=== PATIENT | male | born 1970 | race Caucasian/White ===

== ENCOUNTER 2025-02-08 22:55 | Emergency (ER) | payer OTHER, MEDICARE, SELFPAY ==
[2025-02-08] VITALS (7 sets, daily range): BP systolic 153; BP diastolic 82; PULSE 93–103; TEMP 36.3; O2SAT 96–100; BMI 44.3
--- NOTE | 2025-02-08 23:11 | ECG_ITS ---
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 Measurements Intervals [place] Rate: 100 P: 50 AK: 188 QRS: 84 QRSD: 104 T: -80 QT: 362 QTc: 419 Interpretive Statements 1120 Sinus tachycardia [address] depression 4664 Twave abnormality, possible inferolateral ischemia 9150 abnormal ECG No previous ECG available for comparison Electronically Signed On 02-09-2025 19:23:23 EDT by SHANNAN HORTON M.D.
--- NOTE | 2025-02-08 23:28 | ED_ITS ---
HPI - Chest Pain General Chief Complaint: Chest Pain Stated Complaint: CHEST PAIN Time Seen by Provider: 02/08/25 23:24 Source: patient Mode of arrival: Wheelchair Limitations: no limitations History of Present Illness HPI narrative: past history of IDDM CAD s/p stent placement and peritoneal dialysis. Developed chest pain around 7pm. Pain associated with nausea and dyspnea. Took NTG SL and chest pain improved. Still feels little short of breath. No weakness or abdominal pain Related Data Home Medications ?Medication ?Instructions ?Recorded ?Confirmed apixaban 5 mg tablet (Eliquis) mg 02/09/25 atorvastatin 80 mg tablet mg 02/09/25 buspirone 15 mg tablet mg 02/09/25 ferric citrate 210 mg iron tablet 02/09/25 (Auryxia) furosemide 80 mg tablet mg 02/09/25 hydralazine 50 mg tablet mg 02/09/25 meclizine 25 mg tablet mg 02/09/25 metoprolol succinate 100 mg mg PO 02/09/25 tablet,extended release 24 hr nitroglycerin 0.4 mg sublingual mg 02/09/25 tablet octreotide,microspheres 30 mg mg IM 02/09/25 intramuscular susp, extended release (Sandostatin [place]) Allergies Allergy/AdvReac Type Severity Reaction Status Date / Time ketorolac (From Toradol) Allergy Severe Unknown Verified 02/08/25 23:17 lisinopril AdvReac Mild Cough Verified 02/08/25 23:17 Review of Systems ROS Status of ROS 10 or more systems reviewed and unremark able except as noted in history and below [facility] Medical History (Updated 02/09/25 @ 10:19 by Jennyfer Gabriel RN) Coronary artery disease ?I25.10 - Atherosclerotic heart disease of [place] coronary artery without angina pectoris (ICD-10) Diabetes ?E11.9 - Type 2 diabetes mellitus without complications (ICD-10) Chronic kidney disease ?N18.9 - Chronic kidney disease, unspecified (ICD-10) Social History Little interest or pleasure in doing things: not at all Feeling down, depressed, or hopeless: not at all Exam Constitutional Vital Signs, click to edit/add: Last Vital Signs Temp 97.4 F L 02/08/25 23:05 Pulse 85 02/09/25 16:00 Resp 20 02/09/25 16:00 BP 123/75 02/09/25 11:12 Pulse Ox 98 02/09/25 11:12 O2 Del Method Room Air 02/09/25 11:12 O2 Flow Rate 2 02/09/25 00:53 Common normals: no apparent distress, average body habitus, oriented x3, no limitations, healthy appearing, alert and well nourished [facility] Common normals: normocephalic and head/scalp atraumatic Eye Common normals: PERRL, EOMs intact bilaterally and conjunctivae normal Respiratory Common normals: normal respiratory effort, no retractions, no use of accessory muscles and clear to auscultation bilaterally Cardio Common normals: regular rate, regular rhythm, S1 normal heart sound and S2 normal heart sound GI Common normals: Normal to inspection, nondistended, normoactive bowel sounds present and soft to palpation Extremity Common normals: normal to inspection and full ROM Neuro Common normals: oriented x3, CN's II-XII intact bilaterally and moves all extremities Psych Appearance: grossly normal Course Vital Signs Vital signs: Vital Signs Pulse Oximetry 96 02/08/25 23:03 Temperature 97.4 F L 02/08/25 23:05 Pulse Rate 85 02/09/25 16:00 Respiratory Rate 20 02/09/25 16:00 Blood Pressure 123/75 02/09/25 11:12 Pulse Oximetry 98 02/09/25 11:12 Oxygen Delivery Method Room Air 02/09/25 11:12 Oxygen Delivery Flow Rate 2 02/09/25 00:53 MDM - Chest Pain MDM Narrative Medical decision making narrative: patient with past history of CAD and risk factors to include diabetes and renal failure. Currently home peritoneal dialysis. Tonight developed chest pain associated with dyspnea and nausea. Took nitro SL and arrived with resolution of chest pain and nausea. Was still little short of breath. Admits he only perform his peritoneal dialysis 3 times yesterday instead of the usual 4 times because he did not feel well. cxray with mild-mod. vascular congestion. EKG NSR with 1mm ST depression inferior leads. creat 7.2 and first troponin 160. patient's BS 549. treated with 12U Novolog SQ. repeat troponin at 3 hr over 5000. Patient remains asymptomatic and is no longer feeling short of breath. Cardiology paged to arrange transfer for NSTEMI Lab Data Labs: Lab Results 02/08/25 02/09/2502/09/25 Range/Units 23:15 01:34 02:11 WBC 10.7 (4.0-11.0) 10^3/uL RBC 3.89 L (4.70-6.10) 10^6/uL Hgb 11.3 L (14.0-18.0) g/dL Hct 36.6 L (42.0-54.0) % MCV 94.1 H (80.0-94.0) fL MCH 29.0 (25.9-34.0) pg MCHC 30.9 (29.9-35.2) g/dL RDW 20.3 H (11.0-15.0) % Plt Count 239 (150-450) 10^3/uL MPV 10.0 (9.5-13.5) fL Seg Neuts % (Manual) 97.0 H (43.0-75.0) Lymphocytes % (Manual) 1.0 L (20.5-60.0) % Monocytes % (Manual) 1.0 L (1.7-12.0) % Eosinophils % (Manual) 1.0 (0.9-7.0) % Basophils % (Manual) 0.0 L (0.2-2.0) % Neutrophils # (Manual) 10.37 H (1.4-6.5) 10^3/uL Lymphocytes # (Manual) 0.10 L (1.20-3.80) 10^3/uL Monocytes # (Manual) 0.10 L (0.30-0.80) 10^3/uL Eosinophils # (Manual) 0.10 (0.00-0.70) 10^3/uL Basophils # (Manual) 0.00 (0.00-0.10) 10^3/uL PT 10.9 (9.0-11.6) sec INR 1.03 APTT 33.8 (22.3-36.2) sec PTT (Heparin Absorb) (43.5-61.5) sec Sodium 132 L (136-145) mmol/L Potassium 4.3 (3.5-5.1) mmol/L Chloride 95 L (98-107) mmol/L Carbon Dioxide 23.1 (21.0-32.0) mmol/L Anion Gap 18.2 BUN 57.0 H (7.0-18.0) mg/dL Creatinine 7.02 H* (0.70-1.30) mg/dL Est GFR ( Amer) 10 L (>=60 mL/min/1.73m^2) Est GFR (Non-Af Amer) 8 L (>=60 mL/min/1.73m^2) BUN/Creatinine Ratio 8.1 Glucose 549 H* (74-106) mg/dL Calcium 8.9 (8.5-10.1) mg/dL Troponin I High Sens 160.1 H* 5583.4 H* (4.0-76.1) pg/mL POC Glucose 418 H (74-106) mg/dL 02/09/25 02/09/25 02/09/25 Range/Units 04:27 08:14 10:14 WBC (4.0-11.0) 10^3/uL RBC (4.70-6.10) 10^6/uL Hgb (14.0-18.0) g/dL Hct (42.0-54.0) % MCV (80.0-94.0) fL MCH (25.9-34.0) pg MCHC (29.9-35.2) g/dL RDW (11.0-15.0) % Plt Count (150-450) 10^3/uL MPV (9.5-13.5) fL Seg Neuts % (Manual) (43.0-75.0) Lymphocytes % (Manual) (20.5-60.0) % Monocytes % (Manual) (1.7-12.0) % Eosinophils % (Manual) (0.9-7.0) % Basophils % (Manual) (0.2-2.0) % Neutrophils # (Manual) (1.4-6.5) 10^3/uL Lymphocytes # (Manual) (1.20-3.80) 10^3/uL Monocytes # (Manual) (0.30-0.80) 10^3/uL Eosinophils # (Manual) (0.00-0.70) 10^3/uL Basophils # (Manual) (0.00-0.10) 10^3/uL PT (9.0-11.6) sec INR APTT (22.3-36.2) sec PTT (Heparin Absorb) 38.0 L* (43.5-61.5) sec Sodium (136-145) mmol/L Potassium (3.5-5.1) mmol/L Chloride (98-107) mmol/L Carbon Dioxide (21.0-32.0) mmol/L Anion Gap BUN (7.0-18.0) mg/dL Creatinine (0.70-1.30) mg/dL Est GFR ( Amer) (>=60 mL/min/1.73m^2) Est GFR (Non-Af Amer) (>=60 mL/min/1.73m^2) BUN/Creatinine Ratio Glucose (74-106) mg/dL Calcium (8.5-10.1) mg/dL Troponin I High Sens (4.0-76.1) pg/mL POC Glucose 239 H 65 L (74-106) mg/dL 02/09/25 Range/Units 15:45 WBC (4.0-11.0) 10^3/uL RBC (4.70-6.10) 10^6/uL Hgb (14.0-18.0) g/dL Hct (42.0-54.0) % MCV (80.0-94.0) fL MCH (25.9-34.0) pg MCHC (29.9-35.2) g/dL RDW (11.0-15.0) % Plt Count (150-450) 10^3/uL MPV (9.5-13.5) fL Seg Neuts % (Manual) (43.0-75.0) Lymphocytes % (Manual) (20.5-60.0) % Monocytes % (Manual) (1.7-12.0) % Eosinophils % (Manual) (0.9-7.0) % Basophils % (Manual) (0.2-2.0) % Neutrophils # (Manual) (1.4-6.5) 10^3/uL Lymphocytes # (Manual) (1.20-3.80) 10^3/uL Monocytes # (Manual) (0.30-0.80) 10^3/uL Eosinophils # (Manual) (0.00-0.70) 10^3/uL Basophils # (Manual) (0.00-0.10) 10^3/uL PT (9.0-11.6) sec INR APTT (22.3-36.2) sec PTT (Heparin Absorb) 36.7 L* (43.5-61.5) sec Sodium (136-145) mmol/L Potassium (3.5-5.1) mmol/L Chloride (98-107) mmol/L Carbon Dioxide (21.0-32.0) mmol/L Anion Gap BUN (7.0-18.0) mg/dL Creatinine (0.70-1.30) mg/dL Est GFR ( Amer) (>=60 mL/min/1.73m^2) Est GFR (Non-Af Amer) (>=60 mL/min/1.73m^2) BUN/Creatinine Ratio Glucose (74-106) mg/dL Calcium (8.5-10.1) mg/dL Troponin I High Sens (4.0-76.1) pg/mL POC Glucose (74-106) mg/dL Critical Care Time Critical Care Time Total Critical Care Time: 45 Discharge Plan Discharge Chief Complaint: Chest Pain Clinical Impression: Non-ST elevation [place] (NSTEMI), CHF (congestive heart failure), Acute hyperglycemia Patient Disposition: [facility] Discharge Date/Time: 02/09/25 16:31
[2025-02-08 23:45] LABS: Hematocrit 36.6 % (42.0-54.0); Hemoglobin 11.3 g/dL (14.0-18.0); Mean Corpuscular HGB Conc 30.9 g/dL (29.9-35.2); Mean Corpuscular Volume 94.1 fL (80.0-94.0); Platelet Count 239 10^3/uL (150-450); Red Blood Count 3.89 10^6/uL (4.70-6.10); Red Cell Distribution Width 20.3 % (11.0-15.0); White Blood Count 10.7 10^3/uL (4.0-11.0)
[2025-02-09] VITALS (43 sets, daily range): BP systolic 119–162; BP diastolic 65–90; PULSE 70–98; O2SAT 95–100
[2025-02-09 00:12] LABS: Segmented Neut Absolute Manual 10.37 10^3/uL (1.4-6.5)
[2025-02-09 00:14] LABS: Anion Gap 18.2; BUN Creatinine Ratio 8.1; Calcium 8.9 mg/dL (8.5-10.1); Carbon Dioxide 23.1 mmol/L (21.0-32.0); Chloride 95 mmol/L (98-107); Estimated GFR (African America 10 (>=60 mL/min/1.73m^2); Estimated GFR (Non-African Ame 8 (>=60 mL/min/1.73m^2); Potassium 4.3 mmol/L (3.5-5.1); Sodium 132 mmol/L (136-145)
[2025-02-09 00:17] LABS: Glucose 549 mg/dL (74-106); Troponin I High Sensitivity 160.1 pg/mL (4.0-76.1)
[2025-02-09] MEDS: lidocaine HCL 15 ML, MAG HYDROX/ALUMINUM HYD/SIMETH 30 ML, HYOSCYAMINE SULFATE 0.25 MG PO (00:35)
[2025-02-09] MEDS: INSULIN REGULAR, HUMAN (100 UNIT/ML) 10 ML MDV 12 UNIT SUBQ (00:35)
--- NOTE | 2025-02-09 00:54 | PC.NURSE ---
Patient is put on 2L oxygen per his request. His spo2 was normal at 96% on room air, however he was feeling short of breath. He states that he wears a CPAP at night and he thinks that is why he is feeling SOB now, because he would normally be on his CPAP at home. He requested to be put on a CPAP here so he could lay down, I tell him that we do not have them available. He then requested to be put on Bipap, I told him that we used Bipap only when it is warranted.
[2025-02-09 01:36] LABS: Glucometer 418 mg/dL (74-106)
[2025-02-09 02:45] LABS: Troponin I High Sensitivity 5583.4 pg/mL (4.0-76.1)
--- NOTE | 2025-02-09 02:48 | PC.NURSE ---
Lv from lab dept called with a 2 trop result of 5,583.4, Dr Park and this patient's nurse informed of this result
[2025-02-09] MEDS: HEPARIN SODIUM,PORCINE/D5W 25,000 UNIT/500 ML IV.SOLN 20 UNIT IV (04:02)
[2025-02-09 04:05] LABS: INR 1.03; Partial Thromboplastin Time 33.8 sec (22.3-36.2); Prothrombin Time 10.9 sec (9.0-11.6)
[2025-02-09] MEDS: HEPARIN SODIUM (PORCINE) 5,000 UNIT/ML VIAL 4000 UNIT IV (04:06)
[2025-02-09 04:29] LABS: Glucometer 239 mg/dL (74-106)
[2025-02-09 08:15] LABS: Glucometer 65 mg/dL (74-106)
--- NOTE | 2025-02-09 08:21 | PC.NURSE ---
Patient feels blood sugar is low, FSBS is 65. Dr. Schwab notified. Diet order obtained. Patient drinking OJ and eating PB crackers.
[2025-02-09 16:08] LABS: PTT Heparin Monitor 36.7 sec (43.5-61.5)
--- NOTE | 2025-02-09 16:14 | PC.NURSE ---
[facility] arrives for transport.
== END 2025-02-09 16:31 | disposition short-term general hospital (02) ==
PROVIDERS: Emergency Medicine; Emergency Provider Internal Medicine; PCP Internal Medicine
DX: I21.4 Non-ST elevation (NSTEMI) myocardial infarction (principal); E11.65 Type 2 diabetes mellitus with hyperglycemia; Z99.2 Dependence on renal dialysis; I25.10 Atherosclerotic heart disease of native coronary artery without angina pectoris; Z95.5 Presence of coronary angioplasty implant and graft; R06.00 Dyspnea, unspecified; R06.02 Shortness of breath; E11.22 Type 2 diabetes mellitus with diabetic chronic kidney disease; N18.6 End stage renal disease; I50.9 Heart failure, unspecified
CPT/HCPCS: 36415; 71045; 80048; 84484; 85007; 85027; 85610; 85730; 93005; 96365; 96366; 96376; 99285; J1644; J1817

== ENCOUNTER 2025-03-15 13:47 | Outpatient (RCR) | payer OTHER, MEDICARE, SELFPAY | END 2025-03-16 10:21 | disposition home or self-care (01) | LOC: CR 13:47 | PROVIDERS: PCP Internal Medicine | DX: I25.10 Atherosclerotic heart disease of native coronary artery without angina pectoris (principal) ==

== ENCOUNTER 2025-10-01 16:35 | Outpatient (OUT) | payer OTHER, MEDICARE, SELFPAY ==
--- OUTSIDE RECORDS SUMMARY | 2025-10-01 16:49 | XMS_ITS | CCD ---
Author Organization [facility] Care Team Providers Care Infectious Waste Technician Name Role Phone Back, Lion Primary Care Provider [phone] RADHA BURTON Attending Unavailable BACK, LION Primary Care Unavailable RADHA BURTON Attending Unavailable BACK, LION Primary Care Unavailable Back , Lion Primary Care Provider [phone] Lion Carlson MD Primary Care Provider [phone] Marcial Miller MDapna Unavailable [phone] BACK, LION Primary Care Unavailable BRIAN AREVALO NDavid Attending Unavailable BACK, LION Primary Care Unavailable BRIAN AREVALO Attending Unavailable KAMADANA, GRACIE Referring Unavailable GABEADANA, GRACIE Admitting Unavailable BACK, LION Primary Care Unavailable BRIAN AREVALO Attending Unavailable ALI, MAK BRINDA Referring Unavailable BACK, LION Primary Care Unavailable ALI, MAK BRINDA Referring Unavailable BACK, LION Primary Care Unavailable ALI, MAK BRINDA Referring Unavailable BACK, LION Primary Care Unavailable AL-HO, ADNAN R Referring Unavailable BACK, LION Primary Care Unavailable ALI, MAK BRINDA Referring Unavailable BACK, LION Primary Care Unavailable ALI, MAK BRINDA Referring Unavailable BACK, LION Primary Care Unavailable AL-HO, ADNAN R Referring Unavailable BACK, LION Primary Care Unavailable AL-HO, ADNAN R Referring Unavailable BACK, LION Primary Care Unavailable AL-HO, ADNAN R Referring Unavailable BACK, LION Primary Care Unavailable AL-HO, ADNAN R Referring Unavailable BACK, LION Primary Care Unavailable ABDIRIZAK ORO Attending Unavailable ABDIRIZAK ORO Referring Unavailable BACK, LION Primary Care Unavailable AL-HO, ADNAN R Referring Unavailable BACK, LION Primary Care Unavailable BACK, LION Primary Care Unavailable AL-HO, ADNAN R Referring Unavailable BACK, LION Referring Unavailable BACK, LION Primary Care Unavailable BACK, LION Primary Care Unavailable AL-HO, ADNAN R Referring Unavailable ABDIRIZAK ORO Attending Unavailable GABRIELLA, CHARLES Referring Unavailable BACK, LION Primary Care Unavailable BACK, LION Primary Care Unavailable AL-HO, ADNAN R Referring Unavailable BACK, LION Primary Care Unavailable AL-HO, ADNAN R Referring Unavailable BACK, LION Primary Care Unavailable GABRIELLA, CHARLES Referring Unavailable AL-HO, ADNAN R Referring Unavailable BACK, LION Primary Care Unavailable BACK, LION Primary Care Unavailable AL-HO, ADNAN R Referring Unavailable MAK BEY Attending Unavailable ALI, MAK BRINDA Admitting Unavailable BACK, LION Primary Care Unavailable PEARL THEODORE Referring Unavailable ROHININALINI Oliva Consulting Unavailable CATARINA XENIA Consulting Unavailable SANYA STARKS Consulting Unavailable AL-HO, ADNAN R Consulting Unavailable Back Lion RICHARDSON Primary Care Provider Angela RICHARDSON, Gracie Unavailable MELBA SINGH Attending Unavailable MELBA SINGH Admitting Unavailable KAMADANA, GRACIE Referring Unavailable [facility] Consulting Unavai lable BACK, LION Primary Care Unavailable AKKINA, DELROY SOMESWARA Consulting Unavaila ble DOMENICO SMITHSEIN SARAH SOMERS Consulting Unava ilable BLAKE RÍOS ABERRA Consulting Unavail able JOSE DUBON Consulting Unavailab le Allergies Allergy ClassificationReported Allergen(s)Allergy TypeDate of OnsetReaction(s) FacilityAngiotensin Converting Enzyme (KWAKU) Inhibitors (5 sources)LisinoprilDrug Igxqzpn78-67-5871Vckyn (See Comments), [facility] HealthNSAIDs (5 sources)KetorolacDrug Qukjuhv67-77-1596Tifxc (See Comments)[facility] [place] (20 sources)KetorolacDrug Ejjnmjq77-43-0404Ibmkj (See Comments)[facility] [place]- [place], [place] (20 sources)Lisinopril; Translations: [LISINOPRIL]Drug Kijwayp19-89-5023Rgkzq (See Comments), [place], [place] (11 sources)Ketorolac; Translations: [KETOROLAC]Drug Ebwptmb27-27-4105Bhsfg (See Comments), Unknown[facility] Medications Current Medications MedicationDrug Class(es)DatesSig (Normalized)Sig (Original)Acetaminophen (11 sources)Start: 16-26-2333llpszeiecaxmx (TYLENOL) tablet 650 mgStart: 06-15-2024 End: 42-03-4362sjfw 1 tablet by mouth every four hours as needed for pain and gjkbefqt415 mg, Oral, Every 4 hours PRN, mild pain, fever 100.4 F or greater, headaches, Starting on Ladonna 06/15/24 at 1715Start: 70-65-6116keuy 650 mg by mouth every four hours as needed for pain, then take 4000 mg by mouth every twenty-fo ur hours as needed for ylej554 mg, Oral, EVERY 4 HOURS PRN, Pain Mild (1-3), Fever, Fever >100.5 F (38 C), Starting 10/02/19 at 1347 Maximum dose of acetaminophen is 4000 mg from all sources in 24 hours.Start: 65-91-5276098 mg, Oral, EVERY 4 HOURS PRN, Pain Mild (1-3), Pain Moderate (4-6), Fever, For temp greater hzsa948.5 F (38 C), Starting Ladonna 09/28/19 at 1245 Maximum dose of acetaminophen is 4000 mg from all sources in 24 hours.Start: 09-04-2019 acetaminophen (TYLENOL) tablet 650 mgtake 2 tablets by mouth every six hours as needed for painacetaminophen (TYLENOL) 500 MG tablet Take 2 (two) tablets (1,000 mg total) by mouth every 6 (six) hours as needed for pain . Suspended acetaminophen 325 mg / HYDROcodone bitartrate 5 mg oral tablet (3 sources)Opioid AgonistStart: 09-09-2019 End: 63-35-3014pmtl 1 tablet by mouth every six hours as needed for pain HYDROcodone-acetaminophen (NORCO) 5-325 MG per tablet Indications: Hematoma Take 1 tablet by mouth every 6 hours as needed (sever pain) for up to 3 days. 12 tablet 0 09/09/2019 09/12/2019 ActiveStart: 36-65-5807HJEPDrpacep-acetaminophen (NORCO) 5-325 MG per tablet 1 tabletamoxicillin 500 mg oral tablet (20 sources)Penicillin-class AntibacterialStart: 36-91-3961pioa 1 tablet by mouth twice dailyamoxicillin (AMOXIL) 500 MG tablet Indications: Acute bacterial sinusitis Take 1 tablet by mouth 2 times daily 20 tablet 0 09/02/2023 Active Start: 65-17-8409xfni 1 tablet by mouth at bedtimeAmoxicillin 500 MG TABS Indications: Benign essential HTN Take 1 tablet by mouth in the morning, atnoon, and at bedtime 30 tablet 0 02/17/2022 ActiveStart: 10-20-2019 End: 14-54-8190vduu 1 tablet by mouth twice dailyAmoxicillin 500 MG TABS Indications: Acute bacterial sinusitis Take 1 tablet by mouth 2 times daily20 tablet 0 10/20/2019 01/12/2020 Discontinued (Therapy completed)apixaban 5 mg oral tablet (20 sources)Factor Xa InhibitorStart: 05-11-2024 End: 74-12-0947carp 1 tablet by mouth twice dailyELIQUIS 5 MG TABS tablet Indications: Coronary artery disease involving [place] coronary artery of [place] heart without angina pectoris , Other pulmonary embolism without acute cor pulmonale, unspecified chronicity (HCC) TAKE ONE TABLET BY MOUTH TWICE A DAY 180 tablet 1 07/09/2025 ActiveStart: 57-33-5386Eabqnzt 5 mg Tab 1 (one) tablet (5 mg total) daily . 02/14/2024 ActiveStart: 40-50-1793lqmt 1 tablet by mouth twice dailyapixaban (ELIQUIS) 5 MG TABS tablet Indications: Coronary artery disease involving [place] coronary artery of [place] heart without angina pectoris , Other pulmonary embolism without acute cor pulmonale, unspecified chronicity (HCC) Take 1 tablet by mouth 2 times daily 180 tablet 1 11/16/2023 ActiveStart: 45-38-8406shpa 1 tablet by mouth twice dailyapixaban (ELIQUIS) 5 MG TABS tablet Indications: Coronary artery disease involving [place] coronary artery of [place] heart without angina pectoris , Other pulmonary embolism without acute cor pulmonale, unspecified chronicity (HCC) Take 1 tablet by mouth 2 times daily 180 tablet 1 05/11/2023 ActiveStart: 34-93-0676rcdt 1 tablet by mouth twice daily apixaban (ELIQUIS) 5 MG TABS tablet Indications: Coronary artery disease involving [place] coronary artery of [place] heart without angina pectoris , Other pulmonary embolism without acute cor pulmonale, unspecified chronicity (HCC) Take 1 tablet by mouth 2 times daily 180 tablet 1 11/19/2022 ActiveStart: 57-42-2101wsaj 1 tablet by mouth twice dailyapixaban (ELIQUIS) 5 MG TABS tablet Indications: Coronary artery disease involving [place] coronary artery of [place] heart without angina pectoris , Other pulmonary embolism without acute cor pulmonale, unspecified chronicity (HCC) Take 1 tablet by mouth 2 times daily 180 tablet 1 05/21/2022 ActiveStart: 10-94-2279fedi 1 tablet by mouth twice daily apixaban (ELIQUIS) 5 MG TABS tablet Indications: Coronary artery disease involving [place] coronary artery of [place] heart without angina pectoris , Other pulmonary embolism without acute cor pulmonale, unspecified chronicity (HCC) Take 1 tablet by mouth 2 times daily 180 tablet 1 11/24/2021 ActiveStart: 20-24-9915frzg 1 tablet by mouth twice dailyapixaban (ELIQUIS) 5 MG TABS tablet Indications: Coronary artery disease involving [place] coronary artery of [place] heart without angina pectoris , Other pulmonary embolism without acute cor pulmonale, unspecified chronicity (HCC) Take 1 tablet by mouth 2 times daily 180 tablet 1 08/25/2021 ActiveStart: 22-62-9052gkwc 1 tablet by mouth twice daily apixaban (ELIQUIS) 5 MG TABS tablet Indications: Coronary artery disease involving [place] coronary artery of [place] heart without angina pectoris , Other pulmonary embolism without acute cor pulmonale, unspecified chronicity (HCC) Take 1 tablet by mouth 2 times daily 180 tablet 1 02/24/2021 ActiveStart: 79-85-1221uupd 1 tablet by mouth twice dailyELIQUIS 5 MG TABS tablet TAKE 1 TABLET BY MOUTH 2 TIMES A DAY 180 tablet 1 01/10/2021 ActiveStart: 10-08-2020 take 1 tablet by mouth twice dailyapixaban (ELIQUIS) 5 MG TABS tablet Take 1 tablet by mouth 2 times daily 180 tablet 1 10/08/2020 ActiveStart: 04-11-2020 take 1 tablet by mouth twice dailyapixaban (ELIQUIS) 5 MG TABS tablet Take 1 tablet by mouth 2 times daily 180 tablet 1 04/11/2020 ActiveStart: 09-08-2019 End: 89-75-2924uflc 2 tablets by mouth twice daily, then take 1 tablet by mouth twice dailyapixaban (ELIQUIS STARTER PACK) 5 MG TABS tablet Take 10 mg (2 tablets) orally twice daily for 7 days, then take 5 mg (1 tablet) orally twice daily thereafter. 74 tablet 0 09/08/2019 09/08/2019 Discontinued (Stop Taking at Discharge)Start: 09-08-2019 End: 74-47-6541eajx 1 tablet by mouth twice dailyapixaban (ELIQUIS) 5 MG TABS tablet Take 1 tablet by mouth 2 times daily 180 tablet 1 09/08/2019 Active aspirin 81 mg delayed release oral tablet (20 sources)Platelet Aggregation Inhibitor, Nonsteroidal Anti-inflammatory Drug Start: 02-14-2025 End: 65-03-1730ifow 1 tablet by mouth once dailyaspirin 81 MG EC tablet Take 1 tablet by mouth daily for 6 doses 30 tablet 3 02/15/2025 ActiveStart: 09-30-2019 End: 53-28-9203qihy 1 tablet by mouth once dailyaspirin 81 MG chewable tablet Take 1 tablet by mouth daily 30 tablet 3 10/08/2019 ActiveStart: 09-29-2019 End: 40-06-8256773 mg, Oral, DAILY, First dose on Wed09/29/19 at 1900 Please give ASA dose upon admission if not done in ER then DAILYStart: 09-28-2019 End: 33-76-7767badjwto chewable tablet 324 mgatorvastatin 80 mg oral tablet (20 sources)HMG-CoA Reductase InhibitorStart: 06-15-2024 End: 46-20-6966ythj 80 mg by mouth once daily80 mg, Oral, Nightly, First dose on Ladonna 06/15/24 at 2200Start: 33-75-4396ryze 1 tablet by mouth once daily atorvastatin (LIPITOR) 80 MG tablet Indications: Mixed hyperlipidemia TAKE ONE TABLET BY MOUTH ONCEA DAY 90 tablet 1 05/10/2025 ActiveStart: 47-69-2200jtnk 1 tablet by mouth once dailyatorvastatin (LIPITOR) 80 MG tablet Indications: Mixed hyperlipidemia TAKE 1 TABLET BY MOUTH ONE TIME DAILY 90 tablet 1 04/19/2023 ActiveStart: 45-79-0799xhsf 1 tablet by mouth once dailyatorvastatin (LIPITOR) 80 MG tablet Indications: Mixed hyperlipidemia TAKE 1 TABLET BY MOUTH ONE TIME DAILY 90 tablet 1 10/23/2022 ActiveStart: 73-57-2541qwlq 1 tablet by mouth once dailyatorvastatin (LIPITOR) 80 MG tablet Indications: Mixed hyperlipidemia TAKE 1 TABLET BY MOUTH ONE TIME DAILY 90 tablet 1 04/23/2022 ActiveStart: 10-28-2021 take 1 tablet by mouth once dailyatorvastatin (LIPITOR) 80 MG tablet Indications: Mixed hyperlipidemia TAKE 1 TABLET BY MOUTH ONE TIME DAILY 90 tablet 1 10/28/2021 ActiveStart: 89-43-2052hewj 1 tablet by mouth once daily atorvastatin (LIPITOR) 80 MG tablet Indications: Mixed hyperlipidemia TAKE 1 TABLET BY MOUTH ONE TIME DAILY 90 tablet 1 04/24/2021 ActiveStart: 10-31-2020 take 1 tablet by mouth once dailyatorvastatin (LIPITOR) 80 MG tablet Indications: Mixed hyperlipidemia TAKE 1 TABLET BY MOUTH ONE TIME DAILY 90 tablet 1 10/31/2020 ActiveStart: 44-05-1369ujhi 1 tablet by mouth once daily atorvastatin (LIPITOR) 80 MG tablet Indications: Mixed hyperlipidemia TAKE 1 TABLET BY MOUTH ONE TIME DAILY 90 tablet 1 05/13/2020 ActiveStart: 09-29-2019 take 80 mg by mouth once daily80 mg, Oral, NIGHTLY, First dose on Wed09/29/19 at 2100Start: 05-11-2019 End: 85-44-8159iamj 1 tablet by mouth once dailyatorvastatin (LIPITOR) 80 MG tablet Indications: Mixed hyperlipidemia TAKE 1 TABLET BY MOUTH ONE TIME DAILY 90 tablet 1 11/20/2019 Activeazithromycin 250 mg oral tablet (1 source)Macrolide AntimicrobialStart: 10-31-2020 End: 27-60-5529hqmw 1 tablet by mouth once daily, then take 2-5 tablets by mouth azithromycin (ZITHROMAX) 250 MG tablet Indications: Acute bacterial sinusitis Take 1 tablet by mouth See Admin Instructions for 5 days 500mg on day 1 followed by 250mg on days 2 - 5 6 tablet 0 10/31/2020 11/05/2020 Activebetamethasone 0.5 mg/ml / clotrimazole 10 mg/ml topical cream (20 sources)Azole Antifungal, CorticosteroidStart: 18-24-8456dchtbxaxnzbj- betamethasone (LOTRISONE) 1-0.05 % cream Apply topically 2 times daily. 45 g 09/22/2023 ActivebusPIRone hydrochloride 15 mg oral tablet (20 sources)Start: 98-06-0906xujt 1 tablet by mouth three times daily15 mg, Oral, 3 TIMES DAILY, First dose on Wed02/09/25 at 2100, Until Discontinued, This 15 mg tablet can be split into thirds (5 mg) or halves (7.5 mg) based on the ordered dose.Start: 06-15-2024 End: 21-45-9595jofb 15 mg by mouth every eight hours15 mg, Oral, Every 8 hours scheduled, First dose on Wed06/15/24 at 2200Start: 79-12-9569nmjk 1 tablet by mouth three times dailybusPIRone (BUSPAR) 15 MG tablet Indications: Generalized anxiety disorder TAKE ONE TABLET BY MOUTH THREE TIMES A DAY 270 tablet 1 04/10/2025 ActiveStart: 02-32-2050bhgj 1 tablet by mouth three times daily busPIRone (BUSPAR) 15 MG tablet Indications: Generalized anxiety disorder TAKE ONE TABLET BY MOUTH THREE TIMES A DAY 270 tablet 1 04/19/2023 ActiveStart: 52-90-4120pfve 1 tablet by mouth three times dailybusPIRone (BUSPAR) 15 MG tablet Indications: Generalized anxiety disorder TAKE ONE TABLET BY MOUTH THREE TIMES A DAY 270 tablet 1 10/23/2022 ActiveStart: 01-20-9079gcax 1 tablet by mouth three times dailybusPIRone (BUSPAR) 15 MG tablet Indications: Generalized anxiety disorder TAKE ONE TABLET BY MOUTH THREE TIMES A DAY 270 tablet 1 04/23/2022 ActiveStart: 06-04-9029jyhp 1 tablet by mouth three times daily busPIRone (BUSPAR) 15 MG tablet Indications: Generalized anxiety disorder TAKE ONE TABLET BY MOUTH THREE TIMES A DAY 270 tablet 1 10/28/2021 ActiveStart: 19-41-2100ehgt 1 tablet by mouth three times dailybusPIRone (BUSPAR) 15 MG tablet Indications: Generalized anxiety disorder TAKE ONE TABLET BY MOUTH THREE TIMES A DAY 270 tablet 1 04/24/2021 ActiveStart: 65-01-1981tqah 1 tablet by mouth three times dailybusPIRone (BUSPAR) 15 MG tablet Indications: Generalized anxiety disorder TAKE ONE TABLET BY MOUTH THREE TIMES A DAY 270 tablet 1 10/31/2020 ActiveStart: 74-18-6591buzo 1 tablet by mouth three times daily busPIRone (BUSPAR) 15 MG tablet Indications: Generalized anxiety disorder TAKE ONE TABLET BY MOUTH THREE TIMES A DAY 270 tablet 1 05/23/2020 ActiveStart: 99-85-5022ghwm 1 tablet by mouth three times daily15 mg, Oral, 3 TIMES DAILY, First dose on Ladonna 09/28/19 at 1400 This 15 mg tablet can be split into thirds (5 mg) or halves (7.5 mg) based on the ordered dose.Start: 08-17-2019 End: 40-00-8651obhu 1 tablet by mouth three times dailybusPIRone (BUSPAR) 15 MG tablet Indications: Generalized anxiety disorder TAKE ONE TABLET BY MOUTH THREE TIMES A DAY 270 tablet 1 11/20/2019 ActiveStart: 35-00-3693tset 1 tablet by mouth three times dailybusPIRone (BUSPAR) 15 MG tablet Indications: Generalized anxiety disorder TAKE ONE TABLET BY MOUTH THREE TIMES A DAY 270 tablet 0 06/26/2019 Activecalcitriol 0.0005 mg oral capsule (17 sources)Vitamin D3 AnalogStart: 63-26-5897kofadlSHNA (ROCALTROL) 0.5 MCG capsule 10/02/2024 ActiveceFAZolin (ANCEF) 1,000 mg in sterile water 10 mL IV syringe (1 source)Start: 02-12-2025 End: 51,000 mg, IntraVENous, EVERY 24 HOURS, First dose on Wed02/12/25 at 1900, For 3 days, Administer over 5 mins. Reconstitute 1 g vial with 10 mL Sterile Water. Withdraw entire contents.cholecalciferol 0.05 mg oral tablet (20 sources)Vitamin DStart: 90-71-0573Mftjsjpvanmzwdm 50 MCG (2000 UT) TABS Take 1 tablet by mouth 07/14/2024 ActiveStart: 41-73-3649Uxthcze D (CHOLECALCIFEROL) tablet 10,000 Unitstake 5000 [IU] by mouth once dailyCholecalciferol (VITAMIN D3 PO) Take 5,000 Units by mouth daily 0 Activetake 08935 [IU] by mouth once dailyCholecalciferol (VITAMIN D3 PO) Take 10,000 Units by mouth daily 0 Active take 76784 [IU] by mouth once dailyCholecalciferol (VITAMIN D3 PO) Take 10,000 Units by mouth daily 0 Activeclopidogrel 75 mg oral tablet (20 sources)P2Y12 Platelet InhibitorStart: 36-02-8568agfw 75 mg by mouth once daily75 mg, Oral, DAILY, First dose on Wed02/15/25 at 0900, Until Discontinued Start: 01-12-7920afen 1 dose by mouth xbnr042 mg, Oral, ONCE, 1 dose, On Wed02/14/25 at 1315Start: 03-25-2023 End: 66-00-3614kcey 1 tablet by mouth once daily in the morningclopidogreL (PLAVIX) 75 mg tablet Take 1 (one) tablet (75 mg total) by mouth every morning . 30 tablet 11 06/22/2024 10:15 AM EDT 06/21/2024 Suspendeddocusate sodium 50 mg / sennosides, custodial 8.6 mg oral tablet (20 sources)Start: 48-29-0488mrwb 2 tablets by mouth twice daily as needed for constipationsennosides-docusate sodium (SENOKOT-S) 8.6-50 MG tablet Take 2 tablets by mouth 2 times daily as needed for Constipation 60 tablet 10/07/2019 ActiveStart: 45-28-2169qiwmuhmkgm-docusate sodium (SENOKOT-S) 8.6-50 MG tablet 2 tabletDULoxetine 60 mg delayed release oral capsule (20 sources)Serotonin and Norepinephrine Reuptake InhibitorStart: 25-28-2567kwio 1 capsule by mouth once daily60 mg, Oral, DAILY, First dose on Wed02/13/25 at 1915, Until Discontinued, Do not crush or break. May add contents of capsule to apple juice or apple sauce, but not chocolate.Start: 10-22-2023 End: 01-92-8681mtye 1 capsule by mouth once dailyDULoxetine (CYMBALTA) 60 MG extended release capsule Indications: Depression with anxiety TAKE ONE CAPSULE BY MOUTH ONCE A DAY 90 capsule 1 05/10/2025 ActiveStart: 85-93-2826gdml 1 capsule by mouth once dailyDULoxetine (CYMBALTA) 60 MG extended release capsule Indications: Depression with anxiety TAKE ONE CAPSULE BY MOUTH ONE TIME DAILY 90 capsule 1 04/19/2023 ActiveStart: 26-55-5432zvbb 1 capsule by mouth once daily DULoxetine (CYMBALTA) 60 MG extended release capsule Indications: Depression with anxiety TAKE ONE CAPSULE BY MOUTH ONE TIME DAILY 90 capsule 1 10/23/2022 ActiveStart: 03-48-0492qota 1 capsule by mouth once dailyDULoxetine (CYMBALTA) 60 MG extended release capsule Indications: Depression with anxiety TAKE ONE C APSULE BY MOUTH ONE TIME DAILY 90 capsule 1 04/23/2022 ActiveStart: 10-28-2021 take 1 capsule by mouth once dailyDULoxetine (CYMBALTA) 60 MG extended release capsule Indications: Depression with anxiety TAKE ONE CAPSULE BY MOUTH ONE TIME DAILY 90 capsule 1 10/28/2021 ActiveStart: 44-63-3704lziq 1 capsule by mouth once dailyDULoxetine (CYMBALTA) 60 MG extended release capsule Indications: Depression with anxiety TAKE ONE CAPSULE BY MOUTH ONE TIME DAILY 90 capsule 1 04/24/2021 ActiveStart: 35-69-4911ftxc 1 capsule by mouth once dailyDULoxetine (CYMBALTA) 60 MG extended release capsule Indications: Depression with anxiety TAKE ONE CAPSULE BY MOUTH ONE TIME DAILY 30 capsule 0 01/16/2021 ActiveStart: 32-49-3538ales 1 capsule by mouth once dailyDULoxetine (CYMBALTA) 60 MG extended release capsule Indications: Depression with anxiety TAKE ONE CAPSULE BY MOUTH ONE TIME DAILY 90 capsule 1 10/08/2020 ActiveStart: 29-97-6025obcf 1 capsule by mouth once dailyDULoxetine (CYMBALTA) 60 MG extended release capsule Indications: Depression with anxiety TAKE ONE CAPSULE BY MOUTH ONE TIME DAILY 90 capsule 1 04/11/2020 ActiveStart: 11-07-8477byel 1 capsule by mouth once daily DULoxetine (CYMBALTA) 60 MG extended release capsule Indications: Depression with anxiety TAKE ONE CAPSULE BY MOUTH ONE TIME DAILY 90 capsule 1 10/16/2019 ActiveStart: 50-18-9867iikg 1 capsule by mouth once daily60 mg, Oral, DAILY, First dose on Wed09/29/19 at 1900 Do not crush or break. May add contents of ca psule to apple juice or apple sauce, but not chocolate.Start: 00-64-3604jdem 1 capsule by mouth once daily60 mg, Oral, DAILY, First dose on 09/04/19 at 1145 Do not crush or break. May add contents of capsule to apple juice or apple sauce, but not chocolate.Start: 50-41-9786bcds 1 capsule by mouth once daily DULoxetine (CYMBALTA) 60 MG extended release capsule Indications: Depression with anxiety TAKE 1 CAPSULE BY MOUTH ONE TIME A DAY 90 capsule 1 04/11/2019 Activeepoetin santino 86074 unt/ml injectable solution (16 sources)Erythropoiesis-stimulating Agentepoetin santino (EPOGEN;PROCRIT) 69255 UNIT/ML injection Inject 1 mL into the skin Every Wednesday, Wednesday, and Wednesday Activeergocalciferol 1.25 mg oral capsule (20 sources)Provitamin D2 CompoundStart: 01-30-2021 End: 83-11-6157blie 1 capsule by mouth every weekvitamin D (ERGOCALCIFEROL) 1.25 MG (07278 UT) CAPS capsule Indications: Vitamin D deficiency Take 1capsule by mouth once a week 12 capsule 1 01/30/2021 ActiveStart: 76-94-5816jgbc 37387 [IU] by mouth every week50,000 Units, Oral, WEEKLY, First dose on Ladonna 10/05/19 at 0900Start: 03-06-2019 End: 79-20-8347nmoy 1 capsule by mouth every weekvitamin D (ERGOCALCIFEROL) 90555 units CAPS capsule Indications: Vitamin D deficiency Take 1 capsule by mouth once a week 12 capsule 1 03/06/2019 09/29/2019 Discontinued (DISCONTINUED BY ANOTHER CLINICIAN)take 1 capsule by mouth once dailyergocalciferol, vitamin D2, 50 mcg (2,000 unit) cap Take 1 capsule by mouth daily . Suspendedferric citrate 1000 mg oral tablet (16 sources)Start: 00-88-0108gxiu 1 tablet by mouth twice daily at mealtime AURYXIA 1 GM 210 MG(Fe) TABS tablet Take 1 tablet by mouth 2 times daily (with meals) 10/25/2024 Activeferrous sulfate 325 mg delayed release oral tablet (20 sources)Start: 31-67-8623bzfm 325 mg by mouth once daily at cejpuvkbn351 mg, Oral, DAILY WITH BREAKFAST, First dose on 09/29/19 at 0800Start: 09-09-2019 End: 52-71-0447xeey 1 tablet by mouth once daily at breakfastferrous sulfate 325 (65 Fe) MG EC tablet Take 1 tablet by mouth daily (with breakfast) 90 tablet 3 09/09/2019 Activegentamicin 1 mg/ml topical cream (7 sources)Start: 24-25-8658Vawtlwd, DAILY PRN, For daily use during PD dressing change, Starting on 02/09/25 at 1951, For use by nurse performing peritoneal dialysis. Must be applied daily to Exit Site.Start: 07-04-7789jhegunvcyk (GARAMYCIN) 0.3 % ophthalmic solution by Other route See Admin Instructions 1 TO 2 dropstopically to PERITONEAL DIALYSIS EXIT SITE once daily if needed . 06/08/2024 Suspendedglucagon (rdna) 1 mg injection (20 sources)Antihypoglycemic AgentStart: mg, SubCUTAneous, PRN, Starting on 02/10/25 at 1000, Until Discontinued, Low blood sugar, Blood glucose LESS THAN 70 mg/dL and patient NOT ALERT or NPO and does not have IV access., After administration, attempt intravenous access and start dextrose 10% at 100 mL/hr. Repeat blood glucose in 15minutes x 2 and notify provider. Reconstitute powder for injection by adding 1 mL of contracting executive-supplied sterile diluent or sterile water for injection to a vial containing 1 mg of the drug, to provide solutions containing 1 mg/mL. Shake vial gently to dissolve. Start: 27-51-0226iayrfzsj 1 MG injection Mix and inject entire contents of vial into muscle for severe low blood sugar 1 kit 2 04/04/2020 ActiveStart: 73-49-1410ywozbtqv (rDNA) injection 1 mgStart: 12-78-0164bxvt 1 mL intravenous route every hour1 mg, Intramuscular, PRN, Low blood sugar, Blood glucose less than 70 mg/dL and patient NOT ALERT or NPO and does not have IV access., Starting Ladonna 09/28/19 at 1245 After administration, attempt intravenous access and start D5W at 100 mL/hr. Repeat blood glucose in 15 minutes x2 and notify provider.Start: 49-86-2764qdjsqwdo (rDNA) injection 1 mgglucagon 1 mg/mL SolR Inject 1 mL (1 mg total) into the shoulder, thigh, or buttocks as needed . Radha pendedglucagon 1 mg/mL SolR Inject 1 mL (1 mg total) into the shoulder, thigh, or buttocks once . ActiveGlucose (12 sources)Start: 85-18-8580GavyjCWKcgz, at 100 mL/hr, CONTINUOUS PRN, if blood glucose remains LESS THAN 70 mg/dL after 2 dextrose 10% intravenous boluses or administration of glucagon, Starting on 02/10/25 at 1000, If blood glucose fails to stabilize after 2 dextrose 10% intravenous boluses or glucagon administration, start dextrose 10% infusion at 100 mL/hour and repeat blood glucose at 30 and 60 minutes. If blood glucose is GREATER THAN 70 mg/dL after 60 minutes, discontinue dextrose 10% infusion.Start: 10-67-0051jqgsivyg bolus 10% 125 mLStart: 26-17-136015 g (4 tablet), Oral, PRN, Starting on 02/10/25 at 1000, Until Discontinued, Low blood sugar, If blood glucose is LESS THAN 70 mg/dL and patient is alert and tolerating oral. Give 4 tablets (16g)Repeat blood glucose in 15 minutes. If blood glucose is LESS THAN 70 mg/dL, repeat treatment and recheck blood glucose in 15 minutes x 2. If blood glucose remains LESS THAN 70 mg/dL, notify provider.Start: 38-51-6452epugrthb 50 % IV solutionStart: 98-36-9350bqchluwh 5 % solutionStart: 06-37-7134wlgzkdk (GLUTOSE) 40 % oral gel 15 gStart: 69-79-316772 g, Oral, PRN, Low blood sugar, Starting Ladonna 09/28/19 at 1245 If blood glucose less than 50 mg/dLand patient ALERT and TOLERATING PO, give 2 tubes glucose gel. If blood glucose less than 70 mg/dL and patient ALERT and TOLERATING PO, give 1 tube glucose gel. Repeat blood glucosein 15 minutes. If blood glucose is less than 70 mg/dL, repeat treatment and recheck blood glucose in 15 minutes x2 and notify provider.Start: 08-05-767306.5 g, Intravenous, PRN, Low blood sugar, Blood glucose less than 70 mg/dL and patient NOT ALERT or NPO., Starting Ladonna 09/28/19 at 1245 If patient does not respond within 5 minutes, repeat dose x1. Start D5W at 100 mL/hour until ordering provider can be reached. Repeat blood glucose in 15 minutes.If blood glucose is less than 70 mg/dL, repeat treatment and recheck blood glucose in 15 minutes x2. If using Glucostabilizer, dose as instructed per system.Start: 25-13-1792894 mL/hr, Intravenous, at 100 mL/hr, PRN, Low blood sugar, Starting Ladonna 09/28/19 at 1245 Start infusion following administration of dextrose 50% or glucagon.Start: 30-86-2270xlmxbvu (GLUTOSE) 40 % oral gel 15 gStart: 88-46-8389lzvyjvyl 50 % IV solutionStart: 63-69-3182hryqibgt 5 % solutionhydrALAZINE hydrochloride 25 mg oral tablet (20 sources)Arteriolar VasodilatorStart: 21-74-9318yxby 1 tablet by mouth twice dailyhydrALAZINE (APRESOLINE) 25 MG tablet Take 1 tablet by mouth 2 times daily 90 tablet 3 02/14/2025 ActiveStart: 43-57-3856jmbk 25 mg by mouth twice daily25 mg, Oral, 2 TIMES DAILY, First dose (after last modification) on Wed02/11/25 at 2100, Until Discontinued, Hold for sbpStart: 02-09-2025 End: 93-85-9401vgnb 50 mg by mouth twice daily50 mg, Oral, 2 TIMES DAILY, First dose (after last modification) on Wed02/09/25 at 2100, Until DiscontinuedStart: 07-19-2024 End: 26-85-6189nhqt 2 tablets by mouth twice dailyhydrALAZINE (APRESOLINE) 50 MG tablet Take 2 tablets by mouth 2 times daily 07/19/2024 02/14/2025 Discontinued (Stop Taking at Discharge)Start: 01-14-9368mdmw 0.5 tablet by mouth twice daily hydrALAZINE (APRESOLINE) 50 MG tablet Take 0.5 tablets by mouth 2 times daily 07/19/2024 ActiveStart: 06-15-2024 End: 59-66-3770frey 100 mg by mouth twice mg, Oral, 2 times daily, First dose on Ladonna 06/15/24 at 2200Start: 96-00-8923xzys 1 tablet by mouth twice dailyhydrALAZINE (APRESOLINE) 100 MG tablet Indications: Benign essential HTN Take 1 tablet by mouth 2 times daily 180 tablet 1 03/03/2024 ActiveStart: 49-63-8066vpwvNINDAPC (APRESOLINE) 50 MG tablet Indications: Benign essential HTN TAKE 1 AND 1/2 TABLET BY MOUTH TWO TIMES A DAY 270 tablet 1 12/11/2021 ActiveStart: 20-45-3448eepmIESHAGV (APRESOLINE) 50 MG tablet Indications: Benign essential HTN TAKE 1 AND 1/2 TABLET BY MOUTH TWO TIMES A DAY 270 tablet 1 06/03/2021 ActiveStart: 21-54-9110wnwgGGGODKE (APRESOLINE) 50 MG tablet Indications: Benign essential HTN TAKE 1 AND 1/2 TABLET BY MOUTH TWO TIMES A DAY 270 tablet 1 12/12/2020 ActiveStart: 39-09-4537dqrlRNUQBLJ (APRESOLINE) 50 MG tablet Indications: Benign essential HTN TAKE 1 AND 1/2 TABLET BY MOUTH TWO TIMES A DAY 270 tablet 1 06/17/2020 ActiveStart: 08-45-1938haryVDNFRAE (APRESOLINE) 50 MG tablet Indications: Benign essential HTN TAKE 1 AND 1/2 TABLET BY MOUTH TWO TIMES A DAY 270 tablet 1 03/28/2020 ActiveStart: 12-22-2019 hydrALAZINE (APRESOLINE) 50 MG tablet Indications: Benign essential HTN TAKE 1 AND 1/2 TABLET BY MOUTH TWO TIMES A DAY 270 tablet 0 12/22/2019 ActiveStart: 48-55-7468kptp 75 mg by mouth twice daily75 mg, Oral, 2 TIMES DAILY, First dose on Wed09/29/19 at 2100Start: 30-02-4292kumj 75 mg by mouth twice daily75 mg, Oral, 2 TIMES DAILY, First dose on Ladonna 09/28/19 at 2100Start: 09-28-2019 hydrALAZINE (APRESOLINE) injection 10 mgStart: 42-50-2619toxg 75 mg by mouth twice daily75 mg, Oral, 2 TIMES DAILY, First dose on 09/04/19 at 1145 Hold for SBP <110Start: 16-04-2350nhfj 1 tablet by mouth twice dailyhydrALAZINE (APRESOLINE) 50 MG tablet Indications: Benign essential HTN TAKE 1 1/2 TABLETS BY MOUTHTWICE DAILY 270 tablet 1 06/16/2019 Activeinsulin lispro 100 unt/ml injectable solution (20 sources)Insulin AnalogStart: 22-19-0116ZJCRRFC 100 UNIT/ML SOLN injection vial Indications: Poorly controlled type 2 diabetes mellitus with complication (HCC) Use via pump max dose 450 units/day 200 mL 3 03/08/2025 ActiveStart: 53-43-3088vhovrx 1 dose by subcutaneous injection once15 Units, SubCUTAneous, ONCE, 1 dose, On Tu02/13/25 at 2315Start: -16 Units, SubCUTAneous, 4 TIMES DAILY BEFORE MEALS & NIGHTLY, First dose on Wed02/11/25 at 1100, Until Discontinued, High Dose Corrective Algorithm Glucose: Dose: 70-179 No Insulin 180-249 4 Units 250-299 8 Units 300-349 12 Units Over 349 16 Units and notify physician Administer as soon as possible within 60 minutes of last blood glucose checkStart: 02-09-2025 End: -4 Units, SubCUTAneous, EVERY 4 HOURS, First dose on Wed02/09/25 at 1800, Until Discontinued, Corrective Low Dose Algorithm Glucose: Dose: 70-179 No Insulin 180-249 1 Unit 250-299 2 Units 300-349 3 Units Over 349 4 Units and notify physician Administer as soon as possible within 60 minutes of l ast blood glucose checkStart: 16-92-9396DJPYHGS 100 UNIT/ML SOLN injection vial Indications: Poorly controlled type 2 diabetes mellitus with complication (HCC) Use via pump max dose 350 units/day 150 mL 3 12/01/2024 ActiveStart: 12-15-2022 HUMALOG 100 UNIT/ML SOLN injection vial Use via pump max dose 250 units/day 120 mL 3 07/27/2024 ActiveStart: 98-22-5385ushxdkh lispro (HUMALOG) 100 UNIT/ML injection vial Use via insulin pump max daily dose 150 units 140 mL 3 11/28/2021 ActiveStart: 17-80-5182jrdpqcc lispro (HUMALOG) 100 UNIT/ML injection vial Use via insulin pump max daily dose 150 units 14 vial 1 06/27/2021 ActiveStart: 40-89-7209irgsljc lispro (HUMALOG) 100 UNIT/ML injection vial Use via insulin pump max daily dose 150 units 14 vial 1 01/22/2021 ActiveStart: 01-06-2021 insulin lispro (HUMALOG) 100 UNIT/ML injection vial Inject 20 Units into the skin 3 times daily (before meals) 1 vial 0 01/06/2021 ActiveStart: 12-05-2020 insulin lispro, 1 Unit Dial, (HUMALOG KWIKPEN) 100 UNIT/ML SOPN 20 units at each meals 90 pen 3 12/05/2020 ActiveStart: 31-99-3148vcwgesk lispro (HUMALOG) injection vial 6 UnitsStart: 09-28-2019 End: 61-92-8863mqlhhw 5 [IU] by subcutaneous injection three times daily before mealtime5 Units, Subcutaneous, 3 TIMES DAILY BEFORE MEALS, First dose on Wed09/29/19 at 1900Start: 66-53-46762-9 Units, Subcutaneous, NIGHTLY, First dose on Wed09/29/19 at 2100 If continuous tube feedings/TPN/NPO, give correction dose based on result, no reduction in dose. If eating or bolus tube feeding: High Dose Corrective Algorithm Glucose: Dose: 70-139 No Insulin 140-199 & amp;nbsp; 2 Units 200-249 3 Units 250-2995 Units 300-349 6 Units 350-400 7 Units Over 400 9 UnitsStart: 97-71-0685ygaeedf lispro (HUMALOG KWIKPEN) 100 UNIT/ML pen Indications: Uncontrolled type 2 diabetes mellituswith hyperosmolarity without coma, with long-term current use of insulin (HCC) Inject 5 Units into the skin 3 times daily (before meals) 15 mL 3 03/06/2019 ActiveStart: 96-01-7412ebxjhsl lispro (HUMALOG KWIKPEN) 100 UNIT/ML pen Indications: Uncontrolled type 2 diabetes mellituswith hyperosmolarity without coma, with long-term current use of insulin (HCC) Inject 5 Units into the skin 3 times daily (before meals) 15 mL 3 03/06/2019 Activeinsulin lispro (HUMALOG) 100 UNIT/ML injection vial (14 sources)Start: 77-26-4967pxgjgbd lispro (HUMALOG) 100 UNIT/ML injection vial Indications: Uncontrolled type 2 diabetes mellitus with chronic kidney disease Use via insulin pump max daily dose 150 units 140 mL 3 03/31/2022 ActiveStart: 16-93-1180pcpbhaw lispro (HUMALOG) 100 UNIT/ML injection vial Indications: 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) Use via insulin pump max daily dose 150 units 140 mL 3 03/31/2022 Activelosartan potassium 25 mg oral tablet (20 sources)Angiotensin 2 Receptor BlockerStart: 08-23-1156ryqo 1 tablet by mouth every other daylosartan (COZAAR) 25 MG tablet Take 1 tablet by mouth every other day 90 tablet 1 04/04/2020 ActiveStart: 69-26-7351wlhr 25 mg by mouth once daily25 mg, Oral, DAILY, First dose on Wed09/29/19 at 1900Start: 82-89-2591hbzh 25 mg by mouth once daily25 mg, Oral, DAILY, First dose on Wed09/28/19 at 1315Start: 09-04-2019 End: 09-52-0341glrb 25 mg by mouth twice daily25 mg, Oral, 2 TIMES DAILY, First dose on 09/04/19 at 5518186 ml magnesium sulfate 10 mg/ml injection (1 source)Start: 06-58-4668xqum 1 mg intravenous route every hour as needed1 g, Intravenous, at 100 mL/hr, Administer over 1 Hours, PRN, Other, Per IV Magnesium Replacement Protocol, Starting Wed09/29/19 at 1838 Mg Lab Replacement Action 1.4- 1.6 1 gram IVPB x 2 doses (2 gram Total) 1.0- 1.3 1 gram IVPB x 4 doses &nbs p; &nbs p; (4 gram Total) <1.0&nb sp; CALL PHYSICIAN and &nb sp; &nb sp; 1 gram IVPB x 4 doses &amp ;nbsp; (4 gram Total) Infuse at1 gram/hr Repeat Mag level next AM Protocol not for use in Patients with CrCl<30ml/min meclizine hydrochloride 12.5 mg oral tablet (20 sources)AntiemeticStart: 95-03-3602Zheow: 49-97-8887dlii 25 mg by mouth three times daily as needed for qquikgpsc99 mg, Oral, 3 TIMES DAILY PRN, Dizziness, Starting 09/29/19 at 1838Start: 01-86-0097jbmy 25 mg by mouth three times daily as needed for ljebkalpy12 mg, Oral, 3 TIMES DAILY PRN, Dizziness, Starting 09/04/19 at 1122Start: 11-50-7178mtly 1 tablet by mouth three times daily as needed for dizzinessmeclizine (ANTIVERT) 25 MG tablet Indications: Vertigo Take 1 tablet by mouth 3 times daily as needed for Dizziness 90 tablet 2 10/30/2024 Activenaloxone 0.4 mg in 10 mL sodium chloride syringe (1 source)Start: 22-98-7269TxiraVQSdbt, PRN, Opioid Reversal, Starting on Wed08/29/24 at 1009, PRN if respiratory rate is less than 6/min and patient is difficult to arouse then notify physician STAT. Mix 9 mL of sodium chloride 0.9% with 0.4 mg (1 mL) of naloxone (NARCAN) in 10 mL syringe. (Note: dilution is 0.04 mg/mL) Give 0.08 mg (2 mL of special dilution), slow IV push, repeat up to 0.4 mg (10 mL) or until patient isresponsive to physical stimulation and respiratory rate is equal to or greater than 6 breaths/min. Continue to observe, if no response within 3 minutes of administration of 0.4 mg (10 mL) total, repeat dose (0.4 mg as administered previously). Concentration 0.04 mg/mL, PACU only24 hr nicotine 0.875 mg/hr transdermal system (1 source)Cholinergic Nicotinic AgonistStart: 85-84-8219nxwypibo (NICODERM CQ) 21 MG/24HR 1 patchoctreotide 30 mg injection (20 sources)Somatostatin AnalogStart: 31-40-3145xrgflh 1 dose by intramuscular injection once20 mg, IntraMUSCular, ONCE, 1 dose, On Wed01/10/25 at 1300Start: 71-29-3414juyycbcaqp ACETATE (SANDOSTATIN LAR) injection 30 mg (Patient Supplied)Start: 04-21-2024 End: 65-50-3258pqvzdsfdqr ER (SandoSTATIN LAR [place]) 30 mg injection Inject 30 (thirty) mg into the shoulder, thigh, or buttocks every 28 days . 1 each 05/19/2024 SuspendedStart: 94-53-4361yyaajcpzuw ACETATE (SANDOSTATIN LAR) injection 30 mg (Patient Supplied)Start: 64-40-0302bvjevadsuj ACETATE (SANDOSTATIN LAR) injection 30 mg (Patient Supplied)Start: 52-60-7994szwlclgqei ACETATE (SANDOSTATIN LAR) injection 30 mg (Patient Supplied)Start: 09-22-2021 octreotide ACETATE (SANDOSTATIN LAR [place]) 30 MG injection Indications: Carcinoid tumor of stomach INJECT 30MG INTRAMUSCULARLY EVERY 28 DAYS 1 kit 5 09/22/2021 ActiveStart: 12-85-7149ujfyisragu ACETATE (SANDOSTATIN LAR) injection 30 mgStart: 55-44-7054ktxwufvuxi ACETATE (SANDOSTATIN LAR) injection 30 mg Start: 95-35-9511dhnhsizxbl ACETATE (SANDOSTATIN LAR) injection 30 mgStart: 60-15-9468seonsqevys ACETATE (SANDOSTATIN LAR [place]) 30 MG injection Indications: Carcinoid tumor of stomach Inject 30 mg into the muscle every 28 days 1 kit 11 12/20/2019 ActiveStart: 13-57-3447wctacqhilz ACETATE (SANDOSTATIN LAR) injection 30 mg End: 49-05-2447GMFSLNIILH ACETATE SUBQ Inject 30 mg under the skin every 28 days . 06/22/2024 Discontinued (Stop Taking at Discharge)OCTREOTIDE ACETATE SUBQ Inject 30 mg under the skin every 28 days . SuspendedOCTREOTIDE ACETATE SUBQ Inject 30 mg under the skin every 28 days . ActiveOCTREOTIDE ACETATE SUBQ Inject 30 mg under the skin every 28 days . 0 Active2 ml ondansetron 2 mg/ml injection (5 sources)Serotonin-3 Receptor AntagonistStart: 08-29-2024 End: mg, IntraVENous, ONCE PRN, 1 dose, Starting on Wed08/29/24 at 1009, Until Wed08/30/24 at 1009, Nausea, PACU onlyStart: mg, Intravenous, EVERY 6 HOURS PRN, Nausea, Starting 09/29/19 at 1838Start: 09-28-2019 End: mg, Intravenous, EVERY 6 HOURS PRN, Nausea, Starting Ladonna 09/28/19 at 1245Start: 06-17-4446iexxoxjkedp (ZOFRAN) injection 4 mgondansetron (ZOFRAN-ODT) disintegrating tablet 4 mg (2 sources)Start: 20-56-0128jzuwhdeuknp (ZOFRAN-ODT) disintegrating tablet 4 mg Start: 06-15-2024 End: 98-34-8319gemo 1 tablet by mouth every six hours as needed for nausea and vomitingondansetron (ZOFRAN-ODT) disintegrating tablet 4 mgpolyethylene glycol 3350 20739 mg powder for oral solution (10 sources)Osmotic LaxativeStart: 09-04-2019 End: 03-21-660690 g, Oral, DAILY PRN, Constipation, Starting Wed09/29/19 at 1838Potassium Chloride (2 sources)Start: 17-00-6806pjqziujab chloride (KLOR-CON M) extended release tablet 40 mEqStart: 27-18-839346 mEq, Intravenous, at 100 mL/hr, PRN, Per Potassium IV Replacement Protocol, Starting Wed09/29/19 at 1838 K Lab Replacement Action 3.1-3.5 10 Meq IVPB x 4 doses &nb sp; &nb sp; (40 Meq Total) 2.7-3.0 & nbsp; 10 Meq IVPB x 6 doses &a mp;nbsp; &a mp;nbsp; (60 Meq Total) <2.7 CALL PHYSICIAN and 10 Meq IVPB x 6 doses &nbs p; (60 Meq Total) Infuse at 10meq/hr Repeat Potassium lab 1 hour after final administration. Protocol not for use in Patients with Cr Cl<30ml/min sacubitril 24 mg / valsartan 26 mg oral tablet (20 sources)Angiotensin 2 Receptor BlockerStart: 34-85-4774atjj 24-26 mg by mouth oncesacubitril-valsartan (ENTRESTO) 24-26 MG per tablet Take 1 tablet by mouth 2 times daily 180 tablet1 10/30/2024 ActiveStart: 06-19-2024 End: 91-14-6110txcm 1 tablet by mouth twice dailysacubitriL-valsartan (ENTRESTO) 24-26 mg per tablet Take 1 (one) tablet by mouth 2 (two) times a day Hold for systolic 60 tablet 11 06/22/2024 10:15 AM EDT 06/22/2024 Suspendedtake 24-26 mg by mouth oncesacubitril-valsartan (ENTRESTO) 24-26 MG per tablet Take 1 tablet by mouth 2 times daily Activespironolactone 25 mg oral tablet (8 sources)Aldosterone AntagonistStart: 79-36-9158vkopkjmjqvlakm (ALDACTONE) 25 MG tablettamsulosin hydrochloride 0.4 mg oral capsule (20 sources)alpha-Adrenergic BlockerStart: 10-23-2019 End: 77-94-3840cefe 1 capsule by mouth once dailytamsulosin (FLOMAX) 0.4 MG capsule Take 1 capsule by mouth daily 90 capsule 1 11/20/2019 ActiveStart: 05-27-2018 End: 12-79-5055saic 1 capsule by mouth once daily in the eveningtamsulosin (FLOMAX) 0.4 MG capsule Indications: Benign prostatic hyperplasia without lower urinary tract symptoms Take 1 capsule by mouth every evening 30 capsule 5 05/27/2018 09/03/2019 Discontinued(LIST CLEANUP) Completed/Discontinued Medications MedicationDrug Class(es)DatesSig (Normalized)Sig (Original)acetylcysteine 200 mg/ml inhalant solution (2 sources)Antidote, Mucolytic, Antidote for Acetaminophen OverdoseStart: 10-05-2019 End: 70-23-8209jtodwnlsifgfkz (MUCOMYST) 20 % solution 600 mgStart: 10-01-2019 End: 78-59-6097bqtuxzvzghoeew (MUCOMYST) 20 % solution 600 mgALPRAZolam 0.25 mg oral tablet (1 source)BenzodiazepineStart: 10-02-2019 End: 61-95-9163SEYXNWdejr (XANAX) tablet 0.25 mgaluminum hydroxide 40 mg/ml / magnesium hydroxide 40 mg/ml / simethicone 4 mg/ml oral suspension (1 source)Start: 06-15-2024 End: 77-81-9631mgkd 30 mL by mouth every four hours as neededBlood Glucose Monitoring Suppl (PRODIGY AUTOCODE BLOOD GLUCOSE) w/Device KIT (11 sources)Start: 03-06-2019 End: 77-55-9311Cqyrr Glucose Monitoring Suppl (PRODIGY AUTOCODE BLOOD GLUCOSE) w/Device KIT Use as directed to test up to 4 times daily 1 kit 0 03/06/2019 10/07/2019 Discontinued (Stop Taking at Discharge)Start: 30-24-0647Chdif Glucose Monitoring Suppl (PRODIGY AUTOCODE BLOOD GLUCOSE) w/Device KIT Use as directed to test up to 4 times daily 1 kit 0 03/06/2019 SuspendedStart: 01-46-7697Mqfaz Glucose Monitoring Suppl (PRODIGY AUTOCODE BLOOD GLUCOSE) w/Device KIT Use as directed to test up to 4 times daily 1 kit 0 03/06/2019 ActivebuPROPion hydrochloride 75 mg oral tablet (2 sources)AminoketoneStart: 13-85-3009afjc 1 tablet by mouth twice daily buPROPion (WELLBUTRIN) 75 MG tablet Take 1 (one) tablet (75 mg total) by mouth 2 (two) times a day . 07/30/2025 Suspendedcalcium chloride 0.709496 meq/ml / glucose 1 mg/ml / magnesium chloride 0.7299334 meq/ml / sodium chloride 0.05572 meq/ml / sodium lactate 0.0016 meq/ml intraperitoneal solution (4 sources)Start: 02-10-2025 End: ,500 mL, IntraPERitoneal, Once, On Wed02/13/25 at 2000, For 1 dose, (One-time order for nurse to give, pt missed 1700 dose, was off the floor) 30 minutes inflow Dwell 3 hours Out flow 30 minutes 4 exchanges during daytime hours, leave dry overnight.Start: 02-10-2025 End: ,500 mL, IntraPERitoneal, EVERY 4 HOURS, First dose (after last modification) on Wed02/10/25 at 1215, 30 minutes inflow Dwell 3 hours Out flow 30 minutesStart: 02-09-2025 End: ,500 mL, IntraPERitoneal, EVERY 6 HOURS, First dose [place] Wed02/09/25 [place] 84361 ml enoxaparin sodium 150 mg/ml prefilled syringe (5 sources)Low Molecular Weight HeparinStart: 06-12-2019 End: 83-86-8065falubr 150 mg by subcutaneous injection twice dailyenoxaparin (LOVENOX) 150 MG/ML injection Indications: Other pulmonary embolism without acute cor pulmonale, unspecified chronicity (HCC) INJECT 150 MG SUBCUTANEOUSLY TWO TIMES A DAY 60 mL 3 06/12/2019 09/08/2019 Discontinued (Stop Taking at Discharge)2 ml fentaNYL 0.05 mg/ml injection (4 sources)Opioid AgonistStart: 14-82-972789 mcg, IntraVENous, EVERY 5 MIN PRN, 2 doses, Starting on Wed08/29/24 at 1009, Until Discontinued, Pain Severe (7- 10), For Phase I. If Phase II oral narcotics have been administered in the last 60 minutes, do not administer IV narcotics unless specifically approved by provider., PACU onlyStart: mcg, IntraVENous, EVERY 5 MIN PRN, 2 doses, Starting on Wed08/29/24 at 1009, Until Discontinued, Pain Moderate (4- 6), For Phase I. If Phase II oral narcotics have been administered in the last 60minutes, do not administer IV narcotics unless specifically approved by provider., PACU onlyStart: 09-04-2019 End: 37-30-1704nvkwrJBG (SUBLIMAZE) injection 50 mcgStart: 09-04-2019 End: 95-04-4821kadegQZF (SUBLIMAZE) injection 50 mcgfluticasone propionate 0.05 mg/actuat metered dose nasal spray (20 sources)CorticosteroidStart: 15-36-5587ajls 2 spray(s) nasal route once daily as neededfluticasone propionate (FLONASE) 50 mcg/actuation nasal spray Instill 2 (two) sprays into each nostril daily as needed for allergies . 09/02/2023 SuspendedStart: 78-70-5324veaarfiznwg (FLONASE) 50 MCG/ACT nasal spray Indications: Acute bacterial sinusitis 2 sprays by Nasal route daily 16 g 3 09/02/2023 Activefurosemide 40 mg oral tablet (20 sources)Loop DiureticStart: 55-06-6383xoil 80 mg by mouth twice daily80 mg, Oral, 2 TIMES DAILY, First dose on Wed02/09/25 at 2100, Until DiscontinuedStart: 78-41-0528bbgl 1 tablet by mouth twice dailyfurosemide (LASIX) 80 MG tablet Take 1 tablet by mouth 2 times daily 10/26/2024 ActiveStart: 37-86-6489dzdq 1 tablet by mouth in the morningfurosemide (LASIX) 40 MG tablet Take 1 tablet by mouth in the morning and 1 tablet in the evening. 60 tablet 2 10/05/2024 Active Start: 06-16-2024 End: 49-19-994874 mg, Intravenous, Every 12 hours scheduled, First dose on Wed06/16/24 at 1800, Administer IV push at 20 mg per minute (doses higher than 100 mg require IVPB)Start: 06-15-2024 End: 66-75-2010dnoo 40 mg by mouth twice daily40 mg, Oral, 2 times daily, First dose on Ladonna 06/15/24 at 2200Start: 07-95-6580ytrv 1 tablet by mouth once daily as neededfurosemide (LASIX) 20 MG tablet Take 1 tablet by mouth daily Prn 0 03/06/2019 ActiveStart: 27-16-2588xalxxuxlks (LASIX) 20 MG tablet Furosemide 20 mg, Oral, EVERY 48 HOURS, First dose on 09/04/19 at 1145 09-04-2019 [place], [place] ([id number]) 0 03/06/2019 ActiveStart: 03-06-2019 End: 72-45-4339zrnu 1 tablet by mouth every other dayfurosemide (LASIX) 20 MG tablet Take 1 tablet by mouth (20 mg) every other day 45 tablet 0 03/06/2019 10/07/2019 Discontinued (Stop Taking at Discharge)250 ml heparin sodium, porcine 100 unt/ml injection (13 sources)Unfractionated Heparin, Anti-coagulantStart: 02-13-2025 End: Units/kg/hr 140 kg (23.8 mL/hr), IntraVENous, CONTINUOUS, Starting on Wed02/13/25 at 0100, Until Wed02/14/25 at 0704, Heparin Weight-Based Infusion (CAD/STEMI/NSTEMI/UA/AFIB) Patient weight: 140 kg Initial Infusion rate: 7 Units/kg/hr [Dose adjusted to reflect maximum initial infusion rate of 1000Units/hr] (If an initial bolus is ordered, give the bolus prior to the initiation of the infusion) Hang infusion immediately after drawing initial labs. Do NOT use ANY aPTT drawn prior to initiation of infusion for titration. Check aPTT 6 hours after initiation and 6 hours after every dose change for any titrations. Adjust infusion rate based on aPTT results as listed below. Rate adjustments are to be based on initial weight of 140 kg. aPTT = 106 secs Hold heparin for 60 minutes then decrease infusion by 3 units/kg/hr. When aPTT is within target range for two consecutive times, check aPTT once daily with morning labs. If the rate titration adjustment indicated by the nomogram causes a dose that is above the ordered range contact provider. If heparin drip is held or stopped for a procedure, call provider to obtain resume rate. , Patient came back from laboratory engineer with heparin gtt stopped, physician(cardiology)re-ordered heparin gtt to be re-started at 2000, previous rate., Post-opStart: 02-09-2025 End: -30 Units/kg/hr 140 kg (7-42 mL/hr), IntraVENous, CONTINUOUS, Starting on Wed02/09/25 at 2330, Until Wed02/13/25 at 0033, Heparin Weight-Based Infusion (CAD/STEMI/NSTEMI/UA/AFIB) Patient weight: 140 kg Initial Infusion rate: 7 Units/kg/hr [Dose adjusted to reflect maximum initial infusion rate of 1000 Units/hr] (If an initial bolus is ordered, give the bolus prior to the initiation of the infusion) Hang infusion immediately after drawing initial labs. Do NOT use ANY aPTT drawn prior to initiation of infusion for titration. Check aPTT 6 hours after initiation and 6 hours after every dose change for any titrations. Adjust infusion rate based on aPTT results as listed below. Rate adjustments are to be based on initial weight of 140 kg. aPTT = 106 secs Hold heparin for 60 minutes then decrease infusion by 3 units/kg/hr. When aPTT is within target range for two consecutive times, check aPTT once daily with morning labs. If the rate titration adjustment indicated by the nomogram causes a dose that is above the ordered range contact provider. If heparin drip is held or stopped for a procedure, call provider to obtain resume rate.Start: 02-09-2025 End: ,000 Units, IntraVENous, ONCE, 1 dose, On Wed02/09/25 at 1930, Initial one time bolusStart: 02-09-2025 End: ,000 Units, IntraVENous, PRN, Starting on Wed02/09/25 at 1905, Until Wed02/14/25 at 1105, Other, heparin dosing algorithm, Full dose re-bolus based on pharmacy algorithmStart: 02-09-2025 End: ,000 Units, IntraVENous, PRN, Starting on Wed02/09/25 at 1905, Until Wed02/14/25 at 1105, Other, heparin dosing algorithm, Half dose re-bolus based on pharmacy algorithmStart: 08-29-2024 End: ,800 Units, IntraCATHeter, ONCE, 1 dose, On Wed08/29/24 at 1045 Start: 06-20-2024 End: -70 Units/kg/hr 139.7 kg (0-97.79 mL/hr, rounded to 0-97.8 mL/hr), Intravenous, Continuous, Starting on Wed06/20/24 at 1015, Choose one of the following protocols: Cardiac / Arterial, Bolus options: Protocol WITHOUT initial bolus only, For Downtime Calculator, use: Heparin Infusion Standard Start: 06-15-2024 End: -70 Units/kg/hr 138.3 kg (0-96.81 mL/hr, rounded to 0-96.8 mL/hr), Intravenous, Continuous, Starting on Wed06/15/24 at 1810, For 3 days 1 hour, Choose one of the following protocols: PE / DVT, Bolus options: Protocol WITHOUT initial bolus only, For Downtime Calculator, use: Heparin Infusion Standard Start: 09-30-2019 End: Units/kg/hr 130.8 kg (15.696 mL/hr, rounded to 15.7 mL/hr), Intravenous, at 15.7 mL/hr, CONTINUOUS, Starting Wed10/06/19 at 1700 LOW DOSE HEPARIN PROTOCOL 60 units/kg IV x 1 (max 4000 units), then 12 units/kg/hr (max initial rate 1000 units/hr) Adjust infusion rate based on aPTT results (aPTT target range 1.5-2) aPTT < 30 Heparin Full re-bolus Increase infusionby 4 units/kg/hr aPTT 30-49 Heparin Half re-bolus Increase infusion by 2 units/kg/hr aPTT 50-70 No bolus No change aPTT 71-85 No bolus Decrease infusion by 2 units/kg/hr aPTT > 85 Hold heparin for 60 min Decrease infusion by 3 units/kg/hr aPTT > 100 Hold heparin for 60 min Decrease infusion by 4 units/kg/hr Check aPTT 6 hours after initiation and 6 hours after every dose change. When aPTT is within target range for two consecutive times, check aPTT once daily.Start: 09-30-2019 heparin (porcine) injection 4,000 UnitsStart: 09-71-9256thferlg (porcine) injection 2,000 Unitsheparin bolus from bag 0-5,000 Units (1 source)Start: 06-20-2024 End: -5,000 Units, Intravenous, Continuous PRN, IF the MAR calculator for heparin infusion specifies a bolus from bag is to be administered, Starting on Wed06/20/24 at 0926, Choose one of the following protocols: Cardiac / Arterial, Bolus options: Protocol WITHOUT initial bolus only, For Downtime Calculator, use: Heparin Infusion Standard hydrOXYzine hydrochloride 10 mg oral tablet (5 sources)AntihistamineStart: 39-28-0700qetu 10 mg by mouth three times daily as mg, Oral, 3 TIMES DAILY PRN, Starting on Wed02/13/25 at 1850, Until Discontinued, AnxietyStart: 09-29-2019 End: 29-91-9124oevp 25 mg by mouth three times daily as needed for mg, Oral, 3 TIMES DAILY PRN, Anxiety, Starting Wed09/29/19 at 1838Start: 09-29-2019 hydrOXYzine (ATARAX) tablet 25 mginsulin glargine 100 unt/ml injectable solution (20 sources)Insulin AnalogStart: 63-18-7818espcnv 45 [IU] by subcutaneous injection once daily45 Units, SubCUTAneous, DAILY, First dose (after last modification) on Wed02/13/25 at 2315, Until DiscontinuedStart: 02-11-2025 End: 65-25-1372sxujga 30 [IU] by subcutaneous injection once daily30 Units, SubCUTAneous, DAILY, First dose (after last modification) on Wed02/11/25 at 1045, Until DiscontinuedStart: 02-39-9152Lmdnnjh Glargine, 2 Unit Dial, (TOUJEO MAX SOLOSTAR) 300 UNIT/ML SOPN 130 units am and 50 units pm 90 pen 5 12/05/2020 ActiveStart: 65-05-8879Agdlhnt Glargine, 2 Unit Dial, (TOUJEO MAX SOLOSTAR) 300 UNIT/ML SOPN Inject 130 Units into the skin daily 14 pen 3 04/04/2020 Active Start: 67-31-7846ngsxcs 100 [IU] by subcutaneous injection twice Units, Subcutaneous, 2 TIMES DAILY, First dose on Wed09/29/19 at 2100 Substituted for Insulin glargine U-300 (TOUJEO SOLOSTAR).Start: 41-19-5142ucogfrb glargine (LANTUS) injection vial 130 UnitsStart: 09-04-2019 End: 00-01-5581zpjwiez glargine (LANTUS) injection vial 100 UnitsStart: 08-02-2018 End: 29-51-4849ltcvafs glargine (TOUJEO MAX SOLOSTAR) 300 UNIT/ML injection pen Indications: Uncontrolled type 2 diabetes mellitus with hyperosmolarity without coma, with long-term current use of insulin (HCC) Inject 130 Units into the skin 2 times daily 10 pen 3 08/02/2018 10/07/2019 Discontinued (REORDER)iron sucrose (VENOFER) 300 mg in sodium chloride 0.9 % 250 mL IVPB (1 source)Start: 09-06-2019 End: 37-16-2013twbs sucrose (VENOFER) 300 mg in sodium chloride 0.9 % 250 mL IVPBiron sucrose (VENOFER) 300 mg in sodium chloride 0.9% (NS) 250 mL IVPB (1 source)Start: 06-16-2024 End: 55-69-4703075 mg, Intravenous, Administer over 1.5 Hours, Daily, First dose on Wed06/16/24 at 1500, For 3 doses1 ml LORazepam 2 mg/ml injection (5 sources)BenzodiazepineStart: 10-02-2019 End: 56-16-4941ZEDaxnevr (ATIVAN) injection 1 mgStart: 09-28-2019 End: 03-90-0878HVOiabsqu (ATIVAN) tablet 0.5 mgStart: 65-07-4509BOJsfzjnb (ATIVAN) tablet 0.5 mgStart: 09-04-2019 End: 70-36-7791MTUctvwxp (ATIVAN) injection 1 mgStart: 09-03-2019 End: 35-99-3299BOUjkomnw (ATIVAN) injection 1 mgmagnesium hydroxide 80 mg/ml oral suspension (4 sources)Start: 53-56-7195qnuz 30 mL by mouth once daily as needed for mL, Oral, DAILY PRN, Starting on Wed02/09/25 at 1745, Until Discontinued, Constipation, First line therapy for constipation.Start: 96-77-7607eelw 30 mL by mouth once daily as needed for byoyfrrdrjja41 mL, Oral, DAILY PRN, Constipation, Starting Wed09/29/19 at 1838 First line therapy for constipation.Start: 56-14-5401xtmfwvskt hydroxide (MILK OF MAGNESIA) 400 MG/5ML suspension 30 mL24 hr metoprolol succinate 25 mg extended release oral tablet (20 sources)beta-Adrenergic BlockerStart: 48-52-9055vcks 100 mg by mouth twice mg, Oral, 2 times daily, First dose on Wed02/09/25 at 2100, Until Discontinued, Do not crush orchew.Start: 06-19-2024 End: 04-82-2309kuwi 1 tablet by mouth twice dailymetoprolol succinate (TOPROL- XL) 100 MG 24 hr tablet Take 1 (one) tablet (100 mg total) by mouth 2 (two) times a day . 60 tablet 11 06/22/2024 10:15 AM EDT 06/22/2024 SuspendedStart: 06-15-2024 End: 83-41-3118mkev 100 mg by mouth twice hwvif421 mg, Oral, 2 times daily, First dose on Wed06/15/24 at 2200Start: 81-87-7154fwyc 100 mg by mouth twice mg, Oral, 2 TIMES DAILY, First dose on Wed09/29/19 at 2100Start: 16-59-7291iwhj 100 mg by mouth twice mg, Oral, 2 TIMES DAILY, First dose on Wed09/04/19 at 1145 Hold for SBP <110 or HR<60Start: 06-09-2019 End: 40-39-1549eslt 1 tablet by mouth twice dailymetoprolol (LOPRESSOR) 100 MG tablet Indications: Benign essential HTN Take 1 tablet by mouth 2 times daily 180 tablet 1 05/11/2024 Active2 ml midazolam 1 mg/ml injection (1 source)BenzodiazepineStart: mg, IntraVENous, EVERY 10 MIN PRN, 2 doses, Starting on Wed08/29/24 at 1009, Until Discontinued,Anxiety, Anxiety pre-op, Repeat once after 10 minutes for stated anxiety, Pre-op (day of surgery) 1 ml morphine sulfate 4 mg/ml cartridge (2 sources)Opioid AgonistStart: mg, IntraVENous, ONCE PRN, 1 dose, Starting on Wed02/09/25 at 1745, Until Discontinued, Pain Severe (7-10), Pain Moderate (4-6), allowed for higher pain score per patient request, Give for chest pain if all doses of nitroglycerin have been administered and patient has continued chest pain., Notify provider if nitroglycerin is not effective and morphine administered. Hold for Systolic blood pressure less than 90mmHg or a MAP of less than 65mmHgStart: 72-33-2729okbnlhfl (PF) injection 2 mg nitroglycerin 0.4 mg sublingual tablet (20 sources)Nitrate VasodilatorStart: 06-22-2024 End: 79-51-7642xhtueRMYLFSRT (NITROSTAT) 0.[address] 1 (one) tablet (0.4 mg total) under the tongue every 5 (five) minutes as needed for chest pain , if no relief after 3 doses call 911 . 25 tablet 2 06/22/2024 10:15 AM EDT 06/22/2024 SuspendedStart: 09-28-20190.4 mg, Sublingual, EVERY 5 MIN PRN, Chest pain, Starting Wed09/29/19 at 1838, For [address] 1tablet under tongue upon chest pain, wait 5 minutes and may repeat up to 3 doses in 15 minutes. Do not crush or break.omeprazole 40 mg delayed release oral capsule (20 sources)Proton Pump InhibitorStart: 04-14-2019 End: 90-39-7265eoti 1 capsule by mouth twice dailyomeprazole (PRILOSEC) 40 MG delayed release capsule TAKE 1 CAPSULE BY MOUTH 2 TIMES A DAY 180 capsule 1 04/11/2020 11/13/2024 Discontinued (REORDER)pantoprazole 40 mg delayed release oral tablet (20 sources)Proton Pump InhibitorStart: 58-13-8819dtuf 1 tablet by mouth twice dailypantoprazole (PROTONIX) 40 MG tablet Take 1 (one) tablet (40 mg total) by mouth 2 (two) times a day. 11/16/2024 SuspendedStart: 06-16-2024 End: 96-16-2047goex 40 mg by mouth once daily40 mg, Oral, Daily, First dose on Wed06/16/24 at 0900, DO NOT CRUSH OR CHEW.Start: 78-26-5196pqvn 40 mg by mouth twice daily before mg, Oral, 2 TIMES DAILY BEFORE MEALS, First dose on Wed09/30/19 at 0700 Do not crush or break. Substituted for Omeprazole (PRILOSEC).Start: 38-08-8112nmpx 40 mg by mouth once daily before jygttucbt86 mg, Oral, DAILY BEFORE BREAKFAST, First dose on Wed09/05/19 at 0700 Do not crush or break. Substituted for Omeprazole (PRILOSEC).perflutren lipid microspheres ([employer]) 0.143 mg/mL solution 0-10 mL of mixture (1 source)Start: 06-15-2024 End: -10 mL of mixture, Intravenous, Once in imaging, contrast, IF suboptimal echo, Starting on Wed06/15/24 at 1721, For 48 hours, Prepare syringe by withdrawing 1.3 mL of perflutren (DEFINITY) from the 2ml vial. Further dilute the 1.3 mL of perflutren with Sodium Chloride (NS) 0.9% to total volume of 10 ml. Chart total ML OF MIXTURE given to patient.regadenoson (LEXISCAN) injection 0.4 mg (1 source)Start: 09-28-2019 End: 82-69-5119xivxbqjgovw (LEXISCAN) injection 0.4 mginsulin, regular, human 100 unt/ml injectable solution (3 sources)InsulinStart: 02-10-2025 End: 58-10-1753ZutHJEMufcdm, 4 TIMES DAILY BEFORE MEALS & NIGHTLY, First dose on 02/10/25 at 1100, Patient to bolus using insulin pump based on current home settings for carbohydrates coverage and blood glucose correction.Start: 02-10-2025 End: 91-09-6793UnfTOSIppgxi, DAILY, First dose on 02/10/25 at 1030, Total daily basal dose (total number of units/24 hours) provided by patient and/or query of insulin pump.Start: 09-28-2019 End: 74-00-4363mjltehv regular (HUMULIN R;NOVOLIN R) injection 10 Units sennosides, custodial 8.6 mg oral tablet (10 sources)Start: 06-15-2024 End: 08-95-1837Axgpi: 09-06-2019 End: 95-78-4887brpz 1 tablet by mouth once daily as needed for constipationsenna (SENOKOT) 8.6 MG tablet Take 1 tablet by mouth nightly as needed (constipation) 30 tablet 0 09/08/2019 10/07/2019 Discontinued (Stop Taking at Discharge)sodium bicarbonate 650 mg oral tablet (10 sources)Start: 08-33-7139fzpm 650 mg by mouth twice taevr717 mg, Oral, 2 TIMES DAILY, First dose on Wed02/11/25 at 2100, Until DiscontinuedStart: 74-42-2994nuov 1 tablet by mouth three times dailysodium bicarbonate 650 MG tablet Take 1 tablet by mouth 3 times daily 12/07/2023 Active5 ml sodium chloride 9 mg/ml injection (20 sources)Start: 55-32-2059EtcleUPOtzw, at 240 mL/hr, Administer over 10 Minutes, PRN, blood administration, Starting on Wed02/13/25 at 1457, For 1 dose, For use in priming line prior to transfusion (prime via gravity) and flush line post transfusion ONLY. Discontinue once line has been cleared of remaining blood product.Start: -40 mL, IntraVENous, EVERY 12 HOURS SCHEDULED (2 times per day), First dose on Wed02/13/25 at 2100,Until Discontinued, For Line Patency: Peripheral IV = 5 mL; Midline or Central Line = 10 mL/lumen. If following IV push medication, administer flush at same rate as the IV push. Flush volume is determined by type of infusion therapy being given. For non- viscous solutions use: Peripheral IV = 5 mL Midline or Central Line = 10 mL/lumen For viscous solutions (i.e. blood components, parenteral nutrition, contrast media, or after obtaining blood sample) use: Peripheral IV = 10 mL Midline or Central Line = 20 mL/lumen, Recovery(Cath)Start: 02-09-2025 IntraVENous, at 5-250 mL/hr, PRN, if patient receiving piggyback infusions and maintenance fluids are not ordered, Starting on Wed02/13/25 at 1655, For piggyback infusion, administer at same rate as piggyback for a total of 25 mL. Enter 25 mL into dose field and piggyback rate into rate field of order. If piggyback is infusing at a rate less than 100 mL/hr, enter 25 mL into dose field and 100 mL/hr into rate field of order., Recovery(Cath)Start: -40 mL, IntraVENous, PRN, Starting on Wed02/13/25 at 1655, Until Discontinued, Line Care, After every IV line use, For Line Patency: Peripheral IV = 5 mL; Midline or Central Line = 10 mL/lumen. If following IV push medication, administer flush at same rate as the IV push. Flush volume is determinedby type of infusion therapy being given. For non-viscous solutions use: Peripheral IV = 5 mL Midline or Central Line = 10 mL/lumen For viscous solutions (i.e. blood components, parenteral nutrition, contrast media, or after obtaining blood sample) use: Peripheral IV = 10 mL Midline or Central Line = 20 mL/lumen, Recovery(Cath) Start: 32-04-9618AlqhvXCPiju, at 5-250 mL/hr, PRN, if patient receiving piggyback infusions and maintenance fluids are not ordered, Starting on Wed08/29/24 at 1009, For piggyback infusion, administer at same rate aspiggyback for a total of 25 mL. Enter 25 mL into dose field and piggyback rate into rate field of order. If piggyback is infusing at a rate less than 100 mL/hr, enter 25 mL into dose field and 100 mL/hr into rate field of order., Pre-op (day of surgery)Start: -40 mL, IntraVENous, EVERY 12 HOURS SCHEDULED (2 times per day), First dose on Wed08/29/24 at 1030, Until Discontinued, For Line Patency: Peripheral IV = 5 mL; Midline or Central Line = 10 mL/lumen. If following IV push medication, administer flush at same rate as the IV push. Flush volume is determined by type of infusion therapy being given. For non- viscous solutions use: Peripheral IV = 5 mLMidline or Central Line = 10 mL/lumen For viscous solutions (i.e. blood components, parenteral nutrition, contrast media, or after obtaining blood sample) use: Peripheral IV = 10 mL Midline or Central Line = 20 mL/lumen, PACU onlyStart: -40 mL, IntraVENous, PRN, Starting on Wed08/29/24 at 1009, Until Discontinued, Line Care, After every IV line use, For Line Patency: Peripheral IV = 5 mL; Midline or Central Line = 10 mL/lumen. If following IV push medication, administer flush at same rate as the IV push. Flush volume is determined by type of infusion therapy being given. For non-viscous solutions use: Peripheral IV = 5 mL Midline or Central Line = 10 mL/lumen For viscous solutions (i.e. blood components, parenteral nutrition, contrast media, or after obtaining blood sample) use: Peripheral IV = 10 mL Midline or Central Line = 20 mL/lumen, Pre-op (day of surgery)Start: 08-29-2024 IntraVENous, at 75 mL/hr, CONTINUOUS, Starting on Wed08/29/24 at 0745, Pre-Procedure(Cath)Start: 06-21-2024 End: mL, Intravenous, As needed, hypotension management during hemodialysis, Starting on Wed06/21/24 at 0702, For 1 doseStart: 06-21-2024 End: ,000-3,000 mL, Hemodialysis, As needed, other, Priming solution for HD system, Starting on Wed06/21/24 at 0702, For 12 hours, Dialysis HoldStart: 06-19-2024 End: ,000-3,000 mL, Hemodialysis, As needed, other, Priming solution for HD system, Starting on Wed06/19/24 at 0717, For 12 hours, Dialysis HoldStart: 06-17-2024 End: ,000-3,000 mL, Hemodialysis, As needed, other, Priming solution for HD system, Starting on Wed06/17/24 at 0737, For 12 hours, Dialysis HoldStart: 06-16-2024 End: 72-53-0521056 mL, Intravenous, As needed, hypotension management during hemodialysis, Starting on Wed06/19/24 at 0717, For 1 dose, Dialysis HoldStart: 10-05-2019 End: .9 % sodium chloride infusionStart: 10-02-2019 End: 10-03-20190.9 % sodium chloride infusionStart: 09-29-2019 End: 99-32-3318zlgrgw chloride flush 0.9 % injection 10 mLStart: 46-83-686798 mL, Intravenous, EVERY 12 HOURS SCHEDULED (2 times per day), First dose on Wed10/06/19 at 1045,Recovery(Cath)Start: 41-84-5663Wdmvxxqsghq, at 75 mL/hr, CONTINUOUS, Starting [place] 09/28/19 at 1315Start: 44-61-5593cxjw 10 mL intravenous route once10 mL, Intravenous, PRN, Line Care, Starting Wed10/06/19 at 1028 After every IV line use Recovery(Cath)Start: 09-28-2019 End: 09-28-20190.9 % sodium chloride bolusStart: 09-07-2019 End: 09-08-20190.9 % sodium chloride bolusStart: 09-05-2019 End: 09-07-20190.9 % sodium chloride infusionStart: 09-04-2019 End: 09-04-20190.9 % sodium chloride bolusStart: 32-71-5893vahgqs chloride flush 0.9 % injection 10 mLSUBCUTANEOUS INSULIN PUMP MISC (6 sources)SUBCUTANEOUS INSULIN PUMP MISC by Miscellaneous route . Active SUBCUTANEOUS INSULIN PUMP MISC by Miscellaneous route .SUBCUTANEOUS INSULIN PUMP MISC by Miscellaneous route . Suspendedsubcutaneous insulin pump Misc (1 source)Start: 06-21-2024 End: 67-80-7452Yslmnwlvouzue, Continuous, Starting on Wed06/21/24 at 1045, Select Insulin Product in Pump: lispro (HUMALOG), Specify Number of Different Basal Rates per 24hr: 1, Starting Time: 6:01 PM, Basal Rate (units / hr): 6.5, Prandial Bolus Method: Specific Doses (X units of insulin), Breakfast (units): 15, Lunch (units): 20, Dinner (units): 20sulfur hexafluoride microspheres (LUMASON) 60.7-25 MG injection 2 mL (1 source)Start: 02-09-2025 End: mL, IntraVENous, IMG ONCE PRN, 1 dose, Starting on Wed02/09/25 at 1745, Until 02/12/25 at 1729, Other, Inability to adequately visualize heart without contrast, Only to be given during ECHOCARDIOGRAM. Echocardiogram should first be performed without contrast and if exam is adequate then DO NOT administer the contrast. If unable to adequately visualize heart without contrast and the patient has no contraindications to echo contrast then administer the echo contrast., Pre-procedure(Stress)technetium sestamibi (CARDIOLITE) injection 10 millicurie (1 source)Start: 09-29-2019 End: 81-61-2288bxfcdqtsgn sestamibi (CARDIOLITE) injection 10 millicurie technetium sestamibi (CARDIOLITE) injection 30 millicurie (1 source)Start: 09-29-2019 End: 29-43-1568tjpcoikllz sestamibi (CARDIOLITE) injection 30 millicurie ticagrelor 90 mg oral tablet (20 sources)Start: 02-13-2025 End: 22-99-0921jmpx 90 mg by mouth twice daily90 mg, Oral, 2 TIMES DAILY, First dose on Wed02/13/25 at 2100, Until Discontinued, ANTIPLATELET!Start: 03-01-2023 take 1 tablet by mouth twice dailyticagrelor (BRILINTA) 90 MG TABS tablet Indications: Coronary artery disease involving [place] coronary artery of [place] heart without angina pectoris , Other pulmonary embolism without acute cor pulmo nale, unspecified chronicity (HCC) Take 1 tablet by mouth 2 times daily 180 tablet 1 03/01/2023 ActiveStart: 76-36-8743zuvk 1 tablet by mouth twice daily BRILINTA 90 MG TABS tablet Indications: Coronary artery disease involving [place] coronary artery of[place] heart without angina pectoris , Other pulmonary embolism without acute cor pulmonale, unspecified chronicity (HCC) TAKE 1 TABLET BY MOUTH 2 TIMES A DAY 180 tablet 1 09/24/2022 ActiveStart: 42-19-7247ohir 1 tablet by mouth twice dailyticagrelor (BRILINTA) 90 MG TABS tablet Indications: Coronary artery disease involving [place] coronary artery of [place] heart without angina pectoris , Other pulmonary embolism without acute cor pulmonale, unspecified chronicity (HCC) Take 1 tablet by mouth 2 times daily 180 tablet 1 03/05/2022 ActiveStart: 15-20-8709vkse 1 tablet by mouth twice dailyticagrelor (BRILINTA) 90 MG TABS tablet Indications: Coronary artery disease involving [place] coronary artery of [place] heart without angina pectoris , Other pulmonary embolism without acute cor pulmonale, unspecified chronicity (HCC) Take 1 tablet by mouth 2 times daily 180 tablet 1 05/30/2021 ActiveStart: 02-24-2021 take 1 tablet by mouth twice dailyticagrelor (BRILINTA) 90 MG TABS tablet Indications: Coronary artery disease involving [place] coronary artery of [place] heart without angina pectoris , Other pulmonary embolism without acute cor pulmo nale, unspecified chronicity (HCC) Take 1 tablet by mouth 2 times daily 180 tablet 1 02/24/2021 ActiveStart: 79-89-2618sdra 1 tablet by mouth twice daily ticagrelor (BRILINTA) 90 MG TABS tablet Indications: Coronary artery disease involving [place] coronary artery of [place] heart without angina pectoris , Other pulmonary embolism without acute cor pulmonale, unspecified chronicity (HCC) Take 1 tablet by mouth 2 times daily 180 tablet 1 10/29/2020 ActiveStart: 12-16-1904rylj 1 tablet by mouth twice dailyticagrelor (BRILINTA) 90 MG TABS tablet Take 1 tablet by mouth 2 times daily 60 tablet 3 01/25/2020ActiveStart: 49-11-2509gtnm 1 tablet by mouth twice dailyticagrelor (BRILINTA) 90 MG TABS tablet Take 1 tablet by mouth 2 times daily 60 tablet 3 10/07/2019Active triamcinolone acetonide 1 mg/ml topical cream (20 sources)CorticosteroidStart: 76-06-4551vxgerkeyafmhs (KENALOG) 0.1 % cream Apply topically 2 (two) times a day as needed . 03/17/2024 SuspendedStart: 18-13-8798cydyyknvwlkdf (KENALOG) 0.1 % cream Indications: Eczema, unspecified type Apply to the affected area 2 times a day. 80 g 1 03/17/2024 Active Problems Active Problems Problem ClassificationProblemDateDocumented DateEpisodic/ChronicAbdominal pain (2 sources)Unspecified abdominal pain; Translations: [Unspecified abdominal pain]Onset: 46-96-9553PbkoudqcBluef and unspecified renal failure (1 source)Chronic renal failure; Translations: [Chronic renal failure, stage 3 (moderate) ([facility])]ChronicAcute myocardial infarction (17 sources)Myocardial infarction; Translations: [Non-ST elevation (NSTEMI) myocardial infarction]Onset: [id number] disorders (20 sources)Generalized anxiety disorder; Translations: [Generalized anxiety disorder]Onset: [id number] kidney disease (20 sources)Chronic kidney disease stage 3; Translations: [CKD (chronic kidney disease) stage 3, GFR 30-59 ml/min]Onset: [id number] and hemorrhagic disorders (20 sources)Thrombocytopenic disorder; Translations: [Thrombocytopenia, unspecified]Onset: [id number] atherosclerosis and other heart disease (20 sources)Coronary arteriosclerosis; Translations: [Coronary arteriosclerosis in [place] artery]Onset: 10-01-2011 Resolved: [id number] atherosclerosis and other heart disease (3 sources)Patient post percutaneous transluminal coronary angioplasty; Translations: [Coronary angioplasty status]Onset: [id number] Deficiency and other anemia (2 sources)Anemia in other chronic diseases classified elsewhere; Translations: [Anemia in other chronic diseases classified elsewhere]Onset: 29-01-2127Imfgcrt Deficiency and other anemia (1 source)Anemia; Translations: [Anemia due to other cause, not classified] EpisodicDiabetes mellitus with complications (20 sources)Type II diabetes mellitus uncontrolled; Translations: [Type 2 diabetes mellitus with diabetic chronic kidney disease]Onset: 10-11-2016 Resolved: 932966-76-5224LgalvnnTtjexllo mellitus without complication (20 sources)Type 2 diabetes mellitus; Translations: [Type 2 diabetes mellitus without complication]Onset: 300049-09-4026UibbybeNcemwougj of lipid metabolism (20 sources)Mixed hyperlipidemia; Translations: [Mixed hyperlipidemia]Onset: 008311-88-0376PgfdtasBwmbywiygv disorders (20 sources)Gastroesophageal reflux disease; Translations: [Gastro-esophageal reflux disease without esophagitis]Onset: 025969-88-6023PpmsmeqNuffhkgdc hypertension (20 sources)Benign essential hypertension; Translations: [Essential (primary) hypertension]Onset: 341236-93-4283ZuynhpfSmpiy and electrolyte disorders (2 sources)Hypo-osmolality and hyponatremia; Translations: [Hypo-osmolality and hyponatremia]Onset: 05-65-1586CgyipyjxLhqos valve disorders (5 sources)Presence of prosthetic heart valve; Translations: [History of aortic valve replacement]Onset: 49-30-5503VhgyxkiTnmrxbh and fatigue (3 sources)Fatigue; Translations: [Other fatigue]EpisodicMultiple sclerosis (20 sources)Multiple sclerosis; Translations: [Multiple sclerosis]Onset: 483871-22-0395CxxpyvqJwpfvorbn of unspecified nature or uncertain behavior (20 sources)Carcinoid tumor of stomach; 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]Onset: 276097-57-3312ZymgdpuvNyelyiwlvmt deficiencies (20 sources)Vitamin D deficiency; Translations: [Vitamin D deficiency, unspecified]Onset: 26-53-1834MmfdvspByisoaplsrvytm (2 sources)Primary gonarthrosis, bilateral; Translations: [Bilateral primary osteoarthritis of knee]Onset: 498883-45-3148SfjmjwhTzkfa aftercare (20 sources)Long-term current use of anticoagulant; 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]Onset: 698795-37-0121QkerzlaqAiogv and unspecified benign neoplasm (1 source)Benign stromal neoplasm of gastrointestinal tract; Translations: [Benign neoplasm of connective andother soft tissue of abdomen]03-27-2024 EpisodicOther and unspecified benign neoplasm (4 sources)Neuroendocrine tumor; Translations: [Other benign neuroendocrine tumors]Onset: 184860-93-2897UpdivxuqMziud and unspecified benign neoplasm (20 sources)Neoplasm of stomach ; 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]Onset: 489421-71-7597SghtzpsyLuobo circulatory disease (6 sources)Inferior vena cava filter in situ; Translations: [Presence of other vascular implants and grafts]Onset: 606766-43-5620SmdybayJxgne lower respiratory disease (4 sources)Dyspnea; Translations: [Shortness of breath]EpisodicOther male genital disorders (20 sources)Acquired buried penis; 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]Onset: 926927-91-7201EdnirbkRrrjq nutritional; endocrine; and metabolic disorders (20 sources)Morbid obesity; Translations: [Morbid (severe) obesity due to excess calories]Onset: 690936-90-8547EbrygxrRzlvuvnyy heart disease (20 sources)H/O: pulmonary embolus; Translations: [Pulmonary embolism]Onset: 09-07-2012 Resolved: 982148-25-6027FojbwwzcPztlphyi codes; unclassified (20 sources)Obstructive sleep apnea syndrome; Translations: [Obstructive sleep apnea (adult) (pediatric)]Onset: 764636-24-8655VekkuyvDkktzzrm codes; unclassified (1 source)Body fluid retention; Translations: [Edema, unspecified]06-15-2024 EpisodicSecondary malignancies (20 sources)Secondary malignant neoplasm of liver; Translations: [Secondary malignant neoplasm of liver and intrahepatic bile duct]Onset: 05-25-2013 58-04-0980HgzznjpZgoaxoilw malignancies (2 sources)Secondary malignant neoplasm of liver and intrahepatic bile duct; Translations: [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)]Onset: 07-30-9638YrgtcovNysn and subcutaneous tissue infections (2 sources)Cellulitis of abdominal wall ; Translations: [Cellulitis of abdominal wall]Onset: 376056-99-6089Krvvgivx Past or Other Problems Problem ClassificationProblemDateDocumented DateEpisodic/ChronicAcute and unspecified renal failure (20 sources)Acute injury of kidney; Translations: [Acute kidney failure, unspecified]Onset: 09-05-2019 Resolved: 219618-43-1333HygmzdtiZkjai and unspecified renal failure (20 sources)Acute injury of kidney; Translations: [REJI (acute kidney injury) (HCC)]Onset: 09-05-2019 Resolved: Acute posthemorrhagic anemia (20 sources)Acute posthemorrhagic anemia; Translations: [Acute posthemorrhagic anemia]Onset: 09-05-2019 Resolved: 756025-41-0130RfqzskqsJmnwez of stomach (20 sources)Carcinoma of stomach; Translations: [Malignant neoplasm of stomach, unspecified]Onset: 10-11-2016 Resolved: 713598-55-5878ZbueajgOsqsleprwl and other anemia (20 sources)Iron deficiency anemia; Translations: [Iron deficiency anemia, unspecified]Onset: 504498-55-2039XrclurdlQmgvsflibk and other anemia (1 source)Other iron deficiency anemias; Translations: [Other iron deficiency anemias]Onset: 25-74-8988RnvinnhxUvsemldp mellitus without complication (1 source)Hyperglycemia; Translations: [Hyperglycemia]EpisodicGenitourinary symptoms and ill-defined conditions (20 sources)Poor stream of urine; Translations: [Acute retention of urine ] Onset: 04-08-2017 Resolved: 796375-53-8362EmyubfpiHphe disorders (2 sources)Mood disordersOnset: 535303-12-6799Nmvgaykxruu chest pain (20 sources)Chest pain; Translations: [Chest pain, unspecified]Onset: 09-28-2019 Resolved: 897946-69-2568LqdlpiymKjheg and unspecified benign neoplasm (5 sources)Benign carcinoid tumor of the stomach; 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)]Onset: 73-49-7347QrliwhkoExcyt and unspecified benign neoplasm (2 sources)Other benign neuroendocrine tumors; Translations: [Benign carcinoid tumor of unknown primary site]Onset: 731689-71-3436YunezwxrIxmba connective tissue disease (20 sources)Hematoma; Translations: [Other injury of unspecified body region, initial encounter]Onset: 09-04-2019 Resolved: 940246-06-2482CtasiaczTsurm connective tissue disease (20 sources)Subcutaneous hematoma; Translations: [Other injury of unspecified body region, initial encounter]Onset: 09-04-2019 Resolved: 264992-26-2236JysgznwbJmuiq fractures (1 source)Closed fracture of fourth thoracic vertebra; Translations: [Closed fracture of fourth thoracic vertebra, unspecified fracture morphology, initial encounter ([facility])]EpisodicOther gastrointestinal disorders (6 sources)Swelling of inguinal region; Translations: [Other intra-abdominal and pelvic swelling, mass and lump]Onset: 182561-49-9159ZqsqlcvfTazaa lower respiratory disease (1 source)Shortness of breath; Translations: [Shortness of breath]Onset: 86-67-5196GawfwgnoUidxc nervous system disorders (20 sources)Numbness; Translations: [Anesthesia of skin]Onset: 10-27-2018 47-59-7036UruzlzxzMafnw upper respiratory infections (20 sources)Acute maxillary sinusitis; Translations: [Acute maxillary sinusitis, unspecified]Onset: 10-28-2018 Resolved: 513362-13-8423SqpztnobZfdvbrwdy; thrombophlebitis and thromboembolism (20 sources)Bilateral deep vein thrombosis of lower extremities; Translations: [Acute embolism and thrombosis of unspecified deep veins of lower extremity, bilateral]Onset: 06-14-2013 Resolved: 835371-67-8027ZufwronlHogxpccmu malignancies (20 sources)Secondary malignant neoplasm of retroperitoneal lymph nodes; Translations: [Secondary and unspecified malignant neoplasm of intra-abdominal lymph nodes]Onset: 05-25-2013 Resolved: 913718-26-9375HfwiqkxVqqxdgowngrq (20 sources)Onset: 05-26-2018 Resolved: Results Test NameValueInterpretationReference RangeFacilityCBC WITH AUTO DIFFERENTIALon 28-45-9505JFXL NRBC0.0 %NormalCleveland Clinic Mercy HospitalComment on above:Performed By: #### [id number] #### LAB [address] [address] Oskar Ballard M.D. [id number] NRBC ABS COUNT0.00 K/mcLNormal0.00-0.00[facility] HospitalComment on above:Performed By: #### [id number] ####[facility] LAB [address] [address] Oskar Ballard M.D. [id number] ABSOLUTE COUNT0.03 K/mcLNormal0.00-0.30[facility] HospitalComment on above:Performed By: #### [id number] #### LAB [address] [address] Oskar Ballard M.D. [id number]/100 WBC (Bld)0.2 %[facility] HospitalComment on above:Performed By: #### [id number] #### LAB [address] [address] Oskar Ballard M.D. [id number] (Bld) [#/Vol]0.20 10*3/uL Normal0.00-0.50[facility] HospitalComment on above:Performed By: #### [id number] #### LAB [address] [address] Oskar Ballard M.D. [id number]/100 WBC (Bld)1.6 %[facility] HospitalComment on above:Performed By: #### [id number] #### LAB [address] [address] Oskar Ballard M.D. [id number] distribution width (RBC) [Ratio]18.6 %High11.6-14.8[facility] HospitalComment on above:Performed By: #### [id number] #### LAB [address] [address] Oskar Ballard M.D. [id number] (Bld) [Volume fraction]27.0 %Low41.0-53.0[facility] HospitalComment on above:Performed By: #### [id number] #### LAB [address] [address] Oskar Ballard M.D. [id number] (Bld) [Mass/Vol]8.1 g/dLLow13.5-17.5[facility] HospitalComment on above:Performed By: #### [id number] #### LAB [address] [address] Oskar Ballard M.D. [id number] ABSOLUTE0.07 K/mcLNormal0.00-0.30[facility] Comment on above:Performed By: #### [id number] #### LAB [address] [address] Oskar Ballard M.D. [id number] PERCENT0.60 %[facility] HospitalComment on above:Result Comment: The IG parameter is the percentage of metamyelocytes, myelocytes and promyelocytes.An immature granulocyte count (IG) of 1% or more suggests the possibility of infection, an IG countof 3% is very likely related to an infection.Performed By: #### [id number] #### LAB [address] [address] Oskar Ballard M.D. [id number] (Bld) [#/Vol]0.38 10*3/uLLow0.90-4.00[facility] Comment on above:Performed By: #### [id number] #### LAB [address] [address] Oskar Ballard M.D. [id number]/100 WBC (Bld)3.0 %[facility] HospitalComment on above:Performed By: #### [id number] #### LAB [address] [address] Oskar Ballard M.D. [id number] (RBC) [Entitic mass]28.2 riAinqrt81.0-34.0[facility] Comment on above:Performed By: #### [id number] #### LAB [address] [address] Oskar Ballard M.D. [id number] (RBC) [Entitic vol]94.1 kTWriuyc73.0-100.0[facility] HospitalComment on above:Performed By: #### [id number] #### LAB [address] [address] Oskar Ballard M.D. [id number] CORPUSCULAR HEMOGLOBIN CONC30.0 g/dLLow31.0-37.0[facility] HospitalComment on above:Performed By: #### [id number] #### LAB [address] [address] Oskar Ballard M.D. [id number] (Bld) [#/Vol]0.93 10*3/uLHigh0.30-0.90[facility] HospitalComment on above:Performed By: #### [id number] #### LAB [address] [address] Oskar Ballard M.D. [id number]/100 WBC (Bld)7.4 %[facility] HospitalComment on above:Performed By: #### [id number] #### LAB [address] [address] Oskar Ballard M.D. [id number] ABSOLUTE COUNT11.03 K/mcL High1.70-7.00[facility] HospitalComment on above:Performed By: #### [id number] #### LAB [address] [address] Oskar Ballard M.D. [id number]/100 WBC (Bld)87.2 %[facility] HospitalComment on above:Performed By: #### [id number] #### LAB [address] [address] Oskar Ballard M.D. [id number] mean volume (Bld) [Entitic vol]9.3 fLLow9.4-12.4[facility] HospitalComment on above:Performed By: #### [id number] #### LAB [address] [address] Oskra Ballard M.D. [id number] (Bld) [#/Vol]312 10*3/cHNrwnbb112-809[facility] Comment on above:Performed By: #### [id number] #### LAB [address] [address] Oskar Ballard M.D. [id number] (Bld) [#/Vol]2.87 10*6/uLLow4.50-5.90[facility] HospitalComment on above:Performed By: #### [id number] #### LAB [address] [place], [place] [address] Oskar Ballard M.D. [id number] (Bld) [#/Vol]12.64 10*3/uLHigh4.50-11.00[facility] HospitalComment on above:Performed By: #### [id number] #### LAB [address] [place], [place] [address] Oskar Ballard M.D. [id number] COMPLETE W CONTRASTon 11-50-8808EWKQNZGUDNDHKH COMPLETE W CONTRASTSummary 1. This study was technically limited, Definity IV contrast was used to enhance endocardial definition. 2. LV is enlarged, LVH is present with global dysfunction with segmental dysfunction. LVEF 31%. 3. Right ventricular size and systolic function are normal. 4. There is grade 2 diastolic dysfunction, consistent with impaired relaxation and elevated left atrial pressure. 5. s/p TAVR with a 29 mm Evolut FX+. Vmax of 1.6 m/s with mean gradient of 5mmHg, trivial paravalvular insufficiency. 6. There is mild tricuspid valve regurgitation. 7. There is mild mitral valve regurgitation. 8. There is pulmonary hypertension, estimated right ventricle systolic pressure is 49 mmHg. Ordering Provider: Zee Miranda Referring Physician: Gracie Miller Inspector Precision: Nyasia Hinkle RD, RVS Attending Physician: Melba Singh Patient Info Site Location: Exam Location: [facility] Name: Lorenzo Amato Age: 55 years : 1970 Gender: Male Ht: 175 cm Wt: 127 kg BSA: 2.54 m2 HR: 97 bpm BP: 92 / 56 mmHg Heart Rhythm: Sinus Rhythm Technical Quality: Technically difficult due to body habitus Exam Date: 09/27/2025 6:44 AM Patient Status: INPATIENT Exam Type: ECHOCARDIOGRAM COMPLETE W CONTRAST Study Info Indications Z95.2 - Presence of prosthetic heart valve I35.0 - Nonrheumatic aortic (valve) stenosis [id number] BMI: 41.20 kg/m2 History/Risk Factors Hypertension: Yes Dyslipidemia: Yes Myocardial Infarction (CO): Yes Renal Disease: Yes Coronary Artery Disease (CAD) Yes Diabetes Mellitus: Type II Tobacco Use: Never Family History: Coronary Artery Disease Dialysis: Current History/Risk Factors Obstructive sleep apnea. Prior Interventions PCI: Yes Transcatheter Intervention: TAVR Replacement Valve Size: 29mm Evolut FX Plus (09/26/25) Procedure(s): Complete two-dimensional, color flow and Doppler transthoracic echocardiogram is performed with contrast. Definity explained to patient. Patient verbalizes understanding and agrees to proceed. Definity 1.3ml/8.7ml normal sterile saline 1.0 ml total given IV over 30-60 seconds. Left Ventricle LV is enlarged, LVH is present with global dysfunction with segmental dysfunction. LVEF 31%. The apical septum, apical lateral wall, and apical cap are akinetic. The inferior wall, anterior wall, anteroseptal wall, basal inferoseptal, mid inferoseptal, basal anterolateral wall, mid anterolateral wall, basal inferolateral wall, and mid inferolateral wall are hypokinetic. There is grade 2 diastolic dysfunction, consistent with impaired relaxation and elevated left atrial pressure. Left ventricular segmental wall motion is abnormal. Right Ventricle Right ventricular size and systolic function are normal. Left Atria Left atrial chamber is normal with a left atrial volume index of 24 ml/m2 by BP MOD. Right Atria Right atrial chamber dimension is normal. Aortic Valve s/p TAVR with a 29 mm Evolut FX+. Vmax of 1.6 m/s with mean gradient of 5mmHg, trivial paravalvular insufficiency. Pulmonic Valve The pulmonic valve is normal. There is no pulmonic valve stenosis. There is no pulmonic regurgitation. Mitral Valve The mitral valve has normal leaflets. There is no mitral valve stenosis. There is mild mitral valve regurgitation. Tricuspid Valve The tricuspid valve leaflets are normal. There is no significant tricuspid valve stenosis. There is mild tricuspid valve regurgitation. There is pulmonary hypertension, estimated right ventricle systolic pressure is 49 mmHg. Pericardium/Pleural There is no pericardial effusion. Inferior Vena Cava Dilated inferior vena cava with <50% collapse upon inspiration consistent with elevated right atrial pressure. Aorta The aortic measurements are indexed to age and body surface area. The proximal ascending aorta is normal measuring 3.1 cm with an index of 1.2 cm/m2. Left Ventricular Outflow Tract Name Value Normal LVOT 2D LVOT Diameter 2.1 cm LVOT Doppler LVOT Peak Velocity 1.1 m/s LVOT Peak Gradient 5 mmHg LVOT Mean Gradient 3 mmHg LVOT VTI 18 cm LVOT VTI/AV VTI Ratio 0.7 LVOT Stroke Volume 60 ml LVOT Stroke Index 23.64 ml/m2 Pulmonic Valve Name Value Normal RVOT Doppler RVOT Peak Velocity 74 cm/s RVOT Peak Gradient 2 mmHg RVOT Mean Gradient 1 mmHg RVOT VTI 12 cm PV (more content not included)...NormalCleveland Clinic Mercy HospitalMAGNESIUM LEVELon 79-09-3390Zghrtannk [Mass/Vol]1.9 mg/dLNormal1.6-2.4[facility] HospitalComment on above:Performed By: #### [id number] #### LAB [address] [address] Oskar Ballard M.D. [id number] GLUCOSE - [facility] CLINICSon 66-86-0373Pahuouv [Mass/Vol]79 mg/hIKhxmix70-72Kpvojdtez HospitalGlucose [Mass/Vol]171 mg/dLHigh 65-99MMartin Memorial HospitalRENAL FUNCTION PANELon 28-61-7669Ldwxejd [Mass/Vol]2.8 g/dLLow3.2-5.2MMartin Memorial HospitalComformerly [facility] on above:Order Comment: [facility] has implemented the eGFR calculation approach that does not have a coefficient for race that conforms to the NKF-ASN Task Force Recommendations.Performed By: #### [id number] ####[facility] LAB [address] [address] Oskar Ballard M.D. [id number] gap [Moles/Vol]22 mmol/L Chsn44-91Zavvcqfzf HospitalComformerly [facility] on above:Order Comment: [facility] has implemented the eGFR calculation approach that does not have a coefficient for race that conforms to the NKF-ASN Task Force Recommendations. Performed By: #### [id number] #### LAB [address] [address] Oskar Ballard M.D. [id number] [Mass/Vol]8.5 mg/dLNormal8.4-10.2 [facility] on above:Order Comment: [facility] has implemented the eGFR calculation approach that does not have a coefficient for race that conforms to the NKF-ASN Task Force Recommendations.Performed By: #### [id number] #### LAB [address] [address] Oskar Ballard M.D. [id number] [Moles/Vol]89 mmol/ULyo46-539Khtdepqax[address] [place] [address] Comment on above:Order Comment: [facility] has implemented the eGFR calculation approach that does not have a coefficient for race that conforms to the NKF-ASN Task Force Recommendations.Performed By: #### [id number] #### LAB [address] [address] Oskar Ballard M.D. [id number] [Mass/Vol]7.29 mg/dLMan [facility]0.50-1.30[facility] on above:Order Comment: [facility] has implemented the eGFR calculation approach that does not have a coefficient for race that conforms to the NKF-ASN Task Force Recommendations.Performed By: #### [id number] #### LAB [address] [address] Oskar Ballard M.D. [id number] mL/min/1.73 m2Low>=60[facility] on above:Order Comment: [facility] has implemented the eGFR calculation approach that does not have a coefficient for race that conforms to the NKF-ASN Task Force Recommendations.Result Comment: Estimated GFR was calculated using the 2020 CKD-EPI creatinine equation.Performed By: #### [id number] ####[facility] LAB [address] [address] Oskar Ballard M.D. [id number] [Mass/Vol]110 mg/ePEwaf20-82Qljkvpsbf[address] on above:Order Comment: [facility] has implemented the eGFR calculation approach that does not have a coefficient for race that conforms to the NKF-ASN Task Force Recommendations.Performed By: #### [id number] #### LAB [address] [address] Oskar Ballard M.D. [id number] (Bld) [Moles/Vol] 23 mmol/HCxaltx20-65Fwnrzieun HospitalComment on above:Order Comment: [facility] has implemented the eGFR calculation approach that does not have a coefficient for race that conforms to the NKF-ASN Task Force Recommendations.Performed By: #### [id number] #### LAB [address] [address] Oskar Ballard M.D. [id number] [Mass/Vol]8.3 mg/dLHigh 2.7-4.5[facility] HospitalComment on above:Order Comment: [facility] has implemented the eGFR calculation approach that does not have a coefficient for race that conforms to the NKF-ASN Task Force Recommendations. Performed By: #### [id number] #### LAB [address] [address] Oskar Ballard M.D. [id number] [Moles/Vol]3.4 mmol/LLow3.5-5.1 [facility] on above:Order Comment: [facility] has implemented the eGFR calculation approach that does not have a coefficient for race that conforms to the NKF-ASN Task Force Recommendations.Performed By: #### [id number] #### LAB [address] [address] Oskar Ballard M.D. [id number] [Moles/Vol]131 mmol/JBuo526-830Nxppidksu Hospital Comment on above:Order Comment: [facility] has implemented the eGFR calculation approach that does not have a coefficient for race that conforms to the NKF-ASN Task Force Recommendations.Performed By: #### [id number] #### LAB [address] [address] Oskar Ballard M.D. [id number] nitrogen [Mass/Vol]45 mg/dLHigh8-25[facility] HospitalComment on above:Order Comment: [facility] has implemented the eGFR calculation approach that does not have a coefficient for race that conforms to the NKF-ASN Task Force Recommendations.Performed By: #### [id number] #### LAB [address] [place], [place] [address] Oskar Ballard M.D. [id number] nitrogen/Creatinine [Mass ratio]6.2 mg/mgLow10.0-20.0[facility] HospitalComment on above:Order Comment: [facility] has implemented the eGFR calculation approach that does not have a coefficient for race that conforms to the NKF-ASN Task Force Recommendations.Performed By: #### [id number] #### LAB [address] [place], [place] [address] Oskar Ballard M.D. [id number] 11-10-3343wXSH Coag (Bld) [Time]71 vSigq48-45Tpeqrzsvt HospitalComment on above: Order Comment: Therapeutic range for APTT's is 68 - 104 secondsPerformed By: #### [id number] #### [facility] [address] [place], [place] [address] Lobo Albrecht M.D. [id number] 31-97-6794CBRG NRBC0.0 %NormalCleveland Clinic Mercy HospitalComment on above:Order Comment: While on heparinPerformed By: #### [id number] #### [facility] [address] [place], [place] [address] Lobo Albrecht M.D. [id number] NRBC ABS COUNT0.00 K/mcLNormal0.00-0.00[facility] HospitalComment on above:Order Comment: While on heparinPerformed By: #### [id number] #### [facility] [address] [place] [address] Lobo Albrecht M.D. [id number] distribution width (RBC) [Ratio]18.6 %High11.6-14.8 [facility] HospitalComment on above:Order Comment: While on heparinPerformed By: #### [id number] #### [facility] [address] [place], [place] [address] Lobo Albrecht M.D. [id number] (Bld) [Volume fraction]29.0 %Low41.0-53.0[facility] Comment on above:Order Comment: While on heparinPerformed By: #### [id number] #### [facility] [address] [place] [address] Lobo Albrecht M.D. [id number] (Bld) [Mass/Vol]8.3 g/dLLow13.5-17.5[facility] Comment on above:Order Comment: While on heparinPerformed By: #### [id number] #### [facility] [address] [place] [address] Lobo Albrecht M.D. [id number] (RBC) [Entitic mass]27.9 zkUzvynb49.0-34.0[facility] Comment on above:Order Comment: While on heparinPerformed By: #### [id number] #### [facility] [address] [place], [place] [address] Lobo Albrecht M.D. [id number] (RBC) [Entitic vol]97.3 iVNalunb20.0-100.0[facility] Comment on above:Order Comment: While on heparinPerformed By: #### [id number] #### [facility] [address] [place], [place] [address] Lobo Albrecht M.D. [id number] CORPUSCULAR HEMOGLOBIN CONC28.6 g/dLLow31.0-37.0[facility]cy HospitalComment on above:Order Comment: While on heparinPerformed By: #### [id number] #### [facility] [address] [place], [place] [id number] Lobo Albrecht M.D. [id number] mean volume (Bld) [Entitic vol]9.6 fLNormal9.4-12.4[facility] HospitalComment on above:Order Comment: While on heparinPerformed By: #### [id number] #### [facility] [address] [place] [address] Lobo Albrecht M.D. [id number] (Bld) [#/Vol]331 10*3/bACqqjvz337-139[facility] Comment on above:Order Comment: While on heparinPerformed By: #### [id number] #### [facility] [address] [place], [place] [address] Lobo Albrecht M.D. [id number] (Bld) [#/Vol]2.98 10*6/uLLow4.50-5.90[facility] HospitalComment on above:Order Comment: While on heparinPerformed By: #### [id number] #### [facility] [address] [place], [place] [address] Lobo Albrecht M.D. [id number] (Bld) [#/Vol]13.90 10*3/uLHigh4.50-11.00[facility] HospitalComment on above:Order Comment: While on heparinPerformed By: #### [id number] #### [facility] [address] [place], [place] [address] Lobo Albrecht M.D. [id number] WITH AUTO DIFFERENTIALon [id number] NRBC0.0 %[facility] HospitalComment on above:Performed By: #### [id number] ####[facility] [address] [address] Oskar Ballard M.D. [id number] NRBC ABS COUNT 0.00 K/mcLNormal0.00-0.00[facility] HospitalComment on above:Performed By: #### [id number] #### LAB [address] [address] Oskar Ballard M.D. [id number] ABSOLUTE COUNT0.05 K/mcLNormal0.00-0.30[facility] HospitalComment on above:Performed By: #### [id number] #### LAB [address] [address] Oskar Ballard M.D. [id number]/100 WBC (Bld)0.4 %[facility] HospitalComment on above:Performed By: #### [id number] #### LAB [address] [address] Oskar Ballard M.D. [id number] (Bld) [#/Vol]0.36 10*3/uLNormal0.00-0.50[facility] Comment on above:Performed By: #### [id number] #### LAB [address] [address] Oskar Ballard M.D. [id number]/100 WBC (Bld)3.1 %[facility] HospitalComment on above:Performed By: #### [id number] #### LAB [address] [address] Oskar Ballard M.D. [id number] distribution width (RBC) [Ratio]18.6 %High11.6-14.8 [facility] HospitalComment on above:Performed By: #### [id number] #### LAB [address] [address] Oskar Ballard M.D. [id number] Hematocrit (Bld) [Volume fraction]29.2 %Low41.0-53.0[facility] HospitalComment on above:Performed By: #### [id number] #### LAB [address] [address] Oskar Ballard M.D. [id number] (Bld) [Mass/Vol]8.6 g/dLLow 13.5-17.5[facility] HospitalComment on above:Performed By: #### [id number] #### LAB [address] [address] Oskar Ballard M.D. [id number] IG ABSOLUTE0.08 K/mcLNormal0.00-0.30[facility] HospitalComment on above:Performed By: #### [id number] #### LAB [address] [address] Oskar Ballard M.D. [id number] PERCENT0.70 %[facility] HospitalComment on above:Result Comment: The IG parameter is the percentage of metamyelocytes, myelocytes and promyelocytes.An immature granulocyte count (IG) of 1% or more suggests the possibility of infection, an IG countof 3% is very likely related to an infection.Performed By: #### [id number] #### LAB [address] [place] [address] Oskar Ballard M.D. [id number] (Bld) [#/Vol]0.48 10*3/uLLow0.90-4.00[facility] HospitalComment on above:Performed By: #### [id number] #### LAB [address] [address] Oskar Ballard M.D. [id number]/100 WBC (Bld)4.1 %[facility] Comment on above:Performed By: #### [id number] #### LAB [address] [address] Oskar Ballard M.D. [id number] (RBC) [Entitic mass]28.3 zsEgokpv13.0-34.0[facility] HospitalComment on above:Performed By: #### [id number] #### LAB [address] [address] Oskar Ballard M.D. [id number] (RBC) [Entitic vol]96.1 bJLkzbmo72.0-100.0[facility] Comment on above:Performed By: #### [id number] #### LAB [address] [address] Oskar Ballard M.D. [id number] CORPUSCULAR HEMOGLOBIN CONC29.5 g/dLLow31.0-37.0[facility] HospitalComment on above:Performed By: #### [id number] #### LAB [address] [address] Oskar Ballard M.D. [id number] (Bld) [#/Vol]0.65 10*3/uLNormal0.30-0.90 [facility] on above:Performed By: #### [id number] #### LAB [address] [address] Oskar Ballard M.D. [id number] Monocytes/100 WBC (Bld)5.6 %[facility] HospitalComformerly [facility] on above:Performed By: #### [id number] #### LAB [address] [address] Oskar Ballard M.D. [id number] ABSOLUTE COUNT10.05 K/mcLHigh1.70-7.00 [facility] on above:Performed By: #### [id number] #### LAB [address] [address] Oskar Ballard M.D. [id number] Neutrophils/100 WBC (Bld)86.1 %[facility] HospitalComformerly [facility] on above: Performed By: #### [id number] #### LAB [address] [address] Oskar Ballard M.D. [id number] mean volume (Bld) [Entitic vol]9.7 fLNormal9.4-12.4[facility] HospitalComformerly [facility] on above:Performed By: #### [id number] #### LAB [address] [address] Oskar Ballard M.D. [id number] (Bld) [#/Vol]377 10*3/cOWolgqd013-543[facility] Comment on above:Performed By: #### [id number] #### LAB [address] [place], [place] [address] Oskar Ballard M.D. [id number] ([facility]) [#/Vol]3.04 10*6/uLLow4.50-5.90[facility] HospitalComment on above:Performed By: #### [id number] #### LAB [address] [place], [place] [address] Oskar Ballard M.D. [id number] (d) [#/Vol]11.67 10*3/uLHigh4.50-11.00[facility] HospitalComment on above:Performed By: #### [id number] #### LAB [address] [place], [place] [address] Oskar Ballard M.D. [id number] LIMITEDon 09-26-2025 ECHOCARDIOGRAM LIMITEDSummary 1. Limited Doppler interrogation transthoracic echocardiogram is performed. 2. Focused views were performed in the invasive procedure laboratory to guide placement of transcatheter aortic valve (TAVR). Images were reviewed directly by the performing physicians. A complete post TAVR study including full Doppler will be performed subsequently. 3. Left ventricular systolic function is reduced on available views with apparent anterolateral wall motion abnormality. 4. A 29 mm Evolut transcatheter aortic valve replacement (TAVR) is visualized and well seated in the aortic position. 5. There is no regurgitation of the TAVR aortic valve, as assessed on limited Doppler views either paravalvular or valvular. Vmax 1.2 m/sec, mean gradient 3mmHg. 6. There is no pericardial effusion. Ordering Provider: Hali Harley Referring Physician: Gracie Miller Reading Physician: Anita Barahona MD Inspector Precision: Radha Boss RDCS Attending Physician: Marry [facility] Hospitalists Patient Info Site Location: Exam Location: [facility] Name: Lorenzo Amato Age: 55 years : 1970 Gender: Male Ht: 175 cm Wt: 129 kg BSA: 2.57 m2 HR: 101 bpm BP: 92 / 59 mmHg Technical Quality: Good Exam Date: 09/26/2025 6:59 AM Patient Status: INPATIENT Exam Type: ECHOCARDIOGRAM LIMITED Study Info Indications Z95.2 - Presence of prosthetic heart valve [id number] BMI: 42.09 kg/m2 History/Risk Factors Hypertension: Yes Dyslipidemia: Yes Coronary Artery Disease (CAD) Yes Diabetes Mellitus: Type II Tobacco Use: Never History/Risk Factors . Prior Interventions Transcatheter Intervention: TAVR Replacement Valve Size: 29MM EVOLUT Procedure(s): Limited Doppler interrogation transthoracic echocardiogram is performed. Left Ventricle Left ventricular systolic function is reduced on available views with apparent anterolateral wall motion abnormality. Aortic Valve A 29 mm Evolut transcatheter aortic valve replacement (TAVR) is visualized and well seated in the aortic position. There is no regurgitation of the TAVR aortic valve, as assessed on limited Doppler views either paravalvular or valvular. Vmax 1.2 m/sec, mean gradient 3mmHg. Pericardium/Pleural There is no pericardial effusion. Aortic Valve Name Value Normal AV Doppler AV Peak Velocity 1.2 m/s AV Peak Gradient 6 mmHg AV Mean Gradient 3 mmHg AV VTI 20 cm AV Accel Time 103 ms Report Signatures Finalized by Anita Barahona MD on 09/26/2025 02:20 [facility] MAGNESIUM LEVELon [id number] [Mass/Vol]1.9 mg/dLNormal1.6-2.4[facility] HospitalComment on above:Performed By: #### [id number] #### [facility] [address] [facility] [place] [place] [address] Oskar Ballard M.D. [id number] NOTEon [id number] NOTEDate of service 09/26/2025 SURGEON Kike Kim MD Co-surgeon Melba Singh MD FOOD COOKING MACHINE OPERATOR Blake Ríos MD PREOPERATIVE DIAGNOSIS Severe symptomatic aortic stenosis. POSTOPERATIVE DIAGNOSIS Same PROCEDURE PERFORMED Percutaneous right transfemoral transcatheter aortic valve replacement with 29 Medtronic device ANESTHESIA Local with sedation. No qualified surgical supplies sterilizer available to assist. Due to the complexity of the case, all assistants were required. FINDINGS Successful implantation. No significant or AI. No pericardial effusion. No aortic complication. Patent coronary arteries. HISTORY OF PRESENT ILLNESS Patient with severe symptomatic aortic stenosis. She was felt to be high risk for surgical aortic valve replacement. She was discussed in a multidisciplinary heart team fashion, found to be a reasonable candidate for transfemoral transcatheter aortic valve replacement. Risks and benefits were discussed and she agreed to proceed. PROCEDURE IN DETAIL After informed consent was obtained, patient was taken to the operating theater, placed supine on the laboratory engineer table, induced under state of conscious sedation. Patient was positioned, padded, prepped and draped in a standard fashion for transcatheter aortic valve replacement . Time-out was called, identifying the patient we were performing said procedure, all were in agreement and antibiotics had been given prior to skin incision. Percutaneous , right basilic vein could not be accessed right and left femoral vein could not be accessed, rigt and leftfemoral artery access were obtained with 4-Djiboutian micropuncture sets under ultrasound guidance and 6-Djiboutian sheaths were placed. Perclose was placed x1 in a pre-close fashion in the right femoral artery and the Ivan eSheath was placed over a stiff wire. Transvenous pacer could not be floated into the right ventricle therefore pacing was accomplished with the pigtail wire into the left ventricular cavity A 5-Djiboutian pigtail catheter was placed from the left femoral access into the noncoronary sinus . We then crossed the aortic valve from an AL1 catheter after the heparin had been administered and circulated and exchanged for a pigtail catheter and simultaneous pressure measurements were performed. After the pressure measure was performed, the Confida wire was placed into the LV and over the Confida wire the transcatheter heart valve was loaded, mated to the balloon and positioned across the anulus and deployed under rapid ventricular pacing at 160 beats per minute and the delivery system was removed Transthoracic echo showed no significant or AI. Contrast aortography showed patent coronary arteries. No significant AI. No aortic dissection. The pigtail catheters were brought back into the descending aorta and then out of the left femoral artery access protamine was administered and hemostasis was obtained after the eSheath was removed and the Perclose was cinched with adequate hemostasis. On the right side . I was scrubbed and present for the entire case. Patient was taken to the recovery unit in a stable condition. AUTHENTICATED BY KIKE KIM ON 09/26/2025 14:04:18[facility] POC GLUCOSE - [facility] [id number] [Mass/Vol]325 mg/iMSmik64-14Nekrmzzqv[address] [place], [place] [address]Glucose [Mass/Vol]297 mg/tKUkud21-67Srqjvcidf47 [address] StreetGlucose [Mass/Vol] 211 mg/lKFhrv53-96Gonfomdbi47 [address] StreetGlucose [Mass/Vol]133 mg/tXLzll36-6501 [address] StreetGlucose [Mass/Vol]96 mg/iPRswuwi84-21Hhzmtiwei42 [address] StreetGlucose [Mass/Vol]65 mg/kVKtljky16-71Bnedbbdmf01 [address] StreetGlucose [Mass/Vol]62 mg/dLLow [address] [place], [place] [address]Glucose [Mass/Vol]109 mg/dKCcqp47-27Viiiagyft[address] Glucose [Mass/Vol]71 mg/cMTzzpwb96-59Fjhyxkken31 [address] StreetGlucose [Mass/Vol]86 mg/mWJhlxsi57-68Hptkxvekx31 [address] StreetGlucose [Mass/Vol]63 mg/jJVnb69-80Gklsxrxtm48 [address] StreetGlucose [Mass/Vol]100 mg/tVXrfd21-64Emyskjhrb47 [address] StreetGlucose [Mass/Vol] 178 mg/wAOkid77-67Cpkidfcip47 [address] StreetRENAL FUNCTION PANELon 99-71-0351Jrrvmee [Mass/Vol]3.0 g/dLLow3.2-5.2MMartin Memorial HospitalComment on above:Order Comment: [facility] has implemented the eGFR calculation approach that does not have a coefficient for race that conforms to the NKF-ASN Task Force Recommendations.Performed By: #### [id number] #### LAB [address] [address] Oskar Ballard M.D. [id number] gap [Moles/Vol] 27 mmol/WYicc19-72ZuavuuvidLima Memorial Hospital on above:Order Comment: [facility] has implemented the eGFR calculation approach that does not have a coefficient for race that conforms to the NKF-ASN Task Force Recommendations.Performed By: #### [id number] #### LAB [address] [address] Oskar Ballard M.D. [id number] [Mass/Vol]8.8 mg/dLNormal 8.4-10.2MUniversity [facility]als [facility] on above:Order Comment: [facility] has implemented the eGFR calculation approach that does not have a coefficient for race that conforms to the NKF-ASN Task Force Recommendations. Performed By: #### [id number] #### LAB [address] [address] Oskar Ballard M.D. [id number] [Moles/Vol]89 mmol/KMfn49-894 [facility] on above:Order Comment: [facility] has implemented the eGFR calculation approach that does not have a coefficient for race that conforms to the NKF-ASN Task Force Recommendations.Performed By: #### [id number] #### LAB [address] [address] Oskar Ballard M.D. [id number] [Mass/Vol]7.38 mg/dLHigh0.50-1.30[facility] on above:Order Comment: [facility] has implemented the eGFR calculation approach that does not have a coefficient for race that conforms to the NKF-ASN Task Force Recommendations.Performed By: #### [id number] #### LAB [address] [address] Oskar Ballard M.D. [id number] mL/min/1.73 m2Low>=60[facility] HospitalComment on above: Order Comment: [facility] has implemented the eGFR calculation approach that does not have a coefficient for race that conforms to the NKF-ASN Task Force Recommendations.Result Comment: Estimated GFR was calculated using the 2020 CKD-EPI creatinine equation.Performed By: #### [id number] ####[facility] LAB [address] [address] Oskar Ballard M.D. [id number] [Mass/Vol]134 mg/mRRkdt53-63Mdneccloo[address] [place] [address] on above:Order Comment: [facility] has implemented the eGFR calculation approach that does not have a coefficient for race that conforms to the NKF-ASN Task Force Recommendations.Performed By: #### [id number] #### LAB [address] [address] Oskar Ballard M.D. [id number] (Bld) [Moles/Vol]22 mmol/VPtmdki05-61UmwwdwrdcLima Memorial Hospital on above:Order Comment: [facility] has implemented the eGFR calculation approach that does not have a coefficient for race that conforms to the NKF-ASN Task Force Recommendations.Performed By: #### [id number] #### LAB [address] [address] Oskar Ballard M.D. [id number] [Mass/Vol] 8.3 mg/dLMan Appalachian [facility] Hospital2.7-4.5[facility] on above:Order Comment: [facility] has implemented the eGFR calculation approach that does not have a coefficient for race that conforms to the NKF-ASN Task Force Recommendations.Performed By: #### [id number] ####[facility] LAB [address] [address] Oskar Ballard M.D. [id number] [Moles/Vol]3.5 mmol/L Normal3.5-5.1MUniversity Hospitals [facility]ar[facility] on above:Order Comment: [facility] has implemented the eGFR calculation approach that does not have a coefficient for race that conforms to the NKF-ASN Task Force Recommendations.Performed By: #### [id number] #### LAB [address] [address] Oskar Ballard M.D. [id number] [Moles/Vol]134 mmol/LLow 135-145[facility] on above:Order Comment: [facility] has implemented the eGFR calculation approach that does not have a coefficient for race that conforms to the NKF-ASN Task Force Recommendations. Performed By: #### [id number] #### LAB [address] [address] Oskar Ballard M.D. [id number] nitrogen [Mass/Vol]46 mg/dLHigh8-25 [facility] on above:Order Comment: [facility] has implemented the eGFR calculation approach that does not have a coefficient for race that conforms to the NKF-ASN Task Force Recommendations.Performed By: #### [id number] #### LAB [address] [address] Oskar Ballard M.D. [id number] nitrogen/Creatinine [Mass ratio]6.2 mg/mgLow10.0-20.0 [facility] on above:Order Comment: [facility] has implemented the eGFR calculation approach that does not have a coefficient for race that conforms to the NKF-ASN Task Force Recommendations.Performed By: #### [id number] #### LAB [address] [address] Oskar Ballard M.D. [id number] AORTIC VALVE REPLACEMENTon 09-26-2025 TRANSCATHETER AORTIC VALVE REPLACEMENTThis is a summary report. The complete report is available in the patient's medical record. If you cannot access the medical record, please contact the sending organization for a detailed fax or copy. Impression: Successful transfemoral transcatheter aortic valve replacement with a 29 mm Evolut FX+ valve No qualified Resident was available to assist in the case therefore due to the complexity,Blake Ríos MD was utilized as my assistant spa director Recommendations: Continue medical therapy Aggressive HD for significant volume overload Transcatheter Procedure A transcatheter valve replacement was performed on the aortic valve. The procedure was performed as an elective procedure. Access site: femoral. Transcatheter valve replacement: VALVE 29MM EVOLUT FX PLUS AORTIC. Rapid ventricular pacing was used. Transvenous pacing site : Pace on wire. . Post-delivery valvuloplasty not performed. . Post dilation regurgitation: none. . A second valve was not required.[facility] HospitalAPTT HEPARIN COVERAGEon [id number] Coag (Bld) [Time]72 [address] StreetComment on above: Order Comment: Therapeutic range for APTT's is 68 - 104 secondsPerformed By: #### [id number] #### LAB [address] [address] Oskar Ballard M.D. [id number] Coag (Bld) [Time][address] Comment on above:Order Comment: Therapeutic range for APTT's is 68 - 104 seconds Performed By: #### [id number] #### [facility] [address] [place] [address] Lobo Albrecht M.D. [id number] WITH AUTO DIFFERENTIALon [id number] NRBC0.2 %[facility] HospitalComment on above:Performed By: #### [id number] #### LAB [address] [place] [address] Oskar Ballard M.D. [id number] NRBC ABS COUNT0.02 K/mcLHigh0.00-0.00[facility] HospitalComment on above:Performed By: #### [id number] #### LAB [address] [address] Oskar Ballard M.D. [id number] ABSOLUTE COUNT0.04 K/mcLNormal0.00-0.30[facility] Comment on above:Performed By: #### [id number] #### LAB [address] [address] Oskar Ballard M.D. [id number]/100 WBC (Bld)0.4 %[facility] HospitalComment on above: Performed By: #### [id number] #### [facility] LAB [address] [address] Oskar Ballard M.D. [id number] (Bld) [#/Vol]0.28 10*3/uLNormal0.00-0.50[facility] Comment on above:Performed By: #### [id number] #### LAB [address] [address] Oskar Ballard M.D. [id number]/100 WBC (Bld)2.8 %[facility] HospitalComment on above:Performed By: #### [id number] #### LAB [address] [address] Oskar Ballard M.D. [id number] distribution width (RBC) [Ratio]18.4 %High11.6-14.8 [facility] HospitalComment on above:Performed By: #### [id number] #### LAB [address] [address] Oskar Ballard M.D. [id number] (Bld) [Volume fraction]27.8 %Low41.0-53.0[facility] Comment on above:Performed By: #### [id number] #### LAB [address] [address] Oskar Ballard M.D. [id number] (Bld) [Mass/Vol]8.0 g/dLLow13.5-17.5[facility] Comment on above:Performed By: #### [id number] #### LAB [address] [address] Oskar Ballard M.D. [id number] ABSOLUTE0.05 K/mcLNormal0.00-0.30[facility] HospitalComment on above:Performed By: #### [id number] #### LAB [address] [address] Oskar Ballard M.D. [id number] PERCENT0.50 %[facility] HospitalComment on above:Result Comment: The IG parameter is the percentage of metamyelocytes, myelocytes and promyelocytes.An immature granulocyte count (IG) of 1% or more suggests the possibility of infection, an IG countof 3% is very likely related to an infection.Performed By: #### [id number] #### LAB [address] [address] Oskar Ballard M.D. [id number] (Bld) [#/Vol]0.39 10*3/uLLow0.90-4.00[facility] Comment on above:Performed By: #### [id number] #### LAB [address] [address] Oskar Ballard M.D. [id number]/100 WBC (Bld)3.9 %[facility] HospitalComment on above:Performed By: #### [id number] #### LAB [address] [address] Oskar Ballard M.D. [id number] (RBC) [Entitic mass]27.7 flNiqvwq49.0-34.0[facility] Comment on above:Performed By: #### [id number] #### LAB [address] [address] Oskar Ballard M.D. [id number] (RBC) [Entitic vol]96.2 qQRbtgjz91.0-100.0[facility] Comment on above:Performed By: #### [id number] #### LAB [address] [address] Oskar Ballard M.D. [id number] CORPUSCULAR HEMOGLOBIN CONC28.8 g/dLLow31.0-37.0[facility] HospitalComment on above:Performed By: #### [id number] #### LAB [address] [address] Oskar Ballard M.D. [id number] (Bld) [#/Vol]0.66 10*3/uLNormal0.30-0.90[facility] Comment on above:Performed By: #### [id number] #### LAB [address] [place] [address] Oskar Ballard M.D. [id number]/100 WBC (Bld)6.6 %[facility] HospitalComment on above: Performed By: #### [id number] #### LAB [address] [address] Oskar Ballard M.D. [id number] ABSOLUTE COUNT8.54 K/mcLHigh1.70-7.00[facility] Comment on above:Performed By: #### [id number] #### LAB [address] [address] Oskar Ballard M.D. [id number]/100 WBC (Bld)85.8 %[facility] HospitalComment on above:Performed By: #### [id number] #### LAB [address] [address] Oskar Ballard M.D. [id number] mean volume (Bld) [Entitic vol]9.5 fLNormal9.4-12.4[facility] HospitalComment on above:Performed By: #### [id number] #### LAB [address] [place] [address] Oskar Ballard M.D. [id number] (Bld) [#/Vol]326 10*3/iUYrkvdt260-648Gxfosdigv Hospital Comment on above:Performed By: #### [id number] #### LAB [address] [place] [address] Oskar Ballard M.D. [id number] (Bld) [#/Vol]2.89 10*6/uLLow4.50-5.90[facility] HospitalComment on above:Performed By: #### [id number] #### LAB [address] [address] Oskar Ballard M.D. [id number] (Bld) [#/Vol]9.96 10*3/uLNormal4.50-11.00[facility] HospitalComment on above:Performed By: #### [id number] #### LAB [address] [address] Oskar Ballard M.D. [id number] LEVELon 06-86-6992Hssfxjsls [Mass/Vol]1.8 mg/dLNormal1.6-2.4 [facility] HospitalComment on above:Performed By: #### [id number] #### LAB [address] [address] Oskar Ballard M.D. [id number] GLUCOSE - [facility] CL[facility]ICSon 79-08-4508Zufbtgd [Mass/Vol]163 mg/cNMvwg05-19Qkelucgyf HospitalGlucose [Mass/Vol]144 mg/wGQten09-98Abyxlzmiy HospitalGlucose [Mass/Vol] 99 mg/wTLgxhis88-03Wnlnrwqgv HospitalGlucose [Mass/Vol]238 mg/bJQqmg55-60 [facility] HospitalGlucose [Mass/Vol]230 mg/mPWvja35-81Phvusjpxe47 Johnson StreetRENAL FUNCTION PANELon 24-18-4317Gejwamr [Mass/Vol]3.0 g/dLLow3.2-5.2MMartin Memorial HospitalComment on above:Order Comment: Injury/Trauma or Illness?:Illness/Other How long have you had these symptoms (acute/chronic)?:Acute Reason for exam?:Abdominal pain, acute, nonlocalized, Peritonitis or perforation suspected, Sepsis,Per nephrology concerning for EPS Type of Exam?:Initial Additional signs and symptoms?:SOBPerformed By: #### [id number] #### LAB [address] [address] Oskar Ballard M.D. [id number] gap [Moles/Vol]23 mmol/CHgym74-24Kbttnlnph HospitalComment on above:Order Comment: Injury/Trauma or Illness?:Illness/Other How long have you had these symptoms (acute/chronic)?:Acute Reason for exam?:Abdominal pain, acute, nonlocalized, Peritonitis or perforation suspected, Sepsis,Per nephrology concerning for EPS Type of Exam?:Initial Additional signs and symptoms?:SOBPerformed By: #### [id number] #### LAB [address] [address] Oskar Ballard M.D. [id number] [Mass/Vol]8.4 mg/dLNormal8.4-10.2MMartin Memorial HospitalComformerly [facility] on above:Order Comment: Injury/Trauma or Illness?:Illness/Other How long have you had these symptoms (acute/chronic)?:Acute Reason for exam?:Abdominal pain, acute, nonlocalized, Peritonitis or perforation suspected, Sepsis,Per nephrology concerning for EPS Type of Exam?:Initial Additional signs and symptoms?:SOBPerformed By: #### [id number] #### LAB [address] [address] Oskar Ballard M.D. [id number] [Moles/Vol]88 mmol/YXxg70-999Wwqhyawpk HospitalComment on above:Order Comment: Injury/Trauma or Illness?:Illness/Other How long have you had these symptoms (acute/chronic)?:Acute Reason for exam?:Abdominal pain, acute, nonlocalized, Peritonitis or perforation suspected, Sepsis,Per nephrology concerning for EPS Type of Exam?:Initial Additional signs and symptoms?:SOBPerformed By: #### [id number] #### LAB [address] [address] Oskar Ballard M.D. [id number] Creatinine [Mass/Vol]7.39 mg/dLHigh0.50-1.30[facility] HospitalComformerly [facility] on above: Order Comment: Injury/Trauma or Illness?:Illness/Other How long have you had these symptoms (acute/chronic)?:Acute Reason for exam?:Abdominal pain, acute, nonlocalized, Peritonitis or perforation suspected, Sepsis,Per nephrology concerning for EPS Type of Exam?:Initial Additional signs and symptoms?:SOBPerformed By: #### [id number] #### LAB [address] [address] Oskar Ballard M.D. [id number] mL/min/1.73 m2Low>=60[facility] HospitalComformerly [facility] on above:Order Comment: Injury/Trauma or Illness?:Illness/Other How long have you had these symptoms (acute/chronic)?:Acute Reason for exam?:Abdominal pain, acute, nonlocalized, Peritonitis or perforation suspected, Sepsis,Per nephrology concerning for EPS Type of Exam?:Initial Additional signs and symptoms?:SOBResult Comment: Estimated GFR was calculated using the 2020 CKD-EPI creatinine equation.Performed By: #### [id number] #### LAB [address] [address] Oskar Ballard M.D. [id number] Glucose [Mass/Vol]246 mg/lWIklr56-60Lmsazfrse[address] on above:Order Comment: Injury/Trauma or Illness?:Illness/Other How long have you had these symptoms (acute/chronic)?:Acute Reason for exam?:Abdominal pain, acute, nonlocalized, Peritonitis or perforation suspected, Sepsis,Per nephrology concerning for EPS Type of Exam?:Initial Additional signs and symptoms?:SOBPerformed By: #### [id number] ####[facility] LAB [address] [address] Oskar Ballard M.D. [id number] (Bld) [Moles/Vol]24 mmol/WWrxdtq30-64LrwfzyoenLima Memorial Hospital on above:Order Comment: Injury/Trauma or Illness?:Illness/Other How long have you had these symptoms (acute/chronic)?:Acute Reason for exam?:Abdominal pain, acute, nonlocalized, Peritonitis or perforation suspected, Sepsis,Per nephrology concerning for EPS Type of Exam?:Initial Additional signs and symptoms?:SOBPerformed By: #### [id number] #### LAB [address] [address] Oskar Ballard M.D. [id number] [Mass/Vol]8.8 mg/dLMan [facility]2.7-4.5[facility] HospitalComformerly [facility] on above:Order Comment: Injury/Trauma or Illness?:Illness/Other How long have you had these symptoms (acute/chronic)?:Acute Reason for exam?:Abdominal pain, acute, nonlocalized, Peritonitis or perforation suspected, Sepsis,Per nephrology concerning for EPS Type of Exam?:Initial Additional signs and symptoms?:SOBPerformed By: #### [id number] #### LAB [address] [address] Oskar Ballard M.D. [id number] [Moles/Vol]3.6 mmol/LNormal3.5-5.[address] [place] [address] on above:Order Comment: Injury/Trauma or Illness?:Illness/Other How long have you had these symptoms (acute/chronic)?:Acute Reason for exam?:Abdominal pain, acute, nonlocalized, Peritonitis or perforation suspected, Sepsis,Per nephrology concerning for EPS Type of Exam?:Initial Additional signs and symptoms?:SOBPerformed By: #### [id number] #### LAB [address] [address] Oskar Ballard M.D. [id number] [Moles/Vol]131 mmol/NVov319-732DbfuugjyeLima Memorial Hospital on above:Order Comment: Injury/Trauma or Illness?:Illness/Other How long have you had these symptoms (acute/chronic)?:Acute Reason for exam?:Abdominal pain, acute, nonlocalized, Peritonitis or perforation suspected, Sepsis,Per nephrology concerning for EPS Type of Exam?:Initial Additional signs and symptoms?:SOBPerformed By: #### [id number] #### LAB [address] [address] Oskar Ballard M.D. [id number] nitrogen [Mass/Vol]51 mg/dL70 [address] StreetComformerly [facility] on above:Order Comment: Injury/Trauma or Illness?:Illness/Other How long have you had these symptoms (acute/chronic)?:Acute Reason for exam?:Abdominal pain, acute, nonlocalized, Peritonitis or perforation suspected, Sepsis,Per nephrology concerning for EPS Type of Exam?:Initial Additional signs and symptoms?:SOBPerformed By: #### [id number] #### LAB [address], [place] [address] Oskar Ballard M.D. [id number] nitrogen/Creatinine [Mass ratio]6.9 mg/mgLow10.0-20.0[facility] HospitalComment on above:Order Comment: Injury/Trauma or Illness?:Illness/Other How long have you had these symptoms (acute/chronic)?:Acute Reason for exam?:Abdominal pain, acute, nonlocalized, Peritonitis or perforation suspected, Sepsis,Per nephrology concerning for EPS Type of Exam?:Initial Additional signs and symptoms?:SOBPerformed By: #### [id number] #### LAB [address], [place] [address] Oskar Ballard M.D. [id number] VERIFICATIONon 25-81-8842LZC and Rh group Nom (Bld)Blood group AB Rh(D) negative [facility] HospitalABO and Rh group Nom (d)ABO/Rh VerificationNoOhioHealth Dublin Methodist HospitalComment on above:Result Comment: Patient's ABO/Rh is verified. ANTIBODY IDENTIFICATION-Jb 94-63-7320XSBNZYYQ IDENTIFICATION-KANTIBODY IDENTIFICATION: Anti-K Anti-K is a clinically significant antibody belonging to the [place] system. It can cause hemolytic transfusion reactions and hemolytic disease of the . The K antigen is present in 9% of the population. In the event that blood is required, additional time will be necessary to obtain compatible units.[facility] HospitalANTIBODY IDENTIFICATION-RLXon 28-04-6498SLVWDOZE IDENTIFICATION-RLX ANTIBODY IDENTIFICATION: RLX Possible presence of interfering rouleaux. Additional time may be required for compatibility testing if red cell transfusion is necessary.[facility] WITH AUTO DIFFERENTIALon 87-67-4624MIZU NRBC0.0 %[facility] HospitalComment on above:Performed By: #### [id number] #### LAB [address], [place] [address] Oskar Ballard M.D. [id number] NRBC ABS COUNT 0.00 K/mcLNormal0.00-0.00[facility] HospitalComment on above:Performed By: #### [id number] #### LAB [address] [address] Oskar Ballard M.D. [id number] ABSOLUTE COUNT0.03 K/mcLNormal0.00-0.30[facility] HospitalComment on above:Performed By: #### [id number] #### LAB [address] [address] Oskar Ballard M.D. [id number]/100 WBC (Bld)0.3 %[facility] HospitalComment on above:Performed By: #### [id number] #### LAB [address] [address] Oskar Ballard M.D. [id number] (Bld) [#/Vol]0.25 10*3/uLNormal0.00-0.50[facility] Comment on above:Performed By: #### [id number] #### LAB [address] [address] Oskar Ballard M.D. [id number]/100 WBC (Bld)2.4 %[facility] HospitalComment on above:Performed By: #### [id number] #### LAB [address] [address] Oskar Ballard M.D. [id number] distribution width (RBC) [Ratio]18.2 %High11.6-14.8 [facility] HospitalComment on above:Performed By: #### [id number] #### LAB [address] [address] Oskar Ballard M.D. [id number] Hematocrit (Bld) [Volume fraction]25.8 %Low41.0-53.0[facility] HospitalComment on above:Performed By: #### [id number] #### LAB [address] [address] Oskar Ballard M.D. [id number] (Bld) [Mass/Vol]7.8 g/dLLow 13.5-17.5[facility] HospitalComment on above:Performed By: #### [id number] #### LAB [address] [address] Oskar Ballard M.D. [id number] IG ABSOLUTE0.06 K/mcLNormal0.00-0.30[facility] HospitalComment on above:Performed By: #### [id number] #### LAB [address] [address] Oskar Ballard M.D. [id number] PERCENT0.60 %[facility] HospitalComment on above:Result Comment: The IG parameter is the percentage of metamyelocytes, myelocytes and promyelocytes.An immature granulocyte count (IG) of 1% or more suggests the possibility of infection, an IG countof 3% is very likely related to an infection.Performed By: #### [id number] #### LAB [address] [address] Oskar Ballard M.D. [id number] (Bld) [#/Vol]0.38 10*3/uLLow0.90-4.00[facility] HospitalComment on above:Performed By: #### [id number] #### LAB [address] [address] Oskar Ballard M.D. [id number]/100 WBC (Bld)3.6 %[facility] Comment on above:Performed By: #### [id number] #### LAB [address] [address] Oskar Ballard M.D. [id number] (RBC) [Entitic mass]28.5 elTmrnjl94.0-34.0[facility] HospitalComment on above:Performed By: #### [id number] #### LAB [address] [address] Oskar Ballard M.D. [id number] (RBC) [Entitic vol]94.2 iOTqysfn78.0-100.0[facility] Comment on above:Performed By: #### [id number] #### LAB [address] [address] Oskar Ballard M.D. [id number] CORPUSCULAR HEMOGLOBIN CONC30.2 g/dLLow31.0-37.0[facility] HospitalComment on above:Performed By: #### [id number] #### LAB [address] [address] Oskar Ballard M.D. [id number] (Bld) [#/Vol]0.72 10*3/uLNormal0.30-0.90 [facility] HospitalComment on above:Performed By: #### [id number] #### LAB [address] [address] Oskar Ballard M.D. [id number] Monocytes/100 WBC (Bld)6.8 %[facility] HospitalComment on above:Performed By: #### [id number] #### LAB [address] [address] Oskar Ballard M.D. [id number] ABSOLUTE COUNT9.11 K/mcLHigh1.70-7.00 [facility] HospitalComment on above:Performed By: #### [id number] #### LAB [address] [place] [address] Oskar Ballard M.D. [id number] Neutrophils/100 WBC (Bld)86.3 %[facility] HospitalComment on above: Performed By: #### [id number] #### LAB [address] [address] Oskar Ballard M.D. [id number] mean volume (Bld) [Entitic vol]9.8 fLNormal9.4-12.4[facility] HospitalComment on above:Performed By: #### [id number] #### LAB [address] [place] [address] Oskar Ballard M.D. [id number] (d) [#/Vol]320 10*3/nRPqcasu091-957Xijxyocqx Hospital Comment on above:Performed By: #### [id number] #### LAB [address], [place] [address] Oskar Ballard M.D. [id number] (d) [#/Vol]2.74 10*6/uLLow4.50-5.90[facility] HospitalComment on above:Performed By: #### [id number] #### LAB [address], [place] [address] Oskar Ballard M.D. [id number] (d) [#/Vol]10.55 10*3/uLNormal4.50-11.00[facility] Comment on above:Performed By: #### [id number] #### LAB [address] [address] Oskar Ballard M.D. [id number] DIRECT ANTIGLOBULIN TESTon 63-07-0623PZUUZAJJAC DIRECT ANTIGLOBULIN TESTNegativeLutheran HospitalCT TAVR CHEST ABDOMEN PELVIS WITHOUT HYDRATIONon 66-53-3185ES TAVR CHEST ABDOMEN PELVIS WITHOUT HYDRATIONEXAMINATION: CT TAVR CHEST ABDOMEN PELVIS WITHOUT HYDRATION HISTORY: ORDERING SYSTEM PROVIDED HISTORY: severe aortic stenosis, TAVR work up, TECHNOLOGIST PROVIDED HISTORY: Illness/Other Reason for exam: Severe , pre TAVR planning, supplemental read Encounter Type: Subsequent/Follow-up Additional signs and symptoms: . ORDERING SYSTEM PROVIDED DIAGNOSIS CODES: R10.9 Abdominal pain, unspecified abdominal location N18.6 ESRD (end stage renal disease) (HCC) D63.8 Anemia of chronic disease E87.1 Hyponatremia COMPARISON: None TECHNIQUE: Dose reduction techniques were achieved by using automated exposure control and/or adjustment of mA and/or kV according to patient size and/or use of iterative reconstruction technique. Spiral CT images of the chest, abdomen and pelvis with and without contrast CONTRAST: IOPAMIDOL 370 MG IODINE/ML (76 %) INTRAVENOUS SOLUTION - 100 mL, FINDINGS: There is a 9 mm pulmonary nodule at the right base which should be noted for follow-up with repeat CT chest in 3 months. No well-defined pneumonia or pneumothorax. No significant pericardial effusion. The thoracic and abdominal aorta is of normal caliber without evidence of dissection. Multiple varicose veins are present. 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 Spleen, pancreas and adrenal glands are satisfactory. There are likely calcified gallstones within the gallbladder lumen. No significant liver lesions. Mild liver cirrhosis and jtdch-pa-kunksklo ascites. The unopacified loops of small bowel and colon appear satisfactory. There is no evidence of obstruction. There is free intraperitoneal air. IMPRESSION: Interval development of free intraperitoneal air. Close clinical correlation to the significance of this finding is recommended. There is also rbtoy-fc-dlfnsdxd amount of ascites. [place] [employer] Workstation ID: [id number] Dictated by: KYLER JOHNSTON on WedSep 24, 2025 10:38:02 AM EST Transcribed by: GERARDO MAK on WedSep 24, 2025 11:24:34 AM EST Finalized by: KYLER JOHNSTON on WedSep 24, 2025 11:39:56 AM [facility] HospitalComment on above:Order Comment: Injury/Trauma or Illness?:Illness/OtherHow long have you had these symptoms (acute/ch ronic)?:ChronicReason for exam?:Severe , pre TAVR planning, supplemental readType of Exam?:Subsequent/Follow-upAdditional signs and symptoms?:.GIGGon 86-51-5993WTTSGtmjkavfDnaqdcDvepuarez HospitalHEPATIC FUNCTION PANELon 52-08-1203Rjwbvyo [Mass/Vol]3.1 g/dLLow3.2-5.2MMartin Memorial HospitalComment on above:Performed By: #### [id number] #### LAB [address], [place] [address] Oskar Ballard M.D. [id number] [Catalytic activity/Vol]297 U/LHigh 40-150[facility] HospitalComment on above:Performed By: #### [id number] #### LAB [address], [place] [address] Oskar Ballard M.D. [id number] [Catalytic activity/Vol]25 U/LNormal0-50 U/[facility] HospitalComment on above: Performed By: #### [id number] #### LAB [address] [address] Oskar Ballard M.D. [id number] [Catalytic activity/Vol]50 U/LNormal0-50 U/[facility] HospitalComment on above:Performed By: #### [id number] #### LAB [address] [address] Oskar Ballard M.D. [id number] [Mass/Vol]0.8 mg/dLNormal0.0-1.3MMartin Memorial HospitalComment on above:Performed By: #### [id number] #### LAB [address] [address] Oskar Ballard M.D. [id number].indirect [Mass/Vol]0.6 mg/dLHigh0.0-0.4[facility] HospitalComment on above:Performed By: #### [id number] #### LAB [address] [address] Oskar Ballard M.D. [id number] [Mass/Vol]7.6 g/dLNormal6.0-8.0[facility] HospitalComment on above:Performed By: #### 73736 #### LAB [address] [address] Oskar Ballard M.D. [id number] PATIENT ANTIGEN TYPEon 09-24-2025K PATIENT ANTIGEN TYPENegative NormalCleveland Clinic Mercy HospitalMAGNESIUM LEVELon 88-45-7350Btoctvgyq [Mass/Vol]1.8 mg/dLNormal1.6-2.4[facility] HospitalComment on above:Performed By: #### [id number] #### [facility] [address], [place] [address] Lobo Albrecht M.D. [id number] PRO BNPon 16-01-4114CX-PRO BNP>High0-300[facility] HospitalComment on above:Order Comment: Pride Study Cut-offsRule In:< /= 50 Years >450 pg/mL51 Years - 75 Years >900 pg/mL76 Years - 99 Years >1800 pg/mLRule Out:All patients <300 pg/mLPerformed By: #### [id number] #### LAB [address], [place] [address] Oskar Ballard M.D. [id number] GLUCOSE - RALSon 58-13-6754Akrlyne [Mass/Vol]126 mg/mXVbfe48-00Otycxtzfw47 [address] StreetGlucose [Mass/Vol]114 mg/dL46 [address] StreetGlucose [Mass/Vol]254 mg/fLMzaq78-59Dwkkdspog[address] Glucose [Mass/Vol]301 mg/bUSiei50-78Uyqupwyki47 [address] StreetPT/INRon 74-94-1944UNM Coag (PPP) [Relative time]2.3 {INR}High0.8-1.1MMartin Memorial HospitalComment on above:Order Comment: During the induction phase of oral anticoagulation, the INR may not reflect the anticoagulation status of the patient. Therapeutic ranges for INR's are:Most clinical situations: INR 2.0-3.0Mechanical Prosthetic Valve: INR 2.5-3.5Critical: INR >5.0Performed By: #### [id number] #### LAB [address], [place] [address] Oskar Ballard M.D. [id number] Coag (PPP) [Time]25.9 sHigh11.8-14.3MMartin Memorial HospitalComment on above:Order Comment: During the induction phase of oral anticoagulation, the INR may not reflect the anticoagulation status of the patient. Therapeutic ranges for INR's are:Most clinical situations: INR 2.0-3.0Mechanical Prosthetic Valve: INR 2.5- 3.5Critical: INR >5.0Performed By: #### [id number] #### LAB [address] [address] Oskar Ballard M.D. [id number] FUNCTION PANELon 14-73-0836Vcsqtht [Mass/Vol]2.9 g/dLLow3.2-5.2[facility] HospitalComment on above:Order Comment: [facility] has implemented the eGFR calculation approach that does not have a coefficient for race that conforms to the NKF-ASN Task Force Recommendations.Performed By: #### [id number] #### LAB [address] [address] Oskar Ballard M.D. [id number] gap [Moles/Vol]24 mmol/UQfjv34-41TbodpnjaaLima Memorial Hospital on above:Order Comment: [facility] has implemented the eGFR calculation approach that does not have a coefficient for race that conforms to the NKF-ASN Task Force Recommendations.Performed By: #### [id number] #### LAB [address] [address] Oskar Ballard M.D. [id number] [Mass/Vol]8.3 mg/dLLow8.4-10.2MUniversity Hospitals Samaritan [facility] on above:Order Comment: [facility] has implemented the eGFR calculation approach that does not have a coefficient for race that conforms to the NKF-ASN Task Force Recommendations.Performed By: #### [id number] #### LAB [address] [address] Oskar Ballard M.D. [id number] [Moles/Vol]91 mmol/LLow 98-108[facility] on above:Order Comment: [facility] has implemented the eGFR calculation approach that does not have a coefficient for race that conforms to the NKF-ASN Task Force Recommendations. Performed By: #### [id number] #### LAB [address] [address] Oskar Ballard M.D. [id number] [Mass/Vol]7.33 mg/dLHigh0.50-1.30 [facility] on above:Order Comment: [facility] has implemented the eGFR calculation approach that does not have a coefficient for race that conforms to the NKF-ASN Task Force Recommendations.Performed By: #### [id number] #### LAB [address] [address] Oskar Ballard M.D. [id number] mL/min/1.73 m2Low>=60[facility] on above:Order Comment: [facility] has implemented the eGFR calculation approach that does not have a coefficient for race that conforms to the NKF-ASN Task Force Recommendations.Result Comment: Estimated GFR was calculated using the 2020 CKD-EPI creatinine equation.Performed By: #### [id number] ####[facility] LAB [address] [address] Oskar Ballard M.D. [id number] [Mass/Vol]160 mg/iKRxvk96-32Jfpzszpjk[address] [place] [address] on above:Order Comment: [facility] has implemented the eGFR calculation approach that does not have a coefficient for race that conforms to the NKF-ASN Task Force Recommendations.Performed By: #### [id number] ####[facility] LAB [address] [address] Oskar Ballard M.D. [id number] (Bld) [Moles/Vol]22 mmol/LIbxpbu19-47ZdjojeijuLima Memorial Hospital on above:Order Comment: [facility] has implemented the eGFR calculation approach that does not have a coefficient for race that conforms to the NKF-ASN Task Force Recommendations.Performed By: #### [id number] #### LAB [address] [address] Oskar Ballard M.D. [id number] [Mass/Vol] 8.4 mg/dLHigh2.7-4.5[facility] on above:Order Comment: [facility] has implemented the eGFR calculation approach that does not have a coefficient for race that conforms to the NKF-ASN Task Force Recommendations.Performed By: #### [id number] ####[facility] LAB [address] [address] Oskar Ballard M.D. [id number] [Moles/Vol]3.5 mmol/L Normal3.5-5.1MUniversity Hospitals [facility]ar[facility] on above:Order Comment: [facility] has implemented the eGFR calculation approach that does not have a coefficient for race that conforms to the NKF-ASN Task Force Recommendations.Performed By: #### [id number] #### LAB [address] [place], [place] [address] Oskar Ballard M.D. [id number] [Moles/Vol]133 mmol/LLow 135-145[facility] on above:Order Comment: [facility] has implemented the eGFR calculation approach that does not have a coefficient for race that conforms to the NKF-ASN Task Force Recommendations. Performed By: #### [id number] #### LAB [address] [address] Oskar Ballard M.D. [id number] nitrogen [Mass/Vol]53 mg/dLHigh8-25 [facility] on above:Order Comment: [facility] has implemented the eGFR calculation approach that does not have a coefficient for race that conforms to the NKF-ASN Task Force Recommendations.Performed By: #### [id number] #### LAB [address] [address] Oskar Ballard M.D. [id number] nitrogen/Creatinine [Mass ratio]7.2 mg/mgLow10.0-20.0 [facility] on above:Order Comment: [facility] has implemented the eGFR calculation approach that does not have a coefficient for race that conforms to the NKF-ASN Task Force Recommendations.Performed By: #### [id number] #### LAB [address] [address] Oskar Ballard M.D. [id number] AND SCREENon 76-66-3262ZHPO AND SCREENABORH: AB Negative AB SCREEN: Positive EXPIRATION DATE: 09/27/2025 23:59 [facility] HospitalXR MANDIBLE LESS THAN 4 VIEWS (PANOREX)on 36-52-4764LE MANDIBLE LESS THAN 4 VIEWS (PANOREX) EXAMINATION: XR MANDIBLE LESS THAN 4 VIEWS (PANOREX) HISTORY: ORDERING SYSTEM PROVIDED HISTORY: severe aortic stenosis, TECHNOLOGIST PROVIDED HISTORY: Illness/Other Reason for exam: severe aortic stenosis, checking for abscess for pre-valve replacement Cancer History: . Surgery, RadiationHistory: . Encounter Type: Initial Additional signs and symptoms: . ORDERING SYSTEM PROVIDED DIAGNOSIS CODES: R10.9 Abdominal pain, unspecified abdominal location N18.6 ESRD (end stage renal disease) ([facility]) D63.8 Anemia of chronic disease E87.1 Hyponatremia severe aortic stenosis. COMPARISON: None. TECHNIQUE: Four views of the mandible. FINDINGS: There is scattered dental amalgam noted. There is appearance of dental caries involving the right central and lateral maxillary incisors. No appreciable apical lucency/abscess is identified. Mandibles intact. Mild bilateral temporomandibular joint osteoarthritis. IMPRESSION: 1. Dental caries involving the right central and lateral maxillary incisor. 2. No apical lucency/abscess identified. [facility] Workstation ID: [id number] Dictated by: ELROY ROPER on WedSep 25, 2025 6:21:31 AM EST Transcribed by: ROBEL GURROLA on WedSep 25, 2025 6:24:59 AM EST Finalized by: ELROY ROPER on WedSep 25, 2025 6:29:22 AM ESTMemorial Health System Selby General HospitalComment on above:Order Comment: Injury/Trauma or Illness?:Illness/Other How long have you had these symptoms (acute/chronic)?:Acute Reason for exam?:severe aortic stenosis, checking for abcess for pre-valve replacement History of cancer?:. Surgeries, chemotherapy, or radiation?:. Type of Exam?:Initial Additional signs and symptoms?:.CBC WITH AUTO DIFFERENTIALon 14-22-0079KUPW NRBC 0.0 %[facility] HospitalComformerly [facility] on above:Performed By: #### [id number] #### LAB [address] [address] Oskar Ballard M.D. [id number] AUTO NRBC ABS COUNT0.00 K/mcLNormal0.00-0.00[facility] HospitalComment on above: Performed By: #### [id number] ####[facility] LAB [address] [address] Oskar Ballrad M.D. [id number] ABSOLUTE COUNT0.02 K/mcLNormal 0.00-0.30[facility] HospitalComment on above:Performed By: #### [id number] #### LAB [address] [address] Oskar Ballard M.D. [id number] Basophils/100 WBC (Bld)0.2 %[facility] HospitalComment on above:Performed By: #### [id number] #### LAB [address] [address] Oskar Ballard M.D. [id number] (Bld) [#/Vol]0.18 10*3/uLNormal0.00-0.50 [facility] HospitalComment on above:Performed By: #### [id number] #### LAB [address] [address] Oskar Ballard M.D. [id number] Eosinophils/100 WBC (Bld)1.5 %[facility] HospitalComment on above:Performed By: #### [id number] #### LAB [address] [address] Oskar Ballard M.D. [id number] distribution width (RBC) [Ratio]17.9 % High11.6-14.8[facility] HospitalComment on above:Performed By: #### [id number] #### LAB [address] [address] Oskar Ballard M.D. [id number] (Bld) [Volume fraction]25.1 %Low41.0-53.0[facility] Comment on above:Performed By: #### [id number] #### LAB [address] [address] Oskar Ballard M.D. [id number] (Bld) [Mass/Vol]7.3 g/dLLow13.5-17.5[facility] HospitalComment on above:Performed By: #### [id number] #### LAB [address] [address] Oskar Ballard M.D. [id number] ABSOLUTE0.05 K/mcLNormal0.00-0.30[facility] Comment on above:Performed By: #### [id number] #### LAB [address] [address] Oskar Ballard M.D. [id number] PERCENT0.40 %[facility] HospitalComment on above:Result Comment: The IG parameter is the percentage of metamyelocytes, myelocytes and promyelocytes.An immature granulocyte count (IG) of 1% or more suggests the possibility of infection, an IG countof 3% is very likely related to an infection.Performed By: #### [id number] #### LAB [address] [address] Oskar Ballard M.D. [id number] (Bld) [#/Vol]0.29 10*3/uLLow0.90-4.00[facility] Comment on above:Performed By: #### [id number] #### LAB [address] [address] Oskar Ballard M.D. [id number]/100 WBC (Bld)2.5 %[facility] HospitalComment on above:Performed By: #### [id number] #### LAB [address] [address] Oskar Ballard M.D. [id number] (RBC) [Entitic mass]27.9 ohSnjvke86.0-34.0[facility] Comment on above:Performed By: #### [id number] #### LAB [address] [address] Oskar Ballard M.D. [id number] (RBC) [Entitic vol]95.8 tECxpznt10.0-100.0[facility] HospitalComment on above:Performed By: #### [id number] #### LAB [address] [address] Oskar Ballard M.D. [id number] CORPUSCULAR HEMOGLOBIN CONC29.1 g/dLLow31.0-37.0[facility] HospitalComment on above:Performed By: #### [id number] ####[facility] LAB [address] [address] Oskar Ballard M.D. [id number] (Bld) [#/Vol]0.75 10*3/uLNormal0.30-0.90[facility] HospitalComment on above:Performed By: #### [id number] ####[facility] LAB [address] [address] Oskar Ballard M.D. [id number]/100 WBC (Bld)6.4 %[facility] Comment on above:Performed By: #### [id number] #### LAB [address] [address] Oskar Ballard M.D. [id number] ABSOLUTE COUNT10.36 K/mcLHigh1.70-7.00[facility] HospitalComment on above:Performed By: #### [id number] ####[facility] LAB [address] [address] Oskar Ballard M.D. [id number]/100 WBC (Bld)89.0 %[facility] Comment on above:Performed By: #### [id number] ####[facility] LAB [address] [address] Oskar Ballard M.D. [id number] mean volume (Bld) [Entitic vol]9.3 fLLow9.4-12.4[facility] HospitalComment on above:Performed By: #### [id number] ####[facility] LAB [address] [address] Oskar Ballard M.D. [id number] (Bld) [#/Vol]294 10*3/mOJrwghg553-280 [facility] HospitalComment on above:Performed By: #### [id number] #### LAB [address] [address] Oskar Ballard M.D. [id number] (Bld) [#/Vol]2.62 10*6/uLLow4.50-5.90[facility] HospitalComment on above:Performed By: #### [id number] #### LAB [address] [place], [place] [address] Oskar Ballard M.D. [id number] (Bld) [#/Vol]11.65 10*3/uLHigh4.50-11.00[facility] HospitalComment on above:Performed By: #### [id number] ####[facility] LAB [address] [place], [place] [address] Oskar Ballard M.D. [id number] LEVELon 25-65-1286Thjoklcrs [Mass/Vol]1.8 mg/dLNormal1.6-2.4[facility] HospitalComment on above:Performed By: #### [id number] #### LAB [address] [place], [place] [address] Oskar Ballard M.D. [id number] GLUCOSE - [facility] CLINICSon 62-36-5697Drfslnu [Mass/Vol]214 mg/pTZtat16-64Bzjwquowf47 [address] StreetGlucose [Mass/Vol]285 mg/dL46 [address] StreetGlucose [Mass/Vol]243 mg/xBUfju81-48Pnsysdjzh[address] Glucose [Mass/Vol]228 mg/qQKfea78-53Kvjkrapsy47 [address] StreetGlucose [Mass/Vol]153 mg/bFCeub57-29Vwqfupgwq47 [address] StreetGlucose [Mass/Vol]337 mg/cTWsqa76-21Mujowkift47 [address] StreetGlucose [Mass/Vol]305 mg/wJZjee84-99Girmpnqhf47 [address] StreetRENAL FUNCTION PANELon 96-21-2124Oygwwof [Mass/Vol]3.1 g/dLLow3.2-5.2MMartin Memorial HospitalComment on above:Order Comment: [facility] has implemented the eGFR calculation approach that does not have a coefficient for race that conforms to the NKF-ASN Task Force Recommendations.Performed By: #### [id number] #### [facility] [address] [place] [address] Lobo Albrecht M.D. [id number] gap [Moles/Vol]23 mmol/GRqto01-58XhykwtikwLima Memorial Hospital on above:Order Comment: [facility] has implemented the eGFR calculation approach that does not have a coefficient for race that conforms to the NKF-ASN Task Force Recommendations.Performed By: #### [id number] #### [facility] LAB [address] [place], [place] [address] Lobo Albrecht M.D. [id number] [Mass/Vol]8.3 mg/dLLow8.4-10.2MUniversity Hospitals Samaritan Medical Center on above:Order Comment: [facility] has implemented the eGFR calculation approach that does not have a coefficient for race that conforms to the NKF-ASN Task Force Recommendations.Performed By: #### [id number] #### [place] [address] Lobo Albrecht M.D. [id number] [Moles/Vol]89 mmol/FHtg08-670SbvqoteqcLima Memorial Hospital on above:Order Comment: [facility] has implemented the eGFR calculation approach that does not have a coefficient for race that conforms to the NKF-ASN Task Force Recommendations.Performed By: #### [id number] #### [place] [address] Lobo Albrecht M.D. [id number] [Mass/Vol]7.70 mg/dLHigh0.50-1.30[facility] on above:Order Comment: [facility] has implemented the eGFR calculation approach that does not have a coefficient for race that conforms to the NKF-ASN Task Force Recommendations.Performed By: #### [id number] #### [facility] LAB [address] [place], [place] [address] Lobo Albrecht M.D. [id number] mL/min/1.73 m2Low>=60[facility] on above:Order Comment: [facility] has implemented the eGFR calculation approach that does not have a coefficient for race that conforms to the NKF-ASN Task Force Recommendations.Result Comment: Estimated GFR was calculated using the 2020 CKD-EPI creatinine equation.Performed By: #### [id number] #### [facility] LAB [address] [place] [address] Lobo Albrecht M.D. [id number] [Mass/Vol]288 mg/zEIxib70-57Kzykqtury[address] on above:Order Comment: [facility] has implemented the eGFR calculation approach that does not have a coefficient for race that conforms to the NKF-ASN Task Force Recommendations.Performed By: #### [id number] #### [place] [address] Lobo Albrecht M.D. [id number] (Bld) [Moles/Vol]22 mmol/OYfcoeh72-05TclgblstyLima Memorial Hospital on above:Order Comment: [facility] has implemented the eGFR calculation approach that does not have a coefficient for race that conforms to the NKF-ASN Task Force Recommendations.Performed By: #### [id number] #### [facility] [address] [place] [address] Lobo Albrecht M.D. [id number] [Mass/Vol]8.8 mg/dLHigh2.7-4.5[facility] on above:Order Comment: [facility] has implemented the eGFR calculation approach that does not have a coefficient for race that conforms to the NKF-ASN Task Force Recommendations.Performed By: #### [id number] #### [facility] [address] [place] [address] Lobo Albrecht M.D. [id number] [Moles/Vol]3.7 mmol/LNormal3.5-5.1MUniversity Hospitals Samaritan Medical Center on above:Order Comment: [facility] has implemented the eGFR calculation approach that does not have a coefficient for race that conforms to the NKF-ASN Task Force Recommendations.Performed By: #### [id number] #### [facility] [address] [place] [address] Lobo Albrecht M.D. [id number] [Moles/Vol]130 mmol/SQud667-290RtciaxbsqLima Memorial Hospital on above:Order Comment: [facility] has implemented the eGFR calculation approach that does not have a coefficient for race that conforms to the NKF-ASN Task Force Recommendations.Performed By: #### [id number] #### [facility] [address] [place] [address] Lboo Albrecht M.D. [id number] nitrogen [Mass/Vol]55 mg/dLHigh8-25[facility] on above:Order Comment: [facility] has implemented the eGFR calculation approach that does not have a coefficient for race that conforms to the NKF-ASN Task Force Recommendations.Performed By: #### [id number] #### [facility] [address] [place], [place] [address] Lobo Albrecht M.D. [id number] nitrogen/Creatinine [Mass ratio]7.1 mg/mgLow10.0-20.0[facility] on above:Order Comment: [facility] has implemented the eGFR calculation approach that does not have a coefficient for race that conforms to the NKF-ASN Task Force Recommendations.Performed By: #### [id number] #### [facility] [address] [place] [address] Lobo Albrecht M.D. [id number] WITH AUTO DIFFERENTIALon 30-33-3397TGAW NRBC0.0 %NormalCleveland Clinic Mercy HospitalComformerly [facility] on above:Performed By: #### [id number] ####[address] [address] Oskar Ballard M.D. [id number] NRBC ABS COUNT 0.00 K/mcLNormal0.00-0.00[facility] HospitalComment on above:Performed By: #### [id number] #### LAB [address] [address] Oskar Ballard M.D. [id number] ABSOLUTE COUNT0.02 K/mcLNormal0.00-0.30[facility] HospitalComment on above:Performed By: #### [id number] #### LAB [address] [address] Oskar Ballard M.D. [id number]/100 WBC (Bld)0.2 %[facility] HospitalComment on above:Performed By: #### [id number] #### LAB [address] [address] Oskar Ballard M.D. [id number] (Bld) [#/Vol]0.21 10*3/uLNormal0.00-0.50[facility] Comment on above:Performed By: #### [id number] #### LAB [address] [address] Oskar Ballard M.D. [id number]/100 WBC (Bld)2.1 %[facility] HospitalComment on above:Performed By: #### [id number] #### LAB [address] [address] Oskar Ballard M.D. [id number] distribution width (RBC) [Ratio]17.9 %High11.6-14.8 [facility] HospitalComment on above:Performed By: #### [id number] #### LAB [address] [address] Oskar Ballard M.D. [id number] Hematocrit (Bld) [Volume fraction]24.0 %Low41.0-53.0[facility] HospitalComment on above:Performed By: #### [id number] #### LAB [address] [address] Oskar Ballard M.D. [id number] (Bld) [Mass/Vol]7.0 g/dLLow 13.5-17.5[facility] HospitalComment on above:Performed By: #### [id number] #### LAB [address] [address] Oskar Ballard M.D. [id number] IG ABSOLUTE0.06 K/mcLNormal0.00-0.30[facility] HospitalComment on above:Performed By: #### [id number] #### LAB [address] [address] Oskar Ballard M.D. [id number] PERCENT0.60 %[facility] HospitalComment on above:Result Comment: The IG parameter is the percentage of metamyelocytes, myelocytes and promyelocytes.An immature granulocyte count (IG) of 1% or more suggests the possibility of infection, an IG countof 3% is very likely related to an infection.Performed By: #### [id number] #### LAB [address] [address] Oskar Ballard M.D. [id number] (Bld) [#/Vol]0.38 10*3/uLLow0.90-4.00[facility] HospitalComment on above:Performed By: #### [id number] #### LAB [address] [address] Oskar Ballard M.D. [id number]/100 WBC (Bld)3.9 %[facility] Comment on above:Performed By: #### [id number] #### LAB [address] [address] Oskar Ballard M.D. [id number] (RBC) [Entitic mass]28.3 yiWuvzkm85.0-34.0[facility] HospitalComment on above:Performed By: #### [id number] #### LAB [address] [address] Oskar Ballard M.D. [id number] (RBC) [Entitic vol]97.2 pZXbwbwk27.0-100.0[facility] Comment on above:Performed By: #### [id number] #### LAB [address] [address] Oskar Ballard M.D. [id number] CORPUSCULAR HEMOGLOBIN CONC29.2 g/dLLow31.0-37.0[facility] HospitalComment on above:Performed By: #### [id number] #### LAB [address] [address] Oskar Ballard M.D. [id number] (Bld) [#/Vol]0.65 10*3/uLNormal0.30-0.90 [facility] HospitalComment on above:Performed By: #### [id number] #### LAB [address] [address] Oskar Ballard M.D. [id number] Monocytes/100 WBC (Bld)6.7 %[facility] HospitalComment on above:Performed By: #### [id number] #### LAB [address] [address] Oskar Ballard M.D. [id number] ABSOLUTE COUNT8.45 K/mcLHigh1.70-7.00 [facility] HospitalComment on above:Performed By: #### [id number] #### LAB [address] [address] Oskar Ballard M.D. [id number] Neutrophils/100 WBC (Bld)86.5 %[facility] HospitalComment on above:Result Comment: Peripheral smear reviewed manuallyPerformed By: #### [id number] #### LAB [address] [address] Oskar Ballard M.D. [id number] Platelet mean volume (Bld) [Entitic vol]9.8 fLNormal9.4-12.4[facility] Comment on above:Performed By: #### [id number] #### LAB [address] [address] Oskar Ballard M.D. [id number] ([facility]) [#/Vol]303 10*3/oIFnhowz120-759Ynvyhnhvs HospitalComment on above:Performed By: #### [id number] ####[facility] LAB [address] [place], [place] [address] Oskar Ballard M.D. [id number] ([facility]) [#/Vol]2.47 10*6/uLLow4.50-5.90[facility] Comment on above:Performed By: #### [id number] ####[facility] LAB [address] [place], [place] [address] Oskar Ballard M.D. [id number] ([facility]) [#/Vol]9.77 10*3/uLNormal4.50-11.00[facility] HospitalComment on above:Performed By: #### [id number] #### LAB [address] [place], [place] [address] Oskar Ballard M.D. [id number] 91-65-4027QCPADKG Attestation signed by Jose Dubon MD at 09/22/2025 9:[address] surgery consult as dictated by Tim Soto PA-C Case discussed yesterday with Dr. Singh This 55-year-old male has very severe comorbidities despite being so young. He is end-stage renal disease on peritoneal dialysis, anemia, morbid obesity. He has so many stents in the coronaries especially in the LAD which is completely stented. He was not a surgical candidate back on 2019 in [place]. Now the patient has severe aortic valve stenosis in top of his coronary artery disease. His STS score is 17.6 percent for mortality and 51% for morbidity mortality. It is obvious that he is not a surgical candidate for open heart surgery. He is not a candidate for surgical bailout in case of catastrophic complications during any catheter-based intervention. Cardiothoracic Surgery Inpatient Consult [facility] 09/22/2025 Tim Soto PA-C [address] [facility] [id number] Date of Service: 09/22/2025 Patient: Lorenzo Amato Date of : 1970 Referring Provider: Gracie Miller MD PCP: Lion Carlson MD Assessment/Plan: Lorenzo Amato is a 55 y.o. male with a significant history of ESRD on PD, anemia, CAD, depression, diabetes mellitus, GERD, dyslipidemia, hypertension, MS, morbid obesity, NABOR presenting to [facility] on 09/19/2025 with abdominal pain and concern for cellulitis Decompensated acute on chronic HFrEF with LVEF 36% - ACC C, NYHA III LFLG calcified aortic stenosis - M mmHg, V-max: 2.9 m/s, and СЕРГЕЙ: 0.9 cm . SVI: 20 mL/m Severe pulmonary hypertension Coronary artery disease --- PCI of LM into LAD [02/2025], proximal LAD/diagonal [06/2024], mid LAD [2018], LCx/OM [2005] Status post cardiac catheterization on 09/21/2025 with severe ISR of ostial left circumflex and distal LAD Hypertension Hyperlipidemia Patient currently being evaluated for SAVR/CABG versus PCI/TAVR STS risk assessment score is 17.6% for mortality 51% for morbidity and mortality Patient will be seen and evaluated by Dr. 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 Please see assessment and plan for further details. Admitted with these risk variables Dependence on Renal Dialysis yes PD Nephrology following CHF/Heart Failure reduced LVEF 36%, acute, and chronic medical therapy including Consult Cardiology Subjective Reason for Consultation: Evaluation for surgical aortic valve replacement and surgical revascularization of the heart History of Present Illness: Lorenzo Amato is a 55 y.o. male with a significant history of ESRD on PD, anemia, CAD, depression, diabetes mellitus, GERD, dyslipidemia, hypertension, MS, morbid obesity, NABOR presenting to [facility] on 09/19/2025 with abdominal pain and concern for cellulitis Patient has been not feeling well for the past 2 weeks with complaints of shortness of breath with mild exertion. Patient's brought him to the hospital after he had significant abdominal swelling and abdominal pain and bilateral lower extremity swelling. He was evaluated by cardiothoracic surgery in 2019 for bypass surgery but since he was having GI bleeds at the time he was turned down. He has history of multiple DVTs and PEs in the past and is on Eliquis. He has a [place] filter that no longer operates correctly. He is on peritoneal dialysis during the daytime and has been sedentary since last spring following complex PCI of left main into LAD with Imp[place] CP support. He did not complete cardiac rehab and actually had 2 falls secondary to severe bilateral osteoarthritis. He was evaluated for possible steroid injection but deferred due to his diabetes. He has been admitted to the hospital on underwent echocardiogram that showed LVEF 36% with low-flow low gradient severe aortic stenosis. He underwent cardiac catheterizat (more content not included)...NormalCleveland Clinic Mercy HospitalIRO STUDY WITH FERRITINon 38-41-3180Vtoerqne [Mass/Vol]377 ng/mLNormal 30-400[facility] HospitalComment on above:Performed By: #### [id number] #### LAB [address] [address] Oskar Ballard M.D. [id number] [Mass/Vol]25 ug/qHXhg88-012Anxxrgrwr HospitalComment on above:Performed By: #### [id number] #### LAB [address] [place] [address] Oskar Ballard M.D. [id number] VWLZXKHCIO28 %Cfw60-77PklndrqsrCleveland Clinic Mercy HospitalComment on above: Performed By: #### [id number] #### LAB [address] [place] [address] Oskar Ballard M.D. [id number] (CALCULATED)156 mcg/cNTdm617-383 [facility] HospitalComment on above:Performed By: #### [id number] #### LAB [address] [place] [address] Oskar Ballard M.D. [id number] LEVELon 65-94-5271Xhqpuutgy [Mass/Vol]1.9 mg/dLNormal1.6-2.4[facility] Comment on above:Performed By: #### [id number] #### LAB [address] [place] [address] Oskar Ballard M.D. [id number] GLUCOSE - RALSon 09-22-2025 Glucose [Mass/Vol]222 mg/dCYjan75-22Evwptxgzh47 [address] StreetGlucose [Mass/Vol]224 mg/qMKdtw66-45Ewyprbeng47 [address] StreetGlucose [Mass/Vol]146 mg/oLLiex50-19Kvqpgvdct47 [address] StreetGlucose [Mass/Vol]172 mg/wHPibk60-68Khegykovp47 [address] StreetGlucose [Mass/Vol] 159 mg/zHQlvp35-69Bnogrkdtd[address] [place], [place] [address]Glucose [Mass/Vol]298 mg/dCWdvq23-44 [facility] HospitalGlucose [Mass/Vol]317 mg/aHPday79-98Srdeubght47 [address] StreetRENAL FUNCTION PANELon 97-29-7662Wyxbvdy [Mass/Vol]3.0 g/dLLow3.2-5.2MUniversity Hospitals Samaritan Medical Center on above:Order Comment: [facility] has implemented the eGFR calculation approach that does not have a coefficient for race that conforms to the NKF-ASN Task Force Recommendations.Performed By: #### [id number] #### [facility] [address] [place] [address] Lobo Albrecht M.D. [id number] gap [Moles/Vol]23 mmol/OBmoe81-51ZfonzkoqjLima Memorial Hospital on above:Order Comment: [facility] has implemented the eGFR calculation approach that does not have a coefficient for race that conforms to the NKF-ASN Task Force Recommendations.Performed By: #### [id number] #### [facility] [address] [place], [place] [address] Lobo Albrecht M.D. [id number] [Mass/Vol]8.2 mg/dLLow8.4-10.2MUniversity Hospitals Samaritan Medical Center on above:Order Comment: [facility] has implemented the eGFR calculation approach that does not have a coefficient for race that conforms to the NKF-ASN Task Force Recommendations.Performed By: #### [id number] #### [facility] [address] [place], [place] [address] Lobo Albrecht M.D. [id number] [Moles/Vol]91 mmol/EVfp67-637BstotoqskLima Memorial Hospital on above:Order Comment: [facility] has implemented the eGFR calculation approach that does not have a coefficient for race that conforms to the NKF-ASN Task Force Recommendations.Performed By: #### [id number] #### [facility] [address] [place] [address] 12076 Lobo Albrecht M.D. [id number] [Mass/Vol]7.18 mg/dLHigh0.50-1.30[facility] on above:Order Comment: [facility] has implemented the eGFR calculation approach that does not have a coefficient for race that conforms to the NKF-ASN Task Force Recommendations.Performed By: #### [id number] #### [facility] [address] [place] [address] 11102 Lobo Albrecht M.D. [id number] mL/min/1.73 m2Low>=60[facility] on above:Order Comment: [facility] has implemented the eGFR calculation approach that does not have a coefficient for race that conforms to the NKF-ASN Task Force Recommendations.Result Comment: Estimated GFR was calculated using the 2020 CKD-EPI creatinine equation.Performed By: #### [id number] #### [place] [id number] Lobo Albrecht M.D. [id number] [Mass/Vol]266 mg/gFAwva37-75Zyryhztzj[address] on above:Order Comment: [facility] has implemented the eGFR calculation approach that does not have a coefficient for race that conforms to the NKF-ASN Task Force Recommendations.Performed By: #### [id number] #### [facility] [address] [place] [address] 82974 Lobo Albrecht M.D. [id number] (Bld) [Moles/Vol]19 mmol/SKav18-07QawmbcshfLima Memorial Hospital on above:Order Comment: [facility] has implemented the eGFR calculation approach that does not have a coefficient for race that conforms to the NKF-ASN Task Force Recommendations.Performed By: #### [id number] #### [facility] [address] [place], [place] [address] Lobo Albrecht M.D. [id number] [Mass/Vol]9.3 mg/dLMan [facility]alachian [facility]2.7-4.5[facility] on above:Order Comment: [facility] has implemented the eGFR calculation approach that does not have a coefficient for race that conforms to the NKF-ASN Task Force Recommendations.Performed By: #### [id number] #### [facility] [address] [place], [place] [address] Lobo Albrecht M.D. [id number] [Moles/Vol]3.9 mmol/LNormal3.5-5.1MUniversity [facility]als [facility] on above:Order Comment: [facility] has implemented the eGFR calculation approach that does not have a coefficient for race that conforms to the NKF-ASN Task Force Recommendations.Performed By: #### [id number] #### [facility] [address] [place], [place] [address] Lobo Albrecht M.D. [id number] [Moles/Vol]129 mmol/KIqf867-964EdhvoxiarLima Memorial Hospital on above:Order Comment: [facility] has implemented the eGFR calculation approach that does not have a coefficient for race that conforms to the NKF-ASN Task Force Recommendations.Performed By: #### [id number] #### [place] [address] Lobo Albrecht M.D. [id number] nitrogen [Mass/Vol]58 mg/dLHigh8-25[facility] on above:Order Comment: [facility] has implemented the eGFR calculation approach that does not have a coefficient for race that conforms to the NKF-ASN Task Force Recommendations.Performed By: #### [id number] #### [place] [address] Lobo Albrecht M.D. [id number] nitrogen/Creatinine [Mass ratio]8.1 mg/mgLow10.0-20.0[facility] on above:Order Comment: [facility] has implemented the eGFR calculation approach that does not have a coefficient for race that conforms to the NKF-ASN Task Force Recommendations.Performed By: #### [id number] #### [facility] [address] [place], [place] [address] Lobo Albrecht M.D. [id number]-PHJWKDWBNEILUXJal 00-61-1751PXMX-HYDROXYBUTYRATE<Normal0.0-0.3 [facility] on above:Performed By: #### [id number] #### LAB [address] [place] [address] Oksar Ballard M.D. [id number] WITH AUTO DIFFERENTIALon 94-96-3084JGCV NRBC0.0 %[facility] on above:Performed By: #### [id number] #### LAB [address] [place] [address] Oskar Ballard M.D. [id number] NRBC ABS COUNT0.00 K/mcLNormal 0.00-0.00[facility] on above:Performed By: #### [id number] #### LAB [address] [place] [address] Oskar Ballard M.D. [id number] BASOPHILS ABSOLUTE COUNT0.03 K/mcLNormal0.00-0.30[facility] HospitalComformerly [facility] on above:Performed By: #### [id number] #### LAB [address] [place] [address] Oskar Ballard M.D. [id number]/100 WBC (Bld)0.3 %[facility] HospitalComformerly [facility] on above:Performed By: #### [id number] #### LAB [address] [place] [address] Oskar Ballard M.D. [id number] Eosinophils (Bld) [#/Vol]0.19 10*3/uLNormal0.00-0.50[facility] on above:Performed By: #### [id number] #### LAB [address] [place] [address] Oskar Ballard M.D. [id number]/100 WBC (Bld)1.7 %[facility] on above:Performed By: #### [id number] #### LAB [address] [place] [address] Oskar Balladr M.D. [id number] Erythrocyte distribution width (RBC) [Ratio]17.8 %High11.6-14.8[facility] HospitalComment on above:Performed By: #### [id number] #### LAB [address] [place] [address] Oskar Ballard M.D. [id number] (Bld) [Volume fraction]27.2 %Low41.0-53.0[facility] HospitalComment on above:Performed By: #### [id number] #### LAB [address] [place] [address] Oskar Ballard M.D. [id number] (Bld) [Mass/Vol]8.2 g/dLLow13.5-17.5 [facility] on above:Performed By: #### [id number] #### LAB [address] [place] [address] Oskar Ballard M.D. [id number] ABSOLUTE0.07 K/mcLNormal0.00-0.30[facility] on above:Performed By: #### [id number] #### LAB [address] [place] [address] Oskar Ballard M.D. [id number] PERCENT0.60 %[facility] on above:Result Comment: The IG parameter is the percentage of metamyelocytes, myelocytes and promyelocytes.An immature granulocyte count (IG) of 1% or more suggests the possibility of infection, an IG countof 3% is very likely related to an infection.Performed By: #### [id number] #### LAB [address] [place] [address] Oskar Ballard M.D. [id number] (Bld) [#/Vol]0.30 10*3/uLLow0.90-4.00[facility] on above:Performed By: #### [id number] #### LAB [address] [place] [address] Oskar Ballard M.D. [id number]/100 WBC (Bld)2.6 %[facility] Comment on above:Performed By: #### [id number] #### LAB [address] [place] [address] Oskar Ballard M.D. [id number] (RBC) [Entitic mass]28.5 nhQcxnmm12.0-34.0[facility] HospitalComment on above:Performed By: #### [id number] #### LAB [address] [place] [address] Oskar Ballard M.D. [id number] (RBC) [Entitic vol]94.4 rCEsolde10.0-100.0[facility] Comment on above:Performed By: #### [id number] #### LAB [address] [place] [address] Oskar Ballard M.D. [id number] CORPUSCULAR HEMOGLOBIN CONC30.1 g/dLLow31.0-37.0[facility] HospitalComment on above:Performed By: #### [id number] ####[facility] [address] [place] [address] Oskar Ballard M.D. [id number] (Bld) [#/Vol]0.81 10*3/uLNormal0.30-0.90 [facility] HospitalComment on above:Performed By: #### [id number] ####[facility] [address] [place] [address] Oskar Ballard M.D. [id number] Monocytes/100 WBC (Bld)7.0 %[facility] HospitalComment on above:Performed By: #### [id number] ####[facility] [address] [place] [address] Oskar Ballard M.D. [id number] ABSOLUTE COUNT10.10 K/mcLHigh1.70-7.00 [facility] HospitalComment on above:Performed By: #### [id number] #### LAB [address] [place] [address] Oskar Ballard M.D. [id number] Neutrophils/100 WBC (Bld)87.8 %NormalCleveland Clinic Mercy HospitalComment on above: Performed By: #### [id number] #### LAB [address] [place], [place] [address] Oskar Ballard M.D. [id number] mean volume (Bld) [Entitic vol]9.7 fLNormal9.4-12.4[facility] HospitalComment on above:Performed By: #### [id number] ####[facility] [address] [place], [place] [address] Oskar Ballard M.D. [id number] (Bld) [#/Vol]343 10*3/wHFworxb211-730Gsgmidrtl Hospital Comment on above:Performed By: #### [id number] ####[facility] [address] [place] [address] Oskar Ballard M.D. [id number] (Bld) [#/Vol]2.88 10*6/uLLow4.50-5.90[facility] HospitalComment on above:Performed By: #### [id number] ####[facility] [address] [place] [address] Oskar Ballard M.D. [id number] (Bld) [#/Vol]11.50 10*3/uLHigh4.50-11.00[facility] HospitalComment on above:Performed By: #### [id number] #### LAB [address] [place] [id number] Oskar Ballard M.D. [id number] AND RIGHT HEART CATHon 09-21-2025 LEFT AND RIGHT HEART CATHThis is a summary report. The complete report is available in the patient's medical record. If you cannot access the medical record, please contact the sending organization for a detailed fax or copy. Impression: Severe aortic stenosis Severe pulmonary hypertension Markedly elevated right and left ventricular filling pressures Coronary artery disease with severe ISR of ostial left circumflex and distal LAD Recommendations: Continue medical therapy Optimization of volume status Case will be reviewed with CT surgery and structural heart team regarding further management of aortic stenosis and concomitant CAD Patient, family and primary cardiology service attending were updated regarding the procedural findings and tentative plan of care Coronary Findings Diagnostic Dominance: Right Left Main: The vessel is moderate in size and is angiographically normal. Left Anterior Descending: Previously placed Prox LAD to Mid LAD stent of unknown type is widely patent. Culprit lesion. The lesion is type C and located at the bifurcation. The Bell classification is 1,1,1 - main branch proximal and distal with side branch. The lesion was previously treated using angioplasty. Stent delivery was done by way of balloon expansion. Previously placed Mid LAD stent of unknown type is widely patent. Dist LAD lesion is 80% stenosed. The lesion was previously treated using a stent of unknown type. First Diagonal Branch: 1st Diag lesion is 80% stenosed. The lesion is type C and located at the bifurcation. The Bell classification is 1,1,1 - main branch proximal and distal with side branch. The lesion was previously treated using a stent of unknown type and angioplasty. Stent delivery was done by way of balloon expansion. Left Circumflex: Ost Cx lesion is 90% stenosed. Previously placed Ost Cx to Prox Cx stent of unknown type is widely patent. Prox Cx to Dist Cx lesion is 30% stenosed. The lesion was previously treated using a stent of unknown type. First Obtuse Marginal Branch: Previously placed 1st Mrg stent of unknown type is widely patent. Right Coronary Artery: Prox RCA lesion is 100% stenosed. Right Posterior Descending Artery: RPDA filled by collaterals from Dist LAD. Intervention No interventions have been documented. Left Ventricle Ejection Fraction: Opening aortic pressure 76 x 52 x 62 mmHg Mean gradient across aortic valve 21 mmHg Peak to peak gradient 27 mmHg Aortic valve area of 1.24 cm? with an index of 0.51 cm2/m2%. Right Heart Catheterization The right heart filling pressure was elevated. The pulmonary capillary wedge pressure was elevated. The mean pulmonary arterial pressure was elevated. Normal cardiac output/index by Zia. The pulmonary artery pressure index was normal. RA mean: 23 mmHg with V wave: 26 mmHg RV: 63/16/26 mmHg PA: 69/39/50 mmHg PCWP mean: 39 mmHg with V wave: 50 mmHg CO: 5.46 L/min CI: 2.24 L/min/m? PVR: 161 Dynes*sec/cm5 SVR: 615 Dynes*sec/cm5 RA sat: 50% RV sat: 49% PA sat: 47% AO sat: 95% Hb: 8.20 g/dL .[facility] HospitalMAGNESIUM LEVELon 12-42-1280Sazuyfafh [Mass/Vol]1.8 mg/dLNormal1.6-2.4[facility] HospitalComment on above:Performed By: #### [id number] #### LAB [address] [place] [address] Oskar Ballard M.D. [id number] GLUCOSE - [facility] 32-33-5047Tfvwzhc [Mass/Vol]305 mg/dL [address]Glucose [Mass/Vol]257 mg/cTOdgu64-78Jzxqygfjp47 [address] StreetGlucose [Mass/Vol]160 mg/dBVkno13-60Kgrisatqd47 [address] StreetGlucose [Mass/Vol] 197 mg/yGVfkg26-76Snbsokitb47 [address] StreetGlucose [Mass/Vol]243 mg/jCEgzb70-55[address] StreetGlucose [Mass/Vol]275 mg/dJFozi88-70Hynwdlxeb47 [address] StreetGlucose [Mass/Vol]328 mg/pFZdxt13-72Kjsvwufnp47 [address] StreetGlucose [Mass/Vol]407 mg/dLOff scale [address] StreetComment on above:Order Comment: Critical result acted upon time of test. Test performed at bedside.Glucose [Mass/Vol]359 mg/dL [address] OXYHEMOGLOBIN AVOXon 08-34-0950XLRUEHEHRN SITE - AVOXBluffton Hospital AtriumMemorial Health System Selby General HospitalO2HB AVOX50.1 %[facility] Comment on above:Result Comment: EXPECTED VALUES %HBO2 Right atrium RA 70 - 75% Aorta AO 95 - 97% Left atrium LA 95 - 98% Pulmonary artery PA 70 - 75% Right ventricle RV 70 - 75% Left ventricle LV 95 - 98%SUBSITE - AVOXBarney Children's Medical CenterCOLLECTION SITE - AVOXBluffton Hospital ventricleMemorial Health System Selby General HospitalO2HB AVOX49.0 %[facility] HospitalComment on above:Result Comment: EXPECTED VALUES %HBO2 Right atrium RA 70 - 75% Aorta AO 95 - 97% Left atrium LA 95 - 98% Pulmonary artery PA 70 - 75% Right ventricle RV 70 - 75% Left ventricle LV 95 - 98%SUBSITE - [facility]ITALOut[facility] COLLECTION SITE - AVOXAortaNoProvidence HospitalO2HB AVOX95.4 %[facility] HospitalComment on above:Result Comment: EXPECTED VALUES %HBO2 Right atrium RA 70 - 75% Aorta AO 95 - 97% Left atrium LA 95 - 98% Pulmonary artery PA 70 - 75% Right ventricle RV 70 - 75% Left ventricle LV 95 - 98%SUBSITE - OXAscendingMemorial Health System [facility] Hospital COLLECTION SITE - AVOXPulmonary arteryNoProvidence HospitalO2HB AVOX47.6 % [facility] HospitalComment on above:Result Comment: EXPECTED VALUES %HBO2 Right atrium RA 70 - 75% Aorta AO 95 - 97% Left atrium LA 95 - 98% Pulmonary artery PA 70 - 75% Right ventricle RV 70 - 75% Left ventricle LV 95 - 98%SUBSITE - Providence HospitalRENAL FUNCTION PANELon 33-06-1821Dxmtcuc [Mass/Vol]2.8 g/dLLow3.2-5.2MMartin Memorial HospitalComment on above:Order Comment: [facility] has implemented the eGFR calculation approach that does not have a coefficient for race that conforms to the NKF-ASN Task Force Recommendations.Performed By: #### [id number] #### [facility] [address] [place], [place] [address] Lobo Albrecht M.D. [id number] gap [Moles/Vol]24 mmol/EZaza69-18Atsqkdlfc HospitalComment on above:Order Comment: [facility] has implemented the eGFR calculation approach that does not have a coefficient for race that conforms to the NKF-ASN Task Force Recommendations.Performed By: #### [id number] #### [facility] [address] [place] [address] Lobo Albrecht M.D. [id number] [Mass/Vol]8.1 mg/dLLow8.4-10.2MMartin Memorial HospitalComment on above:Order Comment: [facility] the [facility] calculation approach that does not have a coefficient for race that conforms to the NKF-ASN Task Force Recommendations.Performed By: #### [id number] #### [facility] [address] [place] [address] Lobo Albrecht M.D. [id number] [Moles/Vol]89 mmol/NSyd84-353BgppbcyunLima Memorial Hospital on above:Order Comment: [facility] has implemented the eGFR calculation approach that does not have a coefficient for race that conforms to the NKF-ASN Task Force Recommendations.Performed By: #### [id number] #### [address] [address] Lobo Albrecht M.D. [id number] [Mass/Vol]7.15 mg/dLHigh0.50-1.30[facility] on above:Order Comment: [facility] has implemented the eGFR calculation approach that does not have a coefficient for race that conforms to the NKF-ASN Task Force Recommendations.Performed By: #### [id number] #### [address] [address] Lobo Albrecht M.D. [id number] mL/min/1.73 m2Low>=60[facility] on above:Order Comment: [facility] has implemented the eGFR calculation approach that does not have a coefficient for race that conforms to the NKF-ASN Task Force Recommendations.Result Comment: Estimated GFR was calculated using the 2020 CKD-EPI creatinine equation.Performed By: #### [id number] #### [address] [address] Lobo Albrecht M.D. [id number] [Mass/Vol]371 mg/oFZfgb65-16Leirnfthu[address] on above:Order Comment: [facility] has implemented the eGFR calculation approach that does not have a coefficient for race that conforms to the NKF-ASN Task Force Recommendations.Performed By: #### [id number] #### [facility] [address] [place] [address] Lobo Albrecht M.D. [id number] (Bld) [Moles/Vol]20 mmol/ERgq03-26JaeubldpwLima Memorial Hospital on above:Order Comment: [facility] has implemented the eGFR calculation approach that does not have a coefficient for race that conforms to the NKF-ASN Task Force Recommendations.Performed By: #### [id number] #### [facility] [address] [place], [place] [address] Lobo Albrecht M.D. [id number] [Mass/Vol]9.2 mg/dLHigh2.7-4.5[facility] on above:Order Comment: [facility] has implemented the eGFR calculation approach that does not have a coefficient for race that conforms to the NKF-ASN Task Force Recommendations.Performed By: #### [id number] #### [facility] [address] [place], [place] [address] Lobo Albrecht M.D. [id number] [Moles/Vol]4.2 mmol/LNormal3.5-5.1MUniversity [facility]als [facility] on above:Order Comment: [facility] has implemented the eGFR calculation approach that does not have a coefficient for race that conforms to the NKF-ASN Task Force Recommendations.Performed By: #### [id number] #### [facility] [address] [place] [address] Lobo Albrecht M.D. [id number] [Moles/Vol]129 mmol/ALow378-578VqikzsfphLima Memorial Hospital on above:Order Comment: [facility] has implemented the eGFR calculation approach that does not have a coefficient for race that conforms to the NKF-ASN Task Force Recommendations.Performed By: #### [id number] #### [facility] [address] [place] [address] Lobo Albrecht M.D. [id number] nitrogen [Mass/Vol]61 mg/dLHigh8-25[facility] HospitalComment on above:Order Comment: [facility] has implemented the eGFR calculation approach that does not have a coefficient for race that conforms to the NKF-ASN Task Force Recommendations.Performed By: #### [id number] #### [facility] [address] [place] [address] Lobo Albrecht M.D. [id number] nitrogen/Creatinine [Mass ratio]8.5 mg/mgLow10.0-20.0[facility] HospitalComment on above:Order Comment: [facility] has implemented the eGFR calculation approach that does not have a coefficient for race that conforms to the NKF-ASN Task Force Recommendations.Performed By: #### [id number] #### [facility] [address] [place], [place] [address] Lobo Albrecht M.D. [id number] WITH AUTO DIFFERENTIALon 20-25-1864KKTV NRBC0.0 %[facility] HospitalComment on above:Performed By: #### [id number] ####[facility] [address] [place] [address] Oskar Ballard M.D. [id number] NRBC ABS COUNT 0.00 K/mcLNormal0.00-0.00[facility] HospitalComformerly [facility] on above:Performed By: #### [id number] ####[facility] [address] [place] [address] Oskar Ballard M.D. [id number] ABSOLUTE COUNT0.03 K/mcLNormal0.00-0.30[facility] HospitalComformerly [facility] on above:Performed By: #### [id number] ####[facility] [address] [place] [address] Oskar Ballard M.D. [id number]/100 WBC (Bld)0.2 %[facility] HospitalComment on above:Performed By: #### [id number] #### LAB [address] [place] [address] Oskar Ballard M.D. [id number] (Bld) [#/Vol]0.31 10*3/uLNormal0.00-0.50[facility] Comment on above:Performed By: #### [id number] #### LAB [address] [place] [address] Oskar Ballard M.D. [id number]/100 WBC (Bld)2.5 %[facility] HospitalComment on above:Performed By: #### [id number] #### LAB [address] [place] [address] Oskar Ballard M.D. [id number] distribution width (RBC) [Ratio]17.5 %High11.6-14.8 [facility] HospitalComment on above:Performed By: #### [id number] #### LAB [address] [place] [address] Oskar Ballard M.D. [id number] Hematocrit (Bld) [Volume fraction]30.0 %Low41.0-53.0[facility] HospitalComment on above:Performed By: #### [id number] #### LAB [address] [place] [address] Oskar Ballard M.D. [id number] (Bld) [Mass/Vol]8.7 g/dLLow 13.5-17.5[facility] HospitalComment on above:Performed By: #### [id number] #### LAB [address] [place] [address] Oskar Ballard M.D. [id number] IG ABSOLUTE0.04 K/mcLNormal0.00-0.30[facility] HospitalComment on above:Performed By: #### [id number] #### LAB [address] [place] [address] Oskar Ballard M.D. [id number] PERCENT0.30 %[facility] HospitalComment on above:Result Comment: The IG parameter is the percentage of metamyelocytes, myelocytes and promyelocytes.An immature granulocyte count (IG) of 1% or more suggests the possibility of infection, an IG countof 3% is very likely related to an infection.Performed By: #### [id number] #### LAB [address] [place] [address] Oskar Ballard M.D. [id number] (Bld) [#/Vol]0.65 10*3/uLLow0.90-4.00[facility] HospitalComment on above:Performed By: #### [id number] #### LAB [address] [place] [address] Oskar Ballard M.D. [id number]/100 WBC (Bld)5.3 %[facility] Comment on above:Performed By: #### [id number] #### LAB [address] [place] [address] Oskar Ballard M.D. [id number] (RBC) [Entitic mass]28.2 haUtpitz45.0-34.0[facility] HospitalComment on above:Performed By: #### [id number] #### LAB [address] [place] [address] Oskar Ballard M.D. [id number] (RBC) [Entitic vol]97.1 sTFymqrh45.0-100.0[facility] Comment on above:Performed By: #### [id number] #### LAB [address] [place] [address] Oskar Ballard M.D. [id number] CORPUSCULAR HEMOGLOBIN CONC29.0 g/dLLow31.0-37.0[facility] HospitalComment on above:Performed By: #### [id number] #### LAB [address] [place] [address] Oskar Ballard M.D. [id number] (Bld) [#/Vol]0.96 10*3/uLHigh0.30-0.90 [facility] HospitalComment on above:Performed By: #### [id number] #### LAB [address] [place] [address] Oskar Ballard M.D. [id number] Monocytes/100 WBC (Bld)7.9 %[facility] HospitalComment on above:Performed By: #### [id number] #### LAB [address] [place] [address] Oskar Ballard M.D. [id number] ABSOLUTE COUNT10.23 K/mcLHigh1.70-7.00 [facility] HospitalComment on above:Performed By: #### [id number] #### LAB [address] [place] [address] Oskar Ballard M.D. [id number] Neutrophils/100 WBC (Bld)83.8 %[facility] [facility] HospitalComment on above: Performed By: #### [id number] #### LAB [address] [address] Oskar Ballard M.D. [id number] mean volume (Bld) [Entitic vol]9.7 fLNormal9.4-12.4[facility] HospitalComment on above:Performed By: #### [id number] #### LAB [address] [address] Oskar Ballard M.D. [id number] (Bld) [#/Vol]396 10*3/cTOwjgib393-689Dwlziuhfn Hospital Comment on above:Performed By: #### [id number] ####MH LAB [address] [address] Oskar Ballard M.D. [id number] (Bld) [#/Vol]3.09 10*6/uLLow4.50-5.90[facility] HospitalComment on above:Performed By: #### [id number] #### LAB [address] [address] Oskar Ballard M.D. [id number] (Bld) [#/Vol]11.05 10*3/uLHigh4.50-11.00[facility] HospitalComment on above:Performed By: #### [id number] #### LAB [address] [place], [place] [address] Oskar Ballard M.D. [id number] 78-03-1824SUIXXQUUQXPBPFJFRBUCYR[facility] NOTE Name: Lorenzo Amato Age: 55 y.o. Gender: male PCP: Lion Carlson MD Primary assembly adjuster: Reno Oro MD Reason for consult: CHF and Chief Compliant: abdominal pain and SOB CARDIOVASCULAR & METABOLIC PROBLEMS LFLG Calcific aortic stenosis --- M mmHg, V-max: 2.9 m/s, and СЕРГЕЙ: 0.9 cm . 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 His aortic stenosis deemed to be borderline moderate to severe, and visually look severely restricted. He has a very loud precordial murmur with absent S2. He presented with anasarca and also less abdominal pain. Received 1 dose of IV antibiotics but abdominal pain deemed not due to peritonitis but due to peritoneal dialysis. His volume status is managed by industrial hygienist. He is currently hypervolemic. Resting rate is at goal blood pressures low. He is afterload therapy has been on hold. He was on ANRi and BB at home. He will need further workup of aortic stenosis with invasive hemodynamic study and left heart catheterization. This also will help to understand his volume status. This has been discussed with patient extensively. Ultimately, if he has severe aortic stenosis, he would need AVR likely with TAVR as he will be high surgical risk. Patient is sleepy from all the main medication he had today for abdominal pain and his would like to have discussion once he is fully awake tomorrow before proceeding with invasive study. Volume management per nephrology [peritoneal dialysis] I agree with holding afterload therapy Will reevaluate tomorrow and assess if his agreeable to proceed with C/RHC HISTORY OF PRESENT ILLNESS . Lorenzo Amato has chronic cardiovascular illness as listed above and is admitted with acute decompensated heart failure and aortic stenosis and cardiology is consulted for further evaluation and treatment. Lorenzo was in the company of his Augusto. He has not been feeling well for the last 2 weeks, reportedly shortness of breath with mild exertion. She brought him to the hospital after he had significant abdominal swelling, abdominal pain, and bilateral lower extremity swelling. He is on peritoneal dialysis during the daytime and has been sedentary since last spring following complex PCI of LM into LAD with Impella CP MC support. He did not complete his cardiac rehab, in fact had 2 falls secondary to severe bilateral osteoarthritis. He was evaluated for possible steroid injection but deferred due to his diabetes mellitus. He does not report chest pain, palpitation, presyncope, or syncope. I have personally reviewed all available cardiovascular studies and images. Echo completed in today revealed LVEF: 36% akinesis of inferior wall, apex, and apical lateral wall with grade 2 DD. RV has normal size and function. Moderate to severe aortic stenosis with M mmHg, V-max: 2.9 m/s, and СЕРГЕЙ: 0.9 cm . SVI: 20 mL/m . Mild MR and TR was noted. RVSP estimated to be 50 m mercury. Coronary angiogram performed in June 2024 revealed double vessel obstructive CAD involving severe bifurcation LAD into diagonal disease and chronic total occlusion of RCA with L-R collateral. LCx and OM stent and mid LAD stent were noted to be patent. Successful PCI of proximal LAD and diagonal was completed. OBJECTIVES BP 96/62 Pulse 95 Temp 97.4 degrees F (36.3 degrees C) (Oral) Resp 18 Ht 5' 9 Wt 133.8 kg (295 lb) SpO2 98% BMI 43.56 kg/m General Appearance: Pleasant gentleman. On BiPAP. Respiratory: Bibasilar crackles. No wheeze. Cardiovascular: good peripheral pulses. JVP is flat. Regular rate and rhythm. Normal S1-S2. Right base systolic murmur. No gallop/rub. Abdomen: Distended abdomen with anasarca and tenderness. He had bruises on his right lower quadrant abdomen. PD catheter is on the left lower quadrant. JUDY: +2 bilateral pitting lower extremity edema. Skin: no rash. No cyanosis. No clubbing of fingers. Current Outpatient Medications Medication Instructions acetaminophen (TYLENOL) 1,000 mg, Oral, Every 6 hours PRN atorvastatin (LIPITOR) 80 mg, Oral, Nightly buPROPion (WELLBUTRIN) 75 mg, Oral, 2 times daily busPIRone (BUSPAR) 15 mg, 3 times daily clopidogreL (PLAVIX) 75 mg, Oral, Every morning DULoxetine (CYMBALTA) 60 mg, Oral, Every morning Eliquis 5 mg, Oral, 2 times daily ergocalciferol, vitamin D2, 50 mcg (2,000 (more content not included)...Normal [facility] HospitalCONSULTSee consult note from 09/19 AUTHENTICATED BY DELROY FLETCHER, ON 09/20/2025 11:41:10NoProvidence HospitalCONSULTDate of admission: 09/19/2025 Admission diagnosis: Hyponatremia [E87.1] Anemia of chronic disease [D63.8] ESRD (end stage renal disease) (HCC) [N18.6] Abdominal wall cellulitis [L03.311] Abdominal pain, unspecified abdominal location [R10.9] No admission procedures for hospital encounter. Referring Provider: Gracie Miller MD Attending provider: [facility] Hospitalists, Generic Primary Care Provider: Lion Carlson MD Chief Complaint/Reason for Consult: Hyperglycemia/DM management on insulin pump. History of Present Illness: Lorenzo Amato is a 55 y.o. year old male with hx of anemia, CAD, depression, diabetes mellitus, GERD, dyslipidemia, hypertension, MS, morbid obesity, NABOR, [facility] with abdominal pain and concern for cellulitis by nephrology. Patient reports bilateral flank/low abdomen pain. Denies CP, SOB, Nausea or vomiting. Reports fatigue. Patient had hypoglycemic event this AM with BG of 36. His insulin pump was held at that time. DM type: 2, diagnosed in approx 2003. Home regimen: (managed by Dr. Nowak, Student Services Advisor Stephanie KAMINSKI) Medtronic insulin pump with smartguard Settings: Basal rates: 0000: 14 u/hr. Sensitivity: 0000: 1:5 Carb ratio 0000: 1:2 Reports instructed to take 15 units with each meals, however not doing frequently. Home sugars: He is checking his blood sugars via CGM Pump reviewed over last 14 and 30 days. Average BG between 285-320 TDI in last 14 days averaging 34.1 units per day Basal: 31.95; Bolus: 2.15. Last A1c was 11.2 on 09/19. Current GFR is 9. Diabetes Complications: Eyes: Pos, last fundus exam was in last 12 months Renal: Pos, on PD, follows with nephrology for ESRD Neuropathy: Pos, numbness in feet Current inpatient regimen: Insulin pump on hold. 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 Gracie Miller Venous embolism lungs and legs Vitamin D deficiency Past Surgical History: Procedure Laterality Date APPENDECTOMY CARDIAC CATHETERIZATION N/A 06/21/2024 Procedure: Coronary Angiogram; Surgeon: Melba Singh MD; Location: 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; Service: Cardiovascular CARDIAC CATHETERIZATION N/A 06/21/2024 Procedure: Angioplasy w/Stent- Coronary; Surgeon: Melba Singh MD; Location: 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; Service: Cardiovascular CARDIAC CATHETERIZATION N/A 06/21/2024 Procedure: Angioplasty - Intravascular Lithotripsy - Coronary; Surgeon: Melba Singh MD; Location: 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; Service: Cardiovascular COLONOSCOPY last was 2014, polyps, done in [place], 2 procdures CORONARY ANGIOPLASTY WITH STENT PLACEMENT has had 2 surgeries, 2019 most recent CV IR INTERVENTIONAL RADIOLOGY N/A 06/16/2024 Procedure: VR Dialysis Cath Insert Tunnel; Surgeon: Dariusz Modi MD; Location: IR LAB; Service: Interventional Radiology; Laterality: N/A; ESOPHAGOGASTRODUODENOSCOPY last was done in [place], gastic tumor, INSULIN PUMP AND GLUCOSE SENSOR IR IVC FILTER PLACEMENT 2012 for Blood clots MT L HRT CATH W/NJX L VENTRICULOGRAPHY IMG S&I N/A 06/21/2024 Procedure: Left Heart Cath; Surgeon: Melba Singh MD; Location: 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; Service: Cardiovascular MT LAPS INSERTION TUNNELED INTRAPERITONEAL CATHETER N/A 05/19/2024 PD cath, ESRF.....Dr. Brian Arevalo TATTOO TEETH EXTRACTION TRANSFUSION BLOOD PRODUCT VASECTOMY Social History[1] Family History Problem Relation Age of Onset Uterine cancer Mother Heart disease Father Rheum arthritis Brother Coronary artery disease Brother [facility] MEDS: Current Medications[2] ALLERGIES: Allergies[3] Review of Systems: As per subjective. Positives are in bold, otherwise negative Constitutional: fatigue Skin: lesions, rash HENT: rhinorrhea, sore throat Eyes: blurring of vision Cardiovascular: chest pain, palpitations Respiratory: cough, SOB Gastrointestinal: loss of appetite, nausea, vomiting, abdominal pain, diarrhea/hyperdefecation, constipation Genitourinary: dysuria and hematuria Musculoskeletal: myalgias, joint pain Neurological: headache, numbness/tingling, dizziness Endocrine: heat intolerance, cold intolerance, excessive sweating Psychiatric: anxiety, depression Physical Exam: Vitals: BP (!) 92/54 Pulse 76 Temp 97.6 degrees F (36.4 degrees C) (Oral) Resp (!) 20 Ht 5' 9 Wt 133.8 kg (295 lb) SpO2 98% BMI 43.56 kg/m , Body mass index is 43.56 kg/m ., Wt Readings from Last 3 Encou (more content not included)...[facility] HospitalECHOCARDIOGRAM COMPLETEon [id number] COMPLETESummary 1. This study was technically limited, Definity IV contrast was used to enhance endocardial definition. 2. Normal LV size. Left ventricular systolic function is moderately reduced with an ejection fraction by Biplane Method of Discs of 36 %. Abnormal segmental wall motion with akinesis of the inferior wall, apex and apical lateral wall. 3. The left ventricular diastolic function is grade II diastolic dysfunction, consistent with elevated left atrial pressure. 4. Right ventricular size and systolic function are normal. 5. Aortic valve is trileaflet with moderately reduced in systolic excursion. There is moderate to severe aortic valve stenosis (low flow, low Gradient). Mean G 21 mmHg. Peak V 2.9 m/s, СЕРГЕЙ VTI 0.9 cm2. SVI is reduced 20ml/m2. 6. There is mild mitral valve regurgitation. 7. There is mild tricuspid valve regurgitation. 8. RV systolic pressure could not be accurately estimated. 9. Estimated right atrial pressure is 15 mmHg. Ordering Provider: Delroy Fletcher Referring Physician: Gracie Miller Inspector Precision: Adwoa Davis [facility] Attending Physician: Marry [facility] Hospitalists Patient Info Site Location: Exam Location: [facility] Name: Lorenzo Amato Age: 55 years : 1970 Gender: Male Ht: 175 cm Wt: 134 kg BSA: 2.62 m2 HR: 52 bpm BP: 92 / 54 mmHg Heart Rhythm: Sinus Rhythm Technical Quality: Fair Exam Date: 09/20/2025 9:35 AM Patient Status: INPATIENT Exam Type: ECHOCARDIOGRAM COMPLETE Study Info Indications I50.9 - Heart failure, unspecified [id number] BMI: 43.56 kg/m2 History/Risk Factors Hypertension: Yes Dyslipidemia: Yes Coronary Artery Disease (CAD) Yes Diabetes Mellitus: Type II Tobacco Use: Never History/Risk Factors GERD. Procedure(s): Complete two-dimensional, color flow and Doppler transthoracic echocardiogram is performed with contrast. Definity explained to patient. Patient verbalizes understanding and agrees to proceed. Definity 1.3ml/8.7ml normal sterile saline 1.0 ml total given IV over 30-60 seconds. Left Ventricle Left ventricular chamber dimension is normal. Normal LV size. Left ventricular systolic function is moderately reduced with an ejection fraction by Biplane Method of Discs of 36 %. Abnormal segmental wall motion with akinesis of the inferior wall, apex and apical lateral wall. There is no significant left ventricular wall thickness. Left ventricular segmental wall motion is abnormal. The left ventricular diastolic function is grade II diastolic dysfunction, consistent with elevated left atrial pressure. Right Ventricle Right ventricular size and systolic function are normal. Right ventricle is not well visualized. Left Atria Left atrial chamber is normal with a left atrial volume index of 27 ml/m2 by BP MOD. Right Atria Right atrial chamber dimension is normal. Aortic Valve The aortic valve is trileaflet. There is moderate aortic valve sclerosis. Aortic valve is trileaflet with moderately reduced in systolic excursion. There is moderate to severe aortic valve stenosis (low flow, low Gradient). Mean G 21 mmHg. Peak V 2.9 m/s, СЕРГЕЙ VTI 0.9 cm2. SVI is reduced 20ml/m2. There is no aortic valve regurgitation. Pulmonic Valve The pulmonic valve is normal. There is no pulmonic valve stenosis. There is trace pulmonic regurgitation. Mitral Valve The mitral valve has normal leaflets and thickened leaflets. There is no mitral valve stenosis. There is mild mitral valve regurgitation. Tricuspid Valve The tricuspid valve leaflets are not well visualized. There is no significant tricuspid valve stenosis. There is mild tricuspid valve regurgitation. RV systolic pressure could not be accurately estimated. Pericardium/Pleural There is a trivial pericardial effusion. The pericardium appears normal. Inferior Vena Cava Dilated inferior vena cava with <50% collapse upon inspiration consistent with elevated right atrial pressure. Estimated right atrial pressure is 15 mmHg. Aorta The aortic measurements are indexed to age and body surface area. The aortic root is normal measuring 3.0 cm with an index of 1.1 cm/m2. Left Ventricular Outflow Tract Name Value Normal LVOT 2D LVOT Diameter 2.1 cm LVOT Doppler LVOT Peak Velocity 0.8 m/s LVOT Peak Gradient 3 mmHg LVOT Mean Gradient 2 mmHg LVOT VTI 16 cm LVOT VTI/AV VTI Ratio 0.3 LVOT Stroke Volume 54 ml LVOT Stroke Index 20.53 ml/m2 Pulmonic Valve Name Value Normal (more content not included)...[facility] MAGNESIUM LEVELon 66-89-8738Nhtplwtyk [Mass/Vol]1.8 mg/dLNoal1.6-2.4[facility] HospitalComment on above:Performed By: #### [id number] ####MH [address] [address] Oskar Ballard M.D. [id number] GLUCOSE [facility] [id number] [Mass/Vol]224 mg/dNAevs03-54Pdgcdrwea47 [address] StreetGlucose [Mass/Vol]178 mg/dOZahg61-44Dcpwzjszi[address] [place], [place] [address]Glucose [Mass/Vol]76 mg/dLNormal [address] [place], [place] [address]Glucose [Mass/Vol]76 mg/jTNylzly25-97Uredrqibc[address] Glucose [Mass/Vol]53 mg/dLOff scale [address]Comment on above: Order Comment: Critical result acted upon time of test. Test performed at bedside.Glucose [Mass/Vol]60 mg/mZUls27-22Xdcucabrg[address] [place], [place] [address]Glucose [Mass/Vol]93 mg/aYLkribk15-19Zhphfmytg[address] [place], [place] [address]Glucose [Mass/Vol]63 mg/aJDqe05-25Eblguigdp[address] [place], [place] [address]Glucose [Mass/Vol]36 mg/dLOff scale mfg65-88Pbmdmsiok HospitalComformerly [facility] on above:Order Comment: Critical result acted upon time of test. Test performed at bedside.RENAL FUNCTION PANELon 82-30-3984Uthaigl [Mass/Vol]3.0 g/dLLow3.2-5.2 [facility] on above:Order Comment: [facility] has implemented the eGFR calculation approach that does not have a coefficient for race that conforms to the NKF-ASN Task Force Recommendations.Performed By: #### [id number] #### [facility] [address] [place], [place] [address] Lobo Albrecht M.D. [id number] gap [Moles/Vol]21 mmol/HQtgy11-37HtpmmkpsvLima Memorial Hospital on above:Order Comment: [facility] has implemented the eGFR calculation approach that does not have a coefficient for race that conforms to the NKF-ASN Task Force Recommendations.Performed By: #### [id number] #### [facility] [address] [place], [place] [address] Lobo Albrecht M.D. [id number] [Mass/Vol]8.8 mg/dLNormal8.4-10.2MUniversity Hospitals Samaritan [facility] on above:Order Comment: [facility] has implemented the eGFR calculation approach that does not have a coefficient for race that conforms to the NKF-ASN Task Force Recommendations.Performed By: #### [id number] #### [facility] [address] [place], [place] [address] Lobo Albrecht M.D. [id number] [Moles/Vol]94 mmol/NVyf97-723Fmhvvrgrz HospitalComformerly [facility] on above:Order Comment: [facility] has implemented the eGFR calculation approach that does not have a coefficient for race that conforms to the NKF-ASN Task Force Recommendations.Performed By: #### [id number] #### [facility] [address] [place], [place] [address] Lobo Albrecht M.D. [id number] [Mass/Vol]6.73 mg/dLHigh0.50-1.30[facility] on above:Order Comment: [facility] has implemented the eGFR calculation approach that does not have a coefficient for race that conforms to the NKF-ASN Task Force Recommendations.Performed By: #### [id number] #### [facility] [address] [place], [place] [address] Lobo Albrecht M.D. [id number] mL/min/1.73 m2Low>=60[facility] on above:Order Comment: [facility] has implemented the eGFR calculation approach that does not have a coefficient for race that conforms to the NKF-ASN Task Force Recommendations.Result Comment: Estimated GFR was calculated using the 2020 CKD-EPI creatinine equation.Performed By: #### [id number] #### [address] [id number] Lobo Albrecht M.D. [id number] [Mass/Vol]45 mg/dLOff scale pbd47-04Tnyoilsbf[address] [place] [address] on above:Order Comment: [facility] has implemented the eGFR calculation approach that does not have a coefficient for race that conforms to the NKF-ASN Task Force Recommendations.Performed By: #### [id number] #### [facility] [address] [place], [place] [address] Lobo Albrecht M.D. [id number] (Bld) [Moles/Vol]21 mmol/HQgprnf59-10CkjubnnsyLima Memorial Hospital on above:Order Comment: [facility] has implemented the eGFR calculation approach that does not have a coefficient for race that conforms to the NKF-ASN Task Force Recommendations.Performed By: #### [id number] #### [facility] [address] [place], [place] [address] Lobo Albrecht M.D. [id number] [Mass/Vol]7.7 mg/dLHigh2.7-4.5[facility] on above:Order Comment: [facility] has implemented the eGFR calculation approach that does not have a coefficient for race that conforms to the NKF-ASN Task Force Recommendations.Performed By: #### [id number] #### [facility] [address] [place] [address] Lobo Albrecht M.D. [id number] [Moles/Vol]3.2 mmol/LLow3.5-5.1MUniversity Hospitals Samaritan Medical Center on above:Order Comment: [facility] has implemented the eGFR calculation approach that does not have a coefficient for race that conforms to the NKF-ASN Task Force Recommendations.Performed By: #### [id number] #### [address] [id number] Lobo Albrecht M.D. [id number] [Moles/Vol]133 mmol/ZQup641-618HtzmxxqsmLima Memorial Hospital on above:Order Comment: [facility] has implemented the eGFR calculation approach that does not have a coefficient for race that conforms to the NKF-ASN Task Force Recommendations.Performed By: #### [id number] #### [address] [address] Lobo Albrecht M.D. [id number] nitrogen [Mass/Vol]60 mg/dLHigh8-25[facility] on above:Order Comment: [facility] has implemented the eGFR calculation approach that does not have a coefficient for race that conforms to the NKF-ASN Task Force Recommendations.Performed By: #### [id number] #### [facility] [address] [place] [address] Lobo Albrecht M.D. [id number] nitrogen/Creatinine [Mass ratio]8.9 mg/mgLow10.0-20.0[facility] on above:Order Comment: [facility] has implemented the eGFR calculation approach that does not have a coefficient for race that conforms to the NKF-ASN Task Force Recommendations.Performed By: #### [id number] #### [facility] [address] [place] [address] Lobo Albrecht M.D. [id number] CULTURE AEROBIC/ANAEROBICon [id number] CULTURE AEROBIC/ANAEROBICBLOOD CULTURE No Growth after 5 daysMemorial Health System [facility] HospitalComment on above:Performed By: #### [id number] #### [facility] [address] [place] [address] Lobo Albrecht M.D. [id number] CULTURE AEROBIC/ANAEROBICBLOOD CULTURE No Growth after 5 daysOhio State [facility]ing Hospital HospitalComment on above:Performed By: #### [id number] ####[facility] [address] [place] [address] Lobo Albrecht M.D. [id number] FLUID AEROBIC AND ANAEROBIC CULTUREon 10-79-0217YMCI FLUID AEROBIC AND ANAEROBIC CULTURE CULTURE No Growth after 5 days GRAM STAIN RESULT No WBC Seen No Organisms SeenMemorial Health System Selby General HospitalComment on above:Performed By: #### [id number] ####[facility] [address] [place] [address] Lobo Albrecht M.D. [id number] FLUID CELL COUNT WITH DIFFERENTIALon 36-77-4904AMKEEPZUOC, FLUIDClearMemorial Health System Selby General HospitalComment on above:Performed By: #### [id number] #### LAB [address] [address] Oskar Ballard M.D. [id number], FLUIDColorlessMemorial Health System Selby General HospitalComment on above:Performed By: #### [id number] ####[facility] LAB [address] [address] Oskar Ballard M.D. [id number], FLUID10 % High064 [address] StreetComment on above:Performed By: #### [id number] #### LAB [address] [address] Oskar Ballard M.D. [id number] MESO/MACRO, FLUID5 %High0-0[facility] HospitalComment on above:Result Comment: Mesothelial cells and/or macrophages.Performed By: #### [id number] #### LAB [address] [address] Oskar Ballard M.D. [id number] MONOCYTES, FLUID53 %High0-0[facility] HospitalComment on above:Performed By: #### [id number] #### LAB [address] [address] Oskar Ballard M.D. [id number], FLUID32 %High0-25[facility]ier HospitalComment on above: Performed By: #### [id number] #### LAB [address] [address] Oskar Ballard M.D. [id number], FLUID1 /mcLHigh0-0[facility] Comment on above:Performed By: #### [id number] #### LAB [address] [address] Oskar Ballard M.D. [id number]/NUC CELLS, FLUID3 /mcLNormal 0-500[facility] HospitalComment on above:Result Comment: WBC/Nuc cell count includes mesothelial and other non-WBC nucleated cells as reflected in the differential.Performed By: #### [id number] #### LAB [address] [address] Oskar Ballard M.D. [id number] WITH AUTO DIFFERENTIALon [id number] NRBC0.0 %NormalCleveland Clinic Mercy HospitalComment on above:Performed By: #### [id number] #### LAB [address] [address] Oskar Ballard M.D. [id number] NRBC ABS COUNT0.00 K/mcLNormal0.00-0.00[facility] HospitalComment on above:Performed By: #### [id number] #### LAB [address] [address] Oskar Ballard M.D. [id number] ABSOLUTE COUNT0.04 K/mcLNormal0.00-0.30[facility] HospitalComment on above:Performed By: #### [id number] #### LAB [address] [address] Oskar Ballard M.D. [id number]/100 WBC (Bld)0.4 %[facility] HospitalComment on above:Performed By: #### [id number] #### LAB [address] [address] Oskar Ballard M.D. [id number] (Bld) [#/Vol]0.13 10*3/uL Normal0.00-0.50[facility] HospitalComment on above:Performed By: #### [id number] #### LAB [address] [address] Oskar Ballard M.D. [id number]/100 WBC (Bld)1.2 %[facility] HospitalComment on above:Performed By: #### [id number] #### LAB [address] [address] Oskar Ballard M.D. [id number] distribution width (RBC) [Ratio]17.7 %High11.6-14.8[facility] Mer[facility] HospitalComment on above:Performed By: #### [id number] #### LAB [address] [address] Oskar Ballard M.D. [id number] (Bld) [Volume fraction]29.5 %Low41.0-53.0[facility] HospitalComment on above:Performed By: #### [id number] #### LAB [address] [address] Oskar Ballard M.D. [id number] (Bld) [Mass/Vol]8.9 g/dLLow13.5-17.5[facility] HospitalComment on above:Performed By: #### [id number] #### LAB [address] [address] sOkar Ballard M.D. [id number] ABSOLUTE0.05 K/mcLNormal0.00-0.30[facility] Comment on above:Performed By: #### [id number] #### LAB [address] [address] Oskar Ballard M.D. [id number] PERCENT0.50 %[facility] HospitalComment on above:Result Comment: The IG parameter is the percentage of metamyelocytes, myelocytes and promyelocytes.An immature granulocyte count (IG) of 1% or more suggests the possibility of infection, an IG countof 3% is very likely related to an infection.Performed By: #### [id number] #### LAB [address] [address] Oskar Ballard M.D. [id number] (Bld) [#/Vol]0.46 10*3/uLLow0.90-4.00[facility] Comment on above:Performed By: #### [id number] #### LAB [address] [address] Oskar Ballard M.D. [id number]/100 WBC (Bld)4.4 %[facility] HospitalComment on above:Performed By: #### [id number] #### LAB [address] [address] Oskar Ballard M.D. [id number] (RBC) [Entitic mass]28.5 cwCuhaot39.0-34.0[facility] Comment on above:Performed By: #### [id number] #### LAB [address] [address] Oskar Ballard M.D. [id number] (RBC) [Entitic vol]94.6 lLRymzit55.0-100.0[facility] HospitalComment on above:Performed By: #### [id number] #### LAB [address] [address] Oskar Ballard M.D. [id number] CORPUSCULAR HEMOGLOBIN CONC30.2 g/dLLow31.0-37.0[facility] HospitalComment on above:Performed By: #### [id number] #### LAB [address] [address] Oskar Ballard M.D. [id number] (Bld) [#/Vol]0.60 10*3/uLNormal0.30-0.90[facility] HospitalComment on above:Performed By: #### [id number] #### LAB [address] [address] Oskar Ballard M.D. [id number]/100 WBC (Bld)5.8 %[facility] Comment on above:Performed By: #### [id number] #### LAB [address] [address] Oskar Ballard M.D. [id number] ABSOLUTE COUNT9.15 K/mcLHigh1.70-7.00[facility] HospitalComment on above:Performed By: #### [id number] #### LAB [address] [address] Oskar Ballard M.D. [id number]/100 WBC (Bld)87.7 %[facility] Comment on above:Performed By: #### [id number] #### LAB [address] [address] Oskar Ballard M.D. [id number] mean volume (Bld) [Entitic vol]10.0 fLNormal9.4-12.4[facility] HospitalComment on above: Performed By: #### [id number] #### LAB [address] [address] Oskar Ballard M.D. [id number] (Bld) [#/Vol]349 10*3/uLNormal 150-400[facility] HospitalComment on above:Performed By: #### [id number] #### LAB [address] [address] Oskar Ballard M.D. [id number] (Bld) [#/Vol]3.12 10*6/uLLow4.50-5.90[facility] HospitalComment on above: Performed By: #### [id number] #### LAB [address] [address] Oskar Ballard M.D. [id number] (Bld) [#/Vol]10.43 10*3/uLNormal 4.50-11.00[facility] HospitalComment on above:Performed By: #### [id number] #### LAB [address] [address] Oskar Ballard M.D. [id number] COMPREHENSIVE METABOLIC PANELon 45-30-0768Sibhrlh [Mass/Vol]2.9 g/dLLow3.2-5.2 [facility] HospitalComment on above:Order Comment: Injury/Trauma or Illness?:Illness/Other How long have you had these symptoms (acute/chronic)?:Acute Reason for exam?:Abdominal pain, acute, nonlocalized, Peritonitis or perforation suspected, Sepsis,Per nephrology concerning for EPS Type of Exam?:Initial Additional signs and symptoms?:SOBPerformed By: #### [id number] #### LAB [address] [address] Oskar Ballard M.D. [id number] [Catalytic activity/Vol]207 U/SKids87-734Xeyzqxkgq Hospital[facility]formerly [facility] on above: Order Comment: Injury/Trauma or Illness?:Illness/Other How long have you had these symptoms (acute/chronic)?:Acute Reason for exam?:Abdominal pain, acute, nonlocalized, Peritonitis or perforation suspected, Sepsis,Per nephrology concerning for EPS Type of Exam?:Initial Additional signs and symptoms?:SOBPerformed By: #### [id number] #### LAB [address] [address] Oskar Ballard M.D. [id number] [Catalytic activity/Vol]30 U/LNormal0-50 U/[facility] HospitalComment on above: Order Comment: Injury/Trauma or Illness?:Illness/Other How long have you had these symptoms (acute/chronic)?:Acute Reason for exam?:Abdominal pain, acute, nonlocalized, Peritonitis or perforation suspected, Sepsis,Per nephrology concerning for EPS Type of Exam?:Initial Additional signs and symptoms?:SOBPerformed By: #### [id number] #### LAB [address] [address] Oskar Ballard M.D. [id number] gap [Moles/Vol]23 mmol/SYrdp09-70Mnaxrfxjq [facility] on above:Order Comment: Injury/Trauma or Illness?:Illness/Other How long have you had these symptoms (acute/chronic)?:Acute Reason for exam?:Abdominal pain, acute, nonlocalized, Peritonitis or perforation suspected, Sepsis,Per nephrology concerning for EPS Type of Exam?:Initial Additional signs and symptoms?:SOBPerformed By: #### [id number] ####[facility] LAB [address] [place] [address] Oskar Ballard M.D. [id number] [Catalytic activity/Vol]35 U/LNormal0-50 U/[facility]Comformerly [facility] on above: Order Comment: Injury/Trauma or Illness?:Illness/Other How long have you had these symptoms (acute/chronic)?:Acute Reason for exam?:Abdominal pain, acute, nonlocalized, Peritonitis or perforation suspected, Sepsis,Per nephrology concerning for EPS Type of Exam?:Initial Additional signs and symptoms?:SOBResult Comment: Slightly HemolyzedPerformed By: #### [id number] ####[facility] LAB [address] [address] Oskar Ballard M.D. [id number] [Mass/Vol]0.8 mg/dLNormal0.0-1.3MMartin Memorial HospitalComformerly [facility] on above:Order Comment: Injury/Trauma or Illness?:Illness/Other How long have you had these symptoms (acute/chronic)?:Acute Reason for exam?:Abdominal pain, acute, nonlocalized, Peritonitis or perforation suspected, Sepsis,Per nephrology concerning for EPS Type of Exam?:Initial Additional signs and symptoms?:SOBPerformed By: #### [id number] #### LAB [address] [address] Oskar Ballard M.D. [id number] [Mass/Vol]8.6 mg/dLNormal8.4-10.2MMartin Memorial HospitalComment on above:Order Comment: Injury/Trauma or Illness?:Illness/Other How long have you had these symptoms (acute/chronic)?:Acute Reason for exam?:Abdominal pain, acute, nonlocalized, Peritonitis or perforation suspected, Sepsis,Per nephrology concerning for EPS Type of Exam?:Initial Additional signs and symptoms?:SOBPerformed By: #### [id number] #### LAB [address] [place] [address] Oskar Ballard M.D. [id number] [Moles/Vol]92 mmol/OFla35-026Efylxfkaw HospitalComformerly [facility] on above:Order Comment: Injury/Trauma or Illness?:Illness/Other How long have you had these symptoms (acute/chronic)?:Acute Reason for exam?:Abdominal pain, acute, nonlocalized, Peritonitis or perforation suspected, Sepsis,Per nephrology concerning for EPS Type of Exam?:Initial Additional signs and symptoms?:SOBPerformed By: #### [id number] #### LAB [address] [place] [address] Oskar Ballard M.D. [id number] Creatinine [Mass/Vol]6.68 mg/dLHigh0.50-1.30[facility] on above: Order Comment: Injury/Trauma or Illness?:Illness/Other How long have you had these symptoms (acute/chronic)?:Acute Reason for exam?:Abdominal pain, acute, nonlocalized, Peritonitis or perforation suspected, Sepsis,Per nephrology concerning for EPS Type of Exam?:Initial Additional signs and symptoms?:SOBPerformed By: #### [id number] #### LAB [address] [address] Oskar Ballard M.D. [id number] mL/min/1.73 m2Low>=60[facility] HospitalComment on above:Order Comment: Injury/Trauma or Illness?:Illness/Other How long have you had these symptoms (acute/chronic)?:Acute Reason for exam?:Abdominal pain, acute, nonlocalized, Peritonitis or perforation suspected, Sepsis,Per nephrology concerning for EPS Type of Exam?:Initial Additional signs and symptoms?:SOBResult Comment: Estimated GFR was calculated using the 2020 CKD-EPI creatinine equation.Performed By: #### [id number] #### LAB [address] [address] Oskar Ballard M.D. [id number] Glucose [Mass/Vol]309 mg/pRQiss63-32Cvdsmzmll47 Johnson StreetComment on above:Order Comment: Injury/Trauma or Illness?:Illness/Other How long have you had these symptoms (acute/chronic)?:Acute Reason for exam?:Abdominal pain, acute, nonlocalized, Peritonitis or perforation suspected, Sepsis,Per nephrology concerning for EPS Type of Exam?:Initial Additional signs and symptoms?:SOBPerformed By: #### [id number] #### LAB [address] [address] Oskar Ballard M.D. [id number] (Bld) [Moles/Vol]18 mmol/EPrr58-28Ddkvsog[address] [place], [place] [address]Comment on above:Order Comment: Injury/Trauma or Illness?:Illness/Other How long have you had these symptoms (acute/chronic)?:Acute Reason for exam?:Abdominal pain, acute, nonlocalized, Peritonitis or perforation suspected, Sepsis,Per nephrology concerning for EPS Type of Exam?:Initial Additional signs and symptoms?:SOBPerformed By: #### [id number] #### LAB [address] [address] Oskar Ballard M.D. [id number] [Moles/Vol]4.3 mmol/LNormal3.5-5.1MMartin Memorial HospitalComment on above:Order Comment: Injury/Trauma or Illness?:Illness/Other How long have you had these symptoms (acute/chronic)?:Acute Reason for exam?:Abdominal pain, acute, nonlocalized, Peritonitis or perforation suspected, Sepsis,Per nephrology concerning for EPS Type of Exam?:Initial Additional signs and symptoms?:SOBResult Comment: Slightly HemolyzedPerformed By: #### [id number] #### LAB [address] [address] Oskar Ballard M.D. [id number] [Mass/Vol]7.1 g/dLNormal6.0-8.0[facility] Comment on above:Order Comment: Injury/Trauma or Illness?:Illness/Other How long have you had these symptoms (acute/chronic)?:Acute Reason for exam?:Abdominal pain, acute, nonlocalized, Peritonitis or perforation suspected, Sepsis,Per nephrology concerning for EPS Type of Exam?:Initial Additional signs and symptoms?:SOBPerformed By: #### 47079 #### LAB [address] [address] Oskar Ballard M.D. [id number] [Moles/Vol]129 mmol/ZKkq065-725Mazknlmli HospitalComment on above:Order Comment: Injury/Trauma or Illness?:Illness/Other How long have you had these symptoms (acute/chronic)?:Acute Reason for exam?:Abdominal pain, acute, nonlocalized, Peritonitis or perforation suspected, Sepsis,Per nephrology concerning for EPS Type of Exam?:Initial Additional signs and symptoms?:SOBPerformed By: #### [id number] #### LAB [address] [address] Oskar Ballard M.D. [id number] nitrogen [Mass/Vol]63 mg/dLMan Appalachian Regional Hospital8-25[facility] HospitalComment on above:Order Comment: Injury/Trauma or Illness?:Illness/Other How long have you had these symptoms (acute/chronic)?:Acute Reason for exam?:Abdominal pain, acute, nonlocalized, Peritonitis or perforation suspected, Sepsis,Per nephrology concerning for EPS Type of Exam?:Initial Additional signs and symptoms?:SOBPerformed By: #### [id number] #### LAB [address] [place], [place] [address] Oskar Ballard M.D. [id number] nitrogen/Creatinine [Mass ratio]9.4 mg/mgLow10.0-20.0[facility] HospitalComment on above:Order Comment: Injury/Trauma or Illness?:Illness/Other How long have you had these symptoms (acute/chronic)?:Acute Reason for exam?:Abdominal pain, acute, nonlocalized, Peritonitis or perforation suspected, Sepsis,Per nephrology concerning for EPS Type of Exam?:Initial Additional signs and symptoms?:SOBPerformed By: #### [id number] #### LAB [address] [place], [place] [address] Oskar Ballard M.D. [id number] ABDOMEN PELVIS WITH CONTRASTon 78-28-0891ZN ABDOMEN PELVIS WITH CONTRAST EXAMINATION: CT ABDOMEN AND PELVIS WITH CONTRAST HISTORY: Abdominal pain, acute, nonlocalized Injury/Trauma or Illness?:Illness/Other How long have you had these symptoms (acute/chronic)?:Acute Reason for exam?:Abdominal pain, acute, nonlocalized, Peritonitis or perforation suspected, Sepsis, Per nephrology concerning for EPS Type of Exam?:Initial Additional signs and symptoms?:SOB R10.9 Abdominal pain, unspecified abdominal location COMPARISON: CT from 06/15/2024. TECHNIQUE: CT examination of the abdomen and pelvis following the administration of intravenous contrast. Coronal and sagittal reformations were performed. Dose reduction techniques were achieved by using automated exposure control and/or adjustment of mA and/or kV according to patient size and/or use of iterative reconstruction technique. CONTRAST: IOPAMIDOL 370 MG IODINE/ML (76%) INTRAVENOUS SOLUTION - 75 mL, IOPAMIDOL 76% ORAL - 18 mL, FINDINGS: LOWER CHEST: No acute abnormalities in the mid or lower lungs. ABDOMEN: Liver: Hepatic steatosis. Liver is incompletely evaluated on a single phase of contrast study. As imaged, there is no concerning hepatic mass identified. There is trace perihepatic ascites. Bile ducts: Normal caliber. Gallbladder: No calcified gallstones. Normal caliber wall. Pancreas: Normal. Spleen: Normal. Adrenals: Normal. Kidneys: Left renal cyst. Chronic kidney disease. No nephrolithiasis. There is no ureterolithiasis or obstructive uropathy present. PELVIS: Reproductive organs: No pelvic masses. Ureters: Normal. Bladder: Normal. OTHER ABDOMEN AND PELVIS: Bowel: Incomplete distention of the stomach limits evaluation. No bowel obstruction present at this time. No infectious or inflammatory bowel disease identified. Appendectomy. No enteritis. Peritoneum: Peritoneal dialysis catheter in the right lower quadrant anteriorly with a small amount of free fluid seen in this location, expected. No drainable fluid collection. No free air. Vessels: Heart size measures at the upper limits of normal. No pericardial effusion. Atherosclerotic vessel disease. IVC filter present. No portal vein thrombus. IVC collapses distal to the filter and there are very tiny, almost indiscernible common iliac veins. Lymph nodes: Soft tissue, partially calcified lesions again seen on both sides of the stomach, along the greater curvature and lesser curvature in the upper abdomen. The largest lesion is seen to the left of midline, along the proximal greater curvature of the stomach, measuring 3.6 x 3.0 cm today. The lesions are grossly stable. Exact etiology is uncertain. Further workup recommended if this is an unknown entity. No aortocaval or retroperitoneal adenopathy. Bulky, mostly fatty lymph nodes in the pelvis on either side of the bladder, both of which can be seen on axial image 96, perhaps mildly increased since the prior exam of 07/05/2024. Additional nodes present along the right external iliac chain and left external iliac chain, also seen on the prior exam. Abdominal wall: Increased attenuation throughout the soft tissues of the abdomen and pelvis subcutaneously, worsened in the interval. Innumerable varicosities are seen throughout the soft tissues subcutaneously as well. Osseous structures: Old healed rib fracture deformity on the left. Mild increased density of the osseous structures likely on the basis of chronic renal disease. No acute fracture. IMPRESSION: 1. Minimal fluid in the abdomen and pelvis seen near the dialysis catheter tip, expected. No evidence for peritonitis. 2. Increased attenuation throughout the soft tissues of the abdomen and pelvis subcutaneously with innumerable varicosities present. Findings have worsened since the prior study. Anasarca could have this appearance but other etiologies are not excluded. 3. Grossly stable soft tissue partially calcified nodules along either side of the stomach. Findings are concerning for neoplastic disease. Additional workup recommended if this does not represent a known entity. 4. Persisted adenopathy in the pelvis as discussed above, perhaps mildly worsened. 5. Hepatic steatosis. 6. Sequelae of chronic kidney disease. 7. Additional incidental findings as above. [facility] Workstation ID: [id number] Dictated by: NACHO BENNETT on WedSep 19, 2025 4:18:15 PM EST Transcribed by: MANDI MOON on WedSep 19, 2025 5:03:02 PM EST Finalized by: NACHO BENNETT on WedSep 20, 2025 7:20:55 AM [facility] HospitalComment on above:Order Comment: Injury/Trauma or Illness?:Illness/Other How long have you had these symptoms (acute/chronic)?:Acute Reason for exam?:Abdominal pain, acute, nonlocalized, Peritonitis or perforation suspected, Sepsis,Per nephrology concerning for EPS Type of Exam?:Initial Additional signs and symptoms?:SOBED Prov Noteon [id number] Prov Note [facility] ED note NAME: Lorenzo Amato 55 y.o. CSN: [id number] PCP: Lion Carlson MD History: Chief Complaint: Wound Check HPI: Patient is a 55-year-old male history of CAD diabetes mellitus hypertension end-stage renal disease on peritoneal dialysis sent to the ED by nephrology Dr. Miller for abdominal pain abdominal distention concerning for workup and admission. In the ED Dr. Meza stop by and stated that he wanted the patient to have a CT abdomen and pelvis IV and oral contrast that he is concern for EPS wanted patient to be admitted. Patient states for few weeks he has had diffuse abdominal distention severe tenderness in the right lower Abdominal region some nausea and vomiting. No fevers reported no hemoptysis no hematemesis reported. 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 Gracie Miller Venous embolism lungs and legs Vitamin D deficiency PMSx: Past Surgical History: Procedure Laterality Date APPENDECTOMY CARDIAC CATHETERIZATION N/A 06/21/2024 Procedure: Coronary Angiogram; Surgeon: Melba Singh MD; Location: 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; Service: Cardiovascular CARDIAC CATHETERIZATION N/A 06/21/2024 Procedure: Angioplasy w/Stent- Coronary; Surgeon: Melba Singh MD; Location: 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; Service: Cardiovascular CARDIAC CATHETERIZATION N/A 06/21/2024 Procedure: Angioplasty - Intravascular Lithotripsy - Coronary; Surgeon: Melba Singh MD; Location: 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; Service: Cardiovascular COLONOSCOPY last was 2014, polyps, done in [place], 2 procdures CORONARY ANGIOPLASTY WITH STENT PLACEMENT has had 2 surgeries, 2019 most recent CV IR INTERVENTIONAL RADIOLOGY N/A 06/16/2024 Procedure: VR Dialysis Cath Insert Tunnel; Surgeon: Dariusz Modi MD; Location: IR LAB; Service: Interventional Radiology; Laterality: N/A; ESOPHAGOGASTRODUODENOSCOPY last was done in [place], gastic tumor, INSULIN PUMP AND GLUCOSE SENSOR IR IVC FILTER PLACEMENT 2012 for Blood clots MT L HRT CATH W/NJX L VENTRICULOGRAPHY IMG S&I N/A 06/21/2024 Procedure: Left Heart Cath; Surgeon: Melba Singh MD; Location: 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; Service: Cardiovascular MT LAPS INSERTION TUNNELED INTRAPERITONEAL CATHETER N/A 05/19/2024 PD cath, [facility].....Dr. Brian Arevalo TATTOO TEETH EXTRACTION TRANSFUSION BLOOD PRODUCT VASECTOMY FAM. Hx: Family History Problem Relation Age of Onset Uterine cancer Mother Heart disease Father Rheum arthritis Brother Coronary artery disease Brother SOC. Hx: Social History [1] MEDs: Previous Medications Medication Sig acetaminophen (TYLENOL) 500 MG tablet Take 2 (two) tablets (1,000 mg total) by mouth every 6 (six) hours as needed for pain . atorvastatin (LIPITOR) 80 MG tablet Take 1 (one) tablet (80 mg total) by mouth nightly . buPROPion (WELLBUTRIN) 75 MG tablet Take 1 (one) tablet (75 mg total) by mouth 2 (two) times a day . busPIRone (BUSPAR) 15 MG tablet 1 (one) tablet (15 mg total) 3 (three) times a day . clopidogreL (PLAVIX) 75 mg tablet Take 1 (one) tablet (75 mg total) by mouth every morning . DULoxetine (CYMBALTA) 60 MG capsule Take 1 (one) capsule (60 mg total) by mouth every morning . Eliquis 5 mg Tab Take 1 (one) tablet (5 mg total) by mouth 2 (two) times a day Start: 05/22/24. ergocalciferol, vitamin D2, 50 mcg (2,000 unit) cap Take 1 capsule by mouth daily . fluticasone propionate (FLONASE) 50 mcg/actuation nasal spray Instill 2 (two) sprays into each nostril daily as needed for allergies . furosemide (LASIX) 80 MG tablet Take 1 (one) tablet (80 mg total) by mouth 2 (two) times a day . gentamicin (GARAMYCIN) 0.3 % ophthalmic solution by Other route See Admin Instructions 1 TO 2 drops topically to PERITONEAL DIALYSIS EXIT SITE once daily if needed . glucagon 1 mg/mL SolR Inject 1 mL (1 mg total) into the shoulder, thigh, or buttocks as needed . insulin lispro (AdmeLOG,HumaLOG) 100 unit/mL injection Via insulin pump Reasons: max dose 250units daily. meclizine (ANTIVERT) 25 mg tablet Take 1 (one) tablet (25 mg total) by mouth 3 (three) times a day as needed for nausea . metoprolol succinate (TOPROL-XL) 100 MG 24 hr tablet Take 1 (one) tablet (100 mg total) by mouth 2 (two) times a day . octreotide ER (SandoSTATIN [place]) 30 mg injection Inject 30 (thirty) mg into the shoulder, thigh, or buttocks every 28 days . pantoprazole (PROTONIX) 40 MG tablet Take 1 (one) t (more content not included)...[facility] HospitalHEMOGLOBIN A1Con 78-33-5633Cvtacqt [Mass/Vol]275 mg/kQXugo54-898Miwufpbxc HospitalComment on above:Performed By: #### [id number] #### [facility] [address] [place] [address] Lobo Albrecht M.D. [id number] (Bld) [Mass fraction]11.2 %High4.2-5.6MMartin Memorial HospitalComment on above:Performed By: #### [id number] #### [facility] [address] [place], [place] [id number] Lobo Albrecht M.D. [id number] B SURFACE ANTIGENon 65-26-1577MCZHNZEDL B SURFACE ANTIGEN NegativeNormalNegativeCleveland Clinic Mercy HospitalComment on above:Order Comment: Injury/Trauma or Illness?:Illness/Other How long have you had these symptoms (acute/chronic)?:Acute Reason for exam?:Abdominal pain, acute, nonlocalized, Peritonitis or perforation suspected, Sepsis,Per nephrology concerning for EPS Type of Exam?:Initial Additional signs and symptoms?:SOBPerformed By: #### [id number] ####[facility] [address] [place] [address] Lobo Albrecht M.D. [id number] ACID, PLASMAon [id number] ACID, PLASMA 2.6 mmol/LHigh0.6-2.0[facility] Mercy HospitalComment on above:Performed By: #### [id number] #### [facility] [address] [place], [place] [id number] Lobo Albrecht M.D. [id number] GLUCOSE - [facility] CLINICSon [id number] [Mass/Vol]114 mg/vZAkho36-67 [facility] HospitalGlucose [Mass/Vol]128 mg/vMHeey66-08Tlgoudmzc47 Johnson StreetREFLEX LACTIC ACID, PLASMAon [id number] ACID, PLASMA2.0 mmol/LNormal0.6-2.0 [facility] HospitalComment on above:Performed By: #### [id number] ####[facility] [address] [address] Oskar Ballard M.D. [id number] Panel Informationon [id number]/IMPRESSION: Grade 3 Kellgren-Enrrique osteoarthritic changes bilaterally without acute change. Chondrocalcinosis. No joint effusion. MHPN RIS CONSOLIDATEDEXAM: XR KNEE RIGHT (MIN 4 VIEWS), XR KNEE LEFT (MIN 4 VIEWS) HISTORY: Primary osteoarthritis of both knees. COMPARISON: None. [facility] Cornelius Myers Jr., MD - 06/15/2025 EXAM: XR KNEE RIGHT (MIN 4 VIEWS), XR KNEE LEFT (MIN 4 VIEWS) HISTORY: Primary osteoarthritis of both knees. COMPARISON: None. IMPRESSION: FINDINGS/IMPRESSION: Grade 3 Kellgren-Enrrique osteoarthritic changes bilaterally without acute change. Chondrocalcinosis. No joint effusion. [facility] Panel InformationOrdered By: Cornelius Mcmullen on [id number]'s Hospital of The King's DaughtersKiddie Kist Work Phone: XR KNEE LEFT (MIN 4 VIEWS)on [id number] KNEE LEFT (MIN 4 VIEWS)EXAM: XR KNEE RIGHT (MIN 4 VIEWS), XR KNEE LEFT (MIN 4 VIEWS) HISTORY: Primary osteoarthritis of both knees. COMPARISON: None. IMPRESSION: FINDINGS/IMPRESSION: Grade 3 Kellgren-Enrrique osteoarthritic changes bilaterally without acute change. Chondrocalcinosis. No joint effusion. Interpreted by: Cornelius Mcmullen Jr., MD Signed by: Cornelius Mcmullen Jr., MD 06/15/25 Final resultNormMercer County Community HospitalXR KNEE RIGHT (MIN 4 VIEWS)on 06-15-2025 XR KNEE RIGHT (MIN 4 VIEWS)EXAM: XR KNEE RIGHT (MIN 4 VIEWS), XR KNEE LEFT (MIN 4 VIEWS) HISTORY: Primary osteoarthritis of both knees. COMPARISON: None. IMPRESSION: FINDINGS/IMPRESSION: Grade 3 Kellgren-Enrrique osteoarthritic changes bilaterally without acute change. Chondrocalcinosis. No joint effusion. Interpreted by: Cornelius Mcmullen Jr., MD Signed by: Cornelius Mcmullen Jr., MD 06/15/25 Final resultNormMercy Health Kings Mills Hospital Panel Informationon 06-14-2025 Radiology Study observation (narrative)Banner ShoutitoutChromogranin Aon [id number] A671 ng/mL31 Odom StreetComment on above: Result Comment: (NOTE) INTERPRETIVE INFORMATION: Chromogranin A, Serum This test is performed using the ThinkVidya CGA II Kryptor kit. Results obtained with different methods or kits cannot be used interchangeably. Results cannot be interpreted as absolute evidence of the presence or absence of malignant disease and should be evaluated in combination with clinical symptoms, diagnostic evidence, and/or other laboratory parameters. The change of CgA concentration over time provides diagnostic information whether a tumor progression has occurred. An increase of CgA serum concentrations of more than 50% to a value of greater than 100 ng/ml between consecutive monitoring visits defines a positive test result, representing a higher probability that a tumor progression has occurred. A change of CgA serum concentrations of equal or less than 50% increase between monitoring visits or to a value of 100 ng/ml or less defines a negative test result, representing a lower probability that a tumor progression has occurred. Nontumor related elevations of Chromogranin A can be observed in gastrointestinal, cardiovascular, and renal disorders, cancers other than neuroendocrine tumors, as well as with proton pump inhibitor (PPI) therapy. It is recommended to stop PPI treatment for at least 14 days prior to testing. Performed by [facility], [address] [place] [address] [id number] [email or web address], Han Carr MD, Lab. Director [facility] Number: [id number] By: #### ACHRGA #### [facility] [address] [place] [address] Towel Weaver: Han Carr MD #### CDP, CP #### Lab [address] [place] [address] [place] [address] Towel Weaver: Nacho Reaves [facility] with Auto Differentialon [id number] (P) [Moles/Vol]0.4 umol/LBon Secours Mercy HealthBasophils (Bld) [#/Vol]0 10*3/uL [facility] HealthBasophils/100 WBC (Bld)0 %0 - 2 %[facility] HealthEosinophils (Bld) [#/Vol]0.2 10*3/uLBon Secours Mercy Health Eosinophils/100 WBC (Bld)3 %1 - 4 %[facility] HealthErythrocyte distribution width (RBC) [Ratio]16.5 %High11.8 - 14.4 %[facility] Hematocrit (Bld) [Volume fraction]34.5 %Low40.7 - 50.3 %[facility] Hemoglobin (Bld) [Mass/Vol]10.2 g/dLLow13.0 - 17.0 g/dLBon [facility] Immature granulocytes (Bld) [#/Vol]0 10*3/uLBon [facility] HospitalImmature granulocytes/100 WBC (Bld)0 %0Bon [facility] HospitalInterpretation and review of laboratory resultsAbnormalBon Mer[facility] Health [facility]ana HospitalLymphocytes/100 WBC (Bld)7 %Low24 - 43 %Bon [facility] HospitalLymphocytes/100 WBC (Bld)0.48 %LowBon [facility]ronH (RBC) [Entitic mass]28.4 pg25.2 - 33.5 pgSentara Obici HospitalHC (RBC) [Mass/Vol]29.6 g/dL28.4 - 34.8 g/dLBon [facility] - AkronV (RBC) [Entitic vol]96.1 fL82.6 - 102.9 fLNorton Community Hospital Monocytes/100 WBC (Bld)6 %3 - 12 %[facility] HospitalMonocytes/100 WBC (Bld)0.41 %[facility] HospitalMorphology Willi (Bld) [Interp]Platelet scan shows Normal PlateletsNorton Community HospitalNeutrophils/100 WBC (Bld)84 %High 36 - 65 %[facility] HospitalNucleated RBC/100 WBC (Bld) [Ratio]0 %0.0 per 100 WBCNorton Community HospitalPlatelet mean volume (Bld) [Entitic vol]9.5 fL8.1 - 13.5 fLBon [facility] HealthPlatelets (Bld) [#/Vol]281 10*3/uLBon SecCleveland Clinic Euclid HospitalRBC (Bld) [#/Vol]3.59 10*6/uLLow4.21 - 5.77 m/uLBon [facility] HospitalSegmented neutrophils/100 WBC (Bld)5.71 %[facility] HospitalComment on above:CORRECTED ON 04/23 AT 1907: PREVIOUSLY REPORTED 5.72WBC other (Bld) [#/Vol]6.8Bon [facility]rbana HospitalBon SecWVUMedicine Barnes[facility] Hospital with Diffon 80-54-2325Jlt.Neutrophil (Seg)5.71 k/uLNormal1.50-8.10[facility] Comment on above:Result Comment: CORRECTED ON 04/23 AT 1907: PREVIOUSLY REPORTED 5.72Performed By: #### ACHRGA #### [facility] [address] [place] [address] Towel Weaver: Han Carr MD #### TIFFANY, CP #### Lab [address] [place] [address] Towel Weaver: ALIYAH Mckeononocytes (Bld) [#/Vol]0.41 10*3/uLNormal0.10-1.20 [facility] HospitalComment on above:Performed By: #### ACHRGA #### [facility] [address] [place] [address] Towel Weaver: Han Carr MD #### TIFFANY, CP #### Lab [address] [place], [facility]83 Towel Weaver: Fifi Mckeon. Basophil0.00 k/uLNormal0.0-0.2MRiverside Methodist HospitalComment on above:Performed By: #### ACHRGA #### [facility] [address] [place] [address] Towel Weaver: Han Carr MD #### TIFFANY, CP #### Lab [address] [place] [address] Towel Weaver: MDAbs. MikeImm.Granulocyte0.00 k/uLNormal0.00-0.30[facility] HospitalComment on above:Performed By: #### ACHRGA #### [facility] [address] [place] [address] Towel Weaver: Han Carr MD #### CDP, CP #### Lab [address] [place] [address] Towel Weaver: Ludmila Mckeononia (P) [Moles/Vol]0.4 umol/LNormalWright-Patterson Medical Center HospitalComment on above:Performed By: #### ACHRGA #### [facility] [address], [place] [id number] Towel Weaver: Han Carr MD #### CDP, CP #### Lab [address] [place] [address] Towel Weaver: Nacho Reaves MDBasophils/100 WBC (Bld)0 %Normal0-2Mer[facility] [place] HospitalComment on above:Performed By: #### ACHRGA #### [facility] [address] [place] [address] Towel Weaver: Han Carr MD #### CDP, CP #### Lab [address] [place] [address] Towel Weaver: Nacho Reaves MDEosinophils (Bld) [#/Vol]0.20 10*3/uLNormal 0.00-0.44Mercy [place] HospitalComment on above:Performed By: #### ACHRGA #### [facility] [address], [place] [id number] Towel Weaver: Han Carr MD #### CDP, CP #### Lab [address] [place] [address] Towel Weaver: Nacoh Reaves MDEosinophils/100 WBC (Bld)3 %Normal1-4Mer[facility] HospitalComment on above:Performed By: #### ACHRGA #### [facility] [address] [place] [address] Towel Weaver: Han Carr MD #### CDP, CP #### Lab [address] [place], [place] [address] Towel Weaver: Nacho Reaves MDImmature granulocytes/100 WBC (Bld)0 %Qcsxcv0EjbzgGood Samaritan HospitalComment on above:Performed By: #### ACHRGA #### [facility] [address] [place] [address] Towel Weaver: Han Carr MD #### CDP, CP #### Lab [address] [place] [address] [place] [place], [place] [id number] Towel Weaver: Nacho Reaves MDLymphocytes (Bld) [#/Vol]0.48 10*3/uLLow1.10-3.70 [facility] HospitalComment on above:Performed By: #### ACHRGA #### [facility] [address] [place] [address] Towel Weaver: Han Carr MD #### CDP, CP #### Lab [address] [place] [address] Dr. [place], [place] 8942383 Towel Weaver: Nacho Reaves MDLymphocytes/100 WBC (Bld)7 %Lex77-57Cvlpp Baltimore HospitalComment on above:Performed By: #### ACHRGA #### [facility] [address] [place] [address] Towel Weaver: Han Carr MD #### CDP, CP #### Lab [address] [place] [address] [place] [place], [place] 3015283 Towel Weaver: ALIYAH Mckeononocytes/100 WBC (Bld)6 %Normal3-12[facility] HospitalComment on above:Performed By: #### ACHRGA #### [facility] [address] [place] [address] Towel Weaver: Han Carr MD #### CDP, CP #### Lab [address] [place] [address] [place] [address] Towel Weaver: ALIYAH Mckeonorphology Willi (Bld) [Interp]Platelet scan shows Normal PlateletsNormalGood Samaritan HospitalComment on above:Performed By: #### ACHRGA #### [facility] [address] [place] [address] Towel Weaver: Han Carr MD #### CDP, CP #### Lab [address] [place] [address] [place] [place], [place] [id number] Towel Weaver: Nacho Reaves MDNeutrophil (Seg)84 %Exwl96-85NdkekGood Samaritan Hospital Comment on above:Performed By: #### ACHRGA #### [facility] [address] [place] [address] Towel Weaver: Han Carr MD #### CDP, CP #### [address] [place], [place] 66[address] Towel Weaver: Nacho Reaves MDErythrocyte distribution width (RBC) [Ratio]16.5 % High11.8-14.4[facility] HospitalComment on above:Performed By: #### ACHRGA #### [facility] [address] [place] [address] Towel Weaver: Han Carr MD #### CDP, CP #### Lab [address] [place] [address] [place] [place], [place] 5167383 Towel Weaver: Nacho Reaves MDHematocrit (Bld) [Volume fraction]34.5 %Low 40.7-50.3Mercy Danbury HospitalComment on above:Performed By: #### ACHRGA #### [facility] [address] [place] [address] Towel Weaver: Han Carr MD #### CDP, CP #### [address] [place] [address] Towel Weaver: Nacho Reaves MDHemoglobin (Bld) [Mass/Vol]10.2 g/dLLow13.0-17.0 [facility] HospitalComment on above:Performed By: #### ACHRGA #### [facility] [address] [place] [address] Towel Weaver: Han Carr MD #### CDP, CP #### [address] [place] [address] Towel Weaver: ALIYAH MckeonCH (RBC) [Entitic mass]28.4 hjDxdmaz50.2-33.5 [facility] HospitalComment on above:Performed By: #### ACHRGA #### [facility] [address], [place] [id number] Towel Weaver: Han Carr MD #### TIFFANY, CP #### [address] [place] [address] Towel Weaver: CLEMENTE MckeonC (RBC) [Mass/Vol]29.6 g/gMZnyook31.4-34.8[facility] HospitalComment on above:Performed By: #### ACHRGA #### [facility] [address], [place] [address] Towel Weaver: Han Carr MD #### CDP, CP #### [address] [place] [address] Towel Weaver: ALIYAH MckeonCV (RBC) [Entitic vol]96.1 kJUbkplj42.6-102.9 [facility] HospitalComment on above:Performed By: #### ACHRGA #### [facility] [address], [place] [id number] Towel Weaver: Han Carr MD #### CDP, CP #### [address] [place] [address] Towel Weaver: KIMBERLY MckeonBC Automated0.0 per 100 WBCNormal0.0[facility] HospitalComment on above:Performed By: #### ACHRGA #### [facility] [address] [place] [address] Towel Weaver: Han Carr MD #### CDP, CP #### Lab [address] [place] [address] [address] [id number] Towel Weaver: Baldev Mckeon mean volume (Bld) [Entitic vol]9.5 fL Normal8.1-13.5[facility] HospitalComment on above:Performed By: #### ACHRGA #### [facility] [address] [place] [address] Towel Weaver: Han Carr MD #### CDP, CP #### Lab [address] [place] [address] [address] [address] Towel Weaver: Seble Mckeon (Bld) [#/Vol]281 10*3/cQAqbnif489-780 [facility] HospitalComment on above:Performed By: #### ACHRGA #### [facility] [address] [place] [address] Towel Weaver: Han Carr MD #### CDP, CP #### Lab [address] [place] [address] [address] [address] Towel Weaver: RUTH Mckeon (Bld) [#/Vol]3.59 10*6/uLLow4.21-5.77[facility] HospitalComment on above:Performed By: #### ACHRGA #### [facility] [address] [place] [address] Towel Weaver: Han Carr MD #### CDP, CP #### Lab [address] [place] [address] [place] [address] Towel Weaver: Nacho Sturtz, MDWBC (Bld) [#/Vol]6.8 10*3/uLNormal3.5-11.3[facility] surgical hospitaly Danbury HospitalComment on above:Performed By: #### ACHRGA #### [facility] [address] [place] [address] Towel Weaver: Han Carr MD #### CDP, CP #### [address] [place], [place] 06789[address] Towel Weaver: SHAMAR Mckeonriverton hospital Metabolic Profon 54-26-9416Pirblie [Mass/Vol] 3.7 g/dLNormal3.5-5.2[facility] hospitaly [facility] HospitalComment on above:Performed By: #### ACHRGA #### [facility] [address] [place] [address] Towel Weaver: Han Carr MD #### CDP, CP #### [address] [place], [place] 2824583 Towel Weaver: Nacho Reaves MDAlbumin/Glob Ratio1.6Uiagga0.0-2.5[facility] HospitalComment on above:Performed By: #### ACHRGA #### [facility] [address] [place] [address] Towel Weaver: Han Carr MD #### TIFFANY, CP #### [address] [place], [place] 2492083 Towel Weaver: Fidencio Mckeonline Gsyi976 U/SHsmv28-916PmchbGood Samaritan HospitalComment on above:Performed By: #### ACHRGA #### [facility] [address] [place] [address] Towel Weaver: Han Carr MD #### CDP, CP #### [address] [place] [address] Towel Weaver: Nacho Sturtz, MDALT [Catalytic activity/Vol]9 U/HCbp65-69Pytlv [facility]in HospitalComment on above:Performed By: #### ACHRGA #### [facility] [address] [place] [address] Towel Weaver: Han Carr MD #### CDP, CP #### Lab [address] [place] [address] [place] [place], [place] 4015783 Towel Weaver: Estela Mckeon gap [Moles/Vol]17 mmol/LHigh9-16[facility] HospitalComment on above:Performed By: #### ACHRGA #### [facility] [address] [place] [address] Towel Weaver: Han Carr MD #### CDP, CP #### Lab [address] [place] [address] [place] [place], [place] [phone] Towel Weaver: Nacho Reaves MDAST [Catalytic activity/Vol]15 U/KCbhiho17-08Kfoox [facility] HospitalComment on above:Performed By: #### ACHRGA #### [facility] [address] [place] [address] Towel Weaver: Han Carr MD #### CDP, CP #### Lab [address] [place] [address] [place], [place] 8425283 Towel Weaver: Nacho Reaves MDBilirubin [Mass/Vol]0.3 mg/dLNormal0.00-1.20[facility] HospitalComment on above:Performed By: #### ACHRGA #### [facility] [address] [place] [address] Towel Weaver: Han Carr MD #### CDP, CP #### Lab [address] [place] [address] Dr[address] [place], [place] 8336083 Towel Weaver: Nacho Reaves MDBUN/CRE Nqfoh7Muh2-98Clhgi [facility]in HospitalComment on above:Performed By: #### ACHRGA #### [facility] [address] [place] [address] Towel Weaver: Han Carr MD #### CDP, CP #### [address] [place] [address] Towel Weaver: Nacho Reaves MDCalcium [Mass/Vol]9.3 mg/dLNormal8.6-10.4[facility] HospitalComment on above:Performed By: #### ACHRGA #### [facility] [address] [place] [address] Towel Weaver: Han Carr MD #### CDP, CP #### [address] [place] [address] Towel Weaver: Nacho Reaves MDChloride [Moles/Vol]98 mmol/BDfiupy53-761Whgdb [facility] HospitalComment on above:Performed By: #### ACHRGA #### [facility] [address] [place] [address] Towel Weaver: Han Carr MD #### CDP, CP #### [address] [place] [address] Towel Weaver: Nacho Reaves MDCO2 [Moles/Vol]21 mmol/QJxpkeu66-31Jpanf [facility] HospitalComment on above:Performed By: #### ACHRGA #### [facility] [address] [place] [address] Towel Weaver: Han Carr MD #### CDP, CP #### [address] [place] [address] Towel Weaver: Nacho Reaves MDCreatinine [Mass/Vol]6.9 mg/dLCritically high 0.70-1.20[facility] HospitalComment on above:Performed By: #### ACHRGA #### [facility] [address] [place] [address] Towel Weaver: Han Carr MD #### CDP, CP #### [address] [place] [address] Towel Weaver: Nacho Reaves MDGFR/1.73 sq M.predicted among non-blacks MDRD (S/P/Bld) [Vol rate/Area]9 mL/min/{1.73_m2}Low>60MerVeterans Administration Medical CenterComment on above:Result Comment: These results are not intended for use in patients <18 years of age. eGFR results are calculated without a race factor using the 2020 CKD-EPI equation. Careful clinical correlation is recommended, particularly when comparing to results calculated using previous equations. The CKD-EPI equation is less accurate in patients with extremes of muscle mass, extra-renal metabolism of creatine, excessive creatine ingestion, or following therapy that affects renal tubular secretion.Performed By: #### ACHRGA #### [facility] [address] [place] [address] Towel Weaver: Han Carr MD #### CDP, CP #### [address] [place] [address] Towel Weaver: Nacho Reaves MDGlucose [Mass/Vol]292 mg/hRKasw33-12HdjysRiverside Methodist HospitalComment on above:Performed By: #### ACHRGA #### [facility] [address] [place] [address] Towel Weaver: Han Carr MD #### CDP, CP #### [address] [place] [address] Towel Weaver: LEYDA Mckeonotassium [Moles/Vol]4.0 mmol/LNormal3.7-5.3MRiverside Methodist HospitalComment on above:Performed By: #### ACHRGA #### [facility] [address] [place] [address] Towel Weaver: Han Carr MD #### CDP, CP #### [address] [place] [address] Towel Weaver: LEYDA Mckeonrotein [Mass/Vol]7.5 g/dLNormal6.6-8.7[facility] HospitalComment on above:Performed By: #### ACHRGA #### [facility] [address] [place] [address] Towel Weaver: Han Carr MD #### CDP, CP #### [address] [place] [address] Towel Weaver: SUNG Mckeonodium [Moles/Vol]136 mmol/OKpysuw777-033ZvvjdGood Samaritan HospitalComment on above:Performed By: #### ACHRGA #### [facility] [address] [place] [address] Towel Weaver: Han Carr MD #### CDP, CP #### [address] [place] [address] Towel Weaver: Nacho Reaves MDUrea nitrogen [Mass/Vol]49 mg/dLHigh6-20[facility] HospitalComment on above:Performed By: #### ACHRGA #### [facility] [address] [place] [address] Towel Weaver: Han Carr MD #### CDP, CP #### [address] [place] [address] Towel Weaver: SHAMAR Mckeonomprehensive Metabolic Panelon 90-65-1036Itcepbu [Mass/Vol]3.7 g/dL3.5 - 5.2 g/dLBon [facility] HospitalAlbumin/Globulin [Mass ratio]1 {ratio}1.0 - 2.5Bon [facility] HospitalALP [Catalytic activity/Vol]141 U/LHigh40 - 129 U/LBon [facility] HospitalALT [Catalytic activity/Vol]9 U/LLow 10 - 50 U/LBon [facility] HospitalAnion gap [Moles/Vol]17 mmol/LHigh9 - 16 mmol/LBon [facility] HospitalAST [Catalytic activity/Vol]15 U/L10 - 50 U/LBon [facility] HospitalBilirubin [Mass/Vol]0.3 mg/dL0.00 - 1.20 mg/dLBon [facility] HospitalCalcium [Mass/Vol]9.3 mg/dL8.6 - 10.4 mg/dLBon [facility] Chloride [Moles/Vol]98 mmol/L98 - 107 mmol/LBon [facility] HospitalCO2 [Moles/Vol]21 mmol/L20 - 31 mmol/LBon [facility] HospitalCreatinine [Mass/Vol] 6.9 mg/dLCritically high0.70 - 1.20 mg/dLBon [facility] HospitalEst, Glom Filt Nzio6Jeh- PINFBon [facility] HospitalComment on above: These results are not intended for use in patients <18 years of age. eGFR results are calculated without a race factor using the 2020 CKD-EPI equation. Careful clinical correlation is recommended, particularly when comparing to results calculated using previous equations. The CKD-EPI equation is less accurate in patients with extremes of muscle mass, extra-renal metabolism of creatine, excessive creatine ingestion, or following therapy that affects renal tubular secretion. Glucose [Mass/Vol]292 mg/pNCimw88 - 99 mg/dLBon [facility] Interpretation and review of laboratory resultsAbnormalNorton Community Hospital Potassium [Moles/Vol]4 mmol/L3.7 - 5.3 mmol/LBon [facility] HospitalProtein [Mass/Vol]7.5 g/dL6.6 - 8.7 g/dLBon [facility] HospitalSodium [Moles/Vol]136 mmol/L136 - 145 mmol/LBon [facility] HospitalUrea nitrogen [Mass/Vol]49 mg/dL High6 - 20 mg/dLBon [facility] HospitalUrea nitrogen/Creatinine [Mass ratio]7 mg/mgLow9 - 20Bon [facility] HospitalBon [facility] HospitalHemoglobin A1Con 87-88-3691Qpsqvzq [Mass/Vol]203 mg/dLNoProMedica Defiance Regional HospitalComment on above:Result Comment: The ADA and AACC recommend providing the estimated average glucose result to permit better patient understanding of their HBA1c result.Performed By: #### GLYHGB #### [facility] [employer] [address], [place] [id number] Towel Weaver: Joey Tuttle MD #### BMP #### [facility] [address] [place], [place] 1256090 Towel Weaver: Nacho Reaves MDHbA1c (Bld) [Mass fraction]8.7 %High4.0-6.0Fostoria City HospitalComment on above:Performed By: #### GLYHGB #### [facility] [employer] [address], [place] 9158008 Towel Weaver: Joey Tuttle MD #### BMP #### [facility] [address] [place] [address] Towel Weaver: Nacho Reaves MDBasic Metabolic Panelon 84-87-3670Ppluy gap [Moles/Vol]16 mmol/L9 - 17 mmol/LBon [facility] HealthCalcium [Mass/Vol]9.6 mg/dL8.6 - 10.4 mg/dLBon [facility] HospitalChloride [Moles/Vol]94 mmol/LLow98 - 107 mmol/LBon [facility] HospitalCO2 [Moles/Vol]23 mmol/L20 - 31 mmol/LBon [facility] HospitalCreatinine [Mass/Vol]6.7 mg/dLCritically high0.7 - 1.2 mg/dL Bon [facility] HospitalEst, Glom Filt Kmck7Ecb- PINFBon [facility] Comment on above: These results are not intended for use in patients <18 years of age. eGFR results are calculated without a race factor using the 2020 CKD-EPI equation. Careful clinical correlation is recommended, particularly when comparing to results calculated using previous equations. The CKD-EPI equation is less accurate in patients with extremes of muscle mass, extra-renal metabolism of creatine, excessive creatine ingestion, or following therapy that affects renal tubular secretion. Glucose [Mass/Vol]311 mg/dWJcpx34 - 99 mg/dLBon [facility] Interpretation and review of laboratory resultsAbnormalBon [facility] Potassium [Moles/Vol]5 mmol/L3.7 - 5.3 mmol/LBon [facility] HospitalSodium [Moles/Vol]133 mmol/IOgn421 - 144 mmol/LBon [facility] HospitalUrea nitrogen [Mass/Vol]48 mg/dLHigh6 - 20 mg/dLBon [facility] CenterBasic Metabolic Profon 81-39-7386Jyuyl gap [Moles/Vol]16 mmol/LNormal9-17 [facility] City HospitalComment on above:Performed By: #### GLYHGB #### [facility] [address] [place] [address] Towel Weaver: Joey Tuttle MD #### BMP #### [facility] [address] [place] [address]45[address] Towel Weaver: SHAMAR Mckeonalcium [Mass/Vol]9.6 mg/dLNormal8.6-10.4Fostoria City HospitalComment on above:Performed By: #### GLYHGB #### [facility] [address] [place] [address] Towel Weaver: Joey Tuttle MD #### BMP #### [facility] [address] [place] [id number] Towel Weaver: SHAMAR Mckeonhloride [Moles/Vol]94 mmol/YWfc71-069ZtzjuMercy Health Willard Hospital on above:Performed By: #### GLYHGB #### [facility] [address] [place] [address] Towel Weaver: Joey Tuttle MD #### BMP #### [facility] [address] [place], [place] [phone] Towel Weaver: SHAMAR MckeonO2 [Moles/Vol]23 mmol/YFtxgpm63-67PqkawMercy Health Willard Hospital on above:Performed By: #### GLYHGB #### [facility] [address] [place] [address] Towel Weaver: Joey Tuttle MD #### BMP #### [facility] [address] [place], [place] [phone] Towel Weaver: SHAMAR Mckeonreatinine [Mass/Vol]6.7 mg/dLCritically high 0.7-1.2MMercy Health St. Charles HospitalComformerly [facility] on above:Performed By: #### GLYHGB #### [facility] [address], [place] [phone] Towel Weaver: Joey Tuttle MD #### BMP #### [facility] [address] [place] [address] Towel Weaver: Nacho Reaves MDGFR/1.73 sq M.predicted among non-blacks MDRD (S/P/Bld) [Vol rate/Area]9 mL/min/{1.73_m2}Low>60[facility] on above:Result Comment: These results are not intended for use in patients <18 years of age. eGFR results are calculated without a race factor using the 2020 CKD-EPI equation. Careful clinical correlation is recommended, particularly when comparing to results calculated using previous equations. The CKD-EPI equation is less accurate in patients with extremes of muscle mass, extra-renal metabolism of creatine, excessive creatine ingestion, or following therapy that affects renal tubular secretion.Performed By: #### GLYHGB #### [facility] [address] [place] [address] Towel Weaver: Joey Tuttle MD #### BMP #### [facility] [address] [place], [place] [phone] Towel Weaver: Nacho Reaves MDGlucose [Mass/Vol]311 mg/yBCdyu37-41VzzecKettering Health Springfield on above:Performed By: #### GLYHGB #### [facility] [address] [place] [phone] Towel Weaver: Joey Tuttle MD #### BMP #### [facility] [address] [place], [place] [phone] Towel Weaver: LEYDA Mckeonotassium [Moles/Vol]5.0 mmol/LNormal3.7-5.3[facility] hospitaly [facility] County HospitalComment on above:Performed By: #### GLYHGB #### [place] [address] [place], [place] [phone] Towel Weaver: Joey Tuttle MD #### BMP #### [facility] [address] [place] [phone] Towel Weaver: SUNG Mckeonodium [Moles/Vol]133 mmol/IKzi737-767IozqiFostoria City HospitalComment on above:Performed By: #### GLYHGB #### [address] [address] Towel Weaver: Joey Tuttle MD #### BMP #### [facility] [address] [place] [phone] Towel Weaver: Nacho Reaves MDUrea nitrogen [Mass/Vol]48 mg/dLHigh6-20Fostoria City HospitalComment on above:Performed By: #### GLYHGB #### [address] [address] Towel Weaver: Joey Tuttle MD #### BMP #### [facility] [address] [place], [place] [phone] Towel Weaver: Nacho Reaves MDBamiddlesboro arh hospital Metabolic Panelon 80-78-5721Pzsqm gap [Moles/Vol]19 mmol/LHigh9 - 16 mmol/LBon Secours Mercy HealthCalcium [Mass/Vol] 8.9 mg/dL8.6 - 10.4 mg/dLBon Secours Mercy HealthChloride [Moles/Vol]94 mmol/L Low98 - 107 mmol/LBon [facility] HospitalCO2 [Moles/Vol]19 mmol/LLow20 - 31 mmol/LBon [facility] HospitalCreatinine [Mass/Vol]7.0 mg/dLCritically high0.7 - 1.2 mg/dLBon [facility] HospitalEst, Glom Filt Aova7Qug- PINFBon [facility] HospitalComment on above: These results are not intended for use in patients <18 years of age. eGFR results are calculated without a race factor using the 2020 CKD-EPI equation. Careful clinical correlation is recommended, particularly when comparing to results calculated using previous equations. The CKD-EPI equation is less accurate in patients with extremes of muscle mass, extra-renal metabolism of creatine, excessive creatine ingestion, or following therapy that affects renal tubular secretion. Glucose [Mass/Vol]286 mg/vSHyrl02 - 99 mg/dLBon [facility] Interpretation and review of laboratory resultsAbnormalNorton Community Hospital Potassium [Moles/Vol]4.5 mmol/L3.7 - 5.3 mmol/LBon [facility] HospitalSodium [Moles/Vol]132 mmol/NHcs332 - 145 mmol/LBon [facility] HospitalUrea nitrogen [Mass/Vol]52 mg/dLHigh6 - 20 mg/dLBon [facility] CenterBasic Metabolic Profon 87-09-2401Psjro gap [Moles/Vol]19 mmol/LHigh9-16 [facility]de Memorial HospitalComment on above:Performed By: #### BMP #### [facility] [address] [place], [place] [phone] Towel Weaver: SHAMAR Cunninghamalcium [Mass/Vol]8.9 mg/dLNormal8.6-10.4Tri[facility] Mccullough-Hyde Memorial HospitalComment on above:Performed By: #### BMP #### [facility] [address] [place] [phone] Towel Weaver: SHAMAR Cunninghamhloride [Moles/Vol]94 mmol/DOex19-449LyhfwTrihealth Mccullough-Hyde Memorial HospitalComment on above:Performed By: #### BMP #### [facility] HospitalFujian [employer] [employer] [address] [place] [address] Towel Weaver: Joey Tuttle MDCO2 [Moles/Vol]19 mmol/VWvg72-79OiljlTrihealth Mccullough-Hyde Memorial HospitalComment on above:Performed By: #### BMP #### [facility] [employer] [address] [place] [address] Towel Weaver: SHAMAR Cunninghamreatinine [Mass/Vol]7.0 mg/dLCritically high 0.7-1.2MSan Luis Obispo General HospitalComment on above:Performed By: #### BMP #### [facility] [employer] [address] [place] [address] Towel Weaver: Joey Tuttle MDGFR/1.73 sq M.predicted among non-blacks MDRD (S/P/Bld) [Vol rate/Area]9 mL/min/{1.73_m2}Low>60Tri[facility]-Hyde Memorial HospitalComment on above:Result Comment: These results are not intended for use in patients <18 years of age. eGFR results are calculated without a race factor using the 2020 CKD-EPI equation. Careful clinical correlation is recommended, particularly when comparing to results calculated using previous equations. The CKD-EPI equation is less accurate in patients with extremes of muscle mass, extra-renal metabolism of creatine, excessive creatine ingestion, or following therapy that affects renal tubular secretion.Performed By: #### BMP #### [facility] HospitalFuj[facility] [address] [place] [address] Towel Weaver: Joey Tuttle MDGlucose [Mass/Vol]286 mg/iDOpld65-62StjxfSan Luis Obispo General HospitalComment on above:Performed By: #### BMP #### [facility] [employer] [address] [place] [address] Towel Weaver: Joey Tuttle MDPotassium [Moles/Vol]4.5 mmol/LNormal3.7-5.3 [facility]Hyde Memorial HospitalComment on above:Performed By: #### BMP #### [facility] HospitalF[facility] [address] [place] [address] Towel Weaver: SUNG Cunninghamodium [Moles/Vol]132 mmol/NCqx060-053YhyvhTrihealth Mccullough-Hyde Memorial HospitalComment on above:Performed By: #### BMP #### [facility] [address] [place] [address] Towel Weaver: Joey Tuttle MDUrea nitrogen [Mass/Vol]52 mg/dLHigh6-20[facility]-Hyde Memorial HospitalComment on above:Performed By: #### BMP #### [facility] [address] [place] [address] Towel Weaver: Joey Tuttle MDEKSmiley 12 LeadOrdered By: Nalini Morris on 81-49-4476Vphkad Pxgc24ZMICdj [employer] Work Phone: P [id number] Your Campaign Work Phone: P-R [id number] msBoost Your Campaign Work Phone: Q-T Wrhjcyuj587 msBo[employer] Work Phone: QRS Bfgqdoss34 msBon SecTravelCLICK Work Phone: QTc Calculation (Bazett)479 msBon [employer] Work Phone: R [id number] Your Campaign Work Phone: T Mccook-84degreesAppetas SecTravelCLICK Work Phone: Ventricular [id number] SecTravelCLICK Work Phone: Bon [employer] Work Phone: EKG 12 Leadon 65-61-4020Pyzryq sinus rhythm T wave abnormality, consider inferior ischemia Prolonged QT Abnormal ECG When compared with ECG of 10-FEB-2025 10:27, Minimal criteria for Anterior infarct are no longer PresentUNIVERSITY OF [facility] STV Nalini Smith MD - 02/14/2025 Normal sinus rhythm T wave abnormality, consider inferior ischemia Prolonged QT Abnormal ECG When compared with ECG of 10-FEB-2025 10:27, Minimal criteria for Anterior infarct are no longer Present Bon [facility] HospitalGlucose,Whole Bloodon 82-38-5450Paxzvkp [Mass/Vol]322 mg/zBJeum36-944MllsrTrihealth Mccullough-Hyde Memorial HospitalGlucose [Mass/Vol]272 mg/dLHigh 75-110Tri[facility]ull[facility]-Hy[facility] Memorial HospitalGlucose [Mass/Vol]366 mg/yRWhlp07-492XhkzlTrihealth Mccullough-Hyde Memorial HospitalGlucose [Mass/Vol]258 mg/xDXqtu75-461HqlfeTrihealth Mccullough-Hyde Memorial HospitalGlucose [Mass/Vol]241 mg/qDFqkn70-901QlxoaTrihealth Mccullough-Hyde Memorial HospitalHemoglobin and Hematocriton 42-58-4887Tumfknqljw (Bld) [Volume fraction]33.5 %Low40.7 - 50.3 %Norton Community HospitalHemoglobin (Bld) [Mass/Vol]9.9 g/dLLow13.0 - 17.0 g/dLBon [facility] HospitalInterpretation and review of laboratory resultsAbnormalCarilion Stonewall Jackson HospitalHgb/Hcton 44-65-8574Yiwaxxxmnx (Bld) [Volume fraction]33.5 %Low40.7-50.3 [facility]-Hyde Memorial HospitalComment on above:Performed By: #### HH ####[facility] Cx[address]ov[address]drohb[address] [place] [id number] Lab Director: Joey Tuttle MDHemoglobin (Bld) [Mass/Vol]9.9 g/dLLow13.0-17.0Tri[facility] Mccullough-Hyde Memorial HospitalComment on above:Performed By: #### HH ####[facility] D[address]illml[address] [place] [address]124[address] Lab Director: KENTON Cunningham Glucose Fingerstickon 54-26-5346Tfnsqsy [Mass/Vol]272 mg/mRFgoj54 - 110 mg/dLBon [facility] HospitalInterpretation and review of laboratory resultsAbnormBuchanan General Hospitalgayathri HealthGlucose [Mass/Vol]366 mg/oOTvfg82 - 110 mg/dLBon SecLallie Kemp [facility] HealthInterpretation and review of laboratory results AbnormalBon Secfidel Mcginnis [facility] CenterAlexus Garcia [facility] Hospitalgayathri HealthGlucose [Mass/Vol]258 mg/bFGmon38 - 110 mg/dLBon SecGarfield County Public Hospitalgayathri HealthInterpretation and review of laboratory resultsAbnormalBon Jose Mcginnis [facility] CenterAlexus Garcia [facility] Hospitalgayathri Health Glucose [Mass/Vol]241 mg/iGPywf02 - 110 mg/dLBon [facility] Health Interpretation and review of laboratory resultsAbnormalBon Jose St. Charles Hospitalgayathri [facility] Alexus Garcia [facility] Hospitalgayathri HealthTYPE AND SCREENon 00-82-3531VVY/RhNegativeBon Jose St[facility] Hospitalgayathri HealthArm Band NumberBE [id number] Jose [facility] Hospitalgayathri HealthBlood Bank Blood Product Expiration [id number] Secours Mercy HealthBlood Bank ISBT Product Blood [id number] Jose [facility] Hospitalgayathri HealthBlood Bank Sample Expiration 02/16/2025,2359Bon Jose [facility] Hospitalgayathri HealthBlood Bank Unit Type and RhNegativeBon Jose Mcginnis HealthBlood product unit ID (Dose) [#][id number] Jose [facility] Hospitalgayathri HealthComponentLeukocyte Reduced Red CellBon [facility] Centerfidel [facility] Crossmatch ResultCOMPATIBLEBanner Jose St. [facility] Hospitalgayathri [facility] Medical CenterDispense Status Blood Bank TRANSFUSEDBon Jose St[facility] Hospitalgayathri [facility] Medical CenterProduct Code Blood [id number] Secours [facility] Hospitalgayathri HealthTransfusion StatusOK TO TRANSFUSEBanner Jose St. [facility] Hospitalgayathri [facility] Medical CenterUnit [id number] Jose [facility] Hospitalgayathri HealthUnit Issue Date/[id number] Jose [facility] Hospitalgayathri [facility] CenterAlexus Garcia [facility] Hospitalgayathri HealthAPTTon 46-68-6524iJBU Coag (Bld) [Time]60.9 sHighBon [facility] HospitalComment on above: IV Heparin Therapy Range: 66.0-92.0 sec Interpretation and review of laboratory resultsAbnormalAlexus Garcia St. [facility] Hospitalgayathri [facility] Alexus Garcia [facility] Hospitalgayathri HealthaPTT Coag (Bld) [Time]60.9 sHigh23.0-36.5Tri[facility] Mccullough-Hyde Memorial HospitalComment on above:Result Comment: IV Heparin Therapy Range: 66.0-92.0 secPerformed By: #### PTT ####[facility] [address] [place], [place] [address]201[address] Lab Director: Wilfredo CunninghamT Coag (Bld) [Time] 114.6 sCritically highBon [facility] HospitalComformerly [facility] on above: IV Heparin Therapy Range: 66.0-92.0 sec RESULT ACCEPTED PER ALEJANDRO Patel Interpretation and review of laboratory resultsAbnormalBon [facility] Bon Secours [facility] HealthaPTT Coag (Bld) [Time]114.6 sCritically high23.0-36.5 [facility] Memorial HospitalComment on above:Result Comment: IV Heparin Therapy Range: 66.0-92.0 sec RESULT ACCEPTED PER ALEJANDRO PatelPerformed By: #### BMP #### [employer] [facility] [place] [phone] Towel Weaver: Pamela Cunningham Coag (Bld) [Time]29.3 sBon [facility] HospitalComformerly [facility] on above: IV Heparin Therapy Range: 66.0-92.0 sec Bon SecGarfield County Public Hospitaly HealthaPTT Coag (Bld) [Time]29.3 xSyscxd03.0-36.5Tri[facility] Mccullough-Hyde Memorial HospitalComment on above:Result Comment: IV Heparin Therapy Range: 66.0-92.0 secPerformed By: #### PTT ####[employer] [address] [place] [id number] Lab Director: Joey Tuttle MDBLOOD BANK SPECIMENon 76-72-0930Hyd [facility] HospitalBasic Metabolic Panelon 39-04-5011Xrvuk gap [Moles/Vol]16 mmol/L9 - 16 mmol/LBon SecGarfield County Public Hospitaly HealthCalcium [Mass/Vol]8.8 mg/dL8.6 - 10.4 mg/dLBon Secours Mercy HealthChloride [Moles/Vol]94 mmol/LLow98 - 107 mmol/LBon SecLallie Kemp Regional Medical Center HealthCO2 [Moles/Vol]20 mmol/L20 - 31 mmol/LBon [facility]ours Mercy HealthCreatinine [Mass/Vol]7.1 mg/dLCritically high0.7 - 1.2 mg/dL [facility] Access HospitalNexaweb TechnologiesUNM Cancer Center on above:Previous Alert Value ReportedMalka Rojas Lfdl8Cga- PINFBon [facility] on above: These results are not intended for use in patients <18 years of age. eGFR results are calculated without a race factor using the 2020 CKD-EPI equation. Careful clinical correlation is recommended, particularly when comparing to results calculated using previous equations. The CKD-EPI equation is less accurate in patients with extremes of muscle mass, extra-renal metabolism of creatine, excessive creatine ingestion, or following therapy that affects renal tubular secretion. Glucose [Mass/Vol]272 mg/hFZsda17 - 99 mg/dLBon [facility] Interpretation and review of laboratory resultsAbnormalBon [facility] Potassium [Moles/Vol]4.8 mmol/L3.7 - 5.3 mmol/LBon [facility] Tumotorizado.comInova Health SystemSodium [Moles/Vol]130 mmol/AMbk645 - 145 mmol/LBon [facility] HospitalUrea nitrogen [Mass/Vol]54 mg/dLHigh6 - 20 mg/dLBon [facility] HospitalAnion gap [Moles/Vol] 18 mmol/LHigh9 - 16 mmol/LBon [facility] HealthCalcium [Mass/Vol]8.9 mg/dL8.6 - 10.4 mg/dLBon [facility] HealthChloride [Moles/Vol]96 mmol/LLow98 - 107 mmol/LBon [facility] HospitalCO2 [Moles/Vol]18 mmol/LLow20 - 31 mmol/LBon [facility] HospitalCreatinine [Mass/Vol]7.0 mg/dLCritically high0.7 - 1.2 mg/dL Critical Access HospitalNexaweb TechnologiesUNM Cancer Center on above:Previous Alert Value ReportedMalka Rojas Wqub0Lad- PINFBon [facility] on above: These results are not intended for use in patients <18 years of age. eGFR results are calculated without a race factor using the 2020 CKD-EPI equation. Careful clinical correlation is recommended, particularly when comparing to results calculated using previous equations. The CKD-EPI equation is less accurate in patients with extremes of muscle mass, extra-renal metabolism of creatine, excessive creatine ingestion, or following therapy that affects renal tubular secretion. Glucose [Mass/Vol]319 mg/jAVnrm87 - 99 mg/dLBon [facility] Interpretation and review of laboratory resultsAbnormCentra Virginia Baptist Hospital Potassium [Moles/Vol]4.8 mmol/L3.7 - 5.3 mmol/LBon [facility] HospitalSodium [Moles/Vol]132 mmol/YIxt898 - 145 mmol/LBon [facility] HospitalUrea nitrogen [Mass/Vol]52 mg/dLHigh6 - 20 mg/dLBon [facility] CenterBasic Metabolic Profon 97-33-0552Cvfnw gap [Moles/Vol]16 mmol/LNormal9-16 [facility] Memorial HospitalComment on above:Performed By: #### PTT #### [facility] [address] [place] [address] Towel Weaver: SHAMAR Cunninghamalcium [Mass/Vol]8.8 mg/dLNormal8.6-10.4[facility]-Hyde Memorial HospitalComment on above:Performed By: #### PTT #### [facility] [address] [place] [address] Towel Weaver: SHAMAR Cunninghamhloride [Moles/Vol]94 mmol/PHej09-352UtfkmTrihealth Mccullough-Hyde Memorial HospitalComment on above:Performed By: #### PTT #### [facility] [address] [place] [address] Towel Weaver: SHAMAR CunninghamO2 [Moles/Vol]20 mmol/WPngbbj21-94DmcuyTrihealth Mccullough-Hyde Memorial HospitalComment on above:Performed By: #### PTT #### [facility] [address] [place] [address] Towel Weaver: SHAMAR Cunninghamreatinine [Mass/Vol]7.1 mg/dLCritically high 0.7-1.2MSan Luis Obispo General HospitalComment on above:Result Comment: Previous Alert Value ReportedPerformed By: #### PTT #### [facility] [address] [place] [address] Towel Weaver: Joey Tuttle MDGFR/1.73 sq M.predicted among non-blacks MDRD (S/P/Bld) [Vol rate/Area]8 mL/min/{1.73_m2}Low>60[facility]Hyde Memorial HospitalComment on above:Result Comment: These results are not intended for use in patients <18 years of age. eGFR results are calculated without a race factor using the 2020 CKD-EPI equation. Careful clinical correlation is recommended, particularly when comparing to results calculated using previous equations. The CKD-EPI equation is less accurate in patients with extremes of muscle mass, extra-renal metabolism of creatine, excessive creatine ingestion, or following therapy that affects renal tubular secretion.Performed By: #### PTT #### [facility] HospitalF[facility] [employer] [address] [place] [address] Towel Weaver: Joey Tuttle MDGlucose [Mass/Vol]272 mg/qUWqgj92-19VwaazSan Luis Obispo General HospitalComment on above:Performed By: #### PTT #### [facility] HospitalF[facility] [employer] [address] [place] [address] Towel Weaver: LEYDA Cunninghamotassium [Moles/Vol]4.8 mmol/LNormal3.7-5.3 [facility] Memorial HospitalComment on above:Performed By: #### PTT #### [facility] [employer] [employer] [address] [place] [address] Towel Weaver: Joey Tuttle MDSodium [Moles/Vol]130 mmol/PXlr366-452FibaoTrihealth Mccullough-Hyde Memorial HospitalComment on above:Performed By: #### PTT #### [facility] [employer] [address] [place] [address] Towel Weaver: Joey Tuttle MDUrea nitrogen [Mass/Vol]54 mg/dLMan Appalachian Regional Hospital6-20[facility]-Hyde Memorial HospitalComment on above:Performed By: #### PTT #### [facility] [employer] [employer] [address] [place] [address] Towel Weaver: Joey Tuttle MDAnion gap [Moles/Vol]18 mmol/LHigh9-16[facility]-Hyde Memorial HospitalComment on above:Performed By: #### BMP #### [facility] [address] [place] [address] Towel Weaver: SHAMAR Cunninghamalcium [Mass/Vol]8.9 mg/dLNormal8.6-10.4[facility]-Hyde Memorial HospitalComment on above:Performed By: #### BMP #### [facility] [address] [place] [address] Towel Weaver: SHAMAR Cunninghamhloride [Moles/Vol]96 mmol/FPeu86-144LlscaTrihealth Mccullough-Hyde Memorial HospitalComment on above:Performed By: #### BMP #### [employer] [address] [place] [address] Towel Weaver: Joey Tuttle MDCO2 [Moles/Vol]18 mmol/JXuz08-08OwpaeTrihealth Mccullough-Hyde Memorial HospitalComment on above:Performed By: #### BMP #### [facility] Hospitaly [employer] [address] [place] [address] Towel Weaver: SHAMAR Cunninghamreatinine [Mass/Vol]7.0 mg/dLCritically high 0.7-1.2MSan Luis Obispo General HospitalComment on above:Result Comment: Previous Alert Value ReportedPerformed By: #### BMP #### [address] [address] Towel Weaver: Joey Tuttle MDGFR/1.73 sq M.predicted among non-blacks MDRD (S/P/Bld) [Vol rate/Area]9 mL/min/{1.73_m2}Low>60MerEden Medical CenterComment on above:Result Comment: These results are not intended for use in patients <18 years of age. eGFR results are calculated without a race factor using the 2020 CKD-EPI equation. Careful clinical correlation is recommended, particularly when comparing to results calculated using previous equations. The CKD-EPI equation is less accurate in patients with extremes of muscle mass, extra-renal metabolism of creatine, excessive creatine ingestion, or following therapy that affects renal tubular secretion.Performed By: #### BMP #### [address] [address] Towel Weaver: Joey Tuttle MDGlucose [Mass/Vol]319 mg/lHOkjr12-29VofxmSan Luis Obispo General HospitalComment on above:Performed By: #### BMP #### [address] [address] Towel Weaver: LEYDA Cunninghamotassium [Moles/Vol]4.8 mmol/LNormal3.7-5.3 [facility]-Hyde Memorial HospitalComment on above:Performed By: #### BMP #### [address] [address] Towel Weaver: SUNG Cunninghamodium [Moles/Vol]132 mmol/BIco046-622OvxyeTrihealth Mccullough-Hyde Memorial HospitalComment on above:Performed By: #### BMP #### [address] [address] Towel Weaver: Joey Tuttle MDUrea nitrogen [Mass/Vol]52 mg/dLHigh6-20[facility]-Hyde Memorial HospitalComment on above:Performed By: #### BMP #### [address] [address] Towel Weaver: SHAMAR Cunninghamdouglas 26-94-4438Iqnjgslysfv distribution width (RBC) [Ratio]19.9 %High11.8 - 14.4 %Bon [facility] HealthHematocrit (Bld) [Volume fraction]29.6 %Low40.7 - 50.3 %Bon [facility] HealthHemoglobin (Bld) [Mass/Vol]8.7 g/dLLow13.0 - 17.0 g/dLBon [facility] HealthInterpretation and review of laboratory resultsAbnormalBon Secours Mercy HealthMCH (RBC) [Entitic mass]28.2 pg25.2 - 33.5 pgSentara Obici HospitalHC (RBC) [Mass/Vol]29.4 g/dL 28.4 - 34.8 g/dLBon [facility] Hospital - AkronV (RBC) [Entitic vol]96.1 fL82.6 - 102.9 fLNorton Community HospitalNucleated RBC/100 WBC (Bld) [Ratio]0 %0.0 per 100 WBCBon [facility]ana HospitalPlatelet mean volume (Bld) [Entitic vol]10 fL8.1 - 13.5 fLNorton Community HospitalPlatelets (Bld) [#/Vol]222 10*3/uLBon [facility] HospitalRBC (Bld) [#/Vol]3.08 10*6/uLLow4.21 - 5.77 m/uLNorton Community HospitalWBC other (Bld) [#/Vol]9Bon [facility] Erythrocyte distribution width (RBC) [Ratio]19.9 %High11.8-14.4[facility] Hospitalcy [facility]ist Medical CenterComment on above:Performed By: #### PTT #### [facility] [employer] [address] [place] [address] Towel Weaver: Joey Tuttle MDHematocrit (Bld) [Volume fraction]29.6 %Low 40.7-50.3[facility]ist Medical CenterComment on above:Performed By: #### PTT #### [facility] [employer] [address] [place] [address] Towel Weaver: Joey Tuttle MDHemoglobin (Bld) [Mass/Vol]8.7 g/dLLow13.0-17.0 [facility] HospitalComment on above:Performed By: #### PTT #### [address] [id number] Towel Weaver: ALIYAH CunninghamCH (RBC) [Entitic mass]28.2 tvYzlbjt34.2-33.5 [facility] HospitalComment on above:Performed By: #### PTT #### [address] [address] Towel Weaver: ALIYAH CunninghamCHC (RBC) [Mass/Vol]29.4 g/pEXitlop37.4-34.8 [facility] HospitalComment on above:Performed By: #### PTT #### [address] [address] Towel Weaver: ALIYAH CunninghamCV (RBC) [Entitic vol]96.1 fGDuoxhf65.6-102.9 [facility] HospitalComment on above:Performed By: #### PTT #### [address] [address] Towel Weaver: LINO Cunningham Automated0.0 per 100 WBCNormal0.0[facility] HospitalComment on above:Performed By: #### PTT #### [address] [address] Towel Weaver: Baldev Cunningham mean volume (Bld) [Entitic vol]10.0 fL Normal8.1-13.5[facility] HospitalComment on above:Performed By: #### PTT #### [place] [address] Towel Weaver: Austen Cunninghamteboaz (Bld) [#/Vol]222 10*3/xQLfqfuo407-450 [facility] HospitalComment on above:Performed By: #### PTT #### [address] [address] Towel Weaver: JACKIE CunninghamBC (Bld) [#/Vol]3.08 10*6/uLLow4.21-5.77[facility] HospitalComment on above:Performed By: #### PTT #### [facility] [address] [place], [place] [phone] Towel Weaver: Joey Tuttle MDWBC (Bld) [#/Vol]9.0 10*3/uLNormal3.5-11.3[facility] Medical CenterComment on above:Performed By: #### PTT #### [facility] [address] [place], [place] [id number] Towel Weaver: Joey Tuttle MDErythrocyte distribution width (RBC) [Ratio]20.1 %High11.8 - 14.4 %Bon [facility] HospitalHematocrit (Bld) [Volume fraction]32 %Low40.7 - 50.3 %[facility] HospitalHemoglobin (Bld) [Mass/Vol]9.6 g/dLLow 13.0 - 17.0 g/dLBon [facility] HospitalInterpretation and review of laboratory resultsAbnormalSentara Obici HospitalH (RBC) [Entitic mass]28.7 pg25.2 - 33.5 pgBon [facility] AkronHC (RBC) [Mass/Vol]30 g/dL28.4 - 34.8 g/dLBon [facility] - AkronV (RBC) [Entitic vol]95.5 fL82.6 - 102.9 fLNorton Community HospitalNucleated RBC/100 WBC (Bld) [Ratio]0 %0.0 per 100 WBCBon [facility] HospitalPlatelet mean volume (Bld) [Entitic vol]9.8 fL8.1 - 13.5 fLBon [facility] HospitalPlatelets (Bld) [#/Vol]214 10*3/uLBon [facility] RBC (Bld) [#/Vol]3.35 10*6/uLLow4.21 - 5.77 m/uLNorton Community HospitalWBC other (Bld) [#/Vol]7.5Bon [facility] Erythrocyte distribution width (RBC) [Ratio]20.1 %High11.8-14.4[facility] HospitalComment on above:Performed By: #### BMP #### [address] [address] Towel Weaver: Joey Tuttle MDHematocrit (Bld) [Volume fraction]32.0 %Low 40.7-50.3[facility]y [facility] Medical CenterComment on above:Performed By: #### BMP #### [address] [address] Towel Weaver: Joey Tuttle MDHemoglobin (Bld) [Mass/Vol]9.6 g/dLLow13.0-17.0 [facility] HospitalComment on above:Performed By: #### BMP #### [address] [address] Towel Weaver: ALIYAH CunninghamCH (RBC) [Entitic mass]28.7 pxErhwjq70.2-33.5 [facility] HospitalComment on above:Performed By: #### BMP #### [address] [address] Towel Weaver: ALIYAH CunninghamCHC (RBC) [Mass/Vol]30.0 g/fZLnxzab00.4-34.8 [facility] HospitalComment on above:Performed By: #### BMP #### [address] [address] Towel Weaver: ALIYAH CunninghamCV (RBC) [Entitic vol]95.5 hMZfhfob19.6-102.9 [facility] HospitalComment on above:Performed By: #### BMP #### [address] [address] Towel Weaver: Joey Tuttle MDNRBC Automated0.0 per 100 WBCNormal0.0[facility] HospitalComment on above:Performed By: #### BMP #### [address] [address] Towel Weaver: Austen Cunninghamtepayton mean volume (Bld) [Entitic vol]9.8 fL Normal8.1-13.5[facility] HospitalComment on above:Performed By: #### BMP #### [facility] [employer] [address] [place] [address] Towel Weaver: Austen Cunninghamtelets (Bld) [#/Vol]214 10*3/aQMfyunn115-775 [facility] HospitalComment on above:Performed By: #### BMP #### [address] [address] Towel Weaver: Joey Tuttle MDRBC (Bld) [#/Vol]3.35 10*6/uLLow4.21-5.77[facility] HospitalComment on above:Performed By: #### BMP #### [facility] [employer] [address] [place] [address] Towel Weaver: SILVINO CunninghamBC (Bld) [#/Vol]7.5 10*3/uLNormal3.5-11.3MSan Luis Obispo General HospitalComment on above:Performed By: #### BMP #### [address] [address] Towel Weaver: Ivone Cunningham, [employer] 04-34-6823Zylnvdl [Moles/Vol] 1.08 mmol/LLow1.13-1.33[facility] HospitalComment on above: Performed By: #### PTT #### [facility] [employer] [address] [place] [address] Towel Weaver: Ivone Cunningham, Ionizedon 78-75-0095Fnwjsya.ionized (Bld) [Moles/Vol]1.08 mmol/LLow1.13 - 1.33 mmol/LBon [facility] Interpretation and review of laboratory resultsAbnormalBon Secours Health SystemCardiac procedureon 13-92-7767Jrzl surface area Derived from formula2.58 m2Bon [facility]ana HospitalUltrasound-guided right common femoral arterial 6 Djiboutian access. Two perclose sutures deployed in preclose fashion. Left heart cath-LV pressures -elevated 36mmHg. Pigtail catheter removed and Impella CP catheter placed successfully and LV for hemodynamic support which is indicated due to severe ischemic cardiomyopathy with distal left main ostial LAD circumflex distal LAD disease. Unable to pass shockwave balloon to mid left circumflex. Angioplasty performed followed by GuideLiner assisted delivery of shockwave balloon to mid left circumflex. Successful shockwave lithotripsy of mid left circumflex as well as proximal left circumflex. Successful PTCA/TIFFANIE of distal LAD. Successful shockwave lithotripsy of ostial/proximal LAD. Successful shockwave lithotripsy of distal left main. Successful PTCA/TIFFANIE of left main with a stent extending into proximal LAD. DK crush technique for bifurcation of distal left main/ostial LAD/ostial left circumflex. Impella catheter was successfully removed Hemostasis achieved with preclosed sutures. There was a ooze around the sheath during the case with estimated blood loss of 200 cc approximately. Type and crossmatch ordered Coronary Findings Diagnostic Dominance: Right Left Main: Mid LM to Dist LM lesion, 75% stenosed. To LAD Dist LM to Ost LAD lesion, 75% stenosed. The lesion is type B2, irregular and hazy. The lesion is severely calcified. The lesion was not previously treated. The stenosis was measured by a visual reading. The pre-interventional distal flow isnormal (DAVID 3).. Left Anterior Descending: Dist LAD lesion, 95% stenosed. The lesion is type C, hazy, tubular and ulcerative. The lesion was not previously treated. The pre- interventional distal flow is decreased (DAVID 2). Left Circumflex: Prox Cx lesion, 80% stenosed. The lesion is type C, irregular and hazy. The lesionis severely calcified. The stenosis was measured by a visual reading. The pre-interventional distalflow is normal (DAVID 3).. Mid Cx lesion, 85% stenosed. The lesion is type C, irregular and hazy. The lesion is severely calcified. The stenosis was measured by a visual reading. The pre-interventional distal flow is normal (DAVID 3).. Intervention Mid LM to Dist LM lesion: Angioplasty: Angioplasty using a standard balloon was performed prior to stent deployment. Supplies Used: CATH BLLN ANGIO 3X12MM SC EUPHORA RX Angioplasty: Supplies Used: CATH BLLN ANGIO 3X12MM SC EUPHORA RX Angioplasty: Angioplasty using a standard balloon was performed prior to stent deployment. Supplies Used: CATH BLLN ANGIO 3X12MM SC EUPHORA RX Angioplasty: Supplies Used: CATH BLLN ANGIO 3X12MM SC EUPHORA RX Intravascular Lithotripsy (Also treats lesions: Dist LM to Ost LAD): IVL total # inflations: 7. 1. 6atm for 15secs 2.6atm for 15secs 3. 6atm for 15secs 4.6atm for 15secs 5. 6atm for 15secs 6.6atm for 15secs 7. 6atm for 15secs No 6 and 7 inflation for left main Supplies Used: CATHETER IVL C2PLUS SHOCKWAVE 3.5MM X 12MM Stent: A single stent was placed. Drug-eluting stent was successfully placed. Supplies Used: STENT CORONARY RL FRONTIER RX 4X18 MM ZOTAROLIMUS ELUTE Stent: Stent was successfully placed. Supplies Used: STENT CORONARY RL FRONTIER RX 4X18 MM ZOTAROLIMUS ELUTE Angioplasty (Also treats lesions: Dist LM to Ost LAD): Angioplasty using a standard balloon was performed following stent deployment. Lesion complication(s): no complications. Supplies Used: CATH BLLN ANGIO 4X15MM SC EUPHORA RX Angioplasty (Also treats lesions: Dist LM to OstLAD): Angioplasty using a standard balloon was performed prior to stent deployment. Lesion complication(s): no complications. Kissing with the 4mm x 15 Supplies Used: CATH BLLN ANGIO 3X12MM SC EUPHORA RX Angioplasty: Supplies Used: CATH BLLN ANGIO 3X12MM SC EUPHORA RX Angioplasty: Angioplasty usinga standard balloon was performed prior to stent deployment. Supplies Used: CATH BLLN ANGIO 4.76Z1RTRY EUPHORIA RX Angioplasty: Supplies Used: CATH BLLN ANGIO 4.50X8MM NC EUPHORIA RX Post-Intervention Lesion Assessment: The intervention was successful. The guidewire crossed the lesion. Device was not deployed. The pre-interventional distal flow is normal (DAVID 3). Post-intervention DAVID flow is 3. Lesion had 18 mm of its length treated. There were no complications. There is a 0% residual stenosis post intervention. Dist LM to Ost LAD lesion: Intravascular Lithotripsy (Also treats lesions: Mid LM to Dist LM): IVL total # inflations: 7. 1. 6atm for 15secs 2.6atm for 15secs 3. 6atm for 15secs 4.6atm for 15secs 5. 6atm for 15secs 6.6atm for 15secs 7. 6atm for 15secs No 6 and 7 inflation for left main Supplies Used: CATHETER IVL C2PLUS SHOCKWAVE 3.5MM X 12MM Angioplasty (Also treats lesions: Mid LM to Dist LM): Angioplasty using a standard balloon was performed following stent deployment. Lesion complication(s): no complications. Supplies Used: CATH BLLN ANGIO 4X15MM SC EUPHORA RX Angioplasty (Als (more content not included)...[facility] CV CPACS HEMOBCentra Virginia Baptist HospitalTravelCLICKRadiology Study observation (narrative)Critical Access HospitalTravelCLICKCell Count with Differential, Body Fluidon 02-13-2025 Appearance (Body fld)ClearBon SecTivix HealthClot CheckNone SeenBon [facility] CenterTivix HealthColor (Body fld)ColorlessBon [facility] Health CenterTivix [facility] Medical CenterEosinophils/100 WBC (Body fld)4 %Mati7Slc ShoutitoutComment on above:No normal range established for fluids.Fluid Nom (Body fld).PERITONEAL DIALYSIS FLUIDCritical Access HospitalTivix HealthInterpretation and review of laboratory resultsAbnormalBon [facility] Health CenterTivix [facility] Medical CenterLymphocytes/100 WBC (Body fld)21 %Banner Simplificare [facility] So[facility] Medical CenterComment on above:No normal range established for fluids.Mesothelial Cells Body Fluid0 %Datamolino HealthComment on above:No normal range established for fluids. Monocytes/100 WBC (Body fld)66 %Datamolino HealthComment on above:No normal range established for fluids.Neutrophils/100 WBC (Body fld)9 %Datamolino HealthComment on above:No normal range established for fluids.Nucleated cells (Body fld) [#/Vol]61cells/uLBon ShoutitoutComment on above:No normal range established for fluids.RBC (Body fld) [#/Vol]cells/uLBon Secours St. Charles Hospitaly HealthComment on above:No normal range established for fluids.Alexus Mcginnis HealthEKG 12 Leadon 81-58-8719Qyxhxs Iisw82RYVYuf Secours Mercy HealthP Rrvp91bdbgcxnMbw Sec[facility] HealthP-R Vtmovnxx287 msBon [facility] Health Q-T Sgbreazd785 msBon Secours Mercy HealthQRS Pfgcnspj04 msBon [facility] HealthQTc Calculation (Bazett)458 msBon [facility]ours Mercy HealthR Xeel06uaikqdcXlo [facility]ours [facility] HealthT Wqmm994roycnbnQhm [facility] HealthVentricular Rate79 BPMBon [facility]ours [facility] HealthNormal sinus rhythm Nonspecific T wave abnormality Abnormal ECG When compared with ECG of 10-FEB-2025 06:36, No significant change was foundMHCristel Wick MD - 02/13/2025 Normal sinus rhythm Nonspecific T wave abnormality Abnormal ECG When compared with ECG of 10-FEB-2025 06:36, No significant change was found Bon Jose Mcginnis HealthBanner SecGarfield County Public Hospitalgayathri HealthFluid Cell Count and Diffon 96-58-8483Oamq Fluid Mesothelials0 %NormalTrihealth Mccullough-Hyde Memorial Hospital Comment on above:Result Comment: No normal range established for fluids. Performed By: #### FLDCT ####[facility] [address] [place] [address] Lab Director: Kassy Cunningham (U)[facility] Medical CenterComment on above:Performed By: #### FLDCT ####[facility] [address] [place] [address] Lab Director: Joey Tuttle MDBody Fluid Ttl Fupgdetrp11 cells/[facility] Ahuja Medical CenterComment on above:Result Comment: No normal range established for fluids. Performed By: #### FLDCT ####[facility] [address] [place] [address] Lab Director: SHAMAR Cunninghamlot CheckNone SeenAkron Children's HospitalComment on above:Performed By: #### FLDCT ####[facility] [address] [place] [address] Lab Director: SHAMAR Cunninghamolor (U)ColorlessAkron Children's HospitalComment on above:Performed By: #### FLDCT ####[facility] [address] [place] [address] Lab Director: Joey Tuttle MDEosinophils/100 WBC (Bld)4 % Ohep9DssevTrihealth Mccullough-Hyde Memorial HospitalComment on above:Result Comment: No normal range established for fluids.Performed By: #### FLDCT ####[facility] [address] [address] Lab Director: Joey Tuttle MD Lymphocytes/100 WBC (Bld)21 %[facility] Children's HospitalComment on above:Result Comment: No normal range established for fluids.Performed By: #### FLDCT ####[facility] [address] [place] [address] Lab Director: ALIYAH Cunninghamono/Chxgomnwju66 %[facility] Children's HospitalComment on above:Result Comment: No normal range established for fluids. Performed By: #### FLDCT ####[facility] [address] [place] [address] Lab Director: Joey Tuttle MDNeutrophils/100 WBC (Bld)9 % [facility] Children's HospitalComment on above:Result Comment: No normal range established for fluids.Performed By: #### FLDCT ####[facility] [address] [place] [address] Lab Director: Joey Tuttle MDRBC (Bld) [#/Vol]10*6/uLNormalTrihealth Mccullough-Hyde Memorial HospitalComment on above:Result Comment: No normal range established for fluids.Performed By: #### FLDCT ####[facility] [address] [place], [place] [address] Lab Director: Joey Tuttle MDGlucose,Whole Bloodon 40-83-8654Hdmyega [Mass/Vol] 382 mg/wOWaiw87-507Zncga [facility] Medical CenterGlucose [Mass/Vol]344 mg/dL Rzee97-420CffecTrihealth Mccullough-Hyde Memorial HospitalGlucose [Mass/Vol]211 mg/qWEdpk17-935 [facility] Memorial HospitalGlucose [Mass/Vol]259 mg/jTYupq67-674EizoeEden Medical CenterGlucose [Mass/Vol]286 mg/pNBrht86-080GzgacEden Medical CenterGlucose [Mass/Vol]296 mg/tYCgyh77-839JhelfTrihealth Mccullough-Hyde Memorial HospitalMagnesiumon 06-85-9411Feamnmbxk [Mass/Vol]2.1 mg/dL1.6 - 2.6 mg/dLBon [facility] HospitalMagnesium [Mass/Vol]2.1 mg/dLNormal1.6-2.6Mer[facility] Medical CenterComment on above:Performed By: #### PTT #### [facility] [address] [place] [phone] Towel Weaver: Joey Tuttle MDNo Panel Informationon 38-81-4[address]K[facility] Glucose Fingerstickon 80-46-9377Oohdvrm [Mass/Vol]382 mg/dLHigh 75 - 110 mg/dLBon [facility] HospitalInterpretation and review of laboratory resultsAbnormalCarilion Stonewall Jackson HospitalGlucose [Mass/Vol]344 mg/vPWpzd06 - 110 mg/dLBon [facility] HospitalInterpretation and review of laboratory resultsAbnormalCarilion Stonewall Jackson HospitalGlucose [Mass/Vol]211 mg/tOYptz35 - 110 mg/dLBon [facility] Interpretation and review of laboratory resultsAbnormalBon Secours Health SystemGlucose [Mass/Vol]259 mg/aAEqvb84 - 110 mg/dLBon [facility] HospitalInterpretation and review of laboratory resultsAbnormalCarilion Stonewall Jackson HospitalGlucose [Mass/Vol]286 mg/jGVtvs05 - 110 mg/dLBon [facility] HospitalInterpretation and review of laboratory results AbnormalBon [facility] CenterGlucose [Mass/Vol]296 mg/iTQcns10 - 110 mg/dLBon [facility] HospitalInterpretation and review of laboratory resultsAbnormalCarilion Stonewall Jackson HospitalType + Screenon 93-00-6488Qszp + ScreenSample Expiration 02/16/2025,2359 Arm Band Number [id number] ABO/Rh(D) AB NEGATIVE Antibody Screen NEGATIVE Unit Number [id number] Blood Component Type Leukocyte Reduced Red Cell Unit Division 00 Status of Unit TRANSFUSED Transfusion Status OK TO TRANSFUSE Crossmatch Result COMPATIBLEAkron Children's HospitalComment on above:Performed By: #### TYS ####[address]Around[address] [place] [id number] Lab Director: Justin Cunningham 50-15-7685hUZW Coag (Bld) [Time]88.6 sHighBon [facility]rb[facility] HospitalComment on above: IV Heparin Therapy Range: 66.0-92.0 sec Interpretation and review of laboratory resultsAbnoCoteau des Prairies HospitalaPTT Coag (Bld) [Time]88.6 sHigh23.0-36.5[facility] HospitalComment on above:Result Comment: IV Heparin Therapy Range: 66.0-92.0 secPerformed By: #### GLYHGB, FEBC, JUDD, BMP, CBC #### [facility] [address] [place] [address] Towel Weaver: Berenice Cunningham Metabolic Panelon 46-56-1604Zrhmf gap [Moles/Vol]18 mmol/LHigh9 - 16 mmol/LBon [facility] HospitalCalcium [Mass/Vol] 9.1 mg/dL8.6 - 10.4 mg/dLBon [facility] HospitalChloride [Moles/Vol]98 mmol/L98 - 107 mmol/LBon [facility] HospitalCO2 [Moles/Vol]19 mmol/LLow20 - 31 mmol/L [facility] HospitalCreatinine [Mass/Vol]7.0 mg/dLCritically high0.7 - 1.2 mg/dLBon [facility] HospitalComformerly [facility] on above:Previous Alert Value ReportedMalka Rojas Tmqp7Pbu- PINFBon [facility] HospitalComment on above: These results are not intended for use in patients <18 years of age. eGFR results are calculated without a race factor using the 2020 CKD-EPI equation. Careful clinical correlation is recommended, particularly when comparing to results calculated using previous equations. The CKD-EPI equation is less accurate in patients with extremes of muscle mass, extra-renal metabolism of creatine, excessive creatine ingestion, or following therapy that affects renal tubular secretion. Glucose [Mass/Vol]268 mg/oORkfc86 - 99 mg/dLBon [facility] Interpretation and review of laboratory resultsAbnormalBon [facility] Potassium [Moles/Vol]4.5 mmol/L3.7 - 5.3 mmol/LBon [facility] HospitalSodium [Moles/Vol]135 mmol/DPwu208 - 145 mmol/LBon [facility] HospitalUrea nitrogen [Mass/Vol]53 mg/dLHigh6 - 20 mg/dLBon [facility] CenterBasic Metabolic Profon 93-02-5080Enyjw gap [Moles/Vol]18 mmol/LHigh9-16 [facility] HospitalComment on above:Performed By: #### GLYHGB, FEBC, JUDD, BMP, CBC #### [facility] [address] [place], [place] 17[address] Towel Weaver: SHAMAR Cunninghamalcium [Mass/Vol]9.1 mg/dLNormal8.6-10.4[facility] HospitalComment on above:Performed By: #### GLYHGB, FEBC, JUDD, BMP, CBC #### [facility] [address] [place] [address] Towel Weaver: SHAMAR Cunninghamhloride [Moles/Vol]98 mmol/ERspxru25-908PkjedTrihealth Mccullough-Hyde Memorial HospitalComment on above:Performed By: #### GLYHGB, FEBC, JUDD, BMP, CBC #### [facility] [address] [place] [address] Towel Weaver: Joey Tuttle MDCO2 [Moles/Vol]19 mmol/MQyx69-77BossgTrihealth Mccullough-Hyde Memorial HospitalComment on above:Performed By: #### GLYHGB, FEBC, JUDD, BMP, CBC #### [facility] [address] [place] [address] Towel Weaver: SHAMAR Cunninghamreatinine [Mass/Vol]7.0 mg/dLCritically high 0.7-1.2MSan Luis Obispo General HospitalComment on above:Result Comment: Previous Alert Value ReportedPerformed By: #### GLYHGB, FEBC, JUDD, BMP, CBC #### [facility] [address] [place] [address] Towel Weaver: Joey Tuttle MDGFR/1.73 sq M.predicted among non-blacks MDRD (S/P/Bld) [Vol rate/Area]9 mL/min/{1.73_m2}Low>60[facility] HospitalComment on above:Result Comment: These results are not intended for use in patients <18 years of age. eGFR results are calculated without a race factor using the 2020 CKD-EPI equation. Careful clinical correlation is recommended, particularly when comparing to results calculated using previous equations. The CKD-EPI equation is less accurate in patients with extremes of muscle mass, extra-renal metabolism of creatine, excessive creatine ingestion, or following therapy that affects renal tubular secretion.Performed By: #### GLYHGB, FEBC, JUDD, BMP, CBC #### [facility] [address] [place] [address] Towel Weaver: Joey Tuttle MDGlucose [Mass/Vol]268 mg/oNDtgk65-38ZblawSan Luis Obispo General HospitalComment on above:Performed By: #### GLYHGB, FEBC, JUDD, BMP, CBC #### [facility] [address] [place] [address] Towel Weaver: LEYDA Cunninghamotassium [Moles/Vol]4.5 mmol/LNormal3.7-5.3 [facility] HospitalComment on above:Performed By: #### GLYHGB, FEBC, JUDD, BMP, CBC #### [facility] [address] [place] [address] Towel Weaver: Joey Tuttle MDSodium [Moles/Vol]135 mmol/EYzx925-428XtdwyTrihealth Mccullough-Hyde Memorial HospitalComment on above:Performed By: #### GLYHGB, FEBC, JUDD, BMP, CBC #### [facility] [employer] [address] [place] [address] Towel Weaver: Joey Tuttle MDUrea nitrogen [Mass/Vol]53 mg/dLHigh6-20[facility] HospitalComment on above:Performed By: #### GLYHGB, FEBC, JUDD, BMP, CBC #### [facility] [employer] [address] [place] [address] Towel Weaver: SHAMAR Cunninghamardiac echo study Procedureon 61-54-9785Ty Root Index1.02 cm/m2[facility] HealthAortic Root2.5 cmBon Secours Mercy HealthAV Area by Peak Velocity1.7 cm2Bon [facility] HealthAV Area by VTI1.7 cm2Bon [facility] HealthAV Mean Xgjnxwtm67qlDcZjp Secours Mercy HealthAV Mean Velocity1.5 m/sBon Secours Mercy HealthAV Peak Qqdgrqhl40cpXuKkm Secours Mercy HealthAV Peak Velocity2.2 m/sBon Secours Mercy HealthAV Velocity Ratio0.55[facility] HealthAV VTI39.2 cmBon [facility]ours [facility]cy HealthAVA/BSA Peak Velocity 0.7 cm2/m2[facility] HealthAVA/BSA VTI0.7 cm2/m2[facility] Body surface area Derived from formula2.58 m2Bon [facility] HealthE/E' Vpkqgai65.53[facility] HealthE/E' Ratio (Averaged)19.83[facility] HealthE/E' Mesrmh84.14[facility] HealthEF BP36 %Irwjsaav61 - 100 %[facility] HealthEF Zpdxziosg47 %[facility] HealthFractional Shortening 2D11 %28 - 44 %[facility] HealthInterpretation and review of laboratory resultsAbnormalBon [facility]ours Mer[facility] HealthIVC Expiration1.8 cmBon Secours Mercy HealthIVC Inspiration1.7 cmBon Secours Mer[facility] HealthIVSd1.3 cm Abnormal0.6 - 1.0 cmBon Secours Mercy HealthLA Area 2C25.8 cm2Bon [facility] Mer[facility] HealthLA Area 4C28.6 cm2Bon [facility] Mercy HealthLA Diameter4.4 cmBon Secours Mercy HealthLA Major Axis7.9 cmBon Secours Mercy HealthLA Minor Axis6.7 cmBon Secours Mercy HealthLA Size Index1.79 cm/m2Bon [facility] Mercy HealthLA Volume BP 88 zCWktnoutm49 - 58 mLBon Secours Mercy HealthLA Volume Index BP36 ml/m2 Ufpbxfgp68 - 34 ml/m2Bon Secours Mercy HealthLA Volume Index MOD A2C33 ml/m216 - 34 ml/m2[facility] Volume Index MOD A4C33 ml/m216 - 34 ml/m2[facility]LA Volume MOD A2C81 lOXrahygpf74 - 58 mLBon [facility] HealthLA Volume MOD A4C81 iHMovspfvb00 - 58 mLBon [facility]ours Mercy HealthLA/AO Root Ratio1.76[facility]LV E' Lateral Velocity6.09 cm/sBon [facility]ours [facility] HealthLV E' Septal Velocity6.53 cm/sBon Secours Mercy HealthLV EDV G6K725 mLBon [facility] HealthLV EDV E7H072 mLBon [facility] EDV Index A2C67 mL/m2[facility] EDV Index A4C63 mL/m2[facility] Ejection Fraction A2C38 %[facility] Ejection Fraction A4C36 %[facility] ESV P8L396 mL[facility] ESV L1S309 mLBon [facility]LV ESV Index A2C42 mL/m2[facility] ESV Index A4C41 mL/m2[facility] Mass 2D210.2 g88 - 224 gBon Secours Mercy HealthLV Mass 2D Index85.4 g/m249 - 115 g/m2[facility]LV RWT Ratio0.53[facility] HealthLVIDd4.5 cm4.2 - 5.9 cmBon Secours Mercy HealthLVIDd Index1.83 cm/m2[facility] HealthLVIDs4 cmBon Secours Mercy HealthLVIDs Index1.63 cm/m2[facility] HealthLVOT Area3.1 cm2[facility] HealthLVOT Diameter2 cmBon Secours Mercy HealthLVOT Mean Oyzywesk0kkWaQjt Secours Mercy HealthLVOT Peak Iwxpgrgu7erHcHmq [facility] HealthLVOT Peak Velocity1.2 m/sBon [facility]ours Mercy HealthLVOT Stroke Volume Index 27.4 mL/m2[facility] HealthLVOT SV67.5 mlBon Secours Mercy HealthLVOT VTI 21.5 cmBon Secours Mercy HealthLVOT:AV VTI Index0.55[facility] LVPWd1.2 cmAbnormal0.6 - 1.0 cmBon Secours Mercy HealthMV A Velocity1.12 m/sBon Secours Mercy HealthMV Area by VTI2.3 cm2[facility] HealthMV E Velocity 1.25 m/sBon Secours Mercy HealthMV E Wave Deceleration Time92 msBon Secours Mercy HealthMV E/A1.12[facility] HealthMV Max Velocity1.5 m/sBon Secours Mercy HealthMV Mean Shyiginy4hqZyGep Secours Mercy HealthMV Mean Velocity1 m/s [facility]MV Peak Skghestg7ghTxMhf [facility] HealthMV VTI29.7 cmBon Secours Mercy HealthMV:LVOT VTI Index1.38[facility] HealthPV Max Velocity0.9 m/sBon [facility]ours [facility] HealthPV Peak Ixhmpake7nrGsLaj [facility] HealthRV Basal Dimension4.5 cmBon [facility] HealthRV Free Wall Peak S'13.4 cm/sBon [facility]en[facility] HealthTAPSE2.6 cm1.7 cmBon [facility] Centerzeenworld HealthLeft Ventricle: Moderately reduced left ventricular systolic function with a visually estimated EF of 35 - 40%. EF by 2D Simpsons Biplane is 36%. Left ventricle size is normal. Increased wall thickness. Findings consistent with mild concentric hypertrophy. Global hypokinesis present. Grade II diastolic dysfunction with increased LAP. Right Ventricle: Right ventricle is mildly dilated. Mitral Valve: Mild annular calcification. Mild stenosis noted. MV mean gradient is 4 mmHg. Left Atrium: Left atrium is mildly dilated. Image quality is adequate. Contrast used: Lumason. Left Ventricle Moderately reduced left ventricular systolic function with a visually estimated EF of 35 - 40%. EF by 2D Simpsons Biplane is 36%. Left ventricle size is normal. Increased wall thickness. Findings consistent with mild concentric hypertrophy. Global hypokinesis present. Grade II diastolic dysfunctionwith increased LAP. Right Ventricle Right ventricle is mildly dilated. Normal systolic function. Left Atrium Left atrium is mildly dilated. Right Atrium Right atrium size is normal. IVC/SVC IVC diameter is less than or equal to 21 mm and decreases less than 50% during inspiration; therefore the estimated right atrial pressure is 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 (~8 mmHg). IVC size is normal. Mitral Valve Mild annular calcification. No regurgitation. Mild stenosis noted. MV mean gradient is 4 mmHg. Tricuspid Valve Valve structure is normal. No regurgitation. No stenosis noted. Unable to assess RVSP due to inadequate or insignificant tricuspid regurgitation. Aortic Valve Not well visualized. No regurgitation. No stenosis. Pulmonic Valve The pulmonic valve was not well visualized. No regurgitation. No stenosis noted. Ascending Aorta Normal sized aortic root and ascending aorta. Pericardium No pericardial effusion. Septum No interatrial shunt visualized with color Doppler. Study Details Image quality: adequate. Color flow Doppler was performed and pulse wave and/or continuous wave Doppler was performed. Lumason contrast was given to enhance imaging. Wall Scoring Baseline Score Index: 2.00 The left ventricular wall motion is globally hypokinetic.[facility] CV CPACSBon [facility]rbana HospitalRadiology Study observation (narrative)[facility] Community HospitalCardiac procedureon 58-02-0819Xurs surface area Derived from formula2.61 m2Banner ShoutitoutUltrasound-guided right common femoral arterial 6 [place]ib[place]ian access. Severe multivessel coronary artery disease. Severe LV systolic dysfunction, LVEF 15%. Elevated LVEDP of 33 mmHg Coronary Findings Diagnostic Dominance: Right Left Main: Has distal 60% stenosis Left Anterior Descending: Has ostial 95% stenosis followed by previously placed stent in the proximal to mid segment with 30% in-stent restenosis. Distal LAD has 80% stenosis. D1 has proximal stent placement with 90% in-stent restenosis Left Circumflex: Has heavy calcification with mid 85% stenosis. OM1 has ostial 50% stenosis. LPL is30% stenosis Right Coronary Artery: Has proximal 100% occlusion with robust xxud-ne-hmlon collaterals Intervention No interventions have been documented. Left Ventricle The left ventricle is dilated. There is severe left ventricular systolic dysfunction. LV EDP is: 33. The ejection fraction is 15%. Bleeding Risk Calculator Bleeding Risk points = 0. Cath Recommendations Post cardiac cath protocol is recommended. Patient management should include: Aggressive risk factor modification and aggressive medical management. Patient has severe disease of ostial LAD as well as left main. RCA is occluded. In addition severe cardiomyopathy on LV gram. Obtain a stat echocardiogram with Definity to reevaluate LV function and exclude apical thrombus. Apparently patient does not want to have surgery. I will consult CT surgeryconsult for heart team approach. If LV apical thrombus is excluded, can proceed with high risk PCI of left main LAD and left circumflex bifurcation.[facility] CV CPACS HEMOB ShoutitoutRadiology Study observation (narrative)Banner ShoutitoutEK 12 LeadOrdered By: Cristel Ibarra on 30-56-3897Qowwgk Onik59GJURni [employer] Phone: P Rxet05xqrmulqEor [employer] Phone: P-R Hbegbizc514 [employer] Phone: Q-T Eunoxuix512 [employer] Phone: QRS Qcfdgzzz53 [employer] Phone: QTc Calculation (Elizabeth)473 [employer] Phone: R Tvex54myfxwiaQpz SecN[facility]y [facility] Work Phone: T Mccook-112degreesBon SecNexaweb Technologiesy Health Work Phone: Ventricular Pjpn70UIXEqc Secours Tumotorizado.comy Health Work Phone: Bon SecNexaweb Technologiesy Health Work Phone: EKG 12 Leadon 91-01-0577Nlqxlg sinus rhythm Cannot rule out Inferior infarct (cited on or before 11-OCT-2016) Abnormal ECG When compared with ECG of 12-OCT-2016 10:08, ST no longer depressed in Anterior leads T wave inversion no longer evident in Anterior leadsCristel Wick MD - 02/12/2025 Normal sinus rhythm Cannot rule out Inferior infarct (cited on or before 11-OCT-2016) Abnormal ECG When compared with ECG of 12-OCT-2016 10:08, ST no longer depressed in Anterior leads T wave inversion no longer evident in Anterior leads [facility] HealthAtrial Ruad02DZCFjd Secours Mercy HealthP Jkkd33ajfcvwp [facility] HealthP-R Ybopjncp093 msBon Secours Mercy HealthQ-T Interval 392 msBon Secours Mercy HealthQRS Wcjbzpxc12 msBon Secours Mercy HealthQTc Calculation (Bazett)452 msBon Secours Mercy HealthR Mhew61zgmudlgUii Secours Mercy HealthT Mccook-114degreesBon Secours Mercy HealthVentricular Mhac98LBEAxe [facility]ours Mercy HealthNormal sinus rhythm Low voltage QRS Cannot rule out Anterior infarct (cited on or before 10-FEB-2025) T wave abnormality, consider inferior ischemia Abnormal ECG When compared with ECG of 10-FEB-2025 10:26, No significant change was foundMHPN Cristel Sheldon MD - 02/12/2025 Normal sinus rhythm Low voltage QRS Cannot rule out Anterior infarct (cited on or before 10-FEB-2025) T wave abnormality, consider inferior ischemia Abnormal ECG When compared with ECG of 10-FEB-2025 10:26, No significant change was found [facility] HospitalFluid Cell Count and Diffon [id number] of Specimen.PERITONEAL DIALYSIS FLUIDNoFlower HospitalComment on above:Performed By: #### FLDCT ####[employer] [address] [place] [address] Lab Director: Joey Tuttle MDGlucose,Whole Bloodon 75-68-2839Dtyhobv [Mass/Vol]403 mg/dLCritically yrhr26-383OqqjuTrihealth Mccullough-Hyde Memorial HospitalComment on above:Result Comment: Critical NotedGlucose [Mass/Vol]216 mg/kFSkqn72-236QkzsmTrihealth Mccullough-Hyde Memorial HospitalGlucose [Mass/Vol]216 mg/tDTpyy21-575Jyand[address] Glucose [Mass/Vol]269 mg/lABbez26-361Vneca67 [address]quez StreetGram Stain on 15-94-1323Zpxtbframejfs or agent identified Nom (Unsp spec)FEW NEUTROPHILSBon [facility]rbana HospitalMicroorganism or agent identified Nom (Unsp spec)NO BACTERIA SEENNorton Community HospitalMicroorganism or agent identified Nom (Unsp spec)Gram stain made from cytocentrifuged specimen. Organisms and cells will be concentrated.[facility] HealthSpecimen Description.PERITONEAL DIALYSIS FLUIDBon [facility] Medical CenterMicroscopic observation Gram stain Nom (Unsp spec)Specimen Description .PERITONEAL DIALYSIS FLUID Direct Exam FEW NEUTROPHILS NO BACTERIA SEEN Gram stain made from cytocentrifuged specimen. Organisms and cells will be concentrated. Report Status FINAL 02/12/2025[facility] HospitalComment on above:Performed By: #### GS #### [employer] [facility] [address] [place] [address] Towel Weaver: LEYDA CunninghamHYMIN ID DOCUMENTon [id number] TestGS AND FLUID CELL COUNTNorton Community HospitalPHYSICIANKHALED ABUHANTTASHNorton Community HospitalPhysician ID CommentSpecimen received in laboratory failed to meet specimen identification criteria. The laboratory is authorized to use this specimen for testing and reporting of results by [facility] HospitalSpecimen source Nom ([facility] Hospitalp spec).PERITONEAL DIALYSIS FLUIDBon [facility] CenterPHYSICIAN ID Wan [id number] NAME TANIA AGUILARAkron Children's HospitalComment on above: Performed By: #### GLYHGB, FEBC, JUDD, BMP, CBC #### [employer] [address] [place] [address] Towel Weaver: Romina Cunningham of sample.PERITONEAL DIALYSIS FLUIDPromedica Flower HospitalComment on above:Performed By: #### GLYHGB, FEBC, JUDD, BMP, CBC #### [facility] [employer] [address] [place] [address] Towel Weaver: Joey Tuttle MDTest orderedGS AND FLUID CELL COUNTAkron Children's HospitalComment on above:Performed By: #### GLYHGB, FEBC, JUDD, BMP, CBC #### [facility] [address] [place] [address] Towel Weaver: SHAMAR Cunninghamomment:Specimen received in laboratory failed to meet specimen identification criteria.[facility] Comment on above:Result Comment: The laboratory is authorized to use this specimen for testing and reporting of results by Performed By: #### GLYHGB, FEBC, JUDD, BMP, CBC #### [facility] [address] [place] [address] Towel Weaver: KENTON Cunningham Glucose Fingerstickon 77-56-2056Ywvlvfj [Mass/Vol]403 mg/dLCritically high75 - 110 mg/dLBon [facility] HospitalComment on above:Critical NotedInterpretation and review of laboratory resultsAbnormal [facility] HospitalGlucose [Mass/Vol]216 mg/dLHigh 75 - 110 mg/dLBon [facility] HospitalInterpretation and review of laboratory resultsAbnoThe Rehabilitation [facility] of [facility] CenterGlucose [Mass/Vol]216 mg/aVQdmu07 - 110 mg/dLBon [facility] HospitalInterpretation and review of laboratory resultsAbnormalBon [facility] CenterGlucose [Mass/Vol]269 mg/cKHnxp07 - 110 mg/dLBon [facility] Interpretation and review of laboratory resultsAbnormSovah Health - DanvilleAPTDignity Health [facility] 98-76-5066tJXG Coag (Bld) [Time]78.6 [facility] HospitalComment on above: IV Heparin Therapy Range: 66.0-92.0 sec Interpretation and review of laboratory resultsAbnormSovah Health - DanvilleaPTT Coag (Bld) [Time]78.6 sHigh23.0-36.5Trihealth Mccullough-Hyde Memorial HospitalComment on above:Result Comment: IV Heparin Therapy Range: 66.0-92.0 secPerformed By: #### BMP #### [employer] [address] [place], [place] [phone] Towel Weaver: Joey Tuttle MDaPTDeniz Coag (Bld) [Time]87.4 [facility] HospitalComformerly [facility] on above: IV Heparin Therapy Range: 66.0-92.0 sec Interpretation and review of laboratory resultsAbnoCoteau des Prairies HospitalaPTT Coag (Bld) [Time]87.4 sHigh23.0-36.5Trihealth Mccullough-Hyde Memorial HospitalComment on above:Result Comment: IV Heparin Therapy Range: 66.0-92.0 secPerformed By: #### PTT #### [employer] [address] [place] [address] Towel Weaver: Berenice Cunningham Metabolic Panelon 92-83-4688Uimip gap [Moles/Vol]20 mmol/LHigh9 - 16 mmol/LBon [facility] HospitalCalcium [Mass/Vol] 8.9 mg/dL8.6 - 10.4 mg/dLBon Secours Mercy HealthChloride [Moles/Vol]96 mmol/L Low98 - 107 mmol/LBon SecGarfield County Public Hospitaly HealthCO2 [Moles/Vol]15 mmol/LLow20 - 31 mmol/LBon SecLallie Kemp [facility] Center HealthCreatinine [Mass/Vol]6.8 mg/dLCritically high0.7 - 1.2 mg/dLBon [facility] HealthComment on above:Previous Alert Value Reported EstMalka Dygu1Phm- PINFBon [facility]rbana HospitalComment on above: These results are not intended for use in patients <18 years of age. eGFR results are calculated without a race factor using the 2020 CKD-EPI equation. Careful clinical correlation is recommended, particularly when comparing to results calculated using previous equations. The CKD-EPI equation is less accurate in patients with extremes of muscle mass, extra-renal metabolism of creatine, excessive creatine ingestion, or following therapy that affects renal tubular secretion. Glucose [Mass/Vol]326 mg/jTZjpc18 - 99 mg/dLBon [facility] Centerours [facility] HealthPotassium [Moles/Vol]4.5 mmol/L3.7 - 5.3 mmol/LBon [facility] HospitalComment on above: Specimen hemolysis has exceeded the interference as defined by Tristan. Value may be falsely increased. Suggest recollection if clinically indicated. Sodium [Moles/Vol]131 mmol/WOgi319 - 145 mmol/LBon [facility] HealthUrea nitrogen [Mass/Vol]53 mg/dLHigh6 - 20 mg/dLBon [facility] HospitalBasic Metabolic Profon 93-23-8326Lbxfguo [Mass/Vol]8.9 mg/dLNormal8.6-10.4Trihealth Mccullough-Hyde Memorial HospitalComment on above:Performed By: #### PTT #### [facility] [place] [address] Towel Weaver: Joey Tuttle MDGFR/1.73 sq M.predicted among non-blacks MDRD (S/P/Bld) [Vol rate/Area]9 mL/min/{1.73_m2}Low>60Tri[facility] Mccullough-Hyde Memorial HospitalComment on above:Result Comment: These results are not intended for use in patients <18 years of age. eGFR results are calculated without a race factor using the 2020 CKD-EPI equation. Careful clinical correlation is recommended, particularly when comparing to results calculated using previous equations. The CKD-EPI equation is less accurate in patients with extremes of muscle mass, extra-renal metabolism of creatine, excessive creatine ingestion, or following therapy that affects renal tubular secretion.Performed By: #### PTT #### [employer] [address] [place] [address] Towel Weaver: Joey Tuttle MDAnion gap [Moles/Vol]20 mmol/LHigh9-16Tri[facility]ull[facility]-Hyde Memorial HospitalComment on above:Performed By: #### PTT #### [employer] [address] [place] [address] Towel Weaver: SHAMAR Cunninghamhloride [Moles/Vol]96 mmol/GDck34-621TdxtiTrihealth Mccullough-Hyde Memorial HospitalComment on above:Performed By: #### PTT #### [facility] [address] [place] [address] Towel Weaver: Joey Tuttle MDCO2 [Moles/Vol]15 mmol/FJjp01-99PggvmTrihealth Mccullough-Hyde Memorial HospitalComment on above:Performed By: #### PTT #### [facility] [address] [place] [address] Towel Weaver: SHAMAR Cunninghamreatinine [Mass/Vol]6.8 mg/dLCritically high 0.7-1.2MSan Luis Obispo General HospitalComment on above:Result Comment: Previous Alert Value ReportedPerformed By: #### PTT #### [employer] [address] [place] [address] Towel Weaver: Joey Tuttle MDGlucose [Mass/Vol]326 mg/yEDkmi37-54MwhhnRiverside Community HospitalComment on above:Performed By: #### PTT #### [facility] [address] [place] [address] Towel Weaver: Joey Tuttle MDPotassium [Moles/Vol]4.5 mmol/LNormal3.7-5.3 [facility]-Hy[facility] Memorial HospitalComment on above:Result Comment: Specimen hemolysis has exceeded the interference as defined by Tristan. Value may be falsely increased. Suggest recollection if clinically indicated.Performed By: #### PTT #### [employer] [address] [place], [place] [phone] Towel Weaver: SUNG Cunninghamodium [Moles/Vol]131 mmol/BZal470-888XznzlTrihealth Mccullough-Hyde Memorial HospitalComment on above:Performed By: #### PTT #### [employer] [address] [place] [address] Towel Weaver: Joey Tuttle MDUrea nitrogen [Mass/Vol]53 mg/dLHigh6-20Tri[facility]-Hyde Memorial HospitalComment on above:Performed By: #### PTT #### [employer] [address] [place], [place] [phone] Towel Weaver: SHAMAR Cunninghamdouglas 10-18-5342Stdpnhpjvjg distribution width (RBC) [Ratio]19.9 %High11.8 - 14.4 %[facility] Community HospitalHematocrit (Bld) [Volume fraction]31 %Low40.7 - 50.3 %[facility] HospitalHemoglobin (Bld) [Mass/Vol]9.5 g/dLLow13.0 - 17.0 g/dLBon [facility] HospitalInterpretation and review of laboratory resultsAbnormalBon [facility] AkronH (RBC) [Entitic mass]28.3 pg25.2 - 33.5 pgBon [facility] AkronHC (RBC) [Mass/Vol]30.6 g/dL 28.4 - 34.8 g/dLBon [facility] - AkronV (RBC) [Entitic vol]92.3 fL82.6 - 102.9 fLNorton Community HospitalNucleated RBC/100 WBC (Bld) [Ratio]0 %0.0 per 100 WBCNorton Community HospitalPlatelet mean volume (Bld) [Entitic vol]9.9 fL8.1 - 13.5 fLBon Secours Mercy HealthPlatelets (Bld) [#/Vol]213 10*3/uLBon [facility]rbana HospitalRBC (Bld) [#/Vol]3.36 10*6/uLLow4.21 - 5.77 m/uLNorton Community HospitalWBC other (Bld) [#/Vol]8Bon [facility] Erythrocyte distribution width (RBC) [Ratio]19.9 %High11.8-14.4[facility] Hospitalcy [facility] Medical CenterComment on above:Performed By: #### GLYHGB, FEBC, JUDD, BMP, CBC #### [employer] [address] [place] [phone] Towel Weaver: Joey Tuttle MDHematocrit (Bld) [Volume fraction]31.0 %Low 40.7-50.3[facility] Medical CenterComment on above:Performed By: #### GLYHGB, FEBC, JUDD, BMP, CBC #### [employer] [address] [place] [address] Towel Weaver: Joey Tuttle MDHemoglobin (Bld) [Mass/Vol]9.5 g/dLLow13.0-17.0 [facility] Memorial HospitalComment on above:Performed By: #### GLYHGB, FEBC, JUDD, BMP, CBC #### [employer] [address] [place] [address] [phone] Towel Weaver: CLEMENTE Cunningham (RBC) [Entitic mass]28.3 woEymarp05.2-33.5 [facility] HospitalComment on above:Performed By: #### GLYHGB, FEBC, JUDD, BMP, CBC #### [employer] [address] [place] [address] [phone] Towel Weaver: CLEMENTE CunninghamC (RBC) [Mass/Vol]30.6 g/eCTsuvzc70.4-34.8 [facility] HospitalComment on above:Performed By: #### GLYHGB, FEBC, JUDD, BMP, CBC #### [facility] [address] [place] [address] Towel Weaver: JAMEY Cunningham (RBC) [Entitic vol]92.3 rWSwnulx20.6-102.9 [facility] HospitalComment on above:Performed By: #### GLYHGB, FEBC, JUDD, BMP, CBC #### [facility] [address] [place] [address] Towel Weaver: LINO Cunningham Automated0.0 per 100 WBCNormal0.0[facility]-Hy[facility] Memorial HospitalComment on above:Performed By: #### GLYHGB, FEBC, JUDD, BMP, CBC #### [facility] [address] [place] [address] Towel Weaver: Baldev Cunningham mean volume (Bld) [Entitic vol]9.9 fL Normal8.1-13.5[facility]-Hy[facility] Memorial HospitalComment on above:Performed By: #### GLYHGB, FEBC, JUDD, BMP, CBC #### [facility] [address] [place] [address] Towel Weaver: Seble Cunningham (Bld) [#/Vol]213 10*3/vSXprkli255-855 [facility] HospitalComment on above:Performed By: #### GLYHGB, FEBC, JUDD, BMP, CBC #### [facility] [employer] [address] [place] [address] Towel Weaver: JACKIE CunninghamBC (Bld) [#/Vol]3.36 10*6/uLLow4.21-5.77[facility] HospitalComment on above:Performed By: #### GLYHGB, FEBC, JUDD, BMP, CBC #### [facility] [employer] [address] [place] [address] Towel Weaver: Joey Madoff, MDWBC (Bld) [#/Vol]8.0 10*3/uLNormal3.5-11.3[facility] Medical CenterComment on above:Performed By: #### BELKIS FEBC, JUDD, BMP, CBC #### [employer] [address] [place] [address] [phone] Towel Weaver: Joey Tuttle MDGlucose,Whole Bloodon 49-84-2334Vlsulas [Mass/Vol]303 mg/uTQoox39-297SzixxTrihealth Mccullough-Hyde Memorial HospitalGlucose [Mass/Vol] 310 mg/jITydr44-801NeiyoTrihealth Mccullough-Hyde Memorial HospitalGlucose [Mass/Vol]318 mg/dL Nkhf52-841KqeuaTrihealth Mccullough-Hyde Memorial HospitalGlucose [Mass/Vol]305 mg/kKOvzg88-542 [facility] Memorial HospitalGlucose [Mass/Vol]267 mg/rGIltq09-055QuadzTrihealth Mccullough-Hyde Memorial HospitalHemoglobin A1Con 78-54-3296Ufgaknn [Mass/Vol]214 mg/dL [facility] HospitalComment on above:Result Comment: The ADA and AACC recommend providing the estimated average glucose result to permit better patient understanding of their HBA1c result.Performed By: #### STEPHANIE TAMAYO, JUDD, BMP, CBC #### [employer] [address] [place] [address] [phone] Towel Weaver: Joey Tuttle MDHbA1c (Bld) [Mass fraction]9.1 %High4.0-6.0[facility] Memorial HospitalComment on above:Performed By: #### BELKIS FEBC, JUDD, BMP, CBC #### [employer] [address] [place] [address] [phone] Towel Weaver: Joey Tuttle MDHemoglobin A1con 67-98-0636Keudzbi glucose Estimated from glycated hemoglobin (Bld) [Mass/Vol]214 mg/dLBon [facility] HospitalComment on above:The ADA and AACC recommend providing the estimated average glucose result to permit better patient understanding of their HBA1c result. HbA1c (Bld) [Mass fraction]9.1 %High4.0 - 6.0 %Bon [facility] Interpretation and review of laboratory resultsAbnormalBon [facility] OhioIron Binding Cap.on 02-11-2025% Fe Rswsmvqhqt78 %Normal 20-55[facility] Memorial HospitalComment on above:Performed By: #### GLYHGB, FEBC, JUDD, BMP, CBC #### [employer] [address] [place] [address] Towel Weaver: Richard Cunninghamtal Fe Binding Ikf956 ug/qJCcd735-902NaoxoTrihealth Mccullough-Hyde Memorial HospitalComment on above:Performed By: #### GLYHGB, FEBC, JUDD, BMP, CBC #### [facility] [address] [place] [address] Towel Weaver: Sruthi Cunningham [Mass/Vol]47 ug/qAYqz29-265ZttmkTrihealth Mccullough-Hyde Memorial HospitalComment on above:Performed By: #### GLYHGB, FEBC, JUDD, BMP, CBC #### [facility] [address] [place] [address] [phone] Towel Weaver: Joey Tuttle MDUnbound Fe Bind Jzi842 ug/iFLpnlst264-104VairoTrihealth Mccullough-Hyde Memorial HospitalComment on above:Performed By: #### GLYHGB, FEBC, JUDD, BMP, CBC #### [facility] [address] [place] [address] Towel Weaver: Sruthi Cunningham and TIBCon 39-42-4913Tpgxwtfrhnzqtb and review of laboratory resultsAbnormalBon Secours [facility] Center OhioIron [Mass/Vol]47 ug/dLLow61 - 157 ug/dLBon SecCleveland Clinic Euclid HospitalIron binding capacity [Mass/Vol] 210 ug/mPVot238 - 450 ug/dLBon SecCleveland Clinic Euclid HospitalIron saturation [Mass fraction]22 %20 - 55 %Bon [facility] HospitalUIBC163 ug/dL112 - 347 ug/dLBon SecRogers Memorial Hospital - MilwaukeeNo Panel Informationon 02-11-2025 Interpretation and review of laboratory resultsAbnormSovah Health - DanvillePO Glucose Fingerstickon 96-89-2511Kkhmwph [Mass/Vol] 303 mg/qWSnuz03 - 110 mg/dLBon [facility] HospitalInterpretation and review of laboratory resultsAbnormSentara Norfolk General Hospital Glucose [Mass/Vol]310 mg/nOTlqw61 - 110 mg/dLBon [facility] Interpretation and review of laboratory resultsAbnormSovah Health - DanvilleGlucose [Mass/Vol]318 mg/dQDihe95 - 110 mg/dLBon [facility] HospitalInterpretation and review of laboratory resultsAbnormSentara Norfolk General HospitalGlucose [Mass/Vol]305 mg/vARhgl48 - 110 mg/dLBon [facility] HospitalInterpretation and review of laboratory results AbnormalBon [facility] CenterGlucose [Mass/Vol]267 mg/dLUuoc39 - 110 mg/dLBon [facility] HospitalInterpretation and review of laboratory resultsAbnormSentara Norfolk General Hospital Phosphoruson 80-15-2110Cvyhvhtyk [Mass/Vol]5.8 mg/dLHigh2.5 - 4.5 mg/dLBon [facility] HospitalPhosphorus, Inorg.on 06-45-2306Pfdwhjzebz, Inorg.5.8 mg/dL High2.5-4.5[facility] Hospitalcy [facility] Adventist Medical CenterComment on above:Performed By: #### GLYHGB, FEBC, JUDD, BMP, CBC #### [facility] [address] [place] [address] Towel Weaver: Justin Cunningham 08-47-2227eLQD Coag (Bld) [Time]62.3 s [facility] County Community HospitalComment on above: IV Heparin Therapy Range: 66.0-92.0 sec Interpretation and review of laboratory resultsAbnoCoteau des Prairies HospitalaPTT Coag (Bld) [Time]62.3 sHigh23.0-36.5Trihealth Mccullough-Hyde Memorial HospitalComment on above:Result Comment: IV Heparin Therapy Range: 66.0-92.0 secPerformed By: #### PTT ####[facility] [place] [address] Lab Director: Joey Tuttle MDaPTT Coag (Bld) [Time]40.2 sHighBon [facility] HospitalComformerly [facility] on above: IV Heparin Therapy Range: 66.0-92.0 sec Interpretation and review of laboratory resultsAbnormalBon [facility] Bon [facility] HospitalaPTT Coag (Bld) [Time]40.2 sHigh23.0-36.5Tri[facility] Mccullough-Hyde Memorial HospitalComment on above:Result Comment: IV Heparin Therapy Range: 66.0-92.0 secPerformed By: #### GLYHGB, FEBC, JUDD, BMP, CBC #### [facility] [address] [place] [address] Towel Weaver: Joey Tuttle MDaPTT Coag (Bld) [Time]35.6 sBon [facility] HospitalComformerly [facility] on above: IV Heparin Therapy Range: 66.0-92.0 sec Bon [facility] HospitalaPTT Coag (Bld) [Time]35.6 xIkutgs32.0-36.5Tri[facility] Mccullough-Hyde Memorial HospitalComment on above:Result Comment: IV Heparin Therapy Range: 66.0-92.0 secPerformed By: #### GS #### [facility] [address] [place] [address] Towel Weaver: Joey Tuttle MDBasic Metab w/rfx MGon 68-92-3503Zfjps gap [Moles/Vol]17 mmol/LHigh9-16Tri[facility] Mccullough-Hyde Memorial HospitalComment on above: Performed By: #### GS #### [employer] [address] [place] [address] Towel Weaver: SHAMAR Cunninghamalcium [Mass/Vol]9.0 mg/dLNormal8.6-10.4Tri[facility] Mccullough-Hyde Memorial HospitalComment on above:Performed By: #### GS #### [facility] [address] [place] [address] Towel Weaver: SHAMAR Cunninghamhloride [Moles/Vol]98 mmol/WEscnkm70-286QmdbaTrihealth Mccullough-Hyde Memorial HospitalComment on above:Performed By: #### GS #### [facility] [employer] [address] [place] [address] Towel Weaver: Joey Tuttle MDCO2 [Moles/Vol]19 mmol/XNdu43-14UffhqTrihealth Mccullough-Hyde Memorial HospitalComment on above:Performed By: #### GS #### [facility] [employer] [address] [place] [address] Towel Weaver: SHAMAR Cunninghamreatinine [Mass/Vol]6.3 mg/dLCritically high 0.7-1.2MSan Luis Obispo General HospitalComment on above:Result Comment: Previous Alert Value ReportedPerformed By: #### GS #### [place] [address] Towel Weaver: Joey Tuttle MDGFR/1.73 sq M.predicted among non-blacks MDRD (S/P/Bld) [Vol rate/Area]10 mL/min/{1.73_m2}Low>60Tri[facility] Mccullough-Hyde Memorial HospitalComment on above:Result Comment: These results are not intended for use in patients <18 years of age. eGFR results are calculated without a race factor using the 2020 CKD-EPI equation. Careful clinical correlation is recommended, particularly when comparing to results calculated using previous equations. The CKD-EPI equation is less accurate in patients with extremes of muscle mass, extra-renal metabolism of creatine, excessive creatine ingestion, or following therapy that affects renal tubular secretion.Performed By: #### GS #### [facility] [address] [address] Towel Weaver: Joey Tuttle MDGlucose [Mass/Vol]258 mg/nNXiit11-87Cyefq [facility]ist Medical CenterComment on above:Performed By: #### GS #### [facility] [address] [place] [address] Towel Weaver: LEYDA Cunninghamotassium [Moles/Vol]4.3 mmol/LNormal3.7-5.3 [facility] M[facility]ull[facility]-Hyde Memorial HospitalComment on above:Performed By: #### GS #### [facility] [address] [place] [address] Towel Weaver: Joey Tuttle MDSodium [Moles/Vol]134 mmol/UExo834-197MgjykTrihealth Mccullough-Hyde Memorial HospitalComment on above:Performed By: #### GS #### [facility] [place] [address] Towel Weaver: Joey Tuttle MDUrea nitrogen [Mass/Vol]56 mg/dLHigh6-20Tri[facility] Mccull[facility]-Hyde Memorial HospitalComment on above:Performed By: #### GS #### [facility] [address] [place] [address] Towel Weaver: Joey Tuttle MDBamiddlesboro arh hospital Metabolic Panel w/ Reflex to MGon 36-26-0436Aqjru gap [Moles/Vol]17 mmol/LHigh9 - 16 mmol/LBon Secbayhealth hospital, [facility] [email or web address] HealthCalcium [Mass/Vol]9 mg/dL8.6 - 10.4 mg/dLBon Secours [employer] HealthChloride [Moles/Vol]98 mmol/L98 - 107 mmol/LBon Secours [email or web address].com HealthCO2 [Moles/Vol]19 mmol/LLow20 - 31 mmol/LBon Secours [email or web address] HealthCreatinine [Mass/Vol]6.3 mg/dL Critically high0.7 - 1.2 mg/dLBon Secours Tumotorizado.comy HealthComment on above:Previous Alert Value ReportedMalka Rojas Filt Tptc29Ivf- PINFBon [facility] Comment on above: These results are not intended for use in patients <18 years of age. eGFR results are calculated without a race factor using the 2020 CKD-EPI equation. Careful clinical correlation is recommended, particularly when comparing to results calculated using previous equations. The CKD-EPI equation is less accurate in patients with extremes of muscle mass, extra-renal metabolism of creatine, excessive creatine ingestion, or following therapy that affects renal tubular secretion. Glucose [Mass/Vol]258 mg/cBKtsj76 - 99 mg/dLBon [facility] HospitalPotassium [Moles/Vol]4.3 mmol/L3.7 - 5.3 mmol/LBon [facility] HospitalSodium [Moles/Vol] 134 mmol/IBss614 - 145 mmol/LBon [facility] HospitalUrea nitrogen [Mass/Vol]56 mg/dLHigh6 - 20 mg/dLBon [facility] HospitalCBCon 37-60-6817Vwdpytizaje distribution width (RBC) [Ratio]20 %High11.8 - 14.4 %[facility] Hematocrit (Bld) [Volume fraction]31.9 %Low40.7 - 50.3 %[facility] Hemoglobin (Bld) [Mass/Vol]9.8 g/dLLow13.0 - 17.0 g/dLBon [facility] Interpretation and review of laboratory resultsAbnormalN[facility] Community Hospital MCH (RBC) [Entitic mass]28.3 pg25.2 - 33.5 pgNorton Community HospitalMCHC (RBC) [Mass/Vol]30.7 g/dL28.4 - 34.8 g/dLBon [facility] HospitalMCV (RBC) [Entitic vol]92.2 fL82.6 - 102.9 fLNorton Community HospitalNucleated RBC/100 WBC (Bld) [Ratio]0 %0.0 per 100 WBCNorton Community HospitalPlatelet mean volume (Bld) [Entitic vol]9.6 fL8.1 - 13.5 fLNorton Community HospitalPlatelets (Bld) [#/Vol] 212 10*3/uLBon [facility] HospitalRBC (Bld) [#/Vol]3.46 10*6/uLLow4.21 - 5.77 m/uLNorton Community HospitalWBC other (Bld) [#/Vol]8.3Bon [facility]'S HospitalErythrocyte distribution width (RBC) [Ratio]20.0 %High 11.8-14.4Tri[facility] Mccullough-Hyde Memorial HospitalComment on above:Performed By: #### GS #### [address] [address] Towel Weaver: Joey Tuttle MDHematocrit (Bld) [Volume fraction]31.9 %Low 40.7-50.3MSan Luis Obispo General HospitalComment on above:Performed By: #### GS #### [address] [address] Towel Weaver: Joey Tuttle MDHemoglobin (Bld) [Mass/Vol]9.8 g/dLLow13.0-17.0 [facility] HospitalComment on above:Performed By: #### GS #### [address] [address] Towel Weaver: ALIYAH CunninghamCH (RBC) [Entitic mass]28.3 kxPzfypg70.2-33.5 [facility] HospitalComment on above:Performed By: #### GS #### [address] [address] Towel Weaver: ALIYAH CunninghamCHC (RBC) [Mass/Vol]30.7 g/dSIqispw99.4-34.8 [facility] HospitalComment on above:Performed By: #### GS #### [address] [address] Towel Weaver: ALIYAH CunninghamCV (RBC) [Entitic vol]92.2 uAPwskwt63.6-102.9 [facility] Memorial HospitalComment on above:Performed By: #### GS #### [address] [address] Towel Weaver: Joey Tuttle MDNRBC Automated0.0 per 100 WBCNormal0.0Tri[facility] M[facility]-Hyde Memorial HospitalComment on above:Performed By: #### GS #### [facility] [address] [place] [address] Towel Weaver: Austen Cunninghamtepayton mean volume (Bld) [Entitic vol]9.6 fL Normal8.1-13.5Tri[facility] M[facility]-Hy[facility] Memorial HospitalComment on above:Performed By: #### GS #### [facility] [address] [place] [address] Towel Weaver: Austen Cunninghamteboaz (Bld) [#/Vol]212 10*3/xTEgownz314-100 [facility] HospitalComment on above:Performed By: #### GS #### [facility] [employer] [address] [place] [address] Towel Weaver: JACKIE CunninghamBC (Bld) [#/Vol]3.46 10*6/uLLow4.21-5.77Tri[facility] Memorial HospitalComment on above:Performed By: #### GS #### [address] [address] Towel Weaver: Joey Tuttle MDWBC (Bld) [#/Vol]8.3 10*3/uLNormal3.5-11.3MSan Luis Obispo General HospitalComment on above:Performed By: #### GS #### [facility] [employer] [address] [place] [address] Towel Weaver: Joey Tuttle MDGlucose,Whole Bloodon 19-35-0248Hefxcxv [Mass/Vol]231 mg/fYVvkd89-473YqeyoTrihealth Mccullough-Hyde Memorial HospitalGlucose [Mass/Vol] 193 mg/mKSwuj49-580AgtwdTrihealth Mccullough-Hyde Memorial HospitalGlucose [Mass/Vol]189 mg/dL Bzeq80-189UmzroTrihealth Mccullough-Hyde Memorial HospitalGlucose [Mass/Vol]308 mg/vFBbsl25-176 [facility] Memorial HospitalGlucose [Mass/Vol]232 mg/sTUcnj09-626EvhnxEden Medical CenterLipid Panelon 69-41-3110Yqechenwqyf [Mass/Vol]96 mg/dL0 - 199 mg/dLBon [facility] HospitalComment on above: Cholesterol Guidelines: <200 Desirable 200-240 Borderline >240 Undesirable Cholesterol in HDL [Mass/Vol]35 mg/dLLow40 - PINF mg/dLBon [facility] [employer] Comment on above: HDL Guidelines: <40 Undesirable 40-59 Borderline >59 Desirable Cholesterol in LDL [Mass/Vol]45 mg/dL0 - 100 mg/dLBon [facility] [email or web address] Comment on above: LDL Guidelines: <100 Desirable 100-129 Near to/above Desirable 130-159 Borderline >159 Undesirable Direct (measured) LDL and calculated LDL are not interchangeable tests. Cholesterol in VLDL [Mass/Vol]16 mg/dL1 - 30 mg/dLBon [facility] [employer] Cholesterol.total/Cholesterol in HDL [Mass ratio]2.7 {ratio}Bon [facility] HospitalTriglyceride [Mass/Vol]80 mg/dLNINF - 150 mg/dLBon [facility] [employer] Comment on above: Triglyceride Guidelines: <150 Desirable 150-199 Borderline 200-499 High >499 Very high Based on AHA Guidelines for fasting triglyceride, August 2012. Lipid Profileon 54-60-3339Clwqxiidovj [Mass/Vol]96 mg/dLNormal0-199Tri[facility] M[facility]-Hyde Memorial HospitalComment on above:Result Comment: Cholesterol Guidelines: <200 Desirable 200-240 Borderline >240 UndesirablePerformed By: #### GLYHGB, FEBC, JUDD, BMP, CBC #### [employer] [address] [place] [address] [phone] Towel Weaver: SHAMAR Cunninghamholesterol in HDL [Mass/Vol]35 mg/dLLow>40Tri[facility] M[facility]-Hy[facility] Memorial HospitalComment on above:Result Comment: HDL Guidelines: <40 Undesirable 40-59 Borderline >59 DesirablePerformed By: #### GLYHGB, FEBC, JUDD, BMP, CBC #### [employer] [address] [place] [address] [phone] Towel Weaver: SHAMAR Cunninghamholesterol in LDL [Mass/Vol]45 mg/dLNormal0-100 [facility] Memorial HospitalComment on above:Result Comment: LDL Guidelines: <100 Desirable 100-129 Near to/above Desirable 130-159 Borderline >159 Undesirable Direct (measured) LDL and calculated LDL are not interchangeable tests.Performed By: #### GLYHGB, FEBC, JUDD, BMP, CBC #### [employer] [address] [place] [address] [phone] Towel Weaver: SHAMAR Cunninghamholesterol in VLDL [Mass/Vol]16 mg/dLNormal1-30 [facility] Memorial HospitalComment on above:Performed By: #### GLYHGB, FEBC, JUDD, BMP, CBC #### [employer] [address] [place] [address] Towel Weaver: SHAMAR Cunninghamholesteromargaret.total/Cholesterol in HDL [Mass ratio]2.7 {ratio}NormalTrihealth Mccullough-Hyde Memorial HospitalComment on above: Performed By: #### GLYHGB, FEBC, JUDD, BMP, CBC #### [employer] [address] [place] [address] Towel Weaver: Joey Tuttle MDTriglyceride [Mass/Vol]80 mg/dLNormal<150Tri[facility] M[facility]-Hyde Memorial HospitalComment on above:Result Comment: Triglyceride Guidelines: <150 Desirable 150-199 Borderline 200-499 High >499 Very high Based on AHA Guidelines for fasting triglyceride, August 2012.Performed By: #### GLYHGB, FEBC, JUDD, BMP, CBC #### [employer] [address] [place] [address] Towel Weaver: Martin Cunninghamgnesiumon 36-45-2834Zvylxhyfq [Mass/Vol]2.5 mg/dL1.6 - 2.6 mg/dLBon [facility] HospitalMagnesium [Mass/Vol]2.5 mg/dLNormal 1.6-2.6[facility] Medical CenterComment on above:Performed By: #### GLYHGB, FEBC, JUDD, BMP, CBC #### [facility] [address] [place] [address] Towel Weaver: Joey Tuttle MDNo Panel Informationon 19-35-4945Yhheczyxhcjvxo and review of laboratory resultsAbnoCuster Regional Hospital Glucose Fingerstickon 37-01-5634Edyorut [Mass/Vol]231 mg/dLHigh 75 - 110 mg/dLBon [facility] HospitalInterpretation and review of laboratory resultsAbnormalCarilion Stonewall Jackson HospitalGlucose [Mass/Vol]193 mg/jPEjdl79 - 110 mg/dLBon [facility] HospitalInterpretation and review of laboratory resultsAbnormalCarilion Stonewall Jackson HospitalGlucose [Mass/Vol]189 mg/bBRirn68 - 110 mg/dLBon [facility] Interpretation and review of laboratory resultsAbnormalBon Secours Health SystemGlucose [Mass/Vol]308 mg/aNXzks36 - 110 mg/dLBon [facility] HospitalInterpretation and review of laboratory resultsAbnormalCarilion Stonewall Jackson HospitalGlucose [Mass/Vol]232 mg/zTBwgc10 - 110 mg/dLBon [facility] HospitalInterpretation and review of laboratory results AbnormalBon [facility] CenterXR CHEST (SINGLE VIEW FRONTAL)on 67-85-7867AB CHEST (SINGLE VIEW FRONTAL)EXAMINATION: ONE XRAY VIEW OF THE CHEST 02/10/2025 7:11 am COMPARISON: 29 July 2024 HISTORY: ORDERING SYSTEM PROVIDED HISTORY: PVC TECHNOLOGIST PROVIDED HISTORY: PVC FINDINGS: AP portable view of the chest time stamped at 719 hours demonstrates overlying monitoring electrodes, mild cardiomegaly and mild vascular congestion. Prior right-sided double lumen catheter is not demonstrated. No extrapleural air or effusions. No localized consolidation. IMPRESSION: Mild cardiomegaly and mild vascular congestion. Interpreted by: Karin Coronado MD Signed by: Karin Coronado MD 02/10/25 Final resultNormalMerEden Medical CenterMild cardiomegaly and mild vascular congestion. PN RIS CONSOLIDATEDEXAMINATION: ONE XRAY VIEW OF THE CHEST 02/10/2025 7:11 am COMPARISON: 29 July 2024 HISTORY: ORDERING SYSTEM PROVIDED HISTORY: PVC TECHNOLOGIST PROVIDED HISTORY: PVC FINDINGS: AP portable view of the chest time stamped at 719 hours demonstrates overlying monitoring electrodes, mild cardiomegaly and mild vascular congestion. Prior right-sided double lumen catheter is not demonstrated. No extrapleural air or effusions. No localized consolidation. MHPN Karin Haley MD - 02/10/2025 EXAMINATION: ONE XRAY VIEW OF THE CHEST 02/10/2025 7:11 am COMPARISON: 29 July 2024 HISTORY: ORDERING SYSTEM PROVIDED HISTORY: PVC TECHNOLOGIST PROVIDED HISTORY: PVC FINDINGS: AP portable view of the chest time stamped at 719 hours demonstrates overlying monitoring electrodes, mild cardiomegaly and mild vascular congestion. Prior right-sided double lumen catheter is not demonstrated. No extrapleural air or effusions. No localized consolidation. IMPRESSION: Mild cardiomegaly and mild vascular congestion. Critical Access HospitalNexaweb TechnologiesInova Health SystemRadiology Study observation (narrative)B[employer] ShoutitoutXR CHEST (SINGLE VIEW FRONTAL)Ordered By: Karin Coronado on 79-78-8924Sld [facility] [employer] Work Phone: APTTon 42-14-9366cQOU Coag (Bld) [Time]50 sHighBon [facility] HospitalComment on above: IV Heparin Therapy Range: 66.0-92.0 sec aPTT Coag (Bld) [Time]50.0 sHigh23.0-36.5Tri[facility] M[facility]-Hyde Memorial HospitalComment on above:Result Comment: IV Heparin Therapy Range: 66.0-92.0 secPerformed By: #### GS #### [employer] [address] [place], [place] [phone] Towel Weaver: Seth Cunninghami-Xa, Unfractionated Heparinon 02-09-2025 Anti-XA Unfrac Heparin>2.00IU/LBon [facility] CenterNetmagic Solutions [facility] Center OhioComment on above: This test has not been validated or calibrated for therapies other than unfractionated heparin. Interpretation of the result in relation to other therapies must be done with caution and within clinical context. CBCon 81-66-2863Oujybrvcrfn distribution width (RBC) [Ratio]20.2 %High11.8 - 14.4 %[facility] HospitalHematocrit (Bld) [Volume fraction]33 %Low40.7 - 50.3 %[facility] HospitalHemoglobin (Bld) [Mass/Vol]10.2 g/dLLow13.0 - 17.0 g/dLBon [facility] HospitalInterpretation and review of laboratory results AbnormalBon [facility] AkronH (RBC) [Entitic mass]28.4 pg25.2 - 33.5 pgSentara Obici HospitalHC (RBC) [Mass/Vol]30.9 g/dL28.4 - 34.8 g/dLBon [facility] Hospital - AkronV (RBC) [Entitic vol]91.9 fL82.6 - 102.9 fLNorton Community HospitalNucleated RBC/100 WBC (Bld) [Ratio]0 %0.0 per 100 WBCBon [facility] HospitalPlatelet mean volume (Bld) [Entitic vol]9.7 fL8.1 - 13.5 fLChesapeake Regional Medical Center HealthPlatelets (Bld) [#/Vol]236 10*3/uLBon [facility] HospitalRBC (Bld) [#/Vol]3.59 10*6/uLLow4.21 - 5.77 m/uLNorton Community HospitalWBC other (Bld) [#/Vol]9Bon [facility] Medical CenterErythrocyte distribution width (RBC) [Ratio]20.2 %High11.8-14.4[facility] Medical CenterComment on above:Performed By: #### GS #### [employer] [address] [place] [address] Towel Weaver: Joey Tuttle MDHematocrit (Bld) [Volume fraction]33.0 %Low 40.7-50.3[facility] Medical CenterComment on above:Performed By: #### GS #### [facility] [address] [place] [address] Towel Weaver: Joey Tuttle MDHemoglobin (Bld) [Mass/Vol]10.2 g/dLLow13.0-17.0 [facility] HospitalComment on above:Performed By: #### GS #### [address] [address] Towel Weaver: ALIYAH CunninghamCH (RBC) [Entitic mass]28.4 xrQclveg46.2-33.5 [facility] HospitalComment on above:Performed By: #### GS #### [address] [address] Towel Weaver: ALIYAH CunninghamCHC (RBC) [Mass/Vol]30.9 g/tFZbauyb58.4-34.8 [facility] HospitalComment on above:Performed By: #### GS #### [place] [address] Towel Weaver: ALIYAH CunninghamCV (RBC) [Entitic vol]91.9 yQOoapxk96.6-102.9 [facility] HospitalComment on above:Performed By: #### GS #### [address] [address] Towel Weaver: Joey Tuttle MDNRBC Automated0.0 per 100 WBCNormal0.0Tri[facility]-Hy[facility] Memorial HospitalComment on above:Performed By: #### GS #### [address] [address] Towel Weaver: Austen Cunninghamtelet mean volume (Bld) [Entitic vol]9.7 fL Normal8.1-13.5[facility]-Hy[facility] Memorial HospitalComment on above:Performed By: #### GS #### [address] [address] Towel Weaver: LEYDA Cunninghamlatelets (Bld) [#/Vol]236 10*3/uFEoivys690-048 [facility] HospitalComment on above:Performed By: #### GS #### [facility] [place] [address] Towel Weaver: Joey Tuttle MDRBC (Bld) [#/Vol]3.59 10*6/uLLow4.21-5.77[facility] Medical CenterComment on above:Performed By: #### GS #### [facility] [address] [place] [address] Towel Weaver: Joey Tuttle MDWBC (Bld) [#/Vol]9.0 10*3/uLNormal3.5-11.3[facility] Medical CenterComment on above:Performed By: #### GS #### [address] [address] Towel Weaver: SHAMAR Cunninghamreatinineon 88-43-9526Bjtalsuyvs [Mass/Vol]6.3 mg/dLCritically high0.7 - 1.2 mg/dLBon [facility] HospitalEst, Glom Filt Rate10 Low- PINFBon [facility] HospitalComment on above: These results are not intended for use in patients <18 years of age. eGFR results are calculated without a race factor using the 2020 CKD-EPI equation. Careful clinical correlation is recommended, particularly when comparing to results calculated using previous equations. The CKD-EPI equation is less accurate in patients with extremes of muscle mass, extra-renal metabolism of creatine, excessive creatine ingestion, or following therapy that affects renal tubular secretion. Creatinine w/GFRon 92-53-2983Ruugdtxbfi [Mass/Vol]6.3 mg/dLCritically high 0.7-1.2[facility] Medical CenterComment on above:Performed By: #### ALMA ROSENG ####[address] [address] Lab Director: Joey Tuttle MDGFR/1.73 sq M.predicted among non-blacks MDRD (S/P/Bld) [Vol rate/Area]10 mL/min/{1.73_m2}Low>60[facility] HospitalComment on above:Result Comment: These results are not intended for use in patients <18 years of age. eGFR results are calculated without a race factor using the 2020 CKD-EPI equation. Careful clinical correlation is recommended, particularly when comparing to results calculated using previous equations. The CKD-EPI equation is less accurate in patients with extremes of muscle mass, extra-renal metabolism of creatine, excessive creatine ingestion, or following therapy that affects renal tubular secretion.Performed By: #### TROPI, CREG ####[facility] [place], [place] [id number] Lab Director: Joey Tuttle MDGlucose,Whole Bloodon 74-46-2158Ajkhdvs [Mass/Vol]285 mg/dL Mzkr66-041TilrzTrihealth Mccullough-Hyde Memorial HospitalGlucose [Mass/Vol]222 mg/lSRkqu43-262 [facility] HospitalHeparin Anti-Xaon 23-97-2119Rezvpir Anti-Xa>2.00 NormalTrihealth Mccullough-Hyde Memorial HospitalComment on above:Result Comment: This test has not been validated or calibrated for therapies other than unfractionated heparin. Interpretation of the result in relation to other therapies must be done with caution and within clinical context.Performed By: #### GS #### [facility] [address] [place], [place] [id number] Towel Weaver: Joey Tuttle MDNo Panel Informationon 38-89-2716Sbaxbyufbwarbd and review of laboratory resultsAbnormalSentara Princess Anne HospitalKiddie KistInterpretation and review of laboratory resultsAbnormalCarilion Stonewall Jackson HospitalPOC Glucose Fingerstickon 59-38-2279Aztiqjw [Mass/Vol]285 mg/vZDhje09 - 110 mg/dLBon [facility] MedNewsInterpretation and review of laboratory resultsAbnormalCarilion Stonewall Jackson HospitalGlucose [Mass/Vol]222 mg/iABlvj77 - 110 mg/dLBon [facility] MedNews Interpretation and review of laboratory resultsAbnoCoteau des Prairies HospitalPTon [id number] Coag (PPP) [Relative time]1.3 {INR} NormalTrihealth Mccullough-Hyde Memorial HospitalComformerly [facility] on above:Result Comment: Therapeutic Range: Moderate Anticoagulant Intensity: INR = 2.0-3.0 High Anticoagulant Intensity: INR = 2.5-3.5Performed By: #### GS #### [facility] [address] [place], [place] [id number] Towel Weaver: LEYDA CunninghamT Coag (PPP) [Time]16.1 sHigh11.7-14.9Tri[facility] Mccullough-Hyde Memorial HospitalComment on above:Performed By: #### GS #### [facility], [place] 89[address] Towel Weaver: Casey Cunninghamime-INRon 39-92-2008SXZ Coag (PPP) [Relative time]1.3 {INR}[facility] HospitalComment on above: Therapeutic Range: Moderate Anticoagulant Intensity: INR = 2.0-3.0 High Anticoagulant Intensity: INR = 2.5-3.5 PT Coag (PPP) [Time]16.1 sHighBon Cleveland Clinicoponinon 02-09-2025 Interpretation and review of laboratory resultsAbClinch Valley Medical Center Troponin I.cardiac High sensitivity method [Mass/Vol]2122 ng/LCritically high0 - 22 ng/LBon [facility] HospitalComformerly [facility] on above:High Sensitivity Troponin values cannot be compared with other Troponin methodologies. Previous Alert Value Reported [facility] HospitalTroponin, High Lcqo2510 ng/LCritically high0-22[facility] HospitalComformerly [facility] on above:Result Comment: High Sensitivity Troponin values cannot be compared with other Troponin methodologies. Previous Alert Value ReportedPerformed By: #### TROPI ####[facility] HospitalFuj[facility] Sunner DevelopmentYluwukudqdmv[address] [place], [place] [address] Lab Director: Francesco Cunningham I.cardiac High sensitivity method [Mass/Vol]1968 ng/LCritically high0 - 22 ng/L [facility] HospitalComformerly [facility] on above:High Sensitivity Troponin values cannot be compared with other Troponin methodologies.Troponin, High Ejcu0506 ng/L Critically high0-22[facility] M[facility] Memorial HospitalComformerly [facility] on above:Result Comment: High Sensitivity Troponin values cannot be compared with other Troponin methodologies.Performed By: #### TROPI, CREG ####[facility] [place], [place] 3[address] Lab Director: Zeus Cunningham 10-36-7328Eyrfzfexbrdu A527 ng/mLMan [facility]0-187[facility] on above:Result Comment: (NOTE) INTERPRETIVE INFORMATION: Chromogranin A, Serum This test is performed using the VaporeS CGA II Kryptor kit. Results obtained with different methods or kits cannot be used interchangeably. Results cannot be interpreted as absolute evidence of the presence or absence of malignant disease and should be evaluated in combination with clinical symptoms, diagnostic evidence, and/or other laboratory parameters. The change of CgA concentration over time provides diagnostic information whether a tumor progression has occurred. An increase of CgA serum concentrations of more than 50% to a value of greater than 100 ng/ml between consecutive monitoring visits defines a positive test result, representing a higher probability that a tumor progression has occurred. A change of CgA serum concentrations of equal or less than 50% increase between monitoring visits or to a value of 100 ng/ml or less defines a negative test result, representing a lower probability that a tumor progression has occurred. Nontumor related elevations of Chromogranin A can be observed in gastrointestinal, cardiovascular, and renal disorders, cancers other than neuroendocrine tumors, as well as with proton pump inhibitor (PPI) therapy. It is recommended to stop PPI treatment for at least 14 days prior to testing. Performed by [facility], [address] [place] [address] www.[email or web address], Han Carr MD, Lab. Director TYLER Number: [id number] By: #### GLYHGB #### [facility] [address] [place], [place] 28[address] Towel Weaver: Joey Tuttle MD #### TANKGA #### [facility] [address] [place] [address] Towel Weaver: Han Carr MD #### CP, CDP #### [facility] [address] [place], [place] [address] Towel Weaver: Nacho Reaves MDHemoglobin A1Con 94-88-6116Jgylqiy [Mass/Vol]237 mg/dLNormMercer County Community HospitalComformerly [facility] on above:Result Comment: The ADA and AACC recommend providing the estimated average glucose result to permit better patient understanding of their HBA1c result.Performed By: #### GLYHGB #### [facility] [address] [place] [address] Towel Weaver: Joey Tuttle MD #### ACHRGA #### [facility] [address] [place] [address] Towel Weaver: Han Carr MD #### CP, CDP #### [facility] [address] [place], [place] [id number] Towel Weaver: Nacho Reaves MDHbA1c (Bld) [Mass fraction]9.9 %High4.0-6.0Fost[facility] City HospitalComformerly [facility] on above:Performed By: #### GLYHGB #### [facility] [address] [place] [address] Towel Weaver: Joey Tuttle MD #### ACHRGA #### [facility] [address] [place] [address] Towel Weaver: Han Carr MD #### CP, CDP #### [facility] [address] [place], [place] 8[address]35[address] Towel Weaver: SHAMAR MckeonBC with Auto Differentialon 13-35-1629Utvnwjcyn (Bld) [#/Vol]0.02 10*3/uLBon Secours King'[facility]aughters Medical Center OhioBasophils/100 WBC (Bld)0 %0 - 2 %[facility] OhioEosinophils (Bld) [#/Vol]0.36 10*3/uLBon [facility] OhioEosinophils/100 WBC (Bld)5 %0 - 5 %[facility] HospitalErythrocyte distribution width (RBC) [Ratio]17.0 %High12.1 - 15.2 %[facility] Hematocrit (Bld) [Volume fraction]29.6 %Low41.0 - 53.0 %[facility] Hemoglobin (Bld) [Mass/Vol]9.2 g/dLLow13.5 - 17.5 g/dLBon [facility] Immature granulocytes (Bld) [#/Vol]0.02 10*3/uLBon [facility] HospitalImmature granulocytes/100 WBC (Bld)0 %0 - 5 %[facility] HospitalInterpretation and review of laboratory resultsAbnormalNorton Community HospitalLymphocytes/100 WBC (Bld)8 %Low13 - 44 %[facility] HospitalLymphocytes/100 WBC (Bld)0.66 %Low [facility] Obici HospitalH (RBC) [Entitic mass]25.8 pgLow26.0 - 34.0 pgBon [facility] AkronHC (RBC) [Mass/Vol]31.1 g/dL31.0 - 37.0 g/dLBon [facility] - AkronV (RBC) [Entitic vol]82.9 fL80.0 - 100.0 fLNorton Community HospitalMonocytes/100 WBC (Bld)7 %5 - 9 %[facility] HospitalMonocytes/100 WBC (Bld)0.53 %[facility] HospitalNeutrophils/100 WBC (Bld)80 %High39 - 75 %[facility] HospitalPlatelet mean volume (Bld) [Entitic vol]9.0 fL6.0 - 12.0 fL [facility] HospitalPlatelets (Bld) [#/Vol]282 10*3/uLBon [facility] HospitalRBC (Bld) [#/Vol]3.57 10*6/uLLow4.50 - 5.90 m/uLNorton Community Hospital Segmented neutrophils/100 WBC (Bld)6.41 %Bon [facility] other (Bld) [#/Vol]8.0Bon [facility] with Diffon [id number]. Basophil0.02 k/uLNormal0.00-0.20F[facility] City HospitalComment on above:Performed By: #### GLYHGB #### [facility] [address] [place] [address] Towel Weaver: Joey Tuttle MD #### ACHRGA #### [facility] [address] [place] [address] Towel Weaver: Han Carr MD #### CP, CDP #### [facility] [address] [place] [address] Towel Weaver: Fifi Mckeon.Imm.Granulocyte0.02 k/uLNormal0.00-0.30[facility] City HospitalComment on above:Performed By: #### GLYHGB #### [facility] [address] [place] [address] Towel Weaver: Joey Tuttle MD #### ACHRGA #### [facility] [address] [place], [place] [id number] Towel Weaver: Han Carr MD #### CP, CDP #### [facility] [address] [place] [address] Towel Weaver: Fifi Mckeon.Neutrophil (Seg)6.41 k/uLNormal2.1-6.5F[facility] City HospitalComment on above:Performed By: #### GLYHGB #### [address] [address] Towel Weaver: Joey Tuttle MD #### ACHRGA #### [facility] [address] [place] [address] Towel Weaver: Han Carr MD #### CP, CDP #### [facility] [address] [place] [address] Towel Weaver: Nacho Reaves MDBasophils/100 WBC (Bld)0 %Normal0-2Mer[facility]uderdale HospitalComment on above:Performed By: #### GLYHGB #### [facility] [address] [place] [address] Towel Weaver: Joey Tuttle MD #### ACHRGA #### [facility] [address] [place] [address] Towel Weaver: Han Carr MD #### CP, CDP #### [facility] [address] [place] [address] Towel Weaver: Nacho Reaves MDEosinophils (Bld) [#/Vol]0.36 10*3/uLNormal 0.00-0.40MerWestern Reserve Hospital HospitalComment on above:Performed By: #### GLYHGB #### [facility] [address] [place] [address] Towel Weaver: Joey Tuttle MD #### ACHRGA #### [facility] [address] [place], [place] [id number] Towel Weaver: Han Carr MD #### CP, CDP #### [facility] [address] [place] [address] Towel Weaver: Nacho Reaves MDEosinophils/100 WBC (Bld)5 %Normal0-5[facility] City HospitalComment on above:Performed By: #### GLYHGB #### [facility] [address] [place] [address] Towel Weaver: Joey Tuttle MD #### ACHRGA #### [facility] [address] [place], [place] [id number] Towel Weaver: Han Carr MD #### CP, CDP #### [facility] [address] [place], [place] [address] Towel Weaver: Nacho Reaves MDErythrocyte distribution width (RBC) [Ratio]17.0 % High12.1-15.2[facility] County HospitalComment on above:Performed By: #### GLYHGB #### [facility] [address] [place], [place] [id number] Towel Weaver: Joey Tuttle MD #### ACHRGA #### [facility] [address] [place], [place] [id number] Towel Weaver: Han Carr MD #### CP, CDP #### [facility] [address] [place] [address] Towel Weaver: Nacho Reaves MDHematocrit (Bld) [Volume fraction]29.6 %Low 41.0-53.0F[facility] City HospitalComment on above:Performed By: #### GLYHGB #### [facility] [address] [place] [address] Towel Weaver: Joey Tuttle MD #### ACHRGA #### [facility] [address] [place], [place] [id number] Towel Weaver: Han Carr MD #### CP, CDP #### [facility] [address] [place], [place] [address] Towel Weaver: Nacho Reaves MDHemoglobin (Bld) [Mass/Vol]9.2 g/dLLow13.5-17.5 [facility] HospitalComment on above:Performed By: #### GLYHGB #### [address] [address] Towel Weaver: Joey Tuttle MD #### ACHRGA #### [facility] [address] [place], [place] [id number] Towel Weaver: Han Carr MD #### CP, CDP #### [facility] [address] [place] [address] Towel Weaver: Nacho Reaves MDImmature granulocytes/100 WBC (Bld)0 %Normal0-5 [facility] City HospitalComment on above:Performed By: #### GLYHGB #### [facility] [address] [place] [address] Towel Weaver: Joey Tuttle MD #### ACHRGA #### [facility] [address] [place] [address] Towel Weaver: Han Carr MD #### CP, CDP #### [facility] [address] [place] [address] Towel Weaver: Nacho Reaves MDLymphocytes (Bld) [#/Vol]0.66 10*3/uLLow1.00-4.80 [facility] on above:Performed By: #### GLYHGB #### [facility] [address] [place] [address] Towel Weaver: Joey Tuttle MD #### ACHRGA #### [facility] [address] [place], [place] [address] Towel Weaver: Han Carr MD #### CP, CDP #### [facility] [address] [place] [address] Towel Weaver: Nacho Reaves MDLymphocytes/100 WBC (Bld)8 %Gnn23-66XfhdjFostoria City HospitalComformerly [facility] on above:Performed By: #### GLYHGB #### [facility] [address] [place] [address] Towel Weaver: Joey Tuttle MD #### ACHRGA #### [facility] [address] [place] [address] Towel Weaver: Han Carr MD #### CP, CDP #### [facility] [address] [place], [place] [address] Towel Weaver: ALIYAH MckeonCH (RBC) [Entitic mass]25.8 pgLow26.0-34.0[facility] City HospitalComment on above:Performed By: #### GLYHGB #### [facility] [address] [place], [place] 237[address] Towel Weaver: Joey Tuttle MD #### ACHRGA #### [facility] [address] [place], [place] [address] Towel Weaver: Han Carr MD #### CP, CDP #### [facility] [address] [place], [place] [address] Towel Weaver: CLEMENTE MckeonC (RBC) [Mass/Vol]31.1 g/tMFidahx84.0-37.0[facility] City HospitalComment on above:Performed By: #### GLYHGB #### [facility] [address] [place] [address] Towel Weaver: Joey Tuttle MD #### ACHRGA #### [facility] [address] [place], [place] [id number] Towel Weaver: Han Carr MD #### CP, CDP #### [facility] [address] [place], [place] [address] Towel Weaver: JAMEY Mckeon (RBC) [Entitic vol]82.9 rGTdthoc06.0-100.0 [facility] HospitalComment on above:Performed By: #### GLYHGB #### [facility] [address] [place] [address] Towel Weaver: Joey Tuttle MD #### ACHRGA #### [facility] [address] [place], [place] [address] Towel Weaver: Han Carr MD #### CP, CDP #### [facility] [address] [place] [address] Towel Weaver: Nacho Reaves MDMonocytes (Bld) [#/Vol]0.53 10*3/uLNormal0.00-1.00 [facility] HospitalComment on above:Performed By: #### GLYHGB #### [facility] [address] [place] [address] Towel Weaver: Joey Tuttle MD #### ACHRGA #### [facility] [address] [place] [address] Towel Weaver: Han Carr MD #### CP, CDP #### [facility] [address] [place] [address] Towel Weaver: Nacho Reaves MDMonocytes/100 WBC (Bld)7 %Normal5-9[facility] HospitalComment on above:Performed By: #### GLYHGB #### [facility] [address] [place] [address] Towel Weaver: Joey Tuttle MD #### ACHRGA #### [facility] [address] [place] [address] Towel Weaver: Han Carr MD #### CP, CDP #### [facility] [address] [place] [address] Towel Weaver: Nacho Reaves MDNeutrophil (Seg)80 %Vmji25-46OtuffFostoria City HospitalComment on above:Performed By: #### GLYHGB #### [facility] [address] [place] [address] Towel Weaver: Joye Tuttle MD #### ACHRGA #### [facility] [address] [place] [address] Towel Weaver: Han Carr MD #### CP, CDP #### [facility] [address] [place], [place] [address] Towel Weaver: Baldev Mckeon mean volume (Bld) [Entitic vol]9.0 fL Normal6.0-12.0[facility] City HospitalComment on above:Performed By: #### GLYHGB #### [facility] [address] [place] [address] Towel Weaver: Joey Tuttle MD #### ACHRGA #### [facility] [address] [place] [address] Towel Weaver: Han Carr MD #### CP, CDP #### [facility] [address] [place] [address] Towel Weaver: Seble Mckeon (Bld) [#/Vol]282 10*3/mAPovflt418-689 [facility] HospitalComment on above:Performed By: #### GLYHGB #### [facility] [address] [place] [address] Towel Weaver: Joey Tuttle MD #### ACHRGA #### [facility] [address] [place] [address] Towel Weaver: Han Carr MD #### CP, CDP #### [facility] [address] [place] [address] Towel Weaver: RUTH Mckeon (Bld) [#/Vol]3.57 10*6/uLLow4.50-5.90[facility] on above:Performed By: #### GLYHGB #### [facility] [address] [place] [address] Towel Weaver: Joey Tuttle MD #### ACHRGA #### [facility] [address] [place] [address] Towel Weaver: Han Carr MD #### CP, CDP #### [facility] [address] [place], [place] 53624[address] Towel Weaver: Nacho Reaves [facility]DSYDENH[facility] (Bld) [#/Vol]8.0 10*3/uLNormal3.5-11.0[facility] HospitalComment on above:Performed By: #### GLYHGB #### [facility] [address] [place] [address] Towel Weaver: Joey Tuttle MD #### ACHRGA #### [facility] [address] [place], [place] [id number] Towel Weaver: Han Carr MD #### CP, CDP #### [facility] [address] [place], [place] [address]690 Towel Weaver: SHAMAR Mckeonriverton hospital Metabolic Profon 35-51-4894Nipoktu [Mass/Vol] 3.6 g/dLNormal3.5-5.2MMercy Health St. Charles HospitalComment on above:Performed By: #### GLYHGB #### [facility] [address] [place] [address] Towel Weaver: Joey Tuttle MD #### ACHRGA #### [facility] [address] [place], [place] [address] Towel Weaver: Han Carr MD #### CP, CDP #### [facility] [address] [place] [address] Towel Weaver: Willis Mckeon Qhla418 U/CTrsv62-311RtiqcFostoria City HospitalComment on above:Performed By: #### GLYHGB #### [facility] [address] [place] [address] Towel Weaver: Joey Tuttle MD #### ACHRGA #### [facility] [address] [place], [place] [address] Towel Weaver: Han Carr MD #### CP, CDP #### [facility] [address] [place] [address] Towel Weaver: Nacho Reaves MDALT [Catalytic activity/Vol]9 U/LNormal5-41[facility] City HospitalComment on above:Performed By: #### GLYHGB #### [facility] [address] [place] [address] Towel Weaver: Joey Tuttle MD #### ACHRGA #### [facility] [address] [place], [place] [address] Towel Weaver: Han Carr MD #### CP, CDP #### [facility] [address] [place] [address] Towel Weaver: Nacho Reaves MDAnion gap [Moles/Vol]19 mmol/LHigh9-17[facility] HospitalComment on above:Performed By: #### GLYHGB #### [facility] [address] [place] [address] Towel Weaver: Joey Tuttle MD #### ACHRGA #### [facility] [address] [place], [place] [address] Towel Weaver: Han Carr MD #### CP, CDP #### [facility] [address] [place], [place] 36845[address] Towel Weaver: Nacho Reaves MDAST [Catalytic activity/Vol]10 U/LNormal<40F[facility] City HospitalComment on above:Performed By: #### GLYHGB #### [facility] [address] [place] [address] Towel Weaver: Joey Tuttle MD #### ACHRGA #### [facility] [address] [place], [place] [address] Towel Weaver: Han Carr MD #### CP, CDP #### [facility] [address] [place] [address] Towel Weaver: Nacho Reaves MDBilirubin [Mass/Vol]0.3 mg/dLNormal0.3-1.2MMercy Health St. Charles HospitalComment on above:Performed By: #### GLYHGB #### [facility] [address] [place] [address] Towel Weaver: Joey Tuttle MD #### ACHRGA #### [facility] [address] [place], [place] [address] Towel Weaver: Han Carr MD #### CP, CDP #### [facility] [address] [place] [address] Towel Weaver: Nacho Reaves MDBUN/CRE Blggz8Pgx4-14QtyqdFostoria City HospitalComment on above:Performed By: #### GLYHGB #### [facility] [address] [place] [address] Towel Weaver: Joey Tuttle MD #### ACHRGA #### [facility] [address] [place], [place] [address] Towel Weaver: Han Carr MD #### CP, CDP #### [facility] [address] [place] [address] Towel Weaver: SHAMAR Mckeonalcium [Mass/Vol]9.1 mg/dLNormal8.6-10.4[facility] HospitalComment on above:Performed By: #### GLYHGB #### [facility] [address] [place] [address] Towel Weaver: Joey Tuttle MD #### ACHRGA #### [facility] [address] [place], [place] [address] Towel Weaver: Han Carr MD #### CP, CDP #### [facility] [address] [place] [address] Towel Weaver: SHAMAR Mckeonhloride [Moles/Vol]93 mmol/UTwc81-400DgemeFostoria City HospitalComment on above:Performed By: #### GLYHGB #### [facility] [address] [place] [address] Towel Weaver: Joey Tuttle MD #### ACHRGA #### [facility] [address] [place], [place] [address] Towel Weaver: Han Carr MD #### CP, CDP #### [facility] [address] [place], [place] 779[address] Towel Weaver: Nacho Reaves MDCO2 [Moles/Vol]21 mmol/ABccekr47-37NvtvgFostoria City HospitalComment on above:Performed By: #### GLYHGB #### [facility] [address] [place] [address] Towel Weaver: Joey Tuttle MD #### ACHRGA #### [facility] [address] [place], [place] [address] Towel Weaver: Han Carr MD #### CP, CDP #### [facility] [address] [place] [address] Towel Weaver: SHAMAR Mckeonreatinine [Mass/Vol]6.6 mg/dLCritically high 0.7-1.2MMercy Health St. Charles HospitalComment on above:Performed By: #### GLYHGB #### [facility] [address] [place] [address] Towel Weaver: Joey Tuttle MD #### ACHRGA #### [facility] [address] [place], [place] [address] Towel Weaver: Han Carr MD #### CP, CDP #### [facility] [address] [place], [place] 8675190 Towel Weaver: Nacho Reaves MDGFR/1.73 sq M.predicted among non-blacks MDRD (S/P/Bld) [Vol rate/Area]9 mL/min/{1.73_m2}Low>60F[facility] City HospitalComment on above:Result Comment: These results are not intended for use in patients <18 years of age. eGFR results are calculated without a race factor using the 2020 CKD-EPI equation. Careful clinical correlation is recommended, particularly when comparing to results calculated using previous equations. The CKD-EPI equation is less accurate in patients with extremes of muscle mass, extra-renal metabolism of creatine, excessive creatine ingestion, or following therapy that affects renal tubular secretion.Performed By: #### GLYHGB #### [address] [address] Towel Weaver: Joey Tuttle MD #### ACHRGA #### [facility] [address] [place], [place] [address] Towel Weaver: Han Carr MD #### CP, CDP #### [facility] [address] [place], [place] 32287[address] Towel Weaver: Nacho Reaves MDGlucose [Mass/Vol]268 mg/kXQskm84-07GxklnMercy Health St. Charles HospitalComment on above:Performed By: #### GLYHGB #### [address] [address] Towel Weaver: Joey Tuttle MD #### ACHRGA #### [facility] [address] [place], [place] [address] Towel Weaver: Han Carr MD #### CP, CDP #### [facility] [address] [place], [place] 8064990 Towel Weaver: LEYDA Mckeonotassium [Moles/Vol]4.6 mmol/LNormal3.7-5.3[facility] County HospitalComment on above:Performed By: #### GLYHGB #### [address] [address] Towel Weaver: Joey Tuttle MD #### ACHRGA #### [facility] [address] [place], [place] [address] Towel Weaver: Han Carr MD #### CP, CDP #### [facility] [address] [place] [address] Towel Weaver: LEYDA Mckeonrotein [Mass/Vol]7.3 g/dLNormal6.4-8.3[facility]y [facility] County HospitalComment on above:Performed By: #### GLYHGB #### [facility] [address] [place] [address] Towel Weaver: Joey Tuttle MD #### ACHRGA #### [facility] [address] [place], [place] [address] Towel Weaver: Han Carr MD #### CP, CDP #### [facility] [address] [place] [address] Towel Weaver: SUNG Mckeonodium [Moles/Vol]133 mmol/VQxa338-917FvoqlFostoria City HospitalComment on above:Performed By: #### GLYHGB #### [facility] [address] [place] [address] Towel Weaver: Joey Tuttle MD #### ACHRGA #### [facility] [address] [place], [place] [address] Towel Weaver: Han Carr MD #### CP, CDP #### [facility] [address] [place], [place] 94[address] Towel Weaver: Nacho Reaves MDUrea nitrogen [Mass/Vol]49 mg/dLHigh6-20F[facility] City HospitalComment on above:Performed By: #### GLYHGB #### [facility] [address] [place] [id number] Towel Weaver: Joey Tuttle MD #### ACHRGA #### [facility] [address] [place] [address] Towel Weaver: Han Carr MD #### CP, TIFFANY #### [facility] [address] [place] [address] Towel Weaver: Nacho Reaves [facility]SAomprehensive Metabolic Panelon 33-79-2742Dlmeoam [Mass/Vol]3.6 g/dL3.5 - 5.2 g/dLBon [facility] HospitalALP [Catalytic activity/Vol]171 U/LHigh40 - 129 U/LBon [facility] HospitalALT [Catalytic activity/Vol]9 U/L5 - 41 U/LBon [facility] HospitalAnion gap [Moles/Vol]19 mmol/LHigh9 - 17 mmol/LBon [facility] HospitalAST [Catalytic activity/Vol]10 U/LNINF - 40 U/LBon [facility] HospitalBilirubin [Mass/Vol]0.3 mg/dL0.3 - 1.2 mg/dLBon [facility] HospitalCalcium [Mass/Vol]9.1 mg/dL8.6 - 10.4 mg/dLBon [facility] HospitalChloride [Moles/Vol]93 mmol/LLow98 - 107 mmol/LBon [facility] HospitalCO2 [Moles/Vol]21 mmol/L20 - 31 mmol/LBon [facility] Creatinine [Mass/Vol]6.6 mg/dLCritically high0.7 - 1.2 mg/dLBon [facility] HospitalEst, Glom Filt Ziin2Ydn- PINFBon [facility] HospitalComment on above: These results are not intended for use in patients <18 years of age. eGFR results are calculated without a race factor using the 2020 CKD-EPI equation. Careful clinical correlation is recommended, particularly when comparing to results calculated using previous equations. The CKD-EPI equation is less accurate in patients with extremes of muscle mass, extra-renal metabolism of creatine, excessive creatine ingestion, or following therapy that affects renal tubular secretion. Glucose [Mass/Vol]268 mg/hHZqod70 - 99 mg/dLBon [facility] Interpretation and review of laboratory resultsAbnormalCarilion Clinicy Health Potassium [Moles/Vol]4.6 mmol/L3.7 - 5.3 mmol/LBon [facility] HospitalProtein [Mass/Vol]7.3 g/dL6.4 - 8.3 g/dLBon [facility] HospitalSodium [Moles/Vol]133 mmol/UXjf149 - 144 mmol/LBon [facility] HospitalUrea nitrogen [Mass/Vol]49 mg/dLHigh6 - 20 mg/dLBon [facility] HospitalUrea nitrogen/Creatinine [Mass ratio]7 mg/mgLow9 - 20Bon [facility] HealthCHLORIDE (POC)on 88-68-2657Khfidkis [Moles/Vol]100 mmol/L98 - 107 mmol/LBon [facility] HospitalCreatinine W/GFR Point of Careon 31-92-1162Aeppnchptx [Mass/Vol]5.1 mg/dL Critically high0.51 - 1.19 mg/dLBon [facility] HospitaleGFR, ERK38Zon- PINFBon [facility] HospitalComment on above: These results are not intended for use in patients <18 years of age. eGFR results are calculated without a race factor using the 2020 CKD-EPI equation. Careful clinical correlation is recommended, particularly when comparing to results calculated using previous equations. The CKD-EPI equation is less accurate in patients with extremes of muscle mass, extra-renal metabolism of creatine, excessive creatine ingestion, or following therapy that affects renal tubular secretion. Hemoglobin and hematocrit, bloodon 27-37-2949Btdtmqosdw (Bld) [Volume fraction] 27 %Low41 - 53 %[facility] HospitalHemoglobin (Bld) [Mass/Vol]9.2 g/dLLow 13.5 - 17.5 g/dLBon [facility] HospitalNo Panel Informationon 08-29-2024 Interpretation and review of laboratory resultsAbnormSovah Health - DanvillePOC Glucose Fingerstickon 02-65-0465Aizsnjo [Mass/Vol] 275 mg/aJXmfk07 - 110 mg/dLBon [facility] HospitalInterpretation and review of laboratory resultsAbnormSentara Norfolk General Hospital Glucose [Mass/Vol]262 mg/oSSvev79 - 110 mg/dLBon [facility] Interpretation and review of laboratory resultsAbnormalBon [facility] Bon [facility] HospitalPOCT Glucoseon 48-36-9063Agrpalq [Mass/Vol]343 mg/dLHigh 74 - 100 mg/dLBon Premier HealthCT urea (BUN)on 96-25-0515Hzjs nitrogen [Mass/Vol]39 mg/dLHigh8 - 26 mg/dLBon [facility] HospitalPOTASSIUM (POC)on 65-08-9376Ijtosuriz [Moles/Vol]4.0 mmol/L3.5 - 4.5 mmol/LBon [facility] HospitalSODIUM (POC)on 20-36-8537Opyffi [Moles/Vol]135 mmol/MPsb157 - 146 mmol/L [facility] HospitalCBC Auto Differentialon 59-72-5394Fuvanixyw (Bld) [#/Vol]0.01 10*3/uLOhioHealthBasophils/100 WBC (Bld)0.1 %OhioHealthEosinophils (Bld) [#/Vol]0.18 10*3/uLOhioHealthEosinophils/100 WBC (Bld)2.5 %[facility] Erythrocyte distribution width (RBC) [Entitic vol]18.3 %High11.6 - 14.8 % [facility] HospitalHematocrit (Bld) [Volume fraction]26.4 %Low41.0 - 53.0 %[facility] Hemoglobin (Bld) [Mass/Vol]8.0 g/dLLow13.5 - 17.5 g/dLOhioHealthImmature granulocytes (Bld) [#/Vol]0.03 10*3/uLOhioHealthImmature granulocytes/100 WBC (Bld)0.40 %[facility] HospitalComment on above:The IG parameter is the percentage of metamyelocytes, myelocytes and promyelocytes. An immature granulocyte count (IG) of 1% or more suggests the possibility of infection, an IG count of 3% is very likely related to an infection.Interpretation and review of laboratory results AbnormalOhioHealthLymphocytes (Bld) [#/Vol]0.62 10*3/uLLowOhioHealth Lymphocytes/100 WBC (Bld)8.8 %OhioHealthMCH (RBC) [Entitic mass]26.4 pg26.0 - 34.0 pgOhioHealthMCHC (RBC) [Mass/Vol]30.3 g/dLLow31.0 - 37.0 g/dLOhioHealthMCV (RBC) [Entitic vol]87.1 fL80.0 - 100.0 fLOhioHealthMonocytes (Bld) [#/Vol]1.07 10*3/uLHighOhioHealthMonocytes/100 WBC (Bld)15.1 %OhioHealthNeutrophils (Bld) [#/Vol]5.16 10*3/uLOhioHealthNeutrophils/100 WBC (Bld)73.1 %OhioHealthNucleated RBC (Bld) [#/Vol]0.00 10*3/uLOhioHealthNucleated RBC/100 WBC (Bld) [Ratio]0.0 % OhioHealthPlatelet mean volume (Bld) [Entitic vol]10.0 fL9.4 - 12.4 fLOhioHealth Platelets (Bld) [#/Vol]113 10*3/uLLowOhioHealthRBC (Bld) [#/Vol]3.03 10*6/uLLow OhioHealthWBC (Bld) [#/Vol]7.07 10*3/uLOhioHealthOhioHealthComprehensive metabolic 2000 panelon 46-81-9948Wpojmlz [Mass/Vol]2.9 g/dLLow3.2 - 5.2 g/dL [facility]HealthALP [Catalytic activity/Vol]155 U/LHigh40 - 150 U/LOhioHealthALT [Catalytic activity/Vol]23 U/L0-50 U/LOhioHealthAnion gap [Moles/Vol]16 mmol/L10 - 20 mmol/LOhioHealthAST [Catalytic activity/Vol]35 U/L0-50 U/LOhioHealth Bilirubin [Mass/Vol]0.3 mg/dL0.0 - 1.3 mg/dLOhioHealthCalcium [Mass/Vol]8.1 mg/dLLow8.4 - 10.2 mg/dLOhioHealthChloride [Moles/Vol]92 mmol/LLow98 - 108 mmol/LOhioHealthCreatinine [Mass/Vol]3.36 mg/dLHigh0.50 - 1.30 mg/dLOhioHealth GFR/1.73 sq M.predicted CKD-EPI (S/P/Bld) [Vol rate/Area]21Low- PINFOhioHealth Comment on above:Estimated GFR was calculated using the 2020 CKD-EPI creatinine equation.Glucose [Mass/Vol]344 mg/rYVihe46 - 99 mg/dLOhioHealthHCO3 [Moles/Vol] 24 mmol/L21 - 32 mmol/LOhioHealthInterpretation and review of laboratory results AbnormalOhioHealthPotassium [Moles/Vol]4.0 mmol/L3.5 - 5.1 mmol/LOhioHealth Protein [Mass/Vol]5.5 g/dLLow6.0 - 8.0 g/dLOhioHealthSodium [Moles/Vol]128 mmol/CQfh076 - 145 mmol/LOhioHealthUrea nitrogen [Mass/Vol]23 mg/dL8 - 25 mg/dL OhioHealthUrea nitrogen/Creatinine [Mass ratio]6.8 mg/mgLow10.0 - 20.0[facility] has implemented the eGFR calculation approach that does not have a coefficient for race that conforms to the NKF-ASN Task Force Recommendations.[facility] Berger HospitalOhioHealthGlucose (Bld) [Mass/Vol]on 06-22-2024 Glucose [Mass/Vol]454 mg/dLCritically high65 - 99 mg/dLOhioHealthInterpretation and review of laboratory resultsAbnormalOhioHealthCritical result acted upon time of test. Test performed at bedside.OhioHealthOhioHealthGlucose [Mass/Vol] 456 mg/dLCritically high65 - 99 mg/dLOhioHealthGlucose [Mass/Vol]342 mg/hFWeli50 - 99 mg/dLOhioHealthInterpretation and review of laboratory resultsAbnormal OhioKettering [facility] Soin Medical CenterOhioHealthACT Coag (Bld)on 40-48-3258Jnsoce activated time Qn (Bld)275 secondsOhioHealthOhioHealthAPTT Heparin Coverageon 36-89-8026nGLE Coag (Bld) [Time]Critically highOhioHealthInterpretation and review of laboratory results AbnormalOhioHealthTherapeutic range for APTT's is 68 - 104 secondsCleveland Clinic Akron General Lodi HospitalaPTT Coag (Bld) [Time]83 sHighOhioHealthInterpretation and review of laboratory resultsAbnormalOhioHealthTherapeutic range for APTT's is 68 - 104 secondsOhMercer County Community HospitalCBC Auto Differentialon 18-05-5034Gjvsgisdw (Bld) [#/Vol]0.02 10*3/uLOhioHealthBasophils/100 WBC (Bld)0.2 %OhioHealthEosinophils (Bld) [#/Vol]0.26 10*3/uLOhioHealthEosinophils/100 WBC (Bld)3.1 %[facility] Erythrocyte distribution width (RBC) [Entitic vol]18.4 %High11.6 - 14.8 % [facility] HospitalHematocrit (Bld) [Volume fraction]28.6 %Low41.0 - 53.0 %[facility] Hemoglobin (Bld) [Mass/Vol]8.7 g/dLLow13.5 - 17.5 g/dLOhioHealthImmature granulocytes (Bld) [#/Vol]0.05 10*3/uLOhioHealthImmature granulocytes/100 WBC (Bld)0.60 %[facility] HospitalComment on above:The IG parameter is the percentage of metamyelocytes, myelocytes and promyelocytes. An immature granulocyte count (IG) of 1% or more suggests the possibility of infection, an IG count of 3% is very likely related to an infection.Interpretation and review of laboratory results AbnormalOhioHealthLymphocytes (Bld) [#/Vol]0.79 10*3/uLLowOhioHealth Lymphocytes/100 WBC (Bld)9.5 %[facility] Berger HospitalMCH (RBC) [Entitic mass]25.9 pgLow26.0 - 34.0 pgOhioHealthMCHC (RBC) [Mass/Vol]30.4 g/dLLow31.0 - 37.0 g/dLOhioHealthMCV (RBC) [Entitic vol]85.1 fL80.0 - 100.0 fLOhioHealthMonocytes (Bld) [#/Vol]0.85 10*3/uLOhioHealthMonocytes/100 WBC (Bld)10.2 %OhioHealthNeutrophils (Bld) [#/Vol]6.33 10*3/uLOhioHealthNeutrophils/100 WBC (Bld)76.4 %OhioHealthNucleated RBC (Bld) [#/Vol]0.00 10*3/uLOhioHealthNucleated RBC/100 WBC (Bld) [Ratio]0.0 % OhioHealthPlatelet mean volume (Bld) [Entitic vol]9.7 fL9.4 - 12.4 fLOhioHealth Platelets (Bld) [#/Vol]148 10*3/uLLowOhioHealthRBC (Bld) [#/Vol]3.36 10*6/uLLow OhioHealthWBC (Bld) [#/Vol]8.30 10*3/uLOhioHealthOhioHealthCardiac Catheterizationon 57-01-4841Dgydtoxuao: Severe 3 vessel coronary artery disease Patent stent in LCX-OM1 with no significant ISR 100% occluded ostial RCA with left to right collaterals High grade stenosis of prox-mid LAD High grade stenosis of D1 Successful percutaneous coronary intervention of LAD with cutting balloon, shockwave lithotripsy and TIFFANIE x 1 Successful percutaneous coronary intervention of D1 with TIFFANIE x 2 IVUS imaging of LAD Unable to rescue jailed D1 behind LAD stent despite multiple attempts with residual ostial 80% stenosis Normal left heart filling pressures Recommendations: Continue clopidogrel indefinitely Target LDL<70 mg/dL with a high-intensity statin Optimal lifestyle habits including smoking cessation, adopting a Mediterranean diet, and regular moderate-intensity exercise (>3 hours weekly) Participation in cardiac rehabilitation Optimal BP <120/80 mm Hg Continue P2Y12 and systemic anti-coagulation, but hold aspirin to minimize bleeding risk Coronary Findings Diagnostic Dominance: Right Left Main: The vessel was visualized by angiography, is moderate in size and is angiographically normal. Left Anterior Descending: Prox LAD to Mid LAD lesion is 80% stenosed. Culprit lesion. DAVID flow is 3. The lesion is type C and located at the bifurcation. The Bell classification is 1,1,1 - main branch proximal and distal with side branch. Previously placed Mid LAD stent of unknown type is widelypatent. First Diagonal Branch: 1st Diag lesion is 90% stenosed. DAVID flow is 3. The lesion is type C and located at the bifurcation. The Bell classification is 1,1,1 - main branch proximal and distal with side branch. Left Circumflex: Previously placed Ost Cx to Prox Cx stent of unknown type is widely patent. First Obtuse Marginal Branch: Previously placed 1st Mrg stent of unknown type is widely patent. Right Coronary Artery: Prox RCA lesion is 100% stenosed. Right Posterior Descending Artery: RPDA filled by collaterals from Dist LAD. Intervention Prox LAD to Mid LAD lesion: Angioplasty: Angioplasty was performed prior to stent deployment. Maximum pressure: 12 maite. Supplies Used: BALLOON 3.50 X 30 NC EMERGE RX Angioplasty: Angioplasty was performed prior to stent deployment. Maximum pressure: 12 maite. Supplies Used: BALLOON 3.50 X 15 WOLVERINE MR Angioplasty: Angioplasty was performed prior to stent deployment. Maximum pressure: 12 maite. Supplies Used: BALLOON 4.00 X 20 NC EMERGE RX Angioplasty: Angioplasty using intravascular lithotripsy was performed. Supplies Used: BALLOON 4.00 X 12MM SHOCKWAVE C2 INTRA LITHO CATH Stent: Stent was successfully placed. Stent was deployed by way of balloon expansion. Supplies Used: STENT 4.00 X 28 SYNERGY MEGATRON MR Angioplasty: Supplies Used: BALLOON 4.00 X 20 NC EMERGE RX Angioplasty: Angioplastywas performed independent of stent deployment. Maximum pressure: 12 maite. Inflation time: 180 sec. Supplies Used: BALLOON 2.00 X 12 NC EMERGE RX Post-Intervention Lesion Assessment: The intervention was successful. The guidewire crossed the lesion. Device was deployed. Post- intervention DAVID flow is3. There were no complications. Ultrasound (IVUS) was performed. Minimum stent area: 10.4 mm . Ultrasound supply: CATH 5FR OPTICROSS 5 HD ULTRASOUND BAGLESS. The stent appears adequately expanded by IVUS. The stent demonstrates adequate apposition by IVUS. Minimal plaque burden was detected. There is a 0% residual stenosis post intervention. 1st Diag lesion: Angioplasty: Angioplasty was performed prior to stent deployment. Maximum pressure: 12 maite. Supplies Used: BALLOON 2.50 X 20 NC EMERGE RX Stent: Stent was successfully placed. Stent was deployed by way of balloon expansion. Supplies Used: STENT 2.50 X 28 SYNERGY XD MR Angioplasty: Maximum pressure: 12 maite. Supplies Used: BALLOON 2.75 X 20 NC EMERGE RX Stent: Stent was successfully placed. Stent was deployed by way of balloon expansion. Maximum pressure: 18 maite. Supplies Used: STENT 2.75 X 08 SYNERGY XD MR Angioplasty: Maximum pressure: 18 maite. Supplies Used: BALLOON 1.5 X 12MM EMERGE PUSH RX Angioplasty: Supplies Used: BALLOON 1.00 X 10 SAPPHIRE II PRO PTCA Angioplasty: Maximum pressure: 6 maite. Supplies Used: BALLOON 1.20 X 08 EMERGE PUSH RX Angioplasty: Supplies Used: BALLOON 1.00 X 08 SAPPHIRE II PRO OTW Angioplasty: Supplies Used: BALLOON 1.00 X 08 SAPPHIRE II PRO OTW Post-Intervention Lesion Assessment: The intervention was successful. The guidewire crossed the lesion. Device was not deployed. Post-intervention DAVID flow is 3. There were no complications. There is a 80% residual stenosis post intervention. Left Ventricle LV systolic pressure is normal. LV end diastolic pressure is normal. Appropriate use criteria Indication for PCI: NSTEMI/UA.[employer] CVOhioHealthRadiology Study observation (narrative)TexasHealthComprehensive metabolic 1999 panelOrdered By: Lv Christianson on 72-91-7879Zpjdxlx [Mass/Vol]3.1 g/dLLow3.2 - 5.2 g/dLOhioHealthALP [Catalytic activity/Vol]173 U/LHigh40 - 150 U/LOhioHealthALT [Catalytic activity/Vol]23 U/L0-50 U/LOhioHealthAnion gap [Moles/Vol]17 mmol/L10 - 20 mmol/LOhioHealthAST [Catalytic activity/Vol]36 U/L0-50 U/LOhioHealthBilirubin [Mass/Vol]0.4 mg/dL0.0 - 1.3 mg/dLOhioHealthCalcium [Mass/Vol]8.9 mg/dL8.4 - 10.2 mg/dLOhioHealthChloride [Moles/Vol]92 mmol/LLow98 - 108 mmol/LOhioHealth Creatinine [Mass/Vol]5.18 mg/dLHigh0.50 - 1.30 mg/dLOhioHealthGFR/1.73 sq M.predicted CKD-EPI (S/P/Bld) [Vol rate/Area]12Low- PINFOhioHealthComment on above:Estimated GFR was calculated using the 2020 CKD-EPI creatinine equation. Glucose [Mass/Vol]301 mg/wBXgfq57 - 99 mg/dLOhioHealthHCO3 [Moles/Vol]22 mmol/L 21 - 32 mmol/LOhioHealthInterpretation and review of laboratory resultsAbnormal OhioHealthPotassium [Moles/Vol]4.5 mmol/L3.5 - 5.1 mmol/LOhioHealthProtein [Mass/Vol]6.0 g/dL6.0 - 8.0 g/dLOhioHealthSodium [Moles/Vol]126 mmol/PUvt625 - 145 mmol/LOhioHealthUrea nitrogen [Mass/Vol]40 mg/dLHigh8 - 25 mg/dLOhioHealth Urea nitrogen/Creatinine [Mass ratio]7.7 mg/mgLow10.0 - 20.0OhioHealthOhioHealth Laboratory Services has implemented the eGFR calculation approach that does not have a coefficient for race that conforms to the NKF-ASN Task Force Recommendations.[facility] 33-47-6212Nwgkgtk Info Name: LORENZO AMATO Age: 54 years : 1970 Gender: Male Ht: 175 cm Wt: 139 kg BSA: 2.67 m2 HR: 85 bpm BP: 141 / 74 mmHg Heart Rhythm: Sinus Rhythm Technical Quality: Fair Exam Date: 06/21/2024 1:43 PM Patient Status: Inpatient Inspector Precision: Sherice Owens RDCS Exam Type: ECHOCARDIOGRAM LIMITED Study Info Indications I31.3 - Pericardial effusion (noninflammatory) Referring Physician: GRACIE MILLER ; [id number] BMI: 45.34 kg/m2 Summary 1. A Limited transthoracic echocardiographic study was performed to reassess pericardial effusion. Complete Doppler exam was not performed. 2. There is no pericardial effusion. Pericaridal fat pad was also noted on echocardiogram 06/16/24 - no significant change. History/Risk Factors Hypertension: Yes Renal Disease: Yes Diabetes Mellitus: Type II Tobacco Use: Never Family History: Coronary Artery Disease Deep Vein Thrombosis (DVT): Acute Prior Interventions PCI: Yes Date of PCI: 11/15/2018 Procedure(s): A Limited transthoracic echocardiographic study was performed to reassess pericardial effusion. Complete Doppler exam was not performed. Report Signatures Finalized by Luca Vasquez MD on 06/21/2024 02:23 PMFUJI Rui Reynoso MD - 06/21/2024 Patient Info Name: LORENZO AMATO Age: 54 years : 1970 Gender: Male Ht: 175 cm Wt: 139 kg BSA: 2.67 m2 HR: 85 bpm BP: 141 / 74 mmHg Heart Rhythm: Sinus Rhythm Technical Quality: Fair Exam Date: 06/21/2024 1:43 PM Patient Status: Inpatient Inspector Precision: Sherice Owens KARAN Exam Type: ECHOCARDIOGRAM LIMITED Study Info Indications I31.3 - Pericardial effusion (noninflammatory) Referring Physician: GRACIE MILLER ; [id number] BMI: 45.34 kg/m2 Summary 1. A Limited transthoracic echocardiographic study was performed to reassess pericardial effusion. Complete Doppler exam was not performed. 2. There is no pericardial effusion. Pericaridal fat pad was also noted on echocardiogram 06/16/24 - no significant change. History/Risk Factors Hypertension: Yes Renal Disease: Yes Diabetes Mellitus: Type II Tobacco Use: Never Family History: Coronary Artery Disease Deep Vein Thrombosis (DVT): Acute Prior Interventions PCI: Yes Date of PCI: 11/15/2018 Procedure(s): A Limited transthoracic echocardiographic study was performed to reassess pericardial effusion. Complete Doppler exam was not performed. Report Signatures Finalized by Luca Vasquez MD on 06/21/2024 02:23 PM OhioHealthOhioHealthGlucose (Bld) [Mass/Vol]on 84-39-4636Drlmqgb [Mass/Vol]204 mg/eWUmav30 - 99 mg/dLOhioHealthInterpretation and review of laboratory results AbnormalOhioHealthOhioHealthGlucose [Mass/Vol]334 mg/mYKcbq10 - 99 mg/dL OhioHealthInterpretation and review of laboratory resultsAbnormalOhioHealth TexasHealthHemodialysis inpatienton 00-13-9210KpqhhHeather Granger RN 06/21/2024 8:10 PM Hemodialysis tx complete. Patient hypotensive with fluid removal goals. Dr. Miller updated and orded 1000ml's ns to be given during the remainder of tx. Patient tolerated tx well. +1000 UF Pre weight 132.3kg Post weight 133kg Tx start 1543 Tx complete-194 Post tx vitals-130/66 t-98.6 p-83 rr-18OhioHealthOhioHealthAPTT Heparin Coverage Ordered By: Mer Faith on 92-08-5209iGFX Coag (Bld) [Time]53 sHighOhioHealth Interpretation and review of laboratory resultsAbnormalOhioHealthTherapeutic range for APTT's is 68 - 104 secondsOhioHealthOhioHealthAPTT Heparin Coverage Ordered By: Marylou Mak on 65-56-8989kBTA Coag (Bld) [Time]41 sHighOhioHealth Interpretation and review of laboratory resultsAbnormalOhioHealthTherapeutic range for APTT's is 68 - 104 secondsOhioHealthOhioHealthCBC Auto Differentialon 47-74-9224Qprpibtni (Bld) [#/Vol]0.02 10*3/uLOhioHealthBasophils/100 WBC (Bld) 0.3 %OhioHealthEosinophils (Bld) [#/Vol]0.26 10*3/uLOhioHealthEosinophils/100 WBC (Bld)3.4 %OhioHealthErythrocyte distribution width (RBC) [Entitic vol]18.0 % High11.6 - 14.8 %OhioHealthHematocrit (Bld) [Volume fraction]27.0 %Low41.0 - 53.0 %OhioHealthHemoglobin (Bld) [Mass/Vol]8.2 g/dLLow13.5 - 17.5 g/dLOhioHealth Immature granulocytes (Bld) [#/Vol]0.05 10*3/uLOhioHealthImmature granulocytes/100 WBC (Bld)0.60 %OhioHealthComment on above:The IG parameter is the percentage of metamyelocytes, myelocytes and promyelocytes. An immature gran ulocyte count (IG) of 1% or more suggests the possibility of infection, an IG count of 3% is very likely related to an infection.Interpretation and review of laboratory resultsAbnormalOhioHealthLymphocytes (Bld) [#/Vol]0.83 10*3/uLLow OhioHealthLymphocytes/100 WBC (Bld)10.8 %OhioHealthMCH (RBC) [Entitic mass]26.0 pg26.0 - 34.0 pgOhioHealthMCHC (RBC) [Mass/Vol]30.4 g/dLLow31.0 - 37.0 g/dL [facility] HospitalMCV (RBC) [Entitic vol]85.7 fL80.0 - 100.0 fLOhioHealthMonocytes (Bld) [#/Vol]1.19 10*3/uLHighOhioHealthMonocytes/100 WBC (Bld)15.4 %[facility] Neutrophils (Bld) [#/Vol]5.36 10*3/uLOhioHealthNeutrophils/100 WBC (Bld)69.5 % OhioHealthNucleated RBC (Bld) [#/Vol]0.00 10*3/uLOhioHealthNucleated RBC/100 WBC (Bld) [Ratio]0.0 %[facility] Berger HospitalPlatelet mean volume (Bld) [Entitic vol]10.1 fL9.4 - 12.4 fLOhioHealthPlatelets (Bld) [#/Vol]148 10*3/uLLowOhioHealthRBC (Bld) [#/Vol]3.15 10*6/uLLowOhioHealthWBC (Bld) [#/Vol]7.71 10*3/uLOhioHealth OhioHealthCBC panel Auto (Bld)on 64-60-5538Fsfmfwwkouo distribution width (RBC) [Entitic vol]18.4 %High11.6 - 14.8 %OhioHealthHematocrit (Bld) [Volume fraction] 30.6 %Low41.0 - 53.0 %OhioHealthHemoglobin (Bld) [Mass/Vol]9.1 g/dLLow13.5 - 17.5 g/dLOhioHealthInterpretation and review of laboratory resultsAbnormal [facility] HospitalMCH (RBC) [Entitic mass]25.9 pgLow26.0 - 34.0 pgOhioHealthMCHC (RBC) [Mass/Vol]29.7 g/dLLow31.0 - 37.0 g/dLOhioHealthMCV (RBC) [Entitic vol]86.9 fL 80.0 - 100.0 fLOhioHealthNucleated RBC (Bld) [#/Vol]0.00 10*3/uLOhioHealth Nucleated RBC/100 WBC (Bld) [Ratio]0.0 %OhioHealthPlatelet mean volume (Bld) [Entitic vol]9.7 fL9.4 - 12.4 fLOhioHealthPlatelets (Bld) [#/Vol]152 10*3/uL OhioHealthRBC (Bld) [#/Vol]3.52 10*6/uLLowOhioHealthWBC (Bld) [#/Vol]7.51 10*3/uLOhioHealthOhioHealthComprehensive metabolic 2000 panelon 06-20-2024 Albumin [Mass/Vol]3.2 g/dL3.2 - 5.2 g/dLOhioHealthALP [Catalytic activity/Vol] 172 U/LHigh40 - 150 U/LOhioHealthALT [Catalytic activity/Vol]10 U/L0-50 U/L OhioHealthAnion gap [Moles/Vol]16 mmol/L10 - 20 mmol/LOhioHealthAST [Catalytic activity/Vol]25 U/L0-50 U/LOhioHealthBilirubin [Mass/Vol]0.4 mg/dL0.0 - 1.3 mg/dLOhioHealthCalcium [Mass/Vol]8.7 mg/dL8.4 - 10.2 mg/dLOhioHealthChloride [Moles/Vol]95 mmol/LLow98 - 108 mmol/LOhioHealthCreatinine [Mass/Vol]4.58 mg/dL High0.50 - 1.30 mg/dLOhioHealthGFR/1.73 sq M.predicted CKD-EPI (S/P/Bld) [Vol rate/Area]14Low- PINFOhioHealthComment on above:Estimated GFR was calculated using the 2020 CKD-EPI creatinine equation.Glucose [Mass/Vol]311 mg/jUVnhm51 - 99 mg/dLOhioHealthHCO3 [Moles/Vol]25 mmol/L21 - 32 mmol/LOhioHealth Interpretation and review of laboratory resultsAbnormalOhioHealthPotassium [Moles/Vol]4.0 mmol/L3.5 - 5.1 mmol/LOhioHealthProtein [Mass/Vol]6.1 g/dL6.0 - 8.0 g/dLOhioHealthSodium [Moles/Vol]132 mmol/KAim868 - 145 mmol/LOhioHealthUrea nitrogen [Mass/Vol]29 mg/dLHigh8 - 25 mg/dLOhioHealthUrea nitrogen/Creatinine [Mass ratio]6.3 mg/mgLow10.0 - 20.0[facility] has implemented the eGFR calculation approach that does not have a coefficient for race that conforms to the NKF-ASN Task Force Recommendations.[facility] OhioHealthGlucose (Bld) [Mass/Vol]on 26-62-0192Iwkecjf [Mass/Vol]325 mg/jCXevf45 - 99 mg/dLOhioHealthInterpretation and review of laboratory resultsAbnormal OhioK[facility] Medical CenterOhioHealthGlucose [Mass/Vol]320 mg/sLLpym86 - 99 mg/dLOhioHealth Interpretation and review of laboratory resultsAbLakeWood Health Center Glucose [Mass/Vol]288 mg/jSJmch22 - 99 mg/dLOhioHealthInterpretation and review of laboratory resultsAbLakeWood Health CenterCBC Auto Differentialon [id number] (Bld) [#/Vol]0.02 10*3/uLOhioHealthBasophils/100 WBC (Bld) 0.3 %OhioHealthEosinophils (Bld) [#/Vol]0.28 10*3/uLOhioHealthEosinophils/100 WBC (Bld)3.6 %[facility] CenterErythrocyte distribution width (RBC) [Entitic vol]17.5 % High11.6 - 14.8 %OhioHealthHematocrit (Bld) [Volume fraction]27.7 %Low41.0 - 53.0 %OhioHealthHemoglobin (Bld) [Mass/Vol]8.3 g/dLLow13.5 - 17.5 g/dLOhioHealth Immature granulocytes (Bld) [#/Vol]0.04 10*3/uLOhioHealthImmature granulocytes/100 WBC (Bld)0.50 %OhioHealthComment on above:The IG parameter is the percentage of metamyelocytes, myelocytes and promyelocytes. An immature gran ulocyte count (IG) of 1% or more suggests the possibility of infection, an IG count of 3% is very likely related to an infection.Interpretation and review of laboratory resultsAbnormalOhioHealthLymphocytes (Bld) [#/Vol]0.76 10*3/uLLow OhioHealthLymphocytes/100 WBC (Bld)9.7 %[facility] HospitalMCH (RBC) [Entitic mass]26.0 pg26.0 - 34.0 pgOhHealthMCHC (RBC) [Mass/Vol]30.0 g/dLLow31.0 - 37.0 g/dL [facility] HospitalMCV (RBC) [Entitic vol]86.8 fL80.0 - 100.0 fLOhioHealthMonocytes (Bld) [#/Vol]0.90 10*3/uLOhioHealthMonocytes/100 WBC (Bld)11.5 %TexasHealthNeutrophils (Bld) [#/Vol]5.84 10*3/uLOhioHealthNeutrophils/100 WBC (Bld)74.4 %[facility] Nucleated RBC (Bld) [#/Vol]0.00 10*3/uLOhioHealthNucleated RBC/100 WBC (Bld) [Ratio]0.0 %[facility] Berger HospitalPlatelet mean volume (Bld) [Entitic vol]9.6 fL9.4 - 12.4 fLOhioHealthPlatelets (Bld) [#/Vol]171 10*3/uLOhioHealthRBC (Bld) [#/Vol]3.19 10*6/uLLowOhioHealthWBC (Bld) [#/Vol]7.84 10*3/uLOhioHealthOhioHealth Comprehensive metabolic 2000 panelon [id number] [Mass/Vol]3.1 g/dLLow3.2 - 5.2 g/dLOhioHealthALP [Catalytic activity/Vol]162 U/LHigh40 - 150 U/L [facility]HealthALT [Catalytic activity/Vol]11 U/L0-50 U/LOhioHealthAnion gap [Moles/Vol]16 mmol/L10 - 20 mmol/LOhioHealthAST [Catalytic activity/Vol]16 U/L0- 50 U/LOhioHealthBilirubin [Mass/Vol]0.3 mg/dL0.0 - 1.3 mg/dLOhioHealthCalcium [Mass/Vol]8.5 mg/dL8.4 - 10.2 mg/dLOhioHealthChloride [Moles/Vol]97 mmol/LLow98 - 108 mmol/LOhioHealthCreatinine [Mass/Vol]5.14 mg/dLHigh0.50 - 1.30 mg/dL OhioHealthGFR/1.73 sq M.predicted CKD-EPI (S/P/Bld) [Vol rate/Area]12Low- PINF TexasHealthComment on above:Estimated GFR was calculated using the 2020 CKD-EPI creatinine equation.Glucose [Mass/Vol]225 mg/mDMufm30 - 99 mg/dLOhioHealthHCO3 [Moles/Vol]25 mmol/L21 - 32 mmol/LOhioHealthInterpretation and review of laboratory resultsAbnormalOhioHealthPotassium [Moles/Vol]4.5 mmol/L3.5 - 5.1 mmol/LOhioHealthProtein [Mass/Vol]6.2 g/dL6.0 - 8.0 g/dLOhioHealthSodium [Moles/Vol]133 mmol/JZce117 - 145 mmol/LOhioHealthUrea nitrogen [Mass/Vol]35 mg/dLHigh8 - 25 mg/dLOhioHealthUrea nitrogen/Creatinine [Mass ratio]6.8 mg/mgLow 10.0 - 20.0Ohio[facility] has implemented the eGFR calculation approach that does not have a coefficient for race that conforms to the NKF-ASN Task Force Recommendations.[facility] CenterioHealthHemodialysis inpatienton [id number], Dana M, RN 06/19/2024 1:43 PM Hemodialysis tx complete Hypotensive at times corrected with goal adjustments and NS bolus UF 2100 Pre tx wt-132.4kg Post tx wt-129.4kg Post tx vitals-136/69 t-98.6 p-78 rr-18OhioHealthOhioHealthCBC Auto Differential on [id number] (Bld) [#/Vol]0.03 10*3/uLOhioHealthBasophils/100 WBC (Bld)0.4 %OhioHealthEosinophils (Bld) [#/Vol]0.38 10*3/uLOhioHealth Eosinophils/100 WBC (Bld)5.0 %OhioHealthErythrocyte distribution width (RBC) [Entitic vol]17.5 %High11.6 - 14.8 %OhioHealthHematocrit (Bld) [Volume fraction] 28.3 %Low41.0 - 53.0 %OhioHealthHemoglobin (Bld) [Mass/Vol]8.3 g/dLLow13.5 - 17.5 g/dLOhioHealthImmature granulocytes (Bld) [#/Vol]0.03 10*3/uLOhioHealth Immature granulocytes/100 WBC (Bld)0.40 %OhioHealthComment on above:The IG parameter is the percentage of metamyelocytes, myelocytes and promyelocytes. An immature granulocyte count (IG) of 1% or more suggests the possibility of infection, an IG count of 3% is very likely related to an infection. Interpretation and review of laboratory resultsAbnormalOhioHealthLymphocytes (Bld) [#/Vol]0.88 10*3/uLLowOhioHealthLymphocytes/100 WBC (Bld)11.5 %[facility] MCH (RBC) [Entitic mass]25.7 pgLow26.0 - 34.0 pgOhioHealthMCHC (RBC) [Mass/Vol] 29.3 g/dLLow31.0 - 37.0 g/dLOhioHealthMCV (RBC) [Entitic vol]87.6 fL80.0 - 100.0 fLOhioHealthMonocytes (Bld) [#/Vol]0.78 10*3/uLOhioHealthMonocytes/100 WBC (Bld) 10.2 %OhioHealthNeutrophils (Bld) [#/Vol]5.57 10*3/uLOhioHealthNeutrophils/100 WBC (Bld)72.5 %OhioHealthNucleated RBC (Bld) [#/Vol]0.00 10*3/uLOhioHealth Nucleated RBC/100 WBC (Bld) [Ratio]0.0 %OhioHealthPlatelet mean volume (Bld) [Entitic vol]9.8 fL9.4 - 12.4 fLOhioHealthPlatelets (Bld) [#/Vol]168 10*3/uL OhioHealthRBC (Bld) [#/Vol]3.23 10*6/uLLowOhioHealthWBC (Bld) [#/Vol]7.67 10*3/uLOhioHealthOhioHealthComprehensive metabolic 2000 panelon 06-18-2024 Albumin [Mass/Vol]3.1 g/dLLow3.2 - 5.2 g/dLOhioHealthALP [Catalytic activity/Vol]164 U/LHigh40 - 150 U/LOhioHealthALT [Catalytic activity/Vol]8 U/L 0-50 U/LOhioHealthAnion gap [Moles/Vol]17 mmol/L10 - 20 mmol/LOhioHealthAST [Catalytic activity/Vol]18 U/L0-50 U/LOhioHealthBilirubin [Mass/Vol]0.3 mg/dL0.0 - 1.3 mg/dLOhioHealthCalcium [Mass/Vol]8.6 mg/dL8.4 - 10.2 mg/dLOhioHealth Chloride [Moles/Vol]97 mmol/LLow98 - 108 mmol/LOhioHealthCreatinine [Mass/Vol] 4.19 mg/dLHigh0.50 - 1.30 mg/dLOhioHealthGFR/1.73 sq M.predicted CKD-EPI (S/P/Bld) [Vol rate/Area]16Low- PINFOhioHealthComment on above:Estimated GFR was calculated using the 2020 CKD-EPI creatinine equation.Glucose [Mass/Vol]240 mg/xCRqqp23 - 99 mg/dLOhioHealthHCO3 [Moles/Vol]23 mmol/L21 - 32 mmol/L [facility] HospitalInterpretation and review of laboratory resultsAbnormalOhioHealth Potassium [Moles/Vol]4.1 mmol/L3.5 - 5.1 mmol/LOhioHealthProtein [Mass/Vol]6.2 g/dL6.0 - 8.0 g/dLOhioHealthSodium [Moles/Vol]133 mmol/LDkv039 - 145 mmol/L OhioHealthUrea nitrogen [Mass/Vol]29 mg/dLHigh8 - 25 mg/dLOhioHealthUrea nitrogen/Creatinine [Mass ratio]6.9 mg/mgLow10.0 - 20.0OhioHealthOhioHealth Laboratory Services has implemented the eGFR calculation approach that does not have a coefficient for race that conforms to the NKF-ASN Task Force Recommendations.[facility] Auto Differentialon [id number] (Bld) [#/Vol]0.03 10*3/uLOhioHealthBasophils/100 WBC (Bld)0.4 %[facility] Eosinophils (Bld) [#/Vol]0.33 10*3/uLOhioHealthEosinophils/100 WBC (Bld)4.0 % [facility] HospitalErythrocyte distribution width (RBC) [Entitic vol]17.7 %High11.6 - 14.8 %[facility] HospitalHematocrit (Bld) [Volume fraction]24.5 %Low41.0 - 53.0 % [facility] HospitalHemoglobin (Bld) [Mass/Vol]7.3 g/dLLow13.5 - 17.5 g/dLTexasHealth Immature granulocytes (Bld) [#/Vol]0.03 10*3/uLOhioHealthImmature granulocytes/100 WBC (Bld)0.40 %[facility] HospitalComment on above:The IG parameter is the percentage of metamyelocytes, myelocytes and promyelocytes. An immature gran ulocyte count (IG) of 1% or more suggests the possibility of infection, an IG count of 3% is very likely related to an infection.Interpretation and review of laboratory resultsAbnormalOhioHealthLymphocytes (Bld) [#/Vol]0.90 10*3/uL OhioHealthLymphocytes/100 WBC (Bld)11.0 %[facility] HospitalMCH (RBC) [Entitic mass]26.1 pg26.0 - 34.0 pgOhioHealthMCHC (RBC) [Mass/Vol]29.8 g/dLLow31.0 - 37.0 g/dL [facility] HospitalMCV (RBC) [Entitic vol]87.5 fL80.0 - 100.0 fLOhioHealthMonocytes (Bld) [#/Vol]0.96 10*3/uLHighOhioHealthMonocytes/100 WBC (Bld)11.8 %[facility] Neutrophils (Bld) [#/Vol]5.91 10*3/uLOhioHealthNeutrophils/100 WBC (Bld)72.4 % OhioHealthComment on above:Peripheral smear reviewed manuallyNucleated RBC (Bld) [#/Vol]0.00 10*3/uLOhioHealthNucleated RBC/100 WBC (Bld) [Ratio]0.0 %[facility] Platelet mean volume (Bld) [Entitic vol]9.3 fLLow9.4 - 12.4 fLOhioHealth Platelets (Bld) [#/Vol]196 10*3/uLOhioHealthRBC (Bld) [#/Vol]2.80 10*6/uLLow OhioHealthWBC (Bld) [#/Vol]8.16 10*3/uLOhioHealthCBC and Diff Morphologyon [id number] LM Ql (Bld)NormalNormalOhioHealthPolychromasia LM Ql (Bld) ModerateOhioHealthRBC morphology finding Nom (Bld)See CommentOhioHealthComment on above:RBC Indices confirmed with manual peripheral smear review.CT Abdomen and Pelvis WO contraston 06-17-2024 1. Peritoneal dialysis catheter is in place. No appreciable ascites is noted. 2. Mild pulmonary edema with trace bilateral pleural effusions, left greater than right appears newin the interval. 3. Stable partially calcified perigastric masses. Attention to these at follow-up. 4. Stable prominent mildly enlarged lymph nodes along the external iliac chains, nonspecific. 5. Attenuated and calcified lower IVC could be related to chronic occlusion. Multiple body wall varicosities are noted. MPH/mjr Workstation ID: [id number] RISEXAMINATION: CT ABDOMEN PELVIS WITHOUT CONTRAST HISTORY: Abdominal tension after PD. ORDERING SYSTEM PROVIDED HISTORY: Abdominal tension after PD, TECHNOLOGIST PROVIDED HISTORY: Illness/Other Reason for exam: RIGHT SIDED GROIN SWELLING after peritoneal dialysis this week Encounter Type: Initial Additional signs and symptoms: . ORDERING SYSTEM PROVIDED DIAGNOSIS CODES: R60.9 Fluid retention COMPARISON: CT 04/21/2024. CT abdomen/pelvis 12/01/2017. TECHNIQUE: Multiple axial unenhanced CT images of the abdomen and pelvis were obtained without IV contrast. 2Dcoronal and sagittal MIP reformations were submitted for review. Dose reduction techniques were achieved by using automated exposure control and/or adjustment of mAand/or kV according to patient size and/or use of iterative reconstruction technique. FINDINGS: LUNG BASES: Minor interlobular septal thickening is seen with trace bilateral pleural effusions, left greater than right. Decreased density of blood pool relative to the myocardium suggesting anemia. LYMPH NODES: There are multiple partially calcified soft tissue nodules along the lesser curvature of the stomach measuring up to 2.6 cm in greater curvature of the stomach measuring up to 3.7 cm, unchanged. Stable lymph nodes along the external iliac chain on the right measuring up to 3.6 x 1.9 cmand on the left measuring 2.4 x 1.4 cm. ABDOMINAL AORTA: No aortic aneurysm is seen. Moderate calcific plaque. IVC filter is noted in the IVC below the renal veins. The IVC below the filter is small in caliber and heavily calcified. Numerous collateral veins are seen along the body wall. LIVER: Liver contour appears smooth. No focal liver parenchymal mass identified. BILIARY TREE AND GALLBLADDER: No intrahepatic or extrahepatic bile duct dilatation. Gallbladder is fluid distended without calcified gallstones. PANCREAS: Normal in size without masses or ductal dilatation. No peripancreatic inflammatory changes. SPLEEN: Normal in size without focal lesions. ADRENAL GLANDS: Normal bilaterally, without nodules. KIDNEYS/URINARY BLADDER: The kidneys appear symmetric in size. No parenchymal lesions identified. No KUB stones or hydronephrosis identified. Urinary bladder appears unremarkable. GASTROINTESTINAL TRACT: No bowel obstruction is identified. The stomach and duodenum appear unremarkable. Prior appendectomy. PERITONEAL CAVITY AND SURFACES: No free fluid. No free intraperitoneal air. Peroneal dialysis catheter is noted terminating in the right mid abdomen. REPRODUCTIVE ORGANS: Prostate gland measures 3.5 cm. ABDOMINAL WALL: No abdominal hernias are seen. Mild body wall edema is noted. OSSEOUS STRUCTURES: No aggressive appearing osseous lesions. No compression fracture is identified.Convex left curvature of the lumbar spine with cbxa-mf-mdqsydui degenerative disc disease. Osteitispubis is noted. Elroy Romero, DO - 06/17/2024 EXAMINATION: CT ABDOMEN PELVIS WITHOUT CONTRAST HISTORY: Abdominal tension after PD. ORDERING SYSTEM PROVIDED HISTORY: Abdominal tension after PD, TECHNOLOGIST PROVIDED HISTORY: Illness/Other Reason for exam: RIGHT SIDED GROIN SWELLING after peritoneal dialysis this week Encounter Type: Initial Additional signs and symptoms: . ORDERING SYSTEM PROVIDED DIAGNOSIS CODES: R60.9 Fluid retention COMPARISON: CT 04/21/2024. CT abdomen/pelvis 12/01/2017. TECHNIQUE: Multiple axial unenhanced CT images of the abdomen and pelvis were obtained without IV contrast. 2Dcoronal and sagittal MIP reformations were submitted for review. Dose reduction techniques were achieved by using automated exposure control and/or adjustment of mAand/or kV according to patient size and/or use of iterative reconstruction technique. FINDINGS: LUNG BASES: Minor interlobular septal thickening is seen with trace bilateral pleural effusions, left greater than right. Decreased density of blood pool relative to the myocardium suggesting anemia. LYMPH NODES: There are multiple partially calcified soft tissue nodules along the lesser curvature of the stomach measuring up to 2.6 cm in greater curvature of the stomach measuring up to 3.7 cm, unchanged. Stable lymph nodes along the external iliac chain on the right measuring up to 3.6 x 1.9 cmand on the left measuring 2.4 x 1.4 cm. ABDOMINAL AORTA: No aortic aneurysm is seen. Moderate calcific plaque. IVC filter is noted in the IVC below the renal veins. The IVC below the filter is small in caliber and heavily calcified. Numerous collateral veins are seen along the body wall. LIVER: Liver contour appears smooth. No focal liver parenchymal mass identified. BILIARY TREE AND GALLBLADDER: No intrahepatic or extrahepatic bile duct dilatation. Gallbladder is fluid distended without calcified gallstones. PANCREAS: Normal in size without masses or ductal dilatation. No peripancreatic inflammatory changes. SPLEEN: Normal in size without focal lesions. ADRENAL GLANDS: Normal bilaterally, without nodules. KIDNEYS/URINARY BLADDER: The kidneys appear symmetric in size. No parenchymal lesions identified. No KUB stones or hydronephrosis identified. Urinary bladder appears unremarkable. GASTROINTESTINAL TRACT: No bowel obstruction is identified. The stomach and duodenum appear unremarkable. Prior appendectomy. PERITONEAL CAVITY AND SURFACES: No free fluid. No free intraperitoneal air. Peroneal dialysis catheter is noted terminating in the right mid abdomen. REPRODUCTIVE ORGANS: Prostate gland measures 3.5 cm. ABDOMINAL WALL: No abdominal hernias are seen. Mild body wall edema is noted. OSSEOUS STRUCTURES: No aggressive appearing osseous lesions. No compression fracture is identified.Convex left curvature of the lumbar spine with qyxv-qj-yghheadw degenerative disc disease. Osteitispubis is noted. IMPRESSION: 1. Peritoneal dialysis catheter is in place. No appreciable ascites is noted. 2. Mild pulmonary edema with trace bilateral pleural effusions, left greater than right appears newin the interval. 3. Stable partially calcified perigastric masses. Attention to these at follow-up. 4. Stable prominent mildly enlarged lymph nodes along the external iliac chains, nonspecific. 5. Attenuated and calcified lower IVC could be related to chronic occlusion. Multiple body wall varicosities are noted. MPH/mjr Workstation ID: [id number] TexasHealthCT Abdomen and Pelvis WO contrastOrdered By: Elroy Roper on [id number] Work Phone: Comprehensive metabolic 2000 panelon 25-40-9388Vdvqujo [Mass/Vol]3.0 g/dLLow3.2 - 5.2 g/dLOhioHealthALP [Catalytic activity/Vol]155 U/LHigh40 - 150 U/LOhioHealthALT [Catalytic activity/Vol]8 U/L0-50 U/LOhioHealth Anion gap [Moles/Vol]15 mmol/L10 - 20 mmol/LOhioHealthAST [Catalytic activity/Vol]20 U/L0-50 U/LOhioHealthBilirubin [Mass/Vol]0.3 mg/dL0.0 - 1.3 mg/dLOhioHealthCalcium [Mass/Vol]8.2 mg/dLLow8.4 - 10.2 mg/dLOhioHealthChloride [Moles/Vol]98 mmol/L98 - 108 mmol/LOhioHealthCreatinine [Mass/Vol]4.83 mg/dLHigh 0.50 - 1.30 mg/dLOhioHealthGFR/1.73 sq M.predicted CKD-EPI (S/P/Bld) [Vol rate/Area]13Low- PINFOhioHealthComment on above:Estimated GFR was calculated using the 2020 CKD-EPI creatinine equation.Glucose [Mass/Vol]276 mg/hNTfrl97 - 99 mg/dLOhioHealthHCO3 [Moles/Vol]22 mmol/L21 - 32 mmol/LOhioHealth Interpretation and review of laboratory resultsAbnormalOhioHealthPotassium [Moles/Vol]4.2 mmol/L3.5 - 5.1 mmol/LOhioHealthProtein [Mass/Vol]5.7 g/dLLow6.0 - 8.0 g/dLOhioHealthSodium [Moles/Vol]131 mmol/FOwh650 - 145 mmol/LOhioHealth Urea nitrogen [Mass/Vol]36 mg/dLHigh8 - 25 mg/dLOhioHealthUrea nitrogen/Creatinine [Mass ratio]7.5 mg/mgLow10.0 - 20.0[facility] has implemented the eGFR calculation approach that does not have a coefficient for race that conforms to the NKF-ASN Task Force Recommendations.[facility] CenterioHealthHemodialysis inpatienton [id number] Granger RN 06/17/2024 2:50 PM Hemodialysis tx complete without complications over 3hrs using a 3k bath Tx start-08:23 Tx complete-11:24 Pre tx wt-135.1kg Post tx wt-132.6kg UF 2.5kg Post tx vitals-131/74 t-98.2 p-70 r-18 [facility] CenterOhioHealthNo Panel Informationon [id number] Heparin CoverageOrdered By: Giles Dooley on 83-86-1304tWST Coag (Bld) [Time]70 sHigh [facility] HospitalInterpretation and review of laboratory resultsAbnormalOhioHeal Therapeutic range for APTT's is 68 - 104 secondsLicking Memorial HospitalCBC Auto Differentialon [id number] (Bld) [#/Vol]0.02 10*3/uLInioHealth Basophils/100 WBC (Bld)0.3 %OhioHealthEosinophils (Bld) [#/Vol]0.37 10*3/uL OhioHealthEosinophils/100 WBC (Bld)4.7 %[facility] Berger HospitalErythrocyte distribution width (RBC) [Entitic vol]18.2 %High11.6 - 14.8 %OhioHealthHematocrit (Bld) [Volume fraction]27.3 %Low41.0 - 53.0 %OhioHealthHemoglobin (Bld) [Mass/Vol]8.1 g/dLLow 13.5 - 17.5 g/dLOhioHealthImmature granulocytes (Bld) [#/Vol]0.03 10*3/uL OhioHealthImmature granulocytes/100 WBC (Bld)0.40 %OhioHealthComment on above: The IG parameter is the percentage of metamyelocytes, myelocytes and promyelocytes. An immature granulocyte count (IG) of 1% or more suggests the possibility of infection, an IG count of 3% is very likely related to an infection.Interpretation and review of laboratory resultsAbnormalOhioHealth Lymphocytes (Bld) [#/Vol]0.86 10*3/uLLowOhioHealthLymphocytes/100 WBC (Bld)11.0 %OhioHealthMCH (RBC) [Entitic mass]25.8 pgLow26.0 - 34.0 pgOhioHealthMCHC (RBC) [Mass/Vol]29.7 g/dLLow31.0 - 37.0 g/dLOhioHealthMCV (RBC) [Entitic vol]86.9 fL 80.0 - 100.0 fLOhioHealthMonocytes (Bld) [#/Vol]0.65 10*3/uLOhioHealth Monocytes/100 WBC (Bld)8.3 %OhioHealthNeutrophils (Bld) [#/Vol]5.89 10*3/uL OhioHealthNeutrophils/100 WBC (Bld)75.3 %OhioHealthNucleated RBC (Bld) [#/Vol] 0.00 10*3/uLOhioHealthNucleated RBC/100 WBC (Bld) [Ratio]0.0 %OhioHealthPlatelet mean volume (Bld) [Entitic vol]9.3 fLLow9.4 - 12.4 fLOhioHealthPlatelets (Bld) [#/Vol]262 10*3/uLOhioHealthRBC (Bld) [#/Vol]3.14 10*6/uLLowOhioHealthWBC (Bld) [#/Vol]7.82 10*3/uLOhioHealthOhioHealthComprehensive metabolic 2000 panelon 21-75-9969Urgneou [Mass/Vol]3.1 g/dLLow3.2 - 5.2 g/dLOhioHealthALP [Catalytic activity/Vol]158 U/LHigh40 - 150 U/LOhioHealthALT [Catalytic activity/Vol]11 U/L 0-50 U/LOhioHealthAnion gap [Moles/Vol]15 mmol/L10 - 20 mmol/LOhioHealthAST [Catalytic activity/Vol]16 U/L0-50 U/LOhioHealthBilirubin [Mass/Vol]0.3 mg/dL0.0 - 1.3 mg/dLOhioHealthCalcium [Mass/Vol]8.6 mg/dL8.4 - 10.2 mg/dLOhioHealth Chloride [Moles/Vol]104 mmol/L98 - 108 mmol/LOhioHealthCreatinine [Mass/Vol]5.33 mg/dLHigh0.50 - 1.30 mg/dLOhioHealthGFR/1.73 sq M.predicted CKD-EPI (S/P/Bld) [Vol rate/Area]12Low- PINFOhioHealthComment on above:Estimated GFR was calculated using the 2020 CKD-EPI creatinine equation.Glucose [Mass/Vol]173 mg/lIHqqr60 - 99 mg/dLOhioHealthHCO3 [Moles/Vol]21 mmol/L21 - 32 mmol/L OhioHealthPotassium [Moles/Vol]4.2 mmol/L3.5 - 5.1 mmol/LOhioHealthProtein [Mass/Vol]5.9 g/dLLow6.0 - 8.0 g/dLOhioHealthSodium [Moles/Vol]136 mmol/L135 - 145 mmol/LOhioHealthUrea nitrogen [Mass/Vol]45 mg/dLHigh8 - 25 mg/dLOhioHealth Urea nitrogen/Creatinine [Mass ratio]8.4 mg/mgLow10.0 - 20.0OhioHealthOhioHealth Laboratory Services has implemented the eGFR calculation approach that does not have a coefficient for race that conforms to the NKF-ASN Task Force Recommendations.[facility] Berger HospitalEchocardiogram complete w contrastOrdered By: Rui Vasquez on 98-52-0196Hpwlgw valve area2.03578whZeztNuhfqm Work Phone: AV mean [phone] Work Phone: AV peak gradient9.1636mmHgOhioHealth Work Phone: [phone] %[facility] Work Phone: [facility] Work Phone: Echocardiogram complete w contraston [id number] Info Name: LORENZO AMATO Age: 54 years : 1970 Gender: Male Ht: 175 cm Wt: 139 kg BSA: 2.67 m2 HR: 74 bpm BP: 163 / 83 mmHg Heart Rhythm: Sinus Rhythm Technical Quality: Technically difficult Exam Date: 06/16/2024 10:12 AM Patient Status: Inpatient Inspector Precision: Sherice Owens [facility] Exam Type: ECHOCARDIOGRAM COMPLETE W CONTRAST Study Info Indications I50.20 - Unspecified systolic (congestive) heart failure Referring Physician: GRACIE MILLER ; [id number] BMI: 45.34 kg/m2 Summary 1. Mildly enlarged LV chamber size. Systolic function is moderately reduced. There is global hypokinesis. Ejection fraction by Biplane Method of Discs of 32%. 2. The left ventricular diastolic function is grade I diastolic dysfunction, consistent with low or normal atrial pressures. 3. Right ventricular size and systolic function are normal. 4. There is no hemodynamically significant valve disease. 5. There is no pulmonary hypertension, estimated right ventricle systolic pressure is 13 mmHg. History/Risk Factors Hypertension: Yes Renal Disease: Yes Diabetes Mellitus: Type II Tobacco Use: Never Family History: Coronary Artery Disease Deep Vein Thrombosis (DVT): Acute History/Risk Factors History of pulmonary embolism, GERD, Obstructive sleep apena, Anemia. Prior Interventions PCI: Yes Date of PCI: 11/15/2018 Procedure(s): Complete two-dimensional, color flow and Doppler transthoracic echocardiogram is performed with contrast. Definity explained to patient. Patient verbalizes understanding and agrees to proceed. Definity 1.3ml/8.7ml normal sterile saline 2 ml total given IV over 30-60 seconds. Left Ventricle Mildly enlarged LV chamber size. Systolic function is moderately reduced. There is global hypokinesis. Ejection fraction by Biplane Method of Discs of 32%. The left ventricular diastolic function is grade I diastolic dysfunction, consistent with low or normal atrial pressures. Normal left ventricular mass. Right Ventricle Right ventricular size and systolic function are normal. Left Atria Left atrial chamber is normal with a left atrial volume index of 17 ml/m2 by BP MOD. Right Atria Right atrial chamber dimension is normal. Aortic Valve The aortic valve is trileaflet. There is no aortic valve sclerosis. There is no aortic valve stenosis. There is no aortic valve regurgitation. Pulmonic Valve The pulmonic valve is not well visualized. There is no pulmonic valve stenosis. There is no pulmonic regurgitation. Mitral Valve The mitral valve has normal leaflets. There is no mitral valve stenosis. There is trace mitral valve regurgitation. Tricuspid Valve The tricuspid valve leaflets are normal. There is no significant tricuspid valve stenosis. There is trace tricuspid valve regurgitation. There is no pulmonary hypertension, estimated right ventricle systolic pressure is 13 mmHg. Pericardium/Pleural There is no pericardial effusion. Inferior Vena Cava Normal inferior vena cava with <50% collapse upon inspiration consistent with elevated right atrial pressure. Aorta The aortic measurements are indexed to age and body surface area. The aortic root is normal measuring 2.6 cm with an index of 1.0 cm/m2. Wall Motion Scoring Wall Motion Scoring Index: 2.00 Left Ventricular Outflow Tract Name Value Normal LVOT 2D LVOT Diameter 2.0 cm LVOT Doppler LVOT Peak Velocity 1.0 m/s LVOT Peak Gradient 4 mmHg LVOT Mean Gradient 2 mmHg LVOT VTI 22 cm LVOT VTI/AV VTI Ratio 0.7 LVOT Stroke Volume 69 ml LVOT Stroke Index 25.85 ml/m2 Pulmonic Valve Name Value Normal RVOT Doppler RVOT Peak Velocity 61 cm/s RVOT Peak Gradient 2 mmHg RVOT Mean Gradient 1 mmHg RVOT VTI (more content not included)...XAVIER Salomon, Rui Limon MD - 06/16/2024 Patient Info Name: LORENZO AMATO Age: 54 years : 1970 Gender: Male Ht: 175 cm Wt: 139 kg BSA: 2.67 m2 HR: 74 bpm BP: 163 / 83 mmHg Heart Rhythm: Sinus Rhythm Technical Quality: Technically difficult Exam Date: 06/16/2024 10:12 AM Patient Status: Inpatient Inspector Precision: Sherice Owens [facility] Exam Type: ECHOCARDIOGRAM COMPLETE W CONTRAST Study Info Indications I50.20 - Unspecified systolic (congestive) heart failure Referring Physician: GRACIE MILLER ; [id number] BMI: 45.34 kg/m2 Summary 1. Mildly enlarged LV chamber size. Systolic function is moderately reduced. There is global hypokinesis. Ejection fraction by Biplane Method of Discs of 32%. 2. The left ventricular diastolic function is grade I diastolic dysfunction, consistent with low or normal atrial pressures. 3. Right ventricular size and systolic function are normal. 4. There is no hemodynamically significant valve disease. 5. There is no pulmonary hypertension, estimated right ventricle systolic pressure is 13 mmHg. History/Risk Factors Hypertension: Yes Renal Disease: Yes Diabetes Mellitus: Type II Tobacco Use: Never Family History: Coronary Artery Disease Deep Vein Thrombosis (DVT): Acute History/Risk Factors History of pulmonary embolism, GERD, Obstructive sleep apena, Anemia. Prior Interventions PCI: Yes Date of PCI: 11/15/2018 Procedure(s): Complete two-dimensional, color flow and Doppler transthoracic echocardiogram is performed with contrast. Definity explained to patient. Patient verbalizes understanding and agrees to proceed. Definity 1.3ml/8.7ml normal sterile saline 2 ml total given IV over 30-60 seconds. Left Ventricle Mildly enlarged LV chamber size. Systolic function is moderately reduced. There is global hypokinesis. Ejection fraction by Biplane Method of Discs of 32%. The left ventricular diastolic function is grade I diastolic dysfunction, consistent with low or normal atrial pressures. Normal left ventricular mass. Right Ventricle Right ventricular size and systolic function are normal. Left Atria Left atrial chamber is normal with a left atrial volume index of 17 ml/m2 by BP MOD. Right Atria Right atrial chamber dimension is normal. Aortic Valve The aortic valve is trileaflet. There is no aortic valve sclerosis. There is no aortic valve stenosis. There is no aortic valve regurgitation. Pulmonic Valve The pulmonic valve is not well visualized. There is no pulmonic valve stenosis. There is no pulmonic regurgitation. Mitral Valve The mitral valve has normal leaflets. There is no mitral valve stenosis. There is trace mitral valve regurgitation. Tricuspid Valve The tricuspid valve leaflets are normal. There is no significant tricuspid valve stenosis. There is trace tricuspid valve regurgitation. There is no pulmonary hypertension, estimated right ventricle systolic pressure is 13 mmHg. Pericardium/Pleural There is no pericardial effusion. Inferior Vena Cava Normal inferior vena cava with <50% collapse upon inspiration consistent with elevated right atrial pressure. Aorta The aortic measurements are indexed to age and body surface area. The aortic root is normal measuring 2.6 cm with an index of 1.0 cm/m2. Wall Motion Scoring Wall Motion Scoring Index: 2.00 Left Ventricular Outflow Tract Name Value Normal LVOT 2D LVOT Diameter 2.0 cm LVOT Doppler LVOT Peak Velocity 1.0 m/s LVOT Peak Gradient 4 mmHg LVOT Mean Gradient 2 mmHg LVOT VTI 22 cm LVOT VTI/AV VTI Ratio 0.7 LVOT Stroke Volume 69 ml LVOT Stroke Index 25.85 ml/m2 Pulmonic Valve Name Value Normal RVOT Doppler RVOT Peak Velocity 61 cm/s RVOT Peak Gradient 2 mmHg RVOT Mean Gradient 1 mmHg RVOT VTI 14 cm PV Doppler PV Peak Velocity 0.84 m/s PV Peak Gradient 3 mmHg PV Mean Gradient 2 mmHg PV VTI 18 cm Mitral Valve Name Value Normal MV Doppler MV Peak Velocity 1.39 m/s MV Peak Gradient 8 m (more content not included)...[facility] Hospitalgnesiumon [id number] [Mass/Vol]1.9 mg/dL1.6 - 2.4 mg/dLOhioHealthMagnesium [Mass/Vol]on [id number] and review of laboratory resultsNormal OhioHealthNo Panel Informationon [id number] and review of laboratory resultsAbnormalOhioHealthOhioHealthPhosphoruson [id number] [Mass/Vol]6.0 mg/dLHigh2.7 - 4.5 mg/dLOhioHealthVR Dialysis Cath Insert Tunnelon 06-16-2024 Tunneled dialysis catheter placement under fluoroscopic guidance. The catheter is available for immediate use. Moderate conscious sedation,20 minutes CONTACT INFORMATION: Dariusz Mdoi MD, PhD [facility], [place] [address] (O) [phone] (F) [phone] Workstation ID: [id number] Dariusz Tinsley MD - 06/16/2024 PROCEDURES: ULTRASOUND-GUIDED ACCESS OF RIGHT INTERNAL JUGULAR VEIN. TUNNELED DIALYSIS CATHETER PLACEMENT UNDER FLUOROSCOPIC GUIDANCE MODERATE CONSCIOUS SEDATION, 20 MINUTES HISTORY/CLINICAL DATA: End stage renal disease. The patient needs dialysis access. COMPARISON: None. CABIN SERVICE AGENT(S): Dariusz Modi MD, PhD ESTIMATED BLOOD LOSS: Scant COMPLICATIONS: No immediate MEDICATIONS: Versed 2.0 mg IV, Fentanyl 100 mcg IV, Lidocaine-1%, local. FLUOROSCOPY DOSE/TIME: Fluoroscopy time: 0.2 minutes Fluoroscopy dose: 6 mGy PROCEDURE: The risks, benefits and alternatives were explained to the patient. All of the patient's questions were answered. Both written and informed consent were obtained. Dose reduction techniques were achieved by using automated exposure control and/or adjustment of mAand/or kV according to patient size and/or use of iterative reconstruction technique. INTRAVENOUS MODERATE SEDATION AND MONITORING: With the patient in supine position on the interventional table, the right neck and chest were prepped and draped in the usual sterile fashion, a pause and confirm (time-out) was performed with all staff in the room before proceeding. Intravenous moderate sedation and monitoring was initiated and continued with divided doses of Versed and fentanyl with an independent observer. Continuous noninvasive cardiopulmonary and oxygen saturation monitoring demonstrated stable vital signs throughout the procedure with no evidence of complication. 20 minutes of conscious sedation was provided for the procedure. TUNNELED DIALYSIS CATHETER PLACEMENT: Ultrasound of the neck demonstrates a widely patent internal jugular vein. Under ultrasound guidance, a micropuncture needle was introduced into the right internal jugular vein. An ultrasound image was archived and stored in the patient's permanent electronic medical record. Over guidewire, the needle was exchanged for a peel-away sheath. A subcutaneous tunnel was created in the anterior chest wall. The tunneled catheter was then advanced through the subcutaneous tunnel and peel-away sheath. Under fluoroscopic guidance, the catheter tip was positioned in the proximal right atrium. The catheter was then sutured into place and flushed. The venotomy site was closed with Dermabond. A sterile dressing was applied. The patient toleratedthis procedure well without immediate complication. Catheter: 23 cm [facility] tunneled dialysis catheter IMPRESSION: Tunneled dialysis catheter placement under fluoroscopic guidance. The catheter is available for immediate use. Moderate conscious sedation,20 minutes CONTACT INFORMATION: Dariusz Modi MD, PhD [facility], [place] [address] (O) [phone] (F) [phone] Workstation ID: [id number] [facility] Berger HospitalOhioHealthRadiology Study observation (narrative)[facility] Auto Differentialon [id number] (Bld) [#/Vol]0.03 10*3/uLOhioHealth Basophils/100 WBC (Bld)0.3 %OhioHealthEosinophils (Bld) [#/Vol]0.36 10*3/uL OhioHealthEosinophils/100 WBC (Bld)3.8 %OhioKettering [facility] Soin Medical CenterErythrocyte distribution width (RBC) [Entitic vol]18.1 %High11.6 - 14.8 %OhioHealthHematocrit (Bld) [Volume fraction]29.2 %Low41.0 - 53.0 %OhioHealthHemoglobin (Bld) [Mass/Vol]8.6 g/dLLow 13.5 - 17.5 g/dLOhioHealthImmature granulocytes (Bld) [#/Vol]0.02 10*3/uL OhioHealthImmature granulocytes/100 WBC (Bld)0.20 %OhioHealthComment on above: The IG parameter is the percentage of metamyelocytes, myelocytes and promyelocytes. An immature granulocyte count (IG) of 1% or more suggests the possibility of infection, an IG count of 3% is very likely related to an infection.Interpretation and review of laboratory resultsAbnormalOhioHealth Lymphocytes (Bld) [#/Vol]0.72 10*3/uLLowOhioHealthLymphocytes/100 WBC (Bld)7.6 % OhioHealthMCH (RBC) [Entitic mass]26.1 pg26.0 - 34.0 pgOhioHealthMCHC (RBC) [Mass/Vol]29.5 g/dLLow31.0 - 37.0 g/dLOhioHealthMCV (RBC) [Entitic vol]88.5 fL 80.0 - 100.0 fLOhioHealthMonocytes (Bld) [#/Vol]0.94 10*3/uLHighOhioHealth Monocytes/100 WBC (Bld)9.9 %OhioHealthNeutrophils (Bld) [#/Vol]7.41 10*3/uLHigh OhioHealthNeutrophils/100 WBC (Bld)78.2 %OhioHealthNucleated RBC (Bld) [#/Vol] 0.00 10*3/uLOhioHealthNucleated RBC/100 WBC (Bld) [Ratio]0.0 %OhioHealthPlatelet mean volume (Bld) [Entitic vol]9.5 fL9.4 - 12.4 fLOhioHealthPlatelets (Bld) [#/Vol]294 10*3/uLOhioHealthRBC (Bld) [#/Vol]3.30 10*6/uLLowOhioHealthWBC (Bld) [#/Vol]9.48 10*3/uLOhioHealthOhioHealthCT Abdomen and Pelvis WO contraston [id number] Study observation (narrative)OhioHealthComprehensive metabolic 2000 panelon [id number] [Mass/Vol]3.6 g/dL3.2 - 5.2 g/dL OhioHealthALP [Catalytic activity/Vol]190 U/LHigh40 - 150 U/LOhioHealthALT [Catalytic activity/Vol]17 U/L0-50 U/LOhioHealthAnion gap [Moles/Vol]18 mmol/L10 - 20 mmol/LOhioHealthAST [Catalytic activity/Vol]21 U/L0-50 U/LOhioHealth Bilirubin [Mass/Vol]0.3 mg/dL0.0 - 1.3 mg/dLOhioHealthCalcium [Mass/Vol]8.9 mg/dL8.4 - 10.2 mg/dLOhioHealthChloride [Moles/Vol]103 mmol/L98 - 108 mmol/L OhioHealthCreatinine [Mass/Vol]5.10 mg/dLHigh0.50 - 1.30 mg/dLOhioHealthGFR/1.73 sq M.predicted CKD-EPI (S/P/Bld) [Vol rate/Area]13Low- PINFOhioHealthComment on above:Estimated GFR was calculated using the 2020 CKD-EPI creatinine equation. Glucose [Mass/Vol]193 mg/aPRzfi82 - 99 mg/dLOhioHealthHCO3 [Moles/Vol]22 mmol/L 21 - 32 mmol/LOhioHealthPotassium [Moles/Vol]5.0 mmol/L3.5 - 5.1 mmol/L OhioHealthProtein [Mass/Vol]7.2 g/dL6.0 - 8.0 g/dLOhioHealthSodium [Moles/Vol] 138 mmol/L135 - 145 mmol/LOhioHealthUrea nitrogen [Mass/Vol]44 mg/dLHigh8 - 25 mg/dLOhioHealthUrea nitrogen/Creatinine [Mass ratio]8.6 mg/mgLow10.0 - 20.0 [facility] has implemented the eGFR calculation approach that does not have a coefficient for race that conforms to the NKF-ASN Task Force Recommendations.OhioKettering Health [facility] Soin Medical CenterINR Coag (PPP) [Relative time]on 06-15-2024 Interpretation and review of laboratory resultsAbnormalOSalem Regional Medical CenterthPT Coag (PPP) [Time]15.6 sHighOhioHealthDuring the induction phase of oral anticoagulation, the INR may not reflect the anticoagulation status of the patient. Therapeutic ranges for INR's are: Most clinical situations: INR 2.0-3.0 Mechanical Prosthetic Valve: INR 2.5-3.5 Critical: INR >5.0OhioHealthOhioHealthMagnesiumon [id number] [Mass/Vol] 2.0 mg/dL1.6 - 2.4 mg/dLOhioHealthMagnesium [Mass/Vol]on 06-15-2024 Interpretation and review of laboratory resultsNormalOhioHealthNo Panel Informationon [id number] and review of laboratory resultsAbnormal OhioHealthOhioHealthPT/INRon [id number] Coag (PPP) [Relative time]1.2 {INR} High0.8 - 1.1OhioHealthPhosphoruson 97-48-9474Pfefknozp [Mass/Vol]5.9 mg/dLHigh 2.7 - 4.5 mg/dLOhioHealthCBCon 18-49-5732Lpzaiqjvlcp distribution width (RBC) [Ratio]17.3 %High12.1 - 15.2 %[facility] GALION HOSPITALHematocrit (Bld) [Volume fraction]35.4 %Low41.0 - 53.0 %[facility]AL[facility] HOSPITALHemoglobin (Bld) [Mass/Vol]11.2 g/dLLow13.5 - 17.5 g/dLBON [facility] HEALTHInterpretation and review of laboratory resultsAbnormalBON WADSWORTH-RITTMAN HOSPITALH (RBC) [Entitic mass]25.6 pgLow26.0 - 34.0 pgBON WADSWORTH-RITTMAN HOSPITALHC (RBC) [Mass/Vol]31.6 g/dL31.0 - 37.0 g/dLBON SECTRIHEALTH MCCULLOUGH-HYDE MEMORIAL HOSPITALV (RBC) [Entitic vol]80.8 fL80.0 - 100.0 fLBON SECJ.W. RUBY MEMORIAL HOSPITALPlatelet mean volume (Bld) [Entitic vol]9.0 fL 6.0 - 12.0 fLBON SECLOUISIA[facility]ITAL HEALTHPlatelets (Bld) [#/Vol]300 10*3/uLBON SECJ.W. RUBY MEMORIAL HOSPITALRBC (Bld) [#/Vol]4.38 10*6/uLLow4.50 - 5.90 m/uLBON GALION HOSPITALWBC other (Bld) [#/Vol]9.4BON SECJ.W. RUBY MEMORIAL HOSPITALBON SECJ.W. RUBY MEMORIAL HOSPITALRenal Function Panelon [id number] [Mass/Vol]3.5 g/dL3.5 - 5.2 g/dL B[facility]AL[facility] HOSPITALAnion gap [Moles/Vol]16 mmol/L9 - 17 mmol/LBON SECJ.W. RUBY MEMORIAL HOSPITALCalcium [Mass/Vol]9.6 mg/dL8.6 - 10.4 mg/dLB[facility] Chloride [Moles/Vol]102 mmol/L98 - 107 mmol/LBON GALION HOSPITALCO2 [Moles/Vol]17 mmol/LLow20 - 31 mmol/LBON [facility]AL[facility] HOSPITALCreatinine [Mass/Vol]4.8 mg/dLHigh0.7 - 1.2 mg/dLBON [facility] FSI InternationalGFR/1.73 sq M.predicted MDRD (S/P/Bld) [Vol rate/Area]14 mL/min/{1.73_m2}Low- PINFBON GALION HOSPITALComment on above: These results are not intended for use in patients <18 years of age. eGFR results are calculated without a race factor using the 2020 CKD-EPI equation. Careful clinical correlation is recommended, particularly when comparing to results calculated using previous equations. The CKD-EPI equation is less accurate in patients with extremes of muscle mass, extra-renal metabolism of creatine, excessive creatine ingestion, or following therapy that affects renal tubular secretion. Glucose [Mass/Vol]101 mg/eYKwwz70 - 99 mg/dLBON [facility] [employer] International Interpretation and review of laboratory resultsAbnormalBON [facility] [employer] International Phosphate [Mass/Vol]6.4 mg/dLHigh2.5 - 4.5 mg/dLBON [facility] [employer] Potassium [Moles/Vol]5.0 mmol/L3.7 - 5.3 mmol/LBON GALION HOSPITALSodium [Moles/Vol]135 mmol/L135 - 144 mmol/LBON [facility] FSI InternationalUrea nitrogen [Mass/Vol]5 mg/dLLow6 - 20 mg/dLBON [facility] FSI InternationalUrea nitrogen/Creatinine [Mass ratio]1 mg/mgLow9 - 20BON GALION HOSPITALBON GALION HOSPITALCBC with Auto Differentialon [id number] Eos #0.20BON [facility] HAR[facility]OR HOSPITALSynchro Absolute Lymph #1.30B[facility] HEALTHAbsolute [place] #0.70BON [facility]CL[facility] HEALTHBasophils (Bld) [#/Vol]0.00 10*3/uLBON [facility] HEALTHBasophils/100 WBC (Bld)0 %0 - 2 %[facility] HEALTHDifferential TypeYESBON SECOURS [facility]IST HOSPITALEosinophils/100 WBC (Bld)2 %0 - 5 %[facility] HOSPITALHematocrit (Bld) [Volume fraction]35.0 %Low41 - 53 %[facility]AL[facility] HOSPITALHemoglobin (Bld) [Mass/Vol]11.6 g/dLLow13.5 - 17.5 g/dLB[facility] Interpretation and review of laboratory resultsAbnormalB[facility] Lymphocytes/100 WBC (Bld)17 %13 - 44 %BON [facility]-RITTMAN HOSPITALH (RBC) [Entitic mass]28.0 pg26 - 34 pgBON SECTRIHEALTH MCCULLOUGH-HYDE MEMORIAL HOSPITALHC (RBC) [Mass/Vol]33.2 g/dL31 - 37 g/dLBON SECTRIHEALTH MCCULLOUGH-HYDE MEMORIAL HOSPITALV (RBC) [Entitic vol]84.6 fL80 - 100 fLBON GALION HOSPITALMonocytes/100 WBC (Bld)9 %5 - 9 %[facility] Platelet distribution width (Bld) [Ratio]15.6 %High12.1 - 15.2 %[facility] HOSPITALPlatelets (Bld) [#/Vol]230 10*3/uLBON [facility] HEALTHRBC (Bld) [#/Vol]4.13 10*6/uLLow4.5 - 5.9 m/uLBON GALION HOSPITALSegmented neutrophils/100 WBC (Bld)72 %39 - 75 %BON GALION HOSPITALSegs Absolute5.50 BON SECJ.W. RUBY MEMORIAL HOSPITALWBC (Bld) [#/Vol]7.6 10*3/uLBON SECOURS [facility] HOSPITALComprehensive Metabolic Panelon [id number] [Mass/Vol] 3.5 g/dL3.5 - 5.2 g/dLBON GALION HOSPITALALP [Catalytic activity/Vol]118 U/L40 - 129 U/LBON SECOURS [employer] HEALTHALT [Catalytic activity/Vol]18 U/L5 - 41 U/LBON SECOURS MERCSynchroAnion gap [Moles/Vol]11 mmol/L9 - 17 mmol/LBON SECOURS MERCY HEALTHAST [Catalytic activity/Vol]18 U/LNINF - 40 U/LBON SECOURS viavooBilirubin [Mass/Vol]0.3 mg/dL0.3 - 1.2 mg/dLBON SECOURS viavoo Calcium [Mass/Vol]9.6 mg/dL8.6 - 10.4 mg/dLBON [facility]RS MERCY HEALTHChloride [Moles/Vol]102 mmol/L98 - 107 mmol/LBON SECOURS [employer] HEALTHCO2 [Moles/Vol]21 mmol/L20 - 31 mmol/LBON SECOURS viavooCreatinine [Mass/Vol]3.55 mg/dLHigh 0.70 - 1.20 mg/dLBON SECOURS viavooGFR/1.73 sq M.predicted MDRD (S/P/Bld) [Vol rate/Area]20 mL/min/{1.73_m2}Low- PINFBON [facility] MEDICAL CENTERYozioComment on above: These results are not intended for use in patients <18 years of age. eGFR results are calculated without a race factor using the 2020 CKD-EPI equation. Careful clinical correlation is recommended, particularly when comparing to results calculated using previous equations. The CKD-EPI equation is less accurate in patients with extremes of muscle mass, extra-renal metabolism of creatine, excessive creatine ingestion, or following therapy that affects renal tubular secretion. Glucose [Mass/Vol]211 mg/mSPgtz17 - 99 mg/dLBON D[facility] WESTG[facility] MEDICAL CENTERYozio Interpretation and review of laboratory resultsAbnormalBON SECOURS viavoo Potassium [Moles/Vol]4.7 mmol/L3.7 - 5.3 mmol/LBON SECOURS [employer] HEALTHProtein [Mass/Vol]6.9 g/dL6.4 - 8.3 g/dLBON SECYozioSodium [Moles/Vol]134 mmol/QXgi063 - 144 mmol/LBON SECOURS viavooUrea nitrogen [Mass/Vol]46 mg/dLHigh6 - 20 mg/dLBON SECYozioUrea nitrogen/Creatinine (Bld) [Mass ratio]139 - 20BON [facility] MEDICAL CENTERLuzern Solutions [facility] CENTERMagnesiumon [id number] [Mass/Vol]1.9 mg/dL1.6 - 2.6 mg/dLBON D[facility]ST[facility] MEDICAL CENTERLuzern Solutions [facility]ENTERNo Panel Informationon [id number] [facility] MED[facility] CENTERCentrePath [facility]ULTMAN HOSPITALTales2Go [facility] CENTERPatient Fasting?on [id number] Fasting? yesBON BAY HARBOR HOSPITALTales2Go [facility] CENTERBON BAY HARBOR HOSPITALTales2Go [facility] CENTERTSH with Reflexon 03-22-2023 TSH Qn3.43 m[IU]/LBON [facility] WEST[facility] MEDICAL CENTERLuzern Solutions [facility] CENTERXR CHEST (2 VW)on 03-22-2023 No acute cardiopulmonary abnormality. Dorsal degenerative changes are present. [facility] CONSOLIDATEDEXAM: XR CHEST (2 VW) HISTORY: Hypertension I 10. Coronary artery disease I 25.10 COMPARISON: Chest 03/17/2022 TECHNIQUE: PA and lateral views with 3 images FINDINGS: Heart size satisfactory. No mediastinal widening seen. Central vasculature symmetrical and satisfactory. Lung paula are expanded without infiltration, consolidation, edema, or effusion. Dorsal arthrosis and anterior longitudinal ligament calcification is present. [facility] Dunia Kulkarni, DO - 03/22/2023 EXAM: XR CHEST (2 VW) HISTORY: Hypertension I 10. Coronary artery disease I 25.10 COMPARISON: Chest 03/17/2022 TECHNIQUE: PA and lateral views with 3 images FINDINGS: Heart size satisfactory. No mediastinal widening seen. Central vasculature symmetrical and satisfactory. Lung paula are expanded without infiltration, consolidation, edema, or effusion. Dorsal arthrosis and anterior longitudinal ligament calcification is present. IMPRESSION: No acute cardiopulmonary abnormality. Dorsal degenerative changes are present. [employer] Work Phone: radiology Study observation (narrative)[employer] Work Phone: XR CHEST (2 VW)Ordered By: Dunia Carreon on 03-22-2023 [employer] Work Phone: cbc with Auto Differentialon [id number] Eos # 0.20BON ProvenAbsolute Lymph #1.30BON ProvenAbsolute [place] #0.50B[facility] HEALTHBasophils (Bld) [#/Vol]0.00 10*3/uLBON [facility] HEALTHBasophils/100 WBC (Bld)0 %0 - 2 %[facility] HEALTH Differential TypeYESBON SECOURS [facility]IST HOSPITALEosinophils/100 WBC (Bld)2 %0 - 5 % B[facility]IST HOSPITALHematocrit (Bld) [Volume fraction]37.2 %Low41 - 53 %BON SECJ.W. RUBY MEMORIAL HOSPITALHemoglobin (Bld) [Mass/Vol]12.4 g/dLLow13.5 - 17.5 g/dLBON [facility] HEALTHInterpretation and review of laboratory resultsAbnormalBON SECOURS [facility] HOSPITALLymphocytes/100 WBC (Bld)12 %Low13 - 44 %BON SECTRIHEALTH MCCULLOUGH-HYDE MEMORIAL HOSPITALH (RBC) [Entitic mass]28.2 pg26 - 34 pgBON SECOURS [facility] HOSPITALHC (RBC) [Mass/Vol]33.3 g/dL31 - 37 g/dLBON SECTRIHEALTH MCCULLOUGH-HYDE MEMORIAL HOSPITALV (RBC) [Entitic vol]84.6 fL80 - 100 fLBON SECOURS [facility] HOSPITALMonocytes/100 WBC (Bld)5 %5 - 9 % B[facility]CL[facility]IA[facility] HEALTHPlatelet distribution width (Bld) [Ratio]15.3 %High12.1 - 15.2 %[facility] HEALTHPlatelets (Bld) [#/Vol]286 10*3/uLBON [facility] HEALTHRBC (Bld) [#/Vol]4.40 10*6/uLLow4.5 - 5.9 m/uLBON SECJ.W. RUBY MEMORIAL HOSPITALSegmented neutrophils/100 WBC (Bld)81 %High39 - 75 %[facility] HEALTHSegs Absolute8.70HighBON [facility] HEALTHWBC (Bld) [#/Vol]10.7 10*3/uL [facility] HEALTHComprehensive Metabolic Panelon [id number] [Mass/Vol]3.7 g/dL3.5 - 5.2 g/dLBON [facility] HEALTHALP [Catalytic activity/Vol]125 U/L40 - 129 U/LBON SECOURS Cord[employer]Y HEALTHALT [Catalytic activity/Vol]17 U/L5 - 41 U/LBON [facility] CordiumY HEALTHAnion gap [Moles/Vol]13 mmol/L9 - 17 mmol/LBON SEC[facility] CordiumY HEALTHAST [Catalytic activity/Vol]19 U/LNINF - 40 U/LBON SEC[facility] [employer] HEALTHBilirubin [Mass/Vol]0.5 mg/dL0.3 - 1.2 mg/dLBON SECOURS CordiumY HEALTHCalcium [Mass/Vol]9.3 mg/dL8.6 - 10.4 mg/dLBON [facility]RS [facility]CY HEALTHChloride [Moles/Vol]97 mmol/LLow98 - 107 mmol/LBON SEC[facility] [employer] HEALTHCO2 [Moles/Vol]22 mmol/L20 - 31 mmol/LBON [facility] [employer] HEALTHCreatinine [Mass/Vol]3.26 mg/dLHigh0.70 - 1.20 mg/dLBON SECOURS viavooGFR/1.73 sq M.predicted MDRD (S/P/Bld) [Vol rate/Area]22 mL/min/{1.73_m2}Low- PINFBON [facility] CENTERYozioComment on above: These results are not intended for use in patients <18 years of age. eGFR results are calculated without a race factor using the 2020 CKD-EPI equation. Careful clinical correlation is recommended, particularly when comparing to results calculated using previous equations. The CKD-EPI equation is less accurate in patients with extremes of muscle mass, extra-renal metabolism of creatine, excessive creatine ingestion, or following therapy that affects renal tubular secretion. Glucose [Mass/Vol]231 mg/gMDgep75 - 99 mg/dLBON [facility]ST[facility] CENTERYozio Interpretation and review of laboratory resultsAbnormalBON SECOURS viavoo Potassium [Moles/Vol]5.0 mmol/L3.7 - 5.3 mmol/LBON SECOU[facility] [employer] HEALTHProtein [Mass/Vol]6.9 g/dL6.4 - 8.3 g/dLBON SECYozioSodium [Moles/Vol]132 mmol/TOfn864 - 144 mmol/LBON [facility] viavooUrea nitrogen [Mass/Vol]35 mg/dLHigh6 - 20 mg/dLBON SECOURS viavooUrea nitrogen/Creatinine (Bld) [Mass ratio]119 - 20BON [facility] CENTERPTH, Intact on [id number] and review of laboratory resultsAbnormCarilion [facility] Jicpeu054.1 pg/mALftt65.0 - 72.0 pg/mLBON [facility] Comment on above:SAMPLES FROM PATIENTS ROUTINELY RECEIVING HIGH DOSE BIOTIN THERAPY MAY SHOW FALSELY DEPRESSED RESULTS. ADDITIONAL INFORMATION MAY BE REQUIRED FOR DIAGNOSIS. [facility]ITALCreatinine, Random Urineon [id number], Ur55.2 mg/dL39.0 - 259.0 mg/dLBON [facility] Hemoglobin and Hematocriton 25-12-9494Mtzpkysklw (Bld) [Volume fraction]38.0 % Low41 - 53 %[facility]OS[facility]ITALHemoglobin (Bld) [Mass/Vol]12.5 g/dLLow13.5 - 17.5 g/dLBON GALION HOSPITALInterpretation and review of laboratory resultsAbnormalCENTRA HEALTHMagnesiumon [id number] [Mass/Vol]2.0 mg/dL1.6 - 2.6 mg/dLBON GALION HOSPITALNo Panel Informationon [id number] GALION HOSPITALProtein, urine, randomon [id number] (U) [Mass/Vol]517 mg/dLBON GALION HOSPITALComment on above:No normal range established.[facility]ITALRenal Function Panelon [id number] [Mass/Vol]3.5 g/dL3.5 - 5.2 g/dLBON GALION HOSPITALAnion gap [Moles/Vol]10 mmol/L9 - 17 mmol/LBON GALION HOSPITALCalcium [Mass/Vol] 9.0 mg/dL8.6 - 10.4 mg/dLBON GALION HOSPITALChloride [Moles/Vol]98 mmol/L98 - 107 mmol/LBON GALION HOSPITALCO2 [Moles/Vol]25 mmol/L20 - 31 mmol/LBON [facility] HEALTHCreatinine [Mass/Vol]3.11 mg/dLHigh0.70 - 1.20 mg/dLBON [facility] MapMyFitness HEALTHGFR/1.73 sq M.predicted MDRD (S/P/Bld) [Vol rate/Area]23 mL/min/{1.73_m2}Low- PINFBON [facility] viavooComment on above: Effective Aug 17, 2022 These results are not intended for use in patients <18 years of age. eGFR results are calculated without a race factor using the 2020 CKD-EPI equation. Careful clinical correlation is recommended, particularly when comparing to results calculated using previous equations. The CKD-EPI equation is less accurate in patients with extremes of muscle mass, extra-renal metabolism of creatine, excessive creatine ingestion, or following therapy that affects renal tubular secretion. Glucose [Mass/Vol]234 mg/uXAydg23 - 99 mg/dLBON BAY HARBOR HOSPITALSynchro Interpretation and review of laboratory resultsAbnormalBON BAY HARBOR HOSPITALSynchro Phosphate [Mass/Vol]3.9 mg/dL2.5 - 4.5 mg/dLBON SEC[facility] MapMyFitness HEALTHPotassium [Moles/Vol]4.9 mmol/L3.7 - 5.3 mmol/LBON SEC[facility] MapMyFitness HEALTHSodium [Moles/Vol] 133 mmol/WUyb726 - 144 mmol/LBON SECOURS AULTMAN HOSPITALTales2Go HEALTHUrea nitrogen (BldV) [Mass/Vol]27 mg/dLHigh6 - 20 mg/dLBON SECYozioUrea nitrogen/Creatinine (Bld) [Mass ratio]99 - 20BON ProvenBasic Metabolic Panelon [id number] gap [Moles/Vol]12 mmol/L9 - 17 mmol/LBON SECLuzern Solutions HEALTHCalcium [Mass/Vol]8.8 mg/dL8.6 - 10.4 mg/dLBON [facility] MapMyFitness HEALTHChloride [Moles/Vol]100 mmol/L98 - 107 mmol/LBON [facility] MapMyFitness HEALTHCO2 [Moles/Vol]20 mmol/L20 - 31 mmol/LB[facility] MapMyFitness HEALTHCreatinine [Mass/Vol] 3.02 mg/dLHigh0.70 - 1.20 mg/dLBON SECLuzern Solutions HEALTHGFR/1.73 sq M.predicted MDRD (S/P/Bld) [Vol rate/Area]24 mL/min/{1.73_m2}Low- PINFBON SECYozioComment on above: Effective Aug 17, 2022 These results are not intended for use in patients <18 years of age. eGFR results are calculated without a race factor using the 2020 CKD-EPI equation. Careful clinical correlation is recommended, particularly when comparing to results calculated using previous equations. The CKD-EPI equation is less accurate in patients with extremes of muscle mass, extra-renal metabolism of creatine, excessive creatine ingestion, or following therapy that affects renal tubular secretion. Glucose [Mass/Vol]260 mg/hTSjhb29 - 99 mg/dLBON Proven Interpretation and review of laboratory resultsAbnormalBON [facility] MED[facility] CENTERYozio Potassium [Moles/Vol]4.7 mmol/L3.7 - 5.3 mmol/LBON SECYozioSodium [Moles/Vol]132 mmol/KZmy442 - 144 mmol/LBON SECYozioUrea nitrogen (BldV) [Mass/Vol]32 mg/dLHigh6 - 20 mg/dLBON SECYozioUrea nitrogen/Creatinine (Bld) [Mass ratio]119 - 20BON [facility] viavooBON [facility]ST[facility] MEDICAL CENTERLuzern Solutions [facility] CENTERCBC with Auto Differentialon [id number] Eos #0.20[facility] FSI InternationalAbsolute Lymph #1.40B[facility] HEALTHAbsolute [place] # 0.60B[facility] viavooBasophils (Bld) [#/Vol]0.00 10*3/uLBON SECOURS MERCTales2Go HEALTHBasophils/100 WBC (Bld)0 %0 - 2 %[facility] CordiumY HEALTHDifferential TypeYESBON SECOU[facility] MapMyFitness HEALTHEosinophils/100 WBC (Bld)2 %0 - 5 %[facility] viavooHematocrit (Bld) [Volume fraction]40.5 %Low41 - 53 %[facility] CordiumY HEALTHHemoglobin (Bld) [Mass/Vol]13.6 g/dL13.5 - 17.5 g/dLBON SECLuzern Solutions HEALTHInterpretation and review of laboratory resultsAbnormalBON SECYozioLymphocytes/100 WBC (Bld)16 %13 - 44 %[facility]ULT[facility] HOSPITALY HEALTHMCH (RBC) [Entitic mass]29.0 pg26 - 34 pgBON SECOURS AULTMAN HOSPITALY HEALTHMCHC (RBC) [Mass/Vol]33.7 g/dL31 - 37 g/dLBON SECOURS AULTMAN HOSPITALY HEALTHMCV (RBC) [Entitic vol] 86.2 fL80 - 100 fLBON [facility]OU[facility] HEALTHMonocytes/100 WBC (Bld)7 %5 - 9 %B[facility]ULT[facility] HOSPITALY HEALTHPlatelet distribution width (Bld) [Ratio]14.3 %12.1 - 15.2 % [facility]OSPITALY HEALTHPlatelets (Bld) [#/Vol]273 10*3/uLBON [facility] HEALTHRBC (Bld) [#/Vol]4.71 10*6/uL4.5 - 5.9 m/uLBON [facility]CL[facility] HEALTH Segmented neutrophils/100 WBC (Bld)75 %39 - 75 %[facility]ITALY HEALTHSegs Absolute6.70HighBON [facility] HEALTHWBC (Bld) [#/Vol]9.0 10*3/uLBON [facility] HEALTHB[facility] HEALTHComprehensive Metabolic Panelon 08-11-2022 Albumin [Mass/Vol]3.3 g/dLLow3.5 - 5.2 g/dLBON SECOURS AULTMAN HOSPITALY HEALTHALP (Bld) [Catalytic activity/Vol]121 U/L40 - 129 U/LBON SEC[facility]OSPITALY HEALTHALT [Catalytic activity/Vol]19 U/L5 - 41 U/LBON [facility]ITALY HEALTHAnion gap [Moles/Vol]13 mmol/L9 - 17 mmol/LBON [facility]ITALY HEALTHAST [Catalytic activity/Vol]18 U/LNINF - 40 U/LBON [facility]ITALY HEALTHBilirubin [Mass/Vol]0.3 mg/dL0.3 - 1.2 mg/dLBON [facility] HEALTHCalcium [Mass/Vol]9.1 mg/dL8.6 - 10.4 mg/dLBON [facility] HEALTHChloride [Moles/Vol]100 mmol/L98 - 107 mmol/L B[facility]ITALY HEALTHCO2 [Moles/Vol]21 mmol/L20 - 31 mmol/LBON [facility] HEALTHCreatinine [Mass/Vol]2.85 mg/dLHigh0.7 - 1.2 mg/dLBON [facility] Free PSA/Total PSA [Mass fraction]6.8 g/dL6.4 - 8.3 g/dLBON [facility] GFR Krfsndgg35 mL/ahaQcz13 - PINF mL/minCARILION STONEWALL JACKSON HOSPITALGFR Non- Etofubih61 mL/vesTgu90 - PINF mL/minCARILION STONEWALL JACKSON HOSPITALGFR/1.73 sq M.predicted MDRD (S/P/Bld) [Vol rate/Area][facility]OSPITALComment on above:Average GFR for 50-59 years old: 93 mL/min/1.73sq m Chronic Kidney Disease: <60 mL/min/1.73sq m Kidney failure: <15 mL/min/1.73sq m eGFR calculated using average adult body mass. Additional eGFR calculator available at: http://www.Last Guide/multiple_crcl_2011.htm Glucose [Mass/Vol]165 mg/pTAuvn52 - 99 mg/dLBON [facility] Interpretation and review of laboratory resultsAbnormalCARILION [facility] Potassium [Moles/Vol]4.5 mmol/L3.7 - 5.3 mmol/LBON GALION HOSPITALSodium [Moles/Vol]134 mmol/SLzc208 - 144 mmol/LBON GALION HOSPITALUrea nitrogen (BldV) [Mass/Vol]29 mg/dLHigh6 - 20 mg/dLBON GALION HOSPITALUrea nitrogen/Creatinine (Bld) [Mass ratio]109 - 20BON [facility]ARE CENTERLipid Panelon [id number] [Mass/Vol]142 mg/dLNINF - 200 mg/dLBON GALION HOSPITALComment on above: Cholesterol Guidelines: <200 Desirable 200-240 Borderline >240 Undesirable Cholesterol in HDL [Mass/Vol]34 mg/dLLow40 - PINF mg/dLBON [facility] Comment on above: HDL Guidelines: <40 Undesirable 40-59 Borderline >59 Desirable Cholesterol in LDL [Mass/Vol]65 mg/dL0 - 130 mg/dLBON Proven Comment on above: LDL Guidelines: <100 Desirable 100-129 Near to/above Desirable 130-159 Borderline >159 Undesirable Direct (measured) LDL and calculated LDL are not interchangeable tests. Cholesterol.total/Cholesterol in HDL [Mass ratio]4.2 {ratio}NINF - 5BON [facility] CENTERYozioInterpretation and review of laboratory resultsAbnormMiddletown HospitalYozioTriglyceride [Mass/Vol]216 mg/dLHighNINF - 150 mg/dLBON [facility]ENTERYozioComment on above: Triglyceride Guidelines: <150 Desirable 150-199 Borderline 200-499 High >499 Very high Based on AHA Guidelines for fasting triglyceride, August 2012. [facility] ProvenBasic Metabolic Panel, Fastingon [id number] gap [Moles/Vol]10 mmol/L9 - 17 mmol/LBON [facility] CENTERYozioCalcium [Mass/Vol]9.1 mg/dL8.6 - 10.4 mg/dLBON [facility] CENTERYozioChloride [Moles/Vol]103 mmol/L98 - 107 mmol/LBON [facility] CENTERYozioCO2 [Moles/Vol]23 mmol/L20 - 31 mmol/LBON [facility] CENTERYozioCreatinine [Mass/Vol]2.65 mg/dLHigh0.7 - 1.2 mg/dLBON [facility] CENTERYozioGFR Boljuzhl45 mL/kimXec50 - PINF mL/minHONORHE[facility] ProvenGFR Non- Xggpiafe01 mL/zwrZdn81 - PINF mL/minBON ProvenGFR/1.73 sq M.predicted MDRD (S/P/Bld) [Vol rate/Area][facility] ProvenComment on above:Average GFR for 50-59 years old: 93 mL/min/1.73sq m Chronic Kidney Disease: <60 mL/min/1.73sq m Kidney failure: <15 mL/min/1.73sq m eGFR calculated using average adult body mass. Additional eGFR calculator available at: http://www.Last Guide/multiple_crcl_2012.htm Glucose [Mass/Vol]220 mg/oDWwmr34 - 99 mg/dLBON Proven Interpretation and review of laboratory resultsAbnormalCARILION [facility] Potassium [Moles/Vol]4.5 mmol/L3.7 - 5.3 mmol/LBON GALION HOSPITALSodium [Moles/Vol]136 mmol/L135 - 144 mmol/LBON GALION HOSPITALUrea nitrogen (BldV) [Mass/Vol]31 mg/dLHigh6 - 20 mg/dLBON GALION HOSPITALUrea nitrogen/Creatinine (Bld) [Mass ratio]129 - 20CENTRA HEALTHVitamin D 25 Hydroxyon 48-40-6383Gtugeskkqmgsuo and review of laboratory resultsAbnormChildren's Hospital of Richmond at VCUVit D, 25-Nknutxl67.4 ng/mL Low>29.9BInova Fair Oaks Hospitalment on above: Reference Range: Vitamin D status Range Deficiency <20 ng/mL Mild Deficiency 20-30 ng/mL Sufficiency 30-100 ng/mL Toxicity >100 ng/mL [facility]OSPITALHemoglobin and Hematocriton 71-52-7202Tyydrkhlka (Bld) [Volume fraction]40.0 %Low41 - 53 %[facility]OSPITALHemoglobin (Bld) [Mass/Vol]13.3 g/dLLow13.5 - 17.5 g/dLBON GALION HOSPITALInterpretation and review of laboratory resultsAbnormalCENTRA HEALTHMagnesiumon [id number] [Mass/Vol]1.8 mg/dL1.6 - 2.6 mg/dLBON GALION HOSPITALNo Panel Informationon [id number] [facility] PTH, [place] 58-61-0443Sec Rtdbvh84.29 pg/mL15.0 - 65.0 pg/mLCARILION STONEWALL JACKSON HOSPITALComment on above:SAMPLES FROM PATIENTS ROUTINELY RECEIVING HIGH DOSE BIOTIN THERAPY MAY SHOW FALSELY DEPRESSED RESULTS. ADDITIONAL INFORMATION MAY BE REQUIRED FOR DIAGNOSIS. [facility]OSPITALRenal Function Panelon [id number] [Mass/Vol]3.6 g/dL3.5 - 5.2 g/dLBON GALION HOSPITALAnion gap [Moles/Vol]12 mmol/L9 - 17 mmol/LBON GALION HOSPITALCalcium [Mass/Vol]9.5 mg/dL8.6 - 10.4 mg/dLBON [facility] HEALTHChloride [Moles/Vol]99 mmol/L98 - 107 mmol/LBON GALION HOSPITALCO2 [Moles/Vol]21 mmol/L20 - 31 mmol/LB[facility] Creatinine [Mass/Vol]2.59 mg/dLHigh0.70 - 1.20 mg/dLBON GALION HOSPITALGFR Hyvyiyxi07 mL/minLow>60BON SECLOUISIANA [facility]ART [facility] HEALTHGFR Non- 26 mL/minLow>60BON GALION HOSPITALGFR/1.73 sq M.predicted MDRD (S/P/Bld) [Vol rate/Area][facility]OSPITALComment on above:Average GFR for 50-59 years old: 93 mL/min/1.73sq m Chronic Kidney Disease: <60 mL/min/1.73sq m Kidney failure: <15 mL/min/1.73sq m eGFR calculated using average adult body mass. Additional eGFR calculator available at: http://www.Last Guide/multiple_crcl_2012.htm Glucose [Mass/Vol]299 mg/iUAcyl03 - 99 mg/dLBON [facility] Interpretation and review of laboratory resultsAbnormalBON [facility] Phosphate [Mass/Vol]4.2 mg/dL2.5 - 4.5 mg/dLBON GALION HOSPITALPotassium [Moles/Vol]4.8 mmol/L3.7 - 5.3 mmol/LBON GALION HOSPITALSodium [Moles/Vol] 132 mmol/DJot595 - 144 mmol/LBON GALION HOSPITALUrea nitrogen (BldV) [Mass/Vol]32 mg/dLHigh6 - 20 mg/dLBON GALION HOSPITALUrea nitrogen/Creatinine (Bld) [Mass ratio]12CAR[facility] HOSPITALLipid Panelon 24-20-7910Lnflkadtugt [Mass/Vol]168 mg/dL<200Mercy HealthComment on above: Cholesterol Guidelines: <200 Desirable 200-240 Borderline >240 Undesirable Cholesterol in HDL [Mass/Vol]34 mg/dLLow>40Mercy HealthComment on above: HDL Guidelines: <40 Undesirable 40-59 Borderline >59 Desirable Cholesterol in LDL [Mass/Vol]93 mg/dL0 - 130 mg/dLKing'S Daughters Medical Center OhioComment on above: LDL Guidelines: <100 Desirable 100-129 Near to/above Desirable 130-159 Borderline >159 Undesirable Direct (measured) LDL and calculated LDL are not interchangeable tests. Cholesterol.total/Cholesterol in HDL [Mass ratio]4.9 {ratio}<5[facility] [place] Interpretation and review of laboratory resultsAbnormalKing'S Daughters Medical Center OhioTriglyceride [Mass/Vol]205 mg/dLHigh<150Mercy HealthComment on above: Triglyceride Guidelines: <150 Desirable 150-199 Borderline 200-499 High >499 Very high Based on AHA Guidelines for fasting triglyceride, August 2012. [facility] OhioBUN & Creatinineon 59-82-2561Ugnexbhwcz [Mass/Vol]2.51 mg/dLHigh0.70 - 1.20 mg/dLHolzer Medical Center – Jackson HealthGFR Cmaewyrz44 mL/minLow>60Mercy HealthGFR Non- Qxkbjiph62 mL/minLow>60Mercy HealthGFR/1.73 sq M.predicted MDRD (S/P/Bld) [Vol rate/Area][facility] OhioComment on above:Average GFR for 50-59 years old: 93 mL/min/1.73sq m Chronic Kidney Disease: <60 mL/min/1.73sq m Kidney failure: <15 mL/min/1.73sq m eGFR calculated using average adult body mass. Additional eGFR calculator available at: http://www.Last Guide/multiple_crcl_2011.htm Interpretation and review of laboratory resultsAbnormAdventHealth Hendersonville HealthUrea nitrogen (BldV) [Mass/Vol]33 mg/dLHigh6 - 20 mg/dLKing'S Daughters Medical Center OhioBasic Metabolic Panel, Fastingon 13-63-3700Fwbpd gap [Moles/Vol]13 mmol/L9 - 17 mmol/LMercy Health Calcium [Mass/Vol]9.4 mg/dL8.6 - 10.4 mg/dLHolzer Medical Center – Jackson HealthChloride [Moles/Vol]100 mmol/L98 - 107 mmol/LMercy HealthCO2 [Moles/Vol]23 mmol/L20 - 31 mmol/LMercy HealthCreatinine [Mass/Vol]2.51 mg/dLHigh0.70 - 1.20 mg/dLMercy HealthGFR Nnwofqvp12 mL/minLow>60Mercy HealthGFR Non- Qqsrgvtt22 mL/minLow >60Mercy HealthGFR/1.73 sq M.predicted MDRD (S/P/Bld) [Vol rate/Area][facility] OhioComment on above:Average GFR for 50-59 years old: 93 mL/min/1.73sq m Chronic Kidney Disease: <60 mL/min/1.73sq m Kidney failure: <15 mL/min/1.73sq m eGFR calculated using average adult body mass. Additional eGFR calculator available at: http://www.Last Guide/multiple_crcl_2011.htm Glucose [Mass/Vol]204 mg/dGZpjf48 - 99 mg/dLHolzer Medical Center – Jackson HealthInterpretation and review of laboratory resultsAbnormalHolzer Medical Center – Jackson HealthPotassium [Moles/Vol]5.3 mmol/L 3.7 - 5.3 mmol/LMercy HealthSodium [Moles/Vol]136 mmol/L135 - 144 mmol/LMercy HealthUrea nitrogen (BldV) [Mass/Vol]33 mg/dLHigh6 - 20 mg/dLMer HealthUrea nitrogen/Creatinine (Bld) [Mass ratio]13[facility] Auto Differentialon [id number] Eos #0.20Mer HealthAbsolute Lymph #1.00Mer HealthAbsolute [place] #0.60Mercy HealthBasophils (Bld) [#/Vol]0.00 10*3/uLMer HealthBasophils/100 WBC (Bld)0 %0 - 2 %[facility] HealthDifferential TypeYESMercy HealthEosinophils/100 WBC (Bld)2 %0 - 5 %[facility] HealthHematocrit (Bld) [Volume fraction]42.8 %41 - 53 %[facility] OhioHemoglobin.gastrointestinal spec 1 Ql (Stl) 14.1 g/dL13.5 - 17.5 g/dLKing'S Daughters Medical Center OhioInterpretation and review of laboratory resultsAbnormKettering Health Behavioral Medical CenterLymphocytes/100 WBC (Bld)13 %13 - 44 %[facility] OhioMCH (RBC) [Entitic mass]28.5 pg26 - 34 pgSouthwest General Health CenterHC (RBC) [Mass/Vol]33.0 g/dL 31 - 37 g/dLSouthwest General Health CenterV (RBC) [Entitic vol]86.3 fL80 - 100 fLKing'S Daughters Medical Center [place] Monocytes/100 WBC (Bld)7 %5 - 9 %[facility] OhioPlatelet distribution width (Bld) [Ratio]15.5 %High12.1 - 15.2 %[facility] HealthPlatelets (Bld) [#/Vol]240 10*3/uL [facility] HealthRBC (Bld) [#/Vol]4.95 10*6/uL4.5 - 5.9 m/uLKing'S Daughters Medical Center OhioSegmented neutrophils/100 WBC (Bld)78 %High39 - 75 %[facility] OhioSegs Absolute6.30[facility] OhioWBC (Bld) [#/Vol]8.1 10*3/uLAurora Sheboygan Memorial Medical CenterCBC with Auto Differentialon [id number] Eos #0.20[facility] OhioAbsolute Lymph #1.00[facility] OhioAbsolute [place] #0.60[facility] OhioBasophils (Bld) [#/Vol]0.00 10*3/uLKing'S Daughters Medical Center OhioBasophils/100 WBC (Bld)0 %0 - 2 %[facility] OhioDifferential TypeYESMerc HealthEosinophils/100 WBC (Bld)2 %0 - 5 %[facility] OhioHematocrit (Bld) [Volume fraction]42.8 %41 - 53 %[facility] OhioHemoglobin.gastrointestinal spec 1 Ql (Stl) 14.1 g/dL13.5 - 17.5 g/dLKing'S Daughters Medical Center OhioInterpretation and review of laboratory resultsAbnormalKing'S Daughters Medical Center OhioLymphocytes/100 WBC (Bld)13 %13 - 44 %[facility] CenterH (RBC) [Entitic mass]28.5 pg26 - 34 pgSouthwest General Health CenterHC (RBC) [Mass/Vol]33.0 g/dL 31 - 37 g/dLSouthwest General Health CenterV (RBC) [Entitic vol]86.3 fL80 - 100 fLKing'S Daughters Medical Center [place] Monocytes/100 WBC (Bld)7 %5 - 9 %Mercy HealthPlatelet distribution width (Bld) [Ratio]15.5 %High12.1 - 15.2 %[facility] HealthPlatelets (Bld) [#/Vol]240 10*3/uL [facility] HealthRBC (Bld) [#/Vol]4.95 10*6/uL4.5 - 5.9 m/uLMercy HealthSegmented neutrophils/100 WBC (Bld)78 %High39 - 75 %[facility] HealthSegs Absolute6.30Mercy HealthWBC (Bld) [#/Vol]8.1 10*3/uLMercy HealthMercy HealthCalciumon 03-17-2022 Calcium [Mass/Vol]9.4 mg/dL8.6 - 10.4 mg/dLHolzer Medical Center – Jackson HealthComprehensive Metabolic Panelon 34-46-4346Pfbqhup [Mass/Vol]3.8 g/dL3.5 - 5.2 g/dLSuburban Community Hospital & Brentwood Hospitalcy HealthALP (Bld) [Catalytic activity/Vol]110 U/L40 - 129 U/LMercy HealthALT [Catalytic activity/Vol]29 U/L5 - 41 U/LMercy HealthAnion gap [Moles/Vol]13 mmol/L9 - 17 mmol/LMercy HealthAST [Catalytic activity/Vol]25 U/L<40Mercy HealthBilirubin [Mass/Vol]0.37 mg/dL0.30 - 1.20 mg/dLMercy HealthCalcium [Mass/Vol]9.4 mg/dL8.6 - 10.4 mg/dLMercy HealthChloride [Moles/Vol]100 mmol/L98 - 107 mmol/LMercy HealthCO2 [Moles/Vol]23 mmol/L20 - 31 mmol/LMercy HealthCreatinine [Mass/Vol] 2.51 mg/dLHigh0.70 - 1.20 mg/dLMercy HealthFree PSA/Total PSA [Mass fraction]7.0 g/dL6.4 - 8.3 g/dLMercy HealthGFR Clmlunnh72 mL/minLow>60Mercy HealthGFR Non- Qkbtjtij69 mL/minLow>60Mercy HealthGFR/1.73 sq M.predicted MDRD (S/P/Bld) [Vol rate/Area][facility] OhioComment on above:Average GFR for 50-59 years old: 93 mL/min/1.73sq m Chronic Kidney Disease: <60 mL/min/1.73sq m Kidney failure: <15 mL/min/1.73sq m eGFR calculated using average adult body mass. Additional eGFR calculator available at: http://www.Last Guide/multiple_crcl_2012.htm Glucose [Mass/Vol]204 mg/gLKffp96 - 99 mg/dLMercy HealthInterpretation and review of laboratory resultsAbnormalMercy HealthPotassium [Moles/Vol]5.3 mmol/L 3.7 - 5.3 mmol/LMercy HealthSodium [Moles/Vol]136 mmol/L135 - 144 mmol/LMercy HealthUrea nitrogen (BldV) [Mass/Vol]33 mg/dLHigh6 - 20 mg/dLMercy HealthUrea nitrogen/Creatinine (Bld) [Mass ratio]13Mercy HealthMercy HealthAlbumin [Mass/Vol]3.8 g/dL3.5 - 5.2 g/dLMercy HealthALP (Bld) [Catalytic activity/Vol] 110 U/L40 - 129 U/LMercy HealthALT [Catalytic activity/Vol]29 U/L5 - 41 U/LMercy HealthAnion gap [Moles/Vol]13 mmol/L9 - 17 mmol/LMercy HealthAST [Catalytic activity/Vol]25 U/L<40Mercy HealthBilirubin [Mass/Vol]0.37 mg/dL0.30 - 1.20 mg/dLMercy HealthCalcium [Mass/Vol]9.4 mg/dL8.6 - 10.4 mg/dLMercy HealthChloride [Moles/Vol]100 mmol/L98 - 107 mmol/LMercy HealthCO2 [Moles/Vol]23 mmol/L20 - 31 mmol/LMercy HealthCreatinine [Mass/Vol]2.51 mg/dLHigh0.70 - 1.20 mg/dLMercy HealthFree PSA/Total PSA [Mass fraction]7.0 g/dL6.4 - 8.3 g/dLMercy HealthGFR Rxzlilio82 mL/minLow>60Mercy HealthGFR Non- Zspgxelz38 mL/minLow >60Mercy HealthGFR/1.73 sq M.predicted MDRD (S/P/Bld) [Vol rate/Area][facility] OhioComment on above:Average GFR for 50-59 years old: 93 mL/min/1.73sq m Chronic Kidney Disease: <60 mL/min/1.73sq m Kidney failure: <15 mL/min/1.73sq m eGFR calculated using average adult body mass. Additional eGFR calculator available at: http://www.Last Guide/multiple_crcl_2012.htm Glucose [Mass/Vol]204 mg/jSXigw41 - 99 mg/dLHolzer Medical Center – Jackson HealthInterpretation and review of laboratory resultsAbnormalHolzer Medical Center – Jackson HealthPotassium [Moles/Vol]5.3 mmol/L 3.7 - 5.3 mmol/LMercy HealthSodium [Moles/Vol]136 mmol/L135 - 144 mmol/LMercy HealthUrea nitrogen (BldV) [Mass/Vol]33 mg/dLHigh6 - 20 mg/dLHolzer Medical Center – Jackson HealthUrea nitrogen/Creatinine (Bld) [Mass ratio]13[facility] OhioElectrolyte Panelon 71-28-5482Buvmg gap [Moles/Vol]13 mmol/L9 - 17 mmol/LMercy HealthChloride [Moles/Vol]100 mmol/L98 - 107 mmol/LMercy HealthCO2 [Moles/Vol]23 mmol/L20 - 31 mmol/LMercy HealthPotassium [Moles/Vol]5.3 mmol/L3.7 - 5.3 mmol/LMercy Health Sodium [Moles/Vol]136 mmol/L135 - 144 mmol/LMercy HealthMagnesiumon 03-17-2022 Magnesium [Mass/Vol]1.9 mg/dL1.6 - 2.6 mg/dLKing'S Daughters Medical Center OhioNo Panel Informationon [id number] HealthMerTeensSuccess HealthPatient Fasting?on [id number] Fasting? yesPark[facility] HealthPatient Fasting?yesPark[facility] HealthTSHon 61-60-0073HCC Qn4.78 m[IU]/LMercy HealthXR CHEST (2 VW)on 03-17-2022 No acute change. MHPN RIS CONSOLIDATEDEXAM: XR CHEST (2 VW) HISTORY: Reason for exam:->shortness of breath. COMPARISON: 09/28/2019. TECHNIQUE: Two views chest, three images. FINDINGS: Heart size upper normal, stable. The lungs are clear. No evidence of metastatic disease. [facility] Cornelius Amos Jr., MD - 03/17/2022 EXAM: XR CHEST (2 VW) HISTORY: Reason for exam:->shortness of breath. COMPARISON: 09/28/2019. TECHNIQUE: Two views chest, three images. FINDINGS: Heart size upper normal, stable. The lungs are clear. No evidence of metastatic disease. IMPRESSION: No acute change. [employer] Phone: radiology Study observation (narrative)[employer] Phone: XR CHEST (2 VW)Ordered By: Cornelius Mcmullen on 03-17-2022 [employer] Phone: Hemoglobin and Hematocriton [phone] (Bld) [Volume fraction]42.8 %41 - 53 %MedNewsHemoglobin.gastrointestinal spec 1 Ql (Stl)14.3 g/dL13.5 - 17.5 g/dLMercy HealthMercy HealthMagnesiumon 01-16-2022 Magnesium [Mass/Vol]1.9 mg/dL1.6 - 2.6 mg/dLMercy HealthNo Panel Informationon [phone] HealthProtein / creatinine ratio, urineon [id number], Ur58.8 mg/dL39.0 - 259.0 mg/dLMerTeensSuccess HealthInterpretation and review of laboratory resultsAbnormalMercy HealthProtein (U) [Mass/Vol]780 mg/dLMercy HealthComment on above:No normal range established.Urine Total Protein Creatinine Ratio13.27HighMercy HealthMercy HealthRenal Function Panelon [id number] [Mass/Vol]4 g/dL3.5 - 5.2 g/dLMercy HealthAnion gap [Moles/Vol]12 mmol/L9 - 17 mmol/LMercy HealthCalcium [Mass/Vol]9.5 mg/dL8.6 - 10.4 mg/dLMercy HealthChloride [Moles/Vol]100 mmol/L98 - 107 mmol/LMercy Health CO2 [Moles/Vol]25 mmol/L20 - 31 mmol/LMercy HealthCreatinine [Mass/Vol]2.61 mg/dLHigh0.70 - 1.20 mg/dLMercy HealthGFR Wzhqlmhq13 mL/minLow>60Mercy HealthGFR Non- Jiljrbbl86 mL/minLow>60Mercy HealthGFR/1.73 sq M.predicted MDRD (S/P/Bld) [Vol rate/Area][facility] OhioComment on above:Average GFR for 50- 59 years old: 93 mL/min/1.73sq m Chronic Kidney Disease: <60 mL/min/1.73sq m Kidney failure: <15 mL/min/1.73sq m eGFR calculated using average adult body mass. Additional eGFR calculator available at: http://www.Last Guide/multiple_crcl_2011.htm Glucose [Mass/Vol]163 mg/sLCsnw84 - 99 mg/dLHolzer Medical Center – Jackson HealthInterpretation and review of laboratory resultsAbnormalMer HealthPhosphate [Mass/Vol]4.4 mg/dL2.5 - 4.5 mg/dLMercy HealthPotassium [Moles/Vol]4.5 mmol/L3.7 - 5.3 mmol/LMercy HealthSodium [Moles/Vol]137 mmol/L135 - 144 mmol/LMercy HealthUrea nitrogen (BldV) [Mass/Vol]33 mg/dLHigh6 - 20 mg/dLMercy HealthUrea nitrogen/Creatinine (Bld) [Mass ratio]13[facility] OhioBasic Metabolic Panelon [id number] gap [Moles/Vol]13 mmol/L9 - 17 mmol/LMercy HealthCalcium [Mass/Vol]9.3 mg/dL8.6 - 10.4 mg/dLMercy HealthChloride [Moles/Vol]97 mmol/LLow98 - 107 mmol/LMercy HealthCO2 [Moles/Vol]23 mmol/L20 - 31 mmol/LMercy HealthCreatinine [Mass/Vol] 2.39 mg/dLHigh0.70 - 1.20 mg/dLMercy HealthGFR Gnajuxky90 mL/minLow>60 [facility] HealthGFR Non- Wbhagswd24 mL/minLow>60Mer HealthGFR/1.73 sq M.predicted MDRD (S/P/Bld) [Vol rate/Area][facility] OhioComment on above:Average GFR for 50-59 years old: 93 mL/min/1.73sq m Chronic Kidney Disease: <60 mL/min/1.73sq m Kidney failure: <15 mL/min/1.73sq m eGFR calculated using average adult body mass. Additional eGFR calculator available at: http://www.Last Guide/multiple_crcl_2012.htm GFR/1.73 sq M.predicted MDRD (S/P/Bld) [Vol rate/Area]NOT REPORTEDKing[facility] [place] Glucose [Mass/Vol]199 mg/pEUdnv43 - 99 mg/dLKing'S Daughters Medical Center OhioInterpretation and review of laboratory resultsAbnormalKing'S Daughters [facility] OhioPotassium [Moles/Vol]4.7 mmol/L 3.7 - 5.3 mmol/LMerc HealthSodium [Moles/Vol]133 mmol/MVfh541 - 144 mmol/LMercy HealthUrea nitrogen (BldV) [Mass/Vol]23 mg/dLHigh6 - 20 mg/dLKing'S Daughters Medical Center OhioUrea nitrogen/Creatinine (Bld) [Mass ratio]10[facility] Medical CenterCreatinine, Random UrineOrdered By: Gracie Miller on [id number], Ur166.4 mg/dL 39.0 - 259.0 mg/dLSuburban Community Hospital & Brentwood HospitalSequoia Media Group Work Phone: [facility] HospitalSequoia Media Group Work Phone: Hemoglobin and Hematocrit, BloodOrdered By: Gracie Miller on 40-53-6335Eucvctdzeg (Bld) [Volume fraction]43.1 %41 - 53 %[facility] [employer] Work Phone: Hemoglobin.gastrointestinal spec 1 Ql (Stl)14.6 g/dL 13.5 - 17.5 g/dLSuburban Community Hospital & Brentwood HospitalSequoia Media Group Work Phone: [facility] HospitalSequoia Media Group Work Phone: MagnesiumOrdered By: Gracie Miller on 07-25-2021 Magnesium [Mass/Vol]2.0 mg/dL1.6 - 2.6 mg/dLTuscany Design Automation Phone: No Panel InformationOrdered By: Gracie Miller on [id number] Health Work Phone: pTH, IntactOrdered By: Gracie Miller on 07-25-2021 Pth Enhjut22.41 pg/mL15.0 - 65.0 pg/mLSuburban Community Hospital & Brentwood HospitalIDEA SPHERE Phone: comment on above:SAMPLES FROM PATIENTS ROUTINELY RECEIVING HIGH DOSE BIOTIN THERAPY MAY SHOW FALSELY DEPRESSED RESULTS. ADDITIONAL INFORMATION MAY BE REQUIRED FOR DIAGNOSIS. [employer] Phone: renal Function PanelOrdered By: Gracie Miller on [id number] [Mass/Vol]3.4 g/dLLow3.5 - 5.2 g/dLSuburban Community Hospital & Brent[facility] HospitalIDEA SPHERE Phone: anion gap [Moles/Vol]10 mmol/L9 - 17 mmol/LMProPerforma Phone: calcium [Mass/Vol]9.3 mg/dL8.6 - 10.4 mg/dLTuscany Design Automation Phone: chloride [Moles/Vol]101 mmol/L98 - 107 mmol/LMercy [employer] Phone: cO2 [Moles/Vol]25 mmol/L20 - 31 mmol/LMOrchestratey [employer] Phone: creatinine [Mass/Vol]2.35 mg/dLHigh0.70 - 1.20 mg/dL [employer] Phone: GFR Oqwahegt46 mL/minLow>60MerIDEA SPHERE Phone: GFR Non- Joepoaeo77 mL/minLow>60MerIDEA SPHERE Phone: GFR/1.73 sq M.predicted MDRD (S/P/Bld) [Vol rate/Area] [facility] HospitalNobles Medical Technologies Phone: comment on above:Average GFR for 50-59 years old: 93 mL/min/1.73sq m Chronic Kidney Disease: <60 mL/min/1.73sq m Kidney failure: <15 mL/min/1.73sq m eGFR calculated using average adult body mass. Additional eGFR calculator available at: http://www.Last Guide/multiple_crcl_2012.htm GFR/1.73 sq M.predicted MDRD (S/P/Bld) [Vol rate/Area]NOT REPORTEDSuburban Community Hospital & Brentwood HospitalIDEA SPHERE Phone: Glucose [Mass/Vol]152 mg/vFTlqr68 - 99 mg/dLSuburban Community Hospital & Brent[facility] HospitalIDEA SPHERE Phone: Interpretation and review of laboratory results AbnormalSuburban Community Hospital & Brentwood HospitalIDEA SPHERE Phone: phosphate [Mass/Vol]4.2 mg/dL2.5 - 4.5 mg/dLSuburban Community Hospital & Brent[facility] HospitalIDEA SPHERE Phone: potassium [Moles/Vol]4.7 mmol/L3.7 - 5.3 mmol/LMcleveland clinic foundation [employer] Phone: sodium [Moles/Vol]136 mmol/L135 - 144 mmol/LMohio valley surgical hospitalNobles Medical Technologies Phone: Urea nitrogen (BldV) [Mass/Vol]27 mg/dLHigh6 - 20 mg/dLSuburban Community Hospital & Brent[facility] HospitalIDEA SPHERE Phone: Urea nitrogen/Creatinine (Bld) [Mass ratio]11[facility] HospitalIDE[facility] SPHERE Phone: cBC Auto DifferentialOrdered By: Trevor Serna on [id number] Eos #0.20[facility] HospitalIDEA SPHERE Phone: absolute Immature GranulocyteNOT REPORTEDSuburban Community Hospital & Brent[facility] HospitalIDEA SPHERE Phone: absolute Lymph #1.30[facility] HospitalIDE[facility] SPHERE Phone: absolute [place] #0.60[facility] HospitalIDE[facility] SPHERE Phone: basophils (Bld) [#/Vol]0.00 10*3/uLSuburban Community Hospital & Brentwood HospitalIDEA SPHERE Phone: basophils/100 WBC (Bld)0 %0 - 2 %[employer] Phone: differential TypeYESMercNobles Medical Technologies Phone: eosinophils/100 WBC (Bld)2 %0 - 5 %[employer] Phone: Hematocrit (Bld) [Volume fraction]43.0 %41 - 53 %[employer] Phone: Hemoglobin.gastrointestinal spec 1 Ql (Stl)14.4 g/dL 13.5 - 17.5 g/dLSuburban Community Hospital & Brent[facility] HospitalIDEA SPHERE Phone: Immature GranulocytesNOT REPORTED0 %[employer] Phone: Interpretation and review of laboratory results AbnormalSuburban Community Hospital & Brentwood HospitalIDEA SPHERE Phone: lymphocytes/100 WBC (Bld)15 %13 - 44 %[employer] Phone: MCH (RBC) [Entitic mass]28.9 pg26 - 34 pgSuburban Community Hospital & Brentwood HospitalIDEA SPHERE Phone: MCHC (RBC) [Mass/Vol]33.4 g/dL31 - 37 g/dLSuburban Community Hospital & Brent[facility] HospitalIDEA SPHERE Phone: MCV (RBC) [Entitic vol]86.5 fL80 - 100 fLSuburban Community Hospital & Brentwood HospitalIDEA SPHERE Phone: Monocytes/100 WBC (Bld)6 %5 - 9 %[employer] Phone: NRBC AutomatedNOT REPORTEDper 100 WBCTuscany Design Automation Phone: platelet distribution width (Bld) [Ratio]14.4 %12.1 - 15.2 %[employer] Phone: platelet EstimateNOT REPORTEDMerSequoia Media Group Work Phone: platelet mean volume (Bld) [Entitic vol]NOT REPORTED 6.0 - 12.0 fLMedNews Work Phone: Platelets (Bld) [#/Vol]257 10*3/uLMedNews Work Phone: [phone] (Bld) [#/Vol]4.98 10*6/uL4.5 - 5.9 m/uLSuburban Community Hospital & Brentwood HospitalSequoia Media Group Work Phone: RBC (Bld) [#/Vol]NOT REPORTEDSuburban Community Hospital & Brent[facility] HospitalSequoia Media Group Work Phone: Negmented neutrophils/100 WBC (Bld)77 %High39 - 75 % [employer] Phone: Negs Absolute6.70HighSuburban Community Hospital & Brentwood HospitalIDEA SPHERE Phone: WBC (Bld) [#/Vol]8.8 10*3/[employer] Work Phone: WBC (Bld) [#/Vol]NOT REPORTEDSub[facility] Community Hospital & [facility] HospitalIDEA SPHERE Phone: [facility] HospitalIDE[facility]PHERE Phone: comprehensive Metabolic PanelOrdered By: Trevor Kumari on 31-55-3451Monlzrx [Mass/Vol]3.7 g/dL3.5 - 5.2 g/dLSuburban Community Hospital & Brent[facility] HospitalIDEA SPHERE Phone: albumin/Globulin RatioNOT REPORTEDSuburban Community Hospital & Brent[facility] HospitalIDEA SPHERE Phone: aLP (Bld) [Catalytic activity/Vol]100 U/L40 - 129 U/L [facility] HospitalKiddie Kist Work Phone: aLT [Catalytic activity/Vol]15 U/L5 - 41 U/LMProPerforma Phone: anion gap [Moles/Vol]9 mmol/L9 - 17 mmol/LMVeebow Work Phone: aST [Catalytic activity/Vol]17 U/L<40MerIDEA SPHERE Phone: bilirubin [Mass/Vol]0.47 mg/dL0.30 - 1.20 mg/dLSuburban Community Hospital & Brent[facility] HospitalIDEA SPHERE Phone: calcium [Mass/Vol]9.2 mg/dL8.6 - 10.4 mg/dLSuburban Community Hospital & Brent[facility] HospitalIDEA SPHERE Phone: chloride [Moles/Vol]100 mmol/L98 - 107 mmol/LMohio valley surgical hospitalKiddie Kist Work Phone: FO2 [Moles/Vol]25 mmol/L20 - 31 mmol/LMohio valley surgical hospitaly [employer] Phone: Vreatinine [Mass/Vol]2.04 mg/dLHigh0.70 - 1.20 mg/dL [facility] HospitalNobles Medical Technologies Phone: Free PSA/Total PSA [Mass fraction]7.2 g/dL6.4 - 8.3 g/dLSuburban Community Hospital & Brent[facility] HospitalIDEA SPHERE Phone: GFR Hzvuykvc00 mL/minLow>60[facility] HospitalIDE[facility]PHERE Phone: GFR Non- Ftaektov59 mL/minLow>60[facility] HospitalIDE[facility]PH[facility] Phone: GFR/1.73 sq M.predicted MDRD (S/P/Bld) [Vol rate/Area] [facility] HospitalNob[facility] Phone: comment on above:Average GFR for 50-59 years old: 93 mL/min/1.73sq m Chronic Kidney Disease: <60 mL/min/1.73sq m Kidney failure: <15 mL/min/1.73sq m eGFR calculated using average adult body mass. Additional eGFR calculator available at: http://www.[facility].Social Reality/multiple_crcl_2012.htm GFR/1.73 sq M.predicted MDRD (S/P/Bld) [Vol rate/Area]NOT REPORTEDSuburban Community Hospital & [facility] HospitalIDEA SPHERE Phone: Glucose [Mass/Vol]137 mg/hXNpbg25 - 99 mg/dLSuburban Community Hospital & Brent[facility] HospitalIDEA SPHERE Phone: Interpretation and review of laboratory results AbnormalSuburban Community Hospital & Brent[facility] HospitalIDEA SPHERE Phone: potassium [Moles/Vol]4.7 mmol/L3.7 - 5.3 mmol/LMohio valley surgical hospitaly [employer] Phone: sodium [Moles/Vol]134 mmol/MTgt639 - 144 mmol/LMohio valley surgical hospitaly [employer] Phone: Urea nitrogen (BldV) [Mass/Vol]27 mg/dLHigh6 - 20 mg/dLSuburban Community Hospital & [facility] HospitalIDEA SPHERE Phone: Urea nitrogen/Creatinine (Bld) [Mass ratio]13[facility] HospitalIDE[facility]PHERE Phone: [facility] HospitalIDE[facility] Phone: albuminon [phone] [Mass/Vol]3.8 g/dL3.5 - 5.2 g/dLSuburban Community Hospital & [facility] HospitalIDEA SPHERE Phone: bUN & Creatinineon 53-90-4560Hsdhzbcciw [Mass/Vol]1.99 mg/dLHigh0.70 - 1.20 mg/dLHolzer Medical Center – [facility] [employer] Phone: GFR Oytwleqp30 mL/minLow>60[facility] HospitalIDE[facility] Phone: GFR Non- Xpybkbci57 mL/minLow>60[facility] HospitalIDE[facility]PH[facility] Phone: GFR/1.73 sq M predicted among non-blacks MDRD (S/P/Bld) [Vol rate/Area][facility] HospitalNob[facility] Phone: comment on above:Average GFR for 50-59 years old: 93 mL/min/1.73sq m Chronic Kidney Disease: <60 mL/min/1.73sq m Kidney failure: <15 mL/min/1.73sq m eGFR calculated using average adult body mass. Additional eGFR calculator available at: http://www.[facility].Social Reality/multiple_crcl_2012.htm GFR/1.73 sq M predicted among non-blacks MDRD (S/P/Bld) [Vol rate/Area]NOT REPORTEDSuburban Community Hospital & [facility] HospitalIDEA SPHERE Phone: Interpretation and review of laboratory results AbnormalSuburban Community Hospital & Brent[facility] HospitalIDEA SPHERE Phone: Urea nitrogen [Mass/Vol]26 mg/dLHigh6 - 20 mg/dLSuburban Community Hospital & [facility] HospitalIDEA SPHERE Phone: basic Metabolic Panelon 19-06-9177Zhxyu gap [Moles/Vol]9 mmol/L9 - 17 mmol/LMohio valley surgical hospitalNobles Medical Technologies Phone: bun/Cre Akkxg22RwetwIDEA SPHERE Phone: calcium [Mass/Vol]8.7 mg/dL8.6 - 10.4 mg/dLSuburban Community Hospital & [facility] HospitalIDEA SPHERE Phone: chloride [Moles/Vol]101 mmol/L98 - 107 mmol/LMohio valley surgical hospitaly [employer] Phone: cO2 [Moles/Vol]25 mmol/L20 - 31 mmol/LMProPerforma Phone: creatinine [Mass/Vol]1.99 mg/dLHigh0.70 - 1.20 mg/dL [facility] HospitalNob[facility] Phone: GFR Oiyiqbaq90 mL/minLow>60[facility] HospitalIDE[facility] Phone: GFR Non- Vfeudulz12 mL/minLow>60[facility] HospitalIDE[facility] Phone: GFR/1.73 sq M predicted among non-blacks MDRD (S/P/Bld) [Vol rate/Area]NOT REPORTEDSuburban Community Hospital & Brent[facility] HospitalIDEA SPHERE Phone: GFR/1.73 sq M predicted among non-blacks MDRD (S/P/Bld) [Vol rate/Area][employer] Phone: comment on above:Average GFR for 50-59 years old: 93 mL/min/1.73sq m Chronic Kidney Disease: <60 mL/min/1.73sq m Kidney failure: <15 mL/min/1.73sq m eGFR calculated using average adult body mass. Additional eGFR calculator available at: http://www.Last Guide/multiple_crcl_2012.htm Glucose [Mass/Vol]200 mg/eEZmhq38 - 99 mg/dLHolzer Medical Center – [facility] [employer] Phone: Interpretation and review of laboratory results AbnormalHolzer Medical Center – Jackson [employer] Phone: Votassium [Moles/Vol]4.5 mmol/L3.7 - 5.3 mmol/LMercy [employer] Work Phone: Eodium [Moles/Vol]135 mmol/L135 - 144 mmol/LMercy [employer] Work Phone: Urea nitrogen [Mass/Vol]25 mg/dLHigh6 - 20 mg/dLHolzer Medical Center – [facility] [employer] Phone: Ralciumon 23-82-2617Csgyvra [Mass/Vol]8.7 mg/dL8.6 - 10.4 mg/dLHolzer Medical Center – [facility] [employer] Phone: cortisol Totalon 49-96-7489Ndvekajz99.6 ug/dL2.7 - 18.4 ug/dLHolzer Medical Center – [facility] [employer] Phone: comment on above: Cortisol Reference Range: AM 6.0-18.4 PM 2.7-10.5 Cortisol Collection Kxyb9Swvic [employer] Phone: Jreatinine, Random Urineon 02-35-3946Qduvchopme, Ur 76.6 mg/dL39.0 - 259.0 mg/dLHolzer Medical Center – [facility] [employer] Phone: Olectrolyte Panelon 23-34-1151Wzvqq gap [Moles/Vol]10 mmol/L9 - 17 mmol/LMercy [employer] Work Phone: Yhloride [Moles/Vol]101 mmol/L98 - 107 mmol/LMercy [employer] Phone: GO2 [Moles/Vol]24 mmol/L20 - 31 mmol/LMercy [employer] Work Phone: Potassium [Moles/Vol]4.5 mmol/L3.7 - 5.3 mmol/LMohio valley surgical hospitaly [employer] Phone: sodium [Moles/Vol]135 mmol/L135 - 144 mmol/LMohio valley surgical hospitaly [employer] Phone: Hemoglobin A1Con 17-81-4561Workmhc [Mass/Vol]278 mg/dL [facility] HospitalNob[facility] Technologies Phone: comment on above:The ADA and AACC recommend providing the estimated average glucose result to permit better patient understanding of their HBA1c result. HbA1c (Bld) [Mass fraction]11.3 %High4.0 - 6.0 %[employer] Phone: Interpretation and review of laboratory results AbnormalSuburban Community Hospital & Brentwood HospitalIDEA SPHERE Phone: Hemoglobin and Hematocrit, Bloodon 01-28-2021 Hematocrit (Bld) [Volume fraction]44.8 %41 - 53 %[facility]Nob[facility] Phone: Hemoglobin (Bld) [Mass/Vol]15.1 g/dL13.5 - 17.5 g/dL [facility] HospitalNob[facility] Phone: Magnesiumon 48-38-6731Rfsaaytvf [Mass/Vol]1.7 mg/dL1.6 - 2.6 mg/dLSuburban Community Hospital & Brent[facility] HospitalIDEA SPHERE Phone: pTH, Intacton 98-99-0623Exggtnxlwawggy and review of laboratory resultsAbnormalSuburban Community Hospital & Brent[facility] HospitalIDEA SPHERE Phone: pth Vzpoyn53.47 pg/bZNaas81.0 - 65.0 pg/mLSuburban Community Hospital & Brentwood HospitalIDEA SPHERE Phone: comment on above:SAMPLES FROM PATIENTS ROUTINELY RECEIVING HIGH DOSE BIOTIN THERAPY MAY SHOW FALSELY DEPRESSED RESULTS. ADDITIONAL INFORMATION MAY BE REQUIRED FOR DIAGNOSIS. Phosphoruson 89-00-3391Neioblyde [Mass/Vol]3.9 mg/dL2.5 - 4.5 mg/dLSuburban Community Hospital & Brent[facility] HospitalIDEA SPHERE Phone: protein, urine, randomon 75-50-9303Xrvdhuh (U) [Mass/Vol]847 mg/dLSuburban Community Hospital & Brentwood HospitalIDEA SPHERE Phone: comment on above:No normal range established.Vitamin D 25 Hydroxyon 68-36-1641Zlobexzoqzprqe and review of laboratory resultsAbnormal [facility] HospitalNobles Medical Technologies Phone: Vit D, 25-Hydroxy<5.0Low30.0 - 100.0 ng/mLSuburban Community Hospital & Brent[facility] HospitalIDEA SPHERE Phone: comment on above: Reference Range: Vitamin D status Range Deficiency <20 ng/mL Mild Deficiency 20-30 ng/mL Sufficiency 30-100 ng/mL Toxicity >100 ng/mL Comprehensive Metabolic Panelon 80-88-1994Bruupic [Mass/Vol]3.9 g/dL3.5 - 5.2 g/dLMercy Health- [place], KYAlbumin/Globulin [Mass ratio]NOT REPORTEDMercy Health- [place], KYALP [Catalytic activity/Vol]120 U/L40 - 129 U/LMercy Health- [place], KYALT [Catalytic activity/Vol]16 U/L5 - 41 U/LMercy Health- [place], KYAnion gap [Moles/Vol]11 mmol/L9 - 17 mmol/LMercy Health- [place], KYAST [Catalytic activity/Vol]14 U/L<40[facility]- [place], KYBilirubin Ql (U)0.42 mg/dL0.3 - 1.2 mg/dLMercy Health- [place], KYBun/Cre Dijxs32Fbqab Health- [place], KYCalcium [Mass/Vol] 9.2 mg/dL8.6 - 10.4 mg/dLMercy Health- [place], KYChloride [Moles/Vol]96 mmol/LLow98 - 107 mmol/LMercy Health- [place], KYCO2 [Moles/Vol]26 mmol/L20 - 31 mmol/LMercy Health- [place], KYCreatinine [Mass/Vol]1.99 mg/dLHigh0.7 - 1.2 mg/dLMercy Health- [place], KYGFR Ljytrinr30 mL/minLow>60[facility]- [place], KYGFR Non- Styondpk47 mL/minLow>60[facility]- [place], KYGFR/1.73 sq M predicted among non- blacks MDRD (S/P/Bld) [Vol rate/Area][facility], MTComment on above: Average GFR for 50-59 years old: 93 mL/min/1.73sq m Chronic Kidney Disease: <60 mL/min/1.73sq m Kidney failure: <15 mL/min/1.73sq m eGFR calculated using average adult body mass. Additional eGFR calculator available at: http://www.Last Guide/multiple_crcl_2012.htm GFR/1.73 sq M predicted among non-blacks MDRD (S/P/Bld) [Vol rate/Area]NOT REPORTEDAC[facility], MTGlucose [Mass/Vol]338 mg/oSTwsq33 - 99 mg/dLACMC [facility], MTInterpretation and review of laboratory resultsAbnoParkview Health, KYPotassium [Moles/Vol]5.1 mmol/L3.7 - 5.3 mmol/LMMarietta Osteopathic Clinic, KYProtein [Mass/Vol]6.7 g/dL6.4 - 8.3 g/dLAC[facility], KYSodium [Moles/Vol] 133 mmol/SJvr181 - 144 mmol/LMMarietta Osteopathic Clinic, KYUrea nitrogen [Mass/Vol]23 mg/dLHigh6 - 20 mg/dLACMC [facility], MTHemoglobin A1Con 18-03-4775Hxenhix [Mass/Vol]306 mg/dLACMC Healthcare System [facility], MALINIComment on above:The ADA and AACC recommend providing the estimated average glucose result to permit better patient understanding of their HBA1c result. HbA1c (Bld) [Mass fraction]12.3 %High4 - 6 %[facility], KYInterpretation and review of laboratory resultsAbnoParkview Health, MTLipid Panelon 29-44-0660Nrbrjwffseh [Mass/Vol]162 mg/dL<200AC[facility] MTComment on above: Cholesterol Guidelines: <200 Desirable 200-240 Borderline >240 Undesirable Cholesterol in HDL [Mass/Vol]32 mg/dLLow>40AC[facility], MTComment on above: HDL Guidelines: <40 Undesirable 40-59 Borderline >59 Desirable Cholesterol in LDL [Mass/Vol]73 mg/dL0 - 130 mg/dLACMC Healthcare System [facility], MTComment on above: LDL Guidelines: <100 Desirable 100-129 Near to/above Desirable 130-159 Borderline >159 Undesirable Direct (measured) LDL and calculated LDL are not interchangeable tests. Cholesterol in VLDL [Mass/Vol]NOT REPORTEDHigh1 - 30 mg/dLACMC [facility], [place] Cholesterol.total/Cholesterol in HDL [Mass ratio]5.1 {ratio}High<5AC[facility], MTInterpretation and review of laboratory resultsAbnoParkview Health, MTTriglyceride [Mass/Vol]283 mg/dLHigh<150AC[facility], MTComment on above: Triglyceride Guidelines: <150 Desirable 150-199 Borderline 200-499 High >499 Very high Based on AHA Guidelines for fasting triglyceride, August 2012. Patient Fasting?on 16-11-5213Murvrds Fasting?yesAC[facility], MTCB Auto Differentialon 42-75-6157Vbfwwxgrw (Bld) [#/Vol]0.00 10*3/[facility], [place] Basophils/100 WBC (Bld)0 %0 - 2 %[facility], MTDifferential TypeYESMMarietta Osteopathic Clinic, MALINIEosinophils (Bld) [#/Vol]0.20 10*3/[facility], [place] Eosinophils/100 WBC (Bld)2 %0 - 5 %[facility], MTErythrocyte distribution width (RBC) [Ratio]13.9 %12.1 - 15.2 %[facility], MTHematocrit (Bld) [Volume fraction]46.8 %41 - 53 %[facility], MTHemoglobin (Bld) [Mass/Vol] 15.8 g/dL13.5 - 17.5 g/dLACMC [facility], MTInterpretation and review of laboratory resultsAbnoParkview Health, MTLymphocytes (Bld) [#/Vol]1.30 10*3/[facility], KYLymphocytes/100 WBC (Bld)15 %13 - 44 %[facility], MTMCH (RBC) [Entitic mass]29.2 pg26 - 34 pgHolzer Medical Center – [facility] Health- [place], KYMCHC (RBC) [Mass/Vol]33.7 g/dL31 - 37 g/dLHolzer Medical Center – [facility] Health- [place], KYMCV (RBC) [Entitic vol]86.7 fL80 - 100 fLHolzer Medical Center – [facility] Health- [place], KYMonocytes (Bld) [#/Vol]0.50 10*3/uLHolzer Medical Center – [facility]- [place], KYMonocytes/100 WBC (Bld)6 %5 - 9 %[facility]- [place], KYPlatelet mean volume (Bld) [Entitic vol]NOT REPORTED6 - 12 fLHolzer Medical Center – [facility] Health- [place], KYPlatelets (Bld) [#/Vol]252 10*3/uLHolzer Medical Center – [facility]- [place], KYPlatelets (Bld) [#/Vol]NOT REPORTED [facility]- [place], KYRBC (Bld) [#/Vol]5.41 10*6/uL4.5 - 5.9 m/uLHolzer Medical Center – [facility]- [place], KYRBC morphology finding Nom (Bld)NOT REPORTEDHolzer Medical Center – [facility]- [place], KYSegmented neutrophils/100 WBC (Bld)77 %High39 - 75 %[facility]- [place], KYSegs Absolute6.30 [facility]- [place], KYWBC (Bld) [#/Vol]NOT REPORTEDper 100 WBCHolzer Medical Center – [facility] Health- [place], [place] WBC (Bld) [#/Vol]8.3 10*3/uLHolzer Medical Center – [facility]- [place], KYWBC MorphologyNOT REPORTEDHolzer Medical Center – [facility]- [place], KYComprehensive Metabolic Panelon 24-55-4509Tgmczgz [Mass/Vol]3.7 g/dL3.5 - 5.2 g/dLHolzer Medical Center – [facility]- [place], KYAlbumin/Globulin [Mass ratio]NOT REPORTED [facility]- [place], KYALP [Catalytic activity/Vol]117 U/L40 - 129 U/LMercy Health- [place], KYALT [Catalytic activity/Vol]18 U/L5 - 41 U/LMercy Health- [place], KYAnion gap [Moles/Vol]9 mmol/L9 - 17 mmol/LMercy Health- [place], KYAST [Catalytic activity/Vol] 15 U/L<40[facility]- [place], KYBilirubin Ql (U)0.37 mg/dL0.3 - 1.2 mg/dLAC[facility], KYBun/Cre Hgteg90KvvmmAC[facility], KYCalcium [Mass/Vol]9.7 mg/dL8.6 - 10.4 mg/dLAC[facility], KYChloride [Moles/Vol]98 mmol/L98 - 107 mmol/L [facility], KYCO2 [Moles/Vol]26 mmol/L20 - 31 mmol/LMMarietta Osteopathic Clinic, [place] Creatinine [Mass/Vol]1.99 mg/dLHigh0.7 - 1.2 mg/dLAC[facility], KYGFR Vidaakgc02 mL/minLow>60[facility], KYGFR Non- Fuszuzyn25 mL/minLow>60[facility], KYGFR/1.73 sq M predicted among non-blacks MDRD (S/P/Bld) [Vol rate/Area][facility], KYComment on above:Average GFR for 50-59 years old: 93 mL/min/1.73sq m Chronic Kidney Disease: <60 mL/min/1.73sq m Kidney failure: <15 mL/min/1.73sq m eGFR calculated using average adult body mass. Additional eGFR calculator available at: http://www.Last Guide/multiple_crcl_2012.htm GFR/1.73 sq M predicted among non-blacks MDRD (S/P/Bld) [Vol rate/Area]NOT REPORTEDAC[facility], KYGlucose [Mass/Vol]300 mg/gMEloc56 - 99 mg/dLACMC Healthcare [facility], KYInterpretation and review of laboratory resultsAbnormalACMC Healthcare System [facility], KYPotassium [Moles/Vol]4.5 mmol/L3.7 - 5.3 mmol/LMMarietta Osteopathic Clinic, KYProtein [Mass/Vol]6.9 g/dL6.4 - 8.3 g/dLACMC [facility], KYSodium [Moles/Vol] 133 mmol/JQwc276 - 144 mmol/LMMarietta Osteopathic Clinic, KYUrea nitrogen [Mass/Vol]26 mg/dLHigh6 - 20 mg/dLACMC Healthcare System Glen[facility], KYOtheron 54-74-3623Rljxfhpm granulocytes (Bld) [#/Vol]NOT REPORTEDACMC [facility], KYCBC Auto Differentialon 07-10-2020 Basophils (Bld) [#/Vol]0.00 10*3/[facility] [place], KYBasophils/100 WBC (Bld)0 %0 - 2 %[facility], KYDifferential TypeYESMMarietta Osteopathic Clinic, KYEosinophils (Bld) [#/Vol]0.20 10*3/[facility] [place], KYEosinophils/100 WBC (Bld)2 %0 - 5 % [facility], KYErythrocyte distribution width (RBC) [Ratio]14.5 %12.1 - 15.2 %[facility], KYHematocrit (Bld) [Volume fraction]46.9 %41 - 53 %[facility], KYHemoglobin (Bld) [Mass/Vol]15.8 g/dL13.5 - 17.5 g/dLACMC Healthcare System [facility], KYInterpretation and review of laboratory resultsAbnormalACMC [facility], KYLymphocytes (Bld) [#/Vol]1.20 10*3/[facility] [place], KYLymphocytes/100 WBC (Bld)14 %13 - 44 %[facility], KYMCH (RBC) [Entitic mass]29.3 pg26 - 34 pg [facility], KYMCHC (RBC) [Mass/Vol]33.7 g/dL31 - 37 g/dLACMC Healthcare System Glen[facility], KYMCV (RBC) [Entitic vol]86.9 fL80 - 100 [facility], KYMonocytes (Bld) [#/Vol]0.50 10*3/[facility], KYMonocytes/100 WBC (Bld)6 %5 - 9 %[facility], KYPlatelet mean volume (Bld) [Entitic vol]NOT REPORTED6 - 12 fLACMC Healthcare System Glen[facility]igh, KYPlatelets (Bld) [#/Vol]NOT REPORTEDAC[facility], KYPlatelets (Bld) [#/Vol]242 10*3/uLMercy [facility]- [place], KYRBC (Bld) [#/Vol]5.40 10*6/uL4.5 - 5.9 m/uLMercy Health- [place], KYRBC morphology finding Nom (Bld)NOT REPORTEDMercy Health- [place], KYSegmented neutrophils/100 WBC (Bld)78 %High39 - 75 %[facility] [place], KYSegs Absolute6.50[facility] [place], KYWBC (Bld) [#/Vol]NOT REPORTEDper 100 WBCMercy Health- [place], KYWBC (Bld) [#/Vol]8.4 10*3/uLMercy Health- [place], KYWBC MorphologyNOT REPORTEDMercy Health- [place], KYComprehensive Metabolic Panelon [id number] [Mass/Vol]3.9 g/dL3.5 - 5.2 g/dLMercy Health- [place], [place] Albumin/Globulin [Mass ratio]NOT REPORTEDMercy Health- [place], KYALP [Catalytic activity/Vol]91 U/L40 - 129 U/LMercy Health- [place], KYALT [Catalytic activity/Vol] 18 U/L5 - 41 U/LMercy Health- [place], KYAnion gap [Moles/Vol]11 mmol/L9 - 17 mmol/L [facility] [place], KYAST [Catalytic activity/Vol]18 U/L<40[facility] [place], [place] Bilirubin Ql (U)0.60 mg/dL0.3 - 1.2 mg/dLMercy Health- [place], KYBun/Cre Ratio12 [facility] [place], KYCalcium [Mass/Vol]10.1 mg/dL8.6 - 10.4 mg/dLMercy Health- [place], KYChloride [Moles/Vol]99 mmol/L98 - 107 mmol/LMercy Health- [place], KYCO2 [Moles/Vol]25 mmol/L20 - 31 mmol/LMercy Health- [place], KYCreatinine [Mass/Vol]1.91 mg/dLHigh0.7 - 1.2 mg/dLMercy Health- [place], KYGFR Nrmvnksp08 mL/minLow>60 [facility] [place], KYGFR Non- Wgsonmle41 mL/minLow>60[facility] [place], [place] GFR/1.73 sq M predicted among non-blacks MDRD (S/P/Bld) [Vol rate/Area]NOT REPORTEDAC[facility], KYGFR/1.73 sq M predicted among non-blacks MDRD (S/P/Bld) [Vol rate/Area][facility], MTComment on above:Average GFR for 50-59 years old: 93 mL/min/1.73sq m Chronic Kidney Disease: <60 mL/min/1.73sq m Kidney failure: <15 mL/min/1.73sq m eGFR calculated using average adult body mass. Additional eGFR calculator available at: http://www.Last Guide/multiple_crcl_2012.htm Glucose [Mass/Vol]267 mg/nVPson81 - 99 mg/dLACMC Healthcare System [facility], MTInterpretation and review of laboratory resultsAbnormalACMC [facility], KYPotassium [Moles/Vol]4.8 mmol/L3.7 - 5.3 mmol/LMMarietta Osteopathic Clinic, KYProtein [Mass/Vol]7.1 g/dL6.4 - 8.3 g/dLAC[facility], KYSodium [Moles/Vol]135 mmol/L135 - 144 mmol/LMMarietta Osteopathic Clinic, KYUrea nitrogen [Mass/Vol]22 mg/dLHigh6 - 20 mg/dLACMC [facility] System [facility], MTOtheron 15-30-1799Vbcspskt granulocytes (Bld) [#/Vol]NOT REPORTED0 %[facility], MTAlbuminon 18-51-1986Thrwomh [Mass/Vol]3.9 g/dL3.5 - 5.2 g/dLACMC [facility] System [facility], MTBUN & Creatinineon 51-27-6364Ijutnariia [Mass/Vol]1.74 mg/dLHigh0.7 - 1.2 mg/dLACMC [facility], KYGFR Ujyqpqrf53 mL/minLow>60 [facility], KYGFR Non- Huslxljo02 mL/minLow>60[facility], [place] GFR/1.73 sq M predicted among non-blacks MDRD (S/P/Bld) [Vol rate/Area]NOT REPORTEDAC[facility], MTGFR/1.73 sq M predicted among non-blacks MDRD (S/P/Bld) [Vol rate/Area][place], KYComment on above:Average GFR for 50-59 years old: 93 mL/min/1.73sq m Chronic Kidney Disease: <60 mL/min/1.73sq m Kidney failure: <15 mL/min/1.73sq m eGFR calculated using average adult body mass. Additional eGFR calculator available at: http://www.Last Guide/multiple_crcl_2011.htm Interpretation and review of laboratory resultsAbnoParkview Health, MTUrea nitrogen [Mass/Vol]26 mg/dLHigh6 - 20 mg/dLACMC [facility], MTCBC Auto Differentialon 90-14-9366Cusurlzea (Bld) [#/Vol]0.00 10*3/uLACMC Healthcare System Glen[facility]igh, [place] Basophils/100 WBC (Bld)0 %0 - 2 %[place], KYDifferential TypeYESMMarietta Osteopathic Clinic, MTEosinophils (Bld) [#/Vol]0.10 10*3/uLACMC Healthcare System Glen[facility]igh, [place] Eosinophils/100 WBC (Bld)2 %0 - 5 %[place], KYErythrocyte distribution width (RBC) [Ratio]14.6 %12.1 - 15.2 %[place], KYHematocrit (Bld) [Volume fraction]47.8 %41 - 53 %[place], KYHemoglobin (Bld) [Mass/Vol] 15.5 g/dL13.5 - 17.5 g/dLK[place], KYInterpretation and review of laboratory resultsAbnoParkview Health, MTLymphocytes (Bld) [#/Vol]0.90 10*3/uLLowACMC Healthcare System Glenbeigh, MTLymphocytes/100 WBC (Bld)13 %13 - 44 %[facility], MTMCH (RBC) [Entitic mass]28.6 pg26 - 34 pgACMC Healthcare System Glenbeigh, MTMCHC (RBC) [Mass/Vol]32.5 g/dL31 - 37 g/dLMercy Health- [place], KYMCV (RBC) [Entitic vol] 88.0 fL80 - 100 fLHolzer [facility]- [place], KYMonocytes (Bld) [#/Vol]0.40 10*3/uLHolzer Medical Center – [facility]- [place], KYMonocytes/100 WBC (Bld)6 %5 - 9 %[facility] [place], KYPlatelet mean volume (Bld) [Entitic vol]NOT REPORTED6 - 12 fLKing'S [facility]aughters [facility] [place]- [place], KYPlatelets (Bld) [#/Vol]240 10*3/[facility] [place], KYPlatelets (Bld) [#/Vol]NOT REPORTED [facility] [place] [place], KYRBC (Bld) [#/Vol]5.43 10*6/uL4.5 - 5.9 m/[facility]- [place], KYRBC morphology finding Nom (Bld)NOT REPORTEDKing'S D[facility] [place]- [place], KYSegmented neutrophils/100 WBC (Bld)79 %High39 - 75 %[facility] [place], KYSegs Absolute5.40 [facility] [place] [place], KYWBC (Bld) [#/Vol]NOT REPORTEDper 100 WBCKing'S Daughters Medical [facility] [place]- [place], [place] WBC (Bld) [#/Vol]6.9 10*3/[facility]- [place], KYWBC MorphologyNOT REPORTEDKing'S [facility] [place] [place], KYCalciumon 30-07-5067Dlumukv [Mass/Vol]9.9 mg/dL8.6 - 10.4 mg/dL [facility] [place] [place], KYComprehensive Metabolic Panelon 97-87-5118Moexxir [Mass/Vol] 3.9 g/dL3.5 - 5.2 g/dLKing'S Daughters [facility] [place] [place], KYAlbumin/Globulin [Mass ratio]NOT REPORTEDKing'S Daughters [facility] [place] [place], KYALP [Catalytic activity/Vol]95 U/L40 - 129 U/LMCleveland Clinic [facility]- [place], KYALT [Catalytic activity/Vol]15 U/L5 - 41 U/LMCleveland Clinic [facility]- [place], [place] Anion gap [Moles/Vol]11 mmol/L9 - 17 mmol/LMcleveland clinic foundation [facility]- [place], KYAST [Catalytic activity/Vol]13 U/L<40[facility] [place] [place], KYBilirubin Ql (U)0.36 mg/dL0.3 - 1.2 mg/dLMercy Health- [place], KYBun/Cre Kldif32LzaoyACMC Healthcare System [facility], KYCalcium [Mass/Vol] 9.9 mg/dL8.6 - 10.4 mg/dLACMC Healthcare System [facility], KYChloride [Moles/Vol]99 mmol/L98 - 107 mmol/LMMetroHealth [facility] [place], KYCO2 [Moles/Vol]26 mmol/L20 - 31 mmol/LMCleveland Clinic [facility]- [place], KYCreatinine [Mass/Vol]1.74 mg/dLHigh0.7 - 1.2 mg/dLACMC [facility], KYGFR Tssmafct39 mL/minLow>60[facility], KYGFR Non- Jynwaxft35 mL/minLow>60[facility], KYGFR/1.73 sq M predicted among non- blacks MDRD (S/P/Bld) [Vol rate/Area][facility], KYComment on above: Average GFR for 50-59 years old: 93 mL/min/1.73sq m Chronic Kidney Disease: <60 mL/min/1.73sq m Kidney failure: <15 mL/min/1.73sq m eGFR calculated using average adult body mass. Additional eGFR calculator available at: http://www.Last Guide/multiple_crcl_2012.htm GFR/1.73 sq M predicted among non-blacks MDRD (S/P/Bld) [Vol rate/Area]NOT REPORTEDAC[facility], KYGlucose [Mass/Vol]297 mg/jLHvaj14 - 99 mg/dLACMC [facility] System [facility], KYInterpretation and review of laboratory resultsAbnormalACMC [facility], KYPotassium [Moles/Vol]4.5 mmol/L3.7 - 5.3 mmol/LMCleveland Clinic [facility]- [place], KYProtein [Mass/Vol]7.4 g/dL6.4 - 8.3 g/dLAC[facility], KYSodium [Moles/Vol] 136 mmol/L135 - 144 mmol/LMMarietta Osteopathic Clinic, KYUrea nitrogen [Mass/Vol]26 mg/dL High6 - 20 mg/dLACMC [facility] System [facility], KYCreatinine, Random Urineon 04-03-2020 Creatinine, Ur138.8 mg/dL39 - 259 mg/dLHolzer Medical Center [facility]- [place], KYElectrolyte Panelon 72-40-5010Jotnz gap [Moles/Vol]11 mmol/L9 - 17 mmol/LMercy Health- [place], [place] Chloride [Moles/Vol]99 mmol/L98 - 107 mmol/LMercy Health- [place], KYCO2 [Moles/Vol] 26 mmol/L20 - 31 mmol/LMercy Health- [place], KYPotassium [Moles/Vol]4.5 mmol/L3.7 - 5.3 mmol/LMercy [facility]- [place], KYSodium [Moles/Vol]136 mmol/L135 - 144 mmol/LMercy Health- [place], KYHemoglobin and Hematocrit, Bloodon 51-89-7581Ougonbxqhx (Bld) [Volume fraction]47.8 %41 - 53 %[facility] [place] [place], KYHemoglobin (Bld) [Mass/Vol] 15.5 g/dL13.5 - 17.5 g/dLHolzer Medical Center [facility]- [place], KYMagnesiumon 91-49-6091Elcwyxemq [Mass/Vol]2.0 mg/dL1.6 - 2.6 mg/dLKing'S Daughters [facility] [place] [place], KYOtheron 11-12-4132Udfijiwg granulocytes (Bld) [#/Vol]NOT REPORTEDKing'S D[facility] [place]- [place], MTPTH, Intacton 34-46-5492Ngp Seswvh60.56 pg/mL15 - 65 pg/mLKing'S Daughters [facility] [place]- [place], KYComment on above:SAMPLES FROM PATIENTS ROUTINELY RECEIVING HIGH DOSE BIOTIN THERAPY MAY SHOW FALSELY DEPRESSED RESULTS. ADDITIONAL INFORMATION MAY BE REQUIRED FOR DIAGNOSIS. Phosphoruson 34-01-8017Kjeyiztba [Mass/Vol]3.9 mg/dL2.5 - 4.5 mg/dLKing'S D[facility] [place] [place], KYProtein, urine, randomon 36-94-3199Yblqyuj (U) [Mass/Vol]1450 mg/dLKing'S [facility]aughters [facility] [place] [place], MTComment on above:No normal range established.Vitamin D 25 Hydroxy on 38-09-8798Cnagsffuftntjp and review of laboratory resultsAbnormalKing'S [facility] [place]- [place], MTVit D, 25-Szsdxhg72.4 ng/mLLow30 - 100 ng/mLKing'S Daughters [facility] [place] [place], [place] Comment on above: Reference Range: Vitamin D status Range Deficiency <20 ng/mL Mild Deficiency 20-30 ng/mL Sufficiency 30-100 ng/mL Toxicity >100 ng/mL BUN & Creatinineon 12-03-7438Cbjjlcdcre [Mass/Vol]1.91 mg/dLHigh0.7 - 1.2 mg/dL [facility] [place], KYGFR Vunznqtk97 mL/minLow>60[facility] [place], KYGFR Non- Wgcqqgrv27 mL/minLow>60[facility] [place], KYGFR/1.73 sq M predicted among non-blacks MDRD (S/P/Bld) [Vol rate/Area]NOT REPORTEDHol[facility] Medical [facility]- [place], [place] GFR/1.73 sq M predicted among non-blacks MDRD (S/P/Bld) [Vol rate/Area][facility] [place] [place], KYComment on above:Average GFR for 50-59 years old: 93 mL/min/1.73sq m Chronic Kidney Disease: <60 mL/min/1.73sq m Kidney failure: <15 mL/min/1.73sq m eGFR calculated using average adult body mass. Additional eGFR calculator available at: http://www.Last Guide/multiple_crcl_2012.htm Urea nitrogen [Mass/Vol]23 mg/dLHigh6 - 20 mg/dLHolzer Medical Center [facility]- [place], KYCalciumon 90-04-4466Zdplzgt [Mass/Vol]10.0 mg/dL8.6 - 10.4 mg/dLHolzer Medical Center [facility] [place], [place] Electrolyte Panelon 37-20-2592Mgmzu gap [Moles/Vol]11 mmol/L9 - 17 mmol/LMercy Health- [place], KYChloride [Moles/Vol]99 mmol/L98 - 107 mmol/LMercy Health- [place], [place] CO2 [Moles/Vol]24 mmol/L20 - 31 mmol/LMer[facility]- [place], KYPotassium [Moles/Vol] 4.9 mmol/L3.7 - 5.3 mmol/LMercy [facility]- [place], KYSodium [Moles/Vol]134 mmol/JVuw045 - 144 mmol/LMer[facility]- [place], KYOtheron 47-04-4857Dfohyqudathmea and review of laboratory resultsAbnormalMercy Health- [place], KYAPTTon 31-96-9196dCPC Coag (Bld) [Time]58.6 [facility], KYInterpretation and review of laboratory resultsAbnoParkview Health, MTaPTT Coag (Bld) [Time]40.4 [facility], KYInterpretation and review of laboratory resultsAbnoParkview Health, MTBasic Metabolic Panelon 58-36-3181Udanc gap [Moles/Vol]14 mmol/L9 - 17 mmol/L [facility], KYBun/Cre RatioNOT REPORTEDAC[facility], KYCalcium [Mass/Vol]8.5 mg/dLLow8.6 - 10.4 mg/dLACMC [facility], KYChloride [Moles/Vol]99 mmol/L98 - 107 mmol/LMMarietta Osteopathic Clinic, KYCO2 [Moles/Vol]23 mmol/L20 - 31 mmol/L [facility], KYCreatinine [Mass/Vol]1.61 mg/dLHigh0.7 - 1.2 mg/dLAC[facility], KYGFR Tmqgdtob47 mL/minLow>60[facility], KYGFR Non- Bkqhvmtp53 mL/minLow>60[facility], KYGFR/1.73 sq M predicted among non-blacks MDRD (S/P/Bld) [Vol rate/Area]NOT REPORTEDAC[facility], [place] GFR/1.73 sq M predicted among non-blacks MDRD (S/P/Bld) [Vol rate/Area][facility], KYComment on above:Average GFR for 50-59 years old: 93 mL/min/1.73sq m Chronic Kidney Disease: <60 mL/min/1.73sq m Kidney failure: <15 mL/min/1.73sq m eGFR calculated using average adult body mass. Additional eGFR calculator available at: http://www.Last Guide/multiple_crcl_2012.htm Glucose [Mass/Vol]177 mg/nTElbz32 - 99 mg/dLACMC [facility] System [facility], KYInterpretation and review of laboratory resultsAbnoParkview Health, KYPotassium [Moles/Vol]4.3 mmol/L3.7 - 5.3 mmol/[facility], KYSodium [Moles/Vol]136 mmol/L135 - 144 mmol/[facility], KYUrea nitrogen [Mass/Vol]21 mg/dLHigh6 - 20 mg/dLACMC [facility], KYPOC Glucose Fingerstickon 71-81-3005Iljwqzs [Mass/Vol]231 mg/yKIaoi87 - 110 mg/dLACMC [facility] System [facility], KYInterpretation and review of laboratory resultsAbPaulding County Hospital, KYGlucose [Mass/Vol]220 mg/mDVtkp51 - 110 mg/dLACMC [facility], KYInterpretation and review of laboratory resultsAbPaulding County Hospital, MTAPTTon 87-40-9831lUFP Coag (Bld) [Time]40.4 [facility], KYInterpretation and review of laboratory resultsAbPaulding County Hospital, MTaPTT Coag (Bld) [Time]71.5 [facility], KYInterpretation and review of laboratory resultsAbPaulding County Hospital, KYBasic Metabolic Panelon 91-80-2932Mcygp gap [Moles/Vol]14 mmol/L9 - 17 mmol/L [facility], KYBun/Cre RatioNOT REPORTEDAC[facility], KYCalcium [Mass/Vol]8.7 mg/dL8.6 - 10.4 mg/dLACMC [facility], KYChloride [Moles/Vol]100 mmol/L98 - 107 mmol/[facility], KYCO2 [Moles/Vol]22 mmol/L20 - 31 mmol/L [facility], KYCreatinine [Mass/Vol]1.79 mg/dLHigh0.7 - 1.2 mg/dLAC[facility], KYGFR Hkejbwul14 mL/minLow>60[facility], KYGFR Non- Qhclhzun10 mL/minLow>60[facility], KYGFR/1.73 sq M predicted among non-blacks MDRD (S/P/Bld) [Vol rate/Area][facility], KYComment on above: Average GFR for 50-59 years old: 93 mL/min/1.73sq m Chronic Kidney Disease: <60 mL/min/1.73sq m Kidney failure: <15 mL/min/1.73sq m eGFR calculated using average adult body mass. Additional eGFR calculator available at: http://www.Last Guide/multiple_crcl_2012.htm GFR/1.73 sq M predicted among non-blacks MDRD (S/P/Bld) [Vol rate/Area]NOT REPORTEDAC[facility], KYGlucose [Mass/Vol]208 mg/wVMtgb73 - 99 mg/dLACMC [facility], KYInterpretation and review of laboratory resultsAbnormalACMC [facility], KYPotassium [Moles/Vol]4.2 mmol/L3.7 - 5.3 mmol/LMMarietta Osteopathic Clinic, KYSodium [Moles/Vol]136 mmol/L135 - 144 mmol/LMoh[facility]y [facility], KYUrea nitrogen [Mass/Vol]24 mg/dLHigh6 - 20 mg/dLACMC Healthcare System [facility], KYCardiac Catheterizationon 65-82-2433Vpegusm Interventional Report Demographics Patient LM Nash Date of Study 10/06/2019 Name Date of 1970 Gender Male Age 49 year(s) Race Room [id number]^[facility]^[place] Height: 69 inch, 175.26 cm Number Corporate [id number] Weight: 275 pounds, 124.7 ID # kg Patient [id number] BSA: 2.37 m^2 BMI: 40.61 Acct # kg/m^2 MR # [id number] Performing Joslyn Tucker Physician Referring # Physician Assisting Physician Additional Comments H&P reviewed and patient examined by performing physician prior to the procedure on 10/06/2019 at 0900 No changes noted. If changes, see note below. Mallampati Classification 2 / ASA Classification II : per Physician . Patient medications reviewed by Physician prior to procedure. Procedure Procedure Type: PCI procedure: PTCA / Drug Eluting Stent:, LAD and / or branches, CX and / or branches Complications:- No complication Indications: - Angina - Unstable - Coronary lesion - more than 50% Conclusions Procedure Summary Successful PCI / Drug Eluting Stent of the mid LAD. Successful PCI / Drug Eluting Stent of the distal LCX. Recommendations Routine Post Stent Orders. Medical therapy as needed. Risk factor modification. Signature Angiographic Findings Cardiac Arteries and Lesion Findings LAD: Single stenosis. Lesion on Mid LAD: 99% stenosis 32 mm length reduced to 0%. Pre procedure DAVID III flow was noted. Post Procedure DAVID III flow was present. Good runoff was present. The lesion wasdiagnosed as Moderate Risk (B). Devices used - Luge Wire 182 cm. Number of passes: 1. - Trek Balloon 2.5mm x 20mm. 2 inflation(s) to a max pressure of: 12 maite. - Xience Bailey 3.0 x 38 TIFFANIE. 1 inflation(s) to a max pressure of: 16 maite. LCx: Multiple stenosis. Lesion on Dist CX: 80% stenosis 24 mm length reduced to 0%. Pre procedure DAVID III flow was noted. Post Procedure DAVID III flow was present.Good runoff was present. The lesion was diagnosed as Moderate Risk (B). Devices used - Luge Wire 182 cm. Number of passes: 1. - Trek Balloon 2.5mm x 20mm. 1 inflation(s) to a max pressure of: 12 maite. - Xience Bailey 3.0 x 28 TIFFANIE. 1 inflation(s) to a max pressure of: 12 maite. Lesion on 1st Ob Stephanie: Ostial.70% stenosis reduced to 20%. Pre procedure DAVID III flow was noted. Post Procedure DAVID III flow was present. Good runoff was present. The lesion was diagnosed as Moderate Risk (B). Devices used - ASAuserADgents Prowater 190 cm. Number of passes: 1. - Trek Balloon 2.5mm x 20mm. 1 inflation(s) to a max pressure of: 8 maite. Coronary Tree Dominance: Right Procedure Data Procedure Start Time: 10/06/2019 09:14. Procedure End Time: 10/06/2019 09:50. The procedure was explained in detail to the patient. Risks, complications and alternative treatments were reviewed. Written consent was obtained. Intervent ional Cath Status: Urgent Entry Locations - Retrograde Percutaneous access was performed through the Right Femoral artery. A 6 Fr sheath was inserted. Hemostasis was successfully obtained using 6 Fr.Angioseal. Diagnostic catheters: - 6F Guide Catheter XB 3.5was used for Left coronary angiography. Procedure Medications: - Heparin I.V. drip . - Versed I.V. 2 mg. - Fentanyl I.V. 50 mcg. - LidocaineHCl 1% 10mg/ml S.Q. 20 ml. - Angiomax I.V. bolus 19 ml. - Angiomax I.V. drip 43.4 ml/hr. - Oxygen NC 2 l/min. - Nitroglycerin I.C. 200 mcg. - Nitroglycerin I.C. 200 mcg. - Brilinta P.O. 180 mg. Contrast Material: - Optiray [id number] ml Fluoroscopy Time: Diagnostic: 6:36 minutes. Total: 6:36 minutes. Es timated Blood Loss: 5 ml. Medical History History of Disease + + + + !Diagnosis !Date !Comments ! + ------+ + + !Previous Scan !12/08/2010!wnl ! + + + + !DVT ! !Bilateral legs ! + + + + !Pulmonary Embolism ! ! ! + + + + !Green Field Filter ! ! ! + + + + Allergies - *No Known Allergies allergy. Risk Factors The patient risk factors include:obesity, treated hypercholesterolemia, uncontrolled hypertension, insulin-treated diabetes mellitus, last creatinine: 1.8 mg/dl and creatinine clearance: 86.62 ml/min. 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 Hemodynamics Condition: Baseline Room Air Estimated: 317.58 Shunts Oxygen Values O2 Bpkbbnit856.76O2 Lgmhubbdzjk157.58[facility] [place]- NJJeff Mhpn Incoming Cardio [facility] From [facility]/ - 10/06/2019 10:00 AM EST Cardiac Interventional Report Demographics Patient LM Nash Date of Study 10/06/2019 Name Date of 1970 Gender Male Age 49 year(s) Race Room [id number]^[facility]^[place] Height: 69 inch, 175.26 cm Number Corporate [id number] Weight: 275 pounds, 124.7 ID # kg Patient [id number] BSA: 2.37 m^2 BMI: 40.61 Acct # kg/m^2 MR # [id number] Performing Joslyn Tucker Physician Referring # Physician Assisting Physician Additional Comments H&P reviewed and patient examined by performing physician prior to the procedure on 10/06/2019 at 0900 No changes noted. If changes, see note below. Mallampati Classification 2 / ASA Classification II : per Physician . Patient medications reviewed by Physician prior to procedure. Procedure Procedure Type: PCI procedure: PTCA / Drug Eluting Stent:, LAD and / or branches, CX and / or branches Complications: - No complication Indications: - Angina - Unstable - Coronary lesion - more than 50% Conclusions Procedure Summary Successful PCI / Drug Eluting Stent of the mid LAD. Successful PCI / Drug Eluting Stent of the distal LCX. Recommendations Routine Post Stent Orders. Medical therapy as needed. Risk factor modification. Signature Angiographic Findings Cardiac Arteries and Lesion Findings LAD: Single stenosis. Lesion on Mid LAD: 99% stenosis 32 mm length reduced to 0%. Pre procedure DAVID III flow was noted. Post Procedure DAVID III flow was present. Good runoff was present. The lesion was diagnosed as Moderate Risk (B). Devices used - Luge Wire 182 cm. Number of passes: 1. - Trek Balloon 2.5mm x 20mm. 2 inflation(s) to a max pressure of: 12 maite. - Xience Bailey 3.0 x 38 TIFFANIE. 1 inflation(s) to a max pressure of: 16 maite. LCx: Multiple stenosis. Lesion on Dist CX: 80% stenosis 24 mm length reduced to 0%. Pre procedure DAVID III flow was noted. Post Procedure DAVID III flow was present. Good runoff was present. The lesion was diagnosed as Moderate Risk (B). Devices used - Luge Wire 182 cm. Number of passes: 1. - Trek Balloon 2.5mm x 20mm. 1 inflation(s) to a max pressure of: 12 maite. - Xience Bailey 3.0 x 28 TIFFANIE. 1 inflation(s) to a max pressure of: 12 maite. Lesion on 1st Ob Stephanie: Ostial.70% stenosis reduced to 20%. Pre procedure DAVID III flow was noted. Post Procedure DAVID III flow was present. Good runoff was present. The lesion was diagnosed as Moderate Risk (B). Devices used - ASAHI Prowater 190 cm. Number of passes: 1. - Trek Balloon 2.5mm x 20mm. 1 inflation(s) to a max pressure of: 8 maite. Coronary Tree Dominance: Right Procedure Data Procedure Start Time: 10/06/2019 09:14. Procedure End Time: 10/06/2019 09:50. The procedure was explained in detail to the patient. Risks, complications and alternative treatments were reviewed. Written consent was obtained. Interventional Cath Status: Urgent Entry Locations - Retrograde Percutaneous access was performed through the Right Femoral artery. A 6 Fr sheath was inserted. Hemostasis was successfully obtained using 6 Fr. Angioseal. Diagnostic catheters: - 6F Guide Catheter XB 3.5was used for Left coronary angiography. Procedure Medications: - Heparin I.V. drip . - Versed I.V. 2 mg. - Fentanyl I.V. 50 mcg. - Lidocaine HCl 1% 10mg/ml S.Q. 20 ml. - Angiomax I.V. bolus 19 ml. - Angiomax I.V. drip 43.4 ml/hr. - Oxygen NC 2 l/min. - Nitroglycerin I.C. 200 mcg. - Nitroglycerin I.C. 200 mcg. - Brilinta P.O. 180 mg. Contrast Material: - Optiray [id number] ml Fluoroscopy Time: Diagnostic: 6:36 minutes. Total: 6:36 minutes. Estimated Blood Loss: 5 ml. Medical History History of Disease + + + + !Diagnosis !Date !Comments ! + + + + !Previous Scan !12/08/2010!wnl ! + + + + !DVT ! !Bilateral legs ! + + + + !Pulmonary Embolism ! ! ! + + + + !Green Field Filter ! ! ! + + + + Allergies - *No Known Allergies allergy. Risk Factors The patient risk factors include:obesity, treated hypercholesterolemia, uncontrolled hypertension, insulin-treated diabetes mellitus, last creatinine: 1.8 mg/dl and creatinine clearance: 86.62 ml/min. Admission Data Admission Date: 09/29/2019 Admission Status: Inpatient -The patient's anginal syndrome was assessed as CCS III according to the Mauritian clinical classification. Hemodynamics Condition: Baseline Room Air Estimated: 317.58 Shunts Oxygen Values O2 Laeshoni442.76O2 Ngtsdqoxtjp038.58 [facility], MTPOC Glucose Fingerstickon 15-60-4567Gtjkrce [Mass/Vol]221 mg/kERppw60 - 110 mg/dLACMC [facility], KYInterpretation and review of laboratory resultsAbnormWadsworth-Rittman Hospital, KYGlucose [Mass/Vol]189 mg/sBAutd38 - 110 mg/dLACMC [facility], KYInterpretation and review of laboratory results AbnormalAC[facility], KYGlucose [Mass/Vol]131 mg/sTLsff01 - 110 mg/dLACMC [facility], KYInterpretation and review of laboratory resultsAbnoParkview Health, KYPlatelet counton 05-33-8134Vgttioxgk (Bld) [#/Vol]213 10*3/uLACMC Healthcare [facility], KYAPTTon 66-23-1841sILN Coag (Bld) [Time]67.9 [facility], KYInterpretation and review of laboratory resultsAbPaulding County Hospital, KYBasic Metabolic Panelon 42-77-4993Hktue gap [Moles/Vol]10 mmol/L9 - 17 mmol/L [facility], KYBun/Cre RatioNOT REPORTEDACMC [facility], KYCalcium [Mass/Vol]8.6 mg/dL8.6 - 10.4 mg/dLACMC [facility], KYChloride [Moles/Vol]102 mmol/L98 - 107 mmol/LMMarietta Osteopathic Clinic, KYCO2 [Moles/Vol]25 mmol/L20 - 31 mmol/L [facility], KYCreatinine [Mass/Vol]1.78 mg/dLHigh0.7 - 1.2 mg/dLACMC [facility], KYGFR Dzuksymv98 mL/minLow>60[facility], KYGFR Non- Utmppydu68 mL/minLow>60[facility], MTGFR/1.73 sq M predicted among non-blacks MDRD (S/P/Bld) [Vol rate/Area][facility], MTComment on above: Average GFR for 50-59 years old: 93 mL/min/1.73sq m Chronic Kidney Disease: <60 mL/min/1.73sq m Kidney failure: <15 mL/min/1.73sq m eGFR calculated using average adult body mass. Additional eGFR calculator available at: http://www.Last Guide/multiple_crcl_2012.htm GFR/1.73 sq M predicted among non-blacks MDRD (S/P/Bld) [Vol rate/Area]NOT REPORTEDAC[facility], MTGlucose [Mass/Vol]188 mg/tQGiad03 - 99 mg/dLACMC [facility], MTInterpretation and review of laboratory resultsAbnoParkview Health, KYPotassium [Moles/Vol]4.2 mmol/L3.7 - 5.3 mmol/LMMarietta Osteopathic Clinic, KYSodium [Moles/Vol]137 mmol/L135 - 144 mmol/LMMarietta Osteopathic Clinic, KYUrea nitrogen [Mass/Vol]23 mg/dLHigh6 - 20 mg/dLAC[facility], MTPOC Glucose Fingerstickon 89-11-2846Znauuqe [Mass/Vol]228 mg/kCVnoj19 - 110 mg/dLACMC [facility], [place] Interpretation and review of laboratory resultsAbnoParkview Health, [place] Glucose [Mass/Vol]148 mg/bOXxbr42 - 110 mg/dLACMC [facility], MTInterpretation and review of laboratory resultsAbnoParkview Health, MTGlucose [Mass/Vol] 188 mg/dWIlvs93 - 110 mg/dLACMC [facility], MTInterpretation and review of laboratory resultsAbPaulding County Hospital, MTGlucose [Mass/Vol]132 mg/eTRmwx22 - 110 mg/dLACMC [facility], MTInterpretation and review of laboratory results AbnormalAC[facility], MTAPTDignity Health [facility] 19-60-5807gQGS Coag (Bld) [Time]63.9 [facility], KYInterpretation and review of laboratory resultsAbnoParkview Health, KYaPTT Coag (Bld) [Time]66.0 [facility], [place] Interpretation and review of laboratory resultsAbnoParkview Health, MTaPTT Coag (Bld) [Time]73.3 [facility], KYInterpretation and review of laboratory resultsAbnoParkview Health, MTBasic Metabolic Panelon 10-04-2019 Anion gap [Moles/Vol]11 mmol/L9 - 17 mmol/LMMarietta Osteopathic Clinic, KYBun/Cre RatioNOT REPORTEDAC[facility], KYCalcium [Mass/Vol]8.7 mg/dL8.6 - 10.4 mg/dLAC[facility], KYChloride [Moles/Vol]103 mmol/L98 - 107 mmol/[facility], [place] CO2 [Moles/Vol]24 mmol/L20 - 31 mmol/[facility], KYCreatinine [Mass/Vol] 1.54 mg/dLHigh0.7 - 1.2 mg/dLAC[facility], KYGFR Zurijujw66 mL/min Low>60[facility], KYGFR Non- Klsgifnr39 mL/minLow>60[facility], KYGFR/1.73 sq M predicted among non-blacks MDRD (S/P/Bld) [Vol rate/Area]NOT REPORTEDAC[facility], KYGFR/1.73 sq M predicted among non-blacks MDRD (S/P/Bld) [Vol rate/Area][facility], KYComment on above:Average GFR for 50-59 years old: 93 mL/min/1.73sq m Chronic Kidney Disease: <60 mL/min/1.73sq m Kidney failure: <15 mL/min/1.73sq m eGFR calculated using average adult body mass. Additional eGFR calculator available at: http://www.[facility].Social Reality/multiple_crcl_2012.htm Glucose [Mass/Vol]143 mg/kKBfan55 - 99 mg/dLACMC [facility], KYInterpretation and review of laboratory resultsAbnoParkview Health, KYPotassium [Moles/Vol]4.0 mmol/L3.7 - 5.3 mmol/[facility], KYSodium [Moles/Vol]138 mmol/L135 - 144 mmol/[facility], KYUrea nitrogen [Mass/Vol]20 mg/dL6 - 20 mg/dLACMC [facility], KYPOC Glucose Fingerstickon 25-04-6049Vvdbwpl [Mass/Vol] 223 mg/aMQrrg83 - 110 mg/dLACMC [facility], KYInterpretation and review of laboratory resultsAbnoParkview Health, KYGlucose [Mass/Vol]183 mg/lLMmau72 - 110 mg/dLACMC [facility], KYInterpretation and review of laboratory results AbnormalACMC [facility], KYGlucose [Mass/Vol]85 mg/dL75 - 110 mg/dLAC[facility], KYGlucose [Mass/Vol]95 mg/dL75 - 110 mg/dLAC[facility], [place] Glucose [Mass/Vol]64 mg/dLLow75 - 110 mg/dLACMC [facility], KYInterpretation and review of laboratory resultsAbnoParkview Health, MTPlatelet counton 99-87-1221Nhxahmtpk (Bld) [#/Vol]234 10*3/[facility], MTAPTTon 88-74-0821fZIK Coag (Bld) [Time]55.5 [facility], KYInterpretation and review of laboratory resultsAbnoParkview Health, MTaPTT Coag (Bld) [Time] 40.1 [facility], KYInterpretation and review of laboratory results AbnormalAC[facility], MTaPTT Coag (Bld) [Time]48.9 [facility], [place] Interpretation and review of laboratory resultsAbnoParkview Health, MTaPTT Coag (Bld) [Time]27.3 [facility], KYBasic Metabolic Panelon 10-03-2019 Anion gap [Moles/Vol]11 mmol/L9 - 17 mmol/LMMarietta Osteopathic Clinic, KYBun/Cre RatioNOT REPORTEDAC[facility], KYCalcium [Mass/Vol]8.6 mg/dL8.6 - 10.4 mg/dLAC[facility], KYChloride [Moles/Vol]103 mmol/L98 - 107 mmol/LMMarietta Osteopathic Clinic, [place] CO2 [Moles/Vol]25 mmol/L20 - 31 mmol/LMMarietta Osteopathic Clinic, KYCreatinine [Mass/Vol] 1.5 mg/dLHigh0.7 - 1.2 mg/dLAC[facility], KYGFR >60>60 mL/minACMC Healthcare System [facility], KYGFR Non- Grfhzjol60 mL/minLow>60[facility], KYGFR/1.73 sq M predicted among non-blacks MDRD (S/P/Bld) [Vol rate/Area]NOT REPORTEDAC[facility], KYGFR/1.73 sq M predicted among non-blacks MDRD (S/P/Bld) [Vol rate/Area][facility], KYComment on above:Average GFR for 50-59 years old: 93 mL/min/1.73sq m Chronic Kidney Disease: <60 mL/min/1.73sq m Kidney failure: <15 mL/min/1.73sq m eGFR calculated using average adult body mass. Additional eGFR calculator available at: http://www.Last Guide/multiple_crcl_2011.htm Glucose [Mass/Vol]109 mg/xPRoql76 - 99 mg/dLACMC [facility], KYInterpretation and review of laboratory resultsAbnormalAC[facility], KYPotassium [Moles/Vol]4.3 mmol/L3.7 - 5.3 mmol/LMMarietta Osteopathic Clinic, KYSodium [Moles/Vol]139 mmol/L135 - 144 mmol/LMMarietta Osteopathic Clinic, KYUrea nitrogen [Mass/Vol]18 mg/dL6 - 20 mg/dLACMC [facility], KYHemoglobin A1Con 61-48-9359Yloxlsx [Mass/Vol]171 mg/dL [facility], KYComment on above:The ADA and AACC recommend providing the estimated average glucose result to permit better patient understanding of their HBA1c result. HbA1c (Bld) [Mass fraction]7.6 %High4 - 6 %[facility], KYInterpretation and review of laboratory resultsAbnoParkview Health, KYPOC Glucose Fingerstickon 74-92-8895Iumjgbe [Mass/Vol]215 mg/vJHchs93 - 110 mg/dLACMC [facility], KYInterpretation and review of laboratory resultsAbnoParkview Health, KYGlucose [Mass/Vol]194 mg/fBDjma78 - 110 mg/dLACMC [facility], [place] Interpretation and review of laboratory resultsAbnoParkview Health, [place] Glucose [Mass/Vol]95 mg/dL75 - 110 mg/dLAC[facility], KYGlucose [Mass/Vol] 101 mg/dL75 - 110 mg/dLACMC [facility], KYVL DUP CAROTID BILATERALon 10-03-2019 Elvis, Mhpn Incoming Cardio Results From [facility]/Ge - 10/03/2019 10:00 PM EST [facility] Vascular Carotid Procedure Patient Name LM Date of Study 10/03/2019 LORENZO Nash Date of 1970 Gender Male Age 49 year(s) Race Room Number 2007 Height: 69 inch, 175.26 cm Corporate ID [id number] Weight: 288 pounds, 130.6 kg # Patient Acct [id number] BSA: 2.41 m^2 BMI: 42.53 kg/m^2 # MR # [id number] [employer] Tamra Mcbride T Interpreting Physician Nalini Stone Referring Referring Physician VINNIE Eason Nurse Practitioner Procedure Type of Study: Cerebral: Carotid, Carotid Scan Bilateral. Indications for Study:Pre-op OHS. Patient Status:In Patient. Comments:Basic Classification of ICA Stenosis: PSV - Peak Systolic Velocity Normal: No plaque or calcification identified, no elevation of PSV Mild: <50% spectral broadening without increased PSV Moderate: 50 - 69% PSV >125 - <230 cm/sec Severe: 70 - 99% PSV >230 cm/sec Critical: 80 - 99% PSV >230cm/sec and/or End Diastolic Velocities >120cm/sec. Conclusions Summary Simultaneous real time imaging utilizing B-Mode, color flow doppler and spectral waveform analysis was performed on the bilateral extracerebral vascular system. The study demonstrates: Right: Internal carotid artery has a moderate, 50-69% stenosis based on velocities. The vertebral artery is patent with antegrade flow. Left: The internal carotid artery is normal. The vertebral artery is patent with antegrade flow. Signature Findings: Right Impression: Left Impression: The common carotid artery is normal. The common carotid artery is normal. The carotid bulb has a smooth calcific plaque causing a <50% stenosis. The carotid bulb has a smooth fibrocalcific plaque causing a The internal carotid artery has smooth <50% stenosis. calcific plaque causing a 50-69% stenosis based on velocities. The internal carotid artery is normal. The external carotid artery has a smooth calcific plaque causing a <50% stenosis. The external carotid artery is normal. The vertebral artery is patent with antegrade flow. The vertebral artery is patent with antegrade flow. Risk Factors History + + + + !Diagnosis !Date !Comments ! + + + + !Previous Scan !12/08/2010!wnl ! + + + + !DVT ! !Bilateral legs ! + + + + !Pulmonary Embolism ! ! ! + + + + !Green Field Filter ! ! ! + + + + - The patient's risk factor(s) include: insulin-treated diabetes mellitus, obesity and arterial hypertension. - The patient has liver cancer. - The patient's last creatinine was 1.7 mg/dl. Allergies - Allergy:*No Known Allergies(Miscellaneous). Velocities are measured in cm/s ; Diameters are measured in cm Carotid Right Measurements + +-------+-------+--------+-------+ + + !Location !PSV !EDV !Angle !RI !%Stenosis !Tortuosity ! + +-------+-------+--------+-------+ + + !Prox CCA !87.8 !12.5 !60 !0.86 ! ! ! + +-------+-------+--------+-------+ + + !Mid CCA !71.3 !15.7 !60 !0.78 ! ! ! + +-------+-------+--------+-------+ + + !Dist CCA !66.6 !15.7 !60 !0.76 ! ! ! + +-------+-------+--------+-------+ + + !Bulb !84.7 !18.8 !60 !0.78 ! ! ! + +-------+-------+--------+-------+ + + !Prox ICA !154 !43.9 !60 !0.71 ! ! ! + +-------+-------+--------+-------+ + + !Mid ICA !121 !29.6 !60 !0.76 ! ! ! + +-------+-------+--------+-------+ + + !Dist ICA !90 !26.3 !60 !0.71 ! ! ! + +-------+-------+--------+-------+ + + !Prox ECA !110 !20.9 !60 !0.81 ! ! ! + +-------+-------+--------+-------+ + + !Vertebral !47.2 !23 !60 !0.51 ! ! ! + +-------+-------+--------+-------+ + + - There is antegrade vertebral flow noted on the right side. - Additional Measurements:ICAPSV/CCAPSV 1.75.ICAEDV/CCAEDV 3.51. Carotid Left Measurements + +-------+-------+--------+-------+ + + !Location !PSV !EDV !Angle !RI !%Stenosis !Tortuosity ! + +-------+-------+--------+-------+ + + !Prox CCA !119 !14.3 !60 !0.88 ! ! ! + +-------+-------+--------+-------+ + + !Mid CCA !73.5 !15.4 !60 !0.79 ! ! ! + +-------+-------+--------+-------+ + + !Dist CCA !74.6 !24.1 !60 !0.68 ! ! ! + +-------+-------+--------+-------+ + + !Bulb !69.6 !16.8 !60 !0.76 ! ! ! + +-------+-------+--------+-------+ + + !Prox ICA !61.5 !16.8 !60 !0.73 ! ! ! + +-------+-------+--------+-------+ + + !Mid ICA !82.6 !24.2 !60 !0.71 ! ! ! + +-------+-------+--------+-------+ + + !Dist ICA !107 !32.1 !60 !0.7 ! ! ! + +-------+-------+--------+-------+ + + !Prox ECA !101 !15.6 !60 !0.85 ! ! ! + +-------+-------+--------+-------+ + + !Vertebral !49.4 !18.2 !60 !0.63 ! ! ! + +-------+-------+--------+-------+ + + - There is antegrade vertebral flow noted on the left side. - Additional Measurements:ICAPSV/CCAPSV 0.9.ICAEDV/CCAEDV 2.24.[facility] Vascular Carotid Procedure Patient Name LM Date of Study 10/03/2019 LORENZO Nash Date of 1970 Gender Male Age 49 year(s) Race Room Number 2006 Height:69 inch, 175.26 cm Corporate ID [id number] Weight: 288 pounds, 130.6 kg # Patient Acct [id number] BSA:2.41 m^2 BMI: 42.53 kg/m^2 # MR # [id number] [employer] Tamra Mcbride Deniz Interpreting Physician Nalini Stone Referring Referring Physician VINNIE Eason Nurse Practitioner Procedure Type of Study: Cerebral: Carotid, Carotid Scan Bilateral. Indications for Study:Pre-op OHS. Patient Status:In Patient. Comments:Basic Classification of ICA Stenosis: PSV - Peak Systolic Ve locity Normal: No plaque or calcification identified, no elevation of PSV Mild: <50% spectral broadening without increased PSV Moderate: 50 - 69% PSV >125 - <230 cm/sec Severe: 70 - 99% PSV >230 cm/sec Critical: 80 - 99% PSV >230cm/sec and/or End Diastolic Velocities >120cm/sec. Conclusions Summary Simultaneous real time imaging utilizing B-Mode, color flow doppler and spectral waveform analysis was performed on the bilateral extracerebral vascular system. The study demonstrates: Right: Internal carotid artery has a moderate, 50-69% stenosis based on velocities. The vertebral artery is patent with antegrade flow. Left: The internal carotid artery is normal. The vertebral artery is patent with antegrade flow. Signature Findings: Right Impression: Left Impression: The common carotid artery is normal. The common carotid artery is normal. The carotid bulb has a smooth calcific plaque causing a <50% stenosis. The carotid bulb has a smooth fibrocalcific plaque causing a The internal carotid artery has smooth <50% stenosis. calcific plaquecausing a 50-69% stenosis based on velocities. The internal carotid artery is normal. The external carotid artery has a smooth calcific plaque causing a <50% stenosis. The external carotid artery is normal. The vertebral artery is patent with antegrade flow. The vertebral artery is patent with antegrade flow. Risk Factors History + + + + !Diagnosis !Date !Comments ! + + + + !Previous Scan !12/08/2010!wnl ! + + + + !DVT ! !Bilateral legs ! + +------ ----+ + !Pulmonary Embolism ! ! ! + + + + !Green Field Filter ! ! ! + + + + - The patient's risk factor(s) include: insulin-treated diabetes mellitus, obesity and arterial hypertension. - The patient has liver cancer. - The patient's last creatinine was 1.7 mg/dl. Allergies - Allergy:*No Known Allergies(Miscellaneous). Velocities are measured in cm/s ; Diameters are measured in cm Carotid Right Measurements + +-------+-------+--------+-------+ + + !Location !PSV !EDV !Angle !RI !%Stenosis !Tortuosity ! + +-------+-------+--------+-------+ + + !Prox CCA !87.8 !12.5 !60 !0.86 ! ! ! + +-------+-------+--------+-------+ + + ! Mid CCA !71.3 !15.7 !60 !0.78 ! ! ! + +-------+-------+--------+-------+ + + !Dist CCA !66.6 !15.7 !60 !0.76 ! ! ! + +-------+-------+--------+-------+ + + !Bulb !84.7 !18.8 !60 !0.78 ! ! ! + +-------+-------+-------- +-------+ + + !Prox ICA !154 !43.9 !60 !0.71 ! ! ! + +-------+-------+--------+-------+ + + !Mid ICA !121 !29.6 !60 !0.76 ! ! ! + --+-------+-------+--------+-------+ + + !Dist ICA !90 !26.3 !60 !0.71 ! !! + +-------+-------+--------+-------+ + + !Prox ECA !110 !20.9!60 !0.81 ! ! ! + +-------+-------+--------+-------+ + + !Vertebral !47.2 !23 !60 !0.51 ! ! ! + +-------+-------+--------+-------+ + + - There is antegrade vertebral flow noted on the right side. - Additional Measurements:ICAPSV/CCAPSV 1.75.ICAEDV/CCAEDV 3.51. Carotid Left Measurements + +-------+-------+--------+-------+ + + !Location !PSV !EDV !Angle !RI !%Stenosis !Tortuosity ! +------ ------+-------+-------+--------+-------+ + + !Prox CCA !119 !14.3 !60 !0.88 ! ! ! + +-------+-------+--------+-------+ + + !Mid CCA !73.5 !15.4 !60 !0.79 ! ! ! + +-------+-------+--------+-------+ + + !D ist CCA !74.6 !24.1 !60 !0.68 ! ! ! + +-------+-------+--------+-------+ + + !Bulb !69.6 !16.8 !60 !0.76 ! ! ! + +-------+-------+--------+-------+ + + !Prox ICA !61.5 !16.8 !60 !0.73 ! ! ! + +-------+-------+------- -+-------+ + + !Mid ICA !82.6 !24.2 !60 !0.71 ! ! ! + +-------+-------+--------+-------+ + + !Dist ICA !107 !32.1 !60 !0.7 ! ! ! +--------- ---+-------+-------+--------+-------+ + + !Prox ECA !101 !15.6 !60 !0.85 !! ! + +-------+-------+--------+-------+ + + !Vertebral !49.4 !18.2 !60 !0.63 ! ! ! + +-------+-------+--------+-------+ + + - There is antegrade vertebral flow noted on the left side. - Additional Measurements:ICAPSV/CCAPSV 0.9.ICAEDV/CCAEDV 2.24.[facility] LOWER EXTREMITY VEN[facility]ALon [facility] D[facility] Study Procedure Patient Name LM Date ofStudy 10/03/2019 LORENZO Nash Date of 1970 Gender Male Age 49 year(s) Race Room Number 2006 Height: 69 inch, 175.26 cm Corporate ID [id number] Weight: 288 pounds, 130.6 kg # Patient Acct [id number] BSA: 2.41 m^2 BMI: 42.53 kg/m^2 # MR # [id number] [employer] Tamra Mcbride RVT Interpreting Physician Nalini Stone Referring Referring Physician Nurse Practitioner Procedure Type of Study: Veins: Lower Extremities DVT Study, Venous Scan Lower Bilateral. Indications for Study:Hx of DVT. Patient Status:In Patient. - Critical Result:VINNIE Palafox 9:30 am. Conclusions Summary Simultaneous real time imaging utilizing B-Mode, color doppler and spectral waveform analysis was performed on the bilateral lower extremities for venous examination of the deep andsuperficial systems. Findings are: Right: Acute deep venous thrombosis extending from the femoral vein into the external iliac vein. Left: Acute deep venous thrombosis extending from the femoral veininto the external iliac vein. Signature Findings: Right Impression: LeftImpression: The external iliac and common The external iliac and common femoral femoral veins are non compressible. veins are non compressible. The proximal femoral and The proximal femoral and saphenofemoral junction are saphenofemoral junction are partially partially compressible. compressible. The mid to distal femoral, popliteal The mid to distal femoral, popliteal and tibial veins demonstrate normal and tibial veins demonstrate normal compressibility and augmentation. compressibility and augmentation. Normal compressibility of the great Normal compressibility of the great saphenous vein.saphenous vein. Normal compressibility of the small Normal compressibility of the small saphenous vein. saphenous vein. Risk Factors History + + +--------- + !Diagnosis !Date !Comments ! + + + + !Previous Scan !12/08/2010!wnl ! + +--- -------+ + !DVT ! !Bilateral legs ! + + + + !Pulmonary Embolism ! ! ! + -+ + + !Green Field Filter ! ! ! + + + + - The patient's risk factor(s) include: insulin-treateddiabetes mellitus, obesity and arterial hypertension. - The patient has liver cancer. - The patient's last creatinine was 1.7 mg/dl. Allergies - Allergy:*No Known Allergies(Miscellaneous). Velocitiesare measured in cm/s ; Diameters are measured in cm Right Lower Extremities DVT Study Measurements Right 2D Measurements + + + + + !L ocation !Visualized!Compressibility!Thrombosis! + + + + + !Common Femoral !Yes !No !AI ! + +------ ----+ + + !Prox Femoral !Yes !Partial !AI ! + + + + + !Mid Femoral !Yes !Yes !None ! + + + + + !Dist Femoral !Yes !Yes !None ! + + + + + !Deep Femoral !No ! ! ! + + + + + !Popliteal !Yes !Yes !None ! +------ + + + + !Sapheno Femoral Junction !Yes !Partial !AI ! + + + + + !PTV !Yes !Yes !None ! + + + + + !Peroneal !Yes !Yes !None ! + + + + + ! Gastroc !Yes !Yes !None ! + + + + + !GSV Thigh !Yes !Yes !None ! + + + + + !GSV Knee !Yes !Yes !None ! + + + + + !GSV Ankle !Yes !Yes !None ! + + + + + !SSV !Yes !Yes !None ! + + +------- --------+ + Right Doppler Measurements + + +------+ + !Location !Signal !Reflux!Reflux (msec) ! + +------ ----+------+ + !Common Femoral !Absent ! ! ! + + +------+ + !Prox Femoral !Diminished! ! ! + ---------+ +------+ + !Popliteal !Phasic ! ! ! + + +------+ + Left Lower Extremities DVT Study Measurements Left 2D Measurements + + + + + !Location !Visualized!Compressibility!Thrombosis! + + + + + !Common Femoral !Yes !No !AI ! + --+ + + + !Prox Femoral !Yes !Partial !AI ! + + + + + !Mid Femoral !Yes !Yes !None ! + + + + + !Dist Femoral !Yes !Yes !None ! +----- + + + + !Deep Femoral !No ! ! ! +---- + + + + !Popliteal !Yes !Yes !None ! + + + + + !Sapheno Femoral Junction !Yes !Partial !AI ! + + + + + !PTV !Yes !Yes !None ! + + + + + !Peroneal !Partial !Yes !None ! + + + + + !Gastroc !Yes !Yes !None ! + + + + + !GSV Thigh !Yes !Yes !None ! + + + + + !GSV Knee !Yes !Yes !None ! + + +- + + !GSV Ankle !Yes !Yes !None ! + + + + + !SSV !Yes !Yes !None ! + +----- -----+ + + Left Doppler Measurements + + +------+ + !Location !Signal !Reflux!Reflux (msec) ! + -----+ +------+ + !Common Femoral !Absent ! ! ! + + +------+ + !Prox Femoral !Diminished! ! ! +----- + +------+ + !Popliteal !Phasic ! ! ! +--- + +------+ +[facility] KAMINSKI Mhpn Incoming Cardio Results From [facility]/[employer] - 10/03/2019 10:06 PM [facility] Vascular Lower Extremities DVT Study Procedure Patient Name LM Date of Study 10/03/2019 LORENZO Nash Date of 1970 Gender Male Age 49 year(s) Race Room Number 2007 Height: 69 inch, 175.26 cm Corporate ID [id number] Weight: 288 pounds, 130.6 kg # Patient Acct [id number] BSA: 2.41 m^2 BMI: 42.53 kg/m^2 # MR # [id number] Inspector Precision Tamra Mcbride RVT Interpreting Physician Nalini Stone Referring Referring Physician Nurse Practitioner Procedure Type of Study: Veins: Lower Extremities DVT Study, Venous Scan Lower Bilateral. Indications for Study:Hx of DVT. Patient Status:In Patient. - Critical Result:VINNIE Palafox 9:30 am. Conclusions Summary Simultaneous real time imaging utilizing B-Mode, color doppler and spectral waveform analysis was performed on the bilateral lower extremities for venous examination of the deep and superficial systems. Findings are: Right: Acute deep venous thrombosis extending from the femoral vein into the external iliac vein. Left: Acute deep venous thrombosis extending from the femoral vein into the external iliac vein. Signature Findings: Right Impression: Left Impression: The external iliac and common The external iliac and common femoral femoral veins are non compressible. veins are non compressible. The proximal femoral and The proximal femoral and saphenofemoral junction are saphenofemoral junction are partially partially compressible. compressible. The mid to distal femoral, popliteal The mid to distal femoral, popliteal and tibial veins demonstrate normal and tibial veins demonstrate normal compressibility and augmentation. compressibility and augmentation. Normal compressibility of the great Normal compressibility of the great saphenous vein. saphenous vein. Normal compressibility of the small Normal compressibility of the small saphenous vein. saphenous vein. Risk Factors History + + + + !Diagnosis !Date !Comments ! + + + + !Previous Scan !12/08/2010!wnl ! + + + + !DVT ! !Bilateral legs ! + + + + !Pulmonary Embolism ! ! ! + + + + !Green Field Filter ! ! ! + + + + - The patient's risk factor(s) include: insulin-treated diabetes mellitus, obesity and arterial hypertension. - The patient has liver cancer. - The patient's last creatinine was 1.7 mg/dl. Allergies - Allergy:*No Known Allergies(Miscellaneous). Velocities are measured in cm/s ; Diameters are measured in cm Right Lower Extremities DVT Study Measurements Right 2D Measurements + + + + + !Location !Visualized!Compressibility!Thrombosis! + + + + + !Common Femoral !Yes !No !AI ! + + + + + !Prox Femoral !Yes !Partial !AI ! + + + + + !Mid Femoral !Yes !Yes !None ! + + + + + !Dist Femoral !Yes !Yes !None ! + + + + + !Deep Femoral !No ! ! ! + + + + + !Popliteal !Yes !Yes !None ! + + + + + !Sapheno Femoral Junction !Yes !Partial !AI ! + + + + + !PTV !Yes !Yes !None ! + + + + + !Peroneal !Yes !Yes !None ! + + + + + !Gastroc !Yes !Yes !None ! + + + + + !GSV Thigh !Yes !Yes !None ! + + + + + !GSV Knee !Yes !Yes !None ! + + + + + !GSV Ankle !Yes !Yes !None ! + + + + + !SSV !Yes !Yes !None ! + + + + + Right Doppler Measurements + + +------+ + !Location !Signal !Reflux!Reflux (msec) ! + + +------+ + !Common Femoral !Absent ! ! ! + + +------+ + !Prox Femoral !Diminished! ! ! + + +------+ + !Popliteal !Phasic ! ! ! + + +------+ + Left Lower Extremities DVT Study Measurements Left 2D Measurements + + + + + !Location !Visualized!Compressibility!Thrombosis! + + + + + !Common Femoral !Yes !No !AI ! + + + + + !Prox Femoral !Yes !Partial !AI ! + + + + + !Mid Femoral !Yes !Yes !None ! + + + + + !Dist Femoral !Yes !Yes !None ! + + + + + !Deep Femoral !No ! ! ! + + + + + !Popliteal !Yes !Yes !None ! + + + + + !Sapheno Femoral Junction !Yes !Partial !AI ! + + + + + !PTV !Yes !Yes !None ! + + + + + !Peroneal !Partial !Yes !None ! + + + + + !Gastroc !Yes !Yes !None ! + + + + + !GSV Thigh !Yes !Yes !None ! + + + + + !GSV Knee !Yes !Yes !None ! + + + + + !GSV Ankle !Yes !Yes !None ! + + + + + !SSV !Yes !Yes !None ! + + + + + Left Doppler Measurements + + +------+ + !Location !Signal !Reflux!Reflux (msec) ! + + +------+ + !Common Femoral !Absent ! ! ! + + +------+ + !Prox Femoral !Diminished! ! ! + + +------+ + !Popliteal !Phasic ! ! ! + + +------+ + [employer]- [place], GlassesGroupGlobalVL VEIN MAPPING LOWER BILATERALon 01-06-0478GbrltNorthwest Medical Center [facility] Lower Extremity Vein Mapping Procedure Patient Name LM Date of Study 10/03/2019 LORENZO Nash Date of 1970 Gender Male Age 49 year(s) Race Room Number 2007 Height: 69 inch, 175.26 cm Corporate ID [id number] Weight: 288 pounds, 130.6 kg # Patient Acct [id number] BSA: 2.41 m^2 BMI: 42.53 kg/m^2 # MR # [id number] Inspector [employer]ision Tamra Mcbride RVT Interpreting Physician Nalini Stone Referring Referring Physician VINNIE Eason Nurse Practitioner Procedure Type of Study: Veins: Lower Extremity Vein Mapping. Indications forStudy:Pre-op [facility]. Patient Status:In Patient. Conclusions Summary Simultaneous real time imaging utilizing B-Mode, color doppler and spectral waveform analysis was performed on the bilateral lower extremities for venous examination of the deep and superficial systems. Findings are: Right: Acute deepvenous thrombosis extending from the femoral vein into the external iliac vein. Vein sizes are listed in the table below. Left: Acute deep venous thrombosis extending from the femoral vein into the external iliac vein. Vein sizes are listed in the table below. Signature Findings: Right Impression: Left Impression: The femoral vein to the external The femoral vein to the external iliac veins are non-compressible. iliac veins are non- compressible. Thrombus appears acute based on Thrombus appears acute based on B- Mode image evaluation. B-Mode image evaluation. The saphenofemoral junction is The saphenofemoral junction is partially compressible. partially compressible. Normal compressibility of the great Normal compressibility of the great saphenous vein. saphenousvein. Risk Factors History + + + + !Diagnosis !Date !Comments ! + + + + !Previous Scan !12/08/2010!wnl ! + + + + !DVT ! !Bilateral legs ! + + +---- + !Pulmonary Embolism ! ! ! + + + + !Green Field Filter ! ! ! + +--------- -+ + - The patient's risk factor(s) include: insulin- treated diabetes mellitus, obesity and arterial hypertension. - The patient has liver cancer. - The patient's last creatinine was 1.7 mg/dl. Allergies - Allergy:*No Known Allergies(Miscellaneous). Velocities are measured in cm/s ; Diameters are measured in cm + ++--------+-----+----+--------+-----+ !Superficial - Great Saphenous Vein !!Right ! !Left! ! ! + ++--------+-----+----+--------+-----+ !Location !!Diameter!Depth! !Diameter!Depth! +------ ++--------+-----+----+--------+-----+ !Sapheno Femoral Junction !!0! ! !0 ! ! + ++--------+-----+----+--------+-----+ !GSV Mid Thigh !!0.43 ! ! !0.47 ! ! + ++--------+-----+----+--------+-----+ !GSV Knee !!0.53 ! ! !0.49 ! ! + ++--------+-----+----+--------+-----+ !GSV High Calf !!0.34 ! ! !0.36 ! ! + ++--------+-----+----+--------+-----+ !GSV Low Calf !!0.26 ! ! !0.27 ! ! + ++- -------+-----+----+--------+-----+ !GSV Ankle !!0.3 ! ! !0.26 ! ! + ++--------+-----+----+--------+-----+ [facility] [place]- Jeff KAMINSKI Mhpn Incoming Cardio Results From Cpa/Ge - 10/03/2019 10:09 PM [facility] Vascular Lower Extremity Vein Mapping Procedure Patient Name LM Date of Study 10/03/2019 LORENZO Nash Date of 1970 Gender Male Age 49 year(s) Race Room Number 2006 Height: 69 inch, 175.26 cm Corporate ID [id number] Weight: 288 pounds, 130.6 kg # Patient Acct [id number] BSA: 2.41 m^2 BMI: 42.53 kg/m^2 # MR # [id number] Inspector [employer] Tamra Mcbride RVT Interpreting Physician Nalini Stone Referring Referring Physician VINNIE Eason Nurse Practitioner Procedure Type of Study: Veins: Lower Extremity Vein Mapping. Indications for Study:Pre-op [facility]. Patient Status:In Patient. Conclusions Summary Simultaneous real time imaging utilizing B-Mode, color doppler and spectral waveform analysis was performed on the bilateral lower extremities for venous examination of the deep and superficial systems. Findings are: Right: Acute deep venous thrombosis extending from the femoral vein into the external iliac vein. Vein sizes are listed in the table below. Left: Acute deep venous thrombosis extending from the femoral vein into the external iliac vein. Vein sizes are listed in the table below. Signature Findings: Right Impression: Left Impression: The femoral vein to the external The femoral vein to the external iliac veins are non-compressible. iliac veins are non-compressible. Thrombus appears acute based on Thrombus appears acute based on B-Mode image evaluation. B-Mode image evaluation. The saphenofemoral junction is The saphenofemoral junction is partially compressible. partially compressible. Normal compressibility of the great Normal compressibility of the great saphenous vein. saphenous vein. Risk Factors History + + + + !Diagnosis !Date !Comments ! + + + + !Previous Scan !12/08/2010!wnl ! + + + + !DVT ! !Bilateral legs ! + + + + !Pulmonary Embolism ! ! ! + + + + !Green Field Filter ! ! ! + + + + - The patient's risk factor(s) include: insulin-treated diabetes mellitus, obesity and arterial hypertension. - The patient has liver cancer. - The patient's last creatinine was 1.7 mg/dl. Allergies - Allergy:*No Known Allergies(Miscellaneous). Velocities are measured in cm/s ; Diameters are measured in cm + ++--------+-----+----+--------+----- + !Superficial - Great Saphenous Vein !!Right ! !Left! ! ! + ++--------+-----+----+--------+----- + !Location !!Diameter!Depth! !Diameter!Depth! + ++--------+-----+----+--------+----- + !Sapheno Femoral Junction !!0 ! ! !0 ! ! + ++--------+-----+----+--------+----- + !GSV Mid Thigh !!0.43 ! ! !0.47 ! ! + ++--------+-----+----+--------+----- + !GSV Knee !!0.53 ! ! !0.49 ! ! + ++--------+-----+----+--------+----- + !GSV High Calf !!0.34 ! ! !0.36 ! ! + ++--------+-----+----+--------+----- + !GSV Low Calf !!0.26 ! ! !0.27 ! ! + ++--------+-----+----+--------+----- + !GSV Ankle !!0.3 ! ! !0.26 ! ! + ++--------+-----+----+--------+----- + [facility] TripleLiftUNIVERSITY OF [facility], [facility] [id number] Coag (Bld) [Time]29.2 [facility] HospitalAurora Brands [place], MTaPTT Coag (Bld) [Time]72.3 [facility], MTInterpretation and review of laboratory resultsAbnormalAC[facility], MTBasic Metabolic Panelon [id number] gap [Moles/Vol]11 mmol/L9 - 17 mmol/LMohio valley surgical hospitaly Health- [place], KYBun/Cre RatioNOT REPORTEDMerPeaceHealth Southwest Medical Center- [place], KYCalcium [Mass/Vol]8.9 mg/dL8.6 - 10.4 mg/dLKing'S Daughters [facility] [place]- [place], KYChloride [Moles/Vol]103 mmol/L98 - 107 mmol/LMohio valley surgical hospitaly Health- [place], KYCO2 [Moles/Vol]26 mmol/L20 - 31 mmol/LMercy Health- [place], [place] Creatinine [Mass/Vol]1.71 mg/dLHigh0.7 - 1.2 mg/dLHolzer Medical Center [facility]- [place], KYGFR Mhlfyzze63 mL/minLow>60[facility]- [place], KYGFR Non- Uzeughmy92 mL/minLow>60[facility]- [place], KYGFR/1.73 sq M predicted among non-blacks MDRD (S/P/Bld) [Vol rate/Area][facility] [employer] [place], MTComment on above:Average GFR for 50-59 years old: 93 mL/min/1.73sq m Chronic Kidney Disease: <60 mL/min/1.73sq m Kidney failure: <15 mL/min/1.73sq m eGFR calculated using average adult body mass. Additional eGFR calculator available at: http://www.Last Guide/multiple_crcl_2012.htm GFR/1.73 sq M predicted among non-blacks MDRD (S/P/Bld) [Vol rate/Area]NOT REPORTEDACMC Healthcare System [facility], KYGlucose [Mass/Vol]71 mg/dL70 - 99 mg/dLACMC [facility], KYInterpretation and review of laboratory resultsAbnormalAC[facility], KYPotassium [Moles/Vol]4.5 mmol/L3.7 - 5.3 mmol/LMCleveland Clinic [facility]- [place], KYSodium [Moles/Vol]140 mmol/L135 - 144 mmol/LMMetroHealth Parma Medical [facility] [place], KYUrea nitrogen [Mass/Vol]21 mg/dLHigh6 - 20 mg/dLACMC [facility], KYCBC Auto Differentialon 14-28-1329Ialaajunc (Bld) [#/Vol]0.03 10*3/uLKettering Health Preble [place], KYBasophils/100 WBC (Bld)0 %0 - 2 %[facility], KYDifferential TypeNOT REPORTEDACMC [facility], KYEosinophils (Bld) [#/Vol]0.17 10*3/uLKing'S Daughters Medical [facility] [place]- [place], [place] Eosinophils/100 WBC (Bld)2 %1 - 4 %[facility], KYErythrocyte distribution width (RBC) [Ratio]16.5 %High11.8 - 14.4 %[facility], KYHematocrit (Bld) [Volume fraction]38.5 %Low40.7 - 50.3 %[facility], KYHemoglobin (Bld) [Mass/Vol]11.6 g/dLLow13 - 17 g/dLACMC Healthcare System [facility], KYImmature granulocytes (Bld) [#/Vol]10*3/uLKing'S Daughters [facility] [place]- [place], KYImmature granulocytes (Bld) [#/Vol]0 %0 [facility], KYInterpretation and review of laboratory resultsAbnormWadsworth-Rittman Hospital, KYLymphocytes (Bld) [#/Vol]1.78 10*3/[facility], [place] Lymphocytes/100 WBC (Bld)22 %Low24 - 43 %[facility], MTMCH (RBC) [Entitic mass]28.0 pg25.2 - 33.5 pgACMC Healthcare System Glen[facility]igh, MTMCHC (RBC) [Mass/Vol]30.1 g/dL28.4 - 34.8 g/dLACMC Healthcare System [facility], MTMCV (RBC) [Entitic vol]93.0 fL82.6 - 102.9 fL [facility], KYMonocytes (Bld) [#/Vol]0.55 10*3/[facility], [place] Monocytes/100 WBC (Bld)7 %3 - 12 %[facility], MTPlatelet mean volume (Bld) [Entitic vol]9.7 fL8.1 - 13.5 fLACMC Healthcare System Glen[facility], KYPlatelets (Bld) [#/Vol]246 10*3/[facility], KYPlatelets (Bld) [#/Vol]NOT REPORTEDK[place], KYRBC (Bld) [#/Vol]4.14 10*6/uLLow4.21 - 5.77 m/[facility], MTRBC morphology finding Nom (Bld)ANISOCYTOSIS PRESENTACMC Healthcare System [facility], MTSegmented neutrophils/100 WBC (Bld)69 %High36 - 65 %[facility], MTSegs Absolute5.67 [facility], KYWBC (Bld) [#/Vol]8.2 10*3/[facility], KYWBC (Bld) [#/Vol]0.0 10*3/uL0.0 per 100 WBCACMC Healthcare System Glen[facility]igh, MTWBC MorphologyNOT REPORTED [facility], MTCardiac Catheterizationon [id number], Mhpn Incoming Cardio Results From Cpacs/Ge - 10/02/2019 1:17 PM EST Cardiac Diagnostic Report Demographics Patient LM Nash Date of Study 10/02/2019 Name Date of 1970 Gender Male Age 49 year(s) Race Room [id number]^CHINEDU^JESSIE Height: 69 inch, 175.26 cm Number Corporate [id number] Weight: 288 pounds, 130.6 kg ID # Patient [id number] BSA: 2.41 m^2 BMI: 42.53 kg/m^2 Acct # MR # [id number] Performing Jessie Che Physician Referring # Physician Assisting Physician Additional Comments H&P reviewed and patient examined by performing physician prior to the procedure on 10/02/2019 at 1240 No changes noted. If changes, see note below. Mallampati Classification 2 / ASA Classification II : per Physician . Patient medications reviewed by Physician prior to procedure. Procedure Procedure Type: Diagnostic procedure: Lt Heart, Coronary Angio, LV pressure Complications: - No complication Conclusions Procedure Summary Multi vessel significant CAD Recommendations Urgent CABG Signature Angiographic Findings Cardiac Arteries and Lesion Findings LMCA: No significant disease and mild irregularities. LAD: Mid 90% stenosis LCx: Patent proximal stent Distal 80% stenosis RCA: 100% proximal stenosis with collateral from the left system Coronary Tree Dominance: Right Procedure Data Procedure Start Time: 10/02/2019 12:54. Procedure End Time: 10/02/2019 13:01. The procedure was explained in detail to the patient. Risks, complications and alternative treatments were reviewed. Written consent was obtained. Entry Locations - Retrograde Percutaneous access was performed through the Right Radial artery. A 6 Fr sheath was inserted. Hemostasis was successfully obtained using TR Band. Procedure Medications: - Oxygen NC 2 l/min. - Versed I.V. 2 mg. - Fentanyl I.V. 50 mcg. - Heparin I.A. 2000 units. - Verapamil I.A. 2.5 mg. - Nitroglycerin I.A. 400 mcg. Catheters and Wires: - 6 Fr. Radial TIG 4.0 was used for Right coronary angiography. - 6 Fr. Radial TIG 4.0 was used for Left coronary angiography. Contrast Material: - Optiray 00661 ml Fluoroscopy Time: Diagnostic: 2:15 minutes. Total: 2:15 minutes. Estimated Blood Loss: 5 ml. Medical History History of Disease + + +-------- + !Diagnosis !Date !Comments! + + +-------- + !Previous Scan !12/08/2010!wnl ! + + +-------- + Allergies - *No Known Allergies. Risk Factors The patient risk factors include:insulin-treated diabetes mellitus, last creatinine: 1.7 mg/dl and creatinine clearance: 96.05 ml/min. Admission Data Admission Date: 09/29/2019 Admission Status: Inpatient. -The patient's anginal syndrome was assessed as CCS III according to the Mauritian clinical classification. Hemodynamics Condition: Baseline Room Air Estimated: 317.39Heart Rate: 102 bpm Pressure +-----+ + !Site !Pressure ! +-----+ + !AO !116/59 (87) ! +-----+ + !LV !122/1 ,8 ! +-----+ + Shunts Oxygen Values O2 Fldrkbqfugb430.39 [employer], H?REL Diagnostic Report Demographics Patient LM Nash Date of Study 10/02/2019 Name Date of1970 Gender Male Age 49 year(s) Race Room [id number]^ZURDO Height: 69 inch, 175.26 cm Number Corporate [id number] Weight: 288 pounds, 130.6 kg ID # Patient [id number] BSA: 2.41m^2 BMI: 42.53 kg/m^2 Acct # MR # [id number] Performing Jessie Che Physician Referring # Physician Assisting Physician Additional Comments H&P reviewed and patient examined by performing physician prior to the procedure on 10/02/2019 at 1240 No changes noted.If changes, see note below. Mallampati Classification 2 / ASA Classification II : per Physician . Patient medications reviewed by Physician prior to procedure. Procedure Procedure Type: Diagnostic procedure: Lt Heart, Coronary Angio, LV pressure Complications: - No complication Conclusions Procedure Summary Multi vessel significant CAD Recommendations Urgent CABG Signature Angiographic F indings Cardiac Arteries and Lesion Findings LMCA: No significant disease and mild irregularities. LAD: Mid 90% stenosis LCx: Patent proximal stent Distal 80% stenosis RCA: 100% proximal stenosis with collateral from the left system Coronary Tree Dominance: Right Procedure Data Procedure Start Time: 10/02/2019 12:54. Procedure End Time: 10/02/2019 13:01. The procedure was explained in detail to the patient. Risks, complications and alternative treatments were reviewed. Written consent was obtained. Entry Locations - Retrograde Percutaneous access was performed through the Right Radial artery.A 6 Fr sheath was inserted. Hemostasis was successfully obtained using TR Band. Procedure Medications: - Oxygen NC 2 l/min. - Versed I.V. 2 mg. - Fentanyl I.V. 50 mcg. - Heparin I.A. 2000 units. - Verapamil I.A. 2.5 mg. - Nitroglycerin I.A. 400 mcg. Catheters and Wires: - 6 Fr. Radial TIG 4.0 was used for Right coronary angiography. - 6 Fr. Radial TIG 4.0 was used for Left coronary angiography. Co ntrast Material: - Optiray 24039 ml Fluoroscopy Time: Diagnostic: 2:15 minutes. Total: 2:15 minutes. Estimated Blood Loss: 5 ml. Medical History History of Disease + + +--------+ !Diagnosis !Date !Comments! + + +--------+ !Previous Scan !12/08/2010!wnl ! + + +--------+ Allergies - *No Known Allergies. Risk Factors The patient risk factors include:insulin-treated diabetes mellitus, last creatinine: 1.7 mg/dl and creatinine clearance: 96.05 ml/min. Admission Data Admission Date: 09/29/2019 Admission Status: Inpatient. - The patient's anginal syndrome was assessed as CCS III according to the Mauritian clinical classification. Hemodynamics Condition: Baseline Room Air Estimated: 317.39Heart Rate: 102 bpm Pressure +-----+ + !Site !Pressure ! + -----+ + !AO !116/59 (87) ! +---- -+ + !LV !122/1 ,8 ! +-----+----- + Shunts Oxygen Values O2 Okxcgtcidbk613.39[facility], MTPO Glucose Fingerstickon 61-62-0805Mrauagg [Mass/Vol]142 mg/gYQrvx40 - 110 mg/dLACMC Healthcare [facility], [place] Interpretation and review of laboratory resultsAbnoParkview Health, [place] Glucose [Mass/Vol]60 mg/dLLow75 - 110 mg/dLACMC [facility], KYInterpretation and review of laboratory resultsAbPaulding County Hospital, KYGlucose [Mass/Vol]91 mg/dL75 - 110 mg/dLACMC [facility], KYAPTTon 16-10-1674gDJK Coag (Bld) [Time] 51.9 [facility], KYInterpretation and review of laboratory results AbnormalACMC Healthcare System [facility], KYaPTT Coag (Bld) [Time]54.0 [facility], [place] Interpretation and review of laboratory resultsAbnoParkview Health, KYaPTT Coag (Bld) [Time]38.7 [facility], KYInterpretation and review of laboratory resultsAbPaulding County Hospital, MTBasic Metabolic Panelon 10-01-2019 Anion gap [Moles/Vol]9 mmol/L9 - 17 mmol/LMCleveland Clinic [facility]- [place], KYBun/Cre RatioNOT REPORTEDKing'S D[facility] [place]- [place], KYCalcium [Mass/Vol]8.8 mg/dL8.6 - 10.4 mg/dLAC[facility], KYChloride [Moles/Vol]100 mmol/L98 - 107 mmol/LMCleveland Clinic [facility]- [place], [place] CO2 [Moles/Vol]26 mmol/L20 - 31 mmol/LMCleveland Clinic [facility]- [place], KYCreatinine [Mass/Vol] 1.77 mg/dLHigh0.7 - 1.2 mg/dLACMC [facility], KYGFR Ykfmmwbe02 mL/min Low>60[facility], KYGFR Non- Vqlcoxrs83 mL/minLow>60[facility], KYGFR/1.73 sq M predicted among non-blacks MDRD (S/P/Bld) [Vol rate/Area]NOT REPORTEDACMC Healthcare [facility], KYGFR/1.73 sq M predicted among non-blacks MDRD (S/P/Bld) [Vol rate/Area][facility], KYComment on above:Average GFR for 50-59 years old: 93 mL/min/1.73sq m Chronic Kidney Disease: <60 mL/min/1.73sq m Kidney failure: <15 mL/min/1.73sq m eGFR calculated using average adult body mass. Additional eGFR calculator available at: http://www.Last Guide/multiple_crcl_2011.htm Glucose [Mass/Vol]167 mg/uQOnur59 - 99 mg/dLACMC Healthcare [facility], KYInterpretation and review of laboratory resultsAbnormWadsworth-Rittman Hospital, KYPotassium [Moles/Vol]5.0 mmol/L3.7 - 5.3 mmol/[facility], KYSodium [Moles/Vol]135 mmol/L135 - 144 mmol/[facility], KYUrea nitrogen [Mass/Vol]20 mg/dL6 - 20 mg/dLACMC Healthcare [facility], KYPOC Glucose Fingerstickon 89-92-6357Qlyegrr [Mass/Vol] 146 mg/sGUkbs65 - 110 mg/dLACMC [facility], KYInterpretation and review of laboratory resultsAbnormWadsworth-Rittman Hospital, KYGlucose [Mass/Vol]151 mg/zCNbzg49 - 110 mg/dLACMC [facility], KYInterpretation and review of laboratory results AbnormalACMC [facility], KYGlucose [Mass/Vol]83 mg/dL75 - 110 mg/dLACMC Healthcare System [facility], KYAPTTon 17-69-7428sOLW Coag (Bld) [Time]27.2 [place], [place] aPTT Coag (Bld) [Time]24.4 [place], KYCBCon 10-79-4000Aqlhfzuldjb distribution width (RBC) [Ratio]16.9 %High11.8 - 14.4 %[place], [place] Hematocrit (Bld) [Volume fraction]38.2 %Low40.7 - 50.3 %[place], [place] Hemoglobin (Bld) [Mass/Vol]11.6 g/dLLow13 - 17 g/dLKinsley, [place] Interpretation and review of laboratory resultsAbnoHot Springs, KYMCH (RBC) [Entitic mass]28.3 pg25.2 - 33.5 pgKinsley, KYMCHC (RBC) [Mass/Vol]30.4 g/dL28.4 - 34.8 g/dLKinsley, KYMCV (RBC) [Entitic vol] 93.2 fL82.6 - 102.9 fLK[place], KYPlatelet mean volume (Bld) [Entitic vol]9.4 fL8.1 - 13.5 fLK[place], KYPlatelets (Bld) [#/Vol]259 10*3/uL [place], KYRBC (Bld) [#/Vol]4.10 10*6/uLLow4.21 - 5.77 m/[facility], MTWBC (Bld) [#/Vol]6.2 10*3/uLACMC Healthcare System [facility], MTWBC (Bld) [#/Vol] 0.0 10*3/uL0.0 per 100 WBCKinsley, KYErythrocyte distribution width (RBC) [Ratio]17.0 %High11.8 - 14.4 %[place], KYHematocrit (Bld) [Volume fraction]35.0 %Low40.7 - 50.3 %[place], KYHemoglobin (Bld) [Mass/Vol] 10.5 g/dLLow13 - 17 g/dLKinsley, KYInterpretation and review of laboratory resultsAbnoHot Springs, KYMCH (RBC) [Entitic mass]28.1 pg 25.2 - 33.5 pgHol[facility]- [place], KYMCHC (RBC) [Mass/Vol]30.0 g/dL28.4 - 34.8 g/dL [facility]- [place], KYMCV (RBC) [Entitic vol]93.6 fL82.6 - 102.9 fLHolzer Medical Center – [facility]- [place], KYPlatelet mean volume (Bld) [Entitic vol]9.8 fL8.1 - 13.5 fLHolzer [facility]- [place], KYPlatelets (Bld) [#/Vol]259 10*3/uLHolzer [facility] Center [facility]- [place], KYRBC (Bld) [#/Vol] 3.74 10*6/uLLow4.21 - 5.77 m/uLHolzer Medical Center [facility]- [place], KYWBC (Bld) [#/Vol]0.0 10*3/uL 0.0 per 100 WBCHolzer [facility]- [place], KYWBC (Bld) [#/Vol]6.6 10*3/uLHolzer Medical Center [facility]- [place], KYComprehensive Metabolic Panel w/ Reflex to MGon [id number] [Mass/Vol] 3.1 g/dLLow3.5 - 5.2 g/dLHolzer Medical Center [facility]- [place], KYAlbumin/Globulin [Mass ratio]1.3 {ratio}[facility] [place], KYALP [Catalytic activity/Vol]70 U/L40 - 129 U/LMcle[facility]and [facility]- [place], KYALT [Catalytic activity/Vol]8 U/L5 - 41 U/LMcleveland clinic [facility]- [place], [place] Anion gap [Moles/Vol]10 mmol/L9 - 17 mmol/LMoh[facility] hospitaly [facility]- [place], KYAST [Catalytic activity/Vol]9 U/L<40[facility] [place], KYBilirubin Ql (U)0.31 mg/dL0.3 - 1.2 mg/dLHolzer Medical Center [facility]- [place], KYBun/Cre RatioNOT REPORTEDMer Health- [place], KYCalcium [Mass/Vol]8.5 mg/dLLow8.6 - 10.4 mg/dLHolzer Medical Center [facility]- [place], KYChloride [Moles/Vol] 102 mmol/L98 - 107 mmol/LMcleveland clinic foundation [facility]- [place], KYCO2 [Moles/Vol]25 mmol/L20 - 31 mmol/[facility], KYCreatinine [Mass/Vol]1.71 mg/dLHigh0.7 - 1.2 mg/dL [facility], KYGFR Eflidbxr49 mL/minLow>60[facility], KYGFR Non- Zfzghnwn87 mL/minLow>60[facility], KYGFR/1.73 sq M predicted among non-blacks MDRD (S/P/Bld) [Vol rate/Area][facility], KYComment on above:Average GFR for 50-59 years old: 93 mL/min/1.73sq m Chronic Kidney Disease: <60 mL/min/1.73sq m Kidney failure: <15 mL/min/1.73sq m eGFR calculated using average adult body mass. Additional eGFR calculator available at: http://www.Last Guide/N[employer]_crcl_2012.htm GFR/1.73 sq M predicted among non-blacks MDRD (S/P/Bld) [Vol rate/Area]NOT REPORTEDAC[facility], KYGlucose [Mass/Vol]158 mg/bKMpdg08 - 99 mg/dLACMC Healthcare System [facility], KYPotassium [Moles/Vol]4.3 mmol/L3.7 - 5.3 mmol/[facility], KYProtein [Mass/Vol]5.4 g/dLLow6.4 - 8.3 g/dLACMC [facility], KYSodium [Moles/Vol]137 mmol/L135 - 144 mmol/[facility], KYUrea nitrogen [Mass/Vol]20 mg/dL6 - 20 mg/dLACMC Healthcare System [facility], KYLipid panel - fastingon [id number] [Mass/Vol]113 mg/dL<200[facility], MTComment on above: Cholesterol Guidelines: <200 Desirable 200-240 Borderline >240 Undesirable Cholesterol in HDL [Mass/Vol]27 mg/dLLow>40[facility], MTComment on above: HDL Guidelines: <40 Undesirable 40-59 Borderline >59 Desirable Cholesterol in LDL [Mass/Vol]55 mg/dL0 - 130 mg/dLACMC Healthcare System [facility], KYComment on above: LDL Guidelines: <100 Desirable 100-129 Near to/above Desirable 130-159 Borderline >159 Undesirable Direct (measured) LDL and calculated LDL are not interchangeable tests. Cholesterol in VLDL [Mass/Vol]NOT REPORTEDHigh1 - 30 mg/dLACMC Healthcare System [facility], [place] Cholesterol.total/Cholesterol in HDL [Mass ratio]4.2 {ratio}<5[facility], MTTriglyceride [Mass/Vol]153 mg/dLHigh<150[facility], MTComment on above: Triglyceride Guidelines: <150 Desirable 150-199 Borderline 200-499 High >499 Very high Based on AHA Guidelines for fasting triglyceride, August 2012. Magnesiumon [id number] [Mass/Vol]1.9 mg/dL1.6 - 2.6 mg/dLACMC Healthcare System [facility], KYOtheron 33-80-2440Wcezvrmpyqeiax and review of laboratory resultsAbFulton County Health Center, MTPOC Glucose Fingerstickon 19-33-5186Qleural [Mass/Vol]250 mg/uRKapv95 - 110 mg/dLACMC [facility], KYInterpretation and review of laboratory resultsAbPaulding County Hospital, KYGlucose [Mass/Vol]162 mg/xFDnif68 - 110 mg/dLACMC Healthcare System [facility], KYInterpretation and review of laboratory results AbnormalAC[facility], KYGlucose [Mass/Vol]126 mg/rKGrgg88 - 110 mg/dLACMC [facility], KYInterpretation and review of laboratory resultsAbnoParkview Health, MTBasic Metabolic Panel w/ Reflex to MGon [id number] gap [Moles/Vol]11 mmol/L9 - 17 mmol/LMMarietta Osteopathic Clinic, KYBun/Cre Dlrdu79VvvdxACMC [facility], KYCalcium [Mass/Vol]9.3 mg/dL8.6 - 10.4 mg/dLACMC [facility], [place] Chloride [Moles/Vol]103 mmol/L98 - 107 mmol/LMMarietta Osteopathic Clinic, KYCO2 [Moles/Vol] 24 mmol/L20 - 31 mmol/LMMarietta Osteopathic Clinic, KYCreatinine [Mass/Vol]1.88 mg/dLHigh 0.7 - 1.2 mg/dLKing[facility] [place]- [place], KYGFR Jtxpeblp27 mL/minLow>60[facility] [place], KYGFR Non- Ourkthns90 mL/minLow>60[facility] [place], [place] GFR/1.73 sq M predicted among non-blacks MDRD (S/P/Bld) [Vol rate/Area]NOT REPORTEDAC[facility], KYGFR/1.73 sq M predicted among non-blacks MDRD (S/P/Bld) [Vol rate/Area][facility], KYComment on above:Average GFR for 50-59 years old: 93 mL/min/1.73sq m Chronic Kidney Disease: <60 mL/min/1.73sq m Kidney failure: <15 mL/min/1.73sq m eGFR calculated using average adult body mass. Additional eGFR calculator available at: http://www.Last Guide/multiple_crcl_2012.htm Glucose [Mass/Vol]151 mg/iOKekc03 - 99 mg/dLACMC Healthcare System [facility], KYInterpretation and review of laboratory resultsAbnormalKing'S [facility] [place]- [place], KYPotassium [Moles/Vol]4.3 mmol/L3.7 - 5.3 mmol/LMCleveland Clinic [facility]- [place], KYSodium [Moles/Vol]138 mmol/L135 - 144 mmol/LMCleveland Clinic [facility]- [place], KYUrea nitrogen [Mass/Vol]23 mg/dLHigh6 - 20 mg/dLACMC [facility], KYEKG 12 Leadon 24-66-5828Dsdnev Jcfc24ERQTdizn Health- [place], KYP Jqme23kxhavdvNnerm Health- [place], KYP-R Ijeamwfn151 [facility]- [place], KYQ-T Mzcmhats375 [facility]- [place], KYQRS Djttqfez102 [facility]- [place], KYQTc Calculation (Elizabeth)457 [facility]- [place], KYR Nxub96oruyukyAwozq Health- [place], KYT Bhkv23nmovcliKlhts Health- [place], KYVentricular Sqsd52PDJHhjpi Health- [place], KYEdi, Mhpn Incoming Ekg Results From [facility] - 09/29/2019 6:57 AM EST Normal sinus rhythm Possible Inferior infarct , age undetermined Abnormal ECG When compared with ECG of 27-OCT-2018 12:03, No significant change was foundACMC Healthcare System [facility], KYNormal sinus rhythm Possible Inferior infarct , age undetermined Abnormal ECG When compared with ECG of 27-OCT-2018 12:03, No significant change was foundACMC Healthcare System [facility], KYGlucose, Whole Bloodon [id number] [Mass/Vol]185 mg/bIArld00 - 99 mg/dLACMC Healthcare System [facility], KYInterpretation and review of laboratory resultsAbnoHot Springs, KYGlucose [Mass/Vol]124 mg/jNSwnl13 - 99 mg/dLACMC Healthcare System [facility], [place] Interpretation and review of laboratory resultsAbnoParkview Health, KYNM Cardiac Stress Test Nuclear Imagingon 73-28-2756Sccpdwzkp exam is complete. No Radiologist dictation. Please follow up with ordering provider.[facility], MALINIPOC Glucose Fingerstickon 94-13-9840Sylhhwk [Mass/Vol]290 mg/oJWndq57 - 110 mg/dLACMC Healthcare [facility], MALINIInterpretation and review of laboratory resultsAbnoal [facility], KYTroponinon [id number] I.cardiac [Mass/Vol]NOT REPORTEDAC[facility], MALINICatenin T.cardiac [Mass/Vol]NOT REPORTED<0.03 ng/mL [facility], MALINICatenin, High Maryaeamthj31 ng/L0 - 22 ng/LMMarietta Osteopathic Clinic, KYComment on above: High Sensitivity Troponin values cannot be compared with other Troponin methodologies. Patients with high levels of Biotin oral intake (i.e >5mg/day) may have falsely decreased Troponin levels. Samples collected within 8 hours of biotin intake may require additional information for diagnosis. Troponin I.cardiac [Mass/Vol]NOT REPORTEDAC[facility], MTCatenin T.cardiac [Mass/Vol]NOT REPORTED<0.03 ng/mLACMC [facility], MTTroponin, High Sensitivity 21 ng/L0 - 22 ng/LMMarietta Osteopathic Clinic, KYComment on above: High Sensitivity Troponin values cannot be compared with other Troponin methodologies. Patients with high levels of Biotin oral intake (i.e >5mg/day) may have falsely decreased Troponin levels. Samples collected within 8 hours of biotin intake may require additional information for diagnosis. Troponin I.cardiac [Mass/Vol][facility] Hospitalment on above:Reference Range: <0.03 Within reference range. 0.03-0.09 Possible myocardial damage. Repeat at appropriate intervals to rule out chronic elevation. >= 0.10 Indicative of myocardial damage. Patients with high levels of Biotin oral intake (i.e >5mg/day) may have falsely decreased Troponin T levels. Samples collected within 8 hours of biotin intake may require additional information for diagnosis. Troponin T.cardiac [Mass/Vol]ug/L<0.03 ng/mLKins[place], KYComment on above:Troponin T results cannot be compared to Troponin-I results.Troponin, High SensitivityNOT REPORTED0 - 22 ng/LMMillen, KYAPTDignity Health [facility] General Hospital [id number] Coag (Bld) [Time]25.3 sMMillen, KYComment on above: PTT Therapeutic Range: 61.7-88.4 Therapeutic range corresponds to plasma heparin levels of 0.3-0.7 U/mL. Brain Natriuretic Peptideon [id number] peptide B (Bld) [Mass/Vol]Pro- BNP Reference Range:[facility] on above: Rule Out: <300 Fuller Zone: Age <50 300-450 Age 50-75 300-900 Age >75 300-1800 Usually represents mild to moderate HF but other cardiopulmonary causes cannot be ruled out. Rule In: Age <50 >450 Age 50-75 >900 Age >75 >1800 Natriuretic peptide B (Bld) [Mass/Vol]1160 pg/mLHigh<300[place], [place] Comment on above:Pro-BNP results cannot be compared to BNP results.CBCon 40-03-3801Artnccmuufj distribution width (RBC) [Ratio]18.6 %High12.1 - 15.2 % [place], KYHematocrit (Bld) [Volume fraction]38.9 %Low41 - 53 %[place], KYHemoglobin (Bld) [Mass/Vol]12.7 g/dLLow13.5 - 17.5 g/dLKinsley, KYInterpretation and review of laboratory resultsAbnormKettering Health [facility]- [place], KYMCH (RBC) [Entitic mass]28.4 pg26 - 34 pgACMC Healthcare System Glen[facility]igh, KYMCHC (RBC) [Mass/Vol]32.6 g/dL31 - 37 g/dLACMC Healthcare System [facility], KYMCV (RBC) [Entitic vol] 87.2 fL80 - 100 [facility], KYPlatelet mean volume (Bld) [Entitic vol] NOT REPORTED6 - 12 fLACMC Healthcare System [facility], KYPlatelets (Bld) [#/Vol]326 10*3/[facility], KYRBC (Bld) [#/Vol]4.46 10*6/uLLow4.5 - 5.9 m/[facility], KYWBC (Bld) [#/Vol]6.4 10*3/[facility], KYWBC (Bld) [#/Vol]NOT REPORTED per 100 WBCACMC Healthcare System Glen[facility], MTCBC Auto Differentialon [id number] (Bld) [#/Vol]0.00 10*3/[facility], KYBasophils/100 WBC (Bld)0 %0 - 2 %[facility], KYDifferential TypeYESMMarietta Osteopathic Clinic, KYEosinophils (Bld) [#/Vol] 0.10 10*3/[facility], KYEosinophils/100 WBC (Bld)1 %0 - 5 %[facility], KYErythrocyte distribution width (RBC) [Ratio]18.2 %High12.1 - 15.2 %[facility], KYHematocrit (Bld) [Volume fraction]38.6 %Low41 - 53 %[facility], KYHemoglobin (Bld) [Mass/Vol]12.7 g/dLLow13.5 - 17.5 g/dLACMC [facility] System [facility], MTInterpretation and review of laboratory resultsAbnoParkview Health, [place] Lymphocytes (Bld) [#/Vol]0.80 10*3/[facility], KYLymphocytes/100 WBC (Bld)11 %Low13 - 44 %[facility] [place]- [place], MALINIMCH (RBC) [Entitic mass]28.7 pg26 - 34 pgKing'S Daughters [facility] [place]- [place], MALINIMCHC (RBC) [Mass/Vol]32.8 g/dL31 - 37 g/dLKing'S Daughters [facility] [place]- [place], MALINIMCV (RBC) [Entitic vol]87.5 fL80 - 100 fLKing'S Daughters Medical [facility] [place]- [place], MALINIMonocytes (Bld) [#/Vol]0.40 10*3/uLKing'S Daughters [facility] [place]- [place], KYMonocytes/100 WBC (Bld)5 %5 - 9 % [facility] [place]- [place], MALINIPlatelet mean volume (Bld) [Entitic vol]NOT REPORTED6 - 12 fLKing'S Daughters [facility] [place]- [place], MALINIPlatelets (Bld) [#/Vol]NOT REPORTEDKing'S [facility] [place]- [place], MALINI Platelets (Bld) [#/Vol]318 10*3/uLKing'S Daughters [facility] [place]- [place], KYRBC (Bld) [#/Vol]4.41 10*6/uLLow4.5 - 5.9 m/uLKing'S Daughters [facility] [place]- [place], MALINIRBC morphology finding Nom (Bld)NOT REPORTEDKing'S Daughters [facility] [place]- [place], MALINISegmented neutrophils/100 WBC (Bld)83 %High39 - 75 % [facility] [place]- [place], MALINISegs Absolute5.80[facility] [place]- [place], MALINIWBC (Bld) [#/Vol]7.0 10*3/uLKing'S Daughters [facility] [place]- [place], KYWBC (Bld) [#/Vol]NOT REPORTEDper 100 WBCKing'S Daughters [facility] [place]- [place], MALINIWBC MorphologyNOT REPORTEDKing'S [facility]aughters [facility] [place]- [place], MALINIComprehensive Metabolic Panelon [id number] [Mass/Vol]4.1 g/dL3.5 - 5.2 g/dLKing'S Daughters [facility] [place]- [place], [place] Albumin/Globulin [Mass ratio]NOT REPORTEDKing'S Daughters [facility] [place]- [place], KYALP [Catalytic activity/Vol]99 U/L40 - 129 U/LMCleveland Clinic [facility]- [place], KYALT [Catalytic activity/Vol] 12 U/L5 - 41 U/LMCleveland Clinic [facility]- [place], MALINIAnion gap [Moles/Vol]12 mmol/L9 - 17 mmol/L [facility] [place]- [place], KYAST [Catalytic activity/Vol]12 U/L<40[facility] [place], [place] Bilirubin Ql (U)0.60 mg/dL0.3 - 1.2 mg/dLKing'S Daughters [facility] [place]- [place], KYBun/Cre Ratio14 [facility] [place]- [place], KYCalcium [Mass/Vol]10.3 mg/dL8.6 - 10.4 mg/dLKettering Health [facility] [place], KYChloride [Moles/Vol]97 mmol/LLow98 - 107 mmol/LMCleveland Clinic [facility]- [place], KYCO2 [Moles/Vol]27 mmol/L20 - 31 mmol/LMCleveland Clinic [facility]- [place], KYCreatinine [Mass/Vol]1.74 mg/dLHigh0.7 - 1.2 mg/dLAC[facility], KYGFR Azevdoax21 mL/minLow>60 [facility] [place], KYGFR Non- Vqbksvzv65 mL/minLow>60[facility], [place] GFR/1.73 sq M predicted among non-blacks MDRD (S/P/Bld) [Vol rate/Area]NOT REPORTEDAC[facility], KYGFR/1.73 sq M predicted among non-blacks MDRD (S/P/Bld) [Vol rate/Area][facility], KYComment on above:Average GFR for 50-59 years old: 93 mL/min/1.73sq m Chronic Kidney Disease: <60 mL/min/1.73sq m Kidney failure: <15 mL/min/1.73sq m eGFR calculated using average adult body mass. Additional eGFR calculator available at: http://www.[facility].[employer] Reality/multiple_crcl_2011.htm Glucose [Mass/Vol]210 mg/gJQmpe00 - 99 mg/dLACMC Healthcare System [facility], KYPotassium [Moles/Vol]4.9 mmol/L3.7 - 5.3 mmol/LMCleveland Clinic [facility]- [place], KYProtein [Mass/Vol]7.6 g/dL6.4 - 8.3 g/dLAC[facility], KYSodium [Moles/Vol]136 mmol/L135 - 144 mmol/LMCleveland Clinic [facility]- [place], KYUrea nitrogen [Mass/Vol]25 mg/dLHigh6 - 20 mg/dLACMC [facility] System [facility], KYComprehensive Metabolic Panel w/ Reflex to MGon [id number] [Mass/Vol]4 g/dL3.5 - 5.2 g/dLACMC [facility], KYAlbumin/Globulin [Mass ratio] NOT REPORTEDAC[facility], KYALP [Catalytic activity/Vol]106 U/L40 - 129 U/L [facility], KYALT [Catalytic activity/Vol]12 U/L5 - 41 U/LMMarietta Osteopathic Clinic, KYAnion gap [Moles/Vol]14 mmol/L9 - 17 mmol/LMMarietta Osteopathic Clinic, KYAST [Catalytic activity/Vol]13 U/L<40[facility], KYBilirubin Ql (U)0.65 mg/dL 0.3 - 1.2 mg/dLACMC [facility] System [facility], KYBun/Cre Nhlsd40IbnrwACMC Healthcare System [facility], KYCalcium [Mass/Vol]9.9 mg/dL8.6 - 10.4 mg/dLACMC [facility], KYChloride [Moles/Vol]96 mmol/LLow98 - 107 mmol/LMMarietta Osteopathic Clinic, KYCO2 [Moles/Vol]23 mmol/L20 - 31 mmol/LMMarietta Osteopathic Clinic, KYCreatinine [Mass/Vol]1.75 mg/dLHigh0.7 - 1.2 mg/dL [facility], KYGFR Umtotgqm85 mL/minLow>60[facility], KYGFR Non- Iekhiozh20 mL/minLow>60[facility], KYGFR/1.73 sq M predicted among non-blacks MDRD (S/P/Bld) [Vol rate/Area]NOT REPORTEDACMC Healthcare System [facility], [place] GFR/1.73 sq M predicted among non-blacks MDRD (S/P/Bld) [Vol rate/Area][facility], KYComment on above:Average GFR for 50-59 years old: 93 mL/min/1.73sq m Chronic Kidney Disease: <60 mL/min/1.73sq m Kidney failure: <15 mL/min/1.73sq m eGFR calculated using average adult body mass. Additional eGFR calculator available at: http://www.Last Guide/multiple_crcl_2012.htm Glucose [Mass/Vol]367 mg/dLCritically high70 - 99 mg/dLACMC Healthcare System [facility], [place] Potassium [Moles/Vol]4.4 mmol/L3.7 - 5.3 mmol/LMcleveland clinic [facility]- [place], KYProtein [Mass/Vol]7.5 g/dL6.4 - 8.3 g/dLKettering Health [facility] [place], KYSodium [Moles/Vol]133 mmol/L Rki204 - 144 mmol/LMMetroHealth Parma Medical [facility] [place], KYUrea nitrogen [Mass/Vol]25 mg/dLHigh6 - 20 mg/dLACMC Healthcare System [facility], KYD-Dimer, Quantitativeon [id number]-Dimer, Quant4.73 HighACMC Healthcare System [facility], KYComment on above: Elevated levels of D dimer can be seen in any state of coagulation activation including DVT, PE, arterial thrombosis, DIC, inflamatory disease, trauma, malignancy, sepsis, infection, hematoma, liver disease, post surgical state, , atherosclerosis, old age. When combined with a low clinical probability, a D dimer value of <0.50 mg/L is considered negative for DVT and PE (negative predictive value of 98%). Interpretation and review of laboratory resultsAbnormalACMC Healthcare System [facility], KYECHO Complete 2D W Doppler W Coloron [id number], Mhpn Incoming Cardio Results From [facility]/ - 09/28/2019 4:58 PM EST [facility] Transthoracic Echocardiography Report (TTE) Patient Name LM Date of Study 09/28/2019 LORENZO Nash Date of 1970 Gender Male Age 49 year(s) Race Room Number 0259 Height: 65 inch, 165.1 cm Corporate ID [id number] Weight: 285 pounds, 129.3 kg # Patient Acct [id number] BSA: 2.3 m^2 BMI: 47.42 # kg/m^2 MR # [id number] Inspector Precision Agnes Champion RT Interpreting Physician Clark Bojorquez Fellow Referring Nurse Practitioner Interpreting Referring Physician Lion Carlson Type of Study TTE procedure:2D Echocardiogram, Color Doppler, Doppler, M-Mode. Procedure Date Date: 09/28/2019 Start: 01:09 PM Study Location: [facility] Indications:Chest pain. Patient Status: Inpatient Height: 65 inches Weight: 284.99 pounds BSA: 2.3 m^2 BMI: 47.42 kg/m^2 Allergies - *No Known Allergies. CONCLUSIONS Summary Left ventricle is normal in size. Severe concentric left ventricular hypertrophy. Global left ventricular systolic function is normal with an estimated ejection fraction of 60 % . Evidence of diastolic dysfunction. Left atrium is at upper limits of normal. Right atrium is mildly dilated . Normal right ventricular size and function. Aortic valve leaflets are mildly thickened. No aortic stenosis. Thickened mitral valve leaflets. Mild mitral regurgitation. In summary, he has normal LV function with EF 60% Severe LVH with diastolic dysfunction Mild MR and TR Right sided chambers unremarkable No pericardial effusion Signature - - - - FINDINGS Left Atrium Left atrium is at upper limits of normal. Left Ventricle Left ventricle is normal in size. Severe concentric left ventricular hypertrophy. Global left ventricular systolic function is normal with an estimated ejection fraction of 60 % . Evidence of diastolic dysfunction. Right Atrium Right atrium is mildly dilated . Right Ventricle Normal right ventricular size and function. Mitral Valve Thickened mitral valve leaflets. Mild mitral regurgitation. Aortic Valve Aortic valve leaflets are mildly thickened. No aortic stenosis. Tricuspid Valve Normal tricuspid valve leaflets. Mild tricuspid regurgitation. Pulmonic Valve Technically difficult visualization of the pulmonic valve, no abnormality seen. Pericardial Effusion No significant pericardial effusion is seen. Pleural Effusion No pleural effusion seen. Miscellaneous Normal aortic root dimension. M-mode / 2D Measurements & Calculations: LVIDd:4.92 cm(3.7 - 5.6 cm) Diastolic Volume:138.99 ml LVIDs:3.98 cm(2.2 - 4.0 cm) Systolic Volume:53.62 ml IVSd:1.22 cm(0.6 - 1.1 cm) Aortic Root:2.9 cm(2.0 - 3.7 cm) LVPWd:1.52 cm(0.6 - 1.1 cm) LA Dimension: 4.18 cm(1.9 - 4.0 cm) Fractional Shortenin.11 % LA volume/Index: 84.47 ml /37m^2 Calculated LVEF (%): 61.42 % AV Cusp Separation: 1.99 cm LVOT:2.39 cm RVDd:3.25 cm Mitral: Aortic Valve Area (P1/2-Time): 3.15 cm^2 Peak Velocity: 1.39 m/s Peak E-Wave: 0.86 m/s Peak Gradient: 7.68 mmHg Peak A-Wave: 1.10 m/s E/A Ratio: 0.78 Peak Gradient: 2.96 mmHg Deceleration Time: 240.49 msec P1/2t: 69.74 msec Tricuspid: Pulmonic: Estimated RVSP: 10.57 mmHg Peak Velocity: 0.98 m/s Peak TR Velocity: 1.18 m/s Peak Gradient: 3.86 mmHg Peak TR Gradient: 5.174809 mmHg Estimated RA Pressure: 5 mmHg Estimated PASP: 10.57 mmHg [facility] Transthoracic Echocardiography Report (TTE) Patient Name LM Date of Study09/28/2019 LORENZO Nash Date of 1970 Gender Male Age 49 year(s) Race Room Number 0259 Height: 65 inch, 165.1 cm Corporate ID [id number] Weight: 285 pounds, 129.3 kg # Patient Acct [id number] BSA: 2.3 m^2 BMI: 47.42 # kg/m^2 MR # [id number] Inspector [employer] RT Andrea Interpreting Physician Clark Bojorquez Fellow Referring Nurse Practitioner Interpreting Referring Physician Lion Carlson Type of Study TTE procedure:2D Echocardiogram, Color Doppler, Doppler, M-Mode. Procedure Date Date: 09/28/2019 Start: 01:09 PM Study Location: [facility] Indications:Chest pain. Patient Status: Inpatient Height: 65 inches Weight: 284.99 pounds BSA: 2.3 m^2 BMI: 47.42 kg/m^2 Allergies - *No Known Allergies. CONCLUSIONS Summary Left ventricle is normal in size. Severe concentric left ventricular hypertrophy. Global left ventricular systolic function is normal with an estimated ejection fraction of 60 % . Evidence of diastolic dysfunction. Left atrium isat upper limits of normal. Right atrium is mildly dilated . Normal right ventricular size and function. Aortic valve leaflets are mildly thickened. No aortic stenosis. Thickened mitral valve leaflets. Mild mitral regurgitation. In summary, he has normal LV function with EF 60% Severe LVH with diastolic dysfunction Mild MR and TR Right sided chambers unremarkable No pericardial effusion Signature - Electronically signed by RT Andrea(Saad)(M)(CT)([facility])(Inspector [employer]ision) on 09/28/2019 02:41 PM FINDINGS Left Atrium Left atrium is at upper limits of normal. Left Ventricle Left ventricle is normal in size. Severe concentric left ventricular hypertrophy. Global left ventricular systolic function is normal with an estimated ejection fraction of 60 % . Evidence of diastolic dysfunction. Right Atrium Right atrium is mildly dilated . Right Ventricle Normal right ventricular size and function. Mitral Valve Thickened mitral valve leaflets. Mild mitral regurgitation. Aortic Valve Aortic valve leaflets aremildly thickened. No aortic stenosis. Tricuspid Valve Normal tricuspid valve leaflets. Mild tricuspid regurgitation. Pulmonic Valve Technically difficult visualization of the pulmonic valve, no abnormality seen. Pericardial Effusion No significant pericardial effusion is seen. Pleural Effusion No pleural effusion seen. Miscellaneous Normal aortic root dimension. M-mode / 2D Measurements & Calc ulations: LVIDd:4.92 cm(3.7 - 5.6 cm) Diastolic Volume:138.99 ml LVIDs:3.98 cm(2.2 - 4.0 cm) Systolic Volume:53.62 ml IVSd:1.22 cm(0.6 - 1.1 cm) Aortic Root:2.9 cm(2.0 - 3.7 cm) LVPWd:1.52 cm(0.6 - 1.1 cm) LA Dimension: 4.18 cm(1.9 - 4.0 cm) Fractional Shortenin.11 % LA volume/Index: 84.47 ml /37m^2 Calculated LVEF (%): 61.42 % AV Cusp Separation: 1.99 cm LVOT:2.39 cm RVDd:3.25 cm Mitral: Aortic Valve Area (P1/2-Time): 3.15 cm^2 Peak Velocity: 1.39 m/s Peak E-Wave: 0.86 m/s Peak Gradient: 7.68 mmHg Peak A-Wave: 1.10 m/s E/A Ratio: 0.78 Peak Gradient: 2.96 mmHg Deceleration Time: 240.49 msec P1/2t: 69.74 msec Tricuspid: Pulmonic: Estimated RVSP: 10.57 mmHg Peak Velocity: 0.98 m/s Peak TR Velocity: 1.18 m/s Peak Gradient: 3.86 mmHg Peak TR Gradient: 5.194607 mmHg Estimated RA Pressure: 5 mmHg Estimated PASP: 10.57 mmHgK[place], [place] Glucose, Whole Bloodon 03-44-2225Pyzmuqp [Mass/Vol]230 mg/kFHrnm14 - 99 mg/dL [place], KYInterpretation and review of laboratory resultsAbnoHot Springs, KYGlucose [Mass/Vol]119 mg/cIRcxb87 - 99 mg/dLK[place], [place] Interpretation and review of laboratory resultsAbLos [place], [place] Glucose [Mass/Vol]214 mg/lJZhnf70 - 99 mg/dLACMC [facility], MTInterpretation and review of laboratory resultsAbLos Angeles, KYGlucose [Mass/Vol] 272 mg/nHIeuj14 - 99 mg/dLACMC Healthcare System [facility], MTInterpretation and review of laboratory resultsAbLos Angeles, KYHemoglobin A1Con 80-85-8479Xbnxmaq [Mass/Vol]186 mg/dLK[place]ley, KYComment on above:The ADA and AACC recommend providing the estimated average glucose result to permit better patient understanding of their HBA1c result. HbA1c (Bld) [Mass fraction]8.1 %High4.8 - 5.9 %[place] Interpretation and review of laboratory resultsAbLos Angeles, KYLipid Panelon [id number] [Mass/Vol]139 mg/dL<200[place], KYComment on above: Cholesterol Guidelines: <200 Desirable 200-240 Borderline >240 Undesirable Cholesterol in HDL [Mass/Vol]36 mg/dLLow>40[facility], MTComment on above: HDL Guidelines: <40 Undesirable 40-59 Borderline >59 Desirable Cholesterol in LDL [Mass/Vol]54 mg/dL0 - 130 mg/dLACMC Healthcare System [facility], MTComment on above: LDL Guidelines: <100 Desirable 100-129 Near to/above Desirable 130-159 Borderline >159 Undesirable Direct (measured) LDL and calculated LDL are not interchangeable tests. Cholesterol in VLDL [Mass/Vol]NOT REPORTEDHigh1 - 30 mg/dLACMC Healthcare System [facility], [place] Cholesterol.total/Cholesterol in HDL [Mass ratio]3.9 {ratio}<5[facility], MTTriglyceride [Mass/Vol]245 mg/dLHigh<150[facility], MTComment on above: Triglyceride Guidelines: <150 Desirable 150-199 Borderline 200-499 High >499 Very high Based on AHA Guidelines for fasting triglyceride, August 2012. Microscopic Urinalysison 06-94-4530Kapbriuzv, UANOT REPORTEDNoneMey Health- [place], KYBacteria, UANOT REPORTEDNoneMey Health- [place], KYCasts UANOT REPORTED/LPF [facility]- [place], KYCrystals UANOT REPORTEDNone /HPFMercy Health- [place], [place] Epithelial Cells UANOT REPORTED/HPFMercy Health- [place], KYMucus, UANOT REPORTEDNone [facility]- [place], KYOther Observations UANOT REPORTEDNOT REQ.[facility]- [place], KYRBC (U) [#/Vol]0 TO 2[facility]- [place], KYRenal Epithelial, UrineNOT REPORTED0 /HPFMercy Health- [place], KYTrichomonas, UANOT REPORTEDNoneMercy Health- [place], KYWBC, UANOT REPORTED0 /HPFMercy Health- [place], KYYeast, UANOT REPORTEDNoneMercy Health- [place], [place]-[facility]- [place], KYOtheron 30-20-4040Uoyianpjbzvtvw and review of laboratory resultsAbnoYadkin Valley Community [facility] Health- [place], MTImmature granulocytes (Bld) [#/Vol]NOT REPORTEDHolzer Medical Center [facility]- [place], MTInterpretation and review of laboratory resultsAbnormalAC[facility], MALINIPatient Fasting?on 04-76-7998Nawrobv Fasting? yesACMC Healthcare System GlenbeighMALINIProtime-INRon 01-47-5215LBK Coag (PPP) [Relative time]1.0 {INR}[facility] GlenbeighMALINIUniversity Of Missouri Children'S Hospitalbryan on above: * THERAPY INDICATIONS * REFERENCE RANGES Pts not on anti-coagulants 1.0 - 1.5 INR Low risk pts on anti-coagulants 2.0 - 3.0 INR High risk pts on anti-coagulants 2.5 - 3.5 INR Prevention of atrial thrombo-embolism 3.0 - 4.5 INR PT Coag (PPP) [Time]9.7 [facility] Medical CenterDinoraninon [id number] I.cardiac [Mass/Vol][facility] on above:Reference Range: <0.03 Within reference range. 0.03-0.09 Possible myocardial damage. Repeat at appropriate intervals to rule out chronic elevation. >= 0.10 Indicative of myocardial damage. Patients with high levels of Biotin oral intake (i.e >5mg/day) may have falsely decreased Troponin T levels. Samples collected within 8 hours of biotin intake may require additional information for diagnosis. Troponin T.cardiac [Mass/Vol]ug/L<0.03 ng/mLGrover Memorial Hospital on above:Troponin T results cannot be compared to Troponin-I results.Troponin, High SensitivityNOT REPORTED0 - 22 ng/[place], KYCatenin I.cardiac [Mass/Vol][facility] on above:Reference Range: <0.03 Within reference range. 0.03-0.09 Possible myocardial damage. Repeat at appropriate intervals to rule out chronic elevation. >= 0.10 Indicative of myocardial damage. Patients with high levels of Biotin oral intake (i.e >5mg/day) may have falsely decreased Troponin T levels. Samples collected within 8 hours of biotin intake may require additional information for diagnosis. Troponin T.cardiac [Mass/Vol]ug/L<0.03 ng/mLGrover Memorial Hospital on above:Troponin T results cannot be compared to Troponin-I results.Troponin, High SensitivityNOT REPORTED0 - 22 ng/LMercy Health- [place], KYTroponin I.cardiac [Mass/Vol][facility], KYComment on above:Reference Range: <0.03 Within reference range. 0.03-0.09 Possible myocardial damage. Repeat at appropriate intervals to rule out chronic elevation. >= 0.10 Indicative of myocardial damage. Patients with high levels of Biotin oral intake (i.e >5mg/day) may have falsely decreased Troponin T levels. Samples collected within 8 hours of biotin intake may require additional information for diagnosis. Troponin T.cardiac [Mass/Vol]ug/L<0.03 ng/mLACMC Healthcare System [facility], KYComment on above:Troponin T results cannot be compared to Troponin-I results.Troponin, High SensitivityNOT REPORTED0 - 22 ng/LMMarietta Osteopathic Clinic, KYUrinalysis, reflex to microscopicon [id number] UrineNegativeNEGATIVEKing'[facility] [place]- [place], [place] Color, UAYELLOWYELLOWKing'S Daughters [facility] [place]- [place], KYGlucose, Zw6562 mg/dLAbnormalNEGATIVE [facility], KYInterpretation and review of laboratory resultsAbnormalHolzer Medical Center [facility]- [place], KYKetones Ql (U)NegativeNEGATIVEHolzer Medical Center [facility]- [place], KYLeukocyte esterase Test strip Ql (U)NegativeNEGATIVEKing'S [facility] [place]- [place], KYNitrite, Urine NegativeNEGATIVEHolzer Medical Center [facility]- [place], KYpH, UA6.0MerPeaceHealth Southwest [facility]- [place], KYProtein (U) [Mass/Vol]3+AbnormalNEGATIVEHolzer Medical Center [facility]- [place], KYSpecific [place], UA1.020MerPeaceHealth Southwest Medical Center- [place], KYTurbidity UACLEARCLEARMerPeaceHealth Southwest Medical Center- [place], KYUrinalysis CommentsMerPeaceHealth Southwest Medical Center- [place], KYUrine HgbTRACEAbnormalNEGATIVEKing'[facility] [place]- [place], KYUrobilinogen, UrineNormalNormalKing'S [facility] [place]- [place], KYXR CHEST PORTABLEon [id number]: XR CHEST PORTABLE HISTORY: Reason for exam:->cp Chest pain. COMPARISON: CT chest 09/03/2019 showed a T4 fracture and a large lateral left chest wall hematoma. Chest x-ray 10/10/2016. TECHNIQUE: AP portable chest 1038 hours. FINDINGS: Heart size upper normal unchanged. Lungs clear. Bony thorax normal.[facility], KYNegative portable chest.[facility], KYEdi, Mhpn Incoming Radiant Results From [employer]/Pacs - 09/28/2019 11:11 AM EST EXAM: XR CHEST PORTABLE HISTORY: Reason for exam:->cp Chest pain. COMPARISON: CT chest 09/03/2019 showed a T4 fracture and a large lateral left chest wall hematoma. Chest x-ray 10/10/2016. TECHNIQUE: AP portable chest 1038 hours. FINDINGS: Heart size upper normal unchanged. Lungs clear. Bony thorax normal. IMPRESSION: Negative portable chest. [facility], MTCBC Auto Differentialon [id number] (Bld) [#/Vol] 0.00 10*3/[facility], KYBasophils/100 WBC (Bld)0 %0 - 2 %[facility], MTDifferential TypeYESMMarietta Osteopathic Clinic, KYEosinophils (Bld) [#/Vol]0.20 10*3/[facility], KYEosinophils/100 WBC (Bld)3 %0 - 5 %[facility], MTErythrocyte distribution width (RBC) [Ratio]17.7 %High12.1 - 15.2 %[facility], MTHematocrit (Bld) [Volume fraction]26.7 %Low41 - 53 %[facility], MTHemoglobin (Bld) [Mass/Vol]8.8 g/dLLow13.5 - 17.5 g/dLACMC Healthcare System [facility], [place] Interpretation and review of laboratory resultsAbnormalACMC Healthcare System [facility], [place] Lymphocytes (Bld) [#/Vol]1.10 10*3/[facility], KYLymphocytes/100 WBC (Bld)13 %13 - 44 %[facility], KYMCH (RBC) [Entitic mass]28.3 pg26 - 34 pg [facility], KYMCHC (RBC) [Mass/Vol]32.8 g/dL31 - 37 g/dLACMC Healthcare System Glen[facility], KYMCV (RBC) [Entitic vol]86.2 fL80 - 100 fLACMC Healthcare System Glenbeigh, KYMonocytes (Bld) [#/Vol]0.60 10*3/uLMercy Health- [place], KYMonocytes/100 WBC (Bld)6 %5 - 9 %[facility] [place], KYPlatelet mean volume (Bld) [Entitic vol]NOT REPORTED6 - 12 fLMercy Health- [place], KYPlatelets (Bld) [#/Vol]NOT REPORTEDMercy Health- [place], KYPlatelets (Bld) [#/Vol]466 10*3/uLHighMercy Health- [place], KYRBC (Bld) [#/Vol]3.10 10*6/uLLow 4.5 - 5.9 m/uLSuburban Community Hospital & [facility]cy [facility]- [place], KYRBC morphology finding Nom (Bld)NOT REPORTED [facility]- [place], KYSegmented neutrophils/100 WBC (Bld)78 %High39 - 75 %[facility]- [place], KYSegs Absolute6.90HighSuburban Community Hospital & [facility]cy [facility]- [place], KYWBC (Bld) [#/Vol]8.9 10*3/uLSuburban Community Hospital & [facility] Hospitalcy [facility]- [place], KYWBC (Bld) [#/Vol]NOT REPORTEDper 100 WBCSuburban Community Hospital & [facility] Hospitalcy [facility]- [place], KYWBC MorphologyNOT REPORTEDSuburban Community Hospital & [facility]cy [facility]- [place], KYComprehensive Metabolic Panelon [id number] [Mass/Vol]3.2 g/dLLow3.5 - 5.2 g/dLSuburban Community Hospital & [facility]cy [facility]- [place], KYAlbumin/Globulin [Mass ratio]NOT REPORTEDHol[facility]- [place], KYALP [Catalytic activity/Vol]90 U/L40 - 129 U/LMercy Health- [place], KYALT [Catalytic activity/Vol] 21 U/L5 - 41 U/LMercy Health- [place], KYAnion gap [Moles/Vol]14 mmol/L9 - 17 mmol/L [facility]- [place], KYAST [Catalytic activity/Vol]14 U/L<40[facility]- [place], [place] Bilirubin Ql (U)0.68 mg/dL0.3 - 1.2 mg/dLMercy Health- [place], KYBun/Cre Ratio15 [facility]- [place], KYCalcium [Mass/Vol]9.6 mg/dL8.6 - 10.4 mg/dLSuburban Community Hospital & [facility]cy [facility]- [place], KYChloride [Moles/Vol]98 mmol/L98 - 107 mmol/LMercy Health- [place], MTCO2 [Moles/Vol]22 mmol/L20 - 31 mmol/[facility], MTCreatinine [Mass/Vol]1.85 mg/dLHigh0.7 - 1.2 mg/dLACMC Healthcare System [facility], KYGFR Wzjkhxbx05 mL/minLow>60 [facility], KYGFR Non- Ewrlrytt93 mL/minLow>60[facility], [place] GFR/1.73 sq M predicted among non-blacks MDRD (S/P/Bld) [Vol rate/Area]NOT REPORTEDAC[facility], MTGFR/1.73 sq M predicted among non-blacks MDRD (S/P/Bld) [Vol rate/Area][facility], MTComment on above:Average GFR for 50-59 years old: 93 mL/min/1.73sq m Chronic Kidney Disease: <60 mL/min/1.73sq m Kidney failure: <15 mL/min/1.73sq m eGFR calculated using average adult body mass. Additional eGFR calculator available at: http://www.Last Guide/multiple_crcl_2012.htm Glucose [Mass/Vol]392 mg/dLCritically high70 - 99 mg/dLK[place], [place] Interpretation and review of laboratory resultsAbnormWadsworth-Rittman Hospital, [place] Potassium [Moles/Vol]4.2 mmol/L3.7 - 5.3 mmol/[facility], MTProtein [Mass/Vol]7.1 g/dL6.4 - 8.3 g/dLACMC [facility], MTSodium [Moles/Vol]134 mmol/L Jrt387 - 144 mmol/[facility], MTUrea nitrogen [Mass/Vol]27 mg/dLHigh6 - 20 mg/dLK[place], KYHemoglobin and Hematocrit, Bloodon 09-12-2019 Hematocrit (Bld) [Volume fraction]26.7 %Low41 - 53 %[place], [place] Hemoglobin (Bld) [Mass/Vol]8.8 g/dLLow13.5 - 17.5 g/dLK[place], [place] Interpretation and review of laboratory resultsAbnoCleveland Clinic Hillcrest Hospital KYOther on 81-67-6241Jmbdcbsf granulocytes (Bld) [#/Vol]NOT REPORTED0 %[facility], MTBASI METABOLIC PANELon 24-81-4802Lntos gap [Moles/Vol]10 mmol/L9 - 17 mmol/L [facility] [place]- [place], KYBun/Cre RatioNOT REPORTEDKing'S Daughters [facility] [place]- [place], KYCalcium [Mass/Vol]8.9 mg/dL8.6 - 10.4 mg/dLACMC [facility], KYChloride [Moles/Vol]100 mmol/L98 - 107 mmol/LMCleveland Clinic [facility]- [place], KYCO2 [Moles/Vol]25 mmol/L20 - 31 mmol/L [facility], KYCreatinine [Mass/Vol]1.61 mg/dLHigh0.7 - 1.2 mg/dLACMC [facility] System [facility], KYGFR Gwtrnciy01 mL/minLow>60[facility] [place], KYGFR Non- Uwhkzmjf31 mL/minLow>60[facility], KYGFR/1.73 sq M predicted among non-blacks MDRD (S/P/Bld) [Vol rate/Area][facility], KYComment on above: Average GFR for 50-59 years old: 93 mL/min/1.73sq m Chronic Kidney Disease: <60 mL/min/1.73sq m Kidney failure: <15 mL/min/1.73sq m eGFR calculated using average adult body mass. Additional eGFR calculator available at: http://www.[facility].Social Reality/multiple_crcl_2011.htm GFR/1.73 sq M predicted among non-blacks MDRD (S/P/Bld) [Vol rate/Area]NOT REPORTEDAC[facility], KYGlucose [Mass/Vol]102 mg/mMXyvu66 - 99 mg/dLACMC Healthcare System [facility], KYInterpretation and review of laboratory resultsAbnormKettering Health [facility]- [place], KYPotassium [Moles/Vol]4.0 mmol/L3.7 - 5.3 mmol/LMCleveland Clinic [facility]- [place], KYSodium [Moles/Vol]135 mmol/L135 - 144 mmol/LMCleveland Clinic [facility]- [place], KYUrea nitrogen [Mass/Vol]22 mg/dLHigh6 - 20 mg/dLACMC Healthcare System [facility], KYCBC Auto Differentialon [id number] (Bld) [#/Vol]0.03 10*3/[facility]- [place], KYBasophils/100 WBC (Bld)0 %0 - 2 %[facility], KYDifferential TypeNOT REPORTEDKing'S D[facility] [place]- [place], KYEosinophils (Bld) [#/Vol]0.17 10*3/[facility] [place], [place] Eosinophils/100 WBC (Bld)2 %1 - 4 %[facility] [place], KYErythrocyte distribution width (RBC) [Ratio]17.1 %High11.8 - 14.4 %[facility], KYHematocrit (Bld) [Volume fraction]29.4 %Low40.7 - 50.3 %[facility], KYHemoglobin (Bld) [Mass/Vol]8.7 g/dLLow13 - 17 g/dLACMC Healthcare System [facility], KYImmature granulocytes (Bld) [#/Vol]1 %Uiwk2YfwwsKettering Health [facility]ble [place], KYImmature granulocytes (Bld) [#/Vol]0.12 10*3/[facility]- [place], KYInterpretation and review of laboratory results AbnormalACMC Healthcare System [facility], KYLymphocytes (Bld) [#/Vol]1.32 10*3/[facility]- [place], KYLymphocytes/100 WBC (Bld)13 %Low24 - 43 %[facility], KYMCH (RBC) [Entitic mass]27.9 pg25.2 - 33.5 pgACMC Healthcare System Glenbeigh, KYMCHC (RBC) [Mass/Vol]29.6 g/dL28.4 - 34.8 g/dLKettering Health Preble [place], KYMCV (RBC) [Entitic vol]94.2 fL82.6 - 102.9 fLACMC Healthcare System Glenbeigh, KYMonocytes (Bld) [#/Vol]0.69 10*3/uLKing'S Daughters Medical [facility] [place]- [place], KYMonocytes/100 WBC (Bld)7 %3 - 12 %[facility], KYPlatelet mean volume (Bld) [Entitic vol]10.0 fL8.1 - 13.5 fLACMC Healthcare System Glen[facility]igh, MTPlatelets (Bld) [#/Vol]NOT REPORTEDAC[facility], MTPlatelets (Bld) [#/Vol]397 10*3/uLACMC Healthcare System Glen[facility], MTRBC (Bld) [#/Vol]3.12 10*6/uLLow4.21 - 5.77 m/uLACMC Healthcare System [facility], MTRB morphology finding Nom (Bld)ANISOCYTOSIS PRESENTKinsley, [place] Segmented neutrophils/100 WBC (Bld)77 %High36 - 65 %[facility], MTSegs Absolute7.67[facility], MTWBC (Bld) [#/Vol]0.0 10*3/uL0.0 per 100 WBCACMC Healthcare System Glenbeigh, MTWBC (Bld) [#/Vol]10.0 10*3/uLACMC Healthcare System [facility], MTWBC Morphology NOT REPORTEDAC[facility], MTHemoglobin and Hematocrit, Bloodon 09-09-2019 Hematocrit (Bld) [Volume fraction]24.6 %Low40.7 - 50.3 %[place], [place] Hemoglobin (Bld) [Mass/Vol]7.5 g/dLLow13 - 17 g/dLK[place], [place] Interpretation and review of laboratory resultsAbnormalK[place], KYPO Glucose Fingerstickon [id number] [Mass/Vol]105 mg/dL75 - 110 mg/dLK[place], KYBasic Metabolic Panelon [id number] gap [Moles/Vol]16 mmol/L9 - 17 mmol/LMMarietta Osteopathic Clinic, MTBun/Cre RatioNOT REPORTEDAC[facility], [place] Calcium [Mass/Vol]8.7 mg/dL8.6 - 10.4 mg/dLACMC [facility], MTChloride [Moles/Vol]103 mmol/L98 - 107 mmol/LMMarietta Osteopathic Clinic, MTCO2 [Moles/Vol]20 mmol/L 20 - 31 mmol/LMMarietta Osteopathic Clinic, MTCreatinine [Mass/Vol]1.86 mg/dLHigh0.7 - 1.2 mg/dLK[place], KYGFR Evkazdfc30 mL/minLow>60[place], [place] GFR Non- Spwwtdel42 mL/minLow>60[facility], MTGFR/1.73 sq M predicted among non-blacks MDRD (S/P/Bld) [Vol rate/Area]NOT REPORTEDAC[facility], MTGFR/1.73 sq M predicted among non-blacks MDRD (S/P/Bld) [Vol rate/Area][place], KYComment on above:Average GFR for 50-59 years old: 93 mL/min/1.73sq m Chronic Kidney Disease: <60 mL/min/1.73sq m Kidney failure: <15 mL/min/1.73sq m eGFR calculated using average adult body mass. Additional eGFR calculator available at: http://www.Last Guide/multiple_crcl_2012.htm Glucose [Mass/Vol]186 mg/wSBgfy26 - 99 mg/dLK[place], KYInterpretation and review of laboratory resultsAbnoHot Springs, KYPotassium [Moles/Vol]4.8 mmol/L3.7 - 5.3 mmol/LMMillen, KYSodium [Moles/Vol]139 mmol/L135 - 144 mmol/LMMillen, KYUrea nitrogen [Mass/Vol]22 mg/dLHigh6 - 20 mg/dLK[place], KYHemoglobin and Hematocrit, Bloodon 09-08-2019 Hematocrit (Bld) [Volume fraction]24.2 %Low40.7 - 50.3 %[place], [place] Hemoglobin (Bld) [Mass/Vol]7.4 g/dLLow13 - 17 g/dLK[place], [place] Interpretation and review of laboratory resultsAbnoHot [place], [place] Hematocrit (Bld) [Volume fraction]25.4 %Low40.7 - 50.3 %[place], [place] Hemoglobin (Bld) [Mass/Vol]7.6 g/dLLow13 - 17 g/dLK[place], [place] Interpretation and review of laboratory resultsAbPaulding County Hospital, [place] Hematocrit (Bld) [Volume fraction]25.1 %Low40.7 - 50.3 %[facility], [place] Hemoglobin (Bld) [Mass/Vol]7.7 g/dLLow13 - 17 g/dLACMC Healthcare System [facility], [place] Interpretation and review of laboratory resultsAbnoParkview Health, MTPO Glucose Fingerstickon [id number] [Mass/Vol]189 mg/gSUira49 - 110 mg/dL [facility], MTInterpretation and review of laboratory resultsAbnoParkview Health, MTGlucose [Mass/Vol]228 mg/aQWenf11 - 110 mg/dLACMC [facility], [place] Interpretation and review of laboratory resultsAbnoParkview Health, [place] Glucose [Mass/Vol]184 mg/eKSmel40 - 110 mg/dLACMC [facility], MTInterpretation and review of laboratory resultsAbPaulding County Hospital, MTGlucose [Mass/Vol] 158 mg/cJRyxf17 - 110 mg/dLACMC [facility] System [facility], MTInterpretation and review of laboratory resultsAbPaulding County Hospital, MTTYPE AND SCREENon [id number]/Rh NegativeACMC Healthcare System [facility], MTArm Band NumberBE [id number], MTBlood product type Nom (BPU)Leukocyte Reduced Red CellACMC [facility], MTCrossmatch ResultCOMPATIBLEACMC [facility], MTDispense StatusTRANSFUSEDMMarietta Osteopathic Clinic, MTExpiration Date09/07/2019AC[facility], MTTransfusion StatusOK TO TRANSFUSE [facility], KYUnit Gctlwal6JvuomACMC Healthcare System [facility], MTUnit [id number] [facility], MTBasi Metabolic Panel w/ Reflex to MGon [id number] gap [Moles/Vol]11 mmol/L9 - 17 mmol/LMMarietta Osteopathic Clinic, KYBun/Cre RatioNOT REPORTED [facility], MTCalcium [Mass/Vol]8.8 mg/dL8.6 - 10.4 mg/dLACMC [facility], MTChloride [Moles/Vol]103 mmol/L98 - 107 mmol/[facility]- [place], KYCO2 [Moles/Vol]23 mmol/L20 - 31 mmol/LMcleveland clinic foundation Health- [place], KYCreatinine [Mass/Vol]1.82 mg/dLHigh0.7 - 1.2 mg/dLACMC Healthcare System [facility], KYGFR Hzqfvnqg05 mL/minLow>60 [facility] [place], KYGFR Non- Yumpijed50 mL/minLow>60[facility] [place], [place] GFR/1.73 sq M predicted among non-blacks MDRD (S/P/Bld) [Vol rate/Area]NOT REPORTEDACMC [facility] System [facility], KYGFR/1.73 sq M predicted among non-blacks MDRD (S/P/Bld) [Vol rate/Area][facility], KYComment on above:Average GFR for 50-59 years old: 93 mL/min/1.73sq m Chronic Kidney Disease: <60 mL/min/1.73sq m Kidney failure: <15 mL/min/1.73sq m eGFR calculated using average adult body mass. Additional eGFR calculator available at: http://www.Last Guide/multiple_crcl_2012.htm Glucose [Mass/Vol]163 mg/eFOtei43 - 99 mg/dLACMC Healthcare System [facility], KYInterpretation and review of laboratory resultsAbnormalAC[facility], KYPotassium [Moles/Vol]4.8 mmol/L3.7 - 5.3 mmol/[facility]- [place], KYSodium [Moles/Vol]137 mmol/L135 - 144 mmol/[facility]- [place], KYUrea nitrogen [Mass/Vol]24 mg/dLHigh6 - 20 mg/dLACMC Healthcare System [facility], KYCBC Auto Differentialon [id number] (Bld) [#/Vol]0.03 10*3/[facility] [place], KYBasophils/100 WBC (Bld)0 %0 - 2 %[facility], KYDifferential TypeNOT REPORTEDAC[facility], KYEosinophils (Bld) [#/Vol]0.16 10*3/uLKettering Health Preble [place], KYEosinophils/100 WBC (Bld)2 %1 - 4 %[facility], MTErythrocyte distribution width (RBC) [Ratio]16.4 %High11.8 - 14.4 %[facility], MALINIHematocrit (Bld) [Volume fraction]23.2 %Low40.7 - 50.3 % [facility], MTHemoglobin (Bld) [Mass/Vol]6.9 g/dLCritically low13 - 17 g/dLACMC Healthcare System [facility], MTImmature granulocytes (Bld) [#/Vol]1 %Diid5HkrifACMC Healthcare System [facility], MTImmature granulocytes (Bld) [#/Vol]0.07 10*3/[facility], [place] Interpretation and review of laboratory resultsAbnormalACMC [facility], [place] Lymphocytes (Bld) [#/Vol]1.37 10*3/[facility], MTLymphocytes/100 WBC (Bld)14 %Low24 - 43 %[facility], MTMCH (RBC) [Entitic mass]27.0 pg25.2 - 33.5 pgACMC Healthcare System Glenbeigh, MTMCHC (RBC) [Mass/Vol]29.7 g/dL28.4 - 34.8 g/dLKinsley, KYMCV (RBC) [Entitic vol]90.6 fL82.6 - 102.9 fLK[place], [place] Monocytes (Bld) [#/Vol]0.84 10*3/[facility], MALINIMonocytes/100 WBC (Bld)8 %3 - 12 %[facility], MALINIPlatelet mean volume (Bld) [Entitic vol]10.3 fL8.1 - 13.5 fLACMC Healthcare System Glen[facility]igh, KYPlatelets (Bld) [#/Vol]291 10*3/[facility], KYPlatelets (Bld) [#/Vol]NOT REPORTEDAC[facility], MTRBC (Bld) [#/Vol]2.56 10*6/uLLow4.21 - 5.77 m/[facility], MTRBC morphology finding Nom (Bld) ANISOCYTOSIS PRESENTACMC Healthcare System [facility], KYSegmented neutrophils/100 WBC (Bld)75 % High36 - 65 %[facility], KYSegs Absolute7.54[facility], KYWBC (Bld) [#/Vol]10.0 10*3/uLACMC Healthcare System [facility], KYWBC (Bld) [#/Vol]0.2 10*3/uLHigh0.0 per 100 WBCACMC Healthcare System Glenbeigh, KYWBC MorphologyNOT REPORTEDACMC Healthcare System [facility], [place] Hemoglobin and Hematocrit, Bloodon [id number] (Bld) [Volume fraction] 25.8 %Low40.7 - 50.3 %[facility], KYHemoglobin (Bld) [Mass/Vol]7.6 g/dLLow 13 - 17 g/dLACMC Healthcare System [facility], KYInterpretation and review of laboratory results AbnormalAC[facility], MTHematocrit (Bld) [Volume fraction]23.5 %Low40.7 - 50.3 %[facility], KYHemoglobin (Bld) [Mass/Vol]7.1 g/dLLow13 - 17 g/dL [facility], KYInterpretation and review of laboratory resultsAbPaulding County Hospital, MTPO Glucose Fingerstickon [id number] [Mass/Vol]248 mg/dL High75 - 110 mg/dLACMC Healthcare System [facility], KYInterpretation and review of laboratory resultsAbLos [place], KYGlucose [Mass/Vol]197 mg/tRWpjk43 - 110 mg/dL [facility], KYInterpretation and review of laboratory resultsAbPaulding County Hospital, MTGlucose [Mass/Vol]253 mg/dFTovr88 - 110 mg/dLACMC [facility], [place] Interpretation and review of laboratory resultsAbPaulding County Hospital, [place] Glucose [Mass/Vol]269 mg/gTNhtm79 - 110 mg/dLACMC [facility], MTInterpretation and review of laboratory resultsAbPaulding County Hospital, MTGlucose [Mass/Vol] 155 mg/aPQxhd08 - 110 mg/dLACMC [facility] System [facility], KYInterpretation and review of laboratory resultsAbnormalACMC [facility], KYBasi Metabolic Panel w/ Reflex to MGon [id number] gap [Moles/Vol]12 mmol/L9 - 17 mmol/LMCleveland Clinic [facility]- [place], [place] Bun/Cre RatioNOT REPORTEDACMC [facility], KYCalcium [Mass/Vol]8.8 mg/dL8.6 - 10.4 mg/dLACMC [facility], KYChloride [Moles/Vol]101 mmol/L98 - 107 mmol/LMMarietta Osteopathic Clinic, KYCO2 [Moles/Vol]22 mmol/L20 - 31 mmol/LMMarietta Osteopathic Clinic, [place] Creatinine [Mass/Vol]1.87 mg/dLHigh0.7 - 1.2 mg/dLACMC [facility], KYGFR Wwticcua23 mL/minLow>60[facility], KYGFR Non- Cdxxegle44 mL/minLow>60[facility], KYGFR/1.73 sq M predicted among non-blacks MDRD (S/P/Bld) [Vol rate/Area]NOT REPORTEDACMC [facility], KYGFR/1.73 sq M predicted among non-blacks MDRD (S/P/Bld) [Vol rate/Area][facility], KYComment on above:Average GFR for 50-59 years old: 93 mL/min/1.73sq m Chronic Kidney Disease: <60 mL/min/1.73sq m Kidney failure: <15 mL/min/1.73sq m eGFR calculated using average adult body mass. Additional eGFR calculator available at: http://www.[facility].Social Reality/multiple_crcl_2011.htm Glucose [Mass/Vol]173 mg/wQQubh99 - 99 mg/dLACMC Healthcare System [facility], KYInterpretation and review of laboratory resultsAbnormWadsworth-Rittman Hospital, KYPotassium [Moles/Vol]4.4 mmol/L3.7 - 5.3 mmol/LMMarietta Osteopathic Clinic, KYSodium [Moles/Vol]135 mmol/L135 - 144 mmol/LMMarietta Osteopathic Clinic, KYUrea nitrogen [Mass/Vol]28 mg/dLHigh6 - 20 mg/dLACMC Healthcare System [facility], KYCBC Auto Differentialon [id number] (Bld) [#/Vol]10*3/[facility]- [place], KYBasophils/100 WBC (Bld)0 %0 - 2 %[facility], KYDifferential TypeNOT REPORTEDKettering Health Preble [place], KYEosinophils (Bld) [#/Vol]0.10 10*3/[facility]- [place], KYEosinophils/100 WBC (Bld)1 %1 - 4 %[facility], KYErythrocyte distribution width (RBC) [Ratio]16.3 %High11.8 - 14.4 %[facility], KYHematocrit (Bld) [Volume fraction]24.2 %Low40.7 - 50.3 % [facility] [place], MTHemoglobin (Bld) [Mass/Vol]7.3 g/dLLow13 - 17 g/dLACMC Healthcare System [facility], MTImmature granulocytes (Bld) [#/Vol]1 %Klwv[address] [place] [address], [place] Immature granulocytes (Bld) [#/Vol]0.07 10*3/[facility]- [place], MALINI Interpretation and review of laboratory resultsAbnormWadsworth-Rittman Hospital, [place] Lymphocytes (Bld) [#/Vol]1.37 10*3/[facility]- [place], KYLymphocytes/100 WBC (Bld)11 %Low24 - 43 %[facility], MTMCH (RBC) [Entitic mass]27.2 pg25.2 - 33.5 pgACMC Healthcare System [facility], MTMCHC (RBC) [Mass/Vol]30.2 g/dL28.4 - 34.8 g/dLACMC Healthcare System [facility], KYMCV (RBC) [Entitic vol]90.3 fL82.6 - 102.9 fLACMC Healthcare System [facility], [place] Monocytes (Bld) [#/Vol]1.00 10*3/[facility]- [place], KYMonocytes/100 WBC (Bld)8 %3 - 12 %[facility], KYPlatelet mean volume (Bld) [Entitic vol]10.3 fL8.1 - 13.5 fLACMC Healthcare System [facility], KYPlatelets (Bld) [#/Vol]287 10*3/uLACMC [facility], MALINIPlatelets (Bld) [#/Vol]NOT REPORTEDAC[facility], MTRBC (Bld) [#/Vol]2.68 10*6/uLLow4.21 - 5.77 m/uLACMC [facility], MTRBC morphology finding Nom (Bld) ANISOCYTOSIS PRESENTACMC Healthcare System [facility], MTSegmented neutrophils/100 WBC (Bld)79 % High36 - 65 %[facility], MTSegs Absolute9.47HighACMC Healthcare System [facility], MTWBC (Bld) [#/Vol]0.0 10*3/uL0.0 per 100 WBCACMC Healthcare System Glen[facility], MTWBC (Bld) [#/Vol]12.0 10*3/uLHighACMC Healthcare System [facility], MTWBC MorphologyNOT REPORTEDACMC [facility], [place] Hemoglobin and Hematocrit, Bloodon [id number] (Bld) [Volume fraction] 24.5 %Low40.7 - 50.3 %[place], KYHemoglobin (Bld) [Mass/Vol]7.2 g/dLLow 13 - 17 g/dLACMC Healthcare System [facility], MTInterpretation and review of laboratory results AbnormalK[place]ley, KYPO Glucose Fingerstickon 75-81-2398Zvrpflb [Mass/Vol]222 mg/uWSkjj28 - 110 mg/dLACMC Healthcare System [facility], MTInterpretation and review of laboratory resultsAbnormSan Antonio, KYGlucose [Mass/Vol]239 mg/kYPtib50 - 110 mg/dLACMC Healthcare System [facility], MTInterpretation and review of laboratory resultsAbnormSan Antonio, KYGlucose [Mass/Vol]171 mg/eZHhbn82 - 110 mg/dLACMC Healthcare System [facility], MTInterpretation and review of laboratory results AbnormalK[place], KYBasic Metabolic Panel w/ Reflex to MGon 09-05-2019 Anion gap [Moles/Vol]11 mmol/L9 - 17 mmol/LMMarietta Osteopathic Clinic, MTBun/Cre RatioNOT REPORTEDACMC [facility], MTCalcium [Mass/Vol]8.7 mg/dL8.6 - 10.4 mg/dLMercy Health- [place], KYChloride [Moles/Vol]98 mmol/L98 - 107 mmol/LMercy Health- [place], [place] CO2 [Moles/Vol]24 mmol/L20 - 31 mmol/LMercy Health- [place], KYCreatinine [Mass/Vol] 2.29 mg/dLHigh0.7 - 1.2 mg/dLSuburban Community Hospital [facility]- [place], KYGFR Mrcnhzdx95 mL/min Low>60[facility]- [place], KYGFR Non- Bynsosrg95 mL/minLow>60[facility]- [place], KYGFR/1.73 sq M predicted among non-blacks MDRD (S/P/Bld) [Vol rate/Area] [facility] [place]- [place], KYComment on above:Average GFR for 50-59 years old: 93 mL/min/1.73sq m Chronic Kidney Disease: <60 mL/min/1.73sq m Kidney failure: <15 mL/min/1.73sq m eGFR calculated using average adult body mass. Additional eGFR calculator available at: http://www.Last Guide/multiple_crcl_2012.htm GFR/1.73 sq M predicted among non-blacks MDRD (S/P/Bld) [Vol rate/Area]NOT REPORTEDKing[facility] [place], KYGlucose [Mass/Vol]254 mg/lUBtgz97 - 99 mg/dLKing'S Daughters Medical [facility] [place]- [place], KYInterpretation and review of laboratory resultsAbnormalMerPeaceHealth [facility]- [place], KYPotassium [Moles/Vol]4.8 mmol/L3.7 - 5.3 mmol/LMohio valley surgical hospitaly Health- [place], KYSodium [Moles/Vol]133 mmol/OCsw880 - 144 mmol/LMercy Health- [place], KYUrea nitrogen [Mass/Vol]30 mg/dLHigh6 - 20 mg/dLHolzer Medical [facility]- [place], KYAnion gap [Moles/Vol]13 mmol/L9 - 17 mmol/LMercy Health- [place], KYBun/Cre RatioNOT REPORTED [facility] [place], KYCalcium [Mass/Vol]8.6 mg/dL8.6 - 10.4 mg/dLHolzer Medical Center [facility]- [place], KYChloride [Moles/Vol]98 mmol/L98 - 107 mmol/LMMarietta Osteopathic Clinic, KYCO2 [Moles/Vol]22 mmol/L20 - 31 mmol/[facility] [place], KYCreatinine [Mass/Vol]2.42 mg/dLHigh0.7 - 1.2 mg/dLACMC [facility], KYGFR Sotcnzdo03 mL/minLow>60 [facility], KYGFR Non- Mkjuizfp89 mL/minLow>60[facility], [place] GFR/1.73 sq M predicted among non-blacks MDRD (S/P/Bld) [Vol rate/Area]NOT REPORTEDAC[facility], KYGFR/1.73 sq M predicted among non-blacks MDRD (S/P/Bld) [Vol rate/Area][facility], KYComment on above:Average GFR for 50-59 years old: 93 mL/min/1.73sq m Chronic Kidney Disease: <60 mL/min/1.73sq m Kidney failure: <15 mL/min/1.73sq m eGFR calculated using average adult body mass. Additional eGFR calculator available at: http://www.Last Guide/multiple_crcl_2012.htm Glucose [Mass/Vol]242 mg/uKSwcx44 - 99 mg/dLACMC [facility], KYInterpretation and review of laboratory resultsAbnormalACMC [facility], KYPotassium [Moles/Vol]4.3 mmol/L3.7 - 5.3 mmol/[facility], KYSodium [Moles/Vol]133 mmol/VVxl680 - 144 mmol/[facility], KYUrea nitrogen [Mass/Vol]29 mg/dL High6 - 20 mg/dLACMC [facility], KYCBCon 91-98-1966Krukefsklck distribution width (RBC) [Ratio]16.1 %High11.8 - 14.4 %[facility], KYHematocrit (Bld) [Volume fraction]26.4 %Low40.7 - 50.3 %[facility], KYHemoglobin (Bld) [Mass/Vol]8.2 g/dLLow13 - 17 g/dLACMC Healthcare System [facility], KYInterpretation and review of laboratory resultsAbnormWadsworth-Rittman Hospital, MTMCH (RBC) [Entitic mass]27.1 pg 25.2 - 33.5 pgACMC [facility], MTMCHC (RBC) [Mass/Vol]31.1 g/dL28.4 - 34.8 g/dL [facility], MTMCV (RBC) [Entitic vol]87.1 fL82.6 - 102.9 fLACMC Healthcare System [facility], MTPlatelet mean volume (Bld) [Entitic vol]10.2 fL8.1 - 13.5 fLACMC Healthcare System [facility], MTPlatelets (Bld) [#/Vol]308 10*3/uLACMC [facility], MTRBC (Bld) [#/Vol] 3.03 10*6/uLLow4.21 - 5.77 m/[facility], MTWBC (Bld) [#/Vol]11.4 10*3/uL HighACMC Healthcare System [facility], MTWBC (Bld) [#/Vol]0.0 10*3/uL0.0 per 100 WBCACMC Healthcare System Glen[facility]igh, MTFerritinon 75-95-7102Fogznzxu [Mass/Vol]62 ug/L30 - 400 ug/LMMarietta Osteopathic Clinic, MTHemoglobin and Hematocrit, Bloodon 95-08-8387Zuafoqvisc (Bld) [Volume fraction]25.3 %Low40.7 - 50.3 %[place], KYHemoglobin (Bld) [Mass/Vol] 7.7 g/dLLow13 - 17 g/dLACMC Healthcare System [facility], KYInterpretation and review of laboratory resultsAbnormWadsworth-Rittman Hospital, KYHematocrit (Bld) [Volume fraction] 24.6 %Low40.7 - 50.3 %[facility], MTHemoglobin (Bld) [Mass/Vol]7.6 g/dLLow 13 - 17 g/dLACMC [facility] System [facility], KYInterpretation and review of laboratory results AbnormalACMC [facility], MALINIHematocrit (Bld) [Volume fraction]28.6 %Low40.7 - 50.3 %[facility], KYHemoglobin (Bld) [Mass/Vol]8.8 g/dLLow13 - 17 g/dL [facility], KYInterpretation and review of laboratory resultsAbnoParkview Health, KYIron and TIBCon 46-38-2739Uvisbbtrlfxcwp and review of laboratory resultsAbnoParkview Health, KYIron [Mass/Vol]36 ug/dLLow59 - 158 ug/dL [facility], KYIron Bvwnscxcoo83 %Low20 - 55 %[facility], LSPCAD475 ug/wMYyq852 - 450 ug/dLACMC [facility], PRWIUQ909 ug/dL112 - 347 ug/dLACMC [facility], KYPOC Glucose Fingerstickon 46-59-6318Hrgmasa [Mass/Vol]205 mg/dL High75 - 110 mg/dLACMC [facility], KYInterpretation and review of laboratory resultsAbPaulding County Hospital, KYGlucose [Mass/Vol]254 mg/sGChwz84 - 110 mg/dL [facility], KYInterpretation and review of laboratory resultsAbnoParkview Health, KYGlucose [Mass/Vol]242 mg/lJJhsc50 - 110 mg/dLACMC [facility], [place] Interpretation and review of laboratory resultsAbnoParkview Health, [place] Glucose [Mass/Vol]227 mg/aMCink35 - 110 mg/dLACMC [facility], KYInterpretation and review of laboratory resultsAbPaulding County Hospital, KYGlucose [Mass/Vol] 198 mg/pKXxyx10 - 110 mg/dLACMC [facility], KYInterpretation and review of laboratory resultsAbPaulding County Hospital, KYProtime-INRon 20-62-4404KKO Coag (PPP) [Relative time]0.9 {INR}[facility], KYComment on above: Therapeutic Range: Moderate Anticoagulant Intensity: INR = 2.0-3.0 High Anticoagulant Intensity: INR = 2.5-3.5 PT Coag (PPP) [Time]10.1 sMMarietta Osteopathic Clinic, KYCBCon 56-65-0666Fadqlndnaza distribution width (RBC) [Ratio]16.1 %High12.1 - 15.2 %[facility], [place] Hematocrit (Bld) [Volume fraction]35.8 %Low41 - 53 %[facility], [place] Hemoglobin (Bld) [Mass/Vol]11.7 g/dLLow13.5 - 17.5 g/dLACMC [facility], [place] Interpretation and review of laboratory resultsAbnoParkview Health, MTMCH (RBC) [Entitic mass]27.3 pg26 - 34 pgACMC [facility] System [facility], MTMCHC (RBC) [Mass/Vol] 32.7 g/dL31 - 37 g/dLACMC Healthcare System [facility], MTMCV (RBC) [Entitic vol]83.3 fL80 - 100 [facility], MTPlatelet mean volume (Bld) [Entitic vol]NOT REPORTED6 - 12 [facility], MTPlatelets (Bld) [#/Vol]326 10*3/[facility], MTRBC (Bld) [#/Vol]4.29 10*6/uLLow4.5 - 5.9 m/[facility], KYWBC (Bld) [#/Vol] 13.7 10*3/uLPremier Health [facility], KYWBC (Bld) [#/Vol]NOT REPORTEDper 100 WBC [facility], MTHemoglobin and Hematocrit, Bloodon [id number] (Bld) [Volume fraction]31.8 %Low40.7 - 50.3 %[facility], MALINIHemoglobin (Bld) [Mass/Vol]10.1 g/dLLow13 - 17 g/dLACMC [facility] System [facility], MTInterpretation and review of laboratory resultsAbnoParkview Health, KYHematocrit (Bld) [Volume fraction]30.0 %Low40.7 - 50.3 %[facility], MTHemoglobin (Bld) [Mass/Vol] 9.5 g/dLLow13 - 17 g/dLACMC [facility] System [facility], MTInterpretation and review of laboratory resultsAbPaulding County Hospital, MTMicroscopic Urinalysison 83-59-6905Aqlcwkhio, UANOT REPORTEDNoneMercy Health- [place], KYBacteria, UAFEW AbnormalNoneMey Health- [place], KYCasts UAHYALINEMer Health- [place], KYCasts UA10 TO 20[facility]- [place], KYCrystals UANOT REPORTEDNone /HPFMer Health- [place], [place] Epithelial Cells UA2 TO 5[facility]- [place], KYInterpretation and review of laboratory resultsAbnormalHolzer Medical Center [facility]- [place], KYMucus, UA2+AbnormalNoneMey Health- [place], KYOther Observations UANOT REPORTEDNOT REQ.[facility] [place], KYRBC (U) [#/Vol]2 TO 5[facility]- [place], KYRenal Epithelial, UrineNOT REPORTED0 /HPF [facility] [place], KYTrichomonas, UANOT REPORTEDNoneMefort ham[facility] Health- [place], KYWBC, UA2 TO 5[facility]- [place], KYYeast, UANOT REPORTEDNoneMey Health- [place], [place]-[facility] [place]- [place], KYOtheron . Nondisplaced fracture of the right T4 anterior inferior endplate with associated osteophyte. No further fractures of the spine. 2. Large 19+ centimeter hematoma of the posterior lateral left chest wall, deep to the musculature as above. Correlate with hemoglobin and hematocrit levels. IV contrast not utilized to assess for any active extravasation. 3. Moderate calcific coronary arterial disease.[facility], KYEdi, Mhpn Incoming Radiant Results From flikdate/Neuronex - 09/04/2019 12:05 AM EDT EXAMINATION: CT THORACIC SPINE WO CONTRAST, CT CHEST WO CONTRAST HISTORY: Pain the left side with possible hematoma. History of cancer. COMPARISON: None. TECHNIQUE: CT examination of the chest obtained without IV contrast. Coronal and sagittal reformations were performed. Additional reconstructed images of the entire spine performed. Dose reduction techniques were achieved by using automated exposure control and/or adjustment of mA and/or kV according to patient size and/or use of iterative reconstruction technique. FINDINGS: CT CHEST: Mild dependent atelectatic changes noted. Lungs are otherwise well inflated and clear. There is no pleural effusion, consolidation or acute infiltrate. There is no evidence an interstitial lung disease. The major airway is patent. No rib fractures or pneumothorax. Note is made of a large multiloculated hematoma in the left posterior lateral chest wall deep to the latissimus dorsi and oblique muscles. It measures approximately 19.5 x 6.4 x 11.5 cm. There is no axillary, hilar or mediastinal adenopathy. No visible mediastinal masses. Normal appearance of the heart without pericardial effusion. There is moderate coronary arterial calcification. Normal appearance of the aorta and great vessels for technique without evidence of aneurysm, dissection, or vasculitis. The thyroid gland is unremarkable. There is no hiatal hernia. The visualized portion of the upper abdomen demonstrates no acute or concerning abnormality. CT T Spine: There is a nondisplaced fracture of the anterior inferior endplate and associated osteophyte of the T4 level along the right aspect. This is best appreciated on axial images 37 through 41. There are no further acute fractures. Alignment is normal. The intervertebral disc spaces appear preserved throughout the thoracic spine. There are diffuse flowing osteophytes throughout. No obvious bony neural foraminal or central canal stenosis. IMPRESSION: 1. Nondisplaced fracture of the right T4 anterior inferior endplate with associated osteophyte. No further fractures of the spine. 2. Large 19+ centimeter hematoma of the posterior lateral left chest wall, deep to the musculature as above. Correlate with hemoglobin and hematocrit levels. IV contrast not utilized to assess for any active extravasation. 3. Moderate calcific coronary arterial disease. [facility], KYEXAMINATION: CT THORACIC SPINE WO CONTRAST, CT CHEST WO CONTRAST HISTORY: Pain the left side with possible hematoma. History of cancer. COMPARISON: None. TECHNIQUE: CT examination of the chest obtained without IV contrast. Coronal and sagittal reformations were performed. Additional reconstructed images of the entire spine performed. Dose reduction techniques were achieved by using automated exposure control and/or adjustment of mA and/or kV according to patient size and/or use of iterative reconstruction technique. FINDINGS: CT CHEST: Mild dependent atelectatic changes noted. Lungs are otherw ise well inflated and clear. There is no pleural effusion, consolidation or acute infiltrate. Thereis no evidence an interstitial lung disease. The major airway is patent. No rib fractures or pneumothorax. Note is made of a large multiloculated hematoma in the left posterior lateral chest wall deep to the latissimus dorsi and oblique muscles. It measures approximately 19.5 x 6.4 x 11.5 cm. Thereis no axillary, hilar or mediastinal adenopathy. No visible mediastinal masses. Normal appearance of the heart without pericardial effusion. There is moderate coronary arterial calcification. Normal appearance of the aorta and great vessels for technique without evidence of aneurysm, dissection, orvasculitis. The thyroid gland is unremarkable. There is no hiatal hernia. The visualized portion ofthe upper abdomen demonstrates no acute or concerning abnormality. CT T Spine: There is a nondisplaced fracture of the anterior inferior endplate and associated osteophyte of the T4 level along the right aspect. This is best appreciated on axial images 37 through 41. There are no further acute fractures. Alignment is normal. The intervertebral disc spaces appear preserved throughout the thoracic spine. There are diffuse flowing osteophytes throughout. No obvious bony neural foraminal or centralcanal stenosis.[facility], MTPO Glucose Fingerstickon [id number] [Mass/Vol]205 mg/pWSmgi94 - 110 mg/dLACMC Healthcare System [facility], MTInterpretation and review of laboratory resultsAbnoParkview Health, MTGlucose [Mass/Vol]192 mg/oTBhrp31 - 110 mg/dLACMC [facility] System [facility], KYInterpretation and review of laboratory resultsAbnoParkview Health, MTGlucose [Mass/Vol]255 mg/qZXftb19 - 110 mg/dLACMC [facility] System [facility], KYInterpretation and review of laboratory results Abnormal[place], KYGlucose [Mass/Vol]258 mg/eRIykb27 - 110 mg/dLACMC Healthcare System [facility], MTInterpretation and review of laboratory resultsAbnoHot Springs, KYPlatelet function teston 26-29-0124MWKY/EPI Clos Khof89VjwloACMC Healthcare System [facility], MTCollagen Adenosine-5'-Diphosphate (Adp) Tneb79Ury[address] [place] [address], [place] Platelet Function InterpNormal platelet function. If patient clinical history/Physical examination is positive for a bleeding diathesis, recommend repeat testing and/or additional primary hemostasis and/or coagulation studies. [facility], MTComment on above: PFA results on patients treated with Plavix (clopidogrel) have not been established. TROP/MYOGLOBINon 19-58-6570Vtezempsavdqvv and review of laboratory results AbnormalK[place], KYMyoglobin [Mass/Vol]89 ng/uDXxdc33 - 72 ng/mLACMC Healthcare System [facility], MTTroponin I.cardiac [Mass/Vol]NOT REPORTEDAC[facility], [place] Troponin T.cardiac [Mass/Vol]NOT REPORTED<0.03 ng/mLACMC [facility] System [facility], [place] Troponin, High Zxakmltdjqb84 ng/L0 - 22 ng/LMCleveland Clinic [facility]- [place], KYComment on above: High Sensitivity Troponin values cannot be compared with other Troponin methodologies. Patients with high levels of Biotin oral intake (i.e >5mg/day) may have falsely decreased Troponin levels. Samples collected within 8 hours of biotin intake may require additional information for diagnosis. TYPE AND SCREENon [id number]/RhNegativeACMC [facility], KYArm Band NumberNEI [facility] [place]- [place], KYExpiration Date09/07/2019[facility], KYTrauma Panelon [id number] TestNOT REPORTEDKettering Health [facility] [place], KYAnion gap [Moles/Vol]13 mmol/L9 - 17 mmol/LMohio valley surgical hospitaly [facility]- [place], KYaPTT Coag (Bld) [Time]28.5 sMMarietta Osteopathic Clinic, KYaPTT Coag (Bld) [Time]37.0 [facility], MTBlood Bank SpecimenBILL FOR SERVICES PERFORMEDACMC Healthcare [facility], MTCarboxyhemoglobin1.4 %0 - 5 %[facility], KYComment on above: Reference Range: Non-Smokers 0-2% Average Smoker 2-4% Heavy Smoker <10% Chloride [Moles/Vol]96 mmol/LLow98 - 107 mmol/LMCleveland Clinic [facility]- [place], KYCO2 [Moles/Vol]21 mmol/L20 - 31 mmol/LMCleveland Clinic [facility]- [place], KYCreatinine [Mass/Vol]1.64 mg/dLHigh0.7 - 1.2 mg/dLKettering Health Preble [place], KYErythrocyte distribution width (RBC) [Ratio]15.4 %High11.8 - 14.4 %[facility] [place], KYEthanol [Mass/Vol]mg/dL<10 mg/dLKing'S Daughters [facility] [place]- [place], KYEthanol percent<0.010<0.010 %[facility] [place], KYFIO2 TRAUMAKing'S Daughters [facility] [place]- [place], KYGFR Dmykfals86 mL/minLow>60[facility] [place], KYGFR Non- Dmejglbx17 mL/minLow>60[facility], MALINIGFR/1.73 sq M predicted among non-blacks MDRD (S/P/Bld) [Vol rate/Area][facility] [place] Comment on above:Average GFR for 50-59 years old: 93 mL/min/1.73sq m Chronic Kidney Disease: <60 mL/min/1.73sq m Kidney failure: <15 mL/min/1.73sq m eGFR calculated using average adult body mass. Additional eGFR calculator available at: http://www.Last Guide/multiple_crcl_2012.htm GFR/1.73 sq M predicted among non-blacks MDRD (S/P/Bld) [Vol rate/Area]NOT REPORTEDAC[facility] MTGlucose [Mass/Vol]224 mg/lXUjvp89 - 99 mg/dLACMC Healthcare System [facility], MThCG QualPT IS MALENEGATIVEACMC Healthcare System [facility], MALINIHCO3, Crwvyi21.5 mmol/LLow24 - 30 mmol/LMMarietta Osteopathic Clinic, MALINIHematocrit (Bld) [Volume fraction] 35.9 %Low40.7 - 50.3 %[facility]ighMALINIHemoglobin (Bld) [Mass/Vol]11.4 g/dL Low13 - 17 g/dLACMC Healthcare System [facility], MALINIINR Coag (PPP) [Relative time]1.0 {INR}[facility], MALINIComment on above: Therapeutic Range: Moderate Anticoagulant Intensity: INR = 2.0-3.0 High Anticoagulant Intensity: INR = 2.5-3.5 Interpretation and review of laboratory resultsAbnormalAC[facility], [facility] ([facility]BC) [Entitic mass]27.3 pg25.2 - 33.5 pgACMC Healthcare System Glen[facility]igh, [facility] (RBC) [Mass/Vol]31.8 g/dL28.4 - 34.8 g/dLACMC Healthcare System [facility], [facility] (RBC) [Entitic vol] 85.9 fL82.6 - 102.9 fLACMC Healthcare System Glen[facility]igh, MALINIMethemoglobinNOT REPORTED0 - 1.5 % [facility], MALINIModeNOT REPORTEDMercy Health- [place], [place]Negative Base Excess, Ven1.4 mmol/L0 - 2 mmol/LMercy Health- [place], KYNOTIFICATIONNOT REPORTEDMer[facility]- [place], [place]NOTIFICATION TIMENOT REPORTEDMer[facility]- [place], KYO2 Device/Flow/% NOT REPORTEDMer[facility]- [place], KYOxygen saturation in Blood68.3 %60 - 85 %[facility], KYOxyhemoglobinNOT GCNKZVAB63 - 98 %[facility], KYpCO2, Marek 42.8[facility] [place], KYpCO2, Marek, Temp AdjNOT REPORTEDMer[facility]- [place], [place] Peep/CpapNOT REPORTEDMer[facility]- [place], KYpH, Ven7.359[facility] [place], KYpH, Marek, Temp AdjNOT REPORTEDMer[facility]- [place], KYPlatelet mean volume (Bld) [Entitic vol]10.4 fL8.1 - 13.5 fLMercy Health- [place], KYPlatelets (Bld) [#/Vol]304 10*3/uL [facility] [place], KYpO2, Ven38.3[facility], KYpO2, Marek, Temp AdjNOT REPORTEDMer[facility]- [place], KYPositive Base Excess, VenNOT REPORTED0 - 2 mmol/L [facility] [place], KYPotassium [Moles/Vol]4.4 mmol/L3.7 - 5.3 mmol/LMercy Health- [place], KYComment on above:SPECIMEN SLIGHTLY HEMOLYZED, RESULTS MAY BE ADVERSELY AFFECTED.PSVNOT REPORTEDMercy Health- [place], KYPT Coag (PPP) [Time]10.2 sMer[facility]- [place], KYPt. PositionNOT REPORTEDMer[facility]- [place], KYRBC (Bld) [#/Vol]4.18 10*6/uLLow4.21 - 5.77 m/uLMercy Health- [place], KYSample SiteNOT REPORTEDMer[facility]- [place], KYSet RateNOT REPORTEDMer[facility]- [place], KYSodium [Moles/Vol]130 mmol/HLbw336 - 144 mmol/LMercy Health- [place], KYText for RespiratoryNOT REPORTED [facility] [place], KYTotal HbNOT DNNBBCBI25 - 16 g/dlMercy Health- [place], KYTotal RateNOT REPORTEDMer[facility]- [place], KYUrea nitrogen [Mass/Vol]16 mg/dL6 - 20 mg/dL [facility] [place], KYVTNOT REPORTEDMer[facility]- [place], KYWBC (Bld) [#/Vol]15.3 10*3/uLHighMercy Health- [place], KYWBC (Bld) [#/Vol]0.0 10*3/uL0.0 per 100 WBCMerPeaceHealth Southwest [facility]- [place], KYUrinalysison 03-16-0339Xqzeothdj UrineNegativeNEGATIVEMerPeaceHealth Southwest Medical Center- [place], KYColor, UAYELLOWYELLOWMer Health- [place], KYGlucose, Ur2+Abnormal NEGATIVEKing'S [facility] [place]- [place], KYInterpretation and review of laboratory results AbnormalMer Health- [place], KYKetones Ql (U)TRACEAbnormalNEGATIVEMercy Health- [place], KYLeukocyte esterase Test strip Ql (U)NegativeNEGATIVEHol[facility]- [place], [place] Nitrite, UrineNegativeNEGATIVEMer Health- [place], KYpH, UA5.5[facility] [place], [place] Protein (U) [Mass/Vol]4+AbnormalNEGATIVEHolzer Medical Center – [facility]- [place], KYSpecific [place], UA 1.035HighMerPeaceHealth Southwest Medical Center- [place], KYTurbidity UACLEARCLEARKing'S Daughters [facility] [place] Urinalysis CommentsNOT REPORTEDHolzer Medical Center [facility]- [place], KYUrine HgbNegativeNEGATIVE [facility] [place], KYUrobilinogen, UrineNormalNormalKing'S [facility] [place], KYUrine Drug Screenon 25-53-7914Ggqipkpimau Screen, UrNegativeNEGATIVEKing'S Daughters [facility] [place]- [place], KYComment on above: (Positive cutoff 1000 ng/mL) Barbiturate Screen, UrNegativeNEGATIVEMercy Health- [place], KYComment on above: (Positive cutoff 200 ng/mL) Benzodiazepine Screen, UrineNegativeNEGATIVEMercy Health- [place], KYComment on above: (Positive cutoff 200 ng/mL) Buprenorphine UrineNOT REPORTEDNEGATIVEKing'S Daughters [facility] [place], KYCannabinoid Scrn, Ur NegativeNEGATIVEMer Health- [place], KYComment on above: (Positive cutoff 50 ng/mL) Cocaine Metabolite, UrineNegativeNEGATIVESuburban [facility]cy [facility]- [place], KYComment on above: (Positive cutoff 300 ng/mL) Interpretation and review of laboratory resultsAbnormalMercy Health- [place], KYMDMA, UrineNOT REPORTEDNEGATIVEMercy Health- [place], KYMethadone Screen, UrineNegative NEGATIVEMercy Health- [place], KYComment on above: (Positive cutoff 300 ng/mL) Methamphetamine, UrineNOT REPORTEDNEGATIVEMercy Health- [place], KYOpiates, Urine PositiveAbnormalNEGATIVEMercy Health- [place], KYComment on above: (Positive cutoff 300 ng/mL) Oxycodone Screen, UrNegativeNEGATIVEMercy Health- [place], KYComment on above: (Positive cutoff 100 ng/mL) Phencyclidine, UrineNegativeNEGATIVEMercy Health- [place], KYComment on above: (Positive cutoff 25 ng/mL) Propoxyphene, UrineNOT REPORTEDNEGATIVEMercy Health- [place], KYTest InformationAssay provides medical screening only. The absence of expected drug(s) and/or metabolite(s) may indicate diluted or adulterated urine, limitations of testing or timing of collection.Tumotorizado.comy Health- [place], KYComment on above:Testing for legal purposes should be confirmed by another method. To request confirmation of test result, please call the lab within 7 days of sample submission. Tricyclic Antidepressants, UrineNOT REPORTEDNEGATIVEMercy Health- [place], KYAPTTon 33-52-0524bHYX Coag (Bld) [Time]31.2 sMohio valley surgical hospitaly [facility]- [place], KYComment on above: PTT Therapeutic Range: 61.7-88.4 Therapeutic range corresponds to plasma heparin levels of 0.3-0.7 U/mL. CBC Auto Differentialon 08-49-9143Nbrkxclpt (Bld) [#/Vol]0.00 10*3/uLMercy Health- [place], KYBasophils/100 WBC (Bld)0 %0 - 2 %[facility] [place], KYDifferential TypeYESMercy Health- [place], KYEosinophils (Bld) [#/Vol]0.10 10*3/uLMercy Health- [place], KYEosinophils/100 WBC (Bld)1 %0 - 5 %[facility] [place], KYErythrocyte distribution width (RBC) [Ratio]16.9 %High12.1 - 15.2 %[facility] [place] Hematocrit (Bld) [Volume fraction]36.8 %Low41 - 53 %[place] Hemoglobin (Bld) [Mass/Vol]12.4 g/dLLow13.5 - 17.5 g/dLKinsley, [place] Interpretation and review of laboratory resultsAbnormalK[place], [place] Lymphocytes (Bld) [#/Vol]1.20 10*3/uLACMC Healthcare System Glen[facility]igh MTLymphocytes/100 WBC (Bld)9 %Low13 - 44 %[facility], [facility] (RBC) [Entitic mass]27.8 pg26 - 34 pgACMC Healthcare System Glenbeigh, MTMCHC (RBC) [Mass/Vol]33.5 g/dL31 - 37 g/dLACMC Healthcare System [facility], MTMCV (RBC) [Entitic vol]82.8 fL80 - 100 fLACMC Healthcare System Glenbeigh MTMonocytes (Bld) [#/Vol]0.60 10*3/uLACMC Healthcare System Glen[facility]igh, MTMonocytes/100 WBC (Bld)4 %Low5 - 9 %[facility] MTPlatelet mean volume (Bld) [Entitic vol]NOT REPORTED6 - 12 fLACMC Healthcare System Glenbeigh, MTPlatelets (Bld) [#/Vol]292 10*3/[place], [place] Platelets (Bld) [#/Vol]NOT REPORTEDAC[facility], MTRBC (Bld) [#/Vol]4.45 10*6/uLLow4.5 - 5.9 m/[facility], MTRB morphology finding Nom (Bld)NOT REPORTEDK[place]ley, KYSegmented neutrophils/100 WBC (Bld)86 %High39 - 75 % [facility], MTSegs Ljlptwzg41.70HighACMC Healthcare System Glen[facility], MTWBC (Bld) [#/Vol] 13.6 10*3/uLPremier Health [facility], MTWBC (Bld) [#/Vol]NOT REPORTEDper 100 WBC [facility], MTWBC MorphologyNOT REPORTEDK[place], KYComprehensive Metabolic Panel w/ Reflex to MGon 54-33-0493Cegsfpt [Mass/Vol]4 g/dL3.5 - 5.2 g/dLHolzer Medical Center [facility]- [place], KYAlbumin/Globulin [Mass ratio]NOT REPORTEDKing'S [facility] [place], KYALP [Catalytic activity/Vol]89 U/L40 - 129 U/LMcleveland clinic foundation [facility]- [place], KYALT [Catalytic activity/Vol]14 U/L5 - 41 U/LMcleveland clinic foundation [facility]- [place], KYAnion gap [Moles/Vol]13 mmol/L9 - 17 mmol/LMercy Health- [place], KYAST [Catalytic activity/Vol]14 U/L<40[facility] [place], KYBilirubin Ql (U)0.25 mg/dLLow0.3 - 1.2 mg/dLHolzer Medical Center – [facility]- [place], KYBun/Cre Koxnr12Jfehq Health- [place], KYCalcium [Mass/Vol] 9.9 mg/dL8.6 - 10.4 mg/dLKing'S D[facility] [place], KYChloride [Moles/Vol]98 mmol/L98 - 107 mmol/LMcleveland clinic [facility]- [place], KYCO2 [Moles/Vol]23 mmol/L20 - 31 mmol/LMcleveland clinic [facility]- [place], KYCreatinine [Mass/Vol]1.89 mg/dLHigh0.7 - 1.2 mg/dLKing'S [facility] [place], KYGFR Nfrqkbjm39 mL/minLow>60[facility] [place], KYGFR Non- Kflfmtyz40 mL/minLow>60[facility] [place], KYGFR/1.73 sq M predicted among non- blacks MDRD (S/P/Bld) [Vol rate/Area][facility], KYComment on above: Average GFR for 50-59 years old: 93 mL/min/1.73sq m Chronic Kidney Disease: <60 mL/min/1.73sq m Kidney failure: <15 mL/min/1.73sq m eGFR calculated using average adult body mass. Additional eGFR calculator available at: http://www.[facility].[employer]/multiple_crcl_2012.htm GFR/1.73 sq M predicted among non-blacks MDRD (S/P/Bld) [Vol rate/Area]NOT REPORTEDAC[facility], KYGlucose [Mass/Vol]271 mg/cWEbwz43 - 99 mg/dLKing'S Daughters [facility] [place]- [place], KYInterpretation and review of laboratory resultsAbnormalACMC [facility], KYPotassium [Moles/Vol]4.0 mmol/L3.7 - 5.3 mmol/LMMarietta Osteopathic Clinic, KYProtein [Mass/Vol]7.2 g/dL6.4 - 8.3 g/dLACMC [facility], KYSodium [Moles/Vol] 134 mmol/CJpn849 - 144 mmol/LMMarietta Osteopathic Clinic, KYUrea nitrogen [Mass/Vol]18 mg/dL6 - 20 mg/dLACMC Healthcare System [facility], MTLactic Acidon 47-43-8160Zujeetk [Moles/Vol] 1.2 mmol/L0.5 - 2.2 mmol/LMMarietta Osteopathic Clinic, MTOtheron 97-75-8328Xqzestxk granulocytes (Bld) [#/Vol]NOT REPORTEDAC[facility], MTProtime-INRon 31-41-7979PAS Coag (PPP) [Relative time]1.0 {INR}[facility], MTComment on above: * THERAPY INDICATIONS * REFERENCE RANGES Pts not on anti-coagulants 1.0 - 1.5 INR Low risk pts on anti-coagulants 2.0 - 3.0 INR High risk pts on anti-coagulants 2.5 - 3.5 INR Prevention of atrial thrombo-embolism 3.0 - 4.5 INR PT Coag (PPP) [Time]9.9 sMMarietta Osteopathic Clinic, MTAlbuminon 38-39-0523Vatkxgf [Mass/Vol]4.1 g/dL3.5 - 5.2 g/dLACMC Healthcare System [facility], MTBUN & Creatinineon 49-79-7570Cneztmqevd [Mass/Vol]1.97 mg/dLHigh0.7 - 1.2 mg/dLACMC [facility], [place] GFR Ldrvbhcx07 mL/minLow>60[facility], MTGFR Non- 36 mL/minLow>60[facility], KYGFR/1.73 sq M predicted among non-blacks MDRD (S/P/Bld) [Vol rate/Area]NOT REPORTEDAC[facility], MTGFR/1.73 sq M predicted among non-blacks MDRD (S/P/Bld) [Vol rate/Area][facility], [place] Comment on above:Average GFR for 50-59 years old: 93 mL/min/1.73sq m Chronic Kidney Disease: <60 mL/min/1.73sq m Kidney failure: <15 mL/min/1.73sq m eGFR calculated using average adult body mass. Additional eGFR calculator available at: http://www.[employer]/multiple_crcl_2012.htm Interpretation and review of laboratory resultsAbnormKettering Health [facility]al [facility]- [place], KYUrea nitrogen [Mass/Vol]23 mg/dLHigh6 - 20 mg/dLKettering Health Preble [place], KYCalciumon 21-36-4410Lnggoop [Mass/Vol]10.3 mg/dL8.6 - 10.4 mg/dLKing'S Daughters [facility] [place]- [place], [place] Electrolyte Panelon 00-60-9705Liblw gap [Moles/Vol]12 mmol/L9 - 17 mmol/LMercy Health- [place], KYChloride [Moles/Vol]99 mmol/L98 - 107 mmol/LMercy Health- [place], [place] CO2 [Moles/Vol]26 mmol/L20 - 31 mmol/LMercy [facility]- [place], KYPotassium [Moles/Vol] 4.7 mmol/L3.7 - 5.3 mmol/LMercy [facility]- [place], KYSodium [Moles/Vol]137 mmol/L135 - 144 mmol/LMercy Health- [place], KYMagnesiumon 20-93-6618Xomkyipgu [Mass/Vol]2.0 mg/dL1.6 - 2.6 mg/dLKing'S Daughters [facility] [place]- [place], KYPTH, Intacton 78-03-7755Zjx Rlynsb98.52 pg/mL15 - 65 pg/mLACMC Healthcare System [facility], KYComment on above:SAMPLES FROM PATIENTS ROUTINELY RECEIVING HIGH DOSE BIOTIN THERAPY MAY SHOW FALSELY DEPRESSED RESULTS. ADDITIONAL INFORMATION MAY BE REQUIRED FOR DIAGNOSIS. Phosphoruson 98-63-0512Ckezemjfv [Mass/Vol]3.9 mg/dL2.5 - 4.5 mg/dLACMC Healthcare System [facility], MTVitamin D 25 Hydroxyon 95-26-4594Ybyfvhjbiedecw and review of laboratory resultsAbnormKettering Health [facility]- [place], KYVit D, 25-Hydroxy8.5 ng/mLLow30 - 100 ng/mL [facility] [place], KYComment on above: Reference Range: Vitamin D status Range Deficiency <20 ng/mL Mild Deficiency 20-30 ng/mL Sufficiency 30-100 ng/mL Toxicity >100 ng/mL Comprehensive Metabolic Panelon 50-69-6338Xueaehm [Mass/Vol]3.7 g/dL3.5 - 5.2 g/dLMercy Health- [place], KYAlbumin/Globulin [Mass ratio]NOT REPORTEDMercy Health- [place], KYALP [Catalytic activity/Vol]78 U/L40 - 129 U/LMer[facility]- [place], KYALT [Catalytic activity/Vol]18 U/L5 - 41 U/LMer[facility]- [place], KYAnion gap [Moles/Vol]11 mmol/L9 - 17 mmol/LMer[facility]- [place], KYAST [Catalytic activity/Vol]14 U/L<40[facility] [place], KYBilirubin Ql (U)0.25 mg/dLLow0.3 - 1.2 mg/dLMercy Health- [place], KYBun/Cre Oeiyj27Svkdi Health- [place], KYCalcium [Mass/Vol] 10.0 mg/dL8.6 - 10.4 mg/dLMercy Health- [place], KYChloride [Moles/Vol]102 mmol/L98 - 107 mmol/LMer[facility]- [place], KYCO2 [Moles/Vol]23 mmol/L20 - 31 mmol/LMer[facility]- [place], KYCreatinine [Mass/Vol]1.64 mg/dLHigh0.7 - 1.2 mg/dLMercy Health- [place], KYGFR Lhbiedxx22 mL/minLow>60[facility] [place], KYGFR Non- Bxflpnot97 mL/minLow>60[facility]- [place], KYGFR/1.73 sq M predicted among non- blacks MDRD (S/P/Bld) [Vol rate/Area]NOT REPORTEDMercy Health- [place], KYGFR/1.73 sq M predicted among non-blacks MDRD (S/P/Bld) [Vol rate/Area][facility] [place] Comment on above:Average GFR for 50-59 years old: 93 mL/min/1.73sq m Chronic Kidney Disease: <60 mL/min/1.73sq m Kidney failure: <15 mL/min/1.73sq m eGFR calculated using average adult body mass. Additional eGFR calculator available at: http://www.Last Guide/multiple_crcl_2012.htm Glucose [Mass/Vol]216 mg/jKCiap21 - 99 mg/dLACMC Healthcare System [facility], MTPotassium [Moles/Vol]4.5 mmol/L3.7 - 5.3 mmol/LMMarietta Osteopathic Clinic, KYProtein [Mass/Vol]7.4 g/dL6.4 - 8.3 g/dLACMC [facility], KYSodium [Moles/Vol]136 mmol/L135 - 144 mmol/LMMarietta Osteopathic Clinic, KYUrea nitrogen [Mass/Vol]17 mg/dL6 - 20 mg/dLACMC Healthcare System [facility], MTHemoglobin A1Con 35-05-4044Rvfxquq [Mass/Vol]246 mg/dLACMC Healthcare System [facility], MTComment on above:The ADA and AACC recommend providing the estimated average glucose result to permit better patient understanding of their HBA1c result. HbA1c (Bld) [Mass fraction]10.2 %High4.8 - 5.9 %[facility], [place] Interpretation and review of laboratory resultsAbnormalKinsley, KYLDL Cholesterol, Directon 03-75-4811Xadvqskhmyz in LDL [Mass/Vol]76 mg/dL<100[facility], MTLipid Panelon 23-62-5093Jyulubizeke [Mass/Vol]163 mg/dL<200[facility], MTComment on above: Cholesterol Guidelines: <200 Desirable 200-240 Borderline >240 Undesirable Cholesterol in HDL [Mass/Vol]27 mg/dLLow>40[facility], MTComment on above: HDL Guidelines: <40 Undesirable 40-59 Borderline >59 Desirable Cholesterol in LDL [Mass/Vol]0 - 130 mg/dLK[place]ley, KYComment on above: Calculation not valid for Triglyceride value greater than 400 mg/dL. Direct LDL reflexed LDL Guidelines: <100 Desirable 100-129 Near to/above Desirable 130-159 Borderline >159 Undesirable Direct (measured) LDL and calculated LDL are not interchangeable tests. Cholesterol in VLDL [Mass/Vol]1 - 30 mg/dLK[place], [place] Cholesterol.total/Cholesterol in HDL [Mass ratio]6 {ratio}High<5[place], KYTriglyceride [Mass/Vol]531 mg/dLHigh<150[place], KYComment on above: Triglyceride Guidelines: <150 Desirable 150-199 Borderline 200-499 High >499 Very high Based on AHA Guidelines for fasting triglyceride, August 2012. Otheron 85-75-9363Npqasammxwovdv and review of laboratory resultsAbnormalK[place], KYPatient Fasting?on 23-34-0593Xdhupxn Fasting?YES[place] Vital Signs Date TimeVital SignValuePerforming ZccnnimokZwxunlke62-55-5916 17:53-0400Body qwdgabdnzfo67.8 [degF]Chasenolaaed Borjajohn Hicks, DO Work Phone: [facility]04-02-2025 17:53-0400Diastolic blood mm[Hg]Chasenolaade Constantino Kurt, DO Work Phone: [facility]04-[facility]2025 17:53-0400Systolic blood zdmgvebx336 mm[Hg]Marciaade Dougie Hicks, DO Work Phone: [facility]04-02-2025 17:00-0400Heart rate71 /Ramone Constantino I, DO Work Phone: [facility]04-02-2025 17:00-0400 Respiratory rate22 /Ramone Constantino I, DO Work Phone: [facility]04-02-2025 17:00-5502TkH6% (BldA) [Mass fraction]98 %Marciaade Dougie Hicks, DO Work Phone: [facility]04-02-2025 06:00-0400Body mass index (BMI) [Ratio]44.5 kg/v0Fnsmzquc Dougie Hicks, DO Work Phone: [facility]04-02-2025 06:00-0400Body tcjtui000.7 kgMotawana Constantino I, DO Work Phone: [facility]03-31-2025 18:30-0400Body atiwxw879.3 cmMotawana Constantino I, DO Work Phone: [facility]10-15-2024 10:15-0400Diastolic blood vbvhkzdi13 mm[Hg]Nacho Montiel MD Work Phone: [facility]10-15-2024 10:15-0400Heart rate71 /Maria Teresa Montiel MD Work Phone: [facility]10-15-2024 10:15-0400 Respiratory rate18 /Maria Teresa Montiel MD Work Phone: [facility]10-15-2024 10:15-9478KiK3% (BldA) [Mass fraction]92 %Nacho Montiel MD Work Phone: [facility]10-15-2024 10:15-0400Systolic blood mm[Hg]Nacho Montiel MD Work Phone: [facility]10-15-2024 10:02-0400Body .8 [degF]Nacho Montiel MD Work Phone: [facility]08-08-2024 10:39-0400Body mass index (BMI) [Ratio]42.34 kg/i7FbvrxfTapan Rudolph MD Work Phone: 1(246) [phone]linol41-57-7696 10:39-0400Body ofgoxp907.05 kg Tapan Rudolph MD Work Phone: 1(299) [phone]avynu44-57-4670 10:00-0400Heart rate97 /minTapan Rudolph MD Work Phone: 1(133) [phone]lbrfr63-84-5491 07:10-0400Body sflbexlvcah38.5 [degF]Tapan Rudolph MD Work Phone: 1(853) [phone]xxlhj91-03-1187 07:10-0400Diastolic blood spjjnnxi07 mm[Hg]Tapan Rudolph MD Work Phone: 1(767) [phone]wexey13-16-5614 07:10-0400Respiratory rate16 /min Tapan Rudolph MD Work Phone: 1(512) [phone]sYsdwli53-97-3319 07:10-5873MwY3% (BldA) [Mass fraction]96 %Tapan Rudolph MD Work Phone: 1(308) [phone]imapq12-48-4771 07:10-0400Systolic blood pressure 150 mm[Hg]Tapan Rudolph MD Work Phone: 1(141) [phone]eEawfff08-21-3252 18:10-0400Body akhevi148.3 cm Tapan Rudolph MD Work Phone: 1(650) [phone]wagxs14-16-3108 14:57-0400Body mass index (BMI) [Ratio]45.04 kg/q0YsrbwyBrian Arevalo MD Work Phone: 1(164) [phone]iptjm33-82-8703 14:57-0400Body okzreo142.35 kg Brian Arevalo MD Work Phone: 1(543) [phone]junar03-62-4069 14:57-0400Diastolic blood xjcnhvlo43 mm[Hg]Brian Arevalo MD Work Phone: 1(663) [phone]jifzq40-21-3680 14:57-0400Heart rate72 /minBrian Arevalo MD Work Phone: 1(482) [phone]ltzpb86-82-6830 14:57-0400Systolic blood pressure 131 mm[Hg]Brian Arevalo MD Work Phone: 1(126) [phone]iazgh51-79-2939 13:39-0400Body .3 cm Brian Arevalo MD Work Phone: 1(806) [phone]qykjn75-19-0925 13:39-0400Body mass index (BMI) [Ratio]45.06 kg/n3OrvcbwBrian Arevalo MD Work Phone: 1(834) [phone]ulpbx56-70-0068 13:39-0400Body kvewos919.39 kg Brian Arevalo MD Work Phone: 1(873) [phone]vuyTtxfck19-44-9865 13:39-0400Diastolic blood dpfpuvln62 mm[Hg]Brian Arevalo MD Work Phone: 1(719) [phone]ymvmb20-13-8970 13:39-0400Heart rate73 /minBrian Arevalo MD Work Phone: 1(516) [phone]lsvxl02-55-0951 13:39-5137RrY8% (BldA) [Mass fraction]95 %Brian Arevalo MD Work Phone: 1(212) [phone]ptbml65-26-5823 13:39-0400Systolic blood pressure 169 mm[Hg]Brian Arevalo MD Work Phone: 1(580) [phone]hlhic59-69-9041 14:04-0400Body .3 cm Brian Arevalo MD Work Phone: 1(287) [phone]mafqp06-34-0236 14:04-0400Body mass index (BMI) [Ratio]45.04 kg/j8LrjckxBrian Arevalo MD Work Phone: 1(578) [phone]cnfmq72-01-3460 14:04-0400Body sjqnef597.35 kg Brian Arevalo MD Work Phone: 1(510) [phone]kcdwu27-91-8193 14:04-0400Diastolic blood dfexnoos22 mm[Hg]Brian Arevalo MD Work Phone: 1(356) [phone]ljcxq35-39-7923 14:04-0400Heart rate76 /minBrian Arevalo MD Work Phone: 1(357) [phone]mKayskl06-35-3539 14:04-0400Respiratory rate16 /min Brian Arevalo MD Work Phone: 1(763) [phone]wyads93-65-5657 14:04-7270LxU2% (BldA) [Mass fraction]95 %Brian Arevalo MD Work Phone: 1(710) [phone]vsquv71-03-1843 14:04-0400Systolic blood pressure 134 mm[Hg]Brian Arevalo MD Work Phone: 1(439) [phone]mlxfw91-18-7878 13:00-0400Body .91 [degF][address] Work Phone: 1(295) 355-275907-14-2021 13:00-0400Diastolic blood biplioaq98 mm[Hg] [address] Work Phone: 1(493) 578-830407-14-2021 13:00-0400Heart rate73 /min[address] Work Phone: 1(351) 173-690507-14-2021 13:00-0400Respiratory rate18 /min[address] Work Phone: 1(631) 411-959907-14-2021 13:00-0400Systolic blood judlhzfc695 mm[Hg] [address] Work Phone: 1(830) 111-554801-20-2021 13:08-0500Body Pdcwsptgffj95.01 [degF][address], [id number] 13:08-0500BP Tvegnqfvz97 mm[Hg][address], BP96-48-1745 13:08-0500BP Nwefcnrp097 mm[Hg][address], [place] 12-04-2020 13:08-0500Pulse (Heart Rate)76 /min[address] 12-04-2020 13:08-0500Respiratory Rate16 /min[address], [id number] 13:20-0500Body Arniwibqswy04.01 [degF][address], XG30-12-8825 13:20-0500BP Bwzxjkzis80 mm[Hg][address], DF39-53-4375 13:20-0500BP Eztgfrnx468 mm[Hg][address], JF52-69-6073 13:20-0500Pulse (Heart Rate)79 /minMwh [address] [place] [address], GY38-03-5797 13:20-0500Respiratory Rate16 /minMwh [address] [place] [address], AU42-73-4402 11:34-0400Body Loiswioxhuy63.2 [degF][address], XT16-36-5160 11:34-0400BP Miauduqfw61 mm[Hg][address], TO19-74-9367 11:34-0400BP Vwoznfxp098 mm[Hg][address], EW10-66-8467 11:34-0400Pulse (Heart Rate)76 /minMwh [address] [place] [address], [place] 09-05-2020 11:34-0400Respiratory Rate16 /min[address], UR07-76-0687 13:07-0400Body Pdzfnhzuthw70.7 [degF][address], KI30-69-6914 13:07-0400BP Kmwwdiunk37 mm[Hg][address], ZC64-83-9802 13:07-0400BP Tlahlidp019 mm[Hg][address], RY53-52-1594 13:07-0400Pulse (Heart Rate)68 /minMwh [address] [place] [address], QH23-81-6171 13:07-0400Respiratory Rate18 /minM[address], NC11-46-6774 13:52-0400Body Sdqyyyrnpld59.3 [degF][address], RK43-29-1983 13:52-0400BP Ronjucotu38 mm[Hg][address], FE28-16-1411 13:52-0400BP Dcvoxqdp205 mm[Hg][address], QZ10-23-7977 13:52-0400Pulse (Heart Rate)72 /minMwh [address] [place] [address], [place] 07-10-2020 13:52-0400Respiratory Rate18 /minM[address], FZ92-68-8564 13:21-0400Body Ghkwntktmbx12.01 [degF][address], ES74-92-4728 13:21-0400BP Bjdasxlof19 mm[Hg][address], FR52-39-3451 13:21-0400BP Czeqbyfj541 mm[Hg][address], OC93-48-9038 13:21-0400Pulse (Heart Rate)66 /minM[address], YF84-20-8472 13:21-0400Respiratory Rate16 /min[address], LF30-64-5463 13:03-0400Body Kdnwdakkyay94 [degF][address], [place]11-39-5454 13:03-0400BP Thcqbxicf29 mm[Hg][address], VZ07-85-5236 13:03-0400BP Kcofwkeb832 mm[Hg][address], [place] 05-13-2020 13:03-0400Pulse (Heart Rate)72 /min[address], [place] 05-13-2020 13:03-0400Respiratory Rate16 /min[address], WD63-33-8783 12:00-0500Pulse (Heart Rate)65 /[facility], WO05-83-9763 11:16-0500Body Gtvkfiweqwf93.1 [degF][facility], WO65-79-9422 11:16-0500BP Ldjrxcvlj98 mm[Hg][facility], AW18-14-5251 11:16-0500BP Jstzmefd704 mm[Hg][facility], IV48-72-5048 11:16-0500Pulse Nhbsagtx96 %[facility], UK63-01-9985 11:16-0500Respiratory Rate18 /minAd[facility], VO17-12-2752 06:30-0500BMI (Body Mass Index)42.03 kg/d1QqgxalliCl[place], [place] 10-07-2019 06:30-0500Body etpcxx239.09 kgCl[place], [place] 09-29-2019 18:40-9402Mawevx134.3 cmVirender [facility], NT78-35-9362 15:45-0500Body Fmyvuhpbirm14.01 [degF][facility], [place] 09-29-2019 15:45-0500BP Zwqiotdea47 mm[Hg][facility], [place] 09-29-2019 15:45-0500BP Lftlryxv661 mm[Hg][facility], [place] 09-29-2019 15:45-0500Pulse (Heart Rate)74 /minPark[facility], DI09-57-3612 15:45-0500Pulse Wogujppm72 %[facility], [place] 09-29-2019 15:45-0500Respiratory Rate20 /minPark[facility], SY73-57-9032 10:11-0539Odugka596.3 [facility]PS[facility], [place] 09-29-2019 05:10-0500BMI (Body Mass Index)42.29 kg/o0MqxqkruhParkview Health [facility] Hospital, LX06-79-8143 05:10-0500Body .91 kgPark[facility], VC30-00-6956 08:32-0400Body Caiskotxtjc49.8 [degF]Mami Molina [facility], MI75-19-8506 08:32-0400BP Avrbnrifc77 mm[Hg]Mami Molina [facility], WR75-16-1738 08:32-0400BP Laojqlrn756 mm[Hg]Mami Molina [facility], SV16-92-8864 08:32-0400Pulse (Heart Rate)92 /minSuoravace NaomiMarietta Osteopathic Clinic, PF54-59-0575 08:32-0400Pulse Bcrtedxt92 %Mami Molina [facility], AW47-88-3481 08:32-0400Respiratory Rate20 /minSouravace Jesse [facility], TI03-70-5742 11:15-0400BMI (Body Mass Index)43.71 kg/m2 Mami [facility]gadooh[facility] hospitalgayathri [facility], XF21-11-5802 11:15-0400Body boihbm124.26 kg Mami Salgadoohio valley surgical hospitalgayathri [facility], MU68-41-8472 11:15-3463Bessca358.3 cmCdiogo GlaserSumma Health Akron Campusgayathri [facility], YG19-92-3585 03:56-0400Respiratory rateNOT REPORTED Mami EllACMC [facility], EZ19-84-3370 01:38-0400Pulse Qswgbonz765 % Mami [facility], DD08-12-3238 01:38-0400Respiratory Rate18 /min , GD23-30-4507 00:45-0400BP Jalsqydni29 mm[Hg] , QM59-27-8977 00:45-0400BP Elxepoyb324 mm[Hg] , ZU11-15-7541 23:19-0400Pulse (Heart Rate)84 /minChjamieace [facility], JE73-67-9431 21:46-0400Body Fjxgmnyjjhn53.4 [degF]Mami [facility], [place] Encounters Encounter DateEncounter TypeCare ProviderFacilityStart: 09-26-2025 End: 73-37-2126Jafdho OnlyJessy Byrne [facility] Heart & Vascular PhysiciansComment on above:S/P TAVR (transcatheter aortic valve replacement) (Primary Dx)Start: 09-25-2025 End: 62-76-5712Sywbupboqoglj Rosalinda Byrne [facility] Heart & Vascular PhysiciansStart: 13-19-6004Lpdrptfyej and management of inpatientATISH P [facility] Medical Centertart: 08-22-2025 End: 67-54-4796igiuwxdmhsRQGEI R ALSelect Medical Specialty Hospital - Cincinnatitart: 07-17-2025 End: 69-29-1653acehdxlehjXPVPF R ALSelect Medical Specialty Hospital - Cincinnatitart: 07-17-2025 End: 17-09-7095Pycrwgwvlg hospital visit by physicianM Med Onc 1MWHZ MED ONCComment on above:Carcinoid tumor of stomach, unspecified whether malignant (HCC) (Primary Dx)Start: 06-14-2025 End: 44-92-2684eohxnkfzkcZSCHW BACKMercy Willard HospitalStart: 06-14-2025 End: 32-62-9753Slxxcftlcy [facility] Med [facility]c Rm 1[facility]MAIMON[facility] MED ONCComment on above:Carcinoid tumor of stomach, unspecified whether malignant (HCC) (Primary Dx)Primary osteoarthritis of both kneesStart: 04-30-2025 End: 82-01-4413pgesnnqwphNMWN BRINDA ALIMercy [place] HospitalStart: 04-30-2025 End: 59-45-9482Xupfghofmh [facility] 2 [facility] Cardiac RehabComment on above:ArrivedStart: 04-27-2025 End: 25-54-6334jrtdcnjibsZRNZY [facility] HospitalStart: 04-27-2025 End: 82-09-4764Bbyrdekycs hospital visit by physicianMan[facility] Med Onc 1[facility]MAIMONID[facility] MED ONCComment on above:Carcinoid tumor of stomach, unspecified whether malignant (HCC) (Primary Dx)Start: 04-23-2025 End: 70-25-8116deqrqczgouCFWIPCiara Michelle [place] HospitalStart: 04-23-2025 End: 55-74-8540Gawnqmxvzv [facility] 2 [facility] LABComment on above:Malignant carcinoid tumor of stomach (HCC); Carcinoid tumor of stomach, unspecified whether malignant (HCC); Malignant neoplasm metastatic to liver (HCC); Poorly controlled type 2 diabetes mellitus with complication (HCC)ArrivedStart: 04-16-2025 End: 06-32-0948dkyqigvxoaTDSH BRINDA ALIMercy [place] HospitalStart: 04-16-2025 End: 91-05-1632Gfounhobix hospital [facility] by [facility] Rm 2 [facility] Cardiac RehabComment on above:ArrivedStart: 04-11-2025 End: 68-19-6852vnxzzhnzorXOWW BRINDA ALIMercy [place] HospitalStart: 04-11-2025 End: 31-86-9832Vwxtyfdxni hospital visit by physician[facility] Cardiopulm Rehab Rm 2 MTHZ Cardiac RehabComment on above:ArrivedStart: 04-03-2025 End: 48-54-7065vqzfspzawyEEPH BRINDAVan [facility]ren [facility] Hospital HospitalStart: 04-03-2025 End: 84-27-5945Fpsqrgjdct hospital visit by physicianRobert [facility] RoomLONG [facility]LAND [facility] Cardiac RehabComment on above:ArrivedStart: 03-22-2025 End: 96-09-2790ubtrwombkpQPORP [facility] HospitalStart: 03-22-2025 End: 96-13-0431Kuebhldtrh hospital [facility] physician[facility] Med Onc 1MWHZ MED ONCComment on above:Carcinoid tumor of stomach, unspecified whether malignant (HCC) (Primary Dx)Start: 02-22-2025 End: 49-92-4304ussmqylpyfVMDWX BACKMercy Willard HospitalStart: 02-22-2025 End: 77-35-1358Bfjcrrjaio hospital [facility] by physicianMan[facility] Med Onc 1MWHZ LaboratoryComment on above:Poorly controlled type 2 diabetes mellitus with complication (HCC)Carcinoid tumor of stomach, unspecified whether malignant (HCC)Start: 02-09-2025 End: 18-08-4051Rnpfouzfmd and management of inpatientOktawana Constantino DO Work Phone: stvz Car 1- SICUComment on above:NSTEMI (non-ST elevated myocardial infarction) (HCC) (Primary Dx); Coronary artery disease with angina pectoris, unspecified vessel or lesion type, unspecified whether [place] or transplanted heartStart: 01-10-2025 End: 76-04-6019zfqrldfswlIXWAU [facility] HospitalStart: 01-10-2025 End: 82-50-9124Motwaflnzw hospital [facility] by physician[facility] Med Onc 1MWHZ MED ONCComment on above:ArrivedStart: 12-13-2024 End: 49-15-2382mlabivtpcxMHHNBCiara Michelle [facility] HospitalStart: 12-13-2024 End: 95-14-4338Hpoopmisyf hospital visit by physicianMan[facility] Med Onc Rm 1MZ MED ONCComment on above:Carcinoid tumor of stomach, unspecified whether malignant (Primary Dx)Start: 11-13-2024 End: 58-74-0080nmfyqejpmvVOCLC Saad Michelle [place] HospitalStart: 11-13-2024 End: 56-66-5964Njhlwemthc hospital visit by physicianMan[facility] Med Onc 1MZ MED ONCComment on above:Carcinoid tumor of stomach, unspecified whether malignant (Primary Dx)Start: 10-19-2024 End: 24-16-4736urszursuslPNITCharissa Pederson [place] HospitalStart: 10-19-2024 End: 90-28-4993Lgjqxvusgm hospital visit by physicianAbdirizak Oro MD Work Phone: mwhz LaboratoryComment on above:Poorly controlled type 2 diabetes mellitus with complication (HCC); Other iron deficiency anemia; Carcinoid tumor of stomach, unspecified whether malignant; Malignant neoplasm metastatic to liver (HCC)Vitamin D deficiency; Mixed hyperlipidemia; Coronary artery disease involving [place] coronary artery of [place] heart without angina pectoris; Benign essential HTN; SOB (shortness of breath)Start: 10-10-2024 End: 76-28-3570uugnrambzaFCIMZ Saad STOVER-Yarely [place] HospitalStart: 10-10-2024 End: 74-56-7747Mqijykkgfx hospital visit by physicianMan[facility] Med Onc 1MZ MED ONCComment on above:Carcinoid tumor of stomach, unspecified whether malignant (Primary Dx)Start: 09-06-2024 End: 54-48-5814fhszzzfwlbFLKXN Saad STOVERYarely [place] HospitalStart: 08-29-2024 End: 71-65-6310Jesawljyra hospital visit by physicianNacho Montiel MD Work Phone: stvz CVORStart: 06-27-2024 End: 58-56-7945Oqycccvgbplup procedureNess LaiKettering Health Greene Memorial Cardio Pulmonary RehabComment on above:Phase II Cardiac RehabStart: 06-21-2024 End: 54-20-7425ZrixwaFlkdry Weekley [facility] Vascular Physicians Comment on above:Medication RefillStart: 06-15-2024 End: 89-04-5211Tcaejjfoci and management of inpatientHuchelsieein Maida Palacios DO Work Phone: [phone] [place] [address] Intermediate Care UnitStart: 06-12-2024 End: 61-91-5140Uxpbhj outpatient visit 10 Monty Arevalo MD Work Phone: [facility] Surgical SpecialistsComment on above:ESRF (end stage renal failure) (HCC) (Primary Dx)Start: 06-12-2024 End: 70-59-6038jyavudvrxtWNRSW BACKOhio Health AmbulatoryStart: 06-07-2024 End: 11-60-5362Xllilwjbet hospital visit by physicianMan[facility] Op Treatment Daw[place] 1MWHZ OP NursingComment on above:Carcinoid tumor of stomach, unspecified whether malignant (Primary Dx)Start: 38-07-9213Ckfuqrwcvzpqs examination Favian Arevalo MD Work Phone: [facility]Start: 05-04-2024 End: 78-07-0855Vduqtucnpf hospital visit by physicianMan[facility] Med Onc Rm 1MWHZ MED ONCComment on above:Canceled (Other)Start: 05-01-2024 End: 09-86-4368Zmwdqc outpatient visit 25 minutesBrian Arevalo MD Work Phone: [facility] Surgical SpecialistsComment on above:ESRF (end stage renal failure) (HCC) (Primary Dx)Start: 05-01-2024 End: 77-78-5757lamqeftcynIRRFE BACKOhio Health AmbulatoryStart: 03-27-2024 End: 23-30-4089Ozlvvo outpatient new 45 Margaret Miller MD Work Phone: [facility] Surgical SpecialistsComment on above:GIST, non-malignant (Primary Dx)Start: 03-27-2024 End: 99-97-8203itkmdgkdzcWQDIJ [facility] AmbulatoryStart: 03-22-2024 Transcrida Miller MD Work Phone: [facility] Surgical SpecialistsComment on above:End stage renal disease (HCC) (Primary Dx)Start: 03-03-2024 End: 81-61-1774Jlqovszqem hospital visit by physicianMan[facility] Med Onc [address] MED ONCComment on above:Carcinoid tumor of stomach, unspecified whether malignant (Primary Dx)Start: 01-13-2024 End: 07-64-7958Xjmycnygje hospital visit by physicianMan[facility] Med Onc [address] MED ONCComment on above:Carcinoid tumor of stomach, unspecified whether malignant (Primary Dx)Start: 78-38-2382uufygnbnpmOLJHCJZCHSeattle [facility] Ambulatory Start: 12-03-2023 End: 28-88-5706Ejfavpfwzd hospital visit by Florence Carlson MD Work Phone: MWHZ LaboratoryStart: 48-56-1292rycbgfidugYWECSAEXMSeattle VA Medical Center AmbulatoryStart: 07-14-2023 End: 11-74-2304Kpvounmtey hospital visit by physicianMan[facility] Med Onc [address] MED ONCComment on above:Carcinoid tumor of stomach, unspecified whether malignant (Primary Dx)Start: 07-13-2023 End: 22-31-3789Qoamnkpbka hospital visit by physicianMan[facility] Med Onc [address] MED ONCComment on above:Canceled (Patient)Start: 05-13-2023 End: 38-42-9933Xndotmchbc hospital visit by physicianMan[facility] Med Onc [address] MED ONCComment on above:Carcinoid tumor of stomach, unspecified whether malignant (Primary Dx)Start: 05-05-2023 End: 79-64-6785Jcmnejqcpz hospital visit by physicianMan[facility] Med Onc 1[facility] MED ONCStart: 03-22-2023 End: 25-82-2511Kifmolnmyn hospital [facility]Man[facility] Additional Xray At Mw MWHZ LaboratoryComment on above:Vitamin D deficiency; Mixed hyperlipidemia; Coronary artery disease involving [place] coronary artery of [place] heart without angina pectoris; Benign essential HTNStart: 03-08-2023 End: 50-10-1809Tvzvuykbmr hospital visit by physicianMan[facility] Med Onc [address] LaboratoryComment on above:Carcinoid tumor of stomach, unspecified whether malignant; Poorly controlled type 2 diabetes mellitus with complication (HCC)Carcinoid tumor of stomach, unspecified whether malignant (Primary Dx)Start: 03-03-2023 End: 27-42-0955Bpsshpcvfr hospital [facility] by [facility]Man[facility] Med Onc [address] MED ONCComment on above:Canceled (Patient)Start: 02-03-2023 End: 48-41-5839Qyvmmujena hospital visit by physicianMan[facility] Med Onc [address] MED ONCComment on above:Carcinoid tumor of stomach, unspecified whether malignant (Primary Dx)Start: 01-05-2023 End: 09-02-1827Tjzpgotlyc hospital visit by physicianMan[facility] Med Onc [address] MED ONCComment on above:Carcinoid tumor of stomach, unspecified whether malignant (Primary Dx)Start: 12-08-2022 End: 01-65-7058Cpwkgoujhp hospital visit by physicianMan[facility] Med Onc [address] LaboratoryComment on above:Carcinoid tumor of stomach, unspecified whether malignant (Primary Dx)Start: 11-12-2022 End: 90-55-5191Wqzarnwkrv hospital visit by physicianMan[facility] Med Onc [address] MED ONCComment on above:Carcinoid tumor of stomach, unspecified whether malignant (Primary Dx)Poorly controlled type 2 diabetes mellitus with complication (HCC) Controlled type 2 diabetes mellitus without complication, with long-term current use of insulin (HCC)Start: 08-11-2022 End: 13-70-5638Ztigunejwu hospital visit by [facility]Man[facility] Med Onc [address] LaboratoryComment on above:Mixed hyperlipidemiaMalignant carcinoid tumor of stomach (HCC)Carcinoid tumor of stomach, unspecified whether malignant (Primary Dx)Start: 07-14-2022 End: 11-58-9553Kqzgtkijen hospital visit by Florence Carlson MD Work Phone: [facility] LaboratoryComment on above: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)Start: 07-10-2022 End: 38-96-2126Dxfxqufkpr hospital [facility] by [facility]Man[facility] Med Onc [address] MED ONCStart: 06-09-2022 End: 17-46-2856Qzceizyrsp hospital visit by physicianMan[facility] Med Onc [address] MED ONCComment on above:Canceled (Patient preference)Start: 05-25-2022 End: 60-99-5175Zitrfjvuuh hospital visit by Florence Carlson MD Work Phone: mWHZ LaboratoryStart: 2022 End: 13-48-5958Hybugbfzgq hospital visit by physicianMan[facility] Med Onc [address] MED ONCComment on above:Carcinoid tumor of stomach, unspecified whether malignant (Primary Dx)Start: 04-14-2022 End: 92-72-3744Waaymeejbq hospital visit by physicianMan[facility] Med Onc [address] MED ONCComment on above:Carcinoid tumor of stomach, unspecified whether malignant (Primary Dx)Start: 03-17-2022 End: 65-22-5466Rdcwaivvyt hospital visit by physicianMan[facility] Med Onc [address] LaboratoryComment on above: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); Vitamin D deficiency; Mixed hyperlipidemia; Coronary artery disease involving [place] coronary artery of [place] heart without angina pectoris; Fatigue, unspecified type; Shortness of breath; NABOR (obstructive sleep apnea); Benign essential HTNCarcinoid tumor of stomach, unspecified whether malignant (Primary Dx)Vitamin D deficiency; Mixed hyperlipidemia; Coronary artery disease involving [place] coronary artery of [place] heart without angina pectoris; Fatigue, unspecified type; Shortness of breath; NABOR (obstructive sleep apnea); Benign essential HTNStart: 01-19-2022 End: 10-16-3609Qmissleppf hospital [facility] by [facility] Med Onc [address] MED ONCComment on above:Carcinoid tumor of stomach, unspecified whether malignant (Primary Dx)Start: 01-16-2022 End: 23-32-8232Ytkmpzkmch hospital visit by Florence Carlson MD Work Phone: mZ LaboratoryStart: 12-22-2021 End: 57-72-8672Tuptbndsbc hospital visit by physicianMan[facility] Med Onc [address] MED ONCComment on above:Carcinoid tumor of stomach, unspecified whether malignant (Primary Dx)Start: 10-22-2021 End: 23-69-5746Hzktublczt hospital visit by Florence Carlson MD Work Phone: m LaboratoryComment on above: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)Start: 09-23-2021 End: 30-15-3990Fjvjjolepg hospital visit by physicianM Med Onc 1MZ MED ONCComment on above:Carcinoid tumor of stomach, unspecified whether malignant (Primary Dx)Start: 07-28-2021 End: 57-89-9588Rsgjpzqxta hospital visit by physicianM Med Onc 1MZ MED ONCComment on above:Carcinoid tumor of stomach, unspecified whether malignant (Primary Dx)Start: 07-25-2021 End: 59-63-1493Nrumbfutkm hospital visit by Florence Carlson MD Work Phone: mwhz LaboratoryStart: 05-28-2021 End: 60-34-2088Ecssgqysjg hospital visit by physicianM Med Onc 1MZ MED ONCComment on above:Carcinoid tumor of stomach, unspecified whether malignant (Primary Dx)Start: 04-25-2021 End: 61-00-1615Oomxomebju hospital visit by physicianM Med Onc 1MZ MED ONCComment on above:Carcinoid tumor of stomach, unspecified whether malignant (Primary Dx)Carcinoid tumor of stomach, unspecified whether malignant; 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)Start: 03-28-2021 End: 08-84-7606Qezyckidwr hospital visit by physicianM Med Onc 1MZ MED ONCComment on above:Carcinoid tumor of stomach, unspecified whether malignant (Primary Dx)Start: 02-26-2021 End: 03-18-9847Yirjyjybsj hospital visit by physicianM Med Onc 1MZ MED ONCComment on above:Carcinoid tumor of stomach, unspecified whether malignant (Primary Dx)Start: 01-29-2021 End: 57-96-7553Aeiellbcwc hospital visit by physicianM Med Onc 1MZ MED ONCComment on above:Carcinoid tumor of stomach, unspecified whether malignant (Primary Dx)Start: 01-28-2021 End: 83-39-9258Nmuhuzhuuo hospital [facility] Laboratory Comment on above: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)Start: 01-01-2021 End: 43-41-1314Zgufjqlqby hospital [facility] Med Onc 1[facility] MED ONCComment on above:Carcinoid tumor of stomach, unspecified whether malignant (Primary Dx)Start: 12-04-2020 End: 72-72-7036Uekevrmgiv hospital visit by [facility]Man[facility] Med Onc [address] MED ONCComment on above:Carcinoid tumor of stomach, unspecified whether malignant (Primary Dx)Start: 11-04-2020 End: 84-05-4229Nsabjokwhb hospital visit by physicianMan[facility] Med Onc [address] MED ONCComment on above:Carcinoid tumor of stomach, unspecified whether malignant (Primary Dx)Start: 10-28-2020 End: 95-28-1935Nnovcbyfdd hospital visit by physicianS[facility] Laboratory Comment on above:Mixed hyperlipidemia; 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); Benign essential HTNStart: 10-04-2020 End: 40-83-8756Mjexapqiqw hospital visit by physicianMan[facility] Med Onc [address] MED ONCComment on above:Carcinoid tumor of stomach, unspecified whether malignant Start: 09-18-2020 End: 55-41-2167Eftrsjlvit hospital visit by [facility] Laboratory Comment on above:Carcinoid tumor of stomach, unspecified whether malignantStart: 09-05-2020 End: 58-99-1714Iyvwgivjom hospital [facility] by [facility] Med Onc [address] MED ONCComment on above:Carcinoid tumor of stomach, unspecified whether malignant (Primary Dx)Start: 08-07-2020 End: 07-48-6888Xqogzfuafo hospital visit by [facility]Man[facility] Med Onc [address] MED ONCComment on above:Carcinoid tumor of stomach, unspecified whether malignant (Primary Dx)Start: 07-10-2020 End: 31-73-4747Hngkoefkmc hospital visit by [facility]Man[facility] Med Onc 1[facility] LaboratoryComment on above:Carcinoid tumor of stomach, unspecified whether malignant; 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, unspecified whether malignant (Primary Dx)Start: 06-10-2020 End: 27-42-4245Yjommeugqg hospital visit by physicianMan[facility] Med Onc 1MZ MED ONCComment on above:Carcinoid tumor of stomach, unspecified whether malignant (Primary Dx)Start: 05-13-2020 End: 80-94-4521Hphmxsrsqz hospital visit by physicianMan[facility] Med Onc Rm 1MZ MED ONCComment on above:Carcinoid tumor of stomach, unspecified whether malignant (Primary Dx)Start: 04-12-2020 End: 78-46-6680Cnigqzsehx hospital visit by [facility]Man[facility] Med Onc 1MZ MED ONCComment on above:Carcinoid tumor of stomach, unspecified whether malignant (Primary Dx)Start: 04-03-2020 End: 03-16-4935Ubqxojcksg hospital visit by physicianS[facility] Laboratory Comment on above:Carcinoid tumor of stomach, unspecified whether malignantStart: 03-21-2020 End: 45-06-8182Fcyechnbih hospital visit by physician[facility] Card Rehab Ymndm6GELC CARDIAC REHABComment on above:Canceled (Other)Start: 03-11-2020 End: 01-55-7225Ziuvdlfcrg hospital visit by physician[facility] Med Onc 1MZ MED ONCComment on above:Carcinoid tumor of stomach, unspecified whether malignant Start: 02-12-2020 End: 61-74-8954Rmkhkvytce hospital visit by physicianMan[facility] Card Rehab Otvsv6UGQJ CARDIAC REHABComment on above:Canceled (Other)Start: 02-09-2020 End: 21-50-9419Sazoejozxe hospital visit by physicianMan[facility] Med Onc [address] MED ONCComment on above:Carcinoid tumor of stomach, unspecified whether malignant (Primary Dx)Start: 01-15-2020 End: 66-97-3100Ivqvrksepl hospital visit by physicianMan[facility] Card Rehab [id number] CARDIAC REHABComment on above:Canceled (Patient)Start: 01-12-2020 End: 95-56-9657Znordefoib hospital visit by physicianMan[facility] Med Onc 1MZ MED ONCComment on above:Carcinoid tumor of stomach, unspecified whether malignant (Primary Dx)ArrivedStart: 01-01-2020 End: 94-67-0894Auxvilwvoh hospital visit by physicianStefano Banks CARDIAC REHABComment on above:ArrivedStart: 12-18-2019 End: 58-49-6145Sdmmzndcvr hospital visit by physicianStefano Banks CARDIAC REHABComment on above:ArrivedStart: 12-11-2019 End: 65-17-1107Zecxctvgxe hospital visit by physicianStefano PlazaSherrie MED ONCComment on above:Carcinoid tumor of stomach, unspecified whether malignant (Primary Dx) Start: 12-08-2019 End: 82-36-8673Vtxwqdwvej hospital visit by physicianStefano Banks CARDIAC REHABComment on above:ArrivedStart: 11-29-2019 End: 85-24-8508Jqsfilzous hospital visit by physicianStefano Banks CARDIAC REHABComment on above:ArrivedStart: 11-20-2019 End: 30-41-6660Nutggtsoyk hospital visit by physicianStefano Banks CARDIAC REHABComment on above:ArrivedStart: 11-13-2019 End: 79-31-0516Tydxdcjkip hospital visit by physicianStefano PlazaSherrie MED ONCComment on above:Carcinoid tumor of stomach, unspecified whether malignant (Primary Dx) Start: 11-03-2019 End: 43-20-8633Kcvcyhdrkd hospital visit by physicianStefano Banks CARDIAC REHABComment on above:ArrivedStart: 10-20-2019 End: 63-55-9910Pfhmfvwaud hospital visit by physicianLion [facility] Start: 10-17-2019 End: 29-58-2118Oxpbcgxwod hospital visit by physicianfady Card Rehab Jean-Paul CARDIAC REHABComment on above:ArrivedStart: 10-16-2019 End: 31-71-1785Bnzedvlpap hospital visit by physicianfady Med Onc Rm [facility]ALSherrie MED ONCComment on above:Carcinoid tumor of stomach, unspecified whether malignant (Primary Dx)Start: 09-29-2019 End: 45-92-4151Xvadvzrpxt and management of inpatientVirender José Manuel Pino Work Phone: stvz CAR 2Comment on above:Coronary artery disease involving [place] coronary artery of [place] heart without angina pectoris (Pr imary Dx); Uncontrolled type 2 diabetes mellitus with hyperosmolarity without coma, with long-term current useof insulin (HCC); Coronary artery disease, occlusiveStart: 09-28-2019 End: 48-66-2900Qzywphgbl department patient visitPraeli Rodriges Work Phone: [facility] 2E MED SURG TELEMETRYComment on above:Chest pain, unspecified type (Primary Dx); HyperglycemiaStart: 09-28-2019 End: 16-03-5160Gmxbqypdzo [facility] Comment on above:Benign essential HTN; Uncontrolled type 2 diabetes mellitus with hyperosmolarity without coma, with long-term current useof insulin (HCC); Mixed hyperlipidemia; Anemia due to other cause, not classifiedStart: 09-18-2019 End: 31-96-3811Pgrfkzuenr [facility] 1[facility] MED ONCComment on above:Carcinoid tumor of stomach, unspecified whether malignant (Primary Dx)Start: 09-12-2019 End: 55-82-2137Mihfujldpa hospital [facility] physicianS[facility] Comment on above:Carcinoid tumor of stomachStart: 09-04-2019 End: 61-52-7778Acmwvzslai and management of inpatientChcarmina Molina Work Phone: stvz 4C Onc/Med SurgComment on above:Hematoma (Primary Dx); CKD (chronic kidney disease) stage 3, GFR 30-59 ml/min ([facility]); REJI (acute kidney injury) ([facility])Start: 09-03-2019 End: 16-49-1011Cfsxqbcfq department patient visitChcarmina Bria Daniela Work Phone: [facility] EDComment on above:Hematoma (Primary Dx); Closed fracture of fourth thoracic vertebra, unspecified fracture morphology, initial encounter ([facility]); Chronic renal failure, stage 3 (moderate) ([facility]); Acute blood loss anemiaStart: 08-29-2019 End: 20-32-9119Ropqcwggaz [facility] Start: 08-18-2019 End: 09-69-5604Dyozzfxupo [facility]Man[facility] Med [facility] 1MWHZ MED ONCComment on above:Carcinoid tumor of stomach, unspecified whether malignant (Primary Dx)Start: 06-28-2019 End: 50-67-2307Sxdmfxsusq hospital visit by Florence [facility]sonUP[facility]ALSher[facility] Comment on above:Benign essential HTN; CKD (chronic kidney disease) stage 3, GFR 30-59 ml/min (HCC); Mixed hyperlipidemia; Uncontrolled type 2 diabetes mellitus with hyperosmolarity without coma, with long-term current useof insulin (HCC) Procedures DateProcedureProcedure DetailPerforming ClinicianStart: 87-74-4647Iwvscjzpiz exam knee complete 4/more viewsLion Carlson MD Work Phone: start: 07-79-1548Plqxpwgocdmsg metabolic panelAdestee Serna MD Work Phone: Start: 81-01-9356Fkrco metabolic panel calcium total Charles Nowak MD Work Phone: Start: 35-60-8545Odifsol blood reagent stripSyed Brinda Bey MD Work Phone: Start: 50-86-9965Hvn routine ecg w/least 12 lds w/i&r Mak Brinda Bey MD Work Phone: Start: 02-14-2025 End: 73-60-9749Wzzka count hemoglobinSyed Brinda Bey MD Work Phone: Start: 01-61-0883Ikizcvfh screenMohammad Dougie I, DO Work Phone: Start: 79-37-9079Uadcved blood reagent stripSyed Brinda Bey MD Work Phone: Start: 60-84-6908Dkbpk metabolic panel calcium total Zee Gonzales PROCESS OWNER - NUTRITION AIDE Work Phone: Start: 02-13-2025 End: 98-60-9769Fllgkdt blood reagent stripSyed Brinda Bey MD Work Phone: Start: 02-68-6853Tcwtdrb blood reagent stripSyed Brinda Bey MD Work Phone: Start: 02-13-2025 End: 01-01-0530Tomeiepbonh of packed red blood cellsGrey Chacon MD Work Phone: start: 02-13-2025 End: 52-96-6955Aswbo metabolic panel calcium totalSi Bre RICHARDSON Work Phone: Start: 74-50-1326Lgz routine ecg w/least 12 lds i&r onlySyed Brinda Bey MD Work Phone: Start: 34-33-1105Xamvlxcagznx of left ventricular assist deviceSyed Brinda Bey MD Work Phone: Start: 91-78-1451Zbqyeunoathp coronary intervention Mak Brinda Bey MD Work Phone: Start: 21-53-1653GYQWH BANK SPECIMENMosophy Perez MD Work Phone: Start: 14-45-4033Srask typing serologic Freddy Chacon MD Work Phone: start: 02-13-2025 End: 47-21-5323Ddzhslscstohml time partial plasma/whole bloodSyed Brinda Bey MD Work Phone: Start: 63-63-7042Htbknfd blood reagent stripMosophy Perez MD Work Phone: Start: 45-14-3781Ddvzh metabolic panel calcium total Zee Janet PROCESS OWNER - NUTRITION AIDE Work Phone: Start: 02-13-2025 End: 23-43-4634Hhuqiseaoqvtdp time partial plasma/whole bloodSyed Brinda Bey MD Work Phone: Start: 21-38-5980Lgleetx blood reagent Carol Aguilar MD Work Phone: Start: 81-88-3161ZBGKLRCYG ID DOCUMENTTania Aguilar MD Work Phone: Start: 72-09-9133Egjo count misc body fluids w/differential countTania Aguilar MD Work Phone: Start: 98-90-3371Wwd prim src gram/giemsa stain bct fungi/cellTania Aguilar MD Work Phone: Start: 93-48-8899PAT w or wo Gay reece MD Work Phone: Start: 55-75-3730Vllcfwm blood reagent Carol Aguilar MD Work Phone: Start: 56-09-3598Vfgiwqrloogt coronary intervention Jm Bernabe PROCESS OWNER - CLAIMS ADJUSTOR Work Phone: Start: 66-58-0798Ionfzna blood reagent Carol Aguilar MD Work Phone: Start: 02-12-2025 End: 54-82-1262Yujuo metabolic panel calcium totalJessica Janet PROCESS OWNER - NUTRITION AIDE Work Phone: Start: 94-86-2202Xbctvqu blood reagent Carol Aguilar MD Work Phone: Start: 70-77-9664Mjueiykhhslpsu time partial plasma/whole bloodTania Aguilar MD Work Phone: Start: 55-49-7342Njphqpu blood reagent Carol Aguilar MD Work Phone: Start: 22-97-9312Qzjtoza blood reagent Carol Aguilar MD Work Phone: Start: 64-97-8967Vgloojr blood reagent Carol Aguilar MD Work Phone: Start: 73-34-6137Nifrfxv blood reagent Carol Aguilar MD Work Phone: Start: 38-57-0081Omruz metabolic panel calcium total Cynthia Miester PROCESS OWNER - NUTRITION AIDE Work Phone: Start: 97-36-7443Zvbuzgemavriqs time partial plasma/whole bloodTania Aguilar MD Work Phone: Start: 72-93-4789Wfbivlo blood reagent Carol Aguilar MD Work Phone: Start: 98-44-9131Vkgdhpw blood reagent Carol Aguilar MD Work Phone: Start: 69-84-8306Cuczqzq blood reagent stripTania Aguilar MD Work Phone: Start: 94-50-8623Vzsvbumovewnnf time partial plasma/whole bloodTania Aguilar MD Work Phone: Start: 77-66-3249Zuwxzbw blood reagent Carol Aguilar MD Work Phone: Start: 76-49-4614Owq routine ecg w/least 12 lds i&r onlyTania Aguilar MD Work Phone: Start: 34-43-5729Hhfjows blood reagent Carol Aguilar MD Work Phone: Start: 79-65-0932Uzqrnbxavg exam chest single view Cynthiaazar Magana PROCESS OWNER - NUTRITION AIDE Work Phone: Start: 02-10-2025 End: 24-10-2778Swe routine ecg w/least 12 lds i&r onlyAimee Izzy PROCESS OWNER - NUTRITION AIDE Work Phone: Start: 64-60-7051Ukidj of magnesiumJanice Lexy Calfee PROCESS OWNER - CLAIMS ADJUSTOR Work Phone: Start: 75-85-3141OFKAA METABOLIC PANEL W/ REFLEX TO MG FOR LOW KJanice Lexy Calfee PROCESS OWNER - CLAIMS ADJUSTOR Work Phone: Start: 41-28-4220Dwpeh panelJanice Lexy Calfee PROCESS OWNER - CLAIMS ADJUSTOR Work Phone: Start: 33-51-3138VWQL-XA, HEPARINAimee Miester PROCESS OWNER - NUTRITION AIDE Work Phone: Start: 02-09-2025 End: 44-88-3084Vkbnr count complete automatedAimee Miester PROCESS OWNER - NUTRITION AIDE Work Phone: Start: 02-09-2025 End: 72-15-7321Wlmfdpwfql bloodJanannie Preciado PROCESS OWNER - CLAIMS ADJUSTOR Work Phone: Start: 66-46-9193Njryuwvtueipm metabolic panelTrevor Serna MD Work Phone: Start: 49-20-6576Tubkdzg blood reagent stripDaviade Montiel MD Work Phone: Start: 00-09-1386Dscsamav [Moles/volume] in Serum or PlasmaDacandice Montiel MD Work Phone: Start: 44-85-5138SNCNWYLDKH W/GFR POINT OF CAREDaviade Montiel MD Work Phone: Start: 08-29-2024 End: 00-89-2575Ysdo bld gluc mntr dev cleared fda spec home useDavid Angel Montiel MD Work Phone: Start: 19-52-5049Phphfqqwm [Moles/volume] in Serum or PlasmaDacandice Montiel MD Work Phone: Start: 18-63-2711Zmpyam [Moles/volume] in Serum or PlasmaDacandice Montiel MD Work Phone: Start: 06-22-2024 End: 60-03-5101Pwdmsny measurementShady Geris DO Work Phone: Start: 92-85-5944Yrcaywx measurementShady Geris DO Work Phone: Start: 96-64-9102Cgcwjjmnlxfgk metabolic panelShady Geris DO Work Phone: Start: 49-12-5372Zjtsdib measurementShady Geris DO Work Phone: Start: 40-48-9477SLIWBYUNSBYN INPATIENTSboni Miller MD Work Phone: Start: 30-87-1826Lgrbprybvgkyyc time partial plasma/whole bloodEdita Feliciano MD Work Phone: Start: 49-07-9619Kpupxoy measurementShady Geris DO Work Phone: Start: 06-20-1350Csdw transthorc r-t 2d w/wo m-mode rec f-up/lmtdAmaritza Singh MD Work Phone: Start: 40-18-0294Hys trluml coronary stent w/angio one art/Annmarie Barahona MD Work Phone: Start: 37-87-5216Jzjrvjkqipa time activatedGeneric [facility] Work Phone: Start: 82-90-8323Jjoiuwiefxlrg metabolic panelShady Geris DO Work Phone: Start: 81-12-8476Fyuhcdcypgphiv time partial plasma/whole bloodEdita Feliciano MD Work Phone: Start: 40-73-6663Gvkarwjytfjqin time partial plasma/whole bloodEdita Feliciano MD Work Phone: Start: 26-72-7686Izdwrok measurementGeneric [facility] Work Phone: Start: 85-28-0708Rcpne count complete automatedLatisha Ronel Enciso CNP Work Phone: Start: 70-80-4555Jzgmdbf measurementGeneric [facility] Work Phone: Start: 97-71-8642Bmwfrba measurementGeneric [facility] [place] [facility] Work Phone: Start: 03-23-3598Lcnaledxdldqu metabolic panelShady Geris DO Work Phone: Start: 84-77-9856EPYTKBQNVQHP INPATIENTSunil Gwen Fletcher MD Work Phone: Start: 16-68-0061Wcljqnioblevh metabolic panelShady Geris DO Work Phone: Start: 05-60-4644Kigvogvwrsafq metabolic panelShady Geris DO Work Phone: Start: 56-24-2435XRIJOSGVAWPM INPATIENTSboni Miller MD Work Phone: Start: 95-06-4373Opbkmqmowffef metabolic panelShady Geris DO Work Phone: Start: 30-90-1669Ays blood cell morphologyShady Geris DO Work Phone: Start: 07-54-7144LN IR DIALYSIS CATHETER INSERTION TUNNELEDFred Reed Modi MD Work Phone: Start: 95-22-6746IBG w or wo fol wcon,DopplerSunil Gwen Fletcher MD Work Phone: Start: 23-81-8319Mvehfxgloxnbf metabolic panelShady Geris DO Work Phone: Start: 74-14-6918Nu abdomen & pelvis w/o contrast materialShady Geris DO Work Phone: Start: 30-76-2953Cycgitrnsyj timeHussein Maida Palacios DO Work Phone: Start: 09-71-3388Jujtvhvmdbmnt metabolic panelHussein Maida Palacios DO Work Phone: Start: 45-99-6989Omlrdm-up visitFollow-upBRIAN UPtart: 21-40-0631IVNZHRDS LAB SCANPirobi Arevalo MD Work Phone: Start: 75-27-6831Zenlw function panelSboni Miller MD Work Phone: Start: 62-32-6489Jnvrydksiq exam chest 2 viewsGreg Carline Oro MD Work Phone: Start: 98-55-4019Rsockbzwixjvv metabolic panelAbdirizak Oro MD Work Phone: Start: 86-40-3899NLFERZK FASTING?Abdirizak Oro MD Work Phone: Start: 22-76-3086Bnoxlbguavopw metabolic panelTrevor Serna MD Work Phone: Start: 68-35-4836Qssmx function panelSboni Miller MD Work Phone: Start: 93-95-9873Yfnzq albumin quantitativeBilly Aldo RICHARDSON Work Phone: start: 62-76-9306Wnwga metabolic panel calcium total Charles Nowak MD Work Phone: Start: 87-52-8945Qxasr panelBilkimberly Carlson MD Work Phone: start: 41-68-4113Eguoiubddbmly metabolic panelTrevor Serna MD Work Phone: Start: 68-37-3321Ructn metabolic panel calcium total Charles Nowak MD Work Phone: Start: 08-56-2157Fwbdd function panelSboni Miller MD Work Phone: Start: 19-51-4982Ifafmfisac exam chest 2 viewsAbdirizak Oro MD Work Phone: Start: 00-82-1976Dgk routine ecg w/least 12 lds w/i&r Abdirizak Oro MD Work Phone: Start: 03-17-2022 End: 83-40-8188Gxkdmftyoes panelSboni Miller MD Work Phone: Start: 64-53-6414Joeex panelAbdirizak Oro MD Work Phone: Start: 03-17-2022 End: 49-47-4968DJHVRZL FASTING?Abdirizak Oro MD Work Phone: Start: 97-80-4329Tzmcz function panelSboni Miller MD Work Phone: Start: 94-82-8651Xxpbx metabolic panel calcium total Charles Gabriella RICHARDSON Work Phone: Start: 45-38-1786Dhkfi function panelSboni Miller MD Work Phone: [phone]: 60-73-1775Erutbjpvwpyfb metabolic panelTrevor Serna MD Work Phone: Start: 27-63-970007 hydroxy includes fractions if performedSwapna Gabec[facility] Work Phone: Start: 76-89-3645Lsluavr serum plasma/whole blood Gracie Gabeclemmonsaurea Work Phone: Start: 86-08-5539Xpher of magnesiumSwapna Gabeclemmonsaurea Work Phone: Start: 59-83-6043Mifso of parathormoneSwaa Gabeclemmonsaurea Work Phone: Start: 31-82-5830Mnepk of phosphorus inorganicapna Gabec[facility] Work Phone: Start: 26-13-9159Shgis of urea nitrogen quantitative Gracie Gabeclemmonsaurea Work Phone: Start: 93-55-6235Gsxoe metabolic panel calcium total Charles Gabriella Work Phone: Start: 20-93-9161Zkadd count hemoglobinSwapna Pepperna Work Phone: Start: 39-39-7506Lcfrzex totalSwapna Gabeclemmonsna Work Phone: Start: 06-23-9044Inedsnql totalAnant Gabriella Work Phone: Start: 93-91-2347Rcfzgtrbmb other sourceSwaa Gabeclemmonsna Work Phone: [phone]: 17-33-6634Bflqfvalhdb panelSsierra vista regional health centera Gabeclemmonsaurea Work Phone: Start: 60-58-9512Ffeetlqcqe glycosylated f1hHmhrj Gabriella Work Phone: Start: 14-85-6645Dfajtjw total xcpt refractometry urineGracie Miller Work Phone: Start: 94-19-5425Nlgzgaabugzro metabolic panelBilly Back Work Phone: start: 30-32-9035Csveohggkq glycosylated s2gHtypa Back Work Phone: start: 56-55-7780Yqqmi panelBilly Back Work Phone: start: 89-08-4227UXUCAYZ FASTING?Lion Back Work Phone: start: 43-79-5437Nxaqf count complete auto&auto difrntl wbcTrevor Serna Work Phone: Start: 66-49-7694Vvpgbhyqbfjld metabolic panelTrevor Serna Work Phone: Start: 81-14-2236Lbxmr count complete auto&auto difrntl wbcAdestee Serna Work Phone: Start: 79-40-1164Izllxqramsars metabolic panelAdestee Serna Work Phone: Start: 27-38-8241Qhitv count complete auto&auto difrntl wbcTrevor Serna Work Phone: Start: 90-50-6976Bnpmqijhekxoo metabolic panelTrevor Serna Work Phone: Start: 42-28-805728 hydroxy includes fractions if performedGracie Miller Work Phone: Start: 79-00-9565Owkasmz serum plasma/whole blood Gracie Miller Work Phone: Start: 03-03-7487Ohujp of magnesiumSwmaru Miller Work Phone: Start: 66-82-8930Dbhpg of parathormoneSwapna Angela Work Phone: Start: 55-59-4680Qklkh of phosphorus inorganicGracie Miller Work Phone: Start: 24-79-1373Cdial of urea nitrogen quantitative Gracie Miller Work Phone: Start: 42-22-3164Aruwb count hemoglobinGracie Miller Work Phone: Start: 42-90-7438Zbdpxax totalMarcialapaurea Miller Work Phone: Start: 33-94-9499Wzuqxepjtz other sourceSwaa Angela Work Phone: Start: 89-22-3722Znacpmbnfba panelSboni Miller Work Phone: Start: 98-15-7820Ytqzzzm total xcpt refractometry urinemaru Miller Work Phone: Start: 01-80-5605PGNNHFV PHASE IIHpf ScanningStart: 23-63-8885CZSGGOU PHASE IIHpf ScanningStart: 25-30-4962Skjde of urea nitrogen quantitativeGracie Miller Work Phone: Start: 58-19-2472Ufybvhm totalGracie Miller Work Phone: Start: 93-60-6557Ioflqbejrhv panelSboni Miller Work Phone: Start: 55-46-9198Gjknysw blood reagent stripRadha Killian Murphy Work Phone: Start: 65-75-6226Kvrurcx blood reagent stripSuni Murphy Work Phone: Start: 86-51-8372Sutvfttspwjiny time partial plasma/whole bloodShereen Louka Work Phone: Start: 99-31-4794Yecla metabolic panel calcium total Mobasser Reji Work Phone: Start: 47-99-7169Ptbmxbmomarezs time partial plasma/whole bloodSherejose guadalupe Lewis Work Phone: Start: 39-06-3981Zqshgmtrlhzpps time partial plasma/whole bloodJessie Che Work Phone: Start: 94-24-1635Wfnuvvg blood reagent stripSherejose guadalupe Lewis Work Phone: Start: 71-67-1610Loqafln blood reagent stripSalisson Lewis Work Phone: Start: 09-78-1127Cmbmblj blood reagent stripSalisson Lewis Work Phone: Start: 10-06-2019 End: 52-08-3858DOQU LAB REPORTHpf ScanningStart: 78-31-0433GNTOEIMERO CARDIAC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 PROCEDUREElibulmarodamaryjane Aly Work Phone: Start: 38-60-4602Nhudv metabolic panel calcium total Mobasser Rjei Work Phone: Start: 62-37-7860Rizly count platelet automated Mobasser Reji Work Phone: Start: 22-72-7991Gcfeuhhmtagyev time partial plasma/whole bloodVirender K Odette Work Phone: Start: 49-39-2935Htdhedw blood reagent stripVirender K Odette Work Phone: Start: 73-01-4159Mtspatj blood reagent stripVirender K Odette Work Phone: Start: 23-09-1179Refkegr blood reagent stripVirender K Odette Work Phone: Start: 29-76-5169Aagbszg blood reagent stripVirender K Odette Work Phone: Start: 28-51-6749Bdpxl metabolic panel calcium total Mobasser Reji Work Phone: Start: 55-20-8048Htmbfbtwpioifb time partial plasma/whole bloodMobasser Reji Work Phone: Start: 04-30-0795Lamlbxb blood reagent stripVirender K Odette Work Phone: Start: 94-23-2648Txgfabkywcofce time partial plasma/whole bloodVirender K Odette Work Phone: Start: 81-12-3460Ncigxcs blood reagent stripVirender K Odette Work Phone: Start: 00-43-1972Tmwmpcwnoziyjl time partial plasma/whole bloodVirender K Odette Work Phone: Start: 35-18-3217Hnvfirm blood reagent stripVirender K Odette Work Phone: Start: 10-04-2019 End: 48-96-0855Nxzhknf blood reagent stripVirender K Odette Work Phone: Start: 31-80-4396Mhirr metabolic panel calcium total Lovin' Spoonfulser [employer] Work Phone: Start: 93-81-2267Qgemu count platelet automated Tem[employer] Work Phone: Start: 38-34-6705Iypahxtooehlmi time partial plasma/whole bloodMobasser Reji Work Phone: Start: 51-00-1546Rfhohkglbwsgej time partial plasma/whole bloodVirender K Odette Work Phone: Start: 26-73-4765Tlytuib blood reagent stripVirender K Odette Work Phone: Start: 45-99-7157Ykfyezj blood reagent stripVirender K Odette Work Phone: Start: 28-01-4356Azilrymmhikdfp time partial plasma/whole bloodVirender K Odette Work Phone: Start: 42-82-2451Enmsebq blood reagent stripVirender K Odette Work Phone: Start: 08-30-9801Hngbcj scan extracranial art compl bi studyAdam Bria Reynoso Work Phone: Start: 22-49-7770Xct-scan xtr veins complete bilateral studyDaniel Dibardino Work Phone: Start: 12-87-5721Mxd-scan xtr veins unilateral/limited studyZbigniew Reynoso Work Phone: Start: 88-77-7131Lkqne metabolic panel calcium total Mobasser Reji Work Phone: Start: 74-84-0997Xnhveiyetmdacv time partial plasma/whole bloodVirender K Odette Work Phone: Start: 96-69-7248Lvkwidf blood reagent stripVirender K Odette Work Phone: Start: 42-12-9382Deicpaf blood reagent stripVirender K Odette Work Phone: Start: 82-22-9702Jitbfzf blood reagent stripVirender K Odette Work Phone: Start: 30-67-1011Itlvectndgxurl time partial plasma/whole bloodMobasser Reji Work Phone: Start: 10-02-2019 End: 28-99-2087HVNZ LAB REPORTHpf ScanningStart: 00-79-9566AKOKXZUWUR CARDIAC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 PROCEDUREAmedann Che Work Phone: Start: 32-03-0888Oizmpps blood reagent stripVirender K Odette Work Phone: Start: 67-64-1518Prwws metabolic panel calcium total BlasNorthern Inyo Hospitalmood Work Phone: Start: 00-04-9545Qpflb count complete auto&auto difrntl wbcAdnan R Al-Ho Work Phone: Start: 72-47-2930Hlubfftxvbkkyp time partial plasma/whole bloodVirender K Odette Work Phone: Start: 73-69-4456Ibfexchvxsrlea time partial plasma/whole bloodVirender K Odette Work Phone: Start: 54-21-3925Fqcqqvvedmapmx time partial plasma/whole bloodVirender K Odette Work Phone: Start: 57-37-4872Hyqtpmb blood reagent stripVirender K Odette Work Phone: Start: 38-97-9860Xblah metabolic panel calcium total Mobasser Reji Work Phone: Start: 52-27-5554Gacfmvfvrtrvor time partial plasma/whole bloodVirender K Odette Work Phone: Start: 59-46-7288Ostjtun blood reagent stripVirender K Odette Work Phone: Start: 74-52-2769Mmxhzqh blood reagent stripVirender K Odette Work Phone: Start: 82-17-4303Hluvwgjhbb glycosylated s3rYlvfp R Al-Ho Work Phone: Start: 61-15-2439Nbrrdxtcmspltf time partial plasma/whole bloodAdestee R Al-Ho Work Phone: Start: 38-08-4489Fckwjolecntkuq time partial plasma/whole bloodRaza Camilla Work Phone: Start: 42-96-7792Hzadoce blood reagent stripVirender K Odette Work Phone: Start: 42-95-6161Mffbsai blood reagent stripVirender K Odette Work Phone: Start: 84-48-2018Htvqb count complete automatedOwais Lenard Work Phone: Start: 03-25-1636Euqnouoxujsfjr time partial plasma/whole bloodOwais Lenard Work Phone: Start: 29-44-5804Orjnqkp blood reagent stripVirender K Odette Work Phone: Start: 24-06-8475Uefhw of magnesiumDeng Bahena Work Phone: Start: 23-44-5964Vrqjc count complete auto&auto difrntl wbcDeng Bahena Work Phone: Start: 72-21-2405Netwg count complete automatedDeng Bahena Work Phone: Start: 50-93-2465Zghyd panelDeng Bahena Work Phone: Start: 08-70-7213Ojytj of troponin quantitativeDeng Bahena Work Phone: Start: 43-13-7161Oiojrie blood reagent stripVirravi Pino Work Phone: Start: 67-71-9177Ncmhx of troponin quantitativeDeng Bahena Work Phone: Start: 31-16-6976WWPLC OXIMETRY SPOT CHECKDeng Bahena Work Phone: Start: 38-06-3977Hdbr bld gluc mntr dev cleared fda spec home useBilly Back Work Phone: start: 97-06-4309Ymnudxygav spect multiple studiesGreg S The Memorial Hospitaladeola Work Phone: Start: 70-01-1440Fvjp bld gluc mntr dev cleared fda spec home useBilly Back Work Phone: start: 66-80-1967GXETH METABOLIC PANEL W/ REFLEX TO MG FOR LOW KBilly Back Work Phone: start: 76-16-4833Dsvna of troponin quantitativeBilly Back Work Phone: start: 64-41-6391Kess bld gluc mntr dev cleared fda spec home useBilly Back Work Phone: start: 58-18-2774Dygpg of troponin quantitativeBilly Back Work Phone: start: 63-46-4303Hkfa bld gluc mntr dev cleared fda spec home useBilly Back Work Phone: start: 39-27-4811Gdry tthrc r-t 2d w/wom-mode compl spec&colr dBilly Back Work Phone: start: 37-62-8900Tvbbshfrby microscopic onlyPrashant Zahira Work Phone: Start: 12-67-5995Igwom dip stick/tablet rgnt auto w/o microscopyPrashant Zahira Work Phone: Start: 60-36-3233Tdpdc of troponin quantitative [facility] [employer] Work Phone: Start: 09-28-2019 End: 04-32-8251Xoew bld gluc mntr dev cleared fda spec home usePawClinic Work Phone: Start: 33-64-4832Bcovgqklrg exam chest single view [employer] Work Phone: Start: 86-70-3557Nasuh of troponin quantitative [facility] [employer] Work Phone: Start: 80-83-8252Zznhm count complete auto&auto difrntl wbcPawClinic Work Phone: Start: 26-65-5218Kmpefj dgradj products d-dimer quantitativePawClinic Work Phone: Start: 00-44-7070Gkmiapolrhs peptidePraCellARide Work Phone: Start: 69-50-2071Jqbpoejvrtg timePras10-20 [employer] Work Phone: Start: 68-02-3610Qjvztopxpjeffk time partial plasma/whole bloodPawClinic Work Phone: Start: 96-65-5159Oyx routine ecg w/least 12 lds w/i&r [facility] [employer] Work Phone: Start: 54-79-8420WEH REPORTHpf ScanningStart: 85-81-0919Jndfr count complete automatedBilly Back Work Phone: start: 48-89-7619Hwxagwiiypomb metabolic panelBilly Back Work Phone: start: 18-92-2358Yxcdlmnren glycosylated z2kPlhfi Back Work Phone: start: 37-02-6045Whpfq panelBilly Back Work Phone: start: 86-17-2727NMMLCNU FASTING?Lion Back Work Phone: start: 29-48-0631Diopy count hemoglobinMalissa D Delgrosso Work Phone: Start: 74-60-0012Gtxxi count complete auto&auto difrntl wbcMohammad A Al-Nsitalia Work Phone: Start: 37-13-1742Vyizkpaofoaia metabolic panelMohammad A Al-Nsitalia Work Phone: Start: 21-98-8338Rnaos count complete auto&auto difrntl wbcMahmud Al Furgani Work Phone: Start: 52-49-2943Nkhddba blood reagent stripMahmud Al Ektagani Work Phone: Start: 83-18-6497Wrlse metabolic panel calcium total Stacy Hakam Work Phone: Start: 89-03-9403Wfbmj count hemoglobinMalissa D Delgrosso Work Phone: Start: 91-97-4269Vkmdbju blood reagent stripLaila Hakam Work Phone: Start: 05-25-4043Zwulc count hemoglobinMalissa D Delgrosso Work Phone: Start: 77-15-6805Jarlglq blood reagent stripLaila Hakam Work Phone: Start: 50-36-8925Yvowimc blood reagent stripLaila Hakam Work Phone: Start: 43-14-4925Fwkbpayx screenChristina EllisStart: 13-51-6831Shstfjf blood reagent stripLaila Hakam Work Phone: Start: 70-53-0443Osdhj metabolic panel calcium total Amy D Delgrosso Work Phone: Start: 79-08-4178Wpzdc count hemoglobinMalissa D Delgrosso Work Phone: Start: 48-93-9932Ntmpr count hemoglobinMalissa D Delgrosso Work Phone: Start: 48-43-9101Zbdofdx blood reagent stripStacy Vitale Work Phone: Start: 09-38-6364Oyqoa count hemoglobinMalissa D Delgrosso Work Phone: Start: 52-95-2817YFVFDKGFJ RED BLOOD CELLSArmani Figueroa Work Phone: Start: 95-99-7250Mqastwu blood reagent stripStacy Vitale Work Phone: Start: 09-07-2019 End: 46-68-4937Pydjpim blood reagent stripStacy Vitale Work Phone: Start: 42-21-5568FNOJM METABOLIC PANEL W/ REFLEX TO MG FOR LOW KStanley J Orlop Work Phone: Start: 88-62-0966Uychw count complete auto&auto difrntl wbcStanley J Orlop Work Phone: Start: 69-77-9232Tvojq count hemoglobinMalissa D Delgrosso Work Phone: Start: 19-82-1577Tyidxvh blood reagent stripStacy Vitale Work Phone: Start: 51-37-2339Ivybd count hemoglobinMalissa D Delgrosso Work Phone: Start: 93-77-4653Yttkgki blood reagent stripStanley J Orlop Work Phone: Start: 89-97-1628Tajvgmf blood reagent stripStanley J Orlop Work Phone: Start: 98-31-6489Oxqyeir blood reagent stripStanley J Orlop Work Phone: Start: 37-92-8469QFTGZ METABOLIC PANEL W/ REFLEX TO MG FOR LOW KStanley J Orlop Work Phone: Start: 79-98-3140Hvjvc count complete auto&auto difrntl wbcStanley J Orlop Work Phone: Start: 77-46-5301Oeeaz count hemoglobinMalissa D Delgrosso Work Phone: Start: 16-84-5783Iupxgfa blood reagent stripStanley J Orlop Work Phone: Start: 56-98-1373Riugqgm blood reagent stripStanley J Orlop Work Phone: Start: 20-93-2460Ksbxs count hemoglobinMalissa D Delgrosso Work Phone: Start: 53-67-1538MUZTK METABOLIC PANEL W/ REFLEX TO MG FOR LOW KStanley J Orlop Work Phone: Start: 50-04-2008Gbgspso blood reagent stripStanley J Orlop Work Phone: Start: 19-65-2561Dlhpfor blood reagent stripStanley J Orlop Work Phone: Start: 76-43-6371Xwabz of ferritinTequila Mota Work Phone: Start: 47-52-4655KNIEL METABOLIC PANEL W/ REFLEX TO MG FOR LOW KLinda Bria Mota Work Phone: Start: 04-40-8298Ucwfr count complete automatedTequila Mota Work Phone: Start: 17-70-5411Lfdo binding capacityTequila Mota Work Phone: Start: 12-52-4745Enwzkmntahx timeTequila Mota Work Phone: Start: 55-91-4851Ufrpo count hemoglobinStanley J Orlop Work Phone: Start: 23-60-7324Olddmoi blood reagent stripStanley J Orlop Work Phone: Start: 07-61-8293Pptxprm blood reagent stripStanley J Orlop Work Phone: Start: 08-56-4918Hrla screen class list aChristina Saad Molina Work Phone: Start: 80-89-6327Vnaxnxqihl microscopic onlyChristina R Molina Work Phone: Start: 84-85-3007Uwhcb dip stick/tablet rgnt auto w/o microscopyChristina R Molina Work Phone: Start: 60-80-0007Ngicr count hemoglobinStanley J Orlop Work Phone: Start: 07-38-2735Ogwzwce blood reagent stripStanley J Orlop Work Phone: Start: 03-38-5286Gwuzbsh blood reagent stripStanley J Orlop Work Phone: Start: 96-79-4788Gijxuwp blood reagent stripStanley J Orlop Work Phone: Start: 00-23-1450Aokbp count hemoglobinMalissa D Delgrosso Work Phone: Start: 44-98-0800Epmgfsvd aggregation in vitro each agentChino Muller Work Phone: Start: 51-33-6108Ioltx typing serologic aboChristina R Jesse Work Phone: Start: 92-02-4863WSLQME PANELChrisace R Jesse Work Phone: Start: 39-31-3616EWZA/MYOGLOBINChristina R Molina Work Phone: Start: 18-11-8909Vzlcprua screenChrisace Burristart: 99-02-6655Gzlcw typing serologic Noemy Suarez Work Phone: Start: 85-21-7892Etvns count complete automated Mami Suarez Work Phone: Start: 66-64-6677Dd thoracic spine w/o contrast materialChcarmina Suarez Work Phone: Start: 24-61-8242Kb thorax w/o contrast material Mami Suarez Work Phone: Start: 22-96-8048Xndddse [Moles/Vol]Mami Suarez Work Phone: Start: 36-31-7154Owwsq count complete auto&auto difrntl wbcChcarmina Suarez Work Phone: Start: 14-98-7121Xflelyksxqi timeChcarmina Suarez Work Phone: Start: 34-14-1694Vwffeuljjocdqq time partial plasma/whole bloodChcarmina Suarez Work Phone: Start: 69-47-005014 hydroxy includes fractions if performedSwapaurea Miller Work Phone: Start: 52-10-5513Wxfvlpv serum plasma/whole blood Gracie CloudTrantabatha Work Phone: Start: 84-58-4868Pnwsc of magnesiumSwaurea CloudTrantabtaha Work Phone: Start: 31-00-4827Ntukd of parathormoneSwaa Angela Work Phone: Start: 63-77-5440Hqayx of phosphorus inorganicFremont Hospitalaurea CloudTrantabatha Work Phone: Start: 20-07-4884Eqlvn of urea nitrogen quantitative Gracie Angela Work Phone: Start: 22-79-0042Fnrfliz totalOnline-ORaurea CloudTrantabatha Work Phone: Start: 72-36-5961Rfdowzispvp panelSwaa Angela Work Phone: Start: 06-25-1595Caxfsyxvqzvih metabolic panelBilly Back Work Phone: start: 77-69-5876Epoexunsqu glycosylated v9vNmner Back Work Phone: start: 77-60-8724Lcoen panelBilly Back Work Phone: start: 78-54-8599Pxlepvyblaq direct measurement ldl cholesterolBilly Back Work Phone: start: 01-00-9415SIXSXPH FASTING?Lion Back Work Phone: start: 59-94-8079Jwelhwhcvrgq [Mass/volume] in Urine by Test stripBrian Arevalo MD Work Phone: Plan of Treatment DateCare ActivityDetailAuthorStart: 83-99-5138Ocydcfakbwne Vaccine: Ped or At- Risk (3 of 3 - PPSV23 or PCV20)Pneumococcal Vaccine: Ped or At-Risk (3 of 3 - PPSV23 or PCV20)[facility]HealthStart: 66-26-5858Nceeugatch screening using PHQ-9 (Patient Health Questionnaire 9) scoreDepression Screening/Follow-Up (PHQ-2/9) [facility]HealthStart: 07-29-2026 End: 28-46-2165FxfkiwvbquqwciegIvkwwmwsfzdmjn complete Echocardiography Routine S/P TAVR (transcatheter aortic valve replacement) Expected: 07/29/2026, Expires: 12/13/2026OhioHealthComment on above:Expected: 07/29/2026, Expires: 12/13/2026 Start: 90-68-0272vJLX DiabeteseGFR DiabetesOhioHealthStart: 24-50-7529jWKR DiabeteseGFR DiabetesInioHealthStart: 92-04-7715Yqdzkrbmaj ScreenDepression ScreenBon [facility] HospitalStart: 74-30-5546Mrbynpvbzd A1c viidbzrtjkcY8L [facility]Start: 11-06-2025 End: 86-73-1222Scjqrai encounter lbbxakixd53/23/2025 1:30 PM EST Office [facility] [address] [place] [address], 3rd floor [place] [address] Melba Singh MD [address] [place] [address] [facility] PhysiciansStart: 10-31-2025 End: 37-62-1882Eherukd encounter procedureKINDRED [facility] Part of Danbury HospitalComment on above:follow up labsStart: 10-26-2025 End: 78-24-7275CnugtdusnrqsxbwdLovhajmsmmcppu complete Echocardiography Routine S/P TAVR (transcatheter aortic valve replacement) Expected: 10/26/2025, Expires: 11/26/2026[facility] Work Phone: Comment on above:Expected: 10/26/2025, Expires: 11/26/2026Start: 10-01-2025 End: 90-80-4232Aqtcnst encounter procedureMerAllendale County HospitalComformerly [facility] on above:AWVStart: 09-26-2025 End: 20-41-0388Ledovhoelk vthhzraifsal23/12/2025 11:01 AM EST Anesthesia Event [facility] [address] [place] [address] Nacho Pierce MD [address] [place] [address] [facility] LabStart: 09-26-2025 End: 56-93-5856Rimzrtjtdx and management of zsxofffyn19/12/2025 11:01 AM EST - 09/26/2025 12:02 PM EST Surgery [facility] [address] [place] [address] Melba Singh MD [address] [place] [address] Transcatheter Aortic Valve ReplacementC[facility] Comment on above:Transcatheter Aortic Valve ReplacementStart: 09-17-2025 End: 10-56-1791Ezlmbdj encounter oweqgohch20/03/2025 2:30 PM EST Office Visit [address] [address] Lion Carlson MD [address] [place] [address] AWVMLTAC, located within [facility]Comformerly [facility] on above:AWV Start: 09-11-2025 End: 66-18-4682Seatyyo encounter lcyrsdzku67/28/2025 10:00 AM EDT Office Visit [facility] [address] [place] [address] [address] [place] [address] Charles Nowak MD [address] [facility] [address] [place] [address] Return in about 3 months (around 09/07/2025).[facility] EndoComformerly [facility] on above:Return in about 3 months (around 09/07/2025).Start: 08-30-2025 End: 48-46-0068Epsggzv encounter gasmuycxu02/16/2025 10:30 AM EDT Office Visit [facility] [address] [facility], [place] Lion Carlson MD [address] [place] [address] Return in about 6 months (around 08/29/2025).[facility] on above:Return in about 6 months (around 08/29/2025).Start: 81-55-7087Ukbcjb Wellness Visit (Medicare)Annual Wellness Visit (Medicare)[facility]: 46-06-0679Pdjecadbxx Screen Depression ScreenBon [facility]: 08-27-2025 End: 41-14-0853Idmglvb encounter balnmkfmp67/13/2025 2:00 PM EDT Appointment [facility] [address] [place], [place] [id number] KX after 26 session, BSMTHZ Cardiac RehabComment on above:KX after 26 session, BSStart: 08-22-2025 End: 73-28-4477Pbfprwd encounter biaxiscuo95/08/2025 2:00 PM EDT Appointment [facility] [address] [place] [address] KX after 26 session, BSMTHZ Cardiac RehabComment on above:KX after 26 session, BSStart: 08-20-2025 End: 60-64-8325Zitrzvl encounter cuztkshpl84/06/2025 2:00 PM EDT Appointment [facility] [address] [place] [address] KX after 26 session, BSMTHZ Cardiac RehabComment on above:KX after 26 session, BSStart: 08-15-2025 End: 96-99-5581Lozcoim encounter sngdtyocj98/01/2025 2:00 PM EDT Appointment [facility] [address] [place] [address] KX after 26 session, BSMTHZ Cardiac RehabComment on above:KX after 26 session, BSStart: 08-14-2025 End: 17-01-0213Djhscmt encounter felzqvtli03/30/2025 1:00 PM EDT Appointment [facility] [address] [place] [address] SandostatinMWHZ MED ONCComment on above:SandostatinStart: 08-13-2025 End: 83-21-5049Pwnpllz encounter yoxmbaqvy04/29/2025 2:00 PM EDT Appointment [facility] Card[facility] Re[facility] [address] [place] [address] KX after 26 session, BSMTHZ Cardiac RehabComment on above:KX after 26 session, BSStart: 08-08-2025 End: 36-27-0902Meiawmm encounter uqapfpsgt61/24/2025 2:00 PM EDT Appointment [facility] Card[facility] [address] [place] [address] KX after 26 session, BSMTHZ Cardiac RehabComment on above:KX after 26 session, BSStart: 08-06-2025 End: 68-41-5488Rdmvyus encounter rbenoajbx54/22/2025 2:00 PM EDT Appointment [facility] Card[facility] Rehab [address] [place] [address] KX after 26 session, BSMTHZ Cardiac RehabComment on above:KX after 26 session, BSStart: 08-01-2025 End: 47-90-0206Vvttitu encounter rhswsdmwi12/17/2025 2:00 PM EDT Appointment [facility] [address] [place] [address] KX after 26 session, BSMTHZ Cardiac RehabComment on above:KX after 26 session, BSStart: 07-30-2025 End: 16-19-4708Tlzejui encounter eczybqedh85/15/2025 2:00 PM EDT Appointment [facility] [address] [place] [address] KX after 26 session, BSMTHZ Cardiac RehabComment on above:KX after 26 session, BSStart: 07-25-2025 End: 61-91-7694Hqjhzat encounter sbsreojee54/10/2025 2:00 PM EDT Appointment [facility] Card[facility] [address] [place] [address] KX after 26 session, BSMTHZ Cardiac RehabComment on above:KX after 26 session, BSStart: 07-23-2025 End: 68-69-7719Wsknruf encounter /08/2025 2:00 PM EDT Appointment [facility] [address] [place] [address] KX after 26 session, BSMTHZ Cardiac RehabComment on above:KX after 26 session, BSStart: 07-18-2025 End: 32-94-8538Uuabqhe encounter bkrrafupi86/03/2025 2:00 PM EDT Appointment [facility] [address] [place] [address] KX after 26 session, BSMTHZ Cardiac RehabComment on above:KX after 26 session, BSStart: 93-81-6656KXYAK-19 Vaccine ( season)COVID-19 Vaccine ( season)[facility]HealthStart: 92-82-6228ZAMOV-19 Vaccine ( season)COVID-19 Vaccine ( season)[facility]Start: 63-60-3584Bqhrptvjr vaccinationInfluenza Vaccine (#1)[facility]HealthStart: 07-16-2025 End: 85-13-1136Wosonbz encounter sflexpuwv80/01/2025 2:00 PM EDT Appointment [facility] Card[facility] Re[facility] [address] [place] [address] KX after 26 session, BSMTHZ Cardiac RehabComment on above:KX after 26 session, BSStart: 07-12-2025 End: 62-27-9486Orgkphc encounter cnlxekhad49/28/2025 12:00 PM EDT Appointment [facility] [address] [place] [address] SandostatinMWHZ MED ONCComment on above:SandostatinStart: 07-11-2025 End: 17-39-6808Xkwrwmp encounter holshihpn72/27/2025 2:00 PM EDT Appointment [facility] Card[facility] [address] [facility] [place] [address] KX after 26 session, BSMTHZ Cardiac RehabComment on above:KX after 26 session, BSStart: 07-09-2025 End: 97-55-8958Ecdszoq encounter tmfdzhwep02/25/2025 2:00 PM EDT Appointment [facility] [address] [facility] [place] [address] KX after 26 session, BSMTHZ Cardiac RehabComment on above:KX after 26 session, BSStart: 07-04-2025 End: 43-96-0022Vdqirqh encounter sydaivjbf97/20/2025 2:00 PM EDT Appointment [facility] [address] [place] [address] KX after 26 session, BSMTHZ Cardiac RehabComment on above:KX after 26 session, BSStart: 07-02-2025 End: 75-74-3401Msxqpkp encounter gfqdbxozt35/18/2025 2:00 PM EDT Appointment [facility] Card[facility] Re[facility] [address] [facility] [place] [address] KX after 26 session, BSMTHZ Cardiac RehabComment on above:KX after 26 session, BSStart: 06-27-2025 End: 35-25-1537Clwwlzk encounter /13/2025 2:00 PM EDT Appointment [facility] [address] [place] [address], [place] [address] KX after 26 session, BSMTHZ Cardiac RehabComment on above:KX after 26 session, BSStart: 06-25-2025 End: 04-85-7752Qwavido encounter fpmtlzmih44/11/2025 2:00 PM EDT Appointment [facility] [address] [place] [address], [place] [address] KX after 26 session, BSMTHZ Cardiac RehabComment on above:KX after 26 session, BSStart: 06-20-2025 End: 52-67-9701Syraxvw encounter yfdifmirw74/06/2025 2:00 PM EDT Appointment [facility] Card[facility] [address] [place] [address] KX after 26 session, BSMTHZ Cardiac RehabComment on above:KX after 26 session, BSStart: 06-18-2025 End: 06-96-4627Fqrtldz encounter quhfltbfb50/04/2025 2:00 PM EDT Appointment [facility] Card[facility] Re[facility] [address] [place] [address] KX after 26 session, BSMTHZ Cardiac RehabComment on above:KX after 26 session, BSStart: 55-31-1087Bdpnntqdf vaccinationFlu vaccine (#1)[facility] HospitalStart: 06-13-2025 End: 80-48-5903Kbjgnkp encounter lhkgbjryf97/30/2025 2:00 PM EDT Appointment [facility] Card[facility] Re[facility] [address] [place] [address] KX after 26 session, BSMTHZ Cardiac RehabComment on above:KX after 26 session, BSStart: 06-11-2025 End: 26-70-5816Nqlkahr encounter dbyhoxzqb22/28/2025 2:00 PM EDT Appointment [facility] [address] [place] [address] KX after 26 session, BSMTHZ Cardiac RehabComment on above:KX after 26 session, BSStart: 06-07-2025 End: 09-34-6579Nfsetje encounter ojodhdvfb24/24/2025 11:15 AM EDT Office Visit [facility] [address] [place] [address] [place] [address] Charles Nowak MD [address] [facility] [address] [place] [address] 3 monthHenry [facility] Hospital EndoComment on above:3 monthStart: 06-06-2025 End: 98-24-7602Uqwcggs encounter yznwlaugs42/23/2025 2:00 PM EDT Appointment [facility] Cardiac Rehab [address] [place] [address] KX after 26 session, BSMTHZ Cardiac RehabComment on above:KX after 26 session, BSStart: 06-04-2025 End: 80-91-6252Piowmhw encounter jfjlukefc75/21/2025 2:00 PM EDT Appointment [facility] [address] [place] [address] KX after 26 session, BSMTHZ Cardiac RehabComment on above:KX after 26 session, BSStart: 06-01-2025 End: 92-46-9944Ojeeezf encounter /18/2025 11:00 AM EDT Office Visit [facility] [place] [address], [address] [place], [place] [id number] Mak Bey MD [address] [place] [address] 3mTotrihealth [facility] ValdeseComment on above:3mStart: 05-30-2025 End: 54-87-4415Iyxpyyw encounter rmrkulzhy18/16/2025 2:00 PM EDT Appointment [facility] Cardiac Rehab [address] [place] [address] KX after 26 session, BSMTHZ Cardiac RehabComment on above:KX after 26 session, BSStart: 05-28-2025 End: 48-61-8127Dbwhwsy encounter procedureMTHZ Cardiac RehabComment on above:KX after 26 session, BSSandostatinStart: 05-23-2025 End: 44-35-5483Rmrqabi encounter njmmouqez39/09/2025 2:00 PM EDT Appointment [facility] [address] [place] [address] KX after 26 session, BSMTHZ Cardiac RehabComment on above:KX after 26 session, BSStart: 05-21-2025 End: 70-38-7293Eeycpal encounter oywbqkgkx14/07/2025 2:00 PM EDT Appointment [facility] [address] [place] [address] KX after 26 session, BSMTHZ Cardiac RehabComment on above:KX after 26 session, BSStart: 05-16-2025 End: 09-79-4385Zvehgjz encounter /02/2025 2:00 PM EDT Appointment [facility] Card[facility] Re[facility] [address] [facility] [place] [address] KX after 26 session, BSMTHZ Cardiac RehabComment on above:KX after 26 session, BSStart: 05-14-2025 End: 14-73-6897Gtxgnwm encounter nhzlavepr88/30/2025 2:00 PM EDT Appointment [facility] [address] [facility] [place] [address] KX after 26 session, BSMTHZ Cardiac RehabComment on above:KX after 26 session, BSStart: 05-09-2025 End: 99-95-2875Igcubdh encounter omsmwvdoo90/25/2025 2:00 PM EDT Appointment [facility] Card[facility] Re[facility] [address] [facility] [place] [address] KX after 26 session, BSMTHZ Cardiac RehabComment on above:KX after 26 session, BSStart: 05-07-2025 End: 20-50-1290Lvrzfwg encounter vnkyizsof84/23/2025 2:00 PM EDT Appointment [facility] Card[facility] Re[facility] [address] [facility] [place] [address] KX after 26 session, BSMTHZ Cardiac RehabComment on above:KX after 26 session, BSStart: 05-03-2025 End: 12-55-4033Dydrumk encounter ckjswyckb59/19/2025 1:00 PM EDT Appointment [facility] Card[facility] Rehab [address] [facility] [place] [address] KX after 26 session, BSMTHZ Cardiac RehabComment on above:KX after 26 session, BSStart: 05-02-2025 End: 03-05-5784Xxjjoqy encounter ucxgthsnm64/18/2025 2:00 PM EDT Appointment [facility] Cardiac Rehab [address] [facility] [place] [address] KX after 26 session, BSMTHZ Cardiac RehabComment on above:KX after 26 session, BSStart: 04-30-2025 End: 67-85-1804Dqmliwa encounter petbrrfoc21/16/2025 2:00 PM EDT [facility] [address] [place] [address] KX after 26 session, BSMTHZ Cardiac RehabComment on above:KX after 26 session, BSStart: 04-25-2025 End: 90-22-6971Flozlfe encounter procedureKINDRED [facility] Part of Danbury HospitalComment on above:-neuroendocrine tumorKX after 26 session, BSSandostatinStart: 04-23-2025 End: 83-39-2489Vkajojv encounter qrpntexds37/09/2025 2:00 PM EDT Appointment [facility] Cardiac Rehab [address] [place] [address] KX after 26 session, BSMTHZ Cardiac RehabComment on above:KX after 26 session, BSStart: 04-19-2025 End: 60-62-3660Tqbpavp encounter euztbvupb76/05/2025 1:00 PM EDT Appointment [facility] [address] [place] [address] SandostatinMWHZ MED ONCComment on above:SandostatinStart: 04-18-2025 End: 89-29-9790Mxxhvxe encounter nfmhszqyu15/04/2025 2:00 PM EDT Appointment [facility] Cardiac Rehab [address] [place] [address] KX after 26 session, BSMTHZ Cardiac RehabComment on above:KX after 26 session, BSStart: 04-16-2025 End: 36-82-3494Suulvsr encounter xhkeakrbx22/02/2025 2:00 PM EDT Appointment [facility] Cardiac Rehab [address] [place] [address] KX after 26 session, BSMTHZ Cardiac RehabComment on above:KX after 26 session, BSStart: 04-03-2025 End: 68-03-1669Efqkjcu encounter mcfqyswfx78/20/2025 12:30 PM EDT Appointment [facility] Cardiac Rehab [address] [place] [address] NEEDS RECURRING ACCOUNT AND STICKERSMTHZ Cardiac RehabComment on above:NEEDS RECURRING ACCOUNT AND STICKERSStart: 03-22-2025 End: 33-87-1086Jjcdggd encounter mdxqlgzik56/08/2025 1:00 PM EDT Appointment [facility] [address] [facility] [place] [address] SandostatinMWHZ MED ONCComment on above:SandostatinStart: 03-21-2025 End: 20-11-2754Maifirc encounter /07/2025 10:30 AM EDT Office Visit [facility] [address] [facility] [place] [address] Abdirizak Oro MD [address] [place] [address] 6 month f/u lab/ekgMercy Cardiology SpecialistComment on above:6 month f/u lab/ekgStart: 63-33-0365Abeudoiben MonitoringDepression MonitoringBON SECOURS OHIOHEALTH GR[facility] HOSPITALStart: 03-08-2025 End: 48-77-9183Glotxwf encounter xuxrtpjud04/24/2025 11:00 AM EDT Office Visit [facility] [address] [place] [address] [address] [place] [address] Charles Nowak MD [address] [facility] [address] [place] [address] 3 monthOhiohealth O'Bleness Hospitalain EndoComment on above:3 monthStart: 03-01-2025 End: 72-13-4569Kvvceze encounter xlgkvkkuc18/17/2025 2:45 PM EDT Office Visit [facility] [place] [address] [facility], [address] [place] [address] Radha Hernandez, PROCESS OWNER - CLAIMS ADJUSTOR [address] [facility] [address] [place] [address] stent hosp f/u [facility] - StocktonComment on above:stent hosp f/uStart: 02-27-2025 End: 61-25-3294Jlegddc encounter procedureMerAllendale County HospitalComment on above:6 mo6 mo- A1c6 mo- A1c- richard for nov needs R/sStart: 02-07-2025 End: 12-05-0964Vvdwkfp encounter izhrofgpq79/26/2025 12:00 PM EDT Appointment [facility] [address] [place] [address] SandostatinMWHZ MED ONCComment on above:SandostatinStart: 01-10-2025 End: 08-69-2727Punauhb encounter xsobxnlqv08/26/2025 11:00 AM EST Appointment [facility] [address] [place] [address] SandostatinMWHZ MED ONCComment on above:SandostatinStart: 12-11-2024 End: 80-15-6639Dsukvmv encounter xkzjkfnyz70/27/2025 1:00 PM EST Appointment [facility] [address] [place] [place] [address] SandostatinMWHZ MED ONCComment on above:SandostatinStart: 12-01-2024 End: 32-53-2259Azjfhgh encounter procedureOhiohealth O'Bleness Hospitalain EndoComment on above:3 monthsStart: 11-17-2024 End: 74-05-3433Bqmcdbe encounter epeoapfxt18/03/2025 10:30 AM EST Office Visit [facility] [place] [address] [address] [address] [place] [address] Nacho Montiel MD [address] [address] [address] [place] [address] folllow-up to evaluate fistulaMagruder Hospital Heart and Vascular InstituteComment on above: folllow-up to evaluate fistulaStart: 11-13-2024 End: 91-98-0293Alldgnm encounter qeirixezu56/30/2024 1:00 PM EST Appointment [facility] [address] [place] [address] SandostatinMWHZ MED ONCComment on above:SandostatinStart: 10-27-2024 End: 94-45-1483Vbidmfr encounter qtniqovml42/13/2024 1:15 PM EST [facility] [address] [place] [address] Charles Nowak MD [address] [place] [address] 3 [facility] EndoComment on above:3 months Start: 10-25-2024 End: 35-12-3673Lfiflxf encounter agjtcrpsc08/11/2024 3:15 PM EST Office Visit [facility] Part of [address] [address] Trevor Serna MD [address] [place] [address] -neuroendocrine tumorK[facility]ED [facility] Part of Danbury HospitalComment on above:-neuroendocrine tumorStart: 10-23-2024 End: 97-13-2281Jokyxsl encounter xucwwvnhz65/09/2024 1:15 PM EST Procedure visit [facility] [address] [place] [address] Nacho Montiel MD [address] [address] [address] [place], [place] [address] CVC REMOVAL juggular cathSt. Andres Heart and VascularComment on above:CVC REMOVAL juggular cathStart: 10-20-2024 End: 47-80-8516Ewksjwb encounter fnuamitdz51/06/2024 1:00 PM EST Appointment [facility] Non-Invasive Cardiology [address] [place] [address] Abdirizak Oro MD [address] [place] [address] epic/spouse/ladonnaMercy Ecu Health Chowan Hospitalard Non-Invasive CardiologyComment on above:epic/spouse/ladonnaStart: 09-28-2024 End: 74-68-7944Ehjkkpd encounter obgreoomq36/14/2024 2:00 PM EST Office Visit [facility] [address] [place] [address] Lino Carlson MD [address] [place] [address] 6 moMercMUSC Health Lancaster Medical CenterComformerly [facility] on above:6 moStart: 09-20-2024 End: 43-19-8569Rqioena encounter erbyalacy74/06/2024 8:30 AM EST Office Visit [facility] In[facility] Buffer [address] [place] [address] Abdirizak Oro MD [address] [place] [address] f/u appt stenting Dr. Singh @ [facility]--pt hasn't been doing cardiac rehab--has been doing diaylsis 3 x week [facility] Cardiology SpecialistComment on above:f/u appt stenting Dr. Singh @ [facility]--pt hasn't been doing cardiac rehab--has been doing diaylsis 3 x week Start: 09-04-2024 End: 09-10-3490Vwzzxms encounter vuezvjemn78/21/2024 1:00 PM EDT Appointment [facility] [address] [place] [address] SandostatinMWHZ MED ONCComment on above:SandostatinStart: 08-28-2024 End: 12-60-0329Ttajdju encounter /14/2024 2:15 PM EDT Office Visit [facility] [address] [place] [address] Lion Carlson MD [address] [place] [address] AWCommunity Memorial HospitalComformerly [facility] on above:AWV Start: 94-48-0678Oxdeljcslr A1c cdpvszhvoycJ9FGnszWyhsxtPasvt: 07-27-2024 End: 08-98-5962Gakcfev encounter hoixyerpt22/12/2024 1:45 PM EDT Office Visit [facility] [address] [place] [address] Charles Nowak MD [address] [place] [address] 3 monthHenry County Hospital EndoComment on above:3 monthStart: 80-05-8867ROFTT-19 Vaccine ( season)COVID-19 Vaccine ( season)Bon [facility] HospitalStart: 98-29-3091KLUDB-19 Vaccine ()COVID-19 Vaccine ( season)Bon [facility] HospitalStart: 10-16-5856Xftrbtyyk vaccinationOhioHealthStart: 07-05-2024 End: 98-22-4734Rmqvteg encounter /21/2024 1:00 PM EDT Appointment [facility] OP Nursing [address] [place] [address] GdfjvlxdajjMYMP OP NursingComment on above:SandostatinStart: 06-22-2024 End: 22-89-7214Cpiwfqt encounter aipnjeczh48/08/2024 12:00 PM EDT Office Visit [facility] [address] [place] [address] Abdirizak Oro MD [address] [place] [address] 6 week follow up after possibly starting dialysisHolzer [facility] Cardiology SpecialistComment on above:6 week follow up after possibly starting dialysisStart: 79-72-0869Fcefejqel vaccinationCARILION STONEWALL JACKSON HOSPITALStart: 05-22-2024 End: 75-74-4596Obuqgdf encounter gepgsdjiy87/08/2024 11:45 AM EDT Office Visit [facility] [address] [facility] Building, 5th [place] [address] Brian Arevalo MD [facility] [address] [facility] [place] [address]th [place] [address] [facility] Surgical SpecialistsStart: 81-76-1451Tujwmrocoi hospital visit by hkmawhdpv62/05/2024 Hospital Encounter [facility] [address] [place] [phone] Brian Arevalo MD [address] [facility] [place] [address]th [place] [address] [facility] PeriopStart: 2024 End: 71-04-3467Ngufvceah to xbgaqqpclewqp02/28/2024 8:30 AM EDT Clinical Support [facility] Preadmission Testing [address] [place] [address] Brian Arevalo MD [address] [facility] [place] [address] [place] [address] Discharge Disposition: Home [facility] Preadmission TestingStart: 05-11-2024 End: 50-17-8993Utoguhw encounter cworjcizp11/27/2024 2:00 PM EDT Appointment [facility] MED ONC [address] [place] [address] SandostatinMWHZ MED ONCComment on above:SandostatinStart: 04-26-2024 End: 73-75-3940Vgvnnkk encounter viwiouglv61/12/2024 11:30 AM EDT Office Visit [facility] [address] [place] [address] Charles Nowak MD [address] [place] [address] 3 [facility] EndoComment on above:3 monthStart: 04-17-2024 End: 33-11-4943Bhdkpio encounter aeyqipnnj38/03/2024 1:15 PM EDT Office Visit [facility] [address] Medical OfficeBuilding, 5th [place] [address] Brian Arevalo MD [address] [facility] [place] [place] [address] [facility] Surgical SpecialistsStart: 04-03-2024 End: 77-17-8336Wspewgf encounter cniisxdyk12/20/2024 2:00 PM EDT Appointment [facility] MED ONC [address] [place] [address] SandostatinMWHZ MED ONCComment on above:SandostatinStart: 03-27-2024 End: 77-72-3061Opvarjm encounter uushkbwdp02/13/2024 1:45 PM EDT Office Visit [facility] [address] [facility] Medical OfficeBuilding, 5th [place] [address] Gracie Miller MD [address] [place] [address] Brian Arevalo MD [address] [facility]jac[facility] [address] [facility] [address] [place] [address] [facility] Surgical SpecialistsStart: 03-22-2024 End: 01-14-7016Sdmeizq encounter procedureKIN[facility]ED [facility] Part of Danbury HospitalComment on above:neuroendocrine tumorStart: 03-20-2024 End: 80-80-9957Kostgoe encounter procedureHolzer Medical Center [facility] Cardiology SpecialistComment on above:1 year follow up labs ekg cxrStart: 03-17-2024 End: 50-07-8971Nvjgzhp encounter /03/2024 2:15 PM EDT Office Visit [address] [phone] Lion Carlson MD [address] [place] [address] 6 m check up- Colon CA ScreeningUnityPoint Health-KeokukComformerly [facility] on above:6 m check up- Colon CA ScreeningStart: 03-03-2024 End: 60-96-1173Zuqeihy encounter wuawsqstf40/19/2024 1:15 PM EDT Office Visit [address] [address] Lion Carlson MD [address] [place] [address] 6 m check up- Schedule AWV- Colon CA ScreeningMer Primary Care of MontgomeryComformerly [facility] on above:6 m check up- Schedule AWV- Colon CA ScreeningStart: 85-01-5384Naaieeuwoc ScreenDepression ScreenBON GALION HOSPITALStart: 01-24-2024 End: 65-18-5376Buwatov encounter zpvmmmcfa54/11/2024 11:45 AM EDT Office Visit [facility] Endo [address] [place] [address] Charles Nowak MD [address] [place] [address] F/U DM,r/s from no show appt on 10/22/2023 w/ptMKettering Memorial Hospital EndoComment on above:F/U DM,r/s from no show appt on 10/22/2023 w/ptStart: 01-03-2024 End: 79-38-5026Cfxcozi encounter ncocwmydl04/19/2024 1:00 PM EST Appointment [facility] ON[facility] [address] [place] [address] SandostatinMWHZ MED ONCComment on above:SandostatinStart: 03-81-5910Rlkqgj Wellness Visit (Medicare)Annual Wellness Visit (Medicare)[facility]OSPITALStart: 09-22-2023 End: 37-54-1824Fujekxl encounter vhcvurwsy97/08/2023 Office Visit Oncology Trevor Davidson MD [address] [place] [address] [facility] Part of [facility] Hospitaltart: 09-02-2023 End: 35-90-9863Bhrljfh encounter gatfpqnae14/19/2023 Office Visit Family Medicine Lion Carlson MD [address] [place] [address] [facility]: 35-60-1809Dfxgahbwdm ScreenDepression ScreenBON [facility]: 07-16-2023 End: 44-58-3004Otqeuse encounter kcodptuho14/01/2023 Office Visit Endocrinology Charles Nowak MD [address] [place] [address] [facility] EndoStart: 54-07-8915KEAMF-19 Vaccine ( season)COVID-19 Vaccine ( season)[facility]: 07-16-2023 COVID-19 Vaccine ( season)COVID-19 Vaccine ( season) [facility]art: 50-33-7594SBIJE-19 Vaccine ( season)COVID-19 Vaccine ( season)[facility]: 25-11-2835Rgtczb Wellness Visit (AWV)Annual Wellness Visit (AWV)[facility]: 06-15-2023 Influenza vaccinationFlu vaccine (#1)[facility]: 06-10-2023 End: 98-14-3039Bgnpvrd encounter wdrrombco15/27/2023 Appointment Infusion TherapyMWHZ MED ONCStart: 06-08-2023 End: 98-99-1703Adwwejx encounter kcdyufdwz82/25/2023 Office Visit Endocrinology Charles Nowak MD [address] [place] [address] [facility] EndoStart: 05-13-2023 End: 51-56-9386Qjoyocu encounter /29/2023 Appointment Infusion TherapyMWHZ MED ONCStart: 04-05-2023 End: 22-28-2740Stnjkyv encounter /22/2023 Appointment Infusion TherapyMWHZ MED ONCStart: 03-25-2023 End: 84-00-2509Ntxbxuo encounter jdyhptabg63/11/2023 Office Visit Cardiology Abdirizak Oro MD [address] [place] [address] [facility] Cardiology SpecialistStart: 96-09-9303Nzlipgqmik measurementCreatinineMercy HealthStart: 00-46-9718Yfwlicnsc [Moles/volume] in Serum or PlasmaPotassiumMercy HealthStart: 03-10-2023 End: 83-80-3802Zhrogqe encounter gtyvnffgb09/26/2023 Office Visit Oncology Yoel- Trevor Kumari MD [address] [place] [address] [facility] Part of [facility]: 03-09-2023 End: 66-12-4265Vzbveiy encounter ltcaeinap46/25/2023 Office Visit Endocrinology Charles Nowak MD [address] [facility]. [address] [place], [place] [address] [facility] EndoStart: 35-54-1382Vmeoeh Wellness Visit (AWV)Annual Wellness Visit (AWV)[facility]Start: 03-08-2023 End: 03-32-1834Jvdrmae encounter /24/2023 Appointment Infusion TherapyMWHZ MED ONCStart: 03-03-2023 End: 93-88-1121Wcfxjrp encounter aeezvjege00/19/2023 Appointment Infusion TherapyMWHZ MED ONCStart: 67-00-3806Bfnymd Wellness Visit (AWV)Annual Wellness Visit (AWV)[facility]ITALStart: 02-23-2023 End: 70-05-6533Kpojzky encounter qtchwewnl08/11/2023 Office Visit Family Medicine Lion Carlson MD [address] [place] [address] [facility] LivingStart: 87-47-9597Bcfzmlsfts ScreenDepression ScreenMercy HealthStart: 02-02-2023 End: 75-38-2750Hpleltv encounter ozpwkdicb29/21/2023 Appointment Infusion TherapyMWHZ MED ONCStart: 65-83-4976Vinqasgnwe measurementCreatinine monitoring [facility] OhioStart: 58-27-7728Ahnsoygkc monitoringPotassium monitoringKing'S Daughters Medical Center OhioStart: 01-12-2023 End: 73-83-2740Ubqobgfov jetdavefv12/28/2023 Scheduled Telephone [facility]acyStart: 01-05-2023 End: 47-01-2573Tlkasaz encounter lulbpiisl49/21/2023 Appointment Infusion TherapyMWHZ MED ONCStart: 12-21-2022 End: 34-61-7708Qklvwnloe sajugdync24/06/2023 Scheduled Telephone Encounter [facility]acy[facility] Clinical PharmacyStart: 12-15-2022 End: 42-56-0177Okjfqan encounter /31/2023 Office Visit Endocrinology Charles Noawk MD [address] [place] [address] [facility] EndoStart: 12-10-2022 End: 56-06-3952Apdnuih encounter tdiasjfdd92/26/2023 Appointment Infusion TherapyMWHZ MED ONCStart: 11-27-2022 End: 43-77-6688Gukfdsw encounter txvlbwier22/13/2023 Office Visit Endocrinology Charles Nowak MD [address] [place] [address] [facility] EndoStart: 45-92-4700Ihvfrfifhf measurementCreatinine monitoringKing'S Daughters Medical Center OhioStart: 59-03-4685Tkzkhulke monitoringPotassium monitoringKing'S Daughters Medical Center OhioStart: 09-08-2022 End: 41-73-7723Jqwgepu encounter /25/2022 Appointment Infusion TherapyMWHZ MED ONCStart: 08-26-2022 End: 14-52-0286Irhcqtk encounter /12/2022 Office Visit Oncology Trevor Davidson MD [address] [place] [address] [facility] of [facility]: 08-25-2022 End: 74-54-3619Jvlaaai encounter fexmvvung72/11/2022 Office Visit Family Medicine Lion Carlson MD [address] [place] [address] [facility]: 08-12-2022 End: 70-72-9006Dszrxew encounter qlwdvxpaw56/28/2022 Office Visit Endocrinology Charles Nowak MD [address] [place] [address] [facility] EndoStart: 08-11-2022 End: 88-86-7211Vflgtcb encounter cqhlavysd19/27/2022 Appointment Infusion TherapyMWHZ MED ONCStart: 75-03-0049Qtczymyzfg measurementCreatinine monitoring [facility] OhioStart: 68-56-3932Rkdrycifn monitoringPotassium monitoringKing'S Daughters Medical Center OhioStart: 03-12-8938Liaobbafn vaccinationFlu vaccine (#1)[facility]: 06-30-2022 End: 85-09-9983Oumdzsh encounter zonvfwcge54/16/2022 Office Visit Endocrinology Charles Nowak MD [address] [place] [address] [facility] EndoStart: 75-09-2131Btvxxoboqv A1c jobkwwtvjmqQ8R test (Diabetic or Prediabetic)[facility]: 06-15-2022 Influenza vaccinationFlu vaccine (#1)[facility]: 06-12-2022 End: 72-97-7601Lezncqo encounter hhluagzxv80/29/2022 Appointment Infusion TherapyMWHZ MED ONCStart: 06-09-2022 End: 93-93-5627Xdepber encounter biskkqcya54/26/2022 Appointment Infusion TherapyMWHZ MED ONCStart: 2022 End: 16-56-3065Zbdgfae encounter gpxsmfoqu61/28/2022 Appointment Infusion TherapyMWHZ MED ONCStart: 94-24-1355Yjdjvpfowm measurementCreatinine monitoring [facility] Work Phone: start: 39-47-9571Meuryrvwk monitoringPotpomona valley hospital medical center monitoringHolzer Medical Center [facility] [employer] Work Phone: start: 04-14-2022 End: 72-11-8796Woxpqsf encounter cocrnkjbs45/31/2022 Appointment Infusion TherapyMWHZ MED ONCStart: 15-72-0042Gjmxjxfn foot examinationDiabetic foot exam [facility]. [facility] HospitalNobles Medical Technologies Phone: start: 03-31-2022 End: 02-82-3367Xjodfhs encounter qtqvvoonq25/17/2022 Office Visit Endocrinology Charles Nowak MD [address] [place], [place] [address] [facility] EndoStart: 03-26-2022 End: 42-67-0663Bbnnkxm encounter eupirymsz19/12/2022 Office Visit Cardiology Abdirizak Oro MD [address] [place] [address] [facility] Cardiology SpecialistStart: 03-25-2022 End: 10-66-0211Qeqkfng encounter /11/2022 Office Visit Oncology Yoel- Trevor Kumari MD [address] [place], [place] [address] [facility] of [facility]: 02-27-2022 End: 04-18-8192Rmewsta encounter iyhbujzeo66/15/2022 Office Visit Endocrinology Charles Nowak MD [address] [place] [address] [facility] EndoStart: 02-16-2022 End: 90-11-3294Uxbhfgv encounter eawjyktgu53/04/2022 Appointment Infusion TherapyMWHZ MED ONCStart: 02-05-2022 End: 37-66-0064Ogupbhb encounter rrfewzsfa22/24/2022 Office Visit Family Medicine Lion Carlson MD [address] [place] [address] [facility] Care [facility]: 42-77-0421Yedljlwocz ScreenDepression ScreenHolzer Medical Center – Jackson HealthStart: 65-27-8583Fsfnfeshcx measurement Creatinine monitoringMercy Health Work Phone: start: 57-93-1907Gvuaxdcoc monitoringPotassium monitoringMercy Health Work Phone: start: 01-19-2022 End: 95-04-1765Eijoqld encounter dyjtsmdhk00/07/2022 Appointment Infusion TherapyMWHZ MED ONCStart: 11-21-2021 End: 41-45-7485Falcaby encounter vvzlgmeup81/07/2022 Appointment Infusion TherapyMZ MED ONCStart: 11-19-2021 End: 03-92-7863Vcwifqp encounter yjcdnwosc09/05/2022 Office Visit Oncology Trevor Davidson MD [address] [place] [address] [facility] Part of [facility]: 97-33-5576Cxgptwdxro measurementCreatinine monitoringHolzer Medical Center – [facility] Health- [place], [place]Stsouth [place]: 30-34-4837Twteo panelLipid screenACMC Healthcare System [facility], [facility]: 75-82-9040Qorowvmxz monitoringPotassium monitoringACMC Healthcare System Glenbeigh, [facility] Unitart: 10-24-2021 End: 06-28-9137Dcqykne encounter itgkruzsa71/10/2021 Office Visit Endocrinology Charles Nowak MD [address] [place] [address] [facility] EndoStart: 39-33-2355Jbfsyr Wellness Visit (AWV)Annual Wellness Visit (AWV)[facility]: 10-21-2021 End: 07-20-2221Edecdjx encounter njxovemjy03/07/2021 Appointment Infusion TherapyMMAIMONIDES [facility]WOOD [facility] MED ONCStart: 10-02-2021 End: 11-32-0241Eecutwu encounter procedureKINDRED [facility] Part of [facility]: 09-26-2021 End: 76-65-0570Vciqlkd encounter procedureHenry County Hospital EndoStart: 00-02-1260Vslbtwuepg measurementCreatinine monitoringACMC Healthcare System Glen[facility]igh, KYStart: 25-59-4975Cbzeoscfa monitoringPotassium monitoringACMC Healthcare System [facility], KYStart: 08-25-2021 End: 77-70-1188Vyaxfsc encounter /11/2021 Appointment Infusion TherapyMWHZ MED ONCStart: 08-07-2021 End: 93-20-9799Nudkpj Visit08/07/2021 Office Visit Family Medicine BackLion MD [address] [place], [place] [address] [facility]ukStart: 07-28-2021 End: 70-78-4262Ikvzcqo encounter qxphjxwuu73/13/2021 Appointment Infusion TherapyMZ [facility] ONCStart: 64-93-3658Pxjjiuigu vaccinationFlu vaccine (#1)[facility] Work Phone: start: 88-44-8056Spifewjhnf measurementCreatinine monitoringACMC Healthcare [facility], KYStart: 64-97-3774Gpcixomwo monitoringPotassium monitoringACMC Healthcare System [facility], KYStart: 06-10-2021 End: 93-22-1144Onjtdit encounter fwamjrwnr56/27/2021 Office Visit Endocrinology Charles Nowak MD [address] [facility]. [address] [place] [id number] [facility] EndoStart: 05-28-2021 End: 49-26-2218Japzwxu encounter cuucwqdcc92/14/2021 Appointment Infusion TherapyMWHZ [facility] ONCStart: 35-48-2789Oxemlr TherapyStatin TherapyACMC Healthcare System [facility]igh, KYStart: 05-07-2021 End: 43-13-2628Bffacr Visit05/07/2021 Office Visit Oncology Trevor Serna MD [address] [place] [address] OBJNVKINDRED H[facility] Part of [facility] Hospitaltart: 25-06-4750YwF5r (Bld) [Mass fraction]A1C test (Diabetic or Prediabetic)[employer] Phone: start: 90-41-0874Acosrzrfeh A1c eftdlbxuknsI1H test (Diabetic or Prediabetic)[employer] Phone: start: 04-25-2021 End: 51-38-2179Vbrofyx encounter aajmagqql03/11/2021 Appointment Infusion TherapyMWHZ MED ONCStart: 52-85-1637Bdhqmxbgvh measurementCreatinine monitoring [place], KYStart: 40-30-4204Exngd panelLipid screenKinsley, [place] Start: 52-69-3200Xzhanoqut monitoringPotassium [place], [place] Start: 11-97-7072AFWRA-19 Vaccine (3 - Inadvertent risk 4-dose series)COVID-19 Vaccine (3 - Inadvertent risk 4-dose series)[facility] OhioStart: 39-48-9674JUWOE- 19 Vaccine (3 - Mixed Product risk series)COVID-19 Vaccine (3 - Mixed Product risk series)[facility]Start: 22-82-7401NLLWW-19 Vaccine (3 - Moderna risk 3-dose series)COVID-19 Vaccine (3 - Moderna risk 3-dose series) [facility] [employer] Phone: start: 08-54-6995UJTJT-19 Vaccine (3 - Moderna risk 4- dose series)COVID-19 Vaccine (3 - Moderna risk 4-dose series)[facility] OhioStart: 04-08-2021 End: 61-40-2982Nwocllr encounter eurbkrhzm51/25/2021 Office Visit Endocrinology Charles Nowak MD [address] [place] [address] [phone] [facility] EndoStart: 04-07-2021 End: 58-39-1081Dfpghf Visit04/07/2021 Office Visit Endocrinology Charles Nowak MD [address] [place] [address] [phone] [facility] EndoStart: 03-26-2021 End: 18-32-3803Impmspjtmyr29/12/2021 Appointment Infusion TherapyMWHZ MED ONC Start: 36-21-0585FMJCV-19 Vaccine (2 - Moderna 2-dose series)COVID-19 Vaccine (2 - Moderna 2-dose series)[facility] Work Phone: start: 02-26-2021 End: 61-50-2872Mtcbwtsodyn95/14/2021 Appointment Infusion TherapyMWHZ MED ONC Start: 02-06-2021 End: 36-03-7589Firhai Visit02/06/2021 Office Visit Endocrinology Charles Nowak MD [address] [place] [address] [phone] [facility] EndoStart: 01-30-2021 End: 64-89-2911Xsittr VisitUnityPoint Health-KeokukStsouth [place]: 01-29-2021 End: 72-10-4569Htucfrifymw13/17/2021 Appointment Infusion TherapyMWHZ MED ONC Start: 38-22-1044TbP6r (Bld) [Mass fraction]A1C test (Diabetic or Prediabetic) [facility] KYStart: 01-09-2021 End: 62-66-2636Jwjocv Visit01/09/2021 Office Visit Endocrinology Charles Nowak MD [address] [place] [address] [phone] [facility] Specialty PhysiciansStart: 01-01-2021 End: 78-56-1398Dzrsgvmenro07/17/2021 Appointment Infusion TherapyMWHZ MED ONC Start: 12-05-2020 End: 07-70-7263Rzxoyy Visit12/05/2020 Office Visit Endocrinology Charles Nowak MD [address] [place] [address] [phone] [facility] Specialty PhysiciansStart: 12-02-2020 End: 89-78-3644Jnrjaevuyxh97/18/2021 Appointment Infusion TherapyMWHZ MED ONC Start: 11-28-2020 End: 01-77-7535Kzcwbq Visit11/28/2020 Office Visit Oncology Trevor Serna MD [address] [place] [address] PDQOUKINDRED [facility] Hospitalt[facility]: 11-13-2020 End: 41-79-4158Nxins Only11/13/2020 Nurse Only [facility] 11-04-2020 End: 75-62-9114Bbindqgzugf04/21/2020 Appointment Infusion TherapyMWHZ MED ONC Start: 11-01-2020 End: 89-47-0006Qrwmimpobrk49/18/2020 Appointment Infusion TherapyMWHZ MED ONC Start: 10-31-2020 End: 42-28-8572Mnytha Visit10/31/2020 Office Visit Family Lion Cornejo MD [address] [place] [address] [phone] [facility]: 10-23-2020 End: 74-42-5844Mwwndt Visit10/23/2020 Office Visit Oncology Trevor Serna MD [address] [facility] [place] [address] EXZYEKINDRED [facility] Part [facility]: 10-22-2020 End: 66-22-1972Owfytg Visit10/22/2020 Office Visit Lion Knowles MD [address] [place] [address] [phone] [facility]: 06-19-1502Vvomxhuhzr measurementCreatinine monitoringPaulding County Hospital: 33-78-7584Rmlzevxsqr monitoringCreatinine monitoring[facility] [place] Work Phone: start: 94-61-8157Lgjefchtknxd 0-64 years Vaccine (3 - PPSV23 if available, else PCV20)Pneumococcal 0-64 years Vaccine (3 - PPSV23 if available, else PCV20)ALEXUS GACRIA [facility]: 44-50-6951Jpngviaunggw 0-64 years Vaccine (3 - PPSV23 or PCV20)Pneumococcal 0-64 years Vaccine (3 - PPSV23 or PCV20)[facility]: 80-93-6858Xmjzorkhk monitoringPotassium monitoring [facility] [place] Work Phone: start: 34-42-9625RbT2d (Bld) [Mass fraction]A1C test (Diabetic or Prediabetic)[facility], [facility]: 44-09-7120Ksstpcxcnz monitoringCreatinine monitoringACMC [facility] System [facility], [facility]: 44-68-1417Utgaanpue monitoringPotassium monitoringACMC Healthcare System [facility], [facility]: 26-77-8851Jwqcbizzgq monitoringCreatinine [facility]: 92-01-9765Mkeriiapf monitoringPotassium [facility]: 10-03-2020 End: 71-70-2451Ktfnajepaxd25/19/2020 Appointment Infusion TherapyMWHZ MED ONC Start: 23-08-8806V2O test (Diabetic or Prediabetic)A1C test (Diabetic or Prediabetic)[facility]: 94-77-7766LbH8v (Bld) [Mass fraction]A1C test (Diabetic or Prediabetic)[facility], [facility]: 50-81-8558Tnrli panel Lipid screenACMC Healthcare System [facility], [facility]: 55-53-7133Dnqyd screenLipid screenACMC [facility] System [facility], [facility] Unitart: 70-21-3927O6M test (Diabetic or Prediabetic)A1C test (Diabetic or Prediabetic)[facility], [facility]: 05-44-0439Gfnoqbpfcb monitoringCreatinine [facility]art: 38-76-3618Jszkz screen Lipid screenACMC Healthcare System [facility], [facility] Unitart: 68-18-2349Kbcuslnna monitoringPotassium [facility]: 09-25-2020 End: 75-37-7300Usezue Visit09/25/2020 Office Visit Oncology Trevor Serna MD [address] [place] [address] [place] [address] [facility]: 67-51-6427Whhmwlrbux monitoring Creatinine monitoringAC[facility], [place]Start: 03-70-3857Tpunkpxnt monitoring Potassium monitoringACMC [facility], [place]Start: 09-11-2020 End: 31-28-5428Mjherd Visit09/11/2020 Office Visit Oncology Trevor Serna MD [address] [place], [place] [address] [phone]: 08-08-7389Byrjlwnbxx monitoring Creatinine monitoringACMC [facility], [place]Start: 86-58-5669Udrpfslqe monitoring Potassium monitoringACMC [facility], [place]Start: 09-04-2020 End: 40-51-3958Twyqxktxjfi42/21/2020 Appointment Infusion TherapyMWHZ MED ONC Start: 39-08-2625Lmvrmthfpx monitoringCreatinine monitoringKettering Health [facility] [place], [place] Start: 61-13-9133Tvsfttaox monitoringPotassium monitoringAC[facility], [place] Start: 08-14-2020 End: 23-11-3003Fjnfuk Visit08/14/2020 Office Visit Oncology Trevor Serna MD [address] [place], [place] [address] [phone] [facility]: 08-07-2020 End: 15-20-9464Nupkzkzcsof66/23/2020 Appointment Infusion TherapyMWHZ MED ONC Start: 35-22-8827Dzpdcjhze vaccinationFlu vaccine (#1)[facility]: 07-12-2020 End: 54-68-2385Htyqlr Visit07/12/2020 Office Visit Family Medicine Lion Carlson MD [address] [place] [address] [phone] [facility]: 82-27-8406YeF6a (Bld) [Mass fraction]A1C test (Diabetic or Prediabetic)[facility]: 07-08-2020 End: 58-65-9527Ghffnawqurz70/24/2020 Appointment Infusion TherapyMWHZ MED ONC Start: 21-73-8195Ftiyuovaqx monitoringCreatinine monitoringMercy Health- [place], [place] Start: 17-64-4052Aeohb screenLipid screenKettering Health Preble [place], [place]Start: 06-28-2020 Potassium monitoringPotassium monitoringKettering Health [facility], [place]Start: 06-10-2020 End: 24-59-5194Xlqfemyrjym99/27/2020 Appointment Infusion TherapyMWHZ MED ONC Start: 08-61-4786Uxeayrlnyj monitoringCreatinine monitoringKing[facility] [place]- [place], [place] Start: 43-24-0285Vkpxtmbtg monitoringPotassium monitoringKing[facility] D[facility] [place]- [place] Start: 05-10-2020 End: 68-56-9034Vlljqgpqnpm89/26/2020 Appointment Infusion TherapyMWHZ MED ONC Start: 04-12-2020 End: 05-74-5049Pblwtcshers92/29/2020 Appointment Infusion TherapyMWHZ MED ONC Start: 04-11-2020 End: 42-86-3636Utnaig Visit04/11/2020 Office Visit Family Medicine Lion Carlson MD [address] [place] [address] [phone] [facility]: 04-10-2020 End: 57-14-8637Wggywh Visit04/10/2020 Office Visit Oncology Yoel-Trevor Kumari MD [address] [place] [address] DBJBOKINDRED [facility]: 33-28-4297Juomo screenLipid screen [facility], [place]Start: 03-08-2020 End: 33-45-8093ZobinmyxippWWNC MED ONCStart: 02-12-2020 End: 47-07-6234OnvybtveahtRNOS CARDIAC REHABComment on above:Canceled (Other) Start: 02-09-2020 End: 02-86-3763XhirfmbmkwjRJXP CARDIAC REHABStart: 02-07-2020 End: 60-46-2648Avinlsutnrr33/25/2020 Appointment Cardiac RehabilitationMZ CARDIAC REHABStart: 02-05-2020 End: 07-72-9764Fwkyyebaxax23/23/2020 Appointment [facility] RehabilitationM[facility]IM[facility] CARDIAC REHABStart: 02-02-2020 End: 98-93-5733Eunxpdxudey35/20/2020 Appointment Cardiac RehabilitationMMAIMONID[facility] CARDIAC REHABStart: 01-31-2020 End: 11-13-5875BajiwoxfjgiEFTR CARDIAC REHABStart: 01-29-2020 End: 15-15-3826Drhsdegcwnf72/16/2020 Appointment Cardiac RehabilitationMZ CARDIAC REHABStart: 01-26-2020 End: 48-25-3798Vbflpnhnskv94/13/2020 Appointment Cardiac RehabilitationMZ CARDIAC REHABStart: 01-24-2020 End: 63-06-0268Venzwjsegys23/11/2020 Appointment Cardiac RehabilitationMZ CARDIAC REHABStart: 01-22-2020 End: 78-59-7560Nedgmspypse78/09/2020 Appointment Cardiac RehabilitationMZ CARDIAC REHABStart: 01-19-2020 End: 75-68-5450KzwmpnmxhmaKAZK CARDIAC REHABStart: 01-17-2020 End: 71-47-9555Veqmltuzoxu58/04/2020 Appointment Cardiac RehabilitationMMAIM[facility] CARDIAC REHABStart: 01-15-2020 End: 48-15-2362Wwuxarcorqp21/02/2020 Appointment Cardiac RehabilitationMMAIM[facility] CARDIAC REHABStart: 01-12-2020 End: 16-58-5419Uehraehvezz63/28/2020 Appointment Cardiac RehabilitationMMAIM[facility] CARDIAC REHABStart: 01-10-2020 End: 69-55-3937Irqofhsuqzf42/26/2020 Appointment Cardiac RehabilitationMZ CARDIAC REHABStart: 01-08-2020 End: 73-97-7044CefeulgqkanJOYC CARDIAC REHABStart: 01-05-2020 End: 34-21-0516Gjblfrncsse71/21/2020 Appointment Cardiac RehabilitationMMAIM[facility] CARDIAC REHABStart: 01-03-2020 End: 74-30-2006Naiegkcfovj39/19/2020 Appointment Cardiac RehabilitationMZ CARDIAC REHABStart: 01-01-2020 End: 25-93-3974Lvbanhykdjg21/17/2020 Appointment Cardiac RehabilitationMZ CARDIAC REHABStart: 12-29-2019 End: 08-78-7937Tdnnxjkjrsh65/14/2020 Appointment Cardiac RehabilitationMZ CARDIAC REHABStart: 12-27-2019 End: 19-89-3499Dtoxmgdtkkl57/12/2020 Appointment Cardiac RehabilitationMMAIM[facility] CARDIAC REHABStart: 12-25-2019 End: 96-52-6656Pbqmuywscyt77/10/2020 Appointment Cardiac RehabilitationMMAIM[facility] CARDIAC REHABStart: 12-22-2019 End: 66-25-4237Cnhfnimyvfv02/07/2020 Appointment Cardiac RehabilitationMMAIM[facility] CARDIAC REHABStart: 12-20-2019 End: 64-64-5261BthhkauplayAGTA CARDIAC REHABStart: 12-18-2019 End: 46-05-9078Ibthoypkrrt46/03/2020 Appointment [facility] RehabilitationGOW[facility] CARDIAC REHABStart: 34-81-1158Mxwzatcnjazg 0-64 years Vaccine (3 of 3 - PPSV23 or PCV20)Pneumococcal 0-64 years Vaccine (3 of 3 - PPSV23 or PCV20)[facility]: 52-26-7867Pwezysfmujwh 0-64 years Vaccine (3 of 3 - PPSV23) Pneumococcal 0-64 years Vaccine (3 of 3 - PPSV23)[facility]: 38-55-0130Zbytejxbpsnt 0-64 years Vaccine (3 of 4 - PPSV23)Pneumococcal 0-64 years Vaccine (3 of 4 - PPSV23)[facility]: 48-67-0975Gxzecjxcanrw 50+ years Vaccine (3 of 3 - PCV20 or PCV21)Pneumococcal 50+ years Vaccine (3 of 3 - PCV20 or PCV21)[facility]: 79-13-6401Mmmpmmxubcqo 50+ years Vaccine (3 of 3 - PPSV23, PCV20 or PCV21)Pneumococcal 50+ years Vaccine (3 of 3 - PPSV23, PCV20 or PCV21)[facility]: 29-67-2026Oqwbqogefwyo Vaccine: 50+ Years (3 of 3 - PCV20 or PCV21)Pneumococcal Vaccine: 50+ Years (3 of 3 - PCV20 or PCV21)[facility]: [facility]2019 End: 58-47-4904Rkucmskmosy34/31/2020 Appointment [facility] RehabilitationGOW[facility] CARDIAC REHABStart: 12-13-2019 End: 75-10-7865Bqcvzt VisitTiffin River [facility] CenterStart: 12-11-2019 End: 11-50-7500YfgjwlavqzwTKAE CARDIAC REHABStart: 12-08-2019 End: 23-62-3563Vydaileugeh26/24/2020 Appointment Cardiac RehabilitationMZ CARDIAC REHABStart: 12-06-2019 End: 20-22-6878Lzhcfazkxiq70/22/2020 Appointment Cardiac RehabilitationMZ CARDIAC REHABStart: 12-04-2019 End: 75-09-1259Utzsjnnwiis72/20/2020 Appointment Cardiac RehabilitationMZ CARDIAC REHABStart: 12-01-2019 End: 53-18-0418Pvvjyqullrx77/17/2020 Appointment Cardiac RehabilitationMZ CARDIAC REHABStart: 11-29-2019 End: 06-84-2905Ymojhkaoydb49/15/2020 Appointment Cardiac RehabilitationMZ CARDIAC REHABStart: 11-27-2019 End: 77-59-4575Pywtruerolb54/13/2020 Appointment Cardiac RehabilitationMZ CARDIAC REHABStart: 11-24-2019 End: 08-49-7050Biutfopnixi31/10/2020 Appointment Cardiac RehabilitationMZ CARDIAC REHABStart: 11-22-2019 End: 41-01-4441Qvutqgkbdch66/08/2020 Appointment Cardiac RehabilitationMZ CARDIAC REHABStart: 11-20-2019 End: 94-84-1560Ffefsklfpbo61/06/2020 Appointment Cardiac RehabilitationMZ CARDIAC REHABStart: 11-17-2019 End: 99-93-2872Nctuywljbeq91/03/2020 Appointment Cardiac RehabilitationMZ CARDIAC REHABStart: 11-13-2019 End: 77-55-2204ToaxtnqbgudSFYW MED ONCStart: 11-10-2019 End: 63-85-5741Wrtcwcwnzqu83/27/2019 Appointment Cardiac RehabilitationMZ CARDIAC REHABStart: 11-06-2019 End: 44-34-7439Wkfkgexlwod54/23/2019 Appointment Cardiac RehabilitationMZ CARDIAC REHABStart: 11-03-2019 End: 78-06-8987Iygjxdcghtf22/20/2019 Appointment Cardiac RehabilitationMZ CARDIAC REHABStart: 11-01-2019 End: 59-96-2777Ujevjzlxjht84/18/2019 Appointment Cardiac RehabilitationMZ CARDIAC REHABStart: 10-30-2019 End: 17-93-9739Iyzftfealqg17/16/2019 Appointment Cardiac RehabilitationMWHZ CARDIAC REHABStart: 10-27-2019 End: 65-40-5616Wnejmjvrvbt70/13/2019 Appointment Cardiac RehabilitationMWHZ CARDIAC REHABStart: 10-25-2019 End: 05-80-3102Mltrfi VisitTiffin [facility]2019 End: 22-24-5572Rfrshfllzfe01/09/2019 Appointment Cardiac RehabilitationMWHZ CARDIAC REHABStart: 10-20-2019 End: 43-21-3139Wceevk Visit10/20/2019 Office Visit Lion Knowles MD [address] [place] [address] [phone] [facility]: 10-18-2019 End: 82-82-5587Fjqfxmdcave54/04/2019 Appointment Cardiac Rehabilitation Ananda Campos RNMWHZ CARDIAC REHABStart: 81-78-5313Wzotxlgh Egpjuqpem30/03/2019 Hospital Encounter Cardiac RehabilitationMWHZ CARDIAC REHABStart: 10-16-2019 End: 75-52-1040Pzemcwexyko70/02/2019 Appointment Infusion TherapyMWHZ MED ONC Start: 09-29-2019 End: 67-64-1817Zbsxqn Visit09/29/2019 Office Visit Lion Knowles MD [address] [place] [address] [phone] [facility]: 88-59-7936Q9H test (Diabetic or Prediabetic)A1C test (Diabetic or Prediabetic)[facility]MALINIStart: 09-15-2019 End: 63-81-6118Tnjob metabolic 2000 panelBasic Metabolic Panel Lab Routine CKD (chronic kidney disease) stage 3, GFR 30-59 ml/min (HCC) REJI (acute kidney injury) (HCC) Expected: 09/15/2019, Expires: 09/08/2020[place], [place] Comment on above:Expected: 09/15/2019, Expires: 09/08/2020Start: 09-15-2019 End: 29-25-0806Gnuwhzrxlah43/01/2019 Appointment Infusion TherapyMWHZ MED ONC Start: 09-13-2019 End: 78-90-5000Cjuqvj Visit09/13/2019 Office Visit Oncology Trevor Serna MD [address] [id number] [facility] Mcginnis Oncology SpecialistsStart: 09-12-2019 End: 76-51-2832THS With Auto DifferentialCBC With Auto Differential Lab Routine Hematoma Expected: 09/12/2019, Expires: 09/08/2020[facility] on above:Expected: 09/12/2019, Expires: 09/08/2020Start: 97-37-9003Scvsvmmxr vaccinationFlu vaccine (#1)[place], [place]: 07-14-2019 End: 80-42-5852Nmrvcsbmwrp17/30/2019 Appointment Infusion TherapyMWHZ MED ONC Start: 06-30-2019 End: 92-83-3366Usdere Visit06/30/2019 Office Visit Family Medicine Lion Carlson MD [address] [place] [address] [phone] [facility] LivingStart: 97-05-6383R8Z test (Diabetic or Prediabetic)A1C test (Diabetic or Prediabetic)[place], [place]: 2019 Administration of herpes zoster vaccineZoster Vaccines (1 of 2)[facility]Start: 42-57-0284Qonns Cancer Screen FIT/FOBTColon Cancer Screen FIT/FOBTK[place], [place]Start: 75-43-6045SRI Vaccines (1 - Risk 50-74 years 1-dose series)RSV Vaccines (1 - Risk 50-74 years 1-dose series)[facility]Start: 2019 Screening for malignant neoplasm of colonOhioHealthStart: 85-45-5719Wasxfqjc Vaccine (1 of 2)Shingles Vaccine (1 of 2)[facility]: 11-26-2018[object Object]Diabetic foot examK[place], [place]Start: 11-13-7013Czfejjca foot examinationDiabetic foot examK[place], [place]Start: 54-38-8176Hpqjlkcr retinal examDiabetic retinal examPaulding County Hospital: 08-26-2015 Pneumococcal 0-64 years Vaccine (2 of 3 - PCV13)Pneumococcal 0-64 years Vaccine (2 of 3 - PCV13)[facility]: 36-41-9022Xfbgeyok microalbuminuria testDiabetic microalbuminuria testPaulding County Hospital: 32-69-3228Hprxb screening for proteinUrine MicroalbuminOhSuburban Community [facility]: 55-72-2424Xvolvdxgn B vaccine (1 of 3 - Risk Dialysis 4-dose series)Hepatitis B vaccine (1 of 3 - Risk Dialysis 4-dose series)[facility]: 67-49-8336RVaW/Tdap/Td vaccine (1 - Tdap)DTaP/Tdap/Td vaccine (1 - Tdap)[facility]: 1988 Hepatitis B vaccinationHepatitis B Vaccines (1 of 3 - 19+ 3-dose series) [facility]: 48-42-6194Pmhoxjuzl B Vaccine (1 of 3 - Risk 3-dose series) Hepatitis B Vaccine (1 of 3 - Risk 3-dose series)[facility]: 1988 Shingles vaccine (1 of 2)Shingles vaccine (1 of 2)[facility]: 41-75-4618Wcmhwytxyrx for diphtheria, pertussis, and tetanus Tetanus/Diphtheria/Pertussis (1 - Tdap)[facility]St[facility]: 07-42-9484Wdkphipvp C screeningHepatitis C ScreeningOhioHutchings Psychiatric Centerart: 51-59-2603EQQOH-19 Vaccine (1) COVID-19 Vaccine (1)[facility] [place] Work Phone: start: 64-56-1242BLL screenHIV screenPaulding County Hospital: 19-14-7226SCF screeningBrown Memorial Hospital: 58-06-0687Hyojmhkirm screening using PHQ-9 (Patient Health Questionnaire 9) scoreOhioKettering Health – Soin Medical CenterStart: 1980 DTaP/Tdap/Td vaccine (1 - Tdap)DTaP/Tdap/Td vaccine (1 - Tdap)[facility]: 49-10-0591Bzzgntre foot examinationDiabetic Foot ExamOhioHutchings Psychiatric Centerart: 27-10-4692Algkjnlk screeningDiabetic Eye ExamOhioHealthStart: 93-26-4246Lsffn screening for proteinUrine (micro)albumin/creatinine ratio - DiabetesOhioHealth Berger Hospital Start: 65-47-5275Hztkcff and physical examination, annual for health maintenance Wellness VisitOhioHealthStart: 06-28-1972Medicare Wellness VisitMedicare Wellness VisitOhioHealthStart: 19-10-5249Ewztirn-mumps-rubella vaccinationMMR Vaccines (1 of 1 - Standard series)[facility]HealthStart: 39-53-2545Jmcdgggie B vaccine (1 of 3 - 3-dose series)Hepatitis B vaccine (1 of 3 - 3-dose series)[facility]ITALStart: 48-80-3543Ishqlteys C screeningHepatitis C screen [facility], [place]Start: 29-78-2101Tgqrhzqs specific antigen measurementPSA LevelInioHealthStart: 79-39-1990Hsgvvcxvr for malignant neoplasm of colon [facility]Start: 05-01-2085Qbnpfgw vaccinationTetanus: Every 10yrsOhioHeal End: lead ECGECG 12 Lead ECG Routine Once for 1 Occurrences starting 06/21/2024 until 06/21/2024[facility] Work Phone: Comment on above:Once for 1 Occurrences starting 06/21/2024 until 06/21/2024asic metabolic 2000 [facility], KYComment on above:Daily until discontinued starting 09/09/2019, 1 completedDaily until discontinued starting 10/02/2019, 6 completedDaily until discontinued starting 10/01/2019, 1 completed End: 81-09-9117Ymyvf metabolic 2000 panel - Serum or PlasmaBasic metabolic panel Lab Routine ESRF (end stage renal failure) (HCC) 1 Occurrences starting 2023 until 05/11/2025[facility] Work Phone: comment on above:1 Occurrences starting 05/11/2024 until 05/11/2025 End: 56-13-4576Vlmio glucose - POCTBlood glucose - POCT Point of Care Testing Routine One Time for 1 Occurrences starting 08/29/2024 until 08/29/2024on Simplificare HealthComment on above:One Time for 1 Occurrences starting 08/29/2024 until 08/29/2024 End: 50-17-5288Jxaof Occult Stool Screen #1Blood Occult Stool Screen #1 Lab Routine One Time for 1 Occurrences starting 02/09/2025 until 02/09/2025on Simplificare HealthComment on above:One Time for 1 Occurrences starting 02/09/2025 until 02/09/2025 End: 97-92-7961DTELURT PHASE IICARDIAC PHASE II Card Rehab One Time for 1 Occurrences starting 04/16/2025 until 04/16/2025on Simplificare HealthComment on above:One Time for 1 Occurrences starting 04/16/2025 until 04/16/2025 End: 63-74-7112CUVKGQU PHASE IICARDIAC PHASE II Card Rehab One Time for 1 Occurrences starting 04/23/2025 until 04/23/2025on Simplificare HealthComment on above:One Time for 1 Occurrences starting 04/23/2025 until 04/23/2025 End: 24-94-5467AKBYLQC PHASE IICARDIAC PHASE II Card Rehab One Time for 1 Occurrences starting 04/30/2025 until 04/30/2025on ShoutitoutComment on above:One Time for 1 Occurrences starting 04/30/2025 until 04/30/2025ardiac Stress Test- W PharmCardiac Stress Test- W Pharm Cardiac Services Routine 09/29/2019 2:00 PM [employer] Glass[employer] End: 76-11-3232NYK Auto DifferentialCBC Auto Differential Lab Routine Tomorrow AM for 3 Occurrences starting 09/09/2019 until 09/11/2019, 1 completedSuburban Community Hospital & Brentwood HospitalSecondbrain, GlassesGroupGlobalComment on above:Tomorrow AM for 3 Occurrences starting 09/09/2019 until 09/11/2019, 1 completed End: 65-76-1749OYC panel - Blood by Automated countCBC Lab Routine ESRF (end stage renal failure) (HCC) 1 Occurrences starting 05/11/2024 until 05/11/2025 [facility]HealthComment on above:1 Occurrences starting 05/11/2024 until 05/11/2025 End: 35-26-7426NAI panel - Blood by Automated countCBC Lab Routine Every Other Day for 10 Days starting 02/11/2025 until 02/19/2025, 2 completedBon [facility] MedNewsComment on above:Every Other Day for 10 Days starting 02/11/2025 until 02/19/2025, 2 completed End: 42-74-7876Yoxsqzsudkxq AChromogranin A Lab Routine Carcinoid tumor of stomach 1 Occurrences starting 09/12/2019 until 09/12/2019[facility], [place] Comment on above:1 Occurrences starting 09/12/2019 until 09/12/2019Chromogranin AMMarietta [facility], [place] End: 67-90-1687Uwhppuhodptb AChromogranin A Lab Routine Carcinoid tumor of stomach, unspecified whether malignant 1 Occurrences starting 04/03/2020 until 04/03/2020[facility], MTComment on above:1 Occurrences starting 04/03/2020 until 04/03/2020 End: 00-26-5009Ktdtxibdtgkh AChromogranin A Lab Routine Carcinoid tumor of stomach, 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) 1 Occurrences starting 07/10/2020 until 07/10/2020[facility] Comment on above:1 Occurrences starting 07/10/2020 until 07/10/2020 End: 49-99-5559Sxumzinldydo AChromogranin A Lab STAT Carcinoid tumor of stomach, unspecified whether malignant 1 Occurrences starting 09/18/2020 until 09/18/2020 [facility], MTComment on above:1 Occurrences starting 09/18/2020 until 09/18/2020 End: 71-33-7237Arflvwvfhmoq AChromogranin A Lab Routine Carcinoid tumor of stomach, 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) 1 Occurrences starting 04/25/2021 until 04/25/2021[facility] Brent[facility] HospitalIDEA SPHERE Phone: comment on above:1 Occurrences starting 04/25/2021 until 04/25/2021 End: 42-55-9808Lvkrjxuukeit [facility] [employer] Phone: comjmlr on above:1 Occurrences starting 03/17/2022 until 03/17/2022 End: 77-42-3478Bjrsmqlejzmd [employer] Work Phone: comment on above:1 Occurrences starting 08/11/2022 until 08/11/2022 End: 44-85-1358Yxegrxzhdvcg RDN [employer] Work Phone: comwems on above:1 Occurrences starting 03/08/2023 until 03/08/2023 End: 67-44-4283Ywhouuftkhrm [facility] ShoutitoutComment on above:1 Occurrences starting 10/19/2024 until 10/19/2024 End: 57-65-3678Ojbwbmylsddh [facility] ShoutitoutComment on above:1 Occurrences starting 04/23/2025 until 04/23/2025ontinuous Ambulatory Peritoneal Dialysis (CAPD)Continuous Ambulatory Peritoneal Dialysis (CAPD) Dialysis Routine Daily until discontinued adwoesjd66/30/2025on [employer] Phone: Comment on above:Daily until discontinued starting 02/11/2025ontinuous pulse oximetryPulse oximetry, continuous Respiratory Care Routine Every 4hr until discontinued starting 02/09/2025on [employer] Comment on above:Every 4hr until discontinued starting 02/09/2025PAPCPAP Respiratory Care Routine As Needed until discontinued starting 09/28/2019[facility] HospitalSecondbrain, MALINIComment on above:As Needed until discontinued starting 09/28/2019 End: 78-44-6070Usdybuarht (U) [Mass/Vol]Creatinine, Random Urine Lab Routine Once for 1 Occurrences starting 08/29/2019 until 08/29/2019[facility] HospitalSecondbrain, MALINI Comment on above:Once for 1 Occurrences starting 08/29/2019 until 08/29/2019 Creatinine (U) [Mass/Vol]Creatinine, Random Urine Lab Routine 08/29/2019 2:31 PM [employer], MALINI End: 88-77-9331Wthuttosww [Mass/volume] in UrineBON [employer] Work Phone: Comment on above:Once for 1 Occurrences starting 05/25/2022 until 05/25/2022 End: 88-53-2351AM Abdomen and Pelvis W contrast IVCT Abdomen Pelvis With Contrast Imaging Routine GIST, non-malignant 1 Occurrences starting 03/27/2024 until 03/27/2025[facility] Work Phone: comment on above:1 Occurrences starting 03/27/2024 until 03/27/2025 End: 90-76-6647Nese (TTE) complete (PRN contrast/bubble/strain/3D)[facility] [employer] Work Phone: Comment on above:1 Occurrences starting 10/19/2024 until 10/19/2024EKG 12 leadEKG 12 lead ECG Routine As Needed until discontinued starting 09/29/2019[facility] TripleLiftUNIVERSITY OF MISS[facility], [place]Comment on above:As Needed until discontinued starting 09/29/2019EKG 12 leadEKG 12 lead ECG Routine Vitamin D deficiency Mixed hyperlipidemia 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 Fatigue, unspecified type Shortness of breath NABOR (obstructive sleep apnea) Benign essential HTN 03/17/2022 12:19 PM [employer] Work Phone: EKG 12 LeadEKG 12 Lead ECG Routine 02/14/2025 12:08 PM EDTBon [employer] Work Phone: EKK 12 lead - PRN for Chest Pain or symptoms of ACSBon ShoutitoutComRavgen on above:As Needed for 1 Occurrences starting 02/09/2025s Needed for 999 Occurrences starting 02/09/2025Glucose [Mass/volume] in Serum or PlasmaPOCT Glucose Point of Care Testing STAT As Needed until discontinued starting 02/09/2025 [employer] Work Phone: comment on above:As Needed until discontinued starting 02/09/2025Glucose [Mass/volume] in Serum or PlasmaPOCT Glucose Point of Care Testing Routine 4X Daily (AC & HS) until discontinued starting 02/10/2025 ShoutitoutComRavgen on above:4X Daily (AC & HS) until discontinued starting 02/10/2025Glucose [Mass/volume] in Serum or PlasmaBon PhotoShelter on above:4X Daily (AC & HS) until discontinued starting 02/10/2025 As Needed until discontinued starting 02/10/2025 End: 00-33-1303Gupyivbepb A1c/Hemoglobin.total in [employer] Work Phone: comrudb on above:1 Occurrences starting 10/22/2021 until 10/22/2021 End: 84-41-2656Tvzsvbjupq A1c/Hemoglobin.total in [employer] Work Phone: compriw on above:Once for 1 Occurrences starting 03/17/2022 until 03/17/2022 End: 57-59-8099Rhkhazeajc A1c/Hemoglobin.total in [employer] Work Phone: comqyrq on above:1 Occurrences starting 07/14/2022 until 07/14/2022 End: 37-25-8790Smepryjdpk A1c/Hemoglobin.total in [employer] Work Phone: comvgyy on above:1 Occurrences starting 11/12/2022 until 11/12/2022 End: 51-60-9460Epjiverczc A1c/Hemoglobin.total in [employer] Work Phone: comjzey on above:1 Occurrences starting 03/08/2023 until 03/08/2023 End: 82-74-6780Vkmaqnznay A1c/Hemoglobin.total in [employer] Comment on above:1 Occurrences starting 10/19/2024 until 10/19/2024 End: 47-54-1762Tfymmieaog A1c/Hemoglobin.total in [employer] Comment on above:1 Occurrences starting 02/22/2025 until 02/22/2025 End: 33-07-3148Dugjhlldpz and HematocritHemoglobin and Hematocrit Lab Routine Post Transfusion Post Transfusion Post Transfustion until discontinued starting 02/13/2025 ShoutitoutComment on above:Post Transfusion Post Transfusion Post Transfustion until discontinued starting 02/13/2025Hemoglobin and Hematocrit, [employer]- [place], [place]:Every 8hr until discontinued starting 09/04/2019, 10 completedEvery 8hr until discontinued starting 09/04/2019, 2 completedPost Transfusion Post Transfusion Post Transfustion for 1 Occurrences starting 09/07/2019 End: 81-85-2995Nwgcetrez B Surface AntigenHON[facility] [employer] Phone: Comment on above:Once for 1 Occurrences starting 06/07/2024 until 06/07/2024Home BIPAP or CPAPHome BIPAP or CPAP Respiratory Care Routine Daily until discontinued starting 09/04/2019[facility] HospitalSecond[facility], GlassesGroupGlobalComment on above:Daily until discontinued starting 09/04/2019Home BIPAP or CPAPHome BIPAP or CPAP Respiratory Care Routine QHS until discontinued starting 5Bon ShoutitoutComment on above:QHS until discontinued starting 02/09/2025Initiate Oxygen Therapy ProtocolSuburban Community Hospital & Brentwood HospitalSecondbrain, GlassesGroupGlobalComment on above:Daily until discontinued starting 09/04/2019Daily until discontinued starting 09/28/2019Daily until discontinued starting 10/02/2019Daily until discontinued starting 10/06/2019 End: 80-96-5431KOMCTCGX PACU OXYGEN THERAPY PROTOCOLInitiate PACU Oxygen Therapy Protocol Respiratory Care Routine Continuous until discontinued starting 08/29/2024on ShoutitoutComment on above:Continuous until discontinued starting 08/29/2024Laps insertion tunneled intraperitoneal catheterINSERTION CATHETER PERITONEAL LAPAROSCOPIC ESRF (end stage renal failure) ([facility] [place] End: 03-63-3232Kgvsd [facility] [employer] Phone: comment on above:1 Occurrences starting 03/22/2023 until 03/22/2023 End: 30-46-9309Ymihamijgspk / Creatinine Urine RatioMicroalbumin / Creatinine Urine Ratio Lab Routine Controlled type 2 diabetes mellitus without compli cation, with long-term current use of insulin ([facility]) 1 Occurrences starting 11/12/2022 until 11/12/2022ON [employer] Phone: comjwcf on above:1 Occurrences starting 11/12/2022 until 11/12/2022Microalbumin, UrMicroalbumin, Ur Lab Routine 11/12/2022 1:04 PM [facility]ENTERBosideng Phone: End: 75-65-9107Etxnw Cannula OxygenNasal Cannula Oxygen Respiratory Care Routine As Needed until discontinued starting 09/28/2019[facility] HospitalSecondbrain, [place]Comment on above:As Needed until discontinued starting 09/28/2019 End: 32-93-6850WE Cardiac Stress Test Nuclear ImagingNM Cardiac Stress Test Nuclear Imaging Imaging Routine Once for 1 Occurrences starting 09/28/2019 until 09/28/2019[facility] HospitalSecondbrain, [place]Comment on above:Once for 1 Occurrences starting 09/28/2019 until 09/28/2019 End: 01-36-9619Zfvstt therapy [Minimum Data Set]Initiate Oxygen Therapy Protocol Respiratory Care Routine Carcinoid tumor of stomach, unspecified whether malignant As Needed until discontinued starting 06/07/2024 [employer] Phone: Comment on above:As Needed until discontinued starting 06/07/2024Oxygen therapy [Minimum Data Set]Initiate Oxygen Therapy Protocol Respiratory Care Routine As Needed until discontinued starting 08/29/2024 [employer] Phone: Comment on above:As Needed until discontinued starting 08/29/2024Oxygen therapy [Minimum Data Set]Initiate Oxygen Therapy Protocol Respiratory Care Routine As Needed until discontinued starting 08/29/2024 [employer] Phone: Comment on above:As Needed until discontinued starting 08/29/2024Oxygen therapy [Minimum Data Set]Initiate Oxygen Therapy Protocol Respiratory Care Routine As Needed until discontinued starting 02/09/2025 ShoutitoutComment on above:As Needed until discontinued starting 02/09/2025Oxygen therapy [Minimum Data Set]Initiate Oxygen Therapy Protocol Respiratory Care Routine As Needed until discontinued starting 02/13/2025 [employer] Phone: Comment on above:As Needed until discontinued starting 02/13/2025Platelets (Bld) [#/Vol]Platelet count Lab Routine Every Other Day until discontinued starting 10/02/2019, 2 completedSuburban Community Hospital & [facility] HospitalSecondbrain, GlassesGroupGlobalComment on above:Every Other Day until discontinued starting 10/02/2019, 2 completed End: 68-58-8695OIF CHEM8 INCLUDES CALC. ANION GAPPOC CHEM8 INCLUDES CALC. ANION GAP Point of Care Testing STAT One Time for 1 Occurrences starting 08/29/2024 until 08/29/2024 SecTravelCLICKUniversity Of Missouri Children'S Hospitalment on above:One Time for 1 Occurrences starting 08/29/2024 until 4POCT GlucoseHolzer Medical Center – [facility] NJMALINI Comment on above:As Needed until discontinued starting 09/04/20194X Daily (AC & HS) until discontinued starting 09/28/2019As Needed until discontinued starting 09/28/20194X Daily (AC & HS) until discontinued starting 10/01/2019As Needed until discontinued starting 10/01/2019 End: 69-39-6129CDFY glucosePOCT glucose Point of Care Testing STAT One Time for 1 Occurrences starting 09/28/2019 until 09/28/2019[facility] The GuildElif on above:One Time for 1 Occurrences starting 09/28/2019 until 09/28/2019 End: 55-20-4919QXHYHPC RBC (CROSSMATCH), 1 UnitsPREPARE RBC (CROSSMATCH), 1 Units Blood Bank Non-Stat Once for 1 Occurrences starting 09/07/2019 until 09/07/2019[facility] NJElif on above:Once for 1 Occurrences starting 09/07/2019 until 09/07/2019 End: 42-76-3110FZFTSMH RBC (CROSSMATCH), 1 UnitsPREPARE RBC (CROSSMATCH), 1 Units Blood Bank Routine Once for 1 Occurrences starting 02/13/2025 until 02/13/2025on [facility] [employer] Phone: comment on above:Once for 1 Occurrences starting 02/13/2025 until 02/13/2025 End: 62-68-4455Csyswbe / creatinine ratio, urineBON BAY HARBOR HOSPITALSynchroCombryan on above:Once for 1 Occurrences starting 12/03/2023 until 12/03/2023 End: 43-42-4589Pqjsnio, urine, randomProtein, urine, random Lab Routine Once for 1 Occurrences starting 08/29/2019 until 08/29/2019[facility] NJElif on above:Once for 1 Occurrences starting 08/29/2019 until 08/29/2019Protein, urine, randomACMC Healthcare System GlenbeighMALINI End: 08-17-0073Xftnxdf, urine, randomProtein, urine, random Lab Routine Once for 1 Occurrences starting 07/25/2021 until 07/25/2021[employer] Work Phone: comment on above:Once for 1 Occurrences starting 07/25/2021 until 07/25/2021 End: 21-02-6817Pgjfyef, urine, randomBON [employer] Work Phone: comment on above:Once for 1 Occurrences starting 05/25/2022 until 05/25/2022 End: 56-10-8225TPT, [facility] HospitalSequoia Media Group Work Phone: Comment on above:Once for 1 Occurrences starting 01/16/2022 until 01/16/2022 End: 02-35-7252EER, [employer] Work Phone: Comment on above:Once for 1 Occurrences starting 12/03/2023 until 4Pulse Oximetry Spot CheckPulse Oximetry Spot Check Respiratory Care Routine As Needed until discontinued starting 09/04/2019[facility] TripleLiftUNIVERSITY OF MISSOURI CH[facility], [place]Comment on above:As Needed until discontinued starting 09/04/2019 End: 36-40-7969Yzqnija D 25 HydroxyVitamin D 25 Hydroxy Lab Routine Once for 1 Occurrences starting 07/25/2021 until 07/25/2021[employer] Phone: comment on above:Once for 1 Occurrences starting 07/25/2021 until 07/25/2021Vitamin D 25 HydroxyVitamin D 25 Hydroxy Lab Routine 07/25/2021 2:42 PM EDBl[facility] [employer] Work Phone: End: 30-50-7703Zwqtepv D 25 HydroxyMercy [employer] Work Phone: comment on above:Once for 1 Occurrences starting 01/16/2022 until 01/16/2022 End: 38-75-2128Nrqgsnr D 25 HydroxyMercy [employer] Work Phone: Comment on above:1 Occurrences starting 03/17/2022 until 03/17/2022 End: 38-85-9120Nfzxexw D 25 HydroxyBON [employer] Work Phone: Comment on above:Once for 1 Occurrences starting 12/08/2022 until 12/08/2022 End: 90-36-2574Nkjwend D 25 HydroxyBON [facility] [employer] Work Phone: Comment on above:1 Occurrences starting 03/22/2023 until 03/22/2023 End: 51-16-7613Hhbbryh D 25 HydroxyBON GALION HOSPITALComment on above:Once for 1 Occurrences starting 12/03/2023 until 12/03/2023 Immunizations Immunization DateImmunizationNotesCare LxpbrodbHwfjraiy51-82-5719kxztgnbjz, injectable, madin shaylee canine kidney, preservative freeDavid Tiana RICHARDSON Work Phone: Bon [facility] HospitalYqbuoe90-26-5161tczxpzjvw virus vaccine, unspecified formulationJessy Byrne UDOzpnItyoso81-91-9110 Influenza, injectable, Madin Shaylee Canine Kidney, preservative free, quadrivalentMwh 1B[facility] Work Phone: [phone]aa virus vaccine, unspecified formulationBrian Arevalo MD Work Phone: [phone]issur42-65-2234Npwnfrgpu, injectable, Madin Shaylee Canine Kidney, preservative free, quadrivalentMwh 1M[facility] Work Phone: [phone]-85, MODERNA BLUE border, Primary or Immunocompromised, (age 12y+), IM, 100 mcg/0.5mLBilly Back Work Phone: bon [facility] HOSPITALWUXQFJ80-96-0099HOCRF-49, [place] Vaccine, Vaccine UnspecifiedBilly Back MD Work Phone: [facility] [place] Work Phone: [phone]-69, MODERNA BLUE border, Primary or Immunocompromised, (age 12y+), IM, 100 mcg/0.5mLBilly Back Work Phone: bon GALION HOSPITALLZEWLY15-20-3357EBUIM-35, [place] Vaccine, Vaccine UnspecifiedBilly Back Work Phone: [facility] [place] Work Phone: [phone]c, injectable, quadrivalent, preservative freeMwh [address] [place] [address], RA84-52-2683zlipmabnu, injectable, quadrivalent, preservative freeG. V. (Sonny) Montgomery Va Medical Centerly [facility], BS41-54-0475 pneumococcal conjugate vaccine, 13 valentGalion Hospital, [place] 89-70-9957nixmsluap, injectable, quadrivalent, preservative freeTrumbull Memorial HospitalVmkmrx86-25-3639agjmopwal, injectable, quadrivalent, preservative freeBilly [facility], OY30-64-4197gwuttpyir, injectable, quadrivalent, preservative freeGalion Hospital, BU10-45-3028jgrzrdmet virus vaccine, unspecified formulationGalion Hospital, [place]29-07-2267hywuewrya virus vaccine, unspecified formulationTrumbull Memorial HospitalMbnphn63-72-5919tmjkeceqfaiv polysaccharide vaccine, 23 valentGalion Hospital, [place]13-26-6617 influenza virus vaccine, unspecified formulationGalion Hospital, [place] NEGATED: Highlighted row has not occurred!62-36-3346lkayttcma, injectable, quadrivalent, preservative freeMwh [address] Burns StreetComment on above:Deferred: - patient stated he wants it prior to being discharge, not before surgery NEGATED: Highlighted row has not occurred!60-46-4125xjzdybkjd, injectable, quadrivalent, preservative freeChristina [facility], IncComment on above: Deferred: - states he will get it at his PCP office next week Payers DatePayer CategoryPayerPolicy [id number] Care (unspecified)[facility] [place] [address].2.840.917500.1.13.385.2.7.9.811114.625.33880-45-7927Tspbfvt 1.2.840.044744.1.13.385.2.7.3.436[id number] 1.2.840.020677.1.13.239.2.7.3.681707.35091-96-3336VoikttjJMOLWEY MUTUAL [employer] M[employer] PLUS PLAN [facility] xxxxxxxxxxxx 2016-Present [phone] [address] [place] [address]hbhqgdiqjmeb 1.2.840.862846.1.13.239.2.7.3.701969.60392-95-2630JcboeevOKMLNGH [employer]UTUAL MED[employer] MUTUAL MER[employer] PLUS PLAN [facility] [id number] 2016-Present [phone] [address] [place] [address]egwtkcuw3815 1.2.840.397876.1.13.239.2.7.3.740[id number] 1.2.840.367056.1.13.239.2.7.3.3215[id number] 1.2.840.743563.1.13.239.2.7.3.596433.315 2015MedicareMEDICARE MEDICARE PART A AND B xxxxxxxxxxx 2014-Present [phone] [place], [place] [address]xafnspnrxkg 1.2.840.844518.1.13.239.2.7.3.606821.315 2015Medicare MEDICARE MEDICARE PART A AND B [id number] 2014-Present [phone] [address] [place], [id number] 1.2.840.437230.1.13.239.2.7.3.243225.315 2006Medicare1.2.840.385644.1.13.385.2.7.3.030006.315 2006Medicare [id number] 1.2.840.800483.1.13.239.2.7.3.894[id number] 2.0.1.539832.3.57[id number] 2.0.1.977356.3.57[id number] 2.0.1.048219.3.57[id number] 2.0.1.014968.3.57[id number] 2.0.1.055842.3.579.2.[id number] 2.0.1.320377.3.579.2.43299-37-5803Tygzfqq91001266 2.840.1.688268.3.57[id number] 2.0.1.346509.3.579.2.80473-90-8776Ebjscql11004455 2.0.1.043412.3.579.2.55470-30-0419Ampuhxt63746702 2.0.1.174670.3.579.2.64304-89-6523Pzyolvb91781766 2.16840.1.425540.3.57[id number] 2.840.1.158510.3.579.2.[id number] 2.840.1.163659.3.579.2.43850-32-3261Lswldat71258554 2.840.1.366368.3.579.[id number] 2.840.1.798079.3.57[id number] 2..1.424862.3.579.[id number] 2..1.421729.3.579.2.14489-80-7719Jmujlsy99008692 2.0.1.552574.3.579.2.83448-25-0386Jywkhef60590674 2.0.1.700502.3.579.2.57896-14-4171Ymsttlu74771976 2.840.1.624262.3.579.2.74814-02-6127Lysqtuc03246317 2..1.379228.3.579.2.29564-68-3079Zjyqwpe54833783 2.840.1.475702.3.579.2.46845-53-2299Zxmidrx03860372 2.0.1.357736.3.579.2.89286-98-5736Wscyhfr43043305 2.840.1.737113.3.579.2.92892-58-6132Bvbegpi22215367 2.840.1.647592.3.579.2.59458-02-7315Tluosro34800877 2.840.1.434532.3.579.2.31258-02-4299Xcqwypq834355089 2..840.1.920540.3.579.2.66006-78-4415Bqllrzm770555660 2..840.1.919740.3.579.2.903 Social History DateTypeDetailFacilityStart: 06-14-2019 End: 12-02-7492Pjccume smoking status NHISNever smokerK[place], [place] History of tobacco useChews TobaccoPaulding County Hospital: 06-14-2019 End: 50-68-7627Ehglupq intakeNoPaulding County Hospital: 35-35-3236Ubrospj Commentcouple times/yearPaulding County Hospital: 66-40-3651Khv Assigned At BirthNot on filePaulding County Hospital: 09-28-2019 End: 68-37-3306Pzqzuca intakeCurrent non-drinker of alcohol (finding)[facility]: 04-11-2020 End: 58-24-1725Xpqkzjz use and exposureFormer userPaulding County Hospital: 10-31-2020 End: 02-25-1664Mesqygj SDOH Ltxcjewxy2JccoyPaulding County Hospital: 10-31-2020 End: 49-70-2221Xpaxzys SDOH Food Pfxcu9EltudPaulding County Hospital: 10-31-2020 End: 80-45-4093Siemzmg SDOH Transport Mwv6IvvppPaulding County Hospital: 12-05-2022 End: 27-02-4402Mcreygik to SARS-CoV-2 (event)Not surePaulding County Hospital: 92-80-4560Sdjvicg SDOH Alcohol Std Vlvmbu0QBV [facility]: 11-21-2023 End: 12-87-4693Gccprbt of Social functionBON GALION HOSPITALHow often to you have a drink containing alcohol?NeverBON GALION HOSPITALHow many standard drinks containing alcohol do you have on a typical day?Patient does not drinkBON ProvenHow hard is it for you to pay for the very basics like food, housing, medical care, and heatingNot very hardBON JOSE viavoo(I/We) worried whether (my/our) food would run out before (I/we) got money to buy more.Never trueBON JOSE CordiumGayathri [employer] InternationalAt any time in the past 12 months, were you homeless or living in long-term [including now]?NoBON JOSE MapMyFitness [facility] MED[facility] CENTERTobacco smoking status NHISTobacco smoking consumption unknown OhioHealthStart: 80-75-5396Tcmupqf use and exposureUser of smokeless tobacco [facility]HealthStart: 03-27-2024 End: 10-10-3058Nsvyfdh intakeEx-drinker (finding)[facility]HealthStart: 03-27-2024 Alcohol Commentdid drank occassionally in pastOhioHealthStart: 64-85-9428Kvj assigned at birthMalDignity Health [facility] LivTivix [facility] CenterStart: 37-84-7396Alkgzr identity Identifies as male gender (finding)Alexus [employer]pl[employer] [facility] CenterStart: 07-29-2024 Sexual orientationHeterosexual (finding)Alexus [employer] [facility] CenterStart: 90-50-5001OobRxnc (finding)Alexus ShoutitoutNEGATED: Highlighted row Start: NINFHistory of tobacco usePassive smokerBanner [employer] Medical Equipment Procedure CodeEquipment CodeEquipment Original TextEquipment IdentifierDates1 each by In Vitro route 4 times daily As needed.[id number]: 74-15-2715Qmw as directed with insulin pen needles, up to 5x/[id number]: 03-06-2019 End: 13-39-5442Kuf as directed to test up to 4 times rrjfc229116306Lqczh: 03-06-2019 End: each by In Vitro route 3 times daily As needed. Please dispense 3 boxes of 100.630663417Ztrvh: each by Does not apply route 4 times daily Use four times daily with insulin.[id number]: box by Does not apply route 3 times [id number]: each by In Vitro route 3 times daily As needed. Please dispense 3 boxes of 100.3814509482Yddbc: each by In Vitro route 3 times daily As needed. Please dispense 3 boxes of 100.6458756344Tzjia: each by In Vitro route 3 times daily As needed. Please dispense 3 boxes of 100.5818404116Wrjea: each by In Vitro route 3 times daily As needed. Please dispense 3 boxes of 100. [id number]: 83-99-1809Klg Cath 62cm 2cuff Curl Peritoneal - [id number]_impStart: 63-26-9594Xzv 14.5fr 28cm Cath Std Hemodialysis Glidepath - [id number]_zkbTdxqm: 28-32-0271Fyfvv 2.50 X 28 Synergy Xd Mr - [id number]_vluWgnlr: 70-70-3329Rdhsf 2.75 X 08 Synergy Xd Mr - [id number]_msyPhoyu: 03-89-9379Cihvc 4.00 X 28 Synergy Megatron Mr - [id number]_lrbFyszt: each by In Vitro route 3 times daily As needed. Please dispense 3 boxes of 100.1359179439Chjea: 16-92-6258Abdhr Coronary Rl Kathleen Rx 3.5x30 Mm Zotarolimus Elut - [id number] ()[id number]()[id number](10)[id number], 3960581_imp FDAStart: 14-28-2474Iyhvg Coronary Rl Kathleen Rx 2x30 Mm Zotarolimus Elut - [id number] ()[id number](17)802281(10)[id number], 3960594_imp FDAStart: 26-12-0147Lhntk Coronary [place] Kathleen Rx 2.5x26 Mm Zotarolimus Elut - [id number]()[id number](17)660387(10)[id number], 3960600_imp FDA Start: 04-86-8598Yccbw Coronary [place] Kathleen Rx 4x22 Mm Zotarolimus Elut - [id number]()[id number](17)131370(10)[id number], 3960618_imp FDA Start: 00-03-3118Ewcqy Coronary [place] Kathleen Rx 4x18 Mm Zotarolimus Elute - [id number]()[id number](17)850180(10)[id number], 3960642_imp FDA Start: 77-99-1047Bid Catheter Pump Insertion Intracardiac Impella Cp - [id number]()[id number](10)[id number], 3960480_[facility] FDAStart: each by In Vitro route 3 times daily As needed. Please dispense 3 boxes of 100. [id number]: box by Does not apply route 3 times [id number] Start: 43-46-1828Jdgsekp Perclose Prostyle - [id number]_neeHimer: 09-26-2025 Goals DatePatient GoalDesired Activity/StatePersonal health goalComment on above: Patient Self-Management Goal for Health Maintenance Goal: A1C less than 8% Barriers: Food choices such as breads and pasta Plan for overcoming my barriers: Work with ACM Confidence: Anticipated Goal Completion Date: 11/19/22 10/06/22 - Patient reports blood sugars 130-170 mg/dl with some outliers in 80's and over 200 mg/dl Comment on above:I will follow a nutritional plan as directed Calorie Controlled: 1800 Calories I will count my carbohydrates and monitor intake. Patient to see Diabetic Clinic at [facility]; focus on improving diet/carbohydrate controlled. Barriers: lack of motivation and stress Plan for overcoming my barriers: Get support from my and kids. Confidence: 04/24 Anticipated Goal Completion Date: [id number] on above:I will follow Diabetic diet more consistently Barriers: lack of motivation, lack of support, and overwhelmed by complexity of regimen Plan for overcoming my barriers: Will work with ACM and use pt education materials Confidence: 05/24 Anticipated Goal Completion Date: 11/03/20Comment on above: Patient Self-Management Goal for Health Maintenance Goal: A1C less than 8% Barriers: Food choices such as breads and pasta Plan for overcoming my barriers: Work with ACM Confidence: Anticipated Goal Completion Date: 11/19/22 10/06/22 - Patient reports blood sugars 130-170 mg/dl with some outliers in 80's and over 200 mg/dl Clinical Notes 11-20-2019 to 09-27-2025 Note Date & XiujAtdnZhtzrorw93-99-0960 NoteDate of admission: 09/19/2025 Admission diagnosis: Hyponatremia [E87.1] Anemia of chronic disease [D63.8] ESRD (end stage renal disease) (HCC) [N18.6] Abdominal wall cellulitis [L03.311] Abdominal pain, unspecified abdominal location [R10.9] Aortic stenosis, severe [I35.0] No admission procedures for hospital encounter. Referring Provider: Gracie Miller MD Attending provider: Melba Singh MD Primary Care Provider: Lion Carlson MD Chief Complaint/Reason for Consult: Hyperglycemia/DM management on insulin pump. History of Present Illness: Lorenzo Amato is a 55 y.o. year old male with hx of anemia, CAD, depression, diabetes mellitus, GERD, dyslipidemia, hypertension, MS, morbid obesity, NABOR, presented to [facility] on 09/19/2025 with abdominal pain and concern for cellulitis by nephrology. Patient reports bilateral flank/low abdomen pain. Denies CP, SOB, Nausea or vomiting. Reports fatigue. Patient had hypoglycemic event this AM with BG of 36. His insulin pump was held at that time. DM type: 2, diagnosed in approx 2003. Home regimen: (managed by Dr. Nowak, Student Services Advisor Stephanie KAMINSKI) Medtronic insulin pump with smartguard Settings: Basal rates: 0000: 14 u/hr. Sensitivity: 0000: 1:5 Carb ratio 0000: 1:2 Reports instructed to take 15 units with each meals, however not doing frequently. Home sugars: He is checking his blood sugars via CGM Pump reviewed over last 14 and 30 days. Average BG between 285-320 TDI in last 14 days averaging 34.1 units per day Basal: 31.95; Bolus: 2.15. Last A1c was 11.2 on 09/19. Current GFR is 9. Diabetes Complications: Eyes: Pos, last fundus exam was in last 12 months Renal: Pos, on PD, follows with nephrology for ESRD Neuropathy: Pos, numbness in feet Current inpatient regimen: Insulin pump on hold. 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 Gracie Miller Venous embolism lungs and legs Vitamin D deficiency Past Surgical History: Procedure Laterality Date APPENDECTOMY CARDIAC CATHETERIZATION N/A 06/21/2024 Procedure: Coronary Angiogram; Surgeon: Melba Singh MD; 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; Service: Cardiovascular CARDIAC CATHETERIZATION N/A 06/21/2024 Procedure: Angioplasy w/Stent- Coronary; Surgeon: Melba Singh MD; 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; Service: Cardiovascular CARDIAC CATHETERIZATION N/A 06/21/2024 Procedure: Angioplasty - Intravascular Lithotripsy - Coronary; Surgeon: Melba Singh MD; Location: 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; Service: Cardiovascular CARDIAC CATHETERIZATION N/A 09/21/2025 Procedure: Left and Right Heart Cath; Surgeon: Warren Jean MD; 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; Service: Cardiovascular; Laterality: N/A; Please note: RUE fistula CARDIAC CATHETERIZATION N/A 09/21/2025 Procedure: Coronary Angiogram; Surgeon: Warren Jean MD; 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; Service: Cardiovascular; Laterality: N/A; COLONOSCOPY last was 2015, polyps, done in [place], 2 procdures CORONARY ANGIOPLASTY WITH STENT PLACEMENT has had 2 surgeries, 2019 most recent CV IR INTERVENTIONAL RADIOLOGY N/A 06/16/2024 Procedure: VR Dialysis Cath Insert Tunnel; Surgeon: Dariusz Modi MD; Location: IR LAB; Service: Interventional Radiology; Laterality: N/A; ESOPHAGOGASTRODUODENOSCOPY last was done in [place], gastic tumor, INSULIN PUMP AND GLUCOSE SENSOR IR IVC FILTER PLACEMENT 2012 for Blood clots MT L HRT CATH W/NJX L VENTRICULOGRAPHY IMG S&I N/A 06/21/2024 Procedure: Left Heart Cath; Surgeon: Melba Singh MD; Location: 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; Service: Cardiovascular MT LAPS INSERTION TUNNELED INTRAPERITONEAL CATHETER N/A 05/19/2024 PD cath, [facility].....Dr. Brian Arevalo TATTOO TEETH EXTRACTION TRANSFUSION BLOOD PRODUCT VASECTOMY Social History[1] Family History Problem Relation Age of Onset Uterine cancer Mother Heart disease Father Diabetes Maternal Aunt Rheum arthritis Brother Coronary artery disease Brother Diabetes type I [facility] MEDS: Current Medications[2] ALLERGIES: Allergies[3] Review of Systems: As per subjective. Physical Exam: Vitals: BP (!) 92/56 (more content not included)...[facility] 09-26-2025 NoteArterial Catheter Insertion Procedure Note Patient Name: Lorenzo Amato Admit Date: [id number] MR #: [id number] : 1970 Sedation Plan: No Sedation [place] Protocol: 1. Pre-procedure verification: - Correct patient, correct site, correct procedure (correct patient verified against two identifiers: name and date of ) - H&P or H&P update complete and in medical record - Consent form completed and signed: Yes - Informed consent risks: bleeding, pain, infections, vascular compromise - Review of: Radiology images, scans, labs, pathology, biopsy reports with appropriate identifiers (if applicable) - Any required blood products, implants, devices, and/or special equipment for the procedure (if applicable) 2. Site Markings - when appropriate: Site marked by Licensed Independent Practitioner or other provider who is priviledged and credentialed to perform procedures 3. Time Out: Done immediately prior to procedure. (Includes validating the following: Correct patient, correct side/site marked and procedure to performed, correct position) Other: Hand Hygiene completed Procedure completed using maximum barrier precautions Indications: Hypotension, BP monitoring Procedure Details: The patient was appropriately positioned, draped, and prepped with chlorhexidine. This was allowed to dry completely. The skin overlying the surgical site was anesthetized with 1% lidocaine. The left JDPArteries: radial artery was accessed and cannulated and a flexible guidewire was passed through the needle and into the artery. 1 needle stick was/ required for cannulation of the artery. The needle was removed and exchanged for an arterial catheter noting pulsatile bright red blood. The catheter was then secured to the skin and connected to a pressure transducer. Verification: Arterial waveform on monitor. Ultrasound guidance was used during this procedure Estimated Blood Loss: Minimal Complications: None AUTHENTICATED BY JOSE WELCH ON 09/26/2025 17:07:53[facility] 09-26-2025 NoteProcedure Laterality Anesthesia Transcatheter Aortic Valve Replacement N/A Choice femoral access, RN conscious sedation, Evolut, no sentinel, no bailout Pre Procedure Diagnosis Severe aortic stenosis Post Procedure Diagnosis s/p TAVR with a 29 mm Evolut FX+ Conclusion Impression: Successful transfemoral transcatheter aortic valve replacement with a 29 mm Evolut FX+ valve No qualified Resident was available to assist in the case therefore due to the complexity,Blake Ríos MD was utilized as my assistant spa director Recommendations: Continue medical therapy Aggressive HD for significant volume overload Transcatheter Procedure A transcatheter valve replacement was performed on the aortic valve. The procedure was performed as an elective procedure. Access site: femoral. Transcatheter valve replacement: VALVE 29MM EVOLUT FX PLUS AORTIC. Rapid ventricular pacing was used. Transvenous pacing site : Pace on wire. . Post-delivery valvuloplasty not performed. . Post dilation regurgitation: none. . A second valve was not required. Complications No complications were associated with this study. Documented by Melba Singh MD - 09/26/2025 2:11 PM AUTHENTICATED BY MELBA SINGH, ON 09/26/2025 14:14:[address] [place] [address] 09-26-2025 NoteNEPHROLOGY PROGRESS NOTE [facility] Patient Name: Lorenzo Amato Admit Date: [id number] MR #: [id number] : 1970 Perpetual Assessment: Lorenzo Amato is a 55 y.o. male on hospital day 7 admitted for abdominal wall swelling We are asked to evaluate and manage end-stage kidney disease management Impression and Plan: End-stage kidney disease on CAPD with Dr. Carline Miller Previously on HD from June to August 2024 -EDW of 130kg Last 24hr urine collection of 600 cc which was a significant decrease in urine output from previous 24-hour collection Outpatient PD prescription: Manual exchanges, 4 cycles, 2-1/2 L fill volume, 2.5% dextrose solution Previously euvolemic and then patient became hypervolemic in the setting of decompensated heart failure from severe aortic stenosis. On 09/19, cycler PD prescription with 6 cycles, 2.5% dextrose solution, 6 cycles, over 12 hours PD 09/20 with 3 L volume removal with post PD weight of 131 kg PD 09/21 with 1.5 L volume removal with post PD weight of 130 kg PD 09/22 with 2.8 L PD 09/23 with 4.38 L volume removal after doing total volume of 15 L, 18 hours, 3 bags of 2.5% and 2 bags of 4.25%. Will continue with this prescription overnight. PD 09/24 with 4.5 L volume removal with post PD weight of 127.4kg PD 09/25 with 3.6 L volume removal with post PD weight of 123.5kg PD 09/26 with 3.6 L volume removal Patient continuously has documented hypotension. As expected his residual renal function appears to be dropping; he only had about 150 cc of urine output overnight. This is in the setting of 2 IV contrast loads and severe aortic stenosis. Hemodialysis will not UF as much fluid as we did in the last 48 hours on PD in light of his severe aortic stenosis and hypotension. He has lost residual renal function and near anuric. Ultimately his volume status will be corrected with improvement in hemodynamics status post aortic valve replacement. In addition if we are able to ultrafiltrate on PD it is preferred modality in light of his severe aortic stenosis and associated hypotension Reassuringly he does not have uremic symptoms. 2. Abdominal wall edema - Due to anasarca 2D echo on 09/20 showing EF 36%, grade 2 HFpEF, moderate to severe aortic stenosis -Contrast-enhanced CT abdomen pelvis did not show EPS -Peritoneal fluid cell count negative for peritonitis -We started lidocaine patch for pain control 09/22. Patient reports relief. Continue with this medication and like will need to be discharged on it. 3. Decompensated heart failure with EF 36%, grade 2 HFpEF, with moderate to severe -Continue to hold Entresto, metoprolol for now -[facility] in January 2025 showed severe multivessel CAD. Repeat heart catheterization shows high grade in-stent restenosis of Ostial LCX. 100% occluded ISR of D1 (new). Patent stents in LAD with no significant ISR. -Near anuric. -Continue midodrine 10 mg 3 times daily -Per CT surgery he is not a surgical candidate for open heart surgery. He is not a candidate for surgical bailout in case of catastrophic complications during any catheter-based intervention. To have TAVR today 5. Acute hypervolemic hyponatremia Expect this to improve with more aggressive UF as above 6. Metabolic acidosis Cont sodium bicarbonate 650 mg 3 times a day 7. 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 Historically poorly controlled type 2 diabetes A1c of 11%. Follows with endocrinology outpatient setting. Appreciate endocrinology involvement during this hospitalization 9. Anemia: Due to iron deficiency and CKD - Will give Venofer. Will give pushes to minimize fluid intake Hb at goal Subjective: No events overnight. Long discussion with patient and at bedside. Pt c/o gas in stomach. Review of Systems: ROS otherwise reviewed and negative Physical Examination: Vitals: Vitals: 09/26/25 0418 09/26/25 0830 09/26/25 1126 09/26/25 1227 BP: (!) 92/59 93/60 106/69 97/66 BP Location: Left arm Left arm Patient Position: Lying Pulse: 96 94 (!) 104 (!) 104 Resp: (!) 20 18 15 16 Temp: 97.4 degrees F (36.3 degrees C) 98 degrees F (36.7 degrees C) 98.1 degrees F (36.7 degrees C)97.7 degrees F (36.5 degrees C) TempSrc: Oral Oral Oral Oral SpO2: 100% 100% 100% 99% Weight: Height: Intake/Output last 3 shifts: Intake/Output Summary (Last 24 hours) at 09/26/2025 1230 Last data filed at 09/26/2025 1000 Gross per 24 hour Intake 565 ml Output 3662 ml Net -3097 ml I/O last 3 completed shifts: In: 765 [P.O.:765] Out: - General: No acute distress HEENT: Anicteric Neck: Supple CV: Regular rate, no murmurs or rubs. Lungs: CTA B Abd: hard abdominal wall edema Extr: + lower extremity edema Neuro: No myoclonus, alert and oriented x 3 Skin : No new rashes Dialysis access: PD catheter CDI Right AV fistula with t (more content not included)...[facility] 09-26-2025 NoteHMS PROGRESS NOTE Patient name: Lorenzo Amato Date of : 1970 Assessment and plan Lorenzo Amato is a 54 y.o. male patient of Lion Carlson MD with history of anemia, CAD, depression, diabetes mellitus, GERD, dyslipidemia, hypertension, MS, morbid obesity, NABOR, presented to [facility] on 09/19/2025 with abdominal pain and concern for cellulitis by nephrology Calcified sever aortic stenosis Acute on chronic HFrEF CAD venous thromboembolism DVT x 2 IVC filter 2009 Echo 09/20 EF 36%, grade 2 HFpEF, moderate to severe aortic stenosis Heart cath 06/20/2024 shows severe three-vessel coronary artery disease -> CABAG was declined then Heart cath done 09/21-> high grade in-stent restenosis of Ostial LCX. 100% occluded ISR of D1 (new). Patent stents in LAD with no significant ISR. CTS on board for evaluation of -> pt declining open heart Held eliquis started heparin gtt 09/24 Continue with Plavix Cardiology following - plan for TAVR procedure Wednesday09/26/2025 Abdominal wall edema/anasarca ESRD on PD Has been having peritoneal dialysis since beginning this year, Does have a functional HD fistula as well reviously on HD 06-24 CT abdomen 09/19 Anasarca present throughout. S/p ceftriaxone in the ED, DC as there is no concern of Infection or cellulitis Peritoneal fluid analysis negative, peritoneal fluid culture negative, blood cultures negative, Nephrology on board-> managing peritoneal dialysis, using high dextrose dose causing hyperglycemia, no need to switch to HD Endocrinology on Board for hyperglycemia, DM management in setting of insulin pump, please notify endocrinology if any hypoglycemia noted Hypotension 90s Holding entresto, metoprolol, Lasix Nephrology and cardiology on board, management as above Procedural Anxiety Add hydroxyzine. 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 Held Eliquis, started Heparin gtt 09/24 Poorly controlled type II diabetes mellitus Pt has insulin pump, check blood glucose HL[facility]. Keep BG 140 and 180 Endocrinology on board, defer management of DM / hyperglycemia to them MS Morbid obesity NABOR BMI 43.56 Lifestyle modification advised to the patient CPAP at nighttime. Discharge planning Medically ready for discharge: no Patient and/or family has been notified they are expected to be medically stable for discharge on the following date:TBD Patient requires continued hospitalization due to: TAVR Discussed with the patient and/or family that the following is a potential discharge location, understanding that the final plan will depend on the patient's progress and shared decision-making: Home The following resources have been ordered to assist with discharge barriers: care management Quality measures DVT prophylaxis: heparin gtt Bill catheter: absent Code status Full Code Subjective Seen in bed,anxious and having some abdominal pain. Tylenol is helping, will add hydroxizine. Objective BP 93/60 (BP Location: Left arm, Patient Position: Lying) Pulse 94 Temp 98 degrees F (36.7 degrees C) (Oral) Resp (!) 20 Ht 5' 9 Wt 129.4 kg (285 lb 4.4 oz) SpO2 100% BMI 42.13 kg/m General appearance: alert; chronically ill appearing; in no acute distress HEENT: Head- normocephalic; Eyes- EOMI, sclera anicteric; Throat- mucous membranes moist Cardiovascular: regular rate and rhythm; normal S1, S2; no murmurs, rubs, clicks or gallops; peripheral edema present Respiratory: lungs clear to auscultation; without wheezes, rales or rhonchi; on CPAP Abdomen: soft, non-tender, non-distended Neurological: oriented x 3; normal speech; no focal findings or movement disorder noted Musculoskeletal: no significant deformity or tenderness to palpation Skin: normal coloration Psych: normal mood and affect AUTHENTICATED BY JEANE NAZARIO ON 09/26/2025 09:51:21[facility] 09-26-2025 NoteDate of admission: 09/19/2025 Admission diagnosis: Hyponatremia [E87.1] Anemia of chronic disease [D63.8] ESRD (end stage renal disease) (HCC) [N18.6] Abdominal wall cellulitis [L03.311] Abdominal pain, unspecified abdominal location [R10.9] No admission procedures for hospital encounter. Referring Provider: Gracie Miller MD Attending provider: [facility], Generic Primary Care Provider: Lion Carlson MD Chief Complaint/Reason for Consult: Hyperglycemia/DM management on insulin pump. History of Present Illness: Lorenzo Amato is a 55 y.o. year old male with hx of anemia, CAD, depression, diabetes mellitus, GERD, dyslipidemia, hypertension, MS, morbid obesity, NABOR, presented to [facility] on 09/19/2025 with abdominal pain and concern for cellulitis by nephrology. Patient reports bilateral flank/low abdomen pain. Denies CP, SOB, Nausea or vomiting. Reports fatigue. Patient had hypoglycemic event this AM with BG of 36. His insulin pump was held at that time. DM type: 2, diagnosed in approx 2003. Home regimen: (managed by Dr. Nowak, Student Services Advisor [facility]) Medtronic insulin pump with [email or web address]ifter Settings: Basal rates: 0000: 14 u/hr. Sensitivity: 0000: 1:5 Carb ratio 0000: 1:2 Reports instructed to take 15 units with each meals, however not doing frequently. Home sugars: He is checking his blood sugars via CGM Pump reviewed over last 14 and 30 days. Average BG between 285-320 TDI in last 14 days averaging 34.1 units per day Basal: 31.95; Bolus: 2.15. Last A1c was 11.2 on 09/19. Current GFR is 9. Diabetes Complications: Eyes: Pos, last fundus exam was in last 12 months Renal: Pos, on PD, follows with nephrology for ESRD Neuropathy: Pos, numbness in feet Current inpatient regimen: Insulin pump on hold. INFUSIONS: heparin infusion (weight based dosing) Stopped (09/26/25 0900) heparin Past Medical History: Diagnosis Date Acute bacterial bronchitis 07/29/2024 Anemia Arthritis Cancer (HCC) Coronary artery disease COVID Depression with anxiety Diabetes mellitus, type 2 (HCC) Dyspnea on exertion Gastric tumor Neuroendocrine tumor - takes Sandostatin - inoperable GERD (gastroesophageal reflux disease) Grade II diastolic dysfunction Hyperlipidemia Hypertension Insulin pump in place MS (multiple sclerosis) Myocardial infarction (HCC) 09/2006 NSTEMI (non-ST elevated myocardial infarction) (HCC) 02/13/2025 ali / impella/pci / - [facility] Obesity NABOR (obstructive sleep apnea) wears CPAP Proteinuria Rash Stage 5 chronic kidney disease (HCC) not on dialysis...LEGAL ASSOCIATE: Dr. Gracie Miller Venous embolism lungs and legs Vitamin D deficiency Past Surgical History: Procedure Laterality Date APPENDECTOMY CARDIAC CATHETERIZATION N/A 06/21/2024 Procedure: Coronary Angiogram; Surgeon: Melba Singh MD; Location: 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; Service: Cardiovascular CARDIAC CATHETERIZATION N/A 06/21/2024 Procedure: Angioplasy w/Stent- Coronary; Surgeon: Melba Singh MD; Location: 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; Service: Cardiovascular CARDIAC CATHETERIZATION N/A 06/21/2024 Procedure: Angioplasty - Intravascular Lithotripsy - Coronary; Surgeon: Melba Singh MD; Location: 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; Service: Cardiovascular CARDIAC CATHETERIZATION N/A 09/21/2025 Procedure: Left and Right Heart Cath; Surgeon: Warren Jean MD; Location: 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; Service: Cardiovascular; Laterality: N/A; Please note: RUE fistula CARDIAC CATHETERIZATION N/A 09/21/2025 Procedure: Coronary Angiogram; Surgeon: Warren Jean MD; Location: 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; Service: Cardiovascular; Laterality: N/A; COLONOSCOPY last was 2014, polyps, done in [place], 2 procdures CORONARY ANGIOPLASTY WITH STENT PLACEMENT has had 2 surgeries, 2019 most recent CV IR INTERVENTIONAL RADIOLOGY N/A 06/16/2024 Procedure: VR Dialysis Cath Insert Tunnel; Surgeon: Dariusz Modi MD; Location: IR LAB; Service: Interventional Radiology; Laterality: N/A; ESOPHAGOGASTRODUODENOSCOPY last was done in [place], gastic tumor, INSULIN PUMP AND GLUCOSE SENSOR IR IVC FILTER PLACEMENT 2012 for Blood clots MT L HRT CATH W/NJX L VENTRICULOGRAPHY IMG S&I N/A 06/21/2024 Procedure: Left Heart Cath; Surgeon: Melba Singh MD; Location: 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; Service: Cardiovascular MT LAPS INSERTION TUNNELED INTRAPERITONEAL CATHETER N/A 05/19/2024 PD cath, ESR[facility].....Dr. Brian Arevalo TATTOO TEETH EXTRACTION TRANSFUSION BLOOD PRODUCT VASECTOMY Social History[1] Family History Problem Relation Age of Onset Uterine cancer Mother Heart disease Father Diabetes Maternal Aunt Rheum arthritis Brother Coronary artery disease Brother Diabetes type I [facility] MEDS: Current Medications[2] ALLERGIES: Allergies[3] Review of Systems: As per subjective. Physical Exam: Vitals: BP (!) 92/59 Pulse 96 Temp 97.4 degrees F (36 (more content not included)...[facility]11-12-2025 Note09/26/25 Lorenzo Amato Provider: Zee Miranda PA-C, Service: Cardiothoracic Surgery CPT: 52822 ASSESSMENT : 55-year-old male with significant past medical history, including but limited to, CAD, S/P myocardial infarction 09/2006 and 02/13/25 with impella assisted PCI, severe pulmonary HTN on cath, DMII, neuroendocrine gastric tumor, hyperlipidemia, essential hypertension, multiple sclerosis, obesity, ESRD previously on HD now on PD secondary to hypotension. Admitted with acute decompensated heart failure with reduced EF, found with low flow, low gradient aortic stenosis. PLAN: NPO since midnight TAVR tentatively planned for 09/26/25 3.6 L removed PD on 09/25/25 PD in progress Last Eliuis dose: 09/24/24 morning dose Heparin gtt infusing - INR: 2.3 ADMITTED WITH THESE RISK VARIABLES: Noninvasive Mechanical Ventilation , Heart Block 1AVB LBBB, AMI, NSTEMI, Valve Disease, CHF, Chronic Liver Disease, Coagulation Defect, Chronic Kidney Disease, Fluid Overload, Electrolyte Disturbance: Hyponatremia, metabolic acidosis, Protein Calorie Malnutrition, and Chronic Fatigue/Reduced Mobility, acute on chronic (HFrEF : 36% ) (ACC D), NYHA (3- 4), inpatient heart failure admission in the last year: DM, HTN, PVD, NABOR, chronic fatigue, obesity, and reduced mobility due to dyspnea. Please see assessment and plan for further details. Sedation Plan: Moderate ASA Classification: ASA 3: A patient with severe systemic disease. Mallampati Score: Class II: Partial uvula and soft palate are visualized CARDIOVASCULAR & METABOLIC PROBLEMS LFLG Calcific aortic stenosis --- M mmHg, V-max: 2.9 m/s, and СЕРГЕЙ: 0.9 cm . SVI: 20 mL/m Acute on chronic HFrEF --- ACC C, LVEF: 36% Coronary artery disease --- PCI of LM into LAD [02/2025], proximal LAD/diagonal [06/2024], mid LAD [2018], LCx/OM [2005] Hypertension Hyperlipidemia Venous thromboembolic disease --- DVT x 2 s/p IVC filter [2009] Diabetes mellitus --- A1c: 11% End-stage renal disease --- on PD Gastric carcinoid tumor with mets to the liver --- on octreotide since 2012 55 y.o. old [place] male patient with severe symptomatic aortic stenosis here for elective TAVR. The risks and benefits of the procedure was explained. The risks reviewed includes but not limited to vascular damage, hematoma, infection, tamponade, allergic/anaphylactic reaction, acute renal insufficiency, need for emergency surgery, need for pacemaker, CO, stroke, or cardiac arrest/. Patient voiced understanding and agreed to proceed. Calcified sever aortic stenosis Acute on chronic HFrEF Severe [place] CAD Myocardial infarction: 09/2006 & 02/13/25 S/P PCI with Impella Venous thromboembolism DVT x 2 IVC filter 2009 LFLG severe aortic stenosis Plavix 75 mg continued HOLD Entresto and metoprolol Heparin gtt infusing Eliquis stopped for TAVR -> resume 72 hours post procedure ESRD on PD Hx of HD -> prohibitive d/t hypotension Anasarca Abdominal wall edema vs cellulitis HypoNatremia Metabolic acidosis PD managed by Nephrology Peritoneal fluid -> negative for perotinitis 24hr urine collection of 600 ml -> significant decrease in urine output from previous 24-hour collection No uremic Sx HypoNatremia -> secondary to hypervolemia Sodium bicarb for metabolic acidosis management Hypotension Midodrine TID HOLD Entresto, metoprolol and furosemide Gastric neuroendocrine tumor Non-operative Managed with octreotide Pantoprazole BID DMII A1c: 11.2 on 09/19 Endocrinology consulted for evaluation and treatment Insulin pump I/O last 3 completed shifts: In: 765 [P.O.:765] Out: - No intake/output data recorded. Intake/Output Summary (Last 24 hours) at 09/26/2025 0726 Last data filed at 09/25/2025 2201 Gross per 24 hour Intake 565 ml Output -- Net 565 ml SUBJECTIVE: Patient resting supine in bed, head of bed elevated at approximately 10 degrees. He has been n.p.o. since midnight for planned TAVR procedure today. Peritoneal dialysis ongoing. Patient currently denies fever, chills, orthopnea, paroxysmal external dyspnea, chest pain, syncope nor near syncope. He states he becomes short of breath with moving about in the bed. He has multiple open areas to bilateral feet, scabbing to chest. Chronic discoloration to anterior chest. OBJECTIVE: VITAL SIGNS: BP (!) 92/59 Pulse 96 Temp 97.4 degrees F (36.3 degrees C) (Oral) Resp (!) 20 Ht 5' 9 Wt 129.4 kg (285 lb 4.4 oz) SpO2 100% BMI 42.13 kg/m Intake/Output Summary (Last 24 hours) at 09/26/2025 07 Last data filed at 09/25/2025 2201 Gross per 24 hour Intake 565 ml Output -- Net 565 ml Labs: Recent Labs 09/24/25 0500 09/25/25 0414 09/26/25 0427 NA 133* 131* 134* K 3.5 3.6 3.5 CL 91* 88* 89* BICARB 22 24 22 BUN 53* 51* 46* CREATININE 7.33* 7.39* 7.38* GLUCOSE 160* 246* 134* Lab Results Component Value Date ALT 25 09/24/2025 AST 50 (more content not included)...[facility]11-11-2025 NoteNEPHROLOGY PROGRESS NOTE [facility] Patient Name: Lorenzo Amato Admit Date: [id number] MR #: [id number] : 1970 Perpetual Assessment: Lorenzo Amato is a 55 y.o. male on hospital day 6 admitted for abdominal wall swelling We are asked to evaluate and manage end-stage kidney disease management Impression and Plan: End-stage kidney disease on CAPD with Dr. Carline Miller Previously on HD from June to August 2024 -EDW of 130kg Last 24hr urine collection of 600 cc which was a significant decrease in urine output from previous 24-hour collection Outpatient PD prescription: Manual exchanges, 4 cycles, 2-1/2 L fill volume, 2.5% dextrose solution Previously euvolemic and then patient became hypervolemic in the setting of decompensated heart failure from severe aortic stenosis. On 09/19, cycler PD prescription with 6 cycles, 2.5% dextrose solution, 6 cycles, over 12 hours PD 09/20 with 3 L volume removal with post PD weight of 131 kg PD 09/21 with 1.5 L volume removal with post PD weight of 130 kg PD 09/22 with 2.8 L PD 09/23 with 4.38 L volume removal after doing total volume of 15 L, 18 hours, 3 bags of 2.5% and 2 bags of 4.25%. Will continue with this prescription overnight. PD 09/24 with 4.5 L volume removal with post PD weight of 127.4kg PD 09/25 with 3.6 L volume removal with post PD weight of 123.5kg Patient continuously has documented hypotension. As expected his residual renal function appears to be dropping; he only had about 150 cc of urine output overnight. This is in the setting of 2 IV contrast loads and severe aortic stenosis. Hemodialysis will not UF as much fluid as we did in the last 48 hours on PD in light of his severe aortic stenosis and hypotension. He has lost residual renal function and near anuric. Ultimately his volume status will be corrected with improvement in hemodynamics status post aortic valve replacement. In addition if we are able to ultrafiltrate on PD it is preferred modality in light of his severe aortic stenosis and associated hypotension Reassuringly he does not have uremic symptoms. 2. Abdominal wall edema - Due to anasarca 2D echo on 09/20 showing EF 36%, grade 2 HFpEF, moderate to severe aortic stenosis -Contrast-enhanced CT abdomen pelvis did not show EPS -Peritoneal fluid cell count negative for peritonitis -We started lidocaine patch for pain control 09/22. Patient reports relief. Continue with this medication and like will need to be discharged on it. 3. Decompensated heart failure with EF 36%, grade 2 HFpEF, with moderate to severe -Continue to hold Entresto, metoprolol for now -[facility] in January 2025 showed severe multivessel CAD. Repeat heart catheterization shows high grade in-stent restenosis of Ostial LCX. 100% occluded ISR of D1 (new). Patent stents in LAD with no significant ISR. -Near anuric. -Continue midodrine 10 mg 3 times daily -Per CT surgery he is not a surgical candidate for open heart surgery. He is not a candidate for surgical bailout in case of catastrophic complications during any catheter-based intervention. To have TAVR tomorrow 5. Acute hypervolemic hyponatremia Expect this to improve with more aggressive UF as above 6. Metabolic acidosis Cont sodium bicarbonate 650 mg 3 times a day 7. 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 Historically poorly controlled type 2 diabetes A1c of 11%. Follows with endocrinology outpatient setting. Appreciate endocrinology involvement during this hospitalization 9. Anemia: Due to iron deficiency and CKD - Will give Venofer. Will give pushes to minimize fluid intake -Will give GENARO Subjective: No events overnight. Long discussion with patient and at bedside. Pt c/o gas in stomach. Review of Systems: ROS otherwise reviewed and negative Physical Examination: Vitals: Vitals: 09/25/25 0712 09/25/25 0728 09/25/25 1100 09/25/25 1152 BP: (!) 92/59 (!) 92/59 (!) 92/59 BP Location: Left arm Left arm Patient Position: Sitting Lying Pulse: (!) 104 92 93 Resp: 18 18 Temp: 97.8 degrees F (36.6 degrees C) 97.8 degrees F (36.6 degrees C) 97.3 degrees F (36.3 degrees C) TempSrc: Oral Oral SpO2: 97% 100% Weight: Height: Intake/Output last 3 shifts: Intake/Output Summary (Last 24 hours) at 09/25/2025 1241 Last data filed at 09/24/20252034 Gross per 24 hour Intake 200 ml Output 225 ml Net -25 ml I/O last 3 completed shifts: In: 600 [P.O.:600] Out: 225 [Urine:225] General: No acute distress HEENT: Anicteric Neck: Supple CV: Regular rate, no murmurs or rubs. Lungs: CTA B Abd: hard abdominal wall edema Extr: + lower extremity edema Neuro: No myoclonus, alert and oriented x 3 Skin : No new rashes Dialysis access: PD catheter CDI Right AV fistula with thrill and bruit Results/Medications Reviewed 09/25/25 12:41 PM: Laboratory (more content not included)...[facility]11-11-2025 NoteHMS PROGRESS NOTE Patient name: Lorenzo Amato Date of : 1970 Assessment and plan Lorenzo Amato is a 54 y.o. male patient of Lion Carlson MD with history of anemia, CAD, depression, diabetes mellitus, GERD, dyslipidemia, hypertension, MS, morbid obesity, NABOR, presented to [facility] on 09/19/2025 with abdominal pain and concern for cellulitis by nephrology Calcified sever aortic stenosis Acute on chronic HFrEF CAD venous thromboembolism DVT x 2 IVC filter 2009 Echo 09/20 EF 36%, grade 2 HFpEF, moderate to severe aortic stenosis Heart cath 06/20/2024 shows severe three-vessel coronary artery disease -> CABAG was declined then Heart cath done 09/21-> high grade in-stent restenosis of Ostial LCX. 100% occluded ISR of D1 (new). Patent stents in LAD with no significant ISR. CTS on board for evaluation of -> pt declining open heart Continue with Plavix Cardiology following - discussed, plan for TAVR procedure for Wednesday09/26/2025 Held eliquis started heparin gtt 09/24 Abdominal wall edema/anasarca ESRD on PD Has been having peritoneal dialysis since beginning this year, Does have a functional HD fistula as well reviously on HD 06-24 CT abdomen 09/19 Anasarca present throughout. 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 Held Eliquis, started Heparin gtt 09/24 Poorly controlled type II diabetes mellitus Pt has insulin pump, check blood glucose [facility]. Keep BG 140 and 180 Endocrinology on board, defer management of DM / hyperglycemia to them MS Morbid obesity NABOR BMI 43.56 Lifestyle modification advised to the patient CPAP at nighttime. Discharge planning Medically ready for discharge: no Patient and/or family has been notified they are expected to be medically stable for discharge on the following date:TBD Patient requires continued hospitalization due to: TAVR Discussed with the patient and/or family that the following is a potential discharge location, understanding that the final plan will depend on the patient's progress and shared decision-making: Home The following resources have been ordered to assist with discharge barriers: care management Quality measures DVT prophylaxis: heparin gtt Bill catheter: absent Code status Full Code Subjective Seen in bed, no acute events, ready for procedure michael Objective BP (!) 92/59 (BP Location: Left arm, Patient Position: Lying) Pulse 92 Temp 97.3 degrees F (36.3 degrees C) (Oral) Resp 18 Ht 5' 9 Wt 129.4 kg (285 lb 4.4 oz) SpO2 100% BMI 42.13 kg/m General appearance: alert; chronically ill appearing; in no acute distress HEENT: Head- normocephalic; Eyes- EOMI, sclera anicteric; Throat- mucous membranes moist Cardiovascular: regular rate and rhythm; normal S1, S2; no murmurs, rubs, clicks or gallops; peripheral edema present Respiratory: lungs clear to auscultation; without wheezes, rales or rhonchi; on CPAP Abdomen: soft, non-tender, non-distended Neurological: oriented x 3; normal speech; no focal findings or movement disorder noted Musculoskeletal: no significant deformity or tenderness to palpation Skin: normal coloration Psych: normal mood and affect AUTHENTICATED BY JEANE NAZARIO ON 09/25/2025 11:51:[address] [place] [address] 09-25-2025 [facility] NOTE CARDIOVASCULAR & METABOLIC PROBLEMS LFLG Calcific aortic stenosis --- M mmHg, V-max: 2.9 m/s, and СЕРГЕЙ: 0.9 cm . SVI: 20 mL/m Acute on chronic HFrEF --- ACC C, LVEF: 36% Coronary artery disease --- PCI of LM into LAD [02/2025], proximal LAD/diagonal [06/2024], mid LAD [2018], LCx/OM [2006] Hypertension Hyperlipidemia Venous thromboembolic disease --- DVT x 2 s/p IVC filter [2010] Diabetes mellitus --- A1c: 11% End-stage renal disease --- on PD Gastric carcinoid tumor with mets to the liver --- on octreotide since 2012 ASSESSMENT & PLAN: Pleasant 55-year-old gentleman who was admitted with acute decompensated heart failure with reduced EF in the setting of severe aortic stenosis. He continues to have significant edema lower abdomen to his feet. He states that overall he is feeling improved with less edema. He is on PD therapy. Blood pressures continue to be soft and he is on midodrine 10 mg 3 times a day. His Eliquis therapy has been placed on hold and he is on IV heparin therapy currently. He is scheduled tomorrow for TF TAVR with IVR and conscious sedation with planned Medtronic valve. No surgical bailout. Panorex x-ray completed yesterday reviewed with Dr. Singh. He is aware of dental caries involving the right central and lateral maxillary incisor with no apical lucency/abscess identified. Continue current medications. Will start IV antibiotic therapy tonight. N.p.o. after midnight. Current Outpatient Medications Medication Instructions acetaminophen (TYLENOL) 1,000 mg, Oral, Every 6 hours PRN atorvastatin (LIPITOR) 80 mg, Oral, Nightly buPROPion (WELLBUTRIN) 75 mg, Oral, 2 times daily busPIRone (BUSPAR) 15 mg, 3 times daily clopidogreL (PLAVIX) 75 mg, Oral, Every morning DULoxetine (CYMBALTA) 60 mg, Oral, Every morning Eliquis 5 mg, Oral, 2 times daily ergocalciferol, vitamin D2, 50 mcg (2,000 unit) cap 1 capsule, Oral, Daily fluticasone propionate (FLONASE) 50 mcg/actuation nasal spray 2 sprays, Nasal, Daily PRN furosemide (LASIX) 80 mg, Oral, 2 times daily gentamicin (GARAMYCIN) 0.3 % ophthalmic solution by Other route See Admin Instructions 1 TO 2 drops topically to PERITONEAL DIALYSIS EXIT SITE once daily if needed . glucagon 1 mg, Intramuscular, As needed insulin lispro (AdmeLOG,HumaLOG) 100 unit/mL injection Via insulin pump meclizine (ANTIVERT) 25 mg, Oral, 3 times daily PRN metoprolol succinate (TOPROL-XL) 100 mg, Oral, 2 times daily nitroGLYCERIN (NITROSTAT) 0.4 mg, Sublingual, Every 5 min PRN, , if no relief after 3 doses call 911 octreotide ER (SANDOSTATIN LAR DEPOT) 30 mg, Intramuscular, Every 28 days pantoprazole (PROTONIX) 40 mg, Oral, 2 times daily sacubitriL-valsartan (ENTRESTO) 24-26 mg per tablet 1 tablet, Oral, 2 times daily, Hold for systolic < 95 senna-docusate (SENNA-S) 8.6-50 mg 1 tablet, Oral, 2 times daily PRN SUBCUTANEOUS INSULIN PUMP MISC Miscellaneous triamcinolone (KENALOG) 0.1 % cream Apply topically 2 (two) times a day as needed . CARDIAC DIAGNOSTICS ECG (I independently reviewed EKG and revealed, Sinus rhythm first-degree AV block, incomplete left bundle branch block, ST and T wave changes inferior. Prolonged QT 4 and 72 ms. MT interval 222 ms.): 09/24/25 OBJECTIVES BP (!) 92/59 (BP Location: Left arm, Patient Position: Lying) Pulse 92 Temp 97.3 degrees F (36.3 degrees C) (Oral) Resp 18 Ht 5' 9 Wt 129.4 kg (285 lb 4.4 oz) SpO2 100% BMI 42.13 kg/m General Appearance: Chronically ill-looking male. Not in acute distress. Wearing BiPAP Respiratory: good air entry bilaterally. No wheeze or crackles. Cardiovascular: good peripheral pulses. JVP is difficult to assess given body habitus and positioning. Regular rate and rhythm. Normal S1 diminished S2. +3/6 systolic murmur. Abdomen: Obese, distended but nontender JUDY: bilateral pitting edema lower extremity extending to lower part of abdomen. Skin: no rash. No cyanosis. No clubbing of fingers. Does have some ecchymosis to right lower abdomen, left forearm. Jm Tellez, MSN, PROCESS OWNER, CLAIMS ADJUSTOR Interventional Cardiology/Structural Heart Disease Team [facility] AUTHENTICATED BY JM TELLEZ, ON 09/25/2025 16:51:20[facility] 09-25-2025 History of Present illness Narrative* Jessy Byrne, ALEJANDRO - 09/25/2025 11:11 AM EST [facility] note-pt noted to have positive antibodies on type and screen completed 09/24/25. Spoke with Bailey in blood bank, who reports they have 2 units of PRBCs ready for tavr procedure tomorrow. documented in this [id number] NoteGeneral Cardiology Inpatient Follow-up Heart & Vascular [facility] 09/25/2025 Hali Harley CNP [facility] Patient: Lorenzo Amato Date of : 1970 (55 y.o.) PCP: Lion Carlson MD Primary assembly adjuster: Cecy Assessment/Plan: CARDIOVASCULAR & METABOLIC PROBLEMS LFLG Calcific aortic stenosis --- M mmHg, V-max: 2.9 m/s, and СЕРГЕЙ: 0.9 cm . 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 His aortic stenosis deemed to be borderline moderate to severe, and visually look severely restricted. He has a very loud precordial murmur with absent S2. He presented with anasarca and also abdominal pain. Received 2 doses of IV antibiotics but abdominal pain deemed not due to peritonitis. He was started on a lidocaine patch for pain control. His volume status is managed by industrial hygienist. He remains hypervolemic, but clinically improving on exam with more aggressive UF. Blood pressures remain soft to hypotensive. His afterload therapy has been on hold. He was on ANRi and BB at home. Left heart catheterization on 09/21/2025 showed markedly elevated left and right ventricular filling pressures. Severe aortic stenosis, severe pulmonary hypertension. Tentative plan per structural heart team is TAVR 09/26/2025. Femoral access, RN conscious sedation, Evolut valve, no sentinel no surgical bailout. Continue to hold Eliquis. Continue heparin infusion. Volume management per nephrology [peritoneal dialysis] Continue to hold afterload therapy due to hypotension Continue Plavix and statin therapy for his coronary artery disease N.p.o. after midnight Further plan regarding TAVR per structural heart team Subjective Patient seen at bedside, endorses mild improvement in shortness of breath, abdominal distention and lower extremity edema. Denies chest pain or discomfort. Telemetry independently reviewed: Sinus rhythm first degree AVB and wide QRS with heart rate 80s-90s Echocardiogram Complete Final Result by Dequan Stahl MD (09/20/2025 1131) Echo limited Final Result by Rui Vasquez MD (06/21/2024 1424) Echocardiogram complete w contrast Final Result by Rui Vasquez MD (06/16/2024 1113) Cardiac Catheterization Final Result by Warren Jean MD (09/21/2025 1714) Review of Systems: The following system(s) were reviewed and negative. Pertinent positive and negative findings are noted in the HPI. [x] Const [x] Eyes [x] ENT [] Resp [] CV [x] GI [x] [x] Neuro [x] Musc [x] Skin [x] Psych [x] Endo [x] Allergy [x] Heme/Lymph Current Medications[1] Objective: Physical Examination: BP (!) 92/59 (BP Location: Left arm, Patient Position: Sitting) Pulse (!) 104 Temp 97.8 degrees F (36.6 degrees C) Resp 18 Ht 5' 9 Wt 129.4 kg (285 lb 4.4 oz) SpO2 97% BMI 42.13 kg/m Constitutional: Alert, chronically ill-appearing male, not in acute distress.? Eyes: Conjunctivae/corneas clear. Lungs: Wearing BiPAP at the time of my exam clear to auscultation, no wheezes, rales or rhonchi. Cardiovascular: Controlled rate and regular rhythm, S1 and S2 normal, + systolic murmur, bilateral pitting lower extremity edema that extends to the upper thighs, distended abdomen, JVP difficult to assess due to body habitus Abdomen: Distended, nontender with normal active bowel sounds Skin: Normal coloration and turgor; no rashes or lesions noted to exposed skin, ecchymosis to right lower abdomen Musculoskeletal: Moves all extremities Psych: Oriented to time, person, and place; appropriate mood. No results found for: CHOL , LDLCALC , LDLDIRECT , TRIG , HDL Serum creatinine: 7.39 mg/dL (H) 09/25/25 0414 Estimated creatinine clearance: 11.2 mL/min (A) Lab Results Component Value Date GLUCOSE 246 (H) 09/25/2025 CALCIUM 8.4 09/25/2025 NA 131 (L) 09/25/2025 K 3.6 09/25/2025 CL 88 (L) 09/25/2025 BUN 51 (H) 09/25/2025 CREATININE 7.39 (H) 09/25/2025 Lab Results Component Value Date WBC 9.96 09/25/2025 HGB 8.0 (L) 09/25/2025 HCT 27.8 (L) 09/25/2025 MCV 96.2 09/25/2025 PLT 326 09/25/2025 RBC 2.89 (L) 09/25/2025 Please excuse any typographical errors as dictation software was used Hali Harley, MSN, PROCESS OWNER, GREEN END WORKER-C, GIN POLE OPERATOR, ECG-BC General Cardiology [facility] [1] Current Facility-Administered Medications Medication Dose Route Frequency Provide (more content not included)...[facility]11-11-2025 NoteDate of admission: 09/19/2025 Admission diagnosis: Hyponatremia [E87.1] Anemia of chronic disease [D63.8] ESRD (end stage renal disease) (HCC) [N18.6] Abdominal wall cellulitis [L03.311] Abdominal pain, unspecified abdominal location [R10.9] No admission procedures for hospital encounter. Referring Provider: Gracie Miller MD Attending provider: [facility], Generic Primary Care Provider: Lion Carlson MD Chief Complaint/Reason for Consult: Hyperglycemia/DM management on insulin pump. History of Present Illness: Lorenzo Amato is a 55 y.o. year old male with hx of anemia, CAD, depression, diabetes mellitus, GERD, dyslipidemia, hypertension, MS, morbid obesity, NABOR, presented to [facility] on 09/19/2025 with abdominal pain and concern for cellulitis by nephrology. Patient reports bilateral flank/low abdomen pain. Denies CP, SOB, Nausea or vomiting. Reports fatigue. Patient had hypoglycemic event this AM with BG of 36. His insulin pump was held at that time. DM type: 2, diagnosed in approx 2003. Home regimen: (managed by Dr. Nowak, Student Services Advisor Stephanie KAMINSKI) Medtronic insulin pump with [email or web address] D[employer] eGifter Settings: Basal rates: 0000: 14 u/hr. Sensitivity: 0000: 1:5 Carb ratio 0000: 1:2 Reports instructed to take 15 units with each meals, however not doing frequently. Home sugars: He is checking his blood sugars via CGM Pump reviewed over last 14 and 30 days. Average BG between 285-320 TDI in last 14 days averaging 34.1 units per day Basal: 31.95; Bolus: 2.15. Last A1c was 11.2 on 09/19. Current GFR is 9. Diabetes Complications: Eyes: Pos, last fundus exam was in last 12 months Renal: Pos, on PD, follows with nephrology for ESRD Neuropathy: Pos, numbness in feet Current inpatient regimen: Insulin pump on hold. INFUSIONS: heparin infusion (weight based dosing) 8 Units/kg/hr (09/25/25 0537) heparin Past Medical History: Diagnosis Date Anemia Arthritis Cancer (HCC) Coronary artery disease COVID Depression with anxiety Diabetes mellitus, type 2 (HCC) Dyspnea on exertion Gastric tumor Neuroendocrine tumor - takes Sandostatin - inoperable GERD (gastroesophageal reflux disease) Hyperlipidemia Hypertension MS (multiple sclerosis) Myocardial infarction (HCC) 09/2006 Obesity NABOR (obstructive sleep apnea) wears CPAP Proteinuria Rash Stage 5 chronic kidney disease (HCC) not on dialysis...LEGAL ASSOCIATE: Dr. Gracie Miller Venous embolism lungs and legs Vitamin D deficiency Past Surgical History: Procedure Laterality Date APPENDECTOMY CARDIAC CATHETERIZATION N/A 06/21/2024 Procedure: Coronary Angiogram; Surgeon: Melba Singh MD; 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; Service: Cardiovascular CARDIAC CATHETERIZATION N/A 06/21/2024 Procedure: Angioplasy w/Stent- Coronary; Surgeon: Melba Singh MD; Location: 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; Service: Cardiovascular CARDIAC CATHETERIZATION N/A 06/21/2024 Procedure: Angioplasty - Intravascular Lithotripsy - Coronary; Surgeon: Melba Singh MD; Location: 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; Service: Cardiovascular CARDIAC CATHETERIZATION N/A 09/21/2025 Procedure: Left and Right Heart Cath; Surgeon: Warren Jean MD; Location: 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; Service: Cardiovascular; Laterality: N/A; Please note: RUE fistula CARDIAC CATHETERIZATION N/A 09/21/2025 Procedure: Coronary Angiogram; Surgeon: Warren Jean MD; 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; Service: Cardiovascular; Laterality: N/A; COLONOSCOPY last was 2014, polyps, done in [place], 2 procdures CORONARY ANGIOPLASTY WITH STENT PLACEMENT has had 2 surgeries, 2019 most recent CV IR INTERVENTIONAL RADIOLOGY N/A 06/16/2024 Procedure: VR Dialysis Cath Insert Tunnel; Surgeon: Dariusz Modi MD; Location: IR LAB; Service: Interventional Radiology; Laterality: N/A; ESOPHAGOGASTRODUODENOSCOPY last was done in [place], gastic tumor, INSULIN PUMP AND GLUCOSE SENSOR IR IVC FILTER PLACEMENT 2012 for Blood clots MT L HRT CATH W/NJX L VENTRICULOGRAPHY IMG S&I N/A 06/21/2024 Procedure: Left Heart Cath; Surgeon: Melba Singh MD; Location: 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; Service: Cardiovascular MT LAPS INSERTION TUNNELED INTRAPERITONEAL CATHETER N/A 05/19/2024 PD cath, [facility].....Dr. Brian Arevalo TATTOO TEETH EXTRACTION TRANSFUSION BLOOD PRODUCT VASECTOMY Social History[1] Family History Problem Relation Age of Onset Uterine cancer Mother Heart disease Father Diabetes Maternal Aunt Rheum arthritis Brother Coronary artery disease Brother Diabetes type I Grandson HEBER [facility] MEDS: Current Medications[2] ALLERGIES: Allergies[3] Review of Systems: As per subjective. Physical Exam: Vitals: BP (!) 92/59 (BP Location: Left arm, Patient Position: Sitting) Pulse (!) 104 Temp 97.8 degrees F (36.6 degrees C) Resp 18 Ht 5' 9 Wt 129.4 kg (285 lb 4.4 oz) SpO2 97% BMI 42.13 kg/m , Body mass index is 42.13 kg/m ., Wt Readings (more content not included)...[facility]11-10-2025 NoteHMS PROGRESS NOTE Patient name: Lorenzo Amato Date of : 1970 Assessment and plan Lorenzo Amato is a 54 y.o. male patient of Lion Carlson MD with history of anemia, CAD, depression, diabetes mellitus, GERD, dyslipidemia, hypertension, MS, morbid obesity, NABOR, presented to [facility] on 09/19/2025 with abdominal pain and concern for cellulitis by nephrology Abdominal wall edema/anasarca ESRD on PD Has been having peritoneal dialysis since beginning this year, Does have a functional HD fistula as well reviously on HD 06-24 CT abdomen 09/19 Anasarca present throughout. S/p ceftriaxone in the ED, DC as there is no concern of Infection or cellulitis Peritoneal fluid analysis negative, peritoneal fluid culture negative, blood cultures negative, Nephrology on board-> managing peritoneal dialysis, using high dextrose dose causing hyperglycemia, no need to switch to HD Endocrinology on Board for hyperglycemia, DM management in setting of insulin pump, increased NPH from 15 U at night to 25 -> please notify endocrinology if any hypoglycemia noted Calcified sever aortic stenosis Acute on chronic HFrEF Hx CAD Hx venous thromboembolism DVT x 2 IVC filter 2009 Echo 09/20 EF 36%, grade 2 HFpEF, moderate to severe aortic stenosis Heart cath 06/20/2024 shows severe three-vessel coronary artery disease -> CABAG was declined then Heart cath done 09/21-> high grade in-stent restenosis of Ostial LCX. 100% occluded ISR of D1 (new). Patent stents in LAD with no significant ISR. 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 Held Eliquis, started Heparin gtt 09/24 Poorly controlled type II diabetes mellitus Pt has insulin pump, check blood glucose HLHS. Keep BG 140 and 180 Endocrinology on board, defer management of DM / hyperglycemia to them MS Morbid obesity NABOR BMI 43.56 Lifestyle modification advised to the patient CPAP at nighttime. Discharge planning Medically ready for discharge: no Patient and/or family has been notified they are expected to be medically stable for discharge on the following date:TBD Patient requires continued hospitalization due to: nephrology, CTS and cardiology Rercs, pending improvement in his vol status Discussed with the patient and/or family that the following is a potential discharge location, understanding that the final plan will depend on the patient's progress and shared decision-making: Home The following resources have been ordered to assist with discharge barriers: care management Quality measures DVT prophylaxis: heparin gtt Bill catheter: absent Code status Full Code Subjective Sleeping comfortable, no medical complaints, reports stomach gas Objective BP 101/60 Pulse (!) 105 Temp 97.3 degrees F (36.3 degrees C) (Oral) Resp 18 Ht 5' 9 Wt 129.4 kg (285 lb 4.4 oz) SpO2 98% BMI 42.13 kg/m General appearance: alert; chronically ill appearing; in no acute distress HEENT: Head- normocephalic; Eyes- EOMI, sclera anicteric; Throat- mucous membranes moist Cardiovascular: regular rate and rhythm; normal S1, S2; no murmurs, rubs, clicks or gallops; peripheral edema present Respiratory: lungs clear to auscultation; without wheezes, rales or rhonchi; on CPAP Abdomen: soft, non-tender, non-distended Neurological: oriented x 3; normal speech; no focal findings or movement disorder noted Musculoskeletal: no significant deformity or tenderness to palpation Skin: normal coloration Psych: normal mood and affect AUTHENTICATED BY YURI REAL, ON 09/24/2025 16:07:24[facility] 09-24-2025 NoteNEPHROLOGY PROGRESS NOTE [facility] Patient Name: Lorenzo Amato Admit Date: [id number] MR #: [id number] : 1970 Perpetual Assessment: Lorenzo Amato is a 55 y.o. male on hospital day 5 admitted for abdominal wall swelling We are asked to evaluate and manage end-stage kidney disease management Impression and Plan: End-stage kidney disease on CAPD with Dr. Carline Miller Previously on HD from June to August 2024 -EDW of 130kg Last 24hr urine collection of 600 cc which was a significant decrease in urine output from previous 24-hour collection Outpatient PD prescription: Manual exchanges, 4 cycles, 2-1/2 L fill volume, 2.5% dextrose solution Previously euvolemic and then patient became hypervolemic in the setting of decompensated heart failure from severe aortic stenosis. On 09/19, cycler PD prescription with 6 cycles, 2.5% dextrose solution, 6 cycles, over 12 hours PD 09/20 with 3 L volume removal with post PD weight of 131 kg PD 09/21 with 1.5 L volume removal with post PD weight of 130 kg PD 09/22 with 2.8 L PD 09/23 with 4.38 L volume removal after doing total volume of 15 L, 18 hours, 3 bags of 2.5% and 2 bags of 4.25%. Will continue with this prescription overnight. PD 09/24 with 4.4 L volume removal Patient continuously has documented hypotension. As expected his residual renal function appears to be dropping; he only had about 150 cc of urine output overnight. This is in the setting of 2 IV contrast loads and severe aortic stenosis. Hemodialysis will not UF as much fluid as we did in the last 48 hours on PD in light of his severe aortic stenosis and hypotension. He has lost residual renal function and near anuric. Ultimately his volume status will be corrected with improvement in hemodynamics status post aortic valve replacement. In addition if we are able to ultrafiltrate on PD it is preferred modality in light of his severe aortic stenosis and associated hypotension Reassuringly he does not have uremic symptoms. 2. Abdominal wall edema - Due to anasarca 2D echo on 09/20 showing EF 36%, grade 2 HFpEF, moderate to severe aortic stenosis -Contrast-enhanced CT abdomen pelvis did not show EPS -Peritoneal fluid cell count negative for peritonitis -We started lidocaine patch for pain control 09/22. Patient reports relief. Continue with this medication and like will need to be discharged on it. 3. Decompensated heart failure with EF 36%, grade 2 HFpEF, with moderate to severe -Continue to hold Entresto, metoprolol for now -[facility] in January 2025 showed severe multivessel CAD. Repeat heart catheterization shows high grade in-stent restenosis of Ostial LCX. 100% occluded ISR of D1 (new). Patent stents in LAD with no significant ISR. -Near anuric. -Continue midodrine 10 mg 3 times daily -Per CT surgery he is not a surgical candidate for open heart surgery. He is not a candidate for surgical bailout in case of catastrophic complications during any catheter-based intervention. 5. Acute hypervolemic hyponatremia Expect this to improve with more aggressive UF as above 6. Metabolic acidosis Cont sodium bicarbonate 650 mg 3 times a day 7. 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 Historically poorly controlled type 2 diabetes A1c of 11%. Follows with endocrinology outpatient setting. Appreciate endocrinology involvement during this hospitalization 9. Anemia: Due to iron deficiency and CKD - Will give Venofer. Will give pushes to minimize fluid intake -Will give GENARO Subjective: No events overnight. Long discussion with patient and at bedside. Pt c/o gas in stomach. Review of Systems: ROS otherwise reviewed and negative Physical Examination: Vitals: Vitals: 09/24/25 0602 09/24/25 0748 09/24/25 1217 09/24/25 1224 BP: (!) 92/59 93/60 107/69 BP Location: Pulse: 97 96 (!) 101 Resp: 18 18 18 Temp: (!) 96.3 degrees F (35.7 degrees C) 97.3 degrees F (36.3 degrees C) TempSrc: Axillary Oral SpO2: 100% 95% Weight: Height: Intake/Output last 3 shifts: Intake/Output Summary (Last 24 hours) at 09/24/2025 1258 Last data filed at 09/24/2025 0434 Gross per 24 hour Intake 900 ml Output -- Net 900 ml I/O last 3 completed shifts: In: 1620 [P.O.:1620] Out: - General: No acute distress HEENT: Anicteric Neck: Supple CV: Regular rate, no murmurs or rubs. Lungs: CTA B Abd: hard abdominal wall edema Extr: + lower extremity edema Neuro: No myoclonus, alert and oriented x 3 Skin : No new rashes Dialysis access: PD catheter CDI Right AV fistula with thrill and bruit Results/Medications Reviewed 09/24/25 12:58 PM: Laboratory, Microbiology, Pathology, Radiology, Cardiology, Medications and Transcriptions reviewed Scheduled Meds: apixaban 5 mg Oral BID atorvastatin 80 mg Oral Nightly buPROPion 75 mg Oral BID busPIRone 15 mg Oral (more content not included)...[facility]11-10-2025 NoteGeneral Cardiology Inpatient Follow-up Heart & Vascular [facility] 09/24/2025 Hali Harley, MARIA EUGENIA [facility] Patient: Lorenzo Amato Date of : 1970 (55 y.o.) PCP: Lion Carlson MD Primary assembly adjuster: Cecy Assessment/Plan: CARDIOVASCULAR & METABOLIC PROBLEMS LFLG Calcific aortic stenosis --- M mmHg, V-max: 2.9 m/s, and СЕРГЕЙ: 0.9 cm . 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 His aortic stenosis deemed to be borderline moderate to severe, and visually look severely restricted. He has a very loud precordial murmur with absent S2. He presented with anasarca and also less abdominal pain. Received 2 doses of IV antibiotics but abdominal pain deemed not due to peritonitis but due to peritoneal dialysis. His volume status is managed by industrial hygienist. He remains hypervolemic. Blood pressures soft to hypotensive. His afterload therapy has been on hold. He was on ANRi and BB at home. Currently undergoing further workup of aortic stenosis status post invasive hemodynamic study and left heart catheterization on 09/21/2025. Which showed markedly elevated left and right ventricular filling pressures. Severe aortic stenosis, severe pulmonary hypertension. Ultimately, if he has severe aortic stenosis, he would need AVR likely with TAVR as he will be high surgical risk. Volume management per nephrology [peritoneal dialysis] Continue to hold afterload therapy due to hypotension Continue Plavix and statin therapy for his coronary artery disease CT TAVR planned for today Further plan regarding AVR per structural heart team Subjective Patient seen at bedside, endorses mild improvement in shortness of breath, complains of abdominal distention and continued lower extremity edema. Denies chest pain or discomfort. Reports last bowel movement was yesterday. Telemetry independently reviewed: Sinus rhythm heart rate 80s-90s Echocardiogram Complete Final Result by Dequan Stahl MD (09/20/2025 1131) Echo limited Final Result by Rui Vasquez MD (06/21/2024 1424) Echocardiogram complete w contrast Final Result by Rui Vasquez MD (06/16/2024 1113) Cardiac Catheterization Final Result by Warren Jean MD (09/21/2025 1714) Review of Systems: The following system(s) were reviewed and negative. Pertinent positive and negative findings are noted in the HPI. [x] Const [x] Eyes [x] ENT [] Resp [] CV [x] GI [x] [x] Neuro [x] Musc [x] Skin [x] Psych [x] Endo [x] Allergy [x] Heme/Lymph Current Medications[1] Objective: Physical Examination: BP 93/60 Pulse 96 Temp 97.3 degrees F (36.3 degrees C) (Oral) Resp 18 Ht 5' 9 Wt 129.4 kg (285 lb 4.4 oz) SpO2 95% BMI 42.13 kg/m Constitutional: Alert, chronically ill-appearing male, not in acute distress.? Eyes: Conjunctivae/corneas clear. Lungs: Wearing BiPAP at the time of my exam clear to auscultation, no wheezes, rales or rhonchi. Cardiovascular: Controlled rate and regular rhythm, S1 and S2 normal, + systolic murmur, bilateral lower leg with +1 pitting edema upper legs with +2 pitting edema, distended abdomen, JVP difficult to assess due to body habitus Abdomen: Distended, nontender with normal active bowel sounds Skin: Normal coloration and turgor; no rashes or lesions noted to exposed skin, ecchymosis to right lower abdomen Musculoskeletal: Moves all extremities Psych: Oriented to time, person, and place; appropriate mood. No results found for: CHOL , LDLCALC , LDLDIRECT , TRIG , HDL Serum creatinine: 7.33 mg/dL (H) 09/24/25 0500 Estimated creatinine clearance: 11.3 mL/min (A) Lab Results Component Value Date GLUCOSE 160 (H) 09/24/2025 CALCIUM 8.3 (L) 09/24/2025 NA 133 (L) 09/24/2025 K 3.5 09/24/2025 CL 91 (L) 09/24/2025 BUN 53 (H) 09/24/2025 CREATININE 7.33 (H) 09/24/2025 Lab Results Component Value Date WBC 10.55 09/24/2025 HGB 7.8 (L) 09/24/2025 HCT 25.8 (L) 09/24/2025 MCV 94.2 09/24/2025 PLT 320 09/24/2025 RBC 2.74 (L) 09/24/2025 Please excuse any typographical errors as dictation software was used Hali Harley, MSN, PROCESS OWNER, GREEN END WORKER-C, GIN POLE OPERATOR, ECG-BC General Cardiology [facility] [1] Current Facility-Administered Medications Medication Dose Route Frequency Provider Last Rate Last Admin acetaminophen (TYLENOL) tablet 975 mg 975 mg Oral Q8H MT (more content not included)...[facility]11-10-2025 NoteDate of admission: 09/19/2025 Admission diagnosis: Hyponatremia [E87.1] Anemia of chronic disease [D63.8] ESRD (end stage renal disease) (HCC) [N18.6] Abdominal wall cellulitis [L03.311] Abdominal pain, unspecified abdominal location [R10.9] No admission procedures for hospital encounter. Referring Provider: Gracie Miller MD Attending provider: [facility], Generic Primary Care Provider: Lion Carlson MD Chief Complaint/Reason for Consult: Hyperglycemia/DM management on insulin pump. History of Present Illness: Lorenzo Amato is a 55 y.o. year old male with hx of anemia, CAD, depression, diabetes mellitus, GERD, dyslipidemia, hypertension, MS, morbid obesity, NABOR, presented to [facility] on 09/19/2025 with abdominal pain and concern for cellulitis by nephrology. Patient reports bilateral flank/low abdomen pain. Denies CP, SOB, Nausea or vomiting. Reports fatigue. Patient had hypoglycemic event this AM with BG of 36. His insulin pump was held at that time. DM type: 2, diagnosed in approx 2003. Home regimen: (managed by Dr. Nowak, Student Services Advisor Stephanie KAMINSKI) [employer] insulin pump with [employer] Settings: Basal rates: 0000: 14 u/hr. Sensitivity: 0000: 1:5 Carb ratio 0000: 1:2 Reports instructed to take 15 units with each meals, however not doing frequently. Home sugars: He is checking his blood sugars via CGM Pump reviewed over last 14 and 30 days. Average BG between 285-320 TDI in last 14 days averaging 34.1 units per day Basal: 31.95; Bolus: 2.15. Last A1c was 11.2 on 09/19. Current GFR is 9. Diabetes Complications: Eyes: Pos, last fundus exam was in last 12 months Renal: Pos, on PD, follows with nephrology for ESRD Neuropathy: Pos, numbness in feet Current inpatient regimen: Insulin pump on hold. 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 Gracie Miller Venous embolism lungs and legs Vitamin D deficiency Past Surgical History: Procedure Laterality Date APPENDECTOMY CARDIAC CATHETERIZATION N/A 06/21/2024 Procedure: Coronary Angiogram; Surgeon: Melba Singh MD; Location: 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; Service: Cardiovascular CARDIAC CATHETERIZATION N/A 06/21/2024 Procedure: Angioplasy w/Stent- Coronary; Surgeon: Melba Singh MD; Location: 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; Service: Cardiovascular CARDIAC CATHETERIZATION N/A 06/21/2024 Procedure: Angioplasty - Intravascular Lithotripsy - Coronary; Surgeon: Melba Singh MD; Location: 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; Service: Cardiovascular CARDIAC CATHETERIZATION N/A 09/21/2025 Procedure: Left and Right Heart Cath; Surgeon: Warren Jean MD; Location: 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; Service: Cardiovascular; Laterality: N/A; Please note: RUE fistula CARDIAC CATHETERIZATION N/A 09/21/2025 Procedure: Coronary Angiogram; Surgeon: Warren Jean MD; 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; Service: Cardiovascular; Laterality: N/A; COLONOSCOPY last was 2014, polyps, done in [place], 2 procdures CORONARY ANGIOPLASTY WITH STENT PLACEMENT has had 2 surgeries, 2019 most recent CV IR INTERVENTIONAL RADIOLOGY N/A 06/16/2024 Procedure: VR Dialysis Cath Insert Tunnel; Surgeon: Dariusz Modi MD; Location: IR LAB; Service: Interventional Radiology; Laterality: N/A; ESOPHAGOGASTRODUODENOSCOPY last was done in [place], gastic tumor, INSULIN PUMP AND GLUCOSE SENSOR IR IVC FILTER PLACEMENT 2012 for Blood clots MT L HRT CATH W/NJX L VENTRICULOGRAPHY IMG S&I N/A 06/21/2024 Procedure: Left Heart Cath; Surgeon: Melba Singh MD; Location: 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; Service: Cardiovascular MT LAPS INSERTION TUNNELED INTRAPERITONEAL CATHETER N/A 05/19/2024 PD cath, [facility].....Dr. Brian Arevalo TATTOPj TEETH EXTRACTION TRANSFUSION BLOOD PRODUCT VASECTOMY Social History[1] Family History Problem Relation Age of Onset Uterine cancer Mother Heart disease Father Diabetes Maternal Aunt Rheum arthritis Brother Coronary artery disease Brother Diabetes type I Grandson [facility] MEDS: Current Medications[2] ALLERGIES: Allergies[3] Review of Systems: As per subjective. Physical Exam: Vitals: BP 93/60 Pulse 96 Temp 97.3 degrees F (36.3 degrees C) (Oral) Resp 18 Ht 5' 9 Wt 129.4 kg (285 lb 4.4 oz) SpO2 95% BMI 42.13 kg/m , Body mass index is 42.13 kg/m ., Wt Readings from Last 3 Encounters: 09/23/25 129.4 kg (285 lb 4.4 oz) 06/22/24 130 kg (286 lb 11.2 oz) 06/12/24 (!) 138.3 kg (305 lb) Vit (more content not included)...[facility]11-09-2025 NoteHMS PROGRESS NOTE Patient name: Lorenzo Amato Date of : 1970 Assessment and plan Lorenzo Amato is a 54 y.o. male patient of Lion Carlson MD with history of anemia, CAD, depression, diabetes mellitus, GERD, dyslipidemia, hypertension, MS, morbid obesity, NABOR, presented to [facility] on 09/19/2025 with abdominal pain and concern for cellulitis by nephrology Abdominal wall edema/anasarca ESRD on PD Has been having peritoneal dialysis since beginning this year, Does have a functional HD fistula as well. CT abdomen 09/19 Anasarca present throughout. S/p ceftriaxone in the ED, Peritoneal fluid analysis negative, peritoneal fluid culture negative, blood cultures negative, no further need for antibiotics for now Nephrology on board-> managing peritoneal dialysis, low threshold to consider CRRT Endocrinology on Board for /hyperglycemia, DM management in setting of insulin pump Calcified aortic stenosis Acute on chronic HFrEF Hx CAD Hx venous thromboembolism DVT x 2 IVC filter 2009 Echo 09/20 EF 36%, grade 2 HFpEF, moderate to severe aortic stenosis Heart cath 06/20/2024 shows severe three-vessel coronary artery disease -> CABAG was declined then Heart cath done 09/21-> high grade in-stent restenosis of Ostial LCX. 100% occluded ISR of D1 (new). Patent stents in LAD with no significant ISR. 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 Continue Eliquis Poorly controlled type II diabetes mellitus Pt has insulin pump, check blood glucose [facility]. Keep BG 140 and 180 Endocrinology on board MS Morbid obesity NABOR BMI 43.56 Lifestyle modification advised to the patient CPAP at nighttime. Discharge planning Medically ready for discharge: no Patient and/or family has been notified they are expected to be medically stable for discharge on the following date:TBD Patient requires continued hospitalization due to: nephrology CTS and cardiology Rercs, pending improvement in his vol status Discussed with the patient and/or family that the following is a potential discharge location, understanding that the final plan will depend on the patient's progress and shared decision-making: Home The following resources have been ordered to assist with discharge barriers: care management Quality measures DVT prophylaxis: eliquis Bill catheter: absent Code status Full Code Subjective Sleeping comfortable, no medical complaints Objective BP 97/64 Pulse 97 Temp 98.1 degrees F (36.7 degrees C) (Oral) Resp 18 Ht 5' 9 Wt 129.4 kg (285 lb 4.4 oz) SpO2 99% BMI 42.13 kg/m General appearance: alert; chronically ill appearing; in no acute distress HEENT: Head- normocephalic; Eyes- EOMI, sclera anicteric; Throat- mucous membranes moist Cardiovascular: regular rate and rhythm; normal S1, S2; no murmurs, rubs, clicks or gallops; peripheral edema present Respiratory: lungs clear to auscultation; without wheezes, rales or rhonchi; on CPAP Abdomen: soft, non-tender, non-distended Neurological: oriented x 3; normal speech; no focal findings or movement disorder noted Musculoskeletal: no significant deformity or tenderness to palpation Skin: normal coloration Psych: normal mood and affect AUTHENTICATED BY YURI REAL, ON 09/23/2025 17:10:[address] [place] [address] 09-23-2025 NoteGeneral Cardiology Inpatient Follow-up Heart & Vascular [facility] 09/23/2025 Tomasa Toro, [facility] Patient: Lorenzo Amato Date of : 1970 (55 y.o.) PCP: Lion Carlson MD Primary assembly adjuster: Assessment/Plan: CARDIOVASCULAR & METABOLIC PROBLEMS LFLG Calcific aortic stenosis --- M mmHg, V-max: 2.9 m/s, and СЕРГЕЙ: 0.9 cm . 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 His aortic stenosis deemed to be borderline moderate to severe, and visually look severely restricted. He has a very loud precordial murmur with absent S2. He presented with anasarca and also less abdominal pain. Received 2 doses of IV antibiotics but abdominal pain deemed not due to peritonitis but due to peritoneal dialysis. His volume status is managed by industrial hygienist. He remains hypervolemic. blood pressures soft to hypotensive. His afterload therapy has been on hold. He was on ANRi and BB at home. Currently undergoing further workup of aortic stenosis status post invasive hemodynamic study and left heart catheterization on 09/21/2025. Which showed markedly elevated left and right ventricular filling pressures. Severe aortic stenosis, severe pulmonary hypertension. Ultimately, if he has severe aortic stenosis, he would need AVR likely with TAVR as he will be high surgical risk. Volume management per nephrology [peritoneal dialysis] Continue to hold afterload therapy due to hypotension Continue Plavix and statin therapy for his coronary artery disease 4. CT TAVR planned for Wednesday Subjective Patient seen at bedside, he continues to have shortness of breath, abdominal distention and lower extremity edema. He states he is short of breath with ambulation. Telemetry independently reviewed: Sinus rhythm heart rate 88 Echocardiogram Complete Final Result by Dequan Stahl MD (09/20/2025 1131) Echo limited Final Result by Rui Vasquez MD (06/21/2024 1424) Echocardiogram complete w contrast Final Result by Rui Vasquez MD (06/16/2024 1113) Cardiac Catheterization Final Result by Warren Jean MD (09/21/2025 1714) Review of Systems: The following system(s) were reviewed and negative. Pertinent positive and negative findings are noted in the HPI. [x] Const [x] Eyes [x] ENT [] Resp [] CV [x] GI [x] [x] Neuro [x] Musc [x] Skin [x] Psych [x] Endo [x] Allergy [x] Heme/Lymph Current Medications[1] Objective: Physical Examination: BP (!) 86/52 Pulse 93 Temp (!) 96.3 degrees F (35.7 degrees C) (Axillary) Resp 18 Ht 5' 9 Wt 129.4 kg (285 lb 4.4 oz) SpO2 96% BMI 42.13 kg/m Constitutional: Alert, not in distress.? Eyes: Conjunctivae/corneas clear. Lungs: Wearing BiPAP at the time of my exam clear to auscultation, no wheezes, rales or rhonchi. Cardiovascular: Controlled rate and regular rhythm, S1 and S2 normal, systolic murmur noted, bilateral lower leg with +1 pitting edema upper legs with +2 pitting edema, distended abdomen, no JVD. Abdomen: Soft, nontender with normal active bowel sounds Skin: Normal coloration and turgor; no rashes or lesions noted to exposed skin. Musculoskeletal: Moves all extremities Psych: Oriented to time, person, and place; appropriate mood. No results found for: CHOL , LDLCALC , LDLDIRECT , TRIG , HDL Serum creatinine: 7.7 mg/dL (H) 09/23/25 0428 Estimated creatinine clearance: 10.7 mL/min (A) Please excuse any typographical errors as dictation software was used Tomasa Toro MSN, PROCESS OWNER, ANP-C [1] Current Facility-Administered Medications Medication Dose Route Frequency Provider Last Rate Last Admin acetaminophen (TYLENOL) tablet 975 mg 975 mg Oral Q8H PRN Dew, Jermaine, DO 975 mg at 09/23/25 0242 aluminum-magnesium hydroxide-simethicone (MAALOX PLUS) 200-200-20 mg/5 mL suspension 30 mL 30 mL Oral Q4H PRN Warren Jean MD apixaban (ELIQUIS) tablet 5 mg 5 mg Oral BID Warren Jean MD atorvastatin (LIPITOR) tablet 80 mg 80 mg Oral Nightly Dew, Jermaine, DO 80 mg at 09/22/25 2143 benzonatate (TESSALON) capsule 100 mg 100 mg Oral TID PRN Dew, Jermaine, DO buPROPion (WELLBUTRIN) tablet 75 mg 75 mg Oral BID Dew, Jermaine, DO 75 mg at 09/23/25 0842 busPIRone (BUSPAR) tablet 15 mg 15 mg Oral Q8H LUIS Dew, Jermaine, DO 15 mg at 09/23/25 0621 clopidogreL (PLAVIX) tablet 75 mg 75 mg Oral QAM Jermaine Pizarro DO 75 mg at 09/23/25 0829 DULoxetine (CYMBALTA) DR capsule 6 (more content not included)...[facility]11-09-2025 NoteNEPHROLOGY PROGRESS NOTE [facility] Patient Name: Lorenzo Amato Admit Date: [id number] MR #: [id number] : 1970 Perpetual Assessment: Lorenzo Amato is a 55 y.o. male on hospital day 4 admitted for abdominal wall swelling We are asked to evaluate and manage end-stage kidney disease management Impression and Plan: End-stage kidney disease on CAPD with Dr. Carline Miller Previously on HD from June to August 2024 -EDW of 130kg Last 24hr urine collection of 600 cc which was a significant decrease in urine output from previous 24-hour collection Outpatient PD prescription: Manual exchanges, 4 cycles, 2-1/2 L fill volume, 2.5% dextrose solution Previously euvolemic and then patient became hypervolemic in the setting of decompensated heart failure from severe aortic stenosis. [facility] 09/22- elevated left and right heart filling pressures. PCWP 37 mmHg and LVEDP 40 mmHg ECHO EF 36%, grade 2 HFpEF, moderate to severe aortic stenosis On 09/19, cycler PD prescription with 6 cycles, 2.5% dextrose solution, 6 cycles, over 12 hours PD 09/20 with 3 L volume removal with post PD weight of 131 kg PD 09/21 with 1.5 L volume removal with post PD weight of 130 kg PD 09/22 with 2.8 L volume removal after PD 09/23 with 4.38 L volume removal after doing total volume of 15 L, 18 hours, 3 bags of 2.5% and 2 bags of 4.25%. Will continue with this prescription overnight. Patient continuously has documented hypotension. As expected his residual renal function appears to be dropping; he only had about 150 cc of urine output overnight. This is in the setting of 2 IV contrast loads and severe aortic stenosis. Hemodialysis will not UF as much fluid as we did in the last 24 hours on PD in light of his severe aortic stenosis and hypotension. He has lost residual renal function and near anuric. Can consider transitioning to CRRT with a-line placement to confirm blood pressure readings and as needed vasopressor support but CRRT may UF less than what we are able to achieve with PD in the last 24 hours. Ultimately his volume status will be corrected with improvement in hemodynamics status post aortic valve replacement. In addition if we are able to ultrafiltrate on PD it is preferred modality in light of his severe aortic stenosis and associated hypotension Reassuringly he does not have uremic symptoms. 2. Abdominal wall edema - It is likely that his abdominal wall edema may simply be due to anasarca and he may need more aggressive UF. 2D echo on 09/20 showing EF 36%, grade 2 HFpEF, moderate to severe aortic stenosis -Contrast-enhanced CT abdomen pelvis did not show EPS -Peritoneal fluid cell count negative for peritonitis -We started lidocaine patch for pain control 09/22. Patient reports relief. Continue with this medication and like will need to be discharged on it. 3. Hypotension severe aortic stenosis, cardiomyopathy -Echo as above. Right heart catheterization as above -Continue to hold Entresto, metoprolol for now -[facility] in January 2025 showed severe multivessel CAD. Repeat heart catheterization shows high grade in-stent restenosis of Ostial LCX. 100% occluded ISR of D1 (new). Patent stents in LAD with no significant ISR. -Near anuric. Stop IV Lasix. Harge -Continue midodrine 10 mg 3 times daily -Management of anemia as below 4. Acute HFrEF and severe aortic stenosis -Left heart catheterization and right heart catheterization as above -Per CT surgery he is not a surgical candidate for open heart surgery. He is not a candidate for surgical bailout in case of catastrophic complications during any catheter-based intervention. . 5. Acute hypervolemic hyponatremia Expect this to improve with more aggressive UF as above 6. Metabolic acidosis Cont sodium bicarbonate 650 mg 3 times a day 7. 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 Historically poorly controlled type 2 diabetes A1c of 11%. Follows with endocrinology outpatient setting. Appreciate endocrinology involvement during this hospitalization 9. Anemia: Due to iron deficiency and CKD - Will give Venofer. Will give pushes to minimize fluid intake -Will give GENARO Subjective: No events overnight. Long discussion with patient and at bedside. Seen twice this morning. First while he was receiving peritoneal dialysis and later when he was off PD. All of their questions answered. . Also discussed with cardiology, hospitalist and nursing staff. We started lidocaine patch for pain control. Patient reports it is helping him well. Review of Systems: ROS otherwise reviewed and negative Physical Examination: Vitals: Vitals: 09/23/25 0347 09/23/25 0707 09/23/25 0806 09/23/25 0952 BP: 100/67 (!) 86/52 BP Location: Pulse: 91 93 Resp: 18 18 Temp: (!) 96.3 degrees F (35.7 degrees C) TempSrc: Axillary SpO2: 96% Weight: 129.4 kg (285 l (more content not included)...[facility] 09-23-2025 NoteDate of admission: 09/19/2025 Admission diagnosis: Hyponatremia [E87.1] Anemia of chronic disease [D63.8] ESRD (end stage renal disease) (HCC) [N18.6] Abdominal wall cellulitis [L03.311] Abdominal pain, unspecified abdominal location [R10.9] No admission procedures for hospital encounter. Referring Provider: Gracie Miller MD Attending provider: [facility] Hospitalists, Generic Primary Care Provider: Lion Carlson MD Chief Complaint/Reason for Consult: Hyperglycemia/DM management on insulin pump. History of Present Illness: Lorenzo Amato is a 55 y.o. year old male with hx of anemia, CAD, depression, diabetes mellitus, GERD, dyslipidemia, hypertension, MS, morbid obesity, NABOR, presented to [facility] on 09/19/2025 with abdominal pain and concern for cellulitis by nephrology. Patient reports bilateral flank/low abdomen pain. Denies CP, SOB, Nausea or vomiting. Reports fatigue. Patient had hypoglycemic event this AM with BG of 36. His insulin pump was held at that time. DM type: 2, diagnosed in approx 2003. Home regimen: (managed by Dr. Nowak, Student Services Advisor [place]) Medtronic insulin pump with [employer] Settings: Basal rates: 0000: 14 u/hr. Sensitivity: 0000: 1:5 Carb ratio 0000: 1:2 Reports instructed to take 15 units with each meals, however not doing frequently. Home sugars: He is checking his blood sugars via CGM Pump reviewed over last 14 and 30 days. Average BG between 285-320 TDI in last 14 days averaging 34.1 units per day Basal: 31.95; Bolus: 2.15. Last A1c was 11.2 on 09/19. Current GFR is 9. Diabetes Complications: Eyes: Pos, last fundus exam was in last 12 months Renal: Pos, on PD, follows with nephrology for ESRD Neuropathy: Pos, numbness in feet Current inpatient regimen: Insulin pump on hold. 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 Gracie Miller Venous embolism lungs and legs Vitamin D deficiency Past Surgical History: Procedure Laterality Date APPENDECTOMY CARDIAC CATHETERIZATION N/A 06/21/2024 Procedure: Coronary Angiogram; Surgeon: Melba Singh MD; Location: 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; Service: Cardiovascular CARDIAC CATHETERIZATION N/A 06/21/2024 Procedure: Angioplasy w/Stent- Coronary; Surgeon: Melba Singh MD; 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; Service: Cardiovascular CARDIAC CATHETERIZATION N/A 06/21/2024 Procedure: Angioplasty - Intravascular Lithotripsy - Coronary; Surgeon: Melba Singh MD; 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; Service: Cardiovascular COLONOSCOPY last was 2014, polyps, done in [place], 2 procdures CORONARY ANGIOPLASTY WITH STENT PLACEMENT has had 2 surgeries, 2019 most recent CV IR INTERVENTIONAL RADIOLOGY N/A 06/16/2024 Procedure: VR Dialysis Cath Insert Tunnel; Surgeon: Dariusz Modi MD; Location: IR LAB; Service: Interventional Radiology; Laterality: N/A; ESOPHAGOGASTRODUODENOSCOPY last was done in [place], gastic tumor, INSULIN PUMP AND GLUCOSE SENSOR IR IVC FILTER PLACEMENT 2012 for Blood clots MT L HRT CATH W/NJX L VENTRICULOGRAPHY IMG S&I N/A 06/21/2024 Procedure: Left Heart Cath; Surgeon: Melba Singh MD; Location: 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; Service: Cardiovascular MT LAPS INSERTION TUNNELED INTRAPERITONEAL CATHETER N/A 05/19/2024 PD cath, ESRF.....Dr. Brian Nikole TATTOO TEETH EXTRACTION TRANSFUSION BLOOD PRODUCT VASECTOMY Social History[1] Family History Problem Relation Age of Onset Uterine cancer Mother Heart disease Father Diabetes Maternal Aunt Rheum arthritis Brother Coronary artery disease Brother [facility] MEDS: Current Medications[2] ALLERGIES: Allergies[3] Review of Systems: As per subjective. Physical Exam: Vitals: BP 100/67 Pulse 91 Temp 97.2 degrees F (36.2 degrees C) (Oral) Resp 16 Ht 5' 9 Wt 133.8 kg (295 lb) SpO2 95% BMI 43.56 kg/m , Body mass index is 43.56 kg/m ., Wt Readings from Last 3 Encounters: 09/19/25 133.8 kg (295 lb) 06/22/24 130 kg (286 lb 11.2 oz) 06/12/24 (!) 138.3 kg (305 lb) Vitals reviewed Not in distress Breathing comfortably Skin color within normal limits Lab/Imaging Data: Lab Results Component Value Date WBC 11.65 (H) 09/23/2025 HGB 7.3 (L) 09/23/2025 HCT 25.1 (L) 09/23/2025 MCV 95.8 09/23/2025 PLT 294 09/23/2025 Lab Results Component Value Date GLUCOSE 288 (H) 09/23/2025 NA 130 (L) 09/23/2025 K 3.7 09/23/2025 CL 89 (L) 09/23/2025 BUN 55 (H) (more content not included)...[facility]11-08-2025 Note NEPHROLOGY PROGRESS [facility] Patient Name: Lorenzo Amato Admit Date: [id number] MR #: [id number] : 1970 Perpetual Assessment: Lorenzo Amato is a 55 y.o. male on hospital day 3 admitted for abdominal wall swelling We are asked to evaluate and manage end-stage kidney disease management Impression and Plan: End-stage kidney disease on CAPD with Dr. Carline Miller Previously on HD from June to August 2024 -EDW of 130kg Last 24hr urine collection of 600 cc which was a significant decrease in urine output from previous 24-hour collection Outpatient PD prescription: Manual exchanges, 4 cycles, 2-1/2 L fill volume, 2.5% dextrose solution On 09/19, cycler PD prescription with 6 cycles, 2.5% dextrose solution, 6 cycles, over 12 hours PD 09/20 with 3 L volume removal with post PD weight of 131 kg PD 09/21 with 1.5 L volume removal with post PD weight of 130 kg PD 09/22 with 2.8 L volume removal after doing 8 cycles iwth 4.25% dextrose solution and 4 cycles with 2.5% dextrose solution. Post PD bed weight of 130.6 kg. Will obtain a standing weight today. [facility] 09/22- elevated left and right heart filling pressures. PCWP 37 mmHg and LVEDP 40 mmHg Patient remains severely hypervolemic on physical examination and per right heart catheterization findings. He is hypotensive. I doubt his current hemodynamics will tolerate ultrafiltration on intermittent HD. Given that he had a 2.8 L UF with the above prescription we will continue PD over the weekend. We will use 3 cycles of 4.25% dextrose solutions with 3 cycles of 2.5% dextrose solutions. Endocrinology is following and will need to adjust his insulin regimen as needed. Will increase midodrine dosing due to hypotension Unfortunately as expected his residual renal function appears to be dropping; he only had about 150 cc of urine output overnight. This is in the setting of 2 IV contrast loads and severe aortic stenosis. Ultimately volume optimization will depend on fixing his aortic valve Contrast-enhanced CT abdomen pelvis did not show EPS Peritoneal fluid cell count negative for peritonitis Reassuringly he does not have uremic symptoms. 2. Abdominal wall edema - It is likely that his abdominal wall edema may simply be due to anasarca and he may need more aggressive UF. 2D echo on 09/20 showing EF 36%, grade 2 HFpEF, moderate to severe aortic stenosis 3. Hypotension severe aortic stenosis, cardiomyopathy -Echo as above. Right heart catheterization as above -Continue to hold Entresto, metoprolol for now -[facility] in January 2025 showed severe multivessel CAD. Repeat heart catheterization shows high grade in-stent restenosis of Ostial LCX. 100% occluded ISR of D1 (new). Patent stents in LAD with no significant ISR. -Is oliguric but we will continue Lasix 40 mg IV 3 times a day; will start torsemide 100 mg a day on discharge Increase midodrine to 10 3 times daily Management of anemia as below- 4. Acute HFrEF and severe aortic stenosis -Left heart catheterization and right heart catheterization as above -Per CT surgery he is not a surgical candidate for open heart surgery. He is not a candidate for surgical bailout in case of catastrophic complications during any catheter-based intervention. . 5. Acute hypervolemic hyponatremia Expect this to improve with more aggressive UF as above 6. Metabolic acidosis Improving with sodium bicarbonate 650 mg 3 times a day 7. 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 Historically poorly controlled type 2 diabetes A1c of 11%. Follows with endocrinology outpatient setting. Appreciate endocrinology involvement during this hospitalization 9. Anemia: Due to iron deficiency and CKD - Will check iron studies. -Will give GENARO Subjective: No events overnight. Long discussion with patient and at bedside. All of their questions answered. Remains hypotensive. UF 2.8 L Review of Systems: ROS otherwise reviewed and negative Physical Examination: Vitals: Vitals: 09/21/25 2358 09/22/25 0441 09/22/25 0805 09/22/25 0909 BP: (!) 91/59 94/67 94/67 BP Location: Pulse: 87 89 92 Resp: 16 (!) 20 18 18 Temp: 97.8 degrees F (36.6 degrees C) 97.7 degrees F (36.5 degrees C) 98.1 degrees F (36.7 degrees C) TempSrc: Oral Oral Oral SpO2: 98% 100% 100% Weight: Height: Intake/Output last 3 shifts: Intake/Output Summary (Last 24 hours) at 09/22/2025 1005 Last data filed at 09/22/2025 0441 Gross per 24 hour Intake 837.66 ml Output 160 ml Net 677.66 ml I/O last 3 completed shifts: In: 1237.7 [P.O.:1040; I.V.:11.5; IV Piggyback:186.1] Out: 410 [Urine:400; Blood:10] General: No acute distress HEENT: Anicteric Neck: Supple CV: Regular rate, no murmurs or rubs. Lungs: CTA B Abd: hard abdominal wall edema Extr: No lower extremity edema Neuro: No myoclonus, alert and oriented x 3 Ski (more content not included)...[facility]11-08-2025 NoteDate of admission: 09/19/2025 Admission diagnosis: Hyponatremia [E87.1] Anemia of chronic disease [D63.8] ESRD (end stage renal disease) (HCC) [N18.6] Abdominal wall cellulitis [L03.311] Abdominal pain, unspecified abdominal location [R10.9] No admission procedures for hospital encounter. Referring Provider: Gracie Miller MD Attending provider: [facility] Hospitalists, Generic Primary Care Provider: Lion Carlson MD Chief Complaint/Reason for Consult: Hyperglycemia/DM management on insulin pump. History of Present Illness: Lorenzo Amato is a 55 y.o. year old male with hx of anemia, CAD, depression, diabetes mellitus, GERD, dyslipidemia, hypertension, MS, morbid obesity, NABOR, presented to [facility] on 09/19/2025 with abdominal pain and concern for cellulitis by nephrology. Patient reports bilateral flank/low abdomen pain. Denies CP, SOB, Nausea or vomiting. Reports fatigue. Patient had hypoglycemic event this AM with BG of 36. His insulin pump was held at that time. DM type: 2, diagnosed in approx 2003. Home regimen: (managed by Dr. Nowak, Student Services Advisor [place]) Medtronic insulin pump with [email or web address] Settings: Basal rates: 0000: 14 u/hr. Sensitivity: 0000: 1:5 Carb ratio 0000: 1:2 Reports instructed to take 15 units with each meals, however not doing frequently. Home sugars: He is checking his blood sugars via CGM Pump reviewed over last 14 and 30 days. Average BG between 285-320 TDI in last 14 days averaging 34.1 units per day Basal: 31.95; Bolus: 2.15. Last A1c was 11.2 on 09/19. Current GFR is 9. Diabetes Complications: Eyes: Pos, last fundus exam was in last 12 months Renal: Pos, on PD, follows with nephrology for ESRD Neuropathy: Pos, numbness in feet Current inpatient regimen: Insulin pump on hold. 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 Gracie Miller Venous embolism lungs and legs Vitamin D deficiency Past Surgical History: Procedure Laterality Date APPENDECTOMY CARDIAC CATHETERIZATION N/A 06/21/2024 Procedure: Coronary Angiogram; Surgeon: Melba Singh MD; Location: 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; Service: Cardiovascular CARDIAC CATHETERIZATION N/A 06/21/2024 Procedure: Angioplasy w/Stent- Coronary; Surgeon: Melba Singh MD; Location: 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; Service: Cardiovascular CARDIAC CATHETERIZATION N/A 06/21/2024 Procedure: Angioplasty - Intravascular Lithotripsy - Coronary; Surgeon: Melba Singh MD; Location: 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; Service: Cardiovascular COLONOSCOPY last was 2014, polyps, done in [place], 2 procdures CORONARY ANGIOPLASTY WITH STENT PLACEMENT has had 2 surgeries, 2019 most recent CV IR INTERVENTIONAL RADIOLOGY N/A 06/16/2024 Procedure: VR Dialysis Cath Insert Tunnel; Surgeon: Dariusz Modi MD; Location: IR LAB; Service: Interventional Radiology; Laterality: N/A; ESOPHAGOGASTRODUODENOSCOPY last was done in [place], gastic tumor, INSULIN PUMP AND GLUCOSE SENSOR IR IVC FILTER PLACEMENT 2012 for Blood clots MT L HRT CATH W/NJX L VENTRICULOGRAPHY IMG S&I N/A 06/21/2024 Procedure: Left Heart Cath; Surgeon: Melba Singh MD; Location: 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; Service: Cardiovascular MT LAPS INSERTION TUNNELED INTRAPERITONEAL CATHETER N/A 05/19/2024 PD cath, ESRF.....Dr. Brian Arevalo TATTOO TEETH EXTRACTION TRANSFUSION BLOOD PRODUCT VASECTOMY Social History[1] Family History Problem Relation Age of Onset Uterine cancer Mother Heart disease Father Diabetes Maternal Aunt Rheum arthritis Brother Coronary artery disease Brother Diabetes [facility] I [facility] MEDS: Current Medications[2] ALLERGIES: Allergies[3] Review of Systems: As per subjective. Physical Exam: Vitals: BP 94/67 Pulse 92 Temp 98.1 degrees F (36.7 degrees C) (Oral) Resp 18 Ht 5' 9 Wt 133.8 kg (295 lb) SpO2 100% BMI 43.56 kg/m , Body mass index is 43.56 kg/m ., Wt Readings from Last 3 Encounters: 09/19/25 133.8 kg (295 lb) 06/22/24 130 kg (286 lb 11.2 oz) 06/12/24 (!) 138.3 kg (305 lb) Vitals reviewed Not in distress Breathing comfortably Skin color within normal limits Lab/Imaging Data: Lab Results Component Value Date WBC 9.77 09/22/2025 HGB 7.0 (L) 09/22/2025 HCT 24.0 (L) 09/22/2025 MCV 97.2 09/22/2025 PLT 303 09/22/2025 Lab Results Component Value Date GLUCOSE 266 (H) 09/22/2025 NA 129 (L) 09/22/2025 K 3.9 09/22/2025 CL 91 (L) 09/22/2025 BUN 58 (H) (more content not included)...[facility]11-08-2025 NoteHMS PROGRESS NOTE Patient name: Lorenzo Amato Date of : 1970 Assessment and plan Lorenzo Amato is a 54 y.o. male patient of Lion Carlson MD with history of anemia, CAD, depression, diabetes mellitus, GERD, dyslipidemia, hypertension, MS, morbid obesity, NABOR, presented to [facility] on 09/19/2025 with abdominal pain and concern for cellulitis by nephrology Abdominal wall edema/anasarca ESRD on PD Has been having peritoneal dialysis since beginning this year, Does have a functional HD fistula as well. CT abdomen 09/19 Anasarca present throughout. S/p ceftriaxone in the ED, Peritoneal fluid analysis negative, peritoneal fluid culture negative, blood cultures negative, no further need for antibiotics for now Nephrology on board-> managing peritoneal dialysis, will attempt 2 cycles using higher dextrose expected that will increase blood glucose Endocrinology on Board for /hyperglycemia, DM management in setting of insulin pump Calcified aortic stenosis Acute on chronic HFrEF Hx CAD Hx venous thromboembolism DVT x 2 IVC filter 2009 Echo 09/20 EF 36%, grade 2 HFpEF, moderate to severe aortic stenosis Heart cath 06/20/2024 shows severe three-vessel coronary artery disease -> CABAG was declined then Heart cath done 09/21-> high grade in-stent restenosis of Ostial LCX. 100% occluded ISR of D1 (new). Patent stents in LAD with no significant ISR. 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 Continue Eliquis Poorly controlled type II diabetes mellitus Pt has insulin pump, check blood glucose [facility]. Keep BG 140 and 180 Endocrinology on board MS Morbid obesity NABOR BMI 43.56 Lifestyle modification advised to the patient CPAP at nighttime. Discharge planning Medically ready for discharge: no Patient and/or family has been notified they are expected to be medically stable for discharge on the following date:TBD Patient requires continued hospitalization due to: nephrology CTS and cardiology Rercs, pending improvement in his vol status Discussed with the patient and/or family that the following is a potential discharge location, understanding that the final plan will depend on the patient's progress and shared decision-making: Home The following resources have been ordered to assist with discharge barriers: care management Quality measures DVT prophylaxis: eliquis Bill catheter: absent Code status Full Code Subjective Sleeping comfortable, endorses feeling better today spoke with the bedside Objective BP 94/67 Pulse 92 Temp 98.1 degrees F (36.7 degrees C) (Oral) Resp 18 Ht 5' 9 Wt 133.8 kg (295 lb) SpO2 100% BMI 43.56 kg/m General appearance: alert; chronically ill appearing; in no acute distress HEENT: Head- normocephalic; Eyes- EOMI, sclera anicteric; Throat- mucous membranes moist Cardiovascular: regular rate and rhythm; normal S1, S2; no murmurs, rubs, clicks or gallops; peripheral edema present Respiratory: lungs clear to auscultation; without wheezes, rales or rhonchi; on CPAP Abdomen: soft, non-tender, non-distended Neurological: oriented x 3; normal speech; no focal findings or movement disorder noted Musculoskeletal: no significant deformity or tenderness to palpation Skin: normal coloration Psych: normal mood and affect AUTHENTICATED BY YURI REAL, ON 09/22/2025 16:32:04[facility] 09-21-2025 NoteStructural Heart Progress Note Cath films and ECHO reviewed Moderate to severe aortic stenosis Indexed СЕРГЕЙ 0.55 cm2/m2 New LV systolic dysfunction Cath - high grade in-stent restenosis of Ostial LCX. 100% occluded ISR of D1 (new). Patent stents in LAD with no significant ISR. Ostial RCA 100% (old) with left to right collaterals RHC- elevated left and right heart filling pressures. PCWP 37 mmHg and LVEDP 40 mmHg Will d/w CT surgery if LAD is a target for CABG. If so then consider CABG+AVR if surgical risk not high. If LAD Is not graftable and/or surgical risk is high for CABG+AVR. Then will benefit from transcatheter aortic valve replacement and percutaneous coronary intervention of LCX In meanwhile, will speak to Nephrology to switch to HD from PD for aggressive fluid removal as he is currently still significantly volume overloaded D/w with patient and family Plan Continue current management CTS consult placed CT TAVR Wednesday Nephrology to reassess HD vs. PD Melba Singh MD, MPH, MRCP, FACC Interventional Cardiology/Structural Heart Disease [facility] AUTHENTICATED BY MELBA SINGH, ON 09/21/2025 17:18:15[facility] 09-21-2025 NoteHMS PROGRESS NOTE Patient name: Lorenzo Amato Date of : 1970 Assessment and plan Lorenzo Amato is a 54 y.o. male patient of Lion Carlson MD with history of anemia, CAD, depression, diabetes mellitus, GERD, dyslipidemia, hypertension, MS, morbid obesity, NABOR, presented to [facility] on 09/19/2025 with abdominal pain and concern for cellulitis by nephrology Abdominal wall edema/anasarca ESRD on PD Has been having peritoneal dialysis since beginning this year, Does have a functional HD fistula as well. CT abdomen Anasarca present throughout. S/p ceftriaxone in the ED, Peritoneal fluid analysis negative, peritoneal fluid culture negative, blood cultures negative, no further need for antibiotics Nephrology on board-> managing peritoneal dialysis, will attempt 2 cycles using dextrose at will increase blood glucose Calcified aortic stenosis Acute on chronic HFrEF Hx CAD Hx venous thromboembolism DVT x 2 IVC filter 2009 Echo 09/20 EF 36%, grade 2 HFpEF, moderate to severe aortic stenosis Heart cath 06/20/2024 shows severe three-vessel coronary artery disease Continue Plavix Cardiology on board plan for left and right heart cath 09/21 Follow-up cardiology recommendations Continue with Eliquis Hypotension Holding entresto, metoprolol, Lasix 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 Continue Eliquis Poorly controlled type II diabetes mellitus Pt has insulin pump, check blood glucose [facility]. Keep BG 140 and 180 MS Morbid obesity NABOR BMI 43.56 Lifestyle modification advised to the patient CPAP at nighttime. Discharge planning Medically ready for discharge: no Patient and/or family has been notified they are expected to be medically stable for discharge on the following date: 09/24 Patient requires continued hospitalization due to: nephrology and cardiology ercs, pending improvement in his vol status Discussed with the patient and/or family that the following is a potential discharge location, understanding that the final plan will depend on the patient's progress and shared decision-making: Home The following resources have been ordered to assist with discharge barriers: care management Quality measures DVT prophylaxis: eliquis Bill catheter: absent Code status Full Code Subjective Sleeping comfortable, endorses feeling better today spoke with the bedside Objective BP 100/66 Pulse 90 Temp 98.1 degrees F (36.7 degrees C) (Oral) Resp 18 Ht 5' 9 Wt 133.8 kg (295 lb) SpO2 98% BMI 43.56 kg/m General appearance: alert; chronically ill appearing; in no acute distress HEENT: Head- normocephalic; Eyes- EOMI, sclera anicteric; Throat- mucous membranes moist Cardiovascular: regular rate and rhythm; normal S1, S2; no murmurs, rubs, clicks or gallops; peripheral edema present Respiratory: lungs clear to auscultation; without wheezes, rales or rhonchi; on CPAP Abdomen: soft, non-tender, non-distended Neurological: oriented x 3; normal speech; no focal findings or movement disorder noted Musculoskeletal: no significant deformity or tenderness to palpation Skin: normal coloration Psych: normal mood and affect AUTHENTICATED BY YURI REAL, ON 09/21/2025 15:12:[address] [place] [address] 09-21-2025 NoteNEPHROLOGY PROGRESS NOTE [facility] Patient Name: Lorenzo Amato Admit Date: [id number] MR #: [id number] : 1970 Perpetual Assessment: Lorenzo Amato is a 55 y.o. male on hospital day 2 admitted for abdominal wall swelling We are asked to evaluate and manage end-stage kidney disease management Impression and Plan: End-stage kidney disease on CAPD with Dr. Carline Miller Previously on HD from June to August 2024 -EDW of 130kg Last 24hr urine collection of 600 cc Outpatient PD prescription: Manual exchanges, 4 cycles, 2-1/2 L fill volume, 2.5% dextrose solution On 09/19, cycler PD prescription with 6 cycles, 2.5% dextrose solution, 6 cycles, over 12 hours PD 09/20 with 3 L volume removal with post PD weight of 131 kg PD 09/21 with 1.5 L volume removal with post PD weight of 130 kg Unfortunately as expected his residual renal function appears to be dropping; he only had about 300 cc of urine output overnight. I discussed with family that he we may see further drop in residual renal function given repeat contrast load (C planned for today). Given that he is significantly hypervolemic, we will attempt 2 cycles with 4.25% dextrose solution and 4 cycles with 2.5% extra solution. Will inform endocrine that this may result in hyperglycemia; will defer to them for glycemic control. Will continue PD again tonight with same prescription. Ultimately volume optimization will depend on fixing his aortic valve Contrast-enhanced CT abdomen pelvis did not show EPS Peritoneal fluid cell count negative for peritonitis Reassuringly he does not have uremic symptoms. At this time there is no urgent need to change modalities. On discharge, we will have patient increase manual exchanges to 6. I spoke with PD team in the outpatient setting to train him on cycler. 2. Abdominal wall edema -It is possible that his abdominal wall edema may simply be due to anasarca and he may need more aggressive UF. 2D echo on 09/20 showing EF 36%, grade 2 HFpEF, moderate to severe aortic stenosis 3. Hypotension Hold Entresto, metoprolol for now [facility] in January 2025 showed severe multivessel CAD Continue Lasix 40 mg IV 3 times a day; will start torsemide 100 mg a day on discharge Continue midodrine 10 mg twice a day Appreciate cardiology input; echo found to have moderate to severe AAS. [facility] planned for today. TAVR depending upon that 4. Acute hypervolemic hyponatremia Expect this to improve with more aggressive UF as above 5. Metabolic acidosis Improving with sodium bicarbonate 650 mg 3 times a day 6. 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 Historically poorly controlled type 2 diabetes A1c of 11%. Subjective: No events overnight. Doing well. Long discussion with patient and at bedside. All of their questions answered. Review of Systems: ROS otherwise reviewed and negative Physical Examination: Vitals: Vitals: 09/20/25 2151 09/21/25 0028 09/21/25 0310 09/21/25 0710 BP: (!) 88/62 97/65 93/63 97/62 BP Location: Left arm Pulse: 95 94 96 Resp: 16 18 18 Temp: 97.5 degrees F (36.4 degrees C) 97.6 degrees F (36.4 degrees C) 98.1 degrees F (36.7 degrees C) TempSrc: Oral Oral Oral SpO2: 99% 99% 98% Weight: Height: Intake/Output last 3 shifts: Intake/Output Summary (Last 24 hours) at 09/21/2025 1403 Last data filed at 09/21/2025 0500 Gross per 24 hour Intake 413.28 ml Output 250 ml Net 163.28 ml I/O last 3 completed shifts: In: 413.3 [P.O.:400; I.V.:13.3] Out: 375 [Urine:375] General: No acute distress HEENT: Anicteric Neck: Supple CV: Regular rate, no murmurs or rubs. Lungs: CTA B Abd: Soft, abdominal wall edema Extr: No lower extremity edema Neuro: No myoclonus, alert and oriented x 3 Skin : No new rashes Dialysis access: PD catheter CDI Right AV fistula with thrill and bruit Results/Medications Reviewed 09/21/25 2:03 PM: Laboratory, Microbiology, Pathology, Radiology, Cardiology, Medications and Transcriptions reviewed Scheduled Meds: apixaban 5 mg Oral BID atorvastatin 80 mg Oral Nightly buPROPion 75 mg Oral BID busPIRone 15 mg Oral Q8H LUIS clopidogreL 75 mg Oral QAM DULoxetine 60 mg Oral QAM furosemide 40 mg Intravenous TID insulin glargine 15 Units Subcutaneous BID lispro insulin 0-15 Units Subcutaneous at bedtime insulin lispro 0-30 Units Subcutaneous QAM AC insulin lispro 0-30 Units Subcutaneous Daily before lunch insulin lispro 0-30 Units Subcutaneous Before dinner insulin NPH 15 Units Subcutaneous Nightly midodrine 10 mg Oral BID pantoprazole 40 mg Oral BID senna-docusate 1 tablet Oral BID sodium bicarbonate 650 mg Oral TID sodium chloride (PF) 5 mL Intravenous Q8H LUIS Continuous Infusions: Results from last 7 days Lab Units 09/21/25 0420 09/20/25 0357 09/19/25 1446 WBC K/mcL 11.50* 12.22* 10.43 HGB g/dL 8.2* 8.7* 8.9* (more content not included)...[facility] 09-21-2025 [facility] GENERAL CARDIOLOGY PROGRESS NOTE Name: Lorenzo Amato Age: 55 y.o. Gender: male PCP: Lion Carlson MD Primary assembly adjuster: Reno Oro MD CARDIOVASCULAR & METABOLIC PROBLEMS LFLG Calcific aortic stenosis --- M mmHg, V-max: 2.9 m/s, and СЕРГЕЙ: 0.9 cm . 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 His aortic stenosis deemed to be borderline moderate to severe, and visually look severely restricted. He has a very loud precordial murmur with absent S2. He presented with anasarca and also less abdominal pain. Received 2 doses of IV antibiotics but abdominal pain deemed not due to peritonitis but due to peritoneal dialysis. His volume status is managed by industrial hygienist. He is currently hypervolemic. Resting rate is at goal blood pressures low. His afterload therapy has been on hold. He was on ANRi and BB at home. He will need further workup of aortic stenosis with invasive hemodynamic study and left heart catheterization. This also will help to understand his volume status. This has been discussed with patient and extensively by Dr. Ríos. Ultimately, if he has severe aortic stenosis, he would need AVR likely with TAVR as he will be high surgical risk. Patient and seen at bedside by Dr. Ríos this a.m. Patient and agreeable to proceed with left and right heart catheterization today. Volume management per nephrology [peritoneal dialysis] Continue to hold afterload therapy due to hypotension Continue Plavix and statin therapy for his coronary artery disease N.p.o. for planned left and right heart catheterization today Interventional cardiology aware the patient took a.m. Anna Further recommendations will be forthcoming after his procedures OBJECTIVES Echocardiogram 09/20/2025 LVEF: 36% akinesis of inferior wall, apex, and apical lateral wall with grade 2 DD. RV has normal size and function. Moderate to severe aortic stenosis with M mmHg, V-max: 2.9 m/s, and СЕРГЕЙ: 0.9 cm . SVI: 20 mL/m . Mild MR and TR was noted. RVSP estimated to be 50 m mercury. Coronary angiogram performed in June 2024 revealed double vessel obstructive CAD involving severe bifurcation LAD into diagonal disease and chronic total occlusion of RCA with L-R collateral. LCx and OM stent and mid LAD stent were noted to be patent. Successful PCI of proximal LAD and diagonal was completed. BP 97/62 Pulse 96 Temp 98.1 degrees F (36.7 degrees C) (Oral) Resp 18 Ht 5' 9 Wt 133.8 kg (295 lb) SpO2 98% BMI 43.56 kg/m General Appearance: Pleasant gentleman. On BiPAP. Respiratory: Diminished bibasilar. No wheezes or rhonchi. Cardiovascular: good peripheral pulses. JVP is flat. Regular rate and rhythm. Normal S1-S2. + systolic murmur. No gallop/rub. Abdomen: Distended abdomen with anasarca and tenderness. He had bruises on his right lower quadrant abdomen. PD catheter is on the left lower quadrant. JUDY: +2 bilateral pitting lower extremity edema that extends to upper thighs Skin: no rash. No cyanosis. No clubbing of fingers. Telemetry independently reviewed showing sinus rhythm with multifocal PVCs, short run of SVT seen Current Outpatient Medications Medication Instructions acetaminophen (TYLENOL) 1,000 mg, Oral, Every 6 hours PRN atorvastatin (LIPITOR) 80 mg, Oral, Nightly buPROPion (WELLBUTRIN) 75 mg, Oral, 2 times daily busPIRone (BUSPAR) 15 mg, 3 times daily clopidogreL (PLAVIX) 75 mg, Oral, Every morning DULoxetine (CYMBALTA) 60 mg, Oral, Every morning Eliquis 5 mg, Oral, 2 times daily ergocalciferol, vitamin D2, 50 mcg (2,000 unit) cap 1 capsule, Oral, Daily fluticasone propionate (FLONASE) 50 mcg/actuation nasal spray 2 sprays, Nasal, Daily PRN furosemide (LASIX) 80 mg, Oral, 2 times daily gentamicin (GARAMYCIN) 0.3 % ophthalmic solution by Other route See Admin Instructions 1 TO 2 drops topically to PERITONEAL DIALYSIS EXIT SITE once daily if needed . glucagon 1 mg, Intramuscular, As needed insulin lispro (AdmeLOG,HumaLOG) 100 unit/mL injection Via insulin pump meclizine (ANTIVERT) 25 mg, Oral, 3 times daily PRN metoprolol succinate (TOPROL-XL) 100 mg, Oral, 2 times daily nitroGLYCERIN (NITROSTAT) 0.4 mg, Sublingual, Every 5 min PRN, , if no relief after 3 doses call 911 octreotide ER (SANDOSTATIN LAR DEPOT) 30 mg, Intramuscular, Every 28 days pantoprazole (PROTONIX) 40 mg, Oral, 2 times da (more content not included)... [facility]11-07-2025 NoteDate of admission: 09/19/2025 Admission diagnosis: Hyponatremia [E87.1] Anemia of chronic disease [D63.8] ESRD (end stage renal disease) (HCC) [N18.6] Abdominal wall cellulitis [L03.311] Abdominal pain, unspecified abdominal location [R10.9] No admission procedures for hospital encounter. Referring Provider: Gracie Miller MD Attending provider: [facility], Generic Primary Care Provider: Lion Carlson MD Chief Complaint/Reason for Consult: Hyperglycemia/DM management on insulin pump. History of Present Illness: Lorenzo Amato is a 55 y.o. year old male with hx of anemia, CAD, depression, diabetes mellitus, GERD, dyslipidemia, hypertension, MS, morbid obesity, NABOR, presented to [facility] on 09/19/2025 with abdominal pain and concern for cellulitis by nephrology. Patient reports bilateral flank/low abdomen pain. Denies CP, SOB, Nausea or vomiting. Reports fatigue. Patient had hypoglycemic event this AM with BG of 36. His insulin pump was held at that time. DM type: 2, diagnosed in approx 2003. Home regimen: (managed by Dr. Nowak, Student Services Advisor Stephanie KAMINSKI) [employer] insulin pump with [email or web address] D[employer] eGifter Settings: Basal rates: 0000: 14 u/hr. Sensitivity: 0000: 1:5 Carb ratio 0000: 1:2 Reports instructed to take 15 units with each meals, however not doing frequently. Home sugars: He is checking his blood sugars via CGM Pump reviewed over last 14 and 30 days. Average BG between 285-320 TDI in last 14 days averaging 34.1 units per day Basal: 31.95; Bolus: 2.15. Last A1c was 11.2 on 09/19. Current GFR is 9. Diabetes Complications: Eyes: Pos, last fundus exam was in last 12 months Renal: Pos, on PD, follows with nephrology for ESRD Neuropathy: Pos, numbness in feet Current inpatient regimen: Insulin pump on hold. 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 Gracie Miller Venous embolism lungs and legs Vitamin D deficiency Past Surgical History: Procedure Laterality Date APPENDECTOMY CARDIAC CATHETERIZATION N/A 06/21/2024 Procedure: Coronary Angiogram; Surgeon: Melba Singh MD; 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; Service: Cardiovascular CARDIAC CATHETERIZATION N/A 06/21/2024 Procedure: Angioplasy w/Stent- Coronary; Surgeon: Melba Singh MD; Location: 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; Service: Cardiovascular CARDIAC CATHETERIZATION N/A 06/21/2024 Procedure: Angioplasty - Intravascular Lithotripsy - Coronary; Surgeon: Melba Singh MD; Location: 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; Service: Cardiovascular COLONOSCOPY last was 2014, polyps, done in [place], 2 procdures CORONARY ANGIOPLASTY WITH STENT PLACEMENT has had 2 surgeries, 2019 most recent CV IR INTERVENTIONAL RADIOLOGY N/A 06/16/2024 Procedure: VR Dialysis Cath Insert Tunnel; Surgeon: Dariusz Modi MD; Location: IR LAB; Service: Interventional Radiology; Laterality: N/A; ESOPHAGOGASTRODUODENOSCOPY last was done in [place], gastic tumor, INSULIN PUMP AND GLUCOSE SENSOR IR IVC FILTER PLACEMENT 2012 for Blood clots MT L HRT CATH W/NJX L VENTRICULOGRAPHY IMG S&I N/A 06/21/2024 Procedure: Left Heart Cath; Surgeon: Melba Singh MD; Location: 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; Service: Cardiovascular MT LAPS INSERTION TUNNELED INTRAPERITONEAL CATHETER N/A 05/19/2024 PD cath, [facility].....Dr. Brian Arevalo TATTOO TEETH EXTRACTION TRANSFUSION BLOOD PRODUCT VASECTOMY Social History[1] Family History Problem Relation Age of Onset Uterine cancer Mother Heart disease Father Diabetes Maternal Aunt Rheum arthritis Brother Coronary artery disease Brother Diabetes type I Grandson [facility] MEDS: Current Medications[2] ALLERGIES: Allergies[3] Review of Systems: As per subjective. Physical Exam: Vitals: BP 97/62 Pulse 96 Temp 98.1 degrees F (36.7 degrees C) (Oral) Resp 18 Ht 5' 9 Wt 133.8 kg (295 lb) SpO2 98% BMI 43.56 kg/m , Body mass index is 43.56 kg/m ., Wt Readings from Last 3 Encounters: 09/19/25 133.8 kg (295 lb) 06/22/24 130 kg (286 lb 11.2 oz) 06/12/24 (!) 138.3 kg (305 lb) Vitals reviewed Not in distress Breathing comfortably Alert and oriented Lab/Imaging Data: Lab Results Component Value Date WBC 11.50 (H) 09/21/2025 HGB 8.2 (L) 09/21/2025 HCT 27.2 (L) 09/21/2025 MCV 94.4 09/21/2025 PLT 343 09/21/2025 Lab Results Component Value Date GLUCOSE 371 (H) 09/21/2025 NA 129 (L) 09/21/2025 K 4.2 09/21/2025 CL 89 (L) 09/21/2025 BUN 61 (H) 09/21/2025 CREAT (more content not included)...[facility]11-06-2025 NoteHMS PROGRESS NOTE Patient name: Lorenzo Amato Date of : 1970 Assessment and plan Lorenzo Amato is a 54 y.o. male patient of Lion Carlson MD with history of anemia, CAD, depression, diabetes mellitus, GERD, dyslipidemia, hypertension, MS, morbid obesity, NABOR, presented to [facility] on 09/19/2025 with abdominal pain and concern for cellulitis by nephrology Abdominal wall anasarca ESRD on PD CHF Exacerbation Has been having peritoneal dialysis since beginning this year, Does have a functional HD fistula as well. Reportedly urinates approximately 600 mL daily Fluid collection of abdominal cavity to send for culture, pending CT abdomen with contrast does not show evidence of encapsulating peritoneal sclerosis. Anasarca present throughout. 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 Continue Eliquis Poorly controlled type II diabetes mellitus Pt has insulin pump, check blood glucose [facility]. Keep BG 140 and 180 History of coronary artery disease Systolic CHF Echo 06/16 with EF 32% and diastolic dysfunction. Heart cath 06/20/2024 shows severe three-vessel coronary artery disease Continue Plavix MS Morbid obesity NABOR BMI 43.56 Lifestyle modification advised to the patient CPAP at nighttime. Discharge planning Medically ready for discharge: no Patient and/or family has been notified they are expected to be medically stable for discharge on the following date: 09/24 Patient requires continued hospitalization due to: nephrology and cardiology ercs, pending improvement in his vol status Discussed with the patient and/or family that the following is a potential discharge location, understanding that the final plan will depend on the patient's progress and shared decision-making: Home The following resources have been ordered to assist with discharge barriers: care management Quality measures DVT prophylaxis: eliquis Bill catheter: absent Code status Full Code Subjective Sleeping comfortable, endorse 06/24 abdominal pain, spoke with his bedside Objective BP 92/60 Pulse 91 Temp 97.2 degrees F (36.2 degrees C) (Oral) Resp 18 Ht 5' 9 Wt 133.8 kg (295 lb) SpO2 98% BMI 43.56 kg/m General appearance: alert; chronically ill appearing; in no acute distress HEENT: Head- normocephalic; Eyes- EOMI, sclera anicteric; Throat- mucous membranes moist Cardiovascular: regular rate and rhythm; normal S1, S2; no murmurs, rubs, clicks or gallops; peripheral edema present Respiratory: lungs clear to auscultation; without wheezes, rales or rhonchi; on CPAP Abdomen: soft, non-tender, non-distended Neurological: oriented x 3; normal speech; no focal findings or movement disorder noted Musculoskeletal: no significant deformity or tenderness to palpation Skin: normal coloration Psych: normal mood and affect AUTHENTICATED BY YURI REAL, ON 09/20/2025 19:41:04[facility] 09-20-2025 NoteNEPHROLOGY PROGRESS NOTE [facility] Patient Name: Lorenzo Amato Admit Date: [id number] MR #: [id number] : 1970 Perpetual Assessment: Lorenzo Amato is a 55 y.o. male on hospital day 1 admitted for abdominal wall swelling We are asked to evaluate and manage end-stage kidney disease management Impression and Plan: End-stage kidney disease on CAPD with Dr. Carline Miller Previously on HD from June to August 2024 -EDW of 130kg Last 24hr urine collection of 600 cc Outpatient PD prescription: Manual exchanges, 4 cycles, 2-1/2 L fill volume, 2.5% dextrose solution On 09/19, cycler PD prescription with 6 cycles, 2.5% dextrose solution, 6 cycles, over 12 hours PD with 3 L volume removal with post PD weight of 131 kg Will continue PD again tonight with same prescription. Contrast-enhanced CT abdomen pelvis did not show EPS Peritoneal fluid cell count negative for peritonitis Reassuringly he does not have uremic symptoms. At this time there is no urgent need to change modalities. On discharge, we will have patient increase manual exchanges to 6. I spoke with PD team in the outpatient setting to train him on cycler. 2. Abdominal wall edema -It is possible that his abdominal wall edema may simply be due to anasarca and he may need more aggressive UF. 2D echo on 09/20 showing EF 36%, grade 2 HFpEF, moderate to severe aortic stenosis 3. Hypotension Hold Entresto, metoprolol for now [facility] in January 2025 showed severe multivessel CAD Will start Lasix 40 mg IV 3 times a day; will start torsemide 100 mg a day on discharge Will start midodrine 10 mg twice a day Will consult cardiology 4. Acute hypervolemic hyponatremia Expect this to improve with more aggressive UF as above 5. Metabolic acidosis Improving with sodium bicarbonate 650 mg 3 times a day 6. 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 Historically poorly controlled type 2 diabetes A1c of 11%. Subjective: No events overnight. Doing well. Review of Systems: ROS otherwise reviewed and negative Physical Examination: Vitals: Vitals: 09/20/25 0718 09/20/25 0723 09/20/25 0852 09/20/25 0931 BP: (!) 73/48 (!) 92/54 Pulse: 77 76 Resp: 16 (!) 20 (!) 20 Temp: 97.6 degrees F (36.4 degrees C) TempSrc: Oral SpO2: 100% 98% Weight: Height: Intake/Output last 3 shifts: Intake/Output Summary (Last 24 hours) at 09/20/2025 1141 Last data filed at 09/20/2025 0047 Gross per 24 hour Intake -- Output 125 ml Net -125 ml I/O last 3 completed shifts: In: - Out: 125 [Urine:125] General: No acute distress HEENT: Anicteric Neck: Supple CV: Regular rate, no murmurs or rubs. Lungs: CTA B Abd: Soft, abdominal wall edema Extr: No lower extremity edema Neuro: No myoclonus, alert and oriented x 3 Skin : No new rashes Dialysis access: PD catheter CDI Right AV fistula with thrill and bruit Results/Medications Reviewed 09/20/25 11:41 AM: Laboratory, Microbiology, Pathology, Radiology, Cardiology, Medications and Transcriptions reviewed Scheduled Meds: apixaban 5 mg Oral BID atorvastatin 80 mg Oral Nightly buPROPion 75 mg Oral BID busPIRone 15 mg Oral Q8H LUIS cefTRIAXone (ROCEPHIN) IVPB 2,000 mg Intravenous Q24H clopidogreL 75 mg Oral QAM DULoxetine 60 mg Oral QAM insulin glargine 15 Units Subcutaneous BID lispro insulin 0-15 Units Subcutaneous at bedtime [START ON 09/21/2025] insulin lispro 0-30 Units Subcutaneous QAM AC insulin lispro 0-30 Units Subcutaneous Daily before lunch insulin lispro 0-30 Units Subcutaneous Before dinner pantoprazole 40 mg Oral BID senna-docusate 1 tablet Oral BID sodium bicarbonate 650 mg Oral TID sodium chloride (PF) 5 mL Intravenous Q8H LUIS Continuous Infusions: Results from last 7 days Lab Units 09/20/25 0357 09/19/25 1446 WBC K/mcL 12.22* 10.43 HGB g/dL 8.7* 8.9* HCT % 30.0* 29.5* PLT K/mcL 396 349 Results from last 7 days Lab Units 09/20/25 0357 09/19/25 1446 SODIUM mmol/L 133* 129* POTASSIUM mmol/L 3.2* 4.3 CHLORIDE mmol/L 94* 92* BICARB mmol/L 21 18* BUN mg/dL 60* 63* CREATININE mg/dL 6.73* 6.68* EGFR mL/min/1.73 m2 9* 9* GLUCOSE mg/dL 45* 309* CALCIUM mg/dL 8.8 8.6 MAGNESIUM mg/dL 1.8 -- PHOSPHORUS mg/dL 7.7* -- Potential limitations of the note: Parts of this note were created by dictation via voice recognition software ([employer]). The completed note was reviewed for accuracy. However, there may be subtle errors that were not found during the review. If such errors are discovered, or if there are any questions or concerns regarding the recommendations/plan of care, please contact the author of the note prior to undertaking the recommendations/plan of care. AUTHENTICATED BY DELROY FLETCHER ON 09/20/2025 12:57:12[facility]11-06-2025 [facility] and [facility] DAILY PROGRESS NOTE ASSESSMENT & PLAN/ACTIVE MEDICAL PROBLEMS: Abdominal wall anasarca CT abdomen with minimal fluid in the abdomen pelvis seen near the dialysis tip as expected without evidence of peritonitis. WBC 12.2 Patient denies any specific abdominal pain surrounding the catheter insertion site, denies drainage from the site, denies fevers. 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 RESOLVED PROBLEMS: DISPOSITION PLAN - per primary CHIEF COMPLAINT/ HPI / PFSHx / EVENTS OVER LAST 24HRS: Patient reports nausea related to hypoglycemia this am. No other acute events overnight. REVIEW OF SYSTEMS: Other than the above items the remainder of the complete ROS is otherwise unchanged from admission. PHYSICAL EXAM: Temp: [96.1 degrees F (35.6 degrees C)-98 degrees F (36.7 degrees C)] 97.6 degrees F (36.4 degrees C) Heart Rate: [69-85] 76 Resp: [12-21] 20 BP: (73-107)/(48-70) 92/54 FiO2 (%): 21 GENERAL: Appears age appropriate. No acute distress. NEUROLOGICAL: Alert and oriented X 3. Head Eyes Ear Nose Throat: Head: Atraumatic, normocephalic. Eyes: Conjunctivae/sclerae/corneas clear. Ears: External ear normal. Hearing within normal limits for patient. No drainage. Nose: nares normal Throat: phonation normal Neck: Supple, trachea midline CARDIOVASCULAR: Regular rate and rhythm. RESPIRATORY: Respiratory effort unlabored without use of accessory muscles. ABDOMINAL: Rounded, soft, tender to palpation to bilateral lateral abdominal wall, distended, normal bowel sounds. No guarding or peritoneal signs. GENITOURINARY: Normal genitalia for age without lesion or trauma. MUSCULOSKELETAL: Extremities atraumatic without gross deformity x4. No clubbing, cyanosis or joint edema. SKIN: Skin warm and dry. No rashes or lesions. Intake/Output Summary (Last 24 hours) at 09/20/2025 0929 Last data filed at 09/20/2025 0047 Gross per 24 hour Intake -- Output 125 ml Net -125 ml IMAGING [briefly note any results pertinent to today's evaluation]: Reviewed CT imaging- no acute findings, noted anasarca LABS Lab Results Component Value Date WBC 12.22 (H) 09/20/2025 HGB 8.7 (L) 09/20/2025 HCT 30.0 (L) 09/20/2025 MCV 97.1 09/20/2025 PLT 396 09/20/2025 RBC 3.09 (L) 09/20/2025 Lab Results Component Value Date GLUCOSE 45 (CL) 09/20/2025 CALCIUM 8.8 09/20/2025 NA 133 (L) 09/20/2025 K 3.2 (L) 09/20/2025 CL 94 (L) 09/20/2025 BUN 60 (H) 09/20/2025 CREATININE 6.73 (H) 09/20/2025 Lab Results Component Value Date ALT 30 09/19/2025 AST 35 09/19/2025 ALKPHOS 207 (H) 09/19/2025 BILITOT 0.8 09/19/2025 DAILY CHECKLIST: *Need for Restraints: no *Need for Urinary Catheter: no *Need for Central Access Devices: no *Stress Ulcer Prophylaxis: per primary *VTE Prophylaxis (Body mass index is 43.56 kg/m ., Estimated Creatinine Clearance: 12.3 mL/min (A) (by C-G formula based on SCr of 6.73 mg/dL (H)).): per primary *Home Medications Reconciled: per primary *Code Status: full AUTHENTICATED BY LINO OLIVARES, ON 09/20/2025 09:48:12[facility]19-[facility] SURGICAL HISTORY & PHYSICAL/CONSULTATION NOTE ASSESSMENT & PLAN/ACTIVE MEDICAL PROBLEMS: Concern for abdominal wall cellulitis secondary to PD cath infection CT abdomen with minimal fluid in the abdomen pelvis seen near the dialysis tip as expected without evidence of peritonitis. WBC 10.4 with left shift, lactic acid 2.6. Patient denies any specific abdominal pain surrounding the catheter insertion site, denies drainage from the site, denies fevers. Catheter site is dry and intact without any drainage or surrounding erythema. Obtain peritoneal fluid culture AM labs Abdominal wall edema Echo pending Management per primary and nephrology INCIDENTAL FINDINGS: Per primary team. 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 CT scan of his abdomen revealed abdominal wall edema however no evidence of peritonitis surrounding the PD catheter site. The patient has been using his peritoneal dialysis catheter as directed and has not had any retained fluid from peritoneal dialysis. He has not had any fevers or drainage from the site. General surgery was consulted for evaluation. PAST MEDICAL HISTORY (PMH): Past Medical History: Diagnosis Date Anemia Arthritis Coronary artery disease COVID Depression with anxiety Diabetes mellitus, type 2 (HCC) Dyspnea on exertion Gastric tumor Neuroendocrine tumor - takes Sandostatin - inoperable GERD (gastroesophageal reflux disease) Hyperlipidemia Hypertension MS (multiple sclerosis) Myocardial infarction (HCC) 09/2006 Obesity NABOR (obstructive sleep apnea) wears CPAP Proteinuria Rash Stage 5 chronic kidney disease (HCC) not on dialysis...LEGAL ASSOCIATE: Dr. Gracie Miller Venous embolism lungs and legs Vitamin D deficiency Past Surgical History: Procedure Laterality Date APPENDECTOMY CARDIAC CATHETERIZATION N/A 06/21/2024 Procedure: Coronary Angiogram; Surgeon: Melba Singh MD; Location: 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; Service: Cardiovascular CARDIAC CATHETERIZATION N/A 06/21/2024 Procedure: Angioplasy w/Stent- Coronary; Surgeon: Melba Singh MD; Location: 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; Service: Cardiovascular CARDIAC CATHETERIZATION N/A 06/21/2024 Procedure: Angioplasty - Intravascular Lithotripsy - Coronary; Surgeon: Melba Singh MD; Location: 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; Service: Cardiovascular COLONOSCOPY last was 2014, polyps, done in [place], 2 procdures CORONARY ANGIOPLASTY WITH STENT PLACEMENT has had 2 surgeries, 2019 most recent CV IR INTERVENTIONAL RADIOLOGY N/A 06/16/2024 Procedure: VR Dialysis Cath Insert Tunnel; Surgeon: Dariusz Modi MD; Location: IR LAB; Service: Interventional Radiology; Laterality: N/A; ESOPHAGOGASTRODUODENOSCOPY last was done in [place], gastic tumor, INSULIN PUMP AND GLUCOSE SENSOR IR IVC FILTER PLACEMENT 2012 for Blood clots MT L HRT CATH W/NJX L VENTRICULOGRAPHY IMG S&I N/A 06/21/2024 Procedure: Left Heart Cath; Surgeon: Melba Singh MD; Location: 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; Service: Cardiovascular MT LAPS INSERTION TUNNELED INTRAPERITONEAL CATHETER N/A 05/19/2024 PD cath, ESRF.....Dr. Brian Arevalo TATTOO TEETH EXTRACTION TRANSFUSION BLOOD PRODUCT VASECTOMY Social History[1] Family History Problem Relation Age of Onset Uterine cancer Mother Heart disease Father Rheum arthritis Brother Coronary artery disease Brother MEDICATIONS: Medications Ordered Prior to Encounter[2] ALLERGIES: Allergies[3] REVIEW OF SYSTEMS: COVID19 Screen: Negative for fever, cough, SOB, exposure. Constitutional Symptoms: Negative for unexplained falls, weight loss Eyes: Negative for eye pain or vision changes Ears, Nose, Mouth, Throat: Negative for rhinorrhea, nasal pain, dysphagia, hoarseness Cardiovascular: Negative for chest pain, orthopnea, edema Respiratory: Negative for cough, shortness of breath Gastrointestinal: Negative for abdominal pain, nausea, vomiting, diarrhea Genitourinary: Negative for dysuria, hematuria Musculoskeletal: Negative for pain, joint edema Skin/Breast: Negative for rash, itching, lesions Neurological: Negative for paresthesia, paralysis, loss of bowel or bladder control, loss of consciousness Psychiatric: Negative for depression, anxiety, or suicidal ideations Endocrine: Negative for heat/cold intolerance, polydipsia, polyphagia, polyuria Hematologic/Lymphatic: Negative for anticoagulant use, antiplatelet use, family hx of clotting or bleedi (more content not included)...[facility] 09-19-2025 NoteHMS HISTORY AND PHYSICAL -- [facility] Patient name: Lorenzo Amato Date of : 1970 Admission date: 09/19/2025 Physicians: Lion Carlson MD (Family); Gracie Miller MD (Referring) Lorenzo Amato is a 54 y.o. male patient of Lion Carlson MD with history of anemia, CAD, depression, diabetes mellitus, GERD, dyslipidemia, hypertension, MS, morbid obesity, NABOR, presented to [facility] on 09/19/2025 with abdominal pain and concern for cellulitis by nephrology Abdominal anasarca ESRD on PD CHF Exacerbation Has been having peritoneal dialysis since beginning this year Does have a functional HD fistula as well Reportedly urinates approximately 600 mL daily Nephrology consulted and placed orders for peritoneal dialysis Fluid collection of abdominal cavity to send for culture, pending CT abdomen with contrast does not show evidence of encapsulating peritoneal sclerosis. Anasarca present throughout. Received dose of ceftriaxone in the ED already Echo pending Continue with fluid removal per nephrology recommendations Hypotension Holding blood pressure medications, Lasix Continue with PD for now Hypervolemic hyponatremia Likely due to extreme volume overload Ultrafiltration per nephrology Neuroendocrine tumor in the stomach- inoperable Prior bilateral DVT Previous GI bleed while on Eliquis S/p IVC filter which was clotted. Continue Eliquis Hypertension Dyslipidemia Continue statin, hydralazine, metoprolol and Lasix Poorly controlled type II diabetes mellitus Pt has insulin pump, check blood glucose HLHS. Keep BG 140 and 180 Depression Continue Cymbalta and BuSpar History of coronary artery disease Systolic CHF Echo 06/16 with EF 32% and diastolic dysfunction. Heart cath 06/20/2024 shows severe three-vessel coronary artery disease Continue Plavix MS Morbid obesity NABOR BMI 43.56 Lifestyle modification advised to the patient CPAP at nighttime. Admitted with the following risk variables: Chronic Kidney Disease and Fluid Overload. Residence prior to admission: house or apartment Quality measures DVT prophylaxis: eliquis Bill catheter: absent Medication reconciliation: unverified Patient and/or family has been told expected day of discharge is: 4-5 days Potential social barriers to discharge include: none Code status Full Code; code status verified on 09/19/2025 with patient (capacity intact) Chief complaint Abdominal pain History of present illness 55-year-old male with past medical history mentioned above presenting to the hospital originally for abdominal pain, sent by nephrology team as there was some possible concern for abdominal cellulitis from peritoneal catheter infection. At bedside patient has been having issues with fluid output over the past few days, extremely volume overloaded, especially in the abdominal wall. Some redness on the right side there, pleural appears to be due to anasarca rather than an infection. Past medical history Past Medical History: Diagnosis Date Anemia Arthritis Coronary artery disease COVID Depression with anxiety Diabetes mellitus, type 2 (HCC) Dyspnea on exertion Gastric tumor Neuroendocrine tumor - takes Sandostatin - inoperable GERD (gastroesophageal reflux disease) Hyperlipidemia Hypertension MS (multiple sclerosis) Myocardial infarction (HCC) 09/2006 Obesity NABOR (obstructive sleep apnea) wears CPAP Proteinuria Rash Stage 5 chronic kidney disease (HCC) not on dialysis...LEGAL ASSOCIATE: Dr. Gracie Miller Venous embolism lungs and legs Vitamin D deficiency Past surgical history Past Surgical History: Procedure Laterality Date APPENDECTOMY CARDIAC CATHETERIZATION N/A 06/21/2024 Procedure: Coronary Angiogram; Surgeon: Melba Singh MD; Location: 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; Service: Cardiovascular CARDIAC CATHETERIZATION N/A 06/21/2024 Procedure: Angioplasy w/Stent- Coronary; Surgeon: Melba Singh MD; Location: 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; Service: Cardiovascular CARDIAC CATHETERIZATION N/A 06/21/2024 Procedure: Angioplasty - Intravascular Lithotripsy - Coronary; Surgeon: Melba Singh MD; Location: 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; Service: Cardiovascular COLONOSCOPY last was 2014, polyps, done in [place], 2 procdures CORONARY ANGIOPLASTY WITH STENT PLACEMENT has had 2 surgeries, 2019 most recent CV IR INTERVENTIONAL RADIOLOGY N/A 06/16/2024 Procedure: VR Dialysis Cath Insert Tunnel; Surgeon: Dariusz Modi MD; Location: IR LAB; Service: Interventional Radiology; Laterality: N/A; ESOPHAGOGASTRODUODENOSCOPY last was done in [place], gastic tumor, INSULIN PUMP AND GLUCOSE SENSOR IR IVC FILTER PLACEMENT 2012 for Blood clots MT L HRT CATH W/NJX L VENTRICULOGRAPHY IMG S&I N/A 06/21/2024 Procedure: Left Heart Cath; Surgeon: Melba Singh MD; Location: 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; Service: Cardiovascular (more content not included)...[facility]11-05-2025 NoteNEPHROLOGY CONSULTATION NOTE [facility] Patient Name: Lorenzo Amato MR #: [id number] : 1970 Requesting provider: Hospitalist Reason for consult: End-stage kidney disease management Impression/Plan: End-stage kidney disease on CAPD with Dr. Carline Miller Previously on HD from June to August 2024 -EDW of 130kg Last 24hr urine collection of 600 cc - Last PD cycle this morning with 2.5 L fill volume and UF of 3.1 L. Patient reports that he has been doing PD well without any issues over the last several weeks. He noted sudden onset abdominal wall edema over the last week. Given physical exam findings of indurations and abdominal wall and although low suspicion for EPS, I spoke with patient and regarding need for contrast-enhanced CT to evaluate for this. They understand that IV contrast may result in loss of residual renal function. However EPS is an important entity to exclude in this case. They understand risks, benefits, and alternatives to contrast procedure. They wish to proceed with it. Reassuringly contrast-enhanced CT did not show findings concerning for EPS. - For tonight we will attempt CCPD with 3.5 L fill volume 2.5% dextrose solution, 6 cycles, 2-1/2-hour dwell time. - Reassuringly he does not have uremic symptoms. At this time there is no urgent need to change modalities. - Although low suspicion, will check peritoneal fluid cell count and culture to evaluate for peritonitis 2. Abdominal wall edema -It is possible that his abdominal wall edema may simply be due to anasarca and he may need more aggressive UF. -His last 2D echo in January 2025 showed EF of 35 to 40% with grade 2 HFpEF -LHC in February showed L elevated LVEDP; he had PTCA of LAD and left main -Will repeat 2D echo 3. Hypotension Hold Entresto, Lasix, metoprolol for now 4. Acute hypervolemic hyponatremia Expect this to improve with more aggressive UF as above 5. Metabolic acidosis Continue sodium bicarbonate 650 mg 3 times a day 6. 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 Historically poorly controlled type 2 diabetes Will update A1c History of Presenting Illness: Lorenzo Amato is a 55 y.o. male with end-stage kidney disease on peritoneal dialysis presents to the hospital with circumferential indurations on his abdomen that are nontender nonerythematous and nonpruritic. Patient reported developed these indurations over the last 1 week. During this time, patient has been compliant with his PD treatments and has been doing manual exchanges of 4 cycles. He instills 2.5 L fill volume and gets roughly 3 to 3.1 L with each cycle. Patient reports normal appetite; no malaise; he endorses some shortness of breath. History: Past Medical History: Diagnosis Date Anemia Arthritis Coronary artery disease COVID Depression with anxiety Diabetes mellitus, type 2 (HCC) Dyspnea on exertion Gastric tumor Neuroendocrine tumor - takes Sandostatin - inoperable GERD (gastroesophageal reflux disease) Hyperlipidemia Hypertension MS (multiple sclerosis) Myocardial infarction (HCC) 09/2006 Obesity NABOR (obstructive sleep apnea) wears CPAP Proteinuria Rash Stage 5 chronic kidney disease (HCC) not on dialysis...LEGAL ASSOCIATE: Dr. Gracie Miller Venous embolism lungs and legs Vitamin D deficiency Past Surgical History: Procedure Laterality Date APPENDECTOMY CARDIAC CATHETERIZATION N/A 06/21/2024 Procedure: Coronary Angiogram; Surgeon: Melba Singh MD; Location: 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; Service: Cardiovascular CARDIAC CATHETERIZATION N/A 06/21/2024 Procedure: Angioplasy w/Stent- Coronary; Surgeon: Melba Singh MD; Location: 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; Service: Cardiovascular CARDIAC CATHETERIZATION N/A 06/21/2024 Procedure: Angioplasty - Intravascular Lithotripsy - Coronary; Surgeon: Melba Singh MD; Location: 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; Service: Cardiovascular COLONOSCOPY last was 2015, polyps, done in [place], 2 procdures CORONARY ANGIOPLASTY WITH STENT PLACEMENT has had 2 surgeries, 2019 most recent CV IR INTERVENTIONAL RADIOLOGY N/A 06/16/2024 Procedure: VR Dialysis Cath Insert Tunnel; Surgeon: Dariusz Modi MD; Location: IR LAB; Service: Interventional Radiology; Laterality: N/A; ESOPHAGOGASTRODUODENOSCOPY last was done in [place], gastic tumor, INSULIN PUMP AND GLUCOSE SENSOR IR IVC FILTER PLACEMENT 2012 for Blood clots MT L HRT CATH W/NJX L VENTRICULOGRAPHY IMG S&I N/A 06/21/2024 Procedure: Left Heart Cath; Surgeon: Melba Singh MD; Location: 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; Service: Cardiovascular [place] LAPS INSERTION TUNNELED INTRAPERITONEAL CATHETER N/A 05/19/2024 PD cath, [facility].....Dr. Brian Arevalo TATTOO TEETH EXTRACTION TRANSFUSION BLOOD PRODUCT VASECTOMY Family History: Family History Problem Relation Age of Onset Uterine cancer Mother Heart disea (more content not included)...[facility]05-20-2025 History of Present illness Narrative* Alyson Davila, PT - 04/03/2025 1:58 PM EDT 04/03/25 1345 Treatment Diagnosis Treatment Diagnosis 1 PCI PCI Date 02/13/25 Treatment Diagnosis 2 NSTEMI Referral Date 03/22/25 Co-morbidities Diabetes;Renal disease Individual Treatment Plan ITP Visit Type Initial assessment ITP Next Review Date 05/01/25 Visit #/Total Visits 0/36 EF% 36 % Risk Stratification High Supplemental Oxygen Oxygen Use No Exercise Assessment Stages of Change Preparation Test (Average MET) Exercise Intervention/Prescription Mode Treadmill;Bike;Stepper;Ergometer Frequency per week 2-3x per week Duration Per Session 31-90 minutes Intensity METS 2-3 METs Target RPE 11-16 Progression Per FITT protocol Symptoms with Exercise Shortness of breath Target Heart Rate 103-124 Exercise Activity at Home Type NONE Exercise Education Education Equipment orientation;Exercise safety;RPE scale;Signs/symptoms to report;Warm up/cool down Exercise Goals Patient Target Goals Aerobic activity 30 + minutes/day 5 days/week;Decrease dyspnea (exercise);Improve endurance;Individual exercise RX;Maintain exercise and activity at a moderate intensity Patient Treatment Goal Progress exericse frequency, intensity, time, and type at 0.5-1.0 METs and/or 5-10 minutes/week, while maintaining an RPE of 11-16, heart rate within target range. Goal Status Initial Psychosocial Assessment Stages of Change Maintenance Psychosocial Intervention Interventions Currently under treatment for depression Stress Management Techniques Uses guided meditation Currently Taking Psychotropic Meds Yes Medication Changes No Psychosocial Goals Patient Target Goals Maximizes coping skills Patient Treatment Goal Minimize feelings of stress/depression over program. Goal Status Initial Nutrition Assessment Stages of Change Preparation Nutrition Assessment Tool Rate Your Plate Current Diet Regular and Kidney Diet Height 1.753 m (5' 9 ) Weight 139.2 kg (306 lb 12.8 oz) BMI 45.4 Other Core Component - Weight Management BMI <18.5 or > 24.9, Managed as Core Component Yes Weight Management Goals Patient Target Goals 10% weight loss Patient Treatment Goal Lose >10 lbs Goal Status Initial Other Core Component - Diabetes Diabetes Yes Diabetes Management Assessment Stages of Change Maintenance FBS 311 FBS Date 02/22/25 HgbA1c 8.7 HgbA1c Date 02/22/25 BG at Home Yes BG Frequency Daily Continuous Glucose Monitoring Yes Diabetes Management Interventions Diabetes Med(s) Humalog, Glucagon Diabetes Med(s) Change No Diabetes Management Goals Patient Target Goals HgA1c<7%;Fasting blood glucose 80-130mg/dl;Follow a carbohydrate controlleddiet;Avoid drinking sugar-sweetened beverages;Adherence to and understanding of diabetes medicationtreatment plan Patient Treatment Goal HbA1c<7.0 Goal Status Initial Other Core Component - Lipid Management Lipids Managed as Core Component Yes Lipid Management Assessment Stages of Change Preparation Date Lipids Drawn 02/10/25 Total 96 HDL 35 LDL 45 Triglycerides 80 Lipid Management Interventions Lipid Med(s) Lipitor Lipid Med Change(s) No Lipid Management Goals Patient Target Goals LDL-C less than 70 and non-HDL-C <100 for those with ASCVD;Triglycerides <150 Patient Treatment Goal Achieve lipids WNL. Goal Status Initial Nutrition Goals Patient Target Goals LDL-C less than 70 and non-HDL-C <100 for those with ASCVD;Triglycerides less than 150;HbA1C less than 7 percent for those with diabetes;Weight loss of 5-10% Patient Treatment Goal Lose >10lbs, HbA1c <7.0, lipids, WNL. Goal Status Initial Education Learning Barrier Ready to learn Other Core Component - Hypertension Hypertension Yes Is BP WDL Yes Medications Med(s) Change No BP Meds Toprol XL KWAKU/ARB/ARNI Prescribed No BB Prescribed Yes Antiplatelet/Anticoagulant Prescribed Yes Statins/Anti-hyperlipidemic Prescribed Yes Physician Response MD Response No change, proceed with rehab until discharge Cosigned by Lorenzo Diaz MD at 04/03/2025 10:56 PM EDT * Alyson Davila, PT - 04/03/2025 12:30 PM EDT Cardiac Rehab Initial History and Assessment Lorenzo Amato 1970 [id number] 04/03/2025 Primary Diagnosis: PCI Date of event/procedure: 02/13/2025 Participated in cardiac rehab program before: [x] Yes: During Covid at [place]. KX after 26 sessions. 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 Iniguez Neuroendocrine tumor (HCC) 04/27 stomach Other disorders of kidney and ureter in diseases classified elsewhere PE (pulmonary embolism) Type II or unspecified type diabetes mellitus without mention of complication, not stated as uncontrolled Unspecified sleep apnea Vitamin D deficiency Family History Family History Problem Relation Age of Onset Cancer Mother ovarian Heart Disease Father Arthritis Brother Symptoms: Angina [] None [] Tightness [x] Shortness of Breath [] Pressure [] Nausea [] Sharp, Stabbing [] Pallor [] Indigestion, Heartburn [] Sweaty Where was discomfort located? Physical Activity Precipitating Factors? Relieved by: Rest Arrhythmia [] Yes/describe: [x] No [] Pacer [] AICD Arrhythmia Medications: N/A Nutrition Appetite: [] Too Good [x] Good [] Poor Special Diet: Regular Diet, Kidney Diet as well Dietary Screening: RYP Diet Survey score: Daily Food Diary completed: [] Yes [] No Lab Results Component Value Date/Time TRIG 80 02/10/2025 04:41 AM HDL 35 02/10/2025 04:41 AM LDLDIRECT 76 06/28/2019 01:13 PM Lipid Meds: Lipitor Alcohol: Social History Substance and Sexual Activity Alcohol Use No Comment: couple times/year Caffeine: [x] Yes [] No Type: Coffee Amount: 1 cups Water intake per day: 2-3 bottles Psychological [x] Depression [x] Stress/Anxiety [] None Treatment/Medications: Cymbalta and Buspar Tobacco Use Social History Tobacco Use Smoking Status Never Passive exposure: Never Smokeless Tobacco Former Types: Chew Ask patient about tobacco use Advise tobacco users to quit Assess willingness to quit now Current smokers: Longest quit attempt: Tobacco triggers: Barriers to successful cessation: Ready to quit? [] Yes [] No Assist tobacco user with a quit plan Arrange follow up [] Smoking cessation medication: Diabetes [x] Yes [] No How Long: since 2004 How do you manage your diabetes: Do you check your blood sugar? [x] Yes [] No How often: Has insulin pump and sensor Have you seen a beating machine operator or ict educator? [] Yes [] No BMI <= 35? [x] Yes - Waist circumference: [] No Lab Results Component Value Date/Time LABA1C 8.7 02/22/2025 03:46 PM Glucose (mg/dL) Date Value 02/22/2025 311 (H) 01/01/2012 142 (H) Diabetic Medication: Humalog and Glucagon(low BS levels) Metabolic Syndrome (Insulin resistance syndrome) 3 or more of the following clinical characteristics: 1) Triglycerides >= 150mg/dL Lab Results Component Value Date TRIG 80 02/10/2025 TRIG 140 03/17/2024 TRIG 247 (H) 03/22/2023 2) HDL <35/<40 Lab Results Component Value Date HDL 35 (L) 02/10/2025 HDL 40 (L) 03/17/2024 HDL 34 (L) 03/22/2023 4) BP>=130/>=85 mmHg 106/58 5) Fasting Glucose >=110 mg/dL Glucose (mg/dL) Date Value 02/22/2025 311 (H) 01/01/2012 142 (H) [x] Yes [] No [] NA Socio-Economic Marital Status: Medication Compliance MMAS-8 Score: Stress Source(s): Relaxation techniques/hobbies: Level of Education [] 8th Grade [] Associates [] Masters [] High School [] Bachelor [] Other: Depression Screening: [] PHQ9 score: Psychosocial Screening: [] Tool Used: Jeremias Quality of Life Score: QLI - Health/Functioning - Social/Economic - Psychological/Spiritual - Family - Cardiac Rehab Pre - Test [] Score: Physical Findings Height: 5'9 Weight: 306.8 lbs BMI: 45.3 Weight goal: <275 BP Sittin/58 BP Standing: Current Exercise - [] Yes - type/frequency/intensity/duration [x] No Cardiovascular- No edema, apical pulse regular to auscultation, strong bilateral upper extremity pulses 12-Lead EKG - Date: 03/01/2025 VR- 79 MT- 200 QRS- 104 QT/QTc- 400/458 Normal Sinus Rhythm Cardiac Cath- 02/12/2025 Left Main Has distal 60% stenosis Left Anterior Descending Has ostial 95% stenosis followed by previously placed stent in the proximal to mid segment with 30%in-stent restenosis. Distal LAD has 80% stenosis. D1 has proximal stent placement with 90% in-stentrestenosis Left Circumflex Has heavy calcification with mid 85% stenosis. OM1 has ostial 50% stenosis. LPL is 30% stenosis Right Coronary Artery Has proximal 100% occlusion with robust [id number] collaterals Ejection Fraction- 36% (02/12/2025) Pulmonary- Breath Sounds: SpO2: 97% Use of: [] 02 [x] CPAP [] BiPAP [] None Stages of Change: [] pre-contemplation [] Action [x] Contemplate [] Maintenance [x] Prep [] Relapse Barriers to Program Adherence: [] Transportation [x] Travel distance [] Insurance/copay [x] Motivation [] Other [] None Risk Stratification (of untoward event during exercise): [x] HIGH RISK LVEF < 40% Survivor of cardiac arrest or sudden cardiac Complex ventricular arrythmias (VT >6 beats, multifocal PVCs at rest or with exercise) Presence of angina or other significant symptoms (shortness of breath, light- headedness, or dizziness at <5 METs or during recovery CO or cardiac surgery complicated by cardiogenic shock, CHF, and/or s/s of post- procedure ischemia Abnormal hemodynamics with exercise, especially flat or decreasing systolic BP or chronotropic incompetence with ^ workload Significant silent ischemia (ST depression >/= 2mm without symptoms with exercise or in recovery Signs/symptoms including angina, dizziness, light-headedness or dyspnea with low exercise levels melvin recovery Clinically significant depression Physically Inactive - <= 5 METs Implantable cardioverter defibrillator (ICD) At least 4 of below: Lipids LDL >130 / Cholesterol > 200 BP >160/100 BMI >30 Smoker who continues to smoke DM - HgbA1c >=7 [] MODERATE RISK LVEF 40-49% Mild to moderate level of silent ischemia during exercise testing or recovery (ST depression <2mm from baseline) Presence of stable angina or other significant symptoms (unusual shortness of breath, light-headedness, or dizziness occurring only at high level of exertion [>=7 METs]) Functional capacity 5.1-8.9 METs At least 2-3 of below: Lipids LDL 100-129 / Cholesterol 150-199 BP - systolic 130-159/diastolic 86-99 BMI >30 DM - HgbA1c 5.8-7.0 [] LOW RISK Rest LVEF >= 50% No resting or exercise induced complex dysrhythmias Uncomplicate CO, CABG, angioplasty, atherectomy, or stent Normal hemodynamic and EGC response with exercise and in recovery (appropriate increases and decreases in HR and SBP with increasing workloads and recovery Functional capacity >9 METs Absence of angina or other significant symptoms (unusual shortness of breath, light-headedness, or dizziness during exercise and recovery) Absence of complicated ventricular arrhythmias at rest Absence of HF Absence of signs/symptoms of post-event or post-procedure ischemia Absence of clinical depression Non-smoker 0-1 Uncontrolled risk factors Fall Risk Assessment: History of falls with or without injury [] Yes [x] No Use of ambulatory aid [] Yes [x] No Difficulty walking/impaired gait [x] Yes [] No Numbness in feet [] Yes [x] No Vision changes [] Yes [x] No Dizziness [x] Yes [] No Shortness of breath [x] Yes [] No Medications [x] Anticoagulant/Antiplatelet [x] Betablocker /KWAKU/ARB [x] Antidepressant [] Seizure medication [] NA Risk of fall [] Low (none of above) [] Medium (less than 3 above) [x] High (3 or more above) Patient 90-Day Goals: (Specific, Measurable, Achievable, Relevant, and Time-Bound) Increase FC. Program Goals: Achieve and progress prescribed exercise frequency, intensity, time, and type based upon initial evaluation and submaximal graded exercise/6MWT results as evidenced by the attaining and maintaining the prescribed target heart rate range, a Ami rating of perceived exertion between 11 and 16, duration of 31 - 90 minutes using multiple exercise modes for at least 3 days/week, progressing at least 0.5-1.0 METs/week as tolerated, as evidenced by daily session reports and pre/post MET levels. Introduce and progress 8-10 different bilateral UE and/or LE progressive resistance exercises focused on major muscle groups using 1-3 sets each per lift, on 2-3 non-consecutive days implementing free and machine weights and/or bands, as appropriate, with a resistance of 40-60% 1-repetition maximumor 10 -15 repetitions to progressive overload and increasing resistance once repetitions have progressed to 15 reps and feel fairly light on 2 prior occasions. Develop regular home aerobic exercise program for 20 - 60 minutes at least 2 non-rehab days per week, excluding 5 - 10 minutes warm-up and cool-down periods, as tracked on home workout log. Establish and maintain individualized heart healthy eating plan and gradually achieve/maintain a healthy body weight over the program utilizing beating machine operator recommendations, as well as moderating nutritional intake, and performing regular aerobic and strength training exercises as prescribed, as evidenced by routine weights, pre- and post-program nutrition survey and routine rounding with patient, food diary, and diet screening survey. Strive for blood lipid optimization with an LDL-C of <100 mg/dL or LDL 70 mg/dL, an HDL-C of > or = 40 mg/dL for men and > or = 50 mg/dL for women, and a triglyceride level of <150 mg/dL via lifestyle education, behavioral modification, and medication compliance, as evidenced by improved post-program lipid results. Strive for HbA1c <= 7.0% via lifestyle education, behavioral modification, and medication compliance as evidenced by post program HbA1C lab results. Achieve and maintain an optimal average resting blood pressure of <130 / 80 mmHg over the courseof the program by educating patient, monitoring medication compliance, introducing and maintaining regular cardiovascular exercise program, as evidenced by routine BP monitoring. Minimize self-reported psycho-social feelings of stress over the program by educating patient, monitoring medication compliance, introducing and maintaining regular cardiovascular exercise as evidenced by pre- and post- surveys and by routine rounding with patient. Demonstrate knowledge about risk factor reduction, lifestyle modification, and heart health strategies with a score of >=75% via education classes and counseling as evidenced by pre- and post-program education assessment screening tool. Complete abstinence from tobacco products over the cardiac rehab program through intensive counseling, behavior modification, and medication compliance as evidenced by routine rounding with patient. * Alyson Davila PT - 04/03/2025 12:30 PM EDT Phase II Cardiac Rehabilitation Physician Order Form Lorenzo Amato 1970 [id number] 04/03/2025 Procedure/Code: Phase 2 Cardiac Rehabilitation/00714 Diagnosis/Code: PCI / Z95.5 Onset/Procedure Date: 02/13/2025 Prescribed Exercise Plan: Submaximal exercise evaluation at program beginning and completion Target HR: 103-124 (40-60% HRR) Initial MET Level: 2-6 METs Duration: 31 - 90 Minutes Frequency: 3 Days per week Modalities: Treadmill Airdyne Bicycle ergometer/UBE Seated Stepper Rowing Machine Weights/Wt Machine/Bands/Neuromotor Progress exercise per FITT protocol: Achieve and progress prescribed exercise frequency, intensity, type, and time based upon initial evaluation/submaximal graded exercise/6MWT results, at least 3 X per week, maintaining the prescribed target heart rate range, a Ami rating of perceived exertion between 11 and 16, duration of 31 - 90 minutes using multiple exercise modes, (including, but not limited to, rower, bicycle, arm ergometer, recumbent stepper, treadmill) on at least 3 days/week, progressing at least 0.5-1.0 METs/week and/or 5-10 minutes/week as tolerated, while adhering to guidelines and patient centered goals. Introduce 8-15 bilateral upper /lower extremity resistance exercise at 1-3 sets per lift, on 2-3 non-consecutive days using Band/weights to 8-15 reps on at lease 2 occasions, maintaining RPE 12-16. Once repetition maximum has been achieved, additional weight sets may be added. Standing Orders: Initiate ACLS for cardiac events Nitroglycerine 0.4mg SL every 5 minutes X 3 for angina pain 12 lead EKG for chest pain or dysrhythmia O2 per nasal cannula as needed for SpO2 <90% Random blood glucose per lab for hyper/hypoglycemia symptoms Lipid panel pre/post program as needed. May continue in Phase III/maintenance program at program completion Cosigned by Mak Bey MD at 04/03/2025 8:38 PM EDT [facility] History of Present illness Narrative* Augusta Olson - 02/14/2025 5:23 PM EDT CLINICAL PHARMACY NOTE: MEDS TO BEDS Total # of Prescriptions Filled: 3 The following medications were delivered to the patient: Aspirin 81mg Hydralazine 25mg Clopidogrel 75mg Additional Documentation: delivered to patient in room 1010 02/14 at 5:18pm. Co- pay $39.48 clover. * Trevor Serna MD - 02/14/2025 10:14 AM EDT Images from the original note were not included. Today's Date: 02/14/2025 Patient Name: Lorenzo Amato Date of admission: 02/09/2025 5:43 PM Patient's age: 54 y.o., 1970 Admission Dx: NSTEMI (non-ST elevated myocardial infarction) ([facility]) [I21.4] CAD in [place] artery [I25.10] Reason for Consult: management recommendations Requesting Physician: Mak Bey MD Chief Complaint: Chest pain History Obtained From: patient, electronic medical record Interval Changes: Patient seen and examined at bedside Chart, labs and vitals reviewed He is hemodynamically stable, afebrile He underwent high risk PCI with extensive lithotripsy and stent yesterday Hemoglobin stable at 9.9 Creatinine 7.0 He denies pain, tells me he did not sleep well overnight History of Present Illness: The patient is a 54 y.o. 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 He was admitted for NSTEMI . He underwent cardiac catherization which showed multivessel disease, he is being evaluated for CABG, EF on LV gram is 15%. 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 On this admission Hb is 9.6, platelet count 214 On evalustion patient is hemodynamically stable, on heparin gtt, on room air, Past Medical History: has a past medical history of Anemia, Arthritis, CAD (coronary artery disease), Chronic kidney disease, CKD (chronic kidney disease), 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 dialysis, Depression, Disease of blood and blood forming organ, DVT (deep venous thrombosis) (HCC), GERD (gastroesophageal reflux disease), GERD (gastroesophageal reflux disease), GI bleed, Lori filter in place, History of blood transfusion, Hypercholesteremia, Hypertension, Liver metastases, CO (myocardial infarction) (HCC), MS (multiple sclerosis) (HCC), Neuroendocrine tumor (HCC), Other disorders of kidneyand ureter in diseases classified elsewhere, PE (pulmonary embolism), Type II or unspecified type di abetes mellitus without mention of complication, not stated as uncontrolled, Unspecified sleep apnea, and Vitamin D deficiency. Past Surgical History: has a past surgical history that includes Tonsillectomy; Appendectomy; Percutaneous Transluminal Coronary Angio; Colonoscopy; Vasectomy (18 years ago); Thyroid surgery (05/11/2013); Coronary angioplasty with stent (2004); Upper gastrointestinal endoscopy (10/14/2016); AV fistula creation (08/29/2024); Dialysis fistula creation (Right, 08/29/2024); and Cardiac catheterization (02/13/2025). Medications: Prior to Admission medications Medication Sig Start Date End Date Taking? Authorizing Provider ELIQUIS 5 MG TABS tablet TAKE ONE TABLET BY MOUTH TWICE A DAY 12/22/24 Yes Lion Carlson MD AURYXIA 1 GM 210 MG(Fe) TABS tablet Take 1 tablet by mouth 2 times daily (with meals) 10/25/24 Yes Myron Styles MD furosemide (LASIX) 80 MG tablet Take 1 tablet by mouth 2 times daily 10/26/24 Yes Myron Styles MD epoetin santino (EPOGEN;PROCRIT) 17014 UNIT/ML injection Inject 1 mL into the skin Every Wednesday, Wednesday, and Wednesday Yes Myron Styles MD HUMALOG 100 UNIT/ML SOLN injection vial Use via pump max dose 350 units/day 12/01/24 Yes Charles Nowak MD pantoprazole (PROTONIX) 40 MG tablet Take 1 tablet by mouth in the morning and at bedtime 11/16/24 Yes Lion Carlson MD atorvastatin (LIPITOR) 80 MG tablet TAKE 1 TABLET BY MOUTH ONE TIME DAILY 10/30/24 Yes Jyotsna Her APRN - CNP DULoxetine (CYMBALTA) 60 MG extended release capsule TAKE ONE CAPSULE BY MOUTH ONE TIME DAILY 10/30/24 Yes Jyotsna Her APRN - CNP sacubitril-valsartan (ENTRESTO) 24-26 MG per tablet Take 1 tablet by mouth 2 times daily 10/30/24 Yes Jyotsna Her APRN - CNP busPIRone (BUSPAR) 15 MG tablet TAKE ONE TABLET BY MOUTH THREE TIMES A DAY 10/05/24 Yes Lion Carlson MD clopidogrel (PLAVIX) 75 MG tablet Take 1 tablet by mouth daily 08/03/24 Yes Lion Carlson MD metoprolol succinate (TOPROL XL) 100 MG extended release tablet Take 1 tablet by mouth in the morning and at bedtime 06/22/24 Yes Myron Styles MD hydrALAZINE (APRESOLINE) 50 MG tablet Take 2 tablets by mouth 2 times daily 07/19/24 Yes Myron Styles MD octreotide ACETATE (SANDOSTATIN LAR DEPOT) 30 MG injection INJECT 30MG INTRAMUSCULARLY ONCE EVERY 28 DAYS 04/21/24 Yes Trevor Serna MD triamcinolone (KENALOG) 0.1 % cream Apply to the affected area 2 times a day. 03/17/24 Yes Lion Carlson MD clotrimazole-betamethasone (LOTRISONE) 1-0.05 % cream Apply topically 2 times daily. 09/22/23 Yes Trevor Serna MD vitamin D (ERGOCALCIFEROL) 1.25 MG (76177 UT) CAPS capsule Take 1 capsule by mouth once a week 01/30/21 Yes Lion Carlson MD Insulin Pen Needle 31G X 8 MM MISC 1 each by Does not apply route 4 times daily Use four times daily with insulin. 04/04/20 Yes Lion Carlson MD sennosides-docusate sodium (SENOKOT-S) 8.6-50 MG tablet Take 2 tablets by mouth 2 times daily as needed for Constipation 10/07/19 Yes Suni Murphy MD blood glucose test strips (JUDITH NO CODING BLOOD GLUC) strip 1 each by In Vitro route 3 times daily As needed. Please dispense 3 boxes of 100. 12/01/24 Charles Nowak MD meclizine (ANTIVERT) 25 MG tablet Take 1 tablet by mouth 3 times daily as needed for Dizziness 10/30/24 Jyotsna Her, PROCESS OWNER - CLAIMS ADJUSTOR calcitRIOL (ROCALTROL) 0.5 MCG capsule TAKE 1 CAPSULE BY MOUTH THREE DAYS (TIMES) A WEEK ON MON, WED & WED Patient not taking: Reported on 02/09/2025 10/02/24 Myron Styles MD nitroGLYCERIN (NITROSTAT) 0.[address] 1 tablet under the tongue every 5 minutes as needed for Chest pain 06/22/24 Myron Styles MD fluticasone (FLONASE) 50 MCG/ACT nasal spray 2 sprays by Nasal route daily 09/02/23 Back, Lion, MD Prodigy Lancets 28G MISC 1 box by Does not apply route 3 times daily 04/04/20 Lion Carlson MD glucagon 1 MG injection Mix and inject entire contents of vial into muscle for severe low blood sugar 04/04/20 Lion Carlson MD Current Facility-Administered Medications Medication Dose Route Frequency Provider Last Rate Last Admin apixaban (ELIQUIS) tablet 5 mg 5 mg Oral BID Margi Díaz MD 5 mg at 02/14/25 0830 sodium chloride flush 0.9 % injection 5-40 mL 5-40 mL IntraVENous 2 times per day Hoang Bravo MD10 mL at 02/14/25 0829 sodium chloride flush 0.9 % injection 5-40 mL 5-40 mL IntraVENous PRN Hoang Bravo MD 0.9 % sodium chloride infusion IntraVENous PRN Hoang Bravo MD acetaminophen (TYLENOL) tablet 650 mg 650 mg Oral Q4H PRN Hoang Bravo MD 0.9 % sodium chloride infusion IntraVENous PRN Grey Chacon MD ticagrelor (BRILINTA) tablet 90 mg 90 mg Oral BID Margi Díaz MD 90 mg at 02/13/25 2039 aspirin EC tablet 81 mg 81 mg Oral Daily Margi Díaz MD 81 mg at 02/14/25 0829 DULoxetine (CYMBALTA) extended release capsule 60 mg 60 mg Oral Daily Margi Díaz MD 60 mg at 02/14/25 0824 hydrOXYzine HCl (ATARAX) tablet 10 mg 10 mg Oral TID PRN Margi Díaz MD insulin glargine (LANTUS) injection vial 45 Units 45 Units SubCUTAneous Daily Margi Díaz MD 45Units at 02/14/25 0921 ceFAZolin (ANCEF) 1,000 mg in sterile water 10 mL IV syringe 1,000 mg IntraVENous Q24H Rnee Monroy MD 1,000 mg at 02/13/25 2145 insulin lispro (HUMALOG,ADMELOG) injection vial 0-16 Units 0-16 Units SubCUTAneous 4x Daily AC & HS Tania Aguilar MD 4 Units at 02/14/25 0615 hydrALAZINE (APRESOLINE) tablet 25 mg 25 mg Oral BID Carrie Sharp MD 25 mg at 02/13/252014 sodium bicarbonate tablet 650 mg 650 mg Oral BID Carrie Sharp MD 650 mg at 02/14/25 0824 glucose chewable tablet 16 g 4 tablet Oral PRN Tania Aguilar MD dextrose bolus 10% 125 mL 125 mL IntraVENous PRN Tania Aguilar MD Or dextrose bolus 10% 250 mL 250 mL IntraVENous PRN Tania Aguilar MD glucagon injection 1 mg 1 mg SubCUTAneous PRN Tania Aguilar MD dextrose 10 % infusion IntraVENous Continuous PRN Tania Aguilar MD dianeal lo-nader 2.5% 2,500 mL 2,500 mL IntraPERitoneal 4x Daily Zee Gonzales APRN - NUTRITION AIDE 2,500 mL at 02/14/25 0901 sodium chloride flush 0.9 % injection 5-40 mL 5-40 mL IntraVENous 2 times per day Kanwal Preciado APRN - CLAIMS ADJUSTOR 10 mL at 02/14/25 0828 sodium chloride flush 0.9 % injection 10 mL 10 mL IntraVENous PRN Kanwal Preciado APRN - CNP 0.9 % sodium chloride infusion IntraVENous PRN Kanwal Preciado APRN - CNP ondansetron (ZOFRAN-ODT) disintegrating tablet 4 mg 4 mg Oral Q8H PRN Kanwal Preciado APRN - CNP 4 mg at 02/14/25 0038 Or ondansetron (ZOFRAN) injection 4 mg 4 mg IntraVENous Q6H PRN Kanwal Preciado APRN - CNP 4 mg at 02/11/25 1240 acetaminophen (TYLENOL) tablet 650 mg 650 mg Oral Q6H PRN Kanwal Preciado APRN - CNP Or acetaminophen (TYLENOL) suppository 650 mg 650 mg Rectal Q6H PRN Kanwal Preciado APRN - CNP magnesium hydroxide (MILK OF MAGNESIA) 400 MG/5ML suspension 30 mL 30 mL Oral Daily PRN Kanwal Preciado APRN - CNP nitroGLYCERIN (NITROSTAT) SL tablet 0.4 mg 0.4 mg SubLINGual Q5 Min PRN aKnwal Preciado APRN - CNP morphine injection 4 mg 4 mg IntraVENous Once PRN Kanwal Preciado APRN - CNP atorvastatin (LIPITOR) tablet 80 mg 80 mg Oral Nightly Cnythia Magana PROCESS OWNER - NUTRITION AIDE 80 mg at 02/13/25 2039 busPIRone (BUSPAR) tablet 15 mg 15 mg Oral TID [facility] 15 mg at 02/14/25 0825 furosemide (LASIX) tablet 80 mg 80 mg Oral BID [facility] NUTRITION AIDE 80 mg at 02/14/25 0824 meclizine (ANTIVERT) tablet 25 mg 25 mg Oral TID PRN TxwyattCynthia APRN - NP metoprolol succinate (TOPROL XL) extended release tablet 100 mg 100 mg Oral BID [facility] PROCESS OWNER - NUTRITION AIDE 100 mg at 02/14/25 1002 pantoprazole (PROTONIX) tablet 40 mg 40 mg Oral BID [facility] N[facility]ITION AIDE 40 mg at 02/14/25 0824 heparin (porcine) injection 4,000 Units 4,000 Units IntraVENous PRN [facility] PROCESS OWNER - NUTRITION AIDE 4,000Units at 02/13/25 0049 heparin (porcine) injection 2,000 Units 2,000 Units IntraVENous PRN [facility] - NUTRITION AIDE 2,000Units at 02/11/25 0037 gentamicin (GARAMYCIN) 0.1 % cream Topical Daily PRN Xenia Underwood MD Allergies: Ketorolac tromethamine and Lisinopril Social History: reports that he has never smoked. He has never been exposed to tobacco smoke. He has quit using smokeless tobacco. His smokeless tobacco use included chew. He reports that he does notdrink alcohol and does not use drugs. Family History: family history includes Arthritis in his brother; Cancer in his mother; Heart Disease in his father. Review of Symptoms: Constitutional: No fever or chills. No night sweats. Eyes: No eye discharge, double vision, or eye pain. HEENT: negative for sore mouth, sore throat, hoarseness and voice change. Respiratory: negative for cough , sputum, dyspnea, wheezing, hemoptysis, dyspnea on exertion. Cardiovascular: negative for chest pain, dyspnea, palpitations, orthopnea, lower extremity edema. Gastrointestinal: negative for nausea, vomiting, diarrhea, constipation, abdominal pain, dysphagia. Genitourinary: negative for frequency, dysuria, nocturia, urinary incontinence, and hematuria. Integument: negative for rash, skin lesions, bruises. Hematologic/Lymphatic: negative for easy bruising, bleeding, lymphadenopathy, or petechiae. Endocrine: negative for heat or cold intolerance,weight changes, change in bowel habits and hair loss. Musculoskeletal: negative for myalgias, arthralgias, pain, joint swelling, and bone pain. Neurological: negative for headaches, dizziness, seizures, weakness, numbness. PHYSICAL EXAM: BP (!) 120/57 Pulse 84 Temp 97.7 F (36.5 C) (Oral) Resp 27 Ht 1.753 m (5' 9 ) Wt (!) 136.7 kg (301 lb 5.9 oz) SpO2 100% BMI 44.50 kg/m Temp (24hrs), Av.2 F (36.8 C), Min:97.7 F (36.5 C), Max:98.8 F (37.1 C) General: Pleasant and cooperative. No apparent distress. HEENT: Normocephalic, atraumatic, mucus membranes moist. Neck: Trachea midline. No adenopathy. Chest: Symmetric chest rise. Lungs clear to auscultation bilaterally, no wheezes, rales, crackles or rhonchi. No accessory muscle use. CV: Regular rhythm. No murmur, no gallops, no rubs. Abdomen: Abdomen is soft, non-tender, non-distended, no rebound or guarding. Bowel sounds active. Extremities: No lower extremity edema or cyanosis, peripheral pulses intact. Neurological: A&O x3, no focal deficits. Skin: Warm and dry. Labs: Complete Blood Count: Recent Labs 02/13/25 0549 02/13/25 1806 02/14/25 0842 WBC 7.5 9.0 -- HGB 9.6* 8.7* 9.9* MCV 95.5 96.1 -- PLT 214 222 -- RBC 3.35* 3.08* -- HCT 32.0* 29.6* 33.5* MCH 28.7 28.2 -- MCHC 30.0 29.4 -- RDW 20.1* 19.9* -- MPV 9.8 10.0 -- PT/INR: Lab Results Component Value Date/Time PROTIME 16.1 02/09/2025 07:58 PM PROTIME 30.7 09/05/2011 04:12 PM INR 1.3 02/09/2025 07:58 PM PTT: Lab Results Component Value Date/Time APTT 60.9 02/13/2025 12:07 PM Basal Metabolic Profile: Recent Labs 02/13/25 0549 02/13/25 1806 02/14/25 0330 NA 132* 130* 132* K 4.8 4.8 4.5 BUN 52* 54* 52* CREATININE 7.0* 7.1* 7.0* CL 96* 94* 94* CO2 18* 20 19* LFTs No results for input(s): ALKPHOS , ALT , AST , BILITOT , BILIDIR , LABALBU in the last 72 hours. Imaging: Cardiac procedure Result Date: 02/13/2025 Ultrasound-guided right common femoral arterial 6 [place] access. Two perclose sutures deployed in preclose fashion. Left heart cath-LV pressures -elevated 36mmHg. Pigtail catheter removed and ImpellaCP catheter placed successfully and LV for hemodynamic support which is indicated due to severe ischemic cardiomyopathy with distal left main ostial LAD circumflex distal LAD disease. Unable to pass shockwave balloon to mid left circumflex. Angioplasty performed followed by GuideLiner assisted delivery of shockwave balloon to mid left circumflex. Successful shockwave lithotripsy of mid left circumflex as well as proximal left circumflex. Successful PTCA/TIFFANIE of distal LAD. Successful shockwave lithotripsy of ostial/proximal LAD. Successful shockwave lithotripsy of distal left main. Successful PTCA/TIFFANIE of left main with a stent extending into proximal LAD. DK crush technique for bifurcation of distal left main/ostial LAD/ostial left circumflex. Impella catheter was successfully removed Hemos tasis achieved with preclosed sutures. There was a ooze around the sheath during the case with estimated blood loss of 200 cc approximately. Type and crossmatch ordered Echo (TTE) complete (PRN contrast/bubble/strain/3D) Result Date: 02/12/2025 Left Ventricle: Moderately reduced left ventricular systolic function with a visually estimated EF of 35 - 40%. EF by 2D Simpsons Biplane is 36%. Left ventricle size is normal. Increased wall thickness. Findings consistent with mild concentric hypertrophy. Global hypokinesis present. Grade II diastolic dysfunction with increased LAP. Right Ventricle: Right ventricle is mildly dilated. Mitral Valve: Mild annular calcification. Mild stenosis noted. MV mean gradient is 4 mmHg. Left Atrium: Left atrium is mildly dilated. Image quality is adequate. Contrast used: Lumason. Cardiac procedure Result Date: 02/12/2025 Ultrasound-guided right common femoral arterial 6 [place] access. Severe multivessel coronary arterydisease. Severe LV systolic dysfunction, LVEF 15%. Elevated LVEDP of 33 mmHg XR CHEST (SINGLE VIEW FRONTAL) Result Date: 02/10/2025 EXAMINATION: ONE XRAY VIEW OF THE CHEST 02/10/2025 7:11 am COMPARISON: 29 July 2024 HISTORY: ORDERING SYSTEM PROVIDED HISTORY: PVC TECHNOLOGIST PROVIDED HISTORY: PVC FINDINGS: AP portable view ofthe chest time stamped at 719 hours demonstrates overlying monitoring electrodes, mild cardiomegalyand mild vascular congestion. Prior right-sided double lumen catheter is not demonstrated. No extrapleural air or effusions. No localized consolidation. Mild cardiomegaly and mild vascular congestion. Impression: Primary Problem NSTEMI (non-ST elevated myocardial infarction) (HCC) Active Hospital Problems Diagnosis Date Noted CAD in [place] artery [I25.10] 02/13/2025 Priority: High NSTEMI (non-ST elevated myocardial infarction) (HCC) [I21.4] 02/09/2025 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 dialysis [Z99.2] 02/09/2025 End stage renal disease (HCC) [N18.6] 12/02/2024 Type 2 diabetes mellitus with hyperglycemia [E11.65] 09/02/2023 Controlled type 2 diabetes mellitus without complication, with long-term current use of insulin [E11.9, Z79.4] 02/17/2022 History of pulmonary embolus (PE) [Z86.711] Morbid obesity due to excess calories [E66.01] 04/29/2016 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 S/p IVC filter, on eliquis. Obstructed IVC filter Multivessel CAD, planning for bypass surgery Type 2 DM ESRD on peritoneal dialysis HFrEF Plan: I reviewed the labs/imaging available to me,outside records and discussed with the patient.I explained to the patient the nature of this problem. I explained the significance of these abnormalities and possible etiology and management options S/P high risk PCI with extensive shockwave lithotripsy and stenting 02/13 Can hold octreotide while inpatient Okay to discharge from oncology standpoint. He will need to follow-up with Dr. Segura / Dr. Mcguire or in our [place] office upon discharge. Sandostatin administration will need to be rescheduled. Oncology nurse navigator is consulted. Final recommendations to follow after discussing with the attending physician, Dr. Serna Discussed with patient and Nurse. Thank you for asking us to see this patient. Ayesha Wharton APRN - [facility] Hematology/Oncology 02/14/2025 Attending Physician Statement I have discussed the care of Lorenzo Amato, and I have examined the patient myselft and taken ros and hpi , including pertinent history and exam findings, with the author of this note. I have reviewed the singer elements of all parts of the encounter with the nurse practitioner/resident. I agree withthe assessment, plan and orders as documented by the above health care provider. I have made necessary changes as deemed appropriate directly in the note. More than 50% of the time was spent taking care of this patient in addition to the nurse practitioner time/ resident. That also included history taking follow- up physical examination and review of system. MD Rahel [facility] This note is created with the assistance of a speech recognition program. While intending to generate a document that actually reflects the content of the visit, the document can still have some errors including those of syntax and sound a like substitutions which may escape proof reading. It such instances, actual meaning can be extrapolated by contextual diversion. * Xenia Underwood MD - 02/14/2025 9:48 AM EDT Renal Progress Note Patient : Lorenzo Amato; 54 y.o. Location: Attending: Mak Bey MD Admit Date: 02/09/2025 Hospital Day: 5 Patient seen on CAPD Subjective: Patient seen and examined at bedside, vital signs stable, afebrile, no acute events overnight. Patient underwent high risk PCI yesterday with extensive shockwave lithotripsy followed by stenting, see cardiology note for details. Urine output documented at 620 mL over the past 24 hours, however overall fluid balance was +530 mL, patient retained 400 mL via CAPD. In spite of this, patient is approximately 4.6 L negative since admission. Weight is down 3.3 kg since admission. Labs reviewed. Recent Labs 02/13/25 0549 02/13/25 1806 02/14/25 0330 NA 132* 130* 132* K 4.8 4.8 4.5 CL 96* 94* 94* CO2 18* 20 19* BUN 52* 54* 52* CREATININE 7.0* 7.1* 7.0* GLUCOSE 319* 272* 286* CALCIUM 8.9 8.8 8.9 Hemoglobin 9.9. Brief History reviewed. Lorenzo Amato; 54 y.o. male with past medical history ESRD secondary to diabetic nephropathy on peritoneal dialysis, poorly controlled type 2 diabetes mellitus on insulin pump, history of DVT and PEs/p clogged IVC filter, on Eliquis, gastric carcinoid tumor on monthly octreotide injections, combined systolic and diastolic heart failure EF 32%, CAD s/p PCI x 3 in June, hypertension, NABOR on CPAP presents from [facility] with sudden onset chest pressure radiating to his left arm and associated with nausea, diaphoresis, shortness of breath. Pain relieved with sublingual nitroglycerin. Troponin 1900,repeat 2100. Patient was started on heparin drip and admitted for NSTEMI. Transferred to [facility] for cardiology evaluation. Nephrology consulted for management of ESRD. Patient was previously on hemodialysis, initiated on 06/16/2024 due to volume overload, and later switched to peritoneal dialysis per patient preference. He is on CAPD 7 days a week using 2.5% dextrosewith 2L dwell volume, over 120min for total of 4 exchanges. Ultrafiltration 2 L[address] Patient follows with Dr. Miller. On Lasix 80 mg daily and hydralazine 100 BID at home. Outpatient Medications: Medications Prior to Admission: ELIQUIS 5 MG TABS tablet, TAKE ONE TABLET BY MOUTH TWICE A DAY AURYXIA 1 GM 210 MG(Fe) TABS tablet, Take 1 tablet by mouth 2 times daily (with meals) furosemide (LASIX) 80 MG tablet, Take 1 tablet by mouth 2 times daily epoetin santino (EPOGEN;PROCRIT) 72029 UNIT/ML injection, Inject 1 mL into the skin Every Wednesday, Wednesday, and Wednesday HUMALOG 100 UNIT/ML SOLN injection vial, Use via pump max dose 350 units/day pantoprazole (PROTONIX) 40 MG tablet, Take 1 tablet by mouth in the morning and at bedtime atorvastatin (LIPITOR) 80 MG tablet, TAKE 1 TABLET BY MOUTH ONE TIME DAILY DULoxetine (CYMBALTA) 60 MG extended release capsule, TAKE ONE CAPSULE BY MOUTH ONE TIME DAILY sacubitril-valsartan (ENTRESTO) 24-26 MG per tablet, Take 1 tablet by mouth 2 times daily busPIRone (BUSPAR) 15 MG tablet, TAKE ONE TABLET BY MOUTH THREE TIMES A DAY clopidogrel (PLAVIX) 75 MG tablet, Take 1 tablet by mouth daily metoprolol succinate (TOPROL XL) 100 MG extended release tablet, Take 1 tablet by mouth in the morning and at bedtime hydrALAZINE (APRESOLINE) 50 MG tablet, Take 2 tablets by mouth 2 times daily octreotide ACETATE (SANDOSTATIN LAR DEPOT) 30 MG injection, INJECT 30MG INTRAMUSCULARLY ONCE EVERY 28 DAYS triamcinolone (KENALOG) 0.1 % cream, Apply to the affected area 2 times a day. clotrimazole-betamethasone (LOTRISONE) 1-0.05 % cream, Apply topically 2 times daily. vitamin D (ERGOCALCIFEROL) 1.25 MG (04295 UT) CAPS capsule, Take 1 capsule by mouth once a week Insulin Pen Needle 31G X 8 MM MISC, 1 each by Does not apply route 4 times daily Use four times daily with insulin. sennosides-docusate sodium (SENOKOT-S) 8.6-50 MG tablet, Take 2 tablets by mouth 2 times daily as needed for Constipation blood glucose test strips ([employer] NO CODING BLOOD GLUC) strip, 1 each by In Vitro route 3 times daily As needed. Please dispense 3 boxes of 100. meclizine (ANTIVERT) 25 MG tablet, Take 1 tablet by mouth 3 times daily as needed for Dizziness calcitRIOL (ROCALTROL) 0.5 MCG capsule, TAKE 1 CAPSULE BY MOUTH THREE DAYS (TIMES) A WEEK ON WED, WED & WED (Patient not taking: Reported on 02/09/2025) nitroGLYCERIN (NITROSTAT) 0.[address], [address] 1 tablet under the tongue every 5 minutes as needed for Chest pain fluticasone (FLONASE) 50 MCG/ACT nasal spray, 2 sprays by Nasal route daily Jorgey Lancets 28G MISC, 1 box by Does not apply route 3 times daily glucagon 1 MG injection, Mix and inject entire contents of vial into muscle for severe low blood sugar Current Medications: Scheduled Meds: apixaban 5 mg Oral BID sodium chloride flush 5-40 mL IntraVENous 2 times per day ticagrelor 90 mg Oral BID aspirin 81 mg Oral Daily DULoxetine 60 mg Oral Daily insulin glargine 45 Units SubCUTAneous Daily ceFAZolin 1,000 mg IntraVENous Q24H insulin lispro 0-16 Units SubCUTAneous 4x Daily AC & HS hydrALAZINE 25 mg Oral BID sodium bicarbonate 650 mg Oral BID dianeal lo-nader 2.5% 2,500 mL IntraPERitoneal 4x Daily sodium chloride flush 5-40 mL IntraVENous 2 times per day atorvastatin 80 mg Oral Nightly busPIRone 15 mg Oral TID furosemide 80 mg Oral BID metoprolol succinate 100 mg Oral BID pantoprazole 40 mg Oral BID Continuous Infusions: sodium chloride sodium chloride dextrose sodium chloride PRN Meds: sodium chloride flush, sodium chloride, acetaminophen, sodium chloride, hydrOXYzine HCl, glucose, dextrose bolus OR dextrose bolus, glucagon (rDNA), dextrose, sodium chloride flush, sodium chloride, ondansetron OR ondansetron, acetaminophen OR acetaminophen, magnesium hydroxide, nitroGLYCERIN, morphine, meclizine, heparin (porcine), heparin (porcine), gentamicin Input/Output: I/O last 3 completed shifts: In: 88245.4 [P.O.:600; I.V.:1.4; Blood:350; Other:9700] Out: 92859 [Urine:620; Other:05986; Blood:200]. Patient Vitals for the past 96 hrs (Last 3 readings): Weight 02/14/25 0600 (!) 136.7 kg (301 lb 5.9 oz) 02/12/25 1830 (!) 137 kg (302 lb) 02/12/25 0600 (!) 137.2 kg (302 lb 7.5 oz) Vital Signs: Temperature: Temp: 97.7 F (36.5 C) TMax: Temp (24hrs), Av.2 F (36.8 C), Min:97.7 F (36.5 C), Max:98.8 F (37.1 C) Respirations: Respirations: 27 Pulse: Pulse: 77 BP: BP: (!) 113/51 BP Range: Systolic (24hrs), Av , Min:110 , Max:153 Diastolic (24hrs), Av, Min:28, Max:75 Physical Examination: General: AO x3, speaking in full sentences, no accessory muscle use. HEENT: Atraumatic, normocephalic, no throat congestion, moist mucosa. Eyes: PERRLA Neck: Supple Chest: Bilateral breath sounds clear, no crackles or wheezes. Cardiac: S1 S2 RR, no murmurs, gallops or rubs. Abdomen: Soft, non-tender, no masses or organomegaly, BS audible, PD catheter present. : No suprapubic or flank tenderness. Neuro: AAO x 3, No FND. SKIN: No rashes, abrasions, or ecchymoses, good skin turgor. Extremities: No edema. Labs: Recent Labs 02/13/25 0549 02/13/25 1806 02/14/25 0842 WBC 7.5 9.0 -- RBC 3.35* 3.08* -- HGB 9.6* 8.7* 9.9* HCT 32.0* 29.6* 33.5* MCV 95.5 96.1 -- MCH 28.7 28.2 -- MCHC 30.0 29.4 -- RDW 20.1* 19.9* -- PLT 214 222 -- MPV 9.8 10.0 -- BMP: Recent Labs 02/13/25 0549 02/13/25 1806 02/14/25 0330 NA 132* 130* 132* K 4.8 4.8 4.5 CL 96* 94* 94* CO2 18* 20 19* BUN 52* 54* 52* CREATININE 7.0* 7.1* 7.0* GLUCOSE 319* 272* 286* CALCIUM 8.9 8.8 8.9 Magnesium: Recent Labs 02/13/25 1806 MG 2.1 Radiology: Reviewed. Assessment: ESRD secondary to diabetic nephropathy on CAPD 7 days a week using 2.5% dianeal, 2 L dwell volume over 120 minutes for total of 4 exchanges with ultrafiltration of 2 L. Currently on 2.5% dianeal, 2.5L with 3-hour dwell time for total of 4 exchanges. Establish at [facility] and is under the care of Dr. Miller. Has right AV fistula. Dialysis initiated on 06/16/2024 due to volume overload. His dry weight is 137 kg. Admitted with 137.5 kg. NSTEMI -patient is status post high risk PCI yesterday, received shockwave lithotripsy to the ostial/proximal LAD/distal left main/mid left circumflex. Patient also had stents placed to distal LAD, ostial/proximal LAD, left main, and bifurcation of distal left main/ostial LAD. 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 On Eliquis due to clogged filter NABOR on CPAP Anemia of chronic disease, on GENARO and aurxya Secondary hyperparathyroidism, on calcitrol Hypertension Plan: 1. Ok with DC today Patient and are diligent about PD routine at home, weight today is 0.3 kg below dry wt. 2. Continue 80 mg p.o. Lasix twice daily, sodium bicarbonate 650 mg twice daily Nutrition Please ensure that patient is on a renal diet/TF. Avoid nephrotoxic drugs/contrast exposure. Herminia Gonzales APRN-[facility] Attending Physician Statement I have discussed the care of Lorenzo Amato, including pertinent history and exam findings with theNP. I have reviewed the singer elements of all parts of the encounter with the resident/fellow. I haveseen and examined the patient with the NUTRITION AIDE. I agree with the assessment, plan and orders as documented by the NUTRITION AIDE. My medical decision making is as follows: Seen and examined at bedside, can go home and continue his home prescription of PT, he has gotten between 100 to 300 cc of UF since yesterday. Xenia Underwood MD * Guillermo Ortiz MD - 02/14/2025 5:07 AM EDT Images from the original note were not included. [facility] Progress Note Date: 02/14/2025 Patient name: Lorenzo Amato Date of admission: 02/09/2025 5:43 PM Date of : 1970 PCP: Lion Carlson MD Reason for Admission: NSTEMI (non-ST elevated myocardial infarction) (HCC) [I21.4] CAD in [place] artery [I25.10] Subjective: Clinical Changes /Abnormalities: No acute issues overnight, currently on room air, in normal sinus rhythm, hemodynamically stable. Medications: Scheduled Meds: sodium chloride flush 5-40 mL IntraVENous 2 times per day ticagrelor 90 mg Oral BID aspirin 81 mg Oral Daily DULoxetine 60 mg Oral Daily insulin glargine 45 Units SubCUTAneous Daily ceFAZolin 1,000 mg IntraVENous Q24H insulin lispro 0-16 Units SubCUTAneous 4x Daily AC & HS hydrALAZINE 25 mg Oral BID sodium bicarbonate 650 mg Oral BID dianeal lo-nader 2.5% 2,500 mL IntraPERitoneal 4x Daily sodium chloride flush 5-40 mL IntraVENous 2 times per day atorvastatin 80 mg Oral Nightly busPIRone 15 mg Oral TID furosemide 80 mg Oral BID metoprolol succinate 100 mg Oral BID pantoprazole 40 mg Oral BID Continuous Infusions: sodium chloride heparin (PORCINE) Infusion Stopped (02/13/25 1405) sodium chloride dextrose sodium chloride CBC: Recent Labs 02/11/25 0606 02/13/25 0549 02/13/25 1806 WBC 8.0 7.5 9.0 HGB 9.5* 9.6* 8.7* PLT 213 214 222 BMP: Recent Labs 02/12/25 0758 02/13/25 0549 02/13/25 1806 NA 135* 132* 130* K 4.5 4.8 4.8 CL 98 96* 94* CO2 19* 18* 20 BUN 53* 52* 54* CREATININE 7.0* 7.0* 7.1* GLUCOSE 268* 319* 272* Hepatic:No results for input(s): AST , ALT , BILITOT , ALKPHOS in the last 72 hours. Invalid input(s): ALB Troponin: No results for input(s): TROPHS in the last 72 hours. BNP: No results for input(s): BNP in the last 72 hours. Lipids: No results for input(s): CHOL , HDL in the last 72 hours. Invalid input(s): LDLCALCU INR: No results for input(s): INR in the last 72 hours. Objective: Vitals: BP 112/64 Pulse 73 Temp 98.1 F (36.7 C) (Oral) Resp 22 Ht 1.753 m (5' 9 ) Wt (!) 137 kg (302 lb) SpO2 98% BMI 44.60 kg/m General appearance: alert and cooperative with exam HEENT: Head: Normocephalic, no lesions, without obvious abnormality. Neck:no JVD, trachea midline, no adenopathy Lungs: Clear to auscultation Heart: Regular rate and rhythm, s1/s2 auscultated, no murmurs Abdomen: soft, non-tender, bowel sounds active, obese Extremities: no edema Neurologic: not done ECHO 02/12/25: Left Ventricle: Moderately reduced left ventricular systolic function with a visually estimated EF of 35 - 40%. EF by 2D Simpsons Biplane is 36%. Left ventricle size is normal. Increased wall thickness. Findings consistent with mild concentric hypertrophy. Global hypokinesis present. Grade II diastolic dysfunction with increased LAP. Right Ventricle: Right ventricle is mildly dilated. Mitral Valve: Mild annular calcification. Mild stenosis noted. MV mean gradient is 4 mmHg. Left Atrium: Left atrium is mildly dilated. Image quality is adequate. Contrast used: Lumason. ECHO (TTE) COMPLETE (PRN CONTRAST/BUBBLE/STRAIN/3D) 10/23/2024 3:43 PM (Final) Interpretation Summary Left Ventricle: Normal left ventricular systolic function. EF by visual approximation is 56%. Left ventricle size is normal. Moderately increased wall thickness. Findings consistent with moderate concentric hypertrophy. No regional wall motion abnormalities identified. Decreased sensitivity due to poor endocardial definition. Mitral Valve: Mild regurgitation with a centrally directed jet. Tricuspid Valve: Mild regurgitation. Left Atrium: Left atrium is moderately dilated. Pericardium: Trivial localized pericardial effusion present around the left ventricle. No indication of cardiac tamponade. Image quality is technically difficult. Technically difficult study. Technically difficult suboptimal images Normal LV systolic function Moderate concentric left hypertrophy Moderate left atrial enlargement Probable mild tricuspid and mitral regurgitation although suboptimal image [facility] 02/12/25: Conclusion Ultrasound-guided right common femoral arterial 6 [place] access. Severe multivessel coronary artery disease. Severe LV systolic dysfunction, LVEF 15%. Elevated LVEDP of 33 mmHg Recommendations Post cardiac cath protocol is recommended. Patient management should include: Aggressive risk factor modification and aggressive medical management. Patient has severe disease of ostial LAD as well as left main. RCA is occluded. In addition severe cardiomyopathy on LV gram. Obtain a stat echocardiogram with Definity to reevaluate LV function and exclude apical thrombus. Apparently patient does not want to have surgery. I will consult CT surgeryconsult for heart team approach. If LV apical thrombus is excluded, can proceed with high risk PCI of left main LAD and left circumflex bifurcation. Cardiac Cath 09/2019 Indications: - Angina - Unstable - Coronary lesion - more than 50% Conclusions Procedure Summary Successful PCI / Drug Eluting Stent of the mid LAD. Successful PCI / Drug Eluting Stent of the distal LCX. Recommendations Routine Post Stent Orders. Medical therapy as needed. Risk factor modification. CATH 02/13/2025: Diagnostic Dominance: Right Left Main Mid LM to Dist LM lesion, 75% stenosed. To LAD Dist LM to Ost LAD lesion, 75% stenosed. The lesion is type B2, irregular and hazy. The lesion is severely calcified. The lesion was not previously treated. The stenosis was measured by a visual reading. The pre-interventional distal flow is normal (DAVID 3).. Left Anterior Descending Dist LAD lesion, 95% stenosed. The lesion is type C, hazy, tubular and ulcerative. The lesion was not previously treated. The pre-interventional distal flow is decreased (DAVID 2). Left Circumflex Prox Cx lesion, 80% stenosed. The lesion is type C, irregular and hazy. The lesion is severely calcified. The stenosis was measured by a visual reading. The pre-interventional distal flow is normal (DAVID 3).. Mid Cx lesion, 85% stenosed. The lesion is type C, irregular and hazy. The lesion is severely calcified. The stenosis was measured by a visual reading. The pre-interventional distal flow is normal (DAVID 3).. Intervention Mid LM to Dist LM lesion Angioplasty Angioplasty using a standard balloon was performed prior to stent deployment. Supplies used: CATH BLLN ANGIO 3X12MM SC EUPHORA RX Angioplasty Supplies used: CATH BLLN ANGIO 3X12MM SC EUPHORA RX Angioplasty Angioplasty using a standard balloon was performed prior to stent deployment. Supplies used: CATH BLLN ANGIO 3X12MM SC EUPHORA RX Angioplasty Supplies used: CATH BLLN ANGIO 3X12MM SC EUPHORA RX Intravascular Lithotripsy (Also treats lesions: Dist LM to Ost LAD) IVL total # inflations: 7. 1. 6atm for 15secs 2.6atm for 15secs 3. 6atm for 15secs 4.6atm for 15secs 5. 6atm for 15secs 6.6atm for 15secs 7. 6atm for 15secs No 6 and 7 inflation for left main Supplies used: CATHETER IVL C2PLUS SHOCKWAVE 3.5MM X 12MM Stent A single stent was placed. Drug-eluting stent was successfully placed. Supplies used: STENT CORONARY RL FRONTIER RX 4X18 MM ZOTAROLIMUS ELUTE Stent Stent was successfully placed. Supplies used: STENT CORONARY RL FRONTIER RX 4X18 MM ZOTAROLIMUS ELUTE Angioplasty (Also treats lesions: Dist LM to Ost LAD) Angioplasty using a standard balloon was performed following stent deployment. Lesion complication(s): no complications. Supplies used: CATH BLLN ANGIO 4X15MM SC EUPHORA RX Angioplasty (Also treats lesions: Dist LM to Ost LAD) Angioplasty using a standard balloon was performed prior to stent deployment. Lesion complication(s): no complications. Kissing with the 4mm x 15 Supplies used: CATH BLLN ANGIO 3X12MM SC EUPHORA RX Angioplasty Supplies used: CATH BLLN ANGIO 3X12MM SC EUPHORA RX Angioplasty Angioplasty using a standard balloon was performed prior to stent deployment. Supplies used: CATH BLLN ANGIO 4.50X8MM NC EUPHORIA RX Angioplasty Supplies used: CATH BLLN ANGIO 4.50X8MM NC EUPHORIA RX Post-Intervention Lesion Assessment The intervention was successful. The guidewire crossed the lesion. Device was not deployed. The pre-interventional distal flow is normal (DAVID 3). Post- intervention DAVID flow is 3. Lesion had 18 mm of its length treated. There were no complications. There is a 0% residual stenosis post intervention. Dist LM to Ost LAD lesion Intravascular Lithotripsy (Also treats lesions: Mid LM to Dist LM) See details in Mid LM to Dist LM lesion. Supplies used: CATHETER IVL C2PLUS SHOCKWAVE 3.5MM X 12MM Angioplasty (Also treats lesions: Mid LM to Dist LM) See details in Mid LM to Dist LM lesion. Supplies used: CATH BLLN ANGIO 4X15MM SC EUPHORA RX Angioplasty (Also treats lesions: Mid LM to Dist LM) See details in Mid LM to Dist LM lesion. Supplies used: CATH BLLN ANGIO 3X12MM SC EUPHORA RX Post-Intervention Lesion Assessment The intervention was successful. The guidewire crossed the lesion. Device was deployed. The pre-interventional distal flow is normal (DAVID 3). Post- intervention DAVID flow is 3. Lesion had 18 mm of its length treated. There were no complications. There is a 0% residual stenosis post intervention. Dist LAD lesion Angioplasty Angioplasty using a standard balloon was performed prior to stent deployment. Lesion complication(s): no complications. Supplies used: CATH BLLN ANGIO 2X30MM SC EUPHORA RX Angioplasty Angioplasty using a standard balloon was performed prior to stent deployment. Lesion complication(s): no complications. Supplies used: CATH BLLN ANGIO 2X30MM SC EUPHORA RX Stent A single stent was placed. Drug-eluting stent was successfully placed. The strut is well apposed. Supplies used: STENT CORONARY RL FRONTIER RX 2X30 MM ZOTAROLIMUS ELUT Stent A single stent was placed. Drug-eluting stent was successfully placed. The strut is well apposed. Supplies used: STENT CORONARY RL FRONTIER RX 2.5X26 MM ZOTAROLIMUS ELUT Post-Intervention Lesion Assessment The intervention was successful. The guidewire crossed the lesion. Device was deployed. The pre-interventional distal flow is decreased (DAVID 2). Post- intervention DAVID flow is 3. Lesion had 56 mm ofits length treated. There is a 0% residual stenosis post intervention. Prox Cx lesion Stent A single stent was placed. Drug-eluting stent was successfully placed. The strut is well apposed. Supplies used: STENT CORONARY RL FRONTIER RX 4X22 MM ZOTAROLIMUS ELUT Post-Intervention Lesion Assessment The intervention was successful. The guidewire crossed the lesion. Device was deployed. The pre-interventional distal flow is normal (DAVID 3). Post- intervention DAVID flow is 3. Lesion had 22 mm of its length treated. There were no complications. There is a 0% residual stenosis post intervention. Mid Cx lesion Intravascular Lithotripsy Intravascular lithotripsy performed using: CATHETER IVL C2PLUS SHOCKWAVE 3.5MM X 12MM. 1. 6ATM FOR 15 SECS 2. 6ATM FOR 15 SEC 3. 6ATM FOR 15 SECS 4. 6ATM FOR 15 SECS 5. 6ATM FOR 15SECS 6. 6ATM FOR 15SECS 7. 6ATM FOR 15 SECS 8. 6ATM FOR 15SECS 9. 6ATM FOR 15SECS 10 6ATM FOR 15 SECS 11. 6ATM FOR 15SECS Supplies used: CATHETER IVL C2PLUS SHOCKWAVE 3.5MM X 12MM Angioplasty Angioplasty using a standard balloon was performed prior to stent deployment. Lesion complication(s): no complications. Supplies used: CATH BLLN ANGIO 3.72G77OR SC EUPHORA RX Angioplasty Angioplasty using a standard balloon was performed prior to stent deployment. Lesion complication(s): no complications. Supplies used: CATH BLLN ANGIO 3.56K47HP SC EUPHORA RX Angioplasty Angioplasty using a standard balloon was performed prior to stent deployment. Lesion complication(s): no complications. Supplies used: CATH BLLN ANGIO 3.79T63IA SC EUPHORA RX Angioplasty Angioplasty using a standard balloon was performed prior to stent deployment. Lesion complication(s): no complications. Supplies used: CATH BLLN ANGIO 3.34I11NY SC EUPHORA RX Stent A single stent was placed. Drug-eluting stent was successfully placed. The strut is well apposed. Supplies used: STENT CORONARY RL FRONTIER RX 3.5X30 MM ZOTAROLIMUS ELUT Post-Intervention Lesion Assessment The intervention was successful. The guidewire crossed the lesion. Device was deployed. The pre-interventional distal flow is normal (DAVID 3). Post- intervention DAVID flow is 3. Lesion had 30 mm of its length treated. There were no complications. There is a 0% residual stenosis post intervention. Assessment / Acute Cardiac Problems: Multivessel coronary disease s/p shockwave lithotripsy of ostial/proximal LAD/distal left main/mid left circumflex as well as left proximal left circumflex s/p PTCA/TIFFANIE of distal LAD, ostial/proximalLAD, left main with a stent extending into the proximal LAD, ventricular stenting for bifurcation of distal left main/ostial LAD/ostial left circumflex. NSTEMI CAD with previous history of stenting to LAD/LCx in 2019 and again last year at OSH for which records are not available ESRD on peritoneal dialysis Type 2 diabetes mellitus Hypertension Plan of Treatment: Continue aspirin,Toprol-XL, hydralazine and Lipitor. Patient is reporting shortness of breath with Brilinta, therefore, will change it to Effient 10 mg daily. Volume management per nephrology/HD appreciate assistance. On IV Lasix 80 mg twice daily Echo reviewed, EF 35 to 40%. Patient cannot be on GDMT due to ESRD Will continue to monitor. Kuldeep Tripp MD. Cardiovascular Fellow, [facility], [place], [place]. Attending Physician Statement I have discussed the case of Lorenzo Amato including pertinent history and exam findings with the student/resident/fellow. I have seen and examined the patient and the singer elements of the encounter have been performed by me. I agree with the assessment, plan and orders as documented by the resident With changes made to the note. . Quincy Loom Doffer [phone] * Allyson Cazares - 02/13/2025 9:42 PM EDT Spiritual Health History and Assessment/Progress Note [facility] (P) Post-Procedural, Name: Lorenzo Amato Age: 54 y.o. Sex: male Language: [place] Citizen Restorationism: Restoration NSTEMI (non-ST elevated myocardial infarction) (HCC) Date: 02/14/2025 Total Time Calculated: (P) 17 min Spiritual Assessment continued in [facility] CAR 1- SICU Referral/Consult From: (P) Family, Other elementary school librarian Encounter Overview/Reason: (P) Post-Procedural Service Provided For: (P) Patient Narrative: Senior Ux Designer made follow-up visit to patient, per other elementary school librarian referral. Patient was sitting up in hospital bed, when elementary school librarian visited. Per patient, he underwent a heart cath today and had stents placed. Patient confirmed that his spouse just left the unit to rest at [facility]. Patient thanked elementary school librarian for visit. Chaplains can make follow-up visit, per request. Chaplains can be reached 07/06 via [employer]. Ivana, Belief, Meaning: Patient has beliefs or practices that help with coping during difficult times Family/Friends No family/friends present Importance and Influence: Patient has spiritual/personal beliefs that influence decisions regarding their health Family/Friends No family/friends present Community: Patient feels well-supported. Support system includes: Spouse/Partner and Extended family Family/Friends No family/friends present Assessment and Plan of Care: Patient Interventions include: Facilitated expression of thoughts and feelings and Affirmed coping skills/support systems Family/Friends Interventions include: No family/friends present Patient Plan of Care: Spiritual Care available upon further referral Family/Friends Plan of Care: Spiritual Care available upon further referral * Ilya Perez MD - 02/13/2025 8:47 PM EDT [facility] IN-PATIENT SERVICE [facility] Progress Note 02/13/2025 8:47 PM Name: Lorenzo Amato Acct: [id number] Room: [address] [place] [address] IP Day: 4 Admit Date: 02/09/2025 5:43 PM PCP: Lion Carlson MD Code Status: Full Code Subjective: Interval History Status: not changed. Pt seen and examined this morning, multiple family members bedside. He seems anxious and apprehensive for his upcoming cardiac procedure. Vitals wnl, labs reviewed. S/P CTS evaluation, cardiology on board, plan for high risk PCI today. Pt is NPO since midnight. As per , CODE STATUS is FULL CODE for the procedure , however following that he would prefer concepcion DNR CCA. Brief History: Patient with history of coronary artery disease status post PTCA and multiple stents placements in the past who presented to outlying facility with chest pain yesterday that was relieved by nitro. Troponin was elevated and his diagnosis was consistent with NSTEMI she was transferred to [facility] for cardiology evaluation and management. Patient is also end-stage renal disease on peritoneal dialysis. He was started on medical treatment including heparin drip. Medications: Allergies: Allergies Allergen Reactions Ketorolac Tromethamine Other (See Comments) Pt went into kidney failure Lisinopril Other (See Comments) and Cough Cough Current Meds: Scheduled Meds: sodium chloride flush 5-40 mL IntraVENous 2 times per day ticagrelor 90 mg Oral BID [START ON 02/14/2025] aspirin 81 mg Oral Daily dianeal lo-nader 2.5% 2,500 mL IntraPERitoneal Once DULoxetine 60 mg Oral Daily [Held by provider] insulin glargine 45 Units SubCUTAneous Daily ceFAZolin 1,000 mg IntraVENous Q24H insulin lispro 0-16 Units SubCUTAneous 4x Daily AC & HS hydrALAZINE 25 mg Oral BID sodium bicarbonate 650 mg Oral BID dianeal lo-nader 2.5% 2,500 mL IntraPERitoneal 4x Daily sodium chloride flush 5-40 mL IntraVENous 2 times per day atorvastatin 80 mg Oral Nightly busPIRone 15 mg Oral TID furosemide 80 mg Oral BID metoprolol succinate 100 mg Oral BID pantoprazole 40 mg Oral BID Continuous Infusions: sodium chloride heparin (PORCINE) Infusion Stopped (02/13/25 1405) sodium chloride dextrose sodium chloride PRN Meds: sodium chloride flush, sodium chloride, acetaminophen, sodium chloride, hydrOXYzine HCl, glucose, dextrose bolus OR dextrose bolus, glucagon (rDNA), dextrose, sodium chloride flush, sodium chloride, ondansetron OR ondansetron, acetaminophen OR acetaminophen, magnesium hydroxide, nitroGLYCERIN, morphine, meclizine, heparin (porcine), heparin (porcine), gentamicin Data: Past Medical History: has a past medical history of Anemia, Arthritis, CAD (coronary artery disease), Chronic kidney disease, CKD (chronic kidney disease), 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 dialysis, Depression, Disease of blood and blood forming organ, DVT (deep venous thrombosis) (HCC), GERD (gastroesophageal reflux disease), GERD (gastroesophageal reflux disease), GI bleed, [place] filter in place, History of blood transfusion, Hypercholesteremia, Hypertension, Liver metastases, CO (myocardial infarction) (HCC), MS (multiple sclerosis) (HCC), Neuroendocrine tumor (HCC), Other disorders of kidneyand ureter in diseases classified elsewhere, PE (pulmonary embolism), Type II or unspecified type di abetes mellitus without mention of complication, not stated as uncontrolled, Unspecified sleep apnea, and Vitamin D deficiency. Social History: reports that he has never smoked. He has never been exposed to tobacco smoke. He has quit using smokeless tobacco. His smokeless tobacco use included chew. He reports that he does notdrink alcohol and does not use drugs. Family History: Family History Problem Relation Age of Onset Cancer Mother ovarian Heart Disease Father Arthritis Brother Vitals: BP (!) 140/73 Pulse 85 Temp 97.8 F (36.6 C) (Oral) Resp 18 Ht 1.753 m (5' 9 ) Wt (!) 137 kg (302 lb) SpO2 97% BMI 44.60 kg/m Temp (24hrs), Av.1 F (36.7 C), Min:97.8 F (36.6 C), Max:98.8 F (37.1 C) Recent Labs 02/13/25 0741 02/13/25 1145 02/13/25173402/13/251946 POCGLU 286* 259* 211* 344* I/O (24Hr): Intake/Output Summary (Last 24 hours) at 02/13/20252046 Last data filed at 02/13/2025 1850 Gross per 24 hour Intake 2201.38 ml Output 2600 ml Net -398.62 ml Labs: Hematology: Recent Labs 02/11/25 0606 02/13/25 0549 02/13/25 1806 WBC 8.0 7.5 9.0 RBC 3.36* 3.35* 3.08* HGB 9.5* 9.6* 8.7* HCT 31.0* 32.0* 29.6* MCV 92.3 95.5 96.1 MCH 28.3 28.7 28.2 MCHC 30.6 30.0 29.4 RDW 19.9* 20.1* 19.9* PLT 213 214 222 MPV 9.9 9.8 10.0 Chemistry: Recent Labs 02/11/25 0606 02/12/25 0758 02/13/25 0549 02/13/25 1806 NA 131* 135* 132* 130* K 4.5 4.5 4.8 4.8 CL 96* 98 96* 94* CO2 15* 19* 18* 20 GLUCOSE 326* 268* 319* 272* BUN 53* 53* 52* 54* CREATININE 6.8* 7.0* 7.0* 7.1* MG -- -- -- 2.1 ANIONGAP 20* 18* 18* 16 LABGLOM 9* 9* 9* 8* CALCIUM 8.9 9.1 8.9 8.8 CAION -- -- -- 1.08* PHOS 5.8* -- -- -- Recent Labs 02/11/25 0606 02/11/25 0840 02/12/25201402/13/25 0053 02/13/25 0741 02/13/25 1145 02/13/25173402/13/251946 LABA1C 9.1* -- -- -- -- -- -- -- POCGLU -- < > 403* 296* 286* 259* 211* 344* < > = values in this interval not displayed. ABG: Lab Results Component Value Date/Time FIO2 TRAUMA 09/04/2019 03:10 AM Lab Results Component Value Date/Time SPECIAL NOT REPORTED 10/27/2018 01:44 PM Lab Results Component Value Date/Time CULTURE (A) 06/20/2023 08:15 PM STAPHYLOCOCCUS AUREUS HEAVY GROWTH This isolate is methicillin susceptible. Radiology: No results found. Physical Examination: General appearance: alert, cooperative and no distress Lungs: clear to auscultation bilaterally, normal effort Heart: regular rate and rhythm, no murmur Abdomen: soft, nontender, nondistended, normal bowel sounds Extremities: no edema, redness, tenderness in the calves Skin: no gross lesions or rashes Assessment: Hospital Problems Last Modified POA * (Principal) NSTEMI (non-ST elevated myocardial infarction) ([facility]) 02/09/2025 Yes CAD in [place] artery 02/13/2025 Yes NABOR (obstructive sleep apnea) 02/09/2025 Yes Overview Signed 01/10/2013 1:38 PM by Yessenia Kim CPAP Mixed hyperlipidemia 02/09/2025 Yes Benign essential HTN 02/09/2025 Yes GERD (gastroesophageal reflux disease) 02/09/2025 Yes nursing home current use of anticoagulant therapy 02/09/2025 Yes Carcinoid tumor of stomach (HCC) 02/09/2025 Yes Liver metastases 02/09/2025 Yes Overview Signed 08/17/2023 9:46 AM by Ambulatory, Admin Replacing diagnoses that were inactivated after the 08/15/2023 regulatory import Morbid obesity due to excess calories 02/09/2025 Yes History of pulmonary embolus (PE) 02/09/2025 Yes Controlled type 2 diabetes mellitus without complication, with long-term current use of insulin 02/09/2025 Yes Type 2 diabetes mellitus with hyperglycemia 02/09/2025 Yes End stage renal disease (HCC) 02/09/2025 Yes 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 dialysis 02/09/2025 Yes Plan: NSTEMI, most likely type I. Continue heparin drip and medical treatment. Patient is on Plavix statin and beta-ector already. Currently is chest pain-free. Cardiac cath 02/12/2025 showed Patient hassevere disease of ostial LAD as well as left main. RCA is occluded. In addition severe cardiomyopathy on LV gram. Obtain a stat echocardiogram with Definity to reevaluate LV function and exclude apical thrombus. Apparently patient does not want to have surgery. consult CT surgery consult for heart team approach. If LV apical thrombus is excluded, can proceed with high risk PCI of left main LAD and left circumflex bifurcation. S/p CTS evaluation, Plan to proceed with high risk PCI. End-stage renal disease on peritoneal dialysis: Nephrology has been consulted to resume peritoneal dialysis while in the hospital. Labs reviewed Type 2 diabetes: Lantus and high intensity sliding scale and adjust as needed. 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 Dyslipidemia: Continue statin Discharge planning: currently not stable for discharge, will revaluate after PCI. Ilya Perez MD 02/13/2025 8:47 PM * Lili Amaro RN - 02/13/2025 5:45 PM EDT Education And Development Manager gave report to ALEJANDRO Mejía with SICU. * Augusta Hutchinson RN - 02/13/2025 1:00 PM EDT Patient admitted, consent signed and questions answered. Patient ready for procedure. Call light toreach with side rails up 2 of 2. Right groin hair clipped with video game script writer and Cristina present. Family at bedside with patient. * Radha Hernandez APRN - MARIA EUGENIA - 02/13/2025 12:01 PM EDT Images from the original note were not included. Ladonna Loom Doffer Progress Note Date: 02/13/2025 Patient name: Lorenzo Amato Date of admission: 02/09/2025 5:43 PM Date of : 1970 PCP: Lion Carlson MD Reason for Admission: NSTEMI (non-ST elevated myocardial infarction) (HCC) [I21.4] Subjective: Clinical Changes /Abnormalities: Pt seen and examined in the room. Patient resting on side of bed with family at bedside. Pt denies any CP or sob. Labs, vitals and tele reviewed- SR 77 PD in process. Heparin drip infusing. Medications: Scheduled Meds: [Held by provider] insulin glargine 45 Units SubCUTAneous Daily ceFAZolin 1,000 mg IntraVENous Q24H insulin lispro 0-16 Units SubCUTAneous 4x Daily AC & HS hydrALAZINE 25 mg Oral BID sodium bicarbonate 650 mg Oral BID dianeal lo-nader 2.5% 2,500 mL IntraPERitoneal 4x Daily sodium chloride flush 5-40 mL IntraVENous 2 times per day atorvastatin 80 mg Oral Nightly busPIRone 15 mg Oral TID [Held by provider] clopidogrel 75 mg Oral Daily furosemide 80 mg Oral BID metoprolol succinate 100 mg Oral BID pantoprazole 40 mg Oral BID Continuous Infusions: heparin (PORCINE) Infusion 18 Units/kg/hr (02/13/25 0804) dextrose sodium chloride CBC: Recent Labs 02/11/25 0606 02/13/25 0549 WBC 8.0 7.5 HGB 9.5* 9.6* PLT 213 214 BMP: Recent Labs 02/11/25 0606 02/12/25 0758 02/13/25 0549 NA 131* 135* 132* K 4.5 4.5 4.8 CL 96* 98 96* CO2 15* 19* 18* BUN 53* 53* 52* CREATININE 6.8* 7.0* 7.0* GLUCOSE 326* 268* 319* Hepatic:No results for input(s): AST , ALT , BILITOT , ALKPHOS in the last 72 hours. Invalid input(s): ALB Troponin: No results for input(s): TROPHS in the last 72 hours. BNP: No results for input(s): BNP in the last 72 hours. Lipids: No results for input(s): CHOL , HDL in the last 72 hours. Invalid input(s): LDLCALCU INR: No results for input(s): INR in the last 72 hours. Objective: Vitals: BP 130/65 Pulse 76 Temp 97.9 F (36.6 C) Resp 19 Ht 1.753 m (5' 9 ) Wt (!) 137 kg (302 lb) SpO2 91% BMI 44.60 kg/m General appearance: alert and cooperative with exam HEENT: Head: Normocephalic, no lesions, without obvious abnormality. Neck:no JVD, trachea midline, no adenopathy Lungs: Clear to auscultation Heart: Regular rate and rhythm, s1/s2 auscultated, no murmurs Abdomen: soft, non-tender, bowel sounds active, obese Extremities: no edema Neurologic: not done ECHO 02/12/25: Left Ventricle: Moderately reduced left ventricular systolic function with a visually estimated EF of 35 - 40%. EF by 2D Simpsons Biplane is 36%. Left ventricle size is normal. Increased wall thickness. Findings consistent with mild concentric hypertrophy. Global hypokinesis present. Grade II diastolic dysfunction with increased LAP. Right Ventricle: Right ventricle is mildly dilated. Mitral Valve: Mild annular calcification. Mild stenosis noted. MV mean gradient is 4 mmHg. Left Atrium: Left atrium is mildly dilated. Image quality is adequate. Contrast used: Lumason. ECHO (TTE) COMPLETE (PRN CONTRAST/BUBBLE/STRAIN/3D) 10/23/2024 3:43 PM (Final) Interpretation Summary Left Ventricle: Normal left ventricular systolic function. EF by visual approximation is 56%. Left ventricle size is normal. Moderately increased wall thickness. Findings consistent with moderate concentric hypertrophy. No regional wall motion abnormalities identified. Decreased sensitivity due to poor endocardial definition. Mitral Valve: Mild regurgitation with a centrally directed jet. Tricuspid Valve: Mild regurgitation. Left Atrium: Left atrium is moderately dilated. Pericardium: Trivial localized pericardial effusion present around the left ventricle. No indication of cardiac tamponade. Image quality is technically difficult. Technically difficult study. Technically difficult suboptimal images Normal LV systolic function Moderate concentric left hypertrophy Moderate left atrial enlargement Probable mild tricuspid and mitral regurgitation although suboptimal image [facility] 02/12/25: Conclusion Ultrasound-guided right common femoral arterial 6 [place] access. Severe multivessel coronary artery disease. Severe LV systolic dysfunction, LVEF 15%. Elevated LVEDP of 33 mmHg Recommendations Post cardiac cath protocol is recommended. Patient management should include: Aggressive risk factor modification and aggressive medical management. Patient has severe disease of ostial LAD as well as left main. RCA is occluded. In addition severe cardiomyopathy on LV gram. Obtain a stat echocardiogram with Definity to reevaluate LV function and exclude apical thrombus. Apparently patient does not want to have surgery. I will consult CT surgeryconsult for heart team approach. If LV apical thrombus is excluded, can proceed with high risk PCI of left main LAD and left circumflex bifurcation. Cardiac Cath 09/2019 Indications: - Angina - Unstable - Coronary lesion - more than 50% Conclusions Procedure Summary Successful PCI / Drug Eluting Stent of the mid LAD. Successful PCI / Drug Eluting Stent of the distal LCX. Recommendations Routine Post Stent Orders. Medical therapy as needed. Risk factor modification. 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 Carcinoid tumor of stomach (HCC) Liver metastases Generalized anxiety disorder Morbid obesity due to excess calories CKD (chronic kidney disease) stage 3, GFR 30-59 ml/min (HCC) Acquired buried penis Right sided numbness History of pulmonary embolus (PE) Controlled type 2 diabetes mellitus without complication, with long-term current use of insulin (HCC) CKD (chronic kidney disease) stage 4, GFR 15-29 ml/min (HCC) Chronic renal disease, stage III (HCC) [986471] Type 2 diabetes mellitus with hyperglycemia Type 2 diabetes mellitus with chronic kidney disease Thrombocytopenia, unspecified End stage renal disease (HCC) NSTEMI (non-ST elevated myocardial infarction) (HCC) 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 dialysis Plan of Treatment: Stable and denies any CP at present. Continue PO Plavix, statin, Tropol & Heparin gtt Volume management per nephrology/HD appreciate assistance ECHO reviewed with patient. Will plan for PCI later today Keep NPO Will continue to monitor. [employer] [phone] * Allyson Cazares - 02/12/2025 8:51 PM EDT Spiritual Health History and Assessment/Progress Note [facility] Spiritual/Emotional Needs, Pre-Op, Name: Lorenzo Amato Age: 54 y.o. Sex: male Language: [place] Citizen Restorationism: Restoration NSTEMI (non-ST elevated myocardial infarction) (HCC) Date: 02/13/2025 Total Time Calculated: (P) 27 min Spiritual Assessment began in [facility] 5C STEPDOWN Referral/Consult From: (P) Nurse, Patient Encounter Overview/Reason: Spiritual/Emotional Needs, Pre-Op Service Provided For: (P) Patient and family together Narrative: Senior Ux Designer visited with patient per nurse referral, indicating that patient expressed desire for elementary school librarian visit. Senior Ux Designer introduced herself to patient and to his spouse, who was present in room. Per patient and family, he is hospitalized often at [place] and has become close with the elementary school librarian there. Patient and spouse shared about the difficult year they have had, including the oftheir son, taking his three children into their care and patient's health issues. Patient is expected to undergo a heart cath and possibly open heart surgery during this hospitalization. Patient and spouse were tearful and expressed gratitude for elementary school librarian's visit. Senior Ux Designer provided support and offered prayer in room. Ivana, Belief, Meaning: Patient has beliefs or practices that help with coping during difficult times Family/Friends have beliefs or practices that help with coping during difficult times Importance and Influence: Patient has spiritual/personal beliefs that influence decisions regarding their health Family/Friends have spiritual/personal beliefs that influence decisions regarding the patient's health Community: Patient feels well-supported. Support system includes: Spouse/Partner and Extended family Family/Friends feel well-supported. Support system includes: Extended family Assessment and Plan of Care: Patient Interventions include: Facilitated expression of thoughts and feelings, Explored spiritual coping/struggle/distress, Engaged in theological reflection, and Affirmed coping skills/support systems Family/Friends Interventions include: Facilitated expression of thoughts and feelings, Explored spiritual coping/struggle/distress, Engaged in theological reflection, and Affirmed coping skills/support systems Patient Plan of Care: Spiritual Care available upon further referral Family/Friends Plan of Care: Spiritual Care available upon further referral * Jennifer Duffy RN - 02/12/2025 4:55 PM EDT Echo at bedside, pt to remain dwelling until PD extension set is replaced. * Jennifer Duffy RN - 02/12/2025 4:23 PM EDT CTS NUTRITION AIDE at bedside. Perfect served Dr. Donald about PD cath issue, he will address. * Jennifer Duffy RN - 02/12/2025 3:07 PM EDT Pt returned from laboratory engineer, laying flat, site C/D/I rt femoral site. Family at bedside. Stat echo with TTE ordered, since he has to lay flat, I asked Elizabeth from echo to come to bedside , because he's supposed to lay for 2 hours. Will let cardiology know. * Tania Aguilar MD - 02/12/2025 2:58 PM EDT [facility] IN-PATIENT SERVICE [facility] Progress Note 02/12/2025 2:59 PM Name: Lorenzo Amato Acct: [id number] Room: 0547/0547-01 IP Day: 3 Admit Date: 02/09/2025 5:43 PM PCP: Lion Carlson MD Code Status: Full Code Subjective: Interval History Status: not changed. Denies chest pain or shortness of breath. Has been afebrile. Patient with history of coronary artery disease status post PTCA and multiple stents placements in the past who [facility] that was relieved by nitro. Troponin was elevated and his diagnosis was consistent with NSTEMI she was transferred to [facility] for cardiology evaluation and management. Patient is also end-stage renal disease on peritoneal dialysis. He was started on medical treatment including heparin drip. Medications: Allergies: Allergies Allergen Reactions Ketorolac Tromethamine Other (See Comments) Pt went into kidney failure Lisinopril Other (See Comments) and Cough Cough Current Meds: Scheduled Meds: [Held by provider] insulin glargine 45 Units SubCUTAneous Daily insulin lispro 0-16 Units SubCUTAneous 4x Daily AC & HS hydrALAZINE 25 mg Oral BID sodium bicarbonate 650 mg Oral BID dianeal lo-nader 2.5% 2,500 mL IntraPERitoneal 4x Daily sodium chloride flush 5-40 mL IntraVENous 2 times per day atorvastatin 80 mg Oral Nightly busPIRone 15 mg Oral TID clopidogrel 75 mg Oral Daily furosemide 80 mg Oral BID metoprolol succinate 100 mg Oral BID pantoprazole 40 mg Oral BID Continuous Infusions: dextrose sodium chloride heparin (PORCINE) Infusion 17 Units/kg/hr (02/12/25 0555) PRN Meds: glucose, dextrose bolus OR dextrose bolus, glucagon (rDNA), dextrose, sodium chlorideflush, sodium chloride, ondansetron OR ondansetron, acetaminophen OR acetaminophen, magnesium hydroxide, nitroGLYCERIN, sulfur hexafluoride microspheres, morphine, meclizine, heparin (porcine), heparin (porcine), gentamicin Data: Past Medical History: has a past medical history of Anemia, Arthritis, CAD (coronary artery disease), Chronic kidney disease, CKD (chronic kidney disease), 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 dialysis, Depression, Disease of blood and blood forming organ, DVT (deep venous thrombosis) (HCC), GERD (gastroesophageal reflux disease), GERD (gastroesophageal reflux disease), GI bleed, Lori filter in place, History of blood transfusion, Hypercholesteremia, Hypertension, Liver metastases, CO (myocardial infarction) (HCC), MS (multiple sclerosis) (HCC), Neuroendocrine tumor (HCC), Other disorders of kidneyand ureter in diseases classified elsewhere, PE (pulmonary embolism), Type II or unspecified type di abetes mellitus without mention of complication, not stated as uncontrolled, Unspecified sleep apnea, and Vitamin D deficiency. Social History: reports that he has never smoked. He has never been exposed to tobacco smoke. He has quit using smokeless tobacco. His smokeless tobacco use included chew. He reports that he does notdrink alcohol and does not use drugs. Family History: Family History Problem Relation Age of Onset Cancer Mother ovarian Heart Disease Father Arthritis Brother Vitals: BP (!) 142/76 Pulse 79 Temp 98.1 F (36.7 C) Resp 20 Ht 1.753 m (5' 9 ) Wt (!) 137.2 kg (302 lb 7.5 oz) Comment: empty SpO2 100% BMI 44.67 kg/m Temp (24hrs), Av.2 F (36.8 C), Min:98.1 F (36.7 C), Max:98.4 F (36.9 C) Recent Labs 02/11/25 1631 02/11/25200902/12/25 0744 02/12/25 1157 POCGLU 310* 303* 269* 216* I/O (24Hr): Intake/Output Summary (Last 24 hours) at 02/12/2025 1459 Last data filed at 02/12/2025 1406 Gross per 24 hour Intake 3636.26 ml Output 7860 ml Net -4223.74 ml Labs: Hematology: Recent Labs 02/09/25195702/10/2544002/11/25 0606 WBC 9.0 8.3 8.0 RBC 3.59* 3.46* 3.36* HGB 10.2* 9.8* 9.5* HCT 33.0* 31.9* 31.0* MCV 91.9 92.2 92.3 MCH 28.4 28.3 28.3 MCHC 30.9 30.7 30.6 RDW 20.2* 20.0* 19.9* PLT 236 212 213 MPV 9.7 9.6 9.9 INR 1.3 -- -- Chemistry: Recent Labs 02/09/25175702/09/25195702/10/2544002/11/25 0606 02/12/25 0758 NA -- -- 134* 131* 135* K -- -- 4.3 4.5 4.5 CL -- -- 98 96* 98 CO2 -- -- 19* 15* 19* GLUCOSE -- -- 258* 326* 268* BUN -- -- 56* 53* 53* CREATININE 6.3* -- 6.3* 6.8* 7.0* MG -- -- 2.5 -- -- ANIONGAP -- -- 17* 20* 18* LABGLOM 10* -- 10* 9* 9* CALCIUM -- -- 9.0 8.9 9.1 PHOS -- -- -- 5.8* -- TROPHS 1,968* 2,122* -- -- -- Recent Labs 02/10/25 0441 02/10/25 0820 02/11/25 0606 02/11/25 0840 02/11/25 1036 02/11/25 1231 02/11/25 1631 02/11/25200902/12/25 0744 02/12/25 1157 LABA1C -- -- 9.1* -- -- -- -- -- -- -- CHOL 96 -- -- -- -- -- -- -- -- -- HDL 35* -- -- -- -- -- -- -- -- -- CHOLHDLRATIO 2.7 -- -- -- -- -- -- -- -- -- TRIG 80 -- -- -- -- -- -- -- -- -- VLDL 16 -- -- -- -- -- -- -- -- -- POCGLU -- < > -- < > 305* 318* 310* 303* 269* 216* < > = values in this interval not displayed. ABG: Lab Results Component Value Date/Time FIO2 TRAUMA 09/04/2019 03:10 AM Lab Results Component Value Date/Time SPECIAL NOT REPORTED 10/27/2018 01:44 PM Lab Results Component Value Date/Time CULTURE (A) 06/20/2023 08:15 PM STAPHYLOCOCCUS AUREUS HEAVY GROWTH This isolate is methicillin susceptible. Radiology: No results found. Physical Examination: General appearance: alert, cooperative and no distress Lungs: clear to auscultation bilaterally, normal effort Heart: regular rate and rhythm, no murmur Abdomen: soft, nontender, nondistended, normal bowel sounds Extremities: no edema, redness, tenderness in the calves Skin: no gross lesions or rashes Assessment: Hospital Problems Last Modified POA * (Principal) NSTEMI (non-ST elevated myocardial infarction) (HCC) 02/09/2025 Yes NABOR (obstructive sleep apnea) 02/09/2025 Yes Overview Signed 01/10/2013 1:38 PM by Yessenia Kim CPAP Mixed hyperlipidemia 02/09/2025 Yes Benign essential HTN 02/09/2025 Yes GERD (gastroesophageal reflux disease) 02/09/2025 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 02/09/2025 Yes 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 Continue heparin drip and medical treatment. Patient is on Plavix statin and beta-ector already. Currently is chest pain-free. Cardiac cath was done today on 02/12/2025 showed Patient has severe disease of ostial LAD as well as left main. RCA is occluded. In addition severe cardiomyopathy on LV gram. Obtain a stat echocardiogram with Definity to reevaluate LV function and exclude apical thrombus. Apparently patient does not want to have surgery. consult CT surgery consult for heart team approach. If LV apical thrombus is excluded, can proceed with high risk PCI of left main LAD and left circumflex bifurcation. end-stage renal disease on peritoneal dialysis: Nephrology has been consulted to resume peritoneal dialysis while in the hospital. Labs reviewed Type 2 diabetes: He is on insulin pump which I have resumed. Patient has run out of his insulin pump insulin supplies, I am going to switch him to Lantus 30 units/day and high intensity sliding scaleand adjust as needed. If patient cannot get his insulin pump supplies from home today, we are goingto increase his Lantus to 45 units and continue insulin sliding scale. 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 [employer] Progress Note Date: 02/12/2025 Patient name: Lorenzo Amato Date of admission: 02/09/2025 5:43 PM Date of : 1970 PCP: Lion Carlson MD Reason for Admission: NSTEMI (non-ST elevated myocardial infarction) (HCC) [I21.4] Subjective: Clinical Changes /Abnormalities: Seen & examined in room. at bedside. No acute CV issues/concern overnight. Labs, vitals, & tele reviewed. Medications: Scheduled Meds: [Held by provider] insulin glargine 45 Units SubCUTAneous Daily insulin lispro 0-16 Units SubCUTAneous 4x Daily AC & HS hydrALAZINE 25 mg Oral BID sodium bicarbonate 650 mg Oral BID dianeal lo-nader 2.5% 2,500 mL IntraPERitoneal 4x Daily sodium chloride flush 5-40 mL IntraVENous 2 times per day atorvastatin 80 mg Oral Nightly busPIRone 15 mg Oral TID clopidogrel 75 mg Oral Daily furosemide 80 mg Oral BID metoprolol succinate 100 mg Oral BID pantoprazole 40 mg Oral BID Continuous Infusions: dextrose sodium chloride heparin (PORCINE) Infusion 17 Units/kg/hr (02/12/25 0555) CBC: Recent Labs 02/09/25195702/10/25 0441 02/11/25 0606 WBC 9.0 8.3 8.0 HGB 10.2* 9.8* 9.5* PLT 236 212 213 BMP: Recent Labs 02/10/2544002/11/25 0606 02/12/25 0758 NA 134* 131* 135* K 4.3 4.5 4.5 CL 98 96* 98 CO2 19* 15* 19* BUN 56* 53* 53* CREATININE 6.3* 6.8* 7.0* GLUCOSE 258* 326* 268* Hepatic:No results for input(s): AST , ALT , BILITOT , ALKPHOS in the last 72 hours. Invalid input(s): ALB Troponin: Recent Labs 02/09/25 1758 02/09/251957 TROPHS 1,968* 2,122* BNP: No results for input(s): BNP in the last 72 hours. Lipids: Recent Labs 02/10/25 0441 CHOL 96 HDL 35* INR: Recent Labs 02/09/251957 INR 1.3 Objective: Vitals: BP 121/73 Pulse 75 Temp 98.1 F (36.7 C) (Oral) Resp 20 Ht 1.753 m (5' 9 ) Wt (!) 137.2 kg (302 lb 7.5 oz) Comment: empty SpO2 100% BMI 44.67 kg/m General appearance: alert and cooperative with exam HEENT: Head: Normocephalic, no lesions, without obvious abnormality. Neck:no JVD, trachea midline, no adenopathy Lungs: Clear to auscultation Heart: Regular rate and rhythm, s1/s2 auscultated, no murmurs Abdomen: soft, non-tender, bowel sounds active, obese Extremities: no edema Neurologic: not done ECHO (TTE) COMPLETE (PRN CONTRAST/BUBBLE/STRAIN/3D) 10/23/2024 3:43 PM (Final) Interpretation Summary Left Ventricle: Normal left ventricular systolic function. EF by visual approximation is 56%. Left ventricle size is normal. Moderately increased wall thickness. Findings consistent with moderate concentric hypertrophy. No regional wall motion abnormalities identified. Decreased sensitivity due to poor endocardial definition. Mitral Valve: Mild regurgitation with a centrally directed jet. Tricuspid Valve: Mild regurgitation. Left Atrium: Left atrium is moderately dilated. Pericardium: Trivial localized pericardial effusion present around the left ventricle. No indication of cardiac tamponade. Image quality is technically difficult. Technically difficult study. Technically difficult suboptimal images Normal LV systolic function Moderate concentric left hypertrophy Moderate left atrial enlargement Probable mild tricuspid and mitral regurgitation although suboptimal image Cardiac Cath 09/2019 Indications: - Angina - Unstable - Coronary lesion - more than 50% Conclusions Procedure Summary Successful PCI / Drug Eluting Stent of the mid LAD. Successful PCI / Drug Eluting Stent of the distal LCX. Recommendations Routine Post Stent Orders. Medical therapy as needed. Risk factor modification. 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 Carcinoid tumor of stomach (HCC) Liver metastases Generalized anxiety disorder Morbid obesity due to excess calories CKD (chronic kidney disease) stage 3, GFR 30-59 ml/min (HCC) Acquired buried penis Right sided numbness History of pulmonary embolus (PE) Controlled type 2 diabetes mellitus without complication, with long-term current use of insulin (HCC) CKD (chronic kidney disease) stage 4, GFR 15-29 ml/min (HCC) Chronic renal disease, stage III ([facility]) [[id number]] Type 2 diabetes mellitus with hyperglycemia Type 2 diabetes mellitus with chronic kidney disease Thrombocytopenia, unspecified End stage renal disease (HCC) NSTEMI (non-ST elevated myocardial infarction) ([facility]) 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 dialysis Plan of Treatment: Stable and denies any CP at present. Continue PO Plavix, statin, Tropol & Heparin gtt Volume management per nephrology/HD appreciate assistance Of note, patient stated that if he has multivessel CAD on cardiac cath, he does not want bypass surgery and would like stents only. Npo for cath today Echo pending [employer] [phone] * Ángela Jordan RN - 02/12/2025 9:07 AM EDT Images from the original note were not included. [facility] Diabetes Education Nurse Reason for Educator consult --- Evaluation and Assessment of use of insulin pump (continuous subcutaneous insulin infusion) from home and plan for continuation of patient self-management of insulin pump as inpatient. Patient admission on 2024 - per chart review transfer in from another facility for [facility]. Patient has history of type 2 diabetes and care in community from [facility] - Dr Nowak with last visit in Nov 2024, in media section is insulin pump download. See Snipe of record for reference of insulin use and Blood glucose control from the last appt Med[employer] Mini Med 770G with CGM Please see medica section for full report On 02/10/2025 patient has signed - Patient Responsibility form for Inpatient Insulin Pump use formand has insulin pump communication log sheet at bedside Education And Development Manager rounded at about 9: 15 am and spoke with patient and his this am. States has been on a pump for 5- 6 years. Patient states current pump is OFF at this time - he is need of new reservoir. Cgm is in place on his right upper arm - he stated CGM life is about 5 days. Patient states daughter can bring in pump supplies from home, and is expected to bring up to hospital today . Patient and family are from over 1 hour away. Education And Development Manager explained [place] policy that patient must have extra pump supplies available at bedside to continue use of pump as an inpatient. Patient states feeling comfortable re starting pump, aware if lantus dose in last 24 hours this insulin will still be active when pump resumes. Aware to have pump in auto mode with CGM to allow for close BG trend with insulin pump restart. Patient stated plan is for testing or procedures today, and he does not plan to resume pump until they are done and results back. Current insulin plan as inpatient - Internal Med - SQ basal / bolus Verbally reviewed safety with use of insulin pump as inpatient with patient and , changes in conditions that would require modification of this plan, including but not limited to: a decreased level of consciousness / disorientation/ confusion, diabetic ketoacidosis, impaired circulation or subcu taneous absorption, or any change in condition that prohibits independent pump self-management. Patient denies further questions or concerns at this time. DMED team will keep this patient on list and follow case, if any needs please call out patient office - [phone] ÁNGELA JORDAN RN * Rene Monroy MD - 02/12/2025 8:20 AM EDT Renal Progress Note Patient : Lorenzo Amato; 54 y.o. Location: 0547/0547-01 Attending: Tania Aguilar MD Admit Date: 02/09/2025 Hospital Day: 3 Patient seen on CAPD Subjective: Patient seen and examined at bedside Patient denies any chest pain, nausea, vomiting, abdominal pain, change in bowel or bladder habits. Urine output 1.4 L in last 24 hours. Brief History reviewed. Lorenzo Amato; 54 y.o. male with past medical history ESRD secondary to diabetic nephropathy on peritoneal dialysis, poorly controlled type 2 diabetes mellitus on insulin pump, history of DVT and PEs/p clogged IVC filter, on Eliquis, gastric carcinoid tumor on monthly octreotide injections, combined systolic and diastolic heart failure EF 32%, CAD s/p PCI x 3 in June, hypertension, NABOR on CPAP presents from [facility]CF with sudden onset chest pressure radiating to his left arm and associated with nausea, diaphoresis, shortness of breath. Pain relieved with sublingual nitroglycerin. Troponin 1900,repeat 2100. Patient was started on heparin drip and admitted for NSTEMI. Transferred to [facility] for cardiology evaluation. Nephrology consulted for management of ESRD. Patient was previously on hemodialysis, initiated on 06/16/2024 due to volume overload, and later switched to peritoneal dialysis per patient preference. He is on CAPD 7 days a week using 2.5% dextrosewith 2L dwell volume, over 120min for total of 4 exchanges. Ultrafiltration 2 L[address] Patient follows with Dr. Miller. On Lasix 80 mg daily and hydralazine 100 BID at home. Outpatient Medications: Medications Prior to Admission: ELIQUIS 5 MG TABS tablet, TAKE ONE TABLET BY MOUTH TWICE A DAY AURYXIA 1 GM 210 MG(Fe) TABS tablet, Take 1 tablet by mouth 2 times daily (with meals) furosemide (LASIX) 80 MG tablet, Take 1 tablet by mouth 2 times daily epoetin santino (EPOGEN;PROCRIT) 26686 UNIT/ML injection, Inject 1 mL into the skin Every Wednesday, Wednesday, and Wednesday HUMALOG 100 UNIT/ML SOLN injection vial, Use via pump max dose 350 units/day pantoprazole (PROTONIX) 40 MG tablet, Take 1 tablet by mouth in the morning and at bedtime atorvastatin (LIPITOR) 80 MG tablet, TAKE 1 TABLET BY MOUTH ONE TIME DAILY DULoxetine (CYMBALTA) 60 MG extended release capsule, TAKE ONE CAPSULE BY MOUTH ONE TIME DAILY sacubitril-valsartan (ENTRESTO) 24-26 MG per tablet, Take 1 tablet by mouth 2 times daily busPIRone (BUSPAR) 15 MG tablet, TAKE ONE TABLET BY MOUTH THREE TIMES A DAY clopidogrel (PLAVIX) 75 MG tablet, Take 1 tablet by mouth daily metoprolol succinate (TOPROL XL) 100 MG extended release tablet, Take 1 tablet by mouth in the morning and at bedtime hydrALAZINE (APRESOLINE) 50 MG tablet, Take 2 tablets by mouth 2 times daily octreotide ACETATE (SANDOSTATIN LAR DEPOT) 30 MG injection, INJECT 30MG INTRAMUSCULARLY ONCE EVERY 28 DAYS triamcinolone (KENALOG) 0.1 % cream, Apply to the affected area 2 times a day. clotrimazole-betamethasone (LOTRISONE) 1-0.05 % cream, Apply topically 2 times daily. vitamin D (ERGOCALCIFEROL) 1.25 MG (06806 UT) CAPS capsule, Take 1 capsule by mouth once a week Insulin Pen Needle 31G X 8 MM MISC, 1 each by Does not apply route 4 times daily Use four times daily with insulin. sennosides-docusate sodium (SENOKOT-S) 8.6-50 MG tablet, Take 2 tablets by mouth 2 times daily as needed for Constipation blood glucose test strips (PickUpPalIGY NO CODING BLOOD GLUC) strip, 1 each by In Vitro route 3 times daily As needed. Please dispense 3 boxes of 100. meclizine (ANTIVERT) 25 MG tablet, Take 1 tablet by mouth 3 times daily as needed for Dizziness calcitRIOL (ROCALTROL) 0.5 MCG capsule, TAKE 1 CAPSULE BY MOUTH THREE DAYS (TIMES) A WEEK ON MON, WED & FRI (Patient not taking: Reported on 02/09/2025) nitroGLYCERIN (NITROSTAT) 0.[address], [address] 1 tablet under the tongue every 5 minutes as needed for Chest pain fluticasone (FLONASE) 50 MCG/ACT nasal spray, 2 sprays by Nasal route daily Prodigy Lancets 28G MISC, 1 box by Does not apply route 3 times daily glucagon 1 MG injection, Mix and inject entire contents of vial into muscle for severe low blood sugar Current Medications: Scheduled Meds: insulin glargine 45 Units SubCUTAneous Daily insulin lispro 0-16 Units SubCUTAneous 4x Daily AC & HS hydrALAZINE 25 mg Oral BID sodium bicarbonate 650 mg Oral BID dianeal lo-nader 2.5% 2,500 mL IntraPERitoneal 4x Daily sodium chloride flush 5-40 mL IntraVENous 2 times per day atorvastatin 80 mg Oral Nightly busPIRone 15 mg Oral TID clopidogrel 75 mg Oral Daily furosemide 80 mg Oral BID metoprolol succinate 100 mg Oral BID pantoprazole 40 mg Oral BID Continuous Infusions: dextrose sodium chloride heparin (PORCINE) Infusion 17 Units/kg/hr (02/12/25 0555) PRN Meds: glucose, dextrose bolus OR dextrose bolus, glucagon (rDNA), dextrose, sodium chlorideflush, sodium chloride, ondansetron OR ondansetron, acetaminophen OR acetaminophen, magnesium hydroxide, nitroGLYCERIN, sulfur hexafluoride microspheres, morphine, meclizine, heparin (porcine), heparin (porcine), gentamicin Input/Output: I/O last 3 completed shifts: In: 23325.3 [P.O.:870; I.V.:521.3; Other:00017] Out: 27151 [Urine:2375; Other:24796]. Patient Vitals for the past 96 hrs (Last 3 readings): Weight 02/12/25 0600 (!) 137.2 kg (302 lb 7.5 oz) 02/11/25 2230 (!) 136.8 kg (301 lb 9.4 oz) 02/11/25 0533 (!) 137.2 kg (302 lb 7.5 oz) Vital Signs: Temperature: Temp: 98.4 F (36.9 C) TMax: Temp (24hrs), Av.3 F (36.8 C), Min:98.2 F (36.8 C), Max:98.4 F (36.9 C) Respirations: Respirations: 20 Pulse: Pulse: 79 BP: BP: 129/65 BP Range: Systolic (24hrs), Av , Min:107 , Max:129 Diastolic (24hrs), Av, Min:65, Max:70 Physical Examination: General: AO x3, speaking in full sentences, no accessory muscle use. HEENT: Atraumatic, normocephalic, no throat congestion, moist mucosa. Eyes: PERRLA Neck: Supple Chest: Bilateral breath sounds clear, no crackles or wheezes. Cardiac: S1 S2 RR, no murmurs, gallops or rubs. Abdomen: Soft, non-tender, no masses or organomegaly, BS audible, PD catheter present. : No suprapubic or flank tenderness. Neuro: AAO x 3, No FND. SKIN: No rashes, abrasions, or ecchymoses, good skin turgor. Extremities: No edema. Labs: Recent Labs 02/09/25195702/10/2544002/11/25 0606 WBC 9.0 8.3 8.0 RBC 3.59* 3.46* 3.36* HGB 10.2* 9.8* 9.5* HCT 33.0* 31.9* 31.0* MCV 91.9 92.2 92.3 MCH 28.4 28.3 28.3 MCHC 30.9 30.7 30.6 RDW 20.2* 20.0* 19.9* PLT 236 212 213 MPV 9.7 9.6 9.9 BMP: Recent Labs 02/09/25175702/10/2544002/11/25 0606 NA -- 134* 131* K -- 4.3 4.5 CL -- 98 96* CO2 -- 19* 15* BUN -- 56* 53* CREATININE 6.3* 6.3* 6.8* GLUCOSE -- 258* 326* CALCIUM -- 9.0 8.9 Phosphorus: Recent Labs 02/11/25 0606 PHOS 5.8* Magnesium: Recent Labs 02/10/25 0441 MG 2.5 Radiology: Reviewed. Assessment: ESRD secondary to diabetic nephropathy on CAPD 7 days a week using 2.5% dianeal, 2 L dwell volume over 120 minutes for total of 4 exchanges with ultrafiltration of 2 L. Currently on 2.5% dianeal, 2.5L with 3-hour dwell time for total of 4 exchanges. Establish at [facility] and is under the care of Dr. Miller. Has right AV fistula. Dialysis initiated on 06/16/2024 due to volume overload. His dry weight is 137 kg. Admitted with 137.5 kg. 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 On Eliquis due to clogged filter NABOR on CPAP Anemia of chronic disease, on GENARO and aurxya Secondary hyperparathyroidism, on calcitrol Hypertension Plan: 1. Continue same CAPD prescription as ordered 2. Will discontinue hydralazine for now due to hypotension 3. Continue Toprol 4. Continue to hold Entresto if activity off Entresto and patient's with ESRD not clearly defined 5. Continue Bumex 6. Above plan discussed with patient and nursing staff 7. Will follow Nutrition Please ensure that patient is on a renal diet/TF. Avoid nephrotoxic drugs/contrast exposure. Spring Ivory MD PGY-2, Internal Medicine Resident [facility] [place] 02/12/2025, 8:20 AM Attending Physician Statement I have discussed the care of Lorenzo Amato, including pertinent history and exam findings with theresident/fellow. I have reviewed the singer elements of all parts of the encounter with the resident/fellow. I have seen and examined the patient with the resident/fellow. I agree with the assessment and plan and status of the problem list as documented. Patient seen and examined. He is scheduled for cardiac cath this afternoon. Patient has history of end-stage renal disease and is on CAPD. He does 4 manual exchanges at home 2L bags, 2.5% dianeal. He typically notices ultrafiltration of 1500 to 2 L/day He was admitted to the hospital with chest pain and is scheduled for a cardiac cath. He is currently pain-free. Vitals are stable no fever blood pressure 140/70. On exam his breath sounds appear a little diminished otherwise unremarkable. S1-S2 is heard no rubs no S3 abdomen shows a PD catheter in place, exit site looks okay. No significant lower extremity edema Assessment: ESRD on CAPD. Continue current CAPD prescription. Okay for cardiac cath from renal standpoint History of diabetes mellitus type 2 History of essential hypertension Plan: No changes in COPD at this time. Okay for cardiac Cath Rene Monroy MD , MD * Tania Aguilar MD - 02/11/2025 11:54 AM EDT [facility] IN-PATIENT SERVICE [facility] Progress Note 02/11/2025 11:54 AM Name: Lorenzo Amato Acct: [id number] Room: 0547/0547-01 Day: 2 Admit Date: 02/09/2025 5:43 PM PCP: Lion Carlson MD Code Status: Full Code Subjective: Interval History Status: not changed. Denies chest pain or shortness of breath. Has been afebrile. Patient with history of coronary artery disease status post PTCA and multiple stents placements in the past who presented to outlying facility with chest pain yesterday that was relieved by nitro. Troponin was elevated and his diagnosis was consistent with NSTEMI she was transferred to [facility] for cardiology evaluation and management. Patient is also end-stage renal disease on peritoneal dialysis. He was started on medical treatment including heparin drip. Medications: Allergies: Allergies Allergen Reactions Ketorolac Tromethamine Other (See Comments) Pt went into kidney failure Lisinopril Other (See Comments) and Cough Cough Current Meds: Scheduled Meds: insulin lispro 0-16 Units SubCUTAneous 4x Daily AC & HS insulin glargine 30 Units SubCUTAneous Daily dianeal lo-nader 2.5% 2,500 mL IntraPERitoneal 4x Daily sodium chloride flush 5-40 mL IntraVENous 2 times per day atorvastatin 80 mg Oral Nightly busPIRone 15 mg Oral TID clopidogrel 75 mg Oral Daily furosemide 80 mg Oral BID metoprolol succinate 100 mg Oral BID pantoprazole 40 mg Oral BID hydrALAZINE 50 mg Oral BID Continuous Infusions: dextrose sodium chloride heparin (PORCINE) Infusion 17 Units/kg/hr (02/11/25 0719) PRN Meds: glucose, dextrose bolus OR dextrose bolus, glucagon (rDNA), dextrose, sodium chlorideflush, sodium chloride, ondansetron OR ondansetron, acetaminophen OR acetaminophen, magnesium hydroxide, nitroGLYCERIN, sulfur hexafluoride microspheres, morphine, meclizine, heparin (porcine), heparin (porcine), gentamicin Data: Past Medical History: has a past medical history of Anemia, Arthritis, CAD (coronary artery disease), Chronic kidney disease, CKD (chronic kidney disease), 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 dialysis, Depression, Disease of blood and blood forming organ, DVT (deep venous thrombosis) (HCC), GERD (gastroesophageal reflux disease), GERD (gastroesophageal reflux disease), GI bleed, [place] filter in place, History of blood transfusion, Hypercholesteremia, Hypertension, Liver metastases, CO (myocardial infarction) (HCC), MS (multiple sclerosis) (HCC), Neuroendocrine tumor (HCC), Other disorders of kidneyand ureter in diseases classified elsewhere, PE (pulmonary embolism), Type II or unspecified type di abetes mellitus without mention of complication, not stated as uncontrolled, Unspecified sleep apnea, and Vitamin D deficiency. Social History: reports that he has never smoked. He has never been exposed to tobacco smoke. He has quit using smokeless tobacco. His smokeless tobacco use included chew. He reports that he does notdrink alcohol and does not use drugs. Family History: Family History Problem Relation Age of Onset Cancer Mother ovarian Heart Disease Father Arthritis Brother Vitals: BP 107/69 Pulse 75 Temp 98.3 F (36.8 C) (Oral) Resp 16 Ht 1.753 m (5' 9 ) Wt (!) 137.2 kg(302 lb 7.5 oz) Comment: empty SpO2 98% BMI 44.67 kg/m Temp (24hrs), Av.1 F (36.7 C), Min:97.8 F (36.6 C), Max:98.3 F (36.8 C) Recent Labs 02/10/25170002/10/25202102/11/25 0802/11/25 1036 POCGLU 193* 231* 267* 305* I/O (24Hr): Intake/Output Summary (Last 24 hours) at 02/11/2025 1154 Last data filed at 02/11/2025 1005 Gross per 24 hour Intake 59987.29 ml Output 71737 ml Net 1006.29 ml Labs: Hematology: Recent Labs 02/09/25195702/10/2544002/11/25605 WBC 9.0 8.3 8.0 RBC 3.59* 3.46* 3.36* HGB 10.2* 9.8* 9.5* HCT 33.0* 31.9* 31.0* MCV 91.9 92.2 92.3 MCH 28.4 28.3 28.3 MCHC 30.9 30.7 30.6 RDW 20.2* 20.0* 19.9* PLT 236 212 213 MPV 9.7 9.6 9.9 INR 1.3 -- -- Chemistry: Recent Labs 02/09/25175702/09/25195702/10/25440 NA -- -- 134* K -- -- 4.3 CL -- -- 98 CO2 -- -- 19* GLUCOSE -- -- 258* BUN -- -- 56* CREATININE 6.3* -- 6.3* MG -- -- 2.5 ANIONGAP -- -- 17* LABGLOM 10* -- 10* CALCIUM -- -- 9.0 TROPHS 1,968* 2,122* -- Recent Labs 02/10/2544002/10/2581902/10/25 11302/10/25 1555 02/10/25170002/10/25202102/11/25 0606 02/11/25 0840 02/11/25 1036 LABA1C -- -- -- -- -- -- 9.1* -- -- CHOL 96 -- -- -- -- -- -- -- -- HDL 35* -- -- -- -- -- -- -- -- CHOLHDLRATIO 2.7 -- -- -- -- -- -- -- -- TRIG 80 -- -- -- -- -- -- -- -- VLDL 16 -- -- -- -- -- -- -- -- POCGLU -- < > 308* 189* 193* 231* -- 267* 305* < > = values in this interval not displayed. ABG: Lab Results Component Value Date/Time FIO2 TRAUMA 09/04/2019 03:10 AM Lab Results Component Value Date/Time SPECIAL NOT REPORTED 10/27/2018 01:44 PM Lab Results Component Value Date/Time CULTURE (A) 06/20/2023 08:15 PM STAPHYLOCOCCUS AUREUS HEAVY GROWTH This isolate is methicillin susceptible. Radiology: No results found. Physical Examination: General appearance: alert, cooperative and no distress Lungs: clear to auscultation bilaterally, normal effort Heart: regular rate and rhythm, no murmur Abdomen: soft, nontender, nondistended, normal bowel sounds Extremities: no edema, redness, tenderness in the calves Skin: no gross lesions or rashes Assessment: Hospital Problems Last Modified POA * (Principal) NSTEMI (non-ST elevated myocardial infarction) (HCC) 02/09/2025 Yes NABOR (obstructive sleep apnea) 02/09/2025 Yes Overview Signed 01/10/2013 1:38 PM by Yessenia Kim CPAP Mixed hyperlipidemia 02/09/2025 Yes Benign essential HTN 02/09/2025 Yes GERD (gastroesophageal reflux disease) 02/09/2025 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 02/09/2025 Yes 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 Continue heparin drip and medical treatment. Patient is on Plavix statin and beta-ector already. Currently is chest pain-free. Patient is scheduled for cath on Wednesday. End-stage renal disease on peritoneal dialysis: Nephrology has been consulted to resume peritoneal dialysis while in the hospital. Labs reviewed Type 2 diabetes: He is on insulin pump which I have resumed. Patient has run out of his insulin pump insulin supplies, I am going to switch him to Lantus 30 units/day and high intensity sliding scaleand adjust as needed. Morbid obesity with NABOR/OHS syndrome continue home CPAP Hypertension is controlled: Continue metoprolol and hydralazine History of carcinoid tumor of the stomach with liver mets on octreotide injection Dyslipidemia: Continue statin Tania Aguilar MD 02/11/2025 11:54 AM * Jm Bernabe, PROCESS OWNER - CLAIMS ADJUSTOR - 02/11/2025 11:40 AM EDT Images from the original note were not included. [facility] Progress Note Date: 02/11/2025 Patient name: Lorenzo Amato Date of admission: 02/09/2025 5:43 PM Date of : 1970 PCP: Lion Carlson MD Reason for Admission: NSTEMI (non-ST elevated myocardial infarction) (HCC) [I21.4] Subjective: Clinical Changes /Abnormalities: Seen & examined in room. No acute CV issues/concern overnight.Labs, vitals, & tele reviewed. Review of Systems Medications: Scheduled Meds: insulin lispro 0-16 Units SubCUTAneous 4x Daily AC & HS insulin glargine 30 Units SubCUTAneous Daily dianeal lo-nader 2.5% 2,500 mL IntraPERitoneal 4x Daily sodium chloride flush 5-40 mL IntraVENous 2 times per day atorvastatin 80 mg Oral Nightly busPIRone 15 mg Oral TID clopidogrel 75 mg Oral Daily furosemide 80 mg Oral BID metoprolol succinate 100 mg Oral BID pantoprazole 40 mg Oral BID hydrALAZINE 50 mg Oral BID Continuous Infusions: dextrose sodium chloride heparin (PORCINE) Infusion 17 Units/kg/hr (02/11/25 0719) CBC: Recent Labs 02/09/25195702/10/2544002/11/25 0606 WBC 9.0 8.3 8.0 HGB 10.2* 9.8* 9.5* PLT 236 212 213 BMP: Recent Labs 02/09/25175702/10/25440 NA -- 134* K -- 4.3 CL -- 98 CO2 -- 19* BUN -- 56* CREATININE 6.3* 6.3* GLUCOSE -- 258* Hepatic:No results for input(s): AST , ALT , BILITOT , ALKPHOS in the last 72 hours. Invalid input(s): ALB Troponin: Recent Labs 02/09/25175702/09/251957 TROPHS 1,968* 2,122* BNP: No results for input(s): BNP in the last 72 hours. Lipids: Recent Labs 02/10/25440 CHOL 96 HDL 35* INR: Recent Labs 02/09/251957 INR 1.3 Objective: Vitals: BP 107/69 Pulse 75 Temp 98.3 F (36.8 C) (Oral) Resp 16 Ht 1.753 m (5' 9 ) Wt (!) 137.2 kg (302 lb 7.5 oz) Comment: empty SpO2 98% BMI 44.67 kg/m General appearance: alert and cooperative with exam HEENT: Head: Normocephalic, no lesions, without obvious abnormality. Neck:no JVD, trachea midline, no adenopathy Lungs: Clear to auscultation Heart: Regular rate and rhythm, s1/s2 auscultated, no murmurs Abdomen: soft, non-tender, bowel sounds active, obese Extremities: no edema Neurologic: not done ECHO (TTE) COMPLETE (PRN CONTRAST/BUBBLE/STRAIN/3D) 10/23/2024 3:43 PM (Final) Interpretation Summary Left Ventricle: Normal left ventricular systolic function. EF by visual approximation is 56%. Left ventricle size is normal. Moderately increased wall thickness. Findings consistent with moderate concentric hypertrophy. No regional wall motion abnormalities identified. Decreased sensitivity due to poor endocardial definition. Mitral Valve: Mild regurgitation with a centrally directed jet. Tricuspid Valve: Mild regurgitation. Left Atrium: Left atrium is moderately dilated. Pericardium: Trivial localized pericardial effusion present around the left ventricle. No indication of cardiac tamponade. Image quality is technically difficult. Technically difficult study. Technically difficult suboptimal images Normal LV systolic function Moderate concentric left hypertrophy Moderate left atrial enlargement Probable mild tricuspid and mitral regurgitation although suboptimal image Cardiac Cath 09/2019 Indications: - Angina - Unstable - Coronary lesion - more than 50% Conclusions Procedure Summary Successful PCI / Drug Eluting Stent of the mid LAD. Successful PCI / Drug Eluting Stent of the distal LCX. Recommendations Routine Post Stent Orders. Medical therapy as needed. Risk factor modification. Assessment / Acute Cardiac Problems: NSTEMI CAD with previous history of stenting to LAD/LCx in 2019 and again last year at OSH for which records are not available ESRD on peritoneal dialysis Type 2 diabetes mellitus Hypertension Patient Active Problem List: Multiple sclerosis (HCC) CAD (coronary artery disease) Iron deficiency anemia NABOR (obstructive sleep apnea) Mixed hyperlipidemia Benign essential HTN Vitamin D deficiency GERD (gastroesophageal reflux disease) nursing home current use of anticoagulant therapy Carcinoid tumor of stomach (HCC) Liver metastases Generalized anxiety disorder Morbid obesity due to excess calories CKD (chronic kidney disease) stage 3, GFR 30-59 ml/min (HCC) Acquired buried penis Right sided numbness History of pulmonary embolus (PE) Controlled type 2 diabetes mellitus without complication, with long-term current use of insulin (HCC) CKD (chronic kidney disease) stage 4, GFR 15-29 ml/min (HCC) Chronic renal disease, stage III (HCC) [091186] Type 2 diabetes mellitus with hyperglycemia Type 2 diabetes mellitus with chronic kidney disease Thrombocytopenia, unspecified End stage renal disease (HCC) NSTEMI (non-ST elevated myocardial infarction) (HCC) 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 dialysis Plan of Treatment: Stable and denies any CP at present. Continue PO Plavix, statin, Tropol & Heparin gtt Volume management per nephrology/HD appreciate assistance Of note, patient stated that if he has multivessel CAD on cardiac cath, he does not want bypass surgery and would like stents only. Npo for cath tomorrow Echo pending [employer] [facility] [employer]. [phone] * Carrie Sharp MD - 02/11/2025 11:16 AM EDT Renal Progress Note Patient : Lorenzo Amato; 54 y.o. Location: 0547/0547-01 Attending: Tania Aguilar MD Admit Date: 02/09/2025 Hospital Day: 2 Patient seen on CAPD Subjective: Patient seen and examined at bedside, maintained on Dianeal lo-nader 2.5 L, 4 exchanges daily. Intake and output reviewed, urine output documented at 1650 mL over the past 24 hours, PD output documented at 1.9 L over same timeframe. Labs reviewed, no BMP ordered today. Brief History reviewed. Lorenzo Amato; 54 y.o. male with past medical history ESRD secondary to diabetic nephropathy on peritoneal dialysis, poorly controlled type 2 diabetes mellitus on insulin pump, history of DVT and PEs/p clogged IVC filter, on Eliquis, gastric carcinoid tumor on monthly octreotide injections, combined systolic and diastolic heart failure EF 32%, CAD s/p PCI x 3 in June, hypertension, NABOR on CPAP presents from [facility]CF with sudden onset chest pressure radiating to his left arm and associated with nausea, diaphoresis, shortness of breath. Pain relieved with sublingual nitroglycerin. Troponin 1900,repeat 2100. Patient was started on heparin drip and admitted for NSTEMI. Transferred to [facility] for cardiology evaluation. Nephrology consulted for management of ESRD. Patient was previously on hemodialysis, initiated on 06/16/2024 due to volume overload, and later switched to peritoneal dialysis per patient preference. He is on CAPD 7 days a week using 2.5% dextrosewith 2L dwell volume, over 120min for total of 4 exchanges. Ultrafiltration 2 L. Patient follows with Dr. Miller. On Lasix 80 mg daily and hydralazine 100 BID at home. Outpatient Medications: Medications Prior to Admission: ELIQUIS 5 MG TABS tablet, TAKE ONE TABLET BY MOUTH TWICE A DAY AURYXIA 1 GM 210 MG(Fe) TABS tablet, Take 1 tablet by mouth 2 times daily (with meals) furosemide (LASIX) 80 MG tablet, Take 1 tablet by mouth 2 times daily epoetin santino (EPOGEN;PROCRIT) 33632 UNIT/ML injection, Inject 1 mL into the skin Every Wednesday, Wednesday, and Wednesday HUMALOG 100 UNIT/ML SOLN injection vial, Use via pump max dose 350 units/day pantoprazole (PROTONIX) 40 MG tablet, Take 1 tablet by mouth in the morning and at bedtime atorvastatin (LIPITOR) 80 MG tablet, TAKE 1 TABLET BY MOUTH ONE TIME DAILY DULoxetine (CYMBALTA) 60 MG extended release capsule, TAKE ONE CAPSULE BY MOUTH ONE TIME DAILY sacubitril-valsartan (ENTRESTO) 24-26 MG per tablet, Take 1 tablet by mouth 2 times daily busPIRone (BUSPAR) 15 MG tablet, TAKE ONE TABLET BY MOUTH THREE TIMES A DAY clopidogrel (PLAVIX) 75 MG tablet, Take 1 tablet by mouth daily metoprolol succinate (TOPROL XL) 100 MG extended release tablet, Take 1 tablet by mouth in the morning and at bedtime hydrALAZINE (APRESOLINE) 50 MG tablet, Take 2 tablets by mouth 2 times daily octreotide ACETATE (SANDOSTATIN LAR DEPOT) 30 MG injection, INJECT 30MG INTRAMUSCULARLY ONCE EVERY 28 DAYS triamcinolone (KENALOG) 0.1 % cream, Apply to the affected area 2 times a day. clotrimazole-betamethasone (LOTRISONE) 1-0.05 % cream, Apply topically 2 times daily. vitamin D (ERGOCALCIFEROL) 1.25 MG (70692 UT) CAPS capsule, Take 1 capsule by mouth once a week Insulin Pen Needle 31G X 8 MM MISC, 1 each by Does not apply route 4 times daily Use four times daily with insulin. sennosides-docusate sodium (SENOKOT-S) 8.6-50 MG tablet, Take 2 tablets by mouth 2 times daily as needed for Constipation blood glucose test strips (PRODIGY NO CODING BLOOD GLUC) strip, 1 each by In Vitro route 3 times daily As needed. Please dispense 3 boxes of 100. meclizine (ANTIVERT) 25 MG tablet, Take 1 tablet by mouth 3 times daily as needed for Dizziness calcitRIOL (ROCALTROL) 0.5 MCG capsule, TAKE 1 CAPSULE BY MOUTH THREE DAYS (TIMES) A WEEK ON WED, WED & WED (Patient not taking: Reported on 02/09/2025) nitroGLYCERIN (NITROSTAT) 0.[address], [address] 1 tablet under the tongue every 5 minutes as needed for Chest pain fluticasone (FLONASE) 50 MCG/ACT nasal spray, 2 sprays by Nasal route daily Prodigy Lancets 28G MISC, 1 box by Does not apply route 3 times daily glucagon 1 MG injection, Mix and inject entire contents of vial into muscle for severe low blood sugar Current Medications: Scheduled Meds: insulin lispro 0-16 Units SubCUTAneous 4x Daily AC & HS insulin glargine 30 Units SubCUTAneous Daily dianeal lo-nader 2.5% 2,500 mL IntraPERitoneal 4x Daily sodium chloride flush 5-40 mL IntraVENous 2 times per day atorvastatin 80 mg Oral Nightly busPIRone 15 mg Oral TID clopidogrel 75 mg Oral Daily furosemide 80 mg Oral BID metoprolol succinate 100 mg Oral BID pantoprazole 40 mg Oral BID hydrALAZINE 50 mg Oral BID Continuous Infusions: dextrose sodium chloride heparin (PORCINE) Infusion 17 Units/kg/hr (02/11/25 0719) PRN Meds: glucose, dextrose bolus OR dextrose bolus, glucagon (rDNA), dextrose, sodium chlorideflush, sodium chloride, ondansetron OR ondansetron, acetaminophen OR acetaminophen, magnesium hydroxide, nitroGLYCERIN, sulfur hexafluoride microspheres, morphine, meclizine, heparin (porcine), heparin (porcine), gentamicin Input/Output: I/O last 3 completed shifts: In: 55832.2 [P.O.:480; I.V.:260.2; Other:13239] Out: 65167 [Urine:1650; Other:59886]. Patient Vitals for the past 96 hrs (Last 3 readings): Weight 02/11/25 0533 (!) 137.2 kg (302 lb 7.5 oz) 02/11/25 0100 (!) 136.5 kg (300 lb 14.9 oz) 02/10/25 2120 (!) 138.5 kg (305 lb 5.4 oz) Vital Signs: Temperature: Temp: 98.3 F (36.8 C) TMax: Temp (24hrs), Av.9 F (36.6 C), Min:97 F (36.1 C), Max:98.3 F (36.8 C) Respirations: Respirations: 16 Pulse: Pulse: 75 BP: BP: 107/69 BP Range: Systolic (24hrs), Av , Min:107 , Max:142 Diastolic (24hrs), Av, Min:69, Max:79 Physical Examination: General: AO x3, speaking in full sentences, no accessory muscle use. HEENT: Atraumatic, normocephalic, no throat congestion, moist mucosa. Eyes: PERRLA Neck: Supple Chest: Bilateral breath sounds clear, no crackles or wheezes. Cardiac: S1 S2 RR, no murmurs, gallops or rubs. Abdomen: Soft, non-tender, no masses or organomegaly, BS audible, PD catheter present. : No suprapubic or flank tenderness. Neuro: AAO x 3, No FND. SKIN: No rashes, abrasions, or ecchymoses, good skin turgor. Extremities: No edema. Labs: Recent Labs 02/09/25195702/10/2544002/11/25 0606 WBC 9.0 8.3 8.0 RBC 3.59* 3.46* 3.36* HGB 10.2* 9.8* 9.5* HCT 33.0* 31.9* 31.0* MCV 91.9 92.2 92.3 MCH 28.4 28.3 28.3 MCHC 30.9 30.7 30.6 RDW 20.2* 20.0* 19.9* PLT 236 212 213 MPV 9.7 9.6 9.9 BMP: Recent Labs 02/09/25 1758 02/10/25 0441 NA -- 134* K -- 4.3 CL -- 98 CO2 -- 19* BUN -- 56* CREATININE 6.3* 6.3* GLUCOSE -- 258* CALCIUM -- 9.0 Phosphorus: No results for input(s): PHOS in the last 72 hours. Magnesium: Recent Labs 02/10/25 0441 MG 2.5 Albumin: No results for input(s): LABALBU in the last 72 hours. BNP: No results found for: BNP XAVIER: Lab Results Component Value Date/Time XAVIER NEGATIVE 04/03/2013 10:00 AM SPEP: Lab Results Component Value Date/Time PATH ELECTRONICALLY SIGNED. DUNIA ROBERT M.D. 04/03/2013 10:00 AM UPEP: Lab Results Component Value Date/Time LABPE 04/03/2013 10:00 AM ELEVATED PROTEIN CONCENTRATION. MOST SERUM PROTEINS ARE DETECTED IN THIS URINE. C3: Lab Results Component Value Date/Time C3 170 04/03/2013 10:00 AM C4: Lab Results Component Value Date/Time C4 41 04/03/2013 10:00 AM MPO ANCA: Lab Results Component Value Date/Time MPO 15 04/03/2013 10:00 AM PR3 ANCA: Lab Results Component Value Date/Time PR3 11 04/03/2013 10:00 AM Anti-GBM: No results found for: GBMABIGG Hep BsAg: Lab Results Component Value Date/Time HEPBSAG NONREACTIVE 06/07/2024 12:42 PM Hep C AB: No results found for: HEPCAB Urinalysis/Chemistries: Lab Results Component Value Date/Time NITRU NEGATIVE 09/28/2019 01:00 PM COLORU YELLOW 09/28/2019 01:00 PM PHUR 6.0 09/28/2019 01:00 PM WBCUA NOT REPORTED 09/28/2019 01:00 PM RBCUA 0 TO 2 09/28/2019 01:00 PM MUCUS NOT REPORTED 09/28/2019 01:00 PM TRICHOMONAS NOT REPORTED 09/28/2019 01:00 PM YEAST NOT REPORTED 09/28/2019 01:00 PM BACTERIA NOT REPORTED 09/28/2019 01:00 PM CLARITYU clear 04/05/2014 12:00 AM SPECGRAV 1.015 04/05/2014 12:00 AM LEUKOCYTESUR NEGATIVE 09/28/2019 01:00 PM UROBILINOGEN Normal 09/28/2019 01:00 PM BILIRUBINUR NEGATIVE 09/28/2019 01:00 PM BILIRUBINUR neg 04/05/2014 12:00 AM BLOODU neg 04/05/2014 12:00 AM GLUCOSEU 1000 mg/dL 09/28/2019 01:00 PM KETUA NEGATIVE 09/28/2019 01:00 PM AMORPHOUS NOT REPORTED 09/28/2019 01:00 PM Urine Sodium: No components found for: DESRIEE Urine Potassium: Lab Results Component Value Date/Time KUR 18.0 06/16/2013 05:05 AM Urine Chloride: Lab Results Component Value Date/Time CLUR <15 06/16/2013 05:05 AM Urine Osmolarity: Lab Results Component Value Date/Time OSMOU 589 06/16/2013 05:05 AM Radiology: Reviewed. Assessment: ESRD secondary to diabetic nephropathy on CAPD 7 days a week using 2.5% dianeal, 2 L dwell volume over 120 minutes for total of 4 exchanges with ultrafiltration of 2 L. Currently on 2.5% dianeal, 2.5L with 3-hour dwell time for total of 4 exchanges. Establish at [facility] and is under the care of Dr. Miller. Has right AV fistula. Dialysis initiated on 06/16/2024 due to volume overload. His dry weight is 137 kg. Admitted with 137.5 kg. NSTEMI -cardiology planning for cath Wednesday. 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 On Eliquis due to clogged filter NABOR on CPAP Anemia of chronic disease, on GENARO and aurxya Secondary hyperparathyroidism, on calcitrol Hypertension Plan: Continue CAPD as ordered. Continue GENARO every MWF. Await results of today's BMP. Continue strict intake and output. Continue daily weights. Will follow. Nutrition Please ensure that patient is on a renal diet/TF. Avoid nephrotoxic drugs/contrast exposure. Herminia Gonzales APRN-CLAIMS ADJUSTOR [facility] Patient seen on CAPD with nurse practitioner Exchanges reviewed, net negative ultrafiltration of 500 mL per exchange noted. Also making good urine. Denies any shortness of breath orthopnea. Continues on BiPAP for sleep apnea. Plan for cardiac catheterization tomorrow. Blood pressures running somewhat on the low side. Antihypertensives including Toprol and hydralazine continue. Entresto has been put on hold. Lasix continues as per outpatientprescription. Clinical exam unremarkable, lung sounds clear heart sounds normal Labs today showed a sodium of 131 potassium 4.5 chloride 96 bicarb 15 BUN 53 creatinine 6.8 calcium8.9 hemoglobin A1c 9.1 Impression 1. ESRD secondary to diabetic nephrosclerosis on CAPD, does manual for exchanges, 2 L volume, 2.5% dialysate, dwell time of 2 to 4 hours with a total volume of [address] L. Follows up with Dr. Jha. Has significant decreased residual renal function 2. Acute [id number] CO presenting as chest pain the patient was previous history of cardiac disease and stent placement. Last cath in June 2024. Plan for cardiac catheterization tomorrow by cardiology 3. Hypotension likely iatrogenic 4. Severe cardiomyopathy ejection fraction 32% with compensated CHF 5. Poorly controlled diabetes on insulin pump 6. Low-grade gastric carcinoid tumor on monthly octreotide injections 7. History of venous thromboembolism on Eliquis, has a IVC filter as well Plan 1. Continue same CAPD prescription as ordered 2. Will discontinue hydralazine for now due to hypotension 3. Continue Toprol 4. Continue to hold Entresto if activity off Entresto and patient's with ESRD not clearly defined 5. Continue Bumex 6. Above plan discussed with patient and nursing staff 7. Will follow Attending Physician Statement I have discussed the care of Lorenzo Amato, including pertinent history and exam findings with theresident/fellow. I have reviewed the singer elements of all parts of the encounter with the resident/fellow. I have seen and examined the patient with the resident/fellow. I agree with the assessment and plan and status of the problem list as documented. . This note is created with the assistance of a speech-recognition program. While intending to generate a document that actually reflects the content of the visit, no guarantees can be provided that every mistake has been identified and corrected by editing. * Claudia Mg RN - 02/11/2025 10:06 AM EDT Education And Development Manager called to room. Pt out of insulin for his insulin pump. Education And Development Manager notified provider regarding sliding scale. Pt removed insulin pump. Patient agreeable to use sliding scale for this admission. Claudia Mg RN * Claudia Mg RN - 02/10/2025 12:48 PM EDT Extension tubing exchanged with new tubing. No leaking noted. Pt tolerated well. Claudia Mg RN * Claudia Mg RN - 02/10/2025 12:40 PM EDT Pt P.D extension tubing leaking. Tubing clamped. Nephrology notified. Per nephrology will come bedside to assess. Claudia Mg RN * Tania Aguilar MD - 02/10/2025 11:11 AM EDT [facility] IN-PATIENT SERVICE [facility] Progress Note 02/10/2025 11:11 AM Name: Lorenzo Amato Acct: [id number] Room: [facility]/05-[facility] Day: 1 Admit Date: 02/09/2025 5:43 PM PCP: Lion Carlson MD Code Status: Full Code Subjective: Interval History Status: not changed. Denies chest pain or shortness of breath. Has been afebrile. Patient with history of coronary artery disease status post PTCA and multiple stents placements in the past who presented to [facility] facility with chest pain yesterday that was relieved by nitro. Troponin was elevated and his diagnosis was consistent with NSTEMI she was transferred to [facility] for cardiology evaluation and management. Patient is also end-stage renal disease on peritoneal dialysis. He was started on medical treatment including heparin drip. Medications: Allergies: Allergies Allergen Reactions Ketorolac Tromethamine Other (See Comments) Pt went into kidney failure Lisinopril Other (See Comments) and Cough Cough Current Meds: Scheduled Meds: Insulin Pump - Bolus Dose SubCUTAneous 4x Daily AC & HS Insulin Pump - Basal Dose SubCUTAneous Daily dianeal lo-nader 2.5% 2,500 mL IntraPERitoneal Q4H sodium chloride flush 5-40 mL IntraVENous 2 times per day atorvastatin 80 mg Oral Nightly busPIRone 15 mg Oral TID clopidogrel 75 mg Oral Daily furosemide 80 mg Oral BID metoprolol succinate 100 mg Oral BID pantoprazole 40 mg Oral BID hydrALAZINE 50 mg Oral BID Continuous Infusions: dextrose sodium chloride heparin (PORCINE) Infusion 11 Units/kg/hr (02/10/25 0822) PRN Meds: glucose, dextrose bolus OR dextrose bolus, glucagon (rDNA), dextrose, sodium chlorideflush, sodium chloride, ondansetron OR ondansetron, acetaminophen OR acetaminophen, magnesium hydroxide, nitroGLYCERIN, sulfur hexafluoride microspheres, morphine, meclizine, heparin (porcine), heparin (porcine), gentamicin Data: Past Medical History: has a past medical history of Anemia, Arthritis, CAD (coronary artery disease), Chronic kidney disease, CKD (chronic kidney disease), 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 dialysis, Depression, Disease of blood and blood forming organ, DVT (deep venous thrombosis) (HCC), GERD (gastroesophageal reflux disease), GERD (gastroesophageal reflux disease), GI bleed, Lori filter in place, History of blood transfusion, Hypercholesteremia, Hypertension, Liver metastases, CO (myocardial infarction) (HCC), MS (multiple sclerosis) (HCC), Neuroendocrine tumor (HCC), Other disorders of kidneyand ureter in diseases classified elsewhere, PE (pulmonary embolism), Type II or unspecified type di abetes mellitus without mention of complication, not stated as uncontrolled, Unspecified sleep apnea, and Vitamin D deficiency. Social History: reports that he has never smoked. He has never been exposed to tobacco smoke. He has quit using smokeless tobacco. His smokeless tobacco use included chew. He reports that he does notdrink alcohol and does not use drugs. Family History: Family History Problem Relation Age of Onset Cancer Mother ovarian Heart Disease Father Arthritis Brother Vitals: BP 125/63 Pulse 88 Temp 97.6 F (36.4 C) (Oral) Resp 19 Ht 1.753 m (5' 9 ) Wt (!) 137.5 kg(303 lb 2.1 oz) SpO2 95% BMI 44.76 kg/m Temp (24hrs), Av.9 F (36.6 C), Min:97.6 F (36.4 C), Max:98.2 F (36.8 C) Recent Labs 02/09/25180902/09/25204302/10/25 0820 POCGLU 222* 285* 232* I/O (24Hr): Intake/Output Summary (Last 24 hours) at 02/10/2025 1111 Last data filed at 02/10/2025 1006 Gross per 24 hour Intake 5300 ml Output 2100 ml Net 3200 ml Labs: Hematology: Recent Labs 02/09/25195702/10/25440 WBC 9.0 8.3 RBC 3.59* 3.46* HGB 10.2* 9.8* HCT 33.0* 31.9* MCV 91.9 92.2 MCH 28.4 28.3 MCHC 30.9 30.7 RDW 20.2* 20.0* PLT 236 212 MPV 9.7 9.6 INR 1.3 -- Chemistry: Recent Labs 02/09/25175702/09/25195702/10/25440 NA -- -- 134* K -- -- 4.3 CL -- -- 98 CO2 -- -- 19* GLUCOSE -- -- 258* BUN -- -- 56* CREATININE 6.3* -- 6.3* MG -- -- 2.5 ANIONGAP -- -- 17* LABGLOM 10* -- 10* CALCIUM -- -- 9.0 TROPHS 1,968* 2,122* -- Recent Labs 02/09/25180902/09/25204302/10/2544002/10/25 0820 CHOL -- -- 96 -- HDL -- -- 35* -- CHOLHDLRATIO -- -- 2.7 -- TRIG -- -- 80 -- VLDL -- -- 16 -- POCGLU 222* 285* -- 232* ABG: Lab Results Component Value Date/Time FIO2 TRAUMA 09/04/2019 03:10 AM Lab Results Component Value Date/Time SPECIAL NOT REPORTED 10/27/2018 01:44 PM Lab Results Component Value Date/Time CULTURE (A) 06/20/2023 08:15 PM STAPHYLOCOCCUS AUREUS HEAVY GROWTH This isolate is methicillin susceptible. Radiology: No results found. Physical Examination: General appearance: alert, cooperative and no distress Lungs: clear to auscultation bilaterally, normal effort Heart: regular rate and rhythm, no murmur Abdomen: soft, nontender, nondistended, normal bowel sounds Extremities: no edema, redness, tenderness in the calves Skin: no gross lesions or rashes Assessment: Hospital Problems Last Modified POA * (Principal) NSTEMI (non-ST elevated myocardial infarction) (HCC) 02/09/2025 Yes NABOR (obstructive sleep apnea) 02/09/2025 Yes Overview Signed 01/10/2013 1:38 PM by Yessenia Kim CPAP Mixed hyperlipidemia 02/09/2025 Yes Benign essential HTN 02/09/2025 Yes GERD (gastroesophageal reflux disease) 02/09/2025 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 02/09/2025 Yes 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 Continue heparin drip and medical treatment. Patient is on Plavix statin and beta-ector already. Currently is chest pain-free. Awaiting cardiology recommendations End-stage renal disease on peritoneal dialysis: Nephrology has been consulted to resume peritoneal dialysis while in the hospital. Labs reviewed Type 2 diabetes: He is on insulin pump which I have resumed. His blood sugar today is better than what it was yesterday we will continue to monitor. Morbid obesity with NABOR/OHS syndrome continue home CPAP Hypertension is controlled: Continue metoprolol and hydralazine History of carcinoid tumor of the stomach with liver mets on octreotide injection Dyslipidemia: Continue statin Tania Aguilar MD 02/10/2025 11:11 AM * Claudia Mg RN - 02/10/2025 9:59 AM EDT Pt has cont. Glucose pump and monitor. Education And Development Manager added to pt LDA. Education And Development Manager notified provider regarding orders for insulin infusion pump. Claudia Mg, RN * Flip Morrissey RN - 02/09/2025 6:32 PM EDT Education And Development Manager took critical lab of creatinine 6.3 and trops 1,968. Education And Development Manager notified primary RN Yesika. * Carmen Leung RPH - 02/09/2025 6:29 PM EDT Images from the original note were not included. PHARMACY NOTE: The electrolyte replacement protocol for potassium/magnesium has been discontinued per P&T guidelines because the patient has reduced renal function (CrCl < 30 mL/min). The patient's most recent potassium & magnesium levels are: No results for input(s): K , MG in the last 72 hours. Estimated Creatinine Clearance: 18 mL/min (A) (based on SCr of 6.3 mg/dL (HH)). For patients with decreased renal function (below 30ml/min) needing potassium/magnesium supplementation, please order individual bolus doses with appropriate monitoring. Please contact the inpatient pharmacy with any concerns. Thank you. Carmen Leung RPH 02/09/2025 6:29 PM documented in this encounterBon [facility] Discharge instructions* Discharge Instructions* Kuldeep Tripp MD - 02/14/2025 4:13 PM EDT Please take aspirin, Plavix and Eliquis for 2 weeks. Stop aspirin after 2 weeks and continue takingPlavix and Eliquis continuously. Follow-up with cardiology in 2 weeks time. * Attachments The following attachments cannot be sent through Care Everywhere. * Blood Transfusions: General Info ([place] Citizen) documented in this encounterBon [facility] Discharge instructions* Discharge Instructions* Naa Flood RN - 08/29/2024 11:19 AM EDT Patient Discharge Instructions Discharge Date: 08/29/2024 HYGEINE: Ok to shower, no soaking in a tub/pool until seen at your follow up appointment. Clean incision daily with gentle soap and water, do not use alcohol/peroxide or any harsh cleansers. DRIVING: No driving while taking narcotic medications or while in pain DIET: Resume your normal diet as advised by your PCP. MEDICATIONS: Take all medications as prescribed. SPECIAL INSTRUCTIONS: Follow up with Dr. Montiel, call the clinic for appointment. Call sooner if fever above 100.4 degrees Farenheit, increase in swelling or redness, thick purulent discharge or pain not controlled with medications. SEDATION / ANALGESIA INFORMATION / HOME GOING ADVICE You have received the sedation/analgesia medication during your visit Sedation/analgesia is used during short medical procedures under controlled supervision. The medication will produce a strong relaxation. You will be able to hear, speak and follow instructions, but your memory and alertness will be decreased. You will be able to swallow and breathe on your own. During sedation/analgesia your blood pressure,heart and breathing will be watched closely. After the procedure, you may not remember what was said or done. You may have the following effects from the medication. Drowsiness, dizziness, sleepiness or confusion. Difficulty remembering or delayed reaction times. Loss of fine muscle control or difficulty with your balance especially while walking. Difficulty focusing or blurred vision. You may not be aware of slight changes in your behavior and/or your reaction time because of the medication used during the procedure. Therefore you should follow these instructions. Have someone responsible help you with your care. Do not drive for 24 hours. Do not operate equipment for 24 hours (lawnmowers, power tools, kitchen accessories, stove). Do not drink any alcoholic beverages for a minimum of 24 hours. Do not make important personal, legal or business decisions for 24 hours. You may experience dizziness or lightheadedness. Move slowly and carefully, do not make sudden position changes. Drink extra amounts of fluids today. Increase your diet as tolerated (unless you have received specific instructions from your doctor). If you feel nauseated, continue with liquids until the nausea is gone. Notify your physician if you have not urinated within 8 hours after the procedure. Resume your medications unless otherwise instructed. [facility] History of Present illness Narrative* Avani Herman RN - 08/29/2024 10:24 AM EDT NAsal trumpet removed at 10:08 * Avani Herman RN - 08/29/2024 10:10 AM EDT Received post AV fistula creation procedure to [facility] room 5. Assessment obtained. Restrictions reviewed with patient. Post procedure pathway initiated. Right arm site soft , dressing dry and intact. Patient adjusting his insulin pump to accommodate BS of 273 * Avani Herman RN - 08/29/2024 8:02 AM EDT Patient admitted, consent signed and questions answered. Patient ready for procedure. Call light toreach with side rails up 2 of 2. at bedside with patient. History and physical complete. 2% Chlorhexidine cloths used to prep site right arm [facility] History of Present illness Narrative* Ness Hardin RN - 06/27/2024 6:49 AM EDT Pt has been referred to Phase II Cardiac Rehab 06/21/24 s/p PCI. Pt would like to do his CR at [facility]. Referral faxed. documented in this [id number] Note* Plan of Care - Radha Acevedo RN - 06/22/2024 10:39 AM EDT Problem: Actual or potential alteration in health Goal: Absence of healthcare acquired conditions Outcome: Completed Goal: Knowledge of Interdisciplinary Plan of Care Outcome: Completed Goal: Knowledge of Enviroment Outcome: Completed Problem: Pain Goal: Reduced pain sensation Outcome: Completed Goal: Control of acute pain to acceptable level Outcome: Completed Goal: Able to cope with pain Outcome: Completed Goal: Able to achieve maximum level of physical functioning Outcome: Completed Goal: Able to achieve maximum level of psychosocial functioning Outcome: Completed [id number] Miscellaneous Notes* Plan of Care - Radha Acevedo RN - 06/22/2024 10:39 AM EDT Problem: Actual or potential alteration in health Goal: Absence of healthcare acquired conditions Outcome: Completed Goal: Knowledge of Interdisciplinary Plan of Care Outcome: Completed Goal: Knowledge of Enviroment Outcome: Completed Problem: Pain Goal: Reduced pain sensation Outcome: Completed Goal: Control of acute pain to acceptable level Outcome: Completed Goal: Able to cope with pain Outcome: Completed Goal: Able to achieve maximum level of physical functioning Outcome: Completed Goal: Able to achieve maximum level of psychosocial functioning Outcome: Completed * Sign Off Note - Jm Tellez CNP - 06/22/2024 9:27 AM EDT Cardiology Progress Note [facility] Cardiology Sign-Off Discharge Medications: Eliquis 5mg twice a day; Plavix 75mg daily; Toprol XL 100mg twice a day; Entresto 24-26mg twice a day; Lipitor 80mg daily; Lasix 40mg twice a day; Hydralazine 100mg twice a day; NTG 0.4mg SL as needed for chest pain; in addition to noncardiac medications Follow-up Imaging, Testing: TBD OP setting per [facility] Follow-up Appointments: Follow up w/ [facility]. Additional Instructions Reviewed with Patient and/or Family: Compliance with follow-up. Compliance with medications. Diet Instructions: low fat and low salt. Return to Normal Activity: Please see post cath/PCI/site care instructions.. Assessment/Plan: New systolic dysfunction Coronary artery disease End-stage renal disease on peritoneal dialysis with transition to hemodialysis EF 32%. S/p PCI intervention to LAD w/ cutting balloon, shockwave lithotripsy and TIFFANIE x 1; PCI D1 TIFFANIE x 2; unable to rescue jailed D1 behind LAD stent despite multiple attempts w/ residual ostial 80%stenosis. Patent stent to LCX-OM1, 100% occluded RCA w/ left to right collaterals. Right radial dressing dry and intact. No neurovascular compromise to RUE. Nephrology recommends patient resuming his Lasix 40mg twice a day for home. He is not on aspirin as he is on Eliquis and Plavix therapy and should remain off aspirin. GDMT for his LV dysfunction. Will add holding parameters for his blood pressure with the Entresto. Lopressor was switched to succinate therapy. Continue statin, Hydralazine. Adding as needed SL NTG. He has been referred to phase II cardiac rehab. This NUTRITION AIDE discussed Cardiac Rehabilitation with the patient. Subjects covered during this discussion included: The importance and benefits of Cardiac Rehab and exercise upon discharge from the hospital Instructed that a member of the Cardiac Rehab team will contact them to schedule these appointmentsafter discharge Were provided a list of locations to choose for this follow up. Cardiac Rehab will occur at to be determined Cardiac Rehab referral placed? YES Plan: Can be discharged from a cardiology standpoint. He will need to follow up w/ Dr. Oro OP setting. Continue to follow nephrology in OP setting. LOS: 7 days Subjective: Mr. Amato denies chest pain, dyspnea, palpitations, pain or swelling in the groin, peripheral swelling, or dizziness Objective: Vital signs in last 24 hours: Temp: [97.5 F (36.4 C)-97.8 F (36.6 C)] 97.5 F (36.4 C) Heart Rate: [69-87] 84 Resp: [16-22] 16 BP: (94-150)/(52-74) 150/60 Physical Exam: Alert, no acute distress JVP is not elevated Heart is regular rate and rhythm. No gallop or rub. No murmur Lungs are clear to ausculation bilaterally. Nonlabored respirations. Abdomen soft and nontender Lower extremities have no edema. New cardiac test results if any: Imaging: Lab Review Today's available lab reviewed. * Plan of Care - Isi Longoria RN - 06/22/2024 12:07 AM EDT Problem: Actual or potential alteration in health Goal: Absence of healthcare acquired conditions Outcome: Partially Met Goal: Knowledge of Interdisciplinary Plan of Care Outcome: Partially Met Goal: Knowledge of Enviroment Outcome: Partially Met Problem: Pain Goal: Reduced pain sensation Outcome: Partially Met Goal: Control of acute pain to acceptable level Outcome: Partially Met Goal: Able to cope with pain Outcome: Partially Met Goal: Able to achieve maximum level of physical functioning Outcome: Partially Met Goal: Able to achieve maximum level of psychosocial functioning Outcome: Partially Met * Quick Note - Roslyn Enciso CNP - 06/21/2024 4:07 PM EDT Patient with TR band intact to right radial, no bleeding or hematoma noted, pulse palpable, currently receiving HD, patient denies any chest pain or SOB. All questions and concerns addressed. Vital signs stable. * Vee Note - Roslyn Enciso CNP - 06/21/2024 8:50 AM EDT Patient to remain n.p.o. for cardiac cath planned later today, updated nephrology, okay to do hemodialysis after cardiac cath is completed. Continue IV heparin drip. Patient and family members updated on tentative time of 2:30 PM, all questions and concerns addressed. Primary RN updated on plan. * Quick Note - Roslyn Enciso CNP - 06/20/2024 8:45 AM EDT Patient resting in bed talking to family members. Patient denies any chest pain. Consented for cardiac cath, all questions and concerns addressed. No known allergies to iodine/iodine. Upon chart review noted that patient received Eliquis at [address] Singh updated. Recommend to place cath on hold until tomorrow, will start IV heparin drip in the interim for history of DVT/PE. Primary RN updated. * Plan of Care - Herbie Mejia RN - 06/18/2024 9:31 PM EDT POC reviewed and continued * Utilization Review - Rosina Leiva RN - 06/16/2024 7:50 PM EDT [facility] Utilization Review Notes HISTORY OF PRESENT ILLNESS:54 y.o. male patient of Lion Carlson MD with history of anemia, CAD, depression, diabetes mellitus, GERD, dyslipidemia, hypertension, MS, morbid obesity, NABOR, presented to [facility] on 06/15/2024 with groin swelling. Patient presented to the ER with lower extremityswelling with bilateral groin swelling for the last several days. He was seen by his industrial hygienist and was advised for admission for dialysis. Patient was on presented for 4 days, today he noticed bilateral swelling of the groin after drinking the fluid in the PD. 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 Patient has history of GI bleed. VITAL SIGNS: 06/15 15:24 168/77-18-74-97.2-98 percent with RA 20:45 157/78-16-87-97.3-97 percent with RA 23:52 183/95-18-91- 8/2 06:00 183/-18-93 07:33 156/70-18-70-97.8-93 percent with RA 13:34 194/94-19-82- 100 percent with 3L/NNC 13:40 182/89-31-83-106-100 percent with 3L/NC 19:26631/68-16-70-97.3-99 percent with 4L/NC EKG:none orders WEIGHT:(307 lb 15.7 oz) LABS: (Abnormal / Relevant): CBC Auto Differential Component Ref Range & Units 06:41 8/2 1 d ago 06/15 17:44 1 mo ago WBC 4.50 - 11.00 K/mcL 7.82 9.48 10.74 RBC 4.50 - 5.90 M/mcL 3.14 Low 3.30 Low 3.53 Low Hemoglobin 13.5 - 17.5 g/dL 8.1 Low 8.6 Low 9.3 Low Hematocrit 41.0 - 53.0 % 27.3 Low 29.2 Low 30.7 Low MCV 80.0 - 100.0 fL 86.9 88.5 87.0 MCH 26.0 - 34.0 pg 25.8 Low 26.1 26.3 MCHC 31.0 - 37.0 g/dL 29.7 Low 29.5 Low 30.3 Low Platelets 150 - 400 K/mcL 262 294 250 RDW - CV 11.6 - 14.8 % 18.2 High 18.1 High 18.6 High MPV 9.4 - 12.4 fL 9.3 Low 9.5 9.2 Low Neutrophils % 75.3 Phosphorus Component Ref Range & Units 06:41 8/2 1 d ago 06/15 Phosphorus 2.7 - 4.5 mg/dL 6.0 High 5.9 High ntains abnormal data Comprehensive Metabolic Panel Order: [id number] Status: Final result Visible to patient: Yes (not seen) 0 Result Notes Component Ref Range & Units 06:41 8/2 1 d ago 06/15 4 wk ago 1 mo ago Sodium 135 - 145 mmol/L 136 138 133 Low Potassium 3.5 - 5.1 mmol/L 4.2 5.0 5.5 High 5.5 High Chloride 98 - 108 mmol/L 104 103 100 Bicarbonate 21 - 32 mmol/L 21 22 19 Low Anion Gap 10 - 20 mmol/L 15 18 20 Glucose 65 - 99 mg/dL 173 High 193 High 253 High BUN 8 - 25 mg/dL 45 High 44 High 57 High Creatinine 0.50 - 1.30 mg/dL 5.33 High 5.10 High 5.32 High eGFR >=60 mL/min/1.73 m2 12 Low 13 Low CM 12 Low CM Comment: Estimated GFR was calculated using the 2020 CKD-EPI creatinine equation. BUN/Creatinine Ratio 10.0 - 20.0 8.4 Low 8.6 Low 10.7 Total Protein 6.0 - 8.0 g/dL 5.9 Low 7.2 Albumin 3.2 - 5.2 g/dL 3.1 Low 3.6 Calcium 8.4 - 10.2 mg/dL 8.6 8.9 8.9 Alkaline Phosphatase 40 - 150 U/L 158 High 190 High ntains abnormal data Component Ref Range & Units 06/15 Protime (PT) 11.8 - 14.3 seconds 15.6 High INR 0.8 - 1.1 1.2 High IMAGING: (Abnormal / Relevant): Echo 06/16: Summary 1. Mildly enlarged LV chamber size. Systolic function is moderately reduced. There is global hypokinesis. Ejection fraction by Biplane Method of Discs of 32%. 2. The left ventricular diastolic function is grade I diastolic dysfunction, consistent with low or normal atrial pressures. 3. Right ventricular size and systolic function are normal. 4. There is no hemodynamically significant valve disease. 5. There is no pulmonary hypertension, estimated right ventricle systolic pressure is 13 mmHg. 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 Previous PE in 2004 Bilateral DVT Previous GI bleed while on Eliquis S/p IVC filter which was clotted Currently was on Eliquis Due to extensive history of thromboembolic disease, will hold Eliquis for now due to the procedure tomorrow and start the patient heparin drip without bolus Continue to monitor Hypertension Dyslipidemia Continue statin, hydralazine, metoprolol and Lasix Diabetes mellitus Last A1c 5 months ago 8.6 Pt has insulin pump, Keep BG 140 and 180 Depression Continue Cymbalta and BuSpar CAD S/p TIFFANIE x 4, last 1 2018 Continue Plavix, metoprolol, Lasix MS Morbid obesity NABOR BMI 45.04 Lifestyle modification advised to the patient MEDS / ORDERS: Admit to Inpatient, vital q 4 hrs, Renal consulted, M-W-F HD, Continuous Tele, CT Abd Pelvis. Daily BMP, CBC q other day, Daily CBC , Endocrinology consulted, stated IV Lasis q 12 hrs,IV Venofer IV Daily, started Hp Drip, Renal consulted: On examination, he does not have unilateral extremity swelling or scrotal swelling that is out of proportion. Certainly PD may cause hernias and extravasation of peritoneal fluid. Although this is less likely, we will consult Dr. Arevalo for further evaluation. More likely cause for his swelling is that he has significant anasarca. I had a long discussion with patient and today regarding starting him on hemodialysis temporarily to ameliorate the anasarca. He understands and is agreeable with the plan. Will consult IR for tunneled dialysis catheter placement. Will consult case management for outpatient dialysis with me on Wednesday basis as ESRD. I expect that he can go back to peritoneal dialysis (barring no objections from surgical standpoint) in the next 3 to 4 weeks. Recommend holding Eliquis for now for tunneled dialysis catheter placement. May start heparin drip if needed HD daily while in the hospital to UF aggressively. Anasarca From end-stage kidney disease Will check 2D echo Anemia -Outpatient hemoglobin of 9.4 on 06/12 -Transferrin saturation of 11. Will continue IV iron Hypertension -In part from anasarca -Expect this to improve with UF as above -May resume metoprolol 100 mg twice a day; also on hydralazine 100 mg twice a day and Lasix 40 mg twice a day. Secondary hyperparathyroidism -Last PTH of 416 and phosphorus of 6.2. Has vitamin D deficiency Procedure HISTORY: Renal failure Date of PROCEDURE: 06/16 2:00 Procedure: Tunneled dialysis catheter FINDINGS: Right jugular tunneled HD catheter - ready for use DISPO:arrange OP HD schedule. * CDI Query - Mark Vasquez MD - 06/16/2024 7:26 PM EDT Noted lasix on medication record. Clinical Indicators: Per consult progress note: Given residual renal function will use IV Lasix. Per 06/16 Echo: EF 32 %, left ventricular diastolic function is grade I diastolic dysfunction Per LELE: PO lasix and IV lasix Please document the condition being treated with lasix in the progress note. For Example: Chronic systolic heart failure Lasix treatment for (please specify) Other (please specify) Unable to determine Thank you, Naa OLIVEIRA, RN Clinical Clammer [phone] (cell) After business hours you may contact Elvia Schmitt at [phone] (Weekdays until 10 PM and weekends 8 AM - 10 PM) * Plan of Care - Mis Neri RN - 06/16/2024 5:14 PM EDT POC reviewed Problem: Actual or potential alteration in health Goal: Absence of healthcare acquired conditions Outcome: Partially Met Goal: Knowledge of Interdisciplinary Plan of Care Outcome: Partially Met Goal: Knowledge of Enviroment Outcome: Partially Met Problem: Pain Goal: Reduced pain sensation Outcome: Partially Met Goal: Control of acute pain to acceptable level Outcome: Partially Met Goal: Able to cope with pain Outcome: Partially Met Goal: Able to achieve maximum level of physical functioning Outcome: Partially Met Goal: Able to achieve maximum level of psychosocial functioning Outcome: Partially Met * Plan of Care - Talia Beckford RN - 06/16/2024 5:37 AM EDT POC initiated documented in this [id number] History of Present illness Narrative* Pily Gloria, RD - 06/22/2024 10:37 AM EDT Nutrition Care Initial Assessment Reason for visit: Dietitian Screen: Length of Stay Nutrition Diagnosis: Increased Nutrient Needs related to ESRD as evidenced by pt on HD. Nutrition Intervention Continue Meals and Snacks Nutrition Prescription: Diet:Continue Diabetic; Consistent Carbohydrate 60g/meal Cardiac Renal Pt discharging today. If admitted in future, could consider elimination of Cardiac diet modifier given overlap with Renal diet. Nutrition Goals: Tolerate diet with PO intakes >75% most meals Start Date:06/22/2024 Expected End Date:06/28/2024 Nutrition Education: RDN met with pt and in room on this date. Reviewed labwork, discussed diet for home. reports that diet education was initiated at dialysis center; however, cut short as pt needed to be admitted. Provided comprehensive education, attached informative hand-out to AVS and reviewed with pt/ PTD. RDN to remain available in interim. Assessment: Pertinent clinical information: pt presented with groin swelling. 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 Will be discharging on HD per chart review, Nephrology is following. Additionally, pt with new dx of systolic CHF this admission, s/p heart cath on 06/21. Pt to discharge today. Past Medical History: Diagnosis Date Anemia Arthritis Coronary artery disease COVID Depression with anxiety Diabetes mellitus, type 2 (HCC) Dyspnea on exertion 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 Gracie Miller Venous embolism lungs and legs Vitamin D deficiency Past Surgical History: Procedure Laterality Date APPENDECTOMY CARDIAC CATHETERIZATION N/A 06/21/2024 Procedure: Coronary Angiogram; Surgeon: Mebla Singh MD; Location: 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; Service:Cardiovascular CARDIAC CATHETERIZATION N/A 06/21/2024 Procedure: Angioplasy w/Stent- Coronary; Surgeon: Melba Singh MD; Location: 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; Service: Cardiovascular CARDIAC CATHETERIZATION N/A 06/21/2024 Procedure: Angioplasty - Intravascular Lithotripsy - Coronary; Surgeon: Melba Singh MD; 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; Service: Cardiovascular COLONOSCOPY last was 2014, polyps, done in [place], 2 procdures CORONARY ANGIOPLASTY WITH STENT PLACEMENT has had 2 surgeries, 2019 most recent ESOPHAGOGASTRODUODENOSCOPY last was done in [place], gastic tumor, INSULIN PUMP AND GLUCOSE SENSOR IR IVC FILTER PLACEMENT 2012 for Blood clots MT INSJ INTRAPERITONEAL CATHETER W/IMG GUID N/A 06/16/2024 Procedure: VR Dialysis Cath Insert Tunnel; Surgeon: Dariusz Modi MD; Location: IR LAB;Service: Interventional Radiology MT L HRT CATH W/NJX L VENTRICULOGRAPHY IMG S&I N/A 06/21/2024 Procedure: Left Heart Cath; Surgeon: Melba Singh MD; Location: 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; Service: Cardiovascular MT LAPS INSERTION TUNNELED INTRAPERITONEAL CATHETER N/A 05/19/2024 PD cath, [facility].....Dr. Brian Arevalo TATTOO TEETH EXTRACTION TRANSFUSION BLOOD PRODUCT VASECTOMY Height: 5' 9 Current weight: 130 kg (286 lb 11.2 oz) BMI Body mass index is 42.34 kg/m . Weight hx: Wt Readings from Last 10 Encounters: 06/22/24 130 kg (286 lb 11.2 oz) 06/12/24 (!) 138.3 kg (305 lb) 05/19/24 (!) 140 kg (308 lb 10.3 oz) 05/12/24 (!) 138.3 kg (305 lb) 05/01/24 (!) 138.4 kg (305 lb 1.6 oz) 03/27/24 (!) 138.3 kg (305 lb) Current diet order: Diet: Diabetic; Consistent Carbohydrate 60g/meal Cardiac Renal Recent intake: 50-100% of recorded meals. Current intake likely meets estimated needs. Barriers to adequate p.o. intakes: No barriers identified Nutrition Related Allergies/Intolerances: No Nutrition Related Allergies noted Cultural or Yazdanism Dietary Needs :No Cultural or Yazdanism Dietary needs noted Patient/family comments: see education as above. Pt reports improvement in appetite since admission. Fluid overload contributing to suppressed appetite on admit. Difficulty Chewing or Swallowing: No Skin Integrity: Surgical Incision(s) GI Function: LBM: 06/21 Fluid Status: Generalized edema noted Physical Appearance: No signs and symptoms of malnutrition noted Labs: Recent Labs 06/22/24 0243 NA 128* K 4.0 BICARB 24 CL 92* GLUCOSE 344* BUN 23 CREATININE 3.36* ALBUMIN 2.9* Recent Labs 06/20/24 0437 06/21/24 0455 06/22/24 0243 GLUCOSE 311* 301* 344* No results found for: HGBA1C Home Medications Reviewed: Yes Scheduled Meds: apixaban 5 mg Oral BID atorvastatin 80 mg Oral Nightly busPIRone 15 mg Oral Q8H LUIS clopidogreL 75 mg Oral QAM DULoxetine 60 mg Oral QAM ergocalciferol 50,000 Units Oral Weekly furosemide 60 mg Intravenous Q12H LUIS hydrALAZINE 100 mg Oral BID metoprolol succinate 100 mg Oral BID pantoprazole 40 mg Oral Daily sacubitriL-valsartan 1 tablet Oral BID sodium chloride (PF) 10-20 mL Intravenous Once in dialysis Continuous Infusions: subcutaneous insulin pump Nutrient Depleting Medications: Loop Diuretics, Hydralazine (Chronic use), and Proton Pump Inhibitors (Chronic Use) Estimated Energy Needs Total Energy Estimated Needs: 1950 kcal/d Method for Estimating Needs: 14 kcal/kg current wt Total Protein Estimated Needs: 90-115 g/d Method for Estimating Needs: 1.2-1.5 g/kg BMI 25 Pily Gloria RDN, LD, CLC Dietitian Office: [phone] * Gracie Miller MD - 06/22/2024 10:14 AM EDT NEPHROLOGY PROGRESS [facility] Patient Name: Lorenzo Amato Admit Date: [id number] MR #: [id number] : 1970 Perpetual Assessment: Lorenzo Amato is a 54 y.o. male on hospital day 7 admitted for right leg swelling We are asked to evaluate and manage end-stage renal disease. Impression and Plan: End-stage kidney disease on peritoneal dialysis with Dr. Carline Miller. Due to diabetic nephropathy with no nephrotic range proteinuria -EDW to be established -Patient started PD training this week. During the fourth day of training patient developed sudden swelling of his right groin and leg. On examination, he does not have unilateral extremity swelling or scrotal swelling that is out of proportion. Certainly PD may cause hernias and extravasation of peritoneal fluid. More likely cause for his swelling is that he has significant anasarca. -Per chart review of surgery note on 06/18/24, no inguinal hernias, doubtful scrotal swelling is due to inguinal hernias -A CT of the abdomen pelvis shows no aortic aneurysm. IVC filter is noted in the IVC below the renal veins, no hydronephrosis. Attenuated and calcified lower IVC could be related to chronic occlusion -HD started on 06/16 due to anasarca via permacath -Hemodialysis 06/19 with the post weight of 129.4 kg. -Hemodialysis 06/21 postcardiac catheterization with a postweight of 133 kg. Bed weights wildly discrepant. I have asked nursing to obtain us standing weight prior to dischargetoday. We will make this standing weight his EDW and I will notify dialysis unit of this. We will change this to EDW as needed in the outpatient setting. -Next HD tomorrow at [facility] -PD catheter we flushed today at [facility] I have discussed with the patient and his about the severity of his anasarca, heart failure and IVC findings on CT. Suspect due to these issues he will be hemodialysis dependent for some time and may be difficult to manage his volume status in the long run on peritoneal dialysis. They expressed understanding. Social work has made arrangements for outpatient hemodialysis that here in [facility] with Dr Fletcher. While on hemodialysis he will need weekly flushing of PD catheter. If patient does resume peritoneal dialysis in the near future we will return to my care. Home therapies has been updated. Anasarca -From end-stage kidney disease with nephrotic range and systolic heart failure. -Given residual renal function will cont IV Lasix while hospitalized. At time of discharge can resume Lasix 40 mg p.o. twice daily -Echocardiogram shows EF 32 %, Left ventricular diastolic function is grade I diastolic dysfunction, no pulmonary hypertension (06/16/24) 3. Anemia -Outpatient hemoglobin of 8.3 on 06/18. Today, 8.7. -He is iron deficient and given IV iron load completed on 06/18/24. -Will need to clear with his outpatient oncologist if he can receive Micera given his neuroendocrine tumor. I discussed this with the outpatient clinical aviation manager of a [facility] and she will contact the oncologist 4. Hypertension -In part from anasarca -His blood pressure has improved with UF as above -cont IV Lasix 60 mg twice daily, Entresto twice daily, metoprolol 100 mg twice a day and hydralazine 100 mg twice a day 5. Secondary hyperparathyroidism -Last PTH of 416 and phosphorus of 6.2. -Has vitamin D deficiency. Historically noncompliant with vitamin D 6. History of bilateral DVT and PE -On Eliquis 7. Systolic heart failure with EF 32% - [facility] 06/21: S/p PCI intervention to LAD w/ cutting balloon, shockwave lithotripsy and TIFFANIE x 1; PCI D1 TIFFANIE x 2; unable to rescue jailed D1 behind LAD stent despite multiple attempts w/ residual ostial 80% stenosis. Patent stent to LCX-OM1, 100% occluded RCA w/ left to right collaterals. -On Entresto, metoprolol and hydralazine. 8. Hyponatremia due to hypervolemia and hyperglycemia -Volume management as above -Diabetes management per endocrinology 9. Poorly controlled type 2 diabetes -Endo managing during this hospitalization -Follows with endocrinology in [place] in the outpatient setting Subjective: Patient has been cleared by cardiology for discharge. We discussed the plan of outpatient nephrology care and I coordinated PD flushing at [facility] today after hospital discharge Review of Systems: ROS otherwise reviewed and negative Physical Examination: Vitals: Vitals: 06/22/24 0305 06/22/24 0652 06/22/24 0710 06/22/24 1000 BP: (!) 149/59 (!) 150/60 BP Location: Left arm Patient Position: Sitting Pulse: 81 84 97 Resp: 16 16 Temp: 97.7 F (36.5 C) 97.5 F (36.4 C) TempSrc: Oral Oral SpO2: 97% 96% Weight: (!) 139.6 kg (307 lb 12.2 oz) Height: Intake/Output last 3 shifts: Intake/Output Summary (Last 24 hours) at 06/22/2024 1014 Last data filed at 06/22/2024 1000 Gross per 24 hour Intake 240 ml Output 300 ml Net -60 ml I/O last 3 completed shifts: In: 2217.8 [I.V.:2217.8] Out: 1675 [Urine:1675] General: Age appropriate, NAD. HEENT: Normocephalic, no scleral icterus. Heart: Regular, no murmur, no rub/gallop. Lungs: Clear to ascultation, no rales/wheezing/rhonchi. Good chest wall excursion. Abdomen: Soft, nontender, no supra-public fullness or tenderness. Penile edema with mild scrotal edema Extremities: No clubbing/cyanosis, 1+ lower extremity edema. Skin: Warm, dry, no rash, no bruise, no petichiae. Neuro: No myoclonus or tremor. Psych: Normal affect. PD catheter c/d/I Permacath clean dry intact Results/Medications Reviewed 06/22/24 10:14 AM: Laboratory, Microbiology, Pathology, Radiology, Cardiology, Medications and Transcriptions reviewed Scheduled Meds: apixaban 5 mg Oral BID atorvastatin 80 mg Oral Nightly busPIRone 15 mg Oral Q8H LUIS clopidogreL 75 mg Oral QAM DULoxetine 60 mg Oral QAM ergocalciferol 50,000 Units Oral Weekly furosemide 60 mg Intravenous Q12H LUIS hydrALAZINE 100 mg Oral BID metoprolol succinate 100 mg Oral BID pantoprazole 40 mg Oral Daily sacubitriL-valsartan 1 tablet Oral BID sodium chloride (PF) 10-20 mL Intravenous Once in dialysis Continuous Infusions: subcutaneous insulin pump Results from last 7 days Lab Units 06/22/24 0243 06/21/24 0455 06/20/24 1020 WBC K/mcL 7.07 8.30 7.51 HGB g/dL 8.0* 8.7* 9.1* HCT % 26.4* 28.6* 30.6* PLT K/mcL 113* 148* 152 Results from last 7 days Lab Units 06/22/24 0243 06/21/24 0455 06/20/24 0437 06/17/24 0547 06/16/24 0641 06/15/24 1744 SODIUM mmol/L 128* 126* 132* < > 136 138 POTASSIUM mmol/L 4.0 4.5 4.0 < > 4.2 5.0 CHLORIDE mmol/L 92* 92* 95* < > 104 103 BICARB mmol/L 24 22 25 < > 21 22 BUN mg/dL 23 40* 29* < > 45* 44* CREATININE mg/dL 3.36* 5.18* 4.58* < > 5.33* 5.10* EGFR mL/min/1.73 m2 21* 12* 14* < > 12* 13* GLUCOSE mg/dL 344* 301* 311* < > 173* 193* CALCIUM mg/dL 8.1* 8.9 8.7 < > 8.6 8.9 MAGNESIUM mg/dL -- -- -- -- 1.9 2.0 PHOSPHORUS mg/dL -- -- -- -- 6.0* 5.9* < > = values in this interval not displayed. Urinalysis Potential limitations of the note: Parts of this note were created by dictation via voice recognition software (TurnStar). The completed note was reviewed for accuracy. However, there may be subtle errors that were not found during the review. If such errors are discovered, or if there are any questions or concerns regarding the recommendations/plan of care, please contact the author of the note prior to undertaking the recommendations/plan of care. * Parul Mak LISW - 06/22/2024 9:55 AM EDT Care Management Progress Note Date: 06/22/2024 Time: 9:55 AM Patient Name: Lorenzo Amato Date of : 1970 Discharge Plan: D/C Disposition: Home Community/Outpatient Referral: Other (Comment) (HD) Discharging Transportation Plan: Discharge Plan Status: Plan for discharge today. I met with patient and spouse. They have HD schedule. Deny other needs. Assessment and Background Information: * Edita Feliciano MD - 06/21/2024 3:02 PM EDT [facility] [place]GRESS NOTE Assessment and Plan Lorenzo Amato is a 54 y.o. male patient of Lion Carlson MD with history of anemia, CAD, depression, diabetes mellitus, GERD, dyslipidemia, hypertension, MS, morbid obesity, NABOR, presented to [facility] on 06/15/2024 with groin swelling. Anasarca ESRD on PD Patient started PD 4 days ago, complains of bilateral groin swelling On exam he does not have any fluid pockets or any unilateral extremity swelling. Likely this is anasarca. 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 Continue to hold Eliquis for possible left heart cath in a.m. continue IV heparin drip Hypertension Dyslipidemia Continue statin, hydralazine, metoprolol and Lasix Diabetes mellitus Last A1c 5 months ago 8.6 Pt has insulin pump, check blood glucose HLHS. Keep BG 140 and 180 Depression Continue Cymbalta and BuSpar History of coronary artery disease New diagnosis of systolic CHF Echo 06/16 with EF 32% and diastolic dysfunction. Patient denies any symptoms of shortness of breath or chest pain. Cardiology consulted continue Entresto, Toprol-XL and hydralazine Status post left heart Severe 3 vessel coronary artery disease Patent stent in LCX-OM1 with no significant ISR 100% occluded ostial RCA with left to right collaterals High grade stenosis of prox-mid LAD High grade stenosis of D1 Successful percutaneous coronary intervention of LAD with cutting balloon, shockwave lithotripsy and TIFFANIE x 1 Successful percutaneous coronary intervention of D1 with TIFFANIE x 2 IVUS imaging of LAD Unable to rescue jailed D1 behind LAD stent despite multiple attempts with residual ostial 80% stenosis Normal left heart filling pressures Continue Plavix indefinitely. Okay to resume Eliquis per cardiology MS Morbid obesity NABOR BMI 45.04 Lifestyle modification advised to the patient CPAP at nighttime. Resolved acute medical issues Discharge Planning Medically Stable for Discharge Date: 06/19 Patient requires continued hospitalization due to: heart cath Discharge Location: home Quality Measures DVT Prophylaxis: eliquis Bill Catheter: absent Code Status Full Subjective Pt seen and examined today. denies any chest pain or shortness of breath No acute events overnight Patient s/p heart cath doing well Objective BP (!) 122/56 Pulse 76 Temp 97.5 F (36.4 C) (Oral) Resp 16 Ht 5' 9 Wt (!) 139.7 kg (307 lb 15.7 oz) SpO2 97% BMI 45.48 kg/m Physical Examination General Appearance: alert; acute on chronically ill appearing; in no acute distress HEENT: Head- normocephalic; Eyes- EOMI, sclera anicteric; Throat- mucous membranes moist Cardiovascular: regular rate and rhythm; normal S1, S2; no murmurs, rubs, clicks or gallops; No edema. Groin areas without swelling and feels normal. Respiratory: lungs clear to auscultation; without wheezes, rales or rhonchi; on CPAP Abdomen: obesity, soft, non-tender, non-distended Neurological: oriented x 3; normal speech; no focal findings or movement disorder noted Musculoskeletal: no significant deformity or tenderness to palpation Skin: normal coloration Psych: normal mood and affect * Gracie Miller MD - 06/21/2024 12:02 PM EDT [facility] Patient Name: Lorenzo Amato Admit Date: [id number] MR #: [id number] : 1970 Perpetual Assessment: Lorenzo Amato is a 54 y.o. male on hospital day 6 admitted for right leg swelling We are asked to evaluate and manage end-stage renal disease. Impression and Plan: End-stage kidney disease on peritoneal dialysis with Dr. Carline Miller. Due to diabetic nephropathy with no nephrotic range proteinuria -EDW to be established -Patient started PD training this week. During the fourth day of training patient developed sudden swelling of his right groin and leg. On examination, he does not have unilateral extremity swelling or scrotal swelling that is out of proportion. Certainly PD may cause hernias and extravasation of peritoneal fluid. More likely cause for his swelling is that he has significant anasarca. -Per chart review of surgery note on 06/18/24, no inguinal hernias, doubtful scrotal swelling is due to inguinal hernias -A CT of the abdomen pelvis shows no aortic aneurysm. IVC filter is noted in the IVC below the renal veins, no hydronephrosis. Attenuated and calcified lower IVC could be related to chronic occlusion -HD started on 06/16 due to anasarca via permacath -Hemodialysis 06/19 with the post weight of 129.4 kg. - Next hemodialysis today after left heart catheterization -Flush PD catheter on I have discussed with the patient and his about the severity of his anasarca, heart failure and IVC findings on CT. Suspect due to these issues he will be hemodialysis dependent for some time and may be difficult to manage his volume status in the long run on peritoneal dialysis. They expressed understanding. Social work has made arrangements for outpatient hemodialysis that here in [facility] with Dr Fletcher. While hemodialysis he will flush his own PD catheter at home on a weekly basis. If patient does resume peritoneal dialysis in the near future we will return to my care. Home therapies hasbeen updated Anasarca -From end-stage kidney disease with nephrotic range and systolic heart failure. -Given residual renal function will cont IV Lasix while hospitalized. At time of discharge can resume Lasix 40 mg p.o. twice daily -Echocardiogram shows EF 32 %, Left ventricular diastolic function is grade I diastolic dysfunction, no pulmonary hypertension (06/16/24) 3. Anemia -Outpatient hemoglobin of 8.3 on 06/18. Today, 8.7. -He is iron deficient and given IV iron load completed on 06/18/24. -Will need to clear with his outpatient oncologist if he can receive Micera given his neuroendocrine tumor. I discussed this with the outpatient clinical aviation manager of a [facility] and she will contact the oncologist 4. Hypertension -In part from anasarca -His blood pressure has improved with UF as above -cont IV Lasix 60 mg twice daily, Entresto twice daily, metoprolol 100 mg twice a day and hydralazine 100 mg twice a day 5. Secondary hyperparathyroidism -Last PTH of 416 and phosphorus of 6.2. -Has vitamin D deficiency. Historically noncompliant with vitamin D 6. History of bilateral DVT and PE -On Eliquis 7. Systolic heart failure with EF 32% - Long discussion with patient and his about heart failure. There is concern that progressive coronary disease is contributed to the systolic heart failure. Left heart catheterization today. Patient reports he will not pursue CABG if needed -On Entresto, metoprolol and hydralazine. 8. Hyponatremia due to hypervolemia and hyperglycemia -Volume management as above -Diabetes management per endocrinology 9. Poorly controlled type 2 diabetes -Endo managing during this hospitalization -Follows with endocrinology in [place] in the outpatient setting Subjective: Multiple family members at bedside. Patient reports no events overnight. Discussed with cardiology CLAIMS ADJUSTOR the patient does not want CABG if ever needed. Review of Systems: ROS otherwise reviewed and negative Physical Examination: Vitals: Vitals: 06/20/24 1802 06/20/24 1914 06/21/24 0601 06/21/24 0717 BP: 126/71 133/71 120/73 (!) 145/73 BP Location: Patient Position: Pulse: 76 76 80 79 Resp: 18 18 18 Temp: 97.7 F (36.5 C) 97.4 F (36.3 C) 97.5 F (36.4 C) 97.3 F (36.3 C) TempSrc: Oral Oral Oral Oral SpO2: 97% 95% 98% 96% Weight: Height: Intake/Output last 3 shifts: Intake/Output Summary (Last 24 hours) at 06/21/2024 1202 Last data filed at 06/20/2024 2327 Gross per 24 hour Intake 2697.83 ml Output 1925 ml Net 772.83 ml I/O last 3 completed shifts: In: 2697.8 [P.O.:480; I.V.:2217.8] Out: 1925 [Urine:1925] General: Age appropriate, NAD. HEENT: Normocephalic, no scleral icterus. Heart: Regular, no murmur, no rub/gallop. Lungs: Clear to ascultation, no rales/wheezing/rhonchi. Good chest wall excursion. Abdomen: Soft, nontender, no supra-public fullness or tenderness. Penile edema with mild scrotal edema Extremities: No clubbing/cyanosis, 1+ lower extremity edema. Skin: Warm, dry, no rash, no bruise, no petichiae. Neuro: No myoclonus or tremor. Psych: Normal affect. PD catheter c/d/I Permacath clean dry intact Results/Medications Reviewed 06/21/24 12:02 PM: Laboratory, Microbiology, Pathology, Radiology, Cardiology, Medications and Transcriptions reviewed Scheduled Meds: atorvastatin 80 mg Oral Nightly busPIRone 15 mg Oral Q8H LUIS clopidogreL 75 mg Oral QAM DULoxetine 60 mg Oral QAM ergocalciferol 50,000 Units Oral Weekly furosemide 60 mg Intravenous Q12H LUIS hydrALAZINE 100 mg Oral BID metoprolol succinate 100 mg Oral BID pantoprazole 40 mg Oral Daily sacubitriL-valsartan 1 tablet Oral BID sodium chloride (PF) 10-20 mL Intravenous Once in dialysis Continuous Infusions: heparin infusion (weight based dosing) 11 Units/kg/hr (06/21/24 0735) heparin sodium chloride 0.9 % subcutaneous insulin pump Results from last 7 days Lab Units 06/21/24 0455 06/20/24 1020 06/20/24 0437 WBC K/mcL 8.30 7.51 7.71 HGB g/dL 8.7* 9.1* 8.2* HCT % 28.6* 30.6* 27.0* PLT K/mcL 148* 152 148* Results from last 7 days Lab Units 06/21/24 0455 06/20/24 0437 06/19/24 0446 06/17/24 0547 06/16/24 0641 06/15/24 1744 SODIUM mmol/L 126* 132* 133* < > 136 138 POTASSIUM mmol/L 4.5 4.0 4.5 < > 4.2 5.0 CHLORIDE mmol/L 92* 95* 97* < > 104 103 BICARB mmol/L 22 25 25 < > 21 22 BUN mg/dL 40* 29* 35* < > 45* 44* CREATININE mg/dL 5.18* 4.58* 5.14* < > 5.33* 5.10* EGFR mL/min/1.73 m2 12* 14* 12* < > 12* 13* GLUCOSE mg/dL 301* 311* 225* < > 173* 193* CALCIUM mg/dL 8.9 8.7 8.5 < > 8.6 8.9 MAGNESIUM mg/dL -- -- -- -- 1.9 2.0 PHOSPHORUS mg/dL -- -- -- -- 6.0* 5.9* < > = values in this interval not displayed. Urinalysis Potential limitations of the note: Parts of this note were created by dictation via voice recognition software (TurnStar). The completed note was reviewed for accuracy. However, there may be subtle errors that were not found during the review. If such errors are discovered, or if there are any questions or concerns regarding the recommendations/plan of care, please contact the author of the note prior to undertaking the recommendations/plan of care. * Lay Clark MSW LSW - 06/21/2024 10:30 AM EDT Care Management Progress Note Date: 06/21/2024 Time: 10:30 AM Patient Name: Lorenzo Amato Date of : 1970 Discharge Plan: Discharging Transportation Plan: Discharge Plan Status: Patient to have heart cath today. Not medically ready to discharge. [facility] will continue to follow. Assessment and Background Information: * Charmaine Sanderson CNP - 06/21/2024 10:25 AM EDT Images from the original note were not included. Patient ID: Patient Name: Lorenzo Amato Admit Date: 06/15/2024 MR #: [id number] : 1970 Current location: 2111 Physicians: Lion Carlson MD (Family); Ananda Gerber elio,PharmD (Referring) Reason for consult: Type 2 diabetes out of control Assessment/Plan: Dx: Type 2 diabetes, under poor control Currently taking as outpatient: Insulin Pump: Basal Rates: 0000: 6.5 units per hour IC ratio: 0000: 1:2 Sensitivity: 0000: 1: 5 Takes 15 units with each meal Current Hemoglobin A1C= No results found for: HGBA1C NOTES: 06/17: BG and labs reviewed since admission. Patient is on a Medtronic insulin pump, settings and placement reviewed by this provider. He is on a very high basal rate. He follows with endocrinology in [facility]. Na: 131; Creat: 4.83; eGFR: 13. CBC: WBC: 8.16; Hgb: 7.3; Hct: 24.5; Plt: 196. 06/18: BG and labs reviewed. Patient's BG ranging from 169-253 over last 24 hours. Currently on insulin pump. Suspended at this time. CBC: WBC: 7.67; Hgb: 8.3; Hct: 28.3; Plt: 168. Patient reports feeling well. 06/19: BG and labs reviewed. 06/20: BG reviewed over the past 24hours. Patient is utilizing an insulin pump during hospitalization. Patient is NPO this AM. Cardiology is seeing the patient for new systolic dysfunction and CAD. Agree with starting SGLT2 as an OP as that could also help with diabetes management. Nephrology is alsofollowing re: ESRD new to PD. Patient was to have a heart cath today however it was canceled as he had his Eliquis yesterday. His pump settings and history were reviewed. He does not appear to bolus in his pump often, rather allowing his pump to run automatically. It is occasionally exiting auto mode due to hyperglycemia. Usually in the evening he is bolusing due to hyperglycemia, and often doing multiple boluses to get his BG to correct. He states if his BG is good he will not bolus at a meal, his BG has not been within goal range this hospital stay almost at all, which is 140-180. 06/21: BG reviewed over the past 24 hours. Pump settings/history also reviewed. Patient did he give himself a one-time bolus of 10 units around his first meal yesterday, he had a small bolus midday andthen he had a bolus of 15 units in the evening which I presume was with his supper. Blood sugar remains elevated. He did not enter any carbs for boluses yesterday as was instructed. Patient's and other family is at the bedside. They report that his body and fender worker instructed him to take a set dose of 15 units per meal, which does not seem to be enough. He has a 1: 2 carb ratio at meals, if he would enter carbs he would get more insulin which would likely help with his hyperglycemia. I alsoadvised if that is not an option for them to count carbs, to start giving 20 units at a meal to seeif that helps with his hyperglycemia. He is getting a heart cath done today/ this afternoon. Blood Glucoses: 06/16: 173---xxx---104---183 06/17: 276---169---253---220 06/18: 199---231---251---304 06/19: 225---xxx---339---330 06/20: 307---325---xxx---290 06/21: 301 Plan: 1. Rx changes: none Continue current pump settings. 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 06/18: Resume insulin pump, take off suspend. 06/19: CPM 06/20: We discussed bolusing at every meal, entering CHO for a bolus, rather then doing so just laterin the evening and chasing his hyperglycemia all night. That can also lead to hypoglycemia if not careful. 06/21: Advised patient/ again to enter carbs for boluses as the patient does not appear to be getting enough with meals. His informs us today that he was told to take a set dose of 15 units per meal via pump versus counting carbs. I think the patient would count his carbs and enter that for a bolus he would end up getting more insulin, which is what he needs. 2. Education: Reviewed ABCs of diabetes management (respective goals in parentheses): A1C (7.0-8.0), blood pressure (<130/80), and cholesterol (LDL <100). Referral to Diabetes Education Referral to Nutrition therapy Subjective: Brief HPI: Mr. Amato is a 54-year-old male with a past medical history of type 2 diabetes mellitus,end-stage renal disease, coronary artery disease, hypertension, hyperlipidemia, mL and neuroendocrine tumor. Patient admitted on 06/15/2024 with anasarca. He was started on hemodialysis and has undergone IV diuresis. Patient reports some SOB and edema. Denies chest pain. Patient has had diabetes for 19 years. Diagnosed in 2004. Patient is currently taking insulin via insulin pump. It appears that his outpatient settings include a basal rate of 6.5 units/h. He followswith Dr. AnaMD Rahel Rodriges endocrinology. His last visit with their office was 04/26 when his hemoglobin A1c was 9.0%. Patient has taken Insulin for >5 years, started a pump in 2019. . Currently the patient is receiving insulin via pump with outpatient settings. Blood sugar levels since admission have been ranging from 104-276 mg/dL. Current monitoring regimen: home blood tests - >4 times daily with Meet[employer] sensor. Complications of diabetes include: Retinopathy: Negative Nephropathy: Positive Peripheral Neuropathy: Positive Autonomic Neuropathy: Negative Allergies: Allergies Allergen Reactions Lisinopril Cough Toradol [Ketorolac] Other (See Comments) Kidney failure Home Medications: Outpatient Medications Marked as Taking for the 06/15/24 encounter (Hospital Encounter): acetaminophen (TYLENOL) 500 MG tablet, Take 2 (two) tablets (1,000 mg total) by mouth every 6 (six)hours as needed for pain . atorvastatin (LIPITOR) 80 MG tablet, Take 1 (one) tablet (80 mg total) by mouth nightly . busPIRone (BUSPAR) 15 MG tablet, 1 (one) tablet (15 mg total) 3 (three) times a day . clopidogreL (PLAVIX) 75 mg tablet, Take 1 (one) tablet (75 mg total) by mouth every morning Start: 05/22/24. DULoxetine (CYMBALTA) 60 MG capsule, Take 1 (one) capsule (60 mg total) by mouth every morning . Eliquis 5 mg Tab, Take 1 (one) tablet (5 mg total) by mouth 2 (two) times a day Start: 05/22/24. ergocalciferol (Vitamin D2) 1,250 mcg (50,000 unit) capsule, Take 1 (one) capsule (50,000 Units total) by mouth once a week On Mondays . fluticasone propionate (FLONASE) 50 mcg/actuation nasal spray, Instill 2 (two) sprays into each nostril daily as needed for allergies . furosemide (LASIX) 40 MG tablet, Take 1 (one) tablet (40 mg total) by mouth 2 (two) times a day . gentamicin (GARAMYCIN) 0.3 % ophthalmic solution, by Other route See Admin Instructions 1 TO 2 drops topically to PERITONEAL DIALYSIS EXIT SITE once daily if needed . hydrALAZINE (APRESOLINE) 100 MG tablet, Take 1 (one) tablet (100 mg total) by mouth 2 (two) times aday . insulin lispro (AdmeLOG,HumaLOG) 100 unit/mL injection, Via insulin pump Reasons: max dose 250unitsdaily. meclizine (ANTIVERT) 25 mg tablet, Take 1 (one) tablet (25 mg total) by mouth 3 (three) times a dayas needed for nausea . metoprolol tartrate (LOPRESSOR) 100 MG tablet, Take 1 (one) tablet (100 mg total) by mouth 2 (two) times a day . octreotide ER (SandoSTATIN [place]) 30 mg injection, Inject 30 (thirty) mg into the shoulder, thigh, or buttocks every 28 days . omeprazole (PRILOSEC) 40 MG capsule, Take 1 (one) capsule (40 mg total) by mouth 2 (two) times a day . senna-docusate (SENNA-S) 8.6-50 mg, Take 1 (one) tablet by mouth 2 (two) times a day as needed for constipation . triamcinolone (KENALOG) 0.1 % cream, Apply topically 2 (two) times a day as needed . Current Medications: atorvastatin 80 mg Oral Nightly busPIRone 15 mg Oral Q8H LUIS clopidogreL 75 mg Oral QAM DULoxetine 60 mg Oral QAM ergocalciferol 50,000 Units Oral Weekly furosemide 60 mg Intravenous Q12H LUIS hydrALAZINE 100 mg Oral BID metoprolol succinate 100 mg Oral BID pantoprazole 40 mg Oral Daily sacubitriL-valsartan 1 tablet Oral BID sodium chloride (PF) 10-20 mL Intravenous Once in dialysis acetaminophen, aluminum-magnesium hydroxide-simethicone, heparin, ondansetron OR ondansetron, senna, sodium chloride 0.9%, sodium chloride 0.9 % Review of Systems: Review of Systems Constitutional: Positive for fatigue and unexpected weight change (weight gain.). Eyes: Negative for visual disturbance. Respiratory: Positive for shortness of breath. Negative for cough. Cardiovascular: Positive for leg swelling. Negative for chest pain. Gastrointestinal: Negative for abdominal pain, constipation, diarrhea, nausea and vomiting. Endocrine: Negative for polydipsia, polyphagia and polyuria. Genitourinary: Negative for frequency and urgency. Skin: Negative for wound. Neurological: Positive for weakness and numbness. Negative for headaches. Psychiatric/Behavioral: Negative for agitation and sleep disturbance. The patient is not nervous/anxious. 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 Gracie Miller Venous embolism lungs and legs Vitamin D deficiency Past Surgical History: Procedure Laterality Date APPENDECTOMY COLONOSCOPY last was 2014, polyps, done in [place], 2 procdures CORONARY ANGIOPLASTY WITH STENT PLACEMENT has had 2 surgeries, 2019 most recent ESOPHAGOGASTRODUODENOSCOPY last was done in [place], gastic tumor, INSULIN PUMP AND GLUCOSE SENSOR IR IVC FILTER PLACEMENT 2012 for Blood clots MT INSJ INTRAPERITONEAL CATHETER W/IMG GUID N/A 06/16/2024 Procedure: VR Dialysis Cath Insert Tunnel; Surgeon: Dariusz Modi MD; Location: IR LAB;Service: Interventional Radiology MT LAPS INSERTION TUNNELED INTRAPERITONEAL CATHETER N/A 05/19/2024 PD cath, ESRF.....Dr. Brian Arevalo TATTOPj TEETH EXTRACTION TRANSFUSION BLOOD PRODUCT VASECTOMY Family History Problem Relation Age of Onset Uterine cancer Mother Heart disease Father Rheum arthritis Brother Coronary artery disease Brother Social History Tobacco Use Smoking status: Never Smokeless tobacco: Former Types: Chew Vaping Use Vaping status: Never Used Substance Use Topics Alcohol use: Not Currently Comment: did drank occassionally in past Drug use: Never The following portions of the patient's history were reviewed and updated as appropriate: allergies, current medications, past family history, past medical history, past social history, past surgicalhistory and problem list. Objective: BP (!) 145/73 Pulse 79 Temp 97.3 F (36.3 C) (Oral) Resp 18 Ht 5' 9 Wt (!) 139.7 kg (307 lb 15.7 oz) SpO2 96% BMI 45.48 kg/m Wt Readings from Last 3 Encounters: 06/15/24 (!) 139.7 kg (307 lb 15.7 oz) 06/12/24 (!) 138.3 kg (305 lb) 05/19/24 (!) 140 kg (308 lb 10.3 oz) Physical Exam: Physical Exam Constitutional: Appearance: He is well-developed. HENT: Head: Normocephalic and atraumatic. Eyes: Conjunctiva/sclera: Conjunctivae normal. Pupils: Pupils are equal, round, and reactive to light. Neck: Thyroid: No thyromegaly. Cardiovascular: Rate and Rhythm: Normal rate and regular rhythm. Heart sounds: Normal heart sounds. Pulmonary: Effort: Pulmonary effort is normal. Breath sounds: Normal breath sounds. Musculoskeletal: General: Normal range of motion. Cervical back: Normal range of motion and neck supple. Skin: General: Skin is warm and dry. Neurological: Mental Status: He is alert and oriented to person, place, and time. Psychiatric: Behavior: Behavior normal. Thought Content: Thought content normal. Judgment: Judgment normal. Laboratory Review: BP (!) 145/73 Pulse 79 Temp 97.3 F (36.3 C) (Oral) Resp 18 Ht 5' 9 Wt (!) 139.7 kg (307 lb 15.7 oz) SpO2 96% BMI 45.48 kg/m No results found for: HGBA1C Glucose (mg/dL) Date Value 06/21/2024 301 (H) Creatinine (mg/dL) Date Value 06/21/2024 5.18 (H) No results found for: CHOL , TRIG , HDL , LDLCALC , LDL No results found for: TSH No results found for: FREET4 Lab Results Component Value Date WBC 8.30 06/21/2024 HGB 8.7 (L) 06/21/2024 HCT 28.6 (L) 06/21/2024 MCV 85.1 06/21/2024 PLT 148 (L) 06/21/2024 This SmartLink has not been configured with any valid records. This SmartLink has not been configured with any valid records. Laboratory and Additional Data Reviewed: Laboratory 06/21/24 10:25 AM Nephrology 06/21/24 10:25 AM Medications 06/21/24 10:25 AM Transcriptions 06/21/24 10:25 AM Thank you for this consultation, we will continue to follow this patient with you. Electronically signed by Charmaine SESAY 08/07/248:29 AM Charmaine Sanderson CNP * Edita Feliciano MD - 06/20/2024 3:06 PM EDT [facility] [place] PROGRESS NOTE Assessment and Plan Lorenzo Amato is a 54 y.o. male patient of Lion Carlson MD with history of anemia, CAD, depression, diabetes mellitus, GERD, dyslipidemia, hypertension, MS, morbid obesity, NABOR, presented to [facility] on 06/15/2024 with groin swelling. Anasarca ESRD on PD Patient started PD 4 days ago, complains of bilateral groin swelling On exam he does not have any fluid pockets or any unilateral extremity swelling. Likely this is anasarca. IR consulted to place temporary HD catheter. Discussed with Dr. Miller, plan for HD next 3 days. Follow-up CAT scan of the abdomen and pelvis, consider general surgery consult. 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 Continue to hold Eliquis for possible left heart cath in a.m. continue IV heparin drip Hypertension Dyslipidemia Continue statin, hydralazine, metoprolol and Lasix Diabetes mellitus Last A1c 5 months ago 8.6 Pt has insulin pump, check blood glucose HLHS. Keep BG 140 and 180 Depression Continue Cymbalta and BuSpar New diagnosis of systolic CHF Echo 06/16 with EF 32% and diastolic dysfunction. Patient denies any symptoms of shortness of breath or chest pain. Cardiology consulted Agree with cardiology starting patient on Entresto Spironolactone given renal function Patient benefit from left heart cath per cardiology. N.p.o. for midnight CAD S/p TIFFANIE x 4, last 2018 Continue Plavix, metoprolol, Lasix MS Morbid obesity NABOR BMI 45.04 Lifestyle modification advised to the patient CPAP at nighttime. Resolved acute medical issues Discharge Planning Medically Stable for Discharge Date: 06/19 Patient requires continued hospitalization due to: heart cath Discharge Location: home Quality Measures DVT Prophylaxis: eliquis Bill Catheter: absent Code Status Full Subjective Pt seen and examined today. denies any chest pain or shortness of breath No acute events overnight Objective BP 119/72 (BP Location: Left arm, Patient Position: Lying) Pulse 70 Temp 98.1 F (36.7 C) (Oral) Resp 17 Ht 5' 9 Wt (!) 139.7 kg (307 lb 15.7 oz) SpO2 96% BMI 45.48 kg/m Physical Examination General Appearance: alert; acute on chronically ill appearing; in no acute distress HEENT: Head- normocephalic; Eyes- EOMI, sclera anicteric; Throat- mucous membranes moist Cardiovascular: regular rate and rhythm; normal S1, S2; no murmurs, rubs, clicks or gallops; No edema. Groin areas without swelling and feels normal. Respiratory: lungs clear to auscultation; without wheezes, rales or rhonchi; on CPAP Abdomen: obesity, soft, non-tender, non-distended Neurological: oriented x 3; normal speech; no focal findings or movement disorder noted Musculoskeletal: no significant deformity or tenderness to palpation Skin: normal coloration Psych: normal mood and affect * Lay Clark MSW LSW - 06/20/2024 10:26 AM EDT Care Management Progress Note Date: 06/20/2024 Time: 10:26 AM Patient Name: Lorenzo Amato Date of : 1970 Discharge Plan: Discharging Transportation Plan: Discharge Plan Status: Patient will need to be at [facility] at 3:00pm. Will update patient. Assessment and Background Information: * Gracie Miller MD - 06/20/2024 10:26 AM EDT NEPHROLOGY PROGRESS [facility] Patient Name: Lorenzo Amato Admit Date: [id number] MR #: [id number] : 1970 Perpetual Assessment: Lorenzo Amato is a 54 y.o. male on hospital day 5 admitted for right leg swelling We are asked to evaluate and manage end-stage renal disease. Impression and Plan: End-stage kidney disease on peritoneal dialysis with Dr. Carline Miller. Due to diabetic nephropathy with no nephrotic range proteinuria -EDW to be established -Patient started PD training this week. During the fourth day of training patient developed sudden swelling of his right groin and leg. On examination, he does not have unilateral extremity swelling or scrotal swelling that is out of proportion. Certainly PD may cause hernias and extravasation of peritoneal fluid. More likely cause for his swelling is that he has significant anasarca. -Per chart review of surgery note on 06/18/24, no inguinal hernias, doubtful scrotal swelling is due to inguinal hernias -A CT of the abdomen pelvis shows no aortic aneurysm. IVC filter is noted in the IVC below the renal veins, no hydronephrosis. Attenuated and calcified lower IVC could be related to chronic occlusion -HD started on 06/16 due to anasarca via permacath -Hemodialysis 06/19 with the post weight of 129.4 kg. - Next hemodialysis treatment on Wednesday -Flush PD catheter on Lengthy discussion with the patient and his about the severity of his anasarca, heart failure and IVC findings on CT. Suspect due to these issues he will be hemodialysis dependent for some time and may be difficult to manage his volume status in the long run on peritoneal dialysis. They expressed understanding. Social work has made arrangements for outpatient hemodialysis that here in [facility] with Dr Fletcher. While hemodialysis he will flush his own PD catheter at home on a weekly basis. If patient does resume peritoneal dialysis in the near future we will return to my care. Home therapies hasbeen updated Anasarca -From end-stage kidney disease with nephrotic range and systolic heart failure. -Given residual renal function will cont IV Lasix -Echocardiogram shows EF 32 %, Left ventricular diastolic function is grade I diastolic dysfunction, no pulmonary hypertension (06/16/24) 3. Anemia -Outpatient hemoglobin of 8.3 on 06/18. Today, 8.3. -He is iron deficient and given IV iron load completed on 06/18/24. -Will need to clear with his outpatient oncologist if he can receive Micera given his neuroendocrine tumor. I discussed this with the outpatient clinical aviation manager of a [facility] and she will contact the oncologist 4. Hypertension -In part from anasarca -His blood pressure has improved with UF as above -cont metoprolol 100 mg twice a day; also on hydralazine 100 mg twice a day 5. Secondary hyperparathyroidism -Last PTH of 416 and phosphorus of 6.2. -Has vitamin D deficiency. Historically noncompliant with vitamin D 6. History of bilateral DVT and PE -On Eliquis 7. Systolic heart failure with EF 32% - Long discussion with patient and his about heart failure. There is concern that progressive coronary disease is contributed to the systolic heart failure. -On Entresto, metoprolol and hydralazine. -Left heart catheterization tomorrow. Subjective: Multiple family members at bedside. Patient reports no events overnight. Discussed with cardiology CLAIMS ADJUSTOR and plans for left heart catheterization since patient is agreeable to have this procedure done during his hospitalization. Review of Systems: ROS otherwise reviewed and negative Physical Examination: Vitals: Vitals: 06/19/24 1937 06/19/24 2353 06/20/24 0604 06/20/24 0744 BP: 122/68 (!) 156/74 132/73 122/67 BP Location: Right arm Patient Position: Lying Pulse: 77 75 72 68 Resp: 14 16 14 16 Temp: 99.4 F (37.4 C) 98.8 F (37.1 C) 98.3 F (36.8 C) 97.3 F (36.3 C) TempSrc: Oral Oral Oral Oral SpO2: 98% 97% 96% 96% Weight: Height: Intake/Output last 3 shifts: Intake/Output Summary (Last 24 hours) at 06/20/2024 1026 Last data filed at 06/19/2024 1300 Gross per 24 hour Intake 360 ml Output -- Net 360 ml I/O last 3 completed shifts: In: 720 [P.O.:720] Out: - General: Age appropriate, NAD. HEENT: Normocephalic, no scleral icterus. Heart: Regular, no murmur, no rub/gallop. Lungs: Clear to ascultation, no rales/wheezing/rhonchi. Good chest wall excursion. Abdomen: Soft, nontender, no supra-public fullness or tenderness. Penile edema with mild scrotal edema Extremities: No clubbing/cyanosis, 1+ lower extremity edema. Skin: Warm, dry, no rash, no bruise, no petichiae. Neuro: No myoclonus or tremor. Psych: Normal affect. PD catheter c/d/I Permacath clean dry intact Results/Medications Reviewed 06/20/24 10:26 AM: Laboratory, Microbiology, Pathology, Radiology, Cardiology, Medications and Transcriptions reviewed Scheduled Meds: atorvastatin 80 mg Oral Nightly busPIRone 15 mg Oral Q8H LUIS clopidogreL 75 mg Oral QAM DULoxetine 60 mg Oral QAM ergocalciferol 50,000 Units Oral Weekly furosemide 60 mg Intravenous Q12H LUIS hydrALAZINE 100 mg Oral BID metoprolol succinate 100 mg Oral BID pantoprazole 40 mg Oral Daily sacubitriL-valsartan 1 tablet Oral BID Continuous Infusions: heparin infusion (weight based dosing) heparin subcutaneous insulin pump Results from last 7 days Lab Units 06/20/24 0437 06/19/24 0446 06/18/24 0525 WBC K/mcL 7.71 7.84 7.67 HGB g/dL 8.2* 8.3* 8.3* HCT % 27.0* 27.7* 28.3* PLT K/mcL 148* 171 168 Results from last 7 days Lab Units 06/20/24 0437 06/19/24 0446 06/18/24 0525 06/17/24 0547 06/16/24 0641 06/15/24 1744 SODIUM mmol/L 132* 133* 133* < > 136 138 POTASSIUM mmol/L 4.0 4.5 4.1 < > 4.2 5.0 CHLORIDE mmol/L 95* 97* 97* < > 104 103 BICARB mmol/L 25 25 23 < > 21 22 BUN mg/dL 29* 35* 29* < > 45* 44* CREATININE mg/dL 4.58* 5.14* 4.19* < > 5.33* 5.10* EGFR mL/min/1.73 m2 14* 12* 16* < > 12* 13* GLUCOSE mg/dL 311* 225* 240* < > 173* 193* CALCIUM mg/dL 8.7 8.5 8.6 < > 8.6 8.9 MAGNESIUM mg/dL -- -- -- -- 1.9 2.0 PHOSPHORUS mg/dL -- -- -- -- 6.0* 5.9* < > = values in this interval not displayed. Urinalysis Potential limitations of the note: Parts of this note were created by dictation via voice recognition software ([employer]). The completed note was reviewed for accuracy. However, there may be subtle errors that were not found during the review. If such errors are discovered, or if there are any questions or concerns regarding the recommendations/plan of care, please contact the author of the note prior to undertaking the recommendations/plan of care. * Charmaine Sanderson CNP - 06/20/2024 8:24 AM EDT Images from the original note were not included. Patient ID: Patient Name: Lorenzo Amato Admit Date: 06/15/2024 MR #: [id number] : 1970 Current location: 2111 Physicians: Lion Carlson MD (Family); Ananda Gerber [facility],PharmD (Referring) Reason for consult: Type 2 diabetes out of control Assessment/Plan: Dx: Type 2 diabetes, under poor control Currently taking as outpatient: Insulin Pump: Basal Rates: 0000: 6.5 units per hour IC ratio: 0000: 1:2 Sensitivity: 0000: 1: 5 Takes 15 units with each meal Current Hemoglobin A1C= No results found for: HGBA1C NOTES: 06/17: BG and labs reviewed since admission. Patient is on a Medtronic insulin pump, settings and placement reviewed by this provider. He is on a very high basal rate. He follows with endocrinology in [facility]. Na: 131; Creat: 4.83; eGFR: 13. CBC: WBC: 8.16; Hgb: 7.3; Hct: 24.5; Plt: 196. 06/18: BG and labs reviewed. Patient's BG ranging from 169-253 over last 24 hours. Currently on insulin pump. Suspended at this time. CBC: WBC: 7.67; Hgb: 8.3; Hct: 28.3; Plt: 168. Patient reports feeling well. 06/19: BG and labs reviewed. 06/20: BG reviewed over the past 24hours. Patient is utilizing an insulin pump during hospitalization. Patient is NPO this AM. Cardiology is seeing the patient for new systolic dysfunction and CAD. Agree with starting SGLT2 as an OP as that could also help with diabetes management. Nephrology is alsofollowing re: ESRD new to PD. Patient was to have a heart cath today however it was canceled as he had his Eliquis yesterday. His pump settings and history were reviewed. He does not appear to bolus in his pump often, rather allowing his pump to run automatically. It is occasionally exiting auto mode due to hyperglycemia. Usually in the evening he is bolusing due to hyperglycemia, and often doing multiple boluses to get his BG to correct. He states if his BG is good he will not bolus at a meal, his BG has not been within goal range this hospital stay almost at all, which is 140-180. Blood Glucoses: 06/16: 173---xxx---104---183 06/17: 276---169---253---220 06/18: 199---231---251---304 06/19: 225---xxx---339---330 06/20: 307--- Plan: 1. Rx changes: none Continue current pump settings. 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 06/18: Resume insulin pump, take off suspend. 06/19: CPM 06/20: We discussed bolusing at every meal, entering CHO for a bolus, rather then doing so just laterin the evening and chasing his hyperglycemia all night. That can also lead to hypoglycemia if not careful. 2. Education: Reviewed ABCs of diabetes management (respective goals in parentheses): A1C (7.0-8.0), blood pressure (<130/80), and cholesterol (LDL <100). Referral to Diabetes Education Referral to Nutrition therapy Subjective: Brief HPI: Mr. Amato is a 54-year-old male with a past medical history of type 2 diabetes mellitus,end-stage renal disease, coronary artery disease, hypertension, hyperlipidemia, mL and neuroendocrine tumor. Patient admitted on 06/15/2024 with anasarca. He was started on hemodialysis and has undergone IV diuresis. Patient reports some SOB and edema. Denies chest pain. Patient has had diabetes for 19 years. Diagnosed in 2004. Patient is currently taking insulin via insulin pump. It appears that his outpatient settings include a basal rate of 6.5 units/h. He followswith [facility] endocrinology. His last visit with their office was 04/26 when his hemoglobin A1c was 9.0%. Patient has taken Insulin for >5 years, started a pump in 2019. . Currently the patient is receiving insulin via pump with outpatient settings. Blood sugar levels since admission have been ranging from 104-276 mg/dL. Current monitoring regimen: home blood tests - >4 times daily with [employer] sensor. Complications of diabetes include: Retinopathy: Negative Nephropathy: Positive Peripheral Neuropathy: Positive Autonomic Neuropathy: Negative Allergies: Allergies Allergen Reactions Lisinopril Cough Toradol [Ketorolac] Other (See Comments) Kidney failure Home Medications: Outpatient Medications Marked as Taking for the 06/15/24 encounter (Hospital Encounter): acetaminophen (TYLENOL) 500 MG tablet, Take 2 (two) tablets (1,000 mg total) by mouth every 6 (six)hours as needed for pain . atorvastatin (LIPITOR) 80 MG tablet, Take 1 (one) tablet (80 mg total) by mouth nightly . busPIRone (BUSPAR) 15 MG tablet, 1 (one) tablet (15 mg total) 3 (three) times a day . clopidogreL (PLAVIX) 75 mg tablet, Take 1 (one) tablet (75 mg total) by mouth every morning Start: 05/22/24. DULoxetine (CYMBALTA) 60 MG capsule, Take 1 (one) capsule (60 mg total) by mouth every morning . Eliquis 5 mg Tab, Take 1 (one) tablet (5 mg total) by mouth 2 (two) times a day Start: 05/22/24. ergocalciferol (Vitamin D2) 1,250 mcg (50,000 unit) capsule, Take 1 (one) capsule (50,000 Units total) by mouth once a week On Mondays . fluticasone propionate (FLONASE) 50 mcg/actuation nasal spray, Instill 2 (two) sprays into each nostril daily as needed for allergies . furosemide (LASIX) 40 MG tablet, Take 1 (one) tablet (40 mg total) by mouth 2 (two) times a day . gentamicin (GARAMYCIN) 0.3 % ophthalmic solution, by Other route See Admin Instructions 1 TO 2 drops topically to PERITONEAL DIALYSIS EXIT SITE once daily if needed . hydrALAZINE (APRESOLINE) 100 MG tablet, Take 1 (one) tablet (100 mg total) by mouth 2 (two) times aday . insulin lispro (AdmeLOG,HumaLOG) 100 unit/mL injection, Via insulin pump Reasons: max dose 250unitsdaily. meclizine (ANTIVERT) 25 mg tablet, Take 1 (one) tablet (25 mg total) by mouth 3 (three) times a dayas needed for nausea . metoprolol tartrate (LOPRESSOR) 100 MG tablet, Take 1 (one) tablet (100 mg total) by mouth 2 (two) times a day . octreotide ER (SandoSTATIN [place]) 30 mg injection, Inject 30 (thirty) mg into the shoulder, thigh, or buttocks every 28 days . omeprazole (PRILOSEC) 40 MG capsule, Take 1 (one) capsule (40 mg total) by mouth 2 (two) times a day . senna-docusate (SENNA-S) 8.6-50 mg, Take 1 (one) tablet by mouth 2 (two) times a day as needed for constipation . triamcinolone (KENALOG) 0.1 % cream, Apply topically 2 (two) times a day as needed . Current Medications: apixaban 5 mg Oral BID atorvastatin 80 mg Oral Nightly busPIRone 15 mg Oral Q8H LUIS clopidogreL 75 mg Oral QAM DULoxetine 60 mg Oral QAM ergocalciferol 50,000 Units Oral Weekly furosemide 60 mg Intravenous Q12H LUIS hydrALAZINE 100 mg Oral BID metoprolol succinate 100 mg Oral BID pantoprazole 40 mg Oral Daily sacubitriL-valsartan 1 tablet Oral BID acetaminophen, aluminum-magnesium hydroxide-simethicone, ondansetron OR ondansetron, senna Review of Systems: Review of Systems Constitutional: Positive for fatigue and unexpected weight change (weight gain.). Eyes: Negative for visual disturbance. Respiratory: Positive for shortness of breath. Negative for cough. Cardiovascular: Positive for leg swelling. Negative for chest pain. Gastrointestinal: Negative for abdominal pain, constipation, diarrhea, nausea and vomiting. Endocrine: Negative for polydipsia, polyphagia and polyuria. Genitourinary: Negative for frequency and urgency. Skin: Negative for wound. Neurological: Positive for weakness and numbness. Negative for headaches. Psychiatric/Behavioral: Negative for agitation and sleep disturbance. The patient is not nervous/anxious. 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 Gracie Miller Venous embolism lungs and legs Vitamin D deficiency Past Surgical History: Procedure Laterality Date APPENDECTOMY COLONOSCOPY last was 2014, polyps, done in [place], 2 procdures CORONARY ANGIOPLASTY WITH STENT PLACEMENT has had 2 surgeries, 2019 most recent ESOPHAGOGASTRODUODENOSCOPY last was done in [place], gastic tumor, INSULIN PUMP AND GLUCOSE SENSOR IR IVC FILTER PLACEMENT 2012 for Blood clots MT INSJ INTRAPERITONEAL CATHETER W/IMG GUID N/A 06/16/2024 Procedure: VR Dialysis Cath Insert Tunnel; Surgeon: Dariusz Modi MD; Location: IR LAB;Service: Interventional Radiology MT LAPS INSERTION TUNNELED INTRAPERITONEAL CATHETER N/A 05/19/2024 PD cath, [facility].....Dr. Brian Arevalo TATTOO TEETH EXTRACTION TRANSFUSION BLOOD PRODUCT VASECTOMY Family History Problem Relation Age of Onset Uterine cancer Mother Heart disease Father Rheum arthritis Brother Coronary artery disease Brother Social History Tobacco Use Smoking status: Never Smokeless tobacco: Former Types: Chew Vaping Use Vaping status: Never Used Substance Use Topics Alcohol use: Not Currently Comment: did drank occassionally in past Drug use: Never The following portions of the patient's history were reviewed and updated as appropriate: allergies, current medications, past family history, past medical history, past social history, past surgicalhistory and problem list. Objective: BP 122/67 (BP Location: Right arm, Patient Position: Lying) Pulse 68 Temp 97.3 F (36.3 C) (Oral) Resp 16 Ht 5' 9 Wt (!) 139.7 kg (307 lb 15.7 oz) SpO2 96% BMI 45.48 kg/m Wt Readings from Last 3 Encounters: 06/15/24 (!) 139.7 kg (307 lb 15.7 oz) 06/12/24 (!) 138.3 kg (305 lb) 05/19/24 (!) 140 kg (308 lb 10.3 oz) Physical Exam: Physical Exam Constitutional: Appearance: He is well-developed. HENT: Head: Normocephalic and atraumatic. Eyes: Conjunctiva/sclera: Conjunctivae normal. Pupils: Pupils are equal, round, and reactive to light. Neck: Thyroid: No thyromegaly. Cardiovascular: Rate and Rhythm: Normal rate and regular rhythm. Heart sounds: Normal heart sounds. Pulmonary: Effort: Pulmonary effort is normal. Breath sounds: Normal breath sounds. Musculoskeletal: General: Normal range of motion. Cervical back: Normal range of motion and neck supple. Skin: General: Skin is warm and dry. Neurological: Mental Status: He is alert and oriented to person, place, and time. Psychiatric: Behavior: Behavior normal. Thought Content: Thought content normal. Judgment: Judgment normal. Laboratory Review: BP 122/67 (BP Location: Right arm, Patient Position: Lying) Pulse 68 Temp 97.3 F (36.3 C) (Oral) Resp 16 Ht 5' 9 Wt (!) 139.7 kg (307 lb 15.7 oz) SpO2 96% BMI 45.48 kg/m No results found for: HGBA1C Glucose (mg/dL) Date Value 06/20/2024 311 (H) Creatinine (mg/dL) Date Value 06/20/2024 4.58 (H) No results found for: CHOL , TRIG , HDL , LDLCALC , LDL No results found for: TSH No results found for: FREET4 Lab Results Component Value Date WBC 7.71 06/20/2024 HGB 8.2 (L) 06/20/2024 HCT 27.0 (L) 06/20/2024 MCV 85.7 06/20/2024 PLT 148 (L) 06/20/2024 This SmartLink has not been configured with any valid records. This SmartLink has not been configured with any valid records. Laboratory and Additional Data Reviewed: Laboratory 06/20/24 8:24 AM Nephrology 06/20/24 8:24 AM Medications 06/20/24 8:24 AM Transcriptions 06/20/24 8:24 AM Thank you for this consultation, we will continue to follow this patient with you. Electronically signed by Charmaine SESAY 248:29 AM Charmaine Sanderson CNP * Gracie Miller MD - 06/19/2024 2:35 PM EDT NEPHROLOGY PROGRESS NOTE [facility] Patient Name: Lorenzo Amato Admit Date: [id number] MR #: [id number] : 1970 Perpetual Assessment: Lorenzo Amato is a 54 y.o. male on hospital day 4 admitted for right leg swelling We are asked to evaluate and manage end-stage renal disease. Impression and Plan: End-stage kidney disease on peritoneal dialysis with Dr. Carline Miller. Due to diabetic nephropathy with no nephrotic range proteinuria -EDW to be established -Patient started PD training this week. During the fourth day of training patient developed sudden swelling of his right groin and leg. On examination, he does not have unilateral extremity swelling or scrotal swelling that is out of proportion. Certainly PD may cause hernias and extravasation of peritoneal fluid. More likely cause for his swelling is that he has significant anasarca. -Per chart review of surgery note on 06/18/24, no inguinal hernias, doubtful scrotal swelling is due to inguinal hernias -A CT of the abdomen pelvis shows no aortic aneurysm. IVC filter is noted in the IVC below the renal veins, no hydronephrosis. Attenuated and calcified lower IVC could be related to chronic occlusion -HD started on 06/16 due to anasarca via permacath - Seen and examined on HD. Pre weight 129.4 kg. Plan is for UF 3L. - Next hemodialysis treatment on Wednesday Lengthy discussion with the patient and his about the severity of his anasarca, heart failure and IVC findings on CT. Suspect due to these issues he will be hemodialysis dependent for some time and may be difficult to manage his volume status in the long run on peritoneal dialysis. They expressed understanding. Social work has made arrangements for outpatient hemodialysis that here in [facility] [place] with Dr Fletcher. While hemodialysis he will flush his own PD catheter at home on a weekly basis. If patient does resume peritoneal dialysis in the near future we will return to my care. Home therapies hasbeen updated Anasarca -From end-stage kidney disease with nephrotic range and systolic heart failure. -Given residual renal function will cont IV Lasix -Echocardiogram shows EF 32 %, Left ventricular diastolic function is grade I diastolic dysfunction, no pulmonary hypertension (06/16/24) 3. Anemia -Outpatient hemoglobin of 8.3 on 06/18. Today, 8.3. -He is iron deficient and given IV iron load completed on 06/18/24. -Will need to clear with his outpatient oncologist if he can receive Micera given his neuroendocrine tumor. I discussed this with the outpatient clinical aviation manager of a [facility] and she will contact the oncologist 4. Hypertension -In part from anasarca -His blood pressure has improved with UF as above -cont metoprolol 100 mg twice a day; also on hydralazine 100 mg twice a day 5. Secondary hyperparathyroidism -Last PTH of 416 and phosphorus of 6.2. -Has vitamin D deficiency. Historically noncompliant with vitamin D 6. History of bilateral DVT and PE -Eliquis started 06/18/24. 7. Systolic heart failure with EF 32% - Long discussion with patient and his about heart failure. There is concern that progressive coronary disease is contributed to the systolic heart failure. -Okay to start goal-directed therapy from nephrology standpoint - Cardiology has been consulted for evaluation and treatment. Subjective: Patient feels much better since HD initiation. Seen on HD and later discussed with his the echo findings. Discussed with hospitalist the echo findings and need for cardiology consult. Review of Systems: ROS otherwise reviewed and negative Physical Examination: Vitals: Vitals: 06/18/24 2305 06/19/24 0719 06/19/24 0810 06/19/24 1245 BP: (!) 163/84 (!) 149/68 133/71 BP Location: Patient Position: Pulse: 75 75 81 Resp: 16 18 18 Temp: 97.4 F (36.3 C) 97.8 F (36.6 C) 98 F (36.7 C) TempSrc: Oral Oral Oral SpO2: 98% 96% 98% Weight: Height: Intake/Output last 3 shifts:No intake or output data in the 24 hours ending 06/19/24 1435 I/O last 3 completed shifts: In: 572.3 [IV Piggyback:572.3] Out: 450 [Urine:450] General: Age appropriate, NAD. HEENT: Normocephalic, no scleral icterus. Heart: Regular, no murmur, no rub/gallop. Lungs: Clear to ascultation, no rales/wheezing/rhonchi. Good chest wall excursion. Abdomen: Soft, nontender, no supra-public fullness or tenderness. Penile edema with mild scrotal edema Extremities: No clubbing/cyanosis, 2+ lower extremity edema. Skin: Warm, dry, no rash, no bruise, no petichiae. Neuro: No myoclonus or tremor. Psych: Normal affect. PD catheter c/d/I Permacath clean dry intact Results/Medications Reviewed 06/19/24 2:35 PM: Laboratory, Microbiology, Pathology, Radiology, Cardiology, Medications and Transcriptions reviewed Scheduled Meds: apixaban 5 mg Oral BID atorvastatin 80 mg Oral Nightly busPIRone 15 mg Oral Q8H LUIS clopidogreL 75 mg Oral QAM DULoxetine 60 mg Oral QAM ergocalciferol 50,000 Units Oral Weekly furosemide 60 mg Intravenous Q12H LUIS hydrALAZINE 100 mg Oral BID metoprolol succinate 100 mg Oral BID pantoprazole 40 mg Oral Daily sacubitriL-valsartan 1 tablet Oral BID sodium chloride (PF) 10-20 mL Intravenous Once in dialysis sodium chloride (PF) 10-20 mL Intravenous Once in dialysis Continuous Infusions: sodium chloride 0.9 % subcutaneous insulin pump Results from last 7 days Lab Units 06/19/24 0446 06/18/24 0525 06/17/24 0547 WBC K/mcL 7.84 7.67 8.16 HGB g/dL 8.3* 8.3* 7.3* HCT % 27.7* 28.3* 24.5* PLT K/mcL 171 168 196 Results from last 7 days Lab Units 06/19/24 0446 06/18/24 0525 06/17/24 0547 06/16/24 0641 06/15/24 1744 SODIUM mmol/L 133* 133* 131* 136 138 POTASSIUM mmol/L 4.5 4.1 4.2 4.2 5.0 CHLORIDE mmol/L 97* 97* 98 104 103 BICARB mmol/L 25 23 22 21 22 BUN mg/dL 35* 29* 36* 45* 44* CREATININE mg/dL 5.14* 4.19* 4.83* 5.33* 5.10* EGFR mL/min/1.73 m2 12* 16* 13* 12* 13* GLUCOSE mg/dL 225* 240* 276* 173* 193* CALCIUM mg/dL 8.5 8.6 8.2* 8.6 8.9 MAGNESIUM mg/dL -- -- -- 1.9 2.0 PHOSPHORUS mg/dL -- -- -- 6.0* 5.9* Urinalysis Potential limitations of the note: Parts of this note were created by dictation via voice recognition software ([employer]). The completed note was reviewed for accuracy. However, there may be subtle errors that were not found during the review. If such errors are discovered, or if there are any questions or concerns regarding the recommendations/plan of care, please contact the author of the note prior to undertaking the recommendations/plan of care. * Shabana Dobbs CNP - 06/19/2024 12:05 PM EDT [facility] Patient Name: Lorenzo Amato Admit Date: [id number] MR #: [id number] : 1970 Perpetual Assessment: Lorenzo Amato is a 54 y.o. male on hospital day 4 admitted for right leg swelling We are asked to evaluate and manage end-stage renal disease. Impression and Plan: End-stage kidney disease on peritoneal dialysis with Dr. Carline Miller. Due to diabetic nephropathy with no nephrotic range proteinuria -EDW to be established -Patient started PD training this week. During the fourth day of training patient developed sudden swelling of his right groin and leg. On examination, he does not have unilateral extremity swelling or scrotal swelling that is out of proportion. Certainly PD may cause hernias and extravasation of peritoneal fluid. More likely cause for his swelling is that he has significant anasarca. -Per chart review of surgery note on 06/18/24, no inguinal hernias, doubtful scrotal swelling is due to inguinal hernias -A CT of the abdomen pelvis shows no aortic aneurysm. IVC filter is noted in the IVC below the renal veins, no hydronephrosis HD started on 06/16 due to anasarca Once volume status improves he can go back to peritoneal dialysis. -Access: permacath right internal jugular on 06/16/24 -HD on 06/17 with UF 2.5 kg and post HD weight of 132.5 kg -Seen and examined on HD. Pre weight 132.4 kg. Plan is for UF 3L. -Next Hemodialysis plan for Wednesday. -Home therapy updated about the above plan. Social work is consulted to make arrangements for outpatient dialysis at [facility] due to where patient lives. Once he is back on peritoneal dialysis he will resume care under Dr. Miller's direction. While on HD he will flush his own PDcatheter at home on a weekly basis Anasarca -From end-stage kidney disease with nephrotic range and systolic heart failure. -Given residual renal function will use IV Lasix -24 hr urine output 900 mL -Echocardiogram shows EF 32 %, Left ventricular diastolic function is grade I diastolic dysfunction, no pulmonary hypertension (06/16/24) 3. Anemia -Outpatient hemoglobin of 8.3 on 06/18. Today, 8.3. -He is iron deficient and given IV iron load completed on 06/18/24. -Will need to clear with his outpatient oncologist if he can receive Micera given his neuroendocrine tumor 4. Hypertension -In part from anasarca -His blood pressure has improved with UF as above -cont metoprolol 100 mg twice a day; also on hydralazine 100 mg twice a day 5. Secondary hyperparathyroidism -Last PTH of 416 and phosphorus of 6.2. -Has vitamin D deficiency. Historically noncompliant with vitamin D 6. History of bilateral DVT and PE -Eliquis started 06/18/24. 7. Systolic heart failure with EF 32% - Long discussion with patient and his about heart failure. - Cardiology has been consulted for evaluation and treatment. Subjective: Patient feels much better since HD initiation. Seen on HD and later discussed with his the echo findings. Review of Systems: ROS otherwise reviewed and negative Physical Examination: Vitals: Vitals: 06/18/24 2021 06/18/24 2118 06/18/24 2305 06/19/24 0719 BP: (!) 167/82 (!) 163/84 (!) 149/68 BP Location: Patient Position: Pulse: 70 75 75 Resp: 14 16 18 Temp: 97.4 F (36.3 C) 97.8 F (36.6 C) TempSrc: Oral Oral SpO2: 99% 98% 96% Weight: Height: Intake/Output last 3 shifts:No intake or output data in the 24 hours ending 06/19/24 1219 I/O last 3 completed shifts: In: 572.3 [IV Piggyback:572.3] Out: 450 [Urine:450] General: Age appropriate, NAD. HEENT: Normocephalic, no scleral icterus. Heart: Regular, no murmur, no rub/gallop. Lungs: Clear to ascultation, no rales/wheezing/rhonchi. Good chest wall excursion. Abdomen: Soft, nontender, no supra-public fullness or tenderness. Penile edema with mild scrotal edema Extremities: No clubbing/cyanosis, 2+ lower extremity edema. Skin: Warm, dry, no rash, no bruise, no petichiae. Neuro: No myoclonus or tremor. Psych: Normal affect. PD catheter c/d/I Results/Medications Reviewed 06/19/24 12:19 PM: Laboratory, Microbiology, Pathology, Radiology, Cardiology, Medications and Transcriptions reviewed Scheduled Meds: apixaban 5 mg Oral BID atorvastatin 80 mg Oral Nightly busPIRone 15 mg Oral Q8H LUIS clopidogreL 75 mg Oral QAM DULoxetine 60 mg Oral QAM ergocalciferol 50,000 Units Oral Weekly furosemide 60 mg Intravenous Q12H LUIS hydrALAZINE 100 mg Oral BID metoprolol tartrate 100 mg Oral BID pantoprazole 40 mg Oral Daily sodium chloride (PF) 10-20 mL Intravenous Once in dialysis sodium chloride (PF) 10-20 mL Intravenous Once in dialysis Continuous Infusions: sodium chloride 0.9 % subcutaneous insulin pump Results from last 7 days Lab Units 06/19/24 0446 06/18/24 0525 06/17/24 0547 WBC K/mcL 7.84 7.67 8.16 HGB g/dL 8.3* 8.3* 7.3* HCT % 27.7* 28.3* 24.5* PLT K/mcL 171 168 196 Results from last 7 days Lab Units 06/19/24 0446 06/18/24 0525 06/17/24 0547 06/16/24 0641 06/15/24 1744 SODIUM mmol/L 133* 133* 131* 136 138 POTASSIUM mmol/L 4.5 4.1 4.2 4.2 5.0 CHLORIDE mmol/L 97* 97* 98 104 103 BICARB mmol/L 25 23 22 21 22 BUN mg/dL 35* 29* 36* 45* 44* CREATININE mg/dL 5.14* 4.19* 4.83* 5.33* 5.10* EGFR mL/min/1.73 m2 12* 16* 13* 12* 13* GLUCOSE mg/dL 225* 240* 276* 173* 193* CALCIUM mg/dL 8.5 8.6 8.2* 8.6 8.9 MAGNESIUM mg/dL -- -- -- 1.9 2.0 PHOSPHORUS mg/dL -- -- -- 6.0* 5.9* Urinalysis Potential limitations of the note: Parts of this note were created by dictation via voice recognition software (TurnStar). The completed note was reviewed for accuracy. However, there may be subtle errors that were not found during the review. If such errors are discovered, or if there are any questions or concerns regarding the recommendations/plan of care, please contact the author of the note prior to undertaking the recommendations/plan of care. * Lay Clark MSW LSW - 06/19/2024 11:14 AM EDT Care Management Progress Note Date: 06/19/2024 Time: 11:15 AM Patient Name: Lorenzo Amato Date of : 1970 Discharge Plan: Discharging Transportation Plan: Discharge Plan Status: Patient received OP HD chair time at [facility] at 4:00pm under Dr. Fletcher. Assessment and Background Information: * Edita Feliciano MD - 06/19/2024 10:16 AM EDT [facility] PROGRESS NOTE Assessment and Plan Lorenzo Amato is a 54 y.o. male patient of Lion Carlson MD with history of anemia, CAD, depression, diabetes mellitus, GERD, dyslipidemia, hypertension, MS, morbid obesity, NABOR, presented to [facility] on 06/15/2024 with groin swelling. Anasarca ESRD on PD Patient started PD 4 days ago, complains of bilateral groin swelling On exam he does not have any fluid pockets or any unilateral extremity swelling. CT abdomen pelvis results reviewed, patient noted IVC filter in the IVC below the renal veins, lower part of IVC attenuated and calcified likely secondary to chronic occlusion Patient evaluated by general surgery. No inguinal hernias identified. Patient was started on hemodialysis on 06/16. 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 Was on heparin drip for the procedure, switch back to home Eliquis. Hypertension Dyslipidemia Continue statin, hydralazine, metoprolol and Lasix Diabetes mellitus Last A1c 5 months ago 8.6 Pt has insulin pump, check blood glucose HLHS. Keep BG 140 and 180 Depression Continue Cymbalta and BuSpar New diagnosis of systolic CHF Acute on chronic systolic CHF exacerbation Echo 06/16 with EF 32% and diastolic dysfunction. Patient denies any symptoms of shortness of breath or chest pain. Cardiology consulted Agree with cardiology starting patient on Entresto Spironolactone given renal function Patient benefit from left heart cath per cardiology CAD S/p TIFFANIE x 4, last 2018 Continue Plavix, metoprolol, Lasix MS Morbid obesity NABOR BMI 45.04 Lifestyle modification advised to the patient CPAP at nighttime. Resolved acute medical issues Discharge Planning Medically Stable for Discharge Date: 06/19 Patient requires continued hospitalization due to: heart cath Discharge Location: home Quality Measures DVT Prophylaxis: eliquis Bill Catheter: absent Code Status Full Subjective Pt seen and examined today. denies any chest pain or shortness of breath Objective BP (!) 149/68 Pulse 75 Temp 97.8 F (36.6 C) (Oral) Resp 18 Ht 5' 9 Wt (!) 139.7 kg (307 lb 15.7 oz) SpO2 96% BMI 45.48 kg/m Physical Examination General Appearance: alert; acute on chronically ill appearing; in no acute distress HEENT: Head- normocephalic; Eyes- EOMI, sclera anicteric; Throat- mucous membranes moist Cardiovascular: regular rate and rhythm; normal S1, S2; no murmurs, rubs, clicks or gallops; No edema. Groin areas without swelling and feels normal. Respiratory: lungs clear to auscultation; without wheezes, rales or rhonchi; on CPAP Abdomen: obesity, soft, non-tender, non-distended Neurological: oriented x 3; normal speech; no focal findings or movement disorder noted Musculoskeletal: no significant deformity or tenderness to palpation Skin: normal coloration Psych: normal mood and affect * Alyson Patricia CNP - 06/19/2024 7:50 AM EDT Patient ID: Patient Name: Lorenzo Amato Admit Date: 06/15/2024 MR #: [id number] : 1970 Current location: [facility] Physicians: Lion Carlson MD (Family); Ananda Gerber [facility],PharmD (Referring) Reason for consult: Type 2 diabetes out of control Assessment/Plan: Dx: Type 2 diabetes, under poor control Currently taking as outpatient: Insulin Pump: Basal Rates: 0000: 6.5 units per hour IC ratio: 0000: 1:2 Sensitivity: 0000: 1: 5 Takes 15 units with each meal Current Hemoglobin A1C= No results found for: HGBA1C NOTES: 06/17: BG and labs reviewed since admission. Patient is on a [employer] insulin pump, settings and placement reviewed by this provider. He is on a very high basal rate. He follows with endocrinology in [facility]. Na: 131; Creat: 4.83; eGFR: 13. CBC: WBC: 8.16; Hgb: 7.3; Hct: 24.5; Plt: 196. 06/18: BG and labs reviewed. Patient's BG ranging from 169-253 over last 24 hours. Currently on insulin pump. Suspended at this time. CBC: WBC: 7.67; Hgb: 8.3; Hct: 28.3; Plt: 168. Patient reports feeling well. 06/19: BG and labs reviewed. Blood Glucoses: 06/16: 173---xxx---104---183 06/17: 276---169---253---220 06/18: 199--- 06/19: 225--- Plan: 1. Rx changes: none Continue current pump settings. 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 06/18: Resume insulin pump, take off suspend. 06/19: CPM 2. Education: Reviewed ABCs of diabetes management (respective goals in parentheses): A1C (7.0-8.0), blood pressure (<130/80), and cholesterol (LDL <100). Referral to Diabetes Education Referral to Nutrition therapy Subjective: Brief HPI: Mr. Amato is a 54-year-old male with a past medical history of type 2 diabetes mellitus,end-stage renal disease, coronary artery disease, hypertension, hyperlipidemia, mL and neuroendocrine tumor. Patient admitted on 06/15/2024 with anasarca. He was started on hemodialysis and has undergone IV diuresis. Patient reports some SOB and edema. Denies chest pain. Patient has had diabetes for 19 years. Diagnosed in 2004. Patient is currently taking insulin via insulin pump. It appears that his outpatient settings include a basal rate of 6.5 units/h. He followswith Dr. Hubert Nowak MD [facility] endocrinology. His last visit with their office was 04/26 when his hemoglobin A1c was 9.0%. Patient has taken Insulin for >5 years, started a pump in 2019. . Currently the patient is receiving insulin via pump with outpatient settings. Blood sugar levels since admission have been ranging from 104-276 mg/dL. Current monitoring regimen: home blood tests - >4 times daily with [employer] sensor. Complications of diabetes include: Retinopathy: Negative Nephropathy: Positive Peripheral Neuropathy: Positive Autonomic Neuropathy: Negative Allergies: Allergies Allergen Reactions Lisinopril Cough Toradol [Ketorolac] Other (See Comments) Kidney failure Home Medications: Outpatient Medications Marked as Taking for the 06/15/24 encounter (Hospital Encounter): acetaminophen (TYLENOL) 500 MG tablet, Take 2 (two) tablets (1,000 mg total) by mouth every 6 (six)hours as needed for pain . atorvastatin (LIPITOR) 80 MG tablet, Take 1 (one) tablet (80 mg total) by mouth nightly . busPIRone (BUSPAR) 15 MG tablet, 1 (one) tablet (15 mg total) 3 (three) times a day . clopidogreL (PLAVIX) 75 mg tablet, Take 1 (one) tablet (75 mg total) by mouth every morning Start: 05/22/24. DULoxetine (CYMBALTA) 60 MG capsule, Take 1 (one) capsule (60 mg total) by mouth every morning . Eliquis 5 mg Tab, Take 1 (one) tablet (5 mg total) by mouth 2 (two) times a day Start: 05/22/24. ergocalciferol (Vitamin D2) 1,250 mcg (50,000 unit) capsule, Take 1 (one) capsule (50,000 Units total) by mouth once a week On Mondays . fluticasone propionate (FLONASE) 50 mcg/actuation nasal spray, Instill 2 (two) sprays into each nostril daily as needed for allergies . furosemide (LASIX) 40 MG tablet, Take 1 (one) tablet (40 mg total) by mouth 2 (two) times a day . gentamicin (GARAMYCIN) 0.3 % ophthalmic solution, by Other route See Admin Instructions 1 TO 2 drops topically to PERITONEAL DIALYSIS EXIT SITE once daily if needed . hydrALAZINE (APRESOLINE) 100 MG tablet, Take 1 (one) tablet (100 mg total) by mouth 2 (two) times aday . insulin lispro (AdmeLOG,HumaLOG) 100 unit/mL injection, Via insulin pump Reasons: max dose 250unitsdaily. meclizine (ANTIVERT) 25 mg tablet, Take 1 (one) tablet (25 mg total) by mouth 3 (three) times a dayas needed for nausea . metoprolol tartrate (LOPRESSOR) 100 MG tablet, Take 1 (one) tablet (100 mg total) by mouth 2 (two) times a day . octreotide ER (SandoSTATIN [place]) 30 mg injection, Inject 30 (thirty) mg into the shoulder, thigh, or buttocks every 28 days . omeprazole (PRILOSEC) 40 MG capsule, Take 1 (one) capsule (40 mg total) by mouth 2 (two) times a day . senna-docusate (SENNA-S) 8.6-50 mg, Take 1 (one) tablet by mouth 2 (two) times a day as needed for constipation . triamcinolone (KENALOG) 0.1 % cream, Apply topically 2 (two) times a day as needed . Current Medications: apixaban 5 mg Oral BID atorvastatin 80 mg Oral Nightly busPIRone 15 mg Oral Q8H LUIS clopidogreL 75 mg Oral QAM DULoxetine 60 mg Oral QAM ergocalciferol 50,000 Units Oral Weekly furosemide 60 mg Intravenous Q12H LUIS hydrALAZINE 100 mg Oral BID metoprolol tartrate 100 mg Oral BID pantoprazole 40 mg Oral Daily sodium chloride (PF) 10-20 mL Intravenous Once in dialysis sodium chloride (PF) 10-20 mL Intravenous Once in dialysis acetaminophen, aluminum-magnesium hydroxide-simethicone, ondansetron OR ondansetron, senna, sodium chloride 0.9%, sodium chloride 0.9%, sodium chloride 0.9%, sodium chloride 0.9 % Review of Systems: Review of Systems Constitutional: Positive for fatigue and unexpected weight change (weight gain.). Eyes: Negative for visual disturbance. Respiratory: Positive for shortness of breath. Negative for cough. Cardiovascular: Positive for leg swelling. Negative for chest pain. Gastrointestinal: Negative for abdominal pain, constipation, diarrhea, nausea and vomiting. Endocrine: Negative for polydipsia, polyphagia and polyuria. Genitourinary: Negative for frequency and urgency. Skin: Negative for wound. Neurological: Positive for weakness and numbness. Negative for headaches. Psychiatric/Behavioral: Negative for agitation and sleep disturbance. The patient is not nervous/anxious. 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 Gracie Miller Venous embolism lungs and legs Vitamin D deficiency Past Surgical History: Procedure Laterality Date APPENDECTOMY COLONOSCOPY last was 2014, polyps, done in [place], 2 procdures CORONARY ANGIOPLASTY WITH STENT PLACEMENT has had 2 surgeries, 2019 most recent ESOPHAGOGASTRODUODENOSCOPY last was done in [place], gastic tumor, INSULIN PUMP AND GLUCOSE SENSOR IR IVC FILTER PLACEMENT 2012 for Blood clots MT LAPS INSERTION TUNNELED INTRAPERITONEAL CATHETER N/A 05/19/2024 PD cath, ESRF.....Dr. Brian Arevalo TATTOO TEETH EXTRACTION TRANSFUSION BLOOD PRODUCT VASECTOMY Family History Problem Relation Age of Onset Uterine cancer Mother Heart disease Father Rheum arthritis Brother Coronary artery disease Brother Social History Tobacco Use Smoking status: Never Smokeless tobacco: Former Types: Chew Vaping Use Vaping status: Never Used Substance Use Topics Alcohol use: Not Currently Comment: did drank occassionally in past Drug use: Never The following portions of the patient's history were reviewed and updated as appropriate: allergies, current medications, past family history, past medical history, past social history, past surgicalhistory and problem list. Objective: BP (!) 149/68 Pulse 75 Temp 97.8 F (36.6 C) (Oral) Resp 18 Ht 5' 9 Wt (!) 139.7 kg (307 lb 15.7 oz) SpO2 96% BMI 45.48 kg/m Wt Readings from Last 3 Encounters: 06/15/24 (!) 139.7 kg (307 lb 15.7 oz) 06/12/24 (!) 138.3 kg (305 lb) 05/19/24 (!) 140 kg (308 lb 10.3 oz) Physical Exam: Physical Exam Constitutional: Appearance: He is well-developed. HENT: Head: Normocephalic and atraumatic. Eyes: Conjunctiva/sclera: Conjunctivae normal. Pupils: Pupils are equal, round, and reactive to light. Neck: Thyroid: No thyromegaly. Cardiovascular: Rate and Rhythm: Normal rate and regular rhythm. Heart sounds: Normal heart sounds. Pulmonary: Effort: Pulmonary effort is normal. Breath sounds: Normal breath sounds. Musculoskeletal: General: Normal range of motion. Cervical back: Normal range of motion and neck supple. Skin: General: Skin is warm and dry. Neurological: Mental Status: He is alert and oriented to person, place, and time. Psychiatric: Behavior: Behavior normal. Thought Content: Thought content normal. Judgment: Judgment normal. Laboratory Review: BP (!) 149/68 Pulse 75 Temp 97.8 F (36.6 C) (Oral) Resp 18 Ht 5' 9 Wt (!) 139.7 kg (307 lb 15.7 oz) SpO2 96% BMI 45.48 kg/m No results found for: HGBA1C Glucose (mg/dL) Date Value 06/19/2024 225 (H) Creatinine (mg/dL) Date Value 06/19/2024 5.14 (H) No results found for: CHOL , TRIG , HDL , LDLCALC , LDL No results found for: TSH No results found for: FREET4 Lab Results Component Value Date WBC 7.84 06/19/2024 HGB 8.3 (L) 06/19/2024 HCT 27.7 (L) 06/19/2024 MCV 86.8 06/19/2024 PLT 171 06/19/2024 This SmartLink has not been configured with any valid records. This SmartLink has not been configured with any valid records. Laboratory and Additional Data Reviewed: Laboratory 06/19/24 7:50 AM Nephrology 06/19/24 7:50 AM Medications 06/19/24 7:50 AM Transcriptions 06/19/24 7:50 AM Thank you for this consultation, we will continue to follow this patient with you. Alyson Patricia CNP * Liana Cifuentes MD - 06/18/2024 4:19 PM EDT [facility] [place]GRESS NOTE Assessment and Plan Lorenzo Amato is a 54 y.o. male patient of Lion Carlson MD with history of anemia, CAD, depression, diabetes mellitus, GERD, dyslipidemia, hypertension, MS, morbid obesity, NABOR, presented to [facility] on 06/15/2024 with groin swelling. Anasarca ESRD on PD Patient started PD 4 days ago, complains of bilateral groin swelling On exam he does not have any fluid pockets or any unilateral extremity swelling. Likely this is anasarca. IR consulted to place temporary HD catheter. Discussed with Dr. Miller, plan for HD next 3 days. Follow-up CAT scan of the abdomen and pelvis, consider general surgery consult. 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 Was on heparin drip for the procedure, switch back to home Eliquis. Hypertension Dyslipidemia Continue statin, hydralazine, metoprolol and Lasix Diabetes mellitus Last A1c 5 months ago 8.6 Pt has insulin pump, check blood glucose [facility]HS. Keep BG 140 and 180 Depression Continue Cymbalta and BuSpar CAD S/p TIFFANIE x 4, last 2018 Continue Plavix, metoprolol, Lasix Echo 06/16 with EF 32% and diastolic dysfunction. Pt follows with Dr. Farris at [facility] and has appt 06/22/24. 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 MS Morbid obesity NABOR BMI 45.04 Lifestyle modification advised to the patient CPAP at nighttime. Resolved acute medical issues Discharge Planning Medically Stable for Discharge Date: 06/19 Patient requires continued hospitalization due to: Anasarca, needs HD till can go back to PD. Discharge Location: home Quality Measures DVT Prophylaxis: eliquis Bill Catheter: absent Code Status Full Subjective Pt seen and examined today. States his right groin swelling has improved. Denies dyspnea or other pain. Objective BP (!) 157/78 Pulse 70 Temp 98.6 F (37 C) (Axillary) Resp 18 Ht 5' 9 Wt (!) 139.7 kg (307 lb 15.7 oz) SpO2 100% BMI 45.48 kg/m Physical Examination General Appearance: alert; acute on chronically ill appearing; in no acute distress HEENT: Head- normocephalic; Eyes- EOMI, sclera anicteric; Throat- mucous membranes moist Cardiovascular: regular rate and rhythm; normal S1, S2; no murmurs, rubs, clicks or gallops; No edema. Groin areas without swelling and feels normal. Respiratory: lungs clear to auscultation; without wheezes, rales or rhonchi; on CPAP Abdomen: obesity, soft, non-tender, non-distended Neurological: oriented x 3; normal speech; no focal findings or movement disorder noted Musculoskeletal: no significant deformity or tenderness to palpation Skin: normal coloration Psych: normal mood and affect * Delroy Fletcher MD - 06/18/2024 1:30 PM EDT NE[facility]ROLOGY PROGRESS [facility] Patient Name: Lorenzo Amato Admit Date: [id number] MR #: [id number] : 1970 Perpetual Assessment: Lorenzo Amato is a 54 y.o. male on hospital day 3 admitted for right leg swelling We are asked to evaluate and manage end-stage renal disease. Impression and Plan: End-stage kidney disease on peritoneal dialysis with Dr. Carline Miller. Due to diabetic nephropathy with no nephrotic range proteinuria -EDW to be established -Patient started PD training this week. During the fourth day of training patient developed sudden swelling of his right groin and leg. On examination, he does not have unilateral extremity swelling or scrotal swelling that is out of proportion. Certainly PD may cause hernias and extravasation of peritoneal fluid. More likely cause for his swelling is that he has significant anasarca. -Per chart review of surgery note on 06/18/24, no inguinal hernias, doubtful scrotal swelling is due to inguinal hernias -A CT of the abdomen pelvis shows no aortic aneurysm. IVC filter is noted in the IVC below the renal veins, no hydronephrosis Discussed with general surgeon today regarding right thigh swelling; appreciate his input. No surgical intervention at this time needed. HD started on 06/16 due to anasarca Once volume status improves he can go back to peritoneal dialysis. -Access: permacath right internal jugular on 06/16/24 -HD on 06/17 with UF 2.5 kg and post HD weight of 132.5kg -Next Hemodialysis plan for Wednesday -Home therapy updated about the above plan. Social work is consulted to make arrangements for outpatient dialysis at [facility] due to where patient lives. Once he is back on peritoneal dialysis he will resume care under my direction. While on HD he will flush his own PD catheter athome on a weekly basis Anasarca -From end-stage kidney disease with nephrotic range. -Given residual renal function will use IV Lasix -24 hr urine output 900 mL -Echocardiogram shows EF 32 %, Left ventricular diastolic function is grade I diastolic dysfunction, no pulmonary hypertension (06/16/24) 3. Anemia -Outpatient hemoglobin of 8.3 on 06/18 -He is iron deficient and will give IV load (Venofer 300mg daily x 3 days). -Will need to clear with his outpatient oncologist if he can receive Micera given his neuroendocrine tumor 4. Hypertension -In part from anasarca -His blood pressure has improved with UF as above -cont metoprolol 100 mg twice a day; also on hydralazine 100 mg twice a day 5. Secondary hyperparathyroidism -Last PTH of 416 and phosphorus of 6.2. -Has vitamin D deficiency. Historically noncompliant with vitamin D 6. History of bilateral DVT and PE -Patient remains on heparin drip -Eliquis can be restarted -Sent a message to the hospitalist regarding this Subjective: Patient feels much better since HD initiation.-Bedside. Review of Systems: ROS otherwise reviewed and negative Physical Examination: Vitals: Vitals: 06/18/24 0002 06/18/24 0033 06/18/24 0540 06/18/24 0741 BP: (!) 156/83 (!) 166/81 (!) 145/69 Pulse: 74 72 68 Resp: 16 16 Temp: 98.5 F (36.9 C) TempSrc: Oral SpO2: 97% 97% Weight: Height: Intake/Output last 3 shifts: Intake/Output Summary (Last 24 hours) at 06/18/2024 1330 Last data filed at 06/18/2024 1056 Gross per 24 hour Intake 572.25 ml Output 900 ml Net -327.75 ml I/O last 3 completed shifts: In: 380 [P.O.:360; I.V.:20] Out: 1350 [Urine:1350] General: Age appropriate, NAD. HEENT: Normocephalic, no scleral icterus. Heart: Regular, no murmur, no rub/gallop. Lungs: Clear to ascultation, no rales/wheezing/rhonchi. Good chest wall excursion. Abdomen: Soft, nontender, no supra-public fullness or tenderness. Penile edema with mild scrotal edema Extremities: No clubbing/cyanosis, 2-3+ lower extremity edema. Skin: Warm, dry, no rash, no bruise, no petichiae. Neuro: No myoclonus or tremor. Psych: Normal affect. PD catheter c/d/I Results/Medications Reviewed 06/18/24 1:30 PM: Laboratory, Microbiology, Pathology, Radiology, Cardiology, Medications and Transcriptions reviewed Scheduled Meds: atorvastatin 80 mg Oral Nightly busPIRone 15 mg Oral Q8H LUIS clopidogreL 75 mg Oral QAM DULoxetine 60 mg Oral QAM [START ON 06/19/2024] ergocalciferol 50,000 Units Oral Weekly furosemide 60 mg Intravenous Q12H LUIS hydrALAZINE 100 mg Oral BID metoprolol tartrate 100 mg Oral BID pantoprazole 40 mg Oral Daily sodium chloride (PF) 10-20 mL Intravenous Once in dialysis Continuous Infusions: heparin infusion (weight based dosing) 14 Units/kg/hr (06/16/24 0741) heparin sodium chloride 0.9 % subcutaneous insulin pump Results from last 7 days Lab Units 06/18/24 0525 06/17/24 0547 06/16/24 0641 WBC K/mcL 7.67 8.16 7.82 HGB g/dL 8.3* 7.3* 8.1* HCT % 28.3* 24.5* 27.3* PLT K/mcL 168 196 262 Results from last 7 days Lab Units 06/18/24 0525 06/17/24 0547 06/16/24 0641 06/15/24 1744 SODIUM mmol/L 133* 131* 136 138 POTASSIUM mmol/L 4.1 4.2 4.2 5.0 CHLORIDE mmol/L 97* 98 104 103 BICARB mmol/L 23 22 21 22 BUN mg/dL 29* 36* 45* 44* CREATININE mg/dL 4.19* 4.83* 5.33* 5.10* EGFR mL/min/1.73 m2 16* 13* 12* 13* GLUCOSE mg/dL 240* 276* 173* 193* CALCIUM mg/dL 8.6 8.2* 8.6 8.9 MAGNESIUM mg/dL -- -- 1.9 2.0 PHOSPHORUS mg/dL -- -- 6.0* 5.9* Urinalysis Potential limitations of the note: Parts of this note were created by dictation via voice recognition software (TurnStar). The completed note was reviewed for accuracy. However, there may be subtle errors that were not found during the review. If such errors are discovered, or if there are any questions or concerns regarding the recommendations/plan of care, please contact the author of the note prior to undertaking the recommendations/plan of care. * Elaine Younger CNP - 06/18/2024 1:10 PM EDT NEPHROLOGY PROGRESS [facility] Patient Name: Lorenzo Amato Admit Date: [id number] MR #: [id number] : 1970 Perpetual Assessment: Lorenzo Amato is a 54 y.o. male on hospital day 3 admitted for anasarca We are asked to evaluate and manage end-stage renal disease. Impression and Plan: End-stage kidney disease on peritoneal dialysis with Dr. Carline Miller. Due to diabetic nephropathy with no nephrotic range proteinuria -EDW to be established -Patient started PD training this week. During the fourth day of training patient developed sudden swelling of his right groin and leg. On examination, he does not have unilateral extremity swelling or scrotal swelling that is out of proportion. Certainly PD may cause hernias and extravasation of peritoneal fluid. More likely cause for his swelling is that he has significant anasarca. -Per chart review of surgery note on 06/18/24, no inguinal hernias, doubtful scrotal swelling is due to inguinal hernias -A CT of the abdomen pelvis shows no aortic aneurysm. IVC filter is noted in the IVC below the renal veins, no hydronephrosis, PD catheter is in placed, no abdominal hernia, no ascites, mild pulmonary edema with trace bilateral pleural effusion. -We plan to initiate hemodialysis via permacath to ameliorate the anasarca. Once volume status improves he can go back to peritoneal dialysis. -Access: permacath right internal jugular on 06/16/24 -Hemodialysis on 06/16/24 - Predialysis weight 139.9 kg, removed 2.3 L, tolerated well -Next Hemodialysis plan for Wednesday -Home therapy updated about the above plan. Social work is consulted to make arrangements for outpatient dialysis at [facility] due to where patient lives. Once he is back on peritoneal dialysis he will resume care under my direction. While on HD he will flush his own PD catheter athome on a weekly basis Anasarca -From end-stage kidney disease with nephrotic range. -Given residual renal function will use IV Lasix -24 hr urine output 900 mL -Echocardiogram shows EF 32 %, Left ventricular diastolic function is grade I diastolic dysfunction, no pulmonary hypertension (06/16/24) 3. Anemia -Outpatient hemoglobin of 8.3 on 06/18 -He is iron deficient and will give IV load (Venofer 300mg daily x 3 days). -Will need to clear with his outpatient oncologist if he can receive Micera given his neuroendocrine tumor 4. Hypertension -In part from anasarca -His blood pressure has improved with UF as above -cont metoprolol 100 mg twice a day; also on hydralazine 100 mg twice a day 5. Secondary hyperparathyroidism -Last PTH of 416 and phosphorus of 6.2. -Has vitamin D deficiency. Historically noncompliant with vitamin D 6. History of bilateral DVT and PE -Eliquis on hold for permacath procedure. Will be restarted postprocedure Subjective: Patient reports increased urination on oral Lasix. He does not believe he was taking the correct dose of Lasix prior to presentation. at bedside. Review of Systems: ROS otherwise reviewed and negative Physical Examination: Vitals: Vitals: 06/18/24 0002 06/18/24 0033 06/18/24 0540 06/18/24 0741 BP: (!) 156/83 (!) 166/81 (!) 145/69 Pulse: 74 72 68 Resp: 16 16 Temp: 98.5 F (36.9 C) TempSrc: Oral SpO2: 97% 97% Weight: Height: Intake/Output last 3 shifts: Intake/Output Summary (Last 24 hours) at 06/18/2024 1310 Last data filed at 06/18/2024 1056 Gross per 24 hour Intake 572.25 ml Output 900 ml Net -327.75 ml I/O last 3 completed shifts: In: 380 [P.O.:360; I.V.:20] Out: 1350 [Urine:1350] General: Age appropriate, NAD. HEENT: Normocephalic, no scleral icterus. Heart: Regular, no murmur, no rub/gallop. Lungs: Clear to ascultation, no rales/wheezing/rhonchi. Good chest wall excursion. Abdomen: Soft, nontender, no supra-public fullness or tenderness. Penile edema with mild scrotal edema Extremities: No clubbing/cyanosis, 2-3+ lower extremity edema. Skin: Warm, dry, no rash, no bruise, no petichiae. Neuro: No myoclonus or tremor. Psych: Normal affect. PD catheter c/d/I Results/Medications Reviewed 06/18/24 1:10 PM: Laboratory, Microbiology, Pathology, Radiology, Cardiology, Medications and Transcriptions reviewed Scheduled Meds: atorvastatin 80 mg Oral Nightly busPIRone 15 mg Oral Q8H LUIS clopidogreL 75 mg Oral QAM DULoxetine 60 mg Oral QAM [START ON 06/19/2024] ergocalciferol 50,000 Units Oral Weekly furosemide 60 mg Intravenous Q12H LUIS hydrALAZINE 100 mg Oral BID metoprolol tartrate 100 mg Oral BID pantoprazole 40 mg Oral Daily sodium chloride (PF) 10-20 mL Intravenous Once in dialysis Continuous Infusions: heparin infusion (weight based dosing) 14 Units/kg/hr (06/16/24 0741) heparin sodium chloride 0.9 % subcutaneous insulin pump Results from last 7 days Lab Units 06/18/24 0525 06/17/24 0547 06/16/24 0641 WBC K/mcL 7.67 8.16 7.82 HGB g/dL 8.3* 7.3* 8.1* HCT % 28.3* 24.5* 27.3* PLT K/mcL 168 196 262 Results from last 7 days Lab Units 06/18/24 0525 06/17/24 0547 06/16/24 0641 06/15/24 1744 SODIUM mmol/L 133* 131* 136 138 POTASSIUM mmol/L 4.1 4.2 4.2 5.0 CHLORIDE mmol/L 97* 98 104 103 BICARB mmol/L 23 22 21 22 BUN mg/dL 29* 36* 45* 44* CREATININE mg/dL 4.19* 4.83* 5.33* 5.10* EGFR mL/min/1.73 m2 16* 13* 12* 13* GLUCOSE mg/dL 240* 276* 173* 193* CALCIUM mg/dL 8.6 8.2* 8.6 8.9 MAGNESIUM mg/dL -- -- 1.9 2.0 PHOSPHORUS mg/dL -- -- 6.0* 5.9* Urinalysis Potential limitations of the note: Parts of this note were created by dictation via voice recognition software (TurnStar). The completed note was reviewed for accuracy. However, there may be subtle errors that were not found during the review. If such errors are discovered, or if there are any questions or concerns regarding the recommendations/plan of care, please contact the author of the note prior to undertaking the recommendations/plan of care. * Brian Arevalo MD - 06/18/2024 12:35 PM EDT Patient sleeping with CPAP mask. Family at bedside. Abd: obese, soft, NT, ND Groins: no palpable inguinal hernias CTAP: Images reviewed personally, focusing on the inguinal areas and there are no inguinal hernias. A/P: Doubt scrotal swelling is due to inguinal hernias. Most likely anasarca. Suspect this is due to IVC filter calcifications and development of collaterals. * Nick Watson CNP - 06/18/2024 7:37 AM EDT Patient ID: Patient Name: Lorenzo Amato Admit Date: 06/15/2024 MR #: [id number] : 1970 Current location: 2111 Physicians: Lion Carlson MD (Family); Ananda Gerber RPh,PharmD (Referring) Reason for consult: Type 2 diabetes out of control Assessment/Plan: Dx: Type 2 diabetes, under poor control Currently taking as outpatient: Insulin Pump: Basal Rates: 0000: 6.5 units per hour IC ratio: 0000: 1:2 Sensitivity: 0000: 1: 5 Takes 15 units with each meal Current Hemoglobin A1C= No results found for: HGBA1C NOTES: 06/17: BG and labs reviewed since admission. Patient is on a [employer] insulin pump, settings and placement reviewed by this provider. He is on a very high basal rate. He follows with endocrinology in [facility]. Na: 131; Creat: 4.83; eGFR: 13. CBC: WBC: 8.16; Hgb: 7.3; Hct: 24.5; Plt: 196. 06/18: BG and labs reviewed. Patient's BG ranging from 169-253 over last 24 hours. Currently on insulin pump. Suspended at this time. CBC: WBC: 7.67; Hgb: 8.3; Hct: 28.3; Plt: 168. Patient reports feeling well. Blood Glucoses: 06/16: 173---xxx---104---183 06/17: 276---169---253---220 06/18: 199 Plan: 1. Rx changes: none Continue current pump settings. 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 06/18: Resume insulin pump, take off suspend. 2. Education: Reviewed ABCs of diabetes management (respective goals in parentheses): A1C (7.0-8.0), blood pressure (<130/80), and cholesterol (LDL <100). Referral to Diabetes Education Referral to Nutrition therapy Subjective: Brief HPI: Mr. Amato is a 54-year-old male with a past medical history of type 2 diabetes mellitus,end-stage renal disease, coronary artery disease, hypertension, hyperlipidemia, mL and neuroendocrine tumor. Patient admitted on 06/15/2024 with anasarca. He was started on hemodialysis and has undergone IV diuresis. Patient reports some SOB and edema. Denies chest pain. Patient has had diabetes for 19 years. Diagnosed in 2004. Patient is currently taking insulin via insulin pump. It appears that his outpatient settings include a basal rate of 6.5 units/h. He followswith Dr. Hubert Nowak MD [facility] endocrinology. His last visit with their office was 04/26 last when his hemoglobin A1c was 9.0%. Patient has taken Insulin for >5 years, started a pump in 2019. . Currently the patient is receiving insulin via pump with outpatient settings. Blood sugar levels since admission have been ranging from 104-276 mg/dL. Current monitoring regimen: home blood tests - >4 times daily with [employer] sensor. Complications of diabetes include: Retinopathy: Negative Nephropathy: Positive Peripheral Neuropathy: Positive Autonomic Neuropathy: Negative Allergies: Allergies Allergen Reactions Lisinopril Cough Toradol [Ketorolac] Other (See Comments) Kidney failure Home Medications: Outpatient Medications Marked as Taking for the 06/15/24 encounter (Hospital Encounter): acetaminophen (TYLENOL) 500 MG tablet, Take 2 (two) tablets (1,000 mg total) by mouth every 6 (six)hours as needed for pain . atorvastatin (LIPITOR) 80 MG tablet, Take 1 (one) tablet (80 mg total) by mouth nightly . busPIRone (BUSPAR) 15 MG tablet, 1 (one) tablet (15 mg total) 3 (three) times a day . clopidogreL (PLAVIX) 75 mg tablet, Take 1 (one) tablet (75 mg total) by mouth every morning Start: 05/22/24. DULoxetine (CYMBALTA) 60 MG capsule, Take 1 (one) capsule (60 mg total) by mouth every morning . Eliquis 5 mg Tab, Take 1 (one) tablet (5 mg total) by mouth 2 (two) times a day Start: 05/22/24. ergocalciferol (Vitamin D2) 1,250 mcg (50,000 unit) capsule, Take 1 (one) capsule (50,000 Units total) by mouth once a week On Mondays . fluticasone propionate (FLONASE) 50 mcg/actuation nasal spray, Instill 2 (two) sprays into each nostril daily as needed for allergies . furosemide (LASIX) 40 MG tablet, Take 1 (one) tablet (40 mg total) by mouth 2 (two) times a day . gentamicin (GARAMYCIN) 0.3 % ophthalmic solution, by Other route See Admin Instructions 1 TO 2 drops topically to PERITONEAL DIALYSIS EXIT SITE once daily if needed . hydrALAZINE (APRESOLINE) 100 MG tablet, Take 1 (one) tablet (100 mg total) by mouth 2 (two) times aday . insulin lispro (AdmeLOG,HumaLOG) 100 unit/mL injection, Via insulin pump Reasons: max dose 250unitsdaily. meclizine (ANTIVERT) 25 mg tablet, Take 1 (one) tablet (25 mg total) by mouth 3 (three) times a dayas needed for nausea . metoprolol tartrate (LOPRESSOR) 100 MG tablet, Take 1 (one) tablet (100 mg total) by mouth 2 (two) times a day . octreotide ER (SandoSTATIN LAR [place]) 30 mg injection, Inject 30 (thirty) mg into the shoulder, thigh, or buttocks every 28 days . omeprazole (PRILOSEC) 40 MG capsule, Take 1 (one) capsule (40 mg total) by mouth 2 (two) times a day . senna-docusate (SENNA-S) 8.6-50 mg, Take 1 (one) tablet by mouth 2 (two) times a day as needed for constipation . triamcinolone (KENALOG) 0.1 % cream, Apply topically 2 (two) times a day as needed . Current Medications: atorvastatin 80 mg Oral Nightly busPIRone 15 mg Oral Q8H LUIS clopidogreL 75 mg Oral QAM DULoxetine 60 mg Oral QAM [START ON 06/19/2024] ergocalciferol 50,000 Units Oral Weekly furosemide 60 mg Intravenous Q12H LUIS hydrALAZINE 100 mg Oral BID iron sucrose (VENOFER) 300 mg in sodium chloride 0.9% (NS) 250 mL IVPB 300 mg Intravenous Daily metoprolol tartrate 100 mg Oral BID pantoprazole 40 mg Oral Daily sodium chloride (PF) 10-20 mL Intravenous Once in dialysis acetaminophen, aluminum-magnesium hydroxide-simethicone, heparin, ondansetron OR ondansetron, senna, sodium chloride 0.9%, sodium chloride 0.9% Review of Systems: Review of Systems Constitutional: Positive for fatigue and unexpected weight change (weight gain.). Eyes: Negative for visual disturbance. Respiratory: Positive for shortness of breath. Negative for cough. Cardiovascular: Positive for leg swelling. Negative for chest pain. Gastrointestinal: Negative for abdominal pain, constipation, diarrhea, nausea and vomiting. Endocrine: Negative for polydipsia, polyphagia and polyuria. Genitourinary: Negative for frequency and urgency. Skin: Negative for wound. Neurological: Positive for weakness and numbness. Negative for headaches. Psychiatric/Behavioral: Negative for agitation and sleep disturbance. The patient is not nervous/anxious. 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 Gracie Miller Venous embolism lungs and legs Vitamin D deficiency Past Surgical History: Procedure Laterality Date APPENDECTOMY COLONOSCOPY last was 2014, polyps, done in [place], 2 procdures CORONARY ANGIOPLASTY WITH STENT PLACEMENT has had 2 surgeries, 2019 most recent ESOPHAGOGASTRODUODENOSCOPY last was done in [place], gastic tumor, INSULIN PUMP AND GLUCOSE SENSOR IR IVC FILTER PLACEMENT 2012 for Blood clots MT LAPS INSERTION TUNNELED INTRAPERITONEAL CATHETER N/A 05/19/2024 PD cath, ESRF.....Dr. Brian Arevalo TATTOO TEETH EXTRACTION TRANSFUSION BLOOD PRODUCT VASECTOMY Family History Problem Relation Age of Onset Uterine cancer Mother Heart disease Father Rheum arthritis Brother Coronary artery disease Brother Social History Tobacco Use Smoking status: Never Smokeless tobacco: Former Types: Chew Vaping Use Vaping status: Never Used Substance Use Topics Alcohol use: Not Currently Comment: did drank occassionally in past Drug use: Never The following portions of the patient's history were reviewed and updated as appropriate: allergies, current medications, past family history, past medical history, past social history, past surgicalhistory and problem list. Objective: BP (!) 166/81 Pulse 72 Temp 98.5 F (36.9 C) (Oral) Resp 16 Ht 5' 9 Wt (!) 139.7 kg (307 lb 15.7 oz) SpO2 97% BMI 45.48 kg/m Wt Readings from Last 3 Encounters: 06/15/24 (!) 139.7 kg (307 lb 15.7 oz) 06/12/24 (!) 138.3 kg (305 lb) 05/19/24 (!) 140 kg (308 lb 10.3 oz) Physical Exam: Physical Exam Constitutional: Appearance: He is well-developed. HENT: Head: Normocephalic and atraumatic. Eyes: Conjunctiva/sclera: Conjunctivae normal. Pupils: Pupils are equal, round, and reactive to light. Neck: Thyroid: No thyromegaly. Cardiovascular: Rate and Rhythm: Normal rate and regular rhythm. Heart sounds: Normal heart sounds. Pulmonary: Effort: Pulmonary effort is normal. Breath sounds: Normal breath sounds. Musculoskeletal: General: Normal range of motion. Cervical back: Normal range of motion and neck supple. Skin: General: Skin is warm and dry. Neurological: Mental Status: He is alert and oriented to person, place, and time. Psychiatric: Behavior: Behavior normal. Thought Content: Thought content normal. Judgment: Judgment normal. Laboratory Review: BP (!) 166/81 Pulse 72 Temp 98.5 F (36.9 C) (Oral) Resp 16 Ht 5' 9 Wt (!) 139.7 kg (307 lb 15.7 oz) SpO2 97% BMI 45.48 kg/m No results found for: HGBA1C Glucose (mg/dL) Date Value 06/17/2024 276 (H) Creatinine (mg/dL) Date Value 06/17/2024 4.83 (H) No results found for: CHOL , TRIG , HDL , LDLCALC , LDL No results found for: TSH No results found for: FREET4 Lab Results Component Value Date WBC 7.67 06/18/2024 HGB 8.3 (L) 06/18/2024 HCT 28.3 (L) 06/18/2024 MCV 87.6 06/18/2024 PLT 168 06/18/2024 This SmartLink has not been configured with any valid records. This SmartLink has not been configured with any valid records. Laboratory and Additional Data Reviewed: Laboratory 06/18/24 6:02 AM Nephrology 06/18/24 6:02 AM Medications 06/18/24 6:02 AM Transcriptions 06/18/24 6:02 AM Thank you for this consultation, we will continue to follow this patient with you. Nick Watson CNP * Delroy Fletcher MD - 06/17/2024 6:06 PM EDT [facility]Y [facility] Patient Name: Lorenzo Amato Admit Date: [id number] MR #: [id number] : 1970 Perpetual Assessment: Lorenzo Amato is a 54 y.o. male on hospital day 2 admitted for anasarca We are asked to evaluate and manage end-stage renal disease. Impression and Plan: End-stage kidney disease on peritoneal dialysis with Dr. Carline Miller. Due to diabetic nephropathy with no nephrotic range proteinuria -EDW to be established -Patient started PD training this week. During the fourth day of training patient developed sudden swelling of his right groin and leg. On examination, he does not have unilateral extremity swelling or scrotal swelling that is out of proportion. Certainly PD may cause hernias and extravasation of peritoneal fluid. More likely cause for his swelling is that he has significant anasarca. -A CT of the abdomen pelvis shows no aortic aneurysm. IVC filter is noted in the IVC below the renal veins, no hydronephrosis, PD catheter is in placed, no abdominal hernia, no ascites, mild pulmonary edema with trace bilateral pleural effusion. -We plan to initiate hemodialysis via permacath to ameliorate the anasarca. Once volume status improves he can go back to peritoneal dialysis. -Access: permacath right internal jugular on 06/16/24 -Hemodialysis on 06/16/24 - Predialysis weight 139.9 kg, removed 2.3 L, tolerated well HD 06/17 with UF 2.5kg. Post HD weight of 132.5kg -Next Hemodialysis plan for Wednesday -Home therapy updated about the above plan. Social work has been consulted to make arrangements for[facility]patient dialysis at [facility] due to where patient lives. Once he is back on peritoneal dialysis he will resume care with Dr. Carline Miller. While on HD he will flush his own PD catheter at home on a weekly basis Anasarca -From end-stage kidney disease with nephrotic range. -Given residual renal function will use IV Lasix. -Echocardiogram shows EF 32 %, Left ventricular diastolic function is grade I diastolic dysfunction, no pulmonary hypertension (06/16/24) 3. Anemia -Outpatient hemoglobin of 9.4 on 06/12 -He is iron deficient and will give IV load (Venofer 300mg daily x 3 days). -Will need to clear with his outpatient oncologist if he can receive Micera given his neuroendocrine tumor 4. Hypertension -In part from anasarca -His blood pressure has improved with UF as above -cont metoprolol 100 mg twice a day; also on hydralazine 100 mg twice a day 5. Secondary hyperparathyroidism -Last PTH of 416 and phosphorus of 6.2. -Has vitamin D deficiency. Historically noncompliant with vitamin D 6. History of bilateral DVT and PE -Eliquis on hold for permacath procedure. Will be restarted postprocedure Subjective: No events overnight. Reports feeling better than on admission. Review of Systems: ROS otherwise reviewed and negative Physical Examination: Vitals: Vitals: 06/17/24 0734 06/17/24 1505 06/17/24 1514 06/17/24 1605 BP: (!) 174/89 (!) 144/70 BP Location: Patient Position: Pulse: 74 78 Resp: 17 16 17 16 Temp: 97.7 F (36.5 C) TempSrc: Oral SpO2: 97% 95% Weight: Height: Intake/Output last 3 shifts: Intake/Output Summary (Last 24 hours) at 06/17/2024 1806 Last data filed at 06/17/2024 1300 Gross per 24 hour Intake 380 ml Output 450 ml Net -70 ml I/O last 3 completed shifts: In: 0 Out: 4775 [Urine:2475; Other:2300] General: Age appropriate, NAD. HEENT: Normocephalic, no scleral icterus. Heart: Regular, no murmur, no rub/gallop. Lungs: Clear to ascultation, no rales/wheezing/rhonchi. Good chest wall excursion. Abdomen: Soft, nontender, no supra-public fullness or tenderness. Penile edema with mild scrotal edema Extremities: No clubbing/cyanosis, 2-3+ lower extremity edema. Skin: Warm, dry, no rash, no bruise, no petichiae. Neuro: No myoclonus or tremor. Psych: Normal affect. PD catheter c/d/I Results/Medications Reviewed 06/17/24 6:06 PM: Laboratory, Microbiology, Pathology, Radiology, Cardiology, Medications and Transcriptions reviewed Scheduled Meds: atorvastatin 80 mg Oral Nightly busPIRone 15 mg Oral Q8H LUIS clopidogreL 75 mg Oral QAM DULoxetine 60 mg Oral QAM [START ON 06/19/2024] ergocalciferol 50,000 Units Oral Weekly furosemide 60 mg Intravenous Q12H LUIS hydrALAZINE 100 mg Oral BID iron sucrose (VENOFER) 300 mg in sodium chloride 0.9% (NS) 250 mL IVPB 300 mg Intravenous Daily metoprolol tartrate 100 mg Oral BID pantoprazole 40 mg Oral Daily sodium chloride (PF) 10-20 mL Intravenous Once in dialysis sodium chloride (PF) 10-20 mL Intravenous Once in dialysis Continuous Infusions: heparin infusion (weight based dosing) 14 Units/kg/hr (06/16/24 0741) heparin sodium chloride 0.9 % subcutaneous insulin pump Results from last 7 days Lab Units 06/17/24 0547 06/16/24 0641 06/15/24 1744 WBC K/mcL 8.16 7.82 9.48 HGB g/dL 7.3* 8.1* 8.6* HCT % 24.5* 27.3* 29.2* PLT K/mcL 196 262 294 Results from last 7 days Lab Units 06/17/24 0547 06/16/24 0641 06/15/24 1744 SODIUM mmol/L 131* 136 138 POTASSIUM mmol/L 4.2 4.2 5.0 CHLORIDE mmol/L 98 104 103 BICARB mmol/L 22 21 22 BUN mg/dL 36* 45* 44* CREATININE mg/dL 4.83* 5.33* 5.10* EGFR mL/min/1.73 m2 13* 12* 13* GLUCOSE mg/dL 276* 173* 193* CALCIUM mg/dL 8.2* 8.6 8.9 MAGNESIUM mg/dL -- 1.9 2.0 PHOSPHORUS mg/dL -- 6.0* 5.9* Urinalysis Potential limitations of the note: Parts of this note were created by dictation via voice recognition software ([employer]). The completed note was reviewed for accuracy. However, there may be subtle errors that were not found during the review. If such errors are discovered, or if there are any questions or concerns regarding the recommendations/plan of care, please contact the author of the note prior to undertaking the recommendations/plan of care. * Elaine Younger, MARIA EUGENIA - 06/17/2024 3:20 PM EDT NE[facility]OLOGY [facility] Patient Name: Lorenzo Amato Admit Date: [id number] MR #: [id number] : 1970 Perpetual Assessment: Lorenzo Amato is a 54 y.o. male on hospital day 2 admitted for anasarca We are asked to evaluate and manage end-stage renal disease. Impression and Plan: End-stage kidney disease on peritoneal dialysis with Dr. Carline Miller. Due to diabetic nephropathy with no nephrotic range proteinuria -EDW to be established -Patient started PD training this week. During the fourth day of training patient developed sudden swelling of his right groin and leg. On examination, he does not have unilateral extremity swelling or scrotal swelling that is out of proportion. Certainly PD may cause hernias and extravasation of peritoneal fluid. More likely cause for his swelling is that he has significant anasarca. -A CT of the abdomen pelvis shows no aortic aneurysm. IVC filter is noted in the IVC below the renal veins, no hydronephrosis, PD catheter is in placed, no abdominal hernia, no ascites, mild pulmonary edema with trace bilateral pleural effusion. -We plan to initiate hemodialysis via permacath to ameliorate the anasarca. Once volume status improves he can go back to peritoneal dialysis. -Access: permacath right internal jugular on 06/16/24 -Hemodialysis on 06/16/24 - Predialysis weight 139.9 kg, removed 2.3 L, tolerated well -Next Hemodialysis plan for Wednesday -Home therapy updated about the above plan. Social work is consulted to make arrangements for outpatient dialysis at [facility] due to where patient lives. Once he is back on peritoneal dialysis he will resume care under my direction. While on HD he will flush his own PD catheter athome on a weekly basis Anasarca -From end-stage kidney disease with nephrotic range. -Given residual renal function will use IV Lasix. -Echocardiogram shows EF 32 %, Left ventricular diastolic function is grade I diastolic dysfunction, no pulmonary hypertension (06/16/24) 3. Anemia -Outpatient hemoglobin of 9.4 on 06/12 -He is iron deficient and will give IV load (Venofer 300mg daily x 3 days). -Will need to clear with his outpatient oncologist if he can receive Micera given his neuroendocrine tumor 4. Hypertension -In part from anasarca -His blood pressure has improved with UF as above -cont metoprolol 100 mg twice a day; also on hydralazine 100 mg twice a day 5. Secondary hyperparathyroidism -Last PTH of 416 and phosphorus of 6.2. -Has vitamin D deficiency. Historically noncompliant with vitamin D 6. History of bilateral DVT and PE -Eliquis on hold for permacath procedure. Will be restarted postprocedure Subjective: Patient reports increased urination on oral Lasix. He does not believe he was taking the correct dose of Lasix prior to presentation. at bedside. Review of Systems: ROS otherwise reviewed and negative Physical Examination: Vitals: Vitals: 06/17/24 0554 06/17/24 0708 06/17/24 0734 06/17/24 1514 BP: (!) 153/80 (!) 174/89 (!) 144/70 BP Location: Patient Position: Pulse: 64 74 78 Resp: 18 17 17 Temp: 97.4 F (36.3 C) 97.7 F (36.5 C) TempSrc: Oral Oral SpO2: 97% 100% 97% 95% Weight: Height: Intake/Output last 3 shifts: Intake/Output Summary (Last 24 hours) at 06/17/2024 1520 Last data filed at 06/17/2024 1300 Gross per 24 hour Intake 380 ml Output 2750 ml Net -2370 ml I/O last 3 completed shifts: In: 0 Out: 4775 [Urine:2475; Other:2300] General: Age appropriate, NAD. HEENT: Normocephalic, no scleral icterus. Heart: Regular, no murmur, no rub/gallop. Lungs: Clear to ascultation, no rales/wheezing/rhonchi. Good chest wall excursion. Abdomen: Soft, nontender, no supra-public fullness or tenderness. Penile edema with mild scrotal edema Extremities: No clubbing/cyanosis, 2-3+ lower extremity edema. Skin: Warm, dry, no rash, no bruise, no petichiae. Neuro: No myoclonus or tremor. Psych: Normal affect. PD catheter c/d/I Results/Medications Reviewed 06/17/24 3:20 PM: Laboratory, Microbiology, Pathology, Radiology, Cardiology, Medications and Transcriptions reviewed Scheduled Meds: atorvastatin 80 mg Oral Nightly busPIRone 15 mg Oral Q8H LUIS clopidogreL 75 mg Oral QAM DULoxetine 60 mg Oral QAM [START ON 06/19/2024] ergocalciferol 50,000 Units Oral Weekly furosemide 60 mg Intravenous Q12H LUIS hydrALAZINE 100 mg Oral BID iron sucrose (VENOFER) 300 mg in sodium chloride 0.9% (NS) 250 mL IVPB 300 mg Intravenous Daily metoprolol tartrate 100 mg Oral BID pantoprazole 40 mg Oral Daily sodium chloride (PF) 10-20 mL Intravenous Once in dialysis sodium chloride (PF) 10-20 mL Intravenous Once in dialysis Continuous Infusions: heparin infusion (weight based dosing) 14 Units/kg/hr (06/16/24 0741) heparin sodium chloride 0.9 % subcutaneous insulin pump Results from last 7 days Lab Units 06/17/24 0547 06/16/24 0641 06/15/24 1744 WBC K/mcL 8.16 7.82 9.48 HGB g/dL 7.3* 8.1* 8.6* HCT % 24.5* 27.3* 29.2* PLT K/mcL 196 262 294 Results from last 7 days Lab Units 06/17/24 0547 06/16/24 0641 06/15/24 1744 SODIUM mmol/L 131* 136 138 POTASSIUM mmol/L 4.2 4.2 5.0 CHLORIDE mmol/L 98 104 103 BICARB mmol/L 22 21 22 BUN mg/dL 36* 45* 44* CREATININE mg/dL 4.83* 5.33* 5.10* EGFR mL/min/1.73 m2 13* 12* 13* GLUCOSE mg/dL 276* 173* 193* CALCIUM mg/dL 8.2* 8.6 8.9 MAGNESIUM mg/dL -- 1.9 2.0 PHOSPHORUS mg/dL -- 6.0* 5.9* Urinalysis Potential limitations of the note: Parts of this note were created by dictation via voice recognition software ([employer]). The completed note was reviewed for accuracy. However, there may be subtle errors that were not found during the review. If such errors are discovered, or if there are any questions or concerns regarding the recommendations/plan of care, please contact the author of the note prior to undertaking the recommendations/plan of care. * Liana Cifuentes MD - 06/17/2024 10:05 AM EDT [facility] [place] PROGRESS NOTE Assessment and Plan Lorenzo Amato is a 54 y.o. male patient of Lion Carlson MD with history of anemia, CAD, depression, diabetes mellitus, GERD, dyslipidemia, hypertension, MS, morbid obesity, NABOR, presented to [facility] on 06/15/2024 with groin swelling. Anasarca ESRD on PD Patient started PD 4 days ago, complains of bilateral groin swelling On exam he does not have any fluid pockets or any unilateral extremity swelling. Likely this is anasarca. IR consulted to place temporary HD catheter. Discussed with Dr. Miller, plan for HD next 3 days. Follow-up CAT scan of the abdomen and pelvis, consider general surgery consult. 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 Was on heparin drip for the procedure, switch back to home Eliquis. Hypertension Dyslipidemia Continue statin, hydralazine, metoprolol and Lasix Diabetes mellitus Last A1c 5 months ago 8.6 Pt has insulin pump, check blood glucose [facility]HS. Keep BG 140 and 180 Depression Continue Cymbalta and BuSpar CAD S/p TIFFANIE x 4, last 2018 Continue Plavix, metoprolol, Lasix MS Morbid obesity NABOR BMI 45.04 Lifestyle modification advised to the patient CPAP at nighttime. Resolved acute medical issues Discharge Planning Medically Stable for Discharge Date: 06/19 Patient requires continued hospitalization due to: Anasarca, needs HD till can go back to PD. Discharge Location: home Quality Measures DVT Prophylaxis: eliquis Bill Catheter: absent Code Status Full Primary Contact Information Subjective Patient on dialysis today. States his right groin swelling has improved. Denies dyspnea or other pain. Objective BP (!) 174/89 Pulse 74 Temp 97.4 F (36.3 C) (Oral) Resp 17 Ht 5' 9 Wt (!) 139.7 kg (307 lb 15.7 oz) SpO2 97% BMI 45.48 kg/m Physical Examination General Appearance: alert; acute on chronically ill appearing; in no acute distress HEENT: Head- normocephalic; Eyes- EOMI, sclera anicteric; Throat- mucous membranes moist Cardiovascular: regular rate and rhythm; normal S1, S2; no murmurs, rubs, clicks or gallops; peripheral edema 1+ Groin areas without swelling and feel normal. Respiratory: lungs clear to auscultation; without wheezes, rales or rhonchi; on CPAP Abdomen: obesity, soft, non-tender, non-distended Neurological: oriented x 3; normal speech; no focal findings or movement disorder noted Musculoskeletal: no significant deformity or tenderness to palpation Skin: normal coloration Psych: normal mood and affect * Sandro Handley RN - 06/16/2024 5:10 PM EDT 06/16/24 1737 Post-Hemodialysis Assessment Rinseback Volume (mL) 300 mL Total Liters Processed (L/min) 36.3 L/min Dialyzer Clearance Moderately streaked Duration of Treatment (minutes) 120 minutes Hemodialysis Fluid Given mL (Intake) 0 mL Hemodialysis Fluid Removed mL (Output) 2300 mL Patient Response to Treatment tolerated well Post-Hemodialysis Comments no complications noted during and after HD. Pt.d denies any complaints at this time. Treatment Status Completed Vital Signs Temp 98 F (36.7 C) Temp src Infrared Pulse 67 Resp 18 BP 104/62 BP Location Left arm BP Method Automatic Patient Position Lying Hemodialysis Central Line Access Permanent catheter Right Internal jugular (IJ) Placement Date/Time: 06/16/24 1343 Inserted by: Rian Site Prep: Chlorhexidine Site Prep Agent has Completely Dried Before Drape Applied: Yes Local Anesthetic: Injectable Insertion Attempts: 1 Dialysis Catheter Type: Tunneled Access Type: ... Arterial Line Status Flushed;Clamped;Deaccessed Venous Line Status Flushed;Clamped;Deaccessed * Sandro Handley RN - 06/16/2024 2:35 PM EDT 06/16/24 1435 Pre-Hemodialysis Assessment Hep B status verified? Yes Hep B Antigen Negative Date 06/07/24 Patient Status Arrived Treatment Status Started Access Used Catheter Pre-Treatment Weight 308 lb 6.8 oz Machine Number [id number] RO 43 Bleach Negative Yes Machine Safety Test Completed Yes Machine Temperature 95.9 F (35.5 C) Dialyzer F-160 Machine Conductivity 13.4 Dialysate Na (mEq/L) 135 mEq/L Dialysate K (mEq/L) 2.2 mEq/L Dialysate CA (mEq/L) 2 mEq/L Hemodialysis Central Line Access Permanent catheter Right Internal jugular (IJ) Placement Date/Time: 06/16/24 1343 Inserted by: Rian Site Prep: Chlorhexidine Site Prep Agent has Completely Dried Before Drape Applied: Yes Local Anesthetic: Injectable Insertion Attempts: 1 Dialysis Catheter Type: Tunneled Access Type: ... Site Assessment Clean;Dry;Intact Arterial Line Status Accessed;Flushed;Patent Venous Line Status Accessed;Flushed;Patent Verification by X-ray Other (Comment) Site Condition No complications Pre TX vitals: 98.1, 72, 18, 151/82 * Gracie Miller MD - 06/16/2024 1:09 PM EDT [facility]OLOGY [facility] Patient Name: Lorenzo Amato Admit Date: [id number] MR #: [id number] : 1970 Perpetual Assessment: Lorenzo Amato is a 54 y.o. male on hospital day 1 admitted for anasarca We are asked to evaluate and manage end-stage renal disease. Impression and Plan: End-stage kidney disease on peritoneal dialysis with Dr. Carline Miller. Due to diabetic nephropathy with no nephrotic range proteinuria -EDW to be established -Patient started PD training this week. During the fourth day of training patient developed sudden swelling of his right groin and leg. On examination, he does not have unilateral extremity swelling or scrotal swelling that is out of proportion. Certainly PD may cause hernias and extravasation of peritoneal fluid. More likely cause for his swelling is that he has significant anasarca. A CT of theabdomen pelvis is pending at this time. -We plan to initiate hemodialysis via permacath to ameliorate the anasarca. Once volume status improves he can go back to peritoneal dialysis. -IR to place permacath today and he will have his first treatment. -Second dialysis treatment tomorrow -Home therapy updated about the above plan. Social work is consulted to make arrangements for outpatient dialysis at [facility] due to where patient lives. Once he is back on peritoneal dialysis he will resume care under my direction. While on HD he will flush his own PD catheter athome on a weekly basis Anasarca -From end-stage kidney disease with nephrotic range. -Given residual renal function will use IV Lasix. -Will check 2D echo 3. Anemia -Outpatient hemoglobin of 9.4 on 06/12 -He is iron deficient and will give IV load (Venofer 300mg daily x 3 days). -Will need to clear with his outpatient oncologist if he can receive Micera given his neuroendocrine tumor 4. Hypertension -In part from anasarca -Expect this to improve with UF as above -cont metoprolol 100 mg twice a day; also on hydralazine 100 mg twice a day 5. Secondary hyperparathyroidism -Last PTH of 416 and phosphorus of 6.2. -Has vitamin D deficiency. Historically noncompliant with vitamin D 6. History of bilateral DVT and PE -Eliquis on hold for permacath procedure. Will be restarted postprocedure Subjective: Patient reports increased urination on oral Lasix. He does not believe he was taking the correct dose of Lasix prior to presentation. at bedside. Review of Systems: ROS otherwise reviewed and negative Physical Examination: Vitals: Vitals: 06/15/24 2100 06/15/24 2352 06/16/24 0600 06/16/24 0733 BP: (!) 183/95 (!) 163/83 (!) 156/70 Pulse: 93 70 70 Resp: 18 18 Temp: 97.9 F (36.6 C) 97.9 F (36.6 C) TempSrc: Oral SpO2: 98% 97% 93% Weight: (!) 139.7 kg (307 lb 15.7 oz) Height: Intake/Output last 3 shifts: Intake/Output Summary (Last 24 hours) at 06/16/2024 1310 Last data filed at 06/16/2024 1100 Gross per 24 hour Intake -- Output 1425 ml Net -1425 ml I/O last 3 completed shifts: In: - Out: 900 [Urine:900] General: Age appropriate, NAD. HEENT: Normocephalic, no scleral icterus. Heart: Regular, no murmur, no rub/gallop. Lungs: Clear to ascultation, no rales/wheezing/rhonchi. Good chest wall excursion. Abdomen: Soft, nontender, no supra-public fullness or tenderness. Penile edema with mild scrotal edema Extremities: No clubbing/cyanosis, 2-3+ lower extremity edema. Skin: Warm, dry, no rash, no bruise, no petichiae. Neuro: No myoclonus or tremor. Psych: Normal affect. PD catheter c/d/I Results/Medications Reviewed 06/16/24 1:10 PM: Laboratory, Microbiology, Pathology, Radiology, Cardiology, Medications and Transcriptions reviewed Scheduled Meds: atorvastatin 80 mg Oral Nightly busPIRone 15 mg Oral Q8H LUIS clopidogreL 75 mg Oral QAM DULoxetine 60 mg Oral QAM [START ON 06/19/2024] ergocalciferol 50,000 Units Oral Weekly furosemide 40 mg Oral BID hydrALAZINE 100 mg Oral BID metoprolol tartrate 100 mg Oral BID pantoprazole 40 mg Oral Daily sodium chloride (PF) 10-20 mL Intravenous Once in dialysis Continuous Infusions: heparin infusion (weight based dosing) 14 Units/kg/hr (06/16/24 0741) heparin sodium chloride 0.9 % Results from last 7 days Lab Units 06/16/24 0641 06/15/24 1744 WBC K/mcL 7.82 9.48 HGB g/dL 8.1* 8.6* HCT % 27.3* 29.2* PLT K/mcL 262 294 Results from last 7 days Lab Units 06/16/24 0641 06/15/24 1744 SODIUM mmol/L 136 138 POTASSIUM mmol/L 4.2 5.0 CHLORIDE mmol/L 104 103 BICARB mmol/L 21 22 BUN mg/dL 45* 44* CREATININE mg/dL 5.33* 5.10* EGFR mL/min/1.73 m2 12* 13* GLUCOSE mg/dL 173* 193* CALCIUM mg/dL 8.6 8.9 MAGNESIUM mg/dL 1.9 2.0 PHOSPHORUS mg/dL 6.0* 5.9* Urinalysis Potential limitations of the note: Parts of this note were created by dictation via voice recognition software ([employer]). The completed note was reviewed for accuracy. However, there may be subtle errors that were not found during the review. If such errors are discovered, or if there are any questions or concerns regarding the recommendations/plan of care, please contact the author of the note prior to undertaking the recommendations/plan of care. * Mark Vasquez MD - 06/16/2024 10:16 AM EDT [facility] [place] PROGRESS NOTE Assessment and Plan Lorenzo Amato is a 54 y.o. male patient of Lion Carlson MD with history of anemia, CAD, depression, diabetes mellitus, GERD, dyslipidemia, hypertension, MS, morbid obesity, NABOR, presented to [facility] on 06/15/2024 with groin swelling. Anasarca ESRD on PD Patient started PD 4 days ago, complains of bilateral groin swelling On exam he does not have any fluid pockets or any unilateral extremity swelling. Likely this is anasarca. IR consulted to place temporary HD catheter. Discussed with Dr. Miller, plan for HD next 3 days. Follow-up CAT scan of the abdomen and pelvis, consider general surgery consult. 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 Was on heparin drip for the procedure, switch back to home Eliquis. Hypertension Dyslipidemia Continue statin, hydralazine, metoprolol and Lasix Diabetes mellitus Last A1c 5 months ago 8.6 Pt has insulin pump, check blood glucose [facility]. Keep BG 140 and 180 Depression Continue Cymbalta and BuSpar CAD S/p TIFFANIE x 4, last 2018 Continue Plavix, metoprolol, Lasix MS Morbid obesity NABOR BMI 45.04 Lifestyle modification advised to the patient CPAP at nighttime. Resolved acute medical issues Discharge Planning Medically Stable for Discharge Date: 06/19 Patient requires continued hospitalization due to: Anasarca, needs UF Discharge Location: home Quality Measures DVT Prophylaxis: eliquis Bill Catheter: absent Code Status Full Primary Contact Information Subjective Patient on CPAP this morning denies any shortness of breath. Reports swelling is slightly improved today. I do not feel any fluid pockets in the groin or in the lower abdomen. Objective BP (!) 156/70 Pulse 70 Temp 97.9 F (36.6 C) Resp 18 Ht 5' 9 Wt (!) 139.7 kg (307 lb 15.7oz) SpO2 93% BMI 45.48 kg/m Physical Examination General Appearance: alert; acute on chronically ill appearing; in no acute distress HEENT: Head- normocephalic; Eyes- EOMI, sclera anicteric; Throat- mucous membranes moist Cardiovascular: regular rate and rhythm; normal S1, S2; no murmurs, rubs, clicks or gallops; peripheral edema 1+ Anasarca in lower abdomen and groin area Respiratory: lungs clear to auscultation; without wheezes, rales or rhonchi; on CPAP Abdomen: obesity, soft, non-tender, non-distended Neurological: oriented x 3; normal speech; no focal findings or movement disorder noted Musculoskeletal: no significant deformity or tenderness to palpation Skin: normal coloration Psych: normal mood and affect documented in this [id number] Hospital course Narrative* Tapan Rudolph MD - 06/22/2024 10:08 AM EDT [facility] [place] SUMMARY -- [facility] Lorenzo Amato Admitted: 06/15/2024 Discharge Date: 06/22/24 PCP Handoff Recommended Outpatient Testing Follow-up with cardiology and PCP Results Pending At Discharge None Clinical Summary Lorenzo Amato is a 54 y.o. male patient of Lion Carlson MD with history of anemia, CAD, depression, diabetes mellitus, GERD, dyslipidemia, hypertension, MS, morbid obesity, NABOR, presented to [facility] on 06/15/2024 with groin swelling. Anasarca ESRD on PD Patient started PD 4 days ago, complains of bilateral groin swelling On exam he does not have any fluid pockets or any unilateral extremity swelling. Likely this is anasarca. 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 Continue to hold Eliquis for possible left heart cath in a.m. continue IV heparin drip Hypertension Dyslipidemia Continue statin, hydralazine, metoprolol and Lasix Diabetes mellitus Last A1c 5 months ago 8.6 Pt has insulin pump, check blood glucose [facility]HS. Keep BG 140 and 180 Depression Continue Cymbalta and BuSpar History of coronary artery disease New diagnosis of systolic CHF Echo 06/16 with EF 32% and diastolic dysfunction. Patient denies any symptoms of shortness of breath or chest pain. Cardiology consulted continue Entresto, Toprol-XL and hydralazine Status post left heart Severe 3 vessel coronary artery disease Patent stent in LCX-OM1 with no significant ISR 100% occluded ostial RCA with left to right collaterals High grade stenosis of prox-mid LAD High grade stenosis of D1 Successful percutaneous coronary intervention of LAD with cutting balloon, shockwave lithotripsy and TIFFANIE x 1 Successful percutaneous coronary intervention of D1 with TIFFANIE x 2 IVUS imaging of LAD Unable to rescue jailed D1 behind LAD stent despite multiple attempts with residual ostial 80% stenosis Normal left heart filling pressures Continue Plavix indefinitely. Okay to resume Eliquis per cardiology No aspirin as patient will be on Eliquis and Plavix MS Morbid obesity NABOR BMI 45.04 Lifestyle modification advised to the patient CPAP at nighttime. On discharge today patient pain-free denies any shortness of breath or nausea or dizziness Vital signs stable Cardiology and nephrology okay with discharge Discharge home Discharge Medications Discharge Medications New Medications Details metoprolol succinate 100 MG 24 hr tablet Commonly known as: TOPROL-XL Take 1 (one) tablet (100 mg total) by mouth 2 (two) times a day . Quantity: 60 tablet nitroGLYCERIN 0.4 MG SL tablet Commonly known as: NITROSTAT Place 1 (one) tablet (0.4 mg total) under the tongue every 5 (five) minutes as needed for chest pain , if no relief after 3 doses call 911 . Quantity: 25 tablet sacubitriL-valsartan 24-26 mg per tablet Commonly known as: ENTRESTO Take 1 (one) tablet by mouth 2 (two) times a day Hold for systolic < 95 . Quantity: 60 tablet Medications To Continue Details acetaminophen 500 MG tablet Commonly known as: TYLENOL Take 2 (two) tablets (1,000 mg total) by mouth every 6 (six) hours as needed for pain . atorvastatin 80 MG tablet Commonly known as: LIPITOR Take 1 (one) tablet (80 mg total) by mouth nightly . busPIRone 15 MG tablet Commonly known as: BUSPAR 1 (one) tablet (15 mg total) 3 (three) times a day . clopidogreL 75 mg tablet Commonly known as: PLAVIX Take 1 (one) tablet (75 mg total) by mouth every morning . Quantity: 30 tablet DULoxetine 60 MG capsule Commonly known as: CYMBALTA Take 1 (one) capsule (60 mg total) by mouth every morning . Eliquis 5 mg Tab Generic drug: apixaban Take 1 (one) tablet (5 mg total) by mouth 2 (two) times a day Start: 05/22/24. Quantity: 60 tablet fluticasone propionate 50 mcg/actuation nasal spray Commonly known as: FLONASE Instill 2 (two) sprays into each nostril daily as needed for allergies . furosemide 40 MG tablet Commonly known as: LASIX Take 1 (one) tablet (40 mg total) by mouth 2 (two) times a day . gentamicin 0.3 % ophthalmic solution Commonly known as: GARAMYCIN by Other route See Admin Instructions 1 TO 2 drops topically to PERITONEAL DIALYSIS EXIT SITE once daily if needed . glucagon 1 mg/mL Solr Inject 1 mL (1 mg total) into the shoulder, thigh, or buttocks as needed . hydrALAZINE 100 MG tablet Commonly known as: APRESOLINE Take 1 (one) tablet (100 mg total) by mouth 2 (two) times a day . insulin lispro 100 unit/mL injection Commonly known as: AdmeLOG,HumaLOG Via insulin pump Reasons: max dose 250units daily. meclizine 25 mg tablet Commonly known as: ANTIVERT Take 1 (one) tablet (25 mg total) by mouth 3 (three) times a day as needed for nausea . octreotide ER 30 mg injection Commonly known as: SandoSTATIN LAR [place] Inject 30 (thirty) mg into the shoulder, thigh, or buttocks every 28 days . Quantity: 1 each omeprazole 40 MG capsule Commonly known as: PRILOSEC Take 1 (one) capsule (40 mg total) by mouth 2 (two) times a day . senna-docusate 8.6-50 mg Commonly known as: SENNA-S Take 1 (one) tablet by mouth 2 (two) times a day as needed for constipation . SUBCUTANEOUS INSULIN PUMP MISC by Miscellaneous route . triamcinolone 0.1 % cream Commonly known as: KENALOG Apply topically 2 (two) times a day as needed . Vitamin D2 1,250 mcg (50,000 unit) capsule Generic drug: ergocalciferol Take 1 (one) capsule (50,000 Units total) by mouth once a week On Mondays . Stopped Medications metoprolol tartrate 100 MG tablet Commonly known as: LOPRESSOR OCTREOTIDE ACETATE SUBQ Physician(s) Follow Up: No follow-up provider specified. Condition at Discharge: Stable Disposition: Home I reviewed discharge recommendations with the patient in person. Patient instructions, including activity, were given to the patient/family at discharge. On day of discharge I saw Lorenzo Amato and spent: > 30 minutes on discharge. Completed by: Tapan Rudolph MD on 06/22/24, 10:08 AM documented in this [id number] Note* Sign Off Note - Jm Tellez CNP - 06/22/2024 9:27 AM EDT Cardiology Progress Note [facility] Cardiology Sign-Off Discharge Medications: Eliquis 5mg twice a day; Plavix 75mg daily; Toprol XL 100mg twice a day; Entresto 24-26mg twice a day; Lipitor 80mg daily; Lasix 40mg twice a day; Hydralazine 100mg twice a day; NTG 0.4mg SL as needed for chest pain; in addition to noncardiac medications Follow-up Imaging, Testing: TBD OP setting per [facility] Follow-up Appointments: Follow up w/ [facility]. Additional Instructions Reviewed with Patient and/or Family: Compliance with follow-up. Compliance with medications. Diet Instructions: low fat and low salt. Return to Normal Activity: Please see post cath/PCI/site care instructions.. Assessment/Plan: New systolic dysfunction Coronary artery disease End-stage renal disease on peritoneal dialysis with transition to hemodialysis EF 32%. S/p PCI intervention to LAD w/ cutting balloon, shockwave lithotripsy and TIFFANIE x 1; PCI D1 TIFFANIE x 2; unable to rescue jailed D1 behind LAD stent despite multiple attempts w/ residual ostial 80%stenosis. Patent stent to LCX-OM1, 100% occluded RCA w/ left to right collaterals. Right radial dressing dry and intact. No neurovascular compromise to RUE. Nephrology recommends patient resuming his Lasix 40mg twice a day for home. He is not on aspirin as he is on Eliquis and Plavix therapy and should remain off aspirin. GDMT for his LV dysfunction. Will add holding parameters for his blood pressure with the Entresto. Lopressor was switched to succinate therapy. Continue statin, Hydralazine. Adding as needed SL NTG. He has been referred to phase II cardiac rehab. This NUTRITION AIDE discussed Cardiac Rehabilitation with the patient. Subjects covered during this discussion included: The importance and benefits of Cardiac Rehab and exercise upon discharge from the hospital Instructed that a member of the Cardiac Rehab team will contact them to schedule these appointmentsafter discharge Were provided a list of locations to choose for this follow up. Cardiac Rehab will occur at to be determined Cardiac Rehab referral placed? YES Plan: Can be discharged from a cardiology standpoint. He will need to follow up w/ Dr. Oro OP setting. Continue to follow nephrology in OP setting. LOS: 7 days Subjective: Mr. Amato denies chest pain, dyspnea, palpitations, pain or swelling in the groin, peripheral swelling, or dizziness Objective: Vital signs in last 24 hours: Temp: [97.5 F (36.4 C)-97.8 F (36.6 C)] 97.5 F (36.4 C) Heart Rate: [69-87] 84 Resp: [16-22] 16 BP: (94-150)/(52-74) 150/60 Physical Exam: Alert, no acute distress JVP is not elevated Heart is regular rate and rhythm. No gallop or rub. No murmur Lungs are clear to ausculation bilaterally. Nonlabored respirations. Abdomen soft and nontender Lower extremities have no edema. New cardiac test results if any: Imaging: Lab Review Today's available lab reviewed. [id number] Note* Plan of Care - Isi Longoria RN - 06/22/2024 12:07 AM EDT Problem: Actual or potential alteration in health Goal: Absence of healthcare acquired conditions Outcome: Partially Met Goal: Knowledge of Interdisciplinary Plan of Care Outcome: Partially Met Goal: Knowledge of Enviroment Outcome: Partially Met Problem: Pain Goal: Reduced pain sensation Outcome: Partially Met Goal: Control of acute pain to acceptable level Outcome: Partially Met Goal: Able to cope with pain Outcome: Partially Met Goal: Able to achieve maximum level of physical functioning Outcome: Partially Met Goal: Able to achieve maximum level of psychosocial functioning Outcome: Partially Met [id number] Procedure note* Heather Granger RN - 06/21/2024 8:07 PM EDT Associated Order(s): HEMODIALYSIS INPATIENT Hemodialysis tx complete. Patient hypotensive with fluid removal goals. Dr. Miller updated and orded 1000ml's ns to be given during the remainder of tx. Patient tolerated tx well. +1000 UF Pre weight 132.3kg Post weight 133kg Tx start 1543 Tx complete-1945 Post tx vitals-130/66 t-98.6 p-83 rr-18 [id number] Procedure note* Heather Granger RN - 06/21/2024 8:07 PM EDT Associated Order(s): HEMODIALYSIS INPATIENT Hemodialysis tx complete. Patient hypotensive with fluid removal goals. Dr. Miller updated and orded 1000ml's ns to be given during the remainder of tx. Patient tolerated tx well. +1000 UF Pre weight 132.3kg Post weight 133kg Tx start 1543 Tx complete-1944 Post tx vitals-130/66 t-98.6 p-83 rr-18 * Melba Singh MD - 06/21/2024 1:57 PM EDT Images from the original note were not included. Procedure Laterality Anesthesia Coronary Angiogram N/A Left Heart Cath N/A Angioplasy w/Stent- Coronary N/A Angioplasty - Intravascular Lithotripsy - Coronary N/A Pre Procedure Diagnosis systolic dysfunction Post Procedure Diagnosis CAD Conclusion Impression: Severe 3 vessel coronary artery disease Patent stent in LCX-OM1 with no significant ISR 100% occluded ostial RCA with left to right collaterals High grade stenosis of prox-mid LAD High grade stenosis of D1 Successful percutaneous coronary intervention of LAD with cutting balloon, shockwave lithotripsy and TIFFANIE x 1 Successful percutaneous coronary intervention of D1 with TIFFANIE x 2 IVUS imaging of LAD Unable to rescue jailed D1 behind LAD stent despite multiple attempts with residual ostial 80% stenosis Normal left heart filling pressures Recommendations: Continue clopidogrel indefinitely Target LDL<70 mg/dL with a high-intensity statin Optimal lifestyle habits including smoking cessation, adopting a Mediterranean diet, and regular moderate-intensity exercise (>3 hours weekly) Participation in cardiac rehabilitation Optimal BP <120/80 mm Hg Continue P2Y12 and systemic anti-coagulation, but hold aspirin to minimize bleeding risk Appropriate use criteria Indication for PCI: NSTEMI/UA. Coronary Findings Diagnostic Dominance: Right Left Main The vessel was visualized by angiography, is moderate in size and is angiographically normal. Left Anterior Descending Prox LAD to Mid LAD lesion is 80% stenosed. Culprit lesion. DAVID flow is 3. The lesion is type C and located at the bifurcation. The Bell classification is 1,1,1 - main branch proximal and distal with side branch. Previously placed Mid LAD stent of unknown type is widely patent. First Diagonal Branch 1st Diag lesion is 90% stenosed. DAVID flow is 3. The lesion is type C and located at the bifurcation. The Bell classification is 1,1,1 - main branch proximal and distal with side branch. Left Circumflex Previously placed Ost Cx to Prox Cx stent of unknown type is widely patent. First Obtuse Marginal Branch Previously placed 1st Mrg stent of unknown type is widely patent. Right Coronary Artery Prox RCA lesion is 100% stenosed. Right Posterior Descending Artery Collaterals RPDA filled by collaterals from Dist LAD. Intervention Prox LAD to Mid LAD lesion Angioplasty Angioplasty was performed prior to stent deployment. Maximum pressure: 12 maite. Supplies used: BALLOON 3.50 X 30 NC EMERGE RX Angioplasty Angioplasty was performed prior to stent deployment. Maximum pressure: 12 maite. Supplies used: BALLOON 3.50 X 15 WOLVERINE MR Angioplasty Angioplasty was performed prior to stent deployment. Maximum pressure: 12 maite. Supplies used: BALLOON 4.00 X 20 NC EMERGE RX Angioplasty Angioplasty using intravascular lithotripsy was performed. Supplies used: BALLOON 4.00 X 12MM SHOCKWAVE C2 INTRA LITHO CATH Stent Stent was successfully placed. Stent was deployed by way of balloon expansion. Supplies used: STENT 4.00 X 28 SYNERGY MEGATRON MR Angioplasty Supplies used: BALLOON 4.00 X 20 NC EMERGE RX Angioplasty Angioplasty was performed independent of stent deployment. Maximum pressure: 12 maite. Inflation time: 180 sec. Supplies used: BALLOON 2.00 X 12 NC EMERGE RX Post-Intervention Lesion Assessment The intervention was successful. The guidewire crossed the lesion. Device was deployed. Post-intervention DAVID flow is 3. There were no complications. Ultrasound (IVUS) was performed. Minimum stent area: 10.4 mm . Ultrasound supply: CATH 5FR OPTICROSS 5 HD ULTRASOUND BAGLESS. The stent appears adequately expanded by IVUS. The stent demonstrates adequate apposition by IVUS. Minimal plaque burden was detected. There is a 0% residual stenosis post intervention. 1st Diag lesion Angioplasty Angioplasty was performed prior to stent deployment. Maximum pressure: 12 maite. Supplies used: BALLOON 2.50 X 20 NC EMERGE RX Stent Stent was successfully placed. Stent was deployed by way of balloon expansion. Supplies used: STENT 2.50 X 28 SYNERGY XD MR Angioplasty Maximum pressure: 12 maite. Supplies used: BALLOON 2.75 X 20 NC EMERGE RX Stent Stent was successfully placed. Stent was deployed by way of balloon expansion. Maximum pressure: 18atm. Supplies used: STENT 2.75 X 08 SYNERGY XD MR Angioplasty Maximum pressure: 18 maite. Supplies used: BALLOON 1.5 X 12MM EMERGE PUSH RX Angioplasty Supplies used: BALLOON 1.00 X 10 SAPPHIRE II PRO PTCA Angioplasty Maximum pressure: 6 maite. Supplies used: BALLOON 1.20 X 08 EMERGE PUSH RX Angioplasty Supplies used: BALLOON 1.00 X 08 SAPPHIRE II PRO OTW Angioplasty Supplies used: BALLOON 1.00 X 08 SAPPHIRE II PRO OTW Post-Intervention Lesion Assessment The intervention was successful. The guidewire crossed the lesion. Device was not deployed. Post-intervention DAVID flow is 3. There were no complications. There is a 80% residual stenosis post intervention. Wall Motion Left Heart Findings Left Ventricle LV systolic pressure is normal. LV end diastolic pressure is normal. Left Atrium Mitral Valve Aortic Valve Complications No complications were associated with this study. Documented by Melba Singh MD - 06/21/2024 1:56 PM * Heather Granger RN - 06/19/2024 1:39 PM EDTAssociated Order(s): HEMODIALYSIS INPATIENT Hemodialysis tx complete Hypotensive at times corrected with goal adjustments and NS bolus UF 2100 Pre tx wt-132.4kg Post tx wt-129.4kg Post tx vitals-136/69 t-98.6 p-78 rr-18 * Heather Granger RN - 06/17/2024 2:47 PM EDTAssociated Order(s): HEMODIALYSIS INPATIENT Hemodialysis tx complete without complications over 3hrs using a 3k bath Tx start-08:23 Tx complete-11:24 Pre tx wt-135.1kg Post tx wt-132.6kg UF 2.5kg Post tx vitals-131/74 t-98.2 p-70 r-18 * Dariusz Modi MD - 06/16/2024 2:00 PM EDT Vascular & Interventional Radiology Provided By [facility] FOR HEALTHCARE PROVIDER USE ONLY: Interventional Radiology Department @ [facility]: [phone] Interventional Radiology Department @ [facility]: [phone] Interventional Radiology Department @ : [phone] 07/06 VIR physician contact: [phone]) Weekday/weekend VIR nurse practitioner contact @ [facility]: [phone] FOR PATIENT AND PROVIDERS: [facility]: [phone] [email or web address] HISTORY: Renal failure PROCEDURE: Tunneled dialysis catheter FINDINGS: Right jugular tunneled HD catheter - ready for use PLAN: To floor Date: 06/16/24 Patient Name: Lorenzo Amato Patient : 1970 Physician: Dariusz Modi MD Sedation Plan: Moderate ASA Classification: ASA 2 - Patient with mild systemic disease with no functional limitations Mallampati Classification: Class I: The entire tonsillar pillars, uvula, hard and soft palates are visualized [place] Protocol: Pre-Procedural verification: Correct patient, correct site and correct procedure confirmed. H&P or interval update complete and in medical record. Informed consent form completed and signed. Radiology images, labs and pathology reviewed with appropriate identifiers (when applicable). Site Marking: N/A Time Out: PERFORMED Complications: None Full report to follow documented in this [id number] Note* Quick Note - Roslyn Enciso CNP - 06/21/2024 4:07 PM EDT Patient with TR band intact to right radial, no bleeding or hematoma noted, pulse palpable, currently receiving HD, patient denies any chest pain or SOB. All questions and concerns addressed. Vital signs stable. [facility] Work Phone: [phone]) 861-859208-07-2024 Procedure note* Melba Singh MD - 06/21/2024 1:57 PM EDT Images from the original note were not included. Procedure Laterality Anesthesia Coronary Angiogram N/A Left Heart Cath N/A Angioplasy w/Stent- Coronary N/A Angioplasty - Intravascular Lithotripsy - Coronary N/A Pre Procedure Diagnosis systolic dysfunction Post Procedure Diagnosis CAD Conclusion Impression: Severe 3 vessel coronary artery disease Patent stent in LCX-OM1 with no significant ISR 100% occluded ostial RCA with left to right collaterals High grade stenosis of prox-mid LAD High grade stenosis of D1 Successful percutaneous coronary intervention of LAD with cutting balloon, shockwave lithotripsy and TIFFANIE x 1 Successful percutaneous coronary intervention of D1 with TIFFANIE x 2 IVUS imaging of LAD Unable to rescue jailed D1 behind LAD stent despite multiple attempts with residual ostial 80% stenosis Normal left heart filling pressures Recommendations: Continue clopidogrel indefinitely Target LDL<70 mg/dL with a high-intensity statin Optimal lifestyle habits including smoking cessation, adopting a Mediterranean diet, and regular moderate-intensity exercise (>3 hours weekly) Participation in cardiac rehabilitation Optimal BP <120/80 mm Hg Continue P2Y12 and systemic anti-coagulation, but hold aspirin to minimize bleeding risk Appropriate use criteria Indication for PCI: NSTEMI/UA. Coronary Findings Diagnostic Dominance: Right Left Main The vessel was visualized by angiography, is moderate in size and is angiographically normal. Left Anterior Descending Prox LAD to Mid LAD lesion is 80% stenosed. Culprit lesion. DAVID flow is 3. The lesion is type C and located at the bifurcation. The Bell classification is 1,1,1 - main branch proximal and distal with side branch. Previously placed Mid LAD stent of unknown type is widely patent. First Diagonal Branch 1st Diag lesion is 90% stenosed. DAVID flow is 3. The lesion is type C and located at the bifurcation. The Bell classification is 1,1,1 - main branch proximal and distal with side branch. Left Circumflex Previously placed Ost Cx to Prox Cx stent of unknown type is widely patent. First Obtuse Marginal Branch Previously placed 1st Mrg stent of unknown type is widely patent. Right Coronary Artery Prox RCA lesion is 100% stenosed. Right Posterior Descending Artery Collaterals RPDA filled by collaterals from Dist LAD. Intervention Prox LAD to Mid LAD lesion Angioplasty Angioplasty was performed prior to stent deployment. Maximum pressure: 12 maite. Supplies used: BALLOON 3.50 X 30 NC EMERGE RX Angioplasty Angioplasty was performed prior to stent deployment. Maximum pressure: 12 maite. Supplies used: BALLOON 3.50 X 15 WOLVERINE MR Angioplasty Angioplasty was performed prior to stent deployment. Maximum pressure: 12 maite. Supplies used: BALLOON 4.00 X 20 NC EMERGE RX Angioplasty Angioplasty using intravascular lithotripsy was performed. Supplies used: BALLOON 4.00 X 12MM SHOCKWAVE C2 INTRA LITHO CATH Stent Stent was successfully placed. Stent was deployed by way of balloon expansion. Supplies used: STENT 4.00 X 28 SYNERGY MEGATRON MR Angioplasty Supplies used: BALLOON 4.00 X 20 NC EMERGE RX Angioplasty Angioplasty was performed independent of stent deployment. Maximum pressure: 12 maite. Inflation time: 180 sec. Supplies used: BALLOON 2.00 X 12 NC EMERGE RX Post-Intervention Lesion Assessment The intervention was successful. The guidewire crossed the lesion. Device was deployed. Post-intervention DAVID flow is 3. There were no complications. Ultrasound (IVUS) was performed. Minimum stent area: 10.4 mm . Ultrasound supply: CATH 5FR OPTICROSS 5 HD ULTRASOUND BAGLESS. The stent appears adequately expanded by IVUS. The stent demonstrates adequate apposition by IVUS. Minimal plaque burden was detected. There is a 0% residual stenosis post intervention. 1st Diag lesion Angioplasty Angioplasty was performed prior to stent deployment. Maximum pressure: 12 maite. Supplies used: BALLOON 2.50 X 20 NC EMERGE RX Stent Stent was successfully placed. Stent was deployed by way of balloon expansion. Supplies used: STENT 2.50 X 28 SYNERGY XD MR Angioplasty Maximum pressure: 12 maite. Supplies used: BALLOON 2.75 X 20 NC EMERGE RX Stent Stent was successfully placed. Stent was deployed by way of balloon expansion. Maximum pressure: 18atm. Supplies used: STENT 2.75 X 08 SYNERGY XD MR Angioplasty Maximum pressure: 18 maite. Supplies used: BALLOON 1.5 X 12MM EMERGE PUSH RX Angioplasty Supplies used: BALLOON 1.00 X 10 SAPPHIRE II PRO PTCA Angioplasty Maximum pressure: 6 maite. Supplies used: BALLOON 1.20 X 08 EMERGE PUSH RX Angioplasty Supplies used: BALLOON 1.00 X 08 SAPPHIRE II PRO OTW Angioplasty Supplies used: BALLOON 1.00 X 08 SAPPHIRE II PRO OTW Post-Intervention Lesion Assessment The intervention was successful. The guidewire crossed the lesion. Device was not deployed. Post-intervention DAVID flow is 3. There were no complications. There is a 80% residual stenosis post intervention. Wall Motion Left Heart Findings Left Ventricle LV systolic pressure is normal. LV end diastolic pressure is normal. Left Atrium Mitral Valve Aortic Valve Complications No complications were associated with this study. Documented by Melba Singh MD - 06/21/2024 1:56 PM [id number] Note* Quick Note - Roslyn Enciso CNP - 06/21/2024 8:50 AM EDT Patient to remain n.p.o. for cardiac cath planned later today, updated nephrology, okay to do hemodialysis after cardiac cath is completed. Continue IV heparin drip. Patient and family members updated on tentative time of 2:30 PM, all questions and concerns addressed. Primary RN updated on plan. [id number] Note* Quick Note - Roslyn Enciso CNP - 06/20/2024 8:45 AM EDT Patient resting in bed talking to family members. Patient denies any chest pain. Consented for cardiac cath, all questions and concerns addressed. No known allergies to iodine/iodine. Upon chart review noted that patient received Eliquis at [address] Singh updated. Recommend to place cath on hold until tomorrow, will start IV heparin drip in the interim for history of DVT/PE. Primary RN updated. [id number] Procedure note* Heather Granger RN - 06/19/2024 1:39 PM EDT Associated Order(s): HEMODIALYSIS INPATIENT Hemodialysis tx complete Hypotensive at times corrected with goal adjustments and NS bolus UF 2100 Pre tx wt-132.4kg Post tx wt-129.4kg Post tx vitals-136/69 t-98.6 p-78 rr-18 [id number] Hospital Discharge instructions* Discharge Instructions* Christa Alex RN - 06/19/2024 1:22 PM EDT [facility] Post Cardiac Catheterization Discharge Instructions Wrist Site Care: Leave Bandage in place the night of your catheterization. Watch for any bleeding or oozing from thesite. If this occurs, lie flat and place direct pressure on the bandage for 20 minutes. If bleedingreoccurs call [phone]. Remove your bandage the following morning and apply a Band-Aid over the site, so it has a complete seal over the area. This is to be done for 5 days with a new Band-Aid each time. Soreness and bruising are to be expected. Do not submerge catheterization site in water for 5 to 7 days following the procedure. Examples include bathing, swimming, sitting in a Jacuzzi, or dishwashing. You may shower 24 hours after the procedure. Call [phone] if you notice any of the following: Bleeding or increased swelling at the puncture site Redness Drainage (either pus or blood) Increased soreness around the wound A fever over 100 F Numbness, coldness, color change, or tingling pain in your arm or leg below the wound Light headedness, dizziness, weakness of arms or legs, or difficulty with speech Chest pain, pressure, tightness or burning in the chest, arm jaw or stomach Activity: Limit your activity following the catheterization as follows: No lifting over 5 pounds for 7 days Do not manipulate the wrist for 24 hours No running, jogging, climbing (more than a few stairs) for 7 days No driving or operating heavy machinery for a minimum of 48 hours Do not smoke or use tobacco products Discuss any other activity concerns/restrictions with your nurse or physician Medications: Continue taking all the current medications as directed on medication reconciliation record or unless otherwise instructed to by your physician. If you were prescribed Plavix (Clopidogrel), Effient (Prasugrel), or Brilinta (Ticagrelar) DO NOT STOP taking this medication unless instructed by your car diologist. If you do not have prescription coverage and need prescription assistance, please call [phone]. Next office visit: 06/22/[address] Oro Heart Failure Education Please weigh yourself every morning, after using the restroom and before eating. Have on the same amount of clothing each time and place your scale on a hard, flat surface. Check your blood pressure and heart rate 1-2 hours after taking your morning medications. Eating a diet high in sodium (salt) is likely to cause you to retain fluid (swell up) and can make you more short of breath. Avoid the use of a salt shaker and avoid foods that are very high in salt (more than 600 mg per serving). Quit smoking, if you smoke. Avoid or limit alcohol and caffeine. Read your food labels, the recommendation is for less than 2,000 mg of sodium per day. Don't over drink fluids. You should have about 2 liters of fluid per day (8-8oz cups or 64 oz). Less can make you dehydrated and more can make you retain fluid (swell). Tell your doctor right away if: You gain three or more pounds in a day or so You see swelling in your feet, ankles or other parts of your body It s hard to breathe You can t do what you could do the day before If you are not able to get your medications Other ways to tell that your heart might not be working the way it should be include: Coughing up pinkish, blood-tinged mucus Confusion, difficulty thinking, dizziness or lightheadedness Changes in your eating habits or appetite It s hard to breathe Contact your Cardiology team if you have any questions or concerns. Bring a log of your daily weights, blood pressures, and heart rate readings to your follow up appointments. * Discharge Instr - AVS First Page* Nathalia Morrissey CNP - 06/22/2024 11:08 AM EDT Please follow up with your body and fender worker for insulin pump and diabetes management. Encourage you to enter the carbohydrate grams for the food you eat into your insulin pump so that you get meal bolus insulin with the carbohydrates. You may consider discussing with your body and fender worker if seeing a dietitian would be helpful to help with carbohydrate counting. * Attachments The following attachments cannot be sent through Care Everywhere. * Heart Failure ([place] Citizen) * Renal Disease: End-Stage Diet ([place] Citizen) documented in this [id number] Consult note* Anita Barahona MD - 06/19/2024 11:58 AM EDTAssociated Order(s): IP CONSULT TO CARDIOLOGY General Cardiology Inpatient Cardiology Consult Note Heart & Vascular [facility] 06/15/2024 Anita Barahona MD [address] [facility] [id number] CARDIOLOGY CONSULT NOTE Patient Name: Lorenzo Amato Admit Date: 8001219 MR #: [id number] : 1970 Physicians: Lion Carlson MD (Family) Kindly asked to evaluate Lorenzo Amato for chief complaint of new onset systolic chf . ASSESSMENT and PLAN: New systolic dysfunction Coronary artery disease End-stage renal disease on peritoneal dialysis with transition to hemodialysis New systolic dysfunction, of course concern for progressive coronary artery disease Thankfully patient not having any symptoms of angina, so if anything this would be stable disease Will start guideline directed medical therapy by transitioning metoprolol to tartrate to metoprololsuccinate Starting Entresto, appreciate nephrology involvement Patient will be candidate for SGLT2 inhibitor as well however we will start that outpatient in casewe need to do any procedures requiring anesthesia Hold on spironolactone given renal function If patient will be with us tomorrow we will plan for left heart catheterization, if not would be okay to do outpatient, he would prefer to talk to 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 Talbert prior to agreeing to any procedure The following Vizient risk variables were noted and present on admission: Admitted with these risk variables:Chronic Kidney Disease and Fluid Overload. Please see assessmentand plan for further details. Thank you for this interesting clinical case. We will continue to follow along unless otherwise noted. Anita Barahona MD, [facility] Cardiovascular Medicine [facility] History of Present Illness: This is a 54-year-old gentleman with a past medical history of diabetes, coronary artery disease, hypertension, obstructive sleep apnea, end-stage renal disease who presented to the hospital due to anasarca, planning to start hemodialysis with indwelling catheter after difficulties managing volume status with peritoneal dialysis. Cardiology has been asked to evaluate patient due to newly diagnosed systolic dysfunction. Patient states that he has not had an echocardiogram in recent memory, however historically has been told that his ejection fraction is normal. He does have history of stenting, last [address] in [address] Talbert, there had been a comment of an abnormal EKG however with patient's borderline renal function coronary evaluation had not been able to be performed. Patientstates that at this time he is feeling improved, was having issues with orthopnea and lower extremity edema as well as abdominal bloating however has lost about 13 pounds with dialysis throughout theweekend. No chest pressure. Not having to take any nitro. 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 Gracie Miller Venous embolism lungs and legs Vitamin D deficiency Past Surgical History: Procedure Laterality Date APPENDECTOMY COLONOSCOPY last was 2014, polyps, done in [place], 2 procdures CORONARY ANGIOPLASTY WITH STENT PLACEMENT has had 2 surgeries, 2019 most recent ESOPHAGOGASTRODUODENOSCOPY last was done in [place], gastic tumor, INSULIN PUMP AND GLUCOSE SENSOR IR IVC FILTER PLACEMENT 2012 for Blood clots MT LAPS INSERTION TUNNELED INTRAPERITONEAL CATHETER N/A 05/19/2024 PD cath, ESRF.....Dr. Brian APONTETOPj TEETH EXTRACTION TRANSFUSION BLOOD PRODUCT VASECTOMY Family History Problem Relation Age of Onset Uterine cancer Mother Heart disease Father Rheum arthritis Brother Coronary artery disease Brother Social History Socioeconomic History Marital status: Tobacco Use Smoking status: Never Smokeless tobacco: Former Types: Chew Vaping Use Vaping status: Never Used Substance and Sexual Activity Alcohol use: Not Currently Comment: did drank occassionally in past Drug use: Never Social Determinants of Health Financial Resource Strain: Low Risk (03/17/2024) Received from [facility] Overall Financial Resource Strain (CARDIA) Difficulty of Paying Living Expenses: Not very hard Food Insecurity: No Food Insecurity (06/15/2024) Hunger Vital Sign Worried About Running Out of Food in the Last Year: Never true Ran Out of Food in the Last Year: Never true Transportation Needs: No Transportation Needs (06/15/2024) PRAPARE - Transportation Lack of Transportation (Medical): No Lack of Transportation (Non-Medical): No Housing Stability: Low Risk (06/15/2024) Housing Stability Vital Sign Unable to Pay for Housing in the Last Year: No Number of Times Moved in the Last Year: 1 Homeless in the Last Year: No Tobacco & Smokeless: Tobacco Use Smoking status: Never Smokeless tobacco: Former Types: Chew Allergy Information: I have reviewed the patient's allergies. Lisinopril and Toradol [ketorolac] Home Medications: Outpatient Medications as of 06/19/2024 Medication Sig atorvastatin (LIPITOR) 80 MG tablet Take 1 (one) tablet (80 mg total) by mouth nightly . busPIRone (BUSPAR) 15 MG tablet 1 (one) tablet (15 mg total) 3 (three) times a day . clopidogreL (PLAVIX) 75 mg tablet Take 1 (one) tablet (75 mg total) by mouth every morning Start: 05/22/24. DULoxetine (CYMBALTA) 60 MG capsule Take 1 (one) capsule (60 mg total) by mouth every morning . Eliquis 5 mg Tab Take 1 (one) tablet (5 mg total) by mouth 2 (two) times a day Start: 05/22/24. ergocalciferol (Vitamin D2) 1,250 mcg (50,000 unit) capsule Take 1 (one) capsule (50,000 Units total) by mouth once a week On Mondays . fluticasone propionate (FLONASE) 50 mcg/actuation nasal spray Instill 2 (two) sprays into each nostril daily as needed for allergies . furosemide (LASIX) 40 MG tablet Take 1 (one) tablet (40 mg total) by mouth 2 (two) times a day . gentamicin (GARAMYCIN) 0.3 % ophthalmic solution by Other route See Admin Instructions 1 TO 2 dropstopically to PERITONEAL DIALYSIS EXIT SITE once daily if needed . hydrALAZINE (APRESOLINE) 100 MG tablet Take 1 (one) tablet (100 mg total) by mouth 2 (two) times a day . insulin lispro (AdmeLOG,HumaLOG) 100 unit/mL injection Via insulin pump Reasons: max dose 250units daily. meclizine (ANTIVERT) 25 mg tablet Take 1 (one) tablet (25 mg total) by mouth 3 (three) times a day as needed for nausea . metoprolol tartrate (LOPRESSOR) 100 MG tablet Take 1 (one) tablet (100 mg total) by mouth 2 (two) times a day . octreotide ER (SandoSTATIN [place]) 30 mg injection Inject 30 (thirty) mg into the shoulder, thigh, or buttocks every 28 days . omeprazole (PRILOSEC) 40 MG capsule Take 1 (one) capsule (40 mg total) by mouth 2 (two) times a day. senna-docusate (SENNA-S) 8.6-50 mg Take 1 (one) tablet by mouth 2 (two) times a day as needed for constipation . triamcinolone (KENALOG) 0.1 % cream Apply topically 2 (two) times a day as needed . glucagon 1 mg/mL SolR Inject 1 mL (1 mg total) into the shoulder, thigh, or buttocks as needed . OCTREOTIDE ACETATE SUBQ Inject 30 mg under the skin every 28 days . Inpatient Medications: Current Facility-Administered Medications: acetaminophen (TYLENOL) tablet 650 mg, 650 mg, Oral, Q4H PRN, Geris, Shady, DO, 650 mg at 06/18/241920 aluminum-magnesium hydroxide-simethicone (MAALOX PLUS) 200-200-20 mg/5 mL suspension 30 mL, 30 mL, Oral, Q4H PRN, Geris, Shady, DO apixaban (ELIQUIS) tablet 5 mg, 5 mg, Oral, BID, Liana Cifuentes MD, 5 mg at 06/18/241920 atorvastatin (LIPITOR) tablet 80 mg, 80 mg, Oral, Nightly, Sherman Zelaya, DO, 80 mg at 06/18/241920 busPIRone (BUSPAR) tablet 15 mg, 15 mg, Oral, Q8H LUIS, Sherman Zelaya, DO, 15 mg at 06/19/24542 clopidogreL (PLAVIX) tablet 75 mg, 75 mg, Oral, QAM, Garcia, Sherman, DO, 75 mg at 06/18/24837 DULoxetine (CYMBALTA) DR capsule 60 mg, 60 mg, Oral, QAM, Sherman Zelaya, DO, 60 mg at 06/18/24837 ergocalciferol capsule 50,000 Units, 50,000 Units, Oral, Weekly, Sherman Zealya, furosemide (LASIX) injection 60 mg, 60 mg, Intravenous, Q12H [facility], Gracie Miller MD, 60 mg at 06/19/24542 hydrALAZINE (APRESOLINE) tablet 100 mg, 100 mg, Oral, BID, Sherman Zelaya, , 100 mg at 06/18/241953 metoprolol tartrate (LOPRESSOR) tablet 100 mg, 100 mg, Oral, BID, Sherman Zelaya, , 100 mg at 06/18/241954 ondansetron (ZOFRAN-ODT) disintegrating tablet 4 mg, 4 mg, Oral, Q6H PRN OR ondansetron (ZOFRAN) injection 4 mg, 4 mg, Intravenous, Q6H PRN, Sherman Zelaya, pantoprazole (PROTONIX) EC tablet 40 mg, 40 mg, Oral, Daily, Sherman Zelaya, , 40 mg at 06/18/24837 senna (SENOKOT) tablet 8.6 mg, 1 tablet, Oral, BID PRN, Sherman Zelaya, [] Nursing apply and maintain TEGO caps for hemodialysis, , , Q Week AND sodium chloride(PF) (NS) flush 10-20 mL, 10-20 mL, Intravenous, Once in dialysis, Delroy Fletcher MD, 20 mL at 06/19/24 0900 [] Nursing apply and maintain TEGO caps for hemodialysis, , , Q Week AND sodium chloride(PF) (NS) flush 10-20 mL, 10-20 mL, Intravenous, Once in dialysis, Delroy Fletcher MD, 20 mL at 06/19/24 0815 sodium chloride 0.9% (NS), 1,000-3,000 mL, Hemodialysis, PRN, Delroy Fletcher MD, 1,000 mLat 06/19/24 0900 subcutaneous insulin pump Misc, , Miscellaneous, Continuous, Mark Vasquez MD Review of Systems: A 12 system review of systems was performed, pertinent positives and negatives noted in HPI Physical Examination: BP (!) 149/68 Pulse 75 Temp 97.8 F (36.6 C) (Oral) Resp 18 Ht 5' 9 Wt (!) 139.7 kg (307 lb 15.7 oz) SpO2 96% BMI 45.48 kg/m Constitutional: Male, no acute distress Neck: No elevated jugular venous distension Cardiovascular: Regular rate and rhythm Pulmonary/Chest: Normal respiratory effort, lung sounds are generally clear. Extremities: No edema Neurological: AOx3, moving all extremities normally Skin: Skin is warm and dry, normal hair pattern Psychiatric: Normal mood and affect, appropriate conversation Intake/Output last 3 shifts: I/O last 3 completed shifts: In: 572.3 [IV Piggyback:572.3] Out: 450 [Urine:450] Laboratory Data Reviewed: Lab Results Component Value Date GLUCOSE 225 (H) 06/19/2024 CALCIUM 8.5 06/19/2024 NA 133 (L) 06/19/2024 K 4.5 06/19/2024 CL 97 (L) 06/19/2024 BUN 35 (H) 06/19/2024 CREATININE 5.14 (H) 06/19/2024 Results from last 7 days Lab Units 06/19/24 0446 WBC K/mcL 7.84 HGB g/dL 8.3* HCT % 27.7* PLT K/mcL 171 No results found for: HGBA1C No results found for: CHOL , LDLCALC , LDLDIRECT , TRIG , HDL Lab Results Component Value Date ALBUMIN 3.1 (L) 06/19/2024 Imaging: Pertinent studies reviewed and relevant findings noted. Cardiovascular Studies: 2019 Cardiac eval Summary Left ventricle is normal in size. Severe concentric left ventricular hypertrophy. Global left ventricular systolic function is normal with an estimated ejection fraction of 60 % . Evidence of diastolic dysfunction. Left atrium is at upper limits of normal. Right atrium is mildly dilated . Normal right ventricular size and function. Aortic valve leaflets are mildly thickened. No aortic stenosis. Thickened mitral valve leaflets. Mild mitral regurgitation. 1. Abnormal myocardial perfusion study. There is a moderate/large perfusion defect of moderate/severe intensity in the anterolateral, lateral, inferolateral, inferior region(s) during stress and rest imaging, which is most consistent with an old myocardial infarction with judy-infarct ischemia. 2. Global left ventricular systolic function was abnormal with an EF of 36% with regional wall motion abnormalities. Overall these results are most consistent with 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/high risk for significant coronary artery disease. Additional testing including cardiac catheterization may be indicated. The results of this test were discussed with Dr. Oro on 09/29/2019 at 10:57 a.m. Telemetry: NSR [facility] Work Phone: [phone] 892-890108-05-2024 Consult note* Anita Barahona MD - 06/19/2024 11:58 AM EDTAssociated Order(s): IP CONSULT TO CARDIOLOGY General Cardiology Inpatient Cardiology Consult Note Heart & Vascular [facility] 06/15/2024 Anita Barahona MD [address] [place] [phone] CARDIOLOGY CONSULT NOTE Patient Name: Lorenzo Amato Admit Date: 8001219 MR #: [id number] : 1970 Physicians: Lion Carlson MD (Family) Kindly asked to evaluate Lorenzo Amato for chief complaint of new onset systolic chf . ASSESSMENT and PLAN: New systolic dysfunction Coronary artery disease End-stage renal disease on peritoneal dialysis with transition to hemodialysis New systolic dysfunction, of course concern for progressive coronary artery disease Thankfully patient not having any symptoms of angina, so if anything this would be stable disease Will start guideline directed medical therapy by transitioning metoprolol to tartrate to metoprololsuccinate Starting Entresto, appreciate nephrology involvement Patient will be candidate for SGLT2 inhibitor as well however we will start that outpatient in casewe need to do any procedures requiring anesthesia Hold on spironolactone given renal function If patient will be with us tomorrow we will plan for left heart catheterization, if not would be okay to do outpatient, he would prefer to talk to 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 Talbert prior to agreeing to any procedure The following Vizient risk variables were noted and present on admission: Admitted with these risk variables:Chronic Kidney Disease and Fluid Overload. Please see assessmentand plan for further details. Thank you for this interesting clinical case. We will continue to follow along unless otherwise noted. Anita Barahona MD, [facility] Cardiovascular Medicine [facility] History of Present Illness: This is a 54-year-old gentleman with a past medical history of diabetes, coronary artery disease, hypertension, obstructive sleep apnea, end-stage renal disease who presented to the hospital due to anasarca, planning to start hemodialysis with indwelling catheter after difficulties managing volume status with peritoneal dialysis. Cardiology has been asked to evaluate patient due to newly diagnosed systolic dysfunction. Patient states that he has not had an echocardiogram in recent memory, however historically has been told that his ejection fraction is normal. He does have history of stenting, last 1 in 2019[address] Talbert, there had been a comment of an abnormal EKG however with patient's borderline renal function coronary evaluation had not been able to be performed. Patientstates that at this time he is feeling improved, was having issues with orthopnea and lower extremity edema as well as abdominal bloating however has lost about 13 pounds with dialysis throughout theweekend. No chest pressure. Not having to take any nitro. 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 Gracie Miller Venous embolism lungs and legs Vitamin D deficiency Past Surgical History: Procedure Laterality Date APPENDECTOMY COLONOSCOPY last was 2014, polyps, done in [place], 2 procdures CORONARY ANGIOPLASTY WITH STENT PLACEMENT has had 2 surgeries, 2019 most recent ESOPHAGOGASTRODUODENOSCOPY last was done in [place], gastic tumor, INSULIN PUMP AND GLUCOSE SENSOR IR IVC FILTER PLACEMENT 2012 for Blood clots MT LAPS INSERTION TUNNELED INTRAPERITONEAL CATHETER N/A 05/19/2024 PD cath, ESRF.....Dr. Brian Arevalo TATTOO TEETH EXTRACTION TRANSFUSION BLOOD PRODUCT VASECTOMY Family History Problem Relation Age of Onset Uterine cancer Mother Heart disease Father Rheum arthritis Brother Coronary artery disease Brother Social History Socioeconomic History Marital status: Tobacco Use Smoking status: Never Smokeless tobacco: Former Types: Chew Vaping Use Vaping status: Never Used Substance and Sexual Activity Alcohol use: Not Currently Comment: did drank occassionally in past Drug use: Never Social Determinants of Health Financial Resource Strain: Low Risk (03/17/2024) Received from [facility] Overall Financial Resource Strain (CARDIA) Difficulty of Paying Living Expenses: Not very hard Food Insecurity: No Food Insecurity (06/15/2024) Hunger Vital Sign Worried About Running Out of Food in the Last Year: Never true Ran Out of Food in the Last Year: Never true Transportation Needs: No Transportation Needs (06/15/2024) PRAPARE - Transportation Lack of Transportation (Medical): No Lack of Transportation (Non-Medical): No Housing Stability: Low Risk (06/15/2024) Housing Stability Vital Sign Unable to Pay for Housing in the Last Year: No Number of Times Moved in the Last Year: 1 Homeless in the Last Year: No Tobacco & Smokeless: Tobacco Use Smoking status: Never Smokeless tobacco: Former Types: Chew Allergy Information: I have reviewed the patient's allergies. Lisinopril and Toradol [ketorolac] Home Medications: Outpatient Medications as of 06/19/2024 Medication Sig atorvastatin (LIPITOR) 80 MG tablet Take 1 (one) tablet (80 mg total) by mouth nightly . busPIRone (BUSPAR) 15 MG tablet 1 (one) tablet (15 mg total) 3 (three) times a day . clopidogreL (PLAVIX) 75 mg tablet Take 1 (one) tablet (75 mg total) by mouth every morning Start: 05/22/24. DULoxetine (CYMBALTA) 60 MG capsule Take 1 (one) capsule (60 mg total) by mouth every morning . Eliquis 5 mg Tab Take 1 (one) tablet (5 mg total) by mouth 2 (two) times a day Start: 05/22/24. ergocalciferol (Vitamin D2) 1,250 mcg (50,000 unit) capsule Take 1 (one) capsule (50,000 Units total) by mouth once a week On Mondays . fluticasone propionate (FLONASE) 50 mcg/actuation nasal spray Instill 2 (two) sprays into each nostril daily as needed for allergies . furosemide (LASIX) 40 MG tablet Take 1 (one) tablet (40 mg total) by mouth 2 (two) times a day . gentamicin (GARAMYCIN) 0.3 % ophthalmic solution by Other route See Admin Instructions 1 TO 2 dropstopically to PERITONEAL DIALYSIS EXIT SITE once daily if needed . hydrALAZINE (APRESOLINE) 100 MG tablet Take 1 (one) tablet (100 mg total) by mouth 2 (two) times a day . insulin lispro (AdmeLOG,HumaLOG) 100 unit/mL injection Via insulin pump Reasons: max dose 250units daily. meclizine (ANTIVERT) 25 mg tablet Take 1 (one) tablet (25 mg total) by mouth 3 (three) times a day as needed for nausea . metoprolol tartrate (LOPRESSOR) 100 MG tablet Take 1 (one) tablet (100 mg total) by mouth 2 (two) times a day . octreotide ER (SandoSTATIN LAR Depot) 30 mg injection Inject 30 (thirty) mg into the shoulder, thigh, or buttocks every 28 days . omeprazole (PRILOSEC) 40 MG capsule Take 1 (one) capsule (40 mg total) by mouth 2 (two) times a day. senna-docusate (SENNA-S) 8.6-50 mg Take 1 (one) tablet by mouth 2 (two) times a day as needed for constipation . triamcinolone (KENALOG) 0.1 % cream Apply topically 2 (two) times a day as needed . glucagon 1 mg/mL SolR Inject 1 mL (1 mg total) into the shoulder, thigh, or buttocks as needed . OCTREOTIDE ACETATE SUBQ Inject 30 mg under the skin every 28 days . Inpatient Medications: Current Facility-Administered Medications: acetaminophen (TYLENOL) tablet 650 mg, 650 mg, Oral, Q4H PRN, Garcia, Sherman, DO, 650 mg at 06/18/241920 aluminum-magnesium hydroxide-simethicone (MAALOX PLUS) 200-200-20 mg/5 mL suspension 30 mL, 30 mL, Oral, Q4H PRN, Sherman Zelaya, DO apixaban (ELIQUIS) tablet 5 mg, 5 mg, Oral, BID, Liana Cifuentes MD, 5 mg at 06/18/241920 atorvastatin (LIPITOR) tablet 80 mg, 80 mg, Oral, Nightly, Sherman Zelaya, DO, 80 mg at 06/18/241920 busPIRone (BUSPAR) tablet 15 mg, 15 mg, Oral, Q8H LUIS, Sherman Zelaya, DO, 15 mg at 06/19/24 0543 clopidogreL (PLAVIX) tablet 75 mg, 75 mg, Oral, QAM, Gerariella, Sharisa, DO, 75 mg at 06/18/24 08 DULoxetine (CYMBALTA) DR capsule 60 mg, 60 mg, Oral, QAM, Garcia, Sherman, DO, 60 mg at 06/18/24 08 ergocalciferol capsule 50,000 Units, 50,000 Units, Oral, Weekly, Sherman Zelaya, DO furosemide (LASIX) injection 60 mg, 60 mg, Intravenous, Q12H [facility], Gracie Miller MD, 60 mg at 06/19/24 0543 hydrALAZINE (APRESOLINE) tablet 100 mg, 100 mg, Oral, BID, Geris, Sherman, DO, 100 mg at 06/18/241953 metoprolol tartrate (LOPRESSOR) tablet 100 mg, 100 mg, Oral, BID, Geris, Shady, DO, 100 mg at 06/18/241954 ondansetron (ZOFRAN-ODT) disintegrating tablet 4 mg, 4 mg, Oral, Q6H PRN OR ondansetron (ZOFRAN) injection 4 mg, 4 mg, Intravenous, Q6H PRN, Garcia, Sherman, DO pantoprazole (PROTONIX) EC tablet 40 mg, 40 mg, Oral, Daily, Haiis, Sherman, DO, 40 mg at 06/18/24 0838 senna (SENOKOT) tablet 8.6 mg, 1 tablet, Oral, BID PRN, Sherman Zelaya, DO [] Nursing apply and maintain TEGO caps for hemodialysis, , , Q Week AND sodium chloride(PF) (NS) flush 10-20 mL, 10-20 mL, Intravenous, Once in dialysis, Delroy Fletcher MD, 20 mL at 06/19/24 0900 [] Nursing apply and maintain TEGO caps for hemodialysis, , , Q Week AND sodium chloride(PF) (NS) flush 10-20 mL, 10-20 mL, Intravenous, Once in dialysis, Delroy Fletcher MD, 20 mL at 06/19/24 0815 sodium chloride 0.9% (NS), 1,000-3,000 mL, Hemodialysis, PRN, Delroy Fletcher MD, 1,000 mLat 06/19/24 0900 subcutaneous insulin pump Misc, , Miscellaneous, Continuous, Mark Vasquez MD Review of Systems: A 12 system review of systems was performed, pertinent positives and negatives noted in HPI Physical Examination: BP (!) 149/68 Pulse 75 Temp 97.8 F (36.6 C) (Oral) Resp 18 Ht 5' 9 Wt (!) 139.7 kg (307 lb 15.7 oz) SpO2 96% BMI 45.48 kg/m Constitutional: Male, no acute distress Neck: No elevated jugular venous distension Cardiovascular: Regular rate and rhythm Pulmonary/Chest: Normal respiratory effort, lung sounds are generally clear. Extremities: No edema Neurological: AOx3, moving all extremities normally Skin: Skin is warm and dry, normal hair pattern Psychiatric: Normal mood and affect, appropriate conversation Intake/Output last 3 shifts: I/O last 3 completed shifts: In: 572.3 [IV Piggyback:572.3] Out: 450 [Urine:450] Laboratory Data Reviewed: Lab Results Component Value Date GLUCOSE 225 (H) 06/19/2024 CALCIUM 8.5 06/19/2024 NA 133 (L) 06/19/2024 K 4.5 06/19/2024 CL 97 (L) 06/19/2024 BUN 35 (H) 06/19/2024 CREATININE 5.14 (H) 06/19/2024 Results from last 7 days Lab Units 06/19/24 0446 WBC K/mcL 7.84 HGB g/dL 8.3* HCT % 27.7* PLT K/mcL 171 No results found for: HGBA1C No results found for: CHOL , LDLCALC , LDLDIRECT , TRIG , HDL Lab Results Component Value Date ALBUMIN 3.1 (L) 06/19/2024 Imaging: Pertinent studies reviewed and relevant findings noted. Cardiovascular Studies: 2019 Cardiac eval Summary Left ventricle is normal in size. Severe concentric left ventricular hypertrophy. Global left ventricular systolic function is normal with an estimated ejection fraction of 60 % . Evidence of diastolic dysfunction. Left atrium is at upper limits of normal. Right atrium is mildly dilated . Normal right ventricular size and function. Aortic valve leaflets are mildly thickened. No aortic stenosis. Thickened mitral valve leaflets. Mild mitral regurgitation. 1. Abnormal myocardial perfusion study. There is a moderate/large perfusion defect of moderate/severe intensity in the anterolateral, lateral, inferolateral, inferior region(s) during stress and rest imaging, which is most consistent with an old myocardial infarction with judy-infarct ischemia. 2. Global left ventricular systolic function was abnormal with an EF of 36% with regional wall motion abnormalities. Overall these results are most consistent with 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/high risk for significant coronary artery disease. Additional testing including cardiac catheterization may be indicated. The results of this test were discussed with Dr. Oro on 09/29/2019 at 10:57 a.m. Telemetry: NSR * Nick Watson CNP - 06/17/2024 6:22 AM EDTAssociated Order(s): IP CONSULT TO ENDOCRINOLOGY Patient ID: Patient Name: Lorenzo Amato Admit Date: 06/15/2024 MR #: [id number] : 1970 Current location: 2111 Physicians: Lion Carlson MD (Family); Ananda Gerber RPh,PharmD (Referring) Reason for consult: Type 2 diabetes out of control Assessment/Plan: Dx: Type 2 diabetes, under poor control Currently taking as outpatient: Insulin Pump: Basal Rates: 0000: 6.5 units per hour IC ratio: 0000: 1:2 Sensitivity: 0000: 1: 5 Takes 15 units with each meal Current Hemoglobin A1C= No results found for: HGBA1C NOTES: 06/17: BG and labs reviewed since admission. Patient is on a [employer] insulin pump, settings and placement reviewed by this provider. He is on a very high basal rate. He follows with endocrinology in [facility]. Na: 131; Creat: 4.83; eGFR: 13. CBC: WBC: 8.16; Hgb: 7.3; Hct: 24.5; Plt: 196. Blood Glucoses: 06/16: 173---xxx---104---183 06/17: 276 Plan: 1. Rx changes: none Continue current pump settings. 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 2. Education: Reviewed ABCs of diabetes management (respective goals in parentheses): A1C (7.0-8.0), blood pressure (<130/80), and cholesterol (LDL <100). Referral to Diabetes Education Referral to Nutrition therapy Subjective: Brief HPI: Mr. Amato is a 54-year-old male with a past medical history of type 2 diabetes mellitus,end-stage renal disease, coronary artery disease, hypertension, hyperlipidemia, mL and neuroendocrine tumor. Patient admitted on 06/15/2024 with madalyn. He was started on hemodialysis and has undergone IV diuresis. Patient reports some SOB and edema. Denies chest pain. Patient has had diabetes for 19 years. Diagnosed in 2004. Patient is currently taking insulin via insulin pump. It appears that his outpatient settings include a basal rate of 6.5 units/h. He followswith Dr. Hubert Nowak MD [facility] endocrinology. His last visit with their office was 04/26 when his hemoglobin A1c was 9.0%. Patient has taken Insulin for >5 years, started a pump in 2019. . Currently the patient is receiving insulin via pump with outpatient settings. Blood sugar levels since admission have been ranging from 104-276 mg/dL. Current monitoring regimen: home blood tests - >4 times daily with [employer] sensor. Complications of diabetes include: Retinopathy: Negative Nephropathy: Positive Peripheral Neuropathy: Positive Autonomic Neuropathy: Negative Allergies: Allergies Allergen Reactions Lisinopril Cough Toradol [Ketorolac] Other (See Comments) Kidney failure Home Medications: Outpatient Medications Marked as Taking for the 06/15/24 encounter (Hospital Encounter): acetaminophen (TYLENOL) 500 MG tablet, Take 2 (two) tablets (1,000 mg total) by mouth every 6 (six)hours as needed for pain . atorvastatin (LIPITOR) 80 MG tablet, Take 1 (one) tablet (80 mg total) by mouth nightly . busPIRone (BUSPAR) 15 MG tablet, 1 (one) tablet (15 mg total) 3 (three) times a day . clopidogreL (PLAVIX) 75 mg tablet, Take 1 (one) tablet (75 mg total) by mouth every morning Start: 05/22/24. DULoxetine (CYMBALTA) 60 MG capsule, Take 1 (one) capsule (60 mg total) by mouth every morning . Eliquis 5 mg Tab, Take 1 (one) tablet (5 mg total) by mouth 2 (two) times a day Start: 05/22/24. ergocalciferol (Vitamin D2) 1,250 mcg (50,000 unit) capsule, Take 1 (one) capsule (50,000 Units total) by mouth once a week On Mondays . fluticasone propionate (FLONASE) 50 mcg/actuation nasal spray, Instill 2 (two) sprays into each nostril daily as needed for allergies . furosemide (LASIX) 40 MG tablet, Take 1 (one) tablet (40 mg total) by mouth 2 (two) times a day . gentamicin (GARAMYCIN) 0.3 % ophthalmic solution, by Other route See Admin Instructions 1 TO 2 drops topically to PERITONEAL DIALYSIS EXIT SITE once daily if needed . hydrALAZINE (APRESOLINE) 100 MG tablet, Take 1 (one) tablet (100 mg total) by mouth 2 (two) times aday . insulin lispro (AdmeLOG,HumaLOG) 100 unit/mL injection, Via insulin pump Reasons: max dose 250unitsdaily. meclizine (ANTIVERT) 25 mg tablet, Take 1 (one) tablet (25 mg total) by mouth 3 (three) times a dayas needed for nausea . metoprolol tartrate (LOPRESSOR) 100 MG tablet, Take 1 (one) tablet (100 mg total) by mouth 2 (two) times a day . octreotide ER (SandoSTATIN LAR Depot) 30 mg injection, Inject 30 (thirty) mg into the shoulder, thigh, or buttocks every 28 days . omeprazole (PRILOSEC) 40 MG capsule, Take 1 (one) capsule (40 mg total) by mouth 2 (two) times a day . senna-docusate (SENNA-S) 8.6-50 mg, Take 1 (one) tablet by mouth 2 (two) times a day as needed for constipation . triamcinolone (KENALOG) 0.1 % cream, Apply topically 2 (two) times a day as needed . Current Medications: atorvastatin 80 mg Oral Nightly busPIRone 15 mg Oral Q8H LUIS clopidogreL 75 mg Oral QAM DULoxetine 60 mg Oral QAM [START ON 06/19/2024] ergocalciferol 50,000 Units Oral Weekly furosemide 60 mg Intravenous Q12H LUIS hydrALAZINE 100 mg Oral BID iron sucrose (VENOFER) 300 mg in sodium chloride 0.9% (NS) 250 mL IVPB 300 mg Intravenous Daily metoprolol tartrate 100 mg Oral BID pantoprazole 40 mg Oral Daily sodium chloride (PF) 10-20 mL Intravenous Once in dialysis acetaminophen, aluminum-magnesium hydroxide-simethicone, heparin, ondansetron OR ondansetron, perflutren lipid microspheres, senna, sodium chloride 0.9% Review of Systems: Review of Systems Constitutional: Positive for fatigue and unexpected weight change (weight gain.). Eyes: Negative for visual disturbance. Respiratory: Positive for shortness of breath. Negative for cough. Cardiovascular: Positive for leg swelling. Negative for chest pain. Gastrointestinal: Negative for abdominal pain, constipation, diarrhea, nausea and vomiting. Endocrine: Negative for polydipsia, polyphagia and polyuria. Genitourinary: Negative for frequency and urgency. Skin: Negative for wound. Neurological: Positive for weakness and numbness. Negative for headaches. Psychiatric/Behavioral: Negative for agitation and sleep disturbance. The patient is not nervous/anxious. 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 Gracie Miller Venous embolism lungs and legs Vitamin D deficiency Past Surgical History: Procedure Laterality Date APPENDECTOMY COLONOSCOPY last was 2014, polyps, done in [place], 2 procdures CORONARY ANGIOPLASTY WITH STENT PLACEMENT has had 2 surgeries, 2019 most recent ESOPHAGOGASTRODUODENOSCOPY last was done in [place], gastic tumor, INSULIN PUMP AND GLUCOSE SENSOR IR IVC FILTER PLACEMENT 2012 for Blood clots MT LAPS INSERTION TUNNELED INTRAPERITONEAL CATHETER N/A 05/19/2024 PD cath, ESR.....Dr. Brian Arevalo TATTOO TEETH EXTRACTION TRANSFUSION BLOOD PRODUCT VASECTOMY Family History Problem Relation Age of Onset Uterine cancer Mother Heart disease Father Rheum arthritis Brother Coronary artery disease Brother Social History Tobacco Use Smoking status: Never Smokeless tobacco: Former Types: Chew Vaping Use Vaping status: Never Used Substance Use Topics Alcohol use: Not Currently Comment: did drank occassionally in past Drug use: Never The following portions of the patient's history were reviewed and updated as appropriate: allergies, current medications, past family history, past medical history, past social history, past surgicalhistory and problem list. Objective: BP (!) 153/80 Pulse 64 Temp 97.4 F (36.3 C) (Oral) Resp 18 Ht 5' 9 Wt (!) 139.7 kg (307 lb 15.7 oz) SpO2 97% BMI 45.48 kg/m Wt Readings from Last 3 Encounters: 06/15/24 (!) 139.7 kg (307 lb 15.7 oz) 06/12/24 (!) 138.3 kg (305 lb) 05/19/24 (!) 140 kg (308 lb 10.3 oz) Physical Exam: Physical Exam Constitutional: Appearance: He is well-developed. HENT: Head: Normocephalic and atraumatic. Eyes: Conjunctiva/sclera: Conjunctivae normal. Pupils: Pupils are equal, round, and reactive to light. Neck: Thyroid: No thyromegaly. Cardiovascular: Rate and Rhythm: Normal rate and regular rhythm. Heart sounds: Normal heart sounds. Pulmonary: Effort: Pulmonary effort is normal. Breath sounds: Normal breath sounds. Musculoskeletal: General: Normal range of motion. Cervical back: Normal range of motion and neck supple. Skin: General: Skin is warm and dry. Neurological: Mental Status: He is alert and oriented to person, place, and time. Psychiatric: Behavior: Behavior normal. Thought Content: Thought content normal. Judgment: Judgment normal. Laboratory Review: BP (!) 153/80 Pulse 64 Temp 97.4 F (36.3 C) (Oral) Resp 18 Ht 5' 9 Wt (!) 139.7 kg (307 lb 15.7 oz) SpO2 97% BMI 45.48 kg/m No results found for: HGBA1C Glucose (mg/dL) Date Value 06/16/2024 173 (H) Creatinine (mg/dL) Date Value 06/16/2024 5.33 (H) No results found for: CHOL , TRIG , HDL , LDLCALC , LDL No results found for: TSH No results found for: FREET4 Lab Results Component Value Date WBC 8.16 06/17/2024 HGB 7.3 (L) 06/17/2024 HCT 24.5 (L) 06/17/2024 MCV 87.5 06/17/2024 PLT 196 06/17/2024 This SmartLink has not been configured with any valid records. This SmartLink has not been configured with any valid records. Laboratory and Additional Data Reviewed: Laboratory 06/17/24 8:00 AM Nephrology 06/17/24 8:00 AM Medications 06/17/24 8:00 AM Transcriptions 06/17/24 8:00 AM Thank you for this consultation, we will continue to follow this patient with you. Nick Watson CNP Associated attestation - Xavier Sotelo MD - 06/17/2024 10:29 AM EDT I evaluated the patient with Nick Watson and agree with his history, physical exam, assessment and plan. Unfortunately, not a candidate for a GLP1RA due to history of neuroendocrine tumor. 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 * Lay Clark MSW LSW - 06/16/2024 2:28 PM EDTAssociated Order(s): IP CONSULT TO CARE MANAGEMENT Care Management Consult Note Date: 06/16/2024 Time: 2:28 PM Patient Name: oLrenzo Amato Date of : 1970 Reason for Consult: Discharge Plan: Discharging Transportation Plan: Discharge Plan Status: Worker consulted to arrange OP HD schedule. [facility]erral sent to [facility] for [facility] on [facility] under Dr. Fletcher. Assessment and Background Information: Living Arrangements: Spouse/significant other Support Systems: Spouse/significant other Assistance Needed: none Type of Residence: Private residence Prior to Admission Home Care Services: No * Mica Olivera PA-C - 06/16/2024 9:07 AM EDTAssociated Order(s): IP CONSULT TO INTERVENTIONAL RADIOLOGY Vascular & Interventional Radiology Provided By [facility] (Diagnostic Radiology, Interventional and Neurointerventional Radiology and Vascular Medicine) Interventional Radiology Department @ : [phone] 07/06 VIR physician contact: [phone]) Weekday VIR RICHARD contact @ [facility]: [phone] [facility]: [email or web address] [facility] [employer] The consult was reviewed. The patient's chart was reviewed. The patient's H&P was reviewed. Lorenzo Amato is a 54 y.o. male patient of Lion Carlson MD with history of anemia, CAD, depression, diabetes mellitus, GERD, dyslipidemia, hypertension, MS, morbid obesity, NABOR, presented to [facility] on 06/15/2024 with groin swelling. 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 Per notes they held Eliquis and placed him on a Heparin drip. INR is stable. NPO order placed VIR consulted for a tunneled HD catheter placement today. We have a very busy schedule today. We will attempt procedure today if possible. The patient will be scheduled for the requested tunneled HD catheter procedure. Procedure date and time TBD by the VIR control desk @ [phone], once pertinent labs and anticoagulant medications have been reviewed, per guidelines below. Please refer to the procedure note section for preliminary procedure details as well as the imaging section for the final procedure report. Pertinent image (if applicable): Pertinent labs are as follows: Results from last 7 days Lab Units 06/15/241955 INR 1.2* Lab Results Component Value Date PTT 70 (H) 06/16/2024 Lab Results Component Value Date PLT 262 06/16/2024 Lab Results Component Value Date BUN 45 (H) 06/16/2024 Lab Results Component Value Date CREATININE 5.33 (H) 06/16/2024 Patient's allergies are as follows: Allergies as of 06/15/2024 - Reviewed 06/15/2024 Allergen Reaction Noted Lisinopril Cough 03/27/2024 Toradol [ketorolac] Other (See Comments) 03/27/2024 VIR Judy-procedure lab value guideline (pending P&T review 11/2020): Table 1. LOW Bleeding Risk Laboratory Guidelines Low Bleeding Risk Procedures Target Laboratory Values3 Bone Marrow Biopsy [Platelet Count - N/A] Catheter exchanges (gastrostomy, biliary, nephrostomy, abscess, including gastrostomy/gastrojejunostomy conversions) CVC tunneled >/= 8 Fr* Diagnostic venography and select venous interventions: pelvis and extremities Dialysis shunt interventions IVC filter placement and removal Non-tunneled chest tube placement for pleural effusion Non-tunneled venous access and removal (including PICC placement) and Tunneled venous access </=7 Fr Paracentesis Peripheral nerve blocks, joint, and musculoskeletal injections Sacroiliac joint injection and sacral lateral branch blocks Superficial abscess drainage or biopsy (palpable lesion, lymph node, soft tissue, breast, thyroid) Thoracentesis Trans jugular liver biopsy Trigger point injections including piriformis Tunneled drainage catheter placement* PT/INR < 2.0 - 3.0 Platelets > 20,000/mcL (Consider transfusing platelets if <20,000/mcL) If patient with Chronic Liver Disease (based on expert opinion): PT/INR < 3.0 (Consider Vitamin K infusion if INR >3.0) Platelets > 20,000/mcL (Transfuse platelets if <20,000/mcL in patients with a large spleen) Fibrinogen > 100mg/dL (Consider cryoprecipitate if <100mg/dL) *If on Direct Oral Anticoagulant (DOAC), follow HIGH Bleeding Risk recommendations in Table 2 and Table 3 Table 2. HIGH Bleeding Risk Laboratory Guidelines: HIGH Bleeding Risk Procedures Target Laboratory Values3 Ablations: solid organs, bone, soft tissue, lung Arterial diagnostic interventions: aortic, pelvic, mesenteric, peripheral Biliary interventions (including cholecystostomy tube placement) Catheter directed thrombolysis/thrombectomy- DVT, PE, portal vein (Highly case dependent) Deep abscess drainage (e.g., lung parenchyma, abdominal, pelvic, retroperitoneal) Deep non organ biopsies (e.g., spine, soft tissue in intra-abdominal, retroperitoneal, pelvic compartments) Gastrostomy/gastrojejunostomy placement IVC filter removal complex Lumbar puncture Lymphangiography Portal vein interventions Solid organ biopsies Spine procedures with risk of spinal or epidural hematoma (e.g., kyphoplasty, vertebroplasty, epidural injections, facet blocks) Trans jugular intrahepatic portosystemic shunt Port placement/removal (Buried) Urinary tract interventions (including nephrostomy tube placement, ureteral dilation, stone removal) Venous interventions: intrathoracic and MATRIX DRIER TENDER intervention PT/INR < 1.5 - 1.8 (if arterial access, femoral: INR < 1.8, radial: INR < 2.2) Platelets > 50,000/mcL (Consider transfusing platelets if <50,000/mcL) If patient with Chronic Liver Disease (based on expert opinion): PT/INR < 2.5 (Give Vitamin K 10mg infusion if INR >2.5) Platelets > 30,000/mcL (Transfuse platelets if <30,000/mcL in patients with a large spleen) Fibrinogen > 100mg/dL (Consider cryoprecipitate if <100mg/dL) VIR Judy-procedure anticoagulant/antiplatelet guideline (pending P&T review 11/2020): Medication LOW Bleeding Risk^ HIGH Bleeding Risk^ Reinitiation Abciximab (ReoPro ) Hold 24 hrs before procedure Hold 24 hrs before procedure Patient undergoing PCI or within immediate periprocedural period from cardiac intervention; use multidisciplinary, shared decision-making Apixaban (Eliquis ) Do not hold CrCl > 50mL/min: Hold 4 doses CrCl < 30-50mL/min: Hold 6 doses 24 hrs Aspirin OR Aspirin/Dipyridamole (Aggrenox ) Holding strategy for aspirin requires patient-specific approach; for high risk or complex cardiovascular cases, multidisciplinary, shared decision-making is suggested Do not hold Hold for 3-5 days (assumes multidisciplinary evaluation and agreement to interrupt therapy) Resume the day after procedure Argatroban (Acova ) Do not hold Hold 2-4 hrs: check aPTT 4-6 hrs Betrixaban (Bevyxxa ) Do not hold Hold for 3 doses 24 hrs Bivalirudin (Angiomax ) Do not hold Hold 2-4 hrs: check aPTT 4-6 hrs Cangrelor (Kengreal ) Defer procedure until therapy completed; if emergent, multidisciplinary discussion with Cardiology is recommended Defer procedure until therapy completed; if emergent, multidisciplinary discussion with Cardiology is recommended Patient undergoing PCI or within immediate peripro cedural period from cardiac intervention; Use multidisciplinary, shared-decision making Cilostazol (Pletal ) Do not hold Do not hold N/A Clopidogrel (Plavix ) Do not hold Hold for 5 days before procedure 75mg Dose: 6 hrs after procedure Loading Dose (300-600mg): 24 hrs after procedure Dabigatran (Pradaxa ) Do not hold CrCl > 50mL/min: Hold 4 doses CrCl < 30-50mL/min: Hold 6-8 doses Consider checking thrombin time with impaired renal function 24 hrs Edoxaban (Savaysa ) Do not hold Hold for 2 doses 24 hrs Eptifibatide (Integrilin ) Hold 4-8 hrs before procedure Hold 4-8 hrs before procedure Patient undergoing PCI or within immediate periprocedural period from cardiac intervention; Use multidisciplinary, shared decision-making Fondaparinux (Arixtra ) Do not hold CrCl > 50mL/min: Hold 2-3 Days CrCl < 50mL/min: Hold 3-5 days 24 hrs LMWH: Enoxaparin (Lovenox ), Dalteparin (Fragmin ) Do not hold Check anti-Xa level if renal function impaired Prophylactic Enoxaparin: Hold 1 dose Therapeutic Enoxaparin: Hold 2 doses or 24 hrs Dalteparin: Hold 1 dose 12 hrs NSAIDS (short-, 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-, and long-acting) Do not hold No recommendations N/A Prasugrel (Effient ) Do not hold Hold for 7 days before procedure Resume the day after the procedure Rivaroxaban (Xarelto ) Do not hold CrCl > 50mL/min: Hold 2 doses CrCl 30-50mL/min: Hold 2 doses CrCl < 15-30mL/min: Hold 3 doses 24 hrs Ticagrelor (Brilinta ) Do not hold Hold for 5 days before procedure Resume the day after the procedure Tirofiban (Aggrastat ) Hold 4-8 hrs before procedure Hold 4-8 hrs before procedure Patient undergoing PCI or within immediate periprocedural period from cardiac intervention; Use multidisciplinary, shared decision-making Unfractionated Heparin Do not hold IV Heparin: Hold 4-6 hrs before procedure; check aPTT or anti-Xa level SubQ Heparin: Hold 6 hrs before procedure 6-8 hrs Warfarin (Coumadin ) Target INR < 3 Hold 5 days until INR < 1.8 Low Bleeding Risk: N/A or same day for bridged patients High Bleeding Risk: Resume day after procedure; Consider bridging after procedure for high thrombosis risk cases; Use multidisciplinary, shared-decision making to balance bleeding vs. thrombotic risks. * Delroy Fletcher MD - 06/15/2024 5:14 PM EDTAssociated Order(s): IP CONSULT TO NEPHROLOGY NEPHROLOGY CONSULTATION NOTE [facility] Patient Name: Lorenzo Amato MR #: [id number] : 1970 Requesting physician: ER physician Reason for consult: End-stage kidney disease Impression: End-stage kidney disease on peritoneal dialysis with Dr. Carline CROCKETT to be established On examination, he does not have unilateral extremity swelling or scrotal swelling that is out of proportion. Certainly PD may cause hernias and extravasation of peritoneal fluid. Although this is less likely, we will consult Dr. Arevalo for further evaluation. More likely cause for his swelling is that he has significant anasarca. I had a long discussion with patient and today regarding starting him on hemodialysis temporarily to ameliorate the anasarca. He understands and is agreeable with the plan. Will consult IR for tunneled dialysis catheter placement. Will consult case management for outpatient dialysis with me on Wednesday basis as ESRD. I expect that he can go back to peritoneal dialysis (barring no objections from surgical standpoint) in the next 3 to 4 weeks. Recommend holding [facility] for now for tunneled dialysis catheter placement. May start heparin drip if needed HD daily while in the hospital to UF aggressively. Anasarca From end-stage kidney disease Will check 2D echo 3. Anemia -Outpatient hemoglobin of 9.4 on 06/12 -Transferrin saturation of 11. Will continue IV iron 4. Hypertension -In part from anasarca -Expect this to improve with UF as above -May resume metoprolol 100 mg twice a day; also on hydralazine 100 mg twice a day and Lasix 40 mg twice a day. 5. Secondary hyperparathyroidism -Last PTH of 416 and phosphorus of 6.2. Has vitamin D deficiency History of Presenting Illness: Lorenzo Amato is 54-year-old gentleman with end-stage kidney disease on peritoneal dialysis (started training on 06/12) under the guidance of Dr. Carline Miller presents to the hospital with right groin swelling. His PD catheter was placed on 05/[address] Arevalo. This is his fourth day of PD training; after his second exchange today, patient reported sudden swelling of his right groin and leg,which prompted his visit to the ER. He denies chest pain, testicular pain, shortness of breath, vomiting or diarrhea. We are being consulted for management of his end-stage kidney disease. 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 Gracie Miller Venous embolism lungs and legs Vitamin D deficiency Past Surgical History: Procedure Laterality Date APPENDECTOMY COLONOSCOPY last was 2014, polyps, done in [place], 2 procdures CORONARY ANGIOPLASTY WITH STENT PLACEMENT has had 2 surgeries, 2019 most recent ESOPHAGOGASTRODUODENOSCOPY last was done in [place], gastic tumor, INSULIN PUMP AND GLUCOSE SENSOR IR IVC FILTER PLACEMENT 2012 for Blood clots MT LAPS INSERTION TUNNELED INTRAPERITONEAL CATHETER N/A 05/19/2024 PD cath, [facility].....Dr. Brian Arevalo TATTOPj TEETH EXTRACTION TRANSFUSION BLOOD PRODUCT VASECTOMY Family History: Family History Problem Relation Age of Onset Uterine cancer Mother Heart disease Father Rheum arthritis Brother Coronary artery disease Brother [] Unable to obtain due to ventilated and/or neurologic status Social History Socioeconomic History Marital status: Tobacco Use Smoking status: Never Smokeless tobacco: Former Types: Chew Vaping Use Vaping status: Never Used Substance and Sexual Activity Alcohol use: Not Currently Comment: did drank occassionally in past Drug use: Never Social Determinants of Health Financial Resource Strain: Low Risk (03/17/2024) Received from [facility] Overall Financial Resource Strain (CARDIA) Difficulty of Paying Living Expenses: Not very hard Food Insecurity: No Food Insecurity (03/17/2024) Received from [facility] Hunger Vital Sign Worried About Running Out of Food in the Last Year: Never true Ran Out of Food in the Last Year: Never true Transportation Needs: Unknown (03/17/2024) Received from [facility] PRAPARE - Transportation Lack of Transportation (Non-Medical): No Housing Stability: Unknown (03/17/2024) Received from [email or web address] Housing Stability Vital Sign In the last 12 months, was there a time when you did not have a steady place to sleep or slept in [facility] (including now)?: No [] Unable to obtain due to ventilated and/or neurologic status Home Medications: Outpatient Medications as of 06/15/2024 Medication Sig atorvastatin (LIPITOR) 80 MG tablet Take 1 (one) tablet (80 mg total) by mouth nightly . busPIRone (BUSPAR) 15 MG tablet 1 (one) tablet (15 mg total) 3 (three) times a day . clopidogreL (PLAVIX) 75 mg tablet Take 1 (one) tablet (75 mg total) by mouth every morning Start: 05/22/24. DULoxetine (CYMBALTA) 60 MG capsule Take 1 (one) capsule (60 mg total) by mouth every morning . Eliquis 5 mg Tab Take 1 (one) tablet (5 mg total) by mouth 2 (two) times a day Start: 05/22/24. ergocalciferol (Vitamin D2) 1,250 mcg (50,000 unit) capsule Take 1 (one) capsule (50,000 Units total) by mouth once a week On Mondays . fluticasone propionate (FLONASE) 50 mcg/actuation nasal spray Instill 2 (two) sprays into each nostril daily as needed . furosemide (LASIX) 20 MG tablet Take 1 (one) tablet (20 mg total) by mouth daily as needed . glucagon 1 mg/mL SolR Inject 1 mL (1 mg total) into the shoulder, thigh, or buttocks as needed . hydrALAZINE (APRESOLINE) 100 MG tablet Take 1 (one) tablet (100 mg total) by mouth 2 (two) times a day . insulin lispro (AdmeLOG,HumaLOG) 100 unit/mL injection Inject under the skin Reasons: max dose 250units daily. meclizine (ANTIVERT) 25 mg tablet Take 1 (one) tablet (25 mg total) by mouth 3 (three) times a day as needed for nausea . metoprolol tartrate (LOPRESSOR) 100 MG tablet Take 1 (one) tablet (100 mg total) by mouth 2 (two) times a day . OCTREOTIDE ACETATE SUBQ Inject 30 mg under the skin every 28 days . octreotide ER (SandoSTATIN LAR Depot) 30 mg injection Inject 30 (thirty) mg into the shoulder, thigh, or buttocks every 28 days . omeprazole (PRILOSEC) 40 MG capsule Take 1 (one) capsule (40 mg total) by mouth 2 (two) times a day. senna-docusate (SENNA-S) 8.6-50 mg Take 1 (one) tablet by mouth 2 (two) times a day as needed . triamcinolone (KENALOG) 0.1 % cream 2 (two) times a day as needed . Current Hospital Medications: Scheduled Meds: Continuous Infusions: PRN Meds:. Allergies: I have reviewed the patient's allergies. Lisinopril and Toradol [ketorolac] Review of Systems: [x] CV, Resp, GI, Neuro, and all other systems reviewed and negative other than listed in HPI. Objective Findings: Vitals:BP (!) 168/77 Pulse 74 Temp 97.4 F (36.3 C) (Oral) Resp 18 SpO2 97% Intake/Output last 3 shifts:No intake or output data in the 24 hours ending 06/15/24 1714No intake/output data recorded. Physical Examination: General: Age appropriate, NAD. HEENT: Normocephalic, no scleral icterus. Neck: No JVD. Heart: Regular, no murmur, no rub/gallop. Lungs: Clear to ascultation, no rales/wheezing/rhonchi. Good chest wall excursion. Abdomen: Soft, nontender, no supra-public fullness or tenderness. Penile edema with mild scrotal edema Extremities: No clubbing/cyanosis, 2-3+ lower extremity edema. Skin: Warm, dry, no rash, no bruise, no petichiae. Neuro: No myoclonus or tremor. Psych: Normal affect. PD catheter c/d/I Results/Medications Reviewed: 06/15/24 5:14 PM: Laboratory, Microbiology, Pathology, Radiology, Cardiology, Medications and Transcriptions Laboratory: Invalid input(s): ALB Urinalysis Risk/Complexity: [x] I have reviewed Progress Notes in the [facility]HR and [facility]. [x] I have interpreted/reviewed lab tests and radiography data in the [facility] EHR. [x] I have discussed the case with the primary service. [x] I have ordered appropriate tests/labs Comments: Thank you for allowing us to participate in the care of this patient. We will continue to follow. Please call if questions or concerns arise. Potential limitations of the note: Parts of this note were created by dictation via voice recognition software ([employer]Star). The completed note was reviewed for accuracy. However, there may be subtle errors that were not found during the review. If such errors are discovered, or if there are any questions or concerns regarding the recommendations/plan of care, please contact the author of the note prior to undertaking the recommendations/plan of care. documented in this [id number] Note* Plan of Care - Herbie Mejia RN - 06/18/2024 9:31 PM EDT POC reviewed and continued [id number] Procedure note* Heather Granger RN - 06/17/2024 2:47 PM EDT Associated Order(s): HEMODIALYSIS INPATIENT Hemodialysis tx complete without complications over 3hrs using a 3k bath Tx start-08:23 Tx complete-11:24 Pre tx wt-135.1kg Post tx wt-132.6kg UF 2.5kg Post tx vitals-131/74 t-98.2 p-70 r-18 [id number] Consult note* Nick Watson, MARIA EUGENIA - 06/17/2024 6:22 AM EDTAssociated Order(s): IP CONSULT TO ENDOCRINOLOGY Patient ID: Patient Name: Lorenzo Amato Admit Date: 06/15/2024 MR #: [id number] : 1970 Current location: 2111 Physicians: Lion Carlson MD (Family); Ananda Gerber RPh,PharmD (Referring) Reason for consult: Type 2 diabetes out of control Assessment/Plan: Dx: Type 2 diabetes, under poor control Currently taking as outpatient: Insulin Pump: Basal Rates: 0000: 6.5 units per hour IC ratio: 0000: 1:2 Sensitivity: 0000: 1: 5 Takes 15 units with each meal Current Hemoglobin A1C= No results found for: HGBA1C NOTES: 06/17: BG and labs reviewed since admission. Patient is on a [employer] insulin pump, settings and placement reviewed by this provider. He is on a very high basal rate. He follows with endocrinology in [facility]. Na: 131; Creat: 4.83; eGFR: 13. CBC: WBC: 8.16; Hgb: 7.3; Hct: 24.5; Plt: 196. Blood Glucoses: 06/16: 173---xxx---104---183 06/17: 276 Plan: 1. Rx changes: none Continue current pump settings. 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 2. Education: Reviewed ABCs of diabetes management (respective goals in parentheses): A1C (7.0-8.0), blood pressure (<130/80), and cholesterol (LDL <100). Referral to Diabetes Education Referral to Nutrition therapy Subjective: Brief HPI: Mr. Amato is a 54-year-old male with a past medical history of type 2 diabetes mellitus,end-stage renal disease, coronary artery disease, hypertension, hyperlipidemia, mL and neuroendocrine tumor. Patient admitted on 06/15/2024 with madalyn. He was started on hemodialysis and has undergone IV diuresis. Patient reports some SOB and edema. Denies chest pain. Patient has had diabetes for 19 years. Diagnosed in 2004. Patient is currently taking insulin via insulin pump. It appears that his outpatient settings include a basal rate of 6.5 units/h. He followswith Dr. Hubert Nowak MD [facility] endocrinology. His last visit with their office was 04/26 when his hemoglobin A1c was 9.0%. Patient has taken Insulin for >5 years, started a pump in 2019. . Currently the patient is receiving insulin via pump with outpatient settings. Blood sugar levels since admission have been ranging from 104-276 mg/dL. Current monitoring regimen: home blood tests - >4 times daily with [employer] sensor. Complications of diabetes include: Retinopathy: Negative Nephropathy: Positive Peripheral Neuropathy: Positive Autonomic Neuropathy: Negative Allergies: Allergies Allergen Reactions Lisinopril Cough Toradol [Ketorolac] Other (See Comments) Kidney failure Home Medications: Outpatient Medications Marked as Taking for the 06/15/24 encounter (Hospital Encounter): acetaminophen (TYLENOL) 500 MG tablet, Take 2 (two) tablets (1,000 mg total) by mouth every 6 (six)hours as needed for pain . atorvastatin (LIPITOR) 80 MG tablet, Take 1 (one) tablet (80 mg total) by mouth nightly . busPIRone (BUSPAR) 15 MG tablet, 1 (one) tablet (15 mg total) 3 (three) times a day . clopidogreL (PLAVIX) 75 mg tablet, Take 1 (one) tablet (75 mg total) by mouth every morning Start: 05/22/24. DULoxetine (CYMBALTA) 60 MG capsule, Take 1 (one) capsule (60 mg total) by mouth every morning . Eliquis 5 mg Tab, Take 1 (one) tablet (5 mg total) by mouth 2 (two) times a day Start: 05/22/24. ergocalciferol (Vitamin D2) 1,250 mcg (50,000 unit) capsule, Take 1 (one) capsule (50,000 Units total) by mouth once a week On Mondays . fluticasone propionate (FLONASE) 50 mcg/actuation nasal spray, Instill 2 (two) sprays into each nostril daily as needed for allergies . furosemide (LASIX) 40 MG tablet, Take 1 (one) tablet (40 mg total) by mouth 2 (two) times a day . gentamicin (GARAMYCIN) 0.3 % ophthalmic solution, by Other route See Admin Instructions 1 TO 2 drops topically to PERITONEAL DIALYSIS EXIT SITE once daily if needed . hydrALAZINE (APRESOLINE) 100 MG tablet, Take 1 (one) tablet (100 mg total) by mouth 2 (two) times aday . insulin lispro (AdmeLOG,HumaLOG) 100 unit/mL injection, Via insulin pump Reasons: max dose 250unitsdaily. meclizine (ANTIVERT) 25 mg tablet, Take 1 (one) tablet (25 mg total) by mouth 3 (three) times a dayas needed for nausea . metoprolol tartrate (LOPRESSOR) 100 MG tablet, Take 1 (one) tablet (100 mg total) by mouth 2 (two) times a day . octreotide ER (SandoSTATIN LAR [place]) 30 mg injection, Inject 30 (thirty) mg into the shoulder, thigh, or buttocks every 28 days . omeprazole (PRILOSEC) 40 MG capsule, Take 1 (one) capsule (40 mg total) by mouth 2 (two) times a day . senna-docusate (SENNA-S) 8.6-50 mg, Take 1 (one) tablet by mouth 2 (two) times a day as needed for constipation . triamcinolone (KENALOG) 0.1 % cream, Apply topically 2 (two) times a day as needed . Current Medications: atorvastatin 80 mg Oral Nightly busPIRone 15 mg Oral Q8H LUIS clopidogreL 75 mg Oral QAM DULoxetine 60 mg Oral QAM [START ON 06/19/2024] ergocalciferol 50,000 Units Oral Weekly furosemide 60 mg Intravenous Q12H LUIS hydrALAZINE 100 mg Oral BID iron sucrose (VENOFER) 300 mg in sodium chloride 0.9% (NS) 250 mL IVPB 300 mg Intravenous Daily metoprolol tartrate 100 mg Oral BID pantoprazole 40 mg Oral Daily sodium chloride (PF) 10-20 mL Intravenous Once in dialysis acetaminophen, aluminum-magnesium hydroxide-simethicone, heparin, ondansetron OR ondansetron, perflutren lipid microspheres, senna, sodium chloride 0.9% Review of Systems: Review of Systems Constitutional: Positive for fatigue and unexpected weight change (weight gain.). Eyes: Negative for visual disturbance. Respiratory: Positive for shortness of breath. Negative for cough. Cardiovascular: Positive for leg swelling. Negative for chest pain. Gastrointestinal: Negative for abdominal pain, constipation, diarrhea, nausea and vomiting. Endocrine: Negative for polydipsia, polyphagia and polyuria. Genitourinary: Negative for frequency and urgency. Skin: Negative for wound. Neurological: Positive for weakness and numbness. Negative for headaches. Psychiatric/Behavioral: Negative for agitation and sleep disturbance. The patient is not nervous/anxious. 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 Gracie Miller Venous embolism lungs and legs Vitamin D deficiency Past Surgical History: Procedure Laterality Date APPENDECTOMY COLONOSCOPY last was 2014, polyps, done in [place], 2 procdures CORONARY ANGIOPLASTY WITH STENT PLACEMENT has had 2 surgeries, 2019 most recent ESOPHAGOGASTRODUODENOSCOPY last was done in [place], gastic tumor, INSULIN PUMP AND GLUCOSE SENSOR IR IVC FILTER PLACEMENT 2012 for Blood clots MT LAPS INSERTION TUNNELED INTRAPERITONEAL CATHETER N/A 05/19/2024 PD cath, [facility].....Dr. Brian Arevalo TATTOO TEETH EXTRACTION TRANSFUSION BLOOD PRODUCT VASECTOMY Family History Problem Relation Age of Onset Uterine cancer Mother Heart disease Father Rheum arthritis Brother Coronary artery disease Brother Social History Tobacco Use Smoking status: Never Smokeless tobacco: Former Types: Chew Vaping Use Vaping status: Never Used Substance Use Topics Alcohol use: Not Currently Comment: did drank occassionally in past Drug use: Never The following portions of the patient's history were reviewed and updated as appropriate: allergies, current medications, past family history, past medical history, past social history, past surgicalhistory and problem list. Objective: BP (!) 153/80 Pulse 64 Temp 97.4 F (36.3 C) (Oral) Resp 18 Ht 5' 9 Wt (!) 139.7 kg (307 lb 15.7 oz) SpO2 97% BMI 45.48 kg/m Wt Readings from Last 3 Encounters: 06/15/24 (!) 139.7 kg (307 lb 15.7 oz) 06/12/24 (!) 138.3 kg (305 lb) 05/19/24 (!) 140 kg (308 lb 10.3 oz) Physical Exam: Physical Exam Constitutional: Appearance: He is well-developed. HENT: Head: Normocephalic and atraumatic. Eyes: Conjunctiva/sclera: Conjunctivae normal. Pupils: Pupils are equal, round, and reactive to light. Neck: Thyroid: No thyromegaly. Cardiovascular: Rate and Rhythm: Normal rate and regular rhythm. Heart sounds: Normal heart sounds. Pulmonary: Effort: Pulmonary effort is normal. Breath sounds: Normal breath sounds. Musculoskeletal: General: Normal range of motion. Cervical back: Normal range of motion and neck supple. Skin: General: Skin is warm and dry. Neurological: Mental Status: He is alert and oriented to person, place, and time. Psychiatric: Behavior: Behavior normal. Thought Content: Thought content normal. Judgment: Judgment normal. Laboratory Review: BP (!) 153/80 Pulse 64 Temp 97.4 F (36.3 C) (Oral) Resp 18 Ht 5' 9 Wt (!) 139.7 kg (307 lb 15.7 oz) SpO2 97% BMI 45.48 kg/m No results found for: HGBA1C Glucose (mg/dL) Date Value 06/16/2024 173 (H) Creatinine (mg/dL) Date Value 06/16/2024 5.33 (H) No results found for: CHOL , TRIG , HDL , LDLCALC , LDL No results found for: TSH No results found for: FREET4 Lab Results Component Value Date WBC 8.16 06/17/2024 HGB 7.3 (L) 06/17/2024 HCT 24.5 (L) 06/17/2024 MCV 87.5 06/17/2024 PLT 196 06/17/2024 This SmartLink has not been configured with any valid records. This SmartLink has not been configured with any valid records. Laboratory and Additional Data Reviewed: Laboratory 06/17/24 8:00 AM Nephrology 06/17/24 8:00 AM Medications 06/17/24 8:00 AM Transcriptions 06/17/24 8:00 AM Thank you for this consultation, we will continue to follow this patient with you. Nick Watson CNP Associated attestation - Xavier Sotelo MD - 06/17/2024 10:29 AM EDT I evaluated the patient with Nick Watson and agree with his history, physical exam, assessment and plan. Unfortunately, not a candidate for a GLP1RA due to history of neuroendocrine tumor. 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 [id number] Note* Utilization Review - Rosina Leiva RN - 06/16/2024 7:50 PM EDT [facility] Utilization Review Notes HISTORY OF PRESENT ILLNESS:54 y.o. male patient of Lion Carlson MD with history of anemia, CAD, depression, diabetes mellitus, GERD, dyslipidemia, hypertension, MS, morbid obesity, NABOR, presented to [facility] on 06/15/2024 with groin swelling. Patient presented to the ER with lower extremityswelling with bilateral groin swelling for the last several days. He was seen by his industrial hygienist and was advised for admission for dialysis. Patient was on presented for 4 days, today he noticed bilateral swelling of the groin after drinking the fluid in the PD. 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 Patient has history of GI bleed. VITAL SIGNS: 06/15 15:24 168/77-18-74-97.2-98 percent with RA 20:45 157/78-16-87-97.3-97 percent with RA 23:52 183/95-18-91- 8/ 06:00 183/95-18-93 07:33 156/70-18-70-97.8-93 percent with RA 13:34 194/94-19-82- 100 percent with 3L/NNC 13:40 182/24-43-44-106-100 percent with 3L/NC [id number]:75564/68-16-70-97.3-99 percent with 4L/NC EKG:none orders WEIGHT:(307 lb 15.7 oz) LABS: (Abnormal / Relevant): CBC Auto Differential Component Ref Range & Units 06:41 8/2 1 d ago 06/15 17:44 1 mo ago WBC 4.50 - 11.00 K/mcL 7.82 9.48 10.74 RBC 4.50 - 5.90 M/mcL 3.14 Low 3.30 Low 3.53 Low Hemoglobin 13.5 - 17.5 g/dL 8.1 Low 8.6 Low 9.3 Low Hematocrit 41.0 - 53.0 % 27.3 Low 29.2 Low 30.7 Low MCV 80.0 - 100.0 fL 86.9 88.5 87.0 MCH 26.0 - 34.0 pg 25.8 Low 26.1 26.3 MCHC 31.0 - 37.0 g/dL 29.7 Low 29.5 Low 30.3 Low Platelets 150 - 400 K/mcL 262 294 250 RDW - CV 11.6 - 14.8 % 18.2 High 18.1 High 18.6 High MPV 9.4 - 12.4 fL 9.3 Low 9.5 9.2 Low Neutrophils % 75.3 Phosphorus Component Ref Range & Units 06:41 8/2 1 d ago 06/15 Phosphorus 2.7 - 4.5 mg/dL 6.0 High 5.9 High ntains abnormal data Comprehensive Metabolic Panel Order: [id number] Status: Final result Visible to patient: Yes (not seen) 0 Result Notes Component Ref Range & Units 06:41 8/2 1 d ago 06/15 4 wk ago 1 mo ago Sodium 135 - 145 mmol/L 136 138 133 Low Potassium 3.5 - 5.1 mmol/L 4.2 5.0 5.5 High 5.5 High Chloride 98 - 108 mmol/L 104 103 100 Bicarbonate 21 - 32 mmol/L 21 22 19 Low Anion Gap 10 - 20 mmol/L 15 18 20 Glucose 65 - 99 mg/dL 173 High 193 High 253 High BUN 8 - 25 mg/dL 45 High 44 High 57 High Creatinine 0.50 - 1.30 mg/dL 5.33 High 5.10 High 5.32 High eGFR >=60 mL/min/1.73 m2 12 Low 13 Low CM 12 Low CM Comment: Estimated GFR was calculated using the 2020 CKD-EPI creatinine equation. BUN/Creatinine Ratio 10.0 - 20.0 8.4 Low 8.6 Low 10.7 Total Protein 6.0 - 8.0 g/dL 5.9 Low 7.2 Albumin 3.2 - 5.2 g/dL 3.1 Low 3.6 Calcium 8.4 - 10.2 mg/dL 8.6 8.9 8.9 Alkaline Phosphatase 40 - 150 U/L 158 High 190 High ntains abnormal data Component Ref Range & Units 06/15 Protime (PT) 11.8 - 14.3 seconds 15.6 High INR 0.8 - 1.1 1.2 High IMAGING: (Abnormal / Relevant): Echo 06/16: Summary 1. Mildly enlarged LV chamber size. Systolic function is moderately reduced. There is global hypokinesis. Ejection fraction by Biplane Method of Discs of 32%. 2. The left ventricular diastolic function is grade I diastolic dysfunction, consistent with low or normal atrial pressures. 3. Right ventricular size and systolic function are normal. 4. There is no hemodynamically significant valve disease. 5. There is no pulmonary hypertension, estimated right ventricle systolic pressure is 13 mmHg. 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 Previous PE in 2004 Bilateral DVT Previous GI bleed while on Eliquis S/p IVC filter which was clotted Currently was on Eliquis Due to extensive history of thromboembolic disease, will hold Eliquis for now due to the procedure tomorrow and start the patient heparin drip without bolus Continue to monitor Hypertension Dyslipidemia Continue statin, hydralazine, metoprolol and Lasix Diabetes mellitus Last A1c 5 months ago 8.6 Pt has insulin pump, Keep BG 140 and 180 Depression Continue Cymbalta and BuSpar CAD S/p TIFFANIE x 4, last 1 was 2018 Continue Plavix, metoprolol, Lasix MS Morbid obesity NABOR BMI 45.04 Lifestyle modification advised to the patient MEDS / ORDERS: Admit to Inpatient, vital q 4 hrs, Renal consulted, M-W-F HD, Continuous Tele, CT Abd Pelvis. Daily BMP, CBC q other day, Daily CBC , Endocrinology consulted, stated IV Lasis q 12 hrs,IV Venofer IV Daily, started Hp Drip, Renal consulted: On examination, he does not have unilateral extremity swelling or scrotal swelling that is out of proportion. Certainly PD may cause hernias and extravasation of peritoneal fluid. Although this is less likely, we will consult Dr. Arevalo for further evaluation. More likely cause for his swelling is that he has significant anasarca. I had a long discussion with patient and today regarding starting him on hemodialysis temporarily to ameliorate the anasarca. He understands and is agreeable with the plan. Will consult IR for tunneled dialysis catheter placement. Will consult case management for outpatient dialysis with me on Wednesday basis as ESRD. I expect that he can go back to peritoneal dialysis (barring no objections from surgical standpoint) in the next 3 to 4 weeks. Recommend holding Eliquis for now for tunneled dialysis catheter placement. May start heparin drip if needed HD daily while in the hospital to UF aggressively. Anasarca From end-stage kidney disease Will check 2D echo Anemia -Outpatient hemoglobin of 9.4 on 06/12 -Transferrin saturation of 11. Will continue IV iron Hypertension -In part from anasarca -Expect this to improve with UF as above -May resume metoprolol 100 mg twice a day; also on hydralazine 100 mg twice a day and Lasix 40 mg twice a day. Secondary hyperparathyroidism -Last PTH of 416 and phosphorus of 6.2. Has vitamin D deficiency Procedure HISTORY: Renal failure Date of PROCEDURE: 06/16 2:00 Procedure: Tunneled dialysis catheter FINDINGS: Right jugular tunneled HD catheter - ready for use DISPO:arrange OP HD schedule. [id number] Note* CDI Query - Mark Vasquez MD - 06/16/2024 7:26 PM EDT Noted lasix on medication record. Clinical Indicators: Per consult progress note: Given residual renal function will use IV Lasix. Per 06/16 Echo: EF 32 %, left ventricular diastolic function is grade I diastolic dysfunction Per LELE: PO lasix and IV lasix Please document the condition being treated with lasix in the progress note. For Example: Chronic systolic heart failure Lasix treatment for (please specify) Other (please specify) Unable to determine Thank you, Naa OLIVEIRA, RN Clinical Clammer [phone] (cell) After business hours you may contact Elvia Schmitt at [phone] (Weekdays until 10 PM and weekends 8 AM - 10 PM) [id number] Note* Plan of Care - Mis Neri RN - 06/16/2024 5:14 PM EDT POC reviewed Problem: Actual or potential alteration in health Goal: Absence of healthcare acquired conditions Outcome: Partially Met Goal: Knowledge of Interdisciplinary Plan of Care Outcome: Partially Met Goal: Knowledge of Enviroment Outcome: Partially Met Problem: Pain Goal: Reduced pain sensation Outcome: Partially Met Goal: Control of acute pain to acceptable level Outcome: Partially Met Goal: Able to cope with pain Outcome: Partially Met Goal: Able to achieve maximum level of physical functioning Outcome: Partially Met Goal: Able to achieve maximum level of psychosocial functioning Outcome: Partially Met [id number] NotePROCEDURES: ULTRASOUND-GUIDED ACCESS OF RIGHT INTERNAL JUGULAR VEIN. TUNNELED DIALYSIS CATHETER PLACEMENT UNDER FLUOROSCOPIC GUIDANCE MODERATE CONSCIOUS SEDATION, 20 MINUTES HISTORY/CLINICAL DATA: End stage renal disease. The patient needs dialysis access. COMPARISON: None. CABIN SERVICE AGENT(S): Dariusz Modi MD, PhD ESTIMATED BLOOD LOSS: Scant COMPLICATIONS: No immediate MEDICATIONS: Versed 2.0 mg IV, Fentanyl 100 mcg IV, Lidocaine-1%, local. FLUOROSCOPY DOSE/TIME: Fluoroscopy time: 0.2 minutes Fluoroscopy dose: 6 mGy PROCEDURE: The risks, benefits and alternatives were explained to the patient. All of the patient's questions were answered. Both written and informed consent were obtained. Dose reduction techniques were achieved by using automated exposure control and/or adjustment of mAand/or kV according to patient size and/or use of iterative reconstruction technique. INTRAVENOUS MODERATE SEDATION AND MONITORING: With the patient in supine position on the interventional table, the right neck and chest were prepped and draped in the usual sterile fashion, a pause and confirm (time-out) was performed with all staff in the room before proceeding. Intravenous moderate sedation and monitoring was initiated and continued with divided doses of Versed and fentanyl with an independent observer. Continuous noninvasive cardiopulmonary and oxygen saturation monitoring demonstrated stable vital signs throughout the procedure with no evidence of complication. 20 minutes of conscious sedation was provided for the procedure. TUNNELED DIALYSIS CATHETER PLACEMENT: Ultrasound of the neck demonstrates a widely patent internal jugular vein. Under ultrasound guidance, a micropuncture needle was introduced into the right internal jugular vein. An ultrasound image was archived and stored in the patient's permanent electronic medical record. Over guidewire, the needle was exchanged for a peel-away sheath. A subcutaneous tunnel was created in the anterior chest wall. The tunneled catheter was then advanced through the subcutaneous tunnel and peel-away sheath. Under fluoroscopic guidance, the catheter tip was positioned in the proximal right atrium. The catheter was then sutured into place and flushed. The venotomy site was closed with Dermabond. A sterile dressing was applied. The patient toleratedthis procedure well without immediate complication. Catheter: 23 cm Med The 517 travel tunneled dialysis catheter [id number] Consult note* Lay Clark MSW LSW - 06/16/2024 2:28 PM EDT Associated Order(s): IP CONSULT TO CARE MANAGEMENT Care Management Consult Note Date: 06/16/2024 Time: 2:28 PM Patient Name: Lorenzo Amato Date of : 1970 Reason for Consult: Discharge Plan: Discharging Transportation Plan: Discharge Plan Status: Worker consulted to arrange OP HD schedule. [facility]. Assessment and Background Information: Living Arrangements: Spouse/significant other Support Systems: Spouse/significant other Assistance Needed: none Type of Residence: Private residence Prior to Admission Home Care Services: No [id number] Procedure note* Dariusz Modi MD - 06/16/2024 2:00 PM EDT Vascular & Interventional Radiology Provided By [facility] FOR HEALTHCARE PROVIDER USE ONLY: Interventional Radiology Department @ [facility]: [phone] Interventional Radiology Department @ [facility]: [phone] Interventional Radiology Department @ : [phone] 07/06 VIR physician contact: [phone]) Weekday/weekend VIR nurse practitioner contact @ [facility]: [phone] FOR PATIENT AND PROVIDERS: [facility]: [phone] [email or web address] HISTORY: Renal failure PROCEDURE: Tunneled dialysis catheter FINDINGS: Right jugular tunneled HD catheter - ready for use PLAN: To floor Date: 06/16/24 Patient Name: Lorenzo Amato Patient : 1970 Physician: Dariusz Modi MD Sedation Plan: Moderate ASA Classification: ASA 2 - Patient with mild systemic disease with no functional limitations Mallampati Classification: Class I: The entire tonsillar pillars, uvula, hard and soft palates are visualized [place] Protocol: Pre-Procedural verification: Correct patient, correct site and correct procedure confirmed. H&P or interval update complete and in medical record. Informed consent form completed and signed. Radiology images, labs and pathology reviewed with appropriate identifiers (when applicable). Site Marking: N/A Time Out: PERFORMED Complications: None Full report to follow [id number] History and physical note* Dariusz Modi MD - 06/16/2024 1:32 PM EDT Vascular & Interventional Radiology Provided By [facility] FOR PROVIDER USE ONLY: [facility] Interventional Radiology: [phone] [facility] Interventional Radiology: [phone] [facility] Interventional Radiology: [phone] 07/06 VIR physician contact: ([phone]) Weekday/weekend VIR advanced practice provider at [facility]: [phone] FOR PATIENT AND PROVIDERS: [facility]: [phone] [email or web address] PRE PROCEDURE INTERVAL HISTORY AND PHYSICAL: Patient Name: Lorenzo Amato Admit Date: [id number] MR #: [id number] : 1970 Physicians: Lion Carlson MD (Family) Chief Complaint: renal failure Reason for Visit: HD catheter History: Past Medical History: Diagnosis Date Anemia Arthritis Coronary artery disease COVID Depression with anxiety Diabetes mellitus, type 2 (HCC) Dyspnea on exertion 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 Gracie Miller Venous embolism lungs and legs Vitamin D deficiency Past Surgical History: Procedure Laterality Date APPENDECTOMY COLONOSCOPY last was 2014, polyps, done in [place], 2 procdures CORONARY ANGIOPLASTY WITH STENT PLACEMENT has had 2 surgeries, 2019 most recent ESOPHAGOGASTRODUODENOSCOPY last was done in [place], gastic tumor, INSULIN PUMP AND GLUCOSE SENSOR IR IVC FILTER PLACEMENT 2012 for Blood clots MT LAPS INSERTION TUNNELED INTRAPERITONEAL CATHETER N/A 05/19/2024 PD cath, ESRF.....Dr. Brian Arevalo TATTOPj TEETH EXTRACTION TRANSFUSION BLOOD PRODUCT VASECTOMY Home Medications: Outpatient Medications as of 06/16/2024 Medication Sig atorvastatin (LIPITOR) 80 MG tablet Take 1 (one) tablet (80 mg total) by mouth nightly . busPIRone (BUSPAR) 15 MG tablet 1 (one) tablet (15 mg total) 3 (three) times a day . clopidogreL (PLAVIX) 75 mg tablet Take 1 (one) tablet (75 mg total) by mouth every morning Start: 05/22/24. DULoxetine (CYMBALTA) 60 MG capsule Take 1 (one) capsule (60 mg total) by mouth every morning . Eliquis 5 mg Tab Take 1 (one) tablet (5 mg total) by mouth 2 (two) times a day Start: 05/22/24. ergocalciferol (Vitamin D2) 1,250 mcg (50,000 unit) capsule Take 1 (one) capsule (50,000 Units total) by mouth once a week On Mondays . fluticasone propionate (FLONASE) 50 mcg/actuation nasal spray Instill 2 (two) sprays into each nostril daily as needed for allergies . furosemide (LASIX) 40 MG tablet Take 1 (one) tablet (40 mg total) by mouth 2 (two) times a day . gentamicin (GARAMYCIN) 0.3 % ophthalmic solution by Other route See Admin Instructions 1 TO 2 dropstopically to PERITONEAL DIALYSIS EXIT SITE once daily if needed . hydrALAZINE (APRESOLINE) 100 MG tablet Take 1 (one) tablet (100 mg total) by mouth 2 (two) times a day . insulin lispro (AdmeLOG,HumaLOG) 100 unit/mL injection Via insulin pump Reasons: max dose 250units daily. meclizine (ANTIVERT) 25 mg tablet Take 1 (one) tablet (25 mg total) by mouth 3 (three) times a day as needed for nausea . metoprolol tartrate (LOPRESSOR) 100 MG tablet Take 1 (one) tablet (100 mg total) by mouth 2 (two) times a day . octreotide ER (SandoSTATIN [place]) 30 mg injection Inject 30 (thirty) mg into the shoulder, thigh, or buttocks every 28 days . omeprazole (PRILOSEC) 40 MG capsule Take 1 (one) capsule (40 mg total) by mouth 2 (two) times a day. senna-docusate (SENNA-S) 8.6-50 mg Take 1 (one) tablet by mouth 2 (two) times a day as needed for constipation . triamcinolone (KENALOG) 0.1 % cream Apply topically 2 (two) times a day as needed . glucagon 1 mg/mL SolR Inject 1 mL (1 mg total) into the shoulder, thigh, or buttocks as needed . OCTREOTIDE ACETATE SUBQ Inject 30 mg under the skin every 28 days . Allergies: Lisinopril and Toradol [ketorolac] Review of Symptoms: General: denies excessive fatigue, weight loss ENT: denies congestion, rhinorrhea, hearing loss Cardiopulmonary: denies SOB, chest pain, palpitations Abdomen: denies abdominal pain, melena, hematochezia : denies dysuria, hematuria Endocrine: denies polyuria, polydipsia, cold/heat intolerance Derm: denies rash or lesion Neuro: denies headache, visual or speech changes Psych: denies depression/anxiety Physical Examination: PACU Vitals 06/16/24 1330 BP: 129/88 Pulse: (!) 100 Resp: 17 Temp: SpO2: 100% Mallampati Airway Classification: Class 1. Uvula, faucial pillars, soft palate visible CV: Pulse is regular with regular rate. Lungs: No respiratory distress. No accessory muscle use. No audible wheeze. Preprocedural ASA: B II (Mild systemic disease) Laboratory: Lab Results Component Value Date WBC 7.82 06/16/2024 HGB 8.1 (L) 06/16/2024 HCT 27.3 (L) 06/16/2024 MCV 86.9 06/16/2024 PLT 262 06/16/2024 Lab Results Component Value Date GLUCOSE 173 (H) 06/16/2024 CALCIUM 8.6 06/16/2024 NA 136 06/16/2024 K 4.2 06/16/2024 CL 104 06/16/2024 BUN 45 (H) 06/16/2024 CREATININE 5.33 (H) 06/16/2024 . Protime (PT) Date Value Ref Range Status 06/15/2024 15.6 (H) 11.8 - 14.3 seconds Final INR Date Value Ref Range Status 06/15/2024 1.2 (H) 0.8 - 1.1 Final Assessment and Plan: The procedure, its benefits and risks were discussed in detail with the patient and/or family. Informed consent obtained. Proceed with HD catheter, as requested. Other: N/A [employer] Work Phone: 1([phone]) 528-843608-02-2024 History and physical note* Dariusz Modi MD - 06/16/2024 1:32 PM EDT Vascular & Interventional Radiology Provided By [facility] FOR PROVIDER USE ONLY: [facility] Interventional Radiology: [phone] [facility]: [phone] [facility]: [phone] 07/06 VIR physician contact: [phone]) Weekday/weekend VIR advanced practice provider at [facility]: [phone] FOR PATIENT AND PROVIDERS: [facility]: [phone] [email or web address] PRE PROCEDURE INTERVAL HISTORY AND PHYSICAL: Patient Name: Lorenzo Amato Admit Date: 8001219 MR #: [id number] : 1970 Physicians: Lion Carlson MD (Family) Chief Complaint: renal failure Reason for Visit: HD catheter History: Past Medical History: Diagnosis Date Anemia Arthritis Coronary artery disease COVID Depression with anxiety Diabetes mellitus, type 2 (HCC) Dyspnea on exertion 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 Gracie Miller Venous embolism lungs and legs Vitamin D deficiency Past Surgical History: Procedure Laterality Date APPENDECTOMY COLONOSCOPY last was 2014, polyps, done in [place], 2 procdures CORONARY ANGIOPLASTY WITH STENT PLACEMENT has had 2 surgeries, 2019 most recent ESOPHAGOGASTRODUODENOSCOPY last was done in [place], gastic tumor, INSULIN PUMP AND GLUCOSE SENSOR IR IVC FILTER PLACEMENT 2012 for Blood clots MT LAPS INSERTION TUNNELED INTRAPERITONEAL CATHETER N/A 05/19/2024 PD cath, ESRF.....Dr. Brian Arevalo TATTOPj TEETH EXTRACTION TRANSFUSION BLOOD PRODUCT VASECTOMY Home Medications: Outpatient Medications as of 06/16/2024 Medication Sig atorvastatin (LIPITOR) 80 MG tablet Take 1 (one) tablet (80 mg total) by mouth nightly . busPIRone (BUSPAR) 15 MG tablet 1 (one) tablet (15 mg total) 3 (three) times a day . clopidogreL (PLAVIX) 75 mg tablet Take 1 (one) tablet (75 mg total) by mouth every morning Start: 05/22/24. DULoxetine (CYMBALTA) 60 MG capsule Take 1 (one) capsule (60 mg total) by mouth every morning . Eliquis 5 mg Tab Take 1 (one) tablet (5 mg total) by mouth 2 (two) times a day Start: 05/22/24. ergocalciferol (Vitamin D2) 1,250 mcg (50,000 unit) capsule Take 1 (one) capsule (50,000 Units total) by mouth once a week On Mondays . fluticasone propionate (FLONASE) 50 mcg/actuation nasal spray Instill 2 (two) sprays into each nostril daily as needed for allergies . furosemide (LASIX) 40 MG tablet Take 1 (one) tablet (40 mg total) by mouth 2 (two) times a day . gentamicin (GARAMYCIN) 0.3 % ophthalmic solution by Other route See Admin Instructions 1 TO 2 dropstopically to PERITONEAL DIALYSIS EXIT SITE once daily if needed . hydrALAZINE (APRESOLINE) 100 MG tablet Take 1 (one) tablet (100 mg total) by mouth 2 (two) times a day . insulin lispro (AdmeLOG,HumaLOG) 100 unit/mL injection Via insulin pump Reasons: max dose 250units daily. meclizine (ANTIVERT) 25 mg tablet Take 1 (one) tablet (25 mg total) by mouth 3 (three) times a day as needed for nausea . metoprolol tartrate (LOPRESSOR) 100 MG tablet Take 1 (one) tablet (100 mg total) by mouth 2 (two) times a day . octreotide ER (SandoSTATIN [place]) 30 mg injection Inject 30 (thirty) mg into the shoulder, thigh, or buttocks every 28 days . omeprazole (PRILOSEC) 40 MG capsule Take 1 (one) capsule (40 mg total) by mouth 2 (two) times a day. senna-docusate (SENNA-S) 8.6-50 mg Take 1 (one) tablet by mouth 2 (two) times a day as needed for constipation . triamcinolone (KENALOG) 0.1 % cream Apply topically 2 (two) times a day as needed . glucagon 1 mg/mL SolR Inject 1 mL (1 mg total) into the shoulder, thigh, or buttocks as needed . OCTREOTIDE ACETATE SUBQ Inject 30 mg under the skin every 28 days . Allergies: Lisinopril and Toradol [ketorolac] Review of Symptoms: General: denies excessive fatigue, weight loss ENT: denies congestion, rhinorrhea, hearing loss Cardiopulmonary: denies SOB, chest pain, palpitations Abdomen: denies abdominal pain, melena, hematochezia : denies dysuria, hematuria Endocrine: denies polyuria, polydipsia, cold/heat intolerance Derm: denies rash or lesion Neuro: denies headache, visual or speech changes Psych: denies depression/anxiety Physical Examination: PACU Vitals 06/16/24 1330 BP: 129/88 Pulse: (!) 100 Resp: 17 Temp: SpO2: 100% Mallampati Airway Classification: Class 1. Uvula, faucial pillars, soft palate visible CV: Pulse is regular with regular rate. Lungs: No respiratory distress. No accessory muscle use. No audible wheeze. Preprocedural ASA: B II (Mild systemic disease) Laboratory: Lab Results Component Value Date WBC 7.82 06/16/2024 HGB 8.1 (L) 06/16/2024 HCT 27.3 (L) 06/16/2024 MCV 86.9 06/16/2024 PLT 262 06/16/2024 Lab Results Component Value Date GLUCOSE 173 (H) 06/16/2024 CALCIUM 8.6 06/16/2024 NA 136 06/16/2024 K 4.2 06/16/2024 CL 104 06/16/2024 BUN 45 (H) 06/16/2024 CREATININE 5.33 (H) 06/16/2024 . Protime (PT) Date Value Ref Range Status 06/15/2024 15.6 (H) 11.8 - 14.3 seconds Final INR Date Value Ref Range Status 06/15/2024 1.2 (H) 0.8 - 1.1 Final Assessment and Plan: The procedure, its benefits and risks were discussed in detail with the patient and/or family. Informed consent obtained. Proceed with HD catheter, as requested. Other: N/A * Sherman Zelaya DO - 06/15/2024 5:09 PM EDT [facility] [place] [facility] -- [facility] Patient Name: Lorenzo Amato : 1970 MR #: [id number] Admit Date: 06/15/2024 Physicians: Lion Carlson MD (Family); Gracie Miller MD (Referring) Lorenzo Amato is a 54 y.o. male patient of Lion Carlson MD with history of anemia, CAD, depression, diabetes mellitus, GERD, dyslipidemia, hypertension, MS, morbid obesity, NABOR, presented to [facility] on 06/15/2024 with groin swelling. 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 Previous PE in 2004 Bilateral DVT Previous GI bleed while on Eliquis S/p IVC filter which was clotted Currently was on Eliquis Due to extensive history of thromboembolic disease, will hold Eliquis for now due to the procedure tomorrow and start the patient heparin drip without bolus Continue to monitor Hypertension Dyslipidemia Continue statin, hydralazine, metoprolol and Lasix Diabetes mellitus Last A1c 5 months ago 8.6 Pt has insulin pump, Keep BG 140 and 180 Depression Continue Cymbalta and BuSpar CAD S/p TIFFANIE x 4, last 2018 Continue Plavix, metoprolol, Lasix MS Morbid obesity NABOR BMI 45.04 Lifestyle modification advised to the patient Residence prior to admission: house or apartment [facility] no Quality Measures DVT Prophylaxis: heparin gtt Bill Catheter: absent Medication Reconciliation: Verified Admitted with these risk variables:Fluid Overload. Please see assessment and plan for further details. Estimated Date of Discharge less than 2 midnights Code Status Full Code; code status verified on 06/15/2024 with patient (capacity intact) Chief Complaint groin swelling History of Present Illness Lorenzo Amato is a 54 y.o. male patient of Lion Carlson MD with history of anemia, CAD, depression, diabetes mellitus, GERD, dyslipidemia, hypertension, MS, morbid obesity, NABOR, presented to [facility] on 06/15/2024 with groin swelling. Patient presented to the ER with lower extremity swellingwith bilateral groin swelling for the last several days. He was seen by his industrial hygienist and was advised for admission for dialysis. Patient was on presented for 4 days, today he noticed bilateral swelling of the groin after drinking the fluid in the PD. 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 Patient has history of GI bleed. 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 Gracei Miller Venous embolism lungs and legs Vitamin D deficiency Past Surgical History Past Surgical History: Procedure Laterality Date APPENDECTOMY COLONOSCOPY last was 2014, polyps, done in [place], 2 procdures CORONARY ANGIOPLASTY WITH STENT PLACEMENT has had 2 surgeries, 2019 most recent ESOPHAGOGASTRODUODENOSCOPY last was done in [place], gastic tumor, INSULIN PUMP AND GLUCOSE SENSOR IR IVC FILTER PLACEMENT 2012 for Blood clots MT LAPS INSERTION TUNNELED INTRAPERITONEAL CATHETER N/A 05/19/2024 PD cath, [facility].....Dr. Brian PRETTY TEETH EXTRACTION TRANSFUSION BLOOD PRODUCT VASECTOMY Family History Family History Problem Relation Age of Onset Uterine cancer Mother Heart disease Father Rheum arthritis Brother Coronary artery disease Brother Social History Social History Tobacco Use Smoking Status Never Smokeless Tobacco Former Types: Chew Social History Substance and Sexual Activity Alcohol Use Not Currently Comment: did drank occassionally in past Social History Substance and Sexual Activity Drug Use Never Allergy Information I have reviewed the patient's allergies. Lisinopril and Toradol [ketorolac] Home Medications Home medications were reviewed. Review Of Systems All relevant systems have been reviewed and are negative except as noted in HPI or below Physical Examination BP (!) 168/77 Pulse 74 Temp 97.4 F (36.3 C) (Oral) Resp 18 SpO2 97% General Appearance: alert; chronically ill appearing; in no acute distress HEENT: Head- normocephalic; Eyes- EOMI, sclera anicteric; Throat- mucous membranes moist Cardiovascular: regular rate and rhythm; normal S1, S2; no murmurs, rubs, clicks or gallops; peripheral edema 4+ Respiratory: lungs clear to auscultation; without wheezes, rales or rhonchi; on room air Abdomen: soft, distended, nontender abdomen, positive BS in all 4 quadrants, bilateral swelling in the groin, nontender Neurological: oriented x 3; normal speech; no focal findings or movement disorder noted Musculoskeletal: no significant deformity or tenderness to palpation Skin: normal coloration Psych: normal mood and affect documented in this [id number] Consult note* Mica Olivera PA-C - 06/16/2024 9:07 AM EDTAssociated Order(s): IP CONSULT TO INTERVENTIONAL RADIOLOGY Vascular & Interventional Radiology Provided By [facility] (Diagnostic Radiology, Interventional and Neurointerventional Radiology and Vascular Medicine) Interventional Radiology Department @ : [phone] 07/06 VIR physician contact: [phone]) day VIR RICHARD contact @ [facility]: [phone] [facility]: [email or web address] [facility] [employer] The consult was reviewed. The patient's chart was reviewed. The patient's H&P was reviewed. Lorenzo Amato is a 54 y.o. male patient of Lion Carlson MD with history of anemia, CAD, depression, diabetes mellitus, GERD, dyslipidemia, hypertension, MS, morbid obesity, NABOR, presented to [facility] on 06/15/2024 with groin swelling. 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 Per notes they held Eliquis and placed him on a Heparin drip. INR is stable. NPO order placed VIR consulted for a tunneled HD catheter placement today. We have a very busy schedule today. We will attempt procedure today if possible. The patient will be scheduled for the requested tunneled HD catheter procedure. Procedure date and time TBD by the VIR control desk @ [phone], once pertinent labs and anticoagulant medications have been reviewed, per guidelines below. Please refer to the procedure note section for preliminary procedure details as well as the imaging section for the final procedure report. Pertinent image (if applicable): Pertinent labs are as follows: Results from last 7 days Lab Units 06/15/241955 INR 1.2* Lab Results Component Value Date PTT 70 (H) 06/16/2024 Lab Results Component Value Date PLT 262 06/16/2024 Lab Results Component Value Date BUN 45 (H) 06/16/2024 Lab Results Component Value Date CREATININE 5.33 (H) 06/16/2024 Patient's allergies are as follows: Allergies as of 06/15/2024 - Reviewed 06/15/2024 Allergen Reaction Noted Lisinopril Cough 03/27/2024 Toradol [ketorolac] Other (See Comments) 03/27/2024 VIR Judy-procedure lab value guideline (pending P&T review 11/2020): Table 1. LOW Bleeding Risk Laboratory Guidelines Low Bleeding Risk Procedures Target Laboratory Values3 Bone Marrow Biopsy [Platelet Count - N/A] Catheter exchanges (gastrostomy, biliary, nephrostomy, abscess, including gastrostomy/gastrojejunostomy conversions) CVC tunneled >/= 8 Fr* Diagnostic venography and select venous interventions: pelvis and extremities Dialysis shunt interventions IVC filter placement and removal Non-tunneled chest tube placement for pleural effusion Non-tunneled venous access and removal (including PICC placement) and Tunneled venous access Paracentesis Peripheral nerve blocks, joint, and musculoskeletal injections Sacroiliac joint injection and sacral lateral branch blocks Superficial abscess drainage or biopsy (palpable lesion, lymph node, soft tissue, breast, thyroid) Thoracentesis Trans jugular liver biopsy Trigger point injections including piriformis Tunneled drainage catheter placement* PT/INR < 2.0 - 3.0 Platelets > 20,000/mcL (Consider transfusing platelets if <20,000/mcL) If patient with Chronic Liver Disease (based on expert opinion): PT/INR < 3.0 (Consider Vitamin K infusion if INR >3.0) Platelets > 20,000/mcL (Transfuse platelets if <20,000/mcL in patients with a large spleen) Fibrinogen > 100mg/dL (Consider cryoprecipitate if <100mg/dL) *If on Direct Oral Anticoagulant (DOAC), follow HIGH Bleeding Risk recommendations in Table 2 and Table 3 Table 2. HIGH Bleeding Risk Laboratory Guidelines: HIGH Bleeding Risk Procedures Target Laboratory Values3 Ablations: solid organs, bone, soft tissue, lung Arterial diagnostic interventions: aortic, pelvic, mesenteric, peripheral Biliary interventions (including cholecystostomy tube placement) Catheter directed thrombolysis/thrombectomy- DVT, PE, portal vein (Highly case dependent) Deep abscess drainage (e.g., lung parenchyma, abdominal, pelvic, retroperitoneal) Deep non organ biopsies (e.g., spine, soft tissue in intra-abdominal, retroperitoneal, pelvic compartments) Gastrostomy/gastrojejunostomy placement IVC filter removal complex Lumbar puncture Lymphangiography Portal vein interventions Solid organ biopsies Spine procedures with risk of spinal or epidural hematoma (e.g., kyphoplasty, vertebroplasty, epidural injections, facet blocks) Trans jugular intrahepatic portosystemic shunt Port placement/removal (Buried) Urinary tract interventions (including nephrostomy tube placement, ureteral dilation, stone removal) Venous interventions: intrathoracic and MATRIX DRIER TENDER intervention PT/INR < 1.5 - 1.8 (if arterial access, femoral: INR < 1.8, radial: INR < 2.2) Platelets > 50,000/mcL (Consider transfusing platelets if <50,000/mcL) If patient with Chronic Liver Disease (based on expert opinion): PT/INR < 2.5 (Give Vitamin K 10mg infusion if INR >2.5) Platelets > 30,000/mcL (Transfuse platelets if <30,000/mcL in patients with a large spleen) Fibrinogen > 100mg/dL (Consider cryoprecipitate if <100mg/dL) VIR Judy-procedure anticoagulant/antiplatelet guideline (pending P&T review 11/2020): Medication LOW Bleeding Risk^ HIGH Bleeding Risk^ Reinitiation Abciximab (ReoPro ) Hold 24 hrs before procedure Hold 24 hrs before procedure Patient undergoing PCI or within immediate periprocedural period from cardiac intervention; use multidisciplinary, shared decision-making Apixaban (Eliquis ) Do not hold CrCl > 50mL/min: Hold 4 doses CrCl < 30-50mL/min: Hold 6 doses 24 hrs Aspirin OR Aspirin/Dipyridamole (Aggrenox ) Holding strategy for aspirin requires patient-specific approach; for high risk or complex cardiovascular cases, multidisciplinary, shared decision-making is suggested Do not hold Hold for 3-5 days (assumes multidisciplinary evaluation and agreement to interrupt therapy) Resume the day after procedure Argatroban (Acova ) Do not hold Hold 2-4 hrs: check aPTT 4-6 hrs Betrixaban (Bevyxxa ) Do not hold Hold for 3 doses 24 hrs Bivalirudin (Angiomax ) Do not hold Hold 2-4 hrs: check aPTT 4-6 hrs Cangrelor (Kengreal ) Defer procedure until therapy completed; if emergent, multidisciplinary discussion with Cardiology is recommended Defer procedure until therapy completed; if emergent, multidisciplinary discussion with Cardiology is recommended Patient undergoing PCI or within immediate peripro cedural period from cardiac intervention; Use multidisciplinary, shared-decision making Cilostazol (Pletal ) Do not hold Do not hold N/A Clopidogrel (Plavix ) Do not hold Hold for 5 days before procedure 75mg Dose: 6 hrs after procedure Loading Dose (300-600mg): 24 hrs after procedure Dabigatran (Pradaxa ) Do not hold CrCl > 50mL/min: Hold 4 doses CrCl < 30-50mL/min: Hold 6-8 doses Consider checking thrombin time with impaired renal function 24 hrs Edoxaban (Savaysa ) Do not hold Hold for 2 doses 24 hrs Eptifibatide (Integrilin ) Hold 4-8 hrs before procedure Hold 4-8 hrs before procedure Patient undergoing PCI or within immediate periprocedural period from cardiac intervention; Use multidisciplinary, shared decision-making Fondaparinux (Arixtra ) Do not hold CrCl > 50mL/min: Hold 2-3 Days CrCl < 50mL/min: Hold 3-5 days 24 hrs LMWH: Enoxaparin (Lovenox ), Dalteparin (Fragmin ) Do not hold Check anti-Xa level if renal function impaired Prophylactic Enoxaparin: Hold 1 dose Therapeutic Enoxaparin: Hold 2 doses or 24 hrs Dalteparin: Hold 1 dose 12 hrs NSAIDS (short-, 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-, and long-acting) Do not hold No recommendations N/A Prasugrel (Effient ) Do not hold Hold for 7 days before procedure Resume the day after the procedure Rivaroxaban (Xarelto ) Do not hold CrCl > 50mL/min: Hold 2 doses CrCl 30-50mL/min: Hold 2 doses CrCl < 15-30mL/min: Hold 3 doses 24 hrs Ticagrelor (Brilinta ) Do not hold Hold for 5 days before procedure Resume the day after the procedure Tirofiban (Aggrastat ) Hold 4-8 hrs before procedure Hold 4-8 hrs before procedure Patient undergoing PCI or within immediate periprocedural period from cardiac intervention; Use multidisciplinary, shared decision-making Unfractionated Heparin Do not hold IV Heparin: Hold 4-6 hrs before procedure; check aPTT or anti-Xa level SubQ Heparin: Hold 6 hrs before procedure 6-8 hrs Warfarin (Coumadin ) Target INR < 3 Hold 5 days until INR < 1.8 Low Bleeding Risk: N/A or same day for bridged patients High Bleeding Risk: Resume day after procedure; Consider bridging after procedure for high thrombosis risk cases; Use multidisciplinary, shared-decision making to balance bleeding vs. thrombotic risks. [facility] Work Phone: [phone]) 480-885508-02-2024 Note* Plan of Care - Talia Beckford RN - 06/16/2024 5:37 AM EDT POC initiated [id number] Emergency department Note* Ernestina Navarro RN - 06/15/2024 7:52 PM EDT IV NURSE CART SIDE AT THIS TIME. [id number] Emergency department Note* Ernestina Navarro RN - 06/15/2024 7:52 PM EDT US IV NURSE CART SIDE AT THIS TIME. * Ernestina Navarro RN - 06/15/2024 7:51 PM EDT REPORT GIVEN TO UNIT NURSE AT THIS TIME BY ALEJANDRO LOZANO. * Ernestina Navarro RN - 06/15/2024 7:39 PM EDT Hourly rounding assessment completed on the patient. [x] Patient updated on plan of care [x] All comfort needs addressed [x] Patient updated on duration of visit All questions answered, patient denies further needs. Call light within reach. US IV nurse called at this time to obtain US IV. * Bailey Santillan RN - 06/15/2024 6:30 PM EDT Iv attempt x5 unsuccessful by diff staff. * Bailey Santillan RN - 06/15/2024 5:59 PM EDT Pt started peritoneal dialysis this week and is all new to pt. Dr arevalo placed May 19, 2024..His kidney dr thinks the peritoneal is leaking in him causing the swelling. The plan is to rest the peritoneum. Now pt will be getting hemodialysis after his port is placed tomorrow with a goal of going back to peritoneal dialysis. Pt has seen Dr. Miller for the last 5 years to keep an eye on his kidneys because he was stage 3 and diabetic. Now pt is stage 5. Pt moved to [place], [place] so continues to drive to [place]. * Arleen Lockhart RN - 06/15/2024 5:24 PM EDT Bed: 19 Expected date: Expected time: Means of arrival: Comments: NEXT * Deng Palacios DO - 06/15/2024 4:58 PM EDT [facility] EMERGENCY DEPARTMENT ATTENDING NOTE: NAME: Lorenzo Amato CSN: [id number] 54 y.o. PCP: Lion Carlson MD History: Chief Complaint: Groin Swelling HPI: The history was obtained from the patient. Lorenzo is a 54 y.o. male who presents with a chief complaint of Groin Swelling. This is a 54-year-old male with medical history of CKD who presents emergency department with a chief complaint of lower extremity swelling. Patient is he had swelling in the right and left groin for the last several days. Worsening. He was advised to come here by nephrology. Patient has no complaints other than fluid in his groin region extremities. The industrial hygienist was bedside and request that the patient be admitted for dialysis. Did not ask for any other intervention or workup. 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 Gracie Miller Venous embolism lungs and legs Vitamin D deficiency PMSx: Past Surgical History: Procedure Laterality Date APPENDECTOMY COLONOSCOPY last was 2015, polyps, done in [place], 2 procdures CORONARY ANGIOPLASTY WITH STENT PLACEMENT has had 2 surgeries, 2019 most recent ESOPHAGOGASTRODUODENOSCOPY last was done in [place], gastic tumor, INSULIN PUMP AND GLUCOSE SENSOR IR IVC FILTER PLACEMENT 2012 for Blood clots MT LAPS INSERTION TUNNELED INTRAPERITONEAL CATHETER N/A 05/19/2024 PD cath, [facility].....Dr. Brian Arevalo TATTOO TEETH EXTRACTION TRANSFUSION BLOOD PRODUCT VASECTOMY FAM. Hx: Family History Problem Relation Age of Onset Uterine cancer Mother Heart disease Father Rheum arthritis Brother Coronary artery disease Brother SOC. Hx: Social History Socioeconomic History Marital status: Tobacco Use Smoking status: Never Smokeless tobacco: Former Types: Chew Vaping Use Vaping status: Never Used Substance and Sexual Activity Alcohol use: Not Currently Comment: did drank occassionally in past Drug use: Never Social Determinants of Health Financial Resource Strain: Low Risk (03/17/2024) Received from [facility] Overall Financial Resource Strain (CARDIA) Difficulty of Paying Living Expenses: Not very hard Food Insecurity: No Food Insecurity (03/17/2024) Received from [facility] Hunger Vital Sign Worried About Running Out of Food in the Last Year: Never true Ran Out of Food in the Last Year: Never true Transportation Needs: Unknown (03/17/2024) Received from [facility] PRAPARE - Transportation Lack of Transportation (Non-Medical): No Housing Stability: Unknown (03/17/2024) Received from [facility] Housing Stability Vital Sign In the last 12 months, was there a time when you did not have a steady place to sleep or slept in [facility] (including now)?: No MEDs: Previous Medications Medication Sig atorvastatin (LIPITOR) 80 MG tablet Take 1 (one) tablet (80 mg total) by mouth nightly . busPIRone (BUSPAR) 15 MG tablet 1 (one) tablet (15 mg total) 3 (three) times a day . clopidogreL (PLAVIX) 75 mg tablet Take 1 (one) tablet (75 mg total) by mouth every morning Start: 05/22/24. DULoxetine (CYMBALTA) 60 MG capsule Take 1 (one) capsule (60 mg total) by mouth every morning . Eliquis 5 mg Tab Take 1 (one) tablet (5 mg total) by mouth 2 (two) times a day Start: 05/22/24. ergocalciferol (Vitamin D2) 1,250 mcg (50,000 unit) capsule Take 1 (one) capsule (50,000 Units total) by mouth once a week On Mondays . fluticasone propionate (FLONASE) 50 mcg/actuation nasal spray Instill 2 (two) sprays into each nostril daily as needed . furosemide (LASIX) 20 MG tablet Take 1 (one) tablet (20 mg total) by mouth daily as needed . glucagon 1 mg/mL SolR Inject 1 mL (1 mg total) into the shoulder, thigh, or buttocks as needed . hydrALAZINE (APRESOLINE) 100 MG tablet Take 1 (one) tablet (100 mg total) by mouth 2 (two) times a day . insulin lispro (AdmeLOG,HumaLOG) 100 unit/mL injection Inject under the skin Reasons: max dose 250units daily. meclizine (ANTIVERT) 25 mg tablet Take 1 (one) tablet (25 mg total) by mouth 3 (three) times a day as needed for nausea . metoprolol tartrate (LOPRESSOR) 100 MG tablet Take 1 (one) tablet (100 mg total) by mouth 2 (two) times a day . OCTREOTIDE ACETATE SUBQ Inject 30 mg under the skin every 28 days . octreotide ER (SandoSTATIN [place]) 30 mg injection Inject 30 (thirty) mg into the shoulder, thigh, or buttocks every 28 days . omeprazole (PRILOSEC) 40 MG capsule Take 1 (one) capsule (40 mg total) by mouth 2 (two) times a day. senna-docusate (SENNA-S) 8.6-50 mg Take 1 (one) tablet by mouth 2 (two) times a day as needed . triamcinolone (KENALOG) 0.1 % cream 2 (two) times a day as needed . ALL: Allergies Allergen Reactions Lisinopril Cough Toradol [Ketorolac] Other (See Comments) Kidney failure ROS: Review of Systems Constitutional: Negative. Respiratory: Negative. Cardiovascular: Positive for leg swelling. Negative for chest pain and palpitations. Gastrointestinal: Negative. Genitourinary: Negative. Positives and pertinent negatives as per HPI. All other systems were reviewed and are negative. Physical Exam: Patient Vitals for the past 24 hrs: BP Temp Temp src Pulse Resp SpO2 06/15/24 1525 -- 97.4 F (36.3 C) Oral -- -- -- 06/15/24 1524 (!) 168/77 -- -- 74 18 97 % Physical Exam Vitals and nursing note reviewed. Constitutional: General: He is awake. He is not in acute distress. Appearance: Normal appearance. He is not ill-appearing, toxic-appearing or diaphoretic. HENT: Head: Normocephalic and atraumatic. Nose: Nose normal. Eyes: General: Lids are normal. No scleral icterus. Cardiovascular: Rate and Rhythm: Normal rate and regular rhythm. Heart sounds: No murmur heard. Musculoskeletal: Right lower leg: Edema present. Left lower leg: Edema present. Pulmonary: Effort: Pulmonary effort is normal. No respiratory distress. Breath sounds: Normal breath sounds. No decreased breath sounds, wheezing, rhonchi or rales. Abdominal: General: Abdomen is flat. Bowel sounds are normal. Tenderness: There is no abdominal tenderness. There is no guarding or rebound. Skin: General: Skin is warm and dry. Findings: No rash. Comments: No acute visible rash on exposed skin surfaces. Neurological: General: No focal deficit present. Mental Status: He is alert and oriented to person, place, and time. Psychiatric: Mood and Affect: Mood normal. Behavior: Behavior normal. Behavior is cooperative. Laboratory & Radiological Imaging (if done): Labs Reviewed CBC AND DIFFERENTIAL Narrative: The following orders were created for panel order CBC and Differential. Procedure Abnormality Status --------- ------ CBC Auto Differential[[id number]] Please view results for these tests on the individual orders. COMPREHENSIVE METABOLIC PANEL PT/INR CBC WITH AUTO DIFFERENTIAL No orders to display Procedures: Procedures ED Course / Medical Decision Making: I did personally review Lorenzo's past medical history, surgical history, social history, as well asfamily history (when relevant). In this case, I also oversaw the his drug management by reviewing his medication list, allergy list, as well as the medications that I prescribed during the ED course and/or recommended as an out-patient (including possible OTC medications such as acetaminophen, NSAIDs , etc). His past medical problem list included: Active Ambulatory Problems Diagnosis Date Noted ESRF (end stage renal failure) ([facility]) 05/01/2024 Essential hypertension 03/09/2013 CAD (coronary artery disease) 10/01/2011 Diabetes mellitus ([facility]) 03/09/2013 Generalized anxiety disorder 02/14/2016 GERD (gastroesophageal reflux disease) 02/04/2012 Mixed hyperlipidemia 10/01/2011 NABOR (obstructive sleep apnea) 10/01/2011 Neuroendocrine tumor 2024 Presence of IVC filter 2024 MS (multiple sclerosis) ([facility]) 2024 Preop examination 2024 Resolved Ambulatory Problems Diagnosis Date Noted No Resolved Ambulatory Problems Past Medical History: Diagnosis Date Anemia Arthritis Coronary artery disease COVID Depression with anxiety Diabetes mellitus, type 2 ([facility]) Dyspnea on exertion Gastric tumor Hyperlipidemia Hypertension Obesity Proteinuria Rash Stage 5 chronic kidney disease (HCC) Venous embolism Vitamin D deficiency ED MEDICATIONS GIVEN: Medications - No data to display After reviewing the items above, I did look at previous medical documentation, such as recent hospitalizations, office visits, and/or recent consultations with PCP/specialist. SDOH: Another factor that I considered in Lorenzo's care was his Social Determinants of Health (SDOH). During this ED encounter, he did NOT appear to have any significant issues identified. LAB TESTING: Ancillary lab testing: RADIOLOGY: I did consider radiological studies for Lorenzo's care today: ED COURSE: This is a 54-year-old male with medical history of CKD who presents emergency departmentwith a chief complaint of lower extremity swelling. Patient is he had swelling in the right and left groin for the last several days. Worsening. He was advised to come here by nephrology. Patient hasno complaints other than fluid in his groin region extremities. The industrial hygienist was bedside and request that the patient be admitted for dialysis. Did not ask for any other intervention or workup. . There appears to be fluid in the bilateral groin region. Patient nontoxic- appearing. Hypertensive. Patient denies any chest pain or shortness of breath. Nephrology is bedside and requested patient beadmitted to hospital service for further workup and management. Nephrology was consulted. Patient be admitted for further management. Clinical Impression: 1. Fluid retention Disposition: ED Disposition ED Disposition Hospitalize Condition -- Comment Recommended Level of Care: Med Surg Phone call required?: No Deng Palacios DO, DO ED Attending Physician [facility] EMERGENCY DEPARTMENT Deng Palacios DO 06/15/24 1659 * Chaka Vogt RN - 06/15/2024 3:23 PM EDT PATIENT PRESENTS TO THE ED FROM HOME FOR RIGHT SIDED GROIN SWELLING HE HAS BEEN TRAINING FOR AT HOME PERITONEAL DIALYSIS. AFTER PLACING IN FLUID TODAY, PATIENT FELT SWELLING ON THE RIGHT SIDE OF HIS GRAIN. DR. MILLER RECOMMENDED HE COME IN TO BEEN EVALUATED. documented in this [id number] Emergency department Note* Ernestina Navarro RN - 06/15/2024 7:51 PM EDT REPORT GIVEN TO UNIT NURSE AT THIS TIME BY ALEJANDRO LOZANO. [id number] Emergency department Note* Ernestina Navarro RN - 06/15/2024 7:39 PM EDT Hourly rounding assessment completed on the patient. [x] Patient updated on plan of care [x] All comfort needs addressed [x] Patient updated on duration of visit All questions answered, patient denies further needs. Call light within reach. US IV nurse called at this time to obtain US IV. [id number] Emergency department Note* Bailey Santillan RN - 06/15/2024 6:30 PM EDT Iv attempt x5 unsuccessful by diff staff. [id number] Emergency department Triage note* Bailey Santillan RN - 06/15/2024 5:59 PM EDT Pt started peritoneal dialysis this week and is all new to pt. Dr arevalo placed May 19, 2024..His kidney dr thinks the peritoneal is leaking in him causing the swelling. The plan is to rest the peritoneum. Now pt will be getting hemodialysis after his port is placed tomorrow with a goal of going back to peritoneal dialysis. Pt has seen Dr. Miller for the last 5 years to keep an eye on his kidneys because he was stage 3 and diabetic. Now pt is stage 5. Pt moved to [place], [place] so continues to drive to [place]. [id number] Emergency department Note* Arleen Lockhart RN - 06/15/2024 5:24 PM EDT Bed: 19 Expected date: Expected time: Means of arrival: Comments: NEXT [id number] Consult note* Delroy Fletcher MD - 06/15/2024 5:14 PM EDTAssociated Order(s): IP CONSULT TO NEPHROLOGY NEPHROLOGY CONSULTATION [facility] Patient Name: Lorenzo Amato MR #: [id number] : 1970 Requesting physician: ER physician Reason for consult: End-stage kidney disease Impression: End-stage kidney disease on peritoneal dialysis with Dr. Carline Miller -EDW to be established On examination, he does not have unilateral extremity swelling or scrotal swelling that is out of proportion. Certainly PD may cause hernias and extravasation of peritoneal fluid. Although this is less likely, we will consult Dr. Arevalo for further evaluation. More likely cause for his swelling is that he has significant anasarca. I had a long discussion with patient and today regarding starting him on hemodialysis temporarily to ameliorate the anasarca. He understands and is agreeable with the plan. Will consult IR for tunneled dialysis catheter placement. Will consult case management for outpatient dialysis with me on Wednesday basis as ESRD. I expect that he can go back to peritoneal dialysis (barring no objections from surgical standpoint) in the next 3 to 4 weeks. Recommend holding Eliquis for now for tunneled dialysis catheter placement. May start heparin drip if needed HD daily while in the hospital to UF aggressively. Anasarca From end-stage kidney disease Will check 2D echo 3. Anemia -Outpatient hemoglobin of 9.4 on 06/12 -Transferrin saturation of 11. Will continue IV iron 4. Hypertension -In part from anasarca -Expect this to improve with UF as above -May resume metoprolol 100 mg twice a day; also on hydralazine 100 mg twice a day and Lasix 40 mg twice a day. 5. Secondary hyperparathyroidism -Last PTH of 416 and phosphorus of 6.2. Has vitamin D deficiency History of Presenting Illness: Lorenzo Amato is 54-year-old gentleman with end-stage kidney disease on peritoneal dialysis (started training on 06/12) under the guidance of Dr. Carline Miller presents to the hospital with right groin swelling. His PD catheter was placed on 05/[address] Arevalo. This is his fourth day of PD training; after his second exchange today, patient reported sudden swelling of his right groin and leg,which prompted his visit to the ER. He denies chest pain, testicular pain, shortness of breath, vomiting or diarrhea. We are being consulted for management of his end-stage kidney disease. 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 Gracie Miller Venous embolism lungs and legs Vitamin D deficiency Past Surgical History: Procedure Laterality Date APPENDECTOMY COLONOSCOPY last was 2015, polyps, done in [place], 2 procdures CORONARY ANGIOPLASTY WITH STENT PLACEMENT has had 2 surgeries, 2019 most recent ESOPHAGOGASTRODUODENOSCOPY last was done in [place], gastic tumor, INSULIN PUMP AND GLUCOSE SENSOR IR IVC FILTER PLACEMENT 2012 for Blood clots MT LAPS INSERTION TUNNELED INTRAPERITONEAL CATHETER N/A 05/19/2024 PD cath, ESRF.....Dr. Brian Arevalo TATTOO TEETH EXTRACTION TRANSFUSION BLOOD PRODUCT VASECTOMY Family History: Family History Problem Relation Age of Onset Uterine cancer Mother Heart disease Father Rheum arthritis Brother Coronary artery disease Brother [] Unable to obtain due to ventilated and/or neurologic status Social History Socioeconomic History Marital status: Tobacco Use Smoking status: Never Smokeless tobacco: Former Types: Chew Vaping Use Vaping status: Never Used Substance and Sexual Activity Alcohol use: Not Currently Comment: did drank occassionally in past Drug use: Never Social Determinants of Health Financial Resource Strain: Low Risk (03/17/2024) Received from [facility] Overall Financial Resource Strain (CARDIA) Difficulty of Paying Living Expenses: Not very hard Food Insecurity: No Food Insecurity (03/17/2024) Received from [facility] Hunger Vital Sign Worried About Running Out of Food in the Last Year: Never true Ran Out of Food in the Last Year: Never true Transportation Needs: Unknown (03/17/2024) Received from [facility] PRAPARE - Transportation Lack of Transportation (Non-Medical): No Housing Stability: Unknown (03/17/2024) Received from [facility] Housing Stability Vital Sign In the last 12 months, was there a time when you did not have a steady place to sleep or slept in ashelter (including now)?: No [] Unable to obtain due to ventilated and/or neurologic status Home Medications: Outpatient Medications as of 06/15/2024 Medication Sig atorvastatin (LIPITOR) 80 MG tablet Take 1 (one) tablet (80 mg total) by mouth nightly . busPIRone (BUSPAR) 15 MG tablet 1 (one) tablet (15 mg total) 3 (three) times a day . clopidogreL (PLAVIX) 75 mg tablet Take 1 (one) tablet (75 mg total) by mouth every morning Start: 05/22/24. DULoxetine (CYMBALTA) 60 MG capsule Take 1 (one) capsule (60 mg total) by mouth every morning . Eliquis 5 mg Tab Take 1 (one) tablet (5 mg total) by mouth 2 (two) times a day Start: 05/22/24. ergocalciferol (Vitamin D2) 1,250 mcg (50,000 unit) capsule Take 1 (one) capsule (50,000 Units total) by mouth once a week On Mondays . fluticasone propionate (FLONASE) 50 mcg/actuation nasal spray Instill 2 (two) sprays into each nostril daily as needed . furosemide (LASIX) 20 MG tablet Take 1 (one) tablet (20 mg total) by mouth daily as needed . glucagon 1 mg/mL SolR Inject 1 mL (1 mg total) into the shoulder, thigh, or buttocks as needed . hydrALAZINE (APRESOLINE) 100 MG tablet Take 1 (one) tablet (100 mg total) by mouth 2 (two) times a day . insulin lispro (AdmeLOG,HumaLOG) 100 unit/mL injection Inject under the skin Reasons: max dose 250units daily. meclizine (ANTIVERT) 25 mg tablet Take 1 (one) tablet (25 mg total) by mouth 3 (three) times a day as needed for nausea . metoprolol tartrate (LOPRESSOR) 100 MG tablet Take 1 (one) tablet (100 mg total) by mouth 2 (two) times a day . OCTREOTIDE ACETATE SUBQ Inject 30 mg under the skin every 28 days . octreotide ER (SandoSTATIN [place]AR [place]) 30 mg injection Inject 30 (thirty) mg into the shoulder, thigh, or buttocks every 28 days . omeprazole (PRILOSEC) 40 MG capsule Take 1 (one) capsule (40 mg total) by mouth 2 (two) times a day. senna-docusate (SENNA-S) 8.6-50 mg Take 1 (one) tablet by mouth 2 (two) times a day as needed . triamcinolone (KENALOG) 0.1 % cream 2 (two) times a day as needed . Current Hospital Medications: Scheduled Meds: Continuous Infusions: PRN Meds:. Allergies: I have reviewed the patient's allergies. Lisinopril and Toradol [ketorolac] Review of Systems: [x] CV, Resp, GI, Neuro, and all other systems reviewed and negative other than listed in HPI. Objective Findings: Vitals:BP (!) 168/77 Pulse 74 Temp 97.4 F (36.3 C) (Oral) Resp 18 SpO2 97% Intake/Output last 3 shifts:No intake or output data in the 24 hours ending 06/15/24 1714No intake/output data recorded. Physical Examination: General: Age appropriate, NAD. HEENT: Normocephalic, no scleral icterus. Neck: No JVD. Heart: Regular, no murmur, no rub/gallop. Lungs: Clear to ascultation, no rales/wheezing/rhonchi. Good chest wall excursion. Abdomen: Soft, nontender, no supra-public fullness or tenderness. Penile edema with mild scrotal edema Extremities: No clubbing/cyanosis, 2-3+ lower extremity edema. Skin: Warm, dry, no rash, no bruise, no petichiae. Neuro: No myoclonus or tremor. Psych: Normal affect. PD catheter c/d/I Results/Medications Reviewed: 06/15/24 5:14 PM: Laboratory, Microbiology, Pathology, Radiology, Cardiology, Medications and Transcriptions Laboratory: Invalid input(s): ALB Urinalysis Risk/Complexity: [x] I have reviewed Progress Notes in the [facility] EHR and CareEverywhere. [x] I have interpreted/reviewed lab tests and radiography data in the [facility] EHR. [x] I have discussed the case with the primary service. [x] I have ordered appropriate tests/labs Comments: Thank you for allowing us to participate in the care of this patient. We will continue to follow. Please call if questions or concerns arise. Potential limitations of the note: Parts of this note were created by dictation via voice recognition software ([employer]). The completed note was reviewed for accuracy. However, there may be subtle errors that were not found during the review. If such errors are discovered, or if there are any questions or concerns regarding the recommendations/plan of care, please contact the author of the note prior to undertaking the recommendations/plan of care. [id number] History and physical note* Sherman Zelaya DO - 06/15/2024 5:09 PM EDT [facility] [place] [facility] -- [facility] Patient Name: Lorenzo Amato : 1970 MR #: [id number] Admit Date: 06/15/2024 Physicians: Lion Carlson MD (Family); Gracie Miller MD (Referring) Lorenzo Amato is a 54 y.o. male patient of Lion Carlson MD with history of anemia, CAD, depression, diabetes mellitus, GERD, dyslipidemia, hypertension, MS, morbid obesity, NABOR, presented to [facility] on 06/15/2024 with groin swelling. 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 Previous PE in 2004 Bilateral DVT Previous GI bleed while on Eliquis S/p IVC filter which was clotted Currently was on Eliquis Due to extensive history of thromboembolic disease, will hold Eliquis for now due to the procedure tomorrow and start the patient heparin drip without bolus Continue to monitor Hypertension Dyslipidemia Continue statin, hydralazine, metoprolol and Lasix Diabetes mellitus Last A1c 5 months ago 8.6 Pt has insulin pump, Keep BG 140 and 180 Depression Continue Cymbalta and BuSpar CAD S/p TIFFANIE x 4, last 2018 Continue Plavix, metoprolol, Lasix MS Morbid obesity NABOR BMI 45.04 Lifestyle modification advised to the patient Residence prior to admission: house or apartment Was patient transferred from outlying hospital or ED no Quality Measures DVT Prophylaxis: heparin gtt Bill Catheter: absent Medication Reconciliation: Verified Admitted with these risk variables:Fluid Overload. Please see assessment and plan for further details. Estimated Date of Discharge less than 2 midnights Code Status Full Code; code status verified on 06/15/2024 with patient (capacity intact) Chief Complaint groin swelling History of Present Illness Lorenzo Amato is a 54 y.o. male patient of Lion Carlson MD with history of anemia, CAD, depression, diabetes mellitus, GERD, dyslipidemia, hypertension, MS, morbid obesity, NABOR, presented to [facility] on 06/15/2024 with groin swelling. Patient presented to the ER with lower extremity swellingwith bilateral groin swelling for the last several days. He was seen by his industrial hygienist and was advised for admission for dialysis. Patient was on presented for 4 days, today he noticed bilateral swelling of the groin after drinking the fluid in the PD. 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 Patient has history of GI bleed. 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 Gracie Miller Venous embolism lungs and legs Vitamin D deficiency Past Surgical History Past Surgical History: Procedure Laterality Date APPENDECTOMY COLONOSCOPY last was 2014, polyps, done in [place], 2 procdures CORONARY ANGIOPLASTY WITH STENT PLACEMENT has had 2 surgeries, 2019 most recent ESOPHAGOGASTRODUODENOSCOPY last was done in [place], gastic tumor, INSULIN PUMP AND GLUCOSE SENSOR IR IVC FILTER PLACEMENT 2012 for Blood clots MT LAPS INSERTION TUNNELED INTRAPERITONEAL CATHETER N/A 05/19/2024 PD cath, ESRF.....Dr. Brian PRETTY TEETH EXTRACTION TRANSFUSION BLOOD PRODUCT VASECTOMY Family History Family History Problem Relation Age of Onset Uterine cancer Mother Heart disease Father Rheum arthritis Brother Coronary artery disease Brother Social History Social History Tobacco Use Smoking Status Never Smokeless Tobacco Former Types: Chew Social History Substance and Sexual Activity Alcohol Use Not Currently Comment: did drank occassionally in past Social History Substance and Sexual Activity Drug Use Never Allergy Information I have reviewed the patient's allergies. Lisinopril and Toradol [ketorolac] Home Medications Home medications were reviewed. Review Of Systems All relevant systems have been reviewed and are negative except as noted in HPI or below Physical Examination BP (!) 168/77 Pulse 74 Temp 97.4 F (36.3 C) (Oral) Resp 18 SpO2 97% General Appearance: alert; chronically ill appearing; in no acute distress HEENT: Head- normocephalic; Eyes- EOMI, sclera anicteric; Throat- mucous membranes moist Cardiovascular: regular rate and rhythm; normal S1, S2; no murmurs, rubs, clicks or gallops; peripheral edema 4+ Respiratory: lungs clear to auscultation; without wheezes, rales or rhonchi; on room air Abdomen: soft, distended, nontender abdomen, positive BS in all 4 quadrants, bilateral swelling in the groin, nontender Neurological: oriented x 3; normal speech; no focal findings or movement disorder noted Musculoskeletal: no significant deformity or tenderness to palpation Skin: normal coloration Psych: normal mood and affect [id number] Physician Emergency department Note* Deng Palacios DO - 06/15/2024 4:58 PM EDT [facility] EMERGENCY DEPARTMENT ATTENDING NOTE: NAME: Lorenzo Amato CSN: [id number] 54 y.o. PCP: Lion Carlson MD History: Chief Complaint: Groin Swelling HPI: The history was obtained from the patient. Lorenzo is a 54 y.o. male who presents with a chief complaint of Groin Swelling. This is a 54-year-old male with medical history of CKD who presents emergency department with a chief complaint of lower extremity swelling. Patient is he had swelling in the right and left groin for the last several days. Worsening. He was advised to come here by nephrology. Patient has no complaints other than fluid in his groin region extremities. The industrial hygienist was bedside and request that the patient be admitted for dialysis. Did not ask for any other intervention or workup. 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 Gracie Miller Venous embolism lungs and legs Vitamin D deficiency PMSx: Past Surgical History: Procedure Laterality Date APPENDECTOMY COLONOSCOPY last was 2014, polyps, done in [place], 2 procdures CORONARY ANGIOPLASTY WITH STENT PLACEMENT has had 2 surgeries, 2019 most recent ESOPHAGOGASTRODUODENOSCOPY last was done in [place], gastic tumor, INSULIN PUMP AND GLUCOSE SENSOR IR IVC FILTER PLACEMENT 2012 for Blood clots MT LAPS INSERTION TUNNELED INTRAPERITONEAL CATHETER N/A 05/19/2024 PD cath, ESRF.....Dr. Brian Arevalo TATTOO TEETH EXTRACTION TRANSFUSION BLOOD PRODUCT VASECTOMY FAM. Hx: Family History Problem Relation Age of Onset Uterine cancer Mother Heart disease Father Rheum arthritis Brother Coronary artery disease Brother SOC. Hx: Social History Socioeconomic History Marital status: Tobacco Use Smoking status: Never Smokeless tobacco: Former Types: Chew Vaping Use Vaping status: Never Used Substance and Sexual Activity Alcohol use: Not Currently Comment: did drank occassionally in past Drug use: Never Social Determinants of Health Financial Resource Strain: Low Risk (03/17/2024) Received from [facility] Overall Financial Resource Strain (CARDIA) Difficulty of Paying Living Expenses: Not very hard Food Insecurity: No Food Insecurity (03/17/2024) Received from [facility] Hunger Vital Sign Worried About Running Out of Food in the Last Year: Never true Ran Out of Food in the Last Year: Never true Transportation Needs: Unknown (03/17/2024) Received from [facility] PRAPARE - Transportation Lack of Transportation (Non-Medical): No Housing Stability: Unknown (03/17/2024) Received from [facility] Housing Stability Vital Sign In the last 12 months, was there a time when you did not have a steady place to sleep or slept in [facility] (including now)?: No MEDs: Previous Medications Medication Sig atorvastatin (LIPITOR) 80 MG tablet Take 1 (one) tablet (80 mg total) by mouth nightly . busPIRone (BUSPAR) 15 MG tablet 1 (one) tablet (15 mg total) 3 (three) times a day . clopidogreL (PLAVIX) 75 mg tablet Take 1 (one) tablet (75 mg total) by mouth every morning Start: 05/22/24. DULoxetine (CYMBALTA) 60 MG capsule Take 1 (one) capsule (60 mg total) by mouth every morning . Eliquis 5 mg Tab Take 1 (one) tablet (5 mg total) by mouth 2 (two) times a day Start: 05/22/24. ergocalciferol (Vitamin D2) 1,250 mcg (50,000 unit) capsule Take 1 (one) capsule (50,000 Units total) by mouth once a week On Mondays . fluticasone propionate (FLONASE) 50 mcg/actuation nasal spray Instill 2 (two) sprays into each nostril daily as needed . furosemide (LASIX) 20 MG tablet Take 1 (one) tablet (20 mg total) by mouth daily as needed . glucagon 1 mg/mL SolR Inject 1 mL (1 mg total) into the shoulder, thigh, or buttocks as needed . hydrALAZINE (APRESOLINE) 100 MG tablet Take 1 (one) tablet (100 mg total) by mouth 2 (two) times a day . insulin lispro (AdmeLOG,HumaLOG) 100 unit/mL injection Inject under the skin Reasons: max dose 250units daily. meclizine (ANTIVERT) 25 mg tablet Take 1 (one) tablet (25 mg total) by mouth 3 (three) times a day as needed for nausea . metoprolol tartrate (LOPRESSOR) 100 MG tablet Take 1 (one) tablet (100 mg total) by mouth 2 (two) times a day . OCTREOTIDE ACETATE SUBQ Inject 30 mg under the skin every 28 days . octreotide ER (SandoSTATIN [place]AR [place]) 30 mg injection Inject 30 (thirty) mg into the shoulder, thigh, or buttocks every 28 days . omeprazole (PRILOSEC) 40 MG capsule Take 1 (one) capsule (40 mg total) by mouth 2 (two) times a day. senna-docusate (SENNA-S) 8.6-50 mg Take 1 (one) tablet by mouth 2 (two) times a day as needed . triamcinolone (KENALOG) 0.1 % cream 2 (two) times a day as needed . ALL: Allergies Allergen Reactions Lisinopril Cough Toradol [Ketorolac] Other (See Comments) Kidney failure ROS: Review of Systems Constitutional: Negative. Respiratory: Negative. Cardiovascular: Positive for leg swelling. Negative for chest pain and palpitations. Gastrointestinal: Negative. Genitourinary: Negative. Positives and pertinent negatives as per HPI. All other systems were reviewed and are negative. Physical Exam: Patient Vitals for the past 24 hrs: BP Temp Temp src Pulse Resp SpO2 06/15/24 1525 -- 97.4 F (36.3 C) Oral -- -- -- 06/15/24 1524 (!) 168/77 -- -- 74 18 97 % Physical Exam Vitals and nursing note reviewed. Constitutional: General: He is awake. He is not in acute distress. Appearance: Normal appearance. He is not ill-appearing, toxic-appearing or diaphoretic. HENT: Head: Normocephalic and atraumatic. Nose: Nose normal. Eyes: General: Lids are normal. No scleral icterus. Cardiovascular: Rate and Rhythm: Normal rate and regular rhythm. Heart sounds: No murmur heard. Musculoskeletal: Right lower leg: Edema present. Left lower leg: Edema present. Pulmonary: Effort: Pulmonary effort is normal. No respiratory distress. Breath sounds: Normal breath sounds. No decreased breath sounds, wheezing, rhonchi or rales. Abdominal: General: Abdomen is flat. Bowel sounds are normal. Tenderness: There is no abdominal tenderness. There is no guarding or rebound. Skin: General: Skin is warm and dry. Findings: No rash. Comments: No acute visible rash on exposed skin surfaces. Neurological: General: No focal deficit present. Mental Status: He is alert and oriented to person, place, and time. Psychiatric: Mood and Affect: Mood normal. Behavior: Behavior normal. Behavior is cooperative. Laboratory & Radiological Imaging (if done): Labs Reviewed CBC AND DIFFERENTIAL Narrative: The following orders were created for panel order CBC and Differential. Procedure Abnormality Status --------- ------ CBC Auto Differential[[id number]] Please view results for these tests on the individual orders. COMPREHENSIVE METABOLIC PANEL PT/INR CBC WITH AUTO DIFFERENTIAL No orders to display Procedures: Procedures ED Course / Medical Decision Making: I did personally review Lorenzo's past medical history, surgical history, social history, as well asfamily history (when relevant). In this case, I also oversaw the his drug management by reviewing his medication list, allergy list, as well as the medications that I prescribed during the ED course and/or recommended as an out-patient (including possible OTC medications such as acetaminophen, NSAIDs , etc). His past medical problem list included: Active Ambulatory Problems Diagnosis Date Noted ESRF (end stage renal failure) ([facility]) 05/01/2024 Essential hypertension 03/09/2013 CAD (coronary artery disease) 10/01/2011 Diabetes mellitus ([facility]) 03/09/2013 Generalized anxiety disorder 02/14/2016 GERD (gastroesophageal reflux disease) 02/04/2012 Mixed hyperlipidemia 10/01/2011 NABOR (obstructive sleep apnea) 10/01/2011 Neuroendocrine tumor 2024 Presence of IVC filter 2024 MS (multiple sclerosis) ([facility]) 2024 Preop examination 2024 Resolved Ambulatory Problems Diagnosis Date Noted No Resolved Ambulatory Problems Past Medical History: Diagnosis Date Anemia Arthritis Coronary artery disease COVID Depression with anxiety Diabetes mellitus, type 2 ([facility]) Dyspnea on exertion Gastric tumor Hyperlipidemia Hypertension Obesity Proteinuria Rash Stage 5 chronic kidney disease ([facility]) Venous embolism Vitamin D deficiency ED MEDICATIONS GIVEN: Medications - No data to display After reviewing the items above, I did look at previous medical documentation, such as recent hospitalizations, office visits, and/or recent consultations with PCP/specialist. SDOH: Another factor that I considered in Lorenzo's care was his Social Determinants of Health (SDOH). During this ED encounter, he did NOT appear to have any significant issues identified. LAB TESTING: Ancillary lab testing: RADIOLOGY: I did consider radiological studies for Lorenzo's care today: ED COURSE: This is a 54-year-old male with medical history of CKD who presents emergency departmentwith a chief complaint of lower extremity swelling. Patient is he had swelling in the right and left groin for the last several days. Worsening. He was advised to come here by nephrology. Patient hasno complaints other than fluid in his groin region extremities. The industrial hygienist was bedside and request that the patient be admitted for dialysis. Did not ask for any other intervention or workup. . There appears to be fluid in the bilateral groin region. Patient nontoxic- appearing. Hypertensive. Patient denies any chest pain or shortness of breath. Nephrology is bedside and requested patient beadmitted to hospital service for further workup and management. Nephrology was consulted. Patient be admitted for further management. Clinical Impression: 1. Fluid retention Disposition: ED Disposition ED Disposition Hospitalize Condition -- Comment Recommended Level of Care: Med Surg Phone call required?: No Deng Palacios DO, DO ED Attending Physician [facility] EMERGENCY DEPARTMENT Deng Palacios DO 06/15/24 [id number] Emergency department Triage note* Chaka Vogt, ALEJANDRO - 06/15/2024 3:23 PM EDT PATIENT PRESENTS TO THE ED FROM HOME FOR RIGHT SIDED GROIN SWELLING HE HAS BEEN TRAINING FOR AT HOME PERITONEAL DIALYSIS. AFTER PLACING IN FLUID TODAY, PATIENT FELT SWELLING ON THE RIGHT SIDE OF HIS GRAIN. DR. MILLER RECOMMENDED HE COME IN TO BEEN EVALUATED. [id number] NoteOFFICE VISIT REASON FOR VISIT F/u after lap PD cath insertion. Subjective No complaints. Vitals BP 131/68 Pulse 72 Wt (!) 138.3 kg (305 lb) BMI 45.04 kg/m Exam Alert, NAD, cooperative, in a wheelchair. Abd: incisions healing well. Labs, Imaging, Pathology Assessment / Plan / Follow-up Renal failure. Doing well after PD catheter insertion. F/u PRN. AUTHENTICATED BY BRIAN AREVALO, ON 06/12/2024 17:00:[address] [place] [address] Ambulatory 06-12-2024 History of Present illness Narrative* Brian Arevalo MD - 06/12/2024 4:58 PM EDT OFFICE VISIT REASON FOR VISIT F/u after lap PD cath insertion. Subjective No complaints. Vitals BP 131/68 Pulse 72 Wt (!) 138.3 kg (305 lb) BMI 45.04 kg/m Exam Alert, NAD, cooperative, in a wheelchair. Abd: incisions healing well. Labs, Imaging, Pathology Assessment / Plan / Follow-up Renal failure. Doing well after PD catheter insertion. F/u PRN. documented in this [id number] Note* Addendum Note - Brian Arevalo MD - 05/11/2024 5:10 PM EDTAddended by: BRIAN AREVALO on: 05/11/2024 05:10 PM Modules accepted: Orders [id number] Note* Addendum Note - Brian Arevalo MD - 05/11/2024 5:10 PM EDTAddended by: BRIAN AREVALO on: 05/11/2024 05:10 PM Modules accepted: Orders [id number] Miscellaneous Notes* Addendum Note - Brian Arevalo MD - 05/11/2024 5:10 PM EDTAddended by: BRIAN AREVALO on: 05/11/2024 05:10 PM Modules accepted: Orders documented in this [id number] NoteOFFICE VISIT REASON FOR VISIT F/u after CT scan Subjective Presents with his . No new complaints. Vitals BP (!) 169/80 (BP Location: Left arm, Patient Position: Sitting, BP Cuff Size: Adult) Pulse 73 Ht 5' 9 Wt (!) 138.4 kg (305 lb 1.6 oz) SpO2 95% BMI 45.06 kg/m Exam Alert, NAD, cooperative, obese, in a wheelchair Labs, Imaging, Pathology CTAP: three perigastric masses, slightly smaller. Assessment / Plan / Follow-up GIST tumors. Stable. I spoke with Dr. Davila and she feels peritoneal dialysis would not be contraindicated as this is a sarcomatous tumor and not a carcinoma. I also spoke with Dr. Yumiko Miller and she will discuss with the patient the timing of PD cath insertion. F/u in 2 weeks. PROBLEMS ADDRESSED & THEIR COMPLEXITY Acute / Chronic that poses threat to life / bodily function (OP 5_IP 3_ER 5). *For select categories, select higher level if ?2 problems addressed Documentation: ESRF DATA REVIEWED & ANALYZED *Discussion of mgmt / test interp w/ external QHP / appropriate source (OP 4,5_IP 2,3_ER 4,5). *For select categories, select higher level if 2 of 3 categories satisfied Documentation: Discussion with Oncology and Nephrology as above. [employer] AUTHENTICATED BY BRIAN AREVALO, ON 05/01/2024 14:00:[address] [place] [address] Ambulatory 05-01-2024 History of Present illness Narrative* Brian Arevalo MD - 05/01/2024 1:53 PM EDT OFFICE VISIT REASON FOR VISIT F/u after CT scan Subjective Presents with his . No new complaints. Vitals BP (!) 169/80 (BP Location: Left arm, Patient Position: Sitting, BP Cuff Size: Adult) Pulse 73 Ht 5' 9 Wt (!) 138.4 kg (305 lb 1.6 oz) SpO2 95% BMI 45.06 kg/m Exam Alert, NAD, cooperative, obese, in a wheelchair Labs, Imaging, Pathology CTAP: three perigastric masses, slightly smaller. Assessment / Plan / Follow-up GIST tumors. Stable. I spoke with Dr. Davila and she feels peritoneal dialysis would not be contraindicated as this is a sarcomatous tumor and not a carcinoma. I also spoke withDr. Yumiko Miller and she will discuss with the patient the timing of PD cath insertion. F/u in 2 weeks. PROBLEMS ADDRESSED & THEIR COMPLEXITY Acute / Chronic that poses threat to life / bodily function (OP 5_IP 3_ER 5). *For select categories, select higher level if ?2 problems addressed Documentation: ESRF DATA REVIEWED & ANALYZED *Discussion of mgmt / test interp w/ external QHP / appropriate source (OP 4,5_IP 2,3_ER 4,5). *For select categories, select higher level if 2 of 3 categories satisfied Documentation: Discussion with Oncology and Nephrology as above. [employer] documented in this [id number] History of Present illness Narrative* Brian Arevalo MD - 05/01/2024 1:53 PM EDT OFFICE VISIT REASON FOR VISIT F/u after CT scan Subjective Presents with his . No new complaints. Vitals BP (!) 169/80 (BP Location: Left arm, Patient Position: Sitting, BP Cuff Size: Adult) Pulse 73 Ht 5' 9 Wt (!) 138.4 kg (305 lb 1.6 oz) SpO2 95% BMI 45.06 kg/m Exam Alert, NAD, cooperative, obese, in a wheelchair Labs, Imaging, Pathology CTAP: three perigastric masses, slightly smaller. Assessment / Plan / Follow-up GIST tumors. Stable. I spoke with Dr. Davila and she feels peritoneal dialysis would not be contraindicated as this is a sarcomatous tumor and not a carcinoma. I also spoke withDr. Yumiko Miller and she will discuss with the patient the timing of PD cath insertion. F/u in 2 weeks. PROBLEMS ADDRESSED & THEIR COMPLEXITY Acute / Chronic that poses threat to life / bodily function (OP 5_IP 3_ER 5). *For select categories, select higher level if ?2 problems addressed Documentation: ESRF DATA REVIEWED & ANALYZED *Discussion of mgmt / test interp w/ external QHP / appropriate source (OP 4,5_IP 2,3_ER 4,5). *For select categories, select higher level if 2 of 3 categories satisfied Documentation: Discussion with Oncology and Nephrology as above. [employer] documented in this [id number] History of Present illness Narrative* Brian Arevalo MD - 03/27/2024 1:45 PM EDT PATIENT: Lorenzo Amato : 1970 AGE: 53 y.o. SEX: male RACE: [1] PCP: Lion Carlson MD REFERRAL: Gracie Miller MD PLACE OF SERVICE [x] OFFICE REVIEWED Chart Yes HISTORIAN Source Patient Quality Good Accompanied by His CC I'm here to see about peritoneal dialysis HPI Patient has CKD stage 5 and presents to discuss PD cath insertion. He is not on hemodialysis. 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 His states that part of the tumor is in the stomach and part is outside the stomach. He has not had imaging for a few years and most of it is at [place] / [place]. I could not find anything recently on CareEverywhere. ROS Questionnaire Reviewed: Today [x] Pertinent positives listed below [] No pertinent positives [] Unable to obtain CONST GI NEURO [] fevers [] nausea [] seizures [] chills [] vomiting [] syncope [x] fatigue [] constipation [] stroke [] recent weight loss [] diarrhea [] weakness EYES [] blood in stools PSYCH [] double vision [] abdominal pain [x] depression [] cataracts [] appetite changes [x] anxiety ENT/MOUTH ENDO [] difficulty swallowing [] blood in urine [x] high or low blood sugar [] bloody noses [] painful urination [] thyroid problems CV [] frequent urination HEM / LYMPH [x] high blood pressure [] urine infections [x] anemia [] chest pain or angina [] urinary incontinence [] lymph node enlargement [] heart rhythm problem MS [] bleeding problems [x] dyspnea on exertion [x] arthritis BREAST [] blood clots [] gout [] breast pain [] leg swelling SKIN [] nipple discharge RESP [x] rashes [] breast mass [x] shortness of breath [] skin cancer [] asthma [] cough [x] sleep apnea Other Comments: PMH / PSH Past Medical History: Diagnosis Date Anemia Arthritis Coronary artery disease COVID Depression with anxiety Diabetes mellitus, type 2 (HCC) Dyspnea on exertion 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 Gracie Miller Venous embolism lungs and legs Vitamin D deficiency Past Surgical History: Procedure Laterality Date APPENDECTOMY COLONOSCOPY last was 2014, polyps, done in [place], 2 procdures CORONARY ANGIOPLASTY WITH STENT PLACEMENT has had 2 surgeries, 2019 most recent ESOPHAGOGASTRODUODENOSCOPY last was done in [place], gastic tumor, INSULIN PUMP AND GLUCOSE SENSOR IR IVC FILTER PLACEMENT 2012 for Blood clots TATTOO TEETH EXTRACTION TRANSFUSION BLOOD PRODUCT VASECTOMY FAM HX Family History Problem Relation Age of Onset Uterine cancer Mother SOC HX Social History Occupational History Not on file Tobacco Use Smoking status: Never Smokeless tobacco: Current Types: Chew Substance and Sexual Activity Alcohol use: Not Currently Comment: did drank occassionally in past Drug use: Never Sexual activity: Not on file MEDICATIONS Current Outpatient Medications Medication Instructions atorvastatin (LIPITOR) 80 mg, Daily busPIRone (BUSPAR) 15 mg, 3 times daily clopidogreL (PLAVIX) 75 mg, Daily DULoxetine (CYMBALTA) 60 mg, Daily Eliquis 5 mg, Daily ergocalciferol (VITAMIN D2) 50,000 Units, Oral, Weekly furosemide (LASIX) 20 mg, Oral, Daily glucagon 1 mg, Intramuscular, Once hydrALAZINE (APRESOLINE) 100 mg, Oral, 2 times daily insulin lispro (AdmeLOG,HumaLOG) 100 unit/mL injection Subcutaneous meclizine (ANTIVERT) 25 mg, Oral, 3 times daily PRN metoprolol tartrate (LOPRESSOR) 100 mg, Oral, 2 times daily OCTREOTIDE ACETATE SUBQ 30 mg, Subcutaneous, Every 28 days omeprazole (PRILOSEC) 40 mg, Oral, 2 times daily senna-docusate (SENNA-S) 8.6-50 mg 1 tablet, Oral, 2 times daily ALLERGIES Allergies Allergen Reactions Lisinopril Cough Toradol [Ketorolac] Other (See Comments) Kidney failure EXAM Vitals BP 134/73 Pulse 76 Resp 16 Ht 5' 9 Wt (!) 138.3 kg (305 lb) SpO2 95% BMI 45.04 kg/m Obesity Yes Const Alert, oriented, cooperative, pleasant, NAD HEENT AT/NC, Perr Ext No deformities Neuro no gross deficits Psych normal affect Skin / Other No obvious rashes, in a wheelchair ASSESSMENT / PLAN I am concerned about putting a PD catheter in if the patient has 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 Unfortunately an U/S or KUB will not be helpful in this instance and I will obtain a CT scan abdomen and pelvis. Diff Dx As above. Co-morbidities [x] PMH/PSH [x] SH [] Age [] Anticoagulation [] Other Details Patient Risks GIST Tumor, CAD, DM HTN, MS Procedural Risks Anticipated Anesthesia Consent [] Risks / Rationale / Benefits / Alternatives discussed [] Informed consent obtained Questions Answered [x] Location [] [facility] [] [facility] ORDERS / F/U F/u after CT scan [employer] PROBLEMS ADDRESSED & THEIR COMPLEXITY New undiagnosed w/ uncertain prognosis (OP 4_IP 2_ER 4). *For select categories, select higher level if ?2 problems addressed Documentation: ESRF, GIST tumor DATA REVIEWED & ANALYZED *3 Points from Notes reviewed from each unique source, Each unique test ordered, Each unique test reviewed, Assessment req an independent historian (OP 4,5_IP 2,3_ER 4,5). *For select categories, select higher level if 2 of 3 categories satisfied Documentation: Order CT scan and review Care Everywhere from [facility] and from [facility] [employer] documented in this [id number] NotePATIENT: Lorenzo Amato : 1970 AGE: 53 y.o. SEX: male RACE: [1] PCP: Lion Carlson MD REFERRAL: Gracie Miller MD PLACE OF SERVICE [x] OFFICE REVIEWED Chart Yes HISTORIAN Source Patient Quality Good Accompanied by His CC I'm here to see about peritoneal dialysis HPI Patient has CKD stage 5 and presents to discuss PD cath insertion. He is not on hemodialysis. 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 His states that part of the tumor is in the stomach and part is outside the stomach. He has not had imaging for a few years and most of it is at [place] / [place]. I could not find anything recently on CareEverywhere. ROS Questionnaire Reviewed: Today [x] Pertinent positives listed below [] No pertinent positives [] Unable to obtain CONST GI NEURO [] fevers [] nausea [] seizures [] chills [] vomiting [] syncope [x] fatigue [] constipation [] stroke [] recent weight loss [] diarrhea [] weakness EYES [] blood in stools PSYCH [] double vision [] abdominal pain [x] depression [] cataracts [] appetite changes [x] anxiety ENT/MOUTH ENDO [] difficulty swallowing [] blood in urine [x] high or low blood sugar [] bloody noses [] painful urination [] thyroid problems CV [] frequent urination HEM / LYMPH [x] high blood pressure [] urine infections [x] anemia [] chest pain or angina [] urinary incontinence [] lymph node enlargement [] heart rhythm problem MS [] bleeding problems [x] dyspnea on exertion [x] arthritis BREAST [] blood clots [] gout [] breast pain [] leg swelling SKIN [] nipple discharge RESP [x] rashes [] breast mass [x] shortness of breath [] skin cancer [] asthma [] cough [x] sleep apnea Other Comments: PMH / PSH Past Medical History: Diagnosis Date Anemia Arthritis Coronary artery disease COVID Depression with anxiety Diabetes mellitus, type 2 (HCC) Dyspnea on exertion 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 Gracie Miller Venous embolism lungs and legs Vitamin D deficiency Past Surgical History: Procedure Laterality Date APPENDECTOMY COLONOSCOPY last was 2014, polyps, done in [place], 2 procdures CORONARY ANGIOPLASTY WITH STENT PLACEMENT has had 2 surgeries, 2019 most recent ESOPHAGOGASTRODUODENOSCOPY last was done in [place], gastic tumor, INSULIN PUMP AND GLUCOSE SENSOR IR IVC FILTER PLACEMENT 2012 for Blood clots TATTOO TEETH EXTRACTION TRANSFUSION BLOOD PRODUCT VASECTOMY FAM HX Family History Problem Relation Age of Onset Uterine cancer Mother SOC HX Social History Occupational History Not on file Tobacco Use Smoking status: Never Smokeless tobacco: Current Types: Chew Substance and Sexual Activity Alcohol use: Not Currently Comment: did drank occassionally in past Drug use: Never Sexual activity: Not on file MEDICATIONS Current Outpatient Medications Medication Instructions atorvastatin (LIPITOR) 80 mg, Daily busPIRone (BUSPAR) 15 mg, 3 times daily clopidogreL (PLAVIX) 75 mg, Daily DULoxetine (CYMBALTA) 60 mg, Daily Eliquis 5 mg, Daily ergocalciferol (VITAMIN D2) 50,000 Units, Oral, Weekly furosemide (LASIX) 20 mg, Oral, Daily glucagon 1 mg, Intramuscular, Once hydrALAZINE (APRESOLINE) 100 mg, Oral, 2 times daily insulin lispro (AdmeLOG,HumaLOG) 100 unit/mL injection Subcutaneous meclizine (ANTIVERT) 25 mg, Oral, 3 times daily PRN metoprolol tartrate (LOPRESSOR) 100 mg, Oral, 2 times daily OCTREOTIDE ACETATE SUBQ 30 mg, Subcutaneous, Every 28 days omeprazole (PRILOSEC) 40 mg, Oral, 2 times daily senna-docusate (SENNA-S) 8.6-50 mg 1 tablet, Oral, 2 times daily ALLERGIES Allergies Allergen Reactions Lisinopril Cough Toradol [Ketorolac] Other (See Comments) Kidney failure EXAM Vitals BP 134/73 Pulse 76 Resp 16 Ht 5' 9 Wt (!) 138.3 kg (305 lb) SpO2 95% BMI 45.04 kg/m Obesity Yes Const Alert, oriented, cooperative, pleasant, NAD HEENT AT/NC, Perr Ext No deformities Neuro no gross deficits Psych normal affect Skin / Other No obvious rashes, in a wheelchair ASSESSMENT / PLAN I am concerned about putting a PD catheter in if the patient has 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 Unfortunately an U/S or KUB will not be helpful in this instance and I will obtain a CT scan abdomen and pelvis. Diff Dx As above. Co-morbidities [x] PMH/PSH [x] SH [] Age [] Anticoagulation [] Other Details Patient Risks GIST Tumor, CAD, DM HTN, MS Procedural Risks Anticipated Anesthesia Consent [] Risks / Rationale / Benefits / Alternatives discussed [] Informed consent obtained Questions Answered [x] Location [] [facility] [] [facility] (more content not included)...[facility] 11-20-2019 History of Present illness Narrative* Joshua Barrera, MINING SPECULATOR - 11/20/2019 1:00 PM EST Phase II Cardiac Rehab Individualized Treatment Plan-30 Day Patient Name: Lorenzo Amato Date of Initial Assessment: 11/20/2019 Diagnosis: PCI Onset Date: 09/28/19 Referring Physician: JESSIE CHE M.D Risk Stratification: HIGH Session Number: 2 EXERCISE Stages of Change: [] pre-contemplation [x] Action [] Contemplate [] Maintainence [] Prep [] Relapse Exercise Prescription: Mode: [x] TM [x] UBE [x] STP [] EL [x] R Frequency: 3 DAYS PER WEEK Duration: 31-60 MINUTES Intensity: 3.0 - 4.0 METS Plan/Goal: Increase 1-2 levels/week or 1-2 min/week to achieve target HR and RPE 12-16. Progression: INCREASE DURATION PER ABOVE F.I.T.T. Rx PARAMETERS ON AVG OF 5-10 MIN / 1-2 WEEKS FOR THE FIRST 4-6 WEEKS. AFTER 3-4 WEEKS ARE COMPLETED, CONTINUE TO GRADUALLY INCREASE F.I.T. PARAMETERSGRADUALLY UPWARD AT THE ESTABLISHED DURATION ON AVERAGE 0.5-1.0 METS PER 30 DAYS OVER THE COARSE OFREMAINING PROGRAM ESTABLISHED BY PT-CENTERED GOALS AND GUIDELINES. Target HR 90 - 102 [] Angina with Exertion [x] Resistance Training introduce 8-12 bilateral UE and LE progressive resistance exercises at 1-3 sets per lift, on 2-3 non-consecutive days using weights/ GREEN therabands AND WTS TO 8-24 # for 8-15 reps to progressive overload by increasing resistance once reps progressed to at least 15 reps on at least 2 occasions Hypertension: [x] Yes [] No Resting BP: 142/64 Peak Exercise BP: 140/52 [] Med change? Intervention: Home Exercise: Type: WALKING Duration: 30-60 MINUTES Frequency: 2-3 DAYS PER WEEK [x] Resistance Training introduce 8-12 bilateral UE and LE progressive resistance exercises at 1-3 sets per lift, on 2-3 non-consecutive days using weights/ GREEN therabands AND WTS TO 8-24 # for 8-15 reps to progressive overload by increasing resistance once reps progressed to at least 15 reps on at least 2 occasions Education: [x] Equipment [place] [x] Self pulse [x] Proper use weights/therabands [x] S/S to report [x] Low Na Diet [x] Warm up/ Cool down [x] BP Medication [x] RPE Scale [x] Understand BP [x] Ex Safety [x] heart specialist class-Home Exercise Target Goal: -Individual Exercise Plan -Bp<130/80 -Aerobic active 30 + minutes 5-7 days per week Nutrition Stages of Change: [] pre-contemplation [x] Action [] Contemplate [] Maintainence [] Prep [] Relapse Lipids: NO NEW VALUES Total Cholesterol: Triglycerides: HDL: LDL: [] Med Change? Diabetes: [x] Yes [] No Random Bs: 184 HbA1c: 7.6% [] Med Change? Weight Management: Current Wt 286.2 Wt Goal: 1-2 lbs/wk Intervention: [] Dietitian Consult [x] Nurse/Patient Discussion [x] Diet Class [] Referred to Diabetes Education Education: [] S&S hypo/hyperglycemia [x] Low fat/low cholesterol diet [x] Weight loss methods [] Relate Diabetes/CAD [x] Eating heart healthy handout Target Goal: -LDL-C<100 if triglycerides are > 200 -LDL-C < 70 for high risk patients -HbA1c < 7% -BMI < 25 Education Stages of Change: [] pre-contemplation [x] Action [] Contemplate [] Maintainence [] Prep [] Relapse Family support: [x] Yes [] No Tobacco use: [] Yes [x] No Intervention: [] Referred to smoking cessation counselor [] Individual education and counseling [] Tobacco adjunct [] Informed of education class schedule Education: [x] Risk Factors/Modifications [x] Psychological aspects [x] Angina [x] Medications [] CHF [x] Cardiac A&P Target Goal: -Complete cessation of tobacco use (if applicable) -Continued risk factor modifications -Recognizing signs/symptoms to report -Proper use of meds Psychosocial Stages of Change: [] pre-contemplation [x] Action [] Contemplate [] Maintainence [] Prep [] Relapse Intervention: [] Psych Consult/social worker masters [x] Uses stress management skills [] Physician Referral [x] Stress management class [] Med Change? Education: [x] Coping Techniques [x] Relaxation techniques [x] S/S of Depression Target Goal: -Assess presence or absence of depression using a valid screening tool. -Maximize coping skills. -Positive support system. Preventative Medication: [x] Aspirin [x] Beta Blockade [x] Statin or other lipid lowering agent [] Clopidogrel [] KWAKU Inhibitor [x] Other anticoagulation medications Fall Risk assess: [x] Yes [] No / REMAINS LOW RISK Assistive Device: [] Cane [] Walker [] Wheel Chair [] Gait belt Patient/Program goal: - gain strength - increased stamina/strength to 30-50 total exercise by increasing 1-2 level/wk and 1-2 min/wk to achieve THR and RPE 12-16 / INCREASE AVG CARDIO FC BY AT LEAST 0.5-1.0 MET IN THE NEXT 30DAYS AND TOLERATE >31-45 MIN W/IN EX RX TARGETS / MEETING GOAL / AVG FC INCREASED TO 3.8 METS / CONTINUE TO PROGRESS GOAL WRITTEN OVER THE NEXT 30 DAYS - LOSE 2-4 LB BODY WT IN NEXT 30 DAYS / GOAL MET / STARTING WEIGHT WAS 288, WEIGHT AFTER 30 DAYS WAS 286.2 / COMNTINUE TO PROGRESS GOAL WRITTEN OVER THE NEXT 30 DAYS - Introduce 8-12 bilateral UE and LE progressive resistance exercises at 1-3 sets per lift, on 2-3 non-consecutive days using weights/ blue therabands AND WTS TO 8-24 # for 10-15 reps to progressive overload by increasing resistance once reps progressed to at least 15 reps on at least 2 occasions /NOT MEETING GOAL / PT HAS ONLY CAME TO REHAB TWICE SO THERABANDS HAVE YET TO BE INTRODUCED - MAINTAIN OPTIMAL. BP / MEETING GOAL / CONTINUE TO PROGRESS GOAL WRITTEN OVER THE NEXT 30 DAYS - Improved cholesterol and Triglycerides / NO NEW VALUES - Develop regular exercise 30 min daily, AT LEAST 3-5 DAYS PER WEEK CONSISTENTLY W/IN THE NEXT 30 DAYS / NOT MEETING GOAL / PT HAS CAME TO REHAB TWICE IN 30 DAYS - Lower daily fasting blood glucose score to <131 and random after meal scores to <181 at home NOT MEETING GOAL / LAST BS WAS 184 / CONTINUE TO PROGRESS GOAL WRITTEN OVER THE NEXT 30 DAYS - To reduce self-reported psycho-social feelings of stress in next 30 days / MEETING GOAL / CONTINUE TO PROGRESS GOAL WRITTEN OVER THE NEXT 30 DAYS - To eat at least 2 servings of fruit per day and at least 4-5 servings of vegetables per day / MEETING GOAL / CONTINUE TO PROGRESS GOAL WRITTEN OVER THE NEXT 30 DAYS Physician Changes/Comments: Cardiac Rehab Staff JOSHUA BARRERA RRT documented in this encounterTuscany Design Automation Phone: evaluation note* Diagnosis Carcinoid tumor of stomach, unspecified whether malignant- Primary documented in this encounter [employer] Phone: evaluation note* Diagnosis Carcinoid tumor of stomach, unspecified whether malignant- Primary documented in this encounter [employer] Phone: evaluation note* Diagnosis Carcinoid tumor of stomach, 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 documented in this encounter [employer] Phone: evaluation note* Diagnosis Carcinoid tumor of stomach, unspecified whether malignant- Primary documented in this encounter [employer] Phone: evaluation note* Diagnosis Carcinoid tumor of stomach, unspecified whether malignant- Primary documented in this encounter [employer] Phone: evaluation note* Diagnosis 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) Type II or unspecified type diabetes mellitus with renal manifestations, uncontrolled documented in this encounter [employer] Phone: evaluvglgi note* Diagnosis Carcinoid tumor of stomach, unspecified whether malignant- Primary documented in this encounter [employer] Phone: evaluation note* Diagnosis Carcinoid tumor of stomach, unspecified whether malignant- Primary documented in this encounter [employer] Phone: evaluation note* Diagnosis Carcinoid tumor of stomach, unspecified whether malignant- Primary documented in this encounter [employer] Phone: evaluation note* Diagnosis 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 documented in this encounter [employer] Phone: evaluation note* Diagnosis 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) Type II or unspecified type diabetes mellitus with renal manifestations, uncontrolled Vitamin D deficiency Unspecified vitamin D deficiency Mixed hyperlipidemia Coronary artery disease involving [place] coronary artery of [place] heart without angina pectoris Fatigue, unspecified type Shortness of breath NABOR (obstructive sleep apnea) Obstructive sleep apnea (adult) (pediatric) Benign essential HTN Essential hypertension, benign documented in this encounter [employer] Phone: evaluation note* Diagnosis Carcinoid tumor of stomach, unspecified whether malignant- Primary documented in this encounter [employer] Phone: evaluation note* Diagnosis Vitamin D deficiency Unspecified vitamin D deficiency Mixed hyperlipidemia Coronary artery disease involving [place] coronary artery of [place] heart without angina pectoris Fatigue, unspecified type Shortness of breath NABOR (obstructive sleep apnea) Obstructive sleep apnea (adult) (pediatric) Benign essential HTN Essential hypertension, benign documented in this encounter [employer] Phone: evaluation note* Diagnosis Vitamin D deficiency Unspecified vitamin D deficiency Mixed hyperlipidemia Coronary artery disease involving [place] coronary artery of [place] heart without angina pectoris Fatigue, unspecified type Shortness of breath NABOR (obstructive sleep apnea) Obstructive sleep apnea (adult) (pediatric) Benign essential HTN Essential hypertension, benign documented in this encounter [employer] Phone: evaluation note* Diagnosis Carcinoid tumor of stomach, unspecified whether malignant- Primary documented in this encounter [employer] Phone: evaluation note* Diagnosis 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) Type II or unspecified type diabetes mellitus with renal manifestations, uncontrolled documented in this encounter [employer] Phone: evaluation note* Diagnosis Mixed hyperlipidemia documented in this encounter [employer] Phone: evaluation note* Diagnosis 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 documented in this encounter [employer] Phone: evaluation note* Diagnosis Carcinoid tumor of stomach, unspecified whether malignant- Primary documented in this encounter [employer] Phone: evalusjijh note* Diagnosis Poorly controlled type 2 diabetes mellitus with complication (HCC) Type II or unspecified type diabetes mellitus with unspecified complication, not stated as uncontrolled documented in this encounter [employer] Phone: evaluation note* Diagnosis Controlled type 2 diabetes mellitus without complication, with long-term current use of insulin (HCC) documented in this encounter [employer] Phone: evaluation note* Diagnosis Carcinoid tumor of stomach, unspecified whether malignant- Primary documented in this encounter [employer] Phone: evaluation note* Diagnosis Carcinoid tumor of stomach, unspecified whether malignant Poorly controlled type 2 diabetes mellitus with complication (HCC) Type II or unspecified type diabetes mellitus with unspecified complication, not stated as uncontrolled documented in this encounter [employer] Phone: evaluation note* Diagnosis Carcinoid tumor of stomach, unspecified whether malignant- Primary documented in this encounter [employer] Phone: evaluation note* Diagnosis Vitamin D deficiency Unspecified vitamin D deficiency Mixed hyperlipidemia Coronary artery disease involving [place] coronary artery of [place] heart without angina pectoris Benign essential HTN Essential hypertension, benign documented in this encounter [employer] Phone: evaluation note* Diagnosis Vitamin D deficiency Unspecified vitamin D deficiency Mixed hyperlipidemia Coronary artery disease involving [place] coronary artery of [place] heart without angina pectoris Benign essential HTN Essential hypertension, benign documented in this encounter [employer] Phone: evaluation note* Diagnosis Carcinoid tumor of stomach, unspecified whether malignant- Primary documented in this encounter [employer] [facility]* Diagnosis Carcinoid tumor of stomach, unspecified whether malignant- Primary documented in this encounter [facility]* Diagnosis End stage renal disease (HCC)- Primary End stage renal disease [facility]* Diagnosis GIST, non-malignant- Primary Other benign neoplasm of connective and other soft tissue of abdomen documented [facility] this [facility]* Diagnosis ESRF (end stage renal failure) (HCC)- Primary End stage renal disease documented in this encounter [facility] note* Diagnosis ESRF (end stage renal failure) (HCC)- Primary End stage renal disease [facility]* Diagnosis ESRF (end stage renal failure) (HCC)- Primary End stage renal disease documented in this encounter [facility] note* Diagnosis Carcinoid tumor of stomach, unspecified whether malignant- Primary [facility] this [facility]* Diagnosis ESRF (end stage renal failure) (HCC)- Primary End stage renal disease documented in this encounter [facility] note* Diagnosis Groin swelling- Primary Abdominal or pelvic swelling, mass or lump, unspecified site Fluid retention Fluid overload S/P PTCA (percutaneous transluminal coronary angioplasty) Postsurgical percutaneous transluminal coronary angioplasty status documented in this encounter [facility] note* Diagnosis Carcinoid tumor of stomach, unspecified whether malignant- Primary documented in this encounter [facility]* Diagnosis Poorly controlled type 2 diabetes mellitus with complication (HCC) Type II or unspecified type diabetes mellitus with unspecified complication, not stated as uncontrolled Other iron deficiency anemia Carcinoid tumor of stomach, 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) Secondary malignant neoplasm of liver documented in this encounter [facility]* Diagnosis Vitamin D deficiency Unspecified vitamin D deficiency Mixed hyperlipidemia Coronary artery disease involving [place] coronary artery of [place] heart without angina pectoris Benign essential HTN Essential hypertension, benign SOB (shortness of breath) Shortness of breath documented in this encounter [facility]* Diagnosis Carcinoid tumor of stomach, unspecified whether malignant- Primary documented in this encounter [facility]* Diagnosis Carcinoid tumor of stomach, unspecified whether malignant- Primary [facility]* Diagnosis NSTEMI (non-ST elevated myocardial infarction) (HCC)- Primary Acute myocardial infarction, subendocardial infarction, episode of care unspecified NSTEMI (non-ST elevated myocardial infarction) (HCC) Acute myocardial infarction, subendocardial infarction, episode of care unspecified Coronary artery disease with angina pectoris, unspecified vessel or lesion type, unspecified whether [place] or transplanted heart Carcinoid tumor of stomach (HCC) Benign carcinoid tumor of the stomach Benign essential HTN Essential hypertension, benign Controlled type 2 diabetes mellitus without complication, with long-term current use of insulin End stage renal disease (HCC) End stage renal disease GERD (gastroesophageal reflux disease) Esophageal reflux Liver metastases Secondary malignant neoplasm of liver History of pulmonary embolus (PE) Personal history of pulmonary embolism Mixed hyperlipidemia Morbid obesity due to excess calories NABOR (obstructive sleep apnea) Obstructive sleep apnea (adult) (pediatric) Type 2 diabetes mellitus with hyperglycemia Type II or unspecified type diabetes mellitus without mention of complication, not stated as uncontrolled 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 dialysis Renal dialysis status 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 NSTEMI (non-ST elevated myocardial infarction) (HCC) Acute myocardial infarction, subendocardial infarction, episode of care unspecified NSTEMI (non-ST elevated myocardial infarction) (HCC) Acute myocardial infarction, subendocardial infarction, episode of care unspecified Coronary artery disease with angina pectoris, unspecified vessel or lesion type, unspecified whether [place] or transplanted heart documented in this encounter [facility]* Diagnosis Poorly controlled type 2 diabetes mellitus with complication (HCC) Type II or unspecified type diabetes mellitus with unspecified complication, not stated as uncontrolled documented in this encounter [facility]* Diagnosis Carcinoid tumor of stomach, unspecified whether malignant (HCC) documented in this encounter [facility]* Diagnosis Benign essential HTN- Primary Essential hypertension, benign Multiple sclerosis (HCC) Multiple sclerosis CAD in [place] artery Coronary atherosclerosis of [place] coronary artery CKD (chronic kidney disease) stage 4, GFR 15-29 ml/min (HCC) Chronic kidney disease, Stage IV (severe) Mixed hyperlipidemia Gastroesophageal reflux disease without esophagitis Esophageal reflux Vitamin D deficiency Unspecified vitamin D deficiency NABOR (obstructive sleep apnea) Obstructive sleep apnea (adult) (pediatric) NSTEMI (non-ST elevated myocardial infarction) (HCC) Acute myocardial infarction, subendocardial infarction, episode of care unspecified Carcinoid tumor of stomach, unspecified whether malignant (HCC)- Primary documented in this encounter [facility]* Diagnosis Benign essential HTN- Primary Essential hypertension, benign Multiple sclerosis (HCC) Multiple sclerosis CAD in [place] artery Coronary atherosclerosis of [place] coronary artery CKD (chronic kidney disease) stage 4, GFR 15-29 ml/min (HCC) Chronic kidney disease, Stage IV (severe) Mixed hyperlipidemia Gastroesophageal reflux disease without esophagitis Esophageal reflux Vitamin D deficiency Unspecified vitamin D deficiency NABOR (obstructive sleep apnea) Obstructive sleep apnea (adult) (pediatric) NSTEMI (non-ST elevated myocardial infarction) (HCC) Acute myocardial infarction, subendocardial infarction, episode of care unspecified 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, 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 malignant neoplasm of liver Poorly controlled type 2 diabetes mellitus with complication (HCC) Type II or unspecified type diabetes mellitus with unspecified complication, not stated as uncontrolled documented in this encounter [facility]* Diagnosis Benign essential HTN- Primary Essential hypertension, benign Multiple sclerosis (HCC) Multiple sclerosis CAD in [place] artery Coronary atherosclerosis of [place] coronary artery CKD (chronic kidney disease) stage 4, GFR 15-29 ml/min (HCC) Chronic kidney disease, Stage IV (severe) Mixed hyperlipidemia Gastroesophageal reflux disease without esophagitis Esophageal reflux Vitamin D deficiency Unspecified vitamin D deficiency NABOR (obstructive sleep apnea) Obstructive sleep apnea (adult) (pediatric) NSTEMI (non-ST elevated myocardial infarction) (HCC) Acute myocardial infarction, subendocardial infarction, episode of care unspecified Carcinoid tumor of stomach, unspecified whether malignant (HCC)- Primary documented in this encounter [employer]al[employer] note* Diagnosis Benign essential HTN- Primary Essential hypertension, benign Multiple sclerosis (HCC) Multiple sclerosis CAD in [place] artery Coronary atherosclerosis of [place] coronary artery CKD (chronic kidney disease) stage 4, GFR 15-29 ml/min (HCC) Chronic kidney disease, Stage IV (severe) Mixed hyperlipidemia Gastroesophageal reflux disease without esophagitis Esophageal reflux Vitamin D deficiency Unspecified vitamin D deficiency NABOR (obstructive sleep apnea) Obstructive sleep apnea (adult) (pediatric) NSTEMI (non-ST elevated myocardial infarction) (HCC) Acute myocardial infarction, subendocardial infarction, episode of care unspecified Carcinoid tumor of stomach, unspecified whether malignant (HCC)- Primary documented in this encounter [facility]Eval[facility] note* Diagnosis Benign essential HTN- Primary Essential hypertension, benign Multiple sclerosis (HCC) Multiple sclerosis CAD in [place] artery Coronary atherosclerosis of [place] coronary artery CKD (chronic kidney disease) stage 4, GFR 15-29 ml/min ([facility]) Chronic kidney disease, Stage IV (severe) Mixed hyperlipidemia Gastroesophageal reflux disease without esophagitis Esophageal reflux Vitamin D deficiency Unspecified vitamin D deficiency NABOR (obstructive sleep apnea) Obstructive sleep apnea (adult) (pediatric) NSTEMI (non-ST elevated myocardial infarction) (HCC) Acute myocardial infarction, subendocardial infarction, episode of care unspecified Primary osteoarthritis of both knees Primary localized osteoarthrosis, lower leg documented in this encounter [facility] note* Diagnosis Benign essential HTN- Primary Essential hypertension, benign Multiple sclerosis (HCC) Multiple sclerosis CAD in [place] artery Coronary atherosclerosis of [place] coronary artery CKD (chronic kidney disease) stage 4, GFR 15-29 ml/min ([facility]) Chronic kidney disease, Stage IV (severe) Mixed hyperlipidemia Gastroesophageal reflux disease without esophagitis Esophageal reflux Vitamin D deficiency Unspecified vitamin D deficiency NABOR (obstructive sleep apnea) Obstructive sleep apnea (adult) (pediatric) NSTEMI (non-ST elevated myocardial infarction) (HCC) Acute myocardial infarction, subendocardial infarction, episode of care unspecified Carcinoid tumor of stomach, unspecified whether malignant (HCC)- Primary documented in this encounter [facility] note* Diagnosis Gastroesophageal reflux disease, unspecified whether esophagitis present- Primary ESRF (end stage renal failure) (HCC) End stage renal disease NABOR (obstructive sleep apnea) Obstructive sleep apnea (adult) (pediatric) Essential hypertension Unspecified essential hypertension 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 Discharge instructions* Attachments The following attachments cannot be sent through Care Everywhere. * Blood Transfusions: General Info ([place]) [facility] Attachments The following attachments cannot be sent through Care Everywhere. * Blood Transfusions: General Info ([place] Citizen) [facility]* Attachments The following attachments cannot be sent through Care Everywhere. * Blood Transfusions: General Info ([place] Citizen) [facility]* Attachments The following attachments cannot be sent through Care Everywhere. * Blood Transfusions: General Info ([place] Citizen) [facility]* Attachments The following attachments cannot be sent through Care Everywhere. * Blood Transfusions: General Info ([place] Citizen) [facility] (narrative)* Consultation (Routine) - Pending ReviewSpecialtyDiagnoses / ProceduresReferred By ContactReferred To ContactGeneral Surgery Diagnoses End stage renal disease (HCC) Gracie Miller MD [address] [place] [address] [facility] [facility] Office Building, [address]th [place] [address] Referral IDStatusReasonStart DateExpiration DateVisits RequestedVisits [id number] Specialty Services Required/Patient's Best Interest / [facility] for visit Narrative* Treatment Plan (Routine)StatusReason SpecialtyDiagnoses / ProceduresReferred By ContactReferred To Contact Authorized Diagnoses Carcinoid tumor of stomach, unspecified whether malignant Procedures Maria Teresa Gómez MD [address] [place] [address] [facility] Med Onc [address] [place] [address] [facility] Phone: reason for visit Narrative* Treatment Plan and Therapy Plan (Routine) - AuthorizedSpecialtyDiagnoses / ProceduresReferred By Contact Referred To Contact Diagnoses Carcinoid tumor of stomach, unspecified whether malignant Procedures Maria Teresa Gómez MD [address] [place] [address] [facility] Med Onc [address] [place], [place] [id number] Referral IDStatusReasonStart DateExpiration DateVisits RequestedVisits [id number] [facility] Phone: reason for visit Narrative* Treatment Plan and Therapy Plan (Routine) - AuthorizedSpecialtyDiagnoses / ProceduresReferred By Contact Referred To Contact Diagnoses Carcinoid tumor of stomach, unspecified whether malignant Procedures Maria Teresa Gómez MD [address] [place] [address] [facility] Med Onc [address] [place] [address] Referral IDStatusReasonStart DateExpiration DateVisits RequestedVisits [id number] [facility] [place] [employer] Phone: reason for visit Narrative* Treatment Plan (Routine) StatusReasonSpecialtyDiagnoses / ProceduresReferred By ContactReferred To ContactAuthorized Diagnoses Carcinoid tumor of stomach, unspecified whether malignant Procedures Maria Teresa Gómez MD [address] [address] [facility] Onc [address] [place] [address] [facility] Phone: reason for visit Narrative* Treatment Plan and Therapy Plan (Routine) - AuthorizedSpecialtyDiagnoses / ProceduresReferred By Contact Referred To Contact Diagnoses Carcinoid tumor of stomach, unspecified whether malignant Procedures Maria Teresa Gómez MD [address] [place] [address] [facility] Onc [address] [place] [address] Referral IDStatusReasonStart DateExpiration DateVisits RequestedVisits [id number] ALEXUS GARCIA [facility] for visit Narrative* Treatment Plan and Therapy Plan (Routine) - AuthorizedSpecialtyDiagnoses / ProceduresReferred By Contact Referred To Contact Diagnoses Carcinoid tumor of stomach, unspecified whether malignant Procedures MT OCTREOTIDE INJECTION, DEPOT Trevor Serna MD [address] [place] [address] [facility] [address] [place] [address] Referral IDStatusReasonStart DateExpiration DateVisits RequestedVisits [id number]/3/202311/2/[id number] [facility] for visit Narrative* Treatment Plan and Therapy Plan (Routine) - OpenSpecialtyDiagnoses / ProceduresReferred By Contact Referred To Contact Diagnoses Carcinoid tumor of stomach, unspecified whether malignant Procedures MT OCTREOTIDE INJECTION, DEPOT Trevor Serna MD [address] [place] [address] [facility] [address] [place] [address] Referral IDStatusReasonStart DateExpiration DateVisits RequestedVisits [id number]/3/202311/2/20241010 [facility] for visit Narrative* Treatment Plan and Therapy Plan (Routine) - OpenSpecialtyDiagnoses / ProceduresReferred By Contact Referred To Contact Diagnoses Carcinoid tumor of stomach, unspecified whether malignant (HCC) Procedures MT OCTREOTIDE INJECTION, DEPOT Trevor Serna MD [address] [place] [address] [facility] [address] [place] [address] Referral IDStatusReasonStart DateExpiration DateVisits RequestedVisits [id number]/3/202311/2/20241010 [facility] for visit Narrative* Auth/CertSpecialtyDiagnoses / ProceduresReferred By ContactReferred To Contact Diagnoses NSTEMI (non-ST elevated myocardial infarction) (HCC) NTEMI, Elevated troponin Maria Teresa Constantino I, DO [address] [place] [address] Phone: tel: fax: [facility] [address] [place] [address] Referral IDStatusReasonStart DateExpiration DateVisits RequestedVisits [id number] [facility] for visit Narrative* Treatment Plan and Therapy Plan (Routine) - OpenSpecialtyDiagnoses / ProceduresReferred By Contact Referred To Contact Diagnoses Carcinoid tumor of stomach, unspecified whether malignant (HCC) Procedures MT OCTREOTIDE INJECTION, DEPOT Trevor Serna MD [address] [place] [address] Phone: tel: [facility] [address] [place] [address] Phone: tel: Referral IDStatusReasonStsouth [place] DateExpiration DateVisits RequestedVisits [id number] [facility] for visit Narrative* Eval and Treat (Routine) - OpenSpecialtyDiagnoses / ProceduresReferred By ContactReferred To Contact Cardiac Rehabilitation Diagnoses S/P primary angioplasty with coronary stent Mak Bey MD [address] [place], [place] [id number] Phone: tel: fax: [facility] Cardiac Rehab [address] [place] [address] Phone: tel: Referral IDStatusReasonStsouth [place] DateExpiration DateVisits RequestedVisits [id number] Required [facility] for visit Narrative* Treatment Plan and Therapy Plan (Routine) - Pending ReviewSpecialtyDiagnoses / ProceduresReferred By ContactReferred To Contact Diagnoses Carcinoid tumor of stomach, unspecified whether malignant (HCC) Procedures MT OCTREOTIDE INJECTION, DEPOT Trevor Serna MD [address] [place] [address] Phone: tel: [facility] [address] [place] [address] Phone: tel: Referral IDStatRelucySttacos DateExpiration DateVisits RequestedVisits [id number] [facility] Assessments Diagnosis Benign essential HTN Essential hypertension, benign CKD (chronic kidney disease) stage 3, GFR 30-59 ml/min (HCC) Chronic kidney disease, Stage III (moderate) Mixed hyperlipidemia Uncontrolled type 2 diabetes mellitus with hyperosmolarity without coma, with long-term current useof insulin (HCC) Diagnosis Carcinoid tumor of stomach, unspecified whether malignant- Primary Diagnosis Subcutaneous hematoma- Primary Hematoma Contusion of unspecified site CKD (chronic kidney disease) stage 3, GFR 30-59 ml/min (HCC) Chronic kidney disease, Stage III (moderate) REJI (acute kidney injury) (HCC) Acute kidney failure, unspecified 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) Type II or unspecified type diabetes mellitus with renal manifestations, uncontrolled Benign essential HTN Essential hypertension, benign Gastric carcinoma (HCC) Malignant neoplasm of stomach, unspecified site nursing home current use of anticoagulant therapy History of pulmonary embolus (PE) Personal history of pulmonary embolism Acute blood loss anemia Acute posthemorrhagic anemia Acute retention of urine Other specified retention of urine Diagnosis 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 Diagnosis Carcinoid tumor of stomach, unspecified whether malignant- Primary Diagnosis Benign essential HTN Essential hypertension, benign Uncontrolled type 2 diabetes mellitus with hyperosmolarity without coma, with long-term current useof insulin (HCC) Mixed hyperlipidemia Anemia due to other cause, not classified Diagnosis Carcinoid tumor of stomach, unspecified whether malignant- Primary Diagnosis Carcinoid tumor of stomach, unspecified whether malignant Diagnosis Carcinoid tumor of stomach, unspecified whether malignant Diagnosis Carcinoid tumor of stomach, 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 Diagnosis Carcinoid tumor of stomach, unspecified whether malignant- Primary Diagnosis Chest pain, unspecified type- Primary Hyperglycemia Other abnormal glucose Diagnosis 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) Type II or unspecified type diabetes mellitus with renal manifestations, uncontrolled Diagnosis Coronary artery disease, occlusive- Primary Acute myocardial infarction, unspecified site, episode of care unspecified Uncontrolled type 2 diabetes mellitus with hyperosmolarity without coma, with long-term current useof insulin (HCC) Coronary artery disease involving [place] coronary artery of [place] heart without angina pectoris Gastric carcinoma (HCC) Malignant neoplasm of stomach, unspecified site Multiple sclerosis (HCC) Multiple sclerosis Iron deficiency anemia Iron deficiency anemia, unspecified NABOR (obstructive sleep apnea) Obstructive sleep apnea (adult) (pediatric) 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) Type II or unspecified type diabetes mellitus with renal manifestations, uncontrolled Benign essential HTN Essential hypertension, benign GERD (gastroesophageal reflux disease) Esophageal reflux Pulmonary embolism (HCC) Other pulmonary embolism and infarction nursing home current use of anticoagulant therapy Liver metastases (HCC) Secondary malignant neoplasm of liver DVT of lower extremity, bilateral (HCC) Acute venous embolism and thrombosis of unspecified deep vessels of lower extremity CKD (chronic kidney disease) stage 3, GFR 30-59 ml/min (HCC) Chronic kidney disease, Stage III (moderate) History of pulmonary embolus (PE) Personal history of pulmonary embolism Subcutaneous hematoma Chest pain Chest pain, unspecified Diagnosis Hematoma- Primary Contusion of unspecified site Closed fracture of fourth thoracic vertebra, unspecified fracture morphology, initial encounter (HCC) Chronic renal failure, stage 3 (moderate) (HCC) Acute blood loss anemia Acute posthemorrhagic anemia Diagnosis Mixed hyperlipidemia 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) Type II or unspecified type diabetes mellitus with renal manifestations, uncontrolled Benign essential HTN Essential hypertension, benign Diagnosis Carcinoid tumor of stomach, unspecified whether malignant- Primary Advance Directives TypeDate RecordedPatient RepresentativeExplanationAdvance Directives and Living WillAdvance Directives and Living Will06/26/2013 1:20 PMAdvance Directives and Living Will2018 1:25 PMLiving WillPower of AttorneyPower of Honing Machine Try Out Setter 06/26/2013 1:20 PMPower of Attorney2018 1:30 PMHealthcare POACode StatusDate ActivatedDate InactivatedCommentsFull Code10/28/2018 12:18 AM10/28/2018 9:19 PM DNR-CCA10/11/2016 3:14 PM10/15/2016 5:06 PMFull Code06/19/2013 5:17 PM06/23/2013 6:35 PMFull Code05/08/2013 5:04 PM05/10/2013 7:36 PMTypeDate RecordedPatient RepresentativeExplanationAdvance Directives and Living WillAdvance Directives and Living Will06/26/2013 1:20 PMAdvance Directives and Living Will2018 1:25 PMLiving WillPower of AttorneyPower of Attorney06/26/2013 1:20 PMPower of Attorney2018 1:30 PMHealthcare POACode StatusDate ActivatedDate Inactivated CommentsFull Code10/28/2018 12:18 AM10/28/2018 9:19 PMDNR-CCA10/11/2016 3:14 PM 10/15/2016 5:06 PMFull Code06/19/2013 5:17 PM06/23/2013 6:35 PMFull Code05/08/2013 5:04 PM05/10/2013 7:36 PMCode StatusDate ActivatedDate InactivatedCommentsFull Code09/04/2019 6:16 AMFull Code10/28/2018 12:18 AM10/28/2018 9:19 PMCode Status Date ActivatedDate InactivatedCommentsFull Code09/04/2019 6:16 AM09/09/2019 2:08 PMCode StatusDate ActivatedDate InactivatedCommentsFull Code09/04/2019 6:16 AM 09/09/2019 2:08 PMFull Code10/28/2018 12:18 AM10/28/2018 9:19 PMCode StatusDate ActivatedDate InactivatedCommentsDNR-CCA09/28/2019 3:51 PMFull Code09/28/2019 12:45 PM09/28/2019 3:51 PMFull Code09/04/2019 6:16 AM09/09/2019 2:08 PMCode StatusDate ActivatedDate InactivatedCommentsFull Code10/06/2019 10:28 AM 10/07/2019 5:37 PMFull Code10/02/2019 1:47 PM10/06/2019 10:28 AMFull Code 09/30/2019 4:28 AM10/02/2019 1:47 PMDNR-CCA09/29/2019 6:38 PM09/30/2019 4:27 AM Full Code09/29/2019 4:18 PM09/29/2019 6:37 PMCode StatusDate ActivatedDate InactivatedCommentsFull Code10/06/2019 10:28 AM10/07/2019 5:37 PMFull Code 10/02/2019 1:47 PM10/06/2019 10:28 AMFull Code09/30/2019 4:28 AM10/02/2019 1:47 PMDNR-CCA09/29/2019 6:38 PM09/30/2019 4:27 AMFull Code09/29/2019 4:18 PM 09/29/2019 6:37 PMTypeDate RecordedPatient RepresentativeExplanationACP-Advance DirectiveACP-Advance Directive06/26/2013 1:20 PMACP-Advance Directive2018 1:25 PMLiving WillACP-Power of AttorneyACP-Power of Attorney06/26/2013 1:20 PM ACP-Power of Attorney2018 1:30 PMHealthcare POADNR Qdwttgfegvjge80/2/2016 2:24 PMTypeDate RecordedPatient RepresentativeExplanationACP-Advance Directive ACP-Advance Directive06/26/2013 1:20 PMACP-Advance Directive2018 1:25 PM Living WillACP-Power of AttorneyACP-Power of Attorney06/26/2013 1:20 PMACP-Power of Attorney2018 1:30 PMHealthcare POADNR Nhugbsqmymvff43/2/2016 2:24 PMCode StatusDate ActivatedDate InactivatedCommentsFull Code09/29/2019 4:18 PMDNR-CCA 09/28/2019 3:51 PM09/29/2019 4:18 PMCode StatusDate ActivatedDate Inactivated CommentsFull Code10/06/2019 10:28 AMTypeDate RecordedPatient Game Producer ExplanationACP-Advance DirectiveACP-Advance Directive06/26/2013 1:20 PMACP- Advance Directive2018 1:25 PMLiving WillACP-Do Not Pytaukjnnkx98/2/2016 2:24 PMACP-Power of AttorneyACP-Power of Attorney06/26/2013 1:20 PMACP-Power of Attorney2018 1:30 PMHealthcare POATypeDate RecordedPatient Game Producer ExplanationACP-Advance DirectiveACP-Power of AttorneyACP-Advance Directive 2018 1:25 PMLiving WillACP-Power of Attorney2018 1:30 PMHealthcare POA ACP-Do Not Ofxtkrjreqm99/2/2016 2:24 PMACP-Advance Directive06/26/2013 1:20 PM ACP-Power of Attorney06/26/2013 1:20 PMTypeDate RecordedPatient Game Producer ExplanationACP-Advance DirectiveACP-Power of AttorneyACP-Advance Directive 2018 1:25 PMLiving WillACP-Power of Attorney2018 1:30 PMHealthcare POA ACP-Do Not Umvnoajeall58/2/2016 2:24 PMACP-Advance Directive06/26/2013 1:20 PM ACP-Power of Attorney06/26/2013 1:20 PMTypeDate RecordedPatient Game Producer ExplanationACP-Advance Directive2018 1:25 PMLiving WillACP-Power of Attorney2018 1:30 PMHealthcare POAACP-Advance Directive06/26/2013 1:20 PM ACP-Power of Attorney06/26/2013 1:20 PMTypeDate RecordedPatient Game Producer ExplanationACP-Advance Directive2018 1:25 PMLiving WillACP-Power of Attorney2018 1:30 PMHealthcare POAACP-Advance Directive06/26/2013 1:20 PM ACP-Power of Attorney06/26/2013 1:20 PMCode StatusDate ActivatedDate Inactivated CommentsFull Code10/06/2019 10:28 AM10/07/2019 5:37 PMCode StatusDate Activated Date InactivatedCommentsFull Code10/02/2019 1:47 PM10/06/2019 10:28 AMFull Code 09/30/2019 4:28 AM10/02/2019 1:47 PMDNR-CCA09/29/2019 6:38 PM09/30/2019 4:27 AM Full Code09/29/2019 4:18 PM09/29/2019 6:37 PMCode StatusDate ActivatedDate InactivatedCommentsFull Code10/06/2019 10:28 AM10/07/2019 5:37 PMCode StatusDate ActivatedDate InactivatedCommentsFull Code10/02/2019 1:47 PM10/06/2019 10:28 AM Full Code09/30/2019 4:28 AM10/02/2019 1:47 PMDNR-CCA09/29/2019 6:38 PM09/30/2019 4:27 AMFull Code09/29/2019 4:18 PM09/29/2019 6:37 PMTypeDate RecordedPatient RepresentativeExplanationACP-Power of Attorney2018 1:30 PMHealthcare POA ACP-Advance Directive2018 1:25 PMLiving WillACP-Advance Directive06/26/2013 1:20 PMACP-Power of Attorney06/26/2013 1:20 PMTypeDate RecordedPatient RepresentativeExplanationACP-Power of Attorney2018 1:30 PMHealthcare POA ACP-Advance Directive2018 1:25 PMLiving WillACP-Advance Directive06/26/2013 1:20 PMACP-Power of Attorney06/26/2013 1:20 PMDate ActivatedDate Inactivated Comments06/21/2024 1:49 PMDate ActivatedDate InactivatedComments06/15/2024 5:15 PM 06/21/2024 1:49 PMDate ActivatedDate InactivatedComments06/21/2024 1:49 PM8 1:47 PMDate ActivatedDate InactivatedComments06/15/2024 5:15 PM06/21/2024 1:49 PM Date ActivatedDate InactivatedComments06/21/2024 1:49 PM06/22/2024 1:47 PMDate ActivatedDate RxomenphjhzJhlmvrsz14/15/2024 7:23 AMDate ActivatedDate AzlrkstdepiUtmpnjlk70/14/2024 2:42 PM10 7:01 AMDate ActivatedDate ArtpzktddvdZdcezfch39/22/2019 10:28 AM10/07/2019 5:37 PMDate ActivatedDate EbqbztivhgdPsesgvlt47/18/2019 1:47 PM10/06/2019 10:28 AMDate ActivatedDate RjgjqafrjbzUkrqsfls03/16/2019 4:28 AM10/02/2019 1:47 PMNameRelationship Healthcare Agent RelationshipCommunicationLaaugusto Fraser HicksSpousePrimary Decision Maker* * * Marylou R AstonChildSecondary Decision Maker* Date ActivatedDate JpjosavyimiVckmeqvq83/15/2024 7:23 AM08/29/2024 8:32 PMName RelationshipHealthcare Agent RelationshipCommunicationLadonaurea BladerasksSpouse Primary Decision Maker* * * Marylou Nash AstonChildSecondary Decision Maker* Date ActivatedDate GhyoczblxqgXmlbtscn90/15/2024 7:23 AM08/29/2024 8:32 PMDate ActivatedDate LhlfublmfwdIbwnogrf87/14/2024 2:42 PM10 7:01 AMDate ActivatedDate NupriunexdlKgmnbnyb18/22/2019 10:28 AM10/07/2019 5:37 PMDate ActivatedDate DyjdrsebdioUkbssmuj56/18/2019 1:47 PM10/06/2019 10:28 AMDate ActivatedDate SkzfajmqrlaQzjglade02/16/2019 4:28 AM10/02/2019 1:47 PMName RelationshipHealthcare Agent RelationshipCommunicationLaaugusto AmatoSpaustyn Primary Decision Maker* * * Marylou Nash AstonChildSecondary Decision Maker* NameRelationshipHealthcare Agent RelationshipCommunicationLaaugusto AmatoSpouse Primary Decision Maker* * * Marylou R AstonChildSecondary Decision Maker* NameRelationshipHealthcare Agent RelationshipCommunicationLadonaurea BalderasksSpouse Primary Decision Maker* * * Marylou Saad ClancyChildSecondary Decision Maker* NameRelationshipHealthcare Agent RelationshipCommunicationSergio AmatoSpaustyn Primary Decision Maker* * * Marylou ClancyChildSecondary Decision Maker* Date ActivatedDate InactivatedComments02/09/2025 5:45 PMDate ActivatedDate JgrnzzeghwdPpxsnrrm64/15/2024 7:23 AM08/29/2024 8:32 PMDate ActivatedDate TpdjgkgapchXhbgjpuz78/14/2024 2:42 PM10 7:01 AMDate ActivatedDate NeeosldjjfxGkydjrdl33/22/2019 10:28 AM10/07/2019 5:37 PMDate ActivatedDate BdzwmylaimsZtgaftgk36/18/2019 1:47 PM10/06/2019 10:28 AMNameRelationship Healthcare Agent RelationshipCommunicationSergio GallagherPrimary Decision Maker* * * Marylou ClancyChildSecondary Decision Maker* Date ActivatedDate InactivatedComments02/09/2025 5:45 PM4 8:39 PMDate ActivatedDate CxuyhnvolaiPqbdrnln96/15/2024 7:23 AM08/29/2024 8:32 PMDate ActivatedDate UawxagetoebJaebdmnd79/14/2024 2:42 PM10 7:01 AMDate ActivatedDate PfiqqjxumdvPtwbftct89/22/2019 10:28 AM10/07/2019 5:37 PMDate ActivatedDate UbdaiuragzaFajnbeob00/18/2019 1:47 PM10/06/2019 10:28 AMName RelationshipHealthcare Agent RelationshipCommunicationLaaugusto AmatoSpaustyn Primary Decision Maker* * * Marylou Nash AstonChildSecondary Decision Maker* NameRelationshipHealthcare Agent RelationshipCommunicationLadonna Bria BalderasksSpouse Primary Decision Maker* * * Marylou R LoganChildSecondary Decision Maker* Date ActivatedDate InactivatedComments02/09/2025 5:45 PM02/14/2025 8:39 PMName RelationshipHealthcare Agent RelationshipCommunicationLadonna Bria HicksSpouse Primary Decision Maker* * * Marylou R LoganChildSecondary Decision Maker* NameRelationshipHealthcare Agent RelationshipCommunicationLadonna Bria BalderasksSpouse Primary Decision Maker* * * Marylou R LoganChildSecondary Decision Maker* NameRelationshipHealthcare Agent RelationshipCommunicationLadonna Bria BalderasksSpouse Primary Decision Maker* * * Marylou R AstonChildSecondary Decision Maker* NameRelationshipHealthcare Agent RelationshipCommunicationLadonna Bria BalderasksSpouse Primary Decision Maker* * * Marylou R LoganChildSecondary Decision Maker* NameRelationshipHealthcare Agent RelationshipCommunicationLadonna Bria HicksSpouse Primary Decision Maker* * * Marylou R LoganChildSecondary Decision Maker* NameRelationshipHealthcare Agent RelationshipCommunicationLadonna Bria HicksSpouse Primary Decision Maker* * * Marylou ClancyChildSecondary Decision Maker* NameRelationshipHealthcare Agent RelationshipCommunicationLaaugusto BalderasksSpouse Primary Decision Maker* * * Marylou ClancyChildSecondary Decision Maker* NameRelationshipHealthcare Agent RelationshipCommunicationLaaugusto BalderasksSpouse Primary Decision Maker* * * Marylou ClancyChildSecondary Decision Maker* NameRelationshipHealthcare Agent RelationshipCommunicationLaaugusto BalderasksSpouse Primary Decision Maker* * * Marylou ClancyChildSecondary Decision Maker* NameRelationshipHealthcare Agent RelationshipCommunicationLadonaurea BalderasksSpouse Primary Decision Maker* * * Marylou Nash LoganChildSecondary Decision Maker* Date ActivatedDate PpkvupoctqmJuiirusi38/9/2025 9:09 AMDate ActivatedDate WhjsdetjqrhSdjgxhis08/5/2025 5:02 PM09/23/2025 9:09 AMDate ActivatedDate InactivatedComments06/21/2024 1:49 PM06/22/2024 1:47 PMDate ActivatedDate InactivatedComments06/15/2024 5:15 PM06/21/2024 1:49 PMDate ActivatedDate CqvybdfkwqdFknmsxif79/9/2025 9:09 AMDate ActivatedDate InactivatedComments 09/19/2025 5:02 PM09/23/2025 9:09 AMDate ActivatedDate InactivatedComments06/21/2024 1:49 PM06/22/2024 1:47 PMDate ActivatedDate InactivatedComments06/15/2024 5:15 PM 06/21/2024 1:49 PM Hospital Course * Maurizio Velazco MD - 09/09/2019 11:34 AM EDT [facility] IN-PATIENT SERVICE [facility] Discharge Summary Patient ID: Lorenzo Amato : 1970 ACCOUNT: [id number] Patient's PCP: Lion Carlson MD Admit Date: 09/04/2019 Discharge Date: 09/09/2019 Length of Stay: 5 Code Status: Full Code Admitting Physician: Cheng Vicente DO Discharge Physician: Maurizio Velazco MD Active Discharge Diagnoses: Hospital Problem Lists: Principal Problem: Subcutaneous hematoma Active Problems: 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 * Admission Condition: fair Discharged Condition: good Hospital Stay: Hospital Course: Lorenzo Amato is a 49 y.o. male who was admitted for the management of Subcutaneous hematoma , presented to ER with noneTrauma (tx from iona, L4 fracture, ) Acute blood loss anemia secondary to hematoma probably related to pathological fracture of L4 patient need work-up as outpatient for osteoporosis patient denies history of trauma patient is adamant about going home today Lovenox was switched to Eliquis History of gastric carcinoid tumor follow-up with PCP and hematology oncology as outpatient Chronic renal failure stage III CMP in 1 week History of pulmonary embolism complicated decision Benefit I will with the rest continue anticoagulation Urinary retention status post Bill catheter Patient is adamant about going home today Per my associate: This is a 49-year-old white male who is on chronic anticoagulation with subcutaneous Lovenox that presents with left scapular pain and found to have subcutaneous hematoma. He is admitted for furthermanagement and serial H&H monitoring. His pain is better controlled with current oral medications. He denies any other acute complaints. He denies any injury. He does have chronic kidney disease and has had recent weight loss without adjustment of his Lovenox dosing. He has had evidence of urinary retention and acute kidney injury. Bill catheter has been placed. IV fluids initiated with improvement in his renal function. Cozaar and Lasix have been held. Significant therapeutic interventions: Significant Diagnostic Studies: Labs / Micro: CBC: Lab Results Component Value Date WBC 10.0 09/09/2019 RBC 3.12 09/09/2019 RBC 5.35 01/01/2012 HGB 8.7 09/09/2019 HCT 29.4 09/09/2019 MCV 94.2 09/09/2019 MCH 27.9 09/09/2019 MCHC 29.6 09/09/2019 RDW 17.1 09/09/2019 PLT 397 09/09/2019 PLT 365 01/01/2012 BMP: Lab Results Component Value Date GLUCOSE 102 09/09/2019 GLUCOSE 142 01/01/2012 NA 135 09/09/2019 K 4.0 09/09/2019 CL 100 09/09/2019 CO2 25 09/09/2019 ANIONGAP 10 09/09/2019 BUN 22 09/09/2019 CREATININE 1.61 09/09/2019 BUNCRER NOT REPORTED 09/09/2019 CALCIUM 8.9 09/09/2019 LABGLOM 46 09/09/2019 GFRAA 55 09/09/2019 GFR 09/09/2019 GFR NOT REPORTED 09/09/2019 HFP: Lab Results Component Value Date PROT 7.2 09/03/2019 CMP: Lab Results Component Value Date GLUCOSE 102 09/09/2019 GLUCOSE 142 01/01/2012 NA 135 09/09/2019 K 4.0 09/09/2019 CL 100 09/09/2019 CO2 25 09/09/2019 BUN 22 09/09/2019 CREATININE 1.61 09/09/2019 ANIONGAP 10 09/09/2019 ALKPHOS 89 09/03/2019 ALT 14 09/03/2019 AST 14 09/03/2019 BILITOT 0.25 09/03/2019 LABALBU 4.0 09/03/2019 LABALBU 4.5 04/04/2012 ALBUMIN NOT REPORTED 09/03/2019 LABGLOM 46 09/09/2019 GFRAA 55 09/09/2019 GFR 09/09/2019 GFR NOT REPORTED 09/09/2019 PROT 7.2 09/03/2019 CALCIUM 8.9 09/09/2019 PT/INR: Lab Results Component Value Date PROTIME 10.1 09/05/2019 PROTIME 30.7 09/05/2011 INR 0.9 09/05/2019 PTT: Lab Results Component Value Date APTT 28.5 09/04/2019 FLP: Lab Results Component Value Date CHOL 163 06/28/2019 TRIG 531 06/28/2019 HDL 27 06/28/2019 U/A: Lab Results Component Value Date COLORU YELLOW 09/04/2019 TURBIDITY CLEAR 09/04/2019 SPECGRAV 1.035 09/04/2019 HGBUR NEGATIVE 09/04/2019 PHUR 5.5 09/04/2019 PROTEINU 4+ 09/04/2019 GLUCOSEU 2+ 09/04/2019 KETUA TRACE 09/04/2019 BILIRUBINUR NEGATIVE 09/04/2019 BILIRUBINUR neg 04/05/2014 UROBILINOGEN Normal 09/04/2019 NITRU NEGATIVE 09/04/2019 LEUKOCYTESUR NEGATIVE 09/04/2019 TSH: Lab Results Component Value Date TSH 3.77 05/08/2013 Radiology: Ct Chest Wo Contrast Result Date: 09/04/2019 1. Nondisplaced fracture of the right T4 anterior inferior endplate with associated osteophyte. No further fractures of the spine. 2. Large 19+ centimeter hematoma of the posterior lateral left chestwall, deep to the musculature as above. Correlate with hemoglobin and hematocrit levels. IV contrast not utilized to assess for any active extravasation. 3. Moderate calcific coronary arterial disease. Ct Thoracic Spine Wo Contrast Result Date: 09/04/2019 1. Nondisplaced fracture of the right T4 anterior inferior endplate with associated osteophyte. No further fractures of the spine. 2. Large 19+ centimeter hematoma of the posterior lateral left chestwall, deep to the musculature as above. Correlate with hemoglobin and hematocrit levels. IV contrast not utilized to assess for any active extravasation. 3. Moderate calcific coronary arterial disease. Consultations: Consults: Final Specialist Recommendations/Findings: IP CONSULT TO HOSPITALIST IP CONSULT TO NEUROSURGERY IP CONSULT TO TRAUMA SURGERY IP CONSULT TO TRAUMA SURGERY IP CONSULT TO ONCOLOGY IP CONSULT TO UROLOGY The patient was seen and examined on day of discharge and this discharge summary is in conjunction with any daily progress note from day of discharge. Discharge plan: Disposition: Home Physician Follow Up: Lion Carlson MD [address] [phone] Schedule an appointment as soon as possible for a visit in 1 week Maria Teresa Mcguire MD [address] [id number] Go to As scheduled Lion Carlson MD [address] [phone] In 1 week David Chan MD [address] [facility] [phone] Requiring Further Evaluation/Follow Up POST HOSPITALIZATION/Incidental Findings: Review of CT scan full report Diet: cardiac diet Activity: As tolerated Instructions to Patient: As tolerated avoid heavy lifting counseling was given Discharge Medications: Medication List START taking these medications apixaban 5 MG Tabs tablet Commonly known as: ELIQUIS Take 1 tablet by mouth 2 times daily ferrous sulfate 325 (65 Fe) MG EC tablet Take 1 tablet by mouth daily (with breakfast) HYDROcodone-acetaminophen 5-325 MG per tablet Commonly known as: NORCO Take 1 tablet by mouth every 6 hours as needed (sever pain) for up to 3 days. polyethylene glycol packet Commonly known as: GLYCOLAX Take 17 g by mouth daily as needed for Constipation senna 8.6 MG tablet Commonly known as: SENOKOT Take 1 tablet by mouth nightly as needed (constipation) tamsulosin 0.4 MG capsule Commonly known as: FLOMAX Take 1 capsule by mouth daily CHANGE how you take these medications furosemide 20 MG tablet Commonly known as: LASIX Take 1 tablet by mouth (20 mg) every other day What changed: when to take this additional instructions CONTINUE taking these medications atorvastatin 80 MG tablet Commonly known as: LIPITOR TAKE 1 TABLET BY MOUTH ONE TIME DAILY blood glucose test strips strip Commonly known as: ASCENSIA AUTODISC ;ONE TOUCH ULTRA TEST 1 each by In Vitro route 4 times daily As needed. busPIRone 15 MG tablet Commonly known as: BUSPAR TAKE ONE TABLET BY MOUTH THREE TIMES A DAY DULoxetine 60 MG extended release capsule Commonly known as: CYMBALTA TAKE 1 CAPSULE BY MOUTH ONE TIME A DAY hydrALAZINE 50 MG tablet Commonly known as: APRESOLINE TAKE 1 1/2 TABLETS BY MOUTH TWICE DAILY insulin glargine 300 UNIT/ML injection pen Commonly known as: TOUJEO SOLOSTAR Inject 130 Units into the skin 2 times daily insulin lispro 100 UNIT/ML pen Commonly known as: HUMALOG Inject 5 Units into the skin 3 times daily (before meals) Insulin Pen Needle 31G X 8 MM Misc Use as directed with insulin pen needles, up to 5x/day meclizine 25 MG tablet Commonly known as: ANTIVERT Take 1 tablet by mouth 3 times daily as needed for Dizziness metoprolol 100 MG tablet Commonly known as: LOPRESSOR TAKE 1 TABLET BY MOUTH 2 TIMES A DAY omeprazole 40 MG delayed release capsule Commonly known as: PRILOSEC TAKE 1 CAPSULE BY MOUTH 2 TIMES A DAY Prodigy Autocode Blood Glucose w/Device Kit Use as directed to test up to 4 times daily PRODIGY LANCETS 28G Misc Use as directed to test up to 4 times daily SANDOSTATIN LAR DEPOT 30 MG injection Generic drug: octreotide ACETATE INJECT 30 MG INTO THE MUSCLE EVERY 28 DAYS vitamin D 1.25 MG (27534 UT) Caps capsule Commonly known as: ERGOCALCIFEROL Take 1 capsule by mouth once a week STOP taking these medications enoxaparin 150 MG/ML injection Commonly known as: LOVENOX losartan 25 MG tablet Commonly known as: COZAAR Where to Get Your Medications These medications were sent to [facility], [address] - [phone] - F [phone] [place] [id number] apixaban 5 MG Tabs tablet ferrous sulfate 325 (65 Fe) MG EC tablet polyethylene glycol packet senna 8.6 MG tablet tamsulosin 0.4 MG capsule You can get these medications from any pharmacy Bring a paper prescription for each of these medications HYDROcodone-acetaminophen 5-325 MG per tablet Time Spent on discharge is 35 mins in patient examination, evaluation, counseling as well as medication reconciliation, prescriptions for required medications, discharge plan and follow up. Electronically signed by Maurizio Velazco MD 09/09/2019 11:[address] Loin Carlson MD for the opportunity to be involved in this patient's care. documented in this encounter Discharge Instructions * Instructions* Jamia Walden RN - 09/09/2019 Hematoma: Care Instructions Your Care Instructions A hematoma is a bad bruise. It happens when an injury causes blood to collect and pool under the skin. The pooling blood gives the skin a spongy, rubbery, lumpy feel. A hematoma usually is not a cause for concern. It is not the same thing as a blood clot in a vein, and it does not cause blood clots. Follow-up care is a singer part of your treatment and safety. Be sure to make and go to all appointments, and call your doctor if you are having problems. It's also a good idea to know your test resultsand keep a list of the medicines you take. How can you care for yourself at home? Rest and protect the bruised area. Put ice or a cold pack on the area for 10 to 20 minutes at a time. Prop up the bruised area on a pillow when you ice it or anytime you sit or lie down during the next3 days. Try to keep it above the level of your heart. This will help reduce swelling. Wrapping the bruised area with an elastic bandage such as an Kwaku wrap will help decrease swelling. Don't wrap it too tightly, as this can cause more swelling below the affected area. Be safe with medicines. Read and follow all instructions on the label. ? If the doctor gave you a prescription medicine for pain, take it as prescribed. ? If you are not taking a prescription pain medicine, ask your doctor if you can take an [id number] medicine. Do not take two or more pain medicines at the same time unless the doctor told you to. Many pain medicines have acetaminophen, which is Tylenol. Too much acetaminophen (Tylenol) can be harmful. When should you call for help? Call your doctor now or seek immediate medical care if: You have signs of skin infection, such as: ? Increased pain, swelling, warmth, or redness. ? Red streaks leading from the area. ? Pus draining from the area. ? A fever. Watch closely for changes in your health, and be sure to contact your doctor if: The bruise lasts longer than 4 weeks. The bruise gets bigger or becomes more painful. You do not get better as expected. Where can you learn more? Go to [email or web address] and sign in to your [email or web address].ly account. Enter P911 in the Search Health Information box to learn more about Hematoma: Care Instructions. If you do not have an account, please click on the Sign Up Now link. Current as of: August 07, 2018 Content Version: [id number] [employer]. Care instructions adapted under license by [employer]. If youhave questions about a medical condition or this instruction, always ask your healthcare professional. [employer] disclaims any warranty or liability for your use of this information. documented in this encounter* Instructions* Lion Carlosn MD - 09/29/2019 Discharge Instructions Admission Date: 09/28/2019 Discharge Date: 09/29/19 Disposition: [place] Activity: As tolerated Diet: Diabetic Discharge Medication: Lorenzo Amato Home Medication Instructions BEA:[id number] Printed on:09/29/19 0554 Medication Information apixaban (ELIQUIS) 5 MG TABS tablet Take 1 tablet by mouth 2 times daily atorvastatin (LIPITOR) 80 MG tablet TAKE 1 TABLET BY MOUTH ONE TIME DAILY Blood Glucose Monitoring Suppl ([employer] AUTOCODE BLOOD GLUCOSE) w/Device KIT Use as directed to test up to 4 times daily blood glucose test strips ([employer] NO CODING BLOOD GLUC) strip 1 each by In Vitro route 4 times daily As needed. busPIRone (BUSPAR) 15 MG tablet TAKE ONE TABLET BY MOUTH THREE TIMES A DAY DULoxetine (CYMBALTA) 60 MG extended release capsule TAKE 1 CAPSULE BY MOUTH ONE TIME A DAY ferrous sulfate 325 (65 Fe) MG EC tablet Take 1 tablet by mouth daily (with breakfast) furosemide (LASIX) 20 MG tablet Take 1 tablet by mouth (20 mg) every other day hydrALAZINE (APRESOLINE) 50 MG tablet TAKE 1 1/2 TABLETS BY MOUTH TWICE DAILY insulin glargine (TOUJEO MAX SOLOSTAR) 300 UNIT/ML injection pen Inject 130 Units into the skin 2 times daily insulin lispro (HUMALOG KWIKPEN) 100 UNIT/ML pen Inject 5 Units into the skin 3 times daily (before meals) Insulin Pen Needle (B-D ULTRAFINE III SHORT PEN) 31G X 8 MM MISC Use as directed with insulin pen needles, up to 5x/day losartan (COZAAR) 25 MG tablet Take 25 mg by mouth daily To be starting this medication every other day, has not started yet. meclizine (ANTIVERT) 25 MG tablet Take 1 tablet by mouth 3 times daily as needed for Dizziness metoprolol (LOPRESSOR) 100 MG tablet TAKE 1 TABLET BY MOUTH 2 TIMES A DAY omeprazole (PRILOSEC) 40 MG delayed release capsule TAKE 1 CAPSULE BY MOUTH 2 TIMES A DAY polyethylene glycol (GLYCOLAX) packet Take 17 g by mouth daily as needed for Constipation PRODIGY LANCETS 28G MISC Use as directed to test up to 4 times daily SANDOSTATIN LAR DEPOT 30 MG injection INJECT 30 MG INTO THE MUSCLE EVERY 28 DAYS senna (SENOKOT) 8.6 MG tablet Take 1 tablet by mouth nightly as needed (constipation) tamsulosin (FLOMAX) 0.4 MG capsule Take 1 capsule by mouth daily vitamin D (ERGOCALCIFEROL) 90051 units CAPS capsule Take 1 capsule by mouth once a week Discharge Instructions: Resume previous home medication. Take Hydroxyzine 25 mg every 8 hours as needed for anxiety / panic attacks. Follow Up: With your primary care physician (Lion Carlson MD) in 1 week. documented in this encounter* Discharge Instr - DERRICK* Oksana Land RN - 10/07/2019 12:12 PM EST Continuity of Care Form Patient Name: Lorenzo Amato : 1970 Admit date: 09/29/2019 Discharge date: Code Status Order: Full Code Advance Directives: Advance Care Flowsheet Documentation Date/Time Healthcare Directive Type of Healthcare Directive Copy in Chart Healthcare Agent Appointed Healthcare Agent's Name Healthcare Agent's Phone Number 09/29/19 [phone] Yes, patient has an advance directive for healthcare treatment Living will;Durable power of deputy prosecuting attorney for health care -- Healthcare power of deputy prosecuting attorney sergio [phone] Admitting Physician: Tunde Pino MD PCP: Lion Carlson MD Discharging Nurse: Discharging Hospital Unit/Room#: Discharging Unit Phone Number: Emergency Contact: Extended Emergency Contact Information Primary Emergency Contact: Sergio Amato Address: [facility] [address] [facility] Relation: Spouse Secondary Emergency Contact: [place] [address] [facility] Relation: Parent Past Surgical History: Past Surgical History: Procedure Laterality Date APPENDECTOMY COLONOSCOPY CORONARY ANGIOPLASTY WITH STENT PLACEMENT 2004 [facility] THYROID SURGERY 05/11/13 Thyroid biopsy TONSILLECTOMY UPPER GASTROINTESTINAL ENDOSCOPY 10/14/2016 VASECTOMY 18 years ago Immunization History: Immunization History Administered Date(s) Administered Influenza 10/01/2011 Influenza Virus Vaccine 10/02/2014, 10/01/2015 Influenza, Quadv, IM, PF (6 mo and older Fluzone, Flulaval, Fluarix, and 3 yrs and older Afluria) 10/19/2016, 08/26/2017, 09/02/2018 Pneumococcal Polysaccharide ([id number]) 08/26/2014 Active Problems: Patient Active Problem List Diagnosis Code Multiple sclerosis (HCC) G35 CAD (coronary artery disease) I25.10 Iron deficiency anemia D50.9 NABOR (obstructive sleep apnea) G47.33 Mixed hyperlipidemia E78.2 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) E11.22, E11.65 Benign essential HTN I10 Vitamin D deficiency E55.9 GERD (gastroesophageal reflux disease) K21.9 Pulmonary embolism (HCC) I26.99 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 Z79.01 Carcinoid tumor of stomach D3A.092 Liver metastases (HCC) C78.7 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 DVT of lower extremity, bilateral (HCC) I82.403 Generalized anxiety disorder F41.1 Morbid obesity due to excess calories (HCC) E66.01 Gastric carcinoma (HCC) C16.9 CKD (chronic kidney disease) stage 3, GFR 30-59 ml/min (HCC) N18.3 Weak urinary stream R39.12 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 Right sided numbness R20.0 History of pulmonary embolus (PE) Z86.711 Hematoma T14.8XXA Subcutaneous hematoma T14.8XXA Acute blood loss anemia D62 REJI (acute kidney injury) (HCC) N17.9 Acute retention of urine R33.8 Chest pain R07.9 Coronary artery disease, occlusive I25.10 Isolation/Infection: Isolation No Isolation Patient Infection Status None to display Nurse Assessment: Last Vital Signs: BP 128/60 Pulse 65 Temp 98.1 F (36.7 C) (Oral) Resp 18 Ht 5' 9 (1.753 m) Wt 284 lb 9.6 oz (129.1 kg) SpO2 99% BMI 42.03 kg/m Last documented pain score (0-10 scale): Pain Level: 0 Last Weight: Wt Readings from Last 1 Encounters: 10/07/19 284 lb 9.6 oz (129.1 kg) Mental Status: {IP PT MENTAL STATUS:} IV Access: { DERRICK IV ACCESS:115343167} Nursing Mobility/ADLs: Walking {CHP DME ADLs:714458778} Transfer {CHP DME ADLs:695660408} Bathing {CHP DME ADLs:233780752} Dressing {CHP DME ADLs:403237425} Toileting {CHP DME ADLs:987647142} Feeding {CHP DME ADLs:874756009} Grill Associate {P DME ADLs:334521621} Med Delivery { DERRICK MED Delivery:336508420} Wound Care Documentation and Therapy: Elimination: Continence: Bowel: {YES / NO:} Bladder: {YES / NO:} Urinary Catheter: {Urinary Catheter:053560939} Colostomy/Ileostomy/Ileal Conduit: {YES / NO:} Date of Last BM: Intake/Output Summary (Last 24 hours) at 10/07/2019 1212 Last data filed at 10/07/2019 0938 Gross per 24 hour Intake 1911 ml Output Net 1911 ml I/O last 3 completed shifts: In: 1900 [I.V.:1900] Out: - Safety Concerns: { DERRICK Safety Concerns:041501661} Impairments/Disabilities: { DERRICK Impairments/Disabilities:329162434} Nutrition Therapy: Current Nutrition Therapy: { DERRICK Diet List:634440774} Routes of Feeding: {CHP DME Other Feedings:806588595} Liquids: {Yard Crane Operator liquid thickness:55467} Daily Fluid Restriction: {CHP DME Yes amt example:545659057} Last Modified Barium Swallow with Video (Video Swallowing Test): {Done Not Done Date:} Treatments at the Time of Hospital Discharge: Respiratory Treatments: Oxygen Therapy: {Therapy; copd oxygen:96708} Ventilator: {[facility] Vent List:662910750} Rehab Therapies: {THERAPEUTIC INTERVENTION:8171306261} Weight Bearing Status/Restrictions: { CC Weight Bearin} Other Medical Equipment (for information only, NOT a DME order): {EQUIPMENT:062091896} Other Treatments: Patient's personal belongings (please select all that are sent with patient): {CHP DME Belongings:313685398} RN SIGNATURE: {Esignature:268209105} CASE MANAGEMENT/SOCIAL WORK SECTION Inpatient Status Date: Readmission Risk Assessment Score: Readmission Risk Risk of Unplanned Readmission: 39 Discharging to Facility/ Agency Name: Address: Phone: Fax: Dialysis Facility (if applicable) Name: Address: Dialysis Schedule: Phone: Fax: Weaver Apprentice/Residential Door Installer signature: {Esignature:504310611} PHYSICIAN SECTION Prognosis: {Prognosis:2546399233} Condition at Discharge: { Patient Condition:520899138} Rehab Potential (if transferring to Rehab): {Prognosis:3019465400} Recommended Labs or Other Treatments After Discharge: Physician Certification: I certify the above information and transfer of Lorenzo Amato is necessary for the continuing treatment of the diagnosis listed and that he requires {Admit to Appropriate Level of Care:49861} for {GREATER/LESS:855553530} 30 days. Update Admission H&P: {CHP DME Changes in HandP:963842138} PHYSICIAN SIGNATURE: {Esignature:240832798} * Attachments The following attachments cannot be sent through Care Everywhere. * PCI (Percutaneous Coronary Intervention): Post-op ([place] Citizen) documented in this encounter History of Present Illness * Armani Figueroa MD - 09/08/2019 5:21 PM EDT Today's Date: 09/08/2019 Patient Name: Lorenzo Amato Date of admission: 09/04/2019 2:54 AM Patient's age: 49 y.o., 1970 Admission Dx: Subcutaneous hematoma [T14.8XXA] Reason for Consult: management recommendations Requesting Physician: Cheng Vicente DO CHIEF COMPLAINT: Subcutaneous hematoma. Chest wall pain History Obtained From: patient, spouse, electronic medical record History history: Patient seen and examined. Labs and vitals reviewed. H&H is stable. Patient started on oral anticoagulant. Pain is controlled. Denies fever or chills. Denies new complaint or interval event. HISTORY OF PRESENT ILLNESS: The patient is a 49 y.o. male who is admitted to the hospital for chief complaints of swelling of left chest wall and worsening of pain. 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 Patient has been on octreotide for a few years with symptoms well controlled. Last scan done couple months ago did not show any evidence of disease progression. Patient also has history of recurrent venous thromboembolism. He has history of IVC filter which isoccluded with formation of collaterals. Patient has been on Lovenox and developed subcutaneous hematomas something at the site of the Lovenox shot and sometimes spontaneous subcutaneous hematomas. Patient started noticing pain over his back about 5 days ago which gradually worsened. According the patient she started noticing a bump on the back on the left side yesterday which gradually progressed. CT chest shows large subcutaneous hematoma on the left side. Patient hemoglobin also dropped.CT scan with contrast could not be performed due to CKD. Patient is very reluctant to try direct oral anticoagulants. Past Medical History: has a past medical history of Anemia, Arthritis, Depression, DVT (deep venousthrombosis) (HCC), GI bleed, Lori filter in place, Hypercholesteremia, Hypertension, Liver metastases (HCC), CO (myocardial infarction) (HCC), MS (multiple sclerosis) (HCC), Neuroendocrine tumor, PE (pulmonary embolism), Type II or unspecified type diabetes mellitus without mention of complication, not stated as uncontrolled, Unspecified sleep apnea, and Vitamin D deficiency. Past Surgical History: has a past surgical history that includes Tonsillectomy; Appendectomy; Percutaneous Transluminal Coronary Angio; Colonoscopy; Vasectomy (18 years ago); Thyroid surgery (05/11/13); Coronary angioplasty with stent (2004); and Upper gastrointestinal endoscopy (10/14/2016). Medications: Prior to Admission medications Medication Sig Start Date End Date Taking? Authorizing Provider ferrous sulfate 325 (65 Fe) MG EC tablet Take 1 tablet by mouth daily (with breakfast) 09/09/19 Ann Marie Vitale MD polyethylene glycol (GLYCOLAX) packet Take 17 g by mouth daily as needed for Constipation 09/08/19 10/08/19 Yes Stacy Vitale MD senna (SENOKOT) 8.6 MG tablet Take 1 tablet by mouth nightly as needed (constipation) 09/08/19 10/08/19 Yes Stacy Vitale MD tamsulosin (FLOMAX) 0.4 MG capsule Take 1 capsule by mouth daily 09/09/19 Yes Stacy Vitale MD apixaban (ELIQUIS) 5 MG TABS tablet Take 1 tablet by mouth 2 times daily 09/08/19 Yes Stacy Vitale MD busPIRone (BUSPAR) 15 MG tablet TAKE ONE TABLET BY MOUTH THREE TIMES A DAY 08/17/19 Lion Carlson MD hydrALAZINE (APRESOLINE) 50 MG tablet TAKE 1 1/2 TABLETS BY MOUTH TWICE DAILY 06/16/19 Lion Carlson MD metoprolol (LOPRESSOR) 100 MG tablet TAKE 1 TABLET BY MOUTH 2 TIMES A DAY 06/09/19 Lion Carlson MD atorvastatin (LIPITOR) 80 MG tablet TAKE 1 TABLET BY MOUTH ONE TIME DAILY 05/11/19 Lion Carlson MD omeprazole (PRILOSEC) 40 MG delayed release capsule TAKE 1 CAPSULE BY MOUTH 2 TIMES A DAY 04/14/19 Lion Carlson MD SANDOSTATIN LAR DEPOT 30 MG injection INJECT 30 MG INTO THE MUSCLE EVERY 28 DAYS 04/11/19 Trevor Serna MD DULoxetine (CYMBALTA) 60 MG extended release capsule TAKE 1 CAPSULE BY MOUTH ONE TIME A DAY 04/11/19Lion Carlson MD furosemide (LASIX) 20 MG tablet Take 1 tablet by mouth (20 mg) every other day Patient taking differently: See Admin Instructions As needed wt gain swelling 03/06/19 Lion Carlson MD insulin lispro (HUMALOG KWIKPEN) 100 UNIT/ML pen Inject 5 Units into the skin 3 times daily (beforemeals) 03/06/19 Lion Carlson MD Insulin Pen Needle (B-D ULTRAFINE III SHORT PEN) 31G X 8 MM MISC Use as directed with insulin pen needles, up to 5x/day 03/06/19 Lion Carlson MD vitamin D (ERGOCALCIFEROL) 03798 units CAPS capsule Take 1 capsule by mouth once a week 03/06/19 Lion Carlson MD Blood Glucose Monitoring Suppl ([employer] AUTOCODE BLOOD GLUCOSE) w/Device KIT Use as directed to test up to 4 times daily 03/06/19 MD JUDITH Patel LANCETS 28G MISC Use as directed to test up to 4 times daily 03/06/19 Lion Carlson MD blood glucose test strips ([employer] NO CODING BLOOD GLUC) strip 1 each by In Vitro route 4 times daily As needed. 03/06/19 Lion Carlson MD insulin glargine (TOUJEO MAX SOLOSTAR) 300 UNIT/ML injection pen Inject 130 Units into the skin 2 times daily 08/02/18 Lion Carlson MD meclizine (ANTIVERT) 25 MG tablet Take 1 tablet by mouth 3 times daily as needed for Dizziness 02/25/18 Lion Carlson MD Current Facility-Administered Medications Medication Dose Route Frequency Provider Last Rate Last Dose [START ON 09/09/2019] ferrous sulfate EC tablet 325 mg 325 mg Oral Daily with breakfast Stacy Vitale MD apixaban (ELIQUIS) tablet 5 mg 5 mg Oral BID Stacy Vitale MD 5 mg at 09/08/19 1408 tamsulosin (FLOMAX) capsule 0.4 mg 0.4 mg Oral Daily William Hassan MD 0.4 mg at 09/08/19 0832 senna (SENOKOT) tablet 8.6 mg 1 tablet Oral Nightly PRN Cheng Vicente DO magnesium hydroxide (MILK OF MAGNESIA) 400 MG/5ML suspension 30 mL 30 mL Oral Daily PRN Cheng Vicente DO insulin glargine (LANTUS) injection vial 100 Units 100 Units Subcutaneous QAM Kanwal Preciado, PROCESS OWNER - CLAIMS ADJUSTOR 100 Units at 09/08/19 0833 fentaNYL (SUBLIMAZE) injection 50 mcg 50 mcg Intravenous Once Lexa M Brzycki, DO acetaminophen (TYLENOL) tablet 650 mg 650 mg Oral Q4H PRN WEST Olivares CNP nicotine (NICODERM CQ) 21 MG/24HR 1 patch 1 patch Transdermal Daily PRN WEST Olivares CNP ondansetron (ZOFRAN) injection 4 mg 4 mg Intravenous Q6H PRN WEST Olivares CNP 4 mg at 09/04/19 1511 polyethylene glycol (GLYCOLAX) packet 17 g 17 g Oral Daily PRN Tequila Mota APRN - CLAIMS ADJUSTOR 17 g at 09/06/19 1011 sodium chloride flush 0.9 % injection 10 mL 10 mL Intravenous 2 times per day WEST Olivares 10 mL at 09/07/19 204 sodium chloride flush 0.9 % injection 10 mL 10 mL Intravenous PRN WEST Olivares CNP 10 mL at 09/04/19 2148 insulin lispro (HUMALOG) injection vial 0-12 Units 0-12 Units Subcutaneous TID WC Cheng Vicente, DO 2 Units at 09/08/19 1256 insulin lispro (HUMALOG) injection vial 0-6 Units 0-6 Units Subcutaneous Nightly Cheng Wilsonp, DO 2 Units at 09/07/192043 glucose (GLUTOSE) 40 % oral gel 15 g 15 g Oral PRN Cheng Wilsonp, DO dextrose 50 % IV solution 12.5 g Intravenous PRN Cheng Wilsonp, DO glucagon (rDNA) injection 1 mg 1 mg Intramuscular PRN Cheng Vicente, DO dextrose 5 % solution 100 mL/hr Intravenous PRN Cheng Wilsonp, DO HYDROcodone-acetaminophen (NORCO) 5-325 MG per tablet 1 tablet 1 tablet Oral Q4H PRN Cheng Wilsonp, DO 1 tablet at 09/06/19 0508 Or HYDROcodone-acetaminophen (NORCO) 5-325 MG per tablet 2 tablet 2 tablet Oral Q4H PRN Cheng Wilsonp, DO 2 tablet at 09/07/192048 atorvastatin (LIPITOR) tablet 80 mg 80 mg Oral Nightly Cheng Wilsonp, DO 80 mg at 09/07/192041 busPIRone (BUSPAR) tablet 15 mg 15 mg Oral TID Cheng J Orlop, DO 15 mg at 09/08/19 1411 DULoxetine (CYMBALTA) extended release capsule 60 mg 60 mg Oral Daily Cheng J Orlop, DO 60 mg at 09/08/19 0832 [Held by provider] furosemide (LASIX) tablet 20 mg 20 mg Oral Q48H Chegn J Orlop, DO 20 mg at 09/04/19 1254 hydrALAZINE (APRESOLINE) tablet 75 mg 75 mg Oral BID Cheng J Orlop, DO 75 mg at 09/08/19 0832 [Held by provider] losartan (COZAAR) tablet 25 mg 25 mg Oral BID Cheng J Orlop, DO 25 mg at 09/04/19 1254 meclizine (ANTIVERT) tablet 25 mg 25 mg Oral TID PRN Cheng J Orlop, DO metoprolol tartrate (LOPRESSOR) tablet 100 mg 100 mg Oral BID Cheng J Orlop, DO 100 mg at 09/08/19 0832 pantoprazole (PROTONIX) tablet 40 mg 40 mg Oral QAM AC Cheng J Orlop, DO 40 mg at 09/08/19 0832 vitamin D (ERGOCALCIFEROL) capsule 50,000 Units 50,000 Units Oral Weekly Cheng J Orlop, DO 50,000Units at 09/04/19 1252 morphine (PF) injection 2 mg 2 mg Intravenous Q4H PRN Cheng Patel Orlop, DO 2 mg at 09/04/19 1939 influenza quadrivalent split vaccine (FLUZONE;FLUARIX;FLULAVAL;AFLURIA) injection 0.5 mL 0.5 mL Intramuscular Once Elvia Obrien RN LORazepam (ATIVAN) tablet 0.5 mg 0.5 mg Oral Q6H PRN Tequila Mota APRN - CLAIMS ADJUSTOR 0.5 mg at 09/08/19 0634 Allergies: Toradol [ketorolac tromethamine] and Lisinopril Social History: reports that he has never smoked. He has quit using smokeless tobacco. His smokeless tobacco use included chew. He reports that he does not drink alcohol or use drugs. Family History: family history includes Cancer in his mother; Heart Disease in his father. REVIEW OF SYSTEMS: Constitutional: No fever or chills. No night sweats, no weight loss Eyes: No eye discharge, double vision, or eye pain HEENT: negative for sore mouth, sore throat, hoarseness and voice change Respiratory: negative for cough , sputum, dyspnea, wheezing, hemoptysis, chest pain Cardiovascular: negative for chest pain, dyspnea, palpitations, orthopnea, PND Gastrointestinal: negative for nausea, vomiting, diarrhea, constipation, abdominal pain, Dysphagia,hematemesis and hematochezia Genitourinary: negative for frequency, dysuria, nocturia, urinary incontinence, and hematuria Integument: negative for rash, skin lesions, bruises. Hematologic/Lymphatic: negative for easy bruising, bleeding, lymphadenopathy, or petechiae Endocrine: negative for heat or cold intolerance,weight changes, change in bowel habits and hair loss Musculoskeletal: Positive for back pain Neurological: negative for headaches, dizziness, seizures, weakness, numbness PHYSICAL EXAM: BP 121/65 Pulse 83 Temp 98.4 F (36.9 C) (Oral) Resp 16 Ht 5' 9 (1.753 m) Wt 296 lb (134.3 kg) SpO2 99% BMI 43.71 kg/m Temp (24hrs), Av.5 F (36.9 C), Min:98.3 F (36.8 C), Max:98.8 F (37.1 C) General appearance - well appearing, no in pain or distress Mental status - alert and cooperative Eyes - pupils equal and reactive, extraocular eye movements intact Ears - bilateral TM's and external ear canals normal Mouth - mucous membranes moist, pharynx normal without lesions Neck - supple, no significant adenopathy Lymphatics - no palpable lymphadenopathy, no hepatosplenomegaly Chest - clear to auscultation, large tender firm bump noted on the back, left side heart - normal rate, regular rhythm, normal S1, S2, no murmurs Abdomen - soft, nontender, nondistended, no masses or organomegaly Neurological - alert, oriented, normal speech, no focal findings or movement disorder noted Musculoskeletal - no joint tenderness, deformity or swelling Extremities - peripheral pulses normal, no pedal edema, no clubbing or cyanosis Skin - normal coloration and turgor, no rashes, no suspicious skin lesions noted , DATA: Labs: CBC: Recent Labs 09/06/19 0506 10/2444809/[id number]/196 09/08/19614 WBC 12.0* -- 10.0 -- -- -- HGB 7.3* < > 6.9* < > 7.7* 7.6* HCT 24.2* < > 23.2* < > 25.1* 25.4* PLT 287 -- 291 -- -- -- < > = values in this interval not displayed. BMP: Recent Labs 09/07/1944809/08/19614 NA 137 139 K 4.8 4.8 CO2 23 20 BUN 24* 22* CREATININE 1.82* 1.86* LABGLOM 40* 39* GLUCOSE 163* 186* PT/INR: No results for input(s): PROTIME, INR in the last 72 hours. APTT: No results for input(s): APTT in the last 72 hours. LIVER PROFILE: No results for input(s): AST, ALT, LABALBU in the last 72 hours. Results for orders placed or performed during the hospital encounter of 09/04/19 TROP/MYOGLOBIN Result Value Ref Range Troponin, High Sensitivity 20 0 - 22 ng/L Troponin T NOT REPORTED <0.03 ng/mL Troponin Interp NOT REPORTED Myoglobin 89 (H) 28 - 72 ng/mL Trauma Panel Result Value Ref Range WBC 15.3 (H) 3.5 - 11.3 k/uL RBC 4.18 (L) 4.21 - 5.77 m/uL Hemoglobin 11.4 (L) 13.0 - 17.0 g/dL Hematocrit 35.9 (L) 40.7 - 50.3 % MCV 85.9 82.6 - 102.9 fL MCH 27.3 25.2 - 33.5 pg MCHC 31.8 28.4 - 34.8 g/dL RDW 15.4 (H) 11.8 - 14.4 % Platelets 304 138 - 453 k/uL MPV 10.4 8.1 - 13.5 fL NRBC Automated 0.0 0.0 per 100 WBC Sodium 130 (L) 135 - 144 mmol/L Potassium 4.4 3.7 - 5.3 mmol/L Chloride 96 (L) 98 - 107 mmol/L CO2 21 20 - 31 mmol/L Anion Gap 13 9 - 17 mmol/L Glucose 224 (H) 70 - 99 mg/dL pH, Marek 7.359 7.320 - 7.420 pCO2, Marek 42.8 39 - 55 pO2, Marek 38.3 30 - 50 HCO3, Venous 23.5 (L) 24 - 30 mmol/L Positive Base Excess, Marek NOT REPORTED 0.0 - 2.0 mmol/L Negative Base Excess, Marek 1.4 0.0 - 2.0 mmol/L O2 Sat, Marek 68.3 60.0 - 85.0 % Total Hb NOT REPORTED 12.0 - 16.0 g/dl Oxyhemoglobin NOT REPORTED 95.0 - 98.0 % Carboxyhemoglobin 1.4 0 - 5 % Methemoglobin NOT REPORTED 0.0 - 1.5 % Pt Temp 37.0 pH, Marek, Temp Adj NOT REPORTED 7.320 - 7.420 pCO2, Marek, Temp Adj NOT REPORTED 39 - 55 mmHg pO2, Marek, Temp Adj NOT REPORTED 30 - 50 mmHg O2 Device/Flow/% NOT REPORTED Respiratory Rate NOT REPORTED Roman Test NOT REPORTED Sample Site NOT REPORTED Pt. Position NOT REPORTED Mode NOT REPORTED Set Rate NOT REPORTED Total Rate NOT REPORTED VT NOT REPORTED FIO2 TRAUMA Peep/Cpap NOT REPORTED PSV NOT REPORTED Text for Respiratory NOT REPORTED NOTIFICATION NOT REPORTED NOTIFICATION TIME NOT REPORTED Blood Bank Specimen BILL FOR SERVICES PERFORMED hCG Qual PT IS MALE NEGATIVE BUN 16 6 - 20 mg/dL CREATININE 1.64 (H) 0.70 - 1.20 mg/dL GFR Non- 45 (L) >60 mL/min GFR 54 (L) >60 mL/min GFR Comment GFR Staging NOT REPORTED Ethanol <10 <10 mg/dL Ethanol percent <0.010 <0.010 % Protime 10.2 9.0 - 12.0 sec INR 1.0 PTT 28.5 20.5 - 30.5 sec Urine Drug Screen Result Value Ref Range Amphetamine Screen, Ur NEGATIVE NEGATIVE Barbiturate Screen, Ur NEGATIVE NEGATIVE Benzodiazepine Screen, Urine NEGATIVE NEGATIVE Cocaine Metabolite, Urine NEGATIVE NEGATIVE Methadone Screen, Urine NEGATIVE NEGATIVE Opiates, Urine POSITIVE (A) NEGATIVE Phencyclidine, Urine NEGATIVE NEGATIVE Propoxyphene, Urine NOT REPORTED NEGATIVE Cannabinoid Scrn, Ur NEGATIVE NEGATIVE Oxycodone Screen, Ur NEGATIVE NEGATIVE Methamphetamine, Urine NOT REPORTED NEGATIVE Tricyclic Antidepressants, Urine NOT REPORTED NEGATIVE MDMA, Urine NOT REPORTED NEGATIVE Buprenorphine Urine NOT REPORTED NEGATIVE Test Information Assay provides medical screening only. The absence of expected drug(s) and/or metabolite(s) may indicate diluted or adulterated urine, limitations of testing or timing of collection. Urinalysis Result Value Ref Range Color, UA YELLOW YELLOW Turbidity UA CLEAR CLEAR Glucose, Ur 2+ (A) NEGATIVE Bilirubin Urine NEGATIVE NEGATIVE Ketones, Urine TRACE (A) NEGATIVE Specific [place], UA 1.035 (H) 1.005 - 1.030 Urine Hgb NEGATIVE NEGATIVE pH, UA 5.5 5.0 - 8.0 Protein, UA 4+ (A) NEGATIVE Urobilinogen, Urine Normal Normal Nitrite, Urine NEGATIVE NEGATIVE Leukocyte Esterase, Urine NEGATIVE NEGATIVE Urinalysis Comments NOT REPORTED Hemoglobin and Hematocrit, Blood Result Value Ref Range Hemoglobin 9.5 (L) 13.0 - 17.0 g/dL Hematocrit 30.0 (L) 40.7 - 50.3 % Platelet function test Result Value Ref Range DARIEL/EPI Clos Time 87 85 - 172 sec Collagen Adenosine-5'-Diphosphate (Adp) Time 87 67 - 112 sec Platelet Function Interp Normal platelet function. If patient clinical history/Physical examination is positive for a bleeding diathesis, recommend repeat testing and/or additional primary hemostasis and/or coagulation studies. Basic Metabolic Panel w/ Reflex to MG Result Value Ref Range Glucose 242 (H) 70 - 99 mg/dL BUN 29 (H) 6 - 20 mg/dL CREATININE 2.42 (H) 0.70 - 1.20 mg/dL Bun/Cre Ratio NOT REPORTED 9 - 20 Calcium 8.6 8.6 - 10.4 mg/dL Sodium 133 (L) 135 - 144 mmol/L Potassium 4.3 3.7 - 5.3 mmol/L Chloride 98 98 - 107 mmol/L CO2 22 20 - 31 mmol/L Anion Gap 13 9 - 17 mmol/L GFR Non- 29 (L) >60 mL/min GFR 35 (L) >60 mL/min GFR Comment GFR Staging NOT REPORTED CBC Result Value Ref Range WBC 11.4 (H) 3.5 - 11.3 k/uL RBC 3.03 (L) 4.21 - 5.77 m/uL Hemoglobin 8.2 (L) 13.0 - 17.0 g/dL Hematocrit 26.4 (L) 40.7 - 50.3 % MCV 87.1 82.6 - 102.9 fL MCH 27.1 25.2 - 33.5 pg MCHC 31.1 28.4 - 34.8 g/dL RDW 16.1 (H) 11.8 - 14.4 % Platelets 308 138 - 453 k/uL MPV 10.2 8.1 - 13.5 fL NRBC Automated 0.0 0.0 per 100 WBC Protime-INR Result Value Ref Range Protime 10.1 9.0 - 12.0 sec INR 0.9 Hemoglobin and Hematocrit, Blood Result Value Ref Range Hemoglobin 10.1 (L) 13.0 - 17.0 g/dL Hematocrit 31.8 (L) 40.7 - 50.3 % Hemoglobin and Hematocrit, Blood Result Value Ref Range Hemoglobin 8.8 (L) 13.0 - 17.0 g/dL Hematocrit 28.6 (L) 40.7 - 50.3 % Microscopic Urinalysis Result Value Ref Range - WBC, UA 2 TO 5 0 - 5 /HPF RBC, UA 2 TO 5 0 - 2 /HPF Casts UA 10 TO 20 0 - 2 /LPF Casts UA HYALINE 0 - 2 /LPF Crystals UA NOT REPORTED None /HPF Epithelial Cells UA 2 TO 5 0 - 5 /HPF Renal Epithelial, Urine NOT REPORTED 0 /HPF Bacteria, UA FEW (A) None Mucus, UA 2+ (A) None Trichomonas, UA NOT REPORTED None Amorphous, UA NOT REPORTED None Other Observations UA NOT REPORTED NOT REQ. Yeast, UA NOT REPORTED None Hemoglobin and Hematocrit, Blood Result Value Ref Range Hemoglobin 7.6 (L) 13.0 - 17.0 g/dL Hematocrit 24.6 (L) 40.7 - 50.3 % Basic Metabolic Panel w/ Reflex to MG Result Value Ref Range Glucose 254 (H) 70 - 99 mg/dL BUN 30 (H) 6 - 20 mg/dL CREATININE 2.29 (H) 0.70 - 1.20 mg/dL Bun/Cre Ratio NOT REPORTED 9 - 20 Calcium 8.7 8.6 - 10.4 mg/dL Sodium 133 (L) 135 - 144 mmol/L Potassium 4.8 3.7 - 5.3 mmol/L Chloride 98 98 - 107 mmol/L CO2 24 20 - 31 mmol/L Anion Gap 11 9 - 17 mmol/L GFR Non- 30 (L) >60 mL/min GFR 37 (L) >60 mL/min GFR Comment GFR Staging NOT REPORTED Iron and TIBC Result Value Ref Range Iron 36 (L) 59 - 158 ug/dL TIBC 215 (L) 250 - 450 ug/dL Iron Saturation 17 (L) 20 - 55 % UIBC 179 112 - 347 ug/dL Ferritin Result Value Ref Range Ferritin 62 30 - 400 ug/L Hemoglobin and Hematocrit, Blood Result Value Ref Range Hemoglobin 7.7 (L) 13.0 - 17.0 g/dL Hematocrit 25.3 (L) 40.7 - 50.3 % Basic Metabolic Panel w/ Reflex to MG Result Value Ref Range Glucose 173 (H) 70 - 99 mg/dL BUN 28 (H) 6 - 20 mg/dL CREATININE 1.87 (H) 0.70 - 1.20 mg/dL Bun/Cre Ratio NOT REPORTED 9 - 20 Calcium 8.8 8.6 - 10.4 mg/dL Sodium 135 135 - 144 mmol/L Potassium 4.4 3.7 - 5.3 mmol/L Chloride 101 98 - 107 mmol/L CO2 22 20 - 31 mmol/L Anion Gap 12 9 - 17 mmol/L GFR Non- 38 (L) >60 mL/min GFR 47 (L) >60 mL/min GFR Comment GFR Staging NOT REPORTED CBC Auto Differential Result Value Ref Range WBC 12.0 (H) 3.5 - 11.3 k/uL RBC 2.68 (L) 4.21 - 5.77 m/uL Hemoglobin 7.3 (L) 13.0 - 17.0 g/dL Hematocrit 24.2 (L) 40.7 - 50.3 % MCV 90.3 82.6 - 102.9 fL MCH 27.2 25.2 - 33.5 pg MCHC 30.2 28.4 - 34.8 g/dL RDW 16.3 (H) 11.8 - 14.4 % Platelets 287 138 - 453 k/uL MPV 10.3 8.1 - 13.5 fL NRBC Automated 0.0 0.0 per 100 WBC Differential Type NOT REPORTED WBC Morphology NOT REPORTED RBC Morphology ANISOCYTOSIS PRESENT Platelet Estimate NOT REPORTED Seg Neutrophils 79 (H) 36 - 65 % Lymphocytes 11 (L) 24 - 43 % Monocytes 8 3 - 12 % Eosinophils % 1 1 - 4 % Basophils 0 0 - 2 % Immature Granulocytes 1 (H) 0 % Segs Absolute 9.47 (H) 1.50 - 8.10 k/uL Absolute Lymph # 1.37 1.10 - 3.70 k/uL Absolute [place] # 1.00 0.10 - 1.20 k/uL Absolute Eos # 0.10 0.00 - 0.44 k/uL Basophils Absolute <0.03 0.00 - 0.20 k/uL Absolute Immature Granulocyte 0.07 0.00 - 0.30 k/uL Hemoglobin and Hematocrit, Blood Result Value Ref Range Hemoglobin 7.2 (L) 13.0 - 17.0 g/dL Hematocrit 24.5 (L) 40.7 - 50.3 % Hemoglobin and Hematocrit, Blood Result Value Ref Range Hemoglobin 7.1 (L) 13.0 - 17.0 g/dL Hematocrit 23.5 (L) 40.7 - 50.3 % CBC Auto Differential Result Value Ref Range WBC 10.0 3.5 - 11.3 k/uL RBC 2.56 (L) 4.21 - 5.77 m/uL Hemoglobin 6.9 (LL) 13.0 - 17.0 g/dL Hematocrit 23.2 (L) 40.7 - 50.3 % MCV 90.6 82.6 - 102.9 fL MCH 27.0 25.2 - 33.5 pg MCHC 29.7 28.4 - 34.8 g/dL RDW 16.4 (H) 11.8 - 14.4 % Platelets 291 138 - 453 k/uL MPV 10.3 8.1 - 13.5 fL NRBC Automated 0.2 (H) 0.0 per 100 WBC Differential Type NOT REPORTED WBC Morphology NOT REPORTED RBC Morphology ANISOCYTOSIS PRESENT Platelet Estimate NOT REPORTED Seg Neutrophils 75 (H) 36 - 65 % Lymphocytes 14 (L) 24 - 43 % Monocytes 8 3 - 12 % Eosinophils % 2 1 - 4 % Basophils 0 0 - 2 % Immature Granulocytes 1 (H) 0 % Segs Absolute 7.54 1.50 - 8.10 k/uL Absolute Lymph # 1.37 1.10 - 3.70 k/uL Absolute [place] # 0.84 0.10 - 1.20 k/uL Absolute Eos # 0.16 0.00 - 0.44 k/uL Basophils Absolute 0.03 0.00 - 0.20 k/uL Absolute Immature Granulocyte 0.07 0.00 - 0.30 k/uL Basic Metabolic Panel w/ Reflex to MG Result Value Ref Range Glucose 163 (H) 70 - 99 mg/dL BUN 24 (H) 6 - 20 mg/dL CREATININE 1.82 (H) 0.70 - 1.20 mg/dL Bun/Cre Ratio NOT REPORTED 9 - 20 Calcium 8.8 8.6 - 10.4 mg/dL Sodium 137 135 - 144 mmol/L Potassium 4.8 3.7 - 5.3 mmol/L Chloride 103 98 - 107 mmol/L CO2 23 20 - 31 mmol/L Anion Gap 11 9 - 17 mmol/L GFR Non- 40 (L) >60 mL/min GFR 48 (L) >60 mL/min GFR Comment GFR Staging NOT REPORTED Hemoglobin and Hematocrit, Blood Result Value Ref Range Hemoglobin 7.6 (L) 13.0 - 17.0 g/dL Hematocrit 25.8 (L) 40.7 - 50.3 % Hemoglobin and Hematocrit, Blood Result Value Ref Range Hemoglobin 7.7 (L) 13.0 - 17.0 g/dL Hematocrit 25.1 (L) 40.7 - 50.3 % Hemoglobin and Hematocrit, Blood Result Value Ref Range Hemoglobin 7.6 (L) 13.0 - 17.0 g/dL Hematocrit 25.4 (L) 40.7 - 50.3 % Basic Metabolic Panel Result Value Ref Range Glucose 186 (H) 70 - 99 mg/dL BUN 22 (H) 6 - 20 mg/dL CREATININE 1.86 (H) 0.70 - 1.20 mg/dL Bun/Cre Ratio NOT REPORTED 9 - 20 Calcium 8.7 8.6 - 10.4 mg/dL Sodium 139 135 - 144 mmol/L Potassium 4.8 3.7 - 5.3 mmol/L Chloride 103 98 - 107 mmol/L CO2 20 20 - 31 mmol/L Anion Gap 16 9 - 17 mmol/L GFR Non- 39 (L) >60 mL/min GFR 47 (L) >60 mL/min GFR Comment GFR Staging NOT REPORTED POC Glucose Fingerstick Result Value Ref Range POC Glucose 258 (H) 75 - 110 mg/dL POC Glucose Fingerstick Result Value Ref Range POC Glucose 255 (H) 75 - 110 mg/dL POC Glucose Fingerstick Result Value Ref Range POC Glucose 192 (H) 75 - 110 mg/dL POC Glucose Fingerstick Result Value Ref Range POC Glucose 205 (H) 75 - 110 mg/dL POC Glucose Fingerstick Result Value Ref Range POC Glucose 198 (H) 75 - 110 mg/dL POC Glucose Fingerstick Result Value Ref Range POC Glucose 227 (H) 75 - 110 mg/dL POC Glucose Fingerstick Result Value Ref Range POC Glucose 242 (H) 75 - 110 mg/dL POC Glucose Fingerstick Result Value Ref Range POC Glucose 254 (H) 75 - 110 mg/dL POC Glucose Fingerstick Result Value Ref Range POC Glucose 205 (H) 75 - 110 mg/dL POC Glucose Fingerstick Result Value Ref Range POC Glucose 171 (H) 75 - 110 mg/dL POC Glucose Fingerstick Result Value Ref Range POC Glucose 239 (H) 75 - 110 mg/dL POC Glucose Fingerstick Result Value Ref Range POC Glucose 222 (H) 75 - 110 mg/dL POC Glucose Fingerstick Result Value Ref Range POC Glucose 155 (H) 75 - 110 mg/dL POC Glucose Fingerstick Result Value Ref Range POC Glucose 269 (H) 75 - 110 mg/dL POC Glucose Fingerstick Result Value Ref Range POC Glucose 253 (H) 75 - 110 mg/dL POC Glucose Fingerstick Result Value Ref Range POC Glucose 197 (H) 75 - 110 mg/dL POC Glucose Fingerstick Result Value Ref Range POC Glucose 248 (H) 75 - 110 mg/dL POC Glucose Fingerstick Result Value Ref Range POC Glucose 158 (H) 75 - 110 mg/dL POC Glucose Fingerstick Result Value Ref Range POC Glucose 184 (H) 75 - 110 mg/dL POC Glucose Fingerstick Result Value Ref Range POC Glucose 228 (H) 75 - 110 mg/dL TYPE AND SCREEN Result Value Ref Range Expiration Date 09/07/2019 Arm Band Number [id number] ABO/Rh AB NEGATIVE Antibody Screen NEGATIVE Unit Number [id number] Product Code Leukocyte Reduced Red Cell Unit Divison 00 Dispense Status TRANSFUSED Transfusion Status OK TO TRANSFUSE Crossmatch Result COMPATIBLE IMAGING DATA: Ct Chest Wo Contrast Result Date: 09/04/2019 EXAMINATION: CT THORACIC SPINE WO CONTRAST, CT CHEST WO CONTRAST HISTORY: Pain the left side with possible hematoma. History of cancer. COMPARISON: None. TECHNIQUE: CT examination of the chest obtained without IV contrast. Coronal and sagittal reformations were performed. Additional reconstructed images of the entire spine performed. Dose reduction techniques were achieved by using automated exposure control and/or adjustment of mA and/or kV according to patient size and/or use of iterative reconstruction technique. FINDINGS: CT CHEST: Mild dependent atelectatic changes noted. Lungs are otherwise well inflated and clear. There is no pleural effusion, consolidation or acute infiltrate. Thereis no evidence an interstitial lung disease. The major airway is patent. No rib fractures or pneumothorax. Note is made of a large multiloculated hematoma in the left posterior lateral chest wall deep to the latissimus dorsi and oblique muscles. It measures approximately 19.5 x 6.4 x 11.5 cm. Thereis no axillary, hilar or mediastinal adenopathy. No visible mediastinal masses. Normal appearance of the heart without pericardial effusion. There is moderate coronary arterial calcification. Normal appearance of the aorta and great vessels for technique without evidence of aneurysm, dissection, orvasculitis. The thyroid gland is unremarkable. There is no hiatal hernia. The visualized portion ofthe upper abdomen demonstrates no acute or concerning abnormality. CT T Spine: There is a nondisplaced fracture of the anterior inferior endplate and associated osteophyte of the T4 level along the right aspect. This is best appreciated on axial images 37 through 41. There are no further acute fractures. Alignment is normal. The intervertebral disc spaces appear preserved throughout the thoracic spine. There are diffuse flowing osteophytes throughout. No obvious bony neural foraminal or centralcanal stenosis. 1. Nondisplaced fracture of the right T4 anterior inferior endplate with associated osteophyte. No further fractures of the spine. 2. Large 19+ centimeter hematoma of the posterior lateral left chestwall, deep to the musculature as above. Correlate with hemoglobin and hematocrit levels. IV contrast not utilized to assess for any active extravasation. 3. Moderate calcific coronary arterial disease. Ct Thoracic Spine Wo Contrast Result Date: 09/04/2019 EXAMINATION: CT THORACIC SPINE WO CONTRAST, CT CHEST WO CONTRAST HISTORY: Pain the left side with possible hematoma. History of cancer. COMPARISON: None. TECHNIQUE: CT examination of the chest obtained without IV contrast. Coronal and sagittal reformations were performed. Additional reconstructed images of the entire spine performed. Dose reduction techniques were achieved by using automated exposure control and/or adjustment of mA and/or kV according to patient size and/or use of iterative reconstruction technique. FINDINGS: CT CHEST: Mild dependent atelectatic changes noted. Lungs are otherwise well inflated and clear. There is no pleural effusion, consolidation or acute infiltrate. Thereis no evidence an interstitial lung disease. The major airway is patent. No rib fractures or pneumothorax. Note is made of a large multiloculated hematoma in the left posterior lateral chest wall deep to the latissimus dorsi and oblique muscles. It measures approximately 19.5 x 6.4 x 11.5 cm. Thereis no axillary, hilar or mediastinal adenopathy. No visible mediastinal masses. Normal appearance of the heart without pericardial effusion. There is moderate coronary arterial calcification. Normal appearance of the aorta and great vessels for technique without evidence of aneurysm, dissection, orvasculitis. The thyroid gland is unremarkable. There is no hiatal hernia. The visualized portion ofthe upper abdomen demonstrates no acute or concerning abnormality. CT T Spine: There is a nondisplaced fracture of the anterior inferior endplate and associated osteophyte of the T4 level along the right aspect. This is best appreciated on axial images 37 through 41. There are no further acute fractures. Alignment is normal. The intervertebral disc spaces appear preserved throughout the thoracic spine. There are diffuse flowing osteophytes throughout. No obvious bony neural foraminal or centralcanal stenosis. 1. Nondisplaced fracture of the right T4 anterior inferior endplate with associated osteophyte. No further fractures of the spine. 2. Large 19+ centimeter hematoma of the posterior lateral left chestwall, deep to the musculature as above. Correlate with hemoglobin and hematocrit levels. IV contrast not utilized to assess for any active extravasation. 3. Moderate calcific coronary arterial disease. 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 Clinically patient does not have any signs or symptoms of carcinoid syndrome. Next dose of octreotide is scheduled for 09/15/2019 Patient started on oral anticoagulant. Continue to monitor H&H Pain control Symptom management and supportive care Thank you for asking us to see this patient. Armani Figueroa MD This note is created with the assistance of a speech recognition program. While intending to generate a document that actually reflects the content of the visit, the document can still have some errors including those of syntax and sound a like substitutions which may escape proof reading. It such instances, actual meaning can be extrapolated by contextual diversion. * Yahaira Gerardo, OT - 09/08/2019 3:59 PM EDT Occupational Therapy Occupational Therapy Initial Assessment Date: 09/08/2019 Patient Name: Lorenzo Amato : 1970 Date of Service: 09/08/2019 Discharge Recommendations: No therapy recommended at discharge. Assessment Performance deficits / Impairments: Decreased ADL status;Decreased strength;Decreased endurance;Decreased high-level IADLs Treatment Diagnosis: hematoma Prognosis: Good Decision Making: Low Complexity Patient Education: pt ed on POC, purpose of eval, importance of movement, benefits of therapy. fairreturn REQUIRES OT FOLLOW UP: Yes Activity Tolerance Activity Tolerance: Patient Tolerated treatment well;Patient limited by pain Safety Devices Safety Devices in place: Yes Type of devices: Call light within reach;Left in bed Restraints Initially in place: No Patient Diagnosis(es): The primary encounter diagnosis was Hematoma. Diagnoses of CKD (chronic kidney disease) stage 3, GFR 30-59 ml/min (HCC) and REJI (acute kidney injury) (HCC) were also pertinent to this visit. has a past medical history of Anemia, Arthritis, Depression, DVT (deep venous thrombosis) (HCC), GIbleed, Lori filter in place, Hypercholesteremia, Hypertension, Liver metastases (HCC), CO (myocardial infarction) (HCC), MS (multiple sclerosis) (HCC), Neuroendocrine tumor, PE (pulmonary embolism), Type II or unspecified type diabetes mellitus without mention of complication, not stated as uncontrolled, Unspecified sleep apnea, and Vitamin D deficiency. has a past surgical history that includes Tonsillectomy; Appendectomy; Percutaneous Transluminal Coronary Angio; Colonoscopy; Vasectomy (18 years ago); Thyroid surgery (05/11/13); Coronary angioplastywith stent (2004); and Upper gastrointestinal endoscopy (10/14/2016). Treatment Diagnosis: hematoma Restrictions Restrictions/Precautions Restrictions/Precautions: General Precautions Required Braces or Orthoses?: No Position Activity Restriction Other position/activity restrictions: Chronic T4 fx; CTLS clear per neurosurgery with no planned surgical intervention Subjective General Patient assessed for rehabilitation services?: Yes Family / Caregiver Present: Yes(pt present for duration of session) Diagnosis: hematoma General Comment Comments: RN ok'd for therapy this morning. Pt minimally agreeable to participate in session but cooperative throughout Patient Currently in Pain: Yes Pain Assessment Pain Assessment: 0-10 Pain Level: 5 Guaman-Art Pain Rating: Hurts a little bit Pain Type: Acute pain Pain Location: Back Pain Descriptors: Discomfort Non-Pharmaceutical Pain Intervention(s): Ambulation/Increased Activity;Distraction;Therapeutic presence Response to Pain Intervention: Patient Satisfied Oxygen Therapy O2 Device: None (Room air) Social/Functional History Social/Functional History Lives With: Spouse(son and 11, 9, 6 year old grandchildren ) Type of Home: House Home Layout: Two level, Bed/Bath upstairs(pt reported main bathroom on main) Home Access: Ramped entrance Bathroom Shower/Tub: Tub/Shower unit Bathroom Toilet: Standard Home Equipment: Cane, Wheelchair-manual(pt reported no use of DME at baseline ) ADL Assistance: Independent Homemaking Assistance: Needs assistance Homemaking Responsibilities: No(pt reported completes IADLs) Ambulation Assistance: Independent Transfer Assistance: Independent 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 Mode of Transportation: Truck Occupation: On disability Leisure & Hobbies: spend time with grandchildren, play computer games Additional Comments: pt reported able to assist PRN Objective Vision: Within Functional Limits Hearing: Within functional limits Orientation Overall Orientation Status: Within Functional Limits Balance Sitting Balance: Modified independent (~3 minutes on EOB ) Standing Balance: Stand by assistance Standing Balance Time: ~2 minutes Activity: pt completed functional mobility to doorway and back to bed Comment: pt with no LOB ADL Feeding: Modified independent Grooming: Modified independent UE Bathing: Supervision LE Bathing: Stand by assistance UE Dressing: Supervision LE Dressing: Stand by assistance Toileting: Stand by assistance Tone RUE RUE Tone: Normotonic Tone LUE LUE Tone: Normotonic Coordination Movements Are Fluid And Coordinated: Yes Bed mobility Supine to Sit: Minimal assistance Sit to Supine: (pt retired to sitting on EOB at end of session) Scooting: Supervision Transfers Sit to stand: Stand by assistance Stand to sit: Stand by assistance Cognition Overall Cognitive Status: WFL Sensation Overall Sensation Status: WFL LUE AROM : WFL Left Hand AROM: WFL RUE AROM : WFL Right Hand AROM: WFL LUE Strength Gross LUE Strength: Exceptions to WFL L Hand General: 4/5 RUE Strength Gross RUE Strength: Exceptions to WFL R Hand General: 4/5 Plan Plan Times per week: 2-3 visits AM-PAC Score AM-PAC Inpatient Daily Activity Raw Score: 20 (09/08/19 155) AM-PAC Inpatient ADL T-Scale Score : 42.03 (09/08/191554) ADL Inpatient CMS 0-100% Score: 38.32 (09/08/191554) ADL Inpatient CMS G-Code Modifier : CJ (09/08/191554) Goals Short term goals Time Frame for Short term goals: pt will, by discharge Short term goal 1: complete LB and UB ADLs with mod I and set up Short term goal 2: increase activity tolerance to 15+ minutes in order to participate in daily tasks Short term goal 3: dem mod I during functional transfers/functional mobility Short term goal 4: dem ~8 minutes dynamic standing tolerance with mod I Therapy Time Individual Concurrent Group Co-treatment Time In 1041 Time Out 1047 Minutes 6 Yahaira Gerardo OTR/L * Yuni Winter, PT - 09/08/2019 3:34 PM EDT Physical Therapy Facility/Department: [address] ONC/MED SURG Initial Assessment NAME: Lorenzo Amato : 1970 Date of Service: 09/08/2019 Discharge Recommendations: Further therapy recommended at discharge. PT Equipment Recommendations Equipment Needed: No Assessment Body structures, Functions, Activity limitations: Decreased functional mobility ;Decreased balance;Decreased ROM;Decreased strength;Decreased sensation;Increased pain;Decreased endurance Assessment: Pt ambulated 40ft w/ no AD SBA, no LOB noted throughout. Tolerance to functional mobility limited d/t pain this date. Pt would benefit from continued skilled physical therapy to address functional mobility deficits and return pt to prior level of function. Prognosis: Good Decision Making: Medium Complexity PT Education: Goals;PT Role;Plan of Care Patient Education: Log roll technique REQUIRES PT FOLLOW UP: Yes Activity Tolerance Activity Tolerance: Patient limited by endurance Patient Diagnosis(es): The primary encounter diagnosis was Hematoma. Diagnoses of CKD (chronic kidney disease) stage 3, GFR 30-59 ml/min (HCC) and REJI (acute kidney injury) (HCC) were also pertinent to this visit. has a past medical history of Anemia, Arthritis, Depression, DVT (deep venous thrombosis) (HCC), GIbleed, [place] filter in place, Hypercholesteremia, Hypertension, Liver metastases (HCC), CO (myocardial infarction) (HCC), MS (multiple sclerosis) (HCC), Neuroendocrine tumor, PE (pulmonary embolism), Type II or unspecified type diabetes mellitus without mention of complication, not stated as uncontrolled, Unspecified sleep apnea, and Vitamin D deficiency. has a past surgical history that includes Tonsillectomy; Appendectomy; Percutaneous Transluminal Coronary Angio; Colonoscopy; Vasectomy (18 years ago); Thyroid surgery (05/11/13); Coronary angioplastywith stent (2004); and Upper gastrointestinal endoscopy (10/14/2016). Restrictions Restrictions/Precautions Restrictions/Precautions: General Precautions Required Braces or Orthoses?: No Position Activity Restriction Other position/activity restrictions: Chronic T4 fx; CTLS clear per neurosurgery with no planned surgical intervention Vision/Hearing Vision: Within Functional Limits Hearing: Within functional limits Subjective General Patient assessed for rehabilitation services?: Yes Response To Previous Treatment: Not applicable Family / Caregiver Present: No Follows Commands: Within Functional Limits Subjective Subjective: RN and pt in agreement for PT eval; pt supine in bed upon PT arrival, requiring max encouragement to participate in therapy, cooperative throughout Pain Screening Patient Currently in Pain: Yes Pain Assessment Pain Assessment: Faces Guaman-Art Pain Rating: Hurts a little bit Pain Type: Acute pain Pain Location: Back Pain Descriptors: Discomfort Non-Pharmaceutical Pain Intervention(s): Ambulation/Increased Activity;Repositioned Response to Pain Intervention: Patient Satisfied Multiple Pain Sites: No Vital Signs Patient Currently in Pain: Yes Orientation Orientation Overall Orientation Status: Within Functional Limits Social/Functional History Social/Functional History Lives With: Spouse(son and 11, 9, 6 year old grandchildren ) Type of Home: House Home Layout: Two level, Bed/Bath upstairs(pt reported main bathroom on main) Home Access: Ramped entrance Bathroom Shower/Tub: Tub/Shower unit Bathroom Toilet: Standard Home Equipment: Cane, Wheelchair-manual(pt reported no use of DME at baseline ) ADL Assistance: Independent Homemaking Assistance: Needs assistance Homemaking Responsibilities: No(pt reported completes IADLs) Ambulation Assistance: Independent Transfer Assistance: Independent 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 Mode of Transportation: Truck Occupation: On disability Leisure & Hobbies: spend time with grandchildren, play computer games Additional Comments: pt reported able to assist PRN Cognition Cognition Overall Cognitive Status: WFL Objective Joint Mobility Spine: WFL ROM RLE: WFL ROM LLE: WFL ROM RUE: See OT assessment- PT/ OT coeval ROM LUE: See OT assessment- PT/ OT coeval Strength RLE Strength RLE: WFL Strength LLE Strength LLE: WFL Strength RUE Comment: See OT assessment- PT/ OT coeval Strength LUE Comment: See OT assessment- PT/ OT coeval Motor Control Gross Motor?: WFL Sensation Overall Sensation Status: WFL(Pt denies numbness/tingling) Bed mobility Supine to Sit: Minimal assistance(Provided for trunk progression ) Sit to Supine: (DIANNE- pt retired seated EOB upon 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 No LOB noted throughout Stairs/Curb Stairs?: No Balance Posture: Fair Sitting - Static: Good;- Sitting - Dynamic: Good;- Standing - Static: Fair;+ Standing - Dynamic: Fair;+ Comments: Standing balance with no AD Plan Plan Times per week: 5x/week Current Treatment Recommendations: Strengthening, Transfer Training, Endurance Training, ROM, Balance Training, Gait Training, Home Exercise Program, Functional Mobility Training, Stair training, Safety Education & Training Safety Devices Type of devices: Gait belt, Left in bed, Call light within reach, Nurse notified, Patient at risk for falls Restraints Initially in place: No AM-PAC Score AM-PAC Inpatient Mobility without Stair Climbing Raw Score : 16 (09/08/191533) AM-PAC Inpatient without Stair Climbing T-Scale Score : 45.54 (09/08/191533) Mobility Inpatient CMS 0-100% Score: 40.64 (09/08/191533) Mobility Inpatient without Stair CMS G-Code Modifier : CK (09/08/191533) Goals Short term goals Time Frame for Short term goals: 14 Short term goal 1: Pt to perform bed mobility independently Short term goal 2: Demonstrate functional transfers independently Short term goal 3: Ambulate 300ft w/ least restrictive AD independently Short term goal 4: Tolerate 30 minutes of therapy to demo increased endurance Patient Goals Patient goals : Did not state Therapy Time Individual Concurrent Group Co-treatment Time In 1041 Time Out 1047 Minutes 6 Yuni Winter PT * Yaneth Coe, DO - 09/08/2019 7:41 AM EDT Trauma, Emergency and Critical Surgical Services PROGRESS NOTE PATIENT NAME: Lorenzo Amato DATE: 09/08/2019 PRIMARY CARE PHYSICIAN: Lion Carlson MD HD: # 4 ASSESSMENT Patient Active Problem List Diagnosis Multiple sclerosis (HCC) CAD (coronary artery disease) Iron deficiency anemia NABOR (obstructive sleep apnea) Mixed hyperlipidemia 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) Benign essential HTN Vitamin D deficiency GERD (gastroesophageal reflux disease) Pulmonary embolism (HCC) 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 Carcinoid tumor of stomach Liver metastases (HCC) 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) DVT of lower extremity, bilateral (HCC) Generalized anxiety disorder Morbid obesity due to excess calories (HCC) Gastric carcinoma (HCC) CKD (chronic kidney disease) stage 3, GFR 30-59 ml/min (HCC) Weak urinary stream Acquired buried penis Right sided numbness History of pulmonary embolus (PE) Hematoma Subcutaneous hematoma Acute blood loss anemia REJI (acute kidney injury) (HCC) Acute retention of urine Patient is a 49 y/o male with L upper back hematoma 2/2 lovenox with continued drop in hgb requiring 1u PRBC today - patient is asymptomatic and feels like the hematoma is actually getting smaller in size. Continued drop in hgb is a slow down trend, it does not appear he is actively bleeding. MEDICAL DECISION MAKING AND PLAN 1. hgb stable x3 checks. Would recommend changing to daily checks unless patient becomes symptomatic 2. No acute surgical intervention needed 1. If patient does not respond to transfusions or has any HD changes, recommend CT with IV contrastfollowed by IR consult for possible embolization 2. General surgery to sign off. Please call with any questions of concerns. SUBJECTIVE Patient seen and examined. No acute events overnight. Denies any cp, sob, dizziness, or palpitations. The pain to his L upper back is improving. OBJECTIVE VITALS: Temp: Temp: 98.8 F (37.1 C)Temp Av.4 F (36.9 C) Min: 98.2 F (36.8 C) Max: 98.8 F (37.1C) BP Systolic (24hrs), Av , Min:114 , Max:146 Diastolic (24hrs), Av, Min:67, Max:78 Pulse Pulse Av.4 Min: 79 Max: 122 Resp Resp Av.6 Min: 16 Max: 22 Pulse ox SpO2 Av.4 % Min: 98 % Max: 100 % GENERAL: alert, no distress NEURO: no focal deficit HEENT: NCAT, oral mucosa moist LUNGS: resp even and unlabored HEART: normal rate and regular rhythm ABDOMEN: soft, ND, NT Back: L upper back hematoma softening, no enlargement noted EXTERMITY: no edema and no cyanosis I/O last 3 completed shifts: In: 752.5 [P.O.:300; I.V.:10; Blood:442.5] Out: - Drain/tube output: In: 310 [P.O.:300; I.V.:10] Out: - LAB: CBC: Recent Labs 09/06/19 0506 09/07/19 0449 09/07/19 1625 09/08/19 0046 09/08/19 0615 WBC 12.0* -- 10.0 -- -- -- HGB 7.3* < > 6.9* 7.6* 7.7* 7.6* HCT 24.2* < > 23.2* 25.8* 25.1* 25.4* MCV 90.3 -- 90.6 -- -- -- PLT 287 -- 291 -- -- -- < > = values in this interval not displayed. BMP: Recent Labs 09/05/19 1224 09/06/19 0506 09/07/19 0449 NA 133* 135 137 K 4.8 4.4 4.8 CL 98 101 103 CO2 24 22 23 BUN 30* 28* 24* CREATININE 2.29* 1.87* 1.82* GLUCOSE 254* 173* 163* COAGS: No results for input(s): APTT, PROT, INR in the last 72 hours. RADIOLOGY: No new images Yaneth Coe DO 09/08/19, 7:41 AM * Stacy Vitale MD - 09/08/2019 7:29 AM EDT [facility] IN-PATIENT SERVICE [facility] Progress Note 09/08/2019 7:29 AM Name: Lorenzo Amato Acct: [id number] Room: 0449/0449-01 IP Day: 4 Admit Date: 09/04/2019 2:54 AM PCP: Lion Carlson MD Code Status: Full Code Subjective: C/C: Chief Complaint Patient presents with Trauma tx from iona, L4 fracture, Interval History Status: worsened Patient feels better this AM. Lying in bed comfortably with at bedside. Hgb stable post transfusion yesterday. Per Surgery, no concern for further bleed. Patient requesting Eliquis on discharge pending insurance coverage. Paged General surgery to determine timing of resumption of AC. Likely today. Brief History: Per my associate: This is a 49-year-old white male who is on chronic anticoagulation with subcutaneous Lovenox that presents with left scapular pain and found to have subcutaneous hematoma. He is admitted for furthermanagement and serial H&H monitoring. His pain is better controlled with current oral medications. He denies any other acute complaints. He denies any injury. He does have chronic kidney disease and has had recent weight loss without adjustment of his Lovenox dosing. He has had evidence of urinary retention and acute kidney injury. Bill catheter has been placed. IV fluids initiated with improvement in his renal function. Cozaar and Lasix have been held. Review of Systems: Constitutional: negative for chills, fevers, sweats Respiratory: negative for cough, dyspnea on exertion, hemoptysis, shortness of breath, wheezing Cardiovascular: negative for chest pain, chest pressure/discomfort, lower extremity edema, palpitations Gastrointestinal: negative for abdominal pain, constipation, diarrhea, nausea, vomiting Musculoskeletal: Back/flank pain, improving Neurological: ++ lightheadedness with ambulation Medications: Allergies: Allergies Allergen Reactions Toradol [Ketorolac Tromethamine] Other (See Comments) Pt went into kidney failure Lisinopril Other (See Comments) Cough Current Meds: Scheduled Meds: tamsulosin 0.4 mg Oral Daily insulin glargine 100 Units Subcutaneous QAM fentanNYL 50 mcg Intravenous Once sodium chloride flush 10 mL Intravenous 2 times per day insulin lispro 0-12 Units Subcutaneous TID WC insulin lispro 0-6 Units Subcutaneous Nightly atorvastatin 80 mg Oral Nightly busPIRone 15 mg Oral TID DULoxetine 60 mg Oral Daily [Held by provider] furosemide 20 mg Oral Q48H hydrALAZINE 75 mg Oral BID [Held by provider] losartan 25 mg Oral BID metoprolol 100 mg Oral BID pantoprazole 40 mg Oral QAM AC vitamin D 50,000 Units Oral Weekly influenza virus vaccine 0.5 mL Intramuscular Once Continuous Infusions: dextrose PRN Meds: senna, magnesium hydroxide, acetaminophen, nicotine, ondansetron, polyethylene glycol, sodium chloride flush, glucose, dextrose, glucagon (rDNA), dextrose, HYDROcodone 5 mg - acetaminophen OR HYDROcodone 5 mg - acetaminophen, meclizine, morphine, LORazepam Data: Past Medical History: has a past medical history of Anemia, Arthritis, Depression, DVT (deep venousthrombosis) (HCC), GI bleed, [place] filter in place, Hypercholesteremia, Hypertension, Liver metastases (HCC), CO (myocardial infarction) (HCC), MS (multiple sclerosis) (HCC), Neuroendocrine tumor, PE (pulmonary embolism), Type II or unspecified type diabetes mellitus without mention of complication, not stated as uncontrolled, Unspecified sleep apnea, and Vitamin D deficiency. Social History: reports that he has never smoked. He has quit using smokeless tobacco. His smokeless tobacco use included chew. He reports that he does not drink alcohol or use drugs. Family History: Family History Problem Relation Age of Onset Cancer Mother ovarian Heart Disease Father Vitals: BP 139/77 Pulse 79 Temp 98.8 F (37.1 C) (Oral) Resp 16 Ht 5' 9 (1.753 m) Wt 296 lb (134.3 kg) SpO2 98% BMI 43.71 kg/m Temp (24hrs), Av.4 F (36.9 C), Min:98.2 F (36.8 C), Max:98.8 F (37.1 C) Recent Labs 09/07/19 0726 09/07/19 1112 09/07/19 1600 09/07/19 2041 POCGLU 155* 253* 197* 248* I/O (24Hr): Intake/Output Summary (Last 24 hours) at 09/08/2019 0729 Last data filed at 09/08/2019 0500 Gross per 24 hour Intake 752.5 ml Output Net 752.5 ml Labs: Hematology: Recent Labs 09/06/19 0506 09/07/19 0449 09/07/19 1625 09/08/19 0046 09/08/19 0615 WBC 12.0* -- 10.0 -- -- -- RBC 2.68* -- 2.56* -- -- -- HGB 7.3* < > 6.9* 7.6* 7.7* 7.6* HCT 24.2* < > 23.2* 25.8* 25.1* 25.4* MCV 90.3 -- 90.6 -- -- -- MCH 27.2 -- 27.0 -- -- -- MCHC 30.2 -- 29.7 -- -- -- RDW 16.3* -- 16.4* -- -- -- PLT 287 -- 291 -- -- -- MPV 10.3 -- 10.3 -- -- -- < > = values in this interval not displayed. Chemistry: Recent Labs 09/05/19 1224 09/06/19 0506 09/07/19 0449 NA 133* 135 137 K 4.8 4.4 4.8 CL 98 101 103 CO2 24 22 23 GLUCOSE 254* 173* 163* BUN 30* 28* 24* CREATININE 2.29* 1.87* 1.82* ANIONGAP 11 12 11 LABGLOM 30* 38* 40* GFRAA 37* 47* 48* CALCIUM 8.7 8.8 8.8 Recent Labs 09/06/19 1548 09/06/19 2114 09/07/19 0726 09/07/19 1112 09/07/19 1600 09/07/19 2041 POCGLU 222* 269* 155* 253* 197* 248* ABG: Lab Results Component Value Date FIO2 TRAUMA 09/04/2019 Lab Results Component Value Date/Time SPECIAL NOT REPORTED 10/27/2018 01:44 PM Lab Results Component Value Date/Time CULTURE (A) 10/27/2018 01:44 PM STREPTOCOCCI, BETA HEMOLYTIC GROUP B 10 to 50,000 CFU/ML Radiology: Ct Chest Wo Contrast Result Date: 09/04/2019 1. Nondisplaced fracture of the right T4 anterior inferior endplate with associated osteophyte. No further fractures of the spine. 2. Large 19+ centimeter hematoma of the posterior lateral left chestwall, deep to the musculature as above. Correlate with hemoglobin and hematocrit levels. IV contrast not utilized to assess for any active extravasation. 3. Moderate calcific coronary arterial disease. Ct Thoracic Spine Wo Contrast Result Date: 09/04/2019 1. Nondisplaced fracture of the right T4 anterior inferior endplate with associated osteophyte. No further fractures of the spine. 2. Large 19+ centimeter hematoma of the posterior lateral left chestwall, deep to the musculature as above. Correlate with hemoglobin and hematocrit levels. IV contrast not utilized to assess for any active extravasation. 3. Moderate calcific coronary arterial disease. Physical Examination: General appearance: alert, cooperative and no distress Mental Status: oriented to person, place and time and normal affect Lungs: clear to auscultation bilaterally, normal effort Heart: regular rate and rhythm, no murmur Abdomen: soft, nontender, nondistended, normal bowel sounds, no masses, hepatomegaly, splenomegaly Extremities: no edema, redness, tenderness in the calves Back: Hematoma noted Left subscapular area and flank area. 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 Worsening blood loss anemia requiring 1 U PRBCs 09/07/2019. Drop in Hgb from 12 at admission to 6 today. Surgery re-evaluated the patient and not concerned for ongoing bleed at this time. Hgb stable. Will discuss with them timing of resuming AC. Will run Eliquis script through insurance. 2. Cont to trend H&H and transfuse for Hgb < 7. 3. Continue to monitor renal function 4. Milk of mag, MiraLAX and Senokot as needed for constipation 5. Monitor and control blood pressure 6. Glycemic control, insulin scale 7. Oncology evaluation in progress 8. Likely dc tomorrow. Will observe for 12-24 hours after resuming AC. 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 Carcinoid tumor of stomach Liver metastases (HCC) 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) DVT of lower extremity, bilateral (HCC) Generalized anxiety disorder Morbid obesity due to excess calories (HCC) Gastric carcinoma (HCC) CKD (chronic kidney disease) stage 3, GFR 30-59 ml/min (HCC) Weak urinary stream Acquired buried penis Right sided numbness History of pulmonary embolus (PE) Hematoma Subcutaneous hematoma Acute blood loss anemia REJI (acute kidney injury) (HCC) Acute retention of urine Patient is a 49 y/o male with L upper back hematoma 2/2 lovenox with continued drop in hgb requiring 1u PRBC today - patient is asymptomatic and feels like the hematoma is actually getting smaller in size. Continued drop in hgb is a slow down trend, it does not appear he is actively bleeding. MEDICAL DECISION MAKING AND PLAN 1. Trend hgb 2. If patient does not respond to transfusions or has any HD changes, recommend CT with IV contrastfollowed by IR consult for possible embolization 3. Discussed in depth with patient and his , possible transfusion with FFP. They are currently refusing transfusions with FFP due to their concerns it may cause further DVT's 4. No acute surgical intervention at this time, will continue to follow closely SUBJECTIVE Patient seen and examined, no acute events. Pain is controlled. Motor has improved. He had some dizziness earlier this am, which has resolved. No chest pain, palpitations, or shortness of breath. OBJECTIVE VITALS: Temp: Temp: 98.2 F (36.8 C)Temp Av.4 F (36.9 C) Min: 98.2 F (36.8 C) Max: 98.8 F (37.1C) BP Systolic (24hrs), Av , Min:114 , Max:132 Diastolic (24hrs), Av, Min:67, Max:73 Pulse Pulse Av.6 Min: 84 Max: 122 Resp Resp Av.6 Min: 16 Max: 22 Pulse ox SpO2 Av.4 % Min: 98 % Max: 100 % GENERAL: alert, no distress. NAD NEURO: moving al extremities. No focal deficit HEENT: oral mucosa moist LUNGS: resp even and unlabored HEART: RRR ABDOMEN: soft, ND, NT BACK: L upper back hematoma is firm, mildly tender. No skin necrosis noted. EXTERMITY: without edema or cyanosis, sensation grossly intact I/O last 3 completed shifts: In: 1552.5 [P.O.:500; I.V.:610; Blood:442.5] Out: 2100 [Urine:2100] Drain/tube output: In: 1552.5 [P.O.:500; I.V.:610; Blood:442.5] Out: 1100 [Urine:1100] LAB: CBC: Recent Labs 09/05/19 0513 09/06/19 0506 09/07/19 0050 09/07/19 0449 09/07/19 1625 WBC 11.4* -- 12.0* -- -- 10.0 -- HGB 8.2* < > 7.3* < > 7.1* 6.9* 7.6* HCT 26.4* < > 24.2* < > 23.5* 23.2* 25.8* MCV 87.1 -- 90.3 -- -- 90.6 -- PLT 308 -- 287 -- -- 291 -- < > = values in this interval not displayed. BMP: Recent Labs 09/05/19 1224 09/06/19 0506 09/07/19 0449 NA 133* 135 137 K 4.8 4.4 4.8 CL 98 101 103 CO2 24 22 23 BUN 30* 28* 24* CREATININE 2.29* 1.87* 1.82* GLUCOSE 254* 173* 163* COAGS: Recent Labs 09/05/19 0513 INR 0.9 RADIOLOGY: No new images Yaneth Coe DO 09/07/19, 5:58 PM * Stacy Vitale MD - 09/07/2019 7:46 AM EDT [facility] IN-PATIENT SERVICE [facility] Progress Note 09/07/2019 7:46 AM Name: Lorenzo Amato Acct: [id number] Room: [id number] Day: 3 Admit Date: 09/04/2019 2:54 AM PCP: Lion Carlson MD Code Status: Full Code Subjective: C/C: Chief Complaint Patient presents with Trauma tx from iona, L4 fracture, Interval History Status: worsened Patient lying in bed, at bedside. Nasal pillows on. Left back/scapular pain continues. Hgb dropped to 6.9 this AM. Trend as follows: 09/03/2019 22:00 09/04/2019 09:32 09/05/2019 15:36 09/06/2019 05:06 09/07/2019 04:49 12.4 (L) 9.5 (L) 7.6 (L) 7.3 (L) 6.9 (LL) Brief History: Per my associate: This is a 49-year-old white male who is on chronic anticoagulation with subcutaneous Lovenox that presents with left scapular pain and found to have subcutaneous hematoma. He is admitted for furthermanagement and serial H&H monitoring. His pain is better controlled with current oral medications. He denies any other acute complaints. He denies any injury. He does have chronic kidney disease and has had recent weight loss without adjustment of his Lovenox dosing. He has had evidence of urinary retention and acute kidney injury. Bill catheter has been placed. IV fluids initiated with improvement in his renal function. Cozaar and Lasix have been held. Review of Systems: Constitutional: negative for chills, fevers, sweats Respiratory: negative for cough, dyspnea on exertion, hemoptysis, shortness of breath, wheezing Cardiovascular: negative for chest pain, chest pressure/discomfort, lower extremity edema, palpitations Gastrointestinal: negative for abdominal pain, constipation, diarrhea, nausea, vomiting Musculoskeletal: Worsening back pain Neurological: ++ lightheadedness with ambulation Medications: Allergies: Allergies Allergen Reactions Toradol [Ketorolac Tromethamine] Other (See Comments) Pt went into kidney failure Lisinopril Other (See Comments) Cough Current Meds: Scheduled Meds: sodium chloride 250 mL Intravenous Once tamsulosin 0.4 mg Oral Daily insulin glargine 100 Units Subcutaneous QAM fentanNYL 50 mcg Intravenous Once sodium chloride flush 10 mL Intravenous 2 times per day insulin lispro 0-12 Units Subcutaneous TID WC insulin lispro 0-6 Units Subcutaneous Nightly atorvastatin 80 mg Oral Nightly busPIRone 15 mg Oral TID DULoxetine 60 mg Oral Daily [Held by provider] furosemide 20 mg Oral Q48H hydrALAZINE 75 mg Oral BID [Held by provider] losartan 25 mg Oral BID metoprolol 100 mg Oral BID pantoprazole 40 mg Oral QAM AC vitamin D 50,000 Units Oral Weekly influenza virus vaccine 0.5 mL Intramuscular Once Continuous Infusions: sodium chloride 75 mL/hr at 09/06/19 0508 dextrose PRN Meds: senna, magnesium hydroxide, acetaminophen, nicotine, ondansetron, polyethylene glycol, sodium chloride flush, glucose, dextrose, glucagon (rDNA), dextrose, HYDROcodone 5 mg - acetaminophen OR HYDROcodone 5 mg - acetaminophen, meclizine, morphine, LORazepam Data: Past Medical History: has a past medical history of Anemia, Arthritis, Depression, DVT (deep venousthrombosis) (HCC), GI bleed, [place] filter in place, Hypercholesteremia, Hypertension, Liver metastases (HCC), CO (myocardial infarction) (HCC), MS (multiple sclerosis) (HCC), Neuroendocrine tumor, PE (pulmonary embolism), Type II or unspecified type diabetes mellitus without mention of complication, not stated as uncontrolled, Unspecified sleep apnea, and Vitamin D deficiency. Social History: reports that he has never smoked. He has quit using smokeless tobacco. His smokeless tobacco use included chew. He reports that he does not drink alcohol or use drugs. Family History: Family History Problem Relation Age of Onset Cancer Mother ovarian Heart Disease Father Vitals: BP 122/69 Pulse 84 Temp 98.8 F (37.1 C) (Oral) Resp 16 Ht 5' 9 (1.753 m) Wt 296 lb (134.3 kg) SpO2 99% BMI 43.71 kg/m Temp (24hrs), Av.4 F (36.9 C), Min:98.2 F (36.8 C), Max:98.8 F (37.1 C) Recent Labs 09/06/19 0721 09/06/19 1131 09/06/19 1548 09/07/19 0726 POCGLU 171* 239* 222* 155* I/O (24Hr): Intake/Output Summary (Last 24 hours) at 09/07/2019 0746 Last data filed at 09/07/2019 0500 Gross per 24 hour Intake 1110 ml Output 2100 ml Net -990 ml Labs: Hematology: Recent Labs 09/05/19 0513 09/06/19 0506 09/06/19 1631 09/07/19 0050 09/07/19 0449 WBC 11.4* -- 12.0* -- -- 10.0 RBC 3.03* -- 2.68* -- -- 2.56* HGB 8.2* < > 7.3* 7.2* 7.1* 6.9* HCT 26.4* < > 24.2* 24.5* 23.5* 23.2* MCV 87.1 -- 90.3 -- -- 90.6 MCH 27.1 -- 27.2 -- -- 27.0 MCHC 31.1 -- 30.2 -- -- 29.7 RDW 16.1* -- 16.3* -- -- 16.4* PLT 308 -- 287 -- -- 291 MPV 10.2 -- 10.3 -- -- 10.3 INR 0.9 -- -- -- -- -- < > = values in this interval not displayed. Chemistry: Recent Labs 09/05/19 1224 09/06/19 0506 09/07/19 0449 NA 133* 135 137 K 4.8 4.4 4.8 CL 98 101 103 CO2 24 22 23 GLUCOSE 254* 173* 163* BUN 30* 28* 24* CREATININE 2.29* 1.87* 1.82* ANIONGAP 11 12 11 LABGLOM 30* 38* 40* GFRAA 37* 47* 48* CALCIUM 8.7 8.8 8.8 Recent Labs 09/05/19 1650 09/05/19 2126 09/06/19 0721 09/06/19 1131 09/06/19 1548 09/07/19 0726 POCGLU 254* 205* 171* 239* 222* 155* ABG: Lab Results Component Value Date FIO2 TRAUMA 09/04/2019 Lab Results Component Value Date/Time SPECIAL NOT REPORTED 10/27/2018 01:44 PM Lab Results Component Value Date/Time CULTURE (A) 10/27/2018 01:44 PM STREPTOCOCCI, BETA HEMOLYTIC GROUP B 10 to 50,000 CFU/ML Radiology: Ct Chest Wo Contrast Result Date: 09/04/2019 1. Nondisplaced fracture of the right T4 anterior inferior endplate with associated osteophyte. No further fractures of the spine. 2. Large 19+ centimeter hematoma of the posterior lateral left chestwall, deep to the musculature as above. Correlate with hemoglobin and hematocrit levels. IV contrast not utilized to assess for any active extravasation. 3. Moderate calcific coronary arterial disease. Ct Thoracic Spine Wo Contrast Result Date: 09/04/2019 1. Nondisplaced fracture of the right T4 anterior inferior endplate with associated osteophyte. No further fractures of the spine. 2. Large 19+ centimeter hematoma of the posterior lateral left chestwall, deep to the musculature as above. Correlate with hemoglobin and hematocrit levels. IV contrast not utilized to assess for any active extravasation. 3. Moderate calcific coronary arterial disease. Physical Examination: General appearance: alert, cooperative and no distress Mental Status: oriented to person, place and time and normal affect Lungs: clear to auscultation bilaterally, normal effort Heart: regular rate and rhythm, no murmur Abdomen: soft, nontender, nondistended, normal bowel sounds, no masses, hepatomegaly, splenomegaly Extremities: no edema, redness, tenderness in the calves Back: Hematoma noted Left subscapular area and flank area. 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 Worsening blood loss anemia requiring 1 U PRBCs today. Drop in Hgb from 12 at admission to 6 today, concern for continued bleed at site of hematoma. Surgery re-consulted. May need repeat imaging. 2. Cont to trend H&H and transfuse for Hgb < 7. 3. Continue to monitor renal function 4. Milk of mag, MiraLAX and Senokot as needed for constipation 5. Monitor and control blood pressure 6. Glycemic control, insulin scale 7. Oncology evaluation in progress 8. Resume anticoagulation when appropriate due to history recurrent DVT/PE. Will need dose adjustment of his Lovenox for his renal function as well as recent weight loss or initiation of direct acting anticoagulant Stacy Vitale MD 09/07/2019 7:46 AM * Armani Figueroa MD - 09/07/2019 7:19 AM EDT Today's Date: 09/07/2019 Patient Name: Lorenzo Amato Date of admission: 09/04/2019 2:54 AM Patient's age: 49 y.o., 1970 Admission Dx: Subcutaneous hematoma [T14.8XXA] Reason for Consult: management recommendations Requesting Physician: Cheng Vicente DO CHIEF COMPLAINT: Subcutaneous hematoma. Chest wall pain History Obtained From: patient, spouse, electronic medical record History history: Patient seen and examined. Labs and vitals reviewed. Pain is controlled H&H continues to drop Patient now started to bruise around the back and the chest wall on the left side. Continues to be off anticoagulation. HISTORY OF PRESENT ILLNESS: The patient is a 49 y.o. male who is admitted to the hospital for chief complaints of swelling of left chest wall and worsening of pain. 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 Patient has been on octreotide for a few years with symptoms well controlled. Last scan done couple months ago did not show any evidence of disease progression. Patient also has history of recurrent venous thromboembolism. He has history of IVC filter which isoccluded with formation of collaterals. Patient has been on Lovenox and developed subcutaneous hematomas something at the site of the Lovenox shot and sometimes spontaneous subcutaneous hematomas. Patient started noticing pain over his back about 5 days ago which gradually worsened. According the patient she started noticing a bump on the back on the left side yesterday which gradually progressed. CT chest shows large subcutaneous hematoma on the left side. Patient hemoglobin also dropped.CT scan with contrast could not be performed due to CKD. Patient is very reluctant to try direct oral anticoagulants. Past Medical History: has a past medical history of Anemia, Arthritis, Depression, DVT (deep venousthrombosis) (HCC), GI bleed, [place] filter in place, Hypercholesteremia, Hypertension, Liver metastases (HCC), CO (myocardial infarction) (HCC), MS (multiple sclerosis) (HCC), Neuroendocrine tumor, PE (pulmonary embolism), Type II or unspecified type diabetes mellitus without mention of complication, not stated as uncontrolled, Unspecified sleep apnea, and Vitamin D deficiency. Past Surgical History: has a past surgical history that includes Tonsillectomy; Appendectomy; Percutaneous Transluminal Coronary Angio; Colonoscopy; Vasectomy (18 years ago); Thyroid surgery (05/11/13); Coronary angioplasty with stent (2004); and Upper gastrointestinal endoscopy (10/14/2016). Medications: Prior to Admission medications Medication Sig Start Date End Date Taking? Authorizing Provider busPIRone (BUSPAR) 15 MG tablet TAKE ONE TABLET BY MOUTH THREE TIMES A DAY 08/17/19 Lion Carlson MD hydrALAZINE (APRESOLINE) 50 MG tablet TAKE 1 1/2 TABLETS BY MOUTH TWICE DAILY 06/16/19 Lion Carlson MD enoxaparin (LOVENOX) 150 MG/ML injection INJECT 150 MG SUBCUTANEOUSLY TWO TIMES A DAY 06/12/19 MD Damaris metoprolol (LOPRESSOR) 100 MG tablet TAKE 1 TABLET BY MOUTH 2 TIMES A DAY 06/09/19 Lion Carlson MD atorvastatin (LIPITOR) 80 MG tablet TAKE 1 TABLET BY MOUTH ONE TIME DAILY 05/11/19 Lion Carlson MD omeprazole (PRILOSEC) 40 MG delayed release capsule TAKE 1 CAPSULE BY MOUTH 2 TIMES A DAY 04/14/19 Lion Carlson MD SANDOSTATIN LAR DEPOT 30 MG injection INJECT 30 MG INTO THE MUSCLE EVERY 28 DAYS 04/11/19 Trevor Serna MD DULoxetine (CYMBALTA) 60 MG extended release capsule TAKE 1 CAPSULE BY MOUTH ONE TIME A DAY 04/11/19Lion Carlson MD furosemide (LASIX) 20 MG tablet Take 1 tablet by mouth (20 mg) every other day Patient taking differently: See Admin Instructions As needed wt gain swelling 03/06/19 Lion Carlson MD insulin lispro (HUMALOG KWIKPEN) 100 UNIT/ML pen Inject 5 Units into the skin 3 times daily (beforemeals) 03/06/19 Lion Carlson MD Insulin Pen Needle (B-D ULTRAFINE III SHORT PEN) 31G X 8 MM MISC Use as directed with insulin pen needles, up to 5x/day 03/06/19 Lion Carlson MD vitamin D (ERGOCALCIFEROL) 12574 units CAPS capsule Take 1 capsule by mouth once a week 03/06/19 Lion Carlson MD Blood Glucose Monitoring Suppl (ADINCONGayathri AUTOCODE BLOOD GLUCOSE) w/Device KIT Use as directed to test up to 4 times daily 03/06/19 MD JUDITH Patel LANCETS 28G MISC Use as directed to test up to 4 times daily 03/06/19 Lion Carlson MD blood glucose test strips (ADINCONGayathri NO CODING BLOOD GLUC) strip 1 each by In Vitro route 4 times daily As needed. 03/06/19 Lion Carlson MD losartan (COZAAR) 25 MG tablet Take 25 mg by mouth 2 times daily Historical Provider, insulin glargine (TOUJEO MAX SOLOSTAR) 300 UNIT/ML injection pen Inject 130 Units into the skin 2 times daily 08/02/18 Lion Carlsno MD meclizine (ANTIVERT) 25 MG tablet Take 1 tablet by mouth 3 times daily as needed for Dizziness 02/25/18 Lion Carlson MD Current Facility-Administered Medications Medication Dose Route Frequency Provider Last Rate Last Dose 0.9 % sodium chloride bolus 250 mL Intravenous Once Armani Figueroa MD tamsulosin (FLOMAX) capsule 0.4 mg 0.4 mg Oral Daily William Hassan MD 0.4 mg at 09/06/19 0851 senna (SENOKOT) tablet 8.6 mg 1 tablet Oral Nightly PRN Cheng Vicente, DO magnesium hydroxide (MILK OF MAGNESIA) 400 MG/5ML suspension 30 mL 30 mL Oral Daily PRN Cheng Vicente, DO 0.9 % sodium chloride infusion Intravenous Continuous Cheng Vicente, DO 75 mL/hr at 09/06/19 0508 insulin glargine (LANTUS) injection vial 100 Units 100 Units Subcutaneous QABria Preciado APRN - CLAIMS ADJUSTOR 100 Units at 09/06/19 0853 fentaNYL (SUBLIMAZE) injection 50 mcg 50 mcg Intravenous Once Lexa Bonilla, DO acetaminophen (TYLENOL) tablet 650 mg 650 mg Oral Q4H PRN WEST Olivares CNP nicotine (NICODERM CQ) 21 MG/24HR 1 patch 1 patch Transdermal Daily PRN WEST Olivares CNP ondansetron (ZOFRAN) injection 4 mg 4 mg Intravenous Q6H PRN WEST Olivares CNP 4 mg at 09/04/19 1511 polyethylene glycol (GLYCOLAX) packet 17 g 17 g Oral Daily PRN WEST Olivares CNP 17 g at 09/06/19 1011 sodium chloride flush 0.9 % injection 10 mL 10 mL Intravenous 2 times per day WEST Olivares 10 mL at 09/06/192116 sodium chloride flush 0.9 % injection 10 mL 10 mL Intravenous PRN WEST Olivares CNP 10 mL at 09/04/19 2148 insulin lispro (HUMALOG) injection vial 0-12 Units 0-12 Units Subcutaneous TID WC Cheng Vicente, DO 4 Units at 09/06/19 172 insulin lispro (HUMALOG) injection vial 0-6 Units 0-6 Units Subcutaneous Nightly Cheng Wilsonp, DO 2 Units at 09/06/192117 glucose (GLUTOSE) 40 % oral gel 15 g 15 g Oral PRN Cheng Wilsonp, DO dextrose 50 % IV solution 12.5 g Intravenous PRN Cheng Wilsonp, DO glucagon (rDNA) injection 1 mg 1 mg Intramuscular PRN Cheng Vicente, DO dextrose 5 % solution 100 mL/hr Intravenous PRN Cheng Wilsonp, DO HYDROcodone-acetaminophen (NORCO) 5-325 MG per tablet 1 tablet 1 tablet Oral Q4H PRN Cheng Wilsonp, DO 1 tablet at 09/06/19 0508 Or HYDROcodone-acetaminophen (NORCO) 5-325 MG per tablet 2 tablet 2 tablet Oral Q4H PRN Cheng Wilsonp, DO 2 tablet at 09/06/19 194 atorvastatin (LIPITOR) tablet 80 mg 80 mg Oral Nightly Cheng Wilsonp, DO 80 mg at 09/06/192115 busPIRone (BUSPAR) tablet 15 mg 15 mg Oral TID Cheng Patel Orlop, DO 15 mg at 09/06/192115 DULoxetine (CYMBALTA) extended release capsule 60 mg 60 mg Oral Daily Cheng J Orlop, DO 60 mg at 09/06/19 0851 [Held by provider] furosemide (LASIX) tablet 20 mg 20 mg Oral Q48H Cheng J Orlop, DO 20 mg at 09/04/19 1254 hydrALAZINE (APRESOLINE) tablet 75 mg 75 mg Oral BID Cheng J Orlop, DO 75 mg at 09/06/192115 [Held by provider] losartan (COZAAR) tablet 25 mg 25 mg Oral BID Cheng J Orlop, DO 25 mg at 09/04/19 125 meclizine (ANTIVERT) tablet 25 mg 25 mg Oral TID PRN Cheng Patel Orlop, DO metoprolol tartrate (LOPRESSOR) tablet 100 mg 100 mg Oral BID Cheng J Orlop, DO 100 mg at 09/06/192115 pantoprazole (PROTONIX) tablet 40 mg 40 mg Oral QAM AC Cheng J Orlop, DO 40 mg at 09/06/19 0509 vitamin D (ERGOCALCIFEROL) capsule 50,000 Units 50,000 Units Oral Weekly Cheng J Orlop, DO 50,000Units at 09/04/19 1252 morphine (PF) injection 2 mg 2 mg Intravenous Q4H PRN Cheng Patel Orlop, DO 2 mg at 09/04/19 193 influenza quadrivalent split vaccine (FLUZONE;FLUARIX;FLULAVAL;AFLURIA) injection 0.5 mL 0.5 mL Intramuscular Once Elvia Obrien, RN LORazepam (ATIVAN) tablet 0.5 mg 0.5 mg Oral Q6H PRN Tequila Mota 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 He has quit using smokeless tobacco. His smokeless tobacco use included chew. He reports that he does not drink alcohol or use drugs. Family History: family history includes Cancer in his mother; Heart Disease in his father. REVIEW OF SYSTEMS: Constitutional: No fever or chills. No night sweats, no weight loss Eyes: No eye discharge, double vision, or eye pain HEENT: negative for sore mouth, sore throat, hoarseness and voice change Respiratory: negative for cough , sputum, dyspnea, wheezing, hemoptysis, chest pain Cardiovascular: negative for chest pain, dyspnea, palpitations, orthopnea, PND Gastrointestinal: negative for nausea, vomiting, diarrhea, constipation, abdominal pain, Dysphagia,hematemesis and hematochezia Genitourinary: negative for frequency, dysuria, nocturia, urinary incontinence, and hematuria Integument: negative for rash, skin lesions, bruises. Hematologic/Lymphatic: negative for easy bruising, bleeding, lymphadenopathy, or petechiae Endocrine: negative for heat or cold intolerance,weight changes, change in bowel habits and hair loss Musculoskeletal: Positive for back pain Neurological: negative for headaches, dizziness, seizures, weakness, numbness PHYSICAL EXAM: BP 122/69 Pulse 84 Temp 98.8 F (37.1 C) (Oral) Resp 16 Ht 5' 9 (1.753 m) Wt 296 lb (134.3 kg) SpO2 99% BMI 43.71 kg/m Temp (24hrs), Av.3 F (36.8 C), Min:97.8 F (36.6 C), Max:98.8 F (37.1 C) General appearance - well appearing, no in pain or distress Mental status - alert and cooperative Eyes - pupils equal and reactive, extraocular eye movements intact Ears - bilateral TM's and external ear canals normal Mouth - mucous membranes moist, pharynx normal without lesions Neck - supple, no significant adenopathy Lymphatics - no palpable lymphadenopathy, no hepatosplenomegaly Chest - clear to auscultation, large tender firm bump noted on the back, left side heart - normal rate, regular rhythm, normal S1, S2, no murmurs Abdomen - soft, nontender, nondistended, no masses or organomegaly Neurological - alert, oriented, normal speech, no focal findings or movement disorder noted Musculoskeletal - no joint tenderness, deformity or swelling Extremities - peripheral pulses normal, no pedal edema, no clubbing or cyanosis Skin - normal coloration and turgor, no rashes, no suspicious skin lesions noted , DATA: Labs: CBC: Recent Labs 09/06/19 0506 09/07/19 0050 09/07/199 WBC 12.0* -- -- 10.0 HGB 7.3* < > 7.1* 6.9* HCT 24.2* < > 23.5* 23.2* PLT 287 -- -- 291 < > = values in this interval not displayed. BMP: Recent Labs 09/06/19 0506 09/07/199 NA 135 137 K 4.4 4.8 CO2 22 23 BUN 28* 24* CREATININE 1.87* 1.82* LABGLOM 38* 40* GLUCOSE 173* 163* PT/INR: Recent Labs 09/05/19 0513 PROTIME 10.1 INR 0.9 APTT: No results for input(s): APTT in the last 72 hours. LIVER PROFILE: No results for input(s): AST, ALT, LABALBU in the last 72 hours. Results for orders placed or performed during the hospital encounter of 09/04/19 TROP/MYOGLOBIN Result Value Ref Range Troponin, High Sensitivity 20 0 - 22 ng/L Troponin T NOT REPORTED <0.03 ng/mL Troponin Interp NOT REPORTED Myoglobin 89 (H) 28 - 72 ng/mL Trauma Panel Result Value Ref Range WBC 15.3 (H) 3.5 - 11.3 k/uL RBC 4.18 (L) 4.21 - 5.77 m/uL Hemoglobin 11.4 (L) 13.0 - 17.0 g/dL Hematocrit 35.9 (L) 40.7 - 50.3 % MCV 85.9 82.6 - 102.9 fL MCH 27.3 25.2 - 33.5 pg MCHC 31.8 28.4 - 34.8 g/dL RDW 15.4 (H) 11.8 - 14.4 % Platelets 304 138 - 453 k/uL MPV 10.4 8.1 - 13.5 fL NRBC Automated 0.0 0.0 per 100 WBC Sodium 130 (L) 135 - 144 mmol/L Potassium 4.4 3.7 - 5.3 mmol/L Chloride 96 (L) 98 - 107 mmol/L CO2 21 20 - 31 mmol/L Anion Gap 13 9 - 17 mmol/L Glucose 224 (H) 70 - 99 mg/dL pH, Marek 7.359 7.320 - 7.420 pCO2, Marek 42.8 39 - 55 pO2, Marek 38.3 30 - 50 HCO3, Venous 23.5 (L) 24 - 30 mmol/L Positive Base Excess, Marek NOT REPORTED 0.0 - 2.0 mmol/L Negative Base Excess, Marek 1.4 0.0 - 2.0 mmol/L O2 Sat, Marek 68.3 60.0 - 85.0 % Total Hb NOT REPORTED 12.0 - 16.0 g/dl Oxyhemoglobin NOT REPORTED 95.0 - 98.0 % Carboxyhemoglobin 1.4 0 - 5 % Methemoglobin NOT REPORTED 0.0 - 1.5 % Pt Temp 37.0 pH, Marek, Temp Adj NOT REPORTED 7.320 - 7.420 pCO2, Marek, Temp Adj NOT REPORTED 39 - 55 mmHg pO2, Marek, Temp Adj NOT REPORTED 30 - 50 mmHg O2 Device/Flow/% NOT REPORTED Respiratory Rate NOT REPORTED Roman Test NOT REPORTED Sample Site NOT REPORTED Pt. Position NOT REPORTED Mode NOT REPORTED Set Rate NOT REPORTED Total Rate NOT REPORTED VT NOT REPORTED FIO2 TRAUMA Peep/Cpap NOT REPORTED PSV NOT REPORTED Text for Respiratory NOT REPORTED NOTIFICATION NOT REPORTED NOTIFICATION TIME NOT REPORTED Blood Bank Specimen BILL FOR SERVICES PERFORMED hCG Qual PT IS MALE NEGATIVE BUN 16 6 - 20 mg/dL CREATININE 1.64 (H) 0.70 - 1.20 mg/dL GFR Non- 45 (L) >60 mL/min GFR 54 (L) >60 mL/min GFR Comment GFR Staging NOT REPORTED Ethanol <10 <10 mg/dL Ethanol percent <0.010 <0.010 % Protime 10.2 9.0 - 12.0 sec INR 1.0 PTT 28.5 20.5 - 30.5 sec Urine Drug Screen Result Value Ref Range Amphetamine Screen, Ur NEGATIVE NEGATIVE Barbiturate Screen, Ur NEGATIVE NEGATIVE Benzodiazepine Screen, Urine NEGATIVE NEGATIVE Cocaine Metabolite, Urine NEGATIVE NEGATIVE Methadone Screen, Urine NEGATIVE NEGATIVE Opiates, Urine POSITIVE (A) NEGATIVE Phencyclidine, Urine NEGATIVE NEGATIVE Propoxyphene, Urine NOT REPORTED NEGATIVE Cannabinoid Scrn, Ur NEGATIVE NEGATIVE Oxycodone Screen, Ur NEGATIVE NEGATIVE Methamphetamine, Urine NOT REPORTED NEGATIVE Tricyclic Antidepressants, Urine NOT REPORTED NEGATIVE MDMA, Urine NOT REPORTED NEGATIVE Buprenorphine Urine NOT REPORTED NEGATIVE Test Information Assay provides medical screening only. The absence of expected drug(s) and/or metabolite(s) may indicate diluted or adulterated urine, limitations of testing or timing of collection. Urinalysis Result Value Ref Range Color, UA YELLOW YELLOW Turbidity UA CLEAR CLEAR Glucose, Ur 2+ (A) NEGATIVE Bilirubin Urine NEGATIVE NEGATIVE Ketones, Urine TRACE (A) NEGATIVE Specific [place], UA 1.035 (H) 1.005 - 1.030 Urine Hgb NEGATIVE NEGATIVE pH, UA 5.5 5.0 - 8.0 Protein, UA 4+ (A) NEGATIVE Urobilinogen, Urine Normal Normal Nitrite, Urine NEGATIVE NEGATIVE Leukocyte Esterase, Urine NEGATIVE NEGATIVE Urinalysis Comments NOT REPORTED Hemoglobin and Hematocrit, Blood Result Value Ref Range Hemoglobin 9.5 (L) 13.0 - 17.0 g/dL Hematocrit 30.0 (L) 40.7 - 50.3 % Platelet function test Result Value Ref Range DARIEL/EPI Clos Time 87 85 - 172 sec Collagen Adenosine-5'-Diphosphate (Adp) Time 87 67 - 112 sec Platelet Function Interp Normal platelet function. If patient clinical history/Physical examination is positive for a bleeding diathesis, recommend repeat testing and/or additional primary hemostasis and/or coagulation studies. Basic Metabolic Panel w/ Reflex to MG Result Value Ref Range Glucose 242 (H) 70 - 99 mg/dL BUN 29 (H) 6 - 20 mg/dL CREATININE 2.42 (H) 0.70 - 1.20 mg/dL Bun/Cre Ratio NOT REPORTED 9 - 20 Calcium 8.6 8.6 - 10.4 mg/dL Sodium 133 (L) 135 - 144 mmol/L Potassium 4.3 3.7 - 5.3 mmol/L Chloride 98 98 - 107 mmol/L CO2 22 20 - 31 mmol/L Anion Gap 13 9 - 17 mmol/L GFR Non- 29 (L) >60 mL/min GFR 35 (L) >60 mL/min GFR Comment GFR Staging NOT REPORTED CBC Result Value Ref Range WBC 11.4 (H) 3.5 - 11.3 k/uL RBC 3.03 (L) 4.21 - 5.77 m/uL Hemoglobin 8.2 (L) 13.0 - 17.0 g/dL Hematocrit 26.4 (L) 40.7 - 50.3 % MCV 87.1 82.6 - 102.9 fL MCH 27.1 25.2 - 33.5 pg MCHC 31.1 28.4 - 34.8 g/dL RDW 16.1 (H) 11.8 - 14.4 % Platelets 308 138 - 453 k/uL MPV 10.2 8.1 - 13.5 fL NRBC Automated 0.0 0.0 per 100 WBC Protime-INR Result Value Ref Range Protime 10.1 9.0 - 12.0 sec INR 0.9 Hemoglobin and Hematocrit, Blood Result Value Ref Range Hemoglobin 10.1 (L) 13.0 - 17.0 g/dL Hematocrit 31.8 (L) 40.7 - 50.3 % Hemoglobin and Hematocrit, Blood Result Value Ref Range Hemoglobin 8.8 (L) 13.0 - 17.0 g/dL Hematocrit 28.6 (L) 40.7 - 50.3 % Microscopic Urinalysis Result Value Ref Range - WBC, UA 2 TO 5 0 - 5 /HPF RBC, UA 2 TO 5 0 - 2 /HPF Casts UA 10 TO 20 0 - 2 /LPF Casts UA HYALINE 0 - 2 /LPF Crystals UA NOT REPORTED None /HPF Epithelial Cells UA 2 TO 5 0 - 5 /HPF Renal Epithelial, Urine NOT REPORTED 0 /HPF Bacteria, UA FEW (A) None Mucus, UA 2+ (A) None Trichomonas, UA NOT REPORTED None Amorphous, UA NOT REPORTED None Other Observations UA NOT REPORTED NOT REQ. Yeast, UA NOT REPORTED None Hemoglobin and Hematocrit, Blood Result Value Ref Range Hemoglobin 7.6 (L) 13.0 - 17.0 g/dL Hematocrit 24.6 (L) 40.7 - 50.3 % Basic Metabolic Panel w/ Reflex to MG Result Value Ref Range Glucose 254 (H) 70 - 99 mg/dL BUN 30 (H) 6 - 20 mg/dL CREATININE 2.29 (H) 0.70 - 1.20 mg/dL Bun/Cre Ratio NOT REPORTED 9 - 20 Calcium 8.7 8.6 - 10.4 mg/dL Sodium 133 (L) 135 - 144 mmol/L Potassium 4.8 3.7 - 5.3 mmol/L Chloride 98 98 - 107 mmol/L CO2 24 20 - 31 mmol/L Anion Gap 11 9 - 17 mmol/L GFR Non- 30 (L) >60 mL/min GFR 37 (L) >60 mL/min GFR Comment GFR Staging NOT REPORTED Iron and TIBC Result Value Ref Range Iron 36 (L) 59 - 158 ug/dL TIBC 215 (L) 250 - 450 ug/dL Iron Saturation 17 (L) 20 - 55 % UIBC 179 112 - 347 ug/dL Ferritin Result Value Ref Range Ferritin 62 30 - 400 ug/L Hemoglobin and Hematocrit, Blood Result Value Ref Range Hemoglobin 7.7 (L) 13.0 - 17.0 g/dL Hematocrit 25.3 (L) 40.7 - 50.3 % Basic Metabolic Panel w/ Reflex to MG Result Value Ref Range Glucose 173 (H) 70 - 99 mg/dL BUN 28 (H) 6 - 20 mg/dL CREATININE 1.87 (H) 0.70 - 1.20 mg/dL Bun/Cre Ratio NOT REPORTED 9 - 20 Calcium 8.8 8.6 - 10.4 mg/dL Sodium 135 135 - 144 mmol/L Potassium 4.4 3.7 - 5.3 mmol/L Chloride 101 98 - 107 mmol/L CO2 22 20 - 31 mmol/L Anion Gap 12 9 - 17 mmol/L GFR Non- 38 (L) >60 mL/min GFR 47 (L) >60 mL/min GFR Comment GFR Staging NOT REPORTED CBC Auto Differential Result Value Ref Range WBC 12.0 (H) 3.5 - 11.3 k/uL RBC 2.68 (L) 4.21 - 5.77 m/uL Hemoglobin 7.3 (L) 13.0 - 17.0 g/dL Hematocrit 24.2 (L) 40.7 - 50.3 % MCV 90.3 82.6 - 102.9 fL MCH 27.2 25.2 - 33.5 pg MCHC 30.2 28.4 - 34.8 g/dL RDW 16.3 (H) 11.8 - 14.4 % Platelets 287 138 - 453 k/uL MPV 10.3 8.1 - 13.5 fL NRBC Automated 0.0 0.0 per 100 WBC Differential Type NOT REPORTED WBC Morphology NOT REPORTED RBC Morphology ANISOCYTOSIS PRESENT Platelet Estimate NOT REPORTED Seg Neutrophils 79 (H) 36 - 65 % Lymphocytes 11 (L) 24 - 43 % Monocytes 8 3 - 12 % Eosinophils % 1 1 - 4 % Basophils 0 0 - 2 % Immature Granulocytes 1 (H) 0 % Segs Absolute 9.47 (H) 1.50 - 8.10 k/uL Absolute Lymph # 1.37 1.10 - 3.70 k/uL Absolute [place] # 1.00 0.10 - 1.20 k/uL Absolute Eos # 0.10 0.00 - 0.44 k/uL Basophils Absolute <0.03 0.00 - 0.20 k/uL Absolute Immature Granulocyte 0.07 0.00 - 0.30 k/uL Hemoglobin and Hematocrit, Blood Result Value Ref Range Hemoglobin 7.2 (L) 13.0 - 17.0 g/dL Hematocrit 24.5 (L) 40.7 - 50.3 % Hemoglobin and Hematocrit, Blood Result Value Ref Range Hemoglobin 7.1 (L) 13.0 - 17.0 g/dL Hematocrit 23.5 (L) 40.7 - 50.3 % CBC Auto Differential Result Value Ref Range WBC 10.0 3.5 - 11.3 k/uL RBC 2.56 (L) 4.21 - 5.77 m/uL Hemoglobin 6.9 (LL) 13.0 - 17.0 g/dL Hematocrit 23.2 (L) 40.7 - 50.3 % MCV 90.6 82.6 - 102.9 fL MCH 27.0 25.2 - 33.5 pg MCHC 29.7 28.4 - 34.8 g/dL RDW 16.4 (H) 11.8 - 14.4 % Platelets 291 138 - 453 k/uL MPV 10.3 8.1 - 13.5 fL NRBC Automated 0.2 (H) 0.0 per 100 WBC Differential Type NOT REPORTED WBC Morphology NOT REPORTED RBC Morphology ANISOCYTOSIS PRESENT Platelet Estimate NOT REPORTED Seg Neutrophils 75 (H) 36 - 65 % Lymphocytes 14 (L) 24 - 43 % Monocytes 8 3 - 12 % Eosinophils % 2 1 - 4 % Basophils 0 0 - 2 % Immature Granulocytes 1 (H) 0 % Segs Absolute 7.54 1.50 - 8.10 k/uL Absolute Lymph # 1.37 1.10 - 3.70 k/uL Absolute [place] # 0.84 0.10 - 1.20 k/uL Absolute Eos # 0.16 0.00 - 0.44 k/uL Basophils Absolute 0.03 0.00 - 0.20 k/uL Absolute Immature Granulocyte 0.07 0.00 - 0.30 k/uL Basic Metabolic Panel w/ Reflex to MG Result Value Ref Range Glucose 163 (H) 70 - 99 mg/dL BUN 24 (H) 6 - 20 mg/dL CREATININE 1.82 (H) 0.70 - 1.20 mg/dL Bun/Cre Ratio NOT REPORTED 9 - 20 Calcium 8.8 8.6 - 10.4 mg/dL Sodium 137 135 - 144 mmol/L Potassium 4.8 3.7 - 5.3 mmol/L Chloride 103 98 - 107 mmol/L CO2 23 20 - 31 mmol/L Anion Gap 11 9 - 17 mmol/L GFR Non- 40 (L) >60 mL/min GFR 48 (L) >60 mL/min GFR Comment GFR Staging NOT REPORTED POC Glucose Fingerstick Result Value Ref Range POC Glucose 258 (H) 75 - 110 mg/dL POC Glucose Fingerstick Result Value Ref Range POC Glucose 255 (H) 75 - 110 mg/dL POC Glucose Fingerstick Result Value Ref Range POC Glucose 192 (H) 75 - 110 mg/dL POC Glucose Fingerstick Result Value Ref Range POC Glucose 205 (H) 75 - 110 mg/dL POC Glucose Fingerstick Result Value Ref Range POC Glucose 198 (H) 75 - 110 mg/dL POC Glucose Fingerstick Result Value Ref Range POC Glucose 227 (H) 75 - 110 mg/dL POC Glucose Fingerstick Result Value Ref Range POC Glucose 242 (H) 75 - 110 mg/dL POC Glucose Fingerstick Result Value Ref Range POC Glucose 254 (H) 75 - 110 mg/dL POC Glucose Fingerstick Result Value Ref Range POC Glucose 205 (H) 75 - 110 mg/dL POC Glucose Fingerstick Result Value Ref Range POC Glucose 171 (H) 75 - 110 mg/dL POC Glucose Fingerstick Result Value Ref Range POC Glucose 239 (H) 75 - 110 mg/dL POC Glucose Fingerstick Result Value Ref Range POC Glucose 222 (H) 75 - 110 mg/dL TYPE AND SCREEN Result Value Ref Range Expiration Date 09/07/2019 Arm Band Number BE [id number] ABO/Rh AB NEGATIVE Antibody Screen NEGATIVE IMAGING DATA: Ct Chest Wo Contrast Result Date: 09/04/2019 EXAMINATION: CT THORACIC SPINE WO CONTRAST, CT CHEST WO CONTRAST HISTORY: Pain the left side with possible hematoma. History of cancer. COMPARISON: None. TECHNIQUE: CT examination of the chest obtained without IV contrast. Coronal and sagittal reformations were performed. Additional reconstructed images of the entire spine performed. Dose reduction techniques were achieved by using automated exposure control and/or adjustment of mA and/or kV according to patient size and/or use of iterative reconstruction technique. FINDINGS: CT CHEST: Mild dependent atelectatic changes noted. Lungs are otherwise well inflated and clear. There is no pleural effusion, consolidation or acute infiltrate. Thereis no evidence an interstitial lung disease. The major airway is patent. No rib fractures or pneumothorax. Note is made of a large multiloculated hematoma in the left posterior lateral chest wall deep to the latissimus dorsi and oblique muscles. It measures approximately 19.5 x 6.4 x 11.5 cm. Thereis no axillary, hilar or mediastinal adenopathy. No visible mediastinal masses. Normal appearance of the heart without pericardial effusion. There is moderate coronary arterial calcification. Normal appearance of the aorta and great vessels for technique without evidence of aneurysm, dissection, orvasculitis. The thyroid gland is unremarkable. There is no hiatal hernia. The visualized portion ofthe upper abdomen demonstrates no acute or concerning abnormality. CT T Spine: There is a nondisplaced fracture of the anterior inferior endplate and associated osteophyte of the T4 level along the right aspect. This is best appreciated on axial images 37 through 41. There are no further acute fractures. Alignment is normal. The intervertebral disc spaces appear preserved throughout the thoracic spine. There are diffuse flowing osteophytes throughout. No obvious bony neural foraminal or centralcanal stenosis. 1. Nondisplaced fracture of the right T4 anterior inferior endplate with associated osteophyte. No further fractures of the spine. 2. Large 19+ centimeter hematoma of the posterior lateral left chestwall, deep to the musculature as above. Correlate with hemoglobin and hematocrit levels. IV contrast not utilized to assess for any active extravasation. 3. Moderate calcific coronary arterial disease. Ct Thoracic Spine Wo Contrast Result Date: 09/04/2019 EXAMINATION: CT THORACIC SPINE WO CONTRAST, CT CHEST WO CONTRAST HISTORY: Pain the left side with possible hematoma. History of cancer. COMPARISON: None. TECHNIQUE: CT examination of the chest obtained without IV contrast. Coronal and sagittal reformations were performed. Additional reconstructed images of the entire spine performed. Dose reduction techniques were achieved by using automated exposure control and/or adjustment of mA and/or kV according to patient size and/or use of iterative reconstruction technique. FINDINGS: CT CHEST: Mild dependent atelectatic changes noted. Lungs are otherwise well inflated and clear. There is no pleural effusion, consolidation or acute infiltrate. Thereis no evidence an interstitial lung disease. The major airway is patent. No rib fractures or pneumothorax. Note is made of a large multiloculated hematoma in the left posterior lateral chest wall deep to the latissimus dorsi and oblique muscles. It measures approximately 19.5 x 6.4 x 11.5 cm. Thereis no axillary, hilar or mediastinal adenopathy. No visible mediastinal masses. Normal appearance of the heart without pericardial effusion. There is moderate coronary arterial calcification. Normal appearance of the aorta and great vessels for technique without evidence of aneurysm, dissection, orvasculitis. The thyroid gland is unremarkable. There is no hiatal hernia. The visualized portion ofthe upper abdomen demonstrates no acute or concerning abnormality. CT T Spine: There is a nondisplaced fracture of the anterior inferior endplate and associated osteophyte of the T4 level along the right aspect. This is best appreciated on axial images 37 through 41. There are no further acute fractures. Alignment is normal. The intervertebral disc spaces appear preserved throughout the thoracic spine. There are diffuse flowing osteophytes throughout. No obvious bony neural foraminal or centralcanal stenosis. 1. Nondisplaced fracture of the right T4 anterior inferior endplate with associated osteophyte. No further fractures of the spine. 2. Large 19+ centimeter hematoma of the posterior lateral left chestwall, deep to the musculature as above. Correlate with hemoglobin and hematocrit levels. IV contrast not utilized to assess for any active extravasation. 3. Moderate calcific coronary arterial disease. 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 Clinically patient does not have any signs or symptoms of carcinoid syndrome. Continue octreotide as previously scheduled, Patient next dose is scheduled for 09/15/2019. Monitor H&H. We will give 1 unit of packed RBC today Pain control. We will continue to follow Discussed with patient and Nurse. Thank you for asking us to see this patient. Armani Figueroa MD This note is created with the assistance of a speech recognition program. While intending to generate a document that actually reflects the content of the visit, the document can still have some errors including those of syntax and sound a like substitutions which may escape proof reading. It such instances, actual meaning can be extrapolated by contextual diversion. * Armani Figueroa MD - 09/06/2019 5:35 PM EDT Today's Date: 09/06/2019 Patient Name: Lorenzo Amato Date of admission: 09/04/2019 2:54 AM Patient's age: 49 y.o., 1970 Admission Dx: Subcutaneous hematoma [T14.8XXA] Reason for Consult: management recommendations Requesting Physician: Cheng Vicente DO CHIEF COMPLAINT: Subcutaneous hematoma. Chest wall pain History Obtained From: patient, spouse, electronic medical record History history: Patient seen and examined. Labs and vitals reviewed. Pain is controlled. H&H dropped. Patient denies fever chills. Denies any obvious bleeding. Patient is off Lovenox HISTORY OF PRESENT ILLNESS: The patient is a 49 y.o. male who is admitted to the hospital for chief complaints of swelling of left chest wall and worsening of pain. 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 Patient has been on octreotide for a few years with symptoms well controlled. Last scan done couple months ago did not show any evidence of disease progression. Patient also has history of recurrent venous thromboembolism. He has history of IVC filter which isoccluded with formation of collaterals. Patient has been on Lovenox and developed subcutaneous hematomas something at the site of the Lovenox shot and sometimes spontaneous subcutaneous hematomas. Patient started noticing pain over his back about 5 days ago which gradually worsened. According the patient she started noticing a bump on the back on the left side yesterday which gradually progressed. CT chest shows large subcutaneous hematoma on the left side. Patient hemoglobin also dropped.CT scan with contrast could not be performed due to CKD. Patient is very reluctant to try direct oral anticoagulants. Past Medical History: has a past medical history of Anemia, Arthritis, Depression, DVT (deep venousthrombosis) (HCC), GI bleed, Lori filter in place, Hypercholesteremia, Hypertension, Liver metastases (HCC), CO (myocardial infarction) (HCC), MS (multiple sclerosis) (HCC), Neuroendocrine tumor, PE (pulmonary embolism), Type II or unspecified type diabetes mellitus without mention of complication, not stated as uncontrolled, Unspecified sleep apnea, and Vitamin D deficiency. Past Surgical History: has a past surgical history that includes Tonsillectomy; Appendectomy; Percutaneous Transluminal Coronary Angio; Colonoscopy; Vasectomy (18 years ago); Thyroid surgery (05/11/13); Coronary angioplasty with stent (2004); and Upper gastrointestinal endoscopy (10/14/2016). Medications: Prior to Admission medications Medication Sig Start Date End Date Taking? Authorizing Provider busPIRone (BUSPAR) 15 MG tablet TAKE ONE TABLET BY MOUTH THREE TIMES A DAY 08/17/19 Lion Carlson MD hydrALAZINE (APRESOLINE) 50 MG tablet TAKE 1 1/2 TABLETS BY MOUTH TWICE DAILY 06/16/19 iLon Carlson MD enoxaparin (LOVENOX) 150 MG/ML injection INJECT 150 MG SUBCUTANEOUSLY TWO TIMES A DAY 06/12/19 MD Damaris metoprolol (LOPRESSOR) 100 MG tablet TAKE 1 TABLET BY MOUTH 2 TIMES A DAY 06/09/19 Lion Carlson MD atorvastatin (LIPITOR) 80 MG tablet TAKE 1 TABLET BY MOUTH ONE TIME DAILY 05/11/19 Lion Carlson MD omeprazole (PRILOSEC) 40 MG delayed release capsule TAKE 1 CAPSULE BY MOUTH 2 TIMES A DAY 04/14/19 Lion Carlson MD SANDOSTATIN LAR DEPOT 30 MG injection INJECT 30 MG INTO THE MUSCLE EVERY 28 DAYS 04/11/19 Trevor Serna MD DULoxetine (CYMBALTA) 60 MG extended release capsule TAKE 1 CAPSULE BY MOUTH ONE TIME A DAY 04/11/19Lion Carlson MD furosemide (LASIX) 20 MG tablet Take 1 tablet by mouth (20 mg) every other day Patient taking differently: See Admin Instructions As needed wt gain swelling 03/06/19 Lion Carlson MD insulin lispro (HUMALOG KWIKPEN) 100 UNIT/ML pen Inject 5 Units into the skin 3 times daily (beforemeals) 03/06/19 Lion Carlson MD Insulin Pen Needle (B-D ULTRAFINE III SHORT PEN) 31G X 8 MM MISC Use as directed with insulin pen needles, up to 5x/day 03/06/19 Lion Carlson MD vitamin D (ERGOCALCIFEROL) 59230 units CAPS capsule Take 1 capsule by mouth once a week 03/06/19 Lion Carlson MD Blood Glucose Monitoring Suppl ([employer] AUTOCODE BLOOD GLUCOSE) w/Device KIT Use as directed to test up to 4 times daily 03/06/19 MD JUDITH Patel LANCETS 28G MISC Use as directed to test up to 4 times daily 03/06/19 Lion Carlson MD blood glucose test strips ([employer] NO CODING BLOOD GLUC) strip 1 each by In Vitro route 4 times daily As needed. 03/06/19 Lion Carlson MD losartan (COZAAR) 25 MG tablet Take 25 mg by mouth 2 times daily Historical Provider, insulin glargine (TOUJEO MAX SOLOSTAR) 300 UNIT/ML injection pen Inject 130 Units into the skin 2 times daily 08/02/18 Lion Carlson MD meclizine (ANTIVERT) 25 MG tablet Take 1 tablet by mouth 3 times daily as needed for Dizziness 02/25/18 Lion Carlson MD Current Facility-Administered Medications Medication Dose Route Frequency Provider Last Rate Last Dose tamsulosin (FLOMAX) capsule 0.4 mg 0.4 mg Oral Daily William Hassan MD 0.4 mg at 09/06/19 0851 senna (SENOKOT) tablet 8.6 mg 1 tablet Oral Nightly PRN Cheng Vicente, DO magnesium hydroxide (MILK OF MAGNESIA) 400 MG/5ML suspension 30 mL 30 mL Oral Daily PRN Cheng Vicente, DO 0.9 % sodium chloride infusion Intravenous Continuous Cheng Vicente, DO 75 mL/hr at 09/06/19 0508 insulin glargine (LANTUS) injection vial 100 Units 100 Units Subcutaneous WEST Tesfaye CNP 100 Units at 09/06/19 0853 fentaNYL (SUBLIMAZE) injection 50 mcg 50 mcg Intravenous Once Lexa Bonilla, DO acetaminophen (TYLENOL) tablet 650 mg 650 mg Oral Q4H PRN WEST Olivares CNP nicotine (NICODERM CQ) 21 MG/24HR 1 patch 1 patch Transdermal Daily PRN WEST Olivares CNP ondansetron (ZOFRAN) injection 4 mg 4 mg Intravenous Q6H PRN WEST Olivares CNP 4 mg at 09/04/19 1511 polyethylene glycol (GLYCOLAX) packet 17 g 17 g Oral Daily PRN WEST Olivares CNP 17 g at 09/06/19 1011 sodium chloride flush 0.9 % injection 10 mL 10 mL Intravenous 2 times per day WEST OlivaresCLAIMS ADJUSTOR 10 mL at 09/04/19 2148 sodium chloride flush 0.9 % injection 10 mL 10 mL Intravenous PRN WEST Olivares CNP 10 mL at 09/04/19 2148 insulin lispro (HUMALOG) injection vial 0-12 Units 0-12 Units Subcutaneous TID WC Cheng Wilsonp, DO 4 Units at 09/06/19 1724 insulin lispro (HUMALOG) injection vial 0-6 Units 0-6 Units Subcutaneous Nightly Cheng Sheltonlop, DO 2 Units at 09/05/19 2151 glucose (GLUTOSE) 40 % oral gel 15 g 15 g Oral PRN Cheng Wilsonp, DO dextrose 50 % IV solution 12.5 g Intravenous PRN Cheng Wilsonp, DO glucagon (rDNA) injection 1 mg 1 mg Intramuscular PRN Cheng Wilsonp, DO dextrose 5 % solution 100 mL/hr Intravenous PRN Cheng Sheltonlop, DO HYDROcodone-acetaminophen (NORCO) 5-325 MG per tablet 1 tablet 1 tablet Oral Q4H PRN Cheng Patel Orlop, DO 1 tablet at 09/06/19 0508 Or HYDROcodone-acetaminophen (NORCO) 5-325 MG per tablet 2 tablet 2 tablet Oral Q4H PRN Cheng Patel Orlop, DO 2 tablet at 09/06/19 1011 atorvastatin (LIPITOR) tablet 80 mg 80 mg Oral Nightly Cheng Patel Orlop, DO 80 mg at 09/05/19 2151 busPIRone (BUSPAR) tablet 15 mg 15 mg Oral TID Cheng Sheltonlop, DO 15 mg at 09/06/19 1542 DULoxetine (CYMBALTA) extended release capsule 60 mg 60 mg Oral Daily Cheng Patel Orlop, DO 60 mg at 09/06/19 0851 [Held by provider] furosemide (LASIX) tablet 20 mg 20 mg Oral Q48H Cheng Sheltonlop, DO 20 mg at 09/04/19 1254 hydrALAZINE (APRESOLINE) tablet 75 mg 75 mg Oral BID Cheng Patel Orlop, DO 75 mg at 09/06/19 0851 [Held by provider] losartan (COZAAR) tablet 25 mg 25 mg Oral BID Cheng Patel Orlop, DO 25 mg at 09/04/19 1254 meclizine (ANTIVERT) tablet 25 mg 25 mg Oral TID PRN Cheng Patel Orlop, DO metoprolol tartrate (LOPRESSOR) tablet 100 mg 100 mg Oral BID Cheng Patel Orlop, DO 100 mg at 09/06/19 0851 pantoprazole (PROTONIX) tablet 40 mg 40 mg Oral QAM AC Cheng Patel Orlop, DO 40 mg at 09/06/19 0509 vitamin D (ERGOCALCIFEROL) capsule 50,000 Units 50,000 Units Oral Weekly Cheng Patel Orlop, DO 50,000Units at 09/04/19 1252 morphine (PF) injection 2 mg 2 mg Intravenous Q4H PRN Cheng Sheltonlop, DO 2 mg at 09/04/19 1939 influenza quadrivalent split vaccine (FLUZONE;FLUARIX;FLULAVAL;AFLURIA) injection 0.5 mL 0.5 mL Intramuscular Once Elvia Obrien, RN LORazepam (ATIVAN) tablet 0.5 mg 0.5 mg Oral Q6H PRN Tequila Mota, 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 He has quit using smokeless tobacco. His smokeless tobacco use included chew. He reports that he does not drink alcohol or use drugs. Family History: family history includes Cancer in his mother; Heart Disease in his father. REVIEW OF SYSTEMS: Constitutional: No fever or chills. No night sweats, no weight loss Eyes: No eye discharge, double vision, or eye pain HEENT: negative for sore mouth, sore throat, hoarseness and voice change Respiratory: negative for cough , sputum, dyspnea, wheezing, hemoptysis, chest pain Cardiovascular: negative for chest pain, dyspnea, palpitations, orthopnea, PND Gastrointestinal: negative for nausea, vomiting, diarrhea, constipation, abdominal pain, Dysphagia,hematemesis and hematochezia Genitourinary: negative for frequency, dysuria, nocturia, urinary incontinence, and hematuria Integument: negative for rash, skin lesions, bruises. Hematologic/Lymphatic: negative for easy bruising, bleeding, lymphadenopathy, or petechiae Endocrine: negative for heat or cold intolerance,weight changes, change in bowel habits and hair loss Musculoskeletal: Positive for back pain Neurological: negative for headaches, dizziness, seizures, weakness, numbness PHYSICAL EXAM: BP 117/72 Pulse 72 Temp 98.2 F (36.8 C) (Oral) Resp 16 Ht 5' 9 (1.753 m) Wt 296 lb (134.3 kg) SpO2 99% BMI 43.71 kg/m Temp (24hrs), Av.1 F (36.7 C), Min:97.8 F (36.6 C), Max:98.2 F (36.8 C) General appearance - well appearing, no in pain or distress Mental status - alert and cooperative Eyes - pupils equal and reactive, extraocular eye movements intact Ears - bilateral TM's and external ear canals normal Mouth - mucous membranes moist, pharynx normal without lesions Neck - supple, no significant adenopathy Lymphatics - no palpable lymphadenopathy, no hepatosplenomegaly Chest - clear to auscultation, large tender firm bump noted on the back, left side heart - normal rate, regular rhythm, normal S1, S2, no murmurs Abdomen - soft, nontender, nondistended, no masses or organomegaly Neurological - alert, oriented, normal speech, no focal findings or movement disorder noted Musculoskeletal - no joint tenderness, deformity or swelling Extremities - peripheral pulses normal, no pedal edema, no clubbing or cyanosis Skin - normal coloration and turgor, no rashes, no suspicious skin lesions noted , DATA: Labs: CBC: Recent Labs 09/05/19 0513 09/06/19 0506 09/06/19 1631 WBC 11.4* -- 12.0* -- HGB 8.2* < > 7.3* 7.2* HCT 26.4* < > 24.2* 24.5* PLT 308 -- 287 -- < > = values in this interval not displayed. BMP: Recent Labs 09/05/19 1224 09/06/19 0506 NA 133* 135 K 4.8 4.4 CO2 24 22 BUN 30* 28* CREATININE 2.29* 1.87* LABGLOM 30* 38* GLUCOSE 254* 173* PT/INR: Recent Labs 09/04/19 0310 09/05/19512 PROTIME 10.2 10.1 INR 1.0 0.9 APTT: Recent Labs 09/03/19219909/04/19309 APTT 31.2 28.5 LIVER PROFILE: Recent Labs 09/03/192199 AST 14 ALT 14 LABALBU 4.0 Results for orders placed or performed during the hospital encounter of 09/04/19 TROP/MYOGLOBIN Result Value Ref Range Troponin, High Sensitivity 20 0 - 22 ng/L Troponin T NOT REPORTED <0.03 ng/mL Troponin Interp NOT REPORTED Myoglobin 89 (H) 28 - 72 ng/mL Trauma Panel Result Value Ref Range WBC 15.3 (H) 3.5 - 11.3 k/uL RBC 4.18 (L) 4.21 - 5.77 m/uL Hemoglobin 11.4 (L) 13.0 - 17.0 g/dL Hematocrit 35.9 (L) 40.7 - 50.3 % MCV 85.9 82.6 - 102.9 fL MCH 27.3 25.2 - 33.5 pg MCHC 31.8 28.4 - 34.8 g/dL RDW 15.4 (H) 11.8 - 14.4 % Platelets 304 138 - 453 k/uL MPV 10.4 8.1 - 13.5 fL NRBC Automated 0.0 0.0 per 100 WBC Sodium 130 (L) 135 - 144 mmol/L Potassium 4.4 3.7 - 5.3 mmol/L Chloride 96 (L) 98 - 107 mmol/L CO2 21 20 - 31 mmol/L Anion Gap 13 9 - 17 mmol/L Glucose 224 (H) 70 - 99 mg/dL pH, Marek 7.359 7.320 - 7.420 pCO2, Marek 42.8 39 - 55 pO2, Marek 38.3 30 - 50 HCO3, Venous 23.5 (L) 24 - 30 mmol/L Positive Base Excess, Marek NOT REPORTED 0.0 - 2.0 mmol/L Negative Base Excess, Marek 1.4 0.0 - 2.0 mmol/L O2 Sat, Marek 68.3 60.0 - 85.0 % Total Hb NOT REPORTED 12.0 - 16.0 g/dl Oxyhemoglobin NOT REPORTED 95.0 - 98.0 % Carboxyhemoglobin 1.4 0 - 5 % Methemoglobin NOT REPORTED 0.0 - 1.5 % Pt Temp 37.0 pH, Marek, Temp Adj NOT REPORTED 7.320 - 7.420 pCO2, Marek, Temp Adj NOT REPORTED 39 - 55 mmHg pO2, Marek, Temp Adj NOT REPORTED 30 - 50 mmHg O2 Device/Flow/% NOT REPORTED Respiratory Rate NOT REPORTED Roman Test NOT REPORTED Sample Site NOT REPORTED Pt. Position NOT REPORTED Mode NOT REPORTED Set Rate NOT REPORTED Total Rate NOT REPORTED VT NOT REPORTED FIO2 TRAUMA Peep/Cpap NOT REPORTED PSV NOT REPORTED Text for Respiratory NOT REPORTED NOTIFICATION NOT REPORTED NOTIFICATION TIME NOT REPORTED Blood Bank Specimen BILL FOR SERVICES PERFORMED hCG Qual PT IS MALE NEGATIVE BUN 16 6 - 20 mg/dL CREATININE 1.64 (H) 0.70 - 1.20 mg/dL GFR Non- 45 (L) >60 mL/min GFR 54 (L) >60 mL/min GFR Comment GFR Staging NOT REPORTED Ethanol <10 <10 mg/dL Ethanol percent <0.010 <0.010 % Protime 10.2 9.0 - 12.0 sec INR 1.0 PTT 28.5 20.5 - 30.5 sec Urine Drug Screen Result Value Ref Range Amphetamine Screen, Ur NEGATIVE NEGATIVE Barbiturate Screen, Ur NEGATIVE NEGATIVE Benzodiazepine Screen, Urine NEGATIVE NEGATIVE Cocaine Metabolite, Urine NEGATIVE NEGATIVE Methadone Screen, Urine NEGATIVE NEGATIVE Opiates, Urine POSITIVE (A) NEGATIVE Phencyclidine, Urine NEGATIVE NEGATIVE Propoxyphene, Urine NOT REPORTED NEGATIVE Cannabinoid Scrn, Ur NEGATIVE NEGATIVE Oxycodone Screen, Ur NEGATIVE NEGATIVE Methamphetamine, Urine NOT REPORTED NEGATIVE Tricyclic Antidepressants, Urine NOT REPORTED NEGATIVE MDMA, Urine NOT REPORTED NEGATIVE Buprenorphine Urine NOT REPORTED NEGATIVE Test Information Assay provides medical screening only. The absence of expected drug(s) and/or metabolite(s) may indicate diluted or adulterated urine, limitations of testing or timing of collection. Urinalysis Result Value Ref Range Color, UA YELLOW YELLOW Turbidity UA CLEAR CLEAR Glucose, Ur 2+ (A) NEGATIVE Bilirubin Urine NEGATIVE NEGATIVE Ketones, Urine TRACE (A) NEGATIVE Specific [place], UA 1.035 (H) 1.005 - 1.030 Urine Hgb NEGATIVE NEGATIVE pH, UA 5.5 5.0 - 8.0 Protein, UA 4+ (A) NEGATIVE Urobilinogen, Urine Normal Normal Nitrite, Urine NEGATIVE NEGATIVE Leukocyte Esterase, Urine NEGATIVE NEGATIVE Urinalysis Comments NOT REPORTED Hemoglobin and Hematocrit, Blood Result Value Ref Range Hemoglobin 9.5 (L) 13.0 - 17.0 g/dL Hematocrit 30.0 (L) 40.7 - 50.3 % Platelet function test Result Value Ref Range DARIEL/EPI Clos Time 87 85 - 172 sec Collagen Adenosine-5'-Diphosphate (Adp) Time 87 67 - 112 sec Platelet Function Interp Normal platelet function. If patient clinical history/Physical examination is positive for a bleeding diathesis, recommend repeat testing and/or additional primary hemostasis and/or coagulation studies. Basic Metabolic Panel w/ Reflex to MG Result Value Ref Range Glucose 242 (H) 70 - 99 mg/dL BUN 29 (H) 6 - 20 mg/dL CREATININE 2.42 (H) 0.70 - 1.20 mg/dL Bun/Cre Ratio NOT REPORTED 9 - 20 Calcium 8.6 8.6 - 10.4 mg/dL Sodium 133 (L) 135 - 144 mmol/L Potassium 4.3 3.7 - 5.3 mmol/L Chloride 98 98 - 107 mmol/L CO2 22 20 - 31 mmol/L Anion Gap 13 9 - 17 mmol/L GFR Non- 29 (L) >60 mL/min GFR 35 (L) >60 mL/min GFR Comment GFR Staging NOT REPORTED CBC Result Value Ref Range WBC 11.4 (H) 3.5 - 11.3 k/uL RBC 3.03 (L) 4.21 - 5.77 m/uL Hemoglobin 8.2 (L) 13.0 - 17.0 g/dL Hematocrit 26.4 (L) 40.7 - 50.3 % MCV 87.1 82.6 - 102.9 fL MCH 27.1 25.2 - 33.5 pg MCHC 31.1 28.4 - 34.8 g/dL RDW 16.1 (H) 11.8 - 14.4 % Platelets 308 138 - 453 k/uL MPV 10.2 8.1 - 13.5 fL NRBC Automated 0.0 0.0 per 100 WBC Protime-INR Result Value Ref Range Protime 10.1 9.0 - 12.0 sec INR 0.9 Hemoglobin and Hematocrit, Blood Result Value Ref Range Hemoglobin 10.1 (L) 13.0 - 17.0 g/dL Hematocrit 31.8 (L) 40.7 - 50.3 % Hemoglobin and Hematocrit, Blood Result Value Ref Range Hemoglobin 8.8 (L) 13.0 - 17.0 g/dL Hematocrit 28.6 (L) 40.7 - 50.3 % Microscopic Urinalysis Result Value Ref Range - WBC, UA 2 TO 5 0 - 5 /HPF RBC, UA 2 TO 5 0 - 2 /HPF Casts UA 10 TO 20 0 - 2 /LPF Casts UA HYALINE 0 - 2 /LPF Crystals UA NOT REPORTED None /HPF Epithelial Cells UA 2 TO 5 0 - 5 /HPF Renal Epithelial, Urine NOT REPORTED 0 /HPF Bacteria, UA FEW (A) None Mucus, UA 2+ (A) None Trichomonas, UA NOT REPORTED None Amorphous, UA NOT REPORTED None Other Observations UA NOT REPORTED NOT REQ. Yeast, UA NOT REPORTED None Hemoglobin and Hematocrit, Blood Result Value Ref Range Hemoglobin 7.6 (L) 13.0 - 17.0 g/dL Hematocrit 24.6 (L) 40.7 - 50.3 % Basic Metabolic Panel w/ Reflex to MG Result Value Ref Range Glucose 254 (H) 70 - 99 mg/dL BUN 30 (H) 6 - 20 mg/dL CREATININE 2.29 (H) 0.70 - 1.20 mg/dL Bun/Cre Ratio NOT REPORTED 9 - 20 Calcium 8.7 8.6 - 10.4 mg/dL Sodium 133 (L) 135 - 144 mmol/L Potassium 4.8 3.7 - 5.3 mmol/L Chloride 98 98 - 107 mmol/L CO2 24 20 - 31 mmol/L Anion Gap 11 9 - 17 mmol/L GFR Non- 30 (L) >60 mL/min GFR 37 (L) >60 mL/min GFR Comment GFR Staging NOT REPORTED Iron and TIBC Result Value Ref Range Iron 36 (L) 59 - 158 ug/dL TIBC 215 (L) 250 - 450 ug/dL Iron Saturation 17 (L) 20 - 55 % UIBC 179 112 - 347 ug/dL Ferritin Result Value Ref Range Ferritin 62 30 - 400 ug/L Hemoglobin and Hematocrit, Blood Result Value Ref Range Hemoglobin 7.7 (L) 13.0 - 17.0 g/dL Hematocrit 25.3 (L) 40.7 - 50.3 % Basic Metabolic Panel w/ Reflex to MG Result Value Ref Range Glucose 173 (H) 70 - 99 mg/dL BUN 28 (H) 6 - 20 mg/dL CREATININE 1.87 (H) 0.70 - 1.20 mg/dL Bun/Cre Ratio NOT REPORTED 9 - 20 Calcium 8.8 8.6 - 10.4 mg/dL Sodium 135 135 - 144 mmol/L Potassium 4.4 3.7 - 5.3 mmol/L Chloride 101 98 - 107 mmol/L CO2 22 20 - 31 mmol/L Anion Gap 12 9 - 17 mmol/L GFR Non- 38 (L) >60 mL/min GFR 47 (L) >60 mL/min GFR Comment GFR Staging NOT REPORTED CBC Auto Differential Result Value Ref Range WBC 12.0 (H) 3.5 - 11.3 k/uL RBC 2.68 (L) 4.21 - 5.77 m/uL Hemoglobin 7.3 (L) 13.0 - 17.0 g/dL Hematocrit 24.2 (L) 40.7 - 50.3 % MCV 90.3 82.6 - 102.9 fL MCH 27.2 25.2 - 33.5 pg MCHC 30.2 28.4 - 34.8 g/dL RDW 16.3 (H) 11.8 - 14.4 % Platelets 287 138 - 453 k/uL MPV 10.3 8.1 - 13.5 fL NRBC Automated 0.0 0.0 per 100 WBC Differential Type NOT REPORTED WBC Morphology NOT REPORTED RBC Morphology ANISOCYTOSIS PRESENT Platelet Estimate NOT REPORTED Seg Neutrophils 79 (H) 36 - 65 % Lymphocytes 11 (L) 24 - 43 % Monocytes 8 3 - 12 % Eosinophils % 1 1 - 4 % Basophils 0 0 - 2 % Immature Granulocytes 1 (H) 0 % Segs Absolute 9.47 (H) 1.50 - 8.10 k/uL Absolute Lymph # 1.37 1.10 - 3.70 k/uL Absolute [place] # 1.00 0.10 - 1.20 k/uL Absolute Eos # 0.10 0.00 - 0.44 k/uL Basophils Absolute <0.03 0.00 - 0.20 k/uL Absolute Immature Granulocyte 0.07 0.00 - 0.30 k/uL Hemoglobin and Hematocrit, Blood Result Value Ref Range Hemoglobin 7.2 (L) 13.0 - 17.0 g/dL Hematocrit 24.5 (L) 40.7 - 50.3 % POC Glucose Fingerstick Result Value Ref Range POC Glucose 258 (H) 75 - 110 mg/dL POC Glucose Fingerstick Result Value Ref Range POC Glucose 255 (H) 75 - 110 mg/dL POC Glucose Fingerstick Result Value Ref Range POC Glucose 192 (H) 75 - 110 mg/dL POC Glucose Fingerstick Result Value Ref Range POC Glucose 205 (H) 75 - 110 mg/dL POC Glucose Fingerstick Result Value Ref Range POC Glucose 198 (H) 75 - 110 mg/dL POC Glucose Fingerstick Result Value Ref Range POC Glucose 227 (H) 75 - 110 mg/dL POC Glucose Fingerstick Result Value Ref Range POC Glucose 242 (H) 75 - 110 mg/dL POC Glucose Fingerstick Result Value Ref Range POC Glucose 254 (H) 75 - 110 mg/dL POC Glucose Fingerstick Result Value Ref Range POC Glucose 205 (H) 75 - 110 mg/dL POC Glucose Fingerstick Result Value Ref Range POC Glucose 171 (H) 75 - 110 mg/dL POC Glucose Fingerstick Result Value Ref Range POC Glucose 239 (H) 75 - 110 mg/dL POC Glucose Fingerstick Result Value Ref Range POC Glucose 222 (H) 75 - 110 mg/dL TYPE AND SCREEN Result Value Ref Range Expiration Date 09/07/2019 Arm Band Number BE [id number] ABO/Rh AB NEGATIVE Antibody Screen NEGATIVE IMAGING DATA: Ct Chest Wo Contrast Result Date: 09/04/2019 EXAMINATION: CT THORACIC SPINE WO CONTRAST, CT CHEST WO CONTRAST HISTORY: Pain the left side with possible hematoma. History of cancer. COMPARISON: None. TECHNIQUE: CT examination of the chest obtained without IV contrast. Coronal and sagittal reformations were performed. Additional reconstructed images of the entire spine performed. Dose reduction techniques were achieved by using automated exposure control and/or adjustment of mA and/or kV according to patient size and/or use of iterative reconstruction technique. FINDINGS: CT CHEST: Mild dependent atelectatic changes noted. Lungs are otherwise well inflated and clear. There is no pleural effusion, consolidation or acute infiltrate. Thereis no evidence an interstitial lung disease. The major airway is patent. No rib fractures or pneumothorax. Note is made of a large multiloculated hematoma in the left posterior lateral chest wall deep to the latissimus dorsi and oblique muscles. It measures approximately 19.5 x 6.4 x 11.5 cm. Thereis no axillary, hilar or mediastinal adenopathy. No visible mediastinal masses. Normal appearance of the heart without pericardial effusion. There is moderate coronary arterial calcification. Normal appearance of the aorta and great vessels for technique without evidence of aneurysm, dissection, orvasculitis. The thyroid gland is unremarkable. There is no hiatal hernia. The visualized portion ofthe upper abdomen demonstrates no acute or concerning abnormality. CT T Spine: There is a nondisplaced fracture of the anterior inferior endplate and associated osteophyte of the T4 level along the right aspect. This is best appreciated on axial images 37 through 41. There are no further acute fractures. Alignment is normal. The intervertebral disc spaces appear preserved throughout the thoracic spine. There are diffuse flowing osteophytes throughout. No obvious bony neural foraminal or centralcanal stenosis. 1. Nondisplaced fracture of the right T4 anterior inferior endplate with associated osteophyte. No further fractures of the spine. 2. Large 19+ centimeter hematoma of the posterior lateral left chestwall, deep to the musculature as above. Correlate with hemoglobin and hematocrit levels. IV contrast not utilized to assess for any active extravasation. 3. Moderate calcific coronary arterial disease. Ct Thoracic Spine Wo Contrast Result Date: 09/04/2019 EXAMINATION: CT THORACIC SPINE WO CONTRAST, CT CHEST WO CONTRAST HISTORY: Pain the left side with possible hematoma. History of cancer. COMPARISON: None. TECHNIQUE: CT examination of the chest obtained without IV contrast. Coronal and sagittal reformations were performed. Additional reconstructed images of the entire spine performed. Dose reduction techniques were achieved by using automated exposure control and/or adjustment of mA and/or kV according to patient size and/or use of iterative reconstruction technique. FINDINGS: CT CHEST: Mild dependent atelectatic changes noted. Lungs are otherwise well inflated and clear. There is no pleural effusion, consolidation or acute infiltrate. Thereis no evidence an interstitial lung disease. The major airway is patent. No rib fractures or pneumothorax. Note is made of a large multiloculated hematoma in the left posterior lateral chest wall deep to the latissimus dorsi and oblique muscles. It measures approximately 19.5 x 6.4 x 11.5 cm. Thereis no axillary, hilar or mediastinal adenopathy. No visible mediastinal masses. Normal appearance of the heart without pericardial effusion. There is moderate coronary arterial calcification. Normal appearance of the aorta and great vessels for technique without evidence of aneurysm, dissection, orvasculitis. The thyroid gland is unremarkable. There is no hiatal hernia. The visualized portion ofthe upper abdomen demonstrates no acute or concerning abnormality. CT T Spine: There is a nondisplaced fracture of the anterior inferior endplate and associated osteophyte of the T4 level along the right aspect. This is best appreciated on axial images 37 through 41. There are no further acute fractures. Alignment is normal. The intervertebral disc spaces appear preserved throughout the thoracic spine. There are diffuse flowing osteophytes throughout. No obvious bony neural foraminal or centralcanal stenosis. 1. Nondisplaced fracture of the right T4 anterior inferior endplate with associated osteophyte. No further fractures of the spine. 2. Large 19+ centimeter hematoma of the posterior lateral left chestwall, deep to the musculature as above. Correlate with hemoglobin and hematocrit levels. IV contrast not utilized to assess for any active extravasation. 3. Moderate calcific coronary arterial disease. 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 Clinically patient does not have any symptoms of carcinoid syndrome. Continue octreotide as previously scheduled Monitor H&H. Transfuse to keep hemoglobin above 7 Pain control Encourage patient to take good breaths. Discussed with patient and Nurse. Thank you for asking us to see this patient. Armani Figueroa MD This note is created with the assistance of a speech recognition program. While intending to generate a document that actually reflects the content of the visit, the document can still have some errors including those of syntax and sound a like substitutions which may escape proof reading. It such instances, actual meaning can be extrapolated by contextual diversion. * Yuni Winter, PT - 09/06/2019 2:19 PM EDT Physical Therapy DATE: 09/06/2019 NAME: Lorenzo Amato : 1970 Patient not seen this date for Physical Therapy due to: [] Blood transfusion in progress [] Hemodialysis [x] Patient Declined: Pt initially agreeable to therapy session this date. After social/ functionalhistory, pt declining all mobility d/t pain. Pt edcuated on the importance of mobility, effects of immobility and purpose of skilled PT. PT will check back 09/07/19. [] Spine Precautions [] Strict Bedrest [] Surgery/ Procedure [] Testing [] Other [] PT being discontinued at this time. Patient independent. No further needs. [] PT being discontinued at this time as the patient has been transferred to palliative care. No further needs. Yuni Winter PT * Cheng Vicente DO - 09/06/2019 11:58 AM EDT [facility] IN-PATIENT SERVICE [facility] Progress Note 09/06/2019 11:59 AM Name: Lorenzo Amato Acct: [id number] Room: 0449/0449-01 IP Day: 2 Admit Date: 09/04/2019 2:54 AM PCP: Lion Carlson MD Code Status: Full Code Subjective: C/C: Chief Complaint Patient presents with Trauma tx from iona, L4 fracture, Interval History Status: improved. Pain is better controlled. Denies any chest pain, shortness of breath, nausea or vomiting. Continues to have left scapular and rib cage pain and has developed worsening bruising. Brief History: This is a 49-year-old white male who is on chronic anticoagulation with subcutaneous Lovenox that presents with left scapular pain and found to have subcutaneous hematoma. He is admitted for further management and serial H&H monitoring. His pain is better controlled with current oral medications. He denies any other acute complaints. He denies any injury. He does have chronic kidney disease and has had recent weight loss without adjustment of his Lovenox dosing. He has had evidence of urinary retention and acute kidney injury. Bill catheter has been placed. IV fluids initiated with improvement in his renal function. Carina and Negra have been held Review of Systems: Constitutional: negative for chills, fevers, sweats Respiratory: negative for cough, dyspnea on exertion, hemoptysis, shortness of breath, wheezing Cardiovascular: negative for chest pain, chest pressure/discomfort, lower extremity edema, palpitations Gastrointestinal: negative for abdominal pain, constipation, diarrhea, nausea, vomiting Neurological: negative for dizziness, headache Medications: Allergies: Allergies Allergen Reactions Toradol [Ketorolac Tromethamine] Other (See Comments) Pt went into kidney failure Lisinopril Other (See Comments) Cough Current Meds: Scheduled Meds: tamsulosin 0.4 mg Oral Daily insulin glargine 100 Units Subcutaneous QAM fentanNYL 50 mcg Intravenous Once sodium chloride flush 10 mL Intravenous 2 times per day insulin lispro 0-12 Units Subcutaneous TID insulin lispro 0-6 Units Subcutaneous Nightly atorvastatin 80 mg Oral Nightly busPIRone 15 mg Oral TID DULoxetine 60 mg Oral Daily [Held by provider] furosemide 20 mg Oral Q48H hydrALAZINE 75 mg Oral BID [Held by provider] losartan 25 mg Oral BID metoprolol 100 mg Oral BID pantoprazole 40 mg Oral QAM AC vitamin D 50,000 Units Oral Weekly influenza virus vaccine 0.5 mL Intramuscular Once Continuous Infusions: sodium chloride 75 mL/hr at 09/06/19 0508 dextrose PRN Meds: acetaminophen, nicotine, ondansetron, polyethylene glycol, sodium chloride flush, glucose, dextrose, glucagon (rDNA), dextrose, HYDROcodone 5 mg - acetaminophen OR HYDROcodone 5 mg - acetaminophen, meclizine, morphine, LORazepam Data: Past Medical History: has a past medical history of Anemia, Arthritis, Depression, DVT (deep venousthrombosis) (HCC), GI bleed, [place] filter in place, Hypercholesteremia, Hypertension, Liver metastases (HCC), CO (myocardial infarction) (HCC), MS (multiple sclerosis) (HCC), Neuroendocrine tumor, PE (pulmonary embolism), Type II or unspecified type diabetes mellitus without mention of complication, not stated as uncontrolled, Unspecified sleep apnea, and Vitamin D deficiency. Social History: reports that he has never smoked. He has quit using smokeless tobacco. His smokeless tobacco use included chew. He reports that he does not drink alcohol or use drugs. Family History: Family History Problem Relation Age of Onset Cancer Mother ovarian Heart Disease Father Vitals: BP 121/73 Pulse 96 Temp 97.8 F (36.6 C) (Oral) Resp 16 Ht 5' 9 (1.753 m) Wt 296 lb (134.3 kg) SpO2 98% BMI 43.71 kg/m Temp (24hrs), Av F (36.7 C), Min:97.8 F (36.6 C), Max:98.2 F (36.8 C) Recent Labs 09/05/19 1650 09/05/19 2126 09/06/19 0721 09/06/19 1131 POCGLU 254* 205* 171* 239* I/O (24Hr): Intake/Output Summary (Last 24 hours) at 09/06/2019 1159 Last data filed at 09/06/2019 0510 Gross per 24 hour Intake Output 1300 ml Net -1300 ml Labs: Hematology: Recent Labs 09/03/19 2200 09/04/19 0310 09/05/19 0513 09/05/19 1536 09/05/19 2330 09/06/19 0506 WBC 13.6* < > 15.3* -- 11.4* -- -- 12.0* RBC 4.45* < > 4.18* -- 3.03* -- -- 2.68* HGB 12.4* < > 11.4* < > 8.2* 7.6* 7.7* 7.3* HCT 36.8* < > 35.9* < > 26.4* 24.6* 25.3* 24.2* MCV 82.8 < > 85.9 -- 87.1 -- -- 90.3 MCH 27.8 < > 27.3 -- 27.1 -- -- 27.2 MCHC 33.5 < > 31.8 -- 31.1 -- -- 30.2 RDW 16.9* < > 15.4* -- 16.1* -- -- 16.3* PLT 292 < > 304 -- 308 -- -- 287 MPV NOT REPORTED < > 10.4 -- 10.2 -- -- 10.3 INR 1.0 -- 1.0 -- 0.9 -- -- -- < > = values in this interval not displayed. Chemistry: Recent Labs 09/04/19 0310 09/05/19 0513 09/05/19 1224 09/06/19 0506 NA 130* 133* 133* 135 K 4.4 4.3 4.8 4.4 CL 96* 98 98 101 CO2 21 22 24 22 GLUCOSE 224* 242* 254* 173* BUN 16 29* 30* 28* CREATININE 1.64* 2.42* 2.29* 1.87* ANIONGAP 13 13 11 12 LABGLOM 45* 29* 30* 38* GFRAA 54* 35* 37* 47* CALCIUM -- 8.6 8.7 8.8 TROPHS 20 -- -- -- MYOGLOBIN 89* -- -- -- Recent Labs 09/03/19 2200 09/05/19 0842 09/05/19 1112 09/05/19 1650 09/05/19 2126 09/06/19 0721 09/06/19 1131 PROT 7.2 -- -- -- -- -- -- -- LABALBU 4.0 -- -- -- -- -- -- -- AST 14 -- -- -- -- -- -- -- ALT 14 -- -- -- -- -- -- -- ALKPHOS 89 -- -- -- -- -- -- -- BILITOT 0.25* -- -- -- -- -- -- -- POCGLU -- < > 227* 242* 254* 205* 171* 239* < > = values in this interval not displayed. ABG: Lab Results Component Value Date FIO2 TRAUMA 09/04/2019 Lab Results Component Value Date/Time SPECIAL NOT REPORTED 10/27/2018 01:44 PM Lab Results Component Value Date/Time CULTURE (A) 10/27/2018 01:44 PM STREPTOCOCCI, BETA HEMOLYTIC GROUP B 10 to 50,000 CFU/ML Radiology: Ct Chest Wo Contrast Result Date: 09/04/2019 1. Nondisplaced fracture of the right T4 anterior inferior endplate with associated osteophyte. No further fractures of the spine. 2. Large 19+ centimeter hematoma of the posterior lateral left chestwall, deep to the musculature as above. Correlate with hemoglobin and hematocrit levels. IV contrast not utilized to assess for any active extravasation. 3. Moderate calcific coronary arterial disease. Ct Thoracic Spine Wo Contrast Result Date: 09/04/2019 1. Nondisplaced fracture of the right T4 anterior inferior endplate with associated osteophyte. No further fractures of the spine. 2. Large 19+ centimeter hematoma of the posterior lateral left chestwall, deep to the musculature as above. Correlate with hemoglobin and hematocrit levels. IV contrast not utilized to assess for any active extravasation. 3. Moderate calcific coronary arterial disease. Physical Examination: General appearance: alert, cooperative and no distress Mental Status: oriented to person, place and time and normal affect Lungs: clear to auscultation bilaterally, normal effort Heart: regular rate and rhythm, no murmur Abdomen: soft, nontender, nondistended, normal bowel sounds, no masses, hepatomegaly, splenomegaly Extremities: no edema, redness, tenderness in the calves Skin: no gross lesions, rashes, induration Assessment: Hospital Problems Last Modified POA * (Principal) Subcutaneous hematoma 09/04/2019 Yes 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) 09/04/2019 Yes Benign essential HTN 09/04/2019 Yes nursing home current use of anticoagulant therapy 09/04/2019 Yes Gastric carcinoma (HCC) (Chronic) 09/04/2019 Yes CKD (chronic kidney disease) stage 3, GFR 30-59 ml/min (HCC) 09/04/2019 Yes History of pulmonary embolus (PE) 09/04/2019 Yes Hematoma 09/04/2019 Yes Acute blood loss anemia 09/05/2019 Yes REJI (acute kidney injury) (HCC) 09/05/2019 No Acute retention of urine 09/05/2019 Yes Plan: 1. IV iron x1 today 2. Continue to monitor renal function 3. Milk of mag, MiraLAX and Senokot as needed for constipation 4. Monitor H&H, transfuse as needed 5. Monitor and control blood pressure 6. Glycemic control, insulin scale 7. Oncology evaluation progress 8. Resume anticoagulation when appropriate due to history recurrent DVT/PE. Will need dose adjustment of his Lovenox for his renal function as well as recent weight loss or initiation of direct acting anticoagulant Cheng Vicente DO 09/06/2019 11:59 AM * Yahaira Gerardo OT - 09/06/2019 11:23 AM EDT Occupational Therapy Not Seen Note DATE: 09/06/2019 Name: Lorenzo Amato : 1970 Patient not available for Occupational Therapy due to: Patient Declined: all home information obtained from pt, but when time for movement pt declined anymovement due to pain Next Scheduled Treatment: check back later as able or 09/07/19 * Jose Antonio Kapadia MD - 09/05/2019 3:14 PM EDT PROGRESS NOTE PATIENT NAME: Lorenzo Amato DATE: 09/05/2019 SURGEON: Dr. 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 There is no operative plan for this patient at this time and Trauma will sign off. 2. If patient starts to develop worsening/new pain or skin changes to the area around the hematoma,please consult Trauma for evaluation. 3. Would recommend tight glucose control with his elevated glucose. 4. Would recommend administering IV fluids with his elevated creatinine SUBJECTIVE Lorenzo Amato is has improved since yesterday. Patient has less pain around the hematoma. Patient is able to eat and drink, has been passing gas. Patient has not been able to urinate and had have a catheter put in last night. OBJECTIVE VITALS: Temp: Temp: 98.5 F (36.9 C)Temp Av.3 F (36.8 C) Min: 97.9 F (36.6 C) Max: 98.5 F (36.9C) BP Systolic (24hrs), Av , Min:89 , Max:134 Diastolic (24hrs), Av, Min:54, Max:79 Pulse Pulse Av.1 Min: 88 Max: 116 Resp Resp Av Min: 17 Max: 17 Pulse ox SpO2 Av % Min: 99 % Max: 99 % GENERAL: alert, no distress NEURO: cranial nerves are grossly intact and no focal neurologic deficits. : deferred LUNGS: clear to ausculation, without wheezes, rales or rhonci HEART: normal rate and regular rhythm BACK: swelling of left lateral back that is improved since yesterday ABDOMEN: soft, non-tender, non-distended, bowel sounds present in all 4 quadrants and no guarding or peritoneal signs present EXTREMITY: no cyanosis, clubbing or edema SKIN: no ecchymosis or rash noted over hematoma I/O last 3 completed shifts: In: - Out: 650 [Urine:650] Drain/tube output: In: - Out: 650 [Urine:650] LAB: CBC: Recent Labs 09/04/19 0045 09/04/1930909/04/19200809/05/198 09/05/19512 WBC 13.7* 15.3* -- -- -- 11.4* HGB 11.7* 11.4* < > 10.1* 8.8* 8.2* HCT 35.8* 35.9* < > 31.8* 28.6* 26.4* MCV 83.3 85.9 -- -- -- 87.1 PLT 326 304 -- -- -- 308 < > = values in this interval not displayed. BMP: Recent Labs 09/04/1930909/05/1951209/05/19 1224 NA 130* 133* 133* K 4.4 4.3 4.8 CL 96* 98 98 CO2 24 BUN 16 29* 30* CREATININE 1.64* 2.42* 2.29* GLUCOSE 224* 242* 254* COAGS: Recent Labs 09/03/19219909/04/1930909/05/19512 APTT 31.2 28.5 -- PROT 7.2 -- -- INR 1.0 1.0 0.9 RADIOLOGY: Ct Chest Wo Contrast Result Date: 09/04/2019 EXAMINATION: CT THORACIC SPINE WO CONTRAST, CT CHEST WO CONTRAST HISTORY: Pain the left side with possible hematoma. History of cancer. COMPARISON: None. TECHNIQUE: CT examination of the chest obtained without IV contrast. Coronal and sagittal reformations were performed. Additional reconstructed images of the entire spine performed. Dose reduction techniques were achieved by using automated exposure control and/or adjustment of mA and/or kV according to patient size and/or use of iterative reconstruction technique. FINDINGS: CT CHEST: Mild dependent atelectatic changes noted. Lungs are otherwise well inflated and clear. There is no pleural effusion, consolidation or acute infiltrate. Thereis no evidence an interstitial lung disease. The major airway is patent. No rib fractures or pneumothorax. Note is made of a large multiloculated hematoma in the left posterior lateral chest wall deep to the latissimus dorsi and oblique muscles. It measures approximately 19.5 x 6.4 x 11.5 cm. Thereis no axillary, hilar or mediastinal adenopathy. No visible mediastinal masses. Normal appearance of the heart without pericardial effusion. There is moderate coronary arterial calcification. Normal appearance of the aorta and great vessels for technique without evidence of aneurysm, dissection, orvasculitis. The thyroid gland is unremarkable. There is no hiatal hernia. The visualized portion ofthe upper abdomen demonstrates no acute or concerning abnormality. CT T Spine: There is a nondisplaced fracture of the anterior inferior endplate and associated osteophyte of the T4 level along the right aspect. This is best appreciated on axial images 37 through 41. There are no further acute fractures. Alignment is normal. The intervertebral disc spaces appear preserved throughout the thoracic spine. There are diffuse flowing osteophytes throughout. No obvious bony neural foraminal or centralcanal stenosis. 1. Nondisplaced fracture of the right T4 anterior inferior endplate with associated osteophyte. No further fractures of the spine. 2. Large 19+ centimeter hematoma of the posterior lateral left chestwall, deep to the musculature as above. Correlate with hemoglobin and hematocrit levels. IV contrast not utilized to assess for any active extravasation. 3. Moderate calcific coronary arterial disease. Ct Thoracic Spine Wo Contrast Result Date: 09/04/2019 EXAMINATION: CT THORACIC SPINE WO CONTRAST, CT CHEST WO CONTRAST HISTORY: Pain the left side with possible hematoma. History of cancer. COMPARISON: None. TECHNIQUE: CT examination of the chest obtained without IV contrast. Coronal and sagittal reformations were performed. Additional reconstructed images of the entire spine performed. Dose reduction techniques were achieved by using automated exposure control and/or adjustment of mA and/or kV according to patient size and/or use of iterative reconstruction technique. FINDINGS: CT CHEST: Mild dependent atelectatic changes noted. Lungs are otherwise well inflated and clear. There is no pleural effusion, consolidation or acute infiltrate. Thereis no evidence an interstitial lung disease. The major airway is patent. No rib fractures or pneumothorax. Note is made of a large multiloculated hematoma in the left posterior lateral chest wall deep to the latissimus dorsi and oblique muscles. It measures approximately 19.5 x 6.4 x 11.5 cm. Thereis no axillary, hilar or mediastinal adenopathy. No visible mediastinal masses. Normal appearance of the heart without pericardial effusion. There is moderate coronary arterial calcification. Normal appearance of the aorta and great vessels for technique without evidence of aneurysm, dissection, orvasculitis. The thyroid gland is unremarkable. There is no hiatal hernia. The visualized portion ofthe upper abdomen demonstrates no acute or concerning abnormality. CT T Spine: There is a nondisplaced fracture of the anterior inferior endplate and associated osteophyte of the T4 level along the right aspect. This is best appreciated on axial images 37 through 41. There are no further acute fractures. Alignment is normal. The intervertebral disc spaces appear preserved throughout the thoracic spine. There are diffuse flowing osteophytes throughout. No obvious bony neural foraminal or centralcanal stenosis. 1. Nondisplaced fracture of the right T4 anterior inferior endplate with associated osteophyte. No further fractures of the spine. 2. Large 19+ centimeter hematoma of the posterior lateral left chestwall, deep to the musculature as above. Correlate with hemoglobin and hematocrit levels. IV contrast not utilized to assess for any active extravasation. 3. Moderate calcific coronary arterial disease. Jose Antonio Kapadia MD 09/05/19, 3:16 PM Associated attestation - Amari Marquez MD - 09/05/2019 8:38 PM EDT I personally evaluated the patient and directed the medical decision making with Resident/RICHARD afterthe physical/radiologic exam and laboratory values were reviewed and confirmed. ANM * Armani Figueroa MD - 09/05/2019 8:10 AM EDT Today's Date: 09/05/2019 Patient Name: Lorenzo Amato Date of admission: 09/04/2019 2:54 AM Patient's age: 49 y.o., 1970 Admission Dx: Subcutaneous hematoma [T14.8XXA] Reason for Consult: management recommendations Requesting Physician: Cheng Vicente DO CHIEF COMPLAINT: Subcutaneous hematoma. Chest wall pain History Obtained From: patient, spouse, electronic medical record History history: Patient seen and examined. Labs and vitals reviewed. Pain is better now. H&H dropped slightly. Awaiting iron studies. Denies pain with deep breaths. Denies any new area of bleeding. HISTORY OF PRESENT ILLNESS: The patient is a 49 y.o. male who is admitted to the hospital for chief complaints of swelling of left chest wall and worsening of pain. 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 Patient has been on octreotide for a few years with symptoms well controlled. Last scan done couple months ago did not show any evidence of disease progression. Patient also has history of recurrent venous thromboembolism. He has history of IVC filter which isoccluded with formation of collaterals. Patient has been on Lovenox and developed subcutaneous hematomas something at the site of the Lovenox shot and sometimes spontaneous subcutaneous hematomas. Patient started noticing pain over his back about 5 days ago which gradually worsened. According the patient she started noticing a bump on the back on the left side yesterday which gradually progressed. CT chest shows large subcutaneous hematoma on the left side. Patient hemoglobin also dropped.CT scan with contrast could not be performed due to CKD. Patient is very reluctant to try direct oral anticoagulants. Past Medical History: has a past medical history of Anemia, Arthritis, Depression, DVT (deep venousthrombosis) (HCC), GI bleed, [place] filter in place, Hypercholesteremia, Hypertension, Liver metastases (HCC), CO (myocardial infarction) (HCC), MS (multiple sclerosis) (HCC), Neuroendocrine tumor, PE (pulmonary embolism), Type II or unspecified type diabetes mellitus without mention of complication, not stated as uncontrolled, Unspecified sleep apnea, and Vitamin D deficiency. Past Surgical History: has a past surgical history that includes Tonsillectomy; Appendectomy; Percutaneous Transluminal Coronary Angio; Colonoscopy; Vasectomy (18 years ago); Thyroid surgery (05/11/13); Coronary angioplasty with stent (2004); and Upper gastrointestinal endoscopy (10/14/2016). Medications: Prior to Admission medications Medication Sig Start Date End Date Taking? Authorizing Provider busPIRone (BUSPAR) 15 MG tablet TAKE ONE TABLET BY MOUTH THREE TIMES A DAY 08/17/19 Lion Carlson MD hydrALAZINE (APRESOLINE) 50 MG tablet TAKE 1 1/2 TABLETS BY MOUTH TWICE DAILY 06/16/19 Lion Carlson MD enoxaparin (LOVENOX) 150 MG/ML injection INJECT 150 MG SUBCUTANEOUSLY TWO TIMES A DAY 06/12/19 MD Damaris metoprolol (LOPRESSOR) 100 MG tablet TAKE 1 TABLET BY MOUTH 2 TIMES A DAY 06/09/19 Lion Carlson MD atorvastatin (LIPITOR) 80 MG tablet TAKE 1 TABLET BY MOUTH ONE TIME DAILY 05/11/19 Lion Carlson MD omeprazole (PRILOSEC) 40 MG delayed release capsule TAKE 1 CAPSULE BY MOUTH 2 TIMES A DAY 04/14/19 Lion Carlson MD SANDOSTATIN LAR DEPOT 30 MG injection INJECT 30 MG INTO THE MUSCLE EVERY 28 DAYS 04/11/19 Trevor Serna MD DULoxetine (CYMBALTA) 60 MG extended release capsule TAKE 1 CAPSULE BY MOUTH ONE TIME A DAY 04/11/19Lion Carlson MD furosemide (LASIX) 20 MG tablet Take 1 tablet by mouth (20 mg) every other day Patient taking differently: See Admin Instructions As needed wt gain swelling 03/06/19 Lion Carlson MD insulin lispro (HUMALOG KWIKPEN) 100 UNIT/ML pen Inject 5 Units into the skin 3 times daily (beforemeals) 03/06/19 Lion Carlson MD Insulin Pen Needle (B-D ULTRAFINE III SHORT PEN) 31G X 8 MM MISC Use as directed with insulin pen needles, up to 5x/day 03/06/19 Lion Carlson MD vitamin D (ERGOCALCIFEROL) 11286 units CAPS capsule Take 1 capsule by mouth once a week 03/06/19 Lion Carlson MD Blood Glucose Monitoring Suppl ([employer] AUTOCODE BLOOD GLUCOSE) w/Device KIT Use as directed to test up to 4 times daily 03/06/19 MD JUDITH Patel LANCETS 28G MISC Use as directed to test up to 4 times daily 03/06/19 Lion Carlson MD blood glucose test strips ([employer] NO CODING BLOOD GLUC) strip 1 each by In Vitro route 4 times daily As needed. 03/06/19 Lion Carlson MD losartan (COZAAR) 25 MG tablet Take 25 mg by mouth 2 times daily Historical Provider, insulin glargine (TOUJEO MAX SOLOSTAR) 300 UNIT/ML injection pen Inject 130 Units into the skin 2 times daily 08/02/18 Lion Carlson MD meclizine (ANTIVERT) 25 MG tablet Take 1 tablet by mouth 3 times daily as needed for Dizziness 02/25/18 Lion Carlson MD Current Facility-Administered Medications Medication Dose Route Frequency Provider Last Rate Last Dose 0.9 % sodium chloride infusion Intravenous Continuous Cheng Vicente, DO fentaNYL (SUBLIMAZE) injection 50 mcg 50 mcg Intravenous Once Lexa Bonilla, DO acetaminophen (TYLENOL) tablet 650 mg 650 mg Oral Q4H PRN WEST Olivares CNP nicotine (NICODERM CQ) 21 MG/24HR 1 patch 1 patch Transdermal Daily PRN WEST Olivares CNP ondansetron (ZOFRAN) injection 4 mg 4 mg Intravenous Q6H PRN WEST Olivares CNP 4 mg at 09/04/19 1511 polyethylene glycol (GLYCOLAX) packet 17 g 17 g Oral Daily PRN Tequila Mota APRN - MARIA EUGENIA sodium chloride flush 0.9 % injection 10 mL 10 mL Intravenous 2 times per day WEST Olivares 10 mL at 09/04/19 214 sodium chloride flush 0.9 % injection 10 mL 10 mL Intravenous PRN WEST Olivares CNP 10 mL at 09/04/19 214 insulin lispro (HUMALOG) injection vial 0-12 Units 0-12 Units Subcutaneous TID WC Cheng Vicente, DO 6 Units at 09/04/19 171 insulin lispro (HUMALOG) injection vial 0-6 Units 0-6 Units Subcutaneous Nightly Cheng Wilsonp, DO 1 Units at 09/04/19 214 glucose (GLUTOSE) 40 % oral gel 15 g 15 g Oral PRN Cheng Wilsonp, DO dextrose 50 % IV solution 12.5 g Intravenous PRN Cheng iWlsonp, DO glucagon (rDNA) injection 1 mg 1 mg Intramuscular PRN Cheng Vicente, DO dextrose 5 % solution 100 mL/hr Intravenous PRN Cheng Wilsonp, DO HYDROcodone-acetaminophen (NORCO) 5-325 MG per tablet 1 tablet 1 tablet Oral Q4H PRN Cheng Wilsonp, DO 1 tablet at 09/05/19 0442 Or HYDROcodone-acetaminophen (NORCO) 5-325 MG per tablet 2 tablet 2 tablet Oral Q4H PRN Cheng Sheltonlop, DO 2 tablet at 09/04/19 1623 atorvastatin (LIPITOR) tablet 80 mg 80 mg Oral Nightly Cheng Sheltonlop, DO 80 mg at 09/04/19 214 busPIRone (BUSPAR) tablet 15 mg 15 mg Oral TID Cheng Wilsonp, DO 15 mg at 09/04/19 2142 DULoxetine (CYMBALTA) extended release capsule 60 mg 60 mg Oral Daily Cheng Sheltonlop, DO 60 mg at 09/04/19 1253 [Held by provider] furosemide (LASIX) tablet 20 mg 20 mg Oral Q48H Cheng Sheltonlop, DO 20 mg at 09/04/19 1254 hydrALAZINE (APRESOLINE) tablet 75 mg 75 mg Oral BID Cheng Sheltonlop, DO 75 mg at 09/04/19 1253 [Held by provider] losartan (COZAAR) tablet 25 mg 25 mg Oral BID Cheng J Nikitalop, DO 25 mg at 09/04/19 1254 meclizine (ANTIVERT) tablet 25 mg 25 mg Oral TID PRN Cheng Sheltonlop, DO metoprolol tartrate (LOPRESSOR) tablet 100 mg 100 mg Oral BID Cheng Patel Orlop, DO 100 mg at 09/04/19 1252 pantoprazole (PROTONIX) tablet 40 mg 40 mg Oral QAM AC Cheng Sheltonlop, DO 40 mg at 09/05/19 0606 vitamin D (ERGOCALCIFEROL) capsule 50,000 Units 50,000 Units Oral Weekly Cheng Sheltonlop, DO 50,000Units at 09/04/19 1252 insulin glargine (LANTUS) injection vial 100 Units 100 Units Subcutaneous BID Cheng Sheltonlop, DO Stopped at 09/05/19 0047 morphine (PF) injection 2 mg 2 mg Intravenous Q4H PRN Cheng Vicente, DO 2 mg at 09/04/19 1939 influenza quadrivalent split vaccine (FLUZONE;FLUARIX;FLULAVAL;AFLURIA) injection 0.5 mL 0.5 mL Intramuscular Once Elvia Obrien, RN LORazepam (ATIVAN) tablet 0.5 mg 0.5 mg Oral Q6H PRN Tequila Mota APRN - CLAIMS ADJUSTOR Allergies: Toradol [ketorolac tromethamine] and Lisinopril Social History: reports that he has never smoked. He has quit using smokeless tobacco. His smokeless tobacco use included chew. He reports that he does not drink alcohol or use drugs. Family History: family history includes Cancer in his mother; Heart Disease in his father. REVIEW OF SYSTEMS: Constitutional: No fever or chills. No night sweats, no weight loss Eyes: No eye discharge, double vision, or eye pain HEENT: negative for sore mouth, sore throat, hoarseness and voice change Respiratory: negative for cough , sputum, dyspnea, wheezing, hemoptysis, chest pain Cardiovascular: negative for chest pain, dyspnea, palpitations, orthopnea, PND Gastrointestinal: negative for nausea, vomiting, diarrhea, constipation, abdominal pain, Dysphagia,hematemesis and hematochezia Genitourinary: negative for frequency, dysuria, nocturia, urinary incontinence, and hematuria Integument: negative for rash, skin lesions, bruises. Hematologic/Lymphatic: negative for easy bruising, bleeding, lymphadenopathy, or petechiae Endocrine: negative for heat or cold intolerance,weight changes, change in bowel habits and hair loss Musculoskeletal: Positive for back pain Neurological: negative for headaches, dizziness, seizures, weakness, numbness PHYSICAL EXAM: BP 124/76 Pulse 100 Temp 97.9 F (36.6 C) (Oral) Resp 17 Ht 5' 9 (1.753 m) Wt 296 lb (134.3 kg) SpO2 99% BMI 43.71 kg/m Temp (24hrs), Av.9 F (36.6 C), Min:97.8 F (36.6 C), Max:97.9 F (36.6 C) General appearance - well appearing, no in pain or distress Mental status - alert and cooperative Eyes - pupils equal and reactive, extraocular eye movements intact Ears - bilateral TM's and external ear canals normal Mouth - mucous membranes moist, pharynx normal without lesions Neck - supple, no significant adenopathy Lymphatics - no palpable lymphadenopathy, no hepatosplenomegaly Chest - clear to auscultation, large tender firm bump noted on the back, left side heart - normal rate, regular rhythm, normal S1, S2, no murmurs Abdomen - soft, nontender, nondistended, no masses or organomegaly Neurological - alert, oriented, normal speech, no focal findings or movement disorder noted Musculoskeletal - no joint tenderness, deformity or swelling Extremities - peripheral pulses normal, no pedal edema, no clubbing or cyanosis Skin - normal coloration and turgor, no rashes, no suspicious skin lesions noted , DATA: Labs: CBC: Recent Labs 09/04/1930909/05/19 0018 09/05/19512 WBC 15.3* -- -- 11.4* HGB 11.4* < > 8.8* 8.2* HCT 35.9* < > 28.6* 26.4* PLT 304 -- -- 308 < > = values in this interval not displayed. BMP: Recent Labs 09/04/1930909/05/19512 NA 130* 133* K 4.4 4.3 CO2 BUN 16 29* CREATININE 1.64* 2.42* LABGLOM 45* 29* GLUCOSE 224* 242* PT/INR: Recent Labs 09/04/1930909/05/19512 PROTIME 10.2 10.1 INR 1.0 0.9 APTT: Recent Labs 09/03/19219909/04/19309 APTT 31.2 28.5 LIVER PROFILE: Recent Labs 09/03/192199 AST 14 ALT 14 LABALBU 4.0 Results for orders placed or performed during the hospital encounter of 09/04/19 TROP/MYOGLOBIN Result Value Ref Range Troponin, High Sensitivity 20 0 - 22 ng/L Troponin T NOT REPORTED <0.03 ng/mL Troponin Interp NOT REPORTED Myoglobin 89 (H) 28 - 72 ng/mL Trauma Panel Result Value Ref Range WBC 15.3 (H) 3.5 - 11.3 k/uL RBC 4.18 (L) 4.21 - 5.77 m/uL Hemoglobin 11.4 (L) 13.0 - 17.0 g/dL Hematocrit 35.9 (L) 40.7 - 50.3 % MCV 85.9 82.6 - 102.9 fL MCH 27.3 25.2 - 33.5 pg MCHC 31.8 28.4 - 34.8 g/dL RDW 15.4 (H) 11.8 - 14.4 % Platelets 304 138 - 453 k/uL MPV 10.4 8.1 - 13.5 fL NRBC Automated 0.0 0.0 per 100 WBC Sodium 130 (L) 135 - 144 mmol/L Potassium 4.4 3.7 - 5.3 mmol/L Chloride 96 (L) 98 - 107 mmol/L CO2 21 20 - 31 mmol/L Anion Gap 13 9 - 17 mmol/L Glucose 224 (H) 70 - 99 mg/dL pH, Marek 7.359 7.320 - 7.420 pCO2, Marek 42.8 39 - 55 pO2, Marek 38.3 30 - 50 HCO3, Venous 23.5 (L) 24 - 30 mmol/L Positive Base Excess, Marek NOT REPORTED 0.0 - 2.0 mmol/L Negative Base Excess, Marek 1.4 0.0 - 2.0 mmol/L O2 Sat, Marek 68.3 60.0 - 85.0 % Total Hb NOT REPORTED 12.0 - 16.0 g/dl Oxyhemoglobin NOT REPORTED 95.0 - 98.0 % Carboxyhemoglobin 1.4 0 - 5 % Methemoglobin NOT REPORTED 0.0 - 1.5 % Pt Temp 37.0 pH, Marek, Temp Adj NOT REPORTED 7.320 - 7.420 pCO2, Marek, Temp Adj NOT REPORTED 39 - 55 mmHg pO2, Marek, Temp Adj NOT REPORTED 30 - 50 mmHg O2 Device/Flow/% NOT REPORTED Respiratory Rate NOT REPORTED Roman Test NOT REPORTED Sample Site NOT REPORTED Pt. Position NOT REPORTED Mode NOT REPORTED Set Rate NOT REPORTED Total Rate NOT REPORTED VT NOT REPORTED FIO2 TRAUMA Peep/Cpap NOT REPORTED PSV NOT REPORTED Text for Respiratory NOT REPORTED NOTIFICATION NOT REPORTED NOTIFICATION TIME NOT REPORTED Blood Bank Specimen BILL FOR SERVICES PERFORMED hCG Qual PT IS MALE NEGATIVE BUN 16 6 - 20 mg/dL CREATININE 1.64 (H) 0.70 - 1.20 mg/dL GFR Non- 45 (L) >60 mL/min GFR 54 (L) >60 mL/min GFR Comment GFR Staging NOT REPORTED Ethanol <10 <10 mg/dL Ethanol percent <0.010 <0.010 % Protime 10.2 9.0 - 12.0 sec INR 1.0 PTT 28.5 20.5 - 30.5 sec Urine Drug Screen Result Value Ref Range Amphetamine Screen, Ur NEGATIVE NEGATIVE Barbiturate Screen, Ur NEGATIVE NEGATIVE Benzodiazepine Screen, Urine NEGATIVE NEGATIVE Cocaine Metabolite, Urine NEGATIVE NEGATIVE Methadone Screen, Urine NEGATIVE NEGATIVE Opiates, Urine POSITIVE (A) NEGATIVE Phencyclidine, Urine NEGATIVE NEGATIVE Propoxyphene, Urine NOT REPORTED NEGATIVE Cannabinoid Scrn, Ur NEGATIVE NEGATIVE Oxycodone Screen, Ur NEGATIVE NEGATIVE Methamphetamine, Urine NOT REPORTED NEGATIVE Tricyclic Antidepressants, Urine NOT REPORTED NEGATIVE MDMA, Urine NOT REPORTED NEGATIVE Buprenorphine Urine NOT REPORTED NEGATIVE Test Information Assay provides medical screening only. The absence of expected drug(s) and/or metabolite(s) may indicate diluted or adulterated urine, limitations of testing or timing of collection. Urinalysis Result Value Ref Range Color, UA YELLOW YELLOW Turbidity UA CLEAR CLEAR Glucose, Ur 2+ (A) NEGATIVE Bilirubin Urine NEGATIVE NEGATIVE Ketones, Urine TRACE (A) NEGATIVE Specific [place], UA 1.035 (H) 1.005 - 1.030 Urine Hgb NEGATIVE NEGATIVE pH, UA 5.5 5.0 - 8.0 Protein, UA 4+ (A) NEGATIVE Urobilinogen, Urine Normal Normal Nitrite, Urine NEGATIVE NEGATIVE Leukocyte Esterase, Urine NEGATIVE NEGATIVE Urinalysis Comments NOT REPORTED Hemoglobin and Hematocrit, Blood Result Value Ref Range Hemoglobin 9.5 (L) 13.0 - 17.0 g/dL Hematocrit 30.0 (L) 40.7 - 50.3 % Platelet function test Result Value Ref Range DARIEL/EPI Clos Time 87 85 - 172 sec Collagen Adenosine-5'-Diphosphate (Adp) Time 87 67 - 112 sec Platelet Function Interp Normal platelet function. If patient clinical history/Physical examination is positive for a bleeding diathesis, recommend repeat testing and/or additional primary hemostasis and/or coagulation studies. Basic Metabolic Panel w/ Reflex to MG Result Value Ref Range Glucose 242 (H) 70 - 99 mg/dL BUN 29 (H) 6 - 20 mg/dL CREATININE 2.42 (H) 0.70 - 1.20 mg/dL Bun/Cre Ratio NOT REPORTED 9 - 20 Calcium 8.6 8.6 - 10.4 mg/dL Sodium 133 (L) 135 - 144 mmol/L Potassium 4.3 3.7 - 5.3 mmol/L Chloride 98 98 - 107 mmol/L CO2 22 20 - 31 mmol/L Anion Gap 13 9 - 17 mmol/L GFR Non- 29 (L) >60 mL/min GFR 35 (L) >60 mL/min GFR Comment GFR Staging NOT REPORTED CBC Result Value Ref Range WBC 11.4 (H) 3.5 - 11.3 k/uL RBC 3.03 (L) 4.21 - 5.77 m/uL Hemoglobin 8.2 (L) 13.0 - 17.0 g/dL Hematocrit 26.4 (L) 40.7 - 50.3 % MCV 87.1 82.6 - 102.9 fL MCH 27.1 25.2 - 33.5 pg MCHC 31.1 28.4 - 34.8 g/dL RDW 16.1 (H) 11.8 - 14.4 % Platelets 308 138 - 453 k/uL MPV 10.2 8.1 - 13.5 fL NRBC Automated 0.0 0.0 per 100 WBC Protime-INR Result Value Ref Range Protime 10.1 9.0 - 12.0 sec INR 0.9 Hemoglobin and Hematocrit, Blood Result Value Ref Range Hemoglobin 10.1 (L) 13.0 - 17.0 g/dL Hematocrit 31.8 (L) 40.7 - 50.3 % Hemoglobin and Hematocrit, Blood Result Value Ref Range Hemoglobin 8.8 (L) 13.0 - 17.0 g/dL Hematocrit 28.6 (L) 40.7 - 50.3 % Microscopic Urinalysis Result Value Ref Range - WBC, UA 2 TO 5 0 - 5 /HPF RBC, UA 2 TO 5 0 - 2 /HPF Casts UA 10 TO 20 0 - 2 /LPF Casts UA HYALINE 0 - 2 /LPF Crystals UA NOT REPORTED None /HPF Epithelial Cells UA 2 TO 5 0 - 5 /HPF Renal Epithelial, Urine NOT REPORTED 0 /HPF Bacteria, UA FEW (A) None Mucus, UA 2+ (A) None Trichomonas, UA NOT REPORTED None Amorphous, UA NOT REPORTED None Other Observations UA NOT REPORTED NOT REQ. Yeast, UA NOT REPORTED None POC Glucose Fingerstick Result Value Ref Range POC Glucose 258 (H) 75 - 110 mg/dL POC Glucose Fingerstick Result Value Ref Range POC Glucose 255 (H) 75 - 110 mg/dL POC Glucose Fingerstick Result Value Ref Range POC Glucose 192 (H) 75 - 110 mg/dL POC Glucose Fingerstick Result Value Ref Range POC Glucose 205 (H) 75 - 110 mg/dL POC Glucose Fingerstick Result Value Ref Range POC Glucose 198 (H) 75 - 110 mg/dL TYPE AND SCREEN Result Value Ref Range Expiration Date 09/07/2019 Arm Band Number [id number] ABO/Rh AB NEGATIVE Antibody Screen NEGATIVE IMAGING DATA: Ct Chest Wo Contrast Result Date: 09/04/2019 EXAMINATION: CT THORACIC SPINE WO CONTRAST, CT CHEST WO CONTRAST HISTORY: Pain the left side with possible hematoma. History of cancer. COMPARISON: None. TECHNIQUE: CT examination of the chest obtained without IV contrast. Coronal and sagittal reformations were performed. Additional reconstructed images of the entire spine performed. Dose reduction techniques were achieved by using automated exposure control and/or adjustment of mA and/or kV according to patient size and/or use of iterative reconstruction technique. FINDINGS: CT CHEST: Mild dependent atelectatic changes noted. Lungs are otherwise well inflated and clear. There is no pleural effusion, consolidation or acute infiltrate. Thereis no evidence an interstitial lung disease. The major airway is patent. No rib fractures or pneumothorax. Note is made of a large multiloculated hematoma in the left posterior lateral chest wall deep to the latissimus dorsi and oblique muscles. It measures approximately 19.5 x 6.4 x 11.5 cm. Thereis no axillary, hilar or mediastinal adenopathy. No visible mediastinal masses. Normal appearance of the heart without pericardial effusion. There is moderate coronary arterial calcification. Normal appearance of the aorta and great vessels for technique without evidence of aneurysm, dissection, orvasculitis. The thyroid gland is unremarkable. There is no hiatal hernia. The visualized portion ofthe upper abdomen demonstrates no acute or concerning abnormality. CT T Spine: There is a nondisplaced fracture of the anterior inferior endplate and associated osteophyte of the T4 level along the right aspect. This is best appreciated on axial images 37 through 41. There are no further acute fractures. Alignment is normal. The intervertebral disc spaces appear preserved throughout the thoracic spine. There are diffuse flowing osteophytes throughout. No obvious bony neural foraminal or centralcanal stenosis. 1. Nondisplaced fracture of the right T4 anterior inferior endplate with associated osteophyte. No further fractures of the spine. 2. Large 19+ centimeter hematoma of the posterior lateral left chestwall, deep to the musculature as above. Correlate with hemoglobin and hematocrit levels. IV contrast not utilized to assess for any active extravasation. 3. Moderate calcific coronary arterial disease. Ct Thoracic Spine Wo Contrast Result Date: 09/04/2019 EXAMINATION: CT THORACIC SPINE WO CONTRAST, CT CHEST WO CONTRAST HISTORY: Pain the left side with possible hematoma. History of cancer. COMPARISON: None. TECHNIQUE: CT examination of the chest obtained without IV contrast. Coronal and sagittal reformations were performed. Additional reconstructed images of the entire spine performed. Dose reduction techniques were achieved by using automated exposure control and/or adjustment of mA and/or kV according to patient size and/or use of iterative reconstruction technique. FINDINGS: CT CHEST: Mild dependent atelectatic changes noted. Lungs are otherwise well inflated and clear. There is no pleural effusion, consolidation or acute infiltrate. Thereis no evidence an interstitial lung disease. The major airway is patent. No rib fractures or pneumothorax. Note is made of a large multiloculated hematoma in the left posterior lateral chest wall deep to the latissimus dorsi and oblique muscles. It measures approximately 19.5 x 6.4 x 11.5 cm. Thereis no axillary, hilar or mediastinal adenopathy. No visible mediastinal masses. Normal appearance of the heart without pericardial effusion. There is moderate coronary arterial calcification. Normal appearance of the aorta and great vessels for technique without evidence of aneurysm, dissection, orvasculitis. The thyroid gland is unremarkable. There is no hiatal hernia. The visualized portion ofthe upper abdomen demonstrates no acute or concerning abnormality. CT T Spine: There is a nondisplaced fracture of the anterior inferior endplate and associated osteophyte of the T4 level along the right aspect. This is best appreciated on axial images 37 through 41. There are no further acute fractures. Alignment is normal. The intervertebral disc spaces appear preserved throughout the thoracic spine. There are diffuse flowing osteophytes throughout. No obvious bony neural foraminal or centralcanal stenosis. 1. Nondisplaced fracture of the right T4 anterior inferior endplate with associated osteophyte. No further fractures of the spine. 2. Large 19+ centimeter hematoma of the posterior lateral left chestwall, deep to the musculature as above. Correlate with hemoglobin and hematocrit levels. IV contrast not utilized to assess for any active extravasation. 3. Moderate calcific coronary arterial disease. 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 Clinically patient does not have any symptoms of carcinoid syndrome. Continue octreotide as previously scheduled Continue to hold anticoagulation. Once H&H is stable we will consider challenging with direct oral anticoagulant in light of history of recurrent venous thrombi embolism and malignancy Pain control symptom management We will continue to follow Discussed with patient and Nurse. Thank you for asking us to see this patient. Armani Figueroa MD This note is created with the assistance of a speech recognition program. While intending to generate a document that actually reflects the content of the visit, the document can still have some errors including those of syntax and sound a like substitutions which may escape proof reading. It such instances, actual meaning can be extrapolated by contextual diversion. * Cheng Vicente, DO - 09/05/2019 6:49 AM EDT [facility] IN-PATIENT SERVICE [facility] Progress Note 09/05/2019 9:32 AM Name: Lorenzo Amato Acct: [id number] Room: 0449/0449-01 IP Day: 1 Admit Date: 09/04/2019 2:54 AM PCP: Lion Carlson MD Code Status: Full Code Subjective: C/C: Chief Complaint Patient presents with Trauma tx from iona, L4 fracture, Interval History Status: improved. Continue left scapular pain but better controlled. Denies any chest pain, shortness of breath, nausea vomiting or other complaints. Brief History: This is a 49-year-old white male who is on chronic anticoagulation with subcutaneous Lovenox that presents with left scapular pain and found to have subcutaneous hematoma. He is admitted for further management and serial H&H monitoring. His pain is better controlled with current oral medications. He denies any other acute complaints. He denies any injury. He does have chronic kidney disease and has had recent weight loss without adjustment of his Lovenox dosing. Review of Systems: Constitutional: negative for chills, fevers, sweats Respiratory: negative for cough, dyspnea on exertion, hemoptysis, shortness of breath, wheezing Cardiovascular: negative for chest pain, chest pressure/discomfort, lower extremity edema, palpitations Gastrointestinal: negative for abdominal pain, constipation, diarrhea, nausea, vomiting Neurological: negative for dizziness, headache Medications: Allergies: Allergies Allergen Reactions Toradol [Ketorolac Tromethamine] Other (See Comments) Pt went into kidney failure Lisinopril Other (See Comments) Cough Current Meds: Scheduled Meds: fentanNYL 50 mcg Intravenous Once sodium chloride flush 10 mL Intravenous 2 times per day insulin lispro 0-12 Units Subcutaneous TID WC insulin lispro 0-6 Units Subcutaneous Nightly atorvastatin 80 mg Oral Nightly busPIRone 15 mg Oral TID DULoxetine 60 mg Oral Daily [Held by provider] furosemide 20 mg Oral Q48H hydrALAZINE 75 mg Oral BID [Held by provider] losartan 25 mg Oral BID metoprolol 100 mg Oral BID pantoprazole 40 mg Oral QAM AC vitamin D 50,000 Units Oral Weekly insulin glargine 100 Units Subcutaneous BID influenza virus vaccine 0.5 mL Intramuscular Once Continuous Infusions: sodium chloride 75 mL/hr at 09/05/19 0917 dextrose PRN Meds: acetaminophen, nicotine, ondansetron, polyethylene glycol, sodium chloride flush, glucose, dextrose, glucagon (rDNA), dextrose, HYDROcodone 5 mg - acetaminophen OR HYDROcodone 5 mg - acetaminophen, meclizine, morphine, LORazepam Data: Past Medical History: has a past medical history of Anemia, Arthritis, Depression, DVT (deep venousthrombosis) (HCC), GI bleed, [place] filter in place, Hypercholesteremia, Hypertension, Liver metastases (HCC), CO (myocardial infarction) (HCC), MS (multiple sclerosis) (HCC), Neuroendocrine tumor, PE (pulmonary embolism), Type II or unspecified type diabetes mellitus without mention of complication, not stated as uncontrolled, Unspecified sleep apnea, and Vitamin D deficiency. Social History: reports that he has never smoked. He has quit using smokeless tobacco. His smokeless tobacco use included chew. He reports that he does not drink alcohol or use drugs. Family History: Family History Problem Relation Age of Onset Cancer Mother ovarian Heart Disease Father Vitals: BP 134/79 Pulse 116 Temp 98.5 F (36.9 C) (Oral) Resp 17 Ht 5' 9 (1.753 m) Wt 296 lb (134.3 kg) SpO2 99% BMI 43.71 kg/m Temp (24hrs), Av.2 F (36.8 C), Min:97.8 F (36.6 C), Max:98.5 F (36.9 C) Recent Labs 09/04/19 16509/04/19200009/04/19222509/05/1916 POCGLU 255* 192* 205* 198* I/O (24Hr): Intake/Output Summary (Last 24 hours) at 09/05/2019 0932 Last data filed at 09/05/2019 0610 Gross per 24 hour Intake Output 650 ml Net -650 ml Labs: Hematology: Recent Labs 09/03/19219909/04/194409/04/1930909/04/19200809/05/191709/05/19 0513 WBC 13.6* 13.7* 15.3* -- -- -- 11.4* RBC 4.45* 4.29* 4.18* -- -- -- 3.03* HGB 12.4* 11.7* 11.4* < > 10.1* 8.8* 8.2* HCT 36.8* 35.8* 35.9* < > 31.8* 28.6* 26.4* MCV 82.8 83.3 85.9 -- -- -- 87.1 MCH 27.8 27.3 27.3 -- -- -- 27.1 MCHC 33.5 32.7 31.8 -- -- -- 31.1 RDW 16.9* 16.1* 15.4* -- -- -- 16.1* PLT 292 326 304 -- -- -- 308 MPV NOT REPORTED NOT REPORTED 10.4 -- -- -- 10.2 INR 1.0 -- 1.0 -- -- -- 0.9 < > = values in this interval not displayed. Chemistry: Recent Labs 09/03/19219909/04/1930909/05/19 0513 NA 134* 130* 133* K 4.0 4.4 4.3 CL 98 96* 98 CO2 23 21 22 GLUCOSE 271* 224* 242* BUN 18 16 29* CREATININE 1.89* 1.64* 2.42* ANIONGAP 13 13 13 LABGLOM 38* 45* 29* GFRAA 46* 54* 35* CALCIUM 9.9 -- 8.6 TROPHS -- 20 -- MYOGLOBIN -- 89* -- Recent Labs 09/03/19 2200 09/04/19 1109 09/04/19 1657 09/04/19200009/04/196 09/05/19 0017 PROT 7.2 -- -- -- -- -- LABALBU 4.0 -- -- -- -- -- AST 14 -- -- -- -- -- ALT 14 -- -- -- -- -- ALKPHOS 89 -- -- -- -- -- BILITOT 0.25* -- -- -- -- -- POCGLU -- 258* 255* 192* 205* 198* ABG: Lab Results Component Value Date FIO2 TRAUMA 09/04/2019 Lab Results Component Value Date/Time SPECIAL NOT REPORTED 10/27/2018 01:44 PM Lab Results Component Value Date/Time CULTURE (A) 10/27/2018 01:44 PM STREPTOCOCCI, BETA HEMOLYTIC GROUP B 10 to 50,000 CFU/ML Radiology: Ct Chest Wo Contrast Result Date: 09/04/2019 1. Nondisplaced fracture of the right T4 anterior inferior endplate with associated osteophyte. No further fractures of the spine. 2. Large 19+ centimeter hematoma of the posterior lateral left chestwall, deep to the musculature as above. Correlate with hemoglobin and hematocrit levels. IV contrast not utilized to assess for any active extravasation. 3. Moderate calcific coronary arterial disease. Ct Thoracic Spine Wo Contrast Result Date: 09/04/2019 1. Nondisplaced fracture of the right T4 anterior inferior endplate with associated osteophyte. No further fractures of the spine. 2. Large 19+ centimeter hematoma of the posterior lateral left chestwall, deep to the musculature as above. Correlate with hemoglobin and hematocrit levels. IV contrast not utilized to assess for any active extravasation. 3. Moderate calcific coronary arterial disease. Physical Examination: General appearance: alert, cooperative and no distress Mental Status: oriented to person, place and time and normal affect Lungs: clear to auscultation bilaterally, normal effort Heart: regular rate and rhythm, no murmur Abdomen: soft, nontender, nondistended, normal bowel sounds, no masses, hepatomegaly, splenomegaly Extremities: no edema, redness, tenderness in the calves Skin: no gross lesions, rashes, induration Assessment: Hospital Problems Last Modified POA * (Principal) Subcutaneous hematoma 09/04/2019 Yes 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) 09/04/2019 Yes Benign essential HTN 09/04/2019 Yes nursing home current use of anticoagulant therapy 09/04/2019 Yes Gastric carcinoma (HCC) (Chronic) 09/04/2019 Yes CKD (chronic kidney disease) stage 3, GFR 30-59 ml/min (HCC) 09/04/2019 Yes History of pulmonary embolus (PE) 09/04/2019 Yes Hematoma 09/04/2019 Yes Acute blood loss anemia 09/05/2019 Yes REJI (acute kidney injury) (HCC) 09/05/2019 No Acute retention of urine 09/05/2019 Yes Plan: 1. Continue to hold anticoagulation 2. Add IV fluids due to acute kidney injury 3. Bill placement per urology 4. Maintain Bill until patient more ambulatory 5. Monitor and control blood pressure 6. Insulin scale for glycemic control 7. Serial H&H 8. Repeat BMP at 1:00 9. BMP in the morning Cheng Vicente DO 09/05/2019 9:32 AM * Elvia Obrien RN - 09/04/2019 4:38 PM EDT Pt's stated pt has not urinated since yesterday . Dr Vicente notified and pt bladder scan performed showing >550 ml. Per , pt has an extensive history with urology and is a difficult cath . Dr Vicente updated. * Lino Stacy MD - 09/04/2019 3:14 PM EDT Trauma Tertiary Survey Admit Date: 09/04/2019 Hospital day 0 Other - lying in bed Past Medical History: Diagnosis Date Anemia Arthritis Depression DVT (deep venous thrombosis) (HCC) GI bleed [place] filter in place 2 years ago Hypercholesteremia Hypertension Liver metastases (HCC) CO (myocardial infarction) (HCC) MS (multiple sclerosis) (HCC) Dr. 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 PE (pulmonary embolism) Type II or unspecified type diabetes mellitus without mention of complication, not stated as uncontrolled Unspecified sleep apnea Vitamin D deficiency Scheduled Meds: fentanNYL 50 mcg Intravenous Once sodium chloride flush 10 mL Intravenous 2 times per day insulin lispro 0-12 Units Subcutaneous TID WC insulin lispro 0-6 Units Subcutaneous Nightly atorvastatin 80 mg Oral Nightly busPIRone 15 mg Oral TID DULoxetine 60 mg Oral Daily furosemide 20 mg Oral Q48H hydrALAZINE 75 mg Oral BID losartan 25 mg Oral BID metoprolol 100 mg Oral BID [START ON 09/05/2019] pantoprazole 40 mg Oral QAM AC vitamin D 50,000 Units Oral Weekly insulin glargine 100 Units Subcutaneous BID Continuous Infusions: dextrose PRN Meds:acetaminophen, nicotine, ondansetron, polyethylene glycol, sodium chloride flush, glucose,dextrose, glucagon (rDNA), dextrose, HYDROcodone 5 mg - acetaminophen OR HYDROcodone 5 mg - acetaminophen, meclizine, morphine Subjective: Patient has complaints left lateral back pain. Pain is moderate, worsens with movement, and some relief by rest. There is not associated numbness, tingling, weakness. Objective: Patient Vitals for the past 8 hrs: BP Temp Temp src Pulse Resp SpO2 Height Weight 09/04/19 1115 129/77 97.8 F (36.6 C) Oral 89 16 100 % 09/04/19 1035 5' 9 (1.753 m) 296 lb (134.3 kg) 09/04/19 1000 (!) 119/94 91 20 98 % No intake/output data recorded. No intake/output data recorded. Radiology: Ct Chest Wo Contrast Result Date: 09/04/2019 1. Nondisplaced fracture of the right T4 anterior inferior endplate with associated osteophyte. No further fractures of the spine. 2. Large 19+ centimeter hematoma of the posterior lateral left chestwall, deep to the musculature as above. Correlate with hemoglobin and hematocrit levels. IV contrast not utilized to assess for any active extravasation. 3. Moderate calcific coronary arterial disease. Ct Thoracic Spine Wo Contrast Result Date: 09/04/2019 1. Nondisplaced fracture of the right T4 anterior inferior endplate with associated osteophyte. No further fractures of the spine. 2. Large 19+ centimeter hematoma of the posterior lateral left chestwall, deep to the musculature as above. Correlate with hemoglobin and hematocrit levels. IV contrast not utilized to assess for any active extravasation. 3. Moderate calcific coronary arterial disease. PHYSICAL EXAM: GCS: 4 - Opens eyes on own 6 - Follows simple motor commands 5 - Alert and oriented Pupil size: Left 3 mm Right 3 mm Pupil reaction: Yes Wiggles fingers: Left Yes Right Yes Hand grasp: Left normal Right normal Wiggles toes: Left Yes Right Yes Plantar flexion: Left normal Right normal General appearance: alert, appears stated age and cooperative Head: Normocephalic, without obvious abnormality, atraumatic Eyes: EOMI, PERRLA Neck: no adenopathy, no carotid bruit, no JVD, supple, symmetrical, trachea midline and thyroid notenlarged, symmetric, no tenderness/mass/nodules Back: large mass of left lateral back without ecchymosis or tenderness to palpation Lungs: clear to auscultation bilaterally Chest wall: no tenderness Heart: regular rate and rhythm, S1, S2 normal, no murmur, click, rub or gallop Abdomen: soft, non-tender; bowel sounds normal; no masses, no organomegaly Extremities: extremities normal, atraumatic, no cyanosis or edema Neurologic: Alert and oriented X 3, normal strength and tone. Normal symmetric reflexes. Normal coordination and gait Spine: Spine Tenderness ROM Cervical 0 /10 Normal Thoracic 0 /10 Normal Lumbar 0 /10 Normal Musculoskeletal Joint Tenderness Swelling ROM Right shoulder absent absent normal Left shoulder absent absent normal Right elbow absent absent normal Left elbow absent absent normal Right wrist absent absent normal Left wrist absent absent normal Right hand grasp absent absent normal Left hand grasp absent absent normal Right hip absent absent normal Left hip absent absent normal Right knee absent absent normal Left knee absent absent normal Right ankle absent absent normal Left ankle absent absent normal Right foot absent absent normal Left foot absent absent normal CONSULTS: NA PROCEDURES: NA INJURIES: - Nondisplaced fracture of the right T4 anterior inferior endplate - Large hematoma of the posterior lateral left chest wall Patient Active Problem List Diagnosis Multiple sclerosis (HCC) CAD (coronary artery disease) Iron deficiency anemia NABOR (obstructive sleep apnea) Mixed hyperlipidemia 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 Continue to monitor H&H 2. Pain management Jose Antonio Kapadia MD Attending Note I have reviewed the above [facility]) and I either performed the singer elements of the medical history and physical exam or was present with the resident when the singer elements of the medical history and physical exam were performed. I have discussed the findings, established the care plan and recommendations with Resident, KATIE RN, bedside nurse. Lino Stacy MD 09/04/2019 11:21 PM * Leila Reed RCP - 09/04/2019 1:32 PM EDT Smoking Cessation - topics covered [] Health Risks [] Benefits of Quitting [] Smoking Cessation [x] Patient has no history of tobacco use [] Patient is former smoker. [x] No need for tobacco cessation education. [] Booklet given [] Patient verbalizes understanding. [] Patient denies need for tobacco cessation education. [] Unable to meet with patient today. Will follow up as able. LEILA REED 1:32 PM * Elvia Obrien RN - 09/04/2019 10:55 AM EDT Pt to floor via stretcher. A/O. Vitals stable. at bedside. Pt on home bipap. * Chico Patel DO - 09/04/2019 3:33 AM EDT Spoke with radiologist, Dr. Zayas, on CT thoracic scan for pt from 09/03/19. Per Dr. Sessions the T4 Fracture does not appear to be acute given CT findings. Plan for admission to medicine service and will follow for L back hematoma. Pt has no traumatic history or events, likely spontaneous hematoma. Hold Lovenox/AC repeat Hgb in am. Ok for diet. Thank you, documented in this encounter* Joshua Barrera RCP - 10/17/2019 1:00 PM EST Cardiac Rehabilitation Physician Order Form Lorenzo Amato 1970 [id number] 10/17/2019 [x] Phase 2 ECG Monitored Cardiac Rehabilitation [] CO [x] PTCA with/without stents [] CABG [] Heart Valve Repair/Replaced [] Stable Angina [] Other: Onset Date: 09/28/19 Cardiac Education Goals: (see individualized treatment plan for specific goals, progression & compliance) [x] Hypertension [x] Physical Inactivity [x] A & P [] Smoking [x] Coping/Depression [x] Medications [] Diabetes [x] Obesity [x] Angina [x] Hyperlipidemia [x] Stress [x] Home Exercise Prescribed Exercise Plan: Target Hr: 90-96 Duration: 31 - 60 Minutes Frequency: 3 Days per week Initial Met Level: 3.0 METS Limitations: NONE Modalities: [x]Treadmill [x] UBE [x] Seated Stepper [x] Rowing Machine [x] Weights/therabands [] Elliptical Aerobic exercise to total 31-60 minutes. Progressing by 1-2 minutes per week and/or 1-2 levels per week per patient tolerance using various modalities; according to Ami Scale 12-16 and THR Introduce 8-12 bilateral UE and LE progressive resistance exercises at 1-3 sets per lift, on 2-3 non-consecutive days using weights/ BLUE therabands AND WTS TO 8-24 # for 8-15 reps to progressive overload by increasing resistance once reps progressed to at least 15 reps on at least 2 occasions Per patient symptoms use: Appropriate ACLS Algorhythm for Cardiac Events. Nitroglycerine 0.4mg SLq 5mins X 3 for angina pain. 12 lead EKG for c/o chest pain or change in rhythm. Nasal O2 for SaO2 <90% or symptoms warranted. Blood sugar monitoring for Hyper/Hypoglycemia symptoms. * Joshua Barrera RCP - 10/17/2019 1:00 PM EST Cardiac Rehab Initial History and Assessment Lorenzo Amato 1970 [id number] 10/17/2019 Primary Diagnosis: PERCUTANEOUS CORONARY INTERVENTION Living Will: [x] Yes [] No On File: [x] Yes [] No [] N/A Durable Power of Honing Machine Try Out Setter: [x] Yes [] No Medical History Past Medical History: Diagnosis Date Anemia Arthritis CAD (coronary artery disease) Chronic kidney disease CKD (chronic kidney disease) Depression Disease of blood and blood forming organ DVT (deep venous thrombosis) (HCC) GERD (gastroesophageal reflux disease) GERD (gastroesophageal reflux disease) GI bleed [place] filter in place 2 years ago History of blood transfusion Hypercholesteremia Hypertension Liver metastases (HCC) CO (myocardial infarction) (HCC) MS (multiple sclerosis) (HCC) Dr. 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 Other disorders of kidney and ureter in diseases classified elsewhere PE (pulmonary embolism) Type II or unspecified type diabetes mellitus without mention of complication, not stated as uncontrolled Unspecified sleep apnea Vitamin D deficiency Past Surgical History: Procedure Laterality Date APPENDECTOMY COLONOSCOPY CORONARY ANGIOPLASTY WITH STENT PLACEMENT 2004 [facility] THYROID SURGERY 05/11/13 Thyroid biopsy TONSILLECTOMY UPPER GASTROINTESTINAL ENDOSCOPY 10/14/2016 VASECTOMY 18 years ago Family History Family History Problem Relation Age of Onset Cancer Mother ovarian Heart Disease Father Arthritis Brother Symptoms: 1. Angina [] None [] Tightness [x] Shortness of Breath / WITH EXERTION [] Pressure [] Nausea [] Sharp, Stabbing [] Pallor [] Indigestion, Heartburn [] Sweaty Where was discomfort located? Precipitating Factors? Relieved by: 2. Arrhythmia [x] None [] Irregular Beats (skips) [] Pacer [] Atrial Fibrillation [] AICD On any Medications? 3. Congestive Heart Failure [] None [] Pedal Edema [] Unusual weight gain [x] SOB with mild exertion [] Fatigue 4. Vascular [x] None [] Carotid Narrowing [] R [] L [] Peripheral claudication [] R [] L 5. Musculoskeletal [] None [] Back Pain Where? [] Joint discomfort Where? CHRONIC [place] SHOULDER AND KNEES Socio-Economic Marital Status: Nutrition Appetite: [] Too Good [x] Good [] Poor Diet: FRUITS VEGGIES AND HOMESTYLE COOKING Eating out 1 times/wk Alcohol Consumption: [] Yes [x] No Type: Frequency: Caffeine: [x] Yes [] No Type: COFFEE AND SODA Amount: 3-4 Water intake per day: GLASS Vitamins/Natural herbal products: SEE MED LIST Psychological [] Depression [] Tearful [] Fearful [x] Cheerful [] Anxious [x] Motivated [] Overwhelmed Treatment: SEE MED LIST Diabetes [x] Yes [] No How lon+ YEARS Latest BS: 214 Frequency of Checks: TWICE Medication: SEE MED LIST Stress Source: Relaxation techniques: WATCH TV, AND USE COMPUTER Hobbies: GRANDKIDS Level of Education [] 8th Grade [] Associates [] Masters [x] High School [] Bachelor [] Other: Depression Screening: [] Have you been feeling sad...down in the dumps? [] Have you lost interest in your job, sports, hobbies, friends? [] Do you often feel tired? [] Do you have trouble sleeping or do you sleep too much? [] Have you been gaining or losing weight? [] Do you often feel down on yourself, that everything is your fault? [] Do you have troubled making decisions or concentrating on your work? [] Do you often feel agitated or like you can barely move? [] Do you ever feel that life isn't worth living? *If greater than 5 symptoms listed, marriage and family social worker notified. Cardiac Rehab Pre - Test 1. The heart is a muscle that acts like a pump to deliver oxygen and blood to the rest of the body. [x] True [] False 2. Healing from the damage of a heart attack is complete in two weeks. [] True [x] False 3. Smoking has no direct effect on the heart - it only effects your lungs. [] True [x] False 4. Using all the salt you want is acceptable for all heart patients. [] True [x] False 5. Chest pain that is relieved by rest or nitroglycerine is called Angina. [x] True [] False 6. Shortness of breath, indigestion, sweating, tightness or pain in your chest are symptoms of a heart attack. [x] True [] False 7. Swelling of the feet and ankles only means you've been on your feet too much. [] True [x] False 8. Saturated fats raised your blood cholesterol level more than anything else in your diet. [x] True [] False 9. High Blood pressure can take care of itself by rest alone. [] True [x] False 10. Walking is one of the best exercises for heart attack patients. [x] True [] False 100% Physical Findings Weight:288.4 Height: 5'8 BMI: 43.9 Cardiovascular- No edema, S1-S2 and apically regular to auscultation, strong bilateral upper and lower extremity pulses at +2, no carotid bruits. Monitor rhythm- SINUS RYTHM VR- 80 MT- .20 QRS- .12 QT- .40 Ejection Fraction- 60% Pulmonary- Clear to auscultation bilaterally through out. Neurological- No deficit noted or reported. Peripheral Vascular- No deficit noted or reported. Muscular Skeletal- No deficit noted or reported. Pain Assessment- Pain Level Tolerable 7/10 on 10 point Likert scale Location/ radiation/ Frequency/ Duration- Endocrine- No deficit noted or reported. Gastrointestinal- No deficit noted or reported. Genitourinary- No deficit noted or reported. Physical limitations- only as per above Goals: - gain strength - increased stamina/strength to 30-50 total exercise by increasing 1-2 level/wk and 1-2 min/wk to achieve THR and RPE 12-16 / INCREASE AVG CARDIO FC BY AT LEAST 0.5-1.0 MET IN THE NEXT 30DAYS AND TOLERATE >31-45 MIN W/IN EX RX TARGETS - LOSE 2-4 LB BODY WT IN NEXT 30 DAYS - Introduce 8-12 bilateral UE and LE progressive resistance exercises at 1-3 sets per lift, on 2-3 non-consecutive days using weights/ blue therabands AND WTS TO 8-24 # for 10-15 reps to progressive overload by increasing resistance once reps progressed to at least 15 reps on at least 2 occasions - MAINTAIN OPTIMAL. BP - Improved cholesterol and Triglycerides - Develop regular exercise 30 min daily, AT LEAST 3-5 DAYS PER WEEK CONSISTENTLY W/IN THE NEXT 30 DAYS - Lower daily fasting blood glucose score to <131 and random after meal scores to <181 at home - To reduce self-reported psycho-social feelings of stress in next 30 days - To eat at least 2 servings of fruit per day and at least 4-5 servings of vegetables per day documented in this encounter* Joshua Barrera, MINING SPECULATOR - 12/18/2019 1:00 PM EST Phase II Cardiac Rehab Individualized Treatment Plan-60 Day Patient Name: Lorenzo Amato Date of Initial Assessment: 11/20/2019 Diagnosis: PCI Onset Date: 09/28/19 Referring Physician: JESSIE CHE M.D Risk Stratification: HIGH Session Number: 8 EXERCISE Stages of Change: [] pre-contemplation [x] Action [] Contemplate [] Maintainence [] Prep [] Relapse Exercise Prescription: Mode: [x] TM [x] UBE [x] STP [] EL [x] R Frequency: 3 DAYS PER WEEK Duration: 31-60 MINUTES Intensity: 3.0 - 4.0 mets Plan/Goal: Increase 1-2 levels/week or 1-2 min/week to achieve target HR and RPE 12-16. Progression: INCREASE DURATION PER ABOVE F.I.T.T. Rx PARAMETERS ON AVG OF 5-10 MIN / 1-2 WEEKS FOR THE FIRST 4-6 WEEKS. AFTER 3-4 WEEKS ARE COMPLETED, CONTINUE TO GRADUALLY INCREASE F.I.T. PARAMETERSGRADUALLY UPWARD AT THE ESTABLISHED DURATION ON AVERAGE 0.5-1.0 METS PER 30 DAYS OVER THE COARSE OFREMAINING PROGRAM ESTABLISHED BY PT-CENTERED GOALS AND GUIDELINES. Target HR 90 - 102 bpm [] Angina with Exertion [x] Resistance Training introduce 8-12 bilateral UE and LE progressive resistance exercises at 1-3 sets per lift, on 2-3 non-consecutive days using weights/ green therabands AND WTS TO 8-24 # for 8-15 reps to progressive overload by increasing resistance once reps progressed to at least 15 reps on at least 2 occasions Hypertension: [x] Yes [] No Resting BP: 130/64 Peak Exercise BP: 142/70 [] Med change? Intervention: Home Exercise: Type: walking Duration: 30-60 MINUTES Frequency: 2-3 DAYS PER WEEK [x] Resistance Training introduce 8-12 bilateral UE and LE progressive resistance exercises at 1-3 sets per lift, on 2-3 non-consecutive days using weights/ green therabands AND WTS TO 8-24 # for 8-15 reps to progressive overload by increasing resistance once reps progressed to at least 15 reps on at least 2 occasions Education: [x] Equipment [place] [x] Self pulse [x] Proper use weights/therabands [x] S/S to report [x] Low Na Diet [x] Warm up/ Cool down [x] BP Medication [x] RPE Scale [x] Understand BP [x] Ex Safety [x] heart specialist class-Home Exercise Target Goal: -Individual Exercise Plan -Bp<130/80 -Aerobic active 30 + minutes 5-7 days per week Nutrition Stages of Change: [] pre-contemplation [x] Action [] Contemplate [] Maintainence [] Prep [] Relapse Lipids: NO NEW VALUES Total Cholesterol: Triglycerides: HDL: LDL: [] Med Change? Diabetes: [x] Yes [] No Random Bs: 204 HbA1c: 7.6% [] Med Change? Weight Management: Current Wt 281 LB Wt Goal: 1-2 lbs/wk Intervention: [] Dietitian Consult [x] Nurse/Patient Discussion [x] Diet Class [] Referred to Diabetes Education Education: [] S&S hypo/hyperglycemia [x] Low fat/low cholesterol diet [x] Weight loss methods [] Relate Diabetes/CAD [x] Eating heart healthy handout Target Goal: -LDL-C<100 if triglycerides are > 200 -LDL-C < 70 for high risk patients -HbA1c < 7% -BMI < 25 Education Stages of Change: [] pre-contemplation [x] Action [] Contemplate [] Maintainence [] Prep [] Relapse Family support: [x] Yes [] No Tobacco use: [] Yes [x] No Intervention: [] Referred to smoking cessation counselor [] Individual education and counseling [] Tobacco adjunct [] Informed of education class schedule Education: [x] Risk Factors/Modifications [x] Psychological aspects [x] Angina [x] Medications [] CHF [x] Cardiac A&P Target Goal: -Complete cessation of tobacco use (if applicable) -Continued risk factor modifications -Recognizing signs/symptoms to report -Proper use of meds Psychosocial Stages of Change: [] pre-contemplation [x] Action [] Contemplate [] Maintainence [] Prep [] Relapse Intervention: [] Psych Consult/social worker masters [x] Uses stress management skills [] Physician Referral [x] Stress management class [] Med Change? Education: [x] Coping Techniques [x] Relaxation techniques [x] S/S of Depression Target Goal: -Assess presence or absence of depression using a valid screening tool. -Maximize coping skills. -Positive support system. Preventative Medication: [x] Aspirin [x] Beta Blockade [x] Statin or other lipid lowering agent [] Clopidogrel [] KWAKU Inhibitor [x] Other anticoagulation medications Fall Risk assess: [x] Yes [] No / REMAINS LOW RISK Assistive Device: [] Cane [] Walker [] Wheel Chair [] Gait belt Patient/Program goal: - gain strength - increased stamina/strength to 30-50 total exercise by increasing 1-2 level/wk and 1-2 min/wk to achieve THR and RPE 12-16 / INCREASE AVG CARDIO FC BY AT LEAST 0.5-1.0 MET IN THE NEXT 30DAYS AND TOLERATE >31-45 MIN W/IN EX RX TARGETS / MEETING GOAL / AVG FC INCREASED TO 3.8 METS / CONTINUE TO PROGRESS GOAL WRITTEN OVER THE NEXT 30 DAYS - LOSE 2-4 LB BODY WT IN NEXT 30 DAYS / GOAL MET / STARTING WEIGHT WAS 286.2, WEIGHT AFTER 30 DAYS WAS 281LB / COMNTINUE TO PROGRESS GOAL WRITTEN OVER THE NEXT 30 DAYS - Introduce 8-12 bilateral UE and LE progressive resistance exercises at 1-3 sets per lift, on 2-3 non-consecutive days using weights/ blue therabands AND WTS TO 8-24 # for 10-15 reps to progressive overload by increasing resistance once reps progressed to at least 15 reps on at least 2 occasions /NOT MEETING GOAL / PT HAS ONLY CAME TO REHAB TWICE SO THERABANDS HAVE YET TO BE INTRODUCED - MAINTAIN OPTIMAL. BP / MEETING GOAL / CONTINUE TO PROGRESS GOAL WRITTEN OVER THE NEXT 30 DAYS - Improved cholesterol and Triglycerides / NO NEW VALUES - Develop regular exercise 30 min daily, AT LEAST 3-5 DAYS PER WEEK CONSISTENTLY W/IN THE NEXT 30 DAYS / NOT MEETING GOAL / PT HAS CAME TO REHAB 6 IN 30 DAYS - Lower daily fasting blood glucose score to <131 and random after meal scores to <181 at home NOT MEETING GOAL / LAST BS WAS 204 / CONTINUE TO PROGRESS GOAL WRITTEN OVER THE NEXT 30 DAYS - To reduce self-reported psycho-social feelings of stress in next 30 days / MEETING GOAL / CONTINUE TO PROGRESS GOAL WRITTEN OVER THE NEXT 30 DAYS - To eat at least 2 servings of fruit per day and at least 4-5 servings of vegetables per day / MEETING GOAL / CONTINUE TO PROGRESS GOAL WRITTEN OVER THE NEXT 30 DAYS Physician Changes/Comments: Cardiac Rehab Staff JOSHUA BARRERA CONCRETE POINTER documented in this encounter* Joshua Barrera, RUMA - 01/15/2020 1:00 PM EST Phase II Cardiac Rehab Individualized Treatment Plan-90 Day Patient Name: Lorenzo Amato Date of Initial Assessment: 11/20/2019 Diagnosis: PCI Onset Date: 09/28/19 Referring Physician: JESSIE CHE M.D Risk Stratification: HIGH Session Number: 10 EXERCISE Stages of Change: [] pre-contemplation [x] Action [] Contemplate [] Maintainence [] Prep [] Relapse Exercise Prescription: Mode: [x] TM [x] UBE [x] STP [] EL [x] R Frequency: 3 DAYS PER WEEK Duration: 31-60 MINUTES Intensity: 4.1 - 4.6 METS Plan/Goal: Increase 1-2 levels/week or 1-2 min/week to achieve target HR and RPE 12-16. Progression: INCREASE DURATION PER ABOVE F.I.T.T. Rx PARAMETERS ON AVG OF 5-10 MIN / 1-2 WEEKS FOR THE FIRST 4-6 WEEKS. AFTER 3-4 WEEKS ARE COMPLETED, CONTINUE TO GRADUALLY INCREASE F.I.T. PARAMETERSGRADUALLY UPWARD AT THE ESTABLISHED DURATION ON AVERAGE 0.5-1.0 METS PER 30 DAYS OVER THE COARSE OFREMAINING PROGRAM ESTABLISHED BY PT-CENTERED GOALS AND GUIDELINES. Target HR 90 - 102 BPM [] Angina with Exertion [x] Resistance Training introduce 8-12 bilateral UE and LE progressive resistance exercises at 1-3 sets per lift, on 2-3 non-consecutive days using weights/ GREEN therabands AND WTS TO 8-24 # for 8-15 reps to progressive overload by increasing resistance once reps progressed to at least 15 reps on at least 2 occasions Hypertension: [x] Yes [] No Resting BP: 136/78 Peak Exercise BP: 136/74 [] Med change? Intervention: Home Exercise: Type: WALKING Duration: 30-60 MINUTES Frequency: 2-3 DAYS PER WEEK [x] Resistance Training introduce 8-12 bilateral UE and LE progressive resistance exercises at 1-3 sets per lift, on 2-3 non-consecutive days using weights/ GREEN therabands AND WTS TO 8-24 # for 8-15 reps to progressive overload by increasing resistance once reps progressed to at least 15 reps on at least 2 occasions Education: [x] Equipment [place] [x] Self pulse [x] Proper use weights/therabands [x] S/S to report [x] Low Na Diet [x] Warm up/ Cool down [x] BP Medication [x] RPE Scale [x] Understand BP [x] Ex Safety [x] heart specialist class-Home Exercise Target Goal: -Individual Exercise Plan -Bp<130/80 -Aerobic active 30 + minutes 5-7 days per week Nutrition Stages of Change: [] pre-contemplation [x] Action [] Contemplate [] Maintainence [] Prep [] Relapse Lipids: NO NEW VALUES Total Cholesterol: Triglycerides: HDL: LDL: [] Med Change? Diabetes: [x] Yes [] No Random Bs: 204 HbA1c: 7.6 % [] Med Change? Weight Management: Current Wt 278 LB Wt Goal: 1-2 lbs/wk Intervention: [] Dietitian Consult [x] Nurse/Patient Discussion [x] Diet Class [] Referred to Diabetes Education Education: [] S&S hypo/hyperglycemia [x] Low fat/low cholesterol diet [x] Weight loss methods [] Relate Diabetes/CAD [x] Eating heart healthy handout Target Goal: -LDL-C<100 if triglycerides are > 200 -LDL-C < 70 for high risk patients -HbA1c < 7% -BMI < 25 Education Stages of Change: [] pre-contemplation [x] Action [] Contemplate [] Maintainence [] Prep [] Relapse Family support: [x] Yes [] No Tobacco use: [] Yes [x] No Intervention: [] Referred to smoking cessation counselor [] Individual education and counseling [] Tobacco adjunct [] Informed of education class schedule Education: [x] Risk Factors/Modifications [x] Psychological aspects [x] Angina [x] Medications [] CHF [x] Cardiac A&P Target Goal: -Complete cessation of tobacco use (if applicable) -Continued risk factor modifications -Recognizing signs/symptoms to report -Proper use of meds Psychosocial Stages of Change: [] pre-contemplation [x] Action [] Contemplate [] Maintainence [] Prep [] Relapse Intervention: [] Psych Consult/social worker masters [x] Uses stress management skills [] Physician Referral [x] Stress management class [] Med Change? Education: [x] Coping Techniques [x] Relaxation techniques [x] S/S of Depression Target Goal: -Assess presence or absence of depression using a valid screening tool. -Maximize coping skills. -Positive support system. Preventative Medication: [] Aspirin [] Beta Blockade [] Statin or other lipid lowering agent [] Clopidogrel [] KWAKU Inhibitor [] Other anticoagulation medications Fall Risk assess: [x] Yes [] No / REMAINS LOW RISK Assistive Device: [] Cane [] Walker [] Wheel Chair [] Gait belt Patient/Program goal: -- gain strength - increased stamina/strength to 30-50 total exercise by increasing 1-2 level/wk and 1-2 min/wk to achieve THR and RPE 12-16 / INCREASE AVG CARDIO FC BY AT LEAST 0.5-1.0 MET IN THE NEXT 30DAYS AND TOLERATE >31-45 MIN W/IN EX RX TARGETS / MEETING GOAL / AVG FC INCREASED TO 4.1 METS FROM 3.8 METS / CONTINUE TO PROGRESS GOAL WRITTEN OVER THE NEXT 30 DAYS - LOSE 2-4 LB BODY WT IN NEXT 30 DAYS / GOAL MET / STARTING WEIGHT WAS 286.2, WEIGHT AFTER 30 DAYS WAS 281LB / COMNTINUE TO PROGRESS GOAL WRITTEN OVER THE NEXT 30 DAYS - Introduce 8-12 bilateral UE and LE progressive resistance exercises at 1-3 sets per lift, on 2-3 non-consecutive days using weights/ blue therabands AND WTS TO 8-24 # for 10-15 reps to progressive overload by increasing resistance once reps progressed to at least 15 reps on at least 2 occasions /NOT MEETING GOAL / PT HAS ONLY CAME TO REHAB TWICE SO THERABANDS HAVE YET TO BE INTRODUCED - MAINTAIN OPTIMAL. BP / MEETING GOAL / CONTINUE TO PROGRESS GOAL WRITTEN OVER THE NEXT 30 DAYS - Improved cholesterol and Triglycerides / NO NEW VALUES - Develop regular exercise 30 min daily, AT LEAST 3-5 DAYS PER WEEK CONSISTENTLY W/IN THE NEXT 30 DAYS / NOT MEETING GOAL / PT HAS CAME TO REHAB 6 IN 30 DAYS - Lower daily fasting blood glucose score to <131 and random after meal scores to <181 at home NOT MEETING GOAL / LAST BS WAS 204 / CONTINUE TO PROGRESS GOAL WRITTEN OVER THE NEXT 30 DAYS - To reduce self-reported psycho-social feelings of stress in next 30 days / MEETING GOAL / CONTINUE TO PROGRESS GOAL WRITTEN OVER THE NEXT 30 DAYS - To eat at least 2 servings of fruit per day and at least 4-5 servings of vegetables per day / MEETING GOAL / CONTINUE TO PROGRESS GOAL WRITTEN OVER THE NEXT 30 DAYS Physician Changes/Comments: Cardiac Rehab Staff JOSHUA BARRERA CONCRETE POINTER documented in this encounter* Joshua Barrera RCP - 03/21/2020 2:30 PM EDT Phase II Cardiac Rehab Individualized Treatment Plan-Discharge Patient Name: Lorenzo Amato Date of Initial Assessment: 10/17/19 Diagnosis: Percutaneous Coronary Intervention Onset Date: 09/28/19 Referring Physician: JESSIE CHE M.D. Risk Stratification: HIGH Session Number: 10 EXERCISE Stages of Change: [] pre-contemplation [x] Action [] Contemplate [] Maintainence [] Prep [x] Relapse Exercise Prescription: Mode: [x] TM [x] UBE [x] STP [] EL [x] R Frequency: 3 DAYS PER WEEK Duration: 31-60 MINUTES Intensity: 4.1 - 4.6 METS Progression: INCREASE DURATION PER ABOVE F.I.T.T. Rx PARAMETERS ON AVG OF 5-10 MIN / 1-2 WEEKS FOR THE FIRST 4-6 WEEKS. AFTER 3-4 WEEKS ARE COMPLETED, CONTINUE TO GRADUALLY INCREASE F.I.T. PARAMETERSGRADUALLY UPWARD AT THE ESTABLISHED DURATION ON AVERAGE 0.5-1.0 METS PER 30 DAYS OVER THE COARSE OFREMAINING PROGRAM ESTABLISHED BY PT-CENTERED GOALS AND GUIDELINES. Target HR 90 - 102 BPM [] Angina with Exertion [x] Resistance Training introduce 8-12 bilateral UE and LE progressive resistance exercises at 1-3 sets per lift, on 2-3 non-consecutive days using weights/ GREEN therabands AND WTS TO 8-24 # for 8-15 reps to progressive overload by increasing resistance once reps progressed to at least 15 reps on at least 2 occasions Hypertension: [x] Yes [] No Resting BP: 138/78 Peak Exercise BP: 136/74 [] Med Change? Intervention: Home Exercise: Type: WALKING Duration: 30-60 minutes Frequency: 2-3 DAYS PER WEEK [x] Resistance Training introduce 8-12 bilateral UE and LE progressive resistance exercises at 1-3 sets per lift, on 2-3 non-consecutive days using weights/ GREEN therabands AND WTS TO 8-24 # for 8-15 reps to progressive overload by increasing resistance once reps progressed to at least 15 reps on at least 2 occasions Depression Screening: NOT COMPLETED D/T PATIENT DID NOT RETURN TO COMPLETE PROGRAM [] Have you been feeling sad...down in the dumps? [] Have you lost interest in your job, sports, hobbies, friends? [] Do you often feel tired? [] Do you have trouble sleeping or do you sleep too much? [] Have you been gaining or losing weight? [] Do you often feel down on yourself, that everything is your fault? [] Do you have troubled making decisions or concentrating on your work? [] Do you often feel agitated or like you can barely move? [] Do you ever feel that life isn't worth living? *If greater than 5 symptoms listed, marriage and family social worker notified. Education: [] Education Goals met Target Goal: -Individual Exercise Plan -Bp< 130/80 -Aerobic active 30 + minutes 5-7 days per week Nutrition Stages of Change: [] pre-contemplation [x] Action [] Contemplate [] Maintainenc [] Prep [x] Relapse Lipids: NO NEW VALUES Diabetes: [x] Yes [] No FBS: 204 HbA1c:7.6% [] Med Change? Random BS: [] BS in range Weight Management: Weight: 278LB Height: 68IN BMI: 42.3 Wt Goal: 1-2 lbs/wk Special Diet: Special Diet: 1,800 Kcal / day, 2 GM Na+, 30% total fat, <10% saturated fat, 25-35GM fiber, cholesterol reduced, balanced nutrition plan to be promoted and taught in rehab Rate My Plate: NOT COMPLETED D/T PATIENT DID NOT RETURN TO COMPLETE PROGRAM Intervention: [] Dietitian Consult [x] Nurse/Patient Discussion [x] Diet Class [] Referred to Diabetes Education Education: [] Education Goals met NOT COMPLETED D/T PATIENT DID NOT RETURN TO COMPLETE PROGRAM Target Goal: -LDL-C<100 if triglycerides are > 200 -LDL-C < 70 for high risk patients -HbA1c < 7% -BMI < 25 Education Stages of Change: [] pre-contemplation [x] Action [] Contemplate [] Maintainence [] Prep [x] Relapse Knowledge test score: NOT COMPLETED D/T PATIENT DID NOT RETURN TO COMPLETE PROGRAM Family support: [x] Yes [] No Tobacco use: [] Yes [x] No Intervention: [] Referred to smoking cessation counselor [] Individual education and counseling [] Tobacco adjunct [] Informed of education class schedule Education: [] Education goals met NOT COMPLETED D/T PATIENT DID NOT RETURN TO COMPLETE PROGRAM Target Goal: -Complete cessation of tobacco use (if applicable) -Continued risk factor modifications -Recognizing signs/symptoms to report -Proper use of meds Psychosocial Stages of Change: [] pre-contemplation [x] Action [] Contemplate [] Maintainence [] Prep [x] Relapse Psychosocial Test: Tool Used: Jeremias Quality of Life Score: NOT COMPLETED D/T PATIENT DID NOT RETURN TO COMPLETE PROGRAM Depression screening score PHQ-9: NOT COMPLETED D/T PATIENT DID NOT RETURN TO COMPLETE PROGRAM []Medication change? NONE Education: [] Education Goals met NOT COMPLETED D/T PATIENT DID NOT RETURN TO COMPLETE PROGRAM Target Goal: -Assess presence or absence of depression using a valid screening tool. -Maximize coping skills. -Positive support system. Preventative Medication: [x] Aspirin [x] Beta Blockade [x] Statin or other lipid lowering agent [] Clopidogrel [] KWAKU Inhibitor [x] Other anticoagulation medications Fall Risk assess: [x] Yes [] No / LOW FALL RISK Assistive Device: [] Cane [] Walker [] Wheel Chair [] Gait belt Patient/Program goal: GOALSNOT COMPLETED OR ACHIEVED D/T PATIENT NOT RETURNING TO COMPLETE PROGRAM AND INCONSISTENCY OF VISITS - gain strength - increased stamina/strength to 30-50 total exercise by increasing 1-2 level/wk and 1-2 min/wk to achieve THR and RPE 12-16 / INCREASE AVG CARDIO FC BY AT LEAST 0.5-1.0 MET IN THE NEXT 30DAYS AND TOLERATE >31-45 MIN W/IN EX RX TARGETS - LOSE 2-4 LB BODY WT IN NEXT 30 DAYS - Introduce 8-12 bilateral UE and LE progressive resistance exercises at 1-3 sets per lift, on 2-3 non-consecutive days using weights/ blue therabands AND WTS TO 8-24 # for 10-15 reps to progressive overload by increasing resistance once reps progressed to at least 15 reps on at least 2 occasions - MAINTAIN OPTIMAL. BP - Improved cholesterol and Triglycerides - Develop regular exercise 30 min daily, AT LEAST 3-5 DAYS PER WEEK CONSISTENTLY W/IN THE NEXT 30 DAYS - Lower daily fasting blood glucose score to <131 and random after meal scores to <181 at home - To reduce self-reported psycho-social feelings of stress in next 30 days - To eat at least 2 servings of fruit per day and at least 4-5 servings of vegetables per day Physician Changes/Comments: Cardiac Rehab Staff JOSHUA BARRERA, CONCRETE POINTER documented in this encounter* Joshua Barrera, [facility] - 02/12/2020 1:00 PM EDT This rehabilitation patient has been placed on hold effective 02/05/2020 due to cardiopulmonary rehabilitation department at [facility] is imposing a mandated closure related to the Covid-19 threat. Individualized treatment plans for each patient will be updated and restored uponreopening of cardiopulmonary rehabilitation. documented in this encounter* Eli Shaikh RN - 09/29/2019 5:41 PM EST Report called to [facility] at [facility]. * Eli Shaikh RN - 09/29/2019 5:00 PM EST [facility] Emergency transport here and report given. Pt leaves per cart with personal belongingsin stable condition. * Blanca Haskins RN - 09/29/2019 3:09 PM EST [facility] Emergency Transport called, ETA 45 - 60 minutes. * Eli Shaikh RN - 09/29/2019 2:45 PM EST [facility] calls and states that their ETA is [phone]. * Blanca Haskins RN - 09/29/2019 2:30 PM EST Sourav, nursing supervisor publications production at [place] given okay to arrange transportation for patient. Access center called to arrange transportation. * Eli Shaikh RN - 09/29/2019 1:45 PM EST No changes in assessment. * Nyasia Jacinto LSW - 09/29/2019 11:32 AM EST SW met with pt, and family to complete assessment and quality rounds. Pt is alert and orientedand very quiet during assessment and only answers questions with single answers. reports that pt's stress test came back positive and they are being transferred to [facility]. Pt is upset with this and he was also there about a week ago with a hematoma and doesn't want to go back. SW provided support and encouragement. Pt lives with his spouse and their adult son and they have custody of his 3 children as well. Pt does not utilize any community services at this time. Pt has a wheelchair and cane at home if needed, but is not currently using them. Pt drives and family is also able to assist with transportation as needed. Pt is a DNRCCA code status and follows with Dr Carlson as his PCP. Pt has advance directives and they are on file in his chart. Pt reports that he is able to obtain his medications without any concerns regarding cost. Plan for pt to transfer to [facility] at this time. Pt and spouse plan for him to ultimately return homeafter his hospitalization. SW will continue to remain available. EILEEN Bermudez 09/29/2019 * Eli Shaikh RN - 09/29/2019 11:30 AM EST Assessment unchanged at this time. Pt denies any complaints at this time. * Nyasia Jacinto LSW - 09/29/2019 11:07 AM EST Quality flow rounds held on 09/29/19 Lorenzo Amato is admitted for Chest pain Length of stay 0. Education: Needed Education:disease process Do you have any questions regarding your plan of care while at the hospital? denies Planned Disposition: [x] Home when able -possible transfer to [facility] for cardiac cath [] Swing Bed [] ECF/SNF [] Other/TBD Barriers to Discharge: Can you afford your medications? yes Do you have transportation to follow up appointments? Drives and family can assist. Do you need any new equipment at home? None Current equipment includes has wheelchair and cane at home if needed, not currently using. Do you have a living will or durable power of deputy prosecuting attorney for healthcare? yes If yes do we have a copy on file? yes Do you or your family have any questions or concerns we haven't already discussed? Denies Education And Development Manager and pt and family work together to complete assessment. * Abdirizak Oro MD - 09/29/2019 10:37 AM EST Cardiology His myoview was markedly abnormal. I feel there is a fairly large area of proximal anterior lateralischemia. Appears to have inferior wall scar, which correlates with his known previous inf-lateral CO in 2005. However, appears to be significantly different than in 2011. I view of his history, and lack of symptoms prior to his previous CO, would consider transferring to [facility] for possible cath. Have discussed this with him and his . Obviously, he is at increased risk for cath in view of renal dysfunction and recent hematoma. However, Hgb has been stable. He has normal LV function, and therefore, could be well hydrated prior to a cath, which probably would be done on Wednesday. Thanks, Abdirizak Oro MD * Everton Oliva, RD, LD - 09/29/2019 10:11 AM EST Nutrition Assessment Type and Reason for Visit: Initial Nutrition Recommendations: Encourage consistent meals, carbs and lower fat foods Nutrition Assessment: Altered nutrition related lab values, r/t endocrine dysfunction, AEB suboptimally controlled diabetes. Denies questions or concerns with diabetes (physician noting improvements in control) eating or heart healthy eating. Bordering significant weight declines from one month agonoted. Noted gastic CA history and liver mets. Likely to go home today. Malnutrition Assessment: Malnutrition Status: At risk for malnutrition Context: Acute illness or injury Findings of the 6 clinical characteristics of malnutrition (Minimum of 2 out of 6 clinical characteristics is required to make the diagnosis of moderate or severe Protein Calorie Malnutrition based on AND/ASPEN Guidelines): 1. Energy Intake-Greater than 75% of estimated energy requirement, 2. Weight Loss-2% loss or greater, in 1 month 3. Fat Loss-No significant subcutaneous fat loss, 4. Muscle Loss-No significant muscle mass loss, 5. Fluid Accumulation-No significant fluid accumulation, 6. [place] Guide Strength-Not measured Nutrition Risk Level: Low, Moderate Nutrition Diagnosis: Problem: Altered nutrition-related lab values Etiology: related to Endocrine dysfunction ? Signs and symptoms: as evidenced by Lab values Objective Information: Nutrition-Focused Physical Findings: obese Wound Type: None Current Nutrition Therapies: Oral Diet Orders: Carb Control 4 Carbs/Meal Oral Diet intake: 76-100% Oral Nutrition Supplement (ONS) Orders: None Anthropometric Measures: Ht: 5' 9 (175.3 cm) Current Body Wt: 286 lb 6.4 oz (129.9 kg) Admission Body Wt: 284 lb (128.8 kg) Usual Body Wt: 296 lb (134.3 kg) % Weight Change: , 4.9% decline in last month (questionable intention) Lynch Body Wt: 160 lb (72.6 kg), % Lynch Body 179% BMI Classification: BMI > or equal to 40.0 Obese Class III Lab Results Component Value Date NA 138 09/29/2019 K 4.3 09/29/2019 CL 103 09/29/2019 CO2 24 09/29/2019 BUN 23 (H) 09/29/2019 CREATININE 1.88 (H) 09/29/2019 GLUCOSE 151 (H) 09/29/2019 CALCIUM 9.3 09/29/2019 PROT 7.5 09/28/2019 LABALBU 4.0 09/28/2019 BILITOT 0.65 09/28/2019 ALKPHOS 106 09/28/2019 AST 13 09/28/2019 ALT 12 09/28/2019 LABGLOM 38 (L) 09/29/2019 GFRAA 46 (L) 09/29/2019 Lab Results Component Value Date LABA1C 8.1 (H) 09/28/2019 Lab Results Component Value Date EAG 186 09/28/2019 Nutrition Interventions: Continue current diet Continued Inpatient Monitoring, Education declined, Coordination of Care Nutrition Evaluation: Evaluation: Goals set Goals: PO >75% meals with heart healthy and consistent carb choices Monitoring: Meal Intake, Pertinent Labs, Weight, I&O, Patient/Family Education Contact Number: [phone] * Eli Shaikh RN - 09/29/2019 9:30 AM EST Returns to room, pt continues to deny any complaints at this time. at bedside. * Blanca Haskins RN - 09/29/2019 8:38 AM EST Lexiscan completed, tolerated well. * Blanca Haskins RN - 09/29/2019 8:37 AM EST Continues to deny chest pain or pressure. Relates shortness of breath and lightheadedness almost gone. * Blanca Haskins RN - 09/29/2019 8:35 AM EST Continues to deny chest pain or pressure. Relates shortness of breath getting better. Complains of lightheadedness. * Blanca Haskins RN - 09/29/2019 8:32 AM EST Denies chest pain or pressure. Complains of shortness of breath. * Eli Shaikh RN - 09/29/2019 8:00 AM EST To stress test per wheelchair. Pt denies any complaints at this time. * Jose Antonio Dos Santos RN - 09/29/2019 4:46 AM EST Pt resting in bed at this time with CPAP on. Pt denies any sob or chest pain. Pt denies any needs at the moment. Call light in reach. Will continue to monitor. * Fadumo Duncan RN - 09/29/2019 12:00 AM EST Pt made NPO. * Abdirizak Oro MD - 09/28/2019 4:58 PM EST Cardiology 1. Chest pain - question angina 2. CAD s/p stenting of Cx in 2005 3. IDDM 4. CRI 5. Gastric carcinoid with liver mets 6. Pulmonary embolus on Eliquis 7. Large left lateral chest wall hematoma on 09-04-2017 requiring transfusion. 8. Normal LV function with EF 60% with severe LVH. No significant right sided chamber enlargement. Trop neg EKG NSR with NSST-T changes He has hx of CAD s/p stenting of LAD in 2005. No cath since that time. He developed chest pain today at 10 AM. Has been feeling weak since his hematoma. Will do lexiscan in AM. LV function normal. If any abnormality on myoview would need to consider cath in view of his history. Thanks, Abdirizak Oro MD documented in this encounter* Mei Del Rosario RN - 10/07/2019 2:57 PM EST Patient was discharged and taken out in a wheelchair with Sergio to their home residence * Mei Del Rosario RN - 10/07/2019 2:56 PM EST Education And Development Manager went over stent card & booklet. Patient has with discharge paperwork * Mei Del Rosario RN - 10/07/2019 2:54 PM EST Meds to beds delivered only the one medication ticagrelor (Brilinta) to the patient's room and the patient has the medication with him * Kemar Ponce DO - 10/07/2019 11:01 AM EST [facility] Progress Note Date: 10/07/2019 Patient name: Lorenzo Amato Date of admission: 09/29/2019 6:36 PM Date of : 1970 PCP: Lion Carlson MD Reason for Admission: Coronary artery disease, occlusive [I25.10] Chest pain [R07.9] Subjective: Clinical Changes / Abnormalities: seen and examined. No groin pain. S/p cath yesterday. Medications: Scheduled Meds: sodium chloride flush 10 mL Intravenous 2 times per day ticagrelor 90 mg Oral BID sodium chloride flush 10 mL Intravenous 2 times per day insulin lispro 6 Units Subcutaneous TID AC Vitamin D 10,000 Units Oral Daily aspirin 81 mg Oral Daily atorvastatin 80 mg Oral Daily busPIRone 15 mg Oral TID DULoxetine 60 mg Oral Daily ferrous sulfate 325 mg Oral Daily with breakfast hydrALAZINE 75 mg Oral BID [Held by provider] insulin glargine 100 Units Subcutaneous BID [Held by provider] losartan 25 mg Oral Daily metoprolol 100 mg Oral BID pantoprazole 40 mg Oral BID AC tamsulosin 0.4 mg Oral Daily sodium chloride flush 10 mL Intravenous 2 times per day insulin lispro 0-18 Units Subcutaneous TID WC insulin lispro 0-9 Units Subcutaneous Nightly influenza virus vaccine 0.5 mL Intramuscular Once Continuous Infusions: heparin (porcine) 18.65 Units/kg/hr (10/07/19 0208) dextrose CBC: Recent Labs 10/06/19 0520 PLT 213 BMP: Recent Labs 10/05/19 0433 10/06/19 0520 10/07/19 0448 NA 137 136 136 K 4.2 4.2 4.3 CL 102 100 99 CO2 25 22 23 BUN 23* 24* 21* CREATININE 1.78* 1.79* 1.61* GLUCOSE 188* 208* 177* Hepatic: No results for input(s): AST, ALT, ALB, BILITOT, ALKPHOS in the last 72 hours. Troponin: No results for input(s): TROPHS in the last 72 hours. BNP: No results for input(s): BNP in the last 72 hours. Lipids: No results for input(s): CHOL, HDL in the last 72 hours. Invalid input(s): LDLCALCU INR: No results for input(s): INR in the last 72 hours. EK09/28/19 Normal sinus rhythm, inferior infarct ECHO: 09/28/19 Left ventricle is normal in size. Severe concentric left ventricular hypertrophy. Global left ventricular systolic function is normal with an estimated ejection fraction of 60 % . Evidence of diastolic dysfunction. Left atrium is at upper limits of normal. Right atrium is mildly dilated . Normal right ventricular size and function. Aortic valve leaflets are mildly thickened. No aortic stenosis. Thickened mitral valve leaflets. Mild mitral regurgitation. Stress test: 09/29/19 1. Abnormal myocardial perfusion study. There is a moderate/large perfusion defect of moderate/severe intensity in the anterolateral, lateral, inferolateral, inferior region(s) during stress and restimaging, which is most consistent with an old myocardial infarction with judy-infarct ischemia. 2. Global left ventricular systolic function was abnormal with an EF of 36% with regional wall motion abnormalities. Overall these results are most consistent with 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/high risk for significant coronary artery disease. CARDIAC CATH 10/02/19 Findings: LMCA: No significant disease and mild irregularities. LAD: Mid 90% stenosis LCx: Patent proximal stent Distal 80% stenosis RCA: 100% proximal stenosis with collateral from the left system Coronary Tree Dominance: Right The LV gram was not performed Estimated blood loss: 5 ml Conclusions: Multivessel significant CAD Recommendations: 1. CT surgery consult for Urgent CABG 2. Medical Therapy. 3. Risk Factors Modification. 4. Post Cath Protocol Cath 10/06/19: Conclusions: 5. Successful PTCA/TIFFANIE to mid LAD 6. Successful PTCA/TIFFANIE to distal LCx Recommendations: 1. DAPT with aspirin and ticagrelor 2. Medical Therapy. 3. Risk Factors Modification. 4. Post Cath Protocol Objective: Vitals: BP 122/66 Pulse 74 Temp 97.6 F (36.4 C) (Axillary) Resp 17 Ht 5' 9 (1.753 m) Wt 284 lb 9.6 oz (129.1 kg) SpO2 98% BMI 42.03 kg/m General appearance: alert and cooperative with exam HEENT: Head: Normocephalic, no lesions, without obvious abnormality. Neck: no JVD, trachea midline, no adenopathy Lungs: Clear to auscultation Heart: Regular rate and rhythm, s1/s2 auscultated, no murmurs Abdomen: soft, non-tender, bowel sounds active Extremities: groin soft, no hematoma, some bruising Neurologic: not done Assessment / Acute Cardiac Problems: 7. Abnormal stress test with judy-infarct ischemia and EF 36% 8. Preserved LVEF on echo 9. CAD s/p LCX stent (3.5 x 20 mm) 10. CKD-3 11. H/O STEMI in 2005 as noted above 12. HTN 13. Hyperlipidemia 14. Insulin-dependent DM-2 15. 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 H/O MS Plan of Treatment: 1. S/p MV pci as above. On DAPT Recommend Eliquis on d/c per heme Will stop ASA after 1 month and continue brilinta/eliquis 2. CKD. Cleared by nephrology for PCI. 3. Bilateral Acute DVTs. Hematology following and plan for Eliquis to be resumed after cardiac cath. Follow up in 2 weeks. [facility] [employer]. [phone] * Tim Saldana MD - 10/07/2019 8:44 AM EST Renal Progress Note Patient : Lorenzo Amato; 49 y.o. Location: Attending: Suni Cornejo* Admit Date: 09/29/2019 Hospital Day: 8 Subjective: Following for REJI/CKD III with baseline 1.5-1.9, managed by Dr. Miller, admitted with chest pain. Cardiac catheterization done on 10/02/2019 showed multivessel coronary artery disease and CT surgery was consulted for CABG evaluation but he was not a candidate for CABG per CT surgery. Repeat cardiac catheterization 10/06/2019 status post TIFFANIE PCI to mid LAD and distal LCx. Creatinine 1.61 this morning. No Urine output recorded. Blood pressure stable. Denies pain. On Heparin drip until oral AC can be started. Outpatient Medications: Medications Prior to Admission: Cholecalciferol (VITAMIN D3 PO), Take 10,000 Units by mouth daily hydrOXYzine (ATARAX) 25 MG tablet, Take 1 tablet by mouth 3 times daily as needed for Anxiety losartan (COZAAR) 25 MG tablet, Take 25 mg by mouth daily To be starting this medication every other day, has not started yet. ferrous sulfate 325 (65 Fe) MG EC tablet, Take 1 tablet by mouth daily (with breakfast) polyethylene glycol (GLYCOLAX) packet, Take 17 g by mouth daily as needed for Constipation senna (SENOKOT) 8.6 MG tablet, Take 1 tablet by mouth nightly as needed (constipation) tamsulosin (FLOMAX) 0.4 MG capsule, Take 1 capsule by mouth daily apixaban (ELIQUIS) 5 MG TABS tablet, Take 1 tablet by mouth 2 times daily busPIRone (BUSPAR) 15 MG tablet, TAKE ONE TABLET BY MOUTH THREE TIMES A DAY hydrALAZINE (APRESOLINE) 50 MG tablet, TAKE 1 1/2 TABLETS BY MOUTH TWICE DAILY metoprolol (LOPRESSOR) 100 MG tablet, TAKE 1 TABLET BY MOUTH 2 TIMES A DAY atorvastatin (LIPITOR) 80 MG tablet, TAKE 1 TABLET BY MOUTH ONE TIME DAILY omeprazole (PRILOSEC) 40 MG delayed release capsule, TAKE 1 CAPSULE BY MOUTH 2 TIMES A DAY SANDOSTATIN LAR DEPOT 30 MG injection, INJECT 30 MG INTO THE MUSCLE EVERY 28 DAYS DULoxetine (CYMBALTA) 60 MG extended release capsule, TAKE 1 CAPSULE BY MOUTH ONE TIME A DAY furosemide (LASIX) 20 MG tablet, Take 1 tablet by mouth (20 mg) every other day (Patient taking differently: See Admin Instructions As needed wt gain swelling) insulin lispro (HUMALOG KWIKPEN) 100 UNIT/ML pen, Inject 5 Units into the skin 3 times daily (before meals) Insulin Pen Needle (B-D ULTRAFINE III SHORT PEN) 31G X 8 MM MISC, Use as directed with insulin pen needles, up to 5x/day Blood Glucose Monitoring Suppl ([employer] AUTOCODE BLOOD GLUCOSE) w/Device KIT, Use as directed to test up to 4 times daily [employer] LANCETS 28G MISC, Use as directed to test up to 4 times daily blood glucose test strips ([employer] NO CODING BLOOD GLUC) strip, 1 each by In Vitro route 4 times daily As needed. insulin glargine (TOUJEO MAX SOLOSTAR) 300 UNIT/ML injection pen, Inject 130 Units into the skin 2 times daily meclizine (ANTIVERT) 25 MG tablet, Take 1 tablet by mouth 3 times daily as needed for Dizziness Current Medications: Scheduled Meds: sodium chloride flush 10 mL Intravenous 2 times per day ticagrelor 90 mg Oral BID acetylcysteine 600 mg Oral BID sodium chloride flush 10 mL Intravenous 2 times per day insulin lispro 6 Units Subcutaneous TID AC Vitamin D 10,000 Units Oral Daily aspirin 81 mg Oral Daily atorvastatin 80 mg Oral Daily busPIRone 15 mg Oral TID DULoxetine 60 mg Oral Daily ferrous sulfate 325 mg Oral Daily with breakfast hydrALAZINE 75 mg Oral BID [Held by provider] insulin glargine 100 Units Subcutaneous BID [Held by provider] losartan 25 mg Oral Daily metoprolol 100 mg Oral BID pantoprazole 40 mg Oral BID AC tamsulosin 0.4 mg Oral Daily sodium chloride flush 10 mL Intravenous 2 times per day insulin lispro 0-18 Units Subcutaneous TID WC insulin lispro 0-9 Units Subcutaneous Nightly influenza virus vaccine 0.5 mL Intramuscular Once Continuous Infusions: heparin (porcine) 18.65 Units/kg/hr (10/07/19 0208) sodium chloride 75 mL/hr at 10/07/19 0213 dextrose PRN Meds: sodium chloride flush, sodium chloride flush, acetaminophen, glucose, dextrose, glucagon (rDNA), dextrose, sennosides-docusate sodium, heparin (porcine), heparin (porcine), hydrOXYzine, meclizine, polyethylene glycol, sodium chloride flush, potassium chloride OR potassium alternative oral replacement OR potassium chloride, potassium chloride, magnesium sulfate, magnesium hydroxide, ondansetron, nitroGLYCERIN Input/Output: I/O last 3 completed shifts: In: 1900 [I.V.:1900] Out: - . Patient Vitals for the past 96 hrs (Last 3 readings): Weight 10/07/19 0630 284 lb 9.6 oz (129.1 kg) 10/06/19 0545 275 lb 14.4 oz (125.1 kg) 10/05/19 0552 282 lb 12.8 oz (128.3 kg) Vital Signs: Temperature: Temp: 97.6 F (36.4 C) TMax: Temp (24hrs), Av.2 F (31.2 C), Min:32 F (0 C), Max:98.1 F (36.7 C) Respirations: Resp: 17 Pulse: Pulse: 58 BP: BP: 131/69 BP Range: Systolic (24hrs), Av , Min:117 , Max:138 Diastolic (24hrs), Av, Min:64, Max:73 Physical Examination: General: AAO x 3, speaking in full sentences, no accessory muscle use. HEENT: Atraumatic, normocephalic, no throat congestion, moist mucosa. Eyes: Pupils equal, round and reactive to light, EOMI. Neck: Supple Chest: Bilateral vesicular breath sounds, no rales or wheezes. Cardiac: S1 S2 RR, no murmurs, gallops or rubs. Abdomen: Soft, non-tender, no masses or organomegaly, BS audible. : No suprapubic or flank tenderness. Neuro: AAO x 3, No FND. SKIN: No rashes, good skin turgor. Extremities: No edema. Labs: Recent Labs 10/06/19 0520 PLT 213 BMP: Recent Labs 10/05/19 0433 10/06/19 0520 10/07/19 0448 NA 137 136 136 K 4.2 4.2 4.3 CL 102 100 99 CO2 25 22 23 BUN 23* 24* 21* CREATININE 1.78* 1.79* 1.61* GLUCOSE 188* 208* 177* CALCIUM 8.6 8.7 8.5* XAVIER: Lab Results Component Value Date XAVIER NEGATIVE 04/03/2013 SPEP: Lab Results Component Value Date PROT 5.4 09/30/2019 PATH ELECTRONICALLY SIGNED. DUNIA ROBERT M.D. 04/03/2013 UPEP: Lab Results Component Value Date LABPE 04/03/2013 ELEVATED PROTEIN CONCENTRATION. MOST SERUM PROTEINS ARE DETECTED IN THIS URINE. C3: Lab Results Component Value Date C3 170 04/03/2013 C4: Lab Results Component Value Date C4 41 04/03/2013 MPO ANCA: Lab Results Component Value Date MPO 15 04/03/2013 PR3 ANCA: Lab Results Component Value Date PR3 11 04/03/2013 Urinalysis/Chemistries: Lab Results Component Value Date NITRU NEGATIVE 09/28/2019 COLORU YELLOW 09/28/2019 PHUR 6.0 09/28/2019 WBCUA NOT REPORTED 09/28/2019 RBCUA 0 TO 2 09/28/2019 MUCUS NOT REPORTED 09/28/2019 TRICHOMONAS NOT REPORTED 09/28/2019 YEAST NOT REPORTED 09/28/2019 BACTERIA NOT REPORTED 09/28/2019 CLARITYU clear 04/05/2014 SPECGRAV 1.020 09/28/2019 LEUKOCYTESUR NEGATIVE 09/28/2019 UROBILINOGEN Normal 09/28/2019 BILIRUBINUR NEGATIVE 09/28/2019 BILIRUBINUR neg 04/05/2014 BLOODU neg 04/05/2014 GLUCOSEU 1000 mg/dL 09/28/2019 KETUA NEGATIVE 09/28/2019 AMORPHOUS NOT REPORTED 09/28/2019 Urine Sodium: Lab Results Component Value Date DESIREE <10 06/16/2013 Urine Potassium: Lab Results Component Value Date KUR 18.0 06/16/2013 Urine Chloride: Lab Results Component Value Date CLUR <15 06/16/2013 Urine Osmolarity: Lab Results Component Value Date OSMOU 589 06/16/2013 Urine Creatinine: Lab Results Component Value Date LABCREA 143.7 08/29/2019 Radiology: Reviewed. No recent Assessment: 1. Stage III chronic kidney disease with heavy proteinuria. His baseline creatinine is 1.5-1.9 mg/dL. Currently at baseline 2. S/p cardiac catheterization 10/02/19 -multivessel significant coronary artery disease. Not a candidate for CABG, s/p repeat cardiac catheterization 10/06/2019 and status post TIFFANIE PCI to mid LAD and distal LCx. EF 60% 3. Hypertension with the patient's blood pressure under good control 4. Nephrotic range proteinuria 5. Obstructive sleep apnea 6. Type 2 diabetes 7. 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 Heme-onc on board. 8. 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 Plan: 1. Discontinue IV fluids 2. Discontinue Mucomyst 3. BMP in a.m. 4. Continue monitor strict I's and O's renal function. 5. Hold Cozaar for now. Restart at discharge. 6. OK to discharge any time from Nephrology stand point 7. Patient was instructed to contact his primary industrial hygienist in [place] to be seen in 2-3 weeks post discharge. Nutrition Please ensure that patient is on a renal diet/TF. Avoid nephrotoxic drugs/contrast exposure. We will continue to follow along with you. Tim Saldana MD [facility] * Trevor Serna MD - 10/06/2019 2:44 PM EST _ Today's Date: 10/06/2019 Patient Name: Lorenzo Amato Date of admission: 09/29/2019 6:36 PM Patient's age: 49 y.o., 1970 Admission Dx: Coronary artery disease, occlusive [I25.10] Chest pain [R07.9] Requesting Physician: Tunde Pino MD CHIEF COMPLAINT: Chest pain. Coronary artery disease. Metastatic carcinoid tumor. Consult for anticoagulation. SUBJECTIVE: . The patient was seen and examined. Patient is clinically stable. No chest pain. No shortness of breath. No active bleeding. Patient had cardiac cath Wednesday he had high-grade obstructions of multiple coronaries so no stents were applied but patient will need open heart surgery. It was determined today by cardiothoracic that patient is not a surgical candidate. Patient had cardiac cath and stents today. Stents were placed and LAD and circumflex . BRIEF CASE HISTORY: The patient is a 49 y.o. male who is admitted to the hospital for further management of acute coronary ischemia. The patient is known to our practice. 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 He is maintained on Sandostatin. His disease is well controlled. Vinnie elliott had previous history of DVT and pulmonary embolism. He had inferior vena cava filter placement. He has been on different anticoagulation drugs. Previously was on Coumadin and Lovenox. He developed multiple complications. The patient was recently hospitalized because of huge hematoma in the left upper chest wall posteriorly with major drop of the hemoglobin level. He was hospitalized and received blood transfusions. Anticoagulation with Eliquis was resumed after stabilization. Patient was hospitalized because of chest pain with positive stress test. He was evaluated by cardiology. Plan to have cardiac cath and possible stents on Wednesday. Patient is feeling better now in the hospital. No fever or infections. No other complaints. Past Medical History: has a past medical history of Anemia, Arthritis, CAD (coronary artery disease), Chronic kidney disease, CKD (chronic kidney disease), Depression, Disease of blood and blood forming organ, DVT (deep venous thrombosis) (HCC), GERD (gastroesophageal reflux disease), GERD (gastroes ophageal reflux disease), GI bleed, Lori filter in place, History of blood transfusion, Hypercholesteremia, Hypertension, Liver metastases (HCC), CO (myocardial infarction) (HCC), MS (multiple sclerosis) (HCC), Neuroendocrine tumor, Other disorders of kidney and ureter in diseases classified elsewhere, PE (pulmonary embolism), Type II or unspecified type diabetes mellitus without mention ofcomplication, not stated as uncontrolled, Unspecified sleep apnea, and Vitamin D deficiency. Past Surgical History: has a past surgical history that includes Tonsillectomy; Appendectomy; Percutaneous Transluminal Coronary Angio; Colonoscopy; Vasectomy (18 years ago); Thyroid surgery (05/11/13); Coronary angioplasty with stent (2004); and Upper gastrointestinal endoscopy (10/14/2016). Family History: family history includes Cancer in his mother; Heart Disease in his father. Social History: reports that he has never smoked. He has quit using smokeless tobacco. His smokeless tobacco use included chew. He reports that he does not drink alcohol or use drugs. Medications: Prior to Admission medications Medication Sig Start Date End Date Taking? Authorizing Provider Cholecalciferol (VITAMIN D3 PO) Take 10,000 Units by mouth daily Historical Provider, hydrOXYzine (ATARAX) 25 MG tablet Take 1 tablet by mouth 3 times daily as needed for Anxiety 09/29/19 10/09/19 Lion Carlson MD losartan (COZAAR) 25 MG tablet Take 25 mg by mouth daily To be starting this medication every otherday, has not started yet. Historical Provider, ferrous sulfate 325 (65 Fe) MG EC tablet Take 1 tablet by mouth daily (with breakfast) 09/09/19 Stacy Vitale MD polyethylene glycol (GLYCOLAX) packet Take 17 g by mouth daily as needed for Constipation 09/08/19 10/08/19 Stacy Vitale MD senna (SENOKOT) 8.6 MG tablet Take 1 tablet by mouth nightly as needed (constipation) 09/08/19 10/08/19 Stacy Vitale MD tamsulosin (FLOMAX) 0.4 MG capsule Take 1 capsule by mouth daily 09/09/19 Stacy Vitale MD apixaban (ELIQUIS) 5 MG TABS tablet Take 1 tablet by mouth 2 times daily 09/08/19 Stacy Vitale MD busPIRone (BUSPAR) 15 MG tablet TAKE ONE TABLET BY MOUTH THREE TIMES A DAY 08/17/19 Lion Carlson MD hydrALAZINE (APRESOLINE) 50 MG tablet TAKE 1 1/2 TABLETS BY MOUTH TWICE DAILY 06/16/19 Lion Carlson MD metoprolol (LOPRESSOR) 100 MG tablet TAKE 1 TABLET BY MOUTH 2 TIMES A DAY 06/09/19 Lion Carlson MD atorvastatin (LIPITOR) 80 MG tablet TAKE 1 TABLET BY MOUTH ONE TIME DAILY 05/11/19 Lion Carlson MD omeprazole (PRILOSEC) 40 MG delayed release capsule TAKE 1 CAPSULE BY MOUTH 2 TIMES A DAY 04/14/19 Lion Carlson MD SANDOSTATIN LAR DEPOT 30 MG injection INJECT 30 MG INTO THE MUSCLE EVERY 28 DAYS 04/11/19 Trevor Serna MD DULoxetine (CYMBALTA) 60 MG extended release capsule TAKE 1 CAPSULE BY MOUTH ONE TIME A DAY 04/11/19Lion Carlson MD furosemide (LASIX) 20 MG tablet Take 1 tablet by mouth (20 mg) every other day Patient taking differently: See Admin Instructions As needed wt gain swelling 03/06/19 Lion Carlson MD insulin lispro (HUMALOG KWIKPEN) 100 UNIT/ML pen Inject 5 Units into the skin 3 times daily (beforemeals) 03/06/19 Lion Carlson MD Insulin Pen Needle (B-D ULTRAFINE III SHORT PEN) 31G X 8 MM MISC Use as directed with insulin pen needles, up to 5x/day 03/06/19 Lion Carlson MD Blood Glucose Monitoring Suppl ([employer] AUTOCODE BLOOD GLUCOSE) w/Device KIT Use as directed to test up to 4 times daily 03/06/19 MD JUDITH Patel LANCETS 28G MISC Use as directed to test up to 4 times daily 03/06/19 Lion Carlson MD blood glucose test strips ([employer] NO CODING BLOOD GLUC) strip 1 each by In Vitro route 4 times daily As needed. 03/06/19 Lion Carlson MD insulin glargine (TOUJEO MAX SOLOSTAR) 300 UNIT/ML injection pen Inject 130 Units into the skin 2 times daily 08/02/18 Lion Carlson MD meclizine (ANTIVERT) 25 MG tablet Take 1 tablet by mouth 3 times daily as needed for Dizziness 02/25/18 Lion Carlson MD Current Facility-Administered Medications Medication Dose Route Frequency Provider Last Rate Last Dose heparin 25,000 units in dextrose 5% 250 mL infusion 12 Units/kg/hr Intravenous Continuous Jim Mendoza MD 21.8 mL/hr at 10/06/19 1851 16.654 Units/kg/hr at 10/06/19 1851 sodium chloride flush 0.9 % injection 10 mL 10 mL Intravenous 2 times per day Jim Mendoza MD sodium chloride flush 0.9 % injection 10 mL 10 mL Intravenous PRN Jim Mendoza MD ticagrelor (BRILINTA) tablet 90 mg 90 mg Oral BID Jim Mendoza MD acetylcysteine (MUCOMYST) 20 % solution 600 mg 600 mg Oral BID Jim Mendoza MD 600 mg at 10/06/19 1020 0.9 % sodium chloride infusion Intravenous Continuous Jim Mendoza MD 75 mL/hr at 10/05/19 2354 sodium chloride flush 0.9 % injection 10 mL 10 mL Intravenous 2 times per day Jim Mendoza MD 10 mL at 10/06/19 0825 sodium chloride flush 0.9 % injection 10 mL 10 mL Intravenous PRN Jim Mendoaz MD acetaminophen (TYLENOL) tablet 650 mg 650 mg Oral Q4H PRN Jim Mendoza MD insulin lispro (HUMALOG) injection vial 6 Units 6 Units Subcutaneous TID AC Jim Mendoza MD 6 Units at 10/04/19 1657 glucose (GLUTOSE) 40 % oral gel 15 g 15 g Oral PRN Jim Mendoza MD dextrose 50 % IV solution 12.5 g Intravenous PRN Jim Mendoza MD glucagon (rDNA) injection 1 mg 1 mg Intramuscular PRN Jim Mendoza MD dextrose 5 % solution 100 mL/hr Intravenous PRN Jim Mendoza MD sennosides-docusate sodium (SENOKOT-S) 8.6-50 MG tablet 2 tablet 2 tablet Oral BID PRN Jim Mendoza MD 2 tablet at 10/01/19 1046 Vitamin D (CHOLECALCIFEROL) tablet 10,000 Units 10,000 Units Oral Daily Jim Mendoza MD 10,000Units at 10/06/19 1018 aspirin chewable tablet 81 mg 81 mg Oral Daily Jim Mendoza MD 81 mg at 10/06/19 1014 heparin (porcine) injection 4,000 Units 4,000 Units Intravenous PRN Jim Mednoza MD 4,000 Units at 10/03/19 0107 heparin (porcine) injection 2,000 Units 2,000 Units Intravenous PRN Jim Mendoza MD 2,000 Units at 10/03/19 1602 atorvastatin (LIPITOR) tablet 80 mg 80 mg Oral Daily Jim Mendoza MD 80 mg at 10/06/19 1014 busPIRone (BUSPAR) tablet 15 mg 15 mg Oral TID Jim Mendoza MD 15 mg at 10/06/19 1607 DULoxetine (CYMBALTA) extended release capsule 60 mg 60 mg Oral Daily Jim Mendoza MD 60 mg at112/06/18 1015 ferrous sulfate EC tablet 325 mg 325 mg Oral Daily with breakfast Jim Mendoza MD 325 mg at 10/06/19 1014 hydrALAZINE (APRESOLINE) tablet 75 mg 75 mg Oral BID Jim Mendoza MD 75 mg at 10/06/19 1015 hydrOXYzine (ATARAX) tablet 25 mg 25 mg Oral TID PRN Jim Mendoza MD 25 mg at 10/02/192023 [Held by provider] insulin glargine (LANTUS) injection vial 100 Units 100 Units Subcutaneous BID Jim Mendoza MD 50 Units at 10/03/192136 [Held by provider] losartan (COZAAR) tablet 25 mg 25 mg Oral Daily Jim Mendoza MD 25 mg at 10/05/19 0932 meclizine (ANTIVERT) tablet 25 mg 25 mg Oral TID PRN Jim Mendoza MD metoprolol tartrate (LOPRESSOR) tablet 100 mg 100 mg Oral BID Jim Mendoza MD 100 mg at 10/06/19 1016 pantoprazole (PROTONIX) tablet 40 mg 40 mg Oral BID AC Jim Mendoza MD 40 mg at 10/06/19 1607 polyethylene glycol (GLYCOLAX) packet 17 g 17 g Oral Daily PRN Jim Mendoza MD tamsulosin (FLOMAX) capsule 0.4 mg 0.4 mg Oral Daily Jim Mendoza MD 0.4 mg at 10/06/19 1017 sodium chloride flush 0.9 % injection 10 mL 10 mL Intravenous 2 times per day Jim Mendoza MD 10 mL at 10/01/192105 sodium chloride flush 0.9 % injection 10 mL 10 mL Intravenous PRN Jim Mendoza MD potassium chloride (KLOR-CON M) extended release tablet 40 mEq 40 mEq Oral PRN Jim Mendoza MD Or potassium bicarb-citric acid (EFFER-K) effervescent tablet 40 mEq 40 mEq Oral PRN iJm Mendoza MD Or potassium chloride 10 mEq/100 mL IVPB (Peripheral Line) 10 mEq Intravenous PRN Jim Mendoza MD potassium chloride 10 mEq/100 mL IVPB (Peripheral Line) 10 mEq Intravenous PRN Jim Mendoza MD magnesium sulfate 1 g in dextrose 5% 100 mL IVPB 1 g Intravenous PRN Jim Mendoza MD magnesium hydroxide (MILK OF MAGNESIA) 400 MG/5ML suspension 30 mL 30 mL Oral Daily PRN Jim Mendoza MD ondansetron (ZOFRAN) injection 4 mg 4 mg Intravenous Q6H PRN Jim Mendoza MD nitroGLYCERIN (NITROSTAT) SL tablet 0.4 mg 0.4 mg Sublingual Q5 Min PRN Jim Mendoza MD insulin lispro (HUMALOG) injection vial 0-18 Units 0-18 Units Subcutaneous TID WC Jim Mendoza MD 3 Units at 10/06/191853 insulin lispro (HUMALOG) injection vial 0-9 Units 0-9 Units Subcutaneous Nightly Jim Mendoza MD 3 Units at 10/05/192128 influenza quadrivalent split vaccine (FLUZONE;FLUARIX;FLULAVAL;AFLURIA) injection 0.5 mL 0.5 mL Intramuscular Once Jim Mendoza MD Allergies: Toradol [ketorolac tromethamine] and Lisinopril REVIEW OF SYSTEMS: General: Positive for weakness and fatigue.. No unanticipated weight loss or decreased appetite. Nofever or chills. Eyes: No blurred vision, eye pain or double vision. Ears: No hearing problems or drainage. No tinnitus. Throat: No sore throat, problems with swallowing or dysphagia. Respiratory: No cough, sputum or hemoptysis. No shortness of breath. No pleuritic chest pain. Cardiovascular: As above. Gastrointestinal: No problems with swallowing. No abdominal pain or bloating. No nausea or vomiting. No diarrhea or constipation. No GI bleeding. Genitourinary: No dysuria, hematuria, frequency or urgency. Musculoskeletal: No muscle aches or pains. No limitation of movement. No back pain. No gait disturbance, No joint complaints. Dermatologic: No skin rashes or pruritus. No skin lesions or discolorations. Psychiatric: No depression, anxiety, or stress or signs of schizophrenia. No change in mood or affect. Hematologic: Hematomas as above. Infectious disease: No fever, chills or frequent infections. Endocrine: No polydipsia or polyuria. No temperature intolerance. Neurologic: No headaches or dizziness. No weakness or numbness of the extremities. No changes in balance, coordination, memory, mentation, behavior. Allergic/Immunologic: No nasal congestion or hives. No repeated infections. PHYSICAL EXAM: BP 117/64 Pulse 64 Temp 97.5 F (36.4 C) (Oral) Resp 14 Ht 5' 9 (1.753 m) Wt 275 lb 14.4 oz (125.1 kg) SpO2 98% BMI 40.74 kg/m Temp (24hrs), Av.6 F (36.4 C), Min:97.2 F (36.2 C), Max:98.1 F (36.7 C) General appearance -patient is overweight. Well appearing, not in pain or distress Mental status - good mood, alert and oriented Eyes - pupils equal and reactive, extraocular eye movements intact Ears - bilateral TM's and external ear canals normal Nose - normal and patent, no erythema, discharge or polyps Mouth - mucous membranes moist, pharynx normal without lesions Neck - supple, no significant adenopathy Lymphatics - no palpable lymphadenopathy, no hepatosplenomegaly Chest - clear to auscultation, no wheezes, rales or rhonchi, symmetric air entry. Very large hematoma in the posterior chest wall in the left upper back. Heart - normal rate, regular rhythm, normal S1, S2, no murmurs, rubs, clicks or gallops Abdomen - soft, nontender, nondistended, no masses or organomegaly Neurological - alert, oriented, normal speech, no focal findings or movement disorder noted Musculoskeletal - no joint tenderness, deformity or swelling Extremities - peripheral pulses normal, no pedal edema, no clubbing or cyanosis Skin - normal coloration and turgor, no rashes, no suspicious skin lesions noted DATA: Labs: CBC: Recent Labs 10/04/19 0412 10/06/19 05 PLT 234 213 BMP: Recent Labs 10/05/1943210/06/19 05 NA 137 136 K 4.2 4.2 CO2 25 22 BUN 23* 24* CREATININE 1.78* 1.79* LABGLOM 41* 40* GLUCOSE 188* 208* PT/INR: No results for input(s): PROTIME, INR in the last 72 hours. APTT: Recent Labs 10/05/1943210/06/19 05 APTT 67.9* 71.5* LIVER PROFILE: No results for input(s): AST, ALT, LABALBU in the last 72 hours. 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] 10/11/2016 DVT of lower extremity, bilateral (HCC) [I82.403] 06/14/2013 Liver metastases (HCC) [C78.7] 05/25/2013 Pulmonary embolism (HCC) [I26.99] 09/07/2012 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 [Z79.01] GERD (gastroesophageal reflux disease) [K21.9] 02/04/2012 Multiple sclerosis (HCC) [G35] 10/01/2011 Iron deficiency anemia [D50.9] 10/01/2011 CAD (coronary artery disease) [I25.10] 10/01/2011 NABOR (obstructive sleep apnea) [G47.33] 10/01/2011 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) [E11.22, E11.65] Benign essential HTN [I10] RECOMMENDATIONS: 1. Records and labs and images were reviewed and discussed with the patient. 2. Patient has metastatic gastric carcinoid with liver metastases maintained on Sandostatin LAR every 4 weeks. Disease is controlled. 3. Patient had previous DVT and pulmonary embolism and maintained on anticoagulation with Eliquis. 4. Patient developed recent large subcutaneous hematoma and anticoagulation was resumed after stabilization. 5. Currently with acute coronary syndrome. Cardiac cath Wednesday showed multiple blood vessels with very high-grade obstruction. Plan was to have CABG. Patient was evaluated by cardiothoracic and felt to be not a surgical candidate. 6. Patient had cardiac cath and stenting today. Hence will place an LAD and circumflex. Started on antiplatelets. 7. Patient will be discharged on multiple antiplatelets and Eliquis. 8. Monitor for bleeding. He and his understand the benefit and risk. 9. We will continue to follow. We will see him in [place]. Discussed with patient and his and Nurse. MD Trevor Moreira MD This note is created with the assistance of a speech recognition program. While intending to generate a document that actually reflects the content of the visit, the document can still have some errors including those of syntax and sound a like substitutions which may escape proof reading. It such instances, actual meaning can be extrapolated by contextual diversion. * Mino Pino MD - 10/06/2019 1:11 PM EST Renal Progress Note Patient : Lorenzo Amato; 49 y.o. Location: Attending: Emma Lewis MD Admit Date: 09/29/2019 Hospital Day: 7 Subjective: Patient seen and examined. Patient had a cardiac catheterization done on 10/02/2019 which showed multivessel significant coronary artery disease and CT surgery was consulted for CABG evaluation but he was not a candidate for CABG per CT surgery and now s/p cardiac catheterization done today 10/06/2019 and status post TIFFANIE PCIto mid LAD and distal LCx. Been better post cath, no new issues reported. Patient's serum creatinine today is 1.79 mg/DL his baseline creatinine seems to be around 1.5-1.9 mg/DL. Made about 2.5 L a urine last 24 hours. Outpatient Medications: Medications Prior to Admission: Cholecalciferol (VITAMIN D3 PO), Take 10,000 Units by mouth daily hydrOXYzine (ATARAX) 25 MG tablet, Take 1 tablet by mouth 3 times daily as needed for Anxiety losartan (COZAAR) 25 MG tablet, Take 25 mg by mouth daily To be starting this medication every other day, has not started yet. ferrous sulfate 325 (65 Fe) MG EC tablet, Take 1 tablet by mouth daily (with breakfast) polyethylene glycol (GLYCOLAX) packet, Take 17 g by mouth daily as needed for Constipation senna (SENOKOT) 8.6 MG tablet, Take 1 tablet by mouth nightly as needed (constipation) tamsulosin (FLOMAX) 0.4 MG capsule, Take 1 capsule by mouth daily apixaban (ELIQUIS) 5 MG TABS tablet, Take 1 tablet by mouth 2 times daily busPIRone (BUSPAR) 15 MG tablet, TAKE ONE TABLET BY MOUTH THREE TIMES A DAY hydrALAZINE (APRESOLINE) 50 MG tablet, TAKE 1 1/2 TABLETS BY MOUTH TWICE DAILY metoprolol (LOPRESSOR) 100 MG tablet, TAKE 1 TABLET BY MOUTH 2 TIMES A DAY atorvastatin (LIPITOR) 80 MG tablet, TAKE 1 TABLET BY MOUTH ONE TIME DAILY omeprazole (PRILOSEC) 40 MG delayed release capsule, TAKE 1 CAPSULE BY MOUTH 2 TIMES A DAY SANDOSTATIN LAR DEPOT 30 MG injection, INJECT 30 MG INTO THE MUSCLE EVERY 28 DAYS DULoxetine (CYMBALTA) 60 MG extended release capsule, TAKE 1 CAPSULE BY MOUTH ONE TIME A DAY furosemide (LASIX) 20 MG tablet, Take 1 tablet by mouth (20 mg) every other day (Patient taking differently: See Admin Instructions As needed wt gain swelling) insulin lispro (HUMALOG KWIKPEN) 100 UNIT/ML pen, Inject 5 Units into the skin 3 times daily (before meals) Insulin Pen Needle (B-D ULTRAFINE III SHORT PEN) 31G X 8 MM MISC, Use as directed with insulin pen needles, up to 5x/day Blood Glucose Monitoring Suppl ([employer] AUTOCODE BLOOD GLUCOSE) w/Device KIT, Use as directed to test up to 4 times daily [employer] LANCETS 28G MISC, Use as directed to test up to 4 times daily blood glucose test strips ([employer] NO CODING BLOOD GLUC) strip, 1 each by In Vitro route 4 times daily As needed. insulin glargine (TOUJEO MAX SOLOSTAR) 300 UNIT/ML injection pen, Inject 130 Units into the skin 2 times daily meclizine (ANTIVERT) 25 MG tablet, Take 1 tablet by mouth 3 times daily as needed for Dizziness Current Medications: Scheduled Meds: sodium chloride flush 10 mL Intravenous 2 times per day ticagrelor 90 mg Oral BID acetylcysteine 600 mg Oral BID sodium chloride flush 10 mL Intravenous 2 times per day insulin lispro 6 Units Subcutaneous TID AC Vitamin D 10,000 Units Oral Daily aspirin 81 mg Oral Daily atorvastatin 80 mg Oral Daily busPIRone 15 mg Oral TID DULoxetine 60 mg Oral Daily ferrous sulfate 325 mg Oral Daily with breakfast hydrALAZINE 75 mg Oral BID [Held by provider] insulin glargine 100 Units Subcutaneous BID [Held by provider] losartan 25 mg Oral Daily metoprolol 100 mg Oral BID pantoprazole 40 mg Oral BID AC tamsulosin 0.4 mg Oral Daily sodium chloride flush 10 mL Intravenous 2 times per day insulin lispro 0-18 Units Subcutaneous TID WC insulin lispro 0-9 Units Subcutaneous Nightly influenza virus vaccine 0.5 mL Intramuscular Once Continuous Infusions: heparin (porcine) sodium chloride 75 mL/hr at 10/05/19 2354 dextrose PRN Meds: sodium chloride flush, sodium chloride flush, acetaminophen, glucose, dextrose, glucagon (rDNA), dextrose, sennosides-docusate sodium, heparin (porcine), heparin (porcine), hydrOXYzine, meclizine, polyethylene glycol, sodium chloride flush, potassium chloride OR potassium alternative oral replacement OR potassium chloride, potassium chloride, magnesium sulfate, magnesium hydroxide, ondansetron, nitroGLYCERIN Input/Output: I/O last 3 completed shifts: In: 2000 [P.O.:960; I.V.:1041] Out: 2500 [Urine:2500]. Patient Vitals for the past 96 hrs (Last 3 readings): Weight 10/06/19 0545 275 lb 14.4 oz (125.1 kg) 10/05/19 0552 282 lb 12.8 oz (128.3 kg) 10/04/19 0547 284 lb 11.2 oz (129.1 kg) Vital Signs: Temperature: Temp: 97.2 F (36.2 C) TMax: Temp (24hrs), Av.7 F (36.5 C), Min:97.2 F (36.2 C), Max:98.1 F (36.7 C) Respirations: Resp: 12 Pulse: Pulse: 68 BP: BP: 130/73 BP Range: Systolic (24hrs), Av , Min:114 , Max:142 Diastolic (24hrs), Av, Min:61, Max:74 Physical Examination: General: AAO x 3, speaking in full sentences, no accessory muscle use. HEENT: Atraumatic, normocephalic, no throat congestion, moist mucosa. Eyes: Pupils equal, round and reactive to light, EOMI. Neck: Supple Chest: Bilateral vesicular breath sounds, no rales or wheezes. Cardiac: S1 S2 RR, no murmurs, gallops or rubs. Abdomen: Soft, non-tender, no masses or organomegaly, BS audible. : No suprapubic or flank tenderness. Neuro: AAO x 3, No FND. SKIN: No rashes, good skin turgor. Extremities: No edema. Labs: Recent Labs 10/04/19 0412 10/06/19 0520 PLT 234 213 BMP: Recent Labs 10/04/19 0412 10/05/19 0433 10/06/19 0520 NA 138 137 136 K 4.0 4.2 4.2 CL 103 102 100 CO2 24 25 22 BUN 20 23* 24* CREATININE 1.54* 1.78* 1.79* GLUCOSE 143* 188* 208* CALCIUM 8.7 8.6 8.7 XAVIER: Lab Results Component Value Date XAVIER NEGATIVE 04/03/2013 SPEP: Lab Results Component Value Date PROT 5.4 09/30/2019 PATH ELECTRONICALLY SIGNED. DUNIA ROBERT M.D. 04/03/2013 UPEP: Lab Results Component Value Date LABPE 04/03/2013 ELEVATED PROTEIN CONCENTRATION. MOST SERUM PROTEINS ARE DETECTED IN THIS URINE. C3: Lab Results Component Value Date C3 170 04/03/2013 C4: Lab Results Component Value Date C4 41 04/03/2013 MPO ANCA: Lab Results Component Value Date MPO 15 04/03/2013 PR3 ANCA: Lab Results Component Value Date PR3 11 04/03/2013 Urinalysis/Chemistries: Lab Results Component Value Date NITRU NEGATIVE 09/28/2019 COLORU YELLOW 09/28/2019 PHUR 6.0 09/28/2019 WBCUA NOT REPORTED 09/28/2019 RBCUA 0 TO 2 09/28/2019 MUCUS NOT REPORTED 09/28/2019 TRICHOMONAS NOT REPORTED 09/28/2019 YEAST NOT REPORTED 09/28/2019 BACTERIA NOT REPORTED 09/28/2019 CLARITYU clear 04/05/2014 SPECGRAV 1.020 09/28/2019 LEUKOCYTESUR NEGATIVE 09/28/2019 UROBILINOGEN Normal 09/28/2019 BILIRUBINUR NEGATIVE 09/28/2019 BILIRUBINUR neg 04/05/2014 BLOODU neg 04/05/2014 GLUCOSEU 1000 mg/dL 09/28/2019 KETUA NEGATIVE 09/28/2019 AMORPHOUS NOT REPORTED 09/28/2019 Urine Sodium: Lab Results Component Value Date DESIREE <10 06/16/2013 Urine Potassium: Lab Results Component Value Date KUR 18.0 06/16/2013 Urine Chloride: Lab Results Component Value Date CLUR <15 06/16/2013 Urine Osmolarity: Lab Results Component Value Date OSMOU 589 06/16/2013 Urine Creatinine: Lab Results Component Value Date LABCREA 143.7 08/29/2019 Radiology: Reviewed. Assessment: 1. Stage III chronic kidney disease with heavy proteinuria. His baseline creatinine is 1.5-1.9 mg/dL. Today's creatinine is slightly better than baseline at 1.78 mg/dl. 2. S/p cardiac catheterization 10/02/19 -multivessel significant coronary artery disease. CT surgery he was not a candidate for CABG, now s/p cardiac catheterization done today 10/06/2019 and status post TIFFANIE PCI to mid LAD and distal LCx. 3. Hypertension with the patient's blood pressure under good control 4. Nephrotic range proteinuria 5. Obstructive sleep apnea 6. Type 2 diabetes 7. 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 Heme-onc on board. 8. 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 Plan: 1. Continue IV fluids 75 cc an hour normal saline 6 hours before and 6 hours after the cardiac catheterization. 2. Mucomyst 1200 mg 2 doses before 2 doses after cardiac catheterization. 3. BMP in a.m. 4. Continue monitor strict I's and O's renal function. 5. Hold Cozaar for now. 6. Will follow. Patient's nurse was updated. Nutrition Please ensure that patient is on a renal diet/TF. Avoid nephrotoxic drugs/contrast exposure. We will continue to follow along with you. Mino Pino MD [facility] This note is created with the assistance of a speech-recognition program. While intending to generate a document that actually reflects the content of the visit, no guarantees can be provided that every mistake has been identified and corrected by editing. * Ada Malcolm, JESSICA, LD - 10/06/2019 11:00 AM EST Nutrition Assessment Type and Reason for Visit: Initial(LOS Day 7) Nutrition Recommendations: -Recommend adding 4 CHO diabetic diet w/ cardiac diet -Recommend glucerna supplements TID -Will monitor po intake and weights Nutrition Assessment: Pt presented to the ER w/ chest pain. Pt w/ metastatic carcinoid tumor of thestomach w/ liver mets. Pt currently off the floor during time of visit. Pt w/ 12.4% wt loss x 8 mo per EMR. Pt also w/ 3.5% wt loss x 1 wk, possibly r/t fluid as pt has been consuming 75-100% of his meals this week. Will add supplements d/t increased nutrient needs and monitor wt trends. Malnutrition Assessment: Malnutrition Status: Insufficient data Context: Chronic illness Findings of the 6 clinical characteristics of malnutrition (Minimum of 2 out of 6 clinical characteristics is required to make the diagnosis of moderate or severe Protein Calorie Malnutrition based on AND/ASPEN Guidelines): 1. Energy Intake-Greater than 75% of estimated energy requirement, Greater than or equal to 7 days 2. Weight Loss-10% loss or greater, (x 8 mo) 3. Fat Loss-Unable to assess, 4. Muscle Loss-Unable to assess, 5. Fluid Accumulation-No significant fluid accumulation, 6. [place] Guide Strength-Not measured Nutrition Risk Level: High Nutrient Needs: Estimated Daily Total Kcal: 1.3-1.4 ~>9316-3075 kcals/d Estimated Daily Protein (g): 1.5 gm/kg ~>108 gms/d Nutrition Diagnosis: Problem: Predicted suboptimal energy intake Etiology: related to Insufficient energy/nutrient consumption, Catabolic illness ? Signs and symptoms: as evidenced by (12.4% wt loss x 8 mo, Need for ONS ) Objective Information: Wound Type: None Current Nutrition Therapies: Oral Diet Orders: Cardiac Oral Diet intake: 76-100% Oral Nutrition Supplement (ONS) Orders: None Anthropometric Measures: Ht: 5' 9 (175.3 cm) Current Body Wt: 275 lb (124.7 kg) Admission Body Wt: 285 lb (129.3 kg) % Weight Change: , 3.5% wt loss x 1 wk; 12.4% wt loss x 8 mo per EMR Lynch Body Wt: 160 lb (72.6 kg), % Lynch Body 178% adm/ideal BMI Classification: BMI > or equal to 40.0 Obese Class III Nutrition Interventions: Modify current diet, Start ONS Continued Inpatient Monitoring, Education Not Indicated Nutrition Evaluation: Evaluation: Goals set Goals: Pt to meet 75-100% of est'd needs via PO Monitoring: Nutrition Progression, Meal Intake, Supplement Intake, Diet Tolerance, I&O, Weight,Pertinent Labs, Monitor Bowel Function Contact Number: [phone] * Emma Lewis MD - 10/06/2019 8:41 AM EST [facility] IN-PATIENT SERVICE [facility] Progress Note 10/06/2019 8:41 AM Name: Lorenzo Amato Acct: [id number] Room: IP Day: 7 Admit Date: 09/29/2019 6:36 PM PCP: Lion Carlson MD Code Status: Full Code Subjective: C/C: Chest pain Interval History Status: improved. Patient seen and examined at bedside, seen after his cardiac cath had 2 stents placed Patient denies any chest pain, shortness of breath, chills, fevers, nausea or vomiting. Patient vitals, labs and all providers notes were reviewed,from overnight shift and morning updateswere noted and discussed with the nurse Brief History: Per my partner Lorenzo Amato is a 49 y.o. Non-/non male who presents with No chief complaint on file. and is admitted to the hospital for the management of Coronary artery disease, occlusive. Mr. Amato is a transfer from OSH for acute onset of left side chest pressure that began at rest. Patient reports it began approx. 1 day ago and he denies any further associated symptoms. Of note-- patient had history of CO in 2005 with stent placement to LAD which presented with only symptom of left arm pain. He had stress test completed at [facility] which revealed multiple abnormalities consistent with high risk CAD. Patient subsequently had ECHO: and found to have reduced EF: 36% and left ventricular hypertrophy along with Diastolic Dysfunction. Given these findings--decision to transfer wasmade for cardiology evaluation and possible cardiac cath. PMH includes: MS (patient has not had any neurological follow up in several years, MS has been stable), Neuroendocrine gastric tumor with liver mets (diagnosed 2013 after presenting to hospital with GIB)-- on sandostatin (follows with Dr. Olivarez). Hx: DVT/PE (multiple secondary to hypercoagulablestate related to metastatic disease) patient in on chronic AC (recently Eliquis) as he developed multiple large/painful hematomas with Lovenox and had persistent bleeding with Warfarin-- he also has a GFF in place), NABOR with CPAP compliance, HTN,DMII, KELSEY On PE, patient is sitting up in bed and denies any symptoms. There is a large left scapula/mid backhematoma remaining from admission earlier this month, patient reports is smaller in size and no longer painful. is at bedside, hemodynamically stable, without signs of distress Review of Systems: Constitutional: negative for chills, fevers, sweats Respiratory: negative for cough, dyspnea on exertion, hemoptysis, shortness of breath, wheezing Cardiovascular: negative for chest pain, chest pressure/discomfort, lower extremity edema, palpitations Gastrointestinal: negative for abdominal pain, constipation, diarrhea, nausea, vomiting Neurological: negative for dizziness, headache Medications: Allergies: Allergies Allergen Reactions Toradol [Ketorolac Tromethamine] Other (See Comments) Pt went into kidney failure Lisinopril Other (See Comments) Cough Current Meds: Scheduled Meds: acetylcysteine 600 mg Oral BID sodium chloride flush 10 mL Intravenous 2 times per day insulin lispro 6 Units Subcutaneous TID AC Vitamin D 10,000 Units Oral Daily aspirin 81 mg Oral Daily atorvastatin 80 mg Oral Daily busPIRone 15 mg Oral TID DULoxetine 60 mg Oral Daily ferrous sulfate 325 mg Oral Daily with breakfast hydrALAZINE 75 mg Oral BID [Held by provider] insulin glargine 100 Units Subcutaneous BID [Held by provider] losartan 25 mg Oral Daily metoprolol 100 mg Oral BID pantoprazole 40 mg Oral BID AC tamsulosin 0.4 mg Oral Daily sodium chloride flush 10 mL Intravenous 2 times per day insulin lispro 0-18 Units Subcutaneous TID WC insulin lispro 0-9 Units Subcutaneous Nightly influenza virus vaccine 0.5 mL Intramuscular Once Continuous Infusions: sodium chloride 75 mL/hr at 10/05/19 2354 heparin (porcine) 16.654 Units/kg/hr (10/06/19 0705) dextrose PRN Meds: sodium chloride flush, acetaminophen, glucose, dextrose, glucagon (rDNA), dextrose, sennosides-docusate sodium, heparin (porcine), heparin (porcine), hydrOXYzine, meclizine, polyethylene glycol, sodium chloride flush, potassium chloride OR potassium alternative oral replacement ORpotassium chloride, potassium chloride, magnesium sulfate, magnesium hydroxide, ondansetron, nitroGLYCERIN Data: Past Medical History: has a past medical history of Anemia, Arthritis, CAD (coronary artery disease), Chronic kidney disease, CKD (chronic kidney disease), Depression, Disease of blood and blood forming organ, DVT (deep venous thrombosis) (HCC), GERD (gastroesophageal reflux disease), GERD (gastroes ophageal reflux disease), GI bleed, [place] filter in place, History of blood transfusion, Hypercholesteremia, Hypertension, Liver metastases (HCC), CO (myocardial infarction) (HCC), MS (multiple sclerosis) (HCC), Neuroendocrine tumor, Other disorders of kidney and ureter in diseases classified elsewhere, PE (pulmonary embolism), Type II or unspecified type diabetes mellitus without mention ofcomplication, not stated as uncontrolled, Unspecified sleep apnea, and Vitamin D deficiency. Social History: reports that he has never smoked. He has quit using smokeless tobacco. His smokeless tobacco use included chew. He reports that he does not drink alcohol or use drugs. Family History: Family History Problem Relation Age of Onset Cancer Mother ovarian Heart Disease Father Vitals: BP (!) 142/74 Pulse 62 Temp 97.7 F (36.5 C) (Axillary) Resp 20 Ht 5' 9 (1.753 m) Wt 275 lb 14.4 oz (125.1 kg) SpO2 100% BMI 40.74 kg/m Temp (24hrs), Av.8 F (36.6 C), Min:97.7 F (36.5 C), Max:97.9 F (36.6 C) Recent Labs 10/05/19 0901 10/05/19 1142 10/05/19 1632 10/05/19 2037 POCGLU 132* 188* 148* 228* I/O (24Hr): Intake/Output Summary (Last 24 hours) at 10/06/2019 0841 Last data filed at 10/06/2019 0555 Gross per 24 hour Intake 2001 ml Output 2500 ml Net -499 ml Labs: Hematology: Recent Labs 10/04/19 0412 11/22/19 0520 PLT 234 213 Chemistry: Recent Labs 10/04/19 0412 10/05/19 0433 10/06/19 0520 NA 138 137 136 K 4.0 4.2 4.2 CL 103 102 100 CO2 24 25 22 GLUCOSE 143* 188* 208* BUN 20 23* 24* CREATININE 1.54* 1.78* 1.79* ANIONGAP 11 10 14 LABGLOM 48* 41* 40* GFRAA 58* 49* 49* CALCIUM 8.7 8.6 8.7 Recent Labs 10/04/19 1651 10/04/19 2048 10/05/19 0901 10/05/19 1142 10/05/19 1632 10/05/19 2037 POCGLU 183* 223* 132* 188* 148* 228* ABG: Lab Results Component Value Date FIO2 TRAUMA 09/04/2019 Lab Results Component Value Date/Time SPECIAL NOT REPORTED 10/27/2018 01:44 PM Lab Results Component Value Date/Time CULTURE (A) 10/27/2018 01:44 PM STREPTOCOCCI, BETA HEMOLYTIC GROUP B 10 to 50,000 CFU/ML Radiology: No results found. Physical Examination: General appearance: alert, cooperative and no distress Mental Status: oriented to person, place and time and normal affect Lungs: clear to auscultation bilaterally, normal effort Heart: regular rate and rhythm, no murmur Abdomen: soft, nontender, nondistended, normal bowel sounds, no masses, hepatomegaly, splenomegaly Right groin and inspected, no bleeding or bruit Extremities: no edema, redness, tenderness in the calves Skin: no gross lesions, rashes, induration Assessment: Hospital Problems Last Modified POA * (Principal) Coronary artery disease, occlusive 09/30/2019 Yes Multiple sclerosis (HCC) 09/30/2019 Yes CAD (coronary artery disease) 09/30/2019 Yes Iron deficiency anemia 09/30/2019 Yes NABOR (obstructive sleep apnea) 09/30/2019 Yes Overview Signed 01/10/2013 1:38 PM by Yessenia Kim CPAP 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) 09/30/2019 Yes Benign essential HTN 09/30/2019 Yes GERD (gastroesophageal reflux disease) 09/30/2019 Yes Pulmonary embolism (HCC) 09/30/2019 Yes nursing home current use of anticoagulant therapy 09/30/2019 Yes Liver metastases (HCC) 09/30/2019 Yes DVT of lower extremity, bilateral (HCC) 09/30/2019 Yes Gastric carcinoma (HCC) (Chronic) 09/30/2019 Yes CKD (chronic kidney disease) stage 3, GFR 30-59 ml/min (HCC) 09/30/2019 Yes History of pulmonary embolus (PE) 09/30/2019 Yes Subcutaneous hematoma 09/30/2019 Yes Chest pain 10/02/2019 Yes Plan: Multi coronary vessel disease on initial cath 10/02 , not a candidate for CABG: S/P another [facility] 10/06 with TIFFANIE to LAD and LCX CKD3 / nephrotic range proteinuria: monitor creat closely post cath, nephro managing Static gastric carcinoid with metastasis to the liver: Maintained on Sandostatin and this is controlled: Oncology is consulted. DVT and PE / patient recently developed subcutaneous hematoma: Currently stable, per hematology oncology okay to resume dual antiplatelets and Eliquis Discharge planning in a.m. Emma Lewis MD 10/06/2019 8:41 AM * Kanwal Walker RN - 10/06/2019 8:29 AM EST Patient arrived from in-house bed, consent signed, all questions answered. Pt ready for procedure. Call light to reach with side rails up 2 of 2. Rt groin checked, no Clipping needed. at bedsidewith patient. * Trevor Serna MD - 10/05/2019 4:21 PM EST _ Today's Date: 10/05/2019 Patient Name: Lorenzo Amato Date of admission: 09/29/2019 6:36 PM Patient's age: 49 y.o., 1970 Admission Dx: Coronary artery disease, occlusive [I25.10] Chest pain [R07.9] Requesting Physician: Tunde Pino MD CHIEF COMPLAINT: Chest pain. Coronary artery disease. Metastatic carcinoid tumor. Consult for anticoagulation. SUBJECTIVE: . The patient was seen and examined. Patient is clinically stable. No chest pain. No shortness of breath. No active bleeding. Patient had cardiac cath Wednesday he had high-grade obstructions of multiple coronaries so no stents were applied but patient will need open heart surgery. It was determined today by cardiothoracic that patient is not a surgical candidate. He will have cardiac cath tomorrow with stenting. BRIEF CASE HISTORY: The patient is a 49 y.o. male who is admitted to the hospital for further management of acute coronary ischemia. The patient is known to our practice. 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 He is maintained on Sandostatin. His disease is well controlled. Vinnie elliott had previous history of DVT and pulmonary embolism. He had inferior vena cava filter placement. He has been on different anticoagulation drugs. Previously was on Coumadin and Lovenox. He developed multiple complications. The patient was recently hospitalized because of huge hematoma in the left upper chest wall posteriorly with major drop of the hemoglobin level. He was hospitalized and received blood transfusions. Anticoagulation with Eliquis was resumed after stabilization. Patient was hospitalized because of chest pain with positive stress test. He was evaluated by cardiology. Plan to have cardiac cath and possible stents on Wednesday. Patient is feeling better now in the hospital. No fever or infections. No other complaints. Past Medical History: has a past medical history of Anemia, Arthritis, CAD (coronary artery disease), Chronic kidney disease, CKD (chronic kidney disease), Depression, Disease of blood and blood forming organ, DVT (deep venous thrombosis) (HCC), GERD (gastroesophageal reflux disease), GERD (gastroes ophageal reflux disease), GI bleed, [place] filter in place, History of blood transfusion, Hypercholesteremia, Hypertension, Liver metastases (HCC), CO (myocardial infarction) (HCC), MS (multiple sclerosis) (HCC), Neuroendocrine tumor, Other disorders of kidney and ureter in diseases classified elsewhere, PE (pulmonary embolism), Type II or unspecified type diabetes mellitus without mention ofcomplication, not stated as uncontrolled, Unspecified sleep apnea, and Vitamin D deficiency. Past Surgical History: has a past surgical history that includes Tonsillectomy; Appendectomy; Percutaneous Transluminal Coronary Angio; Colonoscopy; Vasectomy (18 years ago); Thyroid surgery (05/11/13); Coronary angioplasty with stent (2004); and Upper gastrointestinal endoscopy (10/14/2016). Family History: family history includes Cancer in his mother; Heart Disease in his father. Social History: reports that he has never smoked. He has quit using smokeless tobacco. His smokeless tobacco use included chew. He reports that he does not drink alcohol or use drugs. Medications: Prior to Admission medications Medication Sig Start Date End Date Taking? Authorizing Provider Cholecalciferol (VITAMIN D3 PO) Take 10,000 Units by mouth daily Historical Provider, hydrOXYzine (ATARAX) 25 MG tablet Take 1 tablet by mouth 3 times daily as needed for Anxiety 09/29/19 10/09/19 Lion Carlson MD losartan (COZAAR) 25 MG tablet Take 25 mg by mouth daily To be starting this medication every otherday, has not started yet. Historical Provider, ferrous sulfate 325 (65 Fe) MG EC tablet Take 1 tablet by mouth daily (with breakfast) 09/09/19 Stacy Vitale MD polyethylene glycol (GLYCOLAX) packet Take 17 g by mouth daily as needed for Constipation 09/08/19 10/08/19 Stacy Vitale MD senna (SENOKOT) 8.6 MG tablet Take 1 tablet by mouth nightly as needed (constipation) 09/08/19 10/08/19 Stacy Vitale MD tamsulosin (FLOMAX) 0.4 MG capsule Take 1 capsule by mouth daily 09/09/19 Stacy Vitale MD apixaban (ELIQUIS) 5 MG TABS tablet Take 1 tablet by mouth 2 times daily 09/08/19 Stacy Vitale MD busPIRone (BUSPAR) 15 MG tablet TAKE ONE TABLET BY MOUTH THREE TIMES A DAY 08/17/19 Lion Carlson MD hydrALAZINE (APRESOLINE) 50 MG tablet TAKE 1 1/2 TABLETS BY MOUTH TWICE DAILY 06/16/19 Lion Carlson MD metoprolol (LOPRESSOR) 100 MG tablet TAKE 1 TABLET BY MOUTH 2 TIMES A DAY 06/09/19 Lion Carlson MD atorvastatin (LIPITOR) 80 MG tablet TAKE 1 TABLET BY MOUTH ONE TIME DAILY 05/11/19 Lion Carlson MD omeprazole (PRILOSEC) 40 MG delayed release capsule TAKE 1 CAPSULE BY MOUTH 2 TIMES A DAY 04/14/19 Lion Carlson MD SANDOSTATIN LAR DEPOT 30 MG injection INJECT 30 MG INTO THE MUSCLE EVERY 28 DAYS 04/11/19 Trevor Serna MD DULoxetine (CYMBALTA) 60 MG extended release capsule TAKE 1 CAPSULE BY MOUTH ONE TIME A DAY 04/11/19Lion Carlson MD furosemide (LASIX) 20 MG tablet Take 1 tablet by mouth (20 mg) every other day Patient taking differently: See Admin Instructions As needed wt gain swelling 03/06/19 Lion Carlson MD insulin lispro (HUMALOG KWIKPEN) 100 UNIT/ML pen Inject 5 Units into the skin 3 times daily (beforemeals) 03/06/19 Lion Carlson MD Insulin Pen Needle (B-D ULTRAFINE III SHORT PEN) 31G X 8 MM MISC Use as directed with insulin pen needles, up to 5x/day 03/06/19 Lion Carlson MD Blood Glucose Monitoring Suppl ([employer] AUTOCODE BLOOD GLUCOSE) w/Device KIT Use as directed to test up to 4 times daily 03/06/19 MD JUDITH Patel LANCETS 28G MISC Use as directed to test up to 4 times daily 03/06/19 Lion Carlson MD blood glucose test strips ([employer] NO CODING BLOOD GLUC) strip 1 each by In Vitro route 4 times daily As needed. 03/06/19 Lion Carlson MD insulin glargine (TOUJEO MAX SOLOSTAR) 300 UNIT/ML injection pen Inject 130 Units into the skin 2 times daily 08/02/18 Lion Carlson MD meclizine (ANTIVERT) 25 MG tablet Take 1 tablet by mouth 3 times daily as needed for Dizziness 02/25/18 Lion Carlson MD Current Facility-Administered Medications Medication Dose Route Frequency Provider Last Rate Last Dose acetylcysteine (MUCOMYST) 20 % solution 600 mg 600 mg Oral BID Mino Pino MD 0.9 % sodium chloride infusion Intravenous Continuous Mino Pino MD heparin 25,000 units in dextrose 5% 250 mL infusion 12 Units/kg/hr Intravenous Continuous Jim Mendoza MD 24.2 mL/hr at 10/05/191958 18.5 Units/kg/hr at 10/05/191958 sodium chloride flush 0.9 % injection 10 mL 10 mL Intravenous 2 times per day Jim Mendoza MD 10 mL at 10/05/19 0932 sodium chloride flush 0.9 % injection 10 mL 10 mL Intravenous PRN Jim Mendoza MD acetaminophen (TYLENOL) tablet 650 mg 650 mg Oral Q4H PRN Jim Mendoza MD LORazepam (ATIVAN) injection 1 mg 1 mg Intravenous Once Nuria Hassan APRN - MARIA EUGENIA insulin lispro (HUMALOG) injection vial 6 Units 6 Units Subcutaneous TID AC Jim Mendoza MD 6 Units at 10/04/19 1657 glucose (GLUTOSE) 40 % oral gel 15 g 15 g Oral PRN Jim Mendoza MD dextrose 50 % IV solution 12.5 g Intravenous PRN Jim Mendoza MD glucagon (rDNA) injection 1 mg 1 mg Intramuscular PRN Jim Mendoza MD dextrose 5 % solution 100 mL/hr Intravenous PRN Jim Mendoza MD sennosides-docusate sodium (SENOKOT-S) 8.6-50 MG tablet 2 tablet 2 tablet Oral BID PRN Jim Mendoza MD 2 tablet at 10/01/19 1046 Vitamin D (CHOLECALCIFEROL) tablet 10,000 Units 10,000 Units Oral Daily Jim Mendoza MD 10,000Units at 10/05/19 1209 aspirin chewable tablet 81 mg 81 mg Oral Daily Jim Mendoza MD 81 mg at 10/05/19 0933 heparin (porcine) injection 4,000 Units 4,000 Units Intravenous PRN Jim Mendoza MD 4,000 Units at 10/03/19 0107 heparin (porcine) injection 2,000 Units 2,000 Units Intravenous PRN Jim Mendoza MD 2,000 Units at 10/03/19 1602 atorvastatin (LIPITOR) tablet 80 mg 80 mg Oral Daily Jim Mendoza MD 80 mg at 10/05/19 0933 busPIRone (BUSPAR) tablet 15 mg 15 mg Oral TID Jim Mendoza MD 15 mg at 10/05/19 0933 DULoxetine (CYMBALTA) extended release capsule 60 mg 60 mg Oral Daily Jim Mendoza MD 60 mg at112/05/18 0933 ferrous sulfate EC tablet 325 mg 325 mg Oral Daily with breakfast Jim Mendoza MD 325 mg at 10/05/19 0933 hydrALAZINE (APRESOLINE) tablet 75 mg 75 mg Oral BID Jim Mendoza MD 75 mg at 10/05/19 0932 hydrOXYzine (ATARAX) tablet 25 mg 25 mg Oral TID PRN Jim Mendoza MD 25 mg at 10/02/192023 [Held by provider] insulin glargine (LANTUS) injection vial 100 Units 100 Units Subcutaneous BID Jim Mendoza MD 50 Units at 10/03/192136 [Held by provider] losartan (COZAAR) tablet 25 mg 25 mg Oral Daily Jim Mendoza MD 25 mg at 10/05/19 0932 meclizine (ANTIVERT) tablet 25 mg 25 mg Oral TID PRN Jim Mendoza MD metoprolol tartrate (LOPRESSOR) tablet 100 mg 100 mg Oral BID Jim Mendoza MD 100 mg at 10/05/19 09 pantoprazole (PROTONIX) tablet 40 mg 40 mg Oral BID AC Jim Mendoza MD 40 mg at 10/05/19 165 polyethylene glycol (GLYCOLAX) packet 17 g 17 g Oral Daily PRN Jim Mendoza MD tamsulosin (FLOMAX) capsule 0.4 mg 0.4 mg Oral Daily Jim Mendoza MD 0.4 mg at 10/05/19 09 sodium chloride flush 0.9 % injection 10 mL 10 mL Intravenous 2 times per day Jim Mendoza MD 10 mL at 10/01/192105 sodium chloride flush 0.9 % injection 10 mL 10 mL Intravenous PRN Jim Mendoza MD potassium chloride (KLOR-CON M) extended release tablet 40 mEq 40 mEq Oral PRN Jim Mendoza MD Or potassium bicarb-citric acid (EFFER-K) effervescent tablet 40 mEq 40 mEq Oral PRN Jim Mendoza MD Or potassium chloride 10 mEq/100 mL IVPB (Peripheral Line) 10 mEq Intravenous PRN Jim Mendoza MD potassium chloride 10 mEq/100 mL IVPB (Peripheral Line) 10 mEq Intravenous PRN Jim Mendoza MD magnesium sulfate 1 g in dextrose 5% 100 mL IVPB 1 g Intravenous PRN Jim Mendoza MD magnesium hydroxide (MILK OF MAGNESIA) 400 MG/5ML suspension 30 mL 30 mL Oral Daily PRN Jim Mendoza MD ondansetron (ZOFRAN) injection 4 mg 4 mg Intravenous Q6H PRN Jim Mendoza MD nitroGLYCERIN (NITROSTAT) SL tablet 0.4 mg 0.4 mg Sublingual Q5 Min PRN Jim Mendoza MD insulin lispro (HUMALOG) injection vial 0-18 Units 0-18 Units Subcutaneous TID WC Jim Mendoza MD 3 Units at 10/05/191654 insulin lispro (HUMALOG) injection vial 0-9 Units 0-9 Units Subcutaneous Nightly Jim Mendoza MD 3 Units at 10/04/192051 influenza quadrivalent split vaccine (FLUZONE;FLUARIX;FLULAVAL;AFLURIA) injection 0.5 mL 0.5 mL Intramuscular Once Jim Mendoza MD Allergies: Toradol [ketorolac tromethamine] and Lisinopril REVIEW OF SYSTEMS: General: Positive for weakness and fatigue.. No unanticipated weight loss or decreased appetite. Nofever or chills. Eyes: No blurred vision, eye pain or double vision. Ears: No hearing problems or drainage. No tinnitus. Throat: No sore throat, problems with swallowing or dysphagia. Respiratory: No cough, sputum or hemoptysis. No shortness of breath. No pleuritic chest pain. Cardiovascular: As above. Gastrointestinal: No problems with swallowing. No abdominal pain or bloating. No nausea or vomiting. No diarrhea or constipation. No GI bleeding. Genitourinary: No dysuria, hematuria, frequency or urgency. Musculoskeletal: No muscle aches or pains. No limitation of movement. No back pain. No gait disturbance, No joint complaints. Dermatologic: No skin rashes or pruritus. No skin lesions or discolorations. Psychiatric: No depression, anxiety, or stress or signs of schizophrenia. No change in mood or affect. Hematologic: Hematomas as above. Infectious disease: No fever, chills or frequent infections. Endocrine: No polydipsia or polyuria. No temperature intolerance. Neurologic: No headaches or dizziness. No weakness or numbness of the extremities. No changes in balance, coordination, memory, mentation, behavior. Allergic/Immunologic: No nasal congestion or hives. No repeated infections. PHYSICAL EXAM: BP 130/62 Pulse 77 Temp 97.7 F (36.5 C) (Oral) Resp 18 Ht 5' 9 (1.753 m) Wt 282 lb 12.8 oz (128.3 kg) SpO2 98% BMI 41.76 kg/m Temp (24hrs), Av.8 F (36.6 C), Min:97.7 F (36.5 C), Max:97.9 F (36.6 C) General appearance -patient is overweight. Well appearing, not in pain or distress Mental status - good mood, alert and oriented Eyes - pupils equal and reactive, extraocular eye movements intact Ears - bilateral TM's and external ear canals normal Nose - normal and patent, no erythema, discharge or polyps Mouth - mucous membranes moist, pharynx normal without lesions Neck - supple, no significant adenopathy Lymphatics - no palpable lymphadenopathy, no hepatosplenomegaly Chest - clear to auscultation, no wheezes, rales or rhonchi, symmetric air entry. Very large hematoma in the posterior chest wall in the left upper back. Heart - normal rate, regular rhythm, normal S1, S2, no murmurs, rubs, clicks or gallops Abdomen - soft, nontender, nondistended, no masses or organomegaly Neurological - alert, oriented, normal speech, no focal findings or movement disorder noted Musculoskeletal - no joint tenderness, deformity or swelling Extremities - peripheral pulses normal, no pedal edema, no clubbing or cyanosis Skin - normal coloration and turgor, no rashes, no suspicious skin lesions noted DATA: Labs: CBC: Recent Labs 10/04/19411 PLT 234 BMP: Recent Labs 10/04/1941110/05/19432 NA 138 137 K 4.0 4.2 CO2 24 25 BUN 20 23* CREATININE 1.54* 1.78* LABGLOM 48* 41* GLUCOSE 143* 188* PT/INR: No results for input(s): PROTIME, INR in the last 72 hours. APTT: Recent Labs 10/04/19204310/05/19432 APTT 63.9* 67.9* LIVER PROFILE: No results for input(s): AST, ALT, LABALBU in the last 72 hours. 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] 10/11/2016 DVT of lower extremity, bilateral (HCC) [I82.403] 06/14/2013 Liver metastases (HCC) [C78.7] 05/25/2013 Pulmonary embolism (HCC) [I26.99] 09/07/2012 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 [Z79.01] GERD (gastroesophageal reflux disease) [K21.9] 02/04/2012 Multiple sclerosis (HCC) [G35] 10/01/2011 Iron deficiency anemia [D50.9] 10/01/2011 CAD (coronary artery disease) [I25.10] 10/01/2011 NABOR (obstructive sleep apnea) [G47.33] 10/01/2011 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) [E11.22, E11.65] Benign essential HTN [I10] RECOMMENDATIONS: 1. Records and labs and images were reviewed and discussed with the patient. 2. Patient has metastatic gastric carcinoid with liver metastases maintained on Sandostatin LAR every 4 weeks. Disease is controlled. 3. Patient had previous DVT and pulmonary embolism and maintained on anticoagulation with Eliquis. 4. Patient developed recent large subcutaneous hematoma and anticoagulation was resumed after stabilization. 5. Currently with acute coronary syndrome. Cardiac cath Wednesday showed multiple blood vessels with very high-grade obstruction. Plan was to have CABG. Patient was evaluated by cardiothoracic and felt to be not a surgical candidate. He will have cath and stents tomorrow. 6. Patient will be back on multiple antiplatelets in addition to Eliquis. He and his understand the benefit and risk. 7. We will continue to follow. Discussed with patient and his and Nurse. MD Trevor Moreira MD This note is created with the assistance of a speech recognition program. While intending to generate a document that actually reflects the content of the visit, the document can still have some errors including those of syntax and sound a like substitutions which may escape proof reading. It such instances, actual meaning can be extrapolated by contextual diversion. * Augusta Aly APRN - CLAIMS ADJUSTOR - 10/05/2019 2:05 PM EST [employer] Progress Note Date: 10/05/2019 Patient name: Lorenzo Amato Date of admission: 09/29/2019 6:36 PM Date of : 1970 PCP: Lion Carlson MD Reason for Admission: Coronary artery disease, occlusive [I25.10] Chest pain [R07.9] Subjective: Clinical Changes / Abnormalities: Pt seen and examined in the room. Pt denies any CP or SOB. Familyat bedside. Pt states he was told he is not a candidate for CABG and needs PCI now. He states he isok with change in plan of care. Medications: Scheduled Meds: sodium chloride flush 10 mL Intravenous 2 times per day LORazepam 1 mg Intravenous Once insulin lispro 6 Units Subcutaneous TID AC Vitamin D 10,000 Units Oral Daily aspirin 81 mg Oral Daily atorvastatin 80 mg Oral Daily busPIRone 15 mg Oral TID DULoxetine 60 mg Oral Daily ferrous sulfate 325 mg Oral Daily with breakfast hydrALAZINE 75 mg Oral BID [Held by provider] insulin glargine 100 Units Subcutaneous BID [Held by provider] losartan 25 mg Oral Daily metoprolol 100 mg Oral BID pantoprazole 40 mg Oral BID AC tamsulosin 0.4 mg Oral Daily sodium chloride flush 10 mL Intravenous 2 times per day insulin lispro 0-18 Units Subcutaneous TID WC insulin lispro 0-9 Units Subcutaneous Nightly influenza virus vaccine 0.5 mL Intramuscular Once Continuous Infusions: heparin (porcine) 18.654 Units/kg/hr (10/04/19 2216) dextrose CBC: Recent Labs 10/04/19 0412 PLT 234 BMP: Recent Labs 10/03/19 0645 10/04/19 0412 10/05/19 0433 NA 139 138 137 K 4.3 4.0 4.2 CL 103 103 102 CO2 25 24 25 BUN 18 20 23* CREATININE 1.50* 1.54* 1.78* GLUCOSE 109* 143* 188* Hepatic: No results for input(s): AST, ALT, ALB, BILITOT, ALKPHOS in the last 72 hours. Troponin: No results for input(s): TROPHS in the last 72 hours. BNP: No results for input(s): BNP in the last 72 hours. Lipids: No results for input(s): CHOL, HDL in the last 72 hours. Invalid input(s): LDLCALCU INR: No results for input(s): INR in the last 72 hours. EK09/28/19 Normal sinus rhythm, inferior infarct ECHO: 09/28/19 Left ventricle is normal in size. Severe concentric left ventricular hypertrophy. Global left ventricular systolic function is normal with an estimated ejection fraction of 60 % . Evidence of diastolic dysfunction. Left atrium is at upper limits of normal. Right atrium is mildly dilated . Normal right ventricular size and function. Aortic valve leaflets are mildly thickened. No aortic stenosis. Thickened mitral valve leaflets. Mild mitral regurgitation. Stress test: 09/29/19 1. Abnormal myocardial perfusion study. There is a moderate/large perfusion defect of moderate/severe intensity in the anterolateral, lateral, inferolateral, inferior region(s) during stress and restimaging, which is most consistent with an old myocardial infarction with judy-infarct ischemia. 2. Global left ventricular systolic function was abnormal with an EF of 36% with regional wall motion abnormalities. Overall these results are most consistent with 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/high risk for significant coronary artery disease. CARDIAC CATH 10/02/19 Findings: LMCA: No significant disease and mild irregularities. LAD: Mid 90% stenosis LCx: Patent proximal stent Distal 80% stenosis RCA: 100% proximal stenosis with collateral from the left system Coronary Tree Dominance: Right The LV gram was not performed Estimated blood loss: 5 ml Conclusions: Multivessel significant CAD Recommendations: 1. CT surgery consult for Urgent CABG 2. Medical Therapy. 3. Risk Factors Modification. 4. Post Cath Protocol Objective: Vitals: BP 113/66 Pulse 61 Temp 97.9 F (36.6 C) (Oral) Resp 20 Ht 5' 9 (1.753 m) Wt 282 lb 12.8 oz (128.3 kg) SpO2 98% BMI 41.76 kg/m General appearance: alert and cooperative with exam HEENT: Head: Normocephalic, no lesions, without obvious abnormality. Neck: no JVD, trachea midline, no adenopathy Lungs: Clear to auscultation Heart: Regular rate and rhythm, s1/s2 auscultated, no murmurs Abdomen: soft, non-tender, bowel sounds active Extremities: no edema Neurologic: not done Assessment / Acute Cardiac Problems: 5. Abnormal stress test with judy-infarct ischemia and EF 36% 6. Preserved LVEF on echo 7. CAD s/p LCX stent (3.5 x 20 mm) 8. CKD-3 9. H/O STEMI in 2006 as noted above 10. HTN 11. Hyperlipidemia 12. Insulin-dependent DM-2 13. 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 MVD per cardiac cath. On ASA 81, Lipitor 80, Hydralazine 75 bid, Losartan 25, Lopressor 100 bid.Per CTS, not a candidate for CABG and will need to proceed with PCI. Will discuss with interventionalist. Possibly later today 2. CKD. Cleared by nephrology for PCI. 2. Eliquis discontinued for cardiac cath and on heparin bridging. 3. Bilateral Acute DVTs. Hematology following and plan for Eliquis to be resumed after cardiac cath. [employer] [phone] * Mino Pino MD - 10/05/2019 1:21 PM EST Renal Progress Note Patient : Lorenzo Amato; 49 y.o. Location: Attending: Tunde Pino MD Admit Date: 09/29/2019 Hospital Day: 6 Subjective: Patient seen and examined. No acute issues overnight reported. Patient had a cardiac catheterization done on 10/02/2019 which showed multivessel significant coronary artery disease and CT surgery was consulted for CABG evaluation. Apparently patient is not a candidate for CABG per patient's nurse official CT surgery note pending. Patient's serum creatinine today is 1.78 mg/DL his baseline creatinine seems to be around 1.5-1.9 mg/DL. Good urine output. Outpatient Medications: Medications Prior to Admission: Cholecalciferol (VITAMIN D3 PO), Take 10,000 Units by mouth daily hydrOXYzine (ATARAX) 25 MG tablet, Take 1 tablet by mouth 3 times daily as needed for Anxiety losartan (COZAAR) 25 MG tablet, Take 25 mg by mouth daily To be starting this medication every other day, has not started yet. ferrous sulfate 325 (65 Fe) MG EC tablet, Take 1 tablet by mouth daily (with breakfast) polyethylene glycol (GLYCOLAX) packet, Take 17 g by mouth daily as needed for Constipation senna (SENOKOT) 8.6 MG tablet, Take 1 tablet by mouth nightly as needed (constipation) tamsulosin (FLOMAX) 0.4 MG capsule, Take 1 capsule by mouth daily apixaban (ELIQUIS) 5 MG TABS tablet, Take 1 tablet by mouth 2 times daily busPIRone (BUSPAR) 15 MG tablet, TAKE ONE TABLET BY MOUTH THREE TIMES A DAY hydrALAZINE (APRESOLINE) 50 MG tablet, TAKE 1 1/2 TABLETS BY MOUTH TWICE DAILY metoprolol (LOPRESSOR) 100 MG tablet, TAKE 1 TABLET BY MOUTH 2 TIMES A DAY atorvastatin (LIPITOR) 80 MG tablet, TAKE 1 TABLET BY MOUTH ONE TIME DAILY omeprazole (PRILOSEC) 40 MG delayed release capsule, TAKE 1 CAPSULE BY MOUTH 2 TIMES A DAY SANDOSTATIN LAR DEPOT 30 MG injection, INJECT 30 MG INTO THE MUSCLE EVERY 28 DAYS DULoxetine (CYMBALTA) 60 MG extended release capsule, TAKE 1 CAPSULE BY MOUTH ONE TIME A DAY furosemide (LASIX) 20 MG tablet, Take 1 tablet by mouth (20 mg) every other day (Patient taking differently: See Admin Instructions As needed wt gain swelling) insulin lispro (HUMALOG KWIKPEN) 100 UNIT/ML pen, Inject 5 Units into the skin 3 times daily (before meals) Insulin Pen Needle (B-D ULTRAFINE III SHORT PEN) 31G X 8 MM MISC, Use as directed with insulin pen needles, up to 5x/day Blood Glucose Monitoring Suppl ([employer] AUTOCODE BLOOD GLUCOSE) w/Device KIT, Use as directed to test up to 4 times daily [employer] LANCETS 28G MISC, Use as directed to test up to 4 times daily blood glucose test strips ([employer] NO CODING BLOOD GLUC) strip, 1 each by In Vitro route 4 times daily As needed. insulin glargine (TOUJEO MAX SOLOSTAR) 300 UNIT/ML injection pen, Inject 130 Units into the skin 2 times daily meclizine (ANTIVERT) 25 MG tablet, Take 1 tablet by mouth 3 times daily as needed for Dizziness Current Medications: Scheduled Meds: sodium chloride flush 10 mL Intravenous 2 times per day LORazepam 1 mg Intravenous Once insulin lispro 6 Units Subcutaneous TID AC Vitamin D 10,000 Units Oral Daily aspirin 81 mg Oral Daily atorvastatin 80 mg Oral Daily busPIRone 15 mg Oral TID DULoxetine 60 mg Oral Daily ferrous sulfate 325 mg Oral Daily with breakfast hydrALAZINE 75 mg Oral BID [Held by provider] insulin glargine 100 Units Subcutaneous BID losartan 25 mg Oral Daily metoprolol 100 mg Oral BID pantoprazole 40 mg Oral BID AC tamsulosin 0.4 mg Oral Daily sodium chloride flush 10 mL Intravenous 2 times per day insulin lispro 0-18 Units Subcutaneous TID WC insulin lispro 0-9 Units Subcutaneous Nightly influenza virus vaccine 0.5 mL Intramuscular Once Continuous Infusions: heparin (porcine) 18.654 Units/kg/hr (10/04/196) dextrose PRN Meds: sodium chloride flush, acetaminophen, glucose, dextrose, glucagon (rDNA), dextrose, sennosides-docusate sodium, heparin (porcine), heparin (porcine), hydrOXYzine, meclizine, polyethylene glycol, sodium chloride flush, potassium chloride OR potassium alternative oral replacement ORpotassium chloride, potassium chloride, magnesium sulfate, magnesium hydroxide, ondansetron, nitroGLYCERIN Input/Output: I/O last 3 completed shifts: In: 1328 [P.O.:750; I.V.:578] Out: 4600 [Urine:4600]. Patient Vitals for the past 96 hrs (Last 3 readings): Weight 10/05/19 0552 282 lb 12.8 oz (128.3 kg) 10/04/19 0547 284 lb 11.2 oz (129.1 kg) 10/03/19 0600 285 lb 1.6 oz (129.3 kg) Vital Signs: Temperature: Temp: 97.9 F (36.6 C) TMax: Temp (24hrs), Av.9 F (36.6 C), Min:97.7 F (36.5 C), Max:97.9 F (36.6 C) Respirations: Resp: 20 Pulse: Pulse: 61 BP: BP: 113/66 BP Range: Systolic (24hrs), Av , Min:113 , Max:139 Diastolic (24hrs), Av, Min:64, Max:79 Physical Examination: General: AAO x 3, speaking in full sentences, no accessory muscle use. HEENT: Atraumatic, normocephalic, no throat congestion, moist mucosa. Eyes: Pupils equal, round and reactive to light, EOMI. Neck: Supple Chest: Bilateral vesicular breath sounds, no rales or wheezes. Cardiac: S1 S2 RR, no murmurs, gallops or rubs. Abdomen: Soft, non-tender, no masses or organomegaly, BS audible. : No suprapubic or flank tenderness. Neuro: AAO x 3, No FND. SKIN: No rashes, good skin turgor. Extremities: No edema. Labs: Recent Labs 10/04/19411 PLT 234 BMP: Recent Labs 10/03/19 0645 10/04/1941110/05/19 0433 NA 139 138 137 K 4.3 4.0 4.2 CL 103 103 102 CO2 25 24 25 BUN 18 20 23* CREATININE 1.50* 1.54* 1.78* GLUCOSE 109* 143* 188* CALCIUM 8.6 8.7 8.6 XAVIER: Lab Results Component Value Date XAVIER NEGATIVE 04/03/2013 SPEP: Lab Results Component Value Date PROT 5.4 09/30/2019 PATH ELECTRONICALLY SIGNED. DUNIA ROBERT M.D. 04/03/2013 UPEP: Lab Results Component Value Date LABPE 04/03/2013 ELEVATED PROTEIN CONCENTRATION. MOST SERUM PROTEINS ARE DETECTED IN THIS URINE. C3: Lab Results Component Value Date C3 170 04/03/2013 C4: Lab Results Component Value Date C4 41 04/03/2013 MPO ANCA: Lab Results Component Value Date MPO 15 04/03/2013 PR3 ANCA: Lab Results Component Value Date PR3 11 04/03/2013 Urinalysis/Chemistries: Lab Results Component Value Date NITRU NEGATIVE 09/28/2019 COLORU YELLOW 09/28/2019 PHUR 6.0 09/28/2019 WBCUA NOT REPORTED 09/28/2019 RBCUA 0 TO 2 09/28/2019 MUCUS NOT REPORTED 09/28/2019 TRICHOMONAS NOT REPORTED 09/28/2019 YEAST NOT REPORTED 09/28/2019 BACTERIA NOT REPORTED 09/28/2019 CLARITYU clear 04/05/2014 SPECGRAV 1.020 09/28/2019 LEUKOCYTESUR NEGATIVE 09/28/2019 UROBILINOGEN Normal 09/28/2019 BILIRUBINUR NEGATIVE 09/28/2019 BILIRUBINUR neg 04/05/2014 BLOODU neg 04/05/2014 GLUCOSEU 1000 mg/dL 09/28/2019 KETUA NEGATIVE 09/28/2019 AMORPHOUS NOT REPORTED 09/28/2019 Urine Sodium: Lab Results Component Value Date DESIREE <10 06/16/2013 Urine Potassium: Lab Results Component Value Date KUR 18.0 06/16/2013 Urine Chloride: Lab Results Component Value Date CLUR <15 06/16/2013 Urine Osmolarity: Lab Results Component Value Date OSMOU 589 06/16/2013 Urine Creatinine: Lab Results Component Value Date LABCREA 143.7 08/29/2019 Radiology: Reviewed. Assessment: 1. Stage III chronic kidney disease with heavy proteinuria. His baseline creatinine is 1.5-1.9 mg/dL. Today's creatinine is slightly better than baseline at 1.78 mg/dl. 2. S/p cardiac catheterization 10/02/19 -multivessel significant coronary artery disease. CT surgery consulted for possible CABG vs stent placement. 3. Hypertension with the patient's blood pressure under good control 4. Nephrotic range proteinuria 5. Obstructive sleep apnea 6. Type 2 diabetes 7. 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 Heme-onc on board. 8. 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 Plan: 1. If patient is not a candidate for CABG, will require cardiac stents possibly today. Risks versusbenefits were discussed with the patient of contrast injury including all the way up to the possibility of dialysis. Patient understands and is agreeable with getting the procedure done. 2. Will give IV fluids 75 cc an hour normal saline 6 hours before and 6 hours after the cardiac catheterization. 3. Mucomyst 100 mg 2 doses before 2 doses after cardiac catheterization. 4. Continue monitor strict I's and O's renal function. 5. BMP in a.m. 6. Hold Cozaar for now. 7. Will follow. Patient's nurse was updated. Nutrition Please ensure that patient is on a renal diet/TF. Avoid nephrotoxic drugs/contrast exposure. We will continue to follow along with you. Mino Pino MD [facility] This note is created with the assistance of a speech-recognition program. While intending to generate a document that actually reflects the content of the visit, no guarantees can be provided that every mistake has been identified and corrected by editing. * Tunde Pino MD - 10/05/2019 8:34 AM EST [facility] IN-PATIENT SERVICE [facility] Progress Note 10/05/2019 8:34 AM Name: Lorenzo Amato Acct: [id number] Room: IP Day: 6 Admit Date: 09/29/2019 6:36 PM PCP: Lion Carlson MD Code Status: Full Code Subjective: C/C: Transfer from OSH: Left side chest pressure Interval History Status: Earlier cardiac cath had shown MV CAD and he was scheduled for CABG by CT surgery CABG was canceled by CT surgery he being a high risk patient Is being scheduled for cardiac cath again for PCI possibly today Patient denies chest pain Using his CPAP every night Was on Eliquis at home which is on hold Nephrology has cleared him for cardiac cath and started Mucomyst again, creatinine 1.78 today Hematology/oncology also had cleared him for cath previously A1c 8.1, last blood sugars 188 Brief History: Lorenzo Amato is a 49 y.o. Non-/non male who presents with No chief complaint on file. and is admitted to the hospital for the management of Coronary artery disease, occlusive. Mr. Amato is a transfer from OS for acute onset of left side chest pressure that began at rest. Patient reports it began approx. 1 day ago and he denies any further associated symptoms. Of note-- patient had history of CO in 2005 with stent placement to LAD which presented with only symptom of left arm pain. He had stress test completed at [facility] which revealed multiple abnormalities consistent with high risk CAD. Patient subsequently had ECHO: and found to have reduced EF: 36% and left ventricular hypertrophy along with Diastolic Dysfunction. [facility] these [facility]. PMH includes: MS (patient has not had any neurological follow up in several years, MS has been stable), Neuroendocrine gastric tumor with liver mets (diagnosed 2013 after presenting to hospital with GIB)-- on sandostatin (follows with Dr. Olivarez). Hx: DVT/PE (multiple secondary to hypercoagulablestate related to metastatic disease) patient in on chronic AC (recently Eliquis) as he developed multiple large/painful hematomas with Lovenox and had persistent bleeding with Warfarin-- he also has a GFF in place), NABOR with CPAP compliance, HTN,DMII, KELSEY On PE, patient is sitting up in bed and denies any symptoms. There is a large left scapula/mid backhematoma remaining from admission earlier this month, patient reports is smaller in size and no longer painful. is at bedside, hemodynamically stable, without signs of distress Review of Systems: Constitutional: negative for chills, fevers, sweats Respiratory: negative for cough, dyspnea on exertion, hemoptysis, shortness of breath, wheezing Cardiovascular: negative for chest pain at present, denies chest pressure/discomfort, lower extremity edema, palpitations Gastrointestinal: negative for abdominal pain, constipation, diarrhea, nausea, vomiting Neurological: negative for dizziness, headache Medications: Allergies: Allergies Allergen Reactions Toradol [Ketorolac Tromethamine] Other (See Comments) Pt went into kidney failure Lisinopril Other (See Comments) Cough Current Meds: Scheduled Meds: sodium chloride flush 10 mL Intravenous 2 times per day LORazepam 1 mg Intravenous Once insulin lispro 6 Units Subcutaneous TID AC Vitamin D 10,000 Units Oral Daily aspirin 81 mg Oral Daily atorvastatin 80 mg Oral Daily busPIRone 15 mg Oral TID DULoxetine 60 mg Oral Daily ferrous sulfate 325 mg Oral Daily with breakfast hydrALAZINE 75 mg Oral BID [Held by provider] insulin glargine 100 Units Subcutaneous BID losartan 25 mg Oral Daily metoprolol 100 mg Oral BID pantoprazole 40 mg Oral BID AC tamsulosin 0.4 mg Oral Daily sodium chloride flush 10 mL Intravenous 2 times per day insulin lispro 0-18 Units Subcutaneous TID WC insulin lispro 0-9 Units Subcutaneous Nightly influenza virus vaccine 0.5 mL Intramuscular Once Continuous Infusions: heparin (porcine) 18.654 Units/kg/hr (10/04/19 2216) dextrose PRN Meds: sodium chloride flush, acetaminophen, glucose, dextrose, glucagon (rDNA), dextrose, sennosides-docusate sodium, heparin (porcine), heparin (porcine), hydrOXYzine, meclizine, polyethylene glycol, sodium chloride flush, potassium chloride OR potassium alternative oral replacement ORpotassium chloride, potassium chloride, magnesium sulfate, magnesium hydroxide, ondansetron, nitroGLYCERIN Data: Past Medical History: has a past medical history of Anemia, Arthritis, CAD (coronary artery disease), Chronic kidney disease, CKD (chronic kidney disease), Depression, Disease of blood and blood forming organ, DVT (deep venous thrombosis) (HCC), GERD (gastroesophageal reflux disease), GERD (gastroes ophageal reflux disease), GI bleed, [place] filter in place, History of blood transfusion, Hypercholesteremia, Hypertension, Liver metastases (HCC), CO (myocardial infarction) (HCC), MS (multiple sclerosis) (HCC), Neuroendocrine tumor, Other disorders of kidney and ureter in diseases classified elsewhere, PE (pulmonary embolism), Type II or unspecified type diabetes mellitus without mention ofcomplication, not stated as uncontrolled, Unspecified sleep apnea, and Vitamin D deficiency. Social History: reports that he has never smoked. He has quit using smokeless tobacco. His smokeless tobacco use included chew. He reports that he does not drink alcohol or use drugs. Family History: Family History Problem Relation Age of Onset Cancer Mother ovarian Heart Disease Father Vitals: BP 124/73 Pulse 62 Temp 97.9 F (36.6 C) (Axillary) Resp 18 Ht 5' 9 (1.753 m) Wt 282 lb 12.8 oz (128.3 kg) SpO2 98% BMI 41.76 kg/m Temp (24hrs), Av F (36.7 C), Min:97.9 F (36.6 C), Max:98.4 F (36.9 C) Recent Labs 10/04/19 0931 10/04/19 1147 10/04/19 16510/04/19 204 POCGLU 95 85 183* 223* I/O (24Hr): Intake/Output Summary (Last 24 hours) at 10/05/2019 0834 Last data filed at 10/05/2019 0608 Gross per 24 hour Intake 1021 ml Output 3100 ml Net -2079 ml Labs: Hematology: Recent Labs 10/04/19 0412 PLT 234 Chemistry: Recent Labs 10/03/19 0645 10/04/19 0412 10/05/19 0433 NA 139 138 137 K 4.3 4.0 4.2 CL 103 103 102 CO2 25 24 25 GLUCOSE 109* 143* 188* BUN 18 20 23* CREATININE 1.50* 1.54* 1.78* ANIONGAP 11 11 10 LABGLOM 50* 48* 41* GFRAA >60 58* 49* CALCIUM 8.6 8.7 8.6 Recent Labs 10/03/19 2112 10/04/19 0831 10/04/19 0931 10/04/19 1147 10/04/19 1651 10/04/19 2048 POCGLU 215* 64* 95 85 183* 223* ABG: Lab Results Component Value Date FIO2 TRAUMA 09/04/2019 Lab Results Component Value Date/Time SPECIAL NOT REPORTED 10/27/2018 01:44 PM Lab Results Component Value Date/Time CULTURE (A) 10/27/2018 01:44 PM STREPTOCOCCI, [facility] HEM[employer] B 10 to 50,000 CFU/ML Radiology: Xr Chest Portable Result Date: 09/28/2019 Negative portable chest. Physical Examination: General appearance: alert, cooperative and no distress, morbidly obese Mental Status: oriented to person, place and time and normal affect Lungs: clear to auscultation bilaterally, normal effort Heart: regular rate and rhythm, no murmur Abdomen: soft, nontender, nondistended, normal bowel sounds, no masses, hepatomegaly, splenomegaly Extremities: no edema, redness, tenderness in the calves Skin: no gross lesions, rashes, induration Assessment: Hospital Problems Last Modified POA * (Principal) Coronary artery disease, occlusive-MV CAD 09/30/2019 Yes Multiple sclerosis (HCC) 09/30/2019 Yes CAD (coronary artery disease) 09/30/2019 Yes Iron deficiency anemia 09/30/2019 Yes NABOR (obstructive sleep apnea) 09/30/2019 Yes Overview Signed 01/10/2013 1:38 PM by Yessenia Kim CPAP 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) 09/30/2019 Yes Benign essential HTN 09/30/2019 Yes GERD (gastroesophageal reflux disease) 09/30/2019 Yes Pulmonary embolism (HCC) 09/30/2019 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 09/30/2019 Yes Liver metastases (HCC) 09/30/2019 Yes DVT of lower extremity, bilateral (HCC) 09/30/2019 Yes Gastric carcinoma (HCC) (Chronic) 09/30/2019 Yes CKD (chronic kidney disease) stage 3, GFR 30-59 ml/min (HCC) 09/30/2019 Yes History of pulmonary embolus (PE) 09/30/2019 Yes Subcutaneous hematoma 09/30/2019 Yes Chest pain 10/02/2019 Yes Plan: Lantus insulin has been put on hold by cardiology with plan to do cardiac cath, continue insulin sliding scale and pre-meal insulin since patient had his breakfast today Possible cardiac cath today Discussed with patient and family at bedside Tunde Pino MD 10/05/2019 8:34 AM * Rene Monroy MD - 10/04/2019 2:44 PM EST SUBJECTIVE Pt is stable and feels OK. He was alert and oriented x3. Patient denies any chest pain No increase in leg swelling. Cardiac catheterization done 2 days ago, multivessel disease found, plan for open heart at some stage. Creatinine stable at 1.5. Urine output good. No complaints. His labs are stable, including his creatinine. Long discussion with family and pt at bedside. OBJECTIVE CURRENT TEMPERATURE: Temp: 98.4 F (36.9 C) MAXIMUM TEMPERATURE OVER 24HRS: Temp (24hrs), Av.4 F (36.3 C), Min:96 F (35.6 C), Max:98.4 F (36.9 C) CURRENT RESPIRATORY RATE: Resp: 18 CURRENT PULSE: Pulse: 72 CURRENT BLOOD PRESSURE: BP: 134/71 24HR BLOOD PRESSURE RANGE: Systolic (24hrs), Av , Min:114 , Max:146 ; Diastolic (24hrs), Av, Min:66, Max:81 24HR INTAKE/OUTPUT: Intake/Output Summary (Last 24 hours) at 10/04/2019 1444 Last data filed at 10/04/2019 0806 Gross per 24 hour Intake 1732.1 ml Output 2350 ml Net -617.9 ml WEIGHT : Patient Vitals for the past 96 hrs (Last 3 readings): Weight 10/04/19 0547 284 lb 11.2 oz (129.1 kg) 10/03/19 0600 285 lb 1.6 oz (129.3 kg) 10/02/19 1321 284 lb 8 oz (129 kg) PHYSICAL EXAM GENERAL APPEARANCE: Awake and alert x3, BiPAP in place NECK: No JVD, midline trachea PULMONARY: Bilateral air entry and clear to auscultation bialterally CADRDIOVASCULAR: regular rate and rhythm with positive S1 and S2 and no rubs ABDOMEN: soft nontender, bowel sounds present, no ascites EXTREMITIES: `Minimal lower extremity edema noted CURRENT MEDICATIONS heparin 25,000 units in dextrose 5% 250 mL infusion, Continuous sodium chloride flush 0.9 % injection 10 mL, 2 times per day sodium chloride flush 0.9 % injection 10 mL, PRN acetaminophen (TYLENOL) tablet 650 mg, Q4H PRN LORazepam (ATIVAN) injection 1 mg, Once insulin lispro (HUMALOG) injection vial 6 Units, TID AC glucose (GLUTOSE) 40 % oral gel 15 g, PRN dextrose 50 % IV solution, PRN glucagon (rDNA) injection 1 mg, PRN dextrose 5 % solution, PRN sennosides-docusate sodium (SENOKOT-S) 8.6-50 MG tablet 2 tablet, BID PRN Vitamin D (CHOLECALCIFEROL) tablet 10,000 Units, Daily aspirin chewable tablet 81 mg, Daily heparin (porcine) injection 4,000 Units, PRN heparin (porcine) injection 2,000 Units, PRN atorvastatin (LIPITOR) tablet 80 mg, Daily busPIRone (BUSPAR) tablet 15 mg, TID DULoxetine (CYMBALTA) extended release capsule 60 mg, Daily ferrous sulfate EC tablet 325 mg, Daily with breakfast hydrALAZINE (APRESOLINE) tablet 75 mg, BID hydrOXYzine (ATARAX) tablet 25 mg, TID PRN [Held by provider] insulin glargine (LANTUS) injection vial 100 Units, BID losartan (COZAAR) tablet 25 mg, Daily meclizine (ANTIVERT) tablet 25 mg, TID PRN metoprolol tartrate (LOPRESSOR) tablet 100 mg, BID pantoprazole (PROTONIX) tablet 40 mg, BID AC polyethylene glycol (GLYCOLAX) packet 17 g, Daily PRN tamsulosin (FLOMAX) capsule 0.4 mg, Daily sodium chloride flush 0.9 % injection 10 mL, 2 times per day sodium chloride flush 0.9 % injection 10 mL, PRN potassium chloride (KLOR-CON M) extended release tablet 40 mEq, PRN Or potassium bicarb-citric acid (EFFER-K) effervescent tablet 40 mEq, PRN Or potassium chloride 10 mEq/100 mL IVPB (Peripheral Line), PRN potassium chloride 10 mEq/100 mL IVPB (Peripheral Line), PRN magnesium sulfate 1 g in dextrose 5% 100 mL IVPB, PRN magnesium hydroxide (MILK OF MAGNESIA) 400 MG/5ML suspension 30 mL, Daily PRN ondansetron (ZOFRAN) injection 4 mg, Q6H PRN nitroGLYCERIN (NITROSTAT) SL tablet 0.4 mg, Q5 Min PRN insulin lispro (HUMALOG) injection vial 0-18 Units, TID WC insulin lispro (HUMALOG) injection vial 0-9 Units, Nightly influenza quadrivalent split vaccine (FLUZONE;FLUARIX;FLULAVAL;AFLURIA) injection 0.5 mL, Once LABS CBC: Recent Labs 10/02/1941710/04/19411 WBC 8.2 -- RBC 4.14* -- HGB 11.6* -- HCT 38.5* -- MCV 93.0 -- MCH 28.0 -- MCHC 30.1 -- RDW 16.5* -- PLT 246 234 MPV 9.7 -- BMP: Recent Labs 10/02/19 0418 10/03/19 0645 10/04/192 NA 140 139 138 K 4.5 4.3 4.0 CL 103 103 103 CO2 26 25 24 BUN 21* 18 20 CREATININE 1.71* 1.50* 1.54* GLUCOSE 71 109* 143* CALCIUM 8.9 8.6 8.7 IRON: Lab Results Component Value Date IRON 36 09/05/2019 IRON SATURATION: Lab Results Component Value Date LABIRON 17 09/05/2019 TIBC: Lab Results Component Value Date TIBC 215 09/05/2019 ASSESSMENT 1. Stage III chronic kidney disease with heavy proteinuria. His baseline creatinine is 1.8 mg/dL. Today's creatinine is slightly better than baseline at 1.5 . 2. S/p cardiac catheterization 10/02/19. Results reviewed . 3. Hypertension with the patient's blood pressure under good control 4. Nephrotic range proteinuria 5. Obstructive sleep apnea 6. Type 2 diabetes PLAN 1. Encourage oral fluids. 2. Risk of acute kidney injury post open heart explained 3. Patient is acceptable but higher than average risk for open heart surgery, no objection to proceed from nephrology standpoint. 4. Follow renal function. Please do not hesitate to call with questions. * Augusta Aly APRN - CLAIMS ADJUSTOR - 10/04/2019 1:13 PM EST Ladonna Loom [facility] Progress Note Date: 10/04/2019 Patient name: Lorenzo Amato Date of admission: 09/29/2019 6:36 PM Date of : 1970 PCP: Lion Carlson MD Reason for Admission: Coronary artery disease, occlusive [I25.10] Chest pain [R07.9] Subjective: Clinical Changes / Abnormalities: Pt seen and examined in the room. Pt denies any CP or SOB. Familyat bedside. Pt tearful today and states that nothing is happening and he just wants to go home. Medications: Scheduled Meds: sodium chloride flush 10 mL Intravenous 2 times per day LORazepam 1 mg Intravenous Once insulin lispro 6 Units Subcutaneous TID AC Vitamin D 10,000 Units Oral Daily aspirin 81 mg Oral Daily atorvastatin 80 mg Oral Daily busPIRone 15 mg Oral TID DULoxetine 60 mg Oral Daily ferrous sulfate 325 mg Oral Daily with breakfast hydrALAZINE 75 mg Oral BID [Held by provider] insulin glargine 100 Units Subcutaneous BID losartan 25 mg Oral Daily metoprolol 100 mg Oral BID pantoprazole 40 mg Oral BID AC tamsulosin 0.4 mg Oral Daily sodium chloride flush 10 mL Intravenous 2 times per day insulin lispro 0-18 Units Subcutaneous TID WC insulin lispro 0-9 Units Subcutaneous Nightly influenza virus vaccine 0.5 mL Intramuscular Once Continuous Infusions: heparin (porcine) 18.502 Units/kg/hr (10/04/19 1234) dextrose CBC: Recent Labs 10/02/19 0418 10/04/19 0412 WBC 8.2 -- HGB 11.6* -- PLT 246 234 BMP: Recent Labs 10/02/19 0418 10/03/19 0645 10/04/19 0412 NA 140 139 138 K 4.5 4.3 4.0 CL 103 103 103 CO2 26 25 24 BUN 21* 18 20 CREATININE 1.71* 1.50* 1.54* GLUCOSE 71 109* 143* Hepatic: No results for input(s): AST, ALT, ALB, BILITOT, ALKPHOS in the last 72 hours. Troponin: No results for input(s): TROPHS in the last 72 hours. BNP: No results for input(s): BNP in the last 72 hours. Lipids: No results for input(s): CHOL, HDL in the last 72 hours. Invalid input(s): LDLCALCU INR: No results for input(s): INR in the last 72 hours. EK09/28/19 Normal sinus rhythm, inferior infarct ECHO: 09/28/19 Left ventricle is normal in size. Severe concentric left ventricular hypertrophy. Global left ventricular systolic function is normal with an estimated ejection fraction of 60 % . Evidence of diastolic dysfunction. Left atrium is at upper limits of normal. Right atrium is mildly dilated . Normal right ventricular size and function. Aortic valve leaflets are mildly thickened. No aortic stenosis. Thickened mitral valve leaflets. Mild mitral regurgitation. Stress test: 09/29/19 1. Abnormal myocardial perfusion study. There is a moderate/large perfusion defect of moderate/severe intensity in the anterolateral, lateral, inferolateral, inferior region(s) during stress and restimaging, which is most consistent with an old myocardial infarction with judy-infarct ischemia. 2. Global left ventricular systolic function was abnormal with an EF of 36% with regional wall motion abnormalities. Overall these results are most consistent with 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/high risk for significant coronary artery disease. CARDIAC CATH 10/02/19 Findings: LMCA: No significant disease and mild irregularities. LAD: Mid 90% stenosis LCx: Patent proximal stent Distal 80% stenosis RCA: 100% proximal stenosis with collateral from the left system Coronary Tree Dominance: Right The LV gram was not performed Estimated blood loss: 5 ml Conclusions: Multivessel significant CAD Recommendations: 1. CT surgery consult for Urgent CABG 2. Medical Therapy. 3. Risk Factors Modification. 4. Post Cath Protocol Objective: Vitals: BP 134/71 Pulse 72 Temp 98.4 F (36.9 C) (Axillary) Resp 18 Ht 5' 9 (1.753 m) Wt 284 lb 11.2 oz (129.1 kg) SpO2 99% BMI 42.04 kg/m General appearance: alert and cooperative with exam HEENT: Head: Normocephalic, no lesions, without obvious abnormality. Neck: no JVD, trachea midline, no adenopathy Lungs: Clear to auscultation Heart: Regular rate and rhythm, s1/s2 auscultated, no murmurs Abdomen: soft, non-tender, bowel sounds active Extremities: no edema Neurologic: not done Assessment / Acute Cardiac Problems: 5. Abnormal stress test with judy-infarct ischemia and EF 36% 6. Preserved LVEF on echo 7. CAD s/p LCX stent (3.5 x 20 mm) 8. CKD-3 9. H/O STEMI in 2006 as noted above 10. HTN 11. Hyperlipidemia 12. Insulin-dependent DM-2 13. 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 MVD per cardiac cath. On ASA 81, Lipitor 80, Hydralazine 75 bid, Losartan 25, Lopressor 100 bid 2. Eliquis discontinued for cardiac cath and on heparin bridging. 3. Bilateral Acute DVTs. Will discuss with hematology 3. Will await CTS recommendations for CABG. Will be up today between 1-2 to discuss with pt and family. Quincy Loom [facility]. [phone] * Trevro Serna MD - 10/04/2019 12:56 PM EST _ Today's Date: 10/04/2019 Patient Name: Lorenzo Amato Date of admission: 09/29/2019 6:36 PM Patient's age: 49 y.o., 1970 Admission Dx: Coronary artery disease, occlusive [I25.10] Chest pain [R07.9] Requesting Physician: Tunde Pino MD CHIEF COMPLAINT: Chest pain. Coronary artery disease. Metastatic carcinoid tumor. Consult for anticoagulation. SUBJECTIVE: . The patient was seen and examined. Patient is clinically stable. No chest pain. No shortness of breath. No active bleeding. Patient had cardiac cath Wednesday he had high-grade obstructions of multiple coronaries so no stents were applied but patient will need open heart surgery. BRIEF CASE HISTORY: The patient is a 49 y.o. male who is admitted to the hospital for further management of acute coronary ischemia. The patient is known to our practice. 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 He is maintained on Sandostatin. His disease is well controlled. Vinnie elliott had previous history of DVT and pulmonary embolism. He had inferior vena cava filter placement. He has been on different anticoagulation drugs. Previously was on Coumadin and Lovenox. He developed multiple complications. The patient was recently hospitalized because of huge hematoma in the left upper chest wall posteriorly with major drop of the hemoglobin level. He was hospitalized and received blood transfusions. Anticoagulation with Eliquis was resumed after stabilization. Patient was hospitalized because of chest pain with positive stress test. He was evaluated by cardiology. Plan to have cardiac cath and possible stents on Wednesday. Patient is feeling better now in the hospital. No fever or infections. No other complaints. Past Medical History: has a past medical history of Anemia, Arthritis, CAD (coronary artery disease), Chronic kidney disease, CKD (chronic kidney disease), Depression, Disease of blood and blood forming organ, DVT (deep venous thrombosis) (HCC), GERD (gastroesophageal reflux disease), GERD (gastroes ophageal reflux disease), GI bleed, [place] filter in place, History of blood transfusion, Hypercholesteremia, Hypertension, Liver metastases (HCC), CO (myocardial infarction) (HCC), MS (multiple sclerosis) (HCC), Neuroendocrine tumor, Other disorders of kidney and ureter in diseases classified elsewhere, PE (pulmonary embolism), Type II or unspecified type diabetes mellitus without mention ofcomplication, not stated as uncontrolled, Unspecified sleep apnea, and Vitamin D deficiency. Past Surgical History: has a past surgical history that includes Tonsillectomy; Appendectomy; Percutaneous Transluminal Coronary Angio; Colonoscopy; Vasectomy (18 years ago); Thyroid surgery (05/11/13); Coronary angioplasty with stent (2004); and Upper gastrointestinal endoscopy (10/14/2016). Family History: family history includes Cancer in his mother; Heart Disease in his father. Social History: reports that he has never smoked. He has quit using smokeless tobacco. His smokeless tobacco use included chew. He reports that he does not drink alcohol or use drugs. Medications: Prior to Admission medications Medication Sig Start Date End Date Taking? Authorizing Provider Cholecalciferol (VITAMIN D3 PO) Take 10,000 Units by mouth daily Historical Provider, hydrOXYzine (ATARAX) 25 MG tablet Take 1 tablet by mouth 3 times daily as needed for Anxiety 09/29/19 10/09/19 Lion Carlson MD losartan (COZAAR) 25 MG tablet Take 25 mg by mouth daily To be starting this medication every otherday, has not started yet. Historical Provider, ferrous sulfate 325 (65 Fe) MG EC tablet Take 1 tablet by mouth daily (with breakfast) 09/09/19 Stacy Vitale MD polyethylene glycol (GLYCOLAX) packet Take 17 g by mouth daily as needed for Constipation 09/08/19 10/08/19 Stacy Vitale MD senna (SENOKOT) 8.6 MG tablet Take 1 tablet by mouth nightly as needed (constipation) 09/08/19 10/08/19 Stacy Vitale MD tamsulosin (FLOMAX) 0.4 MG capsule Take 1 capsule by mouth daily 09/09/19 Stacy Vitale MD apixaban (ELIQUIS) 5 MG TABS tablet Take 1 tablet by mouth 2 times daily 09/08/19 Stacy Vitale MD busPIRone (BUSPAR) 15 MG tablet TAKE ONE TABLET BY MOUTH THREE TIMES A DAY 08/17/19 Lion Carlson MD hydrALAZINE (APRESOLINE) 50 MG tablet TAKE 1 1/2 TABLETS BY MOUTH TWICE DAILY 06/16/19 Lion Carlson MD metoprolol (LOPRESSOR) 100 MG tablet TAKE 1 TABLET BY MOUTH 2 TIMES A DAY 06/09/19 Lion Carlson MD atorvastatin (LIPITOR) 80 MG tablet TAKE 1 TABLET BY MOUTH ONE TIME DAILY 05/11/19 Lion Carlson MD omeprazole (PRILOSEC) 40 MG delayed release capsule TAKE 1 CAPSULE BY MOUTH 2 TIMES A DAY 04/14/19 Lion Carlson MD SANDOSTATIN LAR DEPOT 30 MG injection INJECT 30 MG INTO THE MUSCLE EVERY 28 DAYS 04/11/19 Trevor Serna MD DULoxetine (CYMBALTA) 60 MG extended release capsule TAKE 1 CAPSULE BY MOUTH ONE TIME A DAY 04/11/19Lion Carlson MD furosemide (LASIX) 20 MG tablet Take 1 tablet by mouth (20 mg) every other day Patient taking differently: See Admin Instructions As needed wt gain swelling 03/06/19 Lion Carlson MD insulin lispro (HUMALOG KWIKPEN) 100 UNIT/ML pen Inject 5 Units into the skin 3 times daily (beforemeals) 03/06/19 Lion Carlson MD Insulin Pen Needle (B-D ULTRAFINE III SHORT PEN) 31G X 8 MM MISC Use as directed with insulin pen needles, up to 5x/day 03/06/19 Lion Carlson MD Blood Glucose Monitoring Suppl ([employer] AUTOCODE BLOOD GLUCOSE) w/Device KIT Use as directed to test up to 4 times daily 03/06/19 MD JUDITH Patel LANCETS 28G MISC Use as directed to test up to 4 times daily 03/06/19 Lion Carlson MD blood glucose test strips ([employer] NO CODING BLOOD GLUC) strip 1 each by In Vitro route 4 times daily As needed. 03/06/19 Lion Carlson MD insulin glargine (TOUJEO MAX SOLOSTAR) 300 UNIT/ML injection pen Inject 130 Units into the skin 2 times daily 08/02/18 Lion Carlson MD meclizine (ANTIVERT) 25 MG tablet Take 1 tablet by mouth 3 times daily as needed for Dizziness 02/25/18 Lion Carlson MD Current Facility-Administered Medications Medication Dose Route Frequency Provider Last Rate Last Dose heparin 25,000 units in dextrose 5% 250 mL infusion 12 Units/kg/hr Intravenous Continuous Jim Mendoza MD 24.2 mL/hr at 10/04/19 1234 18.502 Units/kg/hr at 10/04/19 1234 sodium chloride flush 0.9 % injection 10 mL 10 mL Intravenous 2 times per day Jim Mendoza MD sodium chloride flush 0.9 % injection 10 mL 10 mL Intravenous PRN Jim Mendoza MD acetaminophen (TYLENOL) tablet 650 mg 650 mg Oral Q4H PRN Jim Mendoza MD LORazepam (ATIVAN) injection 1 mg 1 mg Intravenous Once Nuria Hassan, [employer] - [employer]GEN[employer] insulin lispro (HUMALOG) injection vial 6 Units 6 Units Subcutaneous TID AC Jim Mendoza MD 6 Units at 10/04/19 1657 glucose (GLUTOSE) 40 % oral gel 15 g 15 g Oral PRN Jim Mendoza MD dextrose 50 % IV solution 12.5 g Intravenous PRN Jim Mendoza MD glucagon (rDNA) injection 1 mg 1 mg Intramuscular PRN Jim Mendoza MD dextrose 5 % solution 100 mL/hr Intravenous PRN Jim Mendoza MD sennosides-docusate sodium (SENOKOT-S) 8.6-50 MG tablet 2 tablet 2 tablet Oral BID PRN Jim Mendoza MD 2 tablet at 10/01/19 1046 Vitamin D (CHOLECALCIFEROL) tablet 10,000 Units 10,000 Units Oral Daily Jim Mendoza MD 10,000Units at 10/04/19 0848 aspirin chewable tablet 81 mg 81 mg Oral Daily Jim Mendoza MD 81 mg at 10/04/19 0849 heparin (porcine) injection 4,000 Units 4,000 Units Intravenous PRN Jim Mendoza MD 4,000 Units at 10/03/19 0107 heparin (porcine) injection 2,000 Units 2,000 Units Intravenous PRN Jim Mendoza MD 2,000 Units at 10/03/19 1602 atorvastatin (LIPITOR) tablet 80 mg 80 mg Oral Daily Jim Mendoza MD 80 mg at 10/04/19 0850 busPIRone (BUSPAR) tablet 15 mg 15 mg Oral TID Jim Mendoza MD 15 mg at 10/04/19 1456 DULoxetine (CYMBALTA) extended release capsule 60 mg 60 mg Oral Daily Jim Mendoza MD 60 mg at112/04/18 0849 ferrous sulfate EC tablet 325 mg 325 mg Oral Daily with breakfast Jim Mendoza MD 325 mg at 10/04/19 0850 hydrALAZINE (APRESOLINE) tablet 75 mg 75 mg Oral BID Jim Mendoza MD 75 mg at 10/04/19 0851 hydrOXYzine (ATARAX) tablet 25 mg 25 mg Oral TID PRN Jim Mendoza MD 25 mg at 10/02/192023 [Held by provider] insulin glargine (LANTUS) injection vial 100 Units 100 Units Subcutaneous BID Jim Mendoza MD 50 Units at 10/03/19 2137 losartan (COZAAR) tablet 25 mg 25 mg Oral Daily Jim Mendoza MD 25 mg at 10/04/19 0850 meclizine (ANTIVERT) tablet 25 mg 25 mg Oral TID PRN Jim Mendoza MD metoprolol tartrate (LOPRESSOR) tablet 100 mg 100 mg Oral BID Jim Mendoza MD 100 mg at 10/04/19 0850 pantoprazole (PROTONIX) tablet 40 mg 40 mg Oral BID AC Jim Mendoza MD 40 mg at 10/04/19 1657 polyethylene glycol (GLYCOLAX) packet 17 g 17 g Oral Daily PRN Jim Mendoza MD tamsulosin (FLOMAX) capsule 0.4 mg 0.4 mg Oral Daily Jim Mendoza MD 0.4 mg at 10/04/19 0849 sodium chloride flush 0.9 % injection 10 mL 10 mL Intravenous 2 times per day Jim Mendoza MD 10 mL at 10/01/192105 sodium chloride flush 0.9 % injection 10 mL 10 mL Intravenous PRN Jim Mendoza MD potassium chloride (KLOR-CON M) extended release tablet 40 mEq 40 mEq Oral PRN Jim Mendoza MD Or potassium bicarb-citric acid (EFFER-K) effervescent tablet 40 mEq 40 mEq Oral PRN Jim Mendoza MD Or potassium chloride 10 mEq/100 mL IVPB (Peripheral Line) 10 mEq Intravenous PRN Jim Mendoza MD potassium chloride 10 mEq/100 mL IVPB (Peripheral Line) 10 mEq Intravenous PRN Jim Mendoza MD magnesium sulfate 1 g in dextrose 5% 100 mL IVPB 1 g Intravenous PRN Jim Mendoza MD magnesium hydroxide (MILK OF MAGNESIA) 400 MG/5ML suspension 30 mL 30 mL Oral Daily PRN Jim Mendoza MD ondansetron (ZOFRAN) injection 4 mg 4 mg Intravenous Q6H PRN Jim Mendoza MD nitroGLYCERIN (NITROSTAT) SL tablet 0.4 mg 0.4 mg Sublingual Q5 Min PRN Jim Mendoza MD insulin lispro (HUMALOG) injection vial 0-18 Units 0-18 Units Subcutaneous TID WC Jim Mendoza MD 3 Units at 09/30/19 0929 insulin lispro (HUMALOG) injection vial 0-9 Units 0-9 Units Subcutaneous Nightly Jim Mendoza MD 3 Units at 10/03/19 2137 influenza quadrivalent split vaccine (FLUZONE;FLUARIX;FLULAVAL;AFLURIA) injection 0.5 mL 0.5 mL Intramuscular Once Jim Mendoza MD Allergies: Toradol [ketorolac tromethamine] and Lisinopril REVIEW OF SYSTEMS: General: Positive for weakness and fatigue.. No unanticipated weight loss or decreased appetite. Nofever or chills. Eyes: No blurred vision, eye pain or double vision. Ears: No hearing problems or drainage. No tinnitus. Throat: No sore throat, problems with swallowing or dysphagia. Respiratory: No cough, sputum or hemoptysis. No shortness of breath. No pleuritic chest pain. Cardiovascular: As above. Gastrointestinal: No problems with swallowing. No abdominal pain or bloating. No nausea or vomiting. No diarrhea or constipation. No GI bleeding. Genitourinary: No dysuria, hematuria, frequency or urgency. Musculoskeletal: No muscle aches or pains. No limitation of movement. No back pain. No gait disturbance, No joint complaints. Dermatologic: No skin rashes or pruritus. No skin lesions or discolorations. Psychiatric: No depression, anxiety, or stress or signs of schizophrenia. No change in mood or affect. Hematologic: Hematomas as above. Infectious disease: No fever, chills or frequent infections. Endocrine: No polydipsia or polyuria. No temperature intolerance. Neurologic: No headaches or dizziness. No weakness or numbness of the extremities. No changes in balance, coordination, memory, mentation, behavior. Allergic/Immunologic: No nasal congestion or hives. No repeated infections. PHYSICAL EXAM: BP 131/64 Pulse 67 Temp 97.9 F (36.6 C) (Oral) Resp 18 Ht 5' 9 (1.753 m) Wt 284 lb 11.2 oz (129.1 kg) SpO2 99% BMI 42.04 kg/m Temp (24hrs), Av.6 F (36.4 C), Min:96 F (35.6 C), Max:98.4 F (36.9 C) General appearance -patient is overweight. Well appearing, not in pain or distress Mental status - good mood, alert and oriented Eyes - pupils equal and reactive, extraocular eye movements intact Ears - bilateral TM's and external ear canals normal Nose - normal and patent, no erythema, discharge or polyps Mouth - mucous membranes moist, pharynx normal without lesions Neck - supple, no significant adenopathy Lymphatics - no palpable lymphadenopathy, no hepatosplenomegaly Chest - clear to auscultation, no wheezes, rales or rhonchi, symmetric air entry. Very large hematoma in the posterior chest wall in the left upper back. Heart - normal rate, regular rhythm, normal S1, S2, no murmurs, rubs, clicks or gallops Abdomen - soft, nontender, nondistended, no masses or organomegaly Neurological - alert, oriented, normal speech, no focal findings or movement disorder noted Musculoskeletal - no joint tenderness, deformity or swelling Extremities - peripheral pulses normal, no pedal edema, no clubbing or cyanosis Skin - normal coloration and turgor, no rashes, no suspicious skin lesions noted DATA: Labs: CBC: Recent Labs 10/02/19 0418 10/04/19 041 WBC 8.2 -- HGB 11.6* -- HCT 38.5* -- PLT 246 234 BMP: Recent Labs 10/03/19 0645 10/04/19 041 NA 139 138 K 4.3 4.0 CO2 25 24 BUN 18 20 CREATININE 1.50* 1.54* LABGLOM 50* 48* GLUCOSE 109* 143* PT/INR: No results for input(s): PROTIME, INR in the last 72 hours. APTT: Recent Labs 10/04/19 0412 10/04/19 1505 APTT 73.3* 66.0* LIVER PROFILE: No results for input(s): AST, ALT, LABALBU in the last 72 hours. 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] 10/11/2016 DVT of lower extremity, bilateral (HCC) [I82.403] 06/14/2013 Liver metastases (HCC) [C78.7] 05/25/2013 Pulmonary embolism (HCC) [I26.99] 09/07/2012 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 [Z79.01] GERD (gastroesophageal reflux disease) [K21.9] 02/04/2012 Multiple sclerosis (HCC) [G35] 10/01/2011 Iron deficiency anemia [D50.9] 10/01/2011 CAD (coronary artery disease) [I25.10] 10/01/2011 NABOR (obstructive sleep apnea) [G47.33] 10/01/2011 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) [E11.22, E11.65] Benign essential HTN [I10] RECOMMENDATIONS: 1. Records and labs and images were reviewed and discussed with the patient. 2. Patient has metastatic gastric carcinoid with liver metastases maintained on Sandostatin LAR every 4 weeks. Disease is controlled. 3. Patient had previous DVT and pulmonary embolism and maintained on anticoagulation with Eliquis. 4. Patient developed recent large subcutaneous hematoma and anticoagulation was resumed after stabilization. 5. Currently with acute coronary syndrome. Cardiac cath Wednesday showed multiple blood vessels with very high-grade obstruction. Patient will need open heart surgery for CABG. he is waiting for final cardiovascular evaluation and decision for surgery. 6. Anticoagulation will be resumed after the surgery. 7. We will continue to follow. Discussed with patient and his and Nurse. MD Trevor Moreira MD This note is created with the assistance of a speech recognition program. While intending to generate a document that actually reflects the content of the visit, the document can still have some errors including those of syntax and sound a like substitutions which may escape proof reading. It such instances, actual meaning can be extrapolated by contextual diversion. Yarely Lepe - 10/04/2019 11:14 AM EST Occupational Therapy Occupational Therapy Not Seen Note DATE: 10/04/2019 Name: Lorenzo Amato : 1970 Patient not available for Occupational Therapy due to: Pt independent with functional mobility and functional tasks. Pt with no OT acute care needs at this time, will defer OT eval. Pt reports independence with ADLs, IADLs, and functional mobility. Pt educated to notify nursing staff if functional status changes for OT evaluation. Next Scheduled Treatment: Defer OT evaluation * Tunde Pino MD - 10/04/2019 8:36 AM EST [facility] IN-PATIENT SERVICE [facility] Progress Note 10/04/2019 8:36 AM Name: Lorenzo Amato Acct: [id number] Room: IP Day: 5 Admit Date: 09/29/2019 6:36 PM PCP: Lion Carlson MD Code Status: Full Code Subjective: C/C: Transfer from OSH: Left side chest pressure Interval History Status: Patient denies chest pain Using his CPAP Was on Eliquis at home which is on hold Nephrology has cleared him for cardiac cath and started Mucomyst Hematology/oncology also have cleared him for cath cardiology had done cath yesterday which shows MV CAD and recommended urgent CABG CT surgery plans to do tomorrow Creatinine 1.54 today which is better than before, nephrology okay with CABG A1c 8.1, last blood sugars 109 95 Brief History: Lorenzo Amato is a 49 y.o. Non-/non male who presents with No chief complaint on file. and is admitted to the hospital for the management of Coronary artery disease, occlusive. Mr. Amato is a transfer from OSH for acute onset of left side chest pressure that began at rest. Patient reports it began approx. 1 day ago and he denies any further associated symptoms. Of note-- patient had history of CO in 2005 with stent placement to LAD which presented with only symptom of left arm pain. He had stress test completed at [facility] which revealed multiple abnormalities consistent with high risk CAD. Patient subsequently had ECHO: and found to have reduced EF: 36% and left ventricular hypertrophy along with Diastolic Dysfunction. [facility] these [facility]. PMH includes: MS (patient has not had any neurological follow up in several years, MS has been stable), Neuroendocrine gastric tumor with liver mets (diagnosed 2013 after presenting to hospital with GIB)-- on sandostatin (follows with Dr. Olivarez). Hx: DVT/PE (multiple secondary to hypercoagulablestate related to metastatic disease) patient in on chronic AC (recently Eliquis) as he developed multiple large/painful hematomas with Lovenox and had persistent bleeding with Warfarin-- he also has a GFF in place), NABOR with CPAP compliance, HTN,DMII, KELSEY On PE, patient is sitting up in bed and denies any symptoms. There is a large left scapula/mid backhematoma remaining from admission earlier this month, patient reports is smaller in size and no longer painful. is at bedside, hemodynamically stable, without signs of distress Review of Systems: Constitutional: negative for chills, fevers, sweats Respiratory: negative for cough, dyspnea on exertion, hemoptysis, shortness of breath, wheezing Cardiovascular: negative for chest pain at present, denies chest pressure/discomfort, lower extremity edema, palpitations Gastrointestinal: negative for abdominal pain, constipation, diarrhea, nausea, vomiting Neurological: negative for dizziness, headache Medications: Allergies: Allergies Allergen Reactions Toradol [Ketorolac Tromethamine] Other (See Comments) Pt went into kidney failure Lisinopril Other (See Comments) Cough Current Meds: Scheduled Meds: sodium chloride flush 10 mL Intravenous 2 times per day LORazepam 1 mg Intravenous Once insulin lispro 6 Units Subcutaneous TID AC Vitamin D 10,000 Units Oral Daily aspirin 81 mg Oral Daily atorvastatin 80 mg Oral Daily busPIRone 15 mg Oral TID DULoxetine 60 mg Oral Daily ferrous sulfate 325 mg Oral Daily with breakfast hydrALAZINE 75 mg Oral BID insulin glargine 100 Units Subcutaneous BID losartan 25 mg Oral Daily metoprolol 100 mg Oral BID pantoprazole 40 mg Oral BID AC tamsulosin 0.4 mg Oral Daily sodium chloride flush 10 mL Intravenous 2 times per day insulin lispro 0-18 Units Subcutaneous TID WC insulin lispro 0-9 Units Subcutaneous Nightly influenza virus vaccine 0.5 mL Intramuscular Once Continuous Infusions: heparin (porcine) 20.031 Units/kg/hr (10/04/19 0301) dextrose PRN Meds: sodium chloride flush, acetaminophen, glucose, dextrose, glucagon (rDNA), dextrose, sennosides-docusate sodium, heparin (porcine), heparin (porcine), hydrOXYzine, meclizine, polyethylene glycol, sodium chloride flush, potassium chloride OR potassium alternative oral replacement ORpotassium chloride, potassium chloride, magnesium sulfate, magnesium hydroxide, ondansetron, nitroGLYCERIN Data: Past Medical History: has a past medical history of Anemia, Arthritis, CAD (coronary artery disease), Chronic kidney disease, CKD (chronic kidney disease), Depression, Disease of blood and blood forming organ, DVT (deep venous thrombosis) (HCC), GERD (gastroesophageal reflux disease), GERD (gastroes ophageal reflux disease), GI bleed, Lori filter in place, History of blood transfusion, Hypercholesteremia, Hypertension, Liver metastases (HCC), CO (myocardial infarction) (HCC), MS (multiple sclerosis) (HCC), Neuroendocrine tumor, Other disorders of kidney and ureter in diseases classified elsewhere, PE (pulmonary embolism), Type II or unspecified type diabetes mellitus without mention ofcomplication, not stated as uncontrolled, Unspecified sleep apnea, and Vitamin D deficiency. Social History: reports that he has never smoked. He has quit using smokeless tobacco. His smokeless tobacco use included chew. He reports that he does not drink alcohol or use drugs. Family History: Family History Problem Relation Age of Onset Cancer Mother ovarian Heart Disease Father Vitals: BP 114/71 Pulse 56 Temp 97.2 F (36.2 C) (Axillary) Resp 18 Ht 5' 9 (1.753 m) Wt 284 lb 11.2 oz (129.1 kg) SpO2 98% BMI 42.04 kg/m Temp (24hrs), Av.1 F (36.2 C), Min:96 F (35.6 C), Max:98.4 F (36.9 C) Recent Labs 10/03/19 0547 10/03/19 1204 10/03/19 1641 10/03/19 2112 POCGLU 101 95 194* 215* I/O (24Hr): Intake/Output Summary (Last 24 hours) at 10/04/2019 0836 Last data filed at 10/04/2019 0806 Gross per 24 hour Intake 2092.1 ml Output 3350 ml Net -1257.9 ml Labs: Hematology: Recent Labs 10/02/1941710/04/19411 WBC 8.2 -- RBC 4.14* -- HGB 11.6* -- HCT 38.5* -- MCV 93.0 -- MCH 28.0 -- MCHC 30.1 -- RDW 16.5* -- PLT 246 234 MPV 9.7 -- Chemistry: Recent Labs 10/02/1941710/03/19 0645 10/04/19411 NA 140 139 138 K 4.5 4.3 4.0 CL 103 103 103 CO2 26 25 24 GLUCOSE 71 109* 143* BUN 21* 18 20 CREATININE 1.71* 1.50* 1.54* ANIONGAP 11 11 11 LABGLOM 43* 50* 48* GFRAA 52* >60 58* CALCIUM 8.9 8.6 8.7 Recent Labs 10/02/19 1636 10/02/19 2027 10/03/19 0547 10/03/19 1204 10/03/19 1641 10/03/192111 POCGLU 60* 142* 101 95 194* 215* ABG: Lab Results Component Value Date FIO2 TRAUMA 09/04/2019 Lab Results Component Value Date/Time SPECIAL NOT REPORTED 10/27/2018 01:44 PM Lab Results Component Value Date/Time CULTURE (A) 10/27/2018 01:44 PM STREPTOCOCCI, BETA HEMOLYTIC GROUP B 10 to 50,000 CFU/ML Radiology: Xr Chest Portable Result Date: 09/28/2019 Negative portable chest. Physical Examination: General appearance: alert, cooperative and no distress, morbidly obese Mental Status: oriented to person, place and time and normal affect Lungs: clear to auscultation bilaterally, normal effort Heart: regular rate and rhythm, no murmur Abdomen: soft, nontender, nondistended, normal bowel sounds, no masses, hepatomegaly, splenomegaly Extremities: no edema, redness, tenderness in the calves Skin: no gross lesions, rashes, induration Assessment: Hospital Problems Last Modified POA * (Principal) Coronary artery disease, occlusive 09/30/2019 Yes Multiple sclerosis (HCC) 09/30/2019 Yes CAD (coronary artery disease) 09/30/2019 Yes Iron deficiency anemia 09/30/2019 Yes NABOR (obstructive sleep apnea) 09/30/2019 Yes Overview Signed 01/10/2013 1:38 PM by Yessenia Kim CPAP 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 Hold morning dose of Lantus insulin if blood sugars remain in the 80s or 90s 2. Patient is not kept n.p.o. today 3. Apparently CT surgeon wants to discuss with patient further some time in afternoon today Tunde Pino MD 10/04/2019 8:36 AM * Zbigniew Reynoso PA - 10/04/2019 6:47 AM EST Discussed no surgery and reasons for no surgery today with nurse yday and last night. Dr. Spears surgery yday [address] Starks to discuss with other specialist options due to mulitple comorbities. Will speak with family when out of surgery today. ~ 1-2 oclock. Zbigniew Reynoso * Tunde Pino MD - 10/03/2019 3:48 PM EST [facility] IN-PATIENT SERVICE [facility] Progress Note 10/03/2019 3:48 PM Name: Lorenzo Amato Acct: [id number] Room: IP Day: 4 Admit Date: 09/29/2019 6:36 PM PCP: Lion Carlson MD Code Status: Full Code Subjective: C/C: Transfer from OSH: Left side chest pressure Interval History Status: Patient denies chest pain Using his CPAP Was on Eliquis at home which is on hold Nephrology has cleared him for cardiac cath and started Mucomyst Hematology/oncology also have cleared him for cath cardiology had done cath yesterday which shows MV CAD and recommended urgent CABG CT surgery plans to do tomorrow Creatinine 1.50 today which is better than before, nephrology okay with CABG A1c 8.1, last blood sugars 109 95 Brief History: Lorenzo Amato is a 49 y.o. Non-/non male who presents with No chief complaint on file. and is admitted to the hospital for the management of Coronary artery disease, occlusive. Mr. Amato is a transfer from OSH for acute onset of left side chest pressure that began at rest. Patient reports it began approx. 1 day ago and he denies any further associated symptoms. Of note-- patient had history of CO in 2005 with stent placement to LAD which presented with only symptom of left arm pain. He had stress test completed at [facility] which revealed multiple abnormalities consistent with high risk CAD. Patient subsequently had ECHO: and found to have reduced EF: 36% and left ventricular hypertrophy along with Diastolic Dysfunction. Given these findings--decision to transfer wasmade for cardiology evaluation and possible cardiac cath. PMH includes: MS (patient has not had any neurological follow up in several years, MS has been stable), Neuroendocrine gastric tumor with liver mets (diagnosed 2013 after presenting to hospital with GIB)-- on sandostatin (follows with Dr. Olivarez). Hx: DVT/PE (multiple secondary to hypercoagulablestate related to metastatic disease) patient in on chronic AC (recently Eliquis) as he developed multiple large/painful hematomas with Lovenox and had persistent bleeding with Warfarin-- he also has a GFF in place), NABOR with CPAP compliance, HTN,DMII, KELSEY On PE, patient is sitting up in bed and denies any symptoms. There is a large left scapula/mid backhematoma remaining from admission earlier this month, patient reports is smaller in size and no longer painful. is at bedside, hemodynamically stable, without signs of distress Review of Systems: Constitutional: negative for chills, fevers, sweats Respiratory: negative for cough, dyspnea on exertion, hemoptysis, shortness of breath, wheezing Cardiovascular: negative for chest pain at present, denies chest pressure/discomfort, lower extremity edema, palpitations Gastrointestinal: negative for abdominal pain, constipation, diarrhea, nausea, vomiting Neurological: negative for dizziness, headache Medications: Allergies: Allergies Allergen Reactions Toradol [Ketorolac Tromethamine] Other (See Comments) Pt went into kidney failure Lisinopril Other (See Comments) Cough Current Meds: Scheduled Meds: sodium chloride flush 10 mL Intravenous 2 times per day LORazepam 1 mg Intravenous Once insulin lispro 6 Units Subcutaneous TID AC Vitamin D 10,000 Units Oral Daily aspirin 81 mg Oral Daily atorvastatin 80 mg Oral Daily busPIRone 15 mg Oral TID DULoxetine 60 mg Oral Daily ferrous sulfate 325 mg Oral Daily with breakfast hydrALAZINE 75 mg Oral BID insulin glargine 100 Units Subcutaneous BID losartan 25 mg Oral Daily metoprolol 100 mg Oral BID pantoprazole 40 mg Oral BID AC tamsulosin 0.4 mg Oral Daily sodium chloride flush 10 mL Intravenous 2 times per day insulin lispro 0-18 Units Subcutaneous TID WC insulin lispro 0-9 Units Subcutaneous Nightly influenza virus vaccine 0.5 mL Intramuscular Once Continuous Infusions: heparin (porcine) 18 Units/kg/hr (10/03/19 6421) dextrose PRN Meds: sodium chloride flush, acetaminophen, glucose, dextrose, glucagon (rDNA), dextrose, sennosides-docusate sodium, heparin (porcine), heparin (porcine), hydrOXYzine, meclizine, polyethylene glycol, sodium chloride flush, potassium chloride OR potassium alternative oral replacement ORpotassium chloride, potassium chloride, magnesium sulfate, magnesium hydroxide, ondansetron, nitroGLYCERIN Data: Past Medical History: has a past medical history of Anemia, Arthritis, CAD (coronary artery disease), Chronic kidney disease, CKD (chronic kidney disease), Depression, Disease of blood and blood forming organ, DVT (deep venous thrombosis) ([facility]), GERD (gastroesophageal reflux disease), GERD (gastroes ophageal reflux disease), GI bleed, Lori filter in place, History of blood transfusion, Hypercholesteremia, Hypertension, Liver metastases (HCC), CO (myocardial infarction) (HCC), MS (multiple sclerosis) (HCC), Neuroendocrine tumor, Other disorders of kidney and ureter in diseases classified elsewhere, PE (pulmonary embolism), Type II or unspecified type diabetes mellitus without mention ofcomplication, not stated as uncontrolled, Unspecified sleep apnea, and Vitamin D deficiency. Social History: reports that he has never smoked. He has quit using smokeless tobacco. His smokeless tobacco use included chew. He reports that he does not drink alcohol or use drugs. Family History: Family History Problem Relation Age of Onset Cancer Mother ovarian Heart Disease Father Vitals: BP 129/78 Pulse 64 Temp 97.5 F (36.4 C) (Axillary) Resp 12 Ht 5' 9 (1.753 m) Wt 285 lb 1.6 oz (129.3 kg) SpO2 98% BMI 42.10 kg/m Temp (24hrs), Av.7 F (36.5 C), Min:97.4 F (36.3 C), Max:98.1 F (36.7 C) Recent Labs 10/02/19 1636 10/02/19 2027 10/03/19 0547 10/03/19 1204 POCGLU 60* 142* 101 95 I/O (24Hr): Intake/Output Summary (Last 24 hours) at 10/03/2019 1548 Last data filed at 10/03/2019 1239 Gross per 24 hour Intake 1070 ml Output 2250 ml Net -1180 ml Labs: Hematology: Recent Labs 10/02/19 0418 WBC 8.2 RBC 4.14* HGB 11.6* HCT 38.5* MCV 93.0 MCH 28.0 MCHC 30.1 RDW 16.5* PLT 246 MPV 9.7 Chemistry: Recent Labs 10/01/19 1545 10/02/19 0418 10/03/19 0645 NA 135 140 139 K 5.0 4.5 4.3 CL 100 103 103 CO2 26 26 25 GLUCOSE 167* 71 109* BUN 20 21* 18 CREATININE 1.77* 1.71* 1.50* ANIONGAP 9 11 11 LABGLOM 41* 43* 50* GFRAA 50* 52* >60 CALCIUM 8.8 8.9 8.6 Recent Labs 10/01/19 0725 10/01/19 2104 10/02/19 0703 10/02/19 1636 10/02/19 2027 10/03/19 0547 10/03/19 1204 LABA1C 7.6* -- -- -- -- -- -- -- POCGLU -- < > 146* 91 60* 142* 101 95 < > = values in this interval not displayed. ABG: Lab Results Component Value Date FIO2 TRAUMA 09/04/2019 Lab Results Component Value Date/Time SPECIAL NOT REPORTED 10/27/2018 01:44 PM Lab Results Component Value Date/Time CULTURE (A) 10/27/2018 01:44 PM STREPTOCOCCI, BETA HEMOLYTIC GROUP B 10 to 50,000 CFU/ML Radiology: Xr Chest Portable Result Date: 09/28/2019 Negative portable chest. Physical Examination: General appearance: alert, cooperative and no distress, morbidly obese Mental Status: oriented to person, place and time and normal affect Lungs: clear to auscultation bilaterally, normal effort Heart: regular rate and rhythm, no murmur Abdomen: soft, nontender, nondistended, normal bowel sounds, no masses, hepatomegaly, splenomegaly Extremities: no edema, redness, tenderness in the calves Skin: no gross lesions, rashes, induration Assessment: Hospital Problems Last Modified POA * (Principal) Coronary artery disease, occlusive 09/30/2019 Yes Multiple sclerosis (HCC) 09/30/2019 Yes CAD (coronary artery disease) 09/30/2019 Yes Iron deficiency anemia 09/30/2019 Yes NABOR (obstructive sleep apnea) 09/30/2019 Yes Overview Signed 01/10/2013 1:38 PM by Yessenia Kim CPAP 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 Nephrology have cleared the patient for CABG 2. cardiology kept him on heparin drip 3. Continue lispro to 6 units pre-meals, when allowed orally 4. Continue CPAP with home settings 5. Discussed with patient and his at bedside Tunde Pino MD 10/03/2019 3:48 PM * Trevor Serna MD - 10/03/2019 3:40 PM EST _ Today's Date: 10/03/2019 Patient Name: Lorenzo Amato Date of admission: 09/29/2019 6:36 PM Patient's age: 49 y.o., 1970 Admission Dx: Coronary artery disease, occlusive [I25.10] Chest pain [R07.9] Requesting Physician: Tunde Pino MD CHIEF COMPLAINT: Chest pain. Coronary artery disease. Metastatic carcinoid tumor. Consult for anticoagulation. SUBJECTIVE: . The patient was seen and examined. Patient is clinically stable. No chest pain. No shortness of breath. No active bleeding. Patient had cardiac cath Wednesday he had high-grade obstructions of multiple coronaries so no stents were applied but patient will need open heart surgery. BRIEF CASE HISTORY: The patient is a 49 y.o. male who is admitted to the hospital for further management of acute coronary ischemia. The patient is known to our practice. 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 He is maintained on Sandostatin. His disease is well controlled. Vinnie elliott had previous history of DVT and pulmonary embolism. He had inferior vena cava filter placement. He has been on different anticoagulation drugs. Previously was on Coumadin and Lovenox. He developed multiple complications. The patient was recently hospitalized because of huge hematoma in the left upper chest wall posteriorly with major drop of the hemoglobin level. He was hospitalized and received blood transfusions. Anticoagulation with Eliquis was resumed after stabilization. Patient was hospitalized because of chest pain with positive stress test. He was evaluated by cardiology. Plan to have cardiac cath and possible stents on Wednesday. Patient is feeling better now in the hospital. No fever or infections. No other complaints. Past Medical History: has a past medical history of Anemia, Arthritis, CAD (coronary artery disease), Chronic kidney disease, CKD (chronic kidney disease), Depression, Disease of blood and blood forming organ, DVT (deep venous thrombosis) (HCC), GERD (gastroesophageal reflux disease), GERD (gastroes ophageal reflux disease), GI bleed, Lori filter in place, History of blood transfusion, Hypercholesteremia, Hypertension, Liver metastases (HCC), CO (myocardial infarction) (HCC), MS (multiple sclerosis) (HCC), Neuroendocrine tumor, Other disorders of kidney and ureter in diseases classified elsewhere, PE (pulmonary embolism), Type II or unspecified type diabetes mellitus without mention ofcomplication, not stated as uncontrolled, Unspecified sleep apnea, and Vitamin D deficiency. Past Surgical History: has a past surgical history that includes Tonsillectomy; Appendectomy; Percutaneous Transluminal Coronary Angio; Colonoscopy; Vasectomy (18 years ago); Thyroid surgery (05/11/13); Coronary angioplasty with stent (2004); and Upper gastrointestinal endoscopy (10/14/2016). Family History: family history includes Cancer in his mother; Heart Disease in his father. Social History: reports that he has never smoked. He has quit using smokeless tobacco. His smokeless tobacco use included chew. He reports that he does not drink alcohol or use drugs. Medications: Prior to Admission medications Medication Sig Start Date End Date Taking? Authorizing Provider Cholecalciferol (VITAMIN D3 PO) Take 10,000 Units by mouth daily Historical Provider, hydrOXYzine (ATARAX) 25 MG tablet Take 1 tablet by mouth 3 times daily as needed for Anxiety 09/29/19 10/09/19 Lion Carlson MD losartan (COZAAR) 25 MG tablet Take 25 mg by mouth daily To be starting this medication every otherday, has not started yet. Historical Provider, ferrous sulfate 325 (65 Fe) MG EC tablet Take 1 tablet by mouth daily (with breakfast) 09/09/19 Stacy Vitale MD polyethylene glycol (GLYCOLAX) packet Take 17 g by mouth daily as needed for Constipation 09/08/19 10/08/19 Stacy Vitale MD senna (SENOKOT) 8.6 MG tablet Take 1 tablet by mouth nightly as needed (constipation) 09/08/19 10/08/19 Stacy Vitale MD tamsulosin (FLOMAX) 0.4 MG capsule Take 1 capsule by mouth daily 09/09/19 Stacy Vitale MD apixaban (ELIQUIS) 5 MG TABS tablet Take 1 tablet by mouth 2 times daily 09/08/19 Stacy Vitale MD busPIRone (BUSPAR) 15 MG tablet TAKE ONE TABLET BY MOUTH THREE TIMES A DAY 08/17/19 Lion Carlson MD hydrALAZINE (APRESOLINE) 50 MG tablet TAKE 1 1/2 TABLETS BY MOUTH TWICE DAILY 06/16/19 Lion Carlson MD metoprolol (LOPRESSOR) 100 MG tablet TAKE 1 TABLET BY MOUTH 2 TIMES A DAY 06/09/19 Lion Carlson MD atorvastatin (LIPITOR) 80 MG tablet TAKE 1 TABLET BY MOUTH ONE TIME DAILY 05/11/19 Lion Carlson MD omeprazole (PRILOSEC) 40 MG delayed release capsule TAKE 1 CAPSULE BY MOUTH 2 TIMES A DAY 04/14/19 Lion Carlson MD SANDOSTATIN LAR DEPOT 30 MG injection INJECT 30 MG INTO THE MUSCLE EVERY 28 DAYS 04/11/19 Trevor Serna MD DULoxetine (CYMBALTA) 60 MG extended release capsule TAKE 1 CAPSULE BY MOUTH ONE TIME A DAY 04/11/19Lion Carlson MD furosemide (LASIX) 20 MG tablet Take 1 tablet by mouth (20 mg) every other day Patient taking differently: See Admin Instructions As needed wt gain swelling 03/06/19 Lion Carlson MD insulin lispro (HUMALOG KWIKPEN) 100 UNIT/ML pen Inject 5 Units into the skin 3 times daily (beforemeals) 03/06/19 Lion Carlson MD Insulin Pen Needle (B-D ULTRAFINE III SHORT PEN) 31G X 8 MM MISC Use as directed with insulin pen needles, up to 5x/day 03/06/19 Lion Carlson MD Blood Glucose Monitoring Suppl (JUDITH AUTOCODE BLOOD GLUCOSE) w/Device KIT Use as directed to test up to 4 times daily 03/06/19 MD JUDITH Patel LANCETS 28G MISC Use as directed to test up to 4 times daily 03/06/19 Lion Carlson MD blood glucose test strips (JUDITH NO CODING BLOOD GLUC) strip 1 each by In Vitro route 4 times daily As needed. 03/06/19 Lion Carlson MD insulin glargine (TOUJEO MAX SOLOSTAR) 300 UNIT/ML injection pen Inject 130 Units into the skin 2 times daily 08/02/18 Lion Carlson MD meclizine (ANTIVERT) 25 MG tablet Take 1 tablet by mouth 3 times daily as needed for Dizziness 02/25/18 Lion Carlson MD Current Facility-Administered Medications Medication Dose Route Frequency Provider Last Rate Last Dose heparin 25,000 units in dextrose 5% 250 mL infusion 12 Units/kg/hr Intravenous Continuous Jim Mendoza MD 26.2 mL/hr at 10/03/19 1602 20 Units/kg/hr at 10/03/19 1602 sodium chloride flush 0.9 % injection 10 mL 10 mL Intravenous 2 times per day Jim Mendoza MD sodium chloride flush 0.9 % injection 10 mL 10 mL Intravenous PRN Jim Mendoza MD acetaminophen (TYLENOL) tablet 650 mg 650 mg Oral Q4H PRN Jim Mendoza MD LORazepam (ATIVAN) injection 1 mg 1 mg Intravenous Once Nuria Hassan, [employer] - CLAIMS ADJUSTOR insulin lispro (HUMALOG) injection vial 6 Units 6 Units Subcutaneous TID AC Jim Mendoza MD 6 Units at 10/03/19 1650 glucose (GLUTOSE) 40 % oral gel 15 g 15 g Oral PRN Jim Mendoza MD dextrose 50 % IV solution 12.5 g Intravenous PRN Jim Mendoza MD glucagon (rDNA) injection 1 mg 1 mg Intramuscular PRN Jim Mendoza MD dextrose 5 % solution 100 mL/hr Intravenous PRN Jim Mendoza MD sennosides-docusate sodium (SENOKOT-S) 8.6-50 MG tablet 2 tablet 2 tablet Oral BID PRN Jim Mendoza MD 2 tablet at 10/01/19 1046 Vitamin D (CHOLECALCIFEROL) tablet 10,000 Units 10,000 Units Oral Daily Jim Mendoza MD 10,000Units at 10/03/19 0838 aspirin chewable tablet 81 mg 81 mg Oral Daily Jim Mendoza MD 81 mg at 10/03/19 0839 heparin (porcine) injection 4,000 Units 4,000 Units Intravenous PRN Jim Mendoza MD 4,000 Units at 10/03/19 0107 heparin (porcine) injection 2,000 Units 2,000 Units Intravenous PRN Jim Mendoza MD 2,000 Units at 10/03/19 1602 atorvastatin (LIPITOR) tablet 80 mg 80 mg Oral Daily Jim Mendoza MD 80 mg at 10/03/19 0838 busPIRone (BUSPAR) tablet 15 mg 15 mg Oral TID Jim Mendoza MD 15 mg at 10/03/19 1649 DULoxetine (CYMBALTA) extended release capsule 60 mg 60 mg Oral Daily Jim Mendoza MD 60 mg at112/03/18 1228 ferrous sulfate EC tablet 325 mg 325 mg Oral Daily with breakfast Jim Mendoza MD 325 mg at 10/03/19 0837 hydrALAZINE (APRESOLINE) tablet 75 mg 75 mg Oral BID Jim Mendoza MD 75 mg at 10/03/19 0838 hydrOXYzine (ATARAX) tablet 25 mg 25 mg Oral TID PRN Jim Mendoza MD 25 mg at 10/02/19 2024 insulin glargine (LANTUS) injection vial 100 Units 100 Units Subcutaneous BID Jim Mendoza MD 100 Units at 10/03/19 0841 losartan (COZAAR) tablet 25 mg 25 mg Oral Daily Jim Mendoza MD 25 mg at 10/03/19 0838 meclizine (ANTIVERT) tablet 25 mg 25 mg Oral TID PRN Jim Mendoza MD metoprolol tartrate (LOPRESSOR) tablet 100 mg 100 mg Oral BID Jim Mendoza MD 100 mg at 10/03/19 0839 pantoprazole (PROTONIX) tablet 40 mg 40 mg Oral BID AC Jim Mendoza MD 40 mg at 10/03/19 1649 polyethylene glycol (GLYCOLAX) packet 17 g 17 g Oral Daily PRN Jim Mendoza MD tamsulosin (FLOMAX) capsule 0.4 mg 0.4 mg Oral Daily Jim Mendoza MD 0.4 mg at 10/03/19 0838 sodium chloride flush 0.9 % injection 10 mL 10 mL Intravenous 2 times per day Jim Mendoza MD 10 mL at 10/01/19 2106 sodium chloride flush 0.9 % injection 10 mL 10 mL Intravenous PRN Jim Mendoza MD potassium chloride (KLOR-CON M) extended release tablet 40 mEq 40 mEq Oral PRN Jim Mendoza MD Or potassium bicarb-citric acid (EFFER-K) effervescent tablet 40 mEq 40 mEq Oral PRN Jim Mendoza MD Or potassium chloride 10 mEq/100 mL IVPB (Peripheral Line) 10 mEq Intravenous PRN Jim Mendoza MD potassium chloride 10 mEq/100 mL IVPB (Peripheral Line) 10 mEq Intravenous PRN Jim Mendoza MD magnesium sulfate 1 g in dextrose 5% 100 mL IVPB 1 g Intravenous PRN Jim Mendoza MD magnesium hydroxide (MILK OF MAGNESIA) 400 MG/5ML suspension 30 mL 30 mL Oral Daily PRN Jim Mendoza MD ondansetron (ZOFRAN) injection 4 mg 4 mg Intravenous Q6H PRN Jim Mendoza MD nitroGLYCERIN (NITROSTAT) SL tablet 0.4 mg 0.4 mg Sublingual Q5 Min PRN Jim Mendoza MD insulin lispro (HUMALOG) injection vial 0-18 Units 0-18 Units Subcutaneous TID WC Jim Mendoza MD 3 Units at 09/30/19 0929 insulin lispro (HUMALOG) injection vial 0-9 Units 0-9 Units Subcutaneous Nightly Jim Mendoza MD 5 Units at 09/30/19 2144 influenza quadrivalent split vaccine (FLUZONE;FLUARIX;FLULAVAL;AFLURIA) injection 0.5 mL 0.5 mL Intramuscular Once Jim Mendoza MD Allergies: Toradol [ketorolac tromethamine] and Lisinopril REVIEW OF SYSTEMS: General: Positive for weakness and fatigue.. No unanticipated weight loss or decreased appetite. Nofever or chills. Eyes: No blurred vision, eye pain or double vision. Ears: No hearing problems or drainage. No tinnitus. Throat: No sore throat, problems with swallowing or dysphagia. Respiratory: No cough, sputum or hemoptysis. No shortness of breath. No pleuritic chest pain. Cardiovascular: As above. Gastrointestinal: No problems with swallowing. No abdominal pain or bloating. No nausea or vomiting. No diarrhea or constipation. No GI bleeding. Genitourinary: No dysuria, hematuria, frequency or urgency. Musculoskeletal: No muscle aches or pains. No limitation of movement. No back pain. No gait disturbance, No joint complaints. Dermatologic: No skin rashes or pruritus. No skin lesions or discolorations. Psychiatric: No depression, anxiety, or stress or signs of schizophrenia. No change in mood or affect. Hematologic: Hematomas as above. Infectious disease: No fever, chills or frequent infections. Endocrine: No polydipsia or polyuria. No temperature intolerance. Neurologic: No headaches or dizziness. No weakness or numbness of the extremities. No changes in balance, coordination, memory, mentation, behavior. Allergic/Immunologic: No nasal congestion or hives. No repeated infections. PHYSICAL EXAM: BP (!) 146/72 Pulse 68 Temp 98.4 F (36.9 C) (Oral) Resp 19 Ht 5' 9 (1.753 m) Wt 285 lb 1.6 oz (129.3 kg) SpO2 98% BMI 42.10 kg/m Temp (24hrs), Av.6 F (36.4 C), Min:96.2 F (35.7 C), Max:98.4 F (36.9 C) General appearance -patient is overweight. Well appearing, not in pain or distress Mental status - good mood, alert and oriented Eyes - pupils equal and reactive, extraocular eye movements intact Ears - bilateral TM's and external ear canals normal Nose - normal and patent, no erythema, discharge or polyps Mouth - mucous membranes moist, pharynx normal without lesions Neck - supple, no significant adenopathy Lymphatics - no palpable lymphadenopathy, no hepatosplenomegaly Chest - clear to auscultation, no wheezes, rales or rhonchi, symmetric air entry. Very large hematoma in the posterior chest wall in the left upper back. Heart - normal rate, regular rhythm, normal S1, S2, no murmurs, rubs, clicks or gallops Abdomen - soft, nontender, nondistended, no masses or organomegaly Neurological - alert, oriented, normal speech, no focal findings or movement disorder noted Musculoskeletal - no joint tenderness, deformity or swelling Extremities - peripheral pulses normal, no pedal edema, no clubbing or cyanosis Skin - normal coloration and turgor, no rashes, no suspicious skin lesions noted DATA: Labs: CBC: Recent Labs 10/02/19 0418 WBC 8.2 HGB 11.6* HCT 38.5* PLT 246 BMP: Recent Labs 10/02/19 0418 10/03/19 0645 NA 140 139 K 4.5 4.3 CO2 26 25 BUN 21* 18 CREATININE 1.71* 1.50* LABGLOM 43* 50* GLUCOSE 71 109* PT/INR: No results for input(s): PROTIME, INR in the last 72 hours. APTT: Recent Labs 10/03/19 0645 10/03/19 1419 APTT 48.9* 40.1* LIVER PROFILE: No results for input(s): AST, ALT, LABALBU in the last 72 hours. 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] 10/11/2016 DVT of lower extremity, bilateral (HCC) [I82.403] 06/14/2013 Liver metastases (HCC) [C78.7] 05/25/2013 Pulmonary embolism (HCC) [I26.99] 09/07/2012 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 [Z79.01] GERD (gastroesophageal reflux disease) [K21.9] 02/04/2012 Multiple sclerosis (HCC) [G35] 10/01/2011 Iron deficiency anemia [D50.9] 10/01/2011 CAD (coronary artery disease) [I25.10] 10/01/2011 NABOR (obstructive sleep apnea) [G47.33] 10/01/2011 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) [E11.22, E11.65] Benign essential HTN [I10] RECOMMENDATIONS: 1. Records and labs and images were reviewed and discussed with the patient. 2. Patient has metastatic gastric carcinoid with liver metastases maintained on Sandostatin LAR every 4 weeks. Disease is controlled. 3. Patient had previous DVT and pulmonary embolism and maintained on anticoagulation with Eliquis. 4. Patient developed recent large subcutaneous hematoma and anticoagulation was resumed after stabilization. 5. Currently with acute coronary syndrome. Cardiac cath Wednesday showed multiple blood vessels with very high-grade obstruction. Patient will need open heart surgery for CABG. 6. Anticoagulation will be resumed after the surgery. 7. We will continue to follow. Discussed with patient and his and Nurse. MD Trevor Moreira MD This note is created with the assistance of a speech recognition program. While intending to generate a document that actually reflects the content of the visit, the document can still have some errors including those of syntax and sound a like substitutions which may escape proof reading. It such instances, actual meaning can be extrapolated by contextual diversion. * Radha León RN - 10/03/2019 2:45 PM EST RN called and talked to Zbigniew [place] with CT surgery, not all pre-open heart testing has been ordered for patient. Zbigniew informed me that Dr. Starks will be in to speak with patient and that he will notbe having surgery tomorrow. Patient updated patient and on POC. * Radha León RN - 10/03/2019 12:35 PM EST Patient refused flu vaccine prior to surgery. Patient stated that he wants to receive prior to d/c. * Augusta Aly APRN - MARIA EUGENIA - 10/03/2019 11:20 AM EST [facility] Loom [facility] Progress Note Date: 10/03/2019 Patient name: Lorenzo Amato Date of admission: 09/29/2019 6:36 PM Date of : 1970 PCP: Lion Carlson MD Reason for Admission: Coronary artery disease, occlusive [I25.10] Chest pain [R07.9] Subjective: Clinical Changes / Abnormalities: Pt seen and examined in the room. Pt denies any CP or SOB. at bedside. Pt quiet. Medications: Scheduled Meds: sodium chloride flush 10 mL Intravenous 2 times per day LORazepam 1 mg Intravenous Once insulin lispro 6 Units Subcutaneous TID AC Vitamin D 10,000 Units Oral Daily aspirin 81 mg Oral Daily atorvastatin 80 mg Oral Daily busPIRone 15 mg Oral TID DULoxetine 60 mg Oral Daily ferrous sulfate 325 mg Oral Daily with breakfast hydrALAZINE 75 mg Oral BID insulin glargine 100 Units Subcutaneous BID losartan 25 mg Oral Daily metoprolol 100 mg Oral BID pantoprazole 40 mg Oral BID AC tamsulosin 0.4 mg Oral Daily sodium chloride flush 10 mL Intravenous 2 times per day insulin lispro 0-18 Units Subcutaneous TID WC insulin lispro 0-9 Units Subcutaneous Nightly influenza virus vaccine 0.5 mL Intramuscular Once Continuous Infusions: heparin (porcine) 18 Units/kg/hr (10/03/19 0734) dextrose CBC: Recent Labs 09/30/19 1256 10/02/19 0418 WBC 6.2 8.2 HGB 11.6* 11.6* PLT 259 246 BMP: Recent Labs 10/01/19 1545 10/02/19 0418 10/03/19 0645 NA 135 140 139 K 5.0 4.5 4.3 CL 100 103 103 CO2 26 26 25 BUN 20 21* 18 CREATININE 1.77* 1.71* 1.50* GLUCOSE 167* 71 109* Hepatic: No results for input(s): AST, ALT, ALB, BILITOT, ALKPHOS in the last 72 hours. Troponin: No results for input(s): TROPHS in the last 72 hours. BNP: No results for input(s): BNP in the last 72 hours. Lipids: No results for input(s): CHOL, HDL in the last 72 hours. Invalid input(s): LDLCALCU INR: No results for input(s): INR in the last 72 hours. EK09/28/19 Normal sinus rhythm, inferior infarct ECHO: 09/28/19 Left ventricle is normal in size. Severe concentric left ventricular hypertrophy. Global left ventricular systolic function is normal with an estimated ejection fraction of 60 % . Evidence of diastolic dysfunction. Left atrium is at upper limits of normal. Right atrium is mildly dilated . Normal right ventricular size and function. Aortic valve leaflets are mildly thickened. No aortic stenosis. Thickened mitral valve leaflets. Mild mitral regurgitation. Stress test: 09/29/19 1. Abnormal myocardial perfusion study. There is a moderate/large perfusion defect of moderate/severe intensity in the anterolateral, lateral, inferolateral, inferior region(s) during stress and restimaging, which is most consistent with an old myocardial infarction with judy-infarct ischemia. 2. Global left ventricular systolic function was abnormal with an EF of 36% with regional wall motion abnormalities. Overall these results are most consistent with 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/high risk for significant coronary artery disease. CARDIAC CATH 10/02/19 Findings: LMCA: No significant disease and mild irregularities. LAD: Mid 90% stenosis LCx: Patent proximal stent Distal 80% stenosis RCA: 100% proximal stenosis with collateral from the left system Coronary Tree Dominance: Right The LV gram was not performed Estimated blood loss: 5 ml Conclusions: Multivessel significant CAD Recommendations: 1. CT surgery consult for Urgent CABG 2. Medical Therapy. 3. Risk Factors Modification. 4. Post Cath Protocol Objective: Vitals: BP 110/72 Pulse 66 Temp 98.1 F (36.7 C) (Oral) Resp 20 Ht 5' 9 (1.753 m) Wt 285 lb 1.6 oz (129.3 kg) SpO2 97% BMI 42.10 kg/m General appearance: alert and cooperative with exam HEENT: Head: Normocephalic, no lesions, without obvious abnormality. Neck: no JVD, trachea midline, no adenopathy Lungs: Clear to auscultation Heart: Regular rate and rhythm, s1/s2 auscultated, no murmurs Abdomen: soft, non-tender, bowel sounds active Extremities: no edema Neurologic: not done Assessment / Acute Cardiac Problems: 5. Abnormal stress test with judy-infarct ischemia and EF 36% 6. Preserved LVEF on echo 7. CAD s/p LCX stent (3.5 x 20 mm) 8. CKD-3 9. H/O STEMI in 2005 as noted above 10. HTN 11. Hyperlipidemia 12. Insulin-dependent DM-2 13. 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 On ASA 81, Lipitor 80, Hydralazine 75 bid, Losartan 25, Lopressor 100 bid 2. Eliquis discontinued for cardiac cath and on heparin bridging 3. Will await CTS recommendations for CABG [facility]son [facility]oom [facility]. [phone] * Carrie Sharp MD - 10/03/2019 10:38 AM EST SUBJECTIVE Patient was lying flat. He was alert and oriented x3. Patient denies any chest pain No increase in leg swelling. Cardiac catheterization done yesterday, multivessel disease found, plan for open heart at some stage. Creatinine stable at 1.5. Urine output good. No complaints. His labs are stable, including his creatinine. IV fluids continue. OBJECTIVE CURRENT TEMPERATURE: Temp: 98.1 F (36.7 C) MAXIMUM TEMPERATURE OVER 24HRS: Temp (24hrs), Av.9 F (36.6 C), Min:97.4 F (36.3 C), Max:98.4 F (36.9 C) CURRENT RESPIRATORY RATE: Resp: 20 CURRENT PULSE: Pulse: 66 CURRENT BLOOD PRESSURE: BP: 110/72 24HR BLOOD PRESSURE RANGE: Systolic (24hrs), Av , Min:110 , Max:130 ; Diastolic (24hrs), Av, Min:61, Max:72 24HR INTAKE/OUTPUT: Intake/Output Summary (Last 24 hours) at 10/03/2019 1038 Last data filed at 10/02/2019 1838 Gross per 24 hour Intake 350 ml Output 1250 ml Net -900 ml WEIGHT : Patient Vitals for the past 96 hrs (Last 3 readings): Weight 10/03/19 0600 285 lb 1.6 oz (129.3 kg) 10/02/19 1321 284 lb 8 oz (129 kg) 09/30/19 0545 288 lb 4.8 oz (130.8 kg) PHYSICAL EXAM GENERAL APPEARANCE: Awake and alert x3, BiPAP in place NECK: No JVD, midline trachea PULMONARY: Bilateral air entry and clear to auscultation bialterally CADRDIOVASCULAR: regular rate and rhythm with positive S1 and S2 and no rubs ABDOMEN: soft nontender, bowel sounds present, no ascites EXTREMITIES: `Minimal lower extremity edema noted with 2+ DP pulses bilaterally CURRENT MEDICATIONS heparin 25,000 units in dextrose 5% 250 mL infusion, Continuous sodium chloride flush 0.9 % injection 10 mL, 2 times per day sodium chloride flush 0.9 % injection 10 mL, PRN acetaminophen (TYLENOL) tablet 650 mg, Q4H PRN LORazepam (ATIVAN) injection 1 mg, Once insulin lispro (HUMALOG) injection vial 6 Units, TID AC glucose (GLUTOSE) 40 % oral gel 15 g, PRN dextrose 50 % IV solution, PRN glucagon (rDNA) injection 1 mg, PRN dextrose 5 % solution, PRN sennosides-docusate sodium (SENOKOT-S) 8.6-50 MG tablet 2 tablet, BID PRN Vitamin D (CHOLECALCIFEROL) tablet 10,000 Units, Daily aspirin chewable tablet 81 mg, Daily heparin (porcine) injection 4,000 Units, PRN heparin (porcine) injection 2,000 Units, PRN atorvastatin (LIPITOR) tablet 80 mg, Daily busPIRone (BUSPAR) tablet 15 mg, TID DULoxetine (CYMBALTA) extended release capsule 60 mg, Daily ferrous sulfate EC tablet 325 mg, Daily with breakfast hydrALAZINE (APRESOLINE) tablet 75 mg, BID hydrOXYzine (ATARAX) tablet 25 mg, TID PRN insulin glargine (LANTUS) injection vial 100 Units, BID losartan (COZAAR) tablet 25 mg, Daily meclizine (ANTIVERT) tablet 25 mg, TID PRN metoprolol tartrate (LOPRESSOR) tablet 100 mg, BID pantoprazole (PROTONIX) tablet 40 mg, BID AC polyethylene glycol (GLYCOLAX) packet 17 g, Daily PRN tamsulosin (FLOMAX) capsule 0.4 mg, Daily sodium chloride flush 0.9 % injection 10 mL, 2 times per day sodium chloride flush 0.9 % injection 10 mL, PRN potassium chloride (KLOR-CON M) extended release tablet 40 mEq, PRN Or potassium bicarb-citric acid (EFFER-K) effervescent tablet 40 mEq, PRN Or potassium chloride 10 mEq/100 mL IVPB (Peripheral Line), PRN potassium chloride 10 mEq/100 mL IVPB (Peripheral Line), PRN magnesium sulfate 1 g in dextrose 5% 100 mL IVPB, PRN magnesium hydroxide (MILK OF MAGNESIA) 400 MG/5ML suspension 30 mL, Daily PRN ondansetron (ZOFRAN) injection 4 mg, Q6H PRN nitroGLYCERIN (NITROSTAT) SL tablet 0.4 mg, Q5 Min PRN insulin lispro (HUMALOG) injection vial 0-18 Units, TID WC insulin lispro (HUMALOG) injection vial 0-9 Units, Nightly influenza quadrivalent split vaccine (FLUZONE;FLUARIX;FLULAVAL;AFLURIA) injection 0.5 mL, Once LABS CBC: Recent Labs 09/30/19 1256 10/02/19 0418 WBC 6.2 8.2 RBC 4.10* 4.14* HGB 11.6* 11.6* HCT 38.2* 38.5* MCV 93.2 93.0 MCH 28.3 28.0 MCHC 30.4 30.1 RDW 16.9* 16.5* PLT 259 246 MPV 9.4 9.7 BMP: Recent Labs 10/01/19 1545 10/02/19 0418 10/03/19 0645 NA 135 140 139 K 5.0 4.5 4.3 CL 100 103 103 CO2 26 26 25 BUN 20 21* 18 CREATININE 1.77* 1.71* 1.50* GLUCOSE 167* 71 109* CALCIUM 8.8 8.9 8.6 MAGNESIUM: No results for input(s): MG in the last 72 hours. ALBUMIN: No results for input(s): LABALBU in the last 72 hours. IRON: Lab Results Component Value Date IRON 36 09/05/2019 IRON SATURATION: Lab Results Component Value Date LABIRON 17 09/05/2019 TIBC: Lab Results Component Value Date TIBC 215 09/05/2019 ASSESSMENT 1. Stage III chronic kidney disease with heavy proteinuria. His baseline creatinine is 1.8 mg/dL. Today's creatinine is slightly better than baseline at 1.5 with the patient having intravenous fluidsrunning. 2. Abnormal echo and stress: Patient is a scheduled for cardiac catheterization today, 10/02/19. The renal risk associated with cardiac catheterization explained to him in length yesterday which include but not limited to worsening of serum creatinine or renal function and in worse case scenario need for dialysis.. Patient verbally consented for the procedure. 3. Hypertension with the patient's blood pressure under good control 4. Nephrotic range proteinuria 5. Obstructive sleep apnea 6. Type 2 diabetes PLAN 1. Discontinue IV fluids 2. Risk of acute kidney injury post open heart explained 3. Patient is acceptable but higher than average risk for open heart surgery, no objection to proceed from nephrology standpoint. 4. Follow renal function. Please do not hesitate to call with questions. * Augusta Champion OT - 10/03/2019 9:37 AM EST Occupational Therapy Not Seen Note DATE: 10/03/2019 Name: Lorenzo Amato : 1970 Patient not available for Occupational Therapy due to: Testing Vein mapping per RN, potential OHS this week Next Scheduled Treatment: Re-check 10/04/2019 * Trevor Serna MD - 10/02/2019 9:08 PM EST _ Today's Date: 10/02/2019 Patient Name: Lorenzo Amato Date of admission: 09/29/2019 6:36 PM Patient's age: 49 y.o., 1970 Admission Dx: Coronary artery disease, occlusive [I25.10] Chest pain [R07.9] Requesting Physician: Tunde Pino MD CHIEF COMPLAINT: Chest pain. Coronary artery disease. Metastatic carcinoid tumor. Consult for anticoagulation. SUBJECTIVE: . The patient was seen and examined. Patient is clinically stable. No chest pain. No shortness of breath. No active bleeding. Patient had cardiac cath today. He had high-grade obstructions of multiple coronaries so no stents were applied but patient will need open heart surgery. BRIEF CASE HISTORY: The patient is a 49 y.o. male who is admitted to the hospital for further management of acute coronary ischemia. The patient is known to our practice. 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 He is maintained on Sandostatin. His disease is well controlled. Vinnie elliott had previous history of DVT and pulmonary embolism. He had inferior vena cava filter placement. He has been on different anticoagulation drugs. Previously was on Coumadin and Lovenox. He developed multiple complications. The patient was recently hospitalized because of huge hematoma in the left upper chest wall posteriorly with major drop of the hemoglobin level. He was hospitalized and received blood transfusions. Anticoagulation with Eliquis was resumed after stabilization. Patient was hospitalized because of chest pain with positive stress test. He was evaluated by cardiology. Plan to have cardiac cath and possible stents on Wednesday. Patient is feeling better now in the hospital. No fever or infections. No other complaints. Past Medical History: has a past medical history of Anemia, Arthritis, CAD (coronary artery disease), Chronic kidney disease, CKD (chronic kidney disease), Depression, Disease of blood and blood forming organ, DVT (deep venous thrombosis) (HCC), GERD (gastroesophageal reflux disease), GERD (gastroes ophageal reflux disease), GI bleed, [place] filter in place, History of blood transfusion, Hypercholesteremia, Hypertension, Liver metastases (HCC), CO (myocardial infarction) (HCC), MS (multiple sclerosis) (HCC), Neuroendocrine tumor, Other disorders of kidney and ureter in diseases classified elsewhere, PE (pulmonary embolism), Type II or unspecified type diabetes mellitus without mention ofcomplication, not stated as uncontrolled, Unspecified sleep apnea, and Vitamin D deficiency. Past Surgical History: has a past surgical history that includes Tonsillectomy; Appendectomy; Percutaneous Transluminal Coronary Angio; Colonoscopy; Vasectomy (18 years ago); Thyroid surgery (05/11/13); Coronary angioplasty with stent (2004); and Upper gastrointestinal endoscopy (10/14/2016). Family History: family history includes Cancer in his mother; Heart Disease in his father. Social History: reports that he has never smoked. He has quit using smokeless tobacco. His smokeless tobacco use included chew. He reports that he does not drink alcohol or use drugs. Medications: Prior to Admission medications Medication Sig Start Date End Date Taking? Authorizing Provider Cholecalciferol (VITAMIN D3 PO) Take 10,000 Units by mouth daily Historical Provider, hydrOXYzine (ATARAX) 25 MG tablet Take 1 tablet by mouth 3 times daily as needed for Anxiety 09/29/19 10/09/19 Lion Carlson MD losartan (COZAAR) 25 MG tablet Take 25 mg by mouth daily To be starting this medication every otherday, has not started yet. Historical Provider, ferrous sulfate 325 (65 Fe) MG EC tablet Take 1 tablet by mouth daily (with breakfast) 09/09/19 Stacy Vitale MD polyethylene glycol (GLYCOLAX) packet Take 17 g by mouth daily as needed for Constipation 09/08/19 10/08/19 Stacy Vitale MD senna (SENOKOT) 8.6 MG tablet Take 1 tablet by mouth nightly as needed (constipation) 09/08/19 10/08/19 Stacy Vitale MD tamsulosin (FLOMAX) 0.4 MG capsule Take 1 capsule by mouth daily 09/09/19 Stacy Vitale MD apixaban (ELIQUIS) 5 MG TABS tablet Take 1 tablet by mouth 2 times daily 09/08/19 Stacy Vitale MD busPIRone (BUSPAR) 15 MG tablet TAKE ONE TABLET BY MOUTH THREE TIMES A DAY 08/17/19 Lion Carlson MD hydrALAZINE (APRESOLINE) 50 MG tablet TAKE 1 1/2 TABLETS BY MOUTH TWICE DAILY 06/16/19 Lion Carlson MD metoprolol (LOPRESSOR) 100 MG tablet TAKE 1 TABLET BY MOUTH 2 TIMES A DAY 06/09/19 Lion Carlson MD atorvastatin (LIPITOR) 80 MG tablet TAKE 1 TABLET BY MOUTH ONE TIME DAILY 05/11/19 Lion Carlson MD omeprazole (PRILOSEC) 40 MG delayed release capsule TAKE 1 CAPSULE BY MOUTH 2 TIMES A DAY 04/14/19 Lion Carlson MD SANDOSTATIN LAR DEPOT 30 MG injection INJECT 30 MG INTO THE MUSCLE EVERY 28 DAYS 04/11/19 Trevor Serna MD DULoxetine (CYMBALTA) 60 MG extended release capsule TAKE 1 CAPSULE BY MOUTH ONE TIME A DAY 04/11/19Lion Carlson MD furosemide (LASIX) 20 MG tablet Take 1 tablet by mouth (20 mg) every other day Patient taking differently: See Admin Instructions As needed wt gain swelling 03/06/19 Lion Carlson MD insulin lispro (HUMALOG KWIKPEN) 100 UNIT/ML pen Inject 5 Units into the skin 3 times daily (beforemeals) 03/06/19 Lion Carlson MD Insulin Pen Needle (B-D ULTRAFINE III SHORT PEN) 31G X 8 MM MISC Use as directed with insulin pen needles, up to 5x/day 03/06/19 Lion Carlson MD Blood Glucose Monitoring Suppl (JUDITH AUTOCODE BLOOD GLUCOSE) w/Device KIT Use as directed to test up to 4 times daily 03/06/19 MD JUDITH Patel LANCETS 28G MISC Use as directed to test up to 4 times daily 03/06/19 Lion Carlson MD blood glucose test strips (PickUpPalANIBAL NO CODING BLOOD GLUC) strip 1 each by In Vitro route 4 times daily As needed. 03/06/19 Lion Carlson MD insulin glargine (TOUJEO MAX SOLOSTAR) 300 UNIT/ML injection pen Inject 130 Units into the skin 2 times daily 08/02/18 Lion Carlson MD meclizine (ANTIVERT) 25 MG tablet Take 1 tablet by mouth 3 times daily as needed for Dizziness 02/25/18 Lion Carlson MD Current Facility-Administered Medications Medication Dose Route Frequency Provider Last Rate Last Dose heparin 25,000 units in dextrose 5% 250 mL infusion 12 Units/kg/hr Intravenous Continuous Jim Mendoza MD 15.7 mL/hr at 10/02/19 1539 12 Units/kg/hr at 10/02/19 1539 sodium chloride flush 0.9 % injection 10 mL 10 mL Intravenous 2 times per day Jim Mendoza MD sodium chloride flush 0.9 % injection 10 mL 10 mL Intravenous PRN Jim Mendoza MD acetaminophen (TYLENOL) tablet 650 mg 650 mg Oral Q4H PRN Jim Mendoza MD LORazepam (ATIVAN) injection 1 mg 1 mg Intravenous Once Nuria Hassan APRN - MARIA EUGENIA insulin lispro (HUMALOG) injection vial 6 Units 6 Units Subcutaneous TID AC Jim Mendoza MD Stopped at 10/02/19 0640 glucose (GLUTOSE) 40 % oral gel 15 g 15 g Oral PRN Jim Mendoza MD dextrose 50 % IV solution 12.5 g Intravenous PRN Jim Mendoza MD glucagon (rDNA) injection 1 mg 1 mg Intramuscular PRN Jim Mendoza MD dextrose 5 % solution 100 mL/hr Intravenous PRN Jim Mendoza MD sennosides-docusate sodium (SENOKOT-S) 8.6-50 MG tablet 2 tablet 2 tablet Oral BID PRN Jim Mendoza MD 2 tablet at 10/01/19 1046 0.9 % sodium chloride infusion Intravenous Continuous Jim Mendoza MD 75 mL/hr at 10/02/19 0124 acetylcysteine (MUCOMYST) 20 % solution 600 mg 600 mg Oral BID Jim Mendoza MD 600 mg at 10/02/19 2025 Vitamin D (CHOLECALCIFEROL) tablet 10,000 Units 10,000 Units Oral Daily Jim Mendoza MD 10,000Units at 10/02/19 1021 aspirin chewable tablet 81 mg 81 mg Oral Daily Jim Mendoza MD 81 mg at 10/01/19 0835 heparin (porcine) injection 4,000 Units 4,000 Units Intravenous PRN Jim Mendoza MD heparin (porcine) injection 2,000 Units 2,000 Units Intravenous PRN Jim Mendoza MD 2,000 Units at 10/01/19 0850 atorvastatin (LIPITOR) tablet 80 mg 80 mg Oral Daily Jim Mendoza MD 80 mg at 10/02/19 1026 busPIRone (BUSPAR) tablet 15 mg 15 mg Oral TID Jim Mendoza MD 15 mg at 10/02/192023 DULoxetine (CYMBALTA) extended release capsule 60 mg 60 mg Oral Daily Jim Mendoza MD 60 mg at112/02/18 1025 ferrous sulfate EC tablet 325 mg 325 mg Oral Daily with breakfast Jim Mendoza MD 325 mg at 10/02/19 1025 hydrALAZINE (APRESOLINE) tablet 75 mg 75 mg Oral BID Jim Mendoza MD 75 mg at 10/02/19 1023 hydrOXYzine (ATARAX) tablet 25 mg 25 mg Oral TID PRN Jim Mendoza MD 25 mg at 10/02/192023 insulin glargine (LANTUS) injection vial 100 Units 100 Units Subcutaneous BID Jim Mendoza MD 100 Units at 10/02/192024 losartan (COZAAR) tablet 25 mg 25 mg Oral Daily Jim Mendoza MD 25 mg at 10/02/19 1026 meclizine (ANTIVERT) tablet 25 mg 25 mg Oral TID PRN Jim Mendoza MD metoprolol tartrate (LOPRESSOR) tablet 100 mg 100 mg Oral BID Jim Mendoza MD 100 mg at 10/02/192023 pantoprazole (PROTONIX) tablet 40 mg 40 mg Oral BID AC Jim Mendoza MD 40 mg at 10/02/19 1543 polyethylene glycol (GLYCOLAX) packet 17 g 17 g Oral Daily PRN Jim Mendoza MD tamsulosin (FLOMAX) capsule 0.4 mg 0.4 mg Oral Daily Jim Mendoza MD 0.4 mg at 10/02/19 1021 sodium chloride flush 0.9 % injection 10 mL 10 mL Intravenous 2 times per day Jim Mendoza MD 10 mL at 10/01/192105 sodium chloride flush 0.9 % injection 10 mL 10 mL Intravenous PRN Jim Mendoza MD potassium chloride (KLOR-CON M) extended release tablet 40 mEq 40 mEq Oral PRN Jim Mendoza MD Or potassium bicarb-citric acid (EFFER-K) effervescent tablet 40 mEq 40 mEq Oral PRN Jim Mendoza MD Or potassium chloride 10 mEq/100 mL IVPB (Peripheral Line) 10 mEq Intravenous PRN Jim Mendoza MD potassium chloride 10 mEq/100 mL IVPB (Peripheral Line) 10 mEq Intravenous PRN Jim Mendoza MD magnesium sulfate 1 g in dextrose 5% 100 mL IVPB 1 g Intravenous PRN Jim Mendoza MD magnesium hydroxide (MILK OF MAGNESIA) 400 MG/5ML suspension 30 mL 30 mL Oral Daily PRN Jim Mendoza MD ondansetron (ZOFRAN) injection 4 mg 4 mg Intravenous Q6H PRN Jim Mendoza MD nitroGLYCERIN (NITROSTAT) SL tablet 0.4 mg 0.4 mg Sublingual Q5 Min PRN Jim Mendoza MD insulin lispro (HUMALOG) injection vial 0-18 Units 0-18 Units Subcutaneous TID WC Jim Mendoza MD 3 Units at 09/30/19 0929 insulin lispro (HUMALOG) injection vial 0-9 Units 0-9 Units Subcutaneous Nightly Jim Mendoza MD 5 Units at 09/30/19 2144 influenza quadrivalent split vaccine (FLUZONE;FLUARIX;FLULAVAL;AFLURIA) injection 0.5 mL 0.5 mL Intramuscular Once Jim Mendoza MD Allergies: Toradol [ketorolac tromethamine] and Lisinopril REVIEW OF SYSTEMS: General: Positive for weakness and fatigue.. No unanticipated weight loss or decreased appetite. Nofever or chills. Eyes: No blurred vision, eye pain or double vision. Ears: No hearing problems or drainage. No tinnitus. Throat: No sore throat, problems with swallowing or dysphagia. Respiratory: No cough, sputum or hemoptysis. No shortness of breath. No pleuritic chest pain. Cardiovascular: As above. Gastrointestinal: No problems with swallowing. No abdominal pain or bloating. No nausea or vomiting. No diarrhea or constipation. No GI bleeding. Genitourinary: No dysuria, hematuria, frequency or urgency. Musculoskeletal: No muscle aches or pains. No limitation of movement. No back pain. No gait disturbance, No joint complaints. Dermatologic: No skin rashes or pruritus. No skin lesions or discolorations. Psychiatric: No depression, anxiety, or stress or signs of schizophrenia. No change in mood or affect. Hematologic: Hematomas as above. Infectious disease: No fever, chills or frequent infections. Endocrine: No polydipsia or polyuria. No temperature intolerance. Neurologic: No headaches or dizziness. No weakness or numbness of the extremities. No changes in balance, coordination, memory, mentation, behavior. Allergic/Immunologic: No nasal congestion or hives. No repeated infections. PHYSICAL EXAM: BP 121/66 Pulse 65 Temp 97.7 F (36.5 C) (Axillary) Resp 14 Ht 5' 9 (1.753 m) Wt 284 lb 8oz (129 kg) SpO2 97% BMI 42.01 kg/m Temp (24hrs), Av.2 F (36.8 C), Min:97.7 F (36.5 C), Max:98.4 F (36.9 C) General appearance -patient is overweight. Well appearing, not in pain or distress Mental status - good mood, alert and oriented Eyes - pupils equal and reactive, extraocular eye movements intact Ears - bilateral TM's and external ear canals normal Nose - normal and patent, no erythema, discharge or polyps Mouth - mucous membranes moist, pharynx normal without lesions Neck - supple, no significant adenopathy Lymphatics - no palpable lymphadenopathy, no hepatosplenomegaly Chest - clear to auscultation, no wheezes, rales or rhonchi, symmetric air entry. Very large hematoma in the posterior chest wall in the left upper back. Heart - normal rate, regular rhythm, normal S1, S2, no murmurs, rubs, clicks or gallops Abdomen - soft, nontender, nondistended, no masses or organomegaly Neurological - alert, oriented, normal speech, no focal findings or movement disorder noted Musculoskeletal - no joint tenderness, deformity or swelling Extremities - peripheral pulses normal, no pedal edema, no clubbing or cyanosis Skin - normal coloration and turgor, no rashes, no suspicious skin lesions noted DATA: Labs: CBC: Recent Labs 09/30/19 1256 10/02/19 0418 WBC 6.2 8.2 HGB 11.6* 11.6* HCT 38.2* 38.5* PLT 259 246 BMP: Recent Labs 10/01/19 1545 10/02/19 0418 NA 135 140 K 5.0 4.5 CO2 26 26 BUN 20 21* CREATININE 1.77* 1.71* LABGLOM 41* 43* GLUCOSE 167* 71 PT/INR: No results for input(s): PROTIME, INR in the last 72 hours. APTT: Recent Labs 10/02/19 0418 10/02/19 1415 APTT 72.3* 29.2 LIVER PROFILE: Recent Labs 09/30/19 0444 AST 9 ALT 8 LABALBU 3.1* 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] 10/11/2016 DVT of lower extremity, bilateral (HCC) [I82.403] 06/14/2013 Liver metastases (HCC) [C78.7] 05/25/2013 Pulmonary embolism (HCC) [I26.99] 09/07/2012 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 [Z79.01] GERD (gastroesophageal reflux disease) [K21.9] 02/04/2012 Multiple sclerosis (HCC) [G35] 10/01/2011 Iron deficiency anemia [D50.9] 10/01/2011 CAD (coronary artery disease) [I25.10] 10/01/2011 NABOR (obstructive sleep apnea) [G47.33] 10/01/2011 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) [E11.22, E11.65] Benign essential HTN [I10] RECOMMENDATIONS: 1. Records and labs and images were reviewed and discussed with the patient. 2. Patient has metastatic gastric carcinoid with liver metastases maintained on Sandostatin LAR every 4 weeks. Disease is controlled. 3. Patient had previous DVT and pulmonary embolism and maintained on anticoagulation with Eliquis. 4. Patient developed recent large subcutaneous hematoma and anticoagulation was resumed after stabilization. 5. Currently with acute coronary syndrome. Cardiac cath today showed multiple blood vessels with very high-grade obstruction. Patient will need open heart surgery for CABG. 6. Anticoagulation will be resumed after the surgery. 7. Patient understands the benefit and risks. 8. Discussed with Dr. Looney 9. Patient's questions were answered to the best of his satisfaction and he verbalized full understanding and agreement. 10. We will continue to follow. Discussed with patient and his and Nurse. MD Trevor Moreira MD This note is created with the assistance of a speech recognition program. While intending to generate a document that actually reflects the content of the visit, the document can still have some errors including those of syntax and sound a like substitutions which may escape proof reading. It such instances, actual meaning can be extrapolated by contextual diversion. * Cristina Wise RN - 10/02/2019 4:40 PM EST Perfect served Oncology to let them know to contact Zbigniew Reynoso (cardiothoracic sx) and gave them his phone number. * Milka Shabazz OT - 10/02/2019 11:[address] [facility] Occupational Therapy Not Seen Note DATE: 10/02/2019 Name: Lorenzo Amato : 1970 Patient not available for Occupational Therapy due to: [x] Testing: Pt off floor for testing [] Hemodialysis [] Blood Transfusion in Progress []Refusal by Patient: [] Surgery/Procedure: [] Strict Bedrest [] Sedation [] Spine Precautions [] Pt being transferred to palliative care at this time. Spoke with pt/family and OT services to bedefered. [] Pt independent with functional mobility and functional tasks. Pt with no OT acute care needs at this time, will defer OT eval. [] Other Next Scheduled Treatment: Ck 10/03 Milka Shabazz OT * Jm Tejada RN - 10/02/2019 11:29 AM EST Heparin drip off per Dr. Mendoza. * Jm Tejada RN - 10/02/2019 11:18 AM EST Patient admitted, consent signed and questions answered. Patient ready for procedure. Call light toreach with side rails up 2 of 2. Bilateral groin and right wrist clipped. Spouse at bedside with patient. History and physical completed. * Tim Saldana MD - 10/02/2019 10:18 AM EST SUBJECTIVE Patient was lying flat. He was alert and oriented x3. Patient denies any chest pain No increase in leg swelling. Plan for cardiac catheterization noted today. He has a BiPAP mask in place. He said he is anxious awaiting his cardiac catheterization. I did ask the nurse to check with the primary team if the patient could have an anxiolytic. He is n.p.o., awaiting heart catheterization today. His labs are stable, including his creatinine. OBJECTIVE CURRENT TEMPERATURE: Temp: 98.4 F (36.9 C) MAXIMUM TEMPERATURE OVER 24HRS: Temp (24hrs), Av.1 F (36.7 C), Min:97.4 F (36.3 C), Max:98.4 F (36.9 C) CURRENT RESPIRATORY RATE: Resp: 16 CURRENT PULSE: Pulse: 66 CURRENT BLOOD PRESSURE: BP: 131/72 24HR BLOOD PRESSURE RANGE: Systolic (24hrs), Av , Min:130 , Max:141 ; Diastolic (24hrs), Av, Min:57, Max:72 24HR INTAKE/OUTPUT: Intake/Output Summary (Last 24 hours) at 10/02/2019 1018 Last data filed at 10/02/2019 0637 Gross per 24 hour Intake 1662 ml Output 3150 ml Net -1488 ml WEIGHT : Patient Vitals for the past 96 hrs (Last 3 readings): Weight 09/30/19 0545 288 lb 4.8 oz (130.8 kg) 09/29/19 1840 285 lb 14.4 oz (129.7 kg) PHYSICAL EXAM GENERAL APPEARANCE: Awake and alert x3, BiPAP in place NECK: No JVD, midline trachea PULMONARY: Bilateral air entry and clear to auscultation bialterally CADRDIOVASCULAR: regular rate and rhythm with positive S1 and S2 and no rubs ABDOMEN: soft nontender, bowel sounds present, no ascites EXTREMITIES: `Minimal lower extremity edema noted with 2+ DP pulses bilaterally CURRENT MEDICATIONS 0.9 % sodium chloride infusion, Continuous PRN albuterol sulfate HFA 108 (90 Base) MCG/ACT inhaler 2 puff, PRN atropine injection 0.5 mg, Q5 Min PRN metoprolol (LOPRESSOR) injection 5 mg, Q5 Min PRN nitroGLYCERIN (NITROSTAT) SL tablet 0.4 mg, Q5 Min PRN ALPRAZolam (XANAX) tablet 0.25 mg, Once insulin lispro (HUMALOG) injection vial 6 Units, TID AC glucose (GLUTOSE) 40 % oral gel 15 g, PRN dextrose 50 % IV solution, PRN glucagon (rDNA) injection 1 mg, PRN dextrose 5 % solution, PRN sennosides-docusate sodium (SENOKOT-S) 8.6-50 MG tablet 2 tablet, BID PRN 0.9 % sodium chloride infusion, Continuous acetylcysteine (MUCOMYST) 20 % solution 600 mg, BID Vitamin D (CHOLECALCIFEROL) tablet 10,000 Units, Daily aspirin chewable tablet 81 mg, Daily heparin (porcine) injection 4,000 Units, PRN heparin (porcine) injection 2,000 Units, PRN heparin 25,000 units in dextrose 5% 250 mL infusion, Continuous atorvastatin (LIPITOR) tablet 80 mg, Daily busPIRone (BUSPAR) tablet 15 mg, TID DULoxetine (CYMBALTA) extended release capsule 60 mg, Daily ferrous sulfate EC tablet 325 mg, Daily with breakfast hydrALAZINE (APRESOLINE) tablet 75 mg, BID hydrOXYzine (ATARAX) tablet 25 mg, TID PRN insulin glargine (LANTUS) injection vial 100 Units, BID losartan (COZAAR) tablet 25 mg, Daily meclizine (ANTIVERT) tablet 25 mg, TID PRN metoprolol tartrate (LOPRESSOR) tablet 100 mg, BID pantoprazole (PROTONIX) tablet 40 mg, BID AC polyethylene glycol (GLYCOLAX) packet 17 g, Daily PRN tamsulosin (FLOMAX) capsule 0.4 mg, Daily sodium chloride flush 0.9 % injection 10 mL, 2 times per day sodium chloride flush 0.9 % injection 10 mL, PRN potassium chloride (KLOR-CON M) extended release tablet 40 mEq, PRN Or potassium bicarb-citric acid (EFFER-K) effervescent tablet 40 mEq, PRN Or potassium chloride 10 mEq/100 mL IVPB (Peripheral Line), PRN potassium chloride 10 mEq/100 mL IVPB (Peripheral Line), PRN magnesium sulfate 1 g in dextrose 5% 100 mL IVPB, PRN magnesium hydroxide (MILK OF MAGNESIA) 400 MG/5ML suspension 30 mL, Daily PRN ondansetron (ZOFRAN) injection 4 mg, Q6H PRN nitroGLYCERIN (NITROSTAT) SL tablet 0.4 mg, Q5 Min PRN insulin lispro (HUMALOG) injection vial 0-18 Units, TID WC insulin lispro (HUMALOG) injection vial 0-9 Units, Nightly influenza quadrivalent split vaccine (FLUZONE;FLUARIX;FLULAVAL;AFLURIA) injection 0.5 mL, Once LABS CBC: Recent Labs 09/30/19 0444 09/30/19 1256 10/02/19 0418 WBC 6.6 6.2 8.2 RBC 3.74* 4.10* 4.14* HGB 10.5* 11.6* 11.6* HCT 35.0* 38.2* 38.5* MCV 93.6 93.2 93.0 MCH 28.1 28.3 28.0 MCHC 30.0 30.4 30.1 RDW 17.0* 16.9* 16.5* PLT 259 259 246 MPV 9.8 9.4 9.7 BMP: Recent Labs 09/30/19 0444 10/01/19 1545 10/02/19 0418 NA 137 135 140 K 4.3 5.0 4.5 CL 102 100 103 CO2 25 26 26 BUN 20 20 21* CREATININE 1.71* 1.77* 1.71* GLUCOSE 158* 167* 71 CALCIUM 8.5* 8.8 8.9 MAGNESIUM: Recent Labs 09/30/19 0444 MG 1.9 ALBUMIN: Recent Labs 09/30/19 0444 LABALBU 3.1* IRON: Lab Results Component Value Date IRON 36 09/05/2019 IRON SATURATION: Lab Results Component Value Date LABIRON 17 09/05/2019 TIBC: Lab Results Component Value Date TIBC 215 09/05/2019 ASSESSMENT 1. Stage III chronic kidney disease with heavy proteinuria. His baseline creatinine is 1.8 mg/dL. Today's creatinine is slightly better than baseline at 1.71 with the patient having intravenous fluids running. 2. Abnormal echo and stress: Patient is a scheduled for cardiac catheterization today, 10/02/19. The renal risk associated with cardiac catheterization explained to him in length yesterday which include but not limited to worsening of serum creatinine or renal function and in worse case scenario need for dialysis.. Patient verbally consented for the procedure. 3. Hypertension with the patient's blood pressure under good control 4. Nephrotic range proteinuria 5. Obstructive sleep apnea 6. Type 2 diabetes PLAN 1. Continue IV fluids until 4 hours post cardiac catheterization 2. Patient is cleared for cardiac catheterization to the 3. It is okay from a nephrology standpoint the patient received anxiolytic prior to the cardiac testing. 4. Please use as little dye as possible and avoid left ventriculogram. Please do not hesitate to call with questions. * Augusta Aly, PROCESS OWNER - CLAIMS ADJUSTOR - 10/02/2019 9:49 AM EST Ladonna Loom Doffer Progress Note Date: 10/02/2019 Patient name: Lorenzo Amato Date of admission: 09/29/2019 6:36 PM Date of : 1970 PCP: Lion Carlson MD Reason for Admission: Coronary artery disease, occlusive [I25.10] Subjective: Clinical Changes / Abnormalities: Pt seen and examined in the room. Pt denies any CP or SOB. Medications: Scheduled Meds: insulin lispro 6 Units Subcutaneous TID AC acetylcysteine 600 mg Oral BID Vitamin D 10,000 Units Oral Daily aspirin 81 mg Oral Daily atorvastatin 80 mg Oral Daily busPIRone 15 mg Oral TID DULoxetine 60 mg Oral Daily ferrous sulfate 325 mg Oral Daily with breakfast hydrALAZINE 75 mg Oral BID insulin glargine 100 Units Subcutaneous BID losartan 25 mg Oral Daily metoprolol 100 mg Oral BID pantoprazole 40 mg Oral BID AC tamsulosin 0.4 mg Oral Daily sodium chloride flush 10 mL Intravenous 2 times per day insulin lispro 0-18 Units Subcutaneous TID WC insulin lispro 0-9 Units Subcutaneous Nightly influenza virus vaccine 0.5 mL Intramuscular Once Continuous Infusions: sodium chloride dextrose sodium chloride 75 mL/hr at 10/02/19 0124 heparin (porcine) 16.437 Units/kg/hr (10/02/19 0732) CBC: Recent Labs 09/30/19 0444 09/30/19 1256 10/02/19 0418 WBC 6.6 6.2 8.2 HGB 10.5* 11.6* 11.6* PLT 259 259 246 BMP: Recent Labs 09/30/19 0444 10/01/19 1545 10/02/19 0418 NA 137 135 140 K 4.3 5.0 4.5 CL 102 100 103 CO2 25 26 26 BUN 20 20 21* CREATININE 1.71* 1.77* 1.71* GLUCOSE 158* 167* 71 Hepatic: Recent Labs 09/30/19 0444 AST 9 ALT 8 BILITOT 0.31 ALKPHOS 70 Troponin: Recent Labs 09/29/19 1852 09/29/19 2213 TROPHS 21 21 BNP: No results for input(s): BNP in the last 72 hours. Lipids: Recent Labs 09/30/19 0444 CHOL 113 HDL 27* INR: No results for input(s): INR in the last 72 hours. EK09/28/19 Normal sinus rhythm, inferior infarct ECHO: 09/28/19 Left ventricle is normal in size. Severe concentric left ventricular hypertrophy. Global left ventricular systolic function is normal with an estimated ejection fraction of 60 % . Evidence of diastolic dysfunction. Left atrium is at upper limits of normal. Right atrium is mildly dilated . Normal right ventricular size and function. Aortic valve leaflets are mildly thickened. No aortic stenosis. Thickened mitral valve leaflets. Mild mitral regurgitation. Stress test: 09/29/19 1. Abnormal myocardial perfusion study. There is a moderate/large perfusion defect of moderate/severe intensity in the anterolateral, lateral, inferolateral, inferior region(s) during stress and restimaging, which is most consistent with an old myocardial infarction with judy-infarct ischemia. 2. Global left ventricular systolic function was abnormal with an EF of 36% with regional wall motion abnormalities. Overall these results are most consistent with 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/high risk for significant coronary artery disease. Objective: Vitals: BP 131/72 Pulse 66 Temp 98.4 F (36.9 C) (Axillary) Resp 16 Ht 5' 9 (1.753 m) Wt 288 lb 4.8 oz (130.8 kg) SpO2 100% BMI 42.57 kg/m General appearance: alert and cooperative with exam HEENT: Head: Normocephalic, no lesions, without obvious abnormality. Neck: no JVD, trachea midline, no adenopathy Lungs: Clear to auscultation Heart: Regular rate and rhythm, s1/s2 auscultated, no murmurs Abdomen: soft, non-tender, bowel sounds active Extremities: no edema Neurologic: not done Assessment / Acute Cardiac Problems: 1. Abnormal stress test with judy-infarct ischemia and EF 36% 2. Preserved LVEF on echo 3. CAD s/p LCX stent (3.5 x 20 mm) 4. CKD-3 5. H/O STEMI in 2005 as noted above 6. HTN 7. Hyperlipidemia 8. Insulin-dependent DM-2 9. 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 On ASA 81, Lipitor 80, Hydralazine 75 bid, Losartan 25, Lopressor 100 bid 2. Eliquis discontinued for cardiac cath and on heparin bridging 3. Nephrology and Hematology/oncology input appreciated 4. Dr Sampson Discussed Triple antithrombotic therapy risks in detail with patient and , including fatal bleeding and they verbalized understanding. Patient agreed to proceed. 5. OK to proceed with cath per Nephro. 6. Risks, benefits, and alternatives of cardiac catheterization were discussed, in detail, with patient and . Risks include, but are not limited to, bleeding requiring blood transfusion, vascularcomplication requiring surgery, renal failure with need for dialysis, anesthesia complications requiring intubation, infection, CVA, CO, and even . Patient verbalized understanding and agreed toproceed with the procedure understanding the above risks and alternatives to the procedure. 7. IF PCI NEEDED, WILL PROCEED WITH BMS PER DR. SAMPSON 8. Will order 1 time dose of xanax prior to cardiac cath, once consent obtained. Quincy Loom [facility]. [phone] * Leila Reed RCP - 10/02/2019 8:59 AM EST Smoking Cessation - topics covered [] Health Risks [] Benefits of Quitting [] Smoking Cessation [x] Patient has no history of tobacco use [] Patient is former smoker. [x] No need for tobacco cessation education. [] Booklet given [] Patient verbalizes understanding. [] Patient denies need for tobacco cessation education. [] Unable to meet with patient today. Will follow up as able. LEILA REED 8:59 AM * Tunde Pino MD - 10/02/2019 8:09 AM EST [facility] Progress Note 10/02/2019 8:09 AM Name: Lorenzo Amato Acct: [id number] Room: IP Day: 3 Admit Date: 09/29/2019 6:36 PM PCP: Lion Carlson MD Code Status: Full Code Subjective: C/C: Transfer from OSH: Left side chest pressure Interval History Status: Patient denies chest pain Using his CPAP Was on Eliquis at home which is on hold Nephrology has cleared him for cardiac cath and started Mucomyst Hematology/oncology also have cleared him for cath cardiology plans to do cath today today's Creatinine 1.71, nephrology okay with cath as long as creatinine is less than 1.8 A1c 8.1, last blood sugars 71 91 Brief History: Lorenzo Amato is a 49 y.o. Non-/non male who presents with No chief complaint on file. and is admitted to the hospital for the management of Coronary artery disease, occlusive. Mr. Amato is a transfer from OSH for acute onset of left side chest pressure that began at rest. Patient reports it began approx. 1 day ago and he denies any further associated symptoms. Of note-- patient had history of CO in 2005 with stent placement to LAD which presented with only symptom of left arm pain. He had stress test completed at [facility] which revealed multiple abnormalities consistent with high risk CAD. Patient subsequently had ECHO: and found to have reduced EF: 36% and left ventricular hypertrophy along with Diastolic Dysfunction. Given these findings--decision to transfer wasmade for cardiology evaluation and possible cardiac cath. PMH includes: MS (patient has not had any neurological follow up in several years, MS has been stable), Neuroendocrine gastric tumor with liver mets (diagnosed 2013 after presenting to hospital with GIB)-- on sandostatin (follows with Dr. Olivarez). Hx: DVT/PE (multiple secondary to hypercoagulablestate related to metastatic disease) patient in on chronic AC (recently Eliquis) as he developed multiple large/painful hematomas with Lovenox and had persistent bleeding with Warfarin-- he also has a GFF in place), NABOR with CPAP compliance, HTN,DMII, KELSEY On PE, patient is sitting up in bed and denies any symptoms. There is a large left scapula/mid backhematoma remaining from admission earlier this month, patient reports is smaller in size and no longer painful. is at bedside, hemodynamically stable, without signs of distress Review of Systems: Constitutional: negative for chills, fevers, sweats Respiratory: negative for cough, dyspnea on exertion, hemoptysis, shortness of breath, wheezing Cardiovascular: negative for chest pain at present, denies chest pressure/discomfort, lower extremity edema, palpitations Gastrointestinal: negative for abdominal pain, constipation, diarrhea, nausea, vomiting Neurological: negative for dizziness, headache Medications: Allergies: Allergies Allergen Reactions Toradol [Ketorolac Tromethamine] Other (See Comments) Pt went into kidney failure Lisinopril Other (See Comments) Cough Current Meds: Scheduled Meds: insulin lispro 6 Units Subcutaneous TID AC acetylcysteine 600 mg Oral BID Vitamin D 10,000 Units Oral Daily aspirin 81 mg Oral Daily atorvastatin 80 mg Oral Daily busPIRone 15 mg Oral TID DULoxetine 60 mg Oral Daily ferrous sulfate 325 mg Oral Daily with breakfast hydrALAZINE 75 mg Oral BID insulin glargine 100 Units Subcutaneous BID losartan 25 mg Oral Daily metoprolol 100 mg Oral BID pantoprazole 40 mg Oral BID AC tamsulosin 0.4 mg Oral Daily sodium chloride flush 10 mL Intravenous 2 times per day insulin lispro 0-18 Units Subcutaneous TID WC insulin lispro 0-9 Units Subcutaneous Nightly influenza virus vaccine 0.5 mL Intramuscular Once Continuous Infusions: dextrose sodium chloride 75 mL/hr at 10/02/19 0124 heparin (porcine) 16.437 Units/kg/hr (10/02/19 0732) PRN Meds: glucose, dextrose, glucagon (rDNA), dextrose, sennosides-docusate sodium, heparin (porcine), heparin (porcine), hydrOXYzine, meclizine, polyethylene glycol, sodium chloride flush, potassiumchloride OR potassium alternative oral replacement OR potassium chloride, potassium chloride, magnesium sulfate, magnesium hydroxide, ondansetron, nitroGLYCERIN Data: Past Medical History: has a past medical history of Anemia, Arthritis, CAD (coronary artery disease), Chronic kidney disease, CKD (chronic kidney disease), Depression, Disease of blood and blood forming organ, DVT (deep venous thrombosis) (HCC), GERD (gastroesophageal reflux disease), GERD (gastroes ophageal reflux disease), GI bleed, [place] filter in place, History of blood transfusion, Hypercholesteremia, Hypertension, Liver metastases (HCC), CO (myocardial infarction) (HCC), MS (multiple sclerosis) (HCC), Neuroendocrine tumor, Other disorders of kidney and ureter in diseases classified elsewhere, PE (pulmonary embolism), Type II or unspecified type diabetes mellitus without mention ofcomplication, not stated as uncontrolled, Unspecified sleep apnea, and Vitamin D deficiency. Social History: reports that he has never smoked. He has quit using smokeless tobacco. His smokeless tobacco use included chew. He reports that he does not drink alcohol or use drugs. Family History: Family History Problem Relation Age of Onset Cancer Mother ovarian Heart Disease Father Vitals: BP 131/72 Pulse 66 Temp 98.4 F (36.9 C) (Axillary) Resp 16 Ht 5' 9 (1.753 m) Wt 288 lb 4.8 oz (130.8 kg) SpO2 100% BMI 42.57 kg/m Temp (24hrs), Av.1 F (36.7 C), Min:97.4 F (36.3 C), Max:98.4 F (36.9 C) Recent Labs 10/01/19 0731 10/01/19 1204 10/01/19 2104 10/02/19 0703 POCGLU 83 151* 146* 91 I/O (24Hr): Intake/Output Summary (Last 24 hours) at 10/02/2019 0809 Last data filed at 10/02/2019 0637 Gross per 24 hour Intake 1662 ml Output 3150 ml Net -1488 ml Labs: Hematology: Recent Labs 09/30/19 0444 09/30/19 1256 10/02/19 0418 WBC 6.6 6.2 8.2 RBC 3.74* 4.10* 4.14* HGB 10.5* 11.6* 11.6* HCT 35.0* 38.2* 38.5* MCV 93.6 93.2 93.0 MCH 28.1 28.3 28.0 MCHC 30.0 30.4 30.1 RDW 17.0* 16.9* 16.5* PLT 259 259 246 MPV 9.8 9.4 9.7 Chemistry: Recent Labs 09/29/19 1852 09/29/19 2213 09/30/19 0444 10/01/19 1545 10/02/19 0418 NA -- -- 137 135 140 K -- -- 4.3 5.0 4.5 CL -- -- 102 100 103 CO2 -- -- 25 26 26 GLUCOSE -- -- 158* 167* 71 BUN -- -- 20 20 21* CREATININE -- -- 1.71* 1.77* 1.71* MG -- -- 1.9 -- -- ANIONGAP -- -- 10 9 11 LABGLOM -- -- 43* 41* 43* GFRAA -- -- 52* 50* 52* CALCIUM -- -- 8.5* 8.8 8.9 TROPHS -- -- -- Recent Labs 09/30/19 0444 09/30/19 1554 09/30/19 2140 10/01/19 0731 10/01/19 1204 10/01/19 2104 10/02/19 0703 PROT 5.4* -- -- -- -- -- -- -- LABALBU 3.1* -- -- -- -- -- -- -- AST 9 -- -- -- -- -- -- -- ALT 8 -- -- -- -- -- -- -- ALKPHOS 70 -- -- -- -- -- -- -- BILITOT 0.31 -- -- -- -- -- -- -- CHOL 113 -- -- -- -- -- -- -- HDL 27* -- -- -- -- -- -- -- LDLCHOLESTEROL 55 -- -- -- -- -- -- -- CHOLHDLRATIO 4.2 -- -- -- -- -- -- -- TRIG 153* -- -- -- -- -- -- -- VLDL NOT REPORTED* -- -- -- -- -- -- -- POCGLU -- < > 162* 250* 83 151* 146* 91 < > = values in this interval not displayed. ABG: Lab Results Component Value Date FIO2 TRAUMA 09/04/2019 Lab Results Component Value Date/Time SPECIAL NOT REPORTED 10/27/2018 01:44 PM Lab Results Component Value Date/Time CULTURE (A) 10/27/2018 01:44 PM STREPTOCOCCI, BETA HEMOLYTIC GROUP B 10 to 50,000 CFU/ML Radiology: Xr Chest Portable Result Date: 09/28/2019 Negative portable chest. Physical Examination: General appearance: alert, cooperative and no distress, morbidly obese Mental Status: oriented to person, place and time and normal affect Lungs: clear to auscultation bilaterally, normal effort Heart: regular rate and rhythm, no murmur Abdomen: soft, nontender, nondistended, normal bowel sounds, no masses, hepatomegaly, splenomegaly Extremities: no edema, redness, tenderness in the calves Skin: no gross lesions, rashes, induration Assessment: Hospital Problems Last Modified POA * (Principal) Coronary artery disease, occlusive 09/30/2019 Yes Multiple sclerosis (HCC) 09/30/2019 Yes CAD (coronary artery disease) 09/30/2019 Yes Iron deficiency anemia 09/30/2019 Yes NABOR (obstructive sleep apnea) 09/30/2019 Yes Overview Signed 01/10/2013 1:38 PM by Yessenia Kim CPAP 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) 09/30/2019 Yes Benign essential HTN 09/30/2019 Yes GERD (gastroesophageal reflux disease) 09/30/2019 Yes Pulmonary embolism (HCC) 09/30/2019 Yes nursing home current use of anticoagulant therapy 09/30/2019 Yes Liver metastases (HCC) 09/30/2019 Yes DVT of lower extremity, bilateral (HCC) 09/30/2019 Yes Gastric carcinoma (HCC) (Chronic) 09/30/2019 Yes CKD (chronic kidney disease) stage 3, GFR 30-59 ml/min (HCC) 09/30/2019 Yes History of pulmonary embolus (PE) 09/30/2019 Yes Subcutaneous hematoma 09/30/2019 Yes NABOR Plan: 1. Nephrology and oncology have cleared the patient for cardiac cath today, 10/02/2019 2. Cardiology kept him on heparin drip 3. Continue lispro to 6 units pre-meals, when allowed orally now 4. Continue CPAP with home settings 5. Discussed with patient and his at bedside Tunde Pino MD 10/02/2019 8:09 AM * Trevor Serna MD - 10/01/2019 4:34 PM EST _ Today's Date: 10/01/2019 Patient Name: Lorenzo Amato Date of admission: 09/29/2019 6:36 PM Patient's age: 49 y.o., 1970 Admission Dx: Coronary artery disease, occlusive [I25.10] Requesting Physician: Tunde Pino MD CHIEF COMPLAINT: Chest pain. Coronary artery disease. Metastatic carcinoid tumor. Consult for anticoagulation. SUBJECTIVE: . The patient was seen and examined. Patient is clinically stable. No chest pain. No shortness of breath. No active bleeding. Plan for cardiac cath tomorrow. BRIEF CASE HISTORY: The patient is a 49 y.o. male who is admitted to the hospital for further management of acute coronary ischemia. The patient is known to our practice. 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 He is maintained on Sandostatin. His disease is well controlled. Vinnie elliott had previous history of DVT and pulmonary embolism. He had inferior vena cava filter placement. He has been on different anticoagulation drugs. Previously was on Coumadin and Lovenox. He developed multiple complications. The patient was recently hospitalized because of huge hematoma in the left upper chest wall posteriorly with major drop of the hemoglobin level. He was hospitalized and received blood transfusions. Anticoagulation with Eliquis was resumed after stabilization. Patient was hospitalized because of chest pain with positive stress test. He was evaluated by cardiology. Plan to have cardiac cath and possible stents on Wednesday. Patient is feeling better now in the hospital. No fever or infections. No other complaints. Past Medical History: has a past medical history of Anemia, Arthritis, CAD (coronary artery disease), Chronic kidney disease, CKD (chronic kidney disease), Depression, Disease of blood and blood forming organ, DVT (deep venous thrombosis) (HCC), GERD (gastroesophageal reflux disease), GERD (gastroes ophageal reflux disease), GI bleed, [place] filter in place, History of blood transfusion, Hypercholesteremia, Hypertension, Liver metastases (HCC), CO (myocardial infarction) (HCC), MS (multiple sclerosis) (HCC), Neuroendocrine tumor, Other disorders of kidney and ureter in diseases classified elsewhere, PE (pulmonary embolism), Type II or unspecified type diabetes mellitus without mention ofcomplication, not stated as uncontrolled, Unspecified sleep apnea, and Vitamin D deficiency. Past Surgical History: has a past surgical history that includes Tonsillectomy; Appendectomy; Percutaneous Transluminal Coronary Angio; Colonoscopy; Vasectomy (18 years ago); Thyroid surgery (05/11/13); Coronary angioplasty with stent (2004); and Upper gastrointestinal endoscopy (10/14/2016). Family History: family history includes Cancer in his mother; Heart Disease in his father. Social History: reports that he has never smoked. He has quit using smokeless tobacco. His smokeless tobacco use included chew. He reports that he does not drink alcohol or use drugs. Medications: Prior to Admission medications Medication Sig Start Date End Date Taking? Authorizing Provider Cholecalciferol (VITAMIN D3 PO) Take 10,000 Units by mouth daily Historical Provider, hydrOXYzine (ATARAX) 25 MG tablet Take 1 tablet by mouth 3 times daily as needed for Anxiety 09/29/19 10/09/19 Lion Carlson MD losartan (COZAAR) 25 MG tablet Take 25 mg by mouth daily To be starting this medication every otherday, has not started yet. Historical Provider, ferrous sulfate 325 (65 Fe) MG EC tablet Take 1 tablet by mouth daily (with breakfast) 09/09/19 Stacy Vitale MD polyethylene glycol (GLYCOLAX) packet Take 17 g by mouth daily as needed for Constipation 09/08/19 10/08/19 Stacy Vitale MD senna (SENOKOT) 8.6 MG tablet Take 1 tablet by mouth nightly as needed (constipation) 09/08/19 10/08/19 Stacy Vitale MD tamsulosin (FLOMAX) 0.4 MG capsule Take 1 capsule by mouth daily 09/09/19 Stacy Vitale MD apixaban (ELIQUIS) 5 MG TABS tablet Take 1 tablet by mouth 2 times daily 09/08/19 Stacy Vitale MD busPIRone (BUSPAR) 15 MG tablet TAKE ONE TABLET BY MOUTH THREE TIMES A DAY 08/17/19 Lion Carlson MD hydrALAZINE (APRESOLINE) 50 MG tablet TAKE 1 1/2 TABLETS BY MOUTH TWICE DAILY 06/16/19 Lion Carlson MD metoprolol (LOPRESSOR) 100 MG tablet TAKE 1 TABLET BY MOUTH 2 TIMES A DAY 06/09/19 Lion Carlson MD atorvastatin (LIPITOR) 80 MG tablet TAKE 1 TABLET BY MOUTH ONE TIME DAILY 05/11/19 Lion Carlson MD omeprazole (PRILOSEC) 40 MG delayed release capsule TAKE 1 CAPSULE BY MOUTH 2 TIMES A DAY 04/14/19 Lion Carlson MD SANDOSTATIN LAR DEPOT 30 MG injection INJECT 30 MG INTO THE MUSCLE EVERY 28 DAYS 04/11/19 Trevor Serna MD DULoxetine (CYMBALTA) 60 MG extended release capsule TAKE 1 CAPSULE BY MOUTH ONE TIME A DAY 04/11/19Lion Carlson MD furosemide (LASIX) 20 MG tablet Take 1 tablet by mouth (20 mg) every other day Patient taking differently: See Admin Instructions As needed wt gain swelling 03/06/19 Lion Carlson MD insulin lispro (HUMALOG KWIKPEN) 100 UNIT/ML pen Inject 5 Units into the skin 3 times daily (beforemeals) 03/06/19 Lion Carlson MD Insulin Pen Needle (B-D ULTRAFINE III SHORT PEN) 31G X 8 MM MISC Use as directed with insulin pen needles, up to 5x/day 03/06/19 Lion Carslon MD Blood Glucose Monitoring Suppl (PickUpPalANIBAL AUTOCODE BLOOD GLUCOSE) w/Device KIT Use as directed to test up to 4 times daily 03/06/19 MD JUDITH Patel LANCETS 28G MISC Use as directed to test up to 4 times daily 03/06/19 Lion Carlson MD blood glucose test strips (ADINCONGayathri NO CODING BLOOD GLUC) strip 1 each by In Vitro route 4 times daily As needed. 03/06/19 Lion Carlson MD insulin glargine (TOUJEO MAX SOLOSTAR) 300 UNIT/ML injection pen Inject 130 Units into the skin 2 times daily 08/02/18 Lion Carlson MD meclizine (ANTIVERT) 25 MG tablet Take 1 tablet by mouth 3 times daily as needed for Dizziness 02/25/18 Lion Carlson MD Current Facility-Administered Medications Medication Dose Route Frequency Provider Last Rate Last Dose insulin lispro (HUMALOG) injection vial 6 Units 6 Units Subcutaneous TID AC Tunde Pino MD 6 Units at 10/01/19 1213 glucose (GLUTOSE) 40 % oral gel 15 g 15 g Oral PRN Tunde Pino MD dextrose 50 % IV solution 12.5 g Intravenous PRN Tunde Pino MD glucagon (rDNA) injection 1 mg 1 mg Intramuscular PRN Tunde Pino MD dextrose 5 % solution 100 mL/hr Intravenous PRN Tunde Pino MD sennosides-docusate sodium (SENOKOT-S) 8.6-50 MG tablet 2 tablet 2 tablet Oral BID PRN Tyrell Weinberg MD 2 tablet at 10/01/19 1046 [START ON 10/02/2019] 0.9 % sodium chloride infusion Intravenous Continuous Mak Richard MD acetylcysteine (MUCOMYST) 20 % solution 600 mg 600 mg Oral BID Mak Richard MD 600 mg at 10/01/19 1323 Vitamin D (CHOLECALCIFEROL) tablet 10,000 Units 10,000 Units Oral Daily Tunde Pino MD aspirin chewable tablet 81 mg 81 mg Oral Daily Tyrell Weinberg MD 81 mg at 10/01/19 0835 heparin (porcine) injection 4,000 Units 4,000 Units Intravenous PRN Tyrell Weinberg MD heparin (porcine) injection 2,000 Units 2,000 Units Intravenous PRN Tyrell Weinberg MD 2,000 Units at 10/01/19 0850 heparin 25,000 units in dextrose 5% 250 mL infusion 12 Units/kg/hr Intravenous Continuous Tyrell Weinberg MD 23.5 mL/hr at 10/01/19 1618 18 Units/kg/hr at 10/01/19 1618 atorvastatin (LIPITOR) tablet 80 mg 80 mg Oral Daily Deng Bahena PA-C 80 mg at 10/01/19 0835 busPIRone (BUSPAR) tablet 15 mg 15 mg Oral TID Deng Bahena PA-C 15 mg at 10/01/19 1559 DULoxetine (CYMBALTA) extended release capsule 60 mg 60 mg Oral Daily Deng Bahena PA-C 60 mg at 10/01/19 0835 ferrous sulfate EC tablet 325 mg 325 mg Oral Daily with breakfast Deng Bahena PA-C 325 mg at 10/01/19 0835 hydrALAZINE (APRESOLINE) tablet 75 mg 75 mg Oral BID Deng Bahena PA-C 75 mg at 10/01/19 0835 hydrOXYzine (ATARAX) tablet 25 mg 25 mg Oral TID PRN Deng Bahena PA-C insulin glargine (LANTUS) injection vial 100 Units 100 Units Subcutaneous BID Deng Bahena PA-C 100 Units at 10/01/19 0840 losartan (COZAAR) tablet 25 mg 25 mg Oral Daily Deng Bahena PA-C 25 mg at 10/01/19 0835 meclizine (ANTIVERT) tablet 25 mg 25 mg Oral TID PRN Deng Bahena PA-C metoprolol tartrate (LOPRESSOR) tablet 100 mg 100 mg Oral BID Deng Baehna PA-C 100 mg at 10/01/19 0835 pantoprazole (PROTONIX) tablet 40 mg 40 mg Oral BID AC Deng Bahena PA-C 40 mg at 10/01/19 0835 polyethylene glycol (GLYCOLAX) packet 17 g 17 g Oral Daily PRN Deng Bahena PA-C tamsulosin (FLOMAX) capsule 0.4 mg 0.4 mg Oral Daily Deng Bahena PA-C 0.4 mg at 10/01/19 0837 sodium chloride flush 0.9 % injection 10 mL 10 mL Intravenous 2 times per day Deng Bahena PA-C 10 mL at 09/30/19 0918 sodium chloride flush 0.9 % injection 10 mL 10 mL Intravenous PRN Deng Bahena PA-C potassium chloride (KLOR-CON M) extended release tablet 40 mEq 40 mEq Oral PRN Deng Bahena PA-C Or potassium bicarb-citric acid (EFFER-K) effervescent tablet 40 mEq 40 mEq Oral PRN Deng Bahena PA-C Or potassium chloride 10 mEq/100 mL IVPB (Peripheral Line) 10 mEq Intravenous PRN Deng Bahena PA-C potassium chloride 10 mEq/100 mL IVPB (Peripheral Line) 10 mEq Intravenous PRN Deng Bahena PA-C magnesium sulfate 1 g in dextrose 5% 100 mL IVPB 1 g Intravenous PRN Deng Bahena PA-C magnesium hydroxide (MILK OF MAGNESIA) 400 MG/5ML suspension 30 mL 30 mL Oral Daily PRN Deng Bahena PA-C ondansetron (ZOFRAN) injection 4 mg 4 mg Intravenous Q6H PRN Deng Bahena PA-C nitroGLYCERIN (NITROSTAT) SL tablet 0.4 mg 0.4 mg Sublingual Q5 Min PRN Deng Bahena PA-C insulin lispro (HUMALOG) injection vial 0-18 Units 0-18 Units Subcutaneous TID WC Deng Bahena PA-C 3 Units at 09/30/19 0929 insulin lispro (HUMALOG) injection vial 0-9 Units 0-9 Units Subcutaneous Nightly Deng Bahena PA-C 5 Units at 09/30/19 2144 influenza quadrivalent split vaccine (FLUZONE;FLUARIX;FLULAVAL;AFLURIA) injection 0.5 mL 0.5 mL Intramuscular Once Virender José Manuel Pino MD Allergies: Toradol [ketorolac tromethamine] and Lisinopril REVIEW OF SYSTEMS: General: Positive for weakness and fatigue.. No unanticipated weight loss or decreased appetite. Nofever or chills. Eyes: No blurred vision, eye pain or double vision. Ears: No hearing problems or drainage. No tinnitus. Throat: No sore throat, problems with swallowing or dysphagia. Respiratory: No cough, sputum or hemoptysis. No shortness of breath. No pleuritic chest pain. Cardiovascular: As above. Gastrointestinal: No problems with swallowing. No abdominal pain or bloating. No nausea or vomiting. No diarrhea or constipation. No GI bleeding. Genitourinary: No dysuria, hematuria, frequency or urgency. Musculoskeletal: No muscle aches or pains. No limitation of movement. No back pain. No gait disturbance, No joint complaints. Dermatologic: No skin rashes or pruritus. No skin lesions or discolorations. Psychiatric: No depression, anxiety, or stress or signs of schizophrenia. No change in mood or affect. Hematologic: Hematomas as above. Infectious disease: No fever, chills or frequent infections. Endocrine: No polydipsia or polyuria. No temperature intolerance. Neurologic: No headaches or dizziness. No weakness or numbness of the extremities. No changes in balance, coordination, memory, mentation, behavior. Allergic/Immunologic: No nasal congestion or hives. No repeated infections. PHYSICAL EXAM: BP 121/66 Pulse 64 Temp 97.7 F (36.5 C) (Axillary) Resp 16 Ht 5' 9 (1.753 m) Wt 288 lb 4.8 oz (130.8 kg) SpO2 99% BMI 42.57 kg/m Temp (24hrs), Av.6 F (36.4 C), Min:97.3 F (36.3 C), Max:97.9 F (36.6 C) General appearance -patient is overweight. Well appearing, not in pain or distress Mental status - good mood, alert and oriented Eyes - pupils equal and reactive, extraocular eye movements intact Ears - bilateral TM's and external ear canals normal Nose - normal and patent, no erythema, discharge or polyps Mouth - mucous membranes moist, pharynx normal without lesions Neck - supple, no significant adenopathy Lymphatics - no palpable lymphadenopathy, no hepatosplenomegaly Chest - clear to auscultation, no wheezes, rales or rhonchi, symmetric air entry. Very large hematoma in the posterior chest wall in the left upper back. Heart - normal rate, regular rhythm, normal S1, S2, no murmurs, rubs, clicks or gallops Abdomen - soft, nontender, nondistended, no masses or organomegaly Neurological - alert, oriented, normal speech, no focal findings or movement disorder noted Musculoskeletal - no joint tenderness, deformity or swelling Extremities - peripheral pulses normal, no pedal edema, no clubbing or cyanosis Skin - normal coloration and turgor, no rashes, no suspicious skin lesions noted DATA: Labs: CBC: Recent Labs 09/30/19 0444 09/30/19 1256 WBC 6.6 6.2 HGB 10.5* 11.6* HCT 35.0* 38.2* PLT 259 259 BMP: Recent Labs 09/30/19 0444 10/01/19 1545 NA 137 135 K 4.3 5.0 CO2 25 26 BUN 20 20 CREATININE 1.71* 1.77* LABGLOM 43* 41* GLUCOSE 158* 167* PT/INR: No results for input(s): PROTIME, INR in the last 72 hours. 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] 10/11/2016 DVT of lower extremity, bilateral (HCC) [I82.403] 06/14/2013 Liver metastases (HCC) [C78.7] 05/25/2013 Pulmonary embolism (HCC) [I26.99] 09/07/2012 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 [Z79.01] GERD (gastroesophageal reflux disease) [K21.9] 02/04/2012 Multiple sclerosis (HCC) [G35] 10/01/2011 Iron deficiency anemia [D50.9] 10/01/2011 CAD (coronary artery disease) [I25.10] 10/01/2011 NABOR (obstructive sleep apnea) [G47.33] 10/01/2011 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) [E11.22, E11.65] Benign essential HTN [I10] RECOMMENDATIONS: 1. Records and labs and images were reviewed and discussed with the patient. 2. Patient has metastatic gastric carcinoid with liver metastases maintained on Sandostatin LAR every 4 weeks. Disease is controlled. 3. Patient had previous DVT and pulmonary embolism and maintained on anticoagulation with Eliquis. 4. Patient developed recent large subcutaneous hematoma and anticoagulation was resumed after stabilization. 5. Currently with acute coronary syndrome. The patient will need cardiac cath and probable stents placement. I explained to the patient the challenging situation of the need for further anticoagulation probably triple anticoagulation with the use of aspirin, Plavix and Eliquis with high risk of bleeding. So considering the benefits and risks the patient will have cardiac cath on Wednesday and anticoagulation and double antiplatelets to be given. Coronary stents will be chosen to consider the shortest possible duration of Plavix treatment. Patient understands the risk and he agrees. 6. Discussed with Dr. Looney 7. Patient's questions were answered to the best of his satisfaction and he verbalized full understanding and agreement. 8. We will continue to follow. Discussed with patient and his and Nurse. MD Trevor Moreira MD This note is created with the assistance of a speech recognition program. While intending to generate a document that actually reflects the content of the visit, the document can still have some errors including those of syntax and sound a like substitutions which may escape proof reading. It such instances, actual meaning can be extrapolated by contextual diversion. * Mak Richard MD - 10/01/2019 12:03 PM EST SUBJECTIVE Patient was lying flat. He was alert and oriented x3. Patient denies any chest pain No increase in leg swelling. Plan for cardiac catheterization noted OBJECTIVE CURRENT TEMPERATURE: Temp: 97.7 F (36.5 C) MAXIMUM TEMPERATURE OVER 24HRS: Temp (24hrs), Av.6 F (36.4 C), Min:97.3 F (36.3 C), Max:97.9 F (36.6 C) CURRENT RESPIRATORY RATE: Resp: 16 CURRENT PULSE: Pulse: 64 CURRENT BLOOD PRESSURE: BP: 121/66 24HR BLOOD PRESSURE RANGE: Systolic (24hrs), Av , Min:119 , Max:133 ; Diastolic (24hrs), Av, Min:63, Max:66 24HR INTAKE/OUTPUT: Intake/Output Summary (Last 24 hours) at 10/01/2019 1204 Last data filed at 10/01/2019 1115 Gross per 24 hour Intake 908 ml Output 150 ml Net 758 ml WEIGHT : Patient Vitals for the past 96 hrs (Last 3 readings): Weight 09/30/19 0545 288 lb 4.8 oz (130.8 kg) 09/29/19 1840 285 lb 14.4 oz (129.7 kg) PHYSICAL EXAM GENERAL APPEARANCE: Awake and alert x3 EYES: Conjunctiva was pink NECK: No JVD or carotid bruit. PULMONARY: Bilateral air entry and clear to auscultation CADRDIOVASCULAR: S1 and S2 audible no S3 or murmur ABDOMEN: soft nontender, bowel sounds present, no organomegaly, no ascites EXTREMITIES: Trace edema CURRENT MEDICATIONS insulin lispro (HUMALOG) injection vial 6 Units, TID AC glucose (GLUTOSE) 40 % oral gel 15 g, PRN dextrose 50 % IV solution, PRN glucagon (rDNA) injection 1 mg, PRN dextrose 5 % solution, PRN sennosides-docusate sodium (SENOKOT-S) 8.6-50 MG tablet 2 tablet, BID PRN vitamin D3 (CHOLECALCIFEROL) tablet 10,000 Units, Daily [START ON 10/02/2019] 0.9 % sodium chloride infusion, Continuous acetylcysteine (MUCOMYST) 20 % solution 600 mg, BID aspirin chewable tablet 81 mg, Daily heparin (porcine) injection 4,000 Units, PRN heparin (porcine) injection 2,000 Units, PRN heparin 25,000 units in dextrose 5% 250 mL infusion, Continuous atorvastatin (LIPITOR) tablet 80 mg, Daily busPIRone (BUSPAR) tablet 15 mg, TID DULoxetine (CYMBALTA) extended release capsule 60 mg, Daily ferrous sulfate EC tablet 325 mg, Daily with breakfast hydrALAZINE (APRESOLINE) tablet 75 mg, BID hydrOXYzine (ATARAX) tablet 25 mg, TID PRN insulin glargine (LANTUS) injection vial 100 Units, BID losartan (COZAAR) tablet 25 mg, Daily meclizine (ANTIVERT) tablet 25 mg, TID PRN metoprolol tartrate (LOPRESSOR) tablet 100 mg, BID pantoprazole (PROTONIX) tablet 40 mg, BID AC polyethylene glycol (GLYCOLAX) packet 17 g, Daily PRN tamsulosin (FLOMAX) capsule 0.4 mg, Daily sodium chloride flush 0.9 % injection 10 mL, 2 times per day sodium chloride flush 0.9 % injection 10 mL, PRN potassium chloride (KLOR-CON M) extended release tablet 40 mEq, PRN Or potassium bicarb-citric acid (EFFER-K) effervescent tablet 40 mEq, PRN Or potassium chloride 10 mEq/100 mL IVPB (Peripheral Line), PRN potassium chloride 10 mEq/100 mL IVPB (Peripheral Line), PRN magnesium sulfate 1 g in dextrose 5% 100 mL IVPB, PRN magnesium hydroxide (MILK OF MAGNESIA) 400 MG/5ML suspension 30 mL, Daily PRN ondansetron (ZOFRAN) injection 4 mg, Q6H PRN nitroGLYCERIN (NITROSTAT) SL tablet 0.4 mg, Q5 Min PRN insulin lispro (HUMALOG) injection vial 0-18 Units, TID WC insulin lispro (HUMALOG) injection vial 0-9 Units, Nightly influenza quadrivalent split vaccine (FLUZONE;FLUARIX;FLULAVAL;AFLURIA) injection 0.5 mL, Once LABS CBC: Recent Labs 09/30/19 0444 09/30/19 1256 WBC 6.6 6.2 RBC 3.74* 4.10* HGB 10.5* 11.6* HCT 35.0* 38.2* MCV 93.6 93.2 MCH 28.1 28.3 MCHC 30.0 30.4 RDW 17.0* 16.9* PLT 259 259 MPV 9.8 9.4 BMP: Recent Labs 09/29/19 0533 09/30/19 0444 NA 138 137 K 4.3 4.3 CL 103 102 CO2 24 25 BUN 23* 20 CREATININE 1.88* 1.71* GLUCOSE 151* 158* CALCIUM 9.3 8.5* MAGNESIUM: Recent Labs 09/30/19 0444 MG 1.9 ALBUMIN: Recent Labs 09/30/19 0444 LABALBU 3.1* IRON: Lab Results Component Value Date IRON 36 09/05/2019 IRON SATURATION: Lab Results Component Value Date LABIRON 17 09/05/2019 TIBC: Lab Results Component Value Date TIBC 215 09/05/2019 ASSESSMENT 1. Stage III chronic kidney disease with heavy proteinuria. His baseline creatinine is 1.8 mg/dL. 2. Abnormal echo and stress: Patient is a scheduled for cardiac catheterization in a.m. The renal risk associated with cardiac catheterization explained to him in length which include but not limitedto worsening of serum creatinine or renal function and in worse case scenario need for dialysis.. There is good his sutures IV fluid and Mucomyst use was also explained to the patient. Patient verbally consented for the procedure. 3. Hypertension blood pressure is under good control 4. Nephrotic range proteinuria 5. Obstructive sleep apnea 6. Type 2 diabetes PLAN 1. Start IV fluid after midnight Start Mucomyst tonight and total of 4 doses 3. If creatinine remains under or at 1.8 mg/dL patient can go for cardiac catheterization from renal standpoint. Please use as little dye as possible and avoid left ventriculogram. Please do not hesitate to call with questions. * Blade Sampson MD - 10/01/2019 10:51 AM EST [facility] Progress Note Date: 10/01/2019 Patient name: Lorenzo Amato Date of admission: 09/29/2019 6:36 PM Date of : 1970 PCP: Lion Carlson MD Reason for Admission: Chest pressure Subjective: Clinical Changes / Abnormalities: Patient seen and examined. No acute events overnight. Remained hemodynamically stable and afebrile.Awaiting cath tomorrow. D/W patient and in detail and they would like to speak with research about potentially enrolling in short DAPT. D/W RN. I/O last 3 completed shifts: In: 908 [P.O.:480; I.V.:428] Out: - Medications: Scheduled Meds: insulin lispro 6 Units Subcutaneous TID AC aspirin 81 mg Oral Daily atorvastatin 80 mg Oral Daily busPIRone 15 mg Oral TID Vitamin D 10,000 Units Oral Daily DULoxetine 60 mg Oral Daily ferrous sulfate 325 mg Oral Daily with breakfast hydrALAZINE 75 mg Oral BID insulin glargine 100 Units Subcutaneous BID losartan 25 mg Oral Daily metoprolol 100 mg Oral BID pantoprazole 40 mg Oral BID AC tamsulosin 0.4 mg Oral Daily sodium chloride flush 10 mL Intravenous 2 times per day insulin lispro 0-18 Units Subcutaneous TID WC insulin lispro 0-9 Units Subcutaneous Nightly influenza virus vaccine 0.5 mL Intramuscular Once Continuous Infusions: dextrose heparin (porcine) 18 Units/kg/hr (10/01/19 8485) CBC: Recent Labs 09/30/19 0444 09/30/19 1256 WBC 6.6 6.2 HGB 10.5* 11.6* PLT 259 259 BMP: Recent Labs 09/29/19 0533 11/16/19 0444 NA 138 137 K 4.3 4.3 CL 103 102 CO2 24 25 BUN 23* 20 CREATININE 1.88* 1.71* GLUCOSE 151* 158* Hepatic: Recent Labs 09/30/19443 AST 9 ALT 8 BILITOT 0.31 ALKPHOS 70 Troponin: Recent Labs 09/29/19 0006 09/29/19 1852 09/29/19 2213 TROPHS NOT REPORTED 21 21 BNP: No results for input(s): BNP in the last 72 hours. Lipids: Recent Labs 09/30/19443 CHOL 113 HDL 27* INR: No results for input(s): INR in the last 72 hours. Objective: Vitals: BP 121/66 Pulse 64 Temp 97.7 F (36.5 C) (Axillary) Resp 16 Ht 5' 9 (1.753 m) Wt 288 lb 4.8 oz (130.8 kg) SpO2 99% BMI 42.57 kg/m General appearance: Alert. No acute distress. HEENT: Head: Normal, normocephalic, atraumatic. Neck: Supple, no carotid bruit, no JVD, trachea midline Lungs: Clear to auscultation bilaterally Heart: Regular rate and rhythm, S1, S2 normal, no murmur Abdomen: Soft, non-tender; bowel sounds normal Extremities: No cyanosis or edema Neurologic: No focal neurologic deficits Mental status: Alert, oriented, mood appropriate EK09/28/19 Normal sinus rhythm, inferior infarct ECHO: 09/28/19 Left ventricle is normal in size. Severe concentric left ventricular hypertrophy. Global left ventricular systolic function is normal with an estimated ejection fraction of 60 % . Evidence of diastolic dysfunction. Left atrium is at upper limits of normal. Right atrium is mildly dilated . Normal right ventricular size and function. Aortic valve leaflets are mildly thickened. No aortic stenosis. Thickened mitral valve leaflets. Mild mitral regurgitation. Stress test: 09/29/19 1. Abnormal myocardial perfusion study. There is a moderate/large perfusion defect of moderate/severe intensity in the anterolateral, lateral, inferolateral, inferior region(s) during stress and restimaging, which is most consistent with an old myocardial infarction with judy-infarct ischemia. 2. Global left ventricular systolic function was abnormal with an EF of 36% with regional wall motion abnormalities. Overall these results are most consistent with 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/high risk for significant coronary artery disease. Assessment: 1. Abnormal stress test with judy-infarct ischemia and EF 36% 2. Preserved LVEF on echo 3. CAD s/p LCX stent (3.5 x 20 mm) 4. CKD-3 5. H/O STEMI in 2006 as noted above 6. HTN 7. Hyperlipidemia 8. Insulin-dependent DM-2 9. 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 H/O MS Plan / Recommendations: 1. On ASA 81, Lipitor 80, Hydralazine 75 bid, Losartan 25, Lopressor 100 bid 2. Eliquis discontinued for cardiac cath and on heparin bridging 3. Nephrology and Hematology/oncology input appreciated 4. Discussed Triple antithrombotic therapy risks in detail with patient and , including fatal bleeding and they verbalized understanding. Patient agreed to proceed. 5. Patient would also like to explore any study he can be a part of for shorter DAPT as recommendedby heme/onc (?short DAPT) or proceed with BMS, if not eligible 6. OK to proceed with cath per Nephro 7. Keep NPO after midnight tonight with plans for cath tomorrow. 8. Risks, benefits, and alternatives of cardiac catheterization were discussed, in detail, with patient and . Risks include, but are not limited to, bleeding requiring blood transfusion, vascularcomplication requiring surgery, renal failure with need for dialysis, anesthesia complications requiring intubation, infection, CVA, CO, and even . Patient verbalized understanding and agreed toproceed with the procedure understanding the above risks and alternatives to the procedure. Thank you for allowing us to participate in Lorenzo Amato's care. Will follow with you Electronically signed on 10/01/19 at 10:51 AM by: Tyrell Weinberg MD Fellow, Cardiovascular Diseases [facility] Attending Physician Statement I have discussed the care of the patient, including pertinent history and exam findings, with the resident. I have seen and examined the patient and the singer elements of all parts of the encounter have been performed by me. I agree with the assessment, plan and orders as documented by the resident. Blade Sampson MD * Tunde Pino MD - 10/01/2019 7:35 AM EST [facility] IN-PATIENT SERVICE [facility] Progress Note 10/01/2019 7:35 AM Name: Lorenzo Amato Acct: [id number] Room: IP Day: 2 Admit Date: 09/29/2019 6:36 PM PCP: Lion Carlson MD Code Status: Full Code Subjective: C/C: Transfer from OSH: Left side chest pressure Interval History Status: Patient denies chest pain at present Was on Eliquis at home which is on hold Nephrology has cleared him for cardiac cath Hematology/oncology also have cleared him for cath cardiology plans to do cath tomorrow Today's BMP result is not available yet A1c 8.1, last blood sugars were 250 Brief History: Lorenzo Amato is a 49 y.o. Non-/non male who presents with No chief complaint on file. and is admitted to the hospital for the management of Coronary artery disease, occlusive. Mr. Amato is a transfer from OSH for acute onset of left side chest pressure that began at rest. Patient reports it began approx. 1 day ago and he denies any further associated symptoms. Of note-- patient had history of CO in 2005 with stent placement to LAD which presented with only symptom of left arm pain. He had stress test completed at [facility] which revealed multiple abnormalities consistent with high risk CAD. Patient subsequently had ECHO: and found to have reduced EF: 36% and left ventricular hypertrophy along with Diastolic Dysfunction. Given these findings--decision to transfer wasmade for cardiology evaluation and possible cardiac cath. PMH includes: MS (patient has not had any neurological follow up in several years, MS has been stable), Neuroendocrine gastric tumor with liver mets (diagnosed 2013 after presenting to hospital with GIB)-- on sandostatin (follows with Dr. Olivarez). Hx: DVT/PE (multiple secondary to hypercoagulablestate related to metastatic disease) patient in on chronic AC (recently Eliquis) as he developed multiple large/painful hematomas with Lovenox and had persistent bleeding with Warfarin-- he also has a GFF in place), NABOR with CPAP compliance, HTN,DMII, KELSEY On PE, patient is sitting up in bed and denies any symptoms. There is a large left scapula/mid backhematoma remaining from admission earlier this month, patient reports is smaller in size and no longer painful. is at bedside, hemodynamically stable, without signs of distress Review of Systems: Constitutional: negative for chills, fevers, sweats Respiratory: negative for cough, dyspnea on exertion, hemoptysis, shortness of breath, wheezing Cardiovascular: negative for chest pain at present, denies chest pressure/discomfort, lower extremity edema, palpitations Gastrointestinal: negative for abdominal pain, constipation, diarrhea, nausea, vomiting Neurological: negative for dizziness, headache Medications: Allergies: Allergies Allergen Reactions Toradol [Ketorolac Tromethamine] Other (See Comments) Pt went into kidney failure Lisinopril Other (See Comments) Cough Current Meds: Scheduled Meds: aspirin 81 mg Oral Daily atorvastatin 80 mg Oral Daily busPIRone 15 mg Oral TID Vitamin D 10,000 Units Oral Daily DULoxetine 60 mg Oral Daily ferrous sulfate 325 mg Oral Daily with breakfast hydrALAZINE 75 mg Oral BID insulin glargine 100 Units Subcutaneous BID insulin lispro 5 Units Subcutaneous TID AC losartan 25 mg Oral Daily metoprolol 100 mg Oral BID pantoprazole 40 mg Oral BID AC tamsulosin 0.4 mg Oral Daily sodium chloride flush 10 mL Intravenous 2 times per day insulin lispro 0-18 Units Subcutaneous TID WC insulin lispro 0-9 Units Subcutaneous Nightly influenza virus vaccine 0.5 mL Intramuscular Once Continuous Infusions: heparin (porcine) 16 Units/kg/hr (10/01/19 0537) PRN Meds: heparin (porcine), heparin (porcine), hydrOXYzine, meclizine, polyethylene glycol, senna,sodium chloride flush, potassium chloride OR potassium alternative oral replacement OR potassium chloride, potassium chloride, magnesium sulfate, magnesium hydroxide, ondansetron, nitroGLYCERIN Data: Past Medical History: has a past medical history of Anemia, Arthritis, CAD (coronary artery disease), Chronic kidney disease, CKD (chronic kidney disease), Depression, Disease of blood and blood forming organ, DVT (deep venous thrombosis) (HCC), GERD (gastroesophageal reflux disease), GERD (gastroes ophageal reflux disease), GI bleed, Lori filter in place, History of blood transfusion, Hypercholesteremia, Hypertension, Liver metastases (HCC), CO (myocardial infarction) (HCC), MS (multiple sclerosis) (HCC), Neuroendocrine tumor, Other disorders of kidney and ureter in diseases classified elsewhere, PE (pulmonary embolism), Type II or unspecified type diabetes mellitus without mention ofcomplication, not stated as uncontrolled, Unspecified sleep apnea, and Vitamin D deficiency. Social History: reports that he has never smoked. He has quit using smokeless tobacco. His smokeless tobacco use included chew. He reports that he does not drink alcohol or use drugs. Family History: Family History Problem Relation Age of Onset Cancer Mother ovarian Heart Disease Father Vitals: BP 121/66 Pulse 64 Temp 97.7 F (36.5 C) (Axillary) Resp 16 Ht 5' 9 (1.753 m) Wt 288 lb 4.8 oz (130.8 kg) SpO2 99% BMI 42.57 kg/m Temp (24hrs), Av.5 F (36.4 C), Min:97.3 F (36.3 C), Max:97.9 F (36.6 C) Recent Labs 09/29/19 2035 09/30/19 1220 09/30/19 1554 09/30/19 2140 POCGLU 290* 126* 162* 250* I/O (24Hr): Intake/Output Summary (Last 24 hours) at 10/01/2019 0735 Last data filed at 10/01/2019 0525 Gross per 24 hour Intake 908 ml Output Net 908 ml Labs: Hematology: Recent Labs 09/28/19 1035 09/30/19 0444 09/30/19 1256 WBC 7.0 6.6 6.2 RBC 4.41* 3.74* 4.10* HGB 12.7* 10.5* 11.6* HCT 38.6* 35.0* 38.2* MCV 87.5 93.6 93.2 MCH 28.7 28.1 28.3 MCHC 32.8 30.0 30.4 RDW 18.2* 17.0* 16.9* PLT 318 259 259 MPV NOT REPORTED 9.8 9.4 INR 1.0 -- -- DDIMER 4.73* -- -- Chemistry: Recent Labs 09/28/19 1035 09/29/19 0006 09/29/19 0533 09/29/19 1852 09/29/19 2213 09/30/19 044 NA 133* -- -- 138 -- -- 137 K 4.4 -- -- 4.3 -- -- 4.3 CL 96* -- -- 103 -- -- 102 CO2 23 -- -- 24 -- -- 25 GLUCOSE 367* -- -- 151* -- -- 158* BUN 25* -- -- 23* -- -- 20 CREATININE 1.75* -- -- 1.88* -- -- 1.71* MG -- -- -- -- -- -- 1.9 ANIONGAP 14 -- -- 11 -- -- 10 LABGLOM 41* -- -- 38* -- -- 43* GFRAA 50* -- -- 46* -- -- 52* CALCIUM 9.9 -- -- 9.3 -- -- 8.5* PROBNP 1,160* -- -- -- -- -- -- TROPHS NOT REPORTED < > NOT REPORTED -- -- < > = values in this interval not displayed. Recent Labs 09/28/19 0825 09/28/19 1035 09/29/19 0852 09/29/19 1241 09/29/19 2035 09/30/19 0444 09/30/19 1220 09/30/19 1554 09/30/19 2140 PROT 7.6 7.5 -- -- -- -- 5.4* -- -- -- LABALBU 4.1 4.0 -- -- -- -- 3.1* -- -- -- LABA1C 8.1* -- -- -- -- -- -- -- -- -- AST 12 13 -- -- -- -- 9 -- -- -- ALT 12 12 -- -- -- -- 8 -- -- -- ALKPHOS 99 106 -- -- -- -- 70 -- -- -- BILITOT 0.60 0.65 -- -- -- -- 0.31 -- -- -- CHOL 139 -- -- -- -- -- 113 -- -- -- HDL 36* -- -- -- -- -- 27* -- -- -- LDLCHOLESTEROL 54 -- -- -- -- -- 55 -- -- -- CHOLHDLRATIO 3.9 -- -- -- -- -- 4.2 -- -- -- TRIG 245* -- -- -- -- -- 153* -- -- -- VLDL NOT REPORTED* -- -- -- -- -- NOT REPORTED* -- -- -- POCGLU -- -- < > 124* 185* 290* -- 126* 162* 250* < > = values in this interval not displayed. ABG: Lab Results Component Value Date FIO2 TRAUMA 09/04/2019 Lab Results Component Value Date/Time SPECIAL NOT REPORTED 10/27/2018 01:44 PM Lab Results Component Value Date/Time CULTURE (A) 10/27/2018 01:44 PM STREPTOCOCCI, BETA HEMOLYTIC GROUP B 10 to 50,000 CFU/ML Radiology: Xr Chest Portable Result Date: 09/28/2019 Negative portable chest. Physical Examination: General appearance: alert, cooperative and no distress, morbidly obese Mental Status: oriented to person, place and time and normal affect Lungs: clear to auscultation bilaterally, normal effort Heart: regular rate and rhythm, no murmur Abdomen: soft, nontender, nondistended, normal bowel sounds, no masses, hepatomegaly, splenomegaly Extremities: no edema, redness, tenderness in the calves Skin: no gross lesions, rashes, induration Assessment: Hospital Problems Last Modified POA * (Principal) Coronary artery disease, occlusive 09/30/2019 Yes Multiple sclerosis (HCC) 09/30/2019 Yes CAD (coronary artery disease) 09/30/2019 Yes Iron deficiency anemia 09/30/2019 Yes NABOR (obstructive sleep apnea) 09/30/2019 Yes Overview Signed 01/10/2013 1:38 PM by Yessenia Kim CPAP 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) 09/30/2019 Yes Benign essential HTN 09/30/2019 Yes GERD (gastroesophageal reflux disease) 09/30/2019 Yes Pulmonary embolism (HCC) 09/30/2019 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 Nephrology and oncology have cleared the patient for cardiac cath on 10/02/2019 2. Cardiology kept him on heparin drip 3. Increase lispro to 6 units pre-meals 4. Continue CPAP with home settings 5. Discussed with patient and his at bedside Tunde Pino MD 10/01/2019 7:35 AM * Letty Randolph PT - 09/30/2019 10:25 AM EST Physical Therapy DATE: 09/30/2019 NAME: Lorenzo Amato : 1970 Patient not seen this date for Physical Therapy due to: [] Blood transfusion in progress [] Hemodialysis [x] Patient Declined--pt states he feels he's at his baseline independent state; present and agrees--they are awaiting cardiology consult. Both deny pt has PT needs--will defer PT eval per pt wishes/independence [] Spine Precautions [] Strict Bedrest [] Surgery/ Procedure [] Testing [] Other [] PT being discontinued at this time. Patient independent. No further needs. [] PT being discontinued at this time as the patient has been transferred to palliative care. No further needs. Agustín Saenz, PT * Tunde Pino MD - 09/30/2019 9:45 AM EST [facility] IN-PATIENT SERVICE [facility] Progress Note 09/30/2019 9:45 AM Name: Lorenzo Amato Acct: [id number] Room: IP Day: 1 Admit Date: 09/29/2019 6:36 PM PCP: Lion Carlson MD Code Status: Full Code Subjective: C/C: Transfer from OSH: Left side chest pressure Interval History Status: Patient denies chest pain at present Was on Eliquis at home which is on hold Nephrology has cleared him for cardiac cath cardiology will be evaluating the patient today Brief History: Lorenzo Amato is a 49 y.o. Non-/non male who presents with No chief complaint on file. and is admitted to the hospital for the management of Coronary artery disease, occlusive. Mr. Amato is a transfer from [facility] for acute onset of left side chest pressure that began at rest. Patient reports it began approx. 1 day ago and he denies any further associated symptoms. Of note-- patient had history of CO in 2005 with stent placement to LAD which presented with only symptom of left arm pain. He had stress test completed at [facility] which revealed multiple abnormalities consistent with high risk CAD. Patient subsequently had ECHO: and found to have reduced EF: 36% and left ventricular hypertrophy along with Diastolic Dysfunction. Given these findings--decision to transfer wasmade for cardiology evaluation and possible cardiac cath. PMH includes: MS (patient has not had any neurological follow up in several years, MS has been stable), Neuroendocrine gastric tumor with liver mets (diagnosed 2013 after presenting to hospital with GIB)-- on sandostatin (follows with Dr. Olivarez). Hx: DVT/PE (multiple secondary to hypercoagulablestate related to metastatic disease) patient in on chronic AC (recently Eliquis) as he developed multiple large/painful hematomas with Lovenox and had persistent bleeding with Warfarin-- he also has a GFF in place), NABOR with CPAP compliance, HTN,DMII, KELSEY On PE, patient is sitting up in bed and denies any symptoms. There is a large left scapula/mid backhematoma remaining from admission earlier this month, patient reports is smaller in size and no longer painful. is at bedside, hemodynamically stable, without signs of distress Review of Systems: Constitutional: negative for chills, fevers, sweats Respiratory: negative for cough, dyspnea on exertion, hemoptysis, shortness of breath, wheezing Cardiovascular: negative for chest pain at present, denies chest pressure/discomfort, lower extremity edema, palpitations Gastrointestinal: negative for abdominal pain, constipation, diarrhea, nausea, vomiting Neurological: negative for dizziness, headache Medications: Allergies: Allergies Allergen Reactions Toradol [Ketorolac Tromethamine] Other (See Comments) Pt went into kidney failure Lisinopril Other (See Comments) Cough Current Meds: Scheduled Meds: apixaban 5 mg Oral BID atorvastatin 80 mg Oral Daily busPIRone 15 mg Oral TID Vitamin D 10,000 Units Oral Daily DULoxetine 60 mg Oral Daily ferrous sulfate 325 mg Oral Daily with breakfast hydrALAZINE 75 mg Oral BID insulin glargine 100 Units Subcutaneous BID insulin lispro 5 Units Subcutaneous TID AC losartan 25 mg Oral Daily metoprolol 100 mg Oral BID pantoprazole 40 mg Oral BID AC tamsulosin 0.4 mg Oral Daily sodium chloride flush 10 mL Intravenous 2 times per day aspirin 325 mg Oral Daily insulin lispro 0-18 Units Subcutaneous TID WC insulin lispro 0-9 Units Subcutaneous Nightly influenza virus vaccine 0.5 mL Intramuscular Once Continuous Infusions: PRN Meds: hydrOXYzine, meclizine, polyethylene glycol, senna, sodium chloride flush, potassium chloride OR potassium alternative oral replacement OR potassium chloride, potassium chloride, magnesium sulfate, magnesium hydroxide, ondansetron, nitroGLYCERIN Data: Past Medical History: has a past medical history of Anemia, Arthritis, CAD (coronary artery disease), Chronic kidney disease, CKD (chronic kidney disease), Depression, Disease of blood and blood forming organ, DVT (deep venous thrombosis) (HCC), GERD (gastroesophageal reflux disease), GERD (gastroes ophageal reflux disease), GI bleed, Lori filter in place, History of blood transfusion, Hypercholesteremia, Hypertension, Liver metastases (HCC), CO (myocardial infarction) (HCC), MS (multiple sclerosis) (HCC), Neuroendocrine tumor, Other disorders of kidney and ureter in diseases classified elsewhere, PE (pulmonary embolism), Type II or unspecified type diabetes mellitus without mention ofcomplication, not stated as uncontrolled, Unspecified sleep apnea, and Vitamin D deficiency. Social History: reports that he has never smoked. He has quit using smokeless tobacco. His smokeless tobacco use included chew. He reports that he does not drink alcohol or use drugs. Family History: Family History Problem Relation Age of Onset Cancer Mother ovarian Heart Disease Father Vitals: BP 120/63 Pulse 58 Temp 97.3 F (36.3 C) (Axillary) Resp 14 Ht 5' 9 (1.753 m) Wt 288 lb 4.8 oz (130.8 kg) SpO2 100% BMI 42.57 kg/m Temp (24hrs), Av.7 F (36.5 C), Min:97.3 F (36.3 C), Max:98 F (36.7 C) Recent Labs 09/28/19 21009/29/19 0852 09/29/19 1241 09/29/19 2035 POCGLU 230* 124* 185* 290* I/O (24Hr): Intake/Output Summary (Last 24 hours) at 09/30/2019 0945 Last data filed at 09/30/2019 0600 Gross per 24 hour Intake 650 ml Output 1200 ml Net -550 ml Labs: Hematology: Recent Labs 09/28/19 0825 09/28/19 1035 09/30/19 0444 WBC 6.4 7.0 6.6 RBC 4.46* 4.41* 3.74* HGB 12.7* 12.7* 10.5* HCT 38.9* 38.6* 35.0* MCV 87.2 87.5 93.6 MCH 28.4 28.7 28.1 MCHC 32.6 32.8 30.0 RDW 18.6* 18.2* 17.0* PLT 326 318 259 MPV NOT REPORTED NOT REPORTED 9.8 INR -- 1.0 -- DDIMER -- 4.73* -- Chemistry: Recent Labs 09/28/19 1035 09/29/19 0006 09/29/19 0533 09/29/19 1852 09/29/19 2213 09/30/19 0444 NA 133* -- -- 138 -- -- 137 K 4.4 -- -- 4.3 -- -- 4.3 CL 96* -- -- 103 -- -- 102 CO2 23 -- -- 24 -- -- 25 GLUCOSE 367* -- -- 151* -- -- 158* BUN 25* -- -- 23* -- -- 20 CREATININE 1.75* -- -- 1.88* -- -- 1.71* MG -- -- -- -- -- -- 1.9 ANIONGAP 14 -- -- 11 -- -- 10 LABGLOM 41* -- -- 38* -- -- 43* GFRAA 50* -- -- 46* -- -- 52* CALCIUM 9.9 -- -- 9.3 -- -- 8.5* PROBNP 1,160* -- -- -- -- -- -- TROPHS NOT REPORTED < > NOT REPORTED -- -- < > = values in this interval not displayed. Recent Labs 09/28/19 0825 09/28/19 1035 09/28/19 1259 09/28/19 1654 09/28/19 2104 09/29/19 0852 09/29/19 1241 09/29/19 2035 09/30/19 0444 PROT 7.6 7.5 -- -- -- -- -- -- -- 5.4* LABALBU 4.1 4.0 -- -- -- -- -- -- -- 3.1* LABA1C 8.1* -- -- -- -- -- -- -- -- -- AST 12 13 -- -- -- -- -- -- -- 9 ALT 12 12 -- -- -- -- -- -- -- 8 ALKPHOS 99 106 -- -- -- -- -- -- -- 70 BILITOT 0.60 0.65 -- -- -- -- -- -- -- 0.31 CHOL 139 -- -- -- -- -- -- -- -- 113 HDL 36* -- -- -- -- -- -- -- -- 27* LDLCHOLESTEROL 54 -- -- -- -- -- -- -- -- 55 CHOLHDLRATIO 3.9 -- -- -- -- -- -- -- -- 4.2 TRIG 245* -- -- -- -- -- -- -- -- 153* VLDL NOT REPORTED* -- -- -- -- -- -- -- -- NOT REPORTED* POCGLU -- -- < > 214* 119* 230* 124* 185* 290* -- < > = values in this interval not displayed. ABG: Lab Results Component Value Date FIO2 TRAUMA 09/04/2019 Lab Results Component Value Date/Time SPECIAL NOT REPORTED 10/27/2018 01:44 PM Lab Results Component Value Date/Time CULTURE (A) 10/27/2018 01:44 PM STREPTOCOCCI, BETA HEMOLYTIC GROUP B 10 to 50,000 CFU/ML Radiology: Xr Chest Portable Result Date: 09/28/2019 Negative portable chest. Physical Examination: General appearance: alert, cooperative and no distress, morbidly obese Mental Status: oriented to person, place and time and normal affect Lungs: clear to auscultation bilaterally, normal effort Heart: regular rate and rhythm, no murmur Abdomen: soft, nontender, nondistended, normal bowel sounds, no masses, hepatomegaly, splenomegaly Extremities: no edema, redness, tenderness in the calves Skin: no gross lesions, rashes, induration Assessment: Hospital Problems Last Modified POA * (Principal) Coronary artery disease, occlusive 09/30/2019 Yes Multiple sclerosis (HCC) 09/30/2019 Yes CAD (coronary artery disease) 09/30/2019 Yes Iron deficiency anemia 09/30/2019 Yes NABOR (obstructive sleep apnea) 09/30/2019 Yes Overview Signed 01/10/2013 1:38 PM by Yessenia Kim CPAP 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) 09/30/2019 Yes Benign essential HTN 09/30/2019 Yes GERD (gastroesophageal reflux disease) 09/30/2019 Yes Pulmonary embolism (HCC) 09/30/2019 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 Nephrology has cleared the patient for cardiac cath on 10/02/2019 2. Hematology/oncology consult will also be requested for his underlying condition since he will need triple antithrombotic start therapy per cardiology 3. Cardiology plans to start him on heparin josie Pino MD 09/30/2019 9:45 AM documented in this encounter Reason for Referral StatusReasonSpecialtyDiagnoses / ProceduresReferred By ContactReferred To ContactOpen Specialty Services Required Cardiac Rehabilitation Diagnoses Coronary artery disease involving [place] coronary artery of [place] heart without angina pectoris Coronary artery disease, occlusive Stvz Car [address] [place] [address] [facility] [address] [place] [address] Scheduling Instructions [facility] [address] [place] [address] [phone] SpecialtyDiagnoses / ProceduresReferred By ContactReferred To ContactCardiology Diagnoses Vitamin D deficiency Mixed hyperlipidemia Coronary artery disease involving [place] coronary artery of [place] heart without angina pectoris Fatigue, unspecified type Shortness of breath NABOR (obstructive sleep apnea) Benign essential HTN Procedures EKG 12 lead Abdirizak Oro MD [address] [place] [address] Referral IDStatusReasonCoalton DateExpiration DateVisits RequestedVisits [id number] / ProceduresReferred By ContactReferred To ContactRadiology Diagnoses GIST, non-malignant Procedures CT Abdomen Pelvis With Contrast Brian Arevalo MD [address] [address] Referral [facility]Status[facility] DateExpiration DateVisits RequestedVisits [id number] /[id number] / ProceduresReferred By ContactReferred To ContactCardiac Rehabilitation Diagnoses S/P PTCA (percutaneous transluminal coronary angioplasty) Melba Singh MD [address] [place] [address] Cardio Pulm [address] [place] [phone] Referral IDStatusReasonStart DateExpiration DateVisits RequestedVisits [id number] / Procedures Referred By ContactReferred To Contact Diagnoses Vitamin D deficiency Mixed hyperlipidemia Coronary artery disease involving [place] coronary artery of [place] heart without angina pectoris Benign essential HTN SOB (shortness of breath) Procedures Echo (TTE) complete (PRN contrast/bubble/strain/3D) MT ECHO TTHRC R-T 2D W/WOM-MODE COMPL SPEC&COLR D MT TTE W OR WO FOL WCON,DOPPLER Abdirizak Oro MD [address] [place] [address] Referral IDStatusReasonStart DateExpiration DateVisits RequestedVisits [id number]/ Summary Purpose Family History No Family History Records FoundNo Family History Records FoundNo Family History Records FoundNo Family History Records FoundNo Family History Records FoundNo Family History Records Found Additional Source Comments Reason for Visit (unrecogniz ed section and content) StatusReasonSpecialtyDiagnoses / ProceduresReferred By ContactReferred To ContactAuthorized Diagnoses Carcinoid tumor of stomach, unspecified whether malignant Procedures SandMaria Teresa Moore MD [address] [address] [facility] Med Onc [address] [place] [address] ReasonCommentsTraumatx from [place], fracture,StatusReasonSpecialtyDiagnoses / ProceduresReferred By ContactReferred To Contact Diagnoses Subcutaneous hematoma Cheng Vicente DO [address] [facility], [address] [place] [address] [facility] StatusReasonSpecialtyDiagnoses / ProceduresReferred By ContactReferred To ContactAuthorized Diagnoses Carcinoid tumor of stomach, unspecified whether malignant Procedures SandMaria Teersa Moore A, MD [address] [place] [address] [facility] Med Onc [address] [place] [address] ReasonCommentsChest Painchest tightness started today. Was [facility] hemat[facility] to his back.StatusReasonSpecialtyDiagnoses / ProceduresReferred By ContactReferred To Contact Diagnoses Chest pain Back, MD Lion [address] [place] [address] [facility] StatusReasonSpecialtyDiagnoses / ProceduresReferred By ContactReferred To Contact Diagnoses Coronary artery disease, occlusive Chest pain and abnormal stress test Tunde Pino MD [address] [facility] [address] [place] [address] [facility] ReasonCommentsOtherlt scapular region spontaneous hemotoma while pumpiong gas AnxietyReasonCommentsConsultPD cath placementSpecialtyDiagnoses / Procedures Referred By ContactReferred To ContactGeneral Surgery Diagnoses End stage renal disease (HCC) Gracie Miller MD [address] [place] [address] [facility] Gles[facility] [address] [facility], [address]th [place] [address] Referral IDStatusReasonStart DateExpiration DateVisits RequestedVisits [id number] Review Specialty Services Required/Patient's Best Interest [id number]-baFx cath placementReasonComments Follow-upPD cath insertionReasonOnset DateCommentsMedication Hcjncx6306/21/2024 ReasonCommentsGroin SwellingSpecialtyDiagnoses / ProceduresReferred By Contact Referred To Contact Diagnoses Fluid retention Groin swelling r/o peritoneal leak Referral IDStatusReasonStart DateExpiration DateVisits RequestedVisits [id number] DateCommentsPhase II Cardiac Rehab06/27/2024 SpecialtyDiagnoses / ProceduresReferred By ContactReferred To Contact Diagnoses End stage renal disease (HCC) End stage renal disease (HCC) [N18.6] Procedures MT INTRO CATH DIALYSIS CIRCUIT DX ANGRPH FLUOR S&I MT ARVEN ANAST OPN UPR ARM CEPHALIC VEIN TRPOS MT CRTJ ARVEN FSTL XCP DIR ARVEN ANAST NONAUTOG GRF UPPER EXTREMITY AV FISTULA VS. AV GRAFT CREATION UPPER EXTREMITY AV FISTULA VS. AV GRAFT CREATION Nacho Montiel MD [address] [address] [address] [place] [address] [facility] [address] [place] [address] Referral IDStatusReasonStart DateExpiration DateVisits RequestedVisits [id number] / ProceduresReferred By ContactReferred To Contact Diagnoses Vitamin D deficiency Mixed hyperlipidemia Coronary artery disease involving [place] coronary artery of [place] heart without angina pectoris Benign essential HTN SOB (shortness of breath) Procedures Echo (TTE) complete (PRN contrast/bubble/strain/3D) MT ECHO TTHRC R-T 2D W/WOM-MODE COMPL SPEC&COLR D MT TTE W OR WO FOL WCON,DOPPLER Abdirizak Oro MD [address] [place] [address] Referral IDStatusReasonStart DateExpiration DateVisits RequestedVisits [id number]/6/202411/6/202511 Care Teams (unrecognized sec tion and content) Team MemberRelationshipSpecialtyStart DateEnd Date Back, MD Lion [address] [place] [address] PCP - General06/08/13Team MemberRelationshipSpecialtyStart DateEnd Date Back, MD Lion [address] [place] [address] PCP - General7/Team MemberRelationshipSpecialtyStart DateEnd Date Back, MD Lion [address] [place] [address] PCP - General7/2513Team MemberRelationshipSpecialtyStart DateEnd Date Back, MD Lion [address] [place] [address] PCP - General7/25Team MemberRelationshipSpecialtyStart DateEnd Date Back, MD Lion [address] [place] [address] PCP - General7/Team MemberRelationshipSpecialtyStart DateEnd Date Back, MD Lion [address] [place] [address] PCP - General7/25Team MemberRelationshipSpecialtyStart DateEnd Date Back, MD Lion [address] [place] [address] PCP - General7/2513Team MemberRelationshipSpecialtyStart DateEnd Date Back, MD Lion [address] [place] [address] PCP - General7/2513Team MemberRelationshipSpecialtyStart DateEnd Date Back, MD Lion [address] [id number] PCP - General7/2513Team MemberRelationshipSpecialtyStart DateEnd Date Back, MD Lion [address] [phone] PCP - General7/25Team MemberRelationshipSpecialtyStart DateEnd Date Back, MD Lion [address] [phone] PCP - General7/2513Team MemberRelationshipSpecialtyStart DateEnd Date Back, MD Lion [address] [phone] PCP - General7/2513Team MemberRelationshipSpecialtyStart DateEnd Date Back, MD Lion [address] [phone] PCP - General7/2513Team MemberRelationshipSpecialtyStart DateEnd Date Back, MD Lion [address] [phone] PCP - General7/2513Team MemberRelationshipSpecialtyStart DateEnd Date Back, MD Lion [address] [phone] PCP - General7/2513Team MemberRelationshipSpecialtyStart DateEnd Date Back, MD Lion [address] [phone] PCP - General7/2513Team MemberRelationshipSpecialtyStart DateEnd Date Back, MD Lion [address] [phone] PCP - General7/25/13Team MemberRelationshipSpecialtyStart DateEnd Date Back, MD Lion [address] [phone] PCP - General7/2513Team MemberRelationshipSpecialtyStart DateEnd Date Back, MD Lion [address] [phone] PCP - General06/08/13Team MemberRelationshipSpecialtyStart DateEnd Date Back, MD Lion [address] [facility], [facility] PCP - General06/08/13Team MemberRelationshipSpecialtyStart DateEnd Date Back, MD Lion [address] [facility], [facility] PCP - General06/08/13Team MemberRelationshipSpecialtyStart DateEnd Date Back, MD Lion [address] [facility], [place] [address] PCP - General06/08/13Team MemberRelationshipSpecialtyStart DateEnd Date Back, MD Lion [address] [phone] PCP - GeneralInternal Medicine03/22/24 Gracie Miller MD [address] [place] [address] Referring PhysicianNephrology03/22/24Team MemberRelationshipSpecialtyStart DateEnd Date Back, MD Lion [address] [phone] PCP - GeneralInternal Medicine03/22/24 Gracie Miller MD [address] [place] [address] Referring PhysicianNephrology03/22/24Team MemberRelationshipSpecialtyStart DateEnd Date Back, MD Lion [address] [place] [address] PCP - GeneralInternal Medicine03/22/24 Gracie Miller MD [address] [place] [address] Referring PhysicianNephrology03/22/24Team MemberRelationshipSpecialtyStart DateEnd Date Back, MD Lion [address] [place] [address] PCP - General06/08/13Te MemberRelationshipSpecialtyStart DateEnd Date Back, MD Lion [address] [place] [address] PCP - GeneralInternal Medicine03/22/24 Gracie Miller MD [address] [place] [address] Referring PhysicianNephrology03/22/24Team MemberRelationshipSpecialtyStart DateEnd Date Back, MD Lion [address] [place] [address] PCP - GeneralInternal Medicine03/22/24 Gracie Miller MD [address] [place] [address] Referring PhysicianNephrology03/22/24Team MemberRelationshipSpecialtyStart DateEnd Date Back, MD Lion [address] [place] [address] PCP - General06/08/13Team MemberRelationshipSpecialtyStart DateEnd Date Back, MD Lion [address] [place] [address] PCP - General06/08/13Team MemberRelationshipSpecialtyStart DateEnd Date Back, MD Lion [address] [phone] PCP - GeneralInternal Medicine03/22/24 Gracie Miller MD [address] [place] [address] Referring PhysicianNephrology03/22/24Team MemberRelationshipSpecialtyStart DateEnd Date Back, MD Lion [address] [place], [place] [phone] PCP - GeneralInternal Medicine03/22/24 Gracie Miller MD [address] [place] [address] Referring PhysicianNephrology03/22/24Team MemberRelationshipSpecialtyStart DateEnd Date Back, MD Lion [address] [phone] PCP - GeneralInternal Medicine03/22/24 Gracie Miller MD [address] [place] [address] Referring PhysicianNephrology03/22/24Team MemberRelationshipSpecialtyStart DateEnd Date Back, MD Lion [address] [place] [address] PCP - GeneralInternal Medicine03/22/24 Gracie Miller MD [address] [place] [address] Referring PhysicianNephrology03/22/24Team MemberRelationshipSpecialtyStart DateEnd Date Back, MD Lion [address] [place] [address] PCP - General06/08/13Team MemberRelationshipSpecialtyStart DateEnd Date Back, MD Lion [address] [place] [address] PCP - General06/08/13Team MemberRelationshipSpecialtyStart DateEnd Date Back, MD Lion [address] [place] [address] PCP - General06/08/13Team MemberRelationshipSpecialtyStart DateEnd Date Back, MD Lion [address] [place] [address] PCP - General06/08/13Team MemberRelationshipSpecialtyStart DateEnd Date Back, MD Lion [address] [place] [address] PCP - General06/08/13Team MemberRelationshipSpecialtyStart DateEnd Date Back, MD Lion [address] [place] [address] PCP - General06/08/13Team MemberRelationshipSpecialtyStart DateEnd Date Back, MD Lion [address] [facility], [facility]37 PCP - General7/2513Team MemberRelationshipSpecialtyStart DateEnd Date Back, MD Lion [address] [facility] [place] [address] PCP - General7/2513Team MemberRelationshipSpecialtyStart DateEnd Date Back, MD Lion [address] [facility], [facility]37 PCP - General7/2513Team MemberRelationshipSpecialtyStart DateEnd Date Back, MD Lion [address] [facility], [facility]37 PCP - General7/2513Team MemberRelationshipSpecialtyStart DateEnd Date Back, MD Lion [address] [address] [facility], [facility]37 PCP - General7/2513Team MemberRelationshipSpecialtyStart DateEnd Date Back, MD Lion [address] [facility], [facility]37 PCP - General7/2513Team MemberRelationshipSpecialtyStart DateEnd Date Back, MD Lion [address] [facility], [facility]37 PCP - General7/25/13Team MemberRelationshipSpecialtyStart DateEnd Date Back, MD Lion [address] [facility], [facility]37 PCP - General7/25/13Team MemberRelationshipSpecialtyStart DateEnd Date Back, MD Lion [address] [place] [address] PCP - General06/08/13Team MemberRelationshipSpecialtyStart DateEnd Date Back, MD Lion [address] [place] [address] PCP - General06/08/13Team MemberRelationshipSpecialtyStart DateEnd Date Back, MD Lion [address] [place] [address] PCP - General06/08/13Team MemberRelationshipSpecialtyStart DateEnd Date Back, MD Lion [address] [place] [address] PCP - General06/08/13Team MemberRelationshipSpecialtyStart DateEnd Date Back, MD Lion [address] [place] [address] PCP - General06/08/13Team MemberRelationshipSpecialtyStart DateEnd Date Back, MD Lion [address] [place] [address] PCP - GeneralInternal Medicine03/22/24 Gracie Miller MD [facility] [place] [address] Referring PhysicianNephrology03/22/24Team MemberRelationshipSpecialtyStart DateEnd Date Back, MD Lion [address] [place] [address] PCP - GeneralInternal Medicine03/22/24 Gracie Miller MD [address] [place] [address] Referring PhysicianNephrology03/22/24 (unrecognized sect ion and content) No Status Records FoundNo Status Records FoundNo Status Records FoundNo Status Records FoundNo Status Records FoundNo Status Records Found INFORMATION SOURCE (unrecogn ized section and content) DATE CREATED AUTHOR 12/05/2023 [facility] DATE CREATED AUTHOR AUTHOR'S ORGANIZ ATION 06/14/2024 [facility] DATE CREATED AUTHOR AUTHOR'S ORGANIZ ATION 06/22/2025 [facility] DATE CREATED AUTHOR AUTHOR'S ORGANIZ ATION 08/24/2025 [facility] DATE CREATED AUTHOR AUTHOR'S ORGANIZ ATION 09/01/2025 [facility] DATE CREATED AUTHOR AUTHOR'S ORGANIZ ATION 09/27/2025 [facility] Scheduled Active and Recently Administ ered Medications (unrecognized section and content) Medication Order//06/2024 apixaban (ELIQUIS) tablet 5 mg 5 mg, Oral, 2 times daily, First dose on Wed06/21/24 at 2000, Indication: DVT/PE, How long has patient been on apixaban? Unknown * 2200 (Given - Provider: Isi Longoria RN) * 0934 (Given - Provider: Jennyfer Esteban RN) atorvastatin (LIPITOR) tablet 80 mg 80 mg, Oral, Nightly, First dose on Wed06/15/24 at 2200 * 2140 (Given - Provider: Talia Beckford, ALEJANDRO) * 2201 (Given - Provider: Isi Longoria RN) busPIRone (BUSPAR) tablet 15 mg 15 mg, Oral, Every 8 hours scheduled, First dose on Wed06/15/24 at 2200 * 0554 (Given - Provider: Herbie Mejia RN) * 1343 (Given - Provider: Guy Raphael RN) * 2139 (Given - Provider: Talia Beckford RN) * 0612 (Given - Provider: Talia Beckford RN) * 1400 (Not Given - Provider: Sherie Erickson RN - Reason: Other - Comment: drowsy just back from cathlab) * 220 (Given - Provider: Isi Longoria, ALEJANDRO) * 0631 (Given - Provider: Isi Longoria RN) clopidogreL (PLAVIX) tablet 75 mg 75 mg, Oral, Every morning, First dose (after last reorder) on Wed06/16/24 at 0900 * 1022 (Given - Provider: Guy Raphael RN) * 0955 (Given - Provider: Guy Raphael RN) * 0935 (Given - Provider: Jennyfer Esteban RN) DULoxetine (CYMBALTA) DR capsule 60 mg 60 mg, Oral, Every morning, First dose on Wed06/16/24 at 0900, DO NOT CRUSH OR CHEW. * 1022 (Given - Provider: Guy Raphael RN) * 0955 (Given - Provider: Guy Raphael RN) * 0935 (Given - Provider: Jennyfer Esteban RN) ergocalciferol capsule 50,000 Units 50,000 Units, Oral, Weekly, First dose on Wed06/19/24 at 0900 furosemide (LASIX) injection 60 mg 60 mg, Intravenous, Every 12 hours scheduled, First dose on Wed06/16/24 at 1800, Administer IV push at 20 mg per minute (doses higher than 100 mg require IVPB) * 0553 (Given - Provider: Herbie Mejia RN) * 1803 (Given - Provider: Guy Raphael RN) * 0600 (Not Given - Provider: Guy Raphael RN - Reason: Patient/family refused) * 2000 (Not Given - Provider: Isi Longoria RN - Reason: Order parameters not met - Comment: hypotensive) * 0631 (Given - Provider: Isi Longoria RN) hydrALAZINE (APRESOLINE) tablet 100 mg 100 mg, Oral, 2 times daily, First dose on Wed06/15/24 at 2200 * 1023 (Given - Provider: Guy Raphael RN) * 2139 (Given - Provider: Talia Beckford RN) * 0955 (Given - Provider: Guy Raphael RN) * 2100 (Not Given - Provider: Isi Longoria RN - Reason: Order parameters not met - Comment: hypotensive) * 0935 (Given - Provider: Jennyfer Esteban RN) metoprolol succinate (TOPROL-XL) 24 hr tablet 100 mg 100 mg, Oral, 2 times daily, First dose on Wed06/19/24 at 2100, DO NOT CRUSH OR CHEW. * 1023 (Given - Provider: Guy Raphael RN) * 2139 (Given - Provider: Talia Beckford RN) * 0955 (Given - Provider: Guy Raphael RN) * 2100 (Not Given - Provider: Isi Longoria RN - Reason: Order parameters not met - Comment: re-timed) * 2200 (Not Given - Provider: Isi Longoria RN - Reason: Order parameters not met) * 0934 (Given - Provider: Jennyfer Esteban RN) pantoprazole (PROTONIX) EC tablet 40 mg 40 mg, Oral, Daily, First dose on Wed06/16/24 at 0900, DO NOT CRUSH OR CHEW. * 1023 (Given - Provider: Guy Raphael RN) * 0955 (Given - Provider: Guy Raphael RN) * 0935 (Given - Provider: Jennyfer Esteban RN) sacubitriL-valsartan (ENTRESTO) 24-26 mg per tablet 1 tablet 1 tablet, Oral, 2 times daily, First dose on Wed06/19/24 at 1530 * 1250 (Given - Provider: Guy Raphael RN) * 2325 (Given - Provider: Talia Beckford RN) * 1100 (Hold - Provider: Sherie Erickson RN - Reason: Other - Comment: held for HD treatment) * 0026 (Given - Provider: Isi Longoria RN) * 1100 (Not Given - Provider: Radha Acevedo RN - Reason: Other - Comment: Pt being DC) sodium chloride (PF) (NS) flush 10-20 mL(Linked Group 1) 10-20 mL, Intravenous, Once in dialysis, On Wed06/21/24 at 0800, For 1 dose, Flush each TEGO caps oncath ports with 10 mL normal saline post-treatment (dwells). Document total volume used for all TEGO caps. * 0800 (Due) Medication Order//06/2024 heparin (porcine) 25,000 unit/250 mL(100 unit/mL) in D5W infusion (CANCELED) 0-70 Units/kg/hr 139.7 kg (0-97.79 mL/hr, rounded to 0-97.8 mL/hr), Intravenous, Continuous, Starting on Wed06/20/24 at 1015, Choose one of the following protocols: Cardiac / Arterial, Bolus options: Protocol WITHOUT initial bolus only, For Downtime Calculator, use: Heparin Infusion Standard * 1030 (New Bag - Provider: Guy Raphael RN) * 1031 (Paused - Provider: Talia Beckford RN) * 1031 (Restarted - Provider: Talia Beckford RN) * 1059 (Paused - Provider: Talia Beckford RN) * 1100 (Restarted - Provider: Talia Beckford RN) * 1102 (Paused - Provider: Talia Beckford RN) * 1106 (Restarted - Provider: Talia Beckford RN) * 1110 (Paused - Provider: Talia Beckford RN) * 1110 (Restarted - Provider: Talia Beckford RN) * 1151 (Paused - Provider: Talia Beckford RN) * 1152 (Restarted - Provider: Talia Beckford RN) * 1202 (Paused - Provider: Talia Beckford RN) * 1202 (Restarted - Provider: Talia Beckford RN) * 1219 (Paused - Provider: Talia Beckford RN) * 1219 (Restarted - Provider: Talia Beckford RN) * 1226 (Paused - Provider: Talia Beckford RN) * 1226 (Restarted - Provider: Talia Beckford RN) * 1248 (Paused - Provider: Talia Beckford RN) * 1248 (Restarted - Provider: Talia Beckford RN) * 1259 (Paused - Provider: Talia Beckford RN) * 1259 (Restarted - Provider: Talia Beckford RN) * 1308 (Paused - Provider: Talia Beckford, ALEJANDRO) * 1308 (Restarted - Provider: Talia Beckford, RN) * 1312 (Paused - Provider: Talia Beckford RN) * 1312 (Restarted - Provider: Talia Beckford RN) * 1313 (Paused - Provider: Talia Beckford RN) * 1313 (Restarted - Provider: Talia Beckford RN) * 1324 (Paused - Provider: Talia Beckford RN) * 1324 (Restarted - Provider: Talia Beckford RN) * 1342 (Paused - Provider: Talia Beckford RN) * 1342 (Restarted - Provider: Talia Beckford RN) * 1344 (Paused - Provider: Talia Beckford RN) * 1345 (Restarted - Provider: Talia Beckford RN) * 1351 (Paused - Provider: Talia Beckford RN) * 1351 (Restarted - Provider: Talia Beckford RN) * 1352 (Paused - Provider: Talia Beckford RN) * 1352 (Restarted - Provider: Talia Beckford RN) * 1702 (Rate/Dose Change - Provider: Guy Raphael RN) * 1702 (Rate/Dose Verify - Provider: Talia Beckford RN) * 1706 (Rate/Dose Verify - Provider: Talia Beckford, ALEJANDRO) * 1759 (Paused - Provider: Talia Beckford RN) * 1759 (Restarted - Provider: Talia Beckford RN) * 1805 (Paused - Provider: Talia Beckford, ALEJANDRO) * 1806 (Restarted - Provider: Talia Beckford RN) * 1815 (Paused - Provider: Talia Beckford RN) * 1816 (Restarted - Provider: Talia Beckford RN) * 1910 (Paused - Provider: Talia Beckford RN) * 1910 (Restarted - Provider: Talia Beckford RN) * 1930 (Paused - Provider: Talia Beckford RN) * 1930 (Restarted - Provider: Talia Beckford RN) * 1931 (Paused - Provider: Talia Beckford RN) * 1931 (Restarted - Provider: Talia Beckford RN) * 1946 (Paused - Provider: Talia Beckford RN) * 1946 (Restarted - Provider: Talia Beckford RN) * 2003 (Rate/Dose Verify - Provider: Talia Beckford RN) * 1 (Rate/Dose Change - Provider: Talia Beckford RN) * 0124 (New Bag - Provider: Talia Beckford RN) * 0735 (Rate/Dose Change - Provider: Talia Beckford RN) subcutaneous insulin pump Misc Miscellaneous, Continuous, Starting on Wed06/21/24 at 1045, Select Insulin Product in Pump: lispro (HUMALOG), Specify Number of Different Basal Rates per 24hr: 1, Starting Time: 6:01 PM, Basal Rate (units / hr): 6.5, Prandial Bolus Method: Specific Doses (X units of insulin), Breakfast (units): 15, Lunch (units): 20, Dinner (units): 20 * 1045 (Canceled Entry - Provider: Grazyna Anders RN) Medication Order//06/2024 acetaminophen (TYLENOL) tablet 650 mg 650 mg, Oral, Every 4 hours PRN, mild pain, fever 100.4 F or greater, headaches, Starting on Wed06/15/24 at 1715 aluminum-magnesium hydroxide-simethicone (MAALOX PLUS) 200-200-20 mg/5 mL suspension 30 mL 30 mL, Oral, Every 4 hours PRN, indigestion, Starting on Wed06/15/24 at 1715 clopidogreL (PLAVIX) tablet (CANCELED) As needed, Starting on Wed06/21/24 at 1256, Intra-Procedure * 1256 (Given - Provider: Zee Valdes RN) fentaNYL (SUBLIMAZE) injection (CANCELED) As needed, Starting on Wed06/21/24 at 1157, Intra-Procedure * 1157 (Given - Provider: Zee Valdes RN) * 1231 (Given - Provider: Zee Valdes RN) * 1313 (Given - Provider: Zee Valdes RN) * 1338 (Given - Provider: Zee Valdes RN) heparin (porcine) injection (CANCELED) As needed, Starting on Wed06/21/24 at 1202, Intra-Procedure * 1202 (Given - Provider: Zee Valdes RN) * 1205 (Given - Provider: Zee Valdes RN) * 1248 (Given - Provider: Zee Valdes RN) * 1320 (Given - Provider: Zee Valdes RN) heparin bolus from bag 0-5,000 Units (CANCELED) 0-5,000 Units, Intravenous, Continuous PRN, IF the MAR calculator for heparin infusion specifies a bolus from bag is to be administered, Starting on Wed06/20/24 at 0926, Choose one of the following protocols: Cardiac / Arterial, Bolus options: Protocol WITHOUT initial bolus only, For Downtime Calculator, use: Heparin Infusion Standard * 1702 (Bolus from Bag - Provider: Guy Raphael RN) * 0003 (Bolus from Bag - Provider: Talia Beckford RN) iopamidoL (ISOVUE-370) 370 mg iodine /mL (76 %) injection (CANCELED) As needed, Starting on Wed06/21/24 at 1349, Intra-Procedure * 1349 (Given - Provider: Melba Singh MD) lidocaine 1% (PF) (XYLOCAINE-MPF) 10 mg/mL (1 %) injection (CANCELED) As needed, Starting on Wed06/21/24 at 1200, Intra-Procedure * 1200 (Given - Provider: Melba Singh MD) midazolam (VERSED) injection (CANCELED) As needed, Starting on Wed06/21/24 at 1156, Intra-Procedure * 1156 (Given - Provider: Zee Valdes RN) * 1232 (Given - Provider: Zee Valdes RN) * 1313 (Given - Provider: Zee Valdes RN) * 1338 (Given - Provider: Zee Valdes RN) nitroglycerin (TRIDIL) 50 mcg/ml 10 mL syringe (CANCELED) As needed, Starting on Wed06/21/24 at 1201, Intra-Procedure * 1201 (Given - Provider: Melba Singh MD) ondansetron (ZOFRAN) injection 4 mg(Linked Group 2) 4 mg, Intravenous, Every 6 hours PRN, nausea, vomiting, Starting on Ladonna 06/15/24 at 1715, Use oral route first, if tolerated. ondansetron (ZOFRAN-ODT) disintegrating tablet 4 mg(Linked Group 2) 4 mg, Oral, Every 6 hours PRN, nausea, vomiting, Starting on [place]onna 06/15/24 at 1715, Use oral route first, if tolerated. Formulation requires tablet remain in sealed package until immediately prior to dose being administered. senna (SENOKOT) tablet 8.6 mg 8.6 mg (1 tablet), Oral, 2 times daily PRN, constipation, Starting on Ladonna 06/15/24 at 1715 sodium chloride 0.9% (NS) bolus 200 mL 200 mL, Intravenous, As needed, hypotension management during hemodialysis, Starting on Wed06/21/24 at 0702, For 1 dose sodium chloride 0.9% (NS) () 1,000-3,000 mL, Hemodialysis, As needed, other, Priming solution for HD system, Starting on Wed06/21/24 at 0702, For 12 hours, Dialysis Hold * 1500 (New Bag - Provider: Heather Granger RN) verapamiL (ISOPTIN) injection (CANCELED) As needed, Starting on Wed06/21/24 at 1201, Intra-Procedure * 1201 (Given - Provider: Melba Singh MD) Order Group 1: Nursing apply and maintain TEGO caps for hemodialysis (CANCELED) Routine, Weekly, First occurrence on Wed06/21/24 at 0703, For 12 hours, Specify: apply and maintain TEGO caps for hemodialysis, If patient is admitted with hemodialysis ports fitted with TEGO caps, replace the caps. Replace TEGO caps every 7 days thereafter while in the hospital. Flush TEGO caps with 10 mL Normal Saline after hemodialysis. And sodium chloride (PF) (NS) flush 10-20 mLJump to med 10-20 mL, Intravenous, Once in dialysis, On Wed06/21/24 at 0800, For 1 dose, Flush each TEGO caps on cath ports with 10 mL normal saline post-treatment (dwells). Document total volume used for all TEGO caps. Group 2: ondansetron (ZOFRAN-ODT) disintegrating tablet 4 mgJump to med 4 mg, Oral, Every 6 hours PRN, nausea, vomiting, Starting on Wed06/15/24 at 1715, Use oral route first, if tolerated. Formulation requires tablet remain in sealed package until immediately prior to dose being administered. Or ondansetron (ZOFRAN) injection 4 mgJump to med 4 mg, Intravenous, Every 6 hours PRN, nausea, vomiting, Starting on Wed06/15/24 at 1715, Use oral route first, if tolerated. Medication Order08/27//// heparin (porcine) injection 1,800 Units (COMPLETED) 1,800 Units, IntraCATHeter, ONCE, 1 dose, On Wed08/29/24 at 1045 * 1146 (Given - Provider: Avani Herman RN) sodium chloride flush 0.9 % injection 5-40 mL 5-40 mL, IntraVENous, EVERY 12 HOURS SCHEDULED (2 times per day), First dose on Wed08/29/24 at 1030, Until Discontinued, For Line Patency: Peripheral IV = 5 mL; Midline or Central Line = 10 mL/lumen. If following IV push medication, administer flush at same rate as the IV push. Flush volume is determined by type of infusion therapy being given. For non-viscous solutions use: Peripheral IV = 5 mLMidline or Central Line = 10 mL/lumen For viscous solutions (i.e. blood components, parenteral nutrition, contrast media, or after obtaining blood sample) use: Peripheral IV = 10 mL Midline or Central Line = 20 mL/lumen, Pre-op (day of surgery) * 1030 (Due) * 2100 (Due) sodium chloride flush 0.9 % injection 5-40 mL 5-40 mL, IntraVENous, EVERY 12 HOURS SCHEDULED (2 times per day), First dose on Wed08/29/24 at 1030, Until Discontinued, For Line Patency: Peripheral IV = 5 mL; Midline or Central Line = 10 mL/lumen. If following IV push medication, administer flush at same rate as the IV push. Flush volume is determined by type of infusion therapy being given. For non-viscous solutions use: Peripheral IV = 5 mLMidline or Central Line = 10 mL/lumen For viscous solutions (i.e. blood components, parenteral nutrition, contrast media, or after obtaining blood sample) use: Peripheral IV = 10 mL Midline or Central Line = 20 mL/lumen, PACU only * 1030 (Due) * 2100 (Due) Medication Order// 0.9 % sodium chloride infusion IntraVENous, at 75 mL/hr, CONTINUOUS, Starting on Wed08/29/24 at 0745, Pre-Procedure(Cath) * 0755 (New Bag - Provider: Avani Herman RN) * 0806 (Paused - Provider: WEST Castano CRNA - Comment: Switch to gravity) * 0807 (Restarted - Provider: WEST Castano CRNA) * 0956 (Anesthesia Volume Adjustment - Provider: WEST Castano CRNA) Medication Order/ 0.9 % sodium chloride infusion IntraVENous, at 5-250 mL/hr, PRN, if patient receiving piggyback infusions and maintenance fluids are not ordered, Starting on Wed08/29/24 at 1009, For piggyback infusion, administer at same rate aspiggyback for a total of 25 mL. Enter 25 mL into dose field and piggyback rate into rate field of order. If piggyback is infusing at a rate less than 100 mL/hr, enter 25 mL into dose field and 100 mL/hr into rate field of order., Pre-op (day of surgery) 0.9 % sodium chloride infusion IntraVENous, at 5-250 mL/hr, PRN, if patient receiving piggyback infusions and maintenance fluids are not ordered, Starting on Wed08/29/24 at 1009, For piggyback infusion, administer at same rate aspiggyback for a total of 25 mL. Enter 25 mL into dose field and piggyback rate into rate field of order. If piggyback is infusing at a rate less than 100 mL/hr, enter 25 mL into dose field and 100 mL/hr into rate field of order., PACU only fentaNYL (SUBLIMAZE) injection 25 mcg 25 mcg, IntraVENous, EVERY 5 MIN PRN, 2 doses, Starting on Wed08/29/24 at 1009, Until Discontinued, Pain Moderate (4-6), For Phase I. If Phase II oral narcotics have been administered in the last 60minutes, do not administer IV narcotics unless specifically approved by provider., PACU only fentaNYL (SUBLIMAZE) injection 50 mcg 50 mcg, IntraVENous, EVERY 5 MIN PRN, 2 doses, Starting on Wed08/29/24 at 1009, Until Discontinued, Pain Severe (7-10), For Phase I. If Phase II oral narcotics have been administered in the last 60 minutes, do not administer IV narcotics unless specifically approved by provider., PACU only gelatin adsorbable (GELFOAM) sponge (CANCELED) PRN, Starting on Wed08/29/24 at 0749, Intra-op * 0749 (Given - Provider: Nacho Montiel MD - Comment: MEDICATION DOSE AND EXPIRATION VERIFIED WITH SCRUB/NURSE AND PLACED ON STERILE FIELD) heparin (porcine) injection (CANCELED) PRN, Starting on Wed08/29/24 at 0750, Until Wed08/29/24 at 0957, Intra-op * 0750 (Canceled Entry - Provider: Nacho Montiel MD - Comment: MEDICATION DOSE AND EXPIRATION VERIFIED WITH SCRUB/NURSE AND PLACED ON STERILE FIELD) * 0915 (Given - Provider: Kyung Herman APRN - NUTRITION PARTNER) lidocaine PF 1 % injection (CANCELED) PRN, Starting on Wed08/29/24 at 0749, Until Wed08/29/24 at 0957, Intra-op * 0749 (Given - Provider: Nacho Montiel MD - Comment: MEDICATION DOSE AND EXPIRATION VERIFIED WITH SCRUB/NURSE AND PLACED ON STERILE FIELD) midazolam PF (VERSED) injection 1 mg 1 mg, IntraVENous, EVERY 10 MIN PRN, 2 doses, Starting on Wed08/29/24 at 1009, Until Discontinued,Anxiety, Anxiety pre-op, Repeat once after 10 minutes for stated anxiety, Pre-op (day of surgery) naloxone 0.4 mg in 10 mL sodium chloride syringe IntraVENous, PRN, Opioid Reversal, Starting on Wed08/29/24 at 1009, PRN if respiratory rate is less than 6/min and patient is difficult to arouse then notify physician STAT. Mix 9 mL of sodium chloride 0.9% with 0.4 mg (1 mL) of naloxone (NARCAN) in 10 mL syringe. (Note: dilution is 0.04 mg/mL) Give 0.08 mg (2 mL of special dilution), slow IV push, repeat up to 0.4 mg (10 mL) or until patient isresponsive to physical stimulation and respiratory rate is equal to or greater than 6 breaths/min. Continue to observe, if no response within 3 minutes of administration of 0.4 mg (10 mL) total, repeat dose (0.4 mg as administered previously). Concentration 0.04 mg/mL, PACU only ondansetron (ZOFRAN) injection 4 mg 4 mg, IntraVENous, ONCE PRN, 1 dose, Starting on Wed08/29/24 at 1009, Until Wed08/30/24 at 1009, Nausea, PACU only sod chloride IRR soln 0.9 % 500 mL with heparin (porcine) 5,000 Units (CANCELED) PRN, Starting on Wed08/29/24 at 0802, Intra-op * 0802 (Given - Provider: Nacho Montiel MD - Comment: MEDICATION DOSE AND EXPIRATION VERIFIED WITH SCRUB/NURSE AND PLACED ON STERILE FIELD) sod chloride IRR soln 0.9 % irrigation (COMPLETED) CONTINUOUS PRN, Starting on Wed08/29/24 at 0748, Intra-op * 0748 (New Bag - Provider: Nacho Montiel MD - Comment: MEDICATION DOSE AND EXPIRATION VERIFIEDWITH SCRUB/NURSE AND PLACED ON STERILE FIELD) sodium chloride flush 0.9 % injection 5-40 mL 5-40 mL, IntraVENous, PRN, Starting on Wed08/29/24 at 1009, Until Discontinued, Line Care, After every IV line use, For Line Patency: Peripheral IV = 5 mL; Midline or Central Line = 10 mL/lumen. If following IV push medication, administer flush at same rate as the IV push. Flush volume is determined by type of infusion therapy being given. For non-viscous solutions use: Peripheral IV = 5 mL Midline or Central Line = 10 mL/lumen For viscous solutions (i.e. blood components, parenteral nutrition, contrast media, or after obtaining blood sample) use: Peripheral IV = 10 mL Midline or Central Line = 20 mL/lumen, Pre-op (day of surgery) sodium chloride flush 0.9 % injection 5-40 mL 5-40 mL, IntraVENous, PRN, Starting on Wed08/29/24 at 1009, Until Discontinued, Line Care, After every IV line use, For Line Patency: Peripheral IV = 5 mL; Midline or Central Line = 10 mL/lumen. If following IV push medication, administer flush at same rate as the IV push. Flush volume is determined by type of infusion therapy being given. For non-viscous solutions use: Peripheral IV = 5 mL Midline or Central Line = 10 mL/lumen For viscous solutions (i.e. blood components, parenteral nutrition, contrast media, or after obtaining blood sample) use: Peripheral IV = 10 mL Midline or Central Line = 20 mL/lumen, PACU only thrombin external solution 5000 units (CANCELED) PRN, Starting on Wed08/29/24 at 0750, Intra-op * 0750 (Given - Provider: Nacho Montiel MD - Comment: MEDICATION DOSE AND EXPIRATION VERIFIED WITH SCRUB/NURSE AND PLACED ON STERILE FIELD) Medication Order// dexmedeTOMIDine HCl in NaCl (PRECEDEX) 400 MCG/100ML premix infusion 1 dose, Starting on Wed08/29/24 at 0730, Until Wed08/29/24 at 1944, Kyung Herman: cabinet override, Kyung Herman: cabinet override * 0745 (Due) propofol 1000 MG/100ML infusion 1 dose, Starting on Wed08/29/24 at 0730, Until Wed08/29/24 at 1944, Kyung Herman: cabinet override Do not administer through the same I.V. catheter with blood or plasma. Tubing and any unused portions of propofol vials should be discarded after 12 hours., Kyung Herman: cabinet override * 0745 (Due) Medication Order//12/2024 apixaban (ELIQUIS) tablet 5 mg 5 mg, Oral, 2 TIMES DAILY, First dose on Wed02/14/25 at 0900, Until Discontinued, Indication of Use:Treatment-DVT/PE, ANTICOAGULANT * 0830 (Given - Provider: Mony Mcclelland RN) * 2100 (Due) aspirin EC tablet 81 mg 81 mg, Oral, DAILY, 14 doses, First dose on Wed02/14/25 at 0900, Last dose on Wed02/27/25 at 0900, Do not crush or break. * 0829 (Given - Provider: Mony Mcclelland RN) atorvastatin (LIPITOR) tablet 80 mg 80 mg, Oral, NIGHTLY, First dose on Wed02/09/25 at 2100, Until Discontinued * 2201 (Given - Provider: Jermaine Nesbitt RN) * 2038 (Given - Provider: Marah Valenzuela RN) * 2100 (Due) busPIRone (BUSPAR) tablet 15 mg 15 mg, Oral, 3 TIMES DAILY, First dose on Wed02/09/25 at 2100, Until Discontinued, This 15 mg tablet can be split into thirds (5 mg) or halves (7.5 mg) based on the ordered dose. * 0940 (Given - Provider: Jennifer Duffy RN) * 1350 (Not Given - Provider: Jennifer Duffy RN - Reason: Transfer to a Procedural area) * 2201 (Given - Provider: Jermaine Nesbitt RN) * 0831 (Given - Provider: Lili Amaro, ALEJANDRO) * 144 (Held - Provider: Lili Amaro, ALEJANDRO - Reason: Transfer to a Procedural area) * 1933 (Given - Provider: Marah Valenzuela RN) * 0825 (Given - Provider: Mony Mcclelland RN) * 144 (Given - Provider: Mony Mcclelland RN) * 2100 (Due) ceFAZolin (ANCEF) 1,000 mg in sterile water 10 mL IV syringe 1,000 mg, IntraVENous, EVERY 24 HOURS, First dose on 02/12/25 at 1900, For 3 days, Administer over 5 mins. Reconstitute 1 g vial with 10 mL Sterile Water. Withdraw entire contents. * 220 (Given - Provider: Jermaine Nesbitt RN) * 214 (Given - Provider: Marah Valenzuela RN - Comment: ongoing blood transfusion) * 1900 (Due) clopidogrel (PLAVIX) tablet 600 mg (COMPLETED) 600 mg, Oral, ONCE, 1 dose, On Wed02/14/25 at 1315 * 1351 (Given - Provider: Mony Mcclelland RN) clopidogrel (PLAVIX) tablet 75 mg (CANCELED) 75 mg, Oral, DAILY, First dose on Wed02/09/25 at 1930, Until Discontinued, On hold since Wed02/13/2025 at 0711 until manually unheld * 0943 (Given - Provider: Jennifer Duffy RN) * 0711 (Held by provider - Provider: WEST Black NP - Reason: Other - Comment: Unti discission made regarding Bypass) * 0900 (Automatically Held - Provider: WEST Black NP) * 1727 (Unheld by provider - Provider: Margi Díaz MD) clopidogrel (PLAVIX) tablet 75 mg 75 mg, Oral, DAILY, First dose on Ladonna 02/15/25 at 0900, Until Discontinued dianeal lo-nader 2.5% 2,500 mL 2,500 mL, IntraPERitoneal, 4 TIMES DAILY, First dose (after last modification) on 02/10/25 at 1700, 30 minutes inflow Dwell 3 hours Out flow 30 minutes 4 exchanges during daytime hours, leave dry overnight. * 0821 (Held - Provider: Jennifer Duffy RN - Reason: Pt NPO - Comment: pt is having a heart cath this am, prefers to not be full while having procedure this am , notified) * 1440 (New Bag - Provider: Jennifer Duffy RN - Comment: just arrived from heart cath) * 1733 (Held - Provider: Jennifer Duffy RN - Reason: Other - Comment: HOLD UNTIL NEW EXTENSION SETIS PLACED PER AUNG MONROY) * 2310 (New Bag - Provider: Jermaine Nesbitt RN) * 1000 (New Bag - Provider: Lili Amaro, RN) * 1258 (Held - Provider: Lili Amaro RN - Reason: Transfer to a Procedural area - Comment: Per Nephro- Do not give peritoneal dose send patient empty to laboratory engineer.) * 1850 (Not Given - Provider: Valeria Cervantes RN - Reason: Other - Comment: unable to give d/t patient new admit) * 2021 (New Bag - Provider: Marah Valenzuela RN) * 0027 (Canceled Entry - Provider: Marah Valenzuela RN - Comment: Last dialysis given at 2100) * 0901 (New Bag - Provider: Mony Mcclelland, ALEJANDRO) * 1302 (New Bag - Provider: Mony Mcclelland, ALEJANDRO) * 1703 (New Bag - Provider: Mony Mcclelland, ALEJANDRO) * 2100 (Due) dianeal lo-nader 2.5% 2,500 mL (COMPLETED) 2,500 mL, IntraPERitoneal, Once, On Wed02/13/25 at 2000, For 1 dose, (One-time order for nurse to give, pt missed 1700 dose, was off the floor) 30 minutes inflow Dwell 3 hours Out flow 30 minutes 4 exchanges during daytime hours, leave dry overnight. * 0027 (New Bag - Provider: Marah Valenzuela RN - Comment: Last dialysis given at 2100H) DULoxetine (CYMBALTA) extended release capsule 60 mg 60 mg, Oral, DAILY, First dose on Wed02/13/25 at 1915, Until Discontinued, Do not crush or break. May add contents of capsule to apple juice or apple sauce, but not chocolate. * 1934 (Given - Provider: Marah Valenzuela RN) * 0824 (Given - Provider: Mony Mcclelland RN) furosemide (LASIX) tablet 80 mg 80 mg, Oral, 2 TIMES DAILY, First dose on Wed02/09/25 at 2100, Until Discontinued * 0917 (Held - Provider: Jennifer Duffy RN - Reason: Pt NPO) * 220 (Given - Provider: Jermaine Nesbitt RN) * 0830 (Given - Provider: Lili Amaro, RN) * 2014 (Given - Provider: Marah Valenzuela, ALEJANDRO) * 0824 (Given - Provider: Mony Mcclelland, ALEJANDRO) * 2099 (Due) hydrALAZINE (APRESOLINE) tablet 25 mg 25 mg, Oral, 2 TIMES DAILY, First dose (after last modification) on Wed02/11/25 at 2100, Until Discontinued, Hold for sbp < 110 * 0918 (Held - Provider: Jennifer Duffy RN - Reason: Pt NPO) * 220 (Given - Provider: Jemraine Nesbitt, RN) * 0831 (Given - Provider: Lili Amaro, ALEJANDRO) * 2014 (Given - Provider: Marah Valenzuela, ALEJANDRO) * 1149 (Given - Provider: Mony Mcclelland RN - Comment: bp on the soft side because of other meds) * 2099 (Due) insulin glargine (LANTUS) injection vial 45 Units 45 Units, SubCUTAneous, DAILY, First dose (after last modification) on Wed02/13/25 at 2315, Until Discontinued * 2335 (Given - Provider: Marah Valenzuela, ALEJANDRO) * 0921 (Given - Provider: Mony Mcclelland, ALEJANDRO) insulin lispro (HUMALOG,ADMELOG) injection vial 0-16 Units 0-16 Units, SubCUTAneous, 4 TIMES DAILY BEFORE MEALS & NIGHTLY, First dose on Wed02/11/25 at 1100, Until Discontinued, High Dose Corrective Algorithm Glucose: Dose: 70-179 No Insulin 180-249 4 Units 250-299 8 Units 300-349 12 Units Over 349 16 Units and notify physician Administer as soon as possible within 60 minutes of last blood glucose check * 0822 (Not Given - Provider: Jennifer Duffy RN - Reason: Pt NPO) * 1235 (Not Given - Provider: Jennifer Duffy RN - Reason: Pt NPO) * 1735 (Not Given - Provider: Jennifer Duffy RN - Reason: Pt NPO) * 2204 (Given - Provider: Jermaine Nesbitt, RN) * 0835 (Given - Provider: Lili Amaro, ALEJANDRO) * 1246 (Given - Provider: Lili Amaro, ALEJANDRO) * 1737 (Given - Provider: Valeria Cervantes RN - Comment: BG 211) * 1958 (Given - Provider: Marah Valenzuela, ALEJANDRO) * 0615 (Given - Provider: Marah Valenzuela, ALEJANDRO) * 1258 (Given - Provider: Mony Mcclelland, ALEJANDRO) * 1746 (Given - Provider: Mony Mcclelland, ALEJANDRO) * 2100 (Due) insulin lispro (HUMALOG,ADMELOG) injection vial 15 Units (COMPLETED) 15 Units, SubCUTAneous, ONCE, 1 dose, On Wed02/13/25 at 2315 * 2332 (Given - Provider: Marah Valenzuela, ALEJANDRO) metoprolol succinate (TOPROL XL) extended release tablet 100 mg 100 mg, Oral, 2 times daily, First dose on Wed02/09/25 at 2100, Until Discontinued, Do not crush orchew. * 0919 (Held - Provider: Jennifer Duffy RN - Reason: Pt NPO) * 220 (Given - Provider: Jermaine Nesbitt RN) * 0830 (Given - Provider: Lili Amaro RN) * 212 (Given - Provider: Marah Valenzuela, ALEJANDRO) * 1002 (Given - Provider: Mony Mcclelland, ALEJANDRO) * 2100 (Due) pantoprazole (PROTONIX) tablet 40 mg 40 mg, Oral, 2 times daily, First dose on Wed02/09/25 at 2100, Until Discontinued, Do not crush or break. * 0944 (Given - Provider: Jennifer Duffy RN) * 2202 (Given - Provider: Jermaine Nesbitt, ALEJANDRO) * 0831 (Given - Provider: Lili Amaro, ALEJANDRO) * 203 (Given - Provider: Marah Valenzuela, ALEJANDRO) * 0824 (Given - Provider: Mony Mcclelland, ALEJANDRO) * 2100 (Due) sodium bicarbonate tablet 650 mg 650 mg, Oral, 2 TIMES DAILY, First dose on Wed02/11/25 at 2100, Until Discontinued * 0944 (Given - Provider: Jennifer Duffy RN) * 2214 (Given - Provider: Jermaine Nesbitt RN) * 0830 (Given - Provider: Lili Amaro RN) * 203 (Given - Provider: Marah Valenzuela, ALEJANDRO) * 0824 (Given - Provider: Mony Mcclelland, ALEJANDRO) * 2100 (Due) sodium chloride flush 0.9 % injection 5-40 mL 5-40 mL, IntraVENous, EVERY 12 HOURS SCHEDULED (2 times per day), First dose on Wed02/09/25 at 2100, Until Discontinued, For Line Patency: Peripheral IV = 5 mL; Midline or Central Line = 10 mL/lumen.If following IV push medication, administer flush at same rate as the IV push. Flush volume is determined by type of infusion therapy being given. For non-viscous solutions use: Peripheral IV = 5 mL Midline or Central Line = 10 mL/lumen For viscous solutions (i.e. blood components, parenteral nutrition, contrast media, or after obtaining blood sample) use: Peripheral IV = 10 mL Midline or CentralLine = 20 mL/lumen * 0823 (Not Given - Provider: Jennifer Duffy RN - Reason: IV Fluid Infusing) * 2203 (Given - Provider: Jermaine Nesbitt RN) * 0831 (Not Given - Provider: Lili Amaro RN - Reason: IV Fluid Infusing) * 2034 (Not Given - Provider: Marah Valenzuela RN - Reason: IV Fluid Infusing) * 0828 (Given - Provider: Mony Mcclelland, ALEJANDRO) * 2100 (Due) sodium chloride flush 0.9 % injection 5-40 mL 5-40 mL, IntraVENous, EVERY 12 HOURS SCHEDULED (2 times per day), First dose on Wed02/13/25 at 2100,Until Discontinued, For Line Patency: Peripheral IV = 5 mL; Midline or Central Line = 10 mL/lumen. If following IV push medication, administer flush at same rate as the IV push. Flush volume is determined by type of infusion therapy being given. For non-viscous solutions use: Peripheral IV = 5 mL Midline or Central Line = 10 mL/lumen For viscous solutions (i.e. blood components, parenteral nutrition, contrast media, or after obtaining blood sample) use: Peripheral IV = 10 mL Midline or Central Line = 20 mL/lumen, Recovery(Cath) * 2034 (Not Given - Provider: Marah Valenzuela RN - Reason: IV Fluid Infusing) * 0829 (Given - Provider: Mony Mcclelland RN) * 2100 (Due) ticagrelor (BRILINTA) tablet 90 mg (CANCELED) 90 mg, Oral, 2 TIMES DAILY, First dose on Wed02/13/25 at 2100, Until Discontinued, ANTIPLATELET! * 2038 (Given - Provider: Marah Valenzuela RN) * 115 (Not Given - Provider: Mony Mcclelland RN - Reason: Patient/family refused - Comment: Dr Stephen aware. plan to give efficent) Medication Order//12/2024 heparin 25,000 units in dextrose 5% 250 mL (premix) infusion (CANCELED) 5-30 Units/kg/hr 140 kg (7-42 mL/hr), IntraVENous, CONTINUOUS, Starting on Wed02/09/25 at 2330, Until Wed02/13/25 at 0033, Heparin Weight-Based Infusion (CAD/STEMI/NSTEMI/UA/AFIB) Patient weight: 140 kg Initial Infusion rate: 7 Units/kg/hr [Dose adjusted to reflect maximum initial infusion rate of 1000 Units/hr] (If an initial bolus is ordered, give the bolus prior to the initiation of the infusion) Hang infusion immediately after drawing initial labs. Do NOT use ANY aPTT drawn prior to initiation of infusion for titration. Check aPTT 6 hours after initiation and 6 hours after every dose change for any titrations. Adjust infusion rate based on aPTT results as listed below. Rate adjustments are to be based on initial weight of 140 kg. aPTT < 53 secs Heparin 60 units/kg bolus (Max = 4,000units) then increase infusion by 4 units/kg/hr. aPTT 53-65 secs Heparin 30 units/kg bolus (Max = 2,000 units) then increase infusion by 2 units/kg/hr. aPTT 66-92 secs No bolus. No change. aPTT 93-99 secs No bolus. Decrease infusion by 1 units/kg/hr. [id number] secs No bolus. Decrease infusion by 2units/kg/hr. aPTT >= 106 secs Hold heparin for 60 minutes then decrease infusion by 3 units/kg/hr. When aPTT is within target range for two consecutive times, check aPTT once daily with morning labs. If the rate titration adjustment indicated by the nomogram causes a dose that is above the ordered range contact provider. If heparin drip is held or stopped for a procedure, call provider to obtain resume rate. * 0555 (New Bag - Provider: Sarai Reinoso RN) * 0705 (Handoff - Provider: Sarai Reinoso RN) * 1430 (Stopped - Provider: Jennifer Duffy RN - Comment: pt went to laboratory engineer with hep gtt on, cameback with it off, no orders) heparin 25,000 units in dextrose 5% 250 mL (premix) infusion (CANCELED) 17 Units/kg/hr 140 kg (23.8 mL/hr), IntraVENous, CONTINUOUS, Starting on Wed02/13/25 at 0100, Until Wed02/14/25 at 0704, Heparin Weight-Based Infusion (CAD/STEMI/NSTEMI/UA/AFIB) Patient weight: 140 kg Initial Infusion rate: 7 Units/kg/hr [Dose adjusted to reflect maximum initial infusion rate of 1000 Units/hr] (If an initial bolus is ordered, give the bolus prior to the initiation of the infusion) Hang infusion immediately after drawing initial labs. Do NOT use ANY aPTT drawn prior to initiation of infusion for titration. Check aPTT 6 hours after initiation and 6 hours after every dose change for any titrations. Adjust infusion rate based on aPTT results as listed below. Rate adjustments are to be based on initial weight of 140 kg. aPTT < 53 secs Heparin 60 units/kg bolus (Max = 4,000 units) then increase infusion by 4 units/kg/hr. aPTT 53-65 secs Heparin 30 units/kg bolus (Max = 2,000units) then increase infusion by 2 units/kg/hr. aPTT 66-92 secs No bolus. No change. aPTT 93-99 secs No bolus. Decrease infusion by 1 units/kg/hr. [id number] secs No bolus. Decrease infusion by 2 units/kg/hr. aPTT >= 106 secs Hold heparin for 60 minutes then decrease infusion by 3 units/kg/hr. When aPTT is within target range for two consecutive times, check aPTT once daily with morning labs.If the rate titration adjustment indicated by the nomogram causes a dose that is above the ordered range contact provider. If heparin drip is held or stopped for a procedure, call provider to obtain resume rate. , Patient came back from laboratory engineer with heparin gtt stopped, physician(cardiology)re-ordered heparin gtt to be re-started at 2000, previous rate., Post-op * 0038 (Restarted - Provider: Jermaine Nesbitt RN) * 0042 (Rate/Dose Verify - Provider: Jermaine Nesbitt RN) * 0104 (Rate/Dose Change - Provider: Jermaine Nesbitt RN) * 0419 (New Bag - Provider: Jermaine Nesbitt RN - Comment: awaiting aptt) * 0653 (Held - Provider: Jermaine Nesbitt RN - Reason: Other - Comment: Aptt value high, holding for 60 minutes.) * 0804 (Rate/Dose Change - Provider: Lili Amaro, ALEJANDRO) * 1405 (Stopped - Provider: Vipin Stafford RN - Comment: FOR [facility] PROCEDURE) Medication [id number]/12/[id number]//12/2024 0.9 % sodium chloride infusion IntraVENous, at 5-250 mL/hr, PRN, if patient receiving piggyback infusions and maintenance fluids are not ordered, Starting on Wed02/09/25 at 1745, For piggyback infusion, administer at same rate as piggyback for a total of 25 mL. Enter 25 mL into dose field and piggyback rate into rate field of order. If piggyback is infusing at a rate less than 100 mL/hr, enter 25 mL into dose field and 100 mL/hr into rate field of order. 0.9 % sodium chloride infusion IntraVENous, at 5-250 mL/hr, PRN, if patient receiving piggyback infusions and maintenance fluids are not ordered, Starting on Wed02/13/25 at 1655, For piggyback infusion, administer at same rate as piggyback for a total of 25 mL. Enter 25 mL into dose field and piggyback rate into rate field of order. If piggyback is infusing at a rate less than 100 mL/hr, enter 25 mL into dose field and 100 mL/hr into rate field of order., Recovery(Cath) 0.9 % sodium chloride infusion IntraVENous, at 240 mL/hr, Administer over 10 Minutes, PRN, blood administration, Starting on Wed02/13/25 at 1457, For 1 dose, For use in priming line prior to transfusion (prime via gravity) and flush line post transfusion ONLY. Discontinue once line has been cleared of remaining blood product. acetaminophen (TYLENOL) suppository 650 mg(Linked Group 1) 650 mg, Rectal, EVERY 6 HOURS PRN, Starting on Wed02/09/25 at 1745, Until Discontinued, Pain Mild (1-3), allowed for higher pain score per patient request, Fever, For temp greater than 100.4 F (38 C), Administer if oral route cannot be used. acetaminophen (TYLENOL) tablet 650 mg(Linked Group 1) 650 mg, Oral, EVERY 6 HOURS PRN, Starting on Wed02/09/25 at 1745, Until Discontinued, Pain Mild (1-3), allowed for higher pain score per patient request, Fever, For temp greater than 100.4 F (38 C), Maximum dose of acetaminophen is 4000 mg from all sources in 24 hours. bivalirudin trifluoroacetate (ANGIOMAX) 250 mg in sodium chloride 0.9 % 50 mL infusion (COMPLETED) CONTINUOUS PRN, Starting on Wed02/13/25 at 1441, Until Wed02/13/25 at 1619, Intra-procedure(Cath) * 1441 (New Bag - Provider: Rosmery Pritchard RN) bivalirudin trifluoroacetate (ANGIOMAX) bolus (CANCELED) PRN, Starting on Wed02/13/25 at 1439, Until Wed02/13/25 at 1619, Intra-procedure(Cath) * 1439 (Given - Provider: Rosmery Pritchard RN) dextrose 10 % infusion IntraVENous, at 100 mL/hr, CONTINUOUS PRN, if blood glucose remains LESS THAN 70 mg/dL after 2 dextrose 10% intravenous boluses or administration of glucagon, Starting on 02/10/25 at 1000, If blood glucose fails to stabilize after 2 dextrose 10% intravenous boluses or glucagon administration, start dextrose 10% infusion at 100 mL/hour and repeat blood glucose at 30 and 60 minutes. If blood glucose is GREATER THAN 70 mg/dL after 60 minutes, discontinue dextrose 10% infusion. dextrose bolus 10% 125 mL(Linked Group 2) 125 mL, IntraVENous, at 937.5 mL/hr, Administer over 8 Minutes, PRN, Other, Blood glucose 40 - 69 mg/dL and patient NOT ALERT or NPO, Starting on 02/10/25 at 1000, Repeat blood glucose in 15 minutes. If blood glucose remains LESS THAN 70 mg/dL, repeat treatment and recheck blood glucose in 15 minutes x 2. If using glycemic management system, dose as instructed per system. If blood glucose remains LESS THAN 70 mg/dL after 2 intravenous boluses start dextrose 10% at 100 mL/hour and notify provider. dextrose bolus 10% 250 mL(Linked Group 2) 250 mL, IntraVENous, at 937.5 mL/hr, Administer over 16 Minutes, PRN, Other, Blood glucose LESS THAN 40 mg/dL and patient NOT ALERT or NPO, Starting on 02/10/25 at 1000, Repeat blood glucose in 15minutes. If blood glucose remains LESS THAN 70 mg/dL, repeat treatment and recheck blood glucose in15 minutes x 2. If using glycemic management system, dose as instructed per system. If blood glucose remains LESS THAN 70 mg/dL after 2 intravenous boluses start dextrose 10% at 100 mL/hour and notify provider. fentaNYL (SUBLIMAZE) injection (CANCELED) PRN, Starting on Wed02/13/25 at 1434, Until Wed02/13/25 at 1619, Intra-procedure(Cath) * 1434 (Given - Provider: Rosmery Pritchard, RN) * 1515 (Given - Provider: Rosmery Pritchard, RN) gentamicin (GARAMYCIN) 0.1 % cream Topical, DAILY PRN, For daily use during PD dressing change, Starting on Wed02/09/25 at 1951, For use by nurse performing peritoneal dialysis. Must be applied daily to Exit Site. glucagon injection 1 mg 1 mg, SubCUTAneous, PRN, Starting on 02/10/25 at 1000, Until Discontinued, Low blood sugar, Blood glucose LESS THAN 70 mg/dL and patient NOT ALERT or NPO and does not have IV access., After administration, attempt intravenous access and start dextrose 10% at 100 mL/hr. Repeat blood glucose in 15minutes x 2 and notify provider. Reconstitute powder for injection by adding 1 mL of contracting executive-supplied sterile diluent or sterile water for injection to a vial containing 1 mg of the drug, to provide solutions containing 1 mg/mL. Shake vial gently to dissolve. glucose chewable tablet 16 g 16 g (4 tablet), Oral, PRN, Starting on 02/10/25 at 1000, Until Discontinued, Low blood sugar, If blood glucose is LESS THAN 70 mg/dL and patient is alert and tolerating oral. Give 4 tablets (16g)Repeat blood glucose in 15 minutes. If blood glucose is LESS THAN 70 mg/dL, repeat treatment and recheck blood glucose in 15 minutes x 2. If blood glucose remains LESS THAN 70 mg/dL, notify provider. heparin (porcine) injection 4,000 Units (CANCELED) 4,000 Units, IntraVENous, PRN, Starting on Wed02/09/25 at 1905, Until Wed02/14/25 at 1105, Other, heparin dosing algorithm, Full dose re-bolus based on pharmacy algorithm * 0049 (Given - Provider: Jermaine Nesbitt RN) hydrOXYzine HCl (ATARAX) tablet 10 mg 10 mg, Oral, 3 TIMES DAILY PRN, Starting on Wed02/13/25 at 1850, Until Discontinued, Anxiety iopamidol (ISOVUE-370) 76 % injection (CANCELED) PRN, Starting on Wed02/12/25 at 1405, Until Wed02/12/25 at 1410, Intra-procedure(Cath) * 1405 (Given - Provider: Hoang Bravo MD - Comment: Right) iopamidol (ISOVUE-370) 76 % injection (CANCELED) PRN, Starting on Wed02/13/25 at 1602, Until Wed02/13/25 at 1619, Intra-procedure(Cath) * 1602 (Given - Provider: Mak Bey MD) lidocaine 1 % injection (CANCELED) IntraDERmal, PRN, Starting on Wed02/12/25 at 1351, Until Wed02/12/25 at 1410, Intra-procedure(Cath) * 1351 (Given - Provider: Hoang Bravo MD - Comment: Right) lidocaine 1 % injection (CANCELED) IntraDERmal, PRN, Starting on Wed02/13/25 at 1427, Until Wed02/13/25 at 1619, Intra-procedure(Cath) * 1427 (Given - Provider: Mak Bey MD - Comment: RIGHT) magnesium hydroxide (MILK OF MAGNESIA) 400 MG/5ML suspension 30 mL 30 mL, Oral, DAILY PRN, Starting on Wed02/09/25 at 1745, Until Discontinued, Constipation, First line therapy for constipation. meclizine (ANTIVERT) tablet 25 mg 25 mg, Oral, 3 TIMES DAILY PRN, Starting on Wed02/09/25 at 1901, Until Discontinued, Dizziness midazolam (VERSED) injection (CANCELED) IntraVENous, PRN, Starting on Wed02/12/25 at 1355, Until Wed02/12/25 at 1410, Intra-procedure(Cath) * 1355 (Given - Provider: Costa Ramon II, RN) midazolam (VERSED) injection (CANCELED) PRN, Starting on Wed02/13/25 at 1425, Until Wed02/13/25 at 1619, Intra-procedure(Cath) * 1425 (Given - Provider: Rosmery Pritchard RN) * 1515 (Given - Provider: Rosmery Pritchard RN) morphine injection 4 mg 4 mg, IntraVENous, ONCE PRN, 1 dose, Starting on Wed02/09/25 at 1745, Until Discontinued, Pain Severe (7-10), Pain Moderate (4-6), allowed for higher pain score per patient request, Give for chest pain if all doses of nitroglycerin have been administered and patient has continued chest pain., Notify provider if nitroglycerin is not effective and morphine administered. Hold for Systolic blood pressure less than 90mmHg or a MAP of less than 65mmHg nitroGLYCERIN (NITROSTAT) SL tablet 0.4 mg 0.4 mg, SubLINGual, EVERY 5 MIN PRN, Starting on Wed02/09/25 at 1745, Until Discontinued, Chest pain, Place 1 tablet under tongue upon chest pain, wait 5 minutes and may repeat up to 3 doses in 15 minutes. Do not crush or break. nitroGLYCERIN injection (CANCELED) PRN, Starting on Wed02/13/25 at 1513, Until Wed02/13/25 at 1619, Intra-procedure(Cath) * 1513 (Given - Provider: Mak Bey MD) * 1520 (Given - Provider: Mak Bey MD) * 1541 (Given - Provider: Mak Bey MD) * 1552 (Given - Provider: Mak Bey MD) ondansetron (ZOFRAN) injection 4 mg(Linked Group 3) 4 mg, IntraVENous, EVERY 6 HOURS PRN, Starting on Wed02/09/25 at 1745, Until Discontinued, Nausea, Vomiting, Administer if oral route cannot be used. * 0038 (See Alternative - Provider: Marah Valenzuela RN) ondansetron (ZOFRAN-ODT) disintegrating tablet 4 mg(Linked Group 3) 4 mg, Oral, EVERY 8 HOURS PRN, Starting on Wed02/09/25 at 1745, Until Discontinued, Nausea, Vomiting * 0038 (Given - Provider: Marah Valenzuela RN) sodium chloride flush 0.9 % injection 10 mL 10 mL, IntraVENous, PRN, Starting on Wed02/09/25 at 1745, Until Discontinued, Line Care, After every IV line use sodium chloride flush 0.9 % injection 5-40 mL 5-40 mL, IntraVENous, PRN, Starting on Wed02/13/25 at 1655, Until Discontinued, Line Care, After every IV line use, For Line Patency: Peripheral IV = 5 mL; Midline or Central Line = 10 mL/lumen. If following IV push medication, administer flush at same rate as the IV push. Flush volume is determinedby type of infusion therapy being given. For non-viscous solutions use: Peripheral IV = 5 mL Midline or Central Line = 10 mL/lumen For viscous solutions (i.e. blood components, parenteral nutrition, contrast media, or after obtaining blood sample) use: Peripheral IV = 10 mL Midline or Central Line = 20 mL/lumen, Recovery(Cath) sulfur hexafluoride microspheres (LUMASON) 60.7-25 MG injection 2 mL (COMPLETED) 2 mL, IntraVENous, IMG ONCE PRN, 1 dose, Starting on Wed02/09/25 at 1745, Until Wed02/12/25 at 1729, Other, Inability to adequately visualize heart without contrast, Only to be given during ECHOCARDIOGRAM. Echocardiogram should first be performed without contrast and if exam is adequate then DO NOTadminister the contrast. If unable to adequately visualize heart without contrast and the patient has no contraindications to echo contrast then administer the echo contrast., Pre-procedure(Stress) * 1729 (Given - Provider: Mis Owens) ticagrelor (BRILINTA) tablet (CANCELED) Oral, PRN, Starting on Wed02/13/25 at 1602, Until Wed02/13/25 at 1619, Intra-procedure(Cath) * 1602 (Given - Provider: Rosmery Pritchard RN) Order Group 1: acetaminophen (TYLENOL) tablet 650 mgJump to med 650 mg, Oral, EVERY 6 HOURS PRN, Starting on Wed02/09/25 at 1745, Until Discontinued, Pain Mild (1-3), allowed for higher pain score per patient request, Fever, For temp greater than 100.4 F (38 C), Maximum dose of acetaminophen is 4000 mg from all sources in 24 hours. Or acetaminophen (TYLENOL) suppository 650 mgJump to med 650 mg, Rectal, EVERY 6 HOURS PRN, Starting on Wed02/09/25 at 1745, Until Discontinued, Pain Mild (1-3), allowed for higher pain score per patient request, Fever, For temp greater than 100.4 F (38 C), Administer if oral route cannot be used. Group 2: dextrose bolus 10% 125 mLJump to med 125 mL, IntraVENous, at 937.5 mL/hr, Administer over 8 Minutes, PRN, Other, Blood glucose 40 - 69 mg/dL and patient NOT ALERT or NPO, Starting on 02/10/25 at 1000, Repeat blood glucose in 15 minutes. If blood glucose remains LESS THAN 70 mg/dL, repeat treatment and recheck blood glucose in 15 minutes x 2. If using glycemic management system, dose as instructed per system. If blood glucose remains LESS THAN 70 mg/dL after 2 intravenous boluses start dextrose 10% at 100 mL/hour and notify provider. Or dextrose bolus 10% 250 mLJump to med 250 mL, IntraVENous, at 937.5 mL/hr, Administer over 16 Minutes, PRN, Other, Blood glucose LESS THAN 40 mg/dL and patient NOT ALERT or NPO, Starting on 02/10/25 at 1000, Repeat blood glucose in 15minutes. If blood glucose remains LESS THAN 70 mg/dL, repeat treatment and recheck blood glucose in15 minutes x 2. If using glycemic management system, dose as instructed per system. If blood glucose remains LESS THAN 70 mg/dL after 2 intravenous boluses start dextrose 10% at 100 mL/hour and notify provider. Group 3: ondansetron (ZOFRAN-ODT) disintegrating tablet 4 mgJump to med 4 mg, Oral, EVERY 8 HOURS PRN, Starting on Wed02/09/25 at 1745, Until Discontinued, Nausea, Vomiting Or ondansetron (ZOFRAN) injection 4 mgJump to med 4 mg, IntraVENous, EVERY 6 HOURS PRN, Starting on Wed02/09/25 at 1745, Until Discontinued, Nausea, Vomiting, Administer if oral route cannot be used. Ordered Prescriptions (unrec ognized section and content) PrescriptionSigDispense QuantityRefillsLast FilledStart DateEnd Date aspirin 81 MG EC tablet Take 1 tablet by mouth daily for 6 doses 30 tablet /07/2025 clopidogrel (PLAVIX) 75 MG tablet Take 1 tablet by mouth daily 90 tablet hydrALAZINE (APRESOLINE) 25 MG tablet Take 1 tablet by mouth 2 times daily 90 tablet FOR RECORDS PERTAINING TO PATIENTS WHO ARE OR HAVE BEEN ENROLLED IN A CHEMICAL DEPENDENCY/SUBSTANCEABUSE PROGRAM, SOME INFORMATION MAY BE OMITTED. This clinical summary was aggregated from multiple sources. Caution should be exercised in using it in the provision of clinical care. This summary normalizes information from multiple sources, and as a consequence, information in this document may materially change the coding, format and clinical context of patient data. In addition, data may be omitted in some cases. CLINICAL DECISIONS SHOULD BE BASED ON THE PRIMARY CLINICAL RECORDS. [employer] provides no warranty or guarantee of the accuracy or completeness of information in this document.
[2025-10-01 17:23] LABS: Hematocrit 33.1 % (42.0-54.0); Hemoglobin 10.1 g/dL (14.0-18.0); Immature Granulocytes Abs Auto 0.11 10^3/uL (0.00-0.03); Immature Granulocytes Pct Auto 0.6 % (0.0-0.5); Lymphocytes Absolute Auto 0.4 10^3/uL (1.2-3.8); Mean Corpuscular HGB Conc 30.5 g/dL (29.9-35.2); Mean Corpuscular Hemoglobin 28.5 pg (25.9-34.0); Mean Corpuscular Volume 93.2 fL (80.0-94.0); Platelet Count 282 10^3/uL (150-450); Red Blood Count 3.55 10^6/uL (4.70-6.10); White Blood Count 18.7 10^3/uL (4.0-11.0)
== END 2025-10-01 16:36 | disposition home or self-care (01) ==
PROVIDERS: PCP Internal Medicine
DX: S31.109A Unspecified open wound of abdominal wall, unspecified quadrant without penetration into peritoneal cavity, initial encounter (principal)
CPT/HCPCS: 36415; 85025; 85652; 86140; 87040

== ENCOUNTER 2025-10-01 18:11 | Emergency (ER) | payer MEDICARE, OTHER, SELFPAY ==
[2025-10-01] VITALS (50 sets, daily range): BP systolic 60–101; BP diastolic 35–56; PULSE 100–117; TEMP 36.5; O2SAT 69–100; BMI 42.1
--- NOTE | 2025-10-01 18:22 | ECG_ITS ---
The [facility] Test Date: 2025-10-01 Pat Name: LORENZO CORTES Department: Room: - Gender: Male Rn Staff: : 1970 Requested By: [id number] Order Number: [id number] Reading MD: SHANNAN HORTON M.D. Measurements Intervals [place] Rate: 114 P: -18843 MA: 111 QRS: 97 QRSD: 128 T: -70 QT: 390 QTc: 457 Interpretive Statements SINUS TACHYCARDIA LEFT BUNDLE BRANCH BLOCK Nonspecific ST-T wave changes 7102 Moderate right axis deviation 9150 abnormal ECG Compared to ECG 02/08/2025 23:11:05 Left bundle-branch block now present Right-axis deviation now present Electronically Signed On 10-01-2025 19:05:12 EST by SHANNAN HORTON M.D.
--- NOTE | 2025-10-01 18:32 | XR_ITS ---
The [address] [address] Patient Name: LORENZO CORTES MRN: [id number] date: 1970 Sex: M Assigned Patient Location: ED.MAIN Current Patient Location: ED.MAIN Accession/Order Number: [id number] Exam Date: 10/01/2025 18:28 Report Date: 10/01/2025 19:43 At the request of: ILIANA BEY MD Procedure: XR chest 1V Plain film chest Single view HISTORY: Dizziness COMPARISON: 02/08/2025 FINDINGS: SUPPORT DEVICES: None POSTSURGICAL CHANGES: None HEART: Within normal limits PULMONARY JIGNESH: Within normal limits MEDIASTINUM: Unremarkable LUNGS AND PLEURA: No acute lung process, pleural effusion or pneumothorax identified. Low lung volumes. Large body habitus. BONY STRUCTURES: Intact ADDITIONAL FINDINGS None XR/XR chest 1V IMPRESSION: No acute process. Impression dictated by: Frederick Gabriel M.D. 10/01/2025 7:43 PM Dictation Location: [employer] Electronically authenticated by: [id number] Y Date: 10/01/2025 19:43
--- NOTE | 2025-10-01 18:33 | ED_ITS ---
HPI - Weakness General Chief complaint: Weakness Stated complaint: Weakness Time Seen by Provider: 10/01/25 18:21 Source: patient Mode of arrival: ambulance History of Present Illness HPI Narrative: The patient is 55-year-old male who just had a aortic valve replacement and [facility] facility almost 9 days ago when he was discharged there Wednesday 3 days ago, patient has been feeling weak and tired he was also evaluated for possible infection of the abdominal wall Patient is a dialysis patient with peritoneal dialysis and he just had dialysis all day and just finished dialysis 2 PM today before arrival The patient apparently presented to the hospital to have blood workup that was ordered for him as outpatient it was to rule out infection including blood culture and CBC. The patient then was not able to get into his car because he was very weak and tired and the rapid was called for the nurses to help him. Patient then arrived at home and the same thing happened and the EMS brought him back to the ER Patient complaining of generally being weak and tired no fever no chills no nausea no vomiting He was prescribed Augmentin by his meterman to be started today for cellulitis of the abdominal wall. Related Data Home Medications ?Medication ?Instructions ?Recorded ?Confirmed apixaban 5 mg tablet (Eliquis) mg 02/09/25 atorvastatin 80 mg tablet mg 02/09/25 buspirone 15 mg tablet mg 02/09/25 ferric citrate 210 mg iron tablet 02/09/25 (Auryxia) furosemide 80 mg tablet mg 02/09/25 hydralazine 50 mg tablet mg 02/09/25 meclizine 25 mg tablet mg 02/09/25 metoprolol succinate 100 mg mg PO 02/09/25 tablet,extended release 24 hr nitroglycerin 0.4 mg sublingual mg 02/09/25 tablet octreotide,microspheres 30 mg mg IM 02/09/25 intramuscular susp, extended release (Sandostatin [place]) Allergies Allergy/AdvReac Type Severity Reaction Status Date / Time ketorolac (From Toradol) Allergy Severe Unknown Verified 02/08/25 23:17 lisinopril AdvReac Mild Cough Verified 02/08/25 23:17 Review of Systems ROS Status of ROS 10 or more systems reviewed and unremark able except as noted in history and below [facility] Medical History (Updated 02/09/25 @ 10:19 by Jennyfer Roseanne Reiderman, RN) Coronary artery disease ?I25.10 - Atherosclerotic heart disease of [place] coronary artery without angina pectoris (ICD-10) Diabetes ?E11.9 - Type 2 diabetes mellitus without complications (ICD-10) Chronic kidney disease ?N18.9 - Chronic kidney disease, unspecified (ICD-10) Social History Little interest or pleasure in doing things: not at all Feeling down, depressed, or hopeless: not at all Exam Narrative Exam Narrative: Nurses notes and vital signs General: Well-appearing and in no apparent distress. Skin: Warm, dry, no pallor noted. No rash. Head: Normocephalic, atraumatic. Neck: Supple, non-tender. Cardiovascular: Regular Rate and Rhythm without murmur, gallop or rub. Respiratory: No accessory muscle use or respiratory distress. Lungs are decreased air entry in the bases Musculoskeletal: Bilateral leg edema with pitting mostly medially with thickened skin, GI: Abdomen is soft, abdomen is distended, the patient have the abdominal wall bilaterally thickened and tender mostly laterally , there is no warmth but the patient have tenderness and discoloration of the abdominal wall No masses appreciated. No tenderness to palpation. No rebound, guarding, or rigidity noted. Neurological: A&O x4. No cranial nerve dysfunction observed. No truncal ataxia. Constitutional Vital Signs, click to edit/add: Last Vital Signs Temp 97.7 F 10/01/25 18:22 Pulse 113 H 10/01/25 18:30 Resp 25 H 10/01/25 18:30 BP 90/48 L 10/01/25 18:30 Pulse Ox 69 L 10/01/25 18:30 O2 Del Method Room Air 10/01/25 18:22 Course Vital Signs Vital signs: Vital Signs Pulse Rate 116 H 10/01/25 18:15 Respiratory Rate 24 H 10/01/25 18:15 Temperature 97.7 F 10/01/25 18:22 Pulse Rate 113 H 10/01/25 18:30 Respiratory Rate 25 H 10/01/25 18:30 Blood Pressure 90/48 L 10/01/25 18:30 Pulse Oximetry 69 L 10/01/25 18:30 Oxygen Delivery Method Room Air 10/01/25 18:22 MDM - Weakness MDM Narrative Medical decision making narrative: Presentation highly suspicious of possible sepsis The blood workup as outpatient shows a white blood cell of 18 Abdominal wall could be the source CBC chemistry as well as lactic and chest x-ray are pending Patient was started on IV fluids with caution 250 cc in each bolus, the patient also was started on midodrine as he usually takes a dose every 8 hours Patient care will be transferred to Dr. Briceño Lab Data Labs: Lab Results 10/01/25 Range/Units 18:35 WBC 16.8 H (4.0-11.0) 10^3/uL RBC 3.30 L (4.70-6.10) 10^6/uL Hgb 9.5 L (14.0-18.0) g/dL Hct 31.1 L (42.0-54.0) % MCV 94.2 H (80.0-94.0) fL MCH 28.8 (25.9-34.0) pg MCHC 30.5 (29.9-35.2) g/dL RDW 18.3 H (11.0-15.0) % Plt Count 240 (150-450) 10^3/uL MPV 9.8 (9.5-13.5) fL PT 14.3 H (9.0-11.6) sec INR 1.39 Discharge Plan Discharge Patient Disposition: Still a Patient
[2025-10-01] MEDS: 0.9 % SODIUM CHLORIDE 1,000 ML 500 ML IV (18:36)
[2025-10-01 18:41] LABS: Hematocrit 31.1 % (42.0-54.0); Hemoglobin 9.5 g/dL (14.0-18.0); Mean Corpuscular HGB Conc 30.5 g/dL (29.9-35.2); Mean Corpuscular Hemoglobin 28.8 pg (25.9-34.0); Mean Corpuscular Volume 94.2 fL (80.0-94.0); Platelet Count 240 10^3/uL (150-450); Red Blood Count 3.30 10^6/uL (4.70-6.10); White Blood Count 16.8 10^3/uL (4.0-11.0)
[2025-10-01 18:53] LABS: INR 1.39; Prothrombin Time 14.3 sec (9.0-11.6)
[2025-10-01 19:04] LABS: Alanine Aminotransferase 8 U/L (16-63); Albumin Globulin Ratio 0.3; Albumin Level 1.7 g/dL (3.4-5.0); Alkaline Phosphatase 373 U/L (46-116); Anion Gap 22.9; Aspartate Amino Transferase 43 U/L (15-37); Blood Urea Nitrogen 60.0 mg/dL (7.0-18.0); Calcium 9.1 mg/dL (8.5-10.1); Carbon Dioxide 23.5 mmol/L (21.0-32.0); Chloride 88 mmol/L (98-107); Estimated GFR (African America 8 (>=60 mL/min/1.73m^2); Estimated GFR (Non-African Ame 7 (>=60 mL/min/1.73m^2); Globulin 5.9 g/dL; Glucose 214 mg/dL (74-106); Potassium 3.4 mmol/L (3.5-5.1); Sodium 131 mmol/L (136-145); Total Protein 7.6 g/dL (6.4-8.2)
--- OUTSIDE RECORDS SUMMARY | 2025-10-01 19:05 | XMS_ITS | CCD ---
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 Name Role Phone Back, Lion Primary Care Provider [phone] RADHA BURTON Attending Unavailable BACK, LION Primary Care Unavailable RADHA BURTON Attending Unavailable BACK, LION Primary Care Unavailable Back , Lion Primary Care Provider [phone] Lion Carlson MD Primary Care Provider Marcial Miller MDapna Unavailable BACK, LION Primary Care Unavailable BRIAN [...] SINGH Admitting Unavailable KAMADANA, GRACIE Referring Unavailable [facility] Consulting Unavai lable BACK, LION Primary Care Unavailable AKKINA, DELROY SOMESWARA Consulting Unavaila ble DOMENICO SMITHSEIN SARAH SOMERS Consulting Unava ilable BLAKE RÍOS ABERRA Consulting Unavail able JOSE DUBON Consulting Unavailab le Allergies Allergy ClassificationReported Allergen(s)Allergy TypeDate of OnsetReaction(s) FacilityAngiotensin Converting Enzyme (KWAKU) Inhibitors (5 sources)LisinoprilDrug Zbdaatg87-83-4393Lffgq (See Comments), [facility]NSAIDs (5 sources)KetorolacDrug Rppksxo18-93-2231Qtqxq (See Comments)[facility] (20 sources)KetorolacDrug Jafyixm58-15-1814Rkqhe (See Comments)[facility]- [place], [place] (20 sources)Lisinopril; Translations: [LISINOPRIL]Drug Xqtjtcl82-35-1594Syfaa (See Comments), [place], [place] (11 sources)Ketorolac; Translations: [KETOROLAC]Drug Ixvofgy77-11-6037Orznz (See Comments), Unknown[facility] Medications Current Medications MedicationDrug Class(es)DatesSig (Normalized)Sig (Original)Acetaminophen (11 sources)Start: 25-87-7490yrxmjyzuprvtj (TYLENOL) tablet 650 mgStart: 06-15-2024 End: 71-10-0921fore 1 tablet by mouth every four hours as needed for pain and nvtnfewg951 mg, Oral, Every 4 hours PRN, mild pain, fever 100.4 F or greater, headaches, Starting on Ladonna 06/15/24 at 1715Start: 72-36-4740ixuw 650 mg by mouth every four hours as needed for pain, then take 4000 mg by mouth every twenty-fo ur hours as needed for ntme579 mg, Oral, EVERY 4 HOURS PRN, Pain Mild (1-3), Fever, Fever >100.5 F (38 C), Starting 10/02/19 at 1347 Maximum dose of acetaminophen is 4000 mg from all sources in 24 hours.Start: 99-16-0776812 mg, Oral, EVERY 4 HOURS PRN, Pain Mild (1-3), Pain Moderate (4-6), Fever, For temp greater foit618.5 F (38 C), Starting Ladonna 09/28/19 at [...] oral tablet (3 sources)Opioid AgonistStart: 09-09-2019 End: 26-94-1776zzry 1 tablet by mouth every six hours as needed for pain HYDROcodone-acetaminophen (NORCO) 5-325 MG per tablet Indications: Hematoma Take 1 tablet by mouth every 6 hours as needed (sever pain) for up to 3 days. 12 tablet 0 09/09/2019 09/12/2019 ActiveStart: 05-69-4278CAYNPneuems-acetaminophen (NORCO) 5-325 MG per tablet 1 tabletamoxicillin 500 mg oral tablet (20 sources)Penicillin-class AntibacterialStart: 82-36-0025anhm 1 tablet by mouth twice dailyamoxicillin (AMOXIL) 500 MG tablet Indications: Acute bacterial sinusitis Take 1 tablet by mouth 2 times daily 20 tablet 0 09/02/2023 Active Start: 45-47-8299atfq 1 tablet by mouth at bedtimeAmoxicillin 500 MG TABS Indications: Benign essential HTN Take 1 tablet by mouth in the morning, atnoon, and at bedtime 30 tablet 0 02/17/2022 ActiveStart: 10-20-2019 End: 14-02-7658ieow 1 tablet by mouth twice dailyAmoxicillin 500 MG TABS Indications: Acute bacterial sinusitis Take 1 tablet by mouth 2 times daily20 tablet 0 10/20/2019 01/12/2020 Discontinued (Therapy completed)apixaban 5 mg oral tablet (20 sources)Factor Xa InhibitorStart: 05-11-2024 End: 62-77-4077wyxf 1 tablet by mouth twice dailyELIQUIS 5 MG TABS tablet Indications: Coronary artery disease involving muscogee coronary artery of 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 angina pectoris , Other pulmonary embolism without acute cor pulmonale, unspecified chronicity (HCC) TAKE ONE TABLET BY MOUTH TWICE A DAY 180 tablet 1 07/09/2025 ActiveStart: 33-62-1053Cjnmhsm 5 mg Tab 1 (one) tablet (5 mg total) daily . 02/14/2024 ActiveStart: 68-07-1426yaxt 1 tablet by mouth twice dailyapixaban (ELIQUIS) 5 MG TABS tablet Indications: Coronary artery disease involving muscogee coronary artery of 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 angina pectoris , Other pulmonary embolism without acute cor pulmonale, unspecified chronicity (HCC) Take 1 tablet by mouth 2 times daily 180 tablet 1 11/16/2023 ActiveStart: 03-32-5962flkw 1 tablet by mouth twice dailyapixaban (ELIQUIS) 5 MG TABS tablet Indications: Coronary artery disease involving muscogee coronary artery of 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 angina pectoris , Other pulmonary embolism without acute cor pulmonale, unspecified chronicity (HCC) Take 1 tablet by mouth 2 times daily 180 tablet 1 05/11/2023 ActiveStart: 27-04-4548kdmg 1 tablet by mouth twice daily apixaban (ELIQUIS) 5 MG TABS tablet Indications: Coronary artery disease involving muscogee coronary artery of 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 angina pectoris , Other pulmonary embolism without acute cor pulmonale, unspecified chronicity (HCC) Take 1 tablet by mouth 2 times daily 180 tablet 1 11/19/2022 ActiveStart: 38-85-2697esmn 1 tablet by mouth twice dailyapixaban (ELIQUIS) 5 MG TABS tablet Indications: Coronary artery disease involving muscogee coronary artery of 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 angina pectoris , Other pulmonary embolism without acute cor pulmonale, unspecified chronicity (HCC) Take 1 tablet by mouth 2 times daily 180 tablet 1 05/21/2022 ActiveStart: 44-72-7935yviv 1 tablet by mouth twice daily apixaban (ELIQUIS) 5 MG TABS tablet Indications: Coronary artery disease involving muscogee coronary artery of 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 angina pectoris , Other pulmonary embolism without acute cor pulmonale, unspecified chronicity (HCC) Take 1 tablet by mouth 2 times daily 180 tablet 1 11/24/2021 ActiveStart: 91-24-6748ixdy 1 tablet by mouth twice dailyapixaban (ELIQUIS) 5 MG TABS tablet Indications: Coronary artery disease involving muscogee coronary artery of 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 angina pectoris , Other pulmonary embolism without acute cor pulmonale, unspecified chronicity (HCC) Take 1 tablet by mouth 2 times daily 180 tablet 1 08/25/2021 ActiveStart: 82-47-7141dysu 1 tablet by mouth twice daily apixaban (ELIQUIS) 5 MG TABS tablet Indications: Coronary artery disease involving muscogee coronary artery of 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 angina pectoris , Other pulmonary embolism without acute cor pulmonale, unspecified chronicity (HCC) Take 1 tablet by mouth 2 times daily 180 tablet 1 02/24/2021 ActiveStart: 61-09-9257zqcl 1 tablet by mouth twice dailyELIQUIS 5 [...] 180 tablet 1 04/11/2020 ActiveStart: 09-08-2019 End: 18-95-0124wuez 2 tablets by mouth twice daily, then take 1 tablet by mouth twice dailyapixaban (ELIQUIS STARTER PACK) 5 MG TABS tablet Take 10 mg (2 tablets) orally twice daily for 7 days, then take 5 mg (1 tablet) orally twice daily thereafter. 74 tablet 0 09/08/2019 09/08/2019 Discontinued (Stop Taking at Discharge)Start: 09-08-2019 End: 21-58-3381caba 1 tablet by mouth twice dailyapixaban (ELIQUIS) 5 MG TABS tablet Take 1 tablet by mouth 2 times daily 180 tablet 1 09/08/2019 Active aspirin 81 mg delayed release oral tablet (20 sources)Platelet Aggregation Inhibitor, Nonsteroidal Anti-inflammatory Drug Start: 02-14-2025 End: 49-68-6785pmdk 1 tablet by mouth once dailyaspirin 81 MG EC tablet Take 1 tablet by mouth daily for 6 doses 30 tablet 3 02/15/2025 ActiveStart: 09-30-2019 End: 73-65-4528ubju 1 tablet by mouth once dailyaspirin 81 MG chewable tablet Take 1 tablet by mouth daily 30 tablet 3 10/08/2019 ActiveStart: 09-29-2019 End: 28-08-3900936 mg, Oral, DAILY, First dose on Wed09/29/19 at 1900 Please give ASA dose upon admission if not done in ER then DAILYStart: 09-28-2019 End: 00-50-8672kdgxeer chewable tablet 324 mgatorvastatin 80 mg oral tablet (20 sources)HMG-CoA Reductase InhibitorStart: 06-15-2024 End: 07-84-2363dgro 80 mg by mouth once daily80 mg, Oral, Nightly, First dose on Ladonna 06/15/24 at 2200Start: 31-72-8328tieh 1 tablet by mouth once daily atorvastatin (LIPITOR) 80 MG tablet Indications: Mixed hyperlipidemia TAKE ONE TABLET BY MOUTH ONCEA DAY 90 tablet 1 05/10/2025 ActiveStart: 51-18-1462krmf 1 tablet by mouth once dailyatorvastatin (LIPITOR) 80 MG tablet Indications: Mixed hyperlipidemia TAKE 1 TABLET BY MOUTH ONE TIME DAILY 90 tablet 1 04/19/2023 ActiveStart: 93-53-1364tktb 1 tablet by mouth once dailyatorvastatin (LIPITOR) 80 MG tablet Indications: Mixed hyperlipidemia TAKE 1 TABLET BY MOUTH ONE TIME DAILY 90 tablet 1 10/23/2022 ActiveStart: 96-08-3093wwdn 1 tablet by mouth once dailyatorvastatin (LIPITOR) 80 MG tablet Indications: Mixed hyperlipidemia TAKE 1 TABLET BY MOUTH ONE TIME DAILY 90 tablet 1 04/23/2022 ActiveStart: 10-28-2021 take 1 tablet by mouth once dailyatorvastatin (LIPITOR) 80 MG tablet Indications: Mixed hyperlipidemia TAKE 1 TABLET BY MOUTH ONE TIME DAILY 90 tablet 1 10/28/2021 ActiveStart: 02-13-6154ewhd 1 tablet by mouth once daily atorvastatin (LIPITOR) 80 MG tablet Indications: Mixed hyperlipidemia TAKE 1 TABLET BY MOUTH ONE TIME DAILY 90 tablet 1 04/24/2021 ActiveStart: 10-31-2020 take 1 tablet by mouth once dailyatorvastatin (LIPITOR) 80 MG tablet Indications: Mixed hyperlipidemia TAKE 1 TABLET BY MOUTH ONE TIME DAILY 90 tablet 1 10/31/2020 ActiveStart: 04-91-4065yypv 1 tablet by mouth once daily atorvastatin (LIPITOR) 80 MG tablet Indications: Mixed hyperlipidemia TAKE 1 TABLET BY MOUTH ONE TIME DAILY 90 tablet 1 05/13/2020 ActiveStart: 09-29-2019 take 80 mg by mouth once daily80 mg, Oral, NIGHTLY, First dose on Wed09/29/19 at 2100Start: 05-11-2019 End: 92-82-7415bxne 1 tablet by mouth once dailyatorvastatin (LIPITOR) 80 MG tablet Indications: Mixed hyperlipidemia TAKE 1 TABLET BY MOUTH ONE TIME DAILY 90 tablet 1 11/20/2019 Activeazithromycin 250 mg oral tablet (1 source)Macrolide AntimicrobialStart: 10-31-2020 End: 16-60-8843rdrv 1 tablet by mouth once daily, then take 2-5 tablets by mouth azithromycin (ZITHROMAX) 250 MG tablet Indications: Acute bacterial sinusitis Take 1 tablet by mouth See Admin Instructions for 5 days 500mg on day 1 followed by 250mg on days 2 - 5 6 tablet 0 10/31/2020 11/05/2020 Activebetamethasone 0.5 mg/ml / clotrimazole 10 mg/ml topical cream (20 sources)Azole Antifungal, CorticosteroidStart: 23-28-4571kpzpbymydtyb- betamethasone (LOTRISONE) 1-0.05 % cream Apply topically 2 times daily. 45 g 09/22/2023 ActivebusPIRone hydrochloride 15 mg oral tablet (20 sources)Start: 53-08-9659wtdh 1 tablet by mouth three times daily15 mg, Oral, 3 TIMES DAILY, First dose on Wed02/09/25 at 2100, Until Discontinued, This 15 mg tablet can be split into thirds (5 mg) or halves (7.5 mg) based on the ordered dose.Start: 06-15-2024 End: 28-63-9702jcmk 15 mg by mouth every eight hours15 mg, Oral, Every 8 hours scheduled, First dose on Wed06/15/24 at 2200Start: 87-10-1924ticb 1 tablet by mouth three times dailybusPIRone (BUSPAR) 15 MG tablet Indications: Generalized anxiety disorder TAKE ONE TABLET BY MOUTH THREE TIMES A DAY 270 tablet 1 04/10/2025 ActiveStart: 61-33-0369rmcp 1 tablet by mouth three times daily busPIRone (BUSPAR) 15 MG tablet Indications: Generalized anxiety disorder TAKE ONE TABLET BY MOUTH THREE TIMES A DAY 270 tablet 1 04/19/2023 ActiveStart: 98-78-4007fkpx 1 tablet by mouth three times dailybusPIRone (BUSPAR) 15 MG tablet Indications: Generalized anxiety disorder TAKE ONE TABLET BY MOUTH THREE TIMES A DAY 270 tablet 1 10/23/2022 ActiveStart: 20-49-7613xvmb 1 tablet by mouth three times dailybusPIRone (BUSPAR) 15 MG tablet Indications: Generalized anxiety disorder TAKE ONE TABLET BY MOUTH THREE TIMES A DAY 270 tablet 1 04/23/2022 ActiveStart: 30-10-7575ozsl 1 tablet by mouth three times daily busPIRone (BUSPAR) 15 MG tablet Indications: Generalized anxiety disorder TAKE ONE TABLET BY MOUTH THREE TIMES A DAY 270 tablet 1 10/28/2021 ActiveStart: 16-98-0534wgpv 1 tablet by mouth three times dailybusPIRone (BUSPAR) 15 MG tablet Indications: Generalized anxiety disorder TAKE ONE TABLET BY MOUTH THREE TIMES A DAY 270 tablet 1 04/24/2021 ActiveStart: 94-83-5312muit 1 tablet by mouth three times dailybusPIRone (BUSPAR) 15 MG tablet Indications: Generalized anxiety disorder TAKE ONE TABLET BY MOUTH THREE TIMES A DAY 270 tablet 1 10/31/2020 ActiveStart: 63-08-5466aaoh 1 tablet by mouth three times daily busPIRone (BUSPAR) 15 MG tablet Indications: Generalized anxiety disorder TAKE ONE TABLET BY MOUTH THREE TIMES A DAY 270 tablet 1 05/23/2020 ActiveStart: 14-04-4317mnbs 1 tablet by mouth three times daily15 mg, Oral, 3 TIMES DAILY, First dose on Ladonna 09/28/19 at 1400 This 15 mg tablet can be split into thirds (5 mg) or halves (7.5 mg) based on the ordered dose.Start: 08-17-2019 End: 15-65-4918rtuv 1 tablet by mouth three times dailybusPIRone (BUSPAR) 15 MG tablet Indications: Generalized anxiety disorder TAKE ONE TABLET BY MOUTH THREE TIMES A DAY 270 tablet 1 11/20/2019 ActiveStart: 96-48-4918uxeo 1 tablet by mouth three times dailybusPIRone (BUSPAR) 15 MG tablet Indications: Generalized anxiety disorder TAKE ONE TABLET BY MOUTH THREE TIMES A DAY 270 tablet 0 06/26/2019 Activecalcitriol 0.0005 mg oral capsule (17 sources)Vitamin D3 AnalogStart: 66-11-9573ibnjyyILDV (ROCALTROL) 0.5 MCG capsule 10/02/2024 ActiveceFAZolin (ANCEF) 1,000 mg in sterile water 10 mL IV syringe (1 source)Start: 02-12-2025 End: 51,000 mg, IntraVENous, EVERY 24 HOURS, First dose on Wed02/12/25 at 1900, For 3 days, Administer over 5 mins. Reconstitute 1 g vial with 10 mL Sterile Water. Withdraw entire contents.cholecalciferol 0.05 mg oral tablet (20 sources)Vitamin DStart: 13-35-0424Ewzsqhlagekljoq 50 MCG (2000 UT) TABS Take 1 tablet by mouth 07/14/2024 ActiveStart: 72-77-1720Pyguwtn D (CHOLECALCIFEROL) tablet 10,000 Unitstake 5000 [IU] by mouth once dailyCholecalciferol (VITAMIN D3 PO) Take 5,000 Units by mouth daily 0 Activetake 24009 [IU] by mouth once dailyCholecalciferol (VITAMIN D3 PO) Take 10,000 Units by mouth daily 0 Active take 83318 [IU] by mouth once dailyCholecalciferol (VITAMIN D3 PO) Take 10,000 Units by mouth daily 0 Activeclopidogrel 75 mg oral tablet (20 sources)P2Y12 Platelet InhibitorStart: 76-42-2483hiik 75 mg by mouth once daily75 mg, Oral, DAILY, First dose on Wed02/15/25 at 0900, Until Discontinued Start: 00-89-3653rlkl 1 dose by mouth tpii508 mg, Oral, ONCE, 1 dose, On Wed02/14/25 at 1315Start: 03-25-2023 End: 52-71-0500mklw 1 tablet by mouth once daily in the morningclopidogreL (PLAVIX) 75 mg tablet Take 1 (one) tablet (75 mg total) by mouth every morning . 30 tablet 11 06/22/2024 10:15 AM EDT 06/21/2024 Suspendeddocusate sodium 50 mg / sennosides, long term 8.6 mg oral tablet (20 sources)Start: 97-51-5328ibgo 2 tablets by mouth twice daily as needed for constipationsennosides-docusate sodium (SENOKOT-S) 8.6-50 MG tablet Take 2 tablets by mouth 2 times daily as needed for Constipation 60 tablet 10/07/2019 ActiveStart: 96-92-3049uocpooqozc-docusate sodium (SENOKOT-S) 8.6-50 MG tablet 2 tabletDULoxetine 60 mg delayed release oral capsule (20 sources)Serotonin and Norepinephrine Reuptake InhibitorStart: 25-60-9795wwyr 1 capsule by mouth once daily60 mg, Oral, DAILY, First dose on Wed02/13/25 at 1915, Until Discontinued, Do not crush or break. May add contents of capsule to apple juice or apple sauce, but not chocolate.Start: 10-22-2023 End: 80-12-0306qhnz 1 capsule by mouth once dailyDULoxetine (CYMBALTA) 60 MG extended release capsule Indications: Depression with anxiety TAKE ONE CAPSULE BY MOUTH ONCE A DAY 90 capsule 1 05/10/2025 ActiveStart: 58-49-2164rmqi 1 capsule by mouth once dailyDULoxetine (CYMBALTA) 60 MG extended release capsule Indications: Depression with anxiety TAKE ONE CAPSULE BY MOUTH ONE TIME DAILY 90 capsule 1 04/19/2023 ActiveStart: 85-22-5537qvjx 1 capsule by mouth once daily DULoxetine (CYMBALTA) 60 MG extended release capsule Indications: Depression with anxiety TAKE ONE CAPSULE BY MOUTH ONE TIME DAILY 90 capsule 1 10/23/2022 ActiveStart: 23-81-5830hucr 1 capsule by mouth once dailyDULoxetine (CYMBALTA) 60 MG extended release capsule Indications: Depression with anxiety TAKE ONE C APSULE BY MOUTH ONE TIME DAILY 90 capsule 1 04/23/2022 ActiveStart: 10-28-2021 take 1 capsule by mouth once dailyDULoxetine (CYMBALTA) 60 MG extended release capsule Indications: Depression with anxiety TAKE ONE CAPSULE BY MOUTH ONE TIME DAILY 90 capsule 1 10/28/2021 ActiveStart: 63-58-7783isnl 1 capsule by mouth once dailyDULoxetine (CYMBALTA) 60 MG extended release capsule Indications: Depression with anxiety TAKE ONE CAPSULE BY MOUTH ONE TIME DAILY 90 capsule 1 04/24/2021 ActiveStart: 52-44-4610lkgz 1 capsule by mouth once dailyDULoxetine (CYMBALTA) 60 MG extended release capsule Indications: Depression with anxiety TAKE ONE CAPSULE BY MOUTH ONE TIME DAILY 30 capsule 0 01/16/2021 ActiveStart: 59-18-1106qefw 1 capsule by mouth once dailyDULoxetine (CYMBALTA) 60 MG extended release capsule Indications: Depression with anxiety TAKE ONE CAPSULE BY MOUTH ONE TIME DAILY 90 capsule 1 10/08/2020 ActiveStart: 27-47-2324soao 1 capsule by mouth once dailyDULoxetine (CYMBALTA) 60 MG extended release capsule Indications: Depression with anxiety TAKE ONE CAPSULE BY MOUTH ONE TIME DAILY 90 capsule 1 04/11/2020 ActiveStart: 37-21-3341mmls 1 capsule by mouth once daily DULoxetine (CYMBALTA) 60 MG extended release capsule Indications: Depression with anxiety TAKE ONE CAPSULE BY MOUTH ONE TIME DAILY 90 capsule 1 10/16/2019 ActiveStart: 10-52-5538bkqg 1 capsule by mouth once daily60 mg, Oral, DAILY, First dose on Wed09/29/19 at 1900 Do not crush or break. May add contents of ca psule to apple juice or apple sauce, but not chocolate.Start: 47-25-8676dyxc 1 capsule by mouth once daily60 mg, Oral, DAILY, First dose on 09/04/19 at 1145 Do not crush or break. May add contents of capsule to apple juice or apple sauce, but not chocolate.Start: 15-47-5852xqis 1 capsule by mouth once daily DULoxetine (CYMBALTA) 60 MG extended release capsule Indications: Depression with anxiety TAKE 1 CAPSULE BY MOUTH ONE TIME A DAY 90 capsule 1 04/11/2019 Activeepoetin santino 10716 unt/ml injectable solution (16 sources)Erythropoiesis-stimulating Agentepoetin santino (EPOGEN;PROCRIT) 82134 UNIT/ML injection Inject 1 mL into the skin Every Wednesday, Wednesday, and Wednesday Activeergocalciferol 1.25 mg oral capsule (20 sources)Provitamin D2 CompoundStart: 01-30-2021 End: 81-62-8805otmu 1 capsule by mouth every weekvitamin D (ERGOCALCIFEROL) 1.25 MG (87656 UT) CAPS capsule Indications: Vitamin D deficiency Take 1capsule by mouth once a week 12 capsule 1 01/30/2021 ActiveStart: 42-91-9438apxl 47406 [IU] by mouth every week50,000 Units, Oral, WEEKLY, First dose on Ladonna 10/05/19 at 0900Start: 03-06-2019 End: 31-37-9918vfsi 1 capsule by mouth every weekvitamin D (ERGOCALCIFEROL) 32048 units CAPS capsule Indications: Vitamin D deficiency Take 1 capsule by mouth once a week 12 capsule 1 03/06/2019 09/29/2019 Discontinued (DISCONTINUED BY ANOTHER CLINICIAN)take 1 capsule by mouth once dailyergocalciferol, vitamin D2, 50 mcg (2,000 unit) cap Take 1 capsule by mouth daily . Suspendedferric citrate 1000 mg oral tablet (16 sources)Start: 30-00-4318ufbb 1 tablet by mouth twice daily at mealtime AURYXIA 1 GM 210 MG(Fe) TABS tablet Take 1 tablet by mouth 2 times daily (with meals) 10/25/2024 Activeferrous sulfate 325 mg delayed release oral tablet (20 sources)Start: 95-45-3625eqpx 325 mg by mouth once daily at xhdnqanec556 mg, Oral, DAILY WITH BREAKFAST, First dose on 09/29/19 at 0800Start: 09-09-2019 End: 07-86-3680ezkg 1 tablet by mouth once daily at breakfastferrous sulfate 325 (65 Fe) MG EC tablet Take 1 tablet by mouth daily (with breakfast) 90 tablet 3 09/09/2019 Activegentamicin 1 mg/ml topical cream (7 sources)Start: 91-27-2602Trgdpyy, DAILY PRN, For daily use during PD dressing change, Starting on 02/09/25 at 1951, For use by nurse performing peritoneal dialysis. Must be applied daily to Exit Site.Start: 59-75-7616cbydjdvbzd (GARAMYCIN) 0.3 % ophthalmic solution by Other [...] for injection by adding 1 mL of welt beater-supplied sterile diluent or sterile water for injection to a vial containing 1 mg of the drug, to provide solutions containing 1 mg/mL. Shake vial gently to dissolve. Start: 44-76-9061hbjhirxz 1 MG injection Mix and inject entire contents of vial into muscle for severe low blood sugar 1 kit 2 04/04/2020 ActiveStart: 61-55-5154tdypvksd (rDNA) injection 1 mgStart: 84-93-4579bjdi 1 mL intravenous route every hour1 mg, Intramuscular, PRN, Low blood sugar, Blood glucose less than 70 mg/dL and patient NOT ALERT or NPO and does not have IV access., Starting Ladonna 09/28/19 at 1245 After administration, attempt intravenous access and start D5W at 100 mL/hr. Repeat blood glucose in 15 minutes x2 and notify provider.Start: 51-65-4376msibsxst (rDNA) injection 1 mgglucagon 1 mg/mL SolR Inject 1 mL (1 mg total) into the shoulder, thigh, or buttocks as needed . Radha pendedglucagon 1 mg/mL SolR Inject 1 mL (1 mg total) into the shoulder, thigh, or buttocks once . ActiveGlucose (12 sources)Start: 95-48-1456XeoxlXYUcbb, at 100 mL/hr, CONTINUOUS PRN, if blood [...] after 60 minutes, discontinue dextrose 10% infusion.Start: 70-40-2280xqmkaxpc bolus 10% 125 mLStart: 33-84-135740 g (4 tablet), Oral, PRN, Starting on [...] remains LESS THAN 70 mg/dL, notify provider.Start: 68-62-5163yukdticv 50 % IV solutionStart: 27-86-7642ayetckio 5 % solutionStart: 45-03-8746hqfrdbp (GLUTOSE) 40 % oral gel 15 gStart: 74-72-822137 g, Oral, PRN, Low blood sugar, Starting [...] in 15 minutes x2 and notify provider.Start: 94-99-028632.5 g, Intravenous, PRN, Low blood sugar, Blood [...] using Glucostabilizer, dose as instructed per system.Start: 31-10-2890960 mL/hr, Intravenous, at 100 mL/hr, PRN, Low blood sugar, Starting Ladonna 09/28/19 at 1245 Start infusion following administration of dextrose 50% or glucagon.Start: 73-05-6698tvwlitl (GLUTOSE) 40 % oral gel 15 gStart: 98-13-2028sazsbqco 50 % IV solutionStart: 97-61-0392lfmzpvqc 5 % solutionhydrALAZINE hydrochloride 25 mg oral tablet (20 sources)Arteriolar VasodilatorStart: 12-94-6072ugli 1 tablet by mouth twice dailyhydrALAZINE (APRESOLINE) 25 MG tablet Take 1 tablet by mouth 2 times daily 90 tablet 3 02/14/2025 ActiveStart: 18-97-2412gngm 25 mg by mouth twice daily25 mg, Oral, 2 TIMES DAILY, First dose (after last modification) on Wed02/11/25 at 2100, Until Discontinued, Hold for sbpStart: 02-09-2025 End: 03-24-3448zyfv 50 mg by mouth twice daily50 mg, Oral, 2 TIMES DAILY, First dose (after last modification) on Wed02/09/25 at 2100, Until DiscontinuedStart: 07-19-2024 End: 40-89-6111dnae 2 tablets by mouth twice dailyhydrALAZINE (APRESOLINE) 50 MG tablet Take 2 tablets by mouth 2 times daily 07/19/2024 02/14/2025 Discontinued (Stop Taking at Discharge)Start: 68-23-6940wfbz 0.5 tablet by mouth twice daily hydrALAZINE (APRESOLINE) 50 MG tablet Take 0.5 tablets by mouth 2 times daily 07/19/2024 ActiveStart: 06-15-2024 End: 40-70-1291hebr 100 mg by mouth twice mg, Oral, 2 times daily, First dose on Ladonna 06/15/24 at 2200Start: 40-27-4671lwrb 1 tablet by mouth twice dailyhydrALAZINE (APRESOLINE) 100 MG tablet Indications: Benign essential HTN Take 1 tablet by mouth 2 times daily 180 tablet 1 03/03/2024 ActiveStart: 58-68-8374cwfkDPGYTEZ (APRESOLINE) 50 MG tablet Indications: Benign essential HTN TAKE 1 AND 1/2 TABLET BY MOUTH TWO TIMES A DAY 270 tablet 1 12/11/2021 ActiveStart: 38-55-8111sgbjJVVLKAT (APRESOLINE) 50 MG tablet Indications: Benign essential HTN TAKE 1 AND 1/2 TABLET BY MOUTH TWO TIMES A DAY 270 tablet 1 06/03/2021 ActiveStart: 52-75-3421xnkuEGLCAIR (APRESOLINE) 50 MG tablet Indications: Benign essential HTN TAKE 1 AND 1/2 TABLET BY MOUTH TWO TIMES A DAY 270 tablet 1 12/12/2020 ActiveStart: 05-48-9130sjunYVVQQEO (APRESOLINE) 50 MG tablet Indications: Benign essential HTN TAKE 1 AND 1/2 TABLET BY MOUTH TWO TIMES A DAY 270 tablet 1 06/17/2020 ActiveStart: 86-47-6850nnfuICYKUBM (APRESOLINE) 50 MG tablet Indications: Benign essential HTN TAKE 1 AND 1/2 TABLET BY MOUTH TWO TIMES A DAY 270 tablet 1 03/28/2020 ActiveStart: 12-22-2019 hydrALAZINE (APRESOLINE) 50 MG tablet Indications: Benign essential HTN TAKE 1 AND 1/2 TABLET BY MOUTH TWO TIMES A DAY 270 tablet 0 12/22/2019 ActiveStart: 52-74-7801zbbu 75 mg by mouth twice daily75 mg, Oral, 2 TIMES DAILY, First dose on Wed09/29/19 at 2100Start: 03-53-3441qmse 75 mg by mouth twice daily75 mg, Oral, 2 TIMES DAILY, First dose on Ladonna 09/28/19 at 2100Start: 09-28-2019 hydrALAZINE (APRESOLINE) injection 10 mgStart: 66-80-5082ryum 75 mg by mouth twice daily75 mg, Oral, 2 TIMES DAILY, First dose on 09/04/19 at 1145 Hold for SBP <110Start: 63-16-1229dejw 1 tablet by mouth twice dailyhydrALAZINE (APRESOLINE) 50 MG tablet Indications: Benign essential HTN TAKE 1 1/2 TABLETS BY MOUTHTWICE DAILY 270 tablet 1 06/16/2019 Activeinsulin lispro 100 unt/ml injectable solution (20 sources)Insulin AnalogStart: 83-57-1296PLWLOWH 100 UNIT/ML SOLN injection vial Indications: Poorly controlled type 2 diabetes mellitus with complication (HCC) Use via pump max dose 450 units/day 200 mL 3 03/08/2025 ActiveStart: 48-09-5235ekvjfa 1 dose by subcutaneous injection once15 Units, [...] minutes of l ast blood glucose checkStart: 52-51-5981WXPSKCJ 100 UNIT/ML SOLN injection vial Indications: Poorly controlled type 2 diabetes mellitus with complication (HCC) Use via pump max dose 350 units/day 150 mL 3 12/01/2024 ActiveStart: 12-15-2022 HUMALOG 100 UNIT/ML SOLN injection vial Use via pump max dose 250 units/day 120 mL 3 07/27/2024 ActiveStart: 40-43-5490xadaamw lispro (HUMALOG) 100 UNIT/ML injection vial Use via insulin pump max daily dose 150 units 140 mL 3 11/28/2021 ActiveStart: 31-09-7122riymmjj lispro (HUMALOG) 100 UNIT/ML injection vial Use via insulin pump max daily dose 150 units 14 vial 1 06/27/2021 ActiveStart: 42-25-1899edbhleh lispro (HUMALOG) 100 UNIT/ML injection vial Use [...] each meals 90 pen 3 12/05/2020 ActiveStart: 51-05-9523mwafxvr lispro (HUMALOG) injection vial 6 UnitsStart: 09-28-2019 End: 21-16-4541zclnby 5 [IU] by subcutaneous injection three times daily before mealtime5 Units, Subcutaneous, 3 TIMES DAILY BEFORE MEALS, First dose on Wed09/29/19 at 1900Start: 82-57-47900-9 Units, Subcutaneous, NIGHTLY, First dose on Wed09/29/19 at 2100 If continuous tube feedings/TPN/NPO, give correction dose based on result, no reduction in dose. If eating or bolus tube feeding: High Dose Corrective Algorithm Glucose: Dose: 70-139 No Insulin 140-199 & amp;nbsp; 2 Units 200-249 3 Units 250-2995 Units 300-349 6 Units 350-400 7 Units Over 400 9 UnitsStart: 08-57-6234ksbqmvx lispro (HUMALOG KWIKPEN) 100 UNIT/ML pen Indications: Uncontrolled type 2 diabetes mellituswith hyperosmolarity without coma, with long-term current use of insulin (HCC) Inject 5 Units into the skin 3 times daily (before meals) 15 mL 3 03/06/2019 ActiveStart: 63-56-6836udajtkw lispro (HUMALOG KWIKPEN) 100 UNIT/ML pen Indications: Uncontrolled type 2 diabetes mellituswith hyperosmolarity without coma, with long-term current use of insulin (HCC) Inject 5 Units into the skin 3 times daily (before meals) 15 mL 3 03/06/2019 Activeinsulin lispro (HUMALOG) 100 UNIT/ML injection vial (14 sources)Start: 44-42-5790ufrxjpp lispro (HUMALOG) 100 UNIT/ML injection vial Indications: Uncontrolled type 2 diabetes mellitus with chronic kidney disease Use via insulin pump max daily dose 150 units 140 mL 3 03/31/2022 ActiveStart: 55-27-8222caexfxk lispro (HUMALOG) 100 UNIT/ML injection vial Indications: 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) Use via insulin pump max daily dose 150 units 140 mL 3 03/31/2022 Activelosartan potassium 25 mg oral tablet (20 sources)Angiotensin 2 Receptor BlockerStart: 73-68-1789ilma 1 tablet by mouth every other daylosartan (COZAAR) 25 MG tablet Take 1 tablet by mouth every other day 90 tablet 1 04/04/2020 ActiveStart: 91-89-2114wcpj 25 mg by mouth once daily25 mg, Oral, DAILY, First dose on Wed09/29/19 at 1900Start: 10-05-4620myno 25 mg by mouth once daily25 mg, Oral, DAILY, First dose on Wed09/28/19 at 1315Start: 09-04-2019 End: 32-76-3813llzu 25 mg by mouth twice daily25 mg, Oral, 2 TIMES DAILY, First dose on 09/04/19 at 6864178 ml magnesium sulfate 10 mg/ml injection (1 source)Start: 48-08-8378ukmh 1 mg intravenous route every hour as [...] hydrochloride 12.5 mg oral tablet (20 sources)AntiemeticStart: 57-00-4025Ewhcl: 64-15-9880qlbk 25 mg by mouth three times daily as needed for giejpfjgj63 mg, Oral, 3 TIMES DAILY PRN, Dizziness, Starting 09/29/19 at 1838Start: 98-69-5207niru 25 mg by mouth three times daily as needed for jjzpwilcy88 mg, Oral, 3 TIMES DAILY PRN, Dizziness, Starting 09/04/19 at 1122Start: 13-51-8895nosu 1 tablet by mouth three times daily as needed for dizzinessmeclizine (ANTIVERT) 25 MG tablet Indications: Vertigo Take 1 tablet by mouth 3 times daily as needed for Dizziness 90 tablet 2 10/30/2024 Activenaloxone 0.4 mg in 10 mL sodium chloride syringe (1 source)Start: 20-13-9303TehgjSIBpeu, PRN, Opioid Reversal, Starting on Wed08/29/24 at [...] mg/hr transdermal system (1 source)Cholinergic Nicotinic AgonistStart: 27-70-1098bhtjnaqr (NICODERM CQ) 21 MG/24HR 1 patchoctreotide 30 mg injection (20 sources)Somatostatin AnalogStart: 05-83-5209tivcks 1 dose by intramuscular injection once20 mg, IntraMUSCular, ONCE, 1 dose, On Wed01/10/25 at 1300Start: 91-75-4391tqnmvmuqik ACETATE (SANDOSTATIN LAR) injection 30 mg (Patient Supplied)Start: 04-21-2024 End: 74-41-5932xxwofuioje ER (SandoSTATIN LAR [place]) 30 mg injection Inject 30 (thirty) mg into the shoulder, thigh, or buttocks every 28 days . 1 each 05/19/2024 SuspendedStart: 94-44-9069xedptpgzsf ACETATE (SANDOSTATIN LAR) injection 30 mg (Patient Supplied)Start: 10-44-8425yhubmebyka ACETATE (SANDOSTATIN LAR) injection 30 mg (Patient Supplied)Start: 49-78-0130ekojynalxe ACETATE (SANDOSTATIN LAR) injection 30 mg (Patient Supplied)Start: 09-22-2021 octreotide ACETATE (SANDOSTATIN LAR [place]) 30 MG injection Indications: Carcinoid tumor of stomach INJECT 30MG INTRAMUSCULARLY EVERY 28 DAYS 1 kit 5 09/22/2021 ActiveStart: 90-13-1488lxiyiebrdf ACETATE (SANDOSTATIN LAR) injection 30 mgStart: 20-35-1541zzhjezfrkh ACETATE (SANDOSTATIN LAR) injection 30 mg Start: 74-99-6633lhirzxdczz ACETATE (SANDOSTATIN LAR) injection 30 mgStart: 36-94-7752fnkpgdqbgi ACETATE (SANDOSTATIN LAR DEPOT) 30 MG injection Indications: Carcinoid tumor of stomach Inject 30 mg into the muscle every 28 days 1 kit 11 12/20/2019 ActiveStart: 83-67-6286rzpqtjjkmt ACETATE (SANDOSTATIN LAR) injection 30 mg End: 35-24-6668PWDHMJVYYV ACETATE SUBQ Inject 30 mg under the [...] PRN, Nausea, Starting Ladonna 09/28/19 at 1245Start: 76-62-2506hguphdffyzn (ZOFRAN) injection 4 mgondansetron (ZOFRAN-ODT) disintegrating tablet 4 mg (2 sources)Start: 23-56-2751xabnytaegsj (ZOFRAN-ODT) disintegrating tablet 4 mg Start: 06-15-2024 End: 25-49-9062kegh 1 tablet by mouth every six hours as needed for nausea and vomitingondansetron (ZOFRAN-ODT) disintegrating tablet 4 mgpolyethylene glycol 3350 73223 mg powder for oral solution (10 sources)Osmotic LaxativeStart: 09-04-2019 End: 46-26-053067 g, Oral, DAILY PRN, Constipation, Starting Wed09/29/19 at 1838Potassium Chloride (2 sources)Start: 61-20-4256slboprufb chloride (KLOR-CON M) extended release tablet 40 mEqStart: 17-68-216748 mEq, Intravenous, at 100 mL/hr, PRN, Per [...] oral tablet (20 sources)Angiotensin 2 Receptor BlockerStart: 15-30-1143qrdc 24-26 mg by mouth oncesacubitril-valsartan (ENTRESTO) 24-26 MG per tablet Take 1 tablet by mouth 2 times daily 180 tablet1 10/30/2024 ActiveStart: 06-19-2024 End: 84-72-2740tmjg 1 tablet by mouth twice dailysacubitriL-valsartan (ENTRESTO) 24-26 mg per tablet Take 1 (one) tablet by mouth 2 (two) times a day Hold for systolic 60 tablet 11 06/22/2024 10:15 AM EDT 06/22/2024 Suspendedtake 24-26 mg by mouth oncesacubitril-valsartan (ENTRESTO) 24-26 MG per tablet Take 1 tablet by mouth 2 times daily Activespironolactone 25 mg oral tablet (8 sources)Aldosterone AntagonistStart: 12-58-5825mhamqwiswxbwpd (ALDACTONE) 25 MG tablettamsulosin hydrochloride 0.4 mg oral capsule (20 sources)alpha-Adrenergic BlockerStart: 10-23-2019 End: 10-53-1785epad 1 capsule by mouth once dailytamsulosin (FLOMAX) 0.4 MG capsule Take 1 capsule by mouth daily 90 capsule 1 11/20/2019 ActiveStart: 05-27-2018 End: 83-71-1734axnc 1 capsule by mouth once daily in the eveningtamsulosin (FLOMAX) 0.4 MG capsule Indications: Benign prostatic hyperplasia without lower urinary tract symptoms Take 1 capsule by mouth every evening 30 capsule 5 05/27/2018 09/03/2019 Discontinued(LIST CLEANUP) Completed/Discontinued Medications MedicationDrug Class(es)DatesSig (Normalized)Sig (Original)acetylcysteine 200 mg/ml inhalant solution (2 sources)Antidote, Mucolytic, Antidote for Acetaminophen OverdoseStart: 10-05-2019 End: 25-70-7585kricflxbgllrwu (MUCOMYST) 20 % solution 600 mgStart: 10-01-2019 End: 86-17-9351tybfmfzalqfinq (MUCOMYST) 20 % solution 600 mgALPRAZolam 0.25 mg oral tablet (1 source)BenzodiazepineStart: 10-02-2019 End: 36-72-5730JQVUAVxrrx (XANAX) tablet 0.25 mgaluminum hydroxide 40 mg/ml / magnesium hydroxide 40 mg/ml / simethicone 4 mg/ml oral suspension (1 source)Start: 06-15-2024 End: 70-37-1301ogpt 30 mL by mouth every four hours as neededBlood Glucose Monitoring Suppl (PRODIGY AUTOCODE BLOOD GLUCOSE) w/Device KIT (11 sources)Start: 03-06-2019 End: 64-59-3540Vohzm Glucose Monitoring Suppl (PRODIGY AUTOCODE BLOOD GLUCOSE) w/Device KIT Use as directed to test up to 4 times daily 1 kit 0 03/06/2019 10/07/2019 Discontinued (Stop Taking at Discharge)Start: 37-22-9858Gbejp Glucose Monitoring Suppl (PRODIGY AUTOCODE BLOOD GLUCOSE) w/Device KIT Use as directed to test up to 4 times daily 1 kit 0 03/06/2019 SuspendedStart: 61-32-4846Roodm Glucose Monitoring Suppl (PRODIGY AUTOCODE BLOOD GLUCOSE) w/Device KIT Use as directed to test up to 4 times daily 1 kit 0 03/06/2019 ActivebuPROPion hydrochloride 75 mg oral tablet (2 sources)AminoketoneStart: 33-49-1235woxw 1 tablet by mouth twice daily buPROPion (WELLBUTRIN) 75 MG tablet Take 1 (one) tablet (75 mg total) by mouth 2 (two) times a day . 07/30/2025 Suspendedcalcium chloride 0.804051 meq/ml / glucose 1 mg/ml / magnesium chloride 0.3676981 meq/ml / sodium chloride 0.27023 meq/ml / sodium lactate 0.0016 meq/ml intraperitoneal [...] 6 HOURS, First dose on Wed02/09/25 [place] 65622 ml enoxaparin sodium 150 mg/ml prefilled syringe (5 sources)Low Molecular Weight HeparinStart: 06-12-2019 End: 77-63-9070miavrg 150 mg by subcutaneous injection twice dailyenoxaparin (LOVENOX) 150 MG/ML injection Indications: Other pulmonary embolism without acute cor pulmonale, unspecified chronicity (HCC) INJECT 150 MG SUBCUTANEOUSLY TWO TIMES A DAY 60 mL 3 06/12/2019 09/08/2019 Discontinued (Stop Taking at Discharge)2 ml fentaNYL 0.05 mg/ml injection (4 sources)Opioid AgonistStart: 05-69-156975 mcg, IntraVENous, EVERY 5 MIN PRN, 2 [...] approved by provider., PACU onlyStart: 09-04-2019 End: 62-23-7757heociVYP (SUBLIMAZE) injection 50 mcgStart: 09-04-2019 End: 26-76-0499vfzsfCFD (SUBLIMAZE) injection 50 mcgfluticasone propionate 0.05 mg/actuat metered dose nasal spray (20 sources)CorticosteroidStart: 40-30-5566wbiy 2 spray(s) nasal route once daily as neededfluticasone propionate (FLONASE) 50 mcg/actuation nasal spray Instill 2 (two) sprays into each nostril daily as needed for allergies . 09/02/2023 SuspendedStart: 50-81-9103hxmopxnkwbg (FLONASE) 50 MCG/ACT nasal spray Indications: Acute bacterial sinusitis 2 sprays by Nasal route daily 16 g 3 09/02/2023 Activefurosemide 40 mg oral tablet (20 sources)Loop DiureticStart: 25-13-9254gqlw 80 mg by mouth twice daily80 mg, Oral, 2 TIMES DAILY, First dose on Wed02/09/25 at 2100, Until DiscontinuedStart: 04-47-4727riam 1 tablet by mouth twice dailyfurosemide (LASIX) 80 MG tablet Take 1 tablet by mouth 2 times daily 10/26/2024 ActiveStart: 38-35-6748xcph 1 tablet by mouth in the morningfurosemide (LASIX) 40 MG tablet Take 1 tablet by mouth in the morning and 1 tablet in the evening. 60 tablet 2 10/05/2024 Active Start: 06-16-2024 End: 79-24-665603 mg, Intravenous, Every 12 hours scheduled, First dose on Wed06/16/24 at 1800, Administer IV push at 20 mg per minute (doses higher than 100 mg require IVPB)Start: 06-15-2024 End: 85-91-9966zrgi 40 mg by mouth twice daily40 mg, Oral, 2 times daily, First dose on Ladonna 06/15/24 at 2200Start: 22-37-4039upla 1 tablet by mouth once daily as neededfurosemide (LASIX) 20 MG tablet Take 1 tablet by mouth daily Prn 0 03/06/2019 ActiveStart: 04-44-1133mjuqnlmumy (LASIX) 20 MG tablet Furosemide 20 mg, Oral, EVERY 48 HOURS, First dose on 09/04/19 at 1145 09-04-2019 [place] ([id number]) 0 03/06/2019 ActiveStart: 03-06-2019 End: 52-65-8306nzip 1 tablet by mouth every other dayfurosemide [...] resume rate. 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, physician(cardiology)re-ordered heparin gtt [...] daily.Start: 09-30-2019 heparin (porcine) injection 4,000 UnitsStart: 45-59-1844qolzomt (porcine) injection 2,000 Unitsheparin bolus from bag [...] hydrochloride 10 mg oral tablet (5 sources)AntihistamineStart: 98-85-0901sxij 10 mg by mouth three times daily as xqinsg73 mg, Oral, 3 TIMES DAILY PRN, Starting on Wed02/13/25 at 1850, Until Discontinued, AnxietyStart: 09-29-2019 End: 80-46-0408nzzw 25 mg by mouth three times daily as needed for eiytgqz74 mg, Oral, 3 TIMES DAILY PRN, Anxiety, Starting Wed09/29/19 at 1838Start: 09-29-2019 hydrOXYzine (ATARAX) tablet 25 mginsulin glargine 100 unt/ml injectable solution (20 sources)Insulin AnalogStart: 08-72-6145gumdeg 45 [IU] by subcutaneous injection once daily45 Units, SubCUTAneous, DAILY, First dose (after last modification) on Wed02/13/25 at 2315, Until DiscontinuedStart: 02-11-2025 End: 96-80-5490vifclr 30 [IU] by subcutaneous injection once daily30 Units, SubCUTAneous, DAILY, First dose (after last modification) on Wed02/11/25 at 1045, Until DiscontinuedStart: 99-93-2282Rrtpzyv Glargine, 2 Unit Dial, (TOUJEO MAX SOLOSTAR) 300 UNIT/ML SOPN 130 units am and 50 units pm 90 pen 5 12/05/2020 ActiveStart: 54-21-7106Jehmfjr Glargine, 2 Unit Dial, (TOUJEO MAX SOLOSTAR) 300 UNIT/ML SOPN Inject 130 Units into the skin daily 14 pen 3 04/04/2020 Active Start: 54-37-6745oogzlj 100 [IU] by subcutaneous injection twice zekzy171 Units, Subcutaneous, 2 TIMES DAILY, First dose on Wed09/29/19 at 2100 Substituted for Insulin glargine U-300 (TOUJEO SOLOSTAR).Start: 33-30-5638nljgxip glargine (LANTUS) injection vial 130 UnitsStart: 09-04-2019 End: 29-25-7605zrovnab glargine (LANTUS) injection vial 100 UnitsStart: 08-02-2018 End: 94-78-1579wylxzto glargine (TOUJEO MAX SOLOSTAR) 300 UNIT/ML injection pen Indications: Uncontrolled type 2 diabetes mellitus with hyperosmolarity without coma, with long-term current use of insulin (HCC) Inject 130 Units into the skin 2 times daily 10 pen 3 08/02/2018 10/07/2019 Discontinued (REORDER)iron sucrose (VENOFER) 300 mg in sodium chloride 0.9 % 250 mL IVPB (1 source)Start: 09-06-2019 End: 84-03-5739rsia sucrose (VENOFER) 300 mg in sodium chloride 0.9 % 250 mL IVPBiron sucrose (VENOFER) 300 mg in sodium chloride 0.9% (NS) 250 mL IVPB (1 source)Start: 06-16-2024 End: 64-89-1784229 mg, Intravenous, Administer over 1.5 Hours, Daily, First dose on Wed06/16/24 at 1500, For 3 doses1 ml LORazepam 2 mg/ml injection (5 sources)BenzodiazepineStart: 10-02-2019 End: 64-10-8294NPLxcgduu (ATIVAN) injection 1 mgStart: 09-28-2019 End: 80-62-5737VDVolrqtr (ATIVAN) tablet 0.5 mgStart: 41-53-6418DDUhmjrqk (ATIVAN) tablet 0.5 mgStart: 09-04-2019 End: 74-62-8688BEWabznvc (ATIVAN) injection 1 mgStart: 09-03-2019 End: 54-74-7204DYVrwszje (ATIVAN) injection 1 mgmagnesium hydroxide 80 mg/ml oral suspension (4 sources)Start: 19-81-3206anjz 30 mL by mouth once daily as needed for hxatapstvllu38 mL, Oral, DAILY PRN, Starting on Wed02/09/25 at 1745, Until Discontinued, Constipation, First line therapy for constipation.Start: 66-62-6566rxek 30 mL by mouth once daily as needed for tomjdhqkfsew21 mL, Oral, DAILY PRN, Constipation, Starting Wed09/29/19 at 1838 First line therapy for constipation.Start: 49-77-9787ynghknacl hydroxide (MILK OF MAGNESIA) 400 MG/5ML suspension 30 mL24 hr metoprolol succinate 25 mg extended release oral tablet (20 sources)beta-Adrenergic BlockerStart: 10-14-5639bbzj 100 mg by mouth twice mg, Oral, 2 times daily, First dose on Wed02/09/25 at 2100, Until Discontinued, Do not crush orchew.Start: 06-19-2024 End: 75-72-4000llav 1 tablet by mouth twice dailymetoprolol succinate (TOPROL- XL) 100 MG 24 hr tablet Take 1 (one) tablet (100 mg total) by mouth 2 (two) times a day . 60 tablet 11 06/22/2024 10:15 AM EDT 06/22/2024 SuspendedStart: 06-15-2024 End: 43-32-3663bmah 100 mg by mouth twice omgqz884 mg, Oral, 2 times daily, First dose on Wed06/15/24 at 2200Start: 51-56-7342laoy 100 mg by mouth twice hbjas904 mg, Oral, 2 TIMES DAILY, First dose on Wed09/29/19 at 2100Start: 89-19-9141puih 100 mg by mouth twice mg, Oral, 2 TIMES DAILY, First dose on Wed09/04/19 at 1145 Hold for SBP <110 or HR<60Start: 06-09-2019 End: 14-54-1054jwwd 1 tablet by mouth twice dailymetoprolol (LOPRESSOR) [...] or a MAP of less than 65mmHgStart: 91-89-9096adepwkxl (PF) injection 2 mg nitroglycerin 0.4 mg sublingual tablet (20 sources)Nitrate VasodilatorStart: 06-22-2024 End: 82-62-3119hbounIVJIVTOQ (NITROSTAT) 0.[address] 1 [...] capsule (20 sources)Proton Pump InhibitorStart: 04-14-2019 End: 43-82-1105ewou 1 capsule by mouth twice dailyomeprazole (PRILOSEC) 40 MG delayed release capsule TAKE 1 CAPSULE BY MOUTH 2 TIMES A DAY 180 capsule 1 04/11/2020 11/13/2024 Discontinued (REORDER)pantoprazole 40 mg delayed release oral tablet (20 sources)Proton Pump InhibitorStart: 09-50-1565dhxs 1 tablet by mouth twice dailypantoprazole (PROTONIX) 40 MG tablet Take 1 (one) tablet (40 mg total) by mouth 2 (two) times a day. 11/16/2024 SuspendedStart: 06-16-2024 End: 09-47-5560gwjz 40 mg by mouth once daily40 mg, Oral, Daily, First dose on Wed06/16/24 at 0900, DO NOT CRUSH OR CHEW.Start: 32-46-0469nawa 40 mg by mouth twice daily before ieeyqqjh23 mg, Oral, 2 TIMES DAILY BEFORE MEALS, First dose on Wed09/30/19 at 0700 Do not crush or break. Substituted for Omeprazole (PRILOSEC).Start: 36-72-1348upwf 40 mg by mouth once daily before mg, Oral, DAILY BEFORE BREAKFAST, First dose on Wed09/05/19 at 0700 Do not crush or break. Substituted for Omeprazole (PRILOSEC).perflutren lipid microspheres ([employer]) 0.143 mg/mL solution 0-10 mL of mixture [...] injection 0.4 mg (1 source)Start: 09-28-2019 End: 09-80-1158auvdktnpuqr (LEXISCAN) injection 0.4 mginsulin, regular, human 100 unt/ml injectable solution (3 sources)InsulinStart: 02-10-2025 End: 15-48-2233QzwUHGKrfdhn, 4 TIMES DAILY BEFORE MEALS & NIGHTLY, First dose on 02/10/25 at 1100, Patient to bolus using insulin pump based on current home settings for carbohydrates coverage and blood glucose correction.Start: 02-10-2025 End: 07-77-9106QtpRFSFgpoqk, DAILY, First dose on 02/10/25 at 1030, Total daily basal dose (total number of units/24 hours) provided by patient and/or query of insulin pump.Start: 09-28-2019 End: 09-80-4528anuiqhj regular (HUMULIN R;NOVOLIN R) injection 10 Units sennosides, long term 8.6 mg oral tablet (10 sources)Start: 06-15-2024 End: 38-59-0807Ltold: 09-06-2019 End: 13-55-5823jfsj 1 tablet by mouth once daily as needed for constipationsenna (SENOKOT) 8.6 MG tablet Take 1 tablet by mouth nightly as needed (constipation) 30 tablet 0 09/08/2019 10/07/2019 Discontinued (Stop Taking at Discharge)sodium bicarbonate 650 mg oral tablet (10 sources)Start: 44-96-2486ndcy 650 mg by mouth twice mg, Oral, 2 TIMES DAILY, First dose on Wed02/11/25 at 2100, Until DiscontinuedStart: 89-92-1117fgyp 1 tablet by mouth three times dailysodium bicarbonate 650 MG tablet Take 1 tablet by mouth 3 times daily 12/07/2023 Active5 ml sodium chloride 9 mg/ml injection (20 sources)Start: 81-93-3562UcdclBVWhfu, at 240 mL/hr, Administer over 10 Minutes, [...] Central Line = 20 mL/lumen, Recovery(Cath) Start: 43-62-3531AyoolAXSved, at 5-250 mL/hr, PRN, if patient receiving [...] For 12 hours, Dialysis HoldStart: 06-16-2024 End: 73-98-4549557 mL, Intravenous, As needed, hypotension management during hemodialysis, Starting on Wed06/19/24 at 0717, For 1 dose, Dialysis HoldStart: 10-05-2019 End: .9 % sodium chloride infusionStart: 10-02-2019 End: 10-03-20190.9 % sodium chloride infusionStart: 09-29-2019 End: 58-09-2027hkeqwb chloride flush 0.9 % injection 10 mLStart: 25-62-779633 mL, Intravenous, EVERY 12 HOURS SCHEDULED (2 times per day), First dose on Wed10/06/19 at 1045,Recovery(Cath)Start: 67-28-4132Xanxktquxuk, at 75 mL/hr, CONTINUOUS, Starting Ladonna 09/28/19 at 1315Start: 29-61-1735mkvp 10 mL intravenous route once10 mL, Intravenous, PRN, Line Care, Starting Wed10/06/19 at 1028 After every IV line use Recovery(Cath)Start: 09-28-2019 End: 09-28-20190.9 % sodium chloride bolusStart: 09-07-2019 End: 09-08-20190.9 % sodium chloride bolusStart: 09-05-2019 End: 09-07-20190.9 % sodium chloride infusionStart: 09-04-2019 End: 09-04-20190.9 % sodium chloride bolusStart: 91-37-9005unrsbs chloride flush 0.9 % injection 10 mLSUBCUTANEOUS INSULIN PUMP MISC (6 sources)SUBCUTANEOUS INSULIN PUMP MISC by Miscellaneous route . Active SUBCUTANEOUS INSULIN PUMP MISC by Miscellaneous route .SUBCUTANEOUS INSULIN PUMP MISC by Miscellaneous route . Suspendedsubcutaneous insulin pump Misc (1 source)Start: 06-21-2024 End: 70-73-3050Jjigttdqnlvhe, Continuous, Starting on Wed06/21/24 at 1045, Select [...] injection 10 millicurie (1 source)Start: 09-29-2019 End: 56-96-9887fspsrxsvzs sestamibi (CARDIOLITE) injection 10 millicurie technetium sestamibi (CARDIOLITE) injection 30 millicurie (1 source)Start: 09-29-2019 End: 71-36-6794pqjenssaib sestamibi (CARDIOLITE) injection 30 millicurie ticagrelor 90 mg oral tablet (20 sources)Start: 02-13-2025 End: 95-12-0929yvad 90 mg by mouth twice daily90 mg, Oral, 2 TIMES DAILY, First dose on Wed02/13/25 at 2100, Until Discontinued, ANTIPLATELET!Start: 03-01-2023 take 1 tablet by mouth twice dailyticagrelor (BRILINTA) 90 MG TABS tablet Indications: Coronary artery disease involving [place] coronary artery of 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 angina pectoris , Other pulmonary embolism without acute cor pulmo nale, unspecified chronicity (HCC) Take 1 tablet by mouth 2 times daily 180 tablet 1 03/01/2023 ActiveStart: 89-70-5129exid 1 tablet by mouth twice daily BRILINTA 90 MG TABS tablet Indications: Coronary artery disease involving [place] coronary artery ofnative heart without angina pectoris , Other pulmonary embolism without acute cor pulmonale, unspecified chronicity (HCC) TAKE 1 TABLET BY MOUTH 2 TIMES A DAY 180 tablet 1 09/24/2022 ActiveStart: 92-65-8664ogdq 1 tablet by mouth twice dailyticagrelor (BRILINTA) 90 MG TABS tablet Indications: Coronary artery disease involving [place] coronary artery of 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 angina pectoris , Other pulmonary embolism without acute cor pulmonale, unspecified chronicity (HCC) Take 1 tablet by mouth 2 times daily 180 tablet 1 03/05/2022 ActiveStart: 08-56-5551godp 1 tablet by mouth twice dailyticagrelor (BRILINTA) 90 MG TABS tablet Indications: Coronary artery disease involving [place] coronary artery of 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 angina pectoris , Other pulmonary embolism without acute cor pulmonale, unspecified chronicity (HCC) Take 1 tablet by mouth 2 times daily 180 tablet 1 05/30/2021 ActiveStart: 02-24-2021 take 1 tablet by mouth twice dailyticagrelor (BRILINTA) 90 MG TABS tablet Indications: Coronary artery disease involving mus[place] coronary artery of 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 angina pectoris , Other pulmonary embolism without acute cor pulmo nale, unspecified chronicity (HCC) Take 1 tablet by mouth 2 times daily 180 tablet 1 02/24/2021 ActiveStart: 69-08-0787twny 1 tablet by mouth twice daily ticagrelor (BRILINTA) 90 MG TABS tablet Indications: Coronary artery disease involving [place] coronary artery of 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 angina pectoris , Other pulmonary embolism without acute cor pulmonale, unspecified chronicity (HCC) Take 1 tablet by mouth 2 times daily 180 tablet 1 10/29/2020 ActiveStart: 07-74-1755hyka 1 tablet by mouth twice dailyticagrelor (BRILINTA) 90 MG TABS tablet Take 1 tablet by mouth 2 times daily 60 tablet 3 01/25/2020ActiveStart: 91-27-1089ytti 1 tablet by mouth twice dailyticagrelor (BRILINTA) 90 MG TABS tablet Take 1 tablet by mouth 2 times daily 60 tablet 3 10/07/2019Active triamcinolone acetonide 1 mg/ml topical cream (20 sources)CorticosteroidStart: 45-40-0392cwndeurbzhasy (KENALOG) 0.1 % cream Apply topically 2 (two) times a day as needed . 03/17/2024 SuspendedStart: 03-34-0723pbfjslrjcfxbu (KENALOG) 0.1 % cream Indications: Eczema, unspecified type Apply to the affected area 2 times a day. 80 g 1 03/17/2024 Active Problems Active Problems Problem ClassificationProblemDateDocumented DateEpisodic/ChronicAbdominal pain (2 sources)Unspecified abdominal pain; Translations: [Unspecified abdominal pain]Onset: 76-19-1841BfincibtPouwy and unspecified renal failure (1 source)Chronic renal failure; Translations: [Chronic renal failure, stage 3 (moderate) ([facility])]ChronicAcute myocardial infarction (17 sources)Myocardial infarction; Translations: [Non-ST elevation (NSTEMI) myocardial infarction]Onset: 989393-88-7578WuyldmgJwuwomc disorders (20 sources)Generalized anxiety disorder; Translations: [Generalized anxiety disorder]Onset: 782857-49-1888HjoydleRzttfbl kidney disease (20 sources)Chronic kidney disease stage 3; Translations: [CKD (chronic kidney disease) stage 3, GFR 30-59 ml/min]Onset: 465224-74-3031WftdanvQkrtvnlbjgt and hemorrhagic disorders (20 sources)Thrombocytopenic disorder; Translations: [Thrombocytopenia, unspecified]Onset: 389158-07-8707DhrvrioRtmxyiav atherosclerosis and other heart disease (20 sources)Coronary arteriosclerosis; Translations: [Coronary arteriosclerosis in [place] artery]Onset: 10-01-2011 Resolved: 047304-87-9481RrddscwYfbyilqh atherosclerosis and other heart disease (3 sources)Patient post percutaneous transluminal coronary angioplasty; Translations: [Coronary angioplasty status]Onset: 018096-03-8350Lzzeueqv Deficiency and other anemia (2 sources)Anemia in other chronic diseases classified elsewhere; Translations: [Anemia in other chronic diseases classified elsewhere]Onset: 93-10-0050Okdnbkh Deficiency and other anemia (1 source)Anemia; Translations: [Anemia due to other cause, not classified] EpisodicDiabetes mellitus with complications (20 sources)Type II diabetes mellitus uncontrolled; Translations: [Type 2 diabetes mellitus with diabetic chronic kidney disease]Onset: 10-11-2016 Resolved: 669657-97-7357YytsbnbDsndvjnq mellitus without complication (20 sources)Type 2 diabetes mellitus; Translations: [Type 2 diabetes mellitus without complication]Onset: 302936-95-1511FvgrftpTcyvikxrt of lipid metabolism (20 sources)Mixed hyperlipidemia; Translations: [Mixed hyperlipidemia]Onset: 136291-16-6582DdraynbVtcivolrzi disorders (20 sources)Gastroesophageal reflux disease; Translations: [Gastro-esophageal reflux disease without esophagitis]Onset: 897938-58-3039SfrgwofZsfeefgqi hypertension (20 sources)Benign essential hypertension; Translations: [Essential (primary) hypertension]Onset: 577984-68-2895WjgawvxOqcan and electrolyte disorders (2 sources)Hypo-osmolality and hyponatremia; Translations: [Hypo-osmolality and hyponatremia]Onset: 93-67-2157MvmpkgukRzlxf valve disorders (5 sources)Presence of prosthetic heart valve; Translations: [History of aortic valve replacement]Onset: 99-34-5757UehgjjyOmvlquq and fatigue (3 sources)Fatigue; Translations: [Other fatigue]EpisodicMultiple sclerosis (20 sources)Multiple sclerosis; Translations: [Multiple sclerosis]Onset: 261231-74-0853WqtkgwqUnbtlfeex of unspecified nature or uncertain behavior (20 sources)Carcinoid tumor of stomach; 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]Onset: 248340-66-8440UqbzcafaRgvwybhcohz deficiencies (20 sources)Vitamin D deficiency; Translations: [Vitamin D deficiency, unspecified]Onset: 12-73-8442DgkdwgiViposythyreskq (2 sources)Primary gonarthrosis, bilateral; Translations: [Bilateral primary osteoarthritis of knee]Onset: 864504-83-2666LgdkcftXpknu aftercare (20 sources)Long-term current use of anticoagulant; 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]Onset: 298502-86-4556PtffvhzyBbjiq and unspecified benign neoplasm (1 source)Benign stromal neoplasm of gastrointestinal tract; Translations: [Benign neoplasm of connective andother soft tissue of abdomen]03-27-2024 EpisodicOther and unspecified benign neoplasm (4 sources)Neuroendocrine tumor; Translations: [Other benign neuroendocrine tumors]Onset: 728039-51-8853NxgbmmqbLgkxr and unspecified benign neoplasm (20 sources)Neoplasm of stomach ; 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]Onset: 439937-83-8095IeexfnyoTnztj circulatory disease (6 sources)Inferior vena cava filter in situ; Translations: [Presence of other vascular implants and grafts]Onset: 991528-20-3681RcokcqhPheei lower respiratory disease (4 sources)Dyspnea; Translations: [Shortness of breath]EpisodicOther male genital disorders (20 sources)Acquired buried penis; 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]Onset: 652973-67-6071BxpdyujCvybh nutritional; endocrine; and metabolic disorders (20 sources)Morbid obesity; Translations: [Morbid (severe) obesity due to excess calories]Onset: 882994-02-5480UxkswyqIneymiphr heart disease (20 sources)H/O: pulmonary embolus; Translations: [Pulmonary embolism]Onset: 09-07-2012 Resolved: 935366-35-9614GoaulbztLqvjgbuu codes; unclassified (20 sources)Obstructive sleep apnea syndrome; Translations: [Obstructive sleep apnea (adult) (pediatric)]Onset: 873361-33-4960EdcjbgrJyqhvmea codes; unclassified (1 source)Body fluid retention; Translations: [Edema, unspecified]06-15-2024 EpisodicSecondary malignancies (20 sources)Secondary malignant neoplasm of liver; Translations: [Secondary malignant neoplasm of liver and intrahepatic bile duct]Onset: 05-25-2013 80-41-8711QhssuhcMxwfidkck malignancies (2 sources)Secondary malignant neoplasm of liver and intrahepatic bile duct; Translations: [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)]Onset: 61-20-6587TyvcxhgVzlj and subcutaneous tissue infections (2 sources)Cellulitis of abdominal wall ; Translations: [Cellulitis of abdominal wall]Onset: 927425-60-2256Isjiidud Past or Other Problems Problem ClassificationProblemDateDocumented DateEpisodic/ChronicAcute and unspecified renal failure (20 sources)Acute injury of kidney; Translations: [Acute kidney failure, unspecified]Onset: 09-05-2019 Resolved: 605281-59-9392IibdtobkOihlr and unspecified renal failure (20 sources)Acute injury of kidney; Translations: [REJI (acute kidney injury) (HCC)]Onset: 09-05-2019 Resolved: Acute posthemorrhagic anemia (20 sources)Acute posthemorrhagic anemia; Translations: [Acute posthemorrhagic anemia]Onset: 09-05-2019 Resolved: 765206-06-0866FtnbhmuwVokyrp of stomach (20 sources)Carcinoma of stomach; Translations: [Malignant neoplasm of stomach, unspecified]Onset: 10-11-2016 Resolved: 772136-16-7990AslrbipVetqafbkds and other anemia (20 sources)Iron deficiency anemia; Translations: [Iron deficiency anemia, unspecified]Onset: 774307-84-9437MlpxfambCspekdzgsy and other anemia (1 source)Other iron deficiency anemias; Translations: [Other iron deficiency anemias]Onset: 11-29-3463EbknlivmCurplngl mellitus without complication (1 source)Hyperglycemia; Translations: [Hyperglycemia]EpisodicGenitourinary symptoms and ill-defined conditions (20 sources)Poor stream of urine; Translations: [Acute retention of urine ] Onset: 04-08-2017 Resolved: 022735-44-7454FosdybbhVepj disorders (2 sources)Mood disordersOnset: 949084-81-2151Ptdudtdegjz chest pain (20 sources)Chest pain; Translations: [Chest pain, unspecified]Onset: 09-28-2019 Resolved: 202773-46-9769CyefyeiuOhhpc and unspecified benign neoplasm (5 sources)Benign carcinoid tumor of the stomach; 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)]Onset: 89-37-0818BplfdlknNnhco and unspecified benign neoplasm (2 sources)Other benign neuroendocrine tumors; Translations: [Benign carcinoid tumor of unknown primary site]Onset: 170744-03-7957FfxrcsrgZvyjg connective tissue disease (20 sources)Hematoma; Translations: [Other injury of unspecified body region, initial encounter]Onset: 09-04-2019 Resolved: 286118-77-1975WioydaeaQsaba connective tissue disease (20 sources)Subcutaneous hematoma; Translations: [Other injury of unspecified body region, initial encounter]Onset: 09-04-2019 Resolved: 318799-85-5525IarzbtslEteyf fractures (1 source)Closed fracture of fourth thoracic vertebra; Translations: [Closed fracture of fourth thoracic vertebra, unspecified fracture morphology, initial encounter ([facility])]EpisodicOther gastrointestinal disorders (6 sources)Swelling of inguinal region; Translations: [Other intra-abdominal and pelvic swelling, mass and lump]Onset: 959662-84-9696WruyjbpiMvaru lower respiratory disease (1 source)Shortness of breath; Translations: [Shortness of breath]Onset: 93-38-2756FcazbycbOqosz nervous system disorders (20 sources)Numbness; Translations: [Anesthesia of skin]Onset: 10-27-2018 50-98-4998EkftlhwpEpfsp upper respiratory infections (20 sources)Acute maxillary sinusitis; Translations: [Acute maxillary sinusitis, unspecified]Onset: 10-28-2018 Resolved: 692397-13-6406CztqyvunPtoscseuh; thrombophlebitis and thromboembolism (20 sources)Bilateral deep vein thrombosis of lower extremities; Translations: [Acute embolism and thrombosis of unspecified deep veins of lower extremity, bilateral]Onset: 06-14-2013 Resolved: 288034-48-9188XlvgwaamDrcpmkypl malignancies (20 sources)Secondary malignant neoplasm of retroperitoneal lymph nodes; Translations: [Secondary and unspecified malignant neoplasm of intra-abdominal lymph nodes]Onset: 05-25-2013 Resolved: 145621-72-1211PjhgexvLhbvhmxnkkwp (20 sources)Onset: 05-26-2018 Resolved: Results Test NameValueInterpretationReference RangeFacilityCBC WITH AUTO DIFFERENTIALon 54-44-5300KCMT NRBC0.0 %NormalMedina HospitalComment on above:Performed By: #### [id number] #### LAB [address] [address] Oskar Ballard M.D. [id number] NRBC ABS COUNT0.00 K/mcLNormal0.00-0.00Medina HospitalComment on above:Performed By: #### [id number] ####[facility] LAB [address] [address] Oskar Ballard M.D. [id number] ABSOLUTE COUNT0.03 K/mcLNormal0.00-0.30Medina HospitalComment on above:Performed By: #### [id number] #### LAB [address] [address] Oskar Ballard M.D. [id number]/100 WBC (Bld)0.2 %[facility] HospitalComment on above:Performed By: #### [id number] #### LAB [address] [address] Oskar Ballard M.D. [id number] (Bld) [#/Vol]0.20 10*3/uL Normal0.00-0.50[facility] HospitalComment on above:Performed By: #### [id number] #### LAB [address] [address] Oskar Ballard M.D. [id number]/100 WBC (Bld)1.6 %[facility] HospitalComment on above:Performed By: #### [id number] #### LAB [address] [address] Oskar Ballard M.D. [id number] distribution width (RBC) [Ratio]18.6 %High11.6-14.8[facility] HospitalComment on above:Performed By: #### [id number] #### LAB [address] [address] Oskar Ballard M.D. [id number] (Bld) [Volume fraction]27.0 %Low41.0-53.0Medina HospitalComment on above:Performed By: #### [id number] #### LAB [address] [address] Oskar Ballard M.D. [id number] (Bld) [Mass/Vol]8.1 g/dLLow13.5-17.5Medina HospitalComment on above:Performed By: #### [id number] #### LAB [address] [address] Oskar Ballard M.D. [id number] ABSOLUTE0.07 K/mcLNormal0.00-0.30[facility] Comment on above:Performed By: #### [id number] #### LAB [address] [address] Oskar Ballard M.D. [id number] PERCENT0.60 %[facility] HospitalComment on above:Result Comment: The IG parameter is the percentage of metamyelocytes, myelocytes and promyelocytes.An immature granulocyte count (IG) of 1% or more suggests the possibility of infection, an IG countof 3% is very likely related to an infection.Performed By: #### [id number] #### LAB [address] [address] Oskar Ballard M.D. [id number] (Bld) [#/Vol]0.38 10*3/uLLow0.90-4.00[facility] Comment on above:Performed By: #### [id number] #### LAB [address] [address] Oskar Ballard M.D. [id number]/100 WBC (Bld)3.0 %[facility] HospitalComment on above:Performed By: #### [id number] #### LAB [address] [address] Oskar Ballard M.D. [id number] (RBC) [Entitic mass]28.2 bvHbvrxm67.0-34.0[facility] Comment on above:Performed By: #### [id number] #### LAB [address] [address] Oskar Ballard M.D. [id number] (RBC) [Entitic vol]94.1 lUCiputg05.0-100.0Medina HospitalComment on above:Performed By: #### [id number] #### LAB [address] [address] Oskar Ballard M.D. [id number] CORPUSCULAR HEMOGLOBIN CONC30.0 g/dLLow31.0-37.0Medina HospitalComment on above:Performed By: #### [id number] #### LAB [address] [address] Oskar Ballard M.D. [id number] (Bld) [#/Vol]0.93 10*3/uLHigh0.30-0.90[facility] HospitalComment on above:Performed By: #### [id number] #### LAB [address] [address] Oskar Ballard M.D. [id number]/100 WBC (Bld)7.4 %[facility] HospitalComment on above:Performed By: #### [id number] #### LAB [address] [address] Oskar Ballard M.D. [id number] ABSOLUTE COUNT11.03 K/mcL High1.70-7.00Medina HospitalComment on above:Performed By: #### [id number] #### LAB [address] [address] Oskar Ballard M.D. [id number]/100 WBC (Bld)87.2 %[facility] HospitalComment on above:Performed By: #### [id number] #### LAB [address] [address] Oskar Ballard M.D. [id number] mean volume (Bld) [Entitic vol]9.3 fLLow9.4-12.4Medina HospitalComment on above:Performed By: #### [id number] #### LAB [address] [address] Oskar Ballard M.D. [id number] (Bld) [#/Vol]312 10*3/fQYrtvhg105-356Hdn[facility]awf Hospital Comment on above:Performed By: #### [id number] #### LAB [address] [address] Oskar Ballard M.D. [id number] (Bld) [#/Vol]2.87 10*6/uLLow4.50-5.90Med[facility] HospitalComment on above:Performed By: #### [id number] #### LAB [address] [place], [place] [address] Oskar Ballard M.D. [id number] (Bld) [#/Vol]12.64 10*3/uLHigh4.50-11.00Medina HospitalComment on above:Performed By: #### [id number] #### LAB [address] [place], [place] [address] Oskar Ballard M.D. [id number] COMPLETE W CONTRASTon 68-22-5868XYAERSQBDTZHZM COMPLETE W CONTRASTSummary 1. This study was [...] Provider: Zee Miranda Referring Physician: Gracie Miller Sales Host: Nyasia Hinkle RD, RVS Attending Physician: Melba Singh Patient Info Site Location: Exam Location: [facility] Name: Lorenzo Amato Age: 55 years [...] valve I35.0 - Nonrheumatic aortic (valve) stenosis [id number] BMI: 41.20 kg/m2 History/Risk Factors Hypertension: Yes Dyslipidemia: Yes Myocardial Infarction ([place]): Yes Renal Disease: Yes Coronary Artery Disease [...] VTI 12 cm PV (more content not included)...NormalMedina HospitalMAGNESIUM LEVELon 25-93-4864Cfyoowwav [Mass/Vol]1.9 mg/dLNormal1.6-2.4Medina HospitalComment on above:Performed By: #### [id number] #### LAB [address] [address] Oskar Ballard M.D. [id number] GLUCOSE - [facility] CENTERSon 44-64-8315Trfpojr [Mass/Vol]79 mg/uHOfvvmh54-08Xtyxdimlj HospitalGlucose [Mass/Vol]171 mg/dLHigh 65-99MOhio State Health SystemRENAL FUNCTION PANELon 09-51-6138Dfpastd [Mass/Vol]2.8 g/dLLow3.2-5.2MOhio State Health SystemCommymichigan medical center [place] on above:Order Comment: [facility] has implemented the eGFR calculation approach that does not have a coefficient for race that conforms to the NKF-ASN Task Force Recommendations.Performed By: #### [id number] ####[facility] LAB [address] [address] Oskar Ballard M.D. [id number] gap [Moles/Vol]22 mmol/L Dblv84-67Rsdtjdvhy HospitalCommymichigan medical center [place] on above:Order Comment: [facility] has implemented the eGFR calculation approach that does not have a coefficient for race that conforms to the NKF-ASN Task Force Recommendations. Performed By: #### [id number] #### LAB [address] [address] Oskar Ballard M.D. [id number] [Mass/Vol]8.5 mg/dLNormal8.4-10.2 [facility] on above:Order Comment: [facility] has implemented the eGFR calculation approach that does not have a coefficient for race that conforms to the NKF-ASN Task Force Recommendations.Performed By: #### [id number] #### LAB [address] [address] Oskar Ballard M.D. [id number] [Moles/Vol]89 mmol/PVgt72-137Fqonbfbwe[address] [place] [address] Comment on above:Order Comment: [facility] has implemented the eGFR calculation approach that does not have a coefficient for race that conforms to the NKF-ASN Task Force Recommendations.Performed By: #### [id number] #### LAB [address] [address] Oskar Ballard M.D. [id number] [Mass/Vol]7.29 mg/dLWebster County Memorial Hospital0.50-1.30[facility] on above:Order Comment: [facility] has implemented the eGFR calculation approach that does not have a coefficient for race that conforms to the NKF-ASN Task Force Recommendations.Performed By: #### [id number] #### LAB [address] [address] Oskar Ballard M.D. [id number] mL/min/1.73 m2Low>=60[facility] on above:Order Comment: [facility] has implemented the eGFR calculation approach that does not have a coefficient for race that conforms to the NKF-ASN Task Force Recommendations.Result Comment: Estimated GFR was calculated using the 2020 CKD-EPI creatinine equation.Performed By: #### [id number] ####[facility] LAB [address] [address] Oskar Ballard M.D. [id number] [Mass/Vol]110 mg/wUNzlt15-28Ngjenipcl[address] on above:Order Comment: [facility] has implemented the eGFR calculation approach that does not have a coefficient for race that conforms to the NKF-ASN Task Force Recommendations.Performed By: #### [id number] #### LAB [address] [address] Oskar Ballard M.D. [id number] (Bld) [Moles/Vol] 23 mmol/MWdszhz26-45Awnwbdypm HospitalComment on above:Order Comment: [facility] has implemented the eGFR calculation approach that does not have a coefficient for race that conforms to the NKF-ASN Task Force Recommendations.Performed By: #### [id number] #### LAB [address] [address] Oskar Ballard M.D. [id number] [Mass/Vol]8.3 mg/dLHigh 2.7-4.5Medina HospitalComment on above:Order Comment: [facility] has implemented the eGFR calculation approach that does not have a coefficient for race that conforms to the NKF-ASN Task Force Recommendations. Performed By: #### [id number] #### LAB [address] [address] Oskar Ballard M.D. [id number] [Moles/Vol]3.4 mmol/LLow3.5-5.1 [facility] on above:Order Comment: [facility] has implemented the eGFR calculation approach that does not have a coefficient for race that conforms to the NKF-ASN Task Force Recommendations.Performed By: #### [id number] #### LAB [address] [address] Oskar Ballard M.D. [id number] [Moles/Vol]131 mmol/HAhk995-610Zjbmvdrgs Hospital Comment on above:Order Comment: [facility] has implemented the eGFR calculation approach that does not have a coefficient for race that conforms to the NKF-ASN Task Force Recommendations.Performed By: #### [id number] #### LAB [address] [address] Oskar Ballard M.D. [id number] nitrogen [Mass/Vol]45 mg/dLHigh8-25Medina HospitalComment on above:Order Comment: [facility] has implemented the eGFR calculation approach that does not have a coefficient for race that conforms to the NKF-ASN Task Force Recommendations.Performed By: #### [id number] #### LAB [address] [place], [place] [address] Oskar Ballard M.D. [id number] nitrogen/Creatinine [Mass ratio]6.2 mg/mgLow10.0-20.0Medina HospitalComment on above:Order Comment: [facility] has implemented the eGFR calculation approach that does not have a coefficient for race that conforms to the NKF-ASN Task Force Recommendations.Performed By: #### [id number] #### LAB [address] [place], [place] [address] Oskar Ballard M.D. [id number] 70-17-1087qECQ Coag (Bld) [Time]71 uStnc56-28Hrgcnmore HospitalComment on above: Order Comment: Therapeutic range for APTT's is 68 - 104 secondsPerformed By: #### [id number] #### [facility] [address] [place], [place] [address] Lobo Albrecht M.D. [id number] 56-72-0302TCQH NRBC0.0 %NormalMedina HospitalComment on above:Order Comment: While on heparinPerformed By: #### [id number] #### [facility] [address] [place], [place] [address] Lobo Albrecht M.D. [id number] NRBC ABS COUNT0.00 K/mcLNormal0.00-0.00Medina HospitalComment on above:Order Comment: While on heparinPerformed By: #### [id number] #### [facility] [address] [place] [address] Lobo Albrecht M.D. [id number] distribution width (RBC) [Ratio]18.6 %High11.6-14.8 Med[facility] HospitalComment on above:Order Comment: While on heparinPerformed By: #### [id number] #### [facility] [address] [place], [place] [address] Lobo Albrecht M.D. [id number] (Bld) [Volume fraction]29.0 %Low41.0-53.0[facility] Comment on above:Order Comment: While on heparinPerformed By: #### [id number] #### [facility] [address] [place] [address] Lobo Albrecht M.D. [id number] (Bld) [Mass/Vol]8.3 g/dLLow13.5-17.5[facility] Comment on above:Order Comment: While on heparinPerformed By: #### [id number] #### [facility] [address] [place] [address] Lobo Albrecht M.D. [id number] (RBC) [Entitic mass]27.9 hpFfiqrq55.0-34.0[facility] Comment on above:Order Comment: While on heparinPerformed By: #### [id number] #### [facility] [address] [place], [place] [address] Lobo Albrecht M.D. [id number] (RBC) [Entitic vol]97.3 aRCuucte97.0-100.0[facility] Comment on above:Order Comment: While on heparinPerformed By: #### [id number] #### [facility] [address] [place], [place] [address] Lobo Albrecht M.D. [id number] CORPUSCULAR HEMOGLOBIN CONC28.6 g/dLLow31.0-37.0Medina HospitalComment on above:Order Comment: While on heparinPerformed By: #### [id number] #### [facility] [address] [place], [place] [address] Lobo Albrecht M.D. [id number] mean volume (Bld) [Entitic vol]9.6 fLNormal9.4-12.4[facility] HospitalComment on above:Order Comment: While on heparinPerformed By: #### [id number] #### [facility] [address] [place] [address] Lobo Albrecht M.D. [id number] (Bld) [#/Vol]331 10*3/hUQmqphh885-593Aocksgpct Hospital Comment on above:Order Comment: While on heparinPerformed By: #### [id number] #### [facility] [address] [place], [place] [address] Lobo Albrecht M.D. [id number] (Bld) [#/Vol]2.98 10*6/uLLow4.50-5.90Med[facility] HospitalComment on above:Order Comment: While on heparinPerformed By: #### [id number] #### [facility] [address] [place], [place] [address] Lobo Albrecht M.D. [id number] (Bld) [#/Vol]13.90 10*3/uLHigh4.50-11.00[facility] HospitalComment on above:Order Comment: While on heparinPerformed By: #### [id number] #### [facility] [address] [place], [place] [address] Lobo Albrecht M.D. [id number] WITH AUTO DIFFERENTIALon 28-14-1944GULM NRBC0.0 %[facility] HospitalComment on above:Performed By: #### [id number] ####[facility] [address] [address] Oskar Ballard M.D. [id number] NRBC ABS COUNT 0.00 K/mcLNormal0.00-0.00Medina HospitalComment on above:Performed By: #### [id number] #### LAB [address] [address] Oskar Ballard M.D. [id number] ABSOLUTE COUNT0.05 K/mcLNormal0.00-0.30Medina HospitalComment on above:Performed By: #### [id number] #### LAB [address] [address] Oskar Ballard M.D. [id number]/100 WBC (Bld)0.4 %[facility] HospitalComment on above:Performed By: #### [id number] #### LAB [address] [address] Oskar Ballard M.D. [id number] (Bld) [#/Vol]0.36 10*3/uLNormal0.00-0.50[facility] Comment on above:Performed By: #### [id number] #### LAB [address] [address] Oskar Ballard M.D. [id number]/100 WBC (Bld)3.1 %[facility] HospitalComment on above:Performed By: #### [id number] #### LAB [address] [address] Oskar Ballard M.D. [id number] distribution width (RBC) [Ratio]18.6 %High11.6-14.8 [facility] HospitalComment on above:Performed By: #### [id number] #### LAB [address] [address] Oskar Ballard M.D. [id number] Hematocrit (Bld) [Volume fraction]29.2 %Low41.0-53.0Medina HospitalComment on above:Performed By: #### [id number] #### LAB [address] [address] Oskar Ballard M.D. [id number] (Bld) [Mass/Vol]8.6 g/dLLow 13.5-17.5Medina HospitalComment on above:Performed By: #### [id number] #### LAB [address] [address] Oskar Ballard M.D. [id number] IG ABSOLUTE0.08 K/mcLNormal0.00-0.30[facility]ina HospitalComment on above:Performed By: #### [id number] #### LAB [address] [address] Oskar Ballard M.D. [id number] PERCENT0.70 %[facility] HospitalComment on above:Result Comment: The IG parameter is the percentage of metamyelocytes, myelocytes and promyelocytes.An immature granulocyte count (IG) of 1% or more suggests the possibility of infection, an IG countof 3% is very likely related to an infection.Performed By: #### [id number] #### LAB [address] [place] [address] Oskar Ballard M.D. [id number] (Bld) [#/Vol]0.48 10*3/uLLow0.90-4.00Medina HospitalComment on above:Performed By: #### [id number] #### LAB [address] [address] Oskar Ballard M.D. [id number]/100 WBC (Bld)4.1 %[facility] Comment on above:Performed By: #### [id number] #### LAB [address] [address] Osakr Ballard M.D. [id number] (RBC) [Entitic mass]28.3 uhUgdrhx92.0-34.0Medina HospitalComment on above:Performed By: #### [id number] #### LAB [address] [address] Oskar Ballard M.D. [id number] (RBC) [Entitic vol]96.1 eCZmtsbb09.0-100.0[facility] Comment on above:Performed By: #### [id number] #### LAB [address] [address] Oskar Ballard M.D. [id number] CORPUSCULAR HEMOGLOBIN CONC29.5 g/dLLow31.0-37.0Medina HospitalComment on above:Performed By: #### [id number] #### LAB [address] [address] Oskar Ballard M.D. [id number] (Bld) [#/Vol]0.65 10*3/uLNormal0.30-0.90 [facility] on above:Performed By: #### [id number] #### LAB [address] [address] Oskar Ballard M.D. [id number] Monocytes/100 WBC (Bld)5.6 %[facility] HospitalCommymichigan [facility] on above:Performed By: #### [id number] #### LAB [address] [address] Oskar Ballard M.D. [id number] ABSOLUTE COUNT10.05 K/mcLHigh1.70-7.00 [facility] on above:Performed By: #### [id number] #### LAB [address] [address] Oskar Ballard M.D. [id number] Neutrophils/100 WBC (Bld)86.1 %[facility] HospitalCommymichigan medical [facility] [place] on above: Performed By: #### [id number] #### LAB [address] [address] Oskar Ballard M.D. [id number] mean volume (Bld) [Entitic vol]9.7 fLNormal9.4-12.4[facility] HospitalCommymichigan medical [facility] [place] on above:Performed By: #### [id number] #### LAB [address] [address] Oskar Ballard M.D. [id number] (Bld) [#/Vol]377 10*3/rCIveavq537-213[facility] Comment on above:Performed By: #### [id number] #### LAB [address] [place], [place] [address] Oskar Ballard M.D. [id number] ([facility]) [#/Vol]3.04 10*6/uLLow4.50-5.90Medina HospitalComment on above:Performed By: #### [id number] #### LAB [address] [place], [place] [address] Oskar Ballard M.D. [id number] (d) [#/Vol]11.67 10*3/uLHigh4.50-11.00Medina HospitalComment on above:Performed By: #### [id number] #### LAB [address] [place], [place] [address] Oskar Ballard M.D. [id number] LIMITEDon 09-26-2025 ECHOCARDIOGRAM LIMITEDSummary 1. Limited Doppler [...] Gracie Miller Reading Physician: Anita Barahona MD Sales Host: Radha Boss RDCS Attending Physician: [facility] Patient Info Site Location: Exam Location: [facility] Name: Lorenzo Amato Age: 55 years : 1970 Gender: Male Ht: 175 cm Wt: 129 kg BSA: 2.57 m2 HR: 101 bpm BP: 92 / 59 mmHg Technical Quality: Good Exam Date: 09/26/2025 6:59 AM Patient Status: INPATIENT Exam Type: ECHOCARDIOGRAM LIMITED Study Info Indications Z95.2 - Presence of prosthetic heart valve [id number] BMI: 42.09 kg/m2 History/Risk Factors Hypertension: Yes [...] by Anita Barahona MD on 09/26/2025 02:20 [facility] MAGNESIUM LEVELon 12-30-1598Gaowojxbk [Mass/Vol]1.9 mg/dLNormal1.6-2.4Medina HospitalComment on above:Performed By: #### [id number] #### LAB [address] [facility] [place], [place] [address] Oskar Ballard M.D. [id number] NOTEon 42-67-2972OY NOTEDate of service 09/26/2025 SURGEON Kike Kim MD Co-surgeon Melba Singh MD ENERGY CONSERVATION ENGINEER Blake Ríos MD PREOPERATIVE DIAGNOSIS Severe symptomatic aortic stenosis. POSTOPERATIVE DIAGNOSIS Same PROCEDURE PERFORMED Percutaneous right transfemoral transcatheter aortic valve replacement with 29 Med[employer]onic device ANESTHESIA Local with sedation. No qualified university president available to assist. Due to the complexity [...] the operating theater, placed supine on the chemistry lab instructor table, induced under state of conscious sedation. [...] condition. AUTHENTICATED BY KIKE KIM ON 09/26/2025 14:04:18[facility] POC GLUCOSE - [facility] 61-82-0514Uluwqez [Mass/Vol]325 mg/uLAxhp44-09Ctqzrhlft[address] [place], [place] [address]Glucose [Mass/Vol]297 mg/gTOlbr29-37Frzajsuis82 [address] StreetGlucose [Mass/Vol] 211 mg/kWYhcn95-45Qayhnpuex82 [address] StreetGlucose [Mass/Vol]133 mg/cTNedq73-99[address]Glucose [Mass/Vol]96 mg/cMWndzux40-69Eulxypsyl06 [address] StreetGlucose [Mass/Vol]65 mg/iYJadrkv85-72Kmqncopla67 [address] StreetGlucose [Mass/Vol]62 mg/dLLow [address] [place], [place] [address]Glucose [Mass/Vol]109 mg/bGAqao93-93Jvqiuniax[address] Glucose [Mass/Vol]71 mg/uABuigai90-60Rqgesazle31 [address] StreetGlucose [Mass/Vol]86 mg/lAZegumz07-01Jbvqehnig31 [address] StreetGlucose [Mass/Vol]63 mg/pSHao33-73Kcvjmxgjj84 [address] StreetGlucose [Mass/Vol]100 mg/pTMxkp02-74Uolbhedxn82 [address] StreetGlucose [Mass/Vol] 178 mg/bBPxwj95-37Erhysykdv82 [address] StreetRENAL FUNCTION PANELon 03-92-2090Ynlqfyx [Mass/Vol]3.0 g/dLLow3.2-5.2MOhio State Health SystemComment on above:Order Comment: [facility] has implemented the eGFR calculation approach that does not have a coefficient for race that conforms to the NKF-ASN Task Force Recommendations.Performed By: #### [id number] #### LAB [address] [address] Oskar Ballard M.D. [id number] gap [Moles/Vol] 27 mmol/WEtlf64-18OyhvhjufiCleveland Clinic [facility]mount Hospital on above:Order Comment: [facility] has implemented the eGFR calculation approach that does not have a coefficient for race that conforms to the NKF-ASN Task Force Recommendations.Performed By: #### [id number] #### LAB [address] [address] Oskar Ballard M.D. [id number] [Mass/Vol]8.8 mg/dLNormal 8.4-10.2MPaulding County Hospital on above:Order Comment: [facility] has implemented the eGFR calculation approach that does not have a coefficient for race that conforms to the NKF-ASN Task Force Recommendations. Performed By: #### [id number] #### LAB [address] [address] Oskar Ballard M.D. [id number] [Moles/Vol]89 mmol/HUyv17-956 [facility] on above:Order Comment: [facility] has implemented the eGFR calculation approach that does not have a coefficient for race that conforms to the NKF-ASN Task Force Recommendations.Performed By: #### [id number] #### LAB [address] [address] Oskar Ballard M.D. [id number] [Mass/Vol]7.38 mg/dLHigh0.50-1.30[facility] on above:Order Comment: [facility] has implemented the eGFR calculation approach that does not have a coefficient for race that conforms to the NKF-ASN Task Force Recommendations.Performed By: #### [id number] #### LAB [address] [address] Oskar Ballard M.D. [id number] mL/min/1.73 m2Low>=60[facility]field HospitalComment on above: Order Comment: [facility] has implemented the eGFR calculation approach that does not have a coefficient for race that conforms to the NKF-ASN Task Force Recommendations.Result Comment: Estimated GFR was calculated using the 2020 CKD-EPI creatinine equation.Performed By: #### [id number] ####[facility] LAB [address] [address] Oskar Ballard M.D. [id number] [Mass/Vol]134 mg/wOBjlt89-06Eogkkccsv[address] [place] [address] on above:Order Comment: [facility] has implemented the eGFR calculation approach that does not have a coefficient for race that conforms to the NKF-ASN Task Force Recommendations.Performed By: #### [id number] #### LAB [address] [address] Oskar Ballard M.D. [id number] (Bld) [Moles/Vol]22 mmol/PRswrpv35-09RdcqpssjcCleveland Clinic Marymount Hospital on above:Order Comment: [facility] has implemented the eGFR calculation approach that does not have a coefficient for race that conforms to the NKF-ASN Task Force Recommendations.Performed By: #### [id number] #### LAB [address] [address] Oskar Ballard M.D. [id number] [Mass/Vol] 8.3 mg/dLWebster County Memorial Hospital2.7-4.5[facility] on above:Order Comment: [facility] has implemented the eGFR calculation approach that does not have a coefficient for race that conforms to the NKF-ASN Task Force Recommendations.Performed By: #### [id number] ####MH LAB [address] [address] Oskar Ballard M.D. [id number] [Moles/Vol]3.5 mmol/L Normal3.5-5.1MPaulding County Hospital on above:Order Comment: [facility] has implemented the eGFR calculation approach that does not have a coefficient for race that conforms to the NKF-ASN Task Force Recommendations.Performed By: #### [id number] #### LAB [address] [address] Oskar Ballard M.D. [id number] [Moles/Vol]134 mmol/LLow 135-145[facility] on above:Order Comment: [facility] has implemented the eGFR calculation approach that does not have a coefficient for race that conforms to the NKF-ASN Task Force Recommendations. Performed By: #### [id number] #### LAB [address] [address] Oskar Ballard M.D. [id number] nitrogen [Mass/Vol]46 mg/dLHigh8-25 [facility] on above:Order Comment: [facility] has implemented the eGFR calculation approach that does not have a coefficient for race that conforms to the NKF-ASN Task Force Recommendations.Performed By: #### [id number] #### LAB [address] [address] Oskar Ballard M.D. [id number] nitrogen/Creatinine [Mass ratio]6.2 mg/mgLow10.0-20.0 [facility] on above:Order Comment: [facility] has implemented the eGFR calculation approach that does not have a coefficient for race that conforms to the NKF-ASN Task Force Recommendations.Performed By: #### [id number] #### LAB [address] [address] Oskar Ballard M.D. [id number] AORTIC VALVE REPLACEMENTon 09-26-2025 TRANSCATHETER AORTIC VALVE [...] complexity,Blake Ríos MD was utilized as my surgery assistant Recommendations: Continue medical therapy Aggressive HD for [...] none. . A second valve was not required.[facility] HospitalAPTT HEPARIN COVERAGEon 46-32-0549aPET Coag (Bld) [Time]72 [address] StreetComment on above: Order Comment: Therapeutic range for APTT's is 68 - 104 secondsPerformed By: #### [id number] #### LAB [address] [address] Oskar Ballard M.D. [id number] Coag (Bld) [Time][address] Comment on above:Order Comment: Therapeutic range for APTT's is 68 - 104 seconds Performed By: #### [id number] #### [facility] LAB [address] [place] [address] Lobo Albrecht M.D. [id number] WITH AUTO DIFFERENTIALon 34-87-0620VYAL NRBC0.2 %[facility] HospitalComment on above:Performed By: #### [id number] #### LAB [address] [place] [address] Oskar Ballard M.D. [id number] NRBC ABS COUNT0.02 K/mcLHigh0.00-0.00Medina HospitalComment on above:Performed By: #### [id number] #### LAB [address] [address] Oskar Ballard M.D. [id number] ABSOLUTE COUNT0.04 K/mcLNormal0.00-0.30[facility] Comment on above:Performed By: #### [id number] #### LAB [address] [address] Oskar Ballard M.D. [id number]/100 WBC (Bld)0.4 %[facility] HospitalComment on above: Performed By: #### [id number] #### [facility] LAB [address] [address] Oskar Ballard M.D. [id number] (Bld) [#/Vol]0.28 10*3/uLNormal0.00-0.50[facility] Comment on above:Performed By: #### [id number] #### LAB [address] [address] Oskar Ballard M.D. [id number]/100 WBC (Bld)2.8 %[facility] HospitalComment on above:Performed By: #### [id number] #### LAB [address] [address] Oskar Ballard M.D. [id number] distribution width (RBC) [Ratio]18.4 %High11.6-14.8 [facility] HospitalComment on above:Performed By: #### [id number] #### LAB [address] [address] Oskar Ballard M.D. [id number] (Bld) [Volume fraction]27.8 %Low41.0-53.0[facility] Comment on above:Performed By: #### [id number] #### LAB [address] [address] Oskar Ballard M.D. [id number] (Bld) [Mass/Vol]8.0 g/dLLow13.5-17.5[facility] Comment on above:Performed By: #### [id number] #### LAB [address] [address] Oskar Ballard M.D. [id number] ABSOLUTE0.05 K/mcLNormal0.00-0.30[facility]ina HospitalComment on above:Performed By: #### [id number] #### LAB [address] [address] Oskar Ballard M.D. [id number] PERCENT0.50 %[facility] HospitalComment on above:Result Comment: The IG parameter is the percentage of metamyelocytes, myelocytes and promyelocytes.An immature granulocyte count (IG) of 1% or more suggests the possibility of infection, an IG countof 3% is very likely related to an infection.Performed By: #### [id number] #### LAB [address] [address] Oskar Ballard M.D. [id number] (Bld) [#/Vol]0.39 10*3/uLLow0.90-4.00[facility] Comment on above:Performed By: #### [id number] #### LAB [address] [address] Oskar Ballard M.D. [id number]/100 WBC (Bld)3.9 %[facility] HospitalComment on above:Performed By: #### [id number] #### LAB [address] [address] Oskar Ballard M.D. [id number] (RBC) [Entitic mass]27.7 moPhuvrc07.0-34.0[facility] Comment on above:Performed By: #### [id number] #### LAB [address] [address] Oskar Ballard M.D. [id number] (RBC) [Entitic vol]96.2 nFHwwodb75.0-100.0[facility] Comment on above:Performed By: #### [id number] #### LAB [address] [address] Oskar Ballard M.D. [id number] CORPUSCULAR HEMOGLOBIN CONC28.8 g/dLLow31.0-37.0Medina HospitalComment on above:Performed By: #### [id number] #### LAB [address] [address] Oskar Ballard M.D. [id number] (Bld) [#/Vol]0.66 10*3/uLNormal0.30-0.90[facility] Comment on above:Performed By: #### [id number] #### LAB [address] [address] Oskar Ballard M.D. [id number]/100 WBC (Bld)6.6 %[facility] HospitalComment on above: Performed By: #### [id number] #### LAB [address] [address] Oskar Ballard M.D. [id number] ABSOLUTE COUNT8.54 K/mcLHigh1.70-7.00[facility] Comment on above:Performed By: #### [id number] #### LAB [address] [address] Oskar Ballard M.D. [id number]/100 WBC (Bld)85.8 %[facility] HospitalComment on above:Performed By: #### [id number] #### LAB [address] [address] Oskar Ballard M.D. [id number] mean volume (Bld) [Entitic vol]9.5 fLNormal9.4-12.4Med[facility] HospitalComment on above:Performed By: #### [id number] #### LAB [address] [address] Oskar Ballard M.D. [id number] (Bld) [#/Vol]326 10*3/wTByakau328-576Dzxhpyrsy Hospital Comment on above:Performed By: #### [id number] #### LAB [address] [address] Oskar Ballard M.D. [id number] (Bld) [#/Vol]2.89 10*6/uLLow4.50-5.90[facility] HospitalComment on above:Performed By: #### [id number] #### LAB [address] [address] Oskar Ballard M.D. [id number] (Bld) [#/Vol]9.96 10*3/uLNormal4.50-11.00Med[facility] HospitalComment on above:Performed By: #### [id number] #### LAB [address] [address] Oskar Ballard M.D. [id number] LEVELon 98-05-9106Rgwerrozh [Mass/Vol]1.8 mg/dLNormal1.6-2.4 [facility] HospitalComment on above:Performed By: #### [id number] #### LAB [address] [address] Oskar Ballard M.D. [id number] GLUCOSE - [facility]ERSon 58-98-8356Petmvef [Mass/Vol]163 mg/eLIuzl46-36Lltggwnvw HospitalGlucose [Mass/Vol]144 mg/vDAjai51-37Xnghkodvb HospitalGlucose [Mass/Vol] 99 mg/aMMkjdoy24-97Dbgklmilf HospitalGlucose [Mass/Vol]238 mg/yQWvhj26-46 [facility] HospitalGlucose [Mass/Vol]230 mg/nBXank62-84Zebxgpecf82 [address] StreetRENAL FUNCTION PANELon 32-11-9107Xzlxjyc [Mass/Vol]3.0 g/dLLow3.2-5.2MOhio State Health SystemComment on above:Order Comment: Injury/Trauma or Illness?:Illness/Other How long have you had these symptoms (acute/chronic)?:Acute Reason for exam?:Abdominal pain, acute, nonlocalized, Peritonitis or perforation suspected, Sepsis,Per nephrology concerning for EPS Type of Exam?:Initial Additional signs and symptoms?:SOBPerformed By: #### [id number] #### LAB [address] [address] Oskar Ballard M.D. [id number] gap [Moles/Vol]23 mmol/SFpdb61-26Yatvmevck HospitalComment on above:Order Comment: Injury/Trauma or Illness?:Illness/Other How long have you had these symptoms (acute/chronic)?:Acute Reason for exam?:Abdominal pain, acute, nonlocalized, Peritonitis or perforation suspected, Sepsis,Per nephrology concerning for EPS Type of Exam?:Initial Additional signs and symptoms?:SOBPerformed By: #### [id number] #### LAB [address] [address] Oskar Ballard M.D. [id number] [Mass/Vol]8.4 mg/dLNormal8.4-10.2MOhio State Health SystemCommymichigan medical center [place] on above:Order Comment: Injury/Trauma or Illness?:Illness/Other How long have you had these symptoms (acute/chronic)?:Acute Reason for exam?:Abdominal pain, acute, nonlocalized, Peritonitis or perforation suspected, Sepsis,Per nephrology concerning for EPS Type of Exam?:Initial Additional signs and symptoms?:SOBPerformed By: #### [id number] #### LAB [address] [address] Oskar Ballard M.D. [id number] [Moles/Vol]88 mmol/WZso96-703Miihttecw HospitalComment on above:Order Comment: Injury/Trauma or Illness?:Illness/Other How long have you had these symptoms (acute/chronic)?:Acute Reason for exam?:Abdominal pain, acute, nonlocalized, Peritonitis or perforation suspected, Sepsis,Per nephrology concerning for EPS Type of Exam?:Initial Additional signs and symptoms?:SOBPerformed By: #### [id number] #### LAB [address] [address] Oskar Ballard M.D. [id number] Creatinine [Mass/Vol]7.39 mg/dLHigh0.50-1.30[facility] HospitalCommymichigan medical center [place] on above: Order Comment: Injury/Trauma or Illness?:Illness/Other How long have you had these symptoms (acute/chronic)?:Acute Reason for exam?:Abdominal pain, acute, nonlocalized, Peritonitis or perforation suspected, Sepsis,Per nephrology concerning for EPS Type of Exam?:Initial Additional signs and symptoms?:SOBPerformed By: #### [id number] #### LAB [address] [address] Oskar Ballard M.D. [id number] mL/min/1.73 m2Low>=60[facility] HospitalCommymichigan medical center [place] on above:Order Comment: Injury/Trauma or Illness?:Illness/Other How long have you had these symptoms (acute/chronic)?:Acute Reason for exam?:Abdominal pain, acute, nonlocalized, Peritonitis or perforation suspected, Sepsis,Per nephrology concerning for EPS Type of Exam?:Initial Additional signs and symptoms?:SOBResult Comment: Estimated GFR was calculated using the 2020 CKD-EPI creatinine equation.Performed By: #### [id number] #### LAB [address] [address] Oskar Ballard M.D. [id number] Glucose [Mass/Vol]246 mg/oXUkbm19-40Zqvliimmh[address] on above:Order Comment: Injury/Trauma or Illness?:Illness/Other How long have you had these symptoms (acute/chronic)?:Acute Reason for exam?:Abdominal pain, acute, nonlocalized, Peritonitis or perforation suspected, Sepsis,Per nephrology concerning for EPS Type of Exam?:Initial Additional signs and symptoms?:SOBPerformed By: #### [id number] ####[facility] LAB [address] [address] Oskar Ballard M.D. [id number] (Bld) [Moles/Vol]24 mmol/DJtinat38-24JloakevofCleveland Clinic Marymount Hospital on above:Order Comment: Injury/Trauma or Illness?:Illness/Other How long have you had these symptoms (acute/chronic)?:Acute Reason for exam?:Abdominal pain, acute, nonlocalized, Peritonitis or perforation suspected, Sepsis,Per nephrology concerning for EPS Type of Exam?:Initial Additional signs and symptoms?:SOBPerformed By: #### [id number] #### LAB [address] [address] Oskar Ballard M.D. [id number] [Mass/Vol]8.8 mg/dLWebster County Memorial Hospital2.7-4.5[facility] HospitalCommymichigan medical center [place] on above:Order Comment: Injury/Trauma or Illness?:Illness/Other How long have you had these symptoms (acute/chronic)?:Acute Reason for exam?:Abdominal pain, acute, nonlocalized, Peritonitis or perforation suspected, Sepsis,Per nephrology concerning for EPS Type of Exam?:Initial Additional signs and symptoms?:SOBPerformed By: #### [id number] #### LAB [address] [address] Oskar Ballard M.D. [id number] [Moles/Vol]3.6 mmol/LNormal3.5-5.[address] [place] [address] on above:Order Comment: Injury/Trauma or Illness?:Illness/Other How long have you had these symptoms (acute/chronic)?:Acute Reason for exam?:Abdominal pain, acute, nonlocalized, Peritonitis or perforation suspected, Sepsis,Per nephrology concerning for EPS Type of Exam?:Initial Additional signs and symptoms?:SOBPerformed By: #### [id number] #### LAB [address] [address] Oskar Ballard M.D. [id number] [Moles/Vol]131 mmol/PNwq200-492AiklvzfwzCleveland Clinic Marymount Hospital on above:Order Comment: Injury/Trauma or Illness?:Illness/Other How long have you had these symptoms (acute/chronic)?:Acute Reason for exam?:Abdominal pain, acute, nonlocalized, Peritonitis or perforation suspected, Sepsis,Per nephrology concerning for EPS Type of Exam?:Initial Additional signs and symptoms?:SOBPerformed By: #### [id number] #### LAB [address] [address] Oskar Ballard M.D. [id number] nitrogen [Mass/Vol]51 mg/dL65 [address] StreetCommymichigan medical center [place] on above:Order Comment: Injury/Trauma or Illness?:Illness/Other How long have you had these symptoms (acute/chronic)?:Acute Reason for exam?:Abdominal pain, acute, nonlocalized, Peritonitis or perforation suspected, Sepsis,Per nephrology concerning for EPS Type of Exam?:Initial Additional signs and symptoms?:SOBPerformed By: #### [id number] #### LAB [address] [place], [place] [address] Oskar Ballard M.D. [id number] nitrogen/Creatinine [Mass ratio]6.9 mg/mgLow10.0-20.0Medina HospitalComment on above:Order Comment: Injury/Trauma or Illness?:Illness/Other How long have you had these symptoms (acute/chronic)?:Acute Reason for exam?:Abdominal pain, acute, nonlocalized, Peritonitis or perforation suspected, Sepsis,Per nephrology concerning for EPS Type of Exam?:Initial Additional signs and symptoms?:SOBPerformed By: #### [id number] #### LAB [address] [place], [place] [address] Oskar Ballard M.D. [id number] VERIFICATIONon 42-40-4421VBL and Rh group Nom (Bld)Blood group AB Rh(D) negative [facility] HospitalABO and Rh group Nom (d)ABO/Rh VerificationNoClermont County HospitalComment on above:Result Comment: Patient's ABO/Rh is verified. ANTIBODY IDENTIFICATION-Jb [id number] IDENTIFICATION-KANTIBODY IDENTIFICATION: Anti-K Anti-K is a clinically significant antibody belonging to the Kimberly system. It can cause hemolytic transfusion reactions and hemolytic disease of the . The K antigen is present in 9% of the population. In the event that blood is required, additional time will be necessary to obtain compatible units.[facility] HospitalANTIBODY IDENTIFICATION-RLXon [id number] IDENTIFICATION-RLX ANTIBODY IDENTIFICATION: RLX Possible presence of interfering rouleaux. Additional time may be required for compatibility testing if red cell transfusion is necessary.[facility] WITH AUTO DIFFERENTIALon 67-94-1583HCNC NRBC0.0 %[facility] HospitalComment on above:Performed By: #### [id number] #### LAB [address] [place], [place] [address] Oskar Ballard M.D. [id number] NRBC ABS COUNT 0.00 K/mcLNormal0.00-0.00Medina HospitalComment on above:Performed By: #### [id number] #### LAB [address] [place] [address] Oskar Ballard M.D. [id number] ABSOLUTE COUNT0.03 K/mcLNormal0.00-0.30Medina HospitalComment on above:Performed By: #### [id number] #### LAB [address] [place] [address] Oskar Ballard M.D. [id number]/100 WBC (Bld)0.3 %[facility] HospitalComment on above:Performed By: #### [id number] #### LAB [address] [place] [address] Oskar Ballard M.D. [id number] (Bld) [#/Vol]0.25 10*3/uLNormal0.00-0.50[facility] Comment on above:Performed By: #### [id number] #### LAB [address] [place] [address] Oskar Ballard M.D. [id number]/100 WBC (Bld)2.4 %[facility] HospitalComment on above:Performed By: #### [id number] #### LAB [address] [place] [address] Oskar Ballard M.D. [id number] distribution width (RBC) [Ratio]18.2 %High11.6-14.8 Medina HospitalComment on above:Performed By: #### [id number] #### LAB [address] [place] [address] Oskar Ballard M.D. [id number] Hematocrit (Bld) [Volume fraction]25.8 %Low41.0-53.0Medina HospitalComment on above:Performed By: #### [id number] #### LAB [address] [place] [address] Oskar Ballard M.D. [id number] (Bld) [Mass/Vol]7.8 g/dLLow 13.5-17.5Medina HospitalComment on above:Performed By: #### [id number] #### LAB [address] [place] [address] Oskar Ballard M.D. [id number] IG ABSOLUTE0.06 K/mcLNormal0.00-0.30[facility]ina HospitalComment on above:Performed By: #### [id number] #### LAB [address] [place] [address] Oskar Ballard M.D. [id number] PERCENT0.60 %[facility] HospitalComment on above:Result Comment: The IG parameter is the percentage of metamyelocytes, myelocytes and promyelocytes.An immature granulocyte count (IG) of 1% or more suggests the possibility of infection, an IG countof 3% is very likely related to an infection.Performed By: #### [id number] #### LAB [address] [place] [address] Oskar Ballard M.D. [id number] (Bld) [#/Vol]0.38 10*3/uLLow0.90-4.00Medina HospitalComment on above:Performed By: #### [id number] #### LAB [address] [place] [address] Oskar Ballard M.D. [id number]/100 WBC (Bld)3.6 %[facility] Comment on above:Performed By: #### [id number] #### LAB [address] [place] [address] Oskar Ballard M.D. [id number] (RBC) [Entitic mass]28.5 lkQgtrel72.0-34.0Medina HospitalComment on above:Performed By: #### [id number] #### LAB [address] [place] [address] Oskar Ballard M.D. [id number] (RBC) [Entitic vol]94.2 uMItyrmz14.0-100.0[facility] Comment on above:Performed By: #### [id number] #### LAB [address] [place] [address] Oskar Ballard M.D. [id number] CORPUSCULAR HEMOGLOBIN CONC30.2 g/dLLow31.0-37.0[facility]accoon HospitalComment on above:Performed By: #### [id number] #### LAB [address] [place] [address] Oskar Ballard M.D. [id number] (Bld) [#/Vol]0.72 10*3/uLNormal0.30-0.90 Medina HospitalComment on above:Performed By: #### [id number] #### LAB [address] [place] [address] Oskar Ballard M.D. [id number] Monocytes/100 WBC (Bld)6.8 %[facility] HospitalComment on above:Performed By: #### [id number] #### LAB [address] [place] [address] Oskar Ballard M.D. [id number] ABSOLUTE COUNT9.11 K/mcLHigh1.70-7.00 Medina HospitalComment on above:Performed By: #### [id number] #### LAB [address] [place] [address] Oskar Ballard M.D. [id number] Neutrophils/100 WBC (Bld)86.3 %[facility] HospitalComment on above: Performed By: #### [id number] #### LAB [address] [place] [address] Oskar Ballard M.D. [id number] mean volume (Bld) [Entitic vol]9.8 fLNormal9.4-12.4Medina HospitalComment on above:Performed By: #### [id number] #### LAB [address] [place] [address] Oskar Ballard M.D. [id number] (d) [#/Vol]320 10*3/fQPayliq614-825Jmauadnof Hospital Comment on above:Performed By: #### [id number] #### LAB [address] [place], [place] [address] Oskar Ballard M.D. [id number] (d) [#/Vol]2.74 10*6/uLLow4.50-5.90Medina HospitalComment on above:Performed By: #### [id number] #### LAB [address] [place], [place] [address] Oskar Ballard M.D. [id number] (d) [#/Vol]10.55 10*3/uLNormal4.50-11.00[facility] Comment on above:Performed By: #### [id number] #### LAB [address] [place] [address] Oskar Ballard M.D. [id number] DIRECT ANTIGLOBULIN TESTon 61-54-8775FZZDIQZEKZ DIRECT ANTIGLOBULIN TESTNegativeEast Liverpool City HospitalCT TAVR CHEST ABDOMEN PELVIS WITHOUT HYDRATIONon 01-05-0222RN TAVR CHEST ABDOMEN PELVIS WITHOUT HYDRATIONEXAMINATION: CT [...] significant liver lesions. Mild liver cirrhosis and zozch-do-fgdgkgqs ascites. The unopacified loops of small bowel and colon appear satisfactory. There is no evidence of obstruction. There is free intraperitoneal air. IMPRESSION: Interval development of free intraperitoneal air. Close clinical correlation to the significance of this finding is recommended. There is also rjqwr-hc-snduoyya amount of ascites. [employer] Workstation ID: [id number] Dictated by: KYLER JOHNSTON on WedSep 24, 2025 10:38:02 AM EST Transcribed by: GERARDO MAK on WedSep 24, 2025 11:24:34 AM EST Finalized by: KYLER JOHNSTON on WedSep 24, 2025 11:39:56 AM [facility] HospitalComment on above:Order Comment: Injury/Trauma or Illness?:Illness/OtherHow long have you had these symptoms (acute/ch ronic)?:ChronicReason for exam?:Severe , pre TAVR planning, supplemental readType of Exam?:Subsequent/Follow-upAdditional signs and symptoms?:.GIGGon 46-29-5824QNOTJxjdszzeTbpxpeJmibgbpgc HospitalHEPATIC FUNCTION PANELon 50-13-7861Whntidv [Mass/Vol]3.1 g/dLLow3.2-5.2MOhio State Health SystemComment on above:Performed By: #### [id number] #### LAB [address] [place], [place] [address] Oskar Ballard M.D. [id number] [Catalytic activity/Vol]297 U/LHigh 40-150Medina HospitalComment on above:Performed By: #### [id number] #### LAB [address] [place], [place] [address] Oskar Ballard M.D. [id number] [Catalytic activity/Vol]25 U/LNormal0-50 U/[place] [facility] SystemComment on above: Performed By: #### [id number] #### LAB [address] [place] [address] Oskar Ballard M.D. [id number] [Catalytic activity/Vol]50 U/LNormal0-50 U/[place] [facility] SystemComment on above:Performed By: #### [id number] #### LAB [address] [place] [address] Oskar Ballard M.D. [id number] [Mass/Vol]0.8 mg/dLNormal0.0-1.3MOhio State Health SystemComment on above:Performed By: #### [id number] #### LAB [address] [place] [address] Oskar Ballard M.D. [id number].indirect [Mass/Vol]0.6 mg/dLHigh0.0-0.4Medina HospitalComment on above:Performed By: #### [id number] #### LAB [address] [place] [address] Oskar Ballard M.D. [id number] [Mass/Vol]7.6 g/dLNormal6.0-8.0Medina HospitalComment on above:Performed By: #### [id number] #### LAB [address] [place] [address] Oskar Ballard M.D. [id number] PATIENT ANTIGEN TYPEon 09-24-2025K PATIENT ANTIGEN TYPENegative NormalMedina HospitalMAGNESIUM LEVELon 39-70-9230Nswljazul [Mass/Vol]1.8 mg/dLNormal1.6-2.4Medina HospitalComment on above:Performed By: #### [id number] #### [facility] LAB [address] [place], [place] [address] Lobo Albrecht M.D. [id number] PRO BNPon 40-54-7366HC-PRO BNP>High0-300Medina HospitalComment on above:Order Comment: Pride Study Cut-offsRule In:< /= 50 Years >450 pg/mL51 Years - 75 Years >900 pg/mL76 Years - 99 Years >1800 pg/mLRule Out:All patients <300 pg/mLPerformed By: #### [id number] #### LAB [address] [place], [place] [address] Oskar Ballard M.D. [id number] GLUCOSE - RALSon 11-45-8475Iualmpq [Mass/Vol]126 mg/kQLccb70-57Untvspujm82 [address] StreetGlucose [Mass/Vol]114 mg/dL30 [address] StreetGlucose [Mass/Vol]254 mg/sTKbek88-25Puqryofad[address] Glucose [Mass/Vol]301 mg/cJJsun96-74Rcemiuzif82 [address] StreetPT/INRon 64-57-9276BAP Coag (PPP) [Relative time]2.3 {INR}High0.8-1.1MOhio State Health SystemComment on above:Order Comment: During the induction phase of oral anticoagulation, the INR may not reflect the anticoagulation status of the patient. Therapeutic ranges for INR's are:Most clinical situations: INR 2.0-3.0Mechanical Prosthetic Valve: INR 2.5-3.5Critical: INR >5.0Performed By: #### [id number] #### LAB [address] [place], [place] [address] Oskar Ballard M.D. [id number] Coag (PPP) [Time]25.9 sHigh11.8-14.3MOhio State Health SystemComment on above:Order Comment: During the induction phase of oral anticoagulation, the INR may not reflect the anticoagulation status of the patient. Therapeutic ranges for INR's are:Most clinical situations: INR 2.0-3.0Mechanical Prosthetic Valve: INR 2.5- 3.5Critical: INR >5.0Performed By: #### [id number] #### LAB [address] [place] [id number] Oskar Ballard M.D. [id number] FUNCTION PANELon 41-35-4113Npjigrb [Mass/Vol]2.9 g/dLLow3.2-5.2[facility]field HospitalComment on above:Order Comment: [facility] has implemented the eGFR calculation approach that does not have a coefficient for race that conforms to the NKF-ASN Task Force Recommendations.Performed By: #### [id number] #### LAB [address] [place] [address] Oskar Ballard M.D. [id number] gap [Moles/Vol]24 mmol/VLlmo27-42BanyltqxyCleveland Clinic [facility]mount [facility] on above:Order Comment: [facility] has implemented the eGFR calculation approach that does not have a coefficient for race that conforms to the NKF-ASN Task Force Recommendations.Performed By: #### [id number] #### LAB [address] [place] [address] Oskar Ballard M.D. [id number] [Mass/Vol]8.3 mg/dLLow8.4-10.2MPaulding County Hospital on above:Order Comment: [facility] has implemented the eGFR calculation approach that does not have a coefficient for race that conforms to the NKF-ASN Task Force Recommendations.Performed By: #### [id number] #### LAB [address] [place] [address] Oskar Ballard M.D. [id number] [Moles/Vol]91 mmol/LLow 98-108[facility] on above:Order Comment: [facility] has implemented the eGFR calculation approach that does not have a coefficient for race that conforms to the NKF-ASN Task Force Recommendations. Performed By: #### [id number] #### LAB [address] [place] [address] Oskar Ballard M.D. [id number] [Mass/Vol]7.33 mg/dLHigh0.50-1.30 [facility] on above:Order Comment: [facility] has implemented the eGFR calculation approach that does not have a coefficient for race that conforms to the NKF-ASN Task Force Recommendations.Performed By: #### [id number] #### LAB [address] [place] [address] Oskar Ballard M.D. [id number] mL/min/1.73 m2Low>=60[facility] on above:Order Comment: [facility] has implemented the eGFR calculation approach that does not have a coefficient for race that conforms to the NKF-ASN Task Force Recommendations.Result Comment: Estimated GFR was calculated using the 2020 CKD-EPI creatinine equation.Performed By: #### [id number] ####[facility] LAB [address] [place] [address] Oskar Ballard M.D. [id number] [Mass/Vol]160 mg/nYWtfi52-72Zzfhvntro[address] [place] [address] on above:Order Comment: [facility] has implemented the eGFR calculation approach that does not have a coefficient for race that conforms to the NKF-ASN Task Force Recommendations.Performed By: #### [id number] ####[facility] LAB [address] [place] [address] Oskar Ballard M.D. [id number] (Bld) [Moles/Vol]22 mmol/PXrjonl20-83EvxmgoynoCleveland Clinic Marymount Hospital on above:Order Comment: [facility] has implemented the eGFR calculation approach that does not have a coefficient for race that conforms to the NKF-ASN Task Force Recommendations.Performed By: #### [id number] #### LAB [address] [place] [address] Oskar Ballard M.D. [id number] [Mass/Vol] 8.4 mg/dLHigh2.7-4.5[facility] on above:Order Comment: [facility] has implemented the eGFR calculation approach that does not have a coefficient for race that conforms to the NKF-ASN Task Force Recommendations.Performed By: #### [id number] ####[facility] LAB [address] [place] [address] Oskar Ballard M.D. [id number] [Moles/Vol]3.5 mmol/L Normal3.5-5.1MPaulding County Hospital on above:Order Comment: [facility] has implemented the eGFR calculation approach that does not have a coefficient for race that conforms to the NKF-ASN Task Force Recommendations.Performed By: #### [id number] #### LAB [address] [place], [place] [address] Oskar Ballard M.D. [id number] [Moles/Vol]133 mmol/LLow 135-145[facility] on above:Order Comment: [facility] has implemented the eGFR calculation approach that does not have a coefficient for race that conforms to the NKF-ASN Task Force Recommendations. Performed By: #### [id number] #### LAB [address] [place] [address] Oskar Ballard M.D. [id number] nitrogen [Mass/Vol]53 mg/dLHigh8-25 [facility] on above:Order Comment: [facility] has implemented the eGFR calculation approach that does not have a coefficient for race that conforms to the NKF-ASN Task Force Recommendations.Performed By: #### [id number] #### LAB [address] [place] [address] Oskar Ballard M.D. [id number] nitrogen/Creatinine [Mass ratio]7.2 mg/mgLow10.0-20.0 [facility] on above:Order Comment: [facility] has implemented the eGFR calculation approach that does not have a coefficient for race that conforms to the NKF-ASN Task Force Recommendations.Performed By: #### [id number] #### LAB [address] [place] [address] Oskar Ballard M.D. [id number] AND SCREENon 30-87-5357FHWG AND SCREENABORH: AB Negative AB SCREEN: Positive EXPIRATION DATE: 09/27/2025 23:59 [facility] HospitalXR MANDIBLE LESS THAN 4 VIEWS (PANOREX)on 56-52-8182IK MANDIBLE LESS THAN 4 VIEWS (PANOREX) EXAMINATION: [...] location N18.6 ESRD (end stage renal disease) ([facility]) D63.8 Anemia of chronic disease E87.1 Hyponatremia [...] maxillary incisor. 2. No apical lucency/abscess identified. [facility] Workstation ID: [id number] Dictated by: ELROY ROPER on WedSep 25, 2025 6:21:31 AM EST Transcribed by: ROBEL GURROLA on WedSep 25, 2025 6:24:59 AM EST Finalized by: ELROY ROPER on WedSep 25, 2025 6:29:22 AM ESTMercy Health Allen HospitalComment on above:Order Comment: Injury/Trauma or Illness?:Illness/Other How long have you had these symptoms (acute/chronic)?:Acute Reason for exam?:severe aortic stenosis, checking for abcess for pre-valve replacement History of cancer?:. Surgeries, chemotherapy, or radiation?:. Type of Exam?:Initial Additional signs and symptoms?:.CBC WITH AUTO DIFFERENTIALon 19-54-1653KURH NRBC 0.0 %[facility] HospitalCommymichigan medical center sag[facility] on above:Performed By: #### [id number] #### LAB [address] [place] [address] Oskar Ballard M.D. [id number] AUTO NRBC ABS COUNT0.00 K/mcLNormal0.00-0.00Medina HospitalComment on above: Performed By: #### [id number] ####[facility] LAB [address] [place] [address] Oskar Ballard M.D. [id number] ABSOLUTE COUNT0.02 K/mcLNormal 0.00-0.30Medina HospitalComment on above:Performed By: #### [id number] #### LAB [address] [place] [address] Oskar Ballard M.D. [id number] Basophils/100 WBC (Bld)0.2 %[facility] HospitalComment on above:Performed By: #### [id number] #### LAB [address] [place] [address] Oskar Ballard M.D. [id number] (Bld) [#/Vol]0.18 10*3/uLNormal0.00-0.50 Med[facility] HospitalComment on above:Performed By: #### [id number] #### LAB [address] [place] [address] Oskar Ballard M.D. [id number] Eosinophils/100 WBC (Bld)1.5 %[facility] HospitalComment on above:Performed By: #### [id number] #### LAB [address] [place] [address] Oskar Ballard M.D. [id number] distribution width (RBC) [Ratio]17.9 % High11.6-14.8Medina HospitalComment on above:Performed By: #### [id number] #### LAB [address] [place] [address] Oskar Ballard M.D. [id number] (Bld) [Volume fraction]25.1 %Low41.0-53.0[facility] Comment on above:Performed By: #### [id number] #### LAB [address] [place] [address] Oskar Ballard M.D. [id number] (Bld) [Mass/Vol]7.3 g/dLLow13.5-17.5Med[facility] HospitalComment on above:Performed By: #### [id number] #### LAB [address] [place] [address] Oskar Ballard M.D. [id number] ABSOLUTE0.05 K/mcLNormal0.00-0.30[facility] Comment on above:Performed By: #### [id number] #### LAB [address] [place] [address] Oskar Ballard M.D. [id number] PERCENT0.40 %[facility] Liverpool City HospitalComment on above:Result Comment: The IG parameter is the percentage of metamyelocytes, myelocytes and promyelocytes.An immature granulocyte count (IG) of 1% or more suggests the possibility of infection, an IG countof 3% is very likely related to an infection.Performed By: #### [id number] #### LAB [address] [place] [address] Oskar Ballard M.D. [id number] (Bld) [#/Vol]0.29 10*3/uLLow0.90-4.00[facility] Comment on above:Performed By: #### [id number] #### LAB [address] [place] [address] Oskar Ballard M.D. [id number]/100 WBC (Bld)2.5 %[facility] HospitalComment on above:Performed By: #### [id number] #### LAB [address] [place] [address] Oskar Ballard M.D. [id number] (RBC) [Entitic mass]27.9 omZagzdo38.0-34.0[facility] Comment on above:Performed By: #### [id number] #### LAB [address] [place] [address] Oskar Ballard M.D. [id number] (RBC) [Entitic vol]95.8 vTBgkxwv73.0-100.0Med[facility] HospitalComment on above:Performed By: #### [id number] #### LAB [address] [place] [address] Oskar Ballard M.D. [id number] CORPUSCULAR HEMOGLOBIN CONC29.1 g/dLLow31.0-37.0Med[facility] HospitalComment on above:Performed By: #### [id number] ####[facility] LAB [address] [place] [address] Oskar Ballard M.D. [id number] (Bld) [#/Vol]0.75 10*3/uLNormal0.30-0.90Med[facility] HospitalComment on above:Performed By: #### [id number] ####[facility] LAB [address] [place] [address] Oskar Ballard M.D. [id number]/100 WBC (Bld)6.4 %[facility] Comment on above:Performed By: #### [id number] #### LAB [address] [place] [address] Oskar Ballard M.D. [id number] ABSOLUTE COUNT10.36 K/mcLHigh1.70-7.00Med[facility] HospitalComment on above:Performed By: #### [id number] ####[facility] LAB [address] [place] [address] Oskar Ballard M.D. [id number]/100 WBC (Bld)89.0 %[facility] Comment on above:Performed By: #### SSZ7937 ####[facility] LAB [address] [place] [address] Oskar Ballard M.D. [id number] mean volume (Bld) [Entitic vol]9.3 fLLow9.4-12.4Med[facility] HospitalComment on above:Performed By: #### PUO3685 ####[facility] LAB [address] [place] [address] Oskar Ballard M.D. [id number] (Bld) [#/Vol]294 10*3/rDPbrszs663-861 [facility] HospitalComment on above:Performed By: #### PSC3454 #### LAB [address] [place] [address] Oskar Ballard M.D. [id number] (Bld) [#/Vol]2.62 10*6/uLLow4.50-5.90Med[facility] HospitalComment on above:Performed By: #### [id number] #### LAB [address] [place], [place] [address] Oskar Ballard M.D. [id number] (Bld) [#/Vol]11.65 10*3/uLHigh4.50-11.00Med[facility] HospitalComment on above:Performed By: #### [id number] ####[facility] LAB [address] [place], [place] [address] Oskar Ballard M.D. [id number] LEVELon 47-60-6556Ikwwonmkt [Mass/Vol]1.8 mg/dLNormal1.6-2.4[facility] HospitalComment on above:Performed By: #### [id number] #### LAB [address] [place], [place] [address] Oskar Ballard M.D. [id number] GLUCOSE - [facility]ENTERSon 31-00-1441Zgzgjkr [Mass/Vol]214 mg/jEElmo28-25Ffsucadcq82 [address] StreetGlucose [Mass/Vol]285 mg/dL30 [address] StreetGlucose [Mass/Vol]243 mg/rDSimq83-45Mgcatddnr[address] Glucose [Mass/Vol]228 mg/cLKaov77-24Atpjbxvmt82 [address] StreetGlucose [Mass/Vol]153 mg/eXVins60-46Lsqugfmlk82 [address] StreetGlucose [Mass/Vol]337 mg/iVQppv45-98Ofnjtnonm82 [address] StreetGlucose [Mass/Vol]305 mg/cJUbal13-09Yfcnyldan82 [address] StreetRENAL FUNCTION PANELon 67-75-5168Sehdmlb [Mass/Vol]3.1 g/dLLow3.2-5.2MOhio State Health SystemComment on above:Order Comment: [facility] has implemented the eGFR calculation approach that does not have a coefficient for race that conforms to the NKF-ASN Task Force Recommendations.Performed By: #### [id number] #### [facility] LAB [address] [place] [address] Lobo Albrecht M.D. [id number] gap [Moles/Vol]23 mmol/XXuuf46-24JnwyeyldhCleveland Clinic Marymount Hospital on above:Order Comment: [facility] has implemented the eGFR calculation approach that does not have a coefficient for race that conforms to the NKF-ASN Task Force Recommendations.Performed By: #### [id number] #### [facility] LAB [address] [place], [place] [address] Lobo Albrecht M.D. [id number] [Mass/Vol]8.3 mg/dLLow8.4-10.2MPaulding County Hospital on above:Order Comment: [facility] has implemented the eGFR calculation approach that does not have a coefficient for race that conforms to the NKF-ASN Task Force Recommendations.Performed By: #### [id number] #### [place] [address] Lobo Albrecht M.D. [id number] [Moles/Vol]89 mmol/KFxm66-430NyxxnuylvCleveland Clinic Marymount Hospital on above:Order Comment: [facility] has implemented the eGFR calculation approach that does not have a coefficient for race that conforms to the NKF-ASN Task Force Recommendations.Performed By: #### [id number] #### [place] [address] Lobo Albrecht M.D. [id number] [Mass/Vol]7.70 mg/dLHigh0.50-1.30[facility] on above:Order Comment: [facility] has implemented the eGFR calculation approach that does not have a coefficient for race that conforms to the NKF-ASN Task Force Recommendations.Performed By: #### [id number] #### [facility] LAB [address] [place], [place] [address] Lobo Albrecht M.D. [id number] mL/min/1.73 m2Low>=60[facility] on above:Order Comment: [facility] has implemented the eGFR calculation approach that does not have a coefficient for race that conforms to the NKF-ASN Task Force Recommendations.Result Comment: Estimated GFR was calculated using the 2020 CKD-EPI creatinine equation.Performed By: #### [id number] #### [facility] LAB [address] [place] [address] Lobo Albrecht M.D. [id number] [Mass/Vol]288 mg/wIAfom62-35Rwxhearue[address] on above:Order Comment: [facility] has implemented the eGFR calculation approach that does not have a coefficient for race that conforms to the NKF-ASN Task Force Recommendations.Performed By: #### [id number] #### [place] [address] Lobo Albrecht M.D. [id number] (Bld) [Moles/Vol]22 mmol/KMqbadz99-28BdgtwestvCleveland Clinic Marymount Hospital on above:Order Comment: [facility] has implemented the eGFR calculation approach that does not have a coefficient for race that conforms to the NKF-ASN Task Force Recommendations.Performed By: #### [id number] #### [facility] [address] [place] [address] Lobo Albrecht M.D. [id number] [Mass/Vol]8.8 mg/dLHigh2.7-4.5[facility] on above:Order Comment: [facility] has implemented the eGFR calculation approach that does not have a coefficient for race that conforms to the NKF-ASN Task Force Recommendations.Performed By: #### [id number] #### [facility] [address] [place] [address] Lobo Albrecht M.D. [id number] [Moles/Vol]3.7 mmol/LNormal3.5-5.1MPaulding [facility] Hospital on above:Order Comment: [facility] has implemented the eGFR calculation approach that does not have a coefficient for race that conforms to the NKF-ASN Task Force Recommendations.Performed By: #### [id number] #### [facility] [address] [place] [address] Lobo Albrecht M.D. [id number] [Moles/Vol]130 mmol/VAen930-745MyeigwflmCleveland Clinic [facility]mount Hospital on above:Order Comment: [facility] has implemented the eGFR calculation approach that does not have a coefficient for race that conforms to the NKF-ASN Task Force Recommendations.Performed By: #### [id number] #### [facility] [address] [place] [address] 125[address] Lobo Albrecht M.D. [id number] nitrogen [Mass/Vol]55 mg/dLHigh8-25[facility] on above:Order Comment: [facility] has implemented the eGFR calculation approach that does not have a coefficient for race that conforms to the NKF-ASN Task Force Recommendations.Performed By: #### [id number] #### [facility] [address] [place], [place] [address] Lobo Albrecht M.D. [id number] nitrogen/Creatinine [Mass ratio]7.1 mg/mgLow10.0-20.0[facility] on above:Order Comment: [facility] has implemented the eGFR calculation approach that does not have a coefficient for race that conforms to the NKF-ASN Task Force Recommendations.Performed By: #### [id number] #### [facility] [address] [place] [address] 89293 Lobo Albrecht M.D. [id number] WITH AUTO DIFFERENTIALon 44-51-3425HKSE NRBC0.0 %NormalMedina HospitalCommymichigan medical center sag[facility] on above:Performed By: #### [id number] ####[address] [address] Oskar Ballard M.D. [id number] NRBC ABS COUNT 0.00 K/mcLNormal0.00-0.00Medina HospitalComment on above:Performed By: #### [id number] #### LAB [address] [address] Oskar Ballard M.D. [id number] ABSOLUTE COUNT0.02 K/mcLNormal0.00-0.30Medina HospitalComment on above:Performed By: #### [id number] #### LAB [address] [address] Oskar Ballard M.D. [id number]/100 WBC (Bld)0.2 %[facility] HospitalComment on above:Performed By: #### [id number] #### LAB [address] [address] Oskar Ballard M.D. [id number] (Bld) [#/Vol]0.21 10*3/uLNormal0.00-0.50[facility] Comment on above:Performed By: #### [id number] #### LAB [address] [address] Oskar Ballard M.D. [id number]/100 WBC (Bld)2.1 %[facility] HospitalComment on above:Performed By: #### [id number] #### LAB [address] [address] Oskar Ballard M.D. [id number] distribution width (RBC) [Ratio]17.9 %High11.6-14.8 [facility] HospitalComment on above:Performed By: #### [id number] #### LAB [address] [address] Oskar Ballard M.D. [id number] Hematocrit (Bld) [Volume fraction]24.0 %Low41.0-53.0[facility] HospitalComment on above:Performed By: #### [id number] #### LAB [address] [address] Oskar Ballard M.D. [id number] (Bld) [Mass/Vol]7.0 g/dLLow 13.5-17.5Medina HospitalComment on above:Performed By: #### [id number] #### LAB [address] [address] Oskar Ballard M.D. [id number] IG ABSOLUTE0.06 K/mcLNormal0.00-0.30[facility] HospitalComment on above:Performed By: #### [id number] #### LAB [address] [address] Oskar Ballard M.D. [id number] PERCENT0.60 %[facility] HospitalComment on above:Result Comment: The IG parameter is the percentage of metamyelocytes, myelocytes and promyelocytes.An immature granulocyte count (IG) of 1% or more suggests the possibility of infection, an IG countof 3% is very likely related to an infection.Performed By: #### [id number] #### LAB [address] [address] Oskar Ballard M.D. [id number] (Bld) [#/Vol]0.38 10*3/uLLow0.90-4.00[facility] HospitalComment on above:Performed By: #### [id number] #### LAB [address] [address] Oskar Ballard M.D. [id number]/100 WBC (Bld)3.9 %[facility] Comment on above:Performed By: #### [id number] #### LAB [address] [address] Oskar Ballard M.D. [id number] (RBC) [Entitic mass]28.3 fpJjdmsr10.0-34.0[facility] HospitalComment on above:Performed By: #### [id number] #### LAB [address] [address] Oskar Ballard M.D. [id number] (RBC) [Entitic vol]97.2 fCNtdeex71.0-100.0[facility] Comment on above:Performed By: #### [id number] #### LAB [address] [address] Oskra Ballard M.D. [id number] CORPUSCULAR HEMOGLOBIN CONC29.2 g/dLLow31.0-37.0[facility] HospitalComment on above:Performed By: #### [id number] #### LAB [address] [address] Oskar Ballard M.D. [id number] (Bld) [#/Vol]0.65 10*3/uLNormal0.30-0.90 [facility] HospitalComment on above:Performed By: #### [id number] #### LAB [address] [address] Oskar Ballard M.D. [id number] Monocytes/100 WBC (Bld)6.7 %[facility] HospitalComment on above:Performed By: #### [id number] #### LAB [address] [address] Oskar Ballard M.D. [id number] ABSOLUTE COUNT8.45 K/mcLHigh1.70-7.00 [facility] HospitalComment on above:Performed By: #### [id number] #### LAB [address] [address] Oskar Ballard M.D. [id number] Neutrophils/100 WBC (Bld)86.5 %[facility] HospitalComment on above:Result Comment: Peripheral smear reviewed manuallyPerformed By: #### [id number] #### LAB [address] [address] Oskar Ballard M.D. [id number] Platelet mean volume (Bld) [Entitic vol]9.8 fLNormal9.4-12.4[facility] Comment on above:Performed By: #### [id number] #### LAB [address] [address] Oskar Ballard M.D. [id number] ([facility]) [#/Vol]303 10*3/mQHnjjex447-891Loydjyseh HospitalComment on above:Performed By: #### [id number] ####[facility] [address] [place], [place] [address] Oskar Ballard M.D. [id number] ([facility]) [#/Vol]2.47 10*6/uLLow4.50-5.90[facility] Comment on above:Performed By: #### [id number] ####[facility] [address] [place], [place] [address] Oskar Ballard M.D. [id number] ([facility]) [#/Vol]9.77 10*3/uLNormal4.50-11.00[facility] HospitalComment on above:Performed By: #### [id number] #### LAB [address] [place], [place] [address] Oskar Ballard M.D. [id number] 61-61-9104HZGRFKK Attestation signed by Jose Dubon MD at [...] a surgical candidate back on 2019 in [place]. Now the patient has severe aortic valve [...] catheter-based intervention. Cardiothoracic Surgery Inpatient Consult [facility] 09/22/2025 Tim Soto PA-C [address] [facility] [id number] Date of Service: 09/22/2025 Patient: Lorenzo Amato Date of : 1970 Referring Provider: Gracie Miller MD PCP: Lion Carlson MD Assessment/Plan: Lorenzo Amato is a 55 y.o. male with a significant history of ESRD on PD, anemia, CAD, depression, diabetes mellitus, GERD, dyslipidemia, hypertension, MS, morbid obesity, NABOR presenting to [facility] on 09/19/2025 with abdominal pain and concern for cellulitis Decompensated acute on chronic HFrEF with LVEF 36% - ACC C, NYHA III LFLG calcified aortic stenosis - M mmHg, V-max: 2.9 m/s, and ЕСРГЕЙ: 0.9 cm . SVI: 20 mL/m Severe [...] hypertension, MS, morbid obesity, NABOR presenting to [facility] on 09/19/2025 with abdominal pain and [...] and is on Eliquis. He has a [place] filter that no longer operates correctly. He [...] He underwent cardiac catheterizat (more content not included)...NormalMedina HospitalIRO STUDY WITH FERRITINon 65-05-0692Heafceko [Mass/Vol]377 ng/mLNormal 30-400[facility]field HospitalComment on above:Performed By: #### [id number] #### LAB [address] [address] Oskar Ballard M.D. [id number] [Mass/Vol]25 ug/jRPjk99-213Umwgvetgw HospitalComment on above:Performed By: #### [id number] #### LAB [address] [address] Oskar Ballard M.D. [id number] NBKFEILUCT18 %Dwn08-19UbaxhrfhpMedina HospitalComment on above: Performed By: #### [id number] #### LAB [address] [address] Oskar Ballard M.D. [id number] (CALCULATED)156 mcg/vNTaj899-514 [facility] HospitalComment on above:Performed By: #### [id number] #### LAB [address] [address] Oskar Ballard M.D. [id number] LEVELon 34-30-8907Erwzqjqkg [Mass/Vol]1.9 mg/dLNormal1.6-2.4[facility] Comment on above:Performed By: #### [id number] #### LAB [address] [address] Oskar Ballard M.D. [id number] GLUCOSE - RALSon 09-22-2025 Glucose [Mass/Vol]222 mg/vYLxhj53-44Ughlhhufb82 [address] StreetGlucose [Mass/Vol]224 mg/lESnka33-11Mymbglglo82 [address] StreetGlucose [Mass/Vol]146 mg/fYUhzn10-14Tvhimzusu82 [address] StreetGlucose [Mass/Vol]172 mg/rPKwsd39-67Ohhzduihc82 [address] StreetGlucose [Mass/Vol] 159 mg/yKRdtx49-05Hudoqbajw[address] [place], [place] [address]Glucose [Mass/Vol]298 mg/sSPgyx63-73 Medina HospitalGlucose [Mass/Vol]317 mg/yJFnfl79-11Buqprnslf82 [address] StreetRENAL FUNCTION PANELon 28-48-2338Mivphux [Mass/Vol]3.0 g/dLLow3.2-5.2MPaulding County Hospital on above:Order Comment: [facility] has implemented the eGFR calculation approach that does not have a coefficient for race that conforms to the NKF-ASN Task Force Recommendations.Performed By: #### [id number] #### [facility] [address] [place] [address] Lobo Albrecht M.D. [id number] gap [Moles/Vol]23 mmol/IZncx89-07ObzyyrpbgCleveland Clinic [facility]mount Hospital on above:Order Comment: [facility] has implemented the eGFR calculation approach that does not have a coefficient for race that conforms to the NKF-ASN Task Force Recommendations.Performed By: #### [id number] #### [facility] [address] [place], [place] [address] Lobo Albrecht M.D. [id number] [Mass/Vol]8.2 mg/dLLow8.4-10.2MPaulding County Hospital on above:Order Comment: [facility] has implemented the eGFR calculation approach that does not have a coefficient for race that conforms to the NKF-ASN Task Force Recommendations.Performed By: #### [id number] #### [facility] [address] [place], [place] [address] Lobo Albrecht M.D. [id number] [Moles/Vol]91 mmol/CTud78-454ZrwwnhgtxCleveland Clinic Marymount Hospital on above:Order Comment: [facility] has implemented the eGFR calculation approach that does not have a coefficient for race that conforms to the NKF-ASN Task Force Recommendations.Performed By: #### [id number] #### [facility] [address] [place] [address] Lobo Albrecht M.D. [id number] [Mass/Vol]7.18 mg/dLHigh0.50-1.30[facility] on above:Order Comment: [facility] has implemented the eGFR calculation approach that does not have a coefficient for race that conforms to the NKF-ASN Task Force Recommendations.Performed By: #### [id number] #### [facility] [address] [place] [address] Lobo Albrecht M.D. [id number] mL/min/1.73 m2Low>=60[facility] on above:Order Comment: [facility] has implemented the eGFR calculation approach that does not have a coefficient for race that conforms to the NKF-ASN Task Force Recommendations.Result Comment: Estimated GFR was calculated using the 2020 CKD-EPI creatinine equation.Performed By: #### [id number] #### [address] [place] [address] Lobo Albrecht M.D. [id number] [Mass/Vol]266 mg/tZBvyq06-75Bxceiefot[address] on above:Order Comment: [facility] has implemented the eGFR calculation approach that does not have a coefficient for race that conforms to the NKF-ASN Task Force Recommendations.Performed By: #### [id number] #### [facility] [address] [place] [address] Lobo Albrecht M.D. [id number] (Bld) [Moles/Vol]19 mmol/RCnf84-11ExrhoswbnCleveland Clinic Marymount Hospital on above:Order Comment: [facility] has implemented the eGFR calculation approach that does not have a coefficient for race that conforms to the NKF-ASN Task Force Recommendations.Performed By: #### [id number] #### [facility] [address] [place], [place] [address] Lobo Albrecht M.D. [id number] [Mass/Vol]9.3 mg/dLWebster County Memorial Hospital2.7-4.5[facility] on above:Order Comment: [facility] has implemented the eGFR calculation approach that does not have a coefficient for race that conforms to the NKF-ASN Task Force Recommendations.Performed By: #### [id number] #### [facility] [address] [place], [place] [address] Lobo Albrecht M.D. [id number] [Moles/Vol]3.9 mmol/LNormal3.5-5.1MPaulding County Hospital on above:Order Comment: [facility] has implemented the eGFR calculation approach that does not have a coefficient for race that conforms to the NKF-ASN Task Force Recommendations.Performed By: #### [id number] #### [facility] [address] [place], [place] [address] Lobo Albrecht M.D. [id number] [Moles/Vol]129 mmol/FPhx273-889FzknsztdkCleveland Clinic [facility]mount Hospital on above:Order Comment: [facility] has implemented the eGFR calculation approach that does not have a coefficient for race that conforms to the NKF-ASN Task Force Recommendations.Performed By: #### [id number] #### [address] [place] [address] Lobo Albrecht M.D. [id number] nitrogen [Mass/Vol]58 mg/dLHigh8-25[facility] on above:Order Comment: [facility] has implemented the eGFR calculation approach that does not have a coefficient for race that conforms to the NKF-ASN Task Force Recommendations.Performed By: #### [id number] #### [address] [place] [address] Lobo Albrecht M.D. [id number] nitrogen/Creatinine [Mass ratio]8.1 mg/mgLow10.0-20.0[facility] on above:Order Comment: [facility] has implemented the eGFR calculation approach that does not have a coefficient for race that conforms to the NKF-ASN Task Force Recommendations.Performed By: #### [id number] #### [facility] [address] [place], [place] [address] Lobo Albrecht M.D. [id number]-SZNJTYRGAGZGHEItu 52-85-6447WRRJ-HYDROXYBUTYRATE<Normal0.0-0.3 [facility] on above:Performed By: #### [id number] #### LAB [address] [address] Oskar Ballard M.D. [id number] WITH AUTO DIFFERENTIALon 90-63-2648CZDC NRBC0.0 %[facility] on above:Performed By: #### [id number] #### LAB [address] [address] Oskar Ballard M.D. [id number] NRBC ABS COUNT0.00 K/mcLNormal 0.00-0.00[facility] on above:Performed By: #### [id number] #### LAB [address] [address] Oskar Ballard M.D. [id number] BASOPHILS ABSOLUTE COUNT0.03 K/mcLNormal0.00-0.30Medina HospitalCommymichigan medical center [facility] on above:Performed By: #### [id number] #### LAB [address] [address] Oskar Ballard M.D. [id number]/100 WBC (Bld)0.3 %[facility] HospitalCommymichigan medical center [facility] on above:Performed By: #### [id number] #### LAB [address] [address] Oskar Ballard M.D. [id number] Eosinophils (Bld) [#/Vol]0.19 10*3/uLNormal0.00-0.50[facility] on above:Performed By: #### [id number] #### LAB [address] [address] Oskar Ballard M.D. [id number]/100 WBC (Bld)1.7 %[facility] on above:Performed By: #### [id number] #### LAB [address] [address] Oskar Ballard M.D. [id number] Erythrocyte distribution width (RBC) [Ratio]17.8 %High11.6-14.8Medina HospitalComment on above:Performed By: #### [id number] #### LAB [address] [address] Oskar Ballard M.D. [id number] (Bld) [Volume fraction]27.2 %Low41.0-53.0[facility] HospitalComment on above:Performed By: #### [id number] #### LAB [address] [address] Oskar Ballard M.D. [id number] (Bld) [Mass/Vol]8.2 g/dLLow13.5-17.5 [facility] on above:Performed By: #### [id number] #### LAB [address] [address] Oskar Ballard M.D. [id number] ABSOLUTE0.07 K/mcLNormal0.00-0.30[facility] on above:Performed By: #### [id number] #### LAB [address] [address] Oskar Ballard M.D. [id number] PERCENT0.60 %[facility] on above:Result Comment: The IG parameter is the percentage of metamyelocytes, myelocytes and promyelocytes.An immature granulocyte count (IG) of 1% or more suggests the possibility of infection, an IG countof 3% is very likely related to an infection.Performed By: #### [id number] #### LAB [address] [address] Oskar Ballard M.D. [id number] (Bld) [#/Vol]0.30 10*3/uLLow0.90-4.00[facility] on above:Performed By: #### [id number] #### LAB [address] [address] Oskar Ballard M.D. [id number]/100 WBC (Bld)2.6 %[facility] Comment on above:Performed By: #### [id number] #### LAB [address] [address] Oskar Ballard M.D. [id number] (RBC) [Entitic mass]28.5 gnJfmcgl53.0-34.0[facility] HospitalComment on above:Performed By: #### [id number] #### LAB [address] [address] Oskar Ballard M.D. [id number] (RBC) [Entitic vol]94.4 cXEpigyk73.0-100.0[facility] Comment on above:Performed By: #### [id number] #### LAB [address] [address] Oskar Ballard M.D. [id number] CORPUSCULAR HEMOGLOBIN CONC30.1 g/dLLow31.0-37.0[facility] HospitalComment on above:Performed By: #### [id number] ####[facility] [address] [address] Oskar Ballard M.D. [id number] (Bld) [#/Vol]0.81 10*3/uLNormal0.30-0.90 [facility] HospitalComment on above:Performed By: #### [id number] ####[facility] [address] [address] Oskar Ballard M.D. [id number] Monocytes/100 WBC (Bld)7.0 %[facility] HospitalComment on above:Performed By: #### [id number] ####[facility] [address] [address] Oskar Ballard M.D. [id number] ABSOLUTE COUNT10.10 K/mcLHigh1.70-7.00 [facility] HospitalComment on above:Performed By: #### [id number] #### LAB [address] [address] Oskar Ballard M.D. [id number] Neutrophils/100 WBC (Bld)87.8 %NormalMedina HospitalComment on above: Performed By: #### [id number] #### LAB [address] [place], [place] [address] Oskar Ballard M.D. [id number] mean volume (Bld) [Entitic vol]9.7 fLNormal9.4-12.4[facility] HospitalComment on above:Performed By: #### [id number] ####[facility] [address] [place], [place] [address] Oskar Ballard M.D. [id number] (Bld) [#/Vol]343 10*3/eNUryunr153-455Hwqcpwxil Hospital Comment on above:Performed By: #### [id number] ####[facility] [address] [place] [address] Oskar Ballard M.D. [id number] (Bld) [#/Vol]2.88 10*6/uLLow4.50-5.90[facility] HospitalComment on above:Performed By: #### [id number] ####[facility] [address] [place] [address] Oskar Ballard M.D. [id number] (Bld) [#/Vol]11.50 10*3/uLHigh4.50-11.00Med[facility] HospitalComment on above:Performed By: #### [id number] #### LAB [address] [place] [address] Oskar Ballard M.D. [id number] AND RIGHT HEART CATHon 09-21-2025 LEFT AND [...] 47% AO sat: 95% Hb: 8.20 g/dL .[facility] HospitalMAGNESIUM LEVELon 78-14-7576Fpyjkwkqa [Mass/Vol]1.8 mg/dLNormal1.6-2.4Medina HospitalComment on above:Performed By: #### [id number] #### LAB [address] [place] [address] Oskar Ballard M.D. [id number] GLUCOSE - [facility] 60-70-9242Wbqcluu [Mass/Vol]305 mg/dL [address]Glucose [Mass/Vol]257 mg/vBZmpq08-56Yiruknupt82 [address] StreetGlucose [Mass/Vol]160 mg/gQWtfr90-33Fropiopmg82 [address] StreetGlucose [Mass/Vol] 197 mg/sJRdkn84-80Bgzdujtgl82 [address] StreetGlucose [Mass/Vol]243 mg/hPSceq71-[address]Glucose [Mass/Vol]275 mg/wPRigv91-36Snxhisitq82 [address] StreetGlucose [Mass/Vol]328 mg/eVOzoa54-67Xsywiqtzh82 [address] StreetGlucose [Mass/Vol]407 mg/dLOff scale [address] StreetComment on above:Order Comment: Critical result acted upon time of test. Test performed at bedside.Glucose [Mass/Vol]359 mg/dL [address] OXYHEMOGLOBIN AVOXon 35-51-2793ZINCPCEBJU SITE - AVOXOhiohealth [facility]ide [facility] Hospital AtriumMercy Health Allen HospitalO2HB AVOX50.1 %[facility] Comment on above:Result Comment: EXPECTED VALUES %HBO2 Right atrium RA 70 - 75% Aorta AO 95 - 97% Left atrium LA 95 - 98% Pulmonary artery PA 70 - 75% Right ventricle RV 70 - 75% Left ventricle LV 95 - 98%SUBSITE - AVOXCleveland Clinic Hillcrest HospitalCOLLECTION SITE - AVOXOhiohealth Riverside Methodist Hospital ventricleMercy Health Allen HospitalO2HB AVOX49.0 %[facility] HospitalComment on above:Result Comment: EXPECTED VALUES %HBO2 Right atrium RA 70 - 75% Aorta AO 95 - 97% Left atrium LA 95 - 98% Pulmonary artery PA 70 - 75% Right ventricle RV 70 - 75% Left ventricle LV 95 - 98%SUBSITE - [facility] HOSPITALOutC[facility] COLLECTION SITE - AVOXAortaNoKettering Health Main CampusO2HB AVOX95.4 %[facility] City HospitalComment on above:Result Comment: EXPECTED VALUES %HBO2 Right atrium RA 70 - 75% Aorta AO 95 - 97% Left atrium LA 95 - 98% Pulmonary artery PA 70 - 75% Right ventricle RV 70 - 75% Left ventricle LV 95 - 98%SUBSITE - OXAscendingMercy Health Allen Hospital COLLECTION SITE - AVOXPulmonary arteryNoKettering Health Main CampusO2HB AVOX47.6 % [facility] HospitalComment on above:Result Comment: EXPECTED VALUES %HBO2 Right atrium RA 70 - 75% Aorta AO 95 - 97% Left atrium LA 95 - 98% Pulmonary artery PA 70 - 75% Right ventricle RV 70 - 75% Left ventricle LV 95 - 98%SUBSITE - [facility] Anthony's HospitalRENAL FUNCTION PANELon 91-22-9596Oygytaz [Mass/Vol]2.8 g/dLLow3.2-5.2MOhio State Health SystemComment on above:Order Comment: [facility] has implemented the eGFR calculation approach that does not have a coefficient for race that conforms to the NKF-ASN Task Force Recommendations.Performed By: #### [id number] #### [facility] [address] [place], [place] [address] Lobo Albrecht M.D. [id number] gap [Moles/Vol]24 mmol/MKqmb76-46Dkaaqdcbf HospitalComment on above:Order Comment: [facility] has implemented the eGFR calculation approach that does not have a coefficient for race that conforms to the NKF-ASN Task Force Recommendations.Performed By: #### [id number] #### [facility] [address] [place] [address] Lobo Albrecht M.D. [id number] [Mass/Vol]8.1 mg/dLLow8.4-10.2MOhio State Health SystemComment on above:Order Comment: [facility] implemented the eGFR calculation approach that does not have a coefficient for race that conforms to the NKF-ASN Task Force Recommendations.Performed By: #### [id number] #### [facility] [address] [place] [address] Lobo Albrecht M.D. [id number] [Moles/Vol]89 mmol/ISde41-505ZxzknqmbwCleveland Clinic [facility]mount Hospital on above:Order Comment: [facility] has implemented the eGFR calculation approach that does not have a coefficient for race that conforms to the NKF-ASN Task Force Recommendations.Performed By: #### [id number] #### [address] [address] [address] Lobo Albrecht M.D. [id number] [Mass/Vol]7.15 mg/dLHigh0.50-1.30[facility] on above:Order Comment: [facility] has implemented the eGFR calculation approach that does not have a coefficient for race that conforms to the NKF-ASN Task Force Recommendations.Performed By: #### [id number] #### [address] [address] Lobo Albrecht M.D. [id number] mL/min/1.73 m2Low>=60[facility] on above:Order Comment: [facility] has implemented the eGFR calculation approach that does not have a coefficient for race that conforms to the NKF-ASN Task Force Recommendations.Result Comment: Estimated GFR was calculated using the 2020 CKD-EPI creatinine equation.Performed By: #### [id number] #### [address] [address] Lobo Albrecht M.D. [id number] [Mass/Vol]371 mg/dIGefu08-36Pkvfayxas[address] on above:Order Comment: [facility] has implemented the eGFR calculation approach that does not have a coefficient for race that conforms to the NKF-ASN Task Force Recommendations.Performed By: #### [id number] #### [facility] [address] [place] [address] Lobo Albrecht M.D. [id number] (Bld) [Moles/Vol]20 mmol/HYyr01-43LpdgyttqqCleveland Clinic [facility]mount [facility] on above:Order Comment: [facility] has implemented the eGFR calculation approach that does not have a coefficient for race that conforms to the NKF-ASN Task Force Recommendations.Performed By: #### [id number] #### [facility] [address] [place], [place] [address] Lobo Albrecht M.D. [id number] [Mass/Vol]9.2 mg/dLHigh2.7-4.5[facility] on above:Order Comment: [facility] has implemented the eGFR calculation approach that does not have a coefficient for race that conforms to the NKF-ASN Task Force Recommendations.Performed By: #### [id number] #### [facility] [address] [place], [place] [address] Lobo Albrecht M.D. [id number] [Moles/Vol]4.2 mmol/LNormal3.5-5.1MPaulding [facility] on above:Order Comment: [facility] has implemented the eGFR calculation approach that does not have a coefficient for race that conforms to the NKF-ASN Task Force Recommendations.Performed By: #### [id number] #### [facility] [address] [place] [address] Lobo Albrecht M.D. [id number] [Moles/Vol]129 mmol/LUtv698-537NffrkhpmkCleveland Clinic [facility]mount Hospital on above:Order Comment: [facility] has implemented the eGFR calculation approach that does not have a coefficient for race that conforms to the NKF-ASN Task Force Recommendations.Performed By: #### [id number] #### [facility] [address] [place] [address] Lobo Albrecht M.D. [id number] nitrogen [Mass/Vol]61 mg/dLHigh8-25[facility] HospitalComment on above:Order Comment: [facility] has implemented the eGFR calculation approach that does not have a coefficient for race that conforms to the NKF-ASN Task Force Recommendations.Performed By: #### [id number] #### [facility] [address] [place] [address] Lobo Albrecht M.D. [id number] nitrogen/Creatinine [Mass ratio]8.5 mg/mgLow10.0-20.0[facility] HospitalComment on above:Order Comment: [facility] has implemented the eGFR calculation approach that does not have a coefficient for race that conforms to the NKF-ASN Task Force Recommendations.Performed By: #### [id number] #### [facility] [address] [place], [place] [address] Lobo Albrecht M.D. [id number] WITH AUTO DIFFERENTIALon 30-58-7915MINJ NRBC0.0 %[facility] HospitalComment on above:Performed By: #### [id number] ####[facility] [address] [address] Oskar Ballard M.D. [id number] NRBC ABS COUNT 0.00 K/mcLNormal0.00-0.00[facility] HospitalCommymich[facility] on above:Performed By: #### [id number] ####[facility] [address] [address] Oskar Ballard M.D. [id number] ABSOLUTE COUNT0.03 K/mcLNormal0.00-0.30[facility] HospitalCommymichigan [facility] [place] on above:Performed By: #### [id number] ####[facility] [address] [address] Oskar Ballard M.D. [id number]/100 WBC (Bld)0.2 %[facility] HospitalComment on above:Performed By: #### [id number] #### LAB [address] [address] Oskar Ballard M.D. [id number] (Bld) [#/Vol]0.31 10*3/uLNormal0.00-0.50[facility] Comment on above:Performed By: #### [id number] #### LAB [address] [address] Oskar Ballard M.D. [id number]/100 WBC (Bld)2.5 %[facility] HospitalComment on above:Performed By: #### [id number] #### LAB [address] [address] Oskar Ballard M.D. [id number] distribution width (RBC) [Ratio]17.5 %High11.6-14.8 [facility] HospitalComment on above:Performed By: #### [id number] #### LAB [address] [address] Oskar Ballard M.D. [id number] Hematocrit (Bld) [Volume fraction]30.0 %Low41.0-53.0[facility] HospitalComment on above:Performed By: #### [id number] #### LAB [address] [address] Oskar Ballard M.D. [id number] (Bld) [Mass/Vol]8.7 g/dLLow 13.5-17.5[facility] HospitalComment on above:Performed By: #### [id number] #### LAB [address] [address] Oskar Ballard M.D. [id number] IG ABSOLUTE0.04 K/mcLNormal0.00-0.30[facility] HospitalComment on above:Performed By: #### [id number] #### LAB [address] [address] Oskar Ballard M.D. [id number] PERCENT0.30 %[facility] HospitalComment on above:Result Comment: The IG parameter is the percentage of metamyelocytes, myelocytes and promyelocytes.An immature granulocyte count (IG) of 1% or more suggests the possibility of infection, an IG countof 3% is very likely related to an infection.Performed By: #### [id number] #### LAB [address] [address] Oskar Ballard M.D. [id number] (Bld) [#/Vol]0.65 10*3/uLLow0.90-4.00[facility] HospitalComment on above:Performed By: #### [id number] #### LAB [address] [address] Oskar Ballard M.D. [id number]/100 WBC (Bld)5.3 %[facility] Comment on above:Performed By: #### [id number] #### LAB [address] [address] Oskar Ballard M.D. [id number] (RBC) [Entitic mass]28.2 jfThzxtk95.0-34.0[facility] HospitalComment on above:Performed By: #### [id number] #### LAB [address] [address] Oskar Ballard M.D. [id number] (RBC) [Entitic vol]97.1 rPTsrsas73.0-100.0[facility] Comment on above:Performed By: #### [id number] #### LAB [address] [address] Oskar Ballard M.D. [id number] CORPUSCULAR HEMOGLOBIN CONC29.0 g/dLLow31.0-37.0[facility] HospitalComment on above:Performed By: #### [id number] #### LAB [address] [address] Oskar Ballard M.D. [id number] (Bld) [#/Vol]0.96 10*3/uLHigh0.30-0.90 [facility] HospitalComment on above:Performed By: #### [id number] #### LAB [address] [address] Oskar Ballard M.D. [id number] Monocytes/100 WBC (Bld)7.9 %[facility] HospitalComment on above:Performed By: #### [id number] #### LAB [address] [address] Oskar Ballard M.D. [id number] ABSOLUTE COUNT10.23 K/mcLHigh1.70-7.00 [facility] HospitalComment on above:Performed By: #### [id number] #### LAB [address] [address] Oskar Ballard M.D. [id number] Neutrophils/100 WBC (Bld)83.8 %[facility] HospitalComment on above: Performed By: #### [id number] #### LAB [address] [address] Oskar Ballard M.D. [id number] mean volume (Bld) [Entitic vol]9.7 fLNormal9.4-12.4[facility] HospitalComment on above:Performed By: #### [id number] #### LAB [address] [address] Oskar Ballard M.D. [id number] (Bld) [#/Vol]396 10*3/vLIhdtnk923-646Vgwrczxzq Hospital Comment on above:Performed By: #### [id number] ####[facility] [address] [address] Oskar Ballard M.D. [id number] (Bld) [#/Vol]3.09 10*6/uLLow4.50-5.90[facility] HospitalComment on above:Performed By: #### [id number] #### LAB [address] [address] Oskar Ballard M.D. [id number] (Bld) [#/Vol]11.05 10*3/uLHigh4.50-11.00[facility] HospitalComment on above:Performed By: #### [id number] #### LAB [address] [place], [place] [address] Oskar Ballard M.D. [id number] 88-34-0753UMNIJZOMMCPZKQLPDJOINT TOWNSH[facility] CONSULT NOTE Name: Lorenzo Amato Age: 55 y.o. Gender: male PCP: Lion Carlson MD Primary teacher music: Reno Oro MD Reason for consult: CHF [...] dialysis. His volume status is managed by wiring technician. He is currently hypervolemic. Resting rate is [...] 50 mcg (2,000 (more content not included)...Normal [facility] HospitalCONSULTSee consult note from 09/19 AUTHENTICATED BY DELROY FLETCHER, ON 09/20/2025 11:41:10NoKettering Health Main CampusCONSULTDate of admission: 09/19/2025 Admission diagnosis: Hyponatremia [E87.1] Anemia of chronic disease [D63.8] ESRD (end stage renal disease) (HCC) [N18.6] Abdominal wall cellulitis [L03.311] Abdominal pain, unspecified abdominal location [R10.9] No admission procedures for hospital encounter. Referring Provider: Gracie Miller MD Attending provider: [facility], Generic Primary Care Provider: Lion Carlson MD Chief Complaint/Reason for Consult: Hyperglycemia/DM management on insulin pump. History of Present Illness: Lorenzo Amato is a 55 y.o. year old male with hx of anemia, CAD, depression, diabetes mellitus, GERD, dyslipidemia, hypertension, MS, morbid obesity, NABOR, [facility] with abdominal pain and concern for cellulitis by nephrology. Patient reports bilateral flank/low abdomen pain. Denies CP, SOB, Nausea or vomiting. Reports fatigue. Patient had hypoglycemic event this AM with BG of 36. His insulin pump was held at that time. DM type: 2, diagnosed in approx 2003. Home regimen: (managed by Dr. Nowak, Counselor [employer] KAMINSKI) Medtronic insulin pump with smartguard [...] 5 chronic kidney disease (HCC) not on dialysis...MANAGER BANQUET: Dr. Gracie Miller Venous embolism lungs and legs Vitamin D deficiency Past Surgical History: Procedure Laterality Date APPENDECTOMY CARDIAC CATHETERIZATION N/A 06/21/2024 Procedure: Coronary Angiogram; Surgeon: Melba Singh MD; Location: [employer] [facility]; Service: Cardiovascular CARDIAC CATHETERIZATION N/A 06/21/2024 Procedure: Angioplasy w/Stent- Coronary; Surgeon: Melba Singh MD; Location: [employer] [facility]; Service: Cardiovascular CARDIAC CATHETERIZATION N/A 06/21/2024 Procedure: Angioplasty - Intravascular Lithotripsy - Coronary; Surgeon: Melba Singh MD; Location: [employer]; Service: Cardiovascular COLONOSCOPY last was 2014, polyps, [...] IVC FILTER PLACEMENT 2012 for Blood clots [place] L HRT CATH W/NJX L VENTRICULOGRAPHY IMG S&I N/A 06/21/2024 Procedure: Left Heart Cath; Surgeon: Melba Singh MD; Location: [employer] UND[employer]WRITER; Service: Cardiovascular [place] LAPS INSERTION TUNNELED INTRAPERITONEAL CATHETER N/A 05/19/2024 PD cath, ESRF.....Dr. Brian Arevalo TATTOO TEETH EXTRACTION TRANSFUSION BLOOD PRODUCT VASECTOMY Social History[1] Family History Problem Relation Age of Onset Uterine cancer Mother Heart disease Father Rheum arthritis Brother Coronary artery disease Brother [facility] MEDS: Current Medications[2] ALLERGIES: Allergies[3] Review of [...] from Last 3 Encou (more content not included)...[facility] HospitalECHOCARDIOGRAM COMPLETEon 72-50-1997BHQJJCCTZYRYPP COMPLETESummary 1. This study was technically limited, [...] Provider: Delroy Fletcher Referring Physician: Gracie Miller Sales Host: Adwoa Davis [facility] Attending Physician: [facility] Patient Info Site Location: Exam Location: [facility] Name: Lorenzo Amato Age: 55 years : 1970 Gender: Male Ht: 175 cm Wt: 134 kg BSA: 2.62 m2 HR: 52 bpm BP: 92 / 54 mmHg Heart Rhythm: Sinus Rhythm Technical Quality: Fair Exam Date: 09/20/2025 9:35 AM Patient Status: INPATIENT Exam Type: ECHOCARDIOGRAM COMPLETE Study Info Indications I50.9 - Heart failure, unspecified [id number] BMI: 43.56 kg/m2 History/Risk Factors Hypertension: Yes [...] Valve Name Value Normal (more content not included)...[facility] MAGNESIUM LEVELon 65-60-0243Cgdmztoml [Mass/Vol]1.8 mg/dLNoal1.6-2.4[facility] HospitalComment on above:Performed By: #### [id number] ####[address] [address] Oskar Ballard M.D. [id number] GLUCOSE [facility] 65-83-0504Jiqmbzb [Mass/Vol]224 mg/hVFped48-69Yqzrtamkq82 [address] StreetGlucose [Mass/Vol]178 mg/qPVpnk29-74Ihvyfujqu[address] [place], [place] [address]Glucose [Mass/Vol]76 mg/dLNormal 65-[address] [place], [place] [address]Glucose [Mass/Vol]76 mg/yNGlqkgl83-37Zhqopdprx[address] Glucose [Mass/Vol]53 mg/dLOff scale [address]Comment on above: Order Comment: Critical result acted upon time of test. Test performed at bedside.Glucose [Mass/Vol]60 mg/aCLom74-47Vbmmrlpew[address] [place], [place] [address]Glucose [Mass/Vol]93 mg/pOIdcenz09-19Eofajxyxv[address] [place], [place] [address]Glucose [Mass/Vol]63 mg/ePJwo58-05Iaanitdys[address] [place], [place] [address]Glucose [Mass/Vol]36 mg/dLOff scale oim82-66Zkbluzazc HospitalCommymichigan medical [facility] on above:Order Comment: Critical result acted upon time of test. Test performed at bedside.RENAL FUNCTION PANELon 43-00-5414Jblgtku [Mass/Vol]3.0 g/dLLow3.2-5.2 [facility] on above:Order Comment: [facility] has implemented the eGFR calculation approach that does not have a coefficient for race that conforms to the NKF-ASN Task Force Recommendations.Performed By: #### [id number] #### [facility] [address] [place], [place] [address] Lobo Albrecht M.D. [id number] gap [Moles/Vol]21 mmol/DIcje95-99AvjetxnmxCleveland Clinic Marymount Hospital on above:Order Comment: [facility] has implemented the eGFR calculation approach that does not have a coefficient for race that conforms to the NKF-ASN Task Force Recommendations.Performed By: #### [id number] #### [facility] [address] [place], [place] [address] Lobo Albrecht M.D. [id number] [Mass/Vol]8.8 mg/dLNormal8.4-10.2MPaulding County Hospital on above:Order Comment: [facility] has implemented the eGFR calculation approach that does not have a coefficient for race that conforms to the NKF-ASN Task Force Recommendations.Performed By: #### [id number] #### [facility] [address] [place], [place] [address] Lobo Albrecht M.D. [id number] [Moles/Vol]94 mmol/FBth11-833Wlldwwrxt HospitalCommymich[facility] on above:Order Comment: [facility] has implemented the eGFR calculation approach that does not have a coefficient for race that conforms to the NKF-ASN Task Force Recommendations.Performed By: #### [id number] #### [facility] [address] [place], [place] [address] Lobo Albrecht M.D. [id number] [Mass/Vol]6.73 mg/dLHigh0.50-1.30[facility] on above:Order Comment: [facility] has implemented the eGFR calculation approach that does not have a coefficient for race that conforms to the NKF-ASN Task Force Recommendations.Performed By: #### [id number] #### [facility] [address] [place], [place] [address] Lobo Albrecht M.D. [id number] mL/min/1.73 m2Low>=60[facility] on above:Order Comment: [facility] has implemented the eGFR calculation approach that does not have a coefficient for race that conforms to the NKF-ASN Task Force Recommendations.Result Comment: Estimated GFR was calculated using the 2020 CKD-EPI creatinine equation.Performed By: #### [id number] #### [address] [address] Lobo Albrecht M.D. [id number] [Mass/Vol]45 mg/dLOff scale vvy91-85Yeouosuug[address] [place] [address] on above:Order Comment: [facility] has implemented the eGFR calculation approach that does not have a coefficient for race that conforms to the NKF-ASN Task Force Recommendations.Performed By: #### [id number] #### [facility] [address] [place], [place] [address] Lobo Albrecht M.D. [id number] (Bld) [Moles/Vol]21 mmol/YFobxfc26-17MzcdulwlbCleveland Clinic Marymount Hospital on above:Order Comment: [facility] has implemented the eGFR calculation approach that does not have a coefficient for race that conforms to the NKF-ASN Task Force Recommendations.Performed By: #### [id number] #### [facility] [address] [place], [place] [address] Lobo Albrecht M.D. [id number] [Mass/Vol]7.7 mg/dLHigh2.7-4.5[facility] on above:Order Comment: [facility] has implemented the eGFR calculation approach that does not have a coefficient for race that conforms to the NKF-ASN Task Force Recommendations.Performed By: #### [id number] #### [facility] [address] [place] [address] Lobo Albrecht M.D. [id number] [Moles/Vol]3.2 mmol/LLow3.5-5.1MPaulding County Hospital on above:Order Comment: [facility] has implemented the eGFR calculation approach that does not have a coefficient for race that conforms to the NKF-ASN Task Force Recommendations.Performed By: #### [id number] #### [address] [address] Lobo Albrecht M.D. [id number] [Moles/Vol]133 mmol/IOjh765-084TzckezrbuCleveland Clinic Marymount Hospital on above:Order Comment: [facility] has implemented the eGFR calculation approach that does not have a coefficient for race that conforms to the NKF-ASN Task Force Recommendations.Performed By: #### [id number] #### [address] [address] Lobo Albrecht M.D. [id number] nitrogen [Mass/Vol]60 mg/dLHigh8-25[facility] on above:Order Comment: [facility] has implemented the eGFR calculation approach that does not have a coefficient for race that conforms to the NKF-ASN Task Force Recommendations.Performed By: #### [id number] #### [facility] [address] [place] [address] Lobo Albrecht M.D. [id number] nitrogen/Creatinine [Mass ratio]8.9 mg/mgLow10.0-20.0[facility] on above:Order Comment: [facility] has implemented the eGFR calculation approach that does not have a coefficient for race that conforms to the NKF-ASN Task Force Recommendations.Performed By: #### [id number] #### [facility] [address] [place] [address] Lobo Albrecht M.D. [id number] CULTURE AEROBIC/ANAEROBICon 30-65-8735EVCJU CULTURE AEROBIC/ANAEROBICBLOOD CULTURE No Growth after 5 daysMercy Health Allen HospitalComment on above:Performed By: #### [id number] #### [facility] [address] [place] [address] Lobo Albrecht M.D. [id number] CULTURE AEROBIC/ANAEROBICBLOOD CULTURE No Growth after 5 daysFostoria City Hospital HospitalComment on above:Performed By: #### [id number] ####[facility] [address] [place] [address] Lobo Albrecht M.D. [id number] FLUID AEROBIC AND ANAEROBIC CULTUREon 77-60-8221EMHT FLUID AEROBIC AND ANAEROBIC CULTURE CULTURE No Growth after 5 days GRAM STAIN RESULT No WBC Seen No Organisms SeenMercy Health Allen HospitalComment on above:Performed By: #### [id number] ####[facility] [address] [place] [address] Lobo Albrecht M.D. [id number] FLUID CELL COUNT WITH DIFFERENTIALon 23-20-0736MWJYQAYQDN, FLUIDClearMercy Health Allen HospitalComment on above:Performed By: #### [id number] #### LAB [address] [address] Oskar Ballard M.D. [id number], FLUIDColorlessMercy Health Allen HospitalComment on above:Performed By: #### [id number] ####[facility] [address] [address] Oskar Ballard M.D. [id number], FLUID10 % High016 Weiss StreetComment on above:Performed By: #### [id number] #### LAB [address] [address] Oskar Ballard M.D. [id number] MESO/MACRO, FLUID5 %High0-0[facility] HospitalComment on above:Result Comment: Mesothelial cells and/or macrophages.Performed By: #### [id number] #### LAB [address] [address] Oskar Ballard M.D. [id number] MONOCYTES, FLUID53 %High0-0[facility] HospitalComment on above:Performed By: #### [id number] #### LAB [address] [address] Oskar Ballard M.D. [id number], FLUID32 %High0-25[facility] HospitalComment on above: Performed By: #### [id number] #### LAB [address] [address] Oskar Ballard M.D. [id number], FLUID1 /mcLHigh0-0[facility] Comment on above:Performed By: #### [id number] #### LAB [address] [address] Oskar Ballard M.D. [id number]/NUC CELLS, FLUID3 /mcLNormal 0-500[facility] HospitalComment on above:Result Comment: WBC/Nuc cell count includes mesothelial and other non-WBC nucleated cells as reflected in the differential.Performed By: #### [id number] #### LAB [address] [address] Oskar Ballard M.D. [id number] WITH AUTO DIFFERENTIALon 74-44-0400ICDC NRBC0.0 %NormalMedina HospitalComment on above:Performed By: #### [id number] #### LAB [address] [address] Oskar Ballard M.D. [id number] NRBC ABS COUNT0.00 K/mcLNormal0.00-0.00[facility] HospitalComment on above:Performed By: #### [id number] #### LAB [address] [address] Oskar Ballard M.D. [id number] ABSOLUTE COUNT0.04 K/mcLNormal0.00-0.30[facility] HospitalComment on above:Performed By: #### [id number] #### LAB [address] [address] Oskar Ballard M.D. [id number]/100 WBC (Bld)0.4 %[facility] HospitalComment on above:Performed By: #### [id number] #### LAB [address] [address] Oskar Ballard M.D. [id number] (Bld) [#/Vol]0.13 10*3/uL Normal0.00-0.50[facility] HospitalComment on above:Performed By: #### [id number] #### LAB [address] [address] Oskar Ballard M.D. [id number]/100 WBC (Bld)1.2 %[facility] HospitalComment on above:Performed By: #### [id number] #### LAB [address] [address] Oskar Ballard M.D. [id number] distribution width (RBC) [Ratio]17.7 %High11.6-14.8[facility] HospitalComment on above:Performed By: #### [id number] #### LAB [address] [address] Oskar Ballard M.D. [id number] (Bld) [Volume fraction]29.5 %Low41.0-53.0[facility] HospitalComment on above:Performed By: #### [id number] #### LAB [address] [address] Oskar Ballard M.D. [id number] (Bld) [Mass/Vol]8.9 g/dLLow13.5-17.5[facility] HospitalComment on above:Performed By: #### [id number] #### LAB [address] [address] Oskar Ballard M.D. [id number] ABSOLUTE0.05 K/mcLNormal0.00-0.30[facility] Comment on above:Performed By: #### [id number] #### LAB [address] [address] Oskar Ballard M.D. [id number] PERCENT0.50 %[facility] City HospitalComment on above:Result Comment: The IG parameter is the percentage of metamyelocytes, myelocytes and promyelocytes.An immature granulocyte count (IG) of 1% or more suggests the possibility of infection, an IG countof 3% is very likely related to an infection.Performed By: #### [id number] #### LAB [address] [address] Oskar Ballard M.D. [id number] (Bld) [#/Vol]0.46 10*3/uLLow0.90-4.00[facility] Comment on above:Performed By: #### [id number] #### LAB [address] [address] Oskar Ballard M.D. [id number]/100 WBC (Bld)4.4 %[facility] HospitalComment on above:Performed By: #### [id number] #### LAB [address] [address] Oskar Ballard M.D. [id number] (RBC) [Entitic mass]28.5 ocGsmhaf90.0-34.0[facility] Comment on above:Performed By: #### [id number] #### LAB [address] [place] [address] Oskar Ballard M.D. [id number] (RBC) [Entitic vol]94.6 uEJbfibf47.0-100.0Medina HospitalComment on above:Performed By: #### [id number] #### LAB [address] [place] [address] Oskar Ballard M.D. [id number] CORPUSCULAR HEMOGLOBIN CONC30.2 g/dLLow31.0-37.0Medina HospitalComment on above:Performed By: #### [id number] #### LAB [address] [place] [address] Oskar Ballard M.D. [id number] (Bld) [#/Vol]0.60 10*3/uLNormal0.30-0.90Medina HospitalComment on above:Performed By: #### [id number] #### LAB [address] [place] [address] Oskar Ballard M.D. [id number]/100 WBC (Bld)5.8 %[facility] Comment on above:Performed By: #### [id number] #### LAB [address] [place] [address] Oskar Ballard M.D. [id number] ABSOLUTE COUNT9.15 K/mcLHigh1.70-7.00Medina HospitalComment on above:Performed By: #### [id number] #### LAB [address] [place] [address] Oskar Ballard M.D. [id number]/100 WBC (Bld)87.7 %[facility] Comment on above:Performed By: #### [id number] #### LAB [address] [place] [address] Oskar Ballard M.D. [id number] mean volume (Bld) [Entitic vol]10.0 fLNormal9.4-12.4Medina HospitalComment on above: Performed By: #### [id number] #### LAB [address] [place] [address] Oskar Ballard M.D. [id number] (Bld) [#/Vol]349 10*3/uLNormal 150-400Medina HospitalComment on above:Performed By: #### [id number] #### LAB [address] [place] [address] Oskar Ballard M.D. [id number] (Bld) [#/Vol]3.12 10*6/uLLow4.50-5.90Medina HospitalComment on above: Performed By: #### [id number] #### LAB [address] [place] [address] Oskar Ballard M.D. [id number] (Bld) [#/Vol]10.43 10*3/uLNormal 4.50-11.00Medina HospitalComment on above:Performed By: #### [id number] #### LAB [address] [place] [address] Oskar Ballard M.D. [id number] COMPREHENSIVE METABOLIC PANELon 58-94-5886Naqcruq [Mass/Vol]2.9 g/dLLow3.2-5.2 Medina HospitalComment on above:Order Comment: Injury/Trauma or Illness?:Illness/Other How long have you had these symptoms (acute/chronic)?:Acute Reason for exam?:Abdominal pain, acute, nonlocalized, Peritonitis or perforation suspected, Sepsis,Per nephrology concerning for EPS Type of Exam?:Initial Additional signs and symptoms?:SOBPerformed By: #### [id number] #### LAB [address] [place] [address] Oskar Ballard M.D. [id number] [Catalytic activity/Vol]207 U/EZknt96-960Uqbwfbyvy HospitalCommymichigan [facility] on above: Order Comment: Injury/Trauma or Illness?:Illness/Other How long have you had these symptoms (acute/chronic)?:Acute Reason for exam?:Abdominal pain, acute, nonlocalized, Peritonitis or perforation suspected, Sepsis,Per nephrology concerning for EPS Type of Exam?:Initial Additional signs and symptoms?:SOBPerformed By: #### [id number] #### LAB [address] [place] [address] Oksar Ballard M.D. [id number] [Catalytic activity/Vol]30 U/LNormal0-50 U/[place] [facility] SystemComment on above: Order Comment: Injury/Trauma or Illness?:Illness/Other How long have you had these symptoms (acute/chronic)?:Acute Reason for exam?:Abdominal pain, acute, nonlocalized, Peritonitis or perforation suspected, Sepsis,Per nephrology concerning for EPS Type of Exam?:Initial Additional signs and symptoms?:SOBPerformed By: #### [id number] #### LAB [address] [place] [address] Oskar Ballard M.D. [id number] gap [Moles/Vol]23 mmol/UTjfy40-51Gqqdrvvvd HospitalCommymichigan medical [facility] on above:Order Comment: Injury/Trauma or Illness?:Illness/Other How long have you had these symptoms (acute/chronic)?:Acute Reason for exam?:Abdominal pain, acute, nonlocalized, Peritonitis or perforation suspected, Sepsis,Per nephrology concerning for EPS Type of Exam?:Initial Additional signs and symptoms?:SOBPerformed By: #### [id number] ####MH LAB [address] [place] [address] Oskar Ballard M.D. [id number] [Catalytic activity/Vol]35 U/LNormal0-50 U/[place] [facility] SystemCommymichigan medical [facility] on above: Order Comment: Injury/Trauma or Illness?:Illness/Other How long have you had these symptoms (acute/chronic)?:Acute Reason for exam?:Abdominal pain, acute, nonlocalized, Peritonitis or perforation suspected, Sepsis,Per nephrology concerning for EPS Type of Exam?:Initial Additional signs and symptoms?:SOBResult Comment: Slightly HemolyzedPerformed By: #### [id number] ####[facility] LAB [address] [place] [address] Oskar Ballard M.D. [id number] [Mass/Vol]0.8 mg/dLNormal0.0-1.3MOhio State Health SystemCommymichigan medical center [place] on above:Order Comment: Injury/Trauma or Illness?:Illness/Other How long have you had these symptoms (acute/chronic)?:Acute Reason for exam?:Abdominal pain, acute, nonlocalized, Peritonitis or perforation suspected, Sepsis,Per nephrology concerning for EPS Type of Exam?:Initial Additional signs and symptoms?:SOBPerformed By: #### [id number] #### LAB [address] [place] [address] Oskar Ballard M.D. [id number] [Mass/Vol]8.6 mg/dLNormal8.4-10.2MOhio State Health SystemComment on above:Order Comment: Injury/Trauma or Illness?:Illness/Other How long have you had these symptoms (acute/chronic)?:Acute Reason for exam?:Abdominal pain, acute, nonlocalized, Peritonitis or perforation suspected, Sepsis,Per nephrology concerning for EPS Type of Exam?:Initial Additional signs and symptoms?:SOBPerformed By: #### [id number] #### LAB [address] [place] [address] Oskar Ballard M.D. [id number] [Moles/Vol]92 mmol/KAna50-350Mwmqmsioy HospitalCommymichigan medical [facility] on above:Order Comment: Injury/Trauma or Illness?:Illness/Other How long have you had these symptoms (acute/chronic)?:Acute Reason for exam?:Abdominal pain, acute, nonlocalized, Peritonitis or perforation suspected, Sepsis,Per nephrology concerning for EPS Type of Exam?:Initial Additional signs and symptoms?:SOBPerformed By: #### [id number] #### LAB [address] [place] [address] Oskar Ballard M.D. [id number] Creatinine [Mass/Vol]6.68 mg/dLHigh0.50-1.30[facility] on above: Order Comment: Injury/Trauma or Illness?:Illness/Other How long have you had these symptoms (acute/chronic)?:Acute Reason for exam?:Abdominal pain, acute, nonlocalized, Peritonitis or perforation suspected, Sepsis,Per nephrology concerning for EPS Type of Exam?:Initial Additional signs and symptoms?:SOBPerformed By: #### [id number] #### LAB [address] [place] [address] Oskar Ballard M.D. [id number] mL/min/1.73 m2Low>=60Medina HospitalComment on above:Order Comment: Injury/Trauma or Illness?:Illness/Other How long have you had these symptoms (acute/chronic)?:Acute Reason for exam?:Abdominal pain, acute, nonlocalized, Peritonitis or perforation suspected, Sepsis,Per nephrology concerning for EPS Type of Exam?:Initial Additional signs and symptoms?:SOBResult Comment: Estimated GFR was calculated using the 2020 CKD-EPI creatinine equation.Performed By: #### [id number] #### LAB [address] [place] [address] Oskar Ballard M.D. [id number] Glucose [Mass/Vol]309 mg/eHOnqu39-06Xxrksuice82 Mcpherson StreetComment on above:Order Comment: Injury/Trauma or Illness?:Illness/Other How long have you had these symptoms (acute/chronic)?:Acute Reason for exam?:Abdominal pain, acute, nonlocalized, Peritonitis or perforation suspected, Sepsis,Per nephrology concerning for EPS Type of Exam?:Initial Additional signs and symptoms?:SOBPerformed By: #### [id number] #### LAB [address] [place] [address] Oskar Ballard M.D. [id number] (Bld) [Moles/Vol]18 mmol/FLia67-38Jahfcmviy[address] [place], [place] [address]Comment on above:Order Comment: Injury/Trauma or Illness?:Illness/Other How long have you had these symptoms (acute/chronic)?:Acute Reason for exam?:Abdominal pain, acute, nonlocalized, Peritonitis or perforation suspected, Sepsis,Per nephrology concerning for EPS Type of Exam?:Initial Additional signs and symptoms?:SOBPerformed By: #### [id number] #### LAB [address] [place] [address] Oskar Ballard M.D. [id number] [Moles/Vol]4.3 mmol/LNormal3.5-5.1MOhio State Health SystemComment on above:Order Comment: Injury/Trauma or Illness?:Illness/Other How long have you had these symptoms (acute/chronic)?:Acute Reason for exam?:Abdominal pain, acute, nonlocalized, Peritonitis or perforation suspected, Sepsis,Per nephrology concerning for EPS Type of Exam?:Initial Additional signs and symptoms?:SOBResult Comment: Slightly HemolyzedPerformed By: #### [id number] #### LAB [address] [place] [address] Oskar Ballard M.D. [id number] [Mass/Vol]7.1 g/dLNormal6.0-8.0[facility] Comment on above:Order Comment: Injury/Trauma or Illness?:Illness/Other How long have you had these symptoms (acute/chronic)?:Acute Reason for exam?:Abdominal pain, acute, nonlocalized, Peritonitis or perforation suspected, Sepsis,Per nephrology concerning for EPS Type of Exam?:Initial Additional signs and symptoms?:SOBPerformed By: #### [id number] #### LAB [address] [place] [address] Oskar Ballard M.D. [id number] [Moles/Vol]129 mmol/WMxx656-627Ltyvibfur HospitalComment on above:Order Comment: Injury/Trauma or Illness?:Illness/Other How long have you had these symptoms (acute/chronic)?:Acute Reason for exam?:Abdominal pain, acute, nonlocalized, Peritonitis or perforation suspected, Sepsis,Per nephrology concerning for EPS Type of Exam?:Initial Additional signs and symptoms?:SOBPerformed By: #### [id number] #### LAB [address] [place] [address] Oskar Ballard M.D. [id number] nitrogen [Mass/Vol]63 mg/dLWebster County Memorial Hospital8-25Medina HospitalComment on above:Order Comment: Injury/Trauma or Illness?:Illness/Other How long have you had these symptoms (acute/chronic)?:Acute Reason for exam?:Abdominal pain, acute, nonlocalized, Peritonitis or perforation suspected, Sepsis,Per nephrology concerning for EPS Type of Exam?:Initial Additional signs and symptoms?:SOBPerformed By: #### 72830 #### LAB [address] [place], [place] [address] Oskar Ballard M.D. [id number] nitrogen/Creatinine [Mass ratio]9.4 mg/mgLow10.0-20.0Medina HospitalComment on above:Order Comment: Injury/Trauma or Illness?:Illness/Other How long have you had these symptoms (acute/chronic)?:Acute Reason for exam?:Abdominal pain, acute, nonlocalized, Peritonitis or perforation suspected, Sepsis,Per nephrology concerning for EPS Type of Exam?:Initial Additional signs and symptoms?:SOBPerformed By: #### [id number] #### LAB [address] [place], [place] [address] Oskar Ballard M.D. [id number] ABDOMEN PELVIS WITH CONTRASTon [id number] ABDOMEN PELVIS WITH CONTRAST EXAMINATION: CT ABDOMEN [...] disease. 7. Additional incidental findings as above. [facility] Workstation ID: [id number] Dictated by: NACHO BENNETT on WedSep 19, 2025 4:18:15 PM EST Transcribed by: MANDI MOON on WedSep 19, 2025 5:03:02 PM EST Finalized by: NACHO BENNETT on WedSep 20, 2025 7:20:55 AM [facility] HospitalComment on above:Order Comment: Injury/Trauma or Illness?:Illness/Other How long have you had these symptoms (acute/chronic)?:Acute Reason for exam?:Abdominal pain, acute, nonlocalized, Peritonitis or perforation suspected, Sepsis,Per nephrology concerning for EPS Type of Exam?:Initial Additional signs and symptoms?:SOBED Prov Noteon [id number] Prov Note [facility] ED note NAME: Lorenzo Amato 55 y.o. 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 Gracie Miller Venous embolism lungs and legs Vitamin D deficiency PMSx: Past Surgical History: Procedure Laterality Date APPENDECTOMY CARDIAC CATHETERIZATION N/A 06/21/2024 Procedure: Coronary Angiogram; Surgeon: Melba Singh MD; Location: [employer] [facility]; Service: Cardiovascular CARDIAC CATHETERIZATION N/A 06/21/2024 Procedure: Angioplasy w/Stent- Coronary; Surgeon: Melba Singh MD; Location: [employer] [facility]; Service: Cardiovascular CARDIAC CATHETERIZATION N/A 06/21/2024 Procedure: Angioplasty - Intravascular Lithotripsy - Coronary; Surgeon: Melba Singh MD; Location: [employer] [facility]; Service: Cardiovascular COLONOSCOPY last was 2014, polyps, done in [place], 2 procdures CORONARY ANGIOPLASTY WITH STENT PLACEMENT has had 2 surgeries, 2019 most recent CV IR INTERVENTIONAL RADIOLOGY N/A 06/16/2024 Procedure: VR Dialysis Cath Insert Tunnel; Surgeon: Dariusz Modi MD; Location: IR LAB; Service: Interventional Radiology; Laterality: N/A; ESOPHAGOGASTRODUODENOSCOPY last was done in [place], gastic tumor, INSULIN PUMP AND GLUCOSE SENSOR IR IVC FILTER PLACEMENT 2012 for Blood clots [place] L HRT CATH W/NJX L VENTRICULOGRAPHY IMG S&I N/A 06/21/2024 Procedure: Left Heart Cath; Surgeon: Melba Singh MD; Location: [employer] [facility]; Service: Cardiovascular [place] LAPS INSERTION TUNNELED INTRAPERITONEAL CATHETER N/A 05/19/2024 [...] Take 1 (one) t (more content not included)...[facility] HospitalHEMOGLOBIN A1Con 67-13-6546Eqhpnqd [Mass/Vol]275 mg/gNEopr17-785Mwxeqilwr HospitalComment on above:Performed By: #### [id number] #### [facility] LAB [address] [place] [address] Lobo Albrecht M.D. [id number] (Bld) [Mass fraction]11.2 %High4.2-5.6MOhio State Health SystemComment on above:Performed By: #### [id number] #### [facility] LAB [address] [place], [place] [address] Lobo Albrecht M.D. [id number] B SURFACE ANTIGENon 69-14-2874SBXNHKASF B SURFACE ANTIGEN NegativeNormalNegativeMedina HospitalComment on above:Order Comment: Injury/Trauma or Illness?:Illness/Other How long have you had these symptoms (acute/chronic)?:Acute Reason for exam?:Abdominal pain, acute, nonlocalized, Peritonitis or perforation suspected, Sepsis,Per nephrology concerning for EPS Type of Exam?:Initial Additional signs and symptoms?:SOBPerformed By: #### [id number] ####[facility] [address] [place] [address] Lobo Albrecht M.D. [id number] ACID, PLASMAon 55-22-4775XLKPYM ACID, PLASMA 2.6 mmol/LHigh0.6-2.0Medina HospitalComment on above:Performed By: #### [id number] #### [facility] LAB [address] [place], [place] [address] Lobo Albrecht M.D. [id number] GLUCOSE - [facility] CENTERSon 09-59-3808Aiuvpsn [Mass/Vol]114 mg/nCJrcf75-31 Medina HospitalGlucose [Mass/Vol]128 mg/wAIwbf43-63Wpvzqmlwf82 Mcpherson StreetREFLEX LACTIC ACID, PLASMAon 76-91-5067IAOECK ACID, PLASMA2.0 mmol/LNormal0.6-2.0 Medina HospitalComment on above:Performed By: #### [id number] ####[facility] [address] [place] [address] Oskar Ballard M.D. [id number] Panel Informationon 98-26-6465IBVVOTSP/IMPRESSION: Grade 3 Kellgren-Enrrique osteoarthritic changes bilaterally without acute change. Chondrocalcinosis. No joint effusion. MHPN RIS CONSOLIDATEDEXAM: XR KNEE RIGHT (MIN 4 VIEWS), XR KNEE LEFT (MIN 4 VIEWS) HISTORY: Primary osteoarthritis of both knees. COMPARISON: None. [facility] Cornelius Myers Jr., MD - 06/15/2025 EXAM: XR KNEE RIGHT (MIN 4 VIEWS), XR KNEE LEFT (MIN 4 VIEWS) HISTORY: Primary osteoarthritis of both knees. COMPARISON: None. IMPRESSION: FINDINGS/IMPRESSION: Grade 3 Kellgren-Enrrique osteoarthritic changes bilaterally without acute change. Chondrocalcinosis. No joint effusion. [facility] Panel InformationOrdered By: Cornelius Mcmullen on [id number] Stonewall Jackson HospitalBedford Energy Work Phone: XR KNEE LEFT (MIN 4 VIEWS)on 89-70-1637VN KNEE LEFT (MIN 4 VIEWS)EXAM: XR KNEE RIGHT (MIN 4 VIEWS), XR KNEE LEFT (MIN 4 VIEWS) HISTORY: Primary osteoarthritis of both knees. COMPARISON: None. IMPRESSION: FINDINGS/IMPRESSION: Grade 3 Kellgren-Enrrique osteoarthritic changes bilaterally without acute change. Chondrocalcinosis. No joint effusion. Interpreted by: Cornelius Mcmullen Jr., MD Signed by: Cornelius Mcmullen Jr., MD 06/15/25 Final resultNormMain Campus Medical CenterXR KNEE RIGHT (MIN 4 VIEWS)on 06-15-2025 XR KNEE RIGHT (MIN 4 VIEWS)EXAM: XR KNEE RIGHT (MIN 4 VIEWS), XR KNEE LEFT (MIN 4 VIEWS) HISTORY: Primary osteoarthritis of both knees. COMPARISON: None. IMPRESSION: FINDINGS/IMPRESSION: Grade 3 Kellgren-Enrrique osteoarthritic changes bilaterally without acute change. Chondrocalcinosis. No joint effusion. Interpreted by: Cornelius Mcmullen Jr., MD Signed by: Cornelius Mcmullen Jr., MD 06/15/25 Final resultNormOhioHealth Grant Medical Center Panel Informationon 06-14-2025 Radiology Study observation (narrative)[facility] LocoMobiChromogranin Aon [id number] A671 ng/mL30 Martinez StreetComment on above: Result Comment: (NOTE) INTERPRETIVE INFORMATION: Chromogranin A, Serum This test is performed using the Gimahhot CGA II Kryptor kit. Results obtained with [...] 14 days prior to testing. Performed by [email or web address], [address] [place] [address] [id number] [email or web address], Han Carr MD, Lab. Director [facility] Number: [id number] By: #### ACHRGA #### [facility] [address] [place] [address] Roadside Mechanic: Han Carr MD #### CDP, CP #### [facility] [address] [place] [address] [place] [address] Roadside Mechanic: Nacho Reaves [facility] with Auto Differentialon 30-41-0776Dxahnsk (P) [Moles/Vol]0.4 umol/LBon Secours Mercy HealthBasophils (Bld) [#/Vol]0 10*3/uL [facility] HealthBasophils/100 WBC (Bld)0 %0 - 2 %[facility] HealthEosinophils (Bld) [#/Vol]0.2 10*3/uLBon Secours Mercy Health Eosinophils/100 WBC (Bld)3 %1 - 4 %[facility] HealthErythrocyte distribution width (RBC) [Ratio]16.5 %High11.8 - 14.4 %[facility] Hematocrit (Bld) [Volume fraction]34.5 %Low40.7 - 50.3 %[facility] Hemoglobin (Bld) [Mass/Vol]10.2 g/dLLow13.0 - 17.0 g/dLBon [facility] Immature granulocytes (Bld) [#/Vol]0 10*3/uLBon Adena Regional Medical CenterImmature granulocytes/100 WBC (Bld)0 %0Bon [facility] Medical CenterInterpretation and review of laboratory resultsAbnormalBon [facility] Regional Medical CenterLymphocytes/100 WBC (Bld)7 %Low24 - 43 %[facility] CenterLymphocytes/100 WBC (Bld)0.48 %LowBon [facility] North HospitalH (RBC) [Entitic mass]28.4 pg25.2 - 33.5 pgSentara CarePlex HospitalHC (RBC) [Mass/Vol]29.6 g/dL28.4 - 34.8 g/dLBon [facility]da North HospitalV (RBC) [Entitic vol]96.1 fL82.6 - 102.9 fLRiverside Shore Memorial Hospital Monocytes/100 WBC (Bld)6 %3 - 12 %[facility] HospitalMonocytes/100 WBC (Bld)0.41 %[facility] HospitalMorphology Willi (Bld) [Interp]Platelet scan shows Normal PlateletsRiverside Shore Memorial HospitalNeutrophils/100 WBC (Bld)84 %High 36 - 65 %[facility] HospitalNucleated RBC/100 WBC (Bld) [Ratio]0 %0.0 per 100 WBCRiverside Shore Memorial HospitalPlatelet mean volume (Bld) [Entitic vol]9.5 fL8.1 - 13.5 fLBon [facility] HealthPlatelets (Bld) [#/Vol]281 10*3/uLBon SecCorey HospitalRBC (Bld) [#/Vol]3.59 10*6/uLLow4.21 - 5.77 m/uLBon Adena Regional Medical CenterSegmented neutrophils/100 WBC (Bld)5.71 %[facility] HospitalComment on above:CORRECTED ON 04/23 AT 1907: PREVIOUSLY REPORTED 5.72WBC other (Bld) [#/Vol]6.8Bon [facility] Medical CenterBon SecNationwide Children's Hospital with Diffon 97-24-1423Oeu.Neutrophil (Seg)5.71 k/uLNormal1.50-8.10[facility] Comment on above:Result Comment: CORRECTED ON 04/23 AT 1907: PREVIOUSLY REPORTED 5.72Performed By: #### ACHRGA #### [facility] [address] [place] [address] Roadside Mechanic: Han Carr MD #### TIFFANY, CP #### [facility] [address] [place] [address] Roadside Mechanic: ALIYAH Mckeononocytes (Bld) [#/Vol]0.41 10*3/uLNormal0.10-1.20 [facility] HospitalComment on above:Performed By: #### ACHRGA #### [facility] [address] [place] [address] Roadside Mechanic: Han Carr MD #### TIFFANY, CP #### [facility] [address] [place], [facility] Roadside Mechanic: Fifi Mckeon. Basophil0.00 k/uLNormal0.0-0.2MMercy Health Urbana HospitalComment on above:Performed By: #### ACHRGA #### [facility] [address] [place] [address] Roadside Mechanic: Han Carr MD #### TIFFANY, CP #### [facility] [address] [place] [address] Roadside Mechanic: MDAbs. MikeImm.Granulocyte0.00 k/uLNormal0.00-0.30[facility] HospitalComment on above:Performed By: #### ACHRGA #### [facility] [address] [place] [address] Roadside Mechanic: Han Carr MD #### CDP, CP #### [facility] [address] [place] [address] Roadside Mechanic: Ludmila Mckeononia (P) [Moles/Vol]0.4 umol/LNormalCincinnati Children'S [facility] HospitalComment on above:Performed By: #### ACHRGA #### [facility] [address] [place], [place] [id number] Roadside Mechanic: Han Carr MD #### CDP, CP #### [facility] [address] [place] [address] Roadside Mechanic: Nacho Reaves MDBasophils/100 WBC (Bld)0 %Normal0-2[facility] HospitalComment on above:Performed By: #### ACHRGA #### [facility] [address] [place] [address] Roadside Mechanic: Han Carr MD #### CDP, CP #### [facility] [address] [place] [address] Roadside Mechanic: Nacho Reaves MDEosinophils (Bld) [#/Vol]0.20 10*3/uLNormal 0.00-0.44[facility] HospitalComment on above:Performed By: #### ACHRGA #### [facility] [address] [place], [place] [id number] Roadside Mechanic: Han Carr MD #### CDP, CP #### [facility] [address] [place] [address] Roadside Mechanic: Nacho Reaves MDEosinophils/100 WBC (Bld)3 %Normal1-4[facility] HospitalComment on above:Performed By: #### ACHRGA #### [facility] [address] [place] [address] Roadside Mechanic: Han Carr MD #### CDP, CP #### [facility] [address] [place], [place] [id number] Roadside Mechanic: Nacho Reaves MDImmature granulocytes/100 WBC (Bld)0 %Rbwmjm4RluuyAvita Health System Galion HospitalComment on above:Performed By: #### ACHRGA #### [facility] [address] [place] [address] Roadside Mechanic: Han Carr MD #### CDP, CP #### [facility] [address] [place] [address] [address] [place], [place] [id number] Roadside Mechanic: Nacho Reaves MDLymphocytes (Bld) [#/Vol]0.48 10*3/uLLow1.10-3.70 [facility] HospitalComment on above:Performed By: #### ACHRGA #### [facility] [address] [place] [address] Roadside Mechanic: Han Carr MD #### CDP, CP #### [facility] [address] [place] [address] [address] [place], [place] [id number] Roadside Mechanic: Nacho Reaves MDLymphocytes/100 WBC (Bld)7 %Eej92-06Gktox Cucumber HospitalComment on above:Performed By: #### ACHRGA #### [facility] [address] [place] [address] Roadside Mechanic: Han Carr MD #### CDP, CP #### [facility] [address] [place] [address] [address] [place], [place] [id number] Roadside Mechanic: ALIYAH Mckeononocytes/100 WBC (Bld)6 %Normal3-12[facility] HospitalComment on above:Performed By: #### ACHRGA #### [facility] [address] [place] [address] Roadside Mechanic: Han Carr MD #### CDP, CP #### [facility] [address] [place] [address] [place] [address] Roadside Mechanic: ALIYAH Mckeonorphology Willi (Bld) [Interp]Platelet scan shows Normal PlateletsNormalAvita Health System Galion HospitalComment on above:Performed By: #### ACHRGA #### [facility] [address] [place] [address] Roadside Mechanic: Han Carr MD #### CDP, CP #### [facility] [address] [place] [address] [place] [place], [place] [id number] Roadside Mechanic: Nacho Reaves MDNeutrophil (Seg)84 %Lhkq75-02XyzlvAvita Health System Galion Hospital Comment on above:Performed By: #### ACHRGA #### [facility] [address] [place] [address] Roadside Mechanic: Han Carr MD #### CDP, CP #### [address] [place], [place] [id number] Roadside Mechanic: Nacho Reaves MDErythrocyte distribution width (RBC) [Ratio]16.5 % High11.8-14.4[facility] HospitalComment on above:Performed By: #### ACHRGA #### [facility] [address] [place] [address] Roadside Mechanic: Han Carr MD #### CDP, CP #### [facility] [address] [place] [address] Dr[address] [place], [place] [id number] Roadside Mechanic: Nacho Reaves MDHematocrit (Bld) [Volume fraction]34.5 %Low 40.7-50.3[facility] Kimball HospitalComment on above:Performed By: #### ACHRGA #### [facility] [address] [place] [address] Roadside Mechanic: Han Carr MD #### CDP, CP #### [address] [place] [address] Roadside Mechanic: Nacho Reaves MDHemoglobin (Bld) [Mass/Vol]10.2 g/dLLow13.0-17.0 [facility] HospitalComment on above:Performed By: #### ACHRGA #### [facility] [address] [place] [address] Roadside Mechanic: Han Carr MD #### CDP, CP #### [address] [place] [address] Roadside Mechanic: ALIYAH MckeonCH (RBC) [Entitic mass]28.4 leTdyugp62.2-33.5 [facility] HospitalComment on above:Performed By: #### ACHRGA #### [facility] [address] [place], [place] [id number] Roadside Mechanic: Han Carr MD #### TIFFANY, CP #### [address] [place] [address] Roadside Mechanic: CLEMENTE MckeonC (RBC) [Mass/Vol]29.6 g/fZUrrlkn51.4-34.8[facility] HospitalComment on above:Performed By: #### ACHRGA #### [facility] [address] [place], [place] [id number] Roadside Mechanic: Han Carr MD #### CDP, CP #### [address] [place] [address] Roadside Mechanic: ALIYAH MckeonCV (RBC) [Entitic vol]96.1 zSMqzpyv74.6-102.9 [facility] HospitalComment on above:Performed By: #### ACHRGA #### [facility] [address] [place], [place] [id number] Roadside Mechanic: Han Carr MD #### CDP, CP #### [address] [place] [address] Roadside Mechanic: KIMBERLY MckeonBC Automated0.0 per 100 WBCNormal0.0[facility] HospitalComment on above:Performed By: #### ACHRGA #### [facility] [address] [place] [address] Roadside Mechanic: Han Carr MD #### CDP, CP #### [facility] [address] [place] [address] [address] [place] [place] [id number] Roadside Mechanic: Baldev Mckeon mean volume (Bld) [Entitic vol]9.5 fL Normal8.1-13.5[facility] HospitalComment on above:Performed By: #### ACHRGA #### [facility] [address] [place] [address] Roadside Mechanic: Han Carr MD #### CDP, CP #### [facility] [address] [place] [address] [address] [place] [place] [phone] Roadside Mechanic: Seble Mckeon (Bld) [#/Vol]281 10*3/xQUhamzo692-252 [facility] HospitalComment on above:Performed By: #### ACHRGA #### [facility] [address] [place] [address] Roadside Mechanic: Han Carr MD #### CDP, CP #### [facility] [address] [place] [address] Dr. [place] [phone] Roadside Mechanic: RUTH Mckeon (Bld) [#/Vol]3.59 10*6/uLLow4.21-5.77[facility] HospitalComment on above:Performed By: #### ACHRGA #### [facility] [address] [place] [address] Roadside Mechanic: Han Carr MD #### CDP, CP #### [facility] [address] [place] [address] [place] [address] Roadside Mechanic: Nacho Sturtz, MDWBC (Bld) [#/Vol]6.8 10*3/uLNormal3.5-11.3M[facility] health [facility] rita[facility] medical centery Day Kimball HospitalComment on above:Performed By: #### ACHRGA #### [facility] [address] [place] [address] Roadside Mechanic: Han Carr MD #### CDP, CP #### [address] [place], [place] [id number] Roadside Mechanic: SHAMAR Mckeonbrigham city community hospital Metabolic Profon 44-91-3536Sxkrplf [Mass/Vol] 3.7 g/dLNormal3.5-5.2Mmercy health [facility] rita's medical centery Cucumber HospitalComment on above:Performed By: #### ACHRGA #### [facility] [address] [place] [address] Roadside Mechanic: Han Carr MD #### CDP, CP #### [address] [place], [place] [phone] Roadside Mechanic: Nacho Reaves MDAlbumin/Glob Ratio1.0Gznhci2.0-2.5[facility] HospitalComment on above:Performed By: #### ACHRGA #### [facility] [address] [place] [address] Roadside Mechanic: Han Carr MD #### TIFFANY, CP #### [address] [place], [place] [id number] Roadside Mechanic: Fidencio Mckeonline Qrvo144 U/KPhpo96-844HxzzdAvita Health System Galion HospitalComment on above:Performed By: #### ACHRGA #### [facility] [address] [place] [address] Roadside Mechanic: Han Carr MD #### CDP, CP #### [address] [place] [address] Roadside Mechanic: Nacho Sturtz, MDALT [Catalytic activity/Vol]9 U/XVvt43-72Eoeme [facility]iffin HospitalComment on above:Performed By: #### ACHRGA #### [facility] [address] [place] [address] Roadside Mechanic: Han Carr MD #### CDP, CP #### [facility] [address] [place] [address] Dr[address] [place], [place] 1947[address] Roadside Mechanic: Estela Mckeon gap [Moles/Vol]17 mmol/LHigh9-16[facility] HospitalComment on above:Performed By: #### ACHRGA #### [facility] [address] [place] [address] Roadside Mechanic: Han Carr MD #### CDP, CP #### [facility] [address] [place] [address] Dr. [place], [place] [phone] Roadside Mechanic: Nacho Reaves MDAST [Catalytic activity/Vol]15 U/WIuakly10-48Qjojv [facility]in HospitalComment on above:Performed By: #### ACHRGA #### [facility] [address] [place] [address] Roadside Mechanic: Han Carr MD #### CDP, CP #### [facility] [address] [place] [address] Dr. [place], [place] [phone] Roadside Mechanic: Nacho Reaves MDBilirubin [Mass/Vol]0.3 mg/dLNormal0.00-1.20[facility] HospitalComment on above:Performed By: #### ACHRGA #### [facility] [address] [place] [address] Roadside Mechanic: Han Carr MD #### CDP, CP #### [facility] [address] [place] [address] Dr. [place], [place] [phone] Roadside Mechanic: Nacho Reaevs MDBUN/CRE Rdolt9Cqh9-48Lyoqe [facility]in HospitalComment on above:Performed By: #### ACHRGA #### [facility] [address] [place] [address] Roadside Mechanic: Han Carr MD #### CDP, CP #### [address] [place] [address] Roadside Mechanic: Nacho Reaves MDCalcium [Mass/Vol]9.3 mg/dLNormal8.6-10.4[facility] Cucumber HospitalComment on above:Performed By: #### ACHRGA #### [facility] [address] [place] [address] Roadside Mechanic: Han Carr MD #### CDP, CP #### [address] [place] [address] Roadside Mechanic: Nacho Reaves MDChloride [Moles/Vol]98 mmol/QFsgloi76-090Ixwdz [facility]umber HospitalComment on above:Performed By: #### ACHRGA #### [facility] [address] [place] [address] Roadside Mechanic: Han Carr MD #### CDP, CP #### [address] [place] [address] Roadside Mechanic: Nacho Reaves MDCO2 [Moles/Vol]21 mmol/DJvrnpw30-99Bzlmx [facility] HospitalComment on above:Performed By: #### ACHRGA #### [facility] [address] [place] [address] Roadside Mechanic: Han Carr MD #### CDP, CP #### [address] [place] [address] Roadside Mechanic: Nacho Reaves MDCreatinine [Mass/Vol]6.9 mg/dLCritically high 0.70-1.20[facility] Cucumber HospitalComment on above:Performed By: #### ACHRGA #### [facility] [address] [place] [address] Roadside Mechanic: Han Carr MD #### CDP, CP #### [address] [place] [place] [address] Roadside Mechanic: Nacho Reaves MDGFR/1.73 sq M.predicted among non-blacks MDRD (S/P/Bld) [Vol rate/Area]9 mL/min/{1.73_m2}Low>60MerConnecticut Valley HospitalComment on above:Result Comment: These results are [...] secretion.Performed By: #### ACHRGA #### [facility] [address] [place] [address] Roadside Mechanic: Han Carr MD #### CDP, CP #### [address] [place] [address] Roadside Mechanic: Nacho Reaves MDGlucose [Mass/Vol]292 mg/nRVqpw35-39PcmkfMercy Health Urbana HospitalComment on above:Performed By: #### ACHRGA #### [facility] [address] [place] [address] Roadside Mechanic: Han Carr MD #### CDP, CP #### [address] [place] [address] Roadside Mechanic: LEYDA Mckeonotassium [Moles/Vol]4.0 mmol/LNormal3.7-5.3MMercy Health Urbana HospitalComment on above:Performed By: #### ACHRGA #### [facility] [address] [place] [address] Roadside Mechanic: Han Carr MD #### CDP, CP #### [address] [place] [address] Roadside Mechanic: LEYDA Mckeonrotein [Mass/Vol]7.5 g/dLNormal6.6-8.7[facility] HospitalComment on above:Performed By: #### ACHRGA #### [facility] [address] [place] [address] Roadside Mechanic: Han Carr MD #### CDP, CP #### [address] [place] [address] Roadside Mechanic: SUNG Mckeonodium [Moles/Vol]136 mmol/BQulghw431-990CrsdoAvita Health System Galion HospitalComment on above:Performed By: #### ACHRGA #### [facility] [address] [place] [address] Roadside Mechanic: Han Carr MD #### CDP, CP #### [address] [place] [address] Roadside Mechanic: Nacho Reaves MDUrea nitrogen [Mass/Vol]49 mg/dLHigh6-20[facility] HospitalComment on above:Performed By: #### ACHRGA #### [facility] [address] [place] [address] Roadside Mechanic: Han Carr MD #### CDP, CP #### [address] [place] [address] Roadside Mechanic: SHAMAR Mckeonomprehensive Metabolic Panelon 58-98-0046Cxqfbgo [Mass/Vol]3.7 g/dL3.5 - 5.2 g/dLBon [facility]ena [facility] Medical CenterAlbumin/Globulin [Mass ratio]1 {ratio}1.0 - 2.5Bon [facility] Medical CenterALP [Catalytic activity/Vol]141 U/LHigh40 - 129 U/LBon [facility] Medical CenterALT [Catalytic activity/Vol]9 U/LLow 10 - 50 U/LBon [facility] Medical CenterAnion gap [Moles/Vol]17 mmol/LHigh9 - 16 mmol/LBon [facility] CenterAST [Catalytic activity/Vol]15 U/L10 - 50 U/LBon [facility] Medical CenterBilirubin [Mass/Vol]0.3 mg/dL0.00 - 1.20 mg/dLBon [facility] Medical CenterCalcium [Mass/Vol]9.3 mg/dL8.6 - 10.4 mg/dLBon [facility] Chloride [Moles/Vol]98 mmol/L98 - 107 mmol/LBon [facility] Medical CenterCO2 [Moles/Vol]21 mmol/L20 - 31 mmol/LBon [facility] CenterCreatinine [Mass/Vol] 6.9 mg/dLCritically high0.70 - 1.20 mg/dLBon [facility] Medical CenterEst, Glom Filt Uldb7Qmh- PINFBon Adena Regional Medical CenterComment on above: These results are not intended [...] that affects renal tubular secretion. Glucose [Mass/Vol]292 mg/qFCycm15 - 99 mg/dLBon [facility] Interpretation and review of laboratory resultsAbnormalRiverside Shore Memorial Hospital Potassium [Moles/Vol]4 mmol/L3.7 - 5.3 mmol/LBon [facility] Medical CenterProtein [Mass/Vol]7.5 g/dL6.6 - 8.7 g/dLBon [facility] Medical CenterSodium [Moles/Vol]136 mmol/L136 - 145 mmol/LBon [facility] Medical CenterUrea nitrogen [Mass/Vol]49 mg/dL High6 - 20 mg/dLBon [facility] Medical CenterUrea nitrogen/Creatinine [Mass ratio]7 mg/mgLow9 - 20Bon [facility] Medical CenterBon [facility] Regional Medical CenterHemoglobin A1Con 05-35-2784Umhwoem [Mass/Vol]203 mg/dLNoKettering HealthComment on above:Result Comment: The ADA and AACC recommend providing the estimated average glucose result to permit better patient understanding of their HBA1c result.Performed By: #### GLYHGB #### [facility] [address] [place], [place] [id number] Roadside Mechanic: Joey Tuttle MD #### BMP #### [facility] [address] [place], [place] [id number] Roadside Mechanic: Nacho Reaves MDHbA1c (Bld) [Mass fraction]8.7 %High4.0-6.0[facility] HospitalComment on above:Performed By: #### GLYHGB #### [facility] [address] [place], [place] [id number] Roadside Mechanic: Joey Tuttle MD #### BMP #### [facility] [address] [place] [address] Roadside Mechanic: Nacho Reaves MDBasic Metabolic Panelon 36-42-0871Ostob gap [Moles/Vol]16 mmol/L9 - 17 mmol/LBon [facility] HealthCalcium [Mass/Vol]9.6 mg/dL8.6 - 10.4 mg/dLBon [facility] Medical CenterChloride [Moles/Vol]94 mmol/LLow98 - 107 mmol/LBon [facility] Medical CenterCO2 [Moles/Vol]23 mmol/L20 - 31 mmol/LBon [facility] CenterCreatinine [Mass/Vol]6.7 mg/dLCritically high0.7 - 1.2 mg/dL Bon [facility] CenterEst, Glom Filt Eyvp6Jqa- PINFBon [facility] Comment on above: These results are not [...] that affects renal tubular secretion. Glucose [Mass/Vol]311 mg/jDSqrm39 - 99 mg/dLBon [facility] Interpretation and review of laboratory resultsAbnormalBon [facility] Potassium [Moles/Vol]5 mmol/L3.7 - 5.3 mmol/LBon [facility] Medical CenterSodium [Moles/Vol]133 mmol/ZLoo011 - 144 mmol/LBon [facility] Medical CenterUrea nitrogen [Mass/Vol]48 mg/dLHigh6 - 20 mg/dLBon [facility] Indian HospitalBasic Metabolic Profon 96-80-9047Zgaue gap [Moles/Vol]16 mmol/LNormal9-17 [facility] HospitalComment on above:Performed By: #### GLYHGB #### [facility] [address] [place] [address] Roadside Mechanic: Joey Tuttle MD #### BMP #### [facility] [address] [place] [phone] Roadside Mechanic: SHAMAR Mckeonalcium [Mass/Vol]9.6 mg/dLNormal8.6-10.4[facility] HospitalComment on above:Performed By: #### GLYHGB #### [facility] [address] [place] [address] Roadside Mechanic: Joey Tuttle MD #### BMP #### [facility] [address] [place] 7341090 Roadside Mechanic: SHAMAR Mckeonhloride [Moles/Vol]94 mmol/EZdw37-237ZwrvjAshtabula General Hospital on above:Performed By: #### GLYHGB #### [facility] [address] [place] [address] Roadside Mechanic: Joey Tuttle MD #### BMP #### [facility] [address] [place], [place] [phone] Roadside Mechanic: SHAMAR MckeonO2 [Moles/Vol]23 mmol/KFwbksq41-44VtozhAshtabula General Hospital on above:Performed By: #### GLYHGB #### [facility] [address] [place] [address] Roadside Mechanic: Joey Tuttle MD #### BMP #### [facility] [address] [place], [place] 9856090 Roadside Mechanic: SHAMAR Mckeonreatinine [Mass/Vol]6.7 mg/dLCritically high 0.7-1.2MWexner Medical CenterCommymichigan medical center saginaw on above:Performed By: #### GLYHGB #### [facility] [address] [place], [place] 9923008 Roadside Mechanic: Joey Tuttle MD #### BMP #### [facility] [address] [place] [address] Roadside Mechanic: Nacho Reaves MDGFR/1.73 sq M.predicted among non-blacks MDRD (S/P/Bld) [Vol rate/Area]9 mL/min/{1.73_m2}Low>60[facility] on above:Result Comment: These results are [...] renal tubular secretion.Performed By: #### GLYHGB #### [facility] [address] [place] [address] Roadside Mechanic: Joey Tuttle MD #### BMP #### [facility] [address] [place], [place] [phone] Roadside Mechanic: Nacho Reaves MDGlucose [Mass/Vol]311 mg/eFKfqj89-67DpckxParkwood Hospital on above:Performed By: #### GLYHGB #### [facility] [address] [place] [address] [id number] Roadside Mechanic: Joey Tuttle MD #### BMP #### [facility] [address] [place], [place] [phone] Roadside Mechanic: LEYDA Mckeonotassium [Moles/Vol]5.0 mmol/LNormal3.7-5.3Mmercy health st. rita's medical centery Nesh[facility] County General HospitalComment on above:Performed By: #### GLYHGB #### [place] [id number] [place], [place] 6341308 Roadside Mechanic: Joey Tuttle MD #### BMP #### [facility] [address] [place] [phone] Roadside Mechanic: SUNG Mckeonodium [Moles/Vol]133 mmol/DOse208-092BstxmWilson Memorial HospitalComment on above:Performed By: #### GLYHGB #### [address] [address] Roadside Mechanic: Joey Tuttle MD #### BMP #### [facility] [address] [place] [phone] Roadside Mechanic: Nacho Reaves MDUrea nitrogen [Mass/Vol]48 mg/dLHigh6-20Wilson Memorial HospitalComment on above:Performed By: #### GLYHGB #### [address] [address] Roadside Mechanic: Joey Tuttle MD #### BMP #### [facility] [address] [place], [place] [phone] Roadside Mechanic: Nacho Reaves MDBacardinal hill rehabilitation center Metabolic Panelon 49-24-7507Puvpa gap [Moles/Vol]19 mmol/LHigh9 - 16 mmol/LBon Secours Mercy HealthCalcium [Mass/Vol] 8.9 mg/dL8.6 - 10.4 mg/dLBon Secours Mercy HealthChloride [Moles/Vol]94 mmol/L Low98 - 107 mmol/LBon [facility] Medical CenterCO2 [Moles/Vol]19 mmol/LLow20 - 31 mmol/LBon [facility] Medical CenterCreatinine [Mass/Vol]7.0 mg/dLCritically high0.7 - 1.2 mg/dLBon [facility] Medical CenterEst, Glom Filt Cfvc0Ukd- PINFBon [facility]ena [facility] Medical CenterComment on above: These results are not intended [...] that affects renal tubular secretion. Glucose [Mass/Vol]286 mg/gDSpdv29 - 99 mg/dLBon [facility] Interpretation and review of laboratory resultsAbnormalRiverside Shore Memorial Hospital Potassium [Moles/Vol]4.5 mmol/L3.7 - 5.3 mmol/LBon [facility] Medical CenterSodium [Moles/Vol]132 mmol/YFwm348 - 145 mmol/LBon [facility] Medical CenterUrea nitrogen [Mass/Vol]52 mg/dLHigh6 - 20 mg/dLBon [facility] HospitalBasic Metabolic Profon 44-54-5279Qtbfj gap [Moles/Vol]19 mmol/LHigh9-16 [facility] HospitalComment on above:Performed By: #### BMP #### [facility] [address] [place], [place] 0147[address] Roadside Mechanic: SHAMAR Cunninghamalcium [Mass/Vol]8.9 mg/dLNormal8.6-10.4[facility] HospitalComment on above:Performed By: #### BMP #### [facility] [address] [place] [id number] Roadside Mechanic: SHAMAR Cunninghamhloride [Moles/Vol]94 mmol/AIbw13-421ZyucmBethesda North HospitalComment on above:Performed By: #### BMP #### [facility] HospitalManaged [facility] [address] [place] [address] Roadside Mechanic: Joey Tuttle MDCO2 [Moles/Vol]19 mmol/ITfy32-61JruxkBethesda North HospitalComment on above:Performed By: #### BMP #### [facility] [address] [place] [address] Roadside Mechanic: SHAMAR Cunninghamreatinine [Mass/Vol]7.0 mg/dLCritically high 0.7-1.2MEncino Hospital Medical CenterComment on above:Performed By: #### BMP #### [facility] [address] [place] [address] Roadside Mechanic: Joey Tuttle MDGFR/1.73 sq M.predicted among non-blacks MDRD (S/P/Bld) [Vol rate/Area]9 mL/min/{1.73_m2}Low>60[facility] HospitalComment on above:Result Comment: These results are [...] renal tubular secretion.Performed By: #### BMP #### [facility] HospitalManaged by Q [address] [place] [address] Roadside Mechanic: Joey Tuttle MDGlucose [Mass/Vol]286 mg/hLFszj76-28YqxkxEncino Hospital Medical CenterComment on above:Performed By: #### BMP #### [facility] [address] [place] [address] Roadside Mechanic: Joey Tuttle MDPotassium [Moles/Vol]4.5 mmol/LNormal3.7-5.3 [facility] HospitalComment on above:Performed By: #### BMP #### [facility] [address] [place] [address] Roadside Mechanic: SUNG Cunninghamodium [Moles/Vol]132 mmol/KZoa410-848JbgpuBethesda North HospitalComment on above:Performed By: #### BMP #### [facility] [address] [place] [address] Roadside Mechanic: Joey Tuttle MDUrea nitrogen [Mass/Vol]52 mg/dLHigh6-20[facility] HospitalComment on above:Performed By: #### BMP #### [facility] [address] [place] [address] Roadside Mechanic: Joey Tuttle MDEKSmiley 12 LeadOrdered By: Nalini Morris on 51-26-7689Lndzjq Irem31TRYHck [employer] Work Phone: P Qwdg19phucazcNjdWeHaus Work Phone: P-R Gzjtsfvl036 msWeHaus Work Phone: Q-T Edhmpjhd700 msWeHaus Work Phone: QRS Qdrgdcsk22 msBon [employer] Work Phone: QTc Calculation (Bazett)479 msBon [employer] Work Phone: R Skta77ebbmbwiQacWeHaus Work Phone: T [place]-84degreesCuretis SecJ[employer] Work Phone: Ventricular Mdro75NBCUjs Sec[employer] Work Phone: Bon [employer] Work Phone: EKG 12 Leadon 22-32-7809Uzatth sinus rhythm T wave abnormality, consider inferior ischemia Prolonged QT Abnormal ECG When compared with ECG of 10-FEB-2025 10:27, Minimal criteria for Anterior infarct are no longer PresentDZILTH-[facility] Nalini Smith MD - 02/14/2025 Normal sinus rhythm T wave abnormality, consider inferior ischemia Prolonged QT Abnormal ECG When compared with ECG of 10-FEB-2025 10:27, Minimal criteria for Anterior infarct are no longer Present Bon [facility] CenterGlucose,Whole Bloodon 63-91-5392Roupssh [Mass/Vol]322 mg/cRJntq58-889JbaieBethesda North HospitalGlucose [Mass/Vol]272 mg/dLHigh 75-110Bet[facility] North HospitalGlucose [Mass/Vol]366 mg/fKJdhh72-943MemszBethesda North HospitalGlucose [Mass/Vol]258 mg/aVWkbv43-327IznudBethesda North HospitalGlucose [Mass/Vol]241 mg/lDTrie91-196TukbeBethesda North HospitalHemoglobin and Hematocriton 06-28-7196Jkznmvrpzx (Bld) [Volume fraction]33.5 %Low40.7 - 50.3 %[facility] Memorial HospitalHemoglobin (Bld) [Mass/Vol]9.9 g/dLLow13.0 - 17.0 g/dLBon [facility] Medical CenterInterpretation and review of laboratory resultsAbnormalDickenson Community HospitalHgb/Hcton 69-38-2210Cgzeoevnlo (Bld) [Volume fraction]33.5 %Low40.7-50.3 [facility] HospitalComment on above:Performed By: #### HH ####[facility] [address] [place] [id number] Lab Director: Joey Tuttle MDHemoglobin (Bld) [Mass/Vol]9.9 g/dLLow13.0-17.0[facility] HospitalComment on above:Performed By: #### HH ####[facility] [address] [place] 3588408 Lab Director: KENTON Cunningham Glucose Fingerstickon 02-11-8780Iownwdn [Mass/Vol]272 mg/sCFcld22 - 110 mg/dLBon [facility] Medical CenterInterpretation and review of laboratory resultsAbnormBon Secours Mary Immaculate Hospitalgayathri HealthGlucose [Mass/Vol]366 mg/aLNdst06 - 110 mg/dLBon SecOur Lady of Angels Hospital HealthInterpretation and review of laboratory results AbnormalBon Secfidel Mcginnis [facility] HospitalAlexus Garcia [facility] Hospitalgayathri HealthGlucose [Mass/Vol]258 mg/mAMnzg73 - 110 mg/dLBon SecWillapa Harbor Hospitalgayathri HealthInterpretation and review of laboratory resultsAbnormalBon Jose Mcginnis [facility] HospitalAlexus Garcia [facility] Hospitalgayathri Health Glucose [Mass/Vol]241 mg/qJObyy64 - 110 mg/dLBon [facility] Interpretation and review of laboratory resultsAbnormalBon Jose [facility] Hospitalgayathri [facility] Alexus Garcia [facility] Hospitalgayathri HealthTYPE AND SCREENon 17-26-1355KRJ/RhNegativeBon Jose [facility] Hospitalgayathri HealthArm Band NumberBE [id number] Jose [facility] Hospitalgayathri HealthBlood Bank Blood Product Expiration [id number] [facility] Mercy HealthBlood Bank ISBT Product Blood Vach1177Gfz Jose [facility] Hospitalgayathri HealthBlood Bank Sample Expiration 02/16/2025,2359Bon Jose [facility] Hospitalgayathri HealthBlood Bank Unit Type and RhNegativeBon Jose Mcginnis HealthBlood product unit ID (Dose) [#][id number] Joes [facility] Hospitalgayathri HealthComponentLeukocyte Reduced Red CellBon [facility] Centerfidel [facility] Crossmatch ResultCOMPATIBLEDignity Health Arizona Specialty Hospital Jose [facility] Hospitalgayathri [facility] HospitalDispense Status Blood Bank TRANSFUSEDBon Jose [facility] Hospitalgayathri [facility] HospitalProduct Code Blood [id number] Secours [facility] Hospitalgayathri HealthTransfusion StatusOK TO TRANSFUSEDignity Health [facility] Specialty Hospital Jose [facility] Hospitalgayathri [facility] HospitalUnit Pqmgkqs5Zzb Jose [facility] Hospitalgayathri HealthUnit Issue Date/[id number] Jose [facility] Hospitalgayathri [facility] HospitalAlexus Garcia [facility] Hospitalgayathri HealthAPTTon 35-76-1145cRMK Coag (Bld) [Time]60.9 sHighBon [facility] Medical CenterComment on above: IV Heparin Therapy Range: 66.0-92.0 sec Interpretation and review of laboratory resultsAbnormalAlexus Garcia [facility] Hospitalgayathri [facility] Alexus Garcia [facility] Hospitalgayathri HealthaPTT Coag (Bld) [Time]60.9 sHigh23.0-36.5[facility] North HospitalComment on above:Result Comment: IV Heparin Therapy Range: 66.0-92.0 secPerformed By: #### PTT ####[facility] [place], [place] 6172308 Lab Director: Wilfredo CunninghamT Coag (Bld) [Time] 114.6 sCritically highBon [facility] Medical CenterCommymichigan medical center saginaw on above: IV Heparin Therapy Range: 66.0-92.0 sec RESULT ACCEPTED PER ALEJANDRO Patel Interpretation and review of laboratory resultsAbnormalBon [facility] HealthaPTT Coag (Bld) [Time]114.6 sCritically high23.0-36.5 [facility] HospitalComment on above:Result Comment: IV Heparin Therapy Range: 66.0-92.0 sec RESULT ACCEPTED PER ALEJANDRO PatelPerformed By: #### BMP #### [facility] [id number] Roadside Mechanic: Pamela Cunningham Coag (Bld) [Time]29.3 sBon [facility] Medical CenterCommymichigan medical center [place] on above: IV Heparin Therapy Range: 66.0-92.0 sec Bon SecWill[facility] Harbor Hospitaly HealthaPTT Coag (Bld) [Time]29.3 rTfomrm48.0-36.5[facility] North HospitalComment on above:Result Comment: IV Heparin Therapy Range: 66.0-92.0 secPerformed By: #### PTT ####[facility] [place] [id number] Lab Director: Joey Tuttle MDBLOOD BANK SPECIMENon 23-54-5413Dyb [facility] Medical CenterBasic Metabolic Panelon 99-94-0590Dffxf gap [Moles/Vol]16 mmol/L9 - 16 mmol/LBon SecWillapa Harbor Hospitaly HealthCalcium [Mass/Vol]8.8 mg/dL8.6 - 10.4 mg/dLBon Secours Mercy HealthChloride [Moles/Vol]94 mmol/LLow98 - 107 mmol/LBon SecOur [facility] Angels [facility] HealthCO2 [Moles/Vol]20 mmol/L20 - 31 mmol/LBon [facility]ours Mercy HealthCreatinine [Mass/Vol]7.1 mg/dLCritically high0.7 - 1.2 mg/dL [facility] HospitalElemental TechnologiesZuni Hospital on above:Previous Alert Value ReportedMalka Rojas Iphq1Hee- PINFBon [facility] on above: These results are not intended [...] that affects renal tubular secretion. Glucose [Mass/Vol]272 mg/lEFlla01 - 99 mg/dLBon [facility] Interpretation and review of laboratory resultsAbnormalBon [facility] Potassium [Moles/Vol]4.8 mmol/L3.7 - 5.3 mmol/LBon [facility] GoNoggingRiverside Doctors' Hospital WilliamsburgSodium [Moles/Vol]130 mmol/GKwr704 - 145 mmol/LBon [facility] CenterUrea nitrogen [Mass/Vol]54 mg/dLHigh6 - 20 mg/dLBon [facility] CenterAnion gap [Moles/Vol] 18 mmol/LHigh9 - 16 mmol/LBon [facility] HealthCalcium [Mass/Vol]8.9 mg/dL8.6 - 10.4 mg/dLBon [facility] HealthChloride [Moles/Vol]96 mmol/LLow98 - 107 mmol/LBon [facility] CenterCO2 [Moles/Vol]18 mmol/LLow20 - 31 mmol/LBon [facility] CenterCreatinine [Mass/Vol]7.0 mg/dLCritically high0.7 - 1.2 mg/dL [facility] HospitalElemental TechnologiesZuni Hospital on above:Previous Alert Value ReportedMalka Rojas Vgrb3Eiu- PINFBon [facility] on above: These results are not intended [...] that affects renal tubular secretion. Glucose [Mass/Vol]319 mg/kBLahy80 - 99 mg/dLBon [facility] Interpretation and review of laboratory resultsAbnormValley Health Potassium [Moles/Vol]4.8 mmol/L3.7 - 5.3 mmol/LBon [facility] CenterSodium [Moles/Vol]132 mmol/CIzb455 - 145 mmol/LBon [facility] CenterUrea nitrogen [Mass/Vol]52 mg/dLHigh6 - 20 mg/dLBon [facility] HospitalBasic Metabolic Profon 06-05-3514Sxitg gap [Moles/Vol]16 mmol/LNormal9-16 [facility] HospitalComment on above:Performed By: #### PTT #### [facility] [address] [place] [address] Roadside Mechanic: SHAMAR Cunninghamalcium [Mass/Vol]8.8 mg/dLNormal8.6-10.4[facility] HospitalComment on above:Performed By: #### PTT #### [facility] [address] [place] [address] Roadside Mechanic: SHAMAR Cunninghamhloride [Moles/Vol]94 mmol/ILrt07-040DpyjzBethesda North HospitalComment on above:Performed By: #### PTT #### [facility] [address] [place] [address] Roadside Mechanic: SHAMAR CunninghamO2 [Moles/Vol]20 mmol/LRczawg27-01XgltvBethesda North HospitalComment on above:Performed By: #### PTT #### [facility] [address] [place] [address] Roadside Mechanic: SHAMAR Cunninghamreatinine [Mass/Vol]7.1 mg/dLCritically high 0.7-1.2MEncino Hospital Medical CenterComment on above:Result Comment: Previous Alert Value ReportedPerformed By: #### PTT #### [facility] [address] [place] [address] Roadside Mechanic: Joey Tuttle MDGFR/1.73 sq M.predicted among non-blacks MDRD (S/P/Bld) [Vol rate/Area]8 mL/min/{1.73_m2}Low>60[facility] HospitalComment on above:Result Comment: These results are [...] renal tubular secretion.Performed By: #### PTT #### [facility] HospitalManaged by Q [address] [place] [address] Roadside Mechanic: Joey Tuttle MDGlucose [Mass/Vol]272 mg/wPRptp75-75PmuygEncino Hospital Medical CenterComment on above:Performed By: #### PTT #### [facility] HospitalManaged [facility] Q [address] [place] [address] Roadside Mechanic: LEYDA Cunninghamotassium [Moles/Vol]4.8 mmol/LNormal3.7-5.3 [facility] HospitalComment on above:Performed By: #### PTT #### [facility] HospitalManaged [facility] Q [address] [place] [address] Roadside Mechanic: Joey Tuttle MDSodium [Moles/Vol]130 mmol/ZJlt145-996PtydpBethesda North HospitalComment on above:Performed By: #### PTT #### [facility] HospitalManaged [facility] Q [address] [place] [address] Roadside Mechanic: Joey Tuttle MDUrea nitrogen [Mass/Vol]54 mg/dLWebster County Memorial Hospital6-20[facility] North HospitalComment on above:Performed By: #### PTT #### [facility] HospitalManaged [facility] Q [address] [place] [address] Roadside Mechanic: Joey Tuttle MDAnion gap [Moles/Vol]18 mmol/LHigh9-16[facility] HospitalComment on above:Performed By: #### BMP #### [facility] [address] [place] [address] Roadside Mechanic: SHAMAR Cunninghamalcium [Mass/Vol]8.9 mg/dLNormal8.6-10.4[facility] HospitalComment on above:Performed By: #### BMP #### [facility] [address] [place] [address] Roadside Mechanic: SHAMAR Cunninghamhloride [Moles/Vol]96 mmol/UIdf80-730GcdffBethesda North HospitalComment on above:Performed By: #### BMP #### [facility] [address] [place] [address] Roadside Mechanic: Joey Tuttle MDCO2 [Moles/Vol]18 mmol/ETni25-51CbcvnBethesda North HospitalComment on above:Performed By: #### BMP #### [facility] Hospitaly [facility] [address] [place] [address] Roadside Mechanic: SHAMAR Cunninghamreatinine [Mass/Vol]7.0 mg/dLCritically high 0.7-1.2MEncino Hospital Medical CenterComment on above:Result Comment: Previous Alert Value ReportedPerformed By: #### BMP #### [address] [address] Roadside Mechanic: Joey Tuttle MDGFR/1.73 sq M.predicted among non-blacks MDRD (S/P/Bld) [Vol rate/Area]9 mL/min/{1.73_m2}Low>60MerNorthBay VacaValley HospitalComment on above:Result Comment: These results are [...] renal tubular secretion.Performed By: #### BMP #### [address] [address] Roadside Mechanic: Joey Tuttle MDGlucose [Mass/Vol]319 mg/rSMmku83-83YiybdEncino Hospital Medical CenterComment on above:Performed By: #### BMP #### [address] [address] Roadside Mechanic: LEYDA Cunninghamotassium [Moles/Vol]4.8 mmol/LNormal3.7-5.3 [facility] HospitalComment on above:Performed By: #### BMP #### [address] [address] Roadside Mechanic: SUNG Cunninghamodium [Moles/Vol]132 mmol/MBtu519-363AlxycBethesda North HospitalComment on above:Performed By: #### BMP #### [address] [address] Roadside Mechanic: Joey Tuttle MDUrea nitrogen [Mass/Vol]52 mg/dLHigh6-20[facility] HospitalComment on above:Performed By: #### BMP #### [address] [address] Roadside Mechanic: SHAMAR Cunninghamdouglas 70-11-0990Lvdktcdcjmc distribution width (RBC) [Ratio]19.9 %High11.8 - 14.4 %Bon [facility] HealthHematocrit (Bld) [Volume fraction]29.6 %Low40.7 - 50.3 %Bon [facility] HealthHemoglobin (Bld) [Mass/Vol]8.7 g/dLLow13.0 - 17.0 g/dLBon [facility] HealthInterpretation and review of laboratory resultsAbnormalBon Secours Mercy HealthMCH (RBC) [Entitic mass]28.2 pg25.2 - 33.5 pgSentara CarePlex HospitalHC (RBC) [Mass/Vol]29.4 g/dL 28.4 - 34.8 g/dLBon [facility] North HospitalV (RBC) [Entitic vol]96.1 fL82.6 - 102.9 fLRiverside Shore Memorial HospitalNucleated RBC/100 WBC (Bld) [Ratio]0 %0.0 per 100 WBCBon [facility] Medical CenterPlatelet mean volume (Bld) [Entitic vol]10 fL8.1 - 13.5 fLRiverside Shore Memorial HospitalPlatelets (Bld) [#/Vol]222 10*3/uLBon [facility] Medical CenterRBC (Bld) [#/Vol]3.08 10*6/uLLow4.21 - 5.77 m/uLRiverside Shore Memorial HospitalWBC other (Bld) [#/Vol]9Bon [facility] Erythrocyte distribution width (RBC) [Ratio]19.9 %High11.8-14.4[facility] Systemcy Mercy Medical CenterComment on above:Performed By: #### PTT #### [facility] [employer] [address] [place] [address] Roadside Mechanic: Joey Tuttle MDHematocrit (Bld) [Volume fraction]29.6 %Low 40.7-50.3Mercy Mercy Medical CenterComment on above:Performed By: #### PTT #### [facility] [address] [place] [address] Roadside Mechanic: Joey Tuttle MDHemoglobin (Bld) [Mass/Vol]8.7 g/dLLow13.0-17.0 [facility] HospitalComment on above:Performed By: #### PTT #### [address] [id number] Roadside Mechanic: ALIYAH CunninghamCH (RBC) [Entitic mass]28.2 wiJletug03.2-33.5 [facility] HospitalComment on above:Performed By: #### PTT #### [address] [address] Roadside Mechanic: ALIYAH CunninghamCHC (RBC) [Mass/Vol]29.4 g/iSKxexdb92.4-34.8 [facility] HospitalComment on above:Performed By: #### PTT #### [address] [address] Roadside Mechanic: ALIYAH CunninghamCV (RBC) [Entitic vol]96.1 rYHkppct79.6-102.9 [facility] HospitalComment on above:Performed By: #### PTT #### [address] [address] Roadside Mechanic: LINO Cunningham Automated0.0 per 100 WBCNormal0.0[facility] North HospitalComment on above:Performed By: #### PTT #### [address] [address] Roadside Mechanic: Baldev Cunningham mean volume (Bld) [Entitic vol]10.0 fL Normal8.1-13.5[facility] North HospitalComment on above:Performed By: #### PTT #### [place] [address] Roadside Mechanic: Austen Cunninghamteboaz (Bld) [#/Vol]222 10*3/tBSslmzu350-370 [facility] HospitalComment on above:Performed By: #### PTT #### [address] [address] Roadside Mechanic: JACKIE CunninghamBC (Bld) [#/Vol]3.08 10*6/uLLow4.21-5.77[facility] HospitalComment on above:Performed By: #### PTT #### [facility] [address] [place], [place] 5857208 Roadside Mechanic: Joey Tuttle MDWBC (Bld) [#/Vol]9.0 10*3/uLNormal3.5-11.3Mercy Mercy Medical CenterComment on above:Performed By: #### PTT #### [facility] HospitalManaged [facility] [address] [place], [place] [phone] Roadside Mechanic: Joey Tuttle MDErythrocyte distribution width (RBC) [Ratio]20.1 %High11.8 - 14.4 %Bon [facility] CenterHematocrit (Bld) [Volume fraction]32 %Low40.7 - 50.3 %[facility] HospitalHemoglobin (Bld) [Mass/Vol]9.6 g/dLLow 13.0 - 17.0 g/dLBon [facility] CenterInterpretation and review of laboratory resultsAbnormalSentara CarePlex HospitalH (RBC) [Entitic mass]28.7 pg25.2 - 33.5 pgBon [facility] HospitalHC (RBC) [Mass/Vol]30 g/dL28.4 - 34.8 g/dLBon [facility] HospitalV (RBC) [Entitic vol]95.5 fL82.6 - 102.9 fLRiverside Shore Memorial HospitalNucleated RBC/100 WBC (Bld) [Ratio]0 %0.0 per 100 WBCBon [facility] Medical CenterPlatelet mean volume (Bld) [Entitic vol]9.8 fL8.1 - 13.5 fLBon [facility] Medical CenterPlatelets (Bld) [#/Vol]214 10*3/uLBon [facility] RBC (Bld) [#/Vol]3.35 10*6/uLLow4.21 - 5.77 m/uLRiverside Shore Memorial HospitalWBC other (Bld) [#/Vol]7.5Bon [facility] Erythrocyte distribution width (RBC) [Ratio]20.1 %High11.8-14.4[facility] HospitalComment on above:Performed By: #### BMP #### [address] [address] Roadside Mechanic: Joey Tuttle MDHematocrit (Bld) [Volume fraction]32.0 %Low 40.7-50.3Mmercy health st. rita's medical centery Mercy Medical CenterComment on above:Performed By: #### BMP #### [address] [address] Roadside Mechanic: Joey Tuttle MDHemoglobin (Bld) [Mass/Vol]9.6 g/dLLow13.0-17.0 [facility] HospitalComment on above:Performed By: #### BMP #### [address] [address] Roadside Mechanic: ALIYAH CunninghamCH (RBC) [Entitic mass]28.7 inTiuztd57.2-33.5 [facility] HospitalComment on above:Performed By: #### BMP #### [address] [address] Roadside Mechanic: ALIYAH CunninghamCHC (RBC) [Mass/Vol]30.0 g/lXYzzrbt78.4-34.8 [facility] HospitalComment on above:Performed By: #### BMP #### [address] [address] Roadside Mechanic: ALIYAH CunninghamCV (RBC) [Entitic vol]95.5 aDXhceva44.6-102.9 [facility] HospitalComment on above:Performed By: #### BMP #### [address] [address] Roadside Mechanic: Joey Tuttle MDNRBC Automated0.0 per 100 WBCNormal0.0[facility] HospitalComment on above:Performed By: #### BMP #### [address] [address] Roadside Mechanic: Austen Cunninghamtepayton mean volume (Bld) [Entitic vol]9.8 fL Normal8.1-13.5[facility] HospitalComment on above:Performed By: #### BMP #### [facility] [employer] [address] [place] [address] Roadside Mechanic: Austen Cunninghamtelets (Bld) [#/Vol]214 10*3/nTIxhmlk319-536 [facility] HospitalComment on above:Performed By: #### BMP #### [address] [address] Roadside Mechanic: Joey Tuttle MDRBC (Bld) [#/Vol]3.35 10*6/uLLow4.21-5.77[facility] HospitalComment on above:Performed By: #### BMP #### [facility] [employer] [address] [place] [address] Roadside Mechanic: SILVINO CunninghamBC (Bld) [#/Vol]7.5 10*3/uLNormal3.5-11.3MEncino Hospital Medical CenterComment on above:Performed By: #### BMP #### [address] [address] Roadside Mechanic: Ivone Cunningham, Ionicon 81-96-4228Gfdmtud [Moles/Vol] 1.08 mmol/LLow1.13-1.33[facility] HospitalComment on above: Performed By: #### PTT #### [facility] [employer] [address] [place] [address] Roadside Mechanic: Ivone Cunningham, Ionizedon 60-54-3990Qdoaiwf.ionized (Bld) [Moles/Vol]1.08 mmol/LLow1.13 - 1.33 mmol/LBon [facility] Interpretation and review of laboratory resultsAbnormalLifepoint HospitalsCardiac procedureon 79-75-2645Yhpu surface area Derived from formula2.58 m2Bon [facility] CenterUltrasound-guided right common femoral arterial 6 Djiboutian access. [...] stent deployment. Supplies Used: CATH BLLN ANGIO [id number] EUPHORIA RX Angioplasty: Supplies Used: CATH BLLN [...] EUPHORA RX Angioplasty (Als (more content not included)...[facility] CV CPACS HEMOBSentara RMH Medical CenterJZ Clothing and Cosplay DesignRadiology Study observation (narrative)[facility] Memorial HospitalJZ Clothing and Cosplay DesignCell Count with Differential, Body Fluidon 02-13-2025 Appearance (Body fld)ClearBon SecCentral Security Group HealthClot CheckNone SeenBon [facility] Medical CenterCentral Security Group HealthColor (Body fld)ColorlessBon [facility] CenterCentral Security Group [facility] HospitalEosinophils/100 WBC (Body fld)4 %Tzbi1Mzr LocoMobiComment on above:No normal range established for fluids.Fluid Nom (Body fld).PERITONEAL DIALYSIS FLUIDMartinsville Memorial HospitalCentral Security Group HealthInterpretation and review of laboratory resultsAbnormalBon [facility] CenterCentral Security Group [facility] HospitalLymphocytes/100 WBC (Body fld)21 %[facility] SportID [facility] HospitalComment on above:No normal range established for fluids.Mesothelial Cells Body Fluid0 %[facility] HealthComment on above:No normal range established for fluids. Monocytes/100 WBC (Body fld)66 %[facility] HealthComment on above:No normal range established for fluids.Neutrophils/100 WBC (Body fld)9 %[facility] HealthComment on above:No normal range established for fluids.Nucleated cells (Body fld) [#/Vol]61cells/uLBon LocoMobiComment on above:No normal range established for fluids.RBC (Body fld) [#/Vol]cells/uLBon [facility] Rut[facility] Hospitaly HealthComment on above:No normal range established for fluids.Alexus Mcginnis HealthEKG 12 Leadon 74-03-0355Xzkjdv Ylsj13SNGZnm Secours Mercy HealthP Yvdw22xkejujsSnm [facility] HealthP-R Pxmaasqo126 msBon [facility] Q-T Qwfqdhhn846 msBon [facility]ours [facility] HealthQRS Icjoixtr73 msBon [facility] HealthQTc Calculation (Bazett)458 msBon [facility]ours Mercy HealthR Bsyt23odeeaxdImz Secours [facility] HealthT Coxz269fcyyjmoLgy [facility] HealthVentricular Rate79 BPMBon [facility]ours [facility]cy HealthNormal sinus rhythm Nonspecific T wave abnormality Abnormal ECG When compared with ECG of 10-FEB-2025 06:36, No significant change was foundMHCristel Wick MD - 02/13/2025 Normal sinus rhythm Nonspecific T wave abnormality Abnormal ECG When compared with ECG of 10-FEB-2025 06:36, No significant change was found Bon Jose Mcginnis HealthDignity [facility] Specialty Hospital SecWillapa Harbor Hospitalgayathri HealthFluid Cell Count and Diffon 23-58-6089Emmm Fluid Mesothelials0 %NormalBethesda North Hospital Comment on above:Result Comment: No normal range established for fluids. Performed By: #### FLDCT ####[facility] [address] [place] [address] Lab Director: Kassy Cunningham (U)[facility] HospitalComment on above:Performed By: #### FLDCT ####[facility] [address] [place] [address] Lab Director: Joey Tuttle MDBody Fluid Ttl Zwvrfkjzu07 cells/[facility] Methodist HospitalComment on above:Result Comment: No normal range established for fluids. Performed By: #### FLDCT ####[facility] [address] [place] [address] Lab Director: SHAMAR Cunninghamlot CheckNone SeenPremier HealthComment on above:Performed By: #### FLDCT ####[facility] [address] [place] [address] Lab Director: SHAMAR Cunninghamolor (U)ColorlessPremier HealthComment on above:Performed By: #### FLDCT ####[facility] [address] [place] [address] Lab Director: Joey Tuttle MDEosinophils/100 WBC (Bld)4 % Jxvo2VrhrsBethesda North HospitalComment on above:Result Comment: No normal range established for fluids.Performed By: #### FLDCT ####[facility] [address] [address] Lab Director: Joey Tuttle MD Lymphocytes/100 WBC (Bld)21 %Premier HealthComment on above:Result Comment: No normal range established for fluids.Performed By: #### FLDCT ####[facility] [address] [place] [address] Lab Director: ALIYAH Cunninghamono/Ohxmjmofvu46 %Premier HealthComment on above:Result Comment: No normal range established for fluids. Performed By: #### FLDCT ####[facility] [address] [place] [address] Lab Director: Joey Tuttle MDNeutrophils/100 WBC (Bld)9 % Premier HealthComment on above:Result Comment: No normal range established for fluids.Performed By: #### FLDCT ####[facility] [address] [place] [address] Lab Director: Joey Tuttle MDRBC (Bld) [#/Vol]10*6/uLNormalBethesda North HospitalComment on above:Result Comment: No normal range established for fluids.Performed By: #### FLDCT ####[facility] [address] [place], [place] [id number] Lab Director: Joey Tuttle MDGlucose,Whole Bloodon 56-82-8170Dgcqqso [Mass/Vol] 382 mg/wRPjrl26-742Fxtrc [facility] Medical CenterGlucose [Mass/Vol]344 mg/dL Mzzn68-583YeexjBethesda North HospitalGlucose [Mass/Vol]211 mg/eHQeaq06-550 [facility] HospitalGlucose [Mass/Vol]259 mg/pNMlgs69-360YhqhtNorthBay VacaValley HospitalGlucose [Mass/Vol]286 mg/gGJpfo02-255XtqxyNorthBay VacaValley HospitalGlucose [Mass/Vol]296 mg/wWMwhr30-383WudusBethesda North HospitalMagnesiumon 80-72-3453Dckycrgby [Mass/Vol]2.1 mg/dL1.6 - 2.6 mg/dLBon [facility] Medical CenterMagnesium [Mass/Vol]2.1 mg/dLNormal1.6-2.6Mercy Mercy Medical CenterComment on above:Performed By: #### PTT #### [facility] [address] [id number] Roadside Mechanic: Joey Tuttle MDNo Panel Informationon 40-21-8723[facility] Glucose Fingerstickon 74-45-7141Dcwdlxa [Mass/Vol]382 mg/dLHigh 75 - 110 mg/dLBon [facility] Medical CenterInterpretation and review of laboratory resultsAbnormalDickenson Community HospitalGlucose [Mass/Vol]344 mg/jYVkqo08 - 110 mg/dLBon [facility] CenterInterpretation and review of laboratory resultsAbnormalDickenson Community HospitalGlucose [Mass/Vol]211 mg/vVUytw47 - 110 mg/dLBon [facility] Interpretation and review of laboratory resultsAbnormalLifepoint HospitalsGlucose [Mass/Vol]259 mg/aJGvzg22 - 110 mg/dLBon [facility] CenterInterpretation and review of laboratory resultsAbnormalDickenson Community HospitalGlucose [Mass/Vol]286 mg/sCTnvn90 - 110 mg/dLBon [facility] CenterInterpretation and review of laboratory results AbnormalBon [facility] HospitalGlucose [Mass/Vol]296 mg/hLPxii96 - 110 mg/dLBon [facility] CenterInterpretation and review of laboratory resultsAbnormalDickenson Community HospitalType + Screenon 31-53-1580Aaks + ScreenSample Expiration 02/16/2025,2359 Arm Band Number [id number] ABO/Rh(D) AB NEGATIVE Antibody Screen NEGATIVE Unit Number [id number] Blood Component Type Leukocyte Reduced Red Cell Unit Division 00 Status of Unit TRANSFUSED Transfusion Status OK TO TRANSFUSE Crossmatch Result COMPATIBLEPremier HealthComment on above:Performed By: #### TYS ####[facility] [place] [id number] Lab Director: Justin Cunningham 32-02-5454tJUG Coag (Bld) [Time]88.6 sHighBon [facility] Medical CenterComment on above: IV Heparin Therapy Range: 66.0-92.0 sec Interpretation and review of laboratory resultsAbnoMadison Community HospitalaPTT Coag (Bld) [Time]88.6 sHigh23.0-36.5[facility] HospitalComment on above:Result Comment: IV Heparin Therapy Range: 66.0-92.0 secPerformed By: #### GLYHGB, FEBC, JUDD, BMP, CBC #### [facility] [address] [place] [address] Roadside Mechanic: Berenice Cunningham Metabolic Panelon 55-28-2657Ceyxi gap [Moles/Vol]18 mmol/LHigh9 - 16 mmol/LBon [facility] Medical CenterCalcium [Mass/Vol] 9.1 mg/dL8.6 - 10.4 mg/dLBon [facility] Medical CenterChloride [Moles/Vol]98 mmol/L98 - 107 mmol/LBon [facility] Medical CenterCO2 [Moles/Vol]19 mmol/LLow20 - 31 mmol/L [facility] HospitalCreatinine [Mass/Vol]7.0 mg/dLCritically high0.7 - 1.2 mg/dLBon [facility] Medical CenterCommymichigan medical center sagin[place] on above:Previous Alert Value ReportedMalka Rojas Xbrk3Mfy- PINFBon Adena Regional Medical CenterComment on above: These results are not intended [...] that affects renal tubular secretion. Glucose [Mass/Vol]268 mg/cAYmcm40 - 99 mg/dLBon [facility] Interpretation and review of laboratory resultsAbnormalBon [facility] Potassium [Moles/Vol]4.5 mmol/L3.7 - 5.3 mmol/LBon [facility] Medical CenterSodium [Moles/Vol]135 mmol/GBfu821 - 145 mmol/LBon [facility] Medical CenterUrea nitrogen [Mass/Vol]53 mg/dLHigh6 - 20 mg/dLBon [facility] HospitalBasic Metabolic Profon 06-34-9561Xlzaa gap [Moles/Vol]18 mmol/LHigh9-16 [facility] HospitalComment on above:Performed By: #### GLYHGB, FEBC, JUDD, BMP, CBC #### [facility] [address] [place], [place] [id number] Roadside Mechanic: SHAMAR Cunninghamalcium [Mass/Vol]9.1 mg/dLNormal8.6-10.4[facility] HospitalComment on above:Performed By: #### GLYHGB, FEBC, JUDD, BMP, CBC #### [facility] [address] [place] [address] Roadside Mechanic: SHAMAR Cunninghamhloride [Moles/Vol]98 mmol/XJzfppc03-167ZaepzBethesda North HospitalComment on above:Performed By: #### GLYHGB, FEBC, JUDD, BMP, CBC #### [facility] [address] [place] [address] Roadside Mechanic: Joey Tuttle MDCO2 [Moles/Vol]19 mmol/BTfa26-13MfiygBethesda North HospitalComment on above:Performed By: #### GLYHGB, FEBC, JUDD, BMP, CBC #### [facility] [address] [place] [address] Roadside Mechanic: SHAMAR Cunninghamreatinine [Mass/Vol]7.0 mg/dLCritically high 0.7-1.2MEncino Hospital Medical CenterComment on above:Result Comment: Previous Alert Value ReportedPerformed By: #### GLYHGB, FEBC, JUDD, BMP, CBC #### [facility] [address] [place] [address] Roadside Mechanic: Joey Tuttle MDGFR/1.73 sq M.predicted among non-blacks MDRD (S/P/Bld) [Vol rate/Area]9 mL/min/{1.73_m2}Low>60[facility] HospitalComment on above:Result Comment: These results are [...] #### GLYHGB, FEBC, JUDD, BMP, CBC #### [facility] [address] [place] [address] Roadside Mechanic: Joey Tuttle MDGlucose [Mass/Vol]268 mg/fHEfss10-41PyoakEncino Hospital Medical CenterComment on above:Performed By: #### GLYHGB, FEBC, JUDD, BMP, CBC #### [facility] [address] [place] [address] Roadside Mechanic: LEYDA Cunninghamotassium [Moles/Vol]4.5 mmol/LNormal3.7-5.3 [facility] North HospitalComment on above:Performed By: #### GLYHGB, FEBC, JUDD, BMP, CBC #### [facility] [address] [place] [address] Roadside Mechanic: Joey Tuttle MDSodium [Moles/Vol]135 mmol/TPsj135-910JseslBethesda North HospitalComment on above:Performed By: #### GLYHGB, FEBC, JUDD, BMP, CBC #### [facility] [employer] [address] [place] [address] Roadside Mechanic: Joey Tuttle MDUrea nitrogen [Mass/Vol]53 mg/dLHigh6-20[facility] North HospitalComment on above:Performed By: #### GLYHGB, FEBC, JUDD, BMP, CBC #### [facility] [employer] [address] [place] [address] Roadside Mechanic: SHAMAR Cunninghamardiac echo study Procedureon 70-14-0299Db Root Index1.02 cm/m2[facility] HealthAortic Root2.5 cmBon Secours Mercy HealthAV Area by Peak Velocity1.7 cm2[facility] HealthAV Area by VTI1.7 cm2[facility] HealthAV Mean Pphqlswf58yrBqFbc [facility] HealthAV Mean Velocity1.5 m/sBon [facility]ours [facility] HealthAV Peak Twfricpy13cwPrCpn [facility] HealthAV Peak Velocity2.2 m/sBon [facility]ours Mercy HealthAV Velocity Ratio0.55[facility] HealthAV VTI39.2 cmBon [facility]ours [facility] HealthAVA/BSA Peak Velocity 0.7 cm2/m2[facility] HealthAVA/BSA VTI0.7 cm2/m2[facility] Body surface area Derived from formula2.58 m2[facility] HealthE/E' Udqklno53.53[facility] HealthE/E' Ratio (Averaged)19.83[facility] HealthE/E' Jllxxm94.14[facility] HealthEF BP36 %Qxhewtko14 - 100 %[facility] HealthEF Jtrvbxsoq37 %[facility] HealthFractional Shortening 2D11 %28 [...] cm/m2[facility] HealthLA Volume BP 88 mILwysnnsf51 - 58 mLBon Secours Mercy HealthLA Volume Index BP36 ml/m2 Oarjcwjc47 - 34 ml/m2[facility] HealthLA Volume Index MOD A2C33 ml/m216 - 34 ml/m2[facility] HealthLA Volume Index MOD A4C33 ml/m216 - 34 ml/m2[facility] HealthLA Volume MOD A2C81 uIHkeeusus68 - 58 mLBon Secours Mercy HealthLA Volume MOD A4C81 xIHdkamkso07 - 58 mLBon Secours Mercy HealthLA/AO Root Ratio1.76[facility] HealthLV E' Lateral Velocity6.09 cm/sBon Secours Mercy HealthLV E' Septal Velocity6.53 cm/sBon Secours Mercy HealthLV EDV D4C968 mLBon Secours Mercy HealthLV EDV J7V041 mLBon Secours Mercy HealthLV EDV Index A2C67 mL/m2[facility] HealthLV EDV Index A4C63 mL/m2[facility] HealthLV Ejection Fraction A2C38 %[facility] HealthLV Ejection Fraction A4C36 %[facility] HealthLV ESV V0I858 mLBon Secours Mercy HealthLV ESV O9U949 mLBon Secours Mercy HealthLV ESV Index A2C42 [...] HealthLVOT Diameter2 cmBon Secours Mercy HealthLVOT Mean Kvviiuxz8wdYwVfp [facility] HealthLVOT Peak Sextoltk9akZxBpr [facility] HealthLVOT Peak Velocity1.2 m/sBon Secours [...] Max Velocity1.5 m/sBon Secours Mercy HealthMV Mean Mzuishfi8exBiOcp [facility] HealthMV Mean Velocity1 m/s [facility] HealthMV Peak Frxjinuf4acXuWgo [facility] HealthMV VTI29.7 cmBon Secours Mercy HealthMV:LVOT VTI Index1.38[facility] HealthPV Max Velocity0.9 m/sBon [facility] HealthPV Peak Zpygcazq5jiWvWxp [facility] HealthRV Basal Dimension4.5 cmBon [facility] HealthRV Free Wall Peak S'13.4 cm/sBon [facility] CenterC3 [employer] Marketing HealthTAPSE2.6 cm1.7 cmBon [facility] CenterC3 Online Marketing HealthLeft Ventricle: Moderately reduced left ventricular systolic [...] The left ventricular wall motion is globally hypokinetic.[facility] CV CPACSBon [facility] CenterRadiology Study observation (narrative)[facility] HospitalCardiac procedureon 60-37-9540Mqux surface area Derived from formula2.61 m2[facility] LocoMobiUltrasound-guided right common femoral arterial 6 Djiboutian access. 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 [...] of left main LAD and left circumflex bifurcation.[facility] CV CPACS HEMOB LocoMobiRadiology Study observation (narrative)[facility] LocoMobiEK 12 LeadOrdered By: Cristel Ibarra on 47-97-0671Vneepk Zmpa62VOJMul [employer] Phone: P Ibfn43mxonrssFkl [employer] Phone: P-R Rkoqwkef360 [employer] Phone: Q-T Adigyqxb691 [employer] Phone: QRS Exhgtvxc12 [employer] Phone: QTc Calculation (Elizabeth)473 [employer] Phone: R Opaz60eajomniKvv [facility] Work Phone: T [place]-112degreesBon SecElement[facility] Technologiesy [facility] Work Phone: Ventricular Hwyq47KHHTmv Secours GoNoggingy Health Work Phone: Bon SecElement[facility] Technologiesy [facility] Work Phone: EKG 12 Leadon 48-30-6810Kcwdso sinus rhythm Cannot rule out Inferior infarct [...] in Anterior leads [facility] HealthAtrial Gfvo02BQFKgv Secours Mercy HealthP Mepu07yihhgpq [facility] HealthP-R Qtzqulcv456 msBon Secours Mercy HealthQ-T Interval 392 msBon Secours Mercy HealthQRS Yhervkqj57 msBon Secours Mercy HealthQTc Calculation (Bazett)452 msBon Secours Mercy HealthR Jgoe76fexhyxnWwt [facility]cy HealthT [place]-114degreesBon [facility]ours Mercy HealthVentricular Njxc34YPCDck [facility]ours [facility]cy HealthNormal sinus rhythm Low voltage [...] 10-FEB-2025 10:26, No significant change was found [facility] HospitalFluid Cell Count and Diffon 13-46-9006Feif of Specimen.PERITONEAL DIALYSIS FLUIDNoHighland District HospitalComment on above:Performed By: #### FLDCT ####[facility] [address] [place] [address] Lab Director: Joey Tuttle MDGlucose,Whole Bloodon 17-30-1514Gwgvjvn [Mass/Vol]403 mg/dLCritically hhxy64-344UfvzyBethesda North HospitalComment on above:Result Comment: Critical NotedGlucose [Mass/Vol]216 mg/oJUxws78-040ZyiikBethesda North HospitalGlucose [Mass/Vol]216 mg/zQVqzq23-660[address]cy[address] Glucose [Mass/Vol]269 mg/hVRzht21-938Xuvls21 Smith StreetGram Stain on 01-21-5569Rszakefskcwrd or agent identified Nom (Unsp spec)FEW NEUTROPHILSBon [facility] CenterMicroorganism or agent identified Nom (Unsp spec)NO BACTERIA SEENRiverside Shore Memorial HospitalMicroorganism or agent identified Nom (Unsp spec)Gram stain made from cytocentrifuged specimen. Organisms and cells will be concentrated.[facility] HealthSpecimen Description.PERITONEAL DIALYSIS FLUIDBon [facility] Indian HospitalMicroscopic observation Gram stain Nom (Unsp spec)Specimen Description .PERITONEAL DIALYSIS FLUID Direct Exam FEW NEUTROPHILS NO BACTERIA SEEN Gram stain made from cytocentrifuged specimen. Organisms and cells will be concentrated. Report Status FINAL 02/12/2025Premier HealthComment on above:Performed By: #### GS #### [facility] [address] [place] [address] Roadside Mechanic: LEYDA CunninghamHYMIN ID DOCUMENTon [id number] TestGS AND FLUID CELL COUNTRiverside Shore Memorial HospitalPHYSICIANKHALED ABUHANTTASHRiverside Shore Memorial HospitalPhysician ID CommentSpecimen received in laboratory failed to meet specimen identification criteria. The laboratory is authorized to use this specimen for testing and reporting of results by [facility] CenterSpecimen source Nom ([facility] Hospitalp spec).PERITONEAL DIALYSIS FLUIDBon [facility]. [facility] Indian HospitalPHYSICIAN ID Wan [id number] NAME TANIA AGUILARPremier HealthComment on above: Performed By: #### GLYHGB, FEBC, JUDD, BMP, CBC #### [employer] [address] [place] [address] Roadside Mechanic: Romina Cunningham of sample.PERITONEAL DIALYSIS FLUIDPremier Health Miami Valley Hospital NorthComment on above:Performed By: #### GLYHGB, FEBC, JUDD, BMP, CBC #### [facility] [address] [place] [address] Roadside Mechanic: Joey Tuttle MDTest orderedGS AND FLUID CELL COUNTPremier HealthComment on above:Performed By: #### GLYHGB, FEBC, JUDD, BMP, CBC #### [facility] [address] [place] [address] Roadside Mechanic: SHAMAR Cunninghamomment:Specimen received in laboratory failed to meet specimen identification criteria.[facility] Comment on above:Result Comment: The laboratory is authorized to use this specimen for testing and reporting of results by Performed By: #### GLYHGB, FEBC, JUDD, BMP, CBC #### [facility] [address] [place] [address] Roadside Mechanic: KENTON Cunningham Glucose Fingerstickon 42-39-8908Lgmslou [Mass/Vol]403 mg/dLCritically high75 - 110 mg/dLBon [facility] CenterComment on above:Critical NotedInterpretation and review of laboratory resultsAbnormal [facility] HospitalGlucose [Mass/Vol]216 mg/dLHigh 75 - 110 mg/dLBon [facility] CenterInterpretation and review of laboratory resultsAbnoSaint Francis Medical Center [facility] HospitalGlucose [Mass/Vol]216 mg/yMOhar68 - 110 mg/dLBon [facility] CenterInterpretation and review of laboratory resultsAbnormalBon [facility] HospitalGlucose [Mass/Vol]269 mg/dUBidr23 - 110 mg/dLBon [facility] Interpretation and review of laboratory resultsAbnormInova Alexandria HospitalAPTEncompass Health Rehabilitation Hospital [facility] 80-31-6778lJRW Coag (Bld) [Time]78.6 [facility] HospitalComment on above: IV Heparin Therapy Range: 66.0-92.0 sec Interpretation and review of laboratory resultsAbnormInova Alexandria HospitalaPTT Coag (Bld) [Time]78.6 sHigh23.0-36.5[facility] HospitalComment on above:Result Comment: IV Heparin Therapy Range: 66.0-92.0 secPerformed By: #### BMP #### [employer] [address] [place], [place] [phone] Roadside Mechanic: Joey Tuttle MDaPTDeniz Coag (Bld) [Time]87.4 [facility] HospitalCommymichigan medical center saginaw on above: IV Heparin Therapy Range: 66.0-92.0 sec Interpretation and review of laboratory resultsAbnoMadison Community HospitalaPTT Coag (Bld) [Time]87.4 sHigh23.0-36.5[facility] HospitalComment on above:Result Comment: IV Heparin Therapy Range: 66.0-92.0 secPerformed By: #### PTT #### [facility] [address] [place] [address] Roadside Mechanic: Berenice Cunningham Metabolic Panelon 86-58-5741Ocjin gap [Moles/Vol]20 mmol/LHigh9 - 16 mmol/LBon [facility] CenterCalcium [Mass/Vol] 8.9 mg/dL8.6 - 10.4 mg/dLBon Secours Mercy HealthChloride [Moles/Vol]96 mmol/L Low98 - 107 mmol/LBon SecWillapa Harbor Hospitaly HealthCO2 [Moles/Vol]15 mmol/LLow20 - 31 mmol/LBon SecOur Lady of Angels Hospital HealthCreatinine [Mass/Vol]6.8 mg/dLCritically high0.7 - 1.2 mg/dLBon [facility] HealthComment on above:Previous Alert Value Reported EstMalka Mhfj4Fon- PINFBon [facility] CenterComment on above: These results are not intended [...] that affects renal tubular secretion. Glucose [Mass/Vol]326 mg/yJWaav29 - 99 mg/dLBon [facility] Centerours [facility] HealthPotassium [Moles/Vol]4.5 mmol/L3.7 - 5.3 mmol/LBon [facility] CenterComment on above: Specimen hemolysis has exceeded the interference as defined by Tristan. Value may be falsely increased. Suggest recollection if clinically indicated. Sodium [Moles/Vol]131 mmol/DLag355 - 145 mmol/LBon [facility] HealthUrea nitrogen [Mass/Vol]53 mg/dLHigh6 - 20 mg/dLBon [facility] CenterBasic Metabolic Profon 03-48-5071Ijvvyoo [Mass/Vol]8.9 mg/dLNormal8.6-10.4[facility] HospitalComment on above:Performed By: #### PTT #### [facility] [place] [address] Roadside Mechanic: Joye Tuttle MDGFR/1.73 sq M.predicted among non-blacks MDRD (S/P/Bld) [Vol rate/Area]9 mL/min/{1.73_m2}Low>60[facility] HospitalComment on above:Result Comment: These results are [...] renal tubular secretion.Performed By: #### PTT #### [employer] [address] [place] [address] Roadside Mechanic: Joey Tuttle MDAnion gap [Moles/Vol]20 mmol/LHigh9-16[facility] HospitalComment on above:Performed By: #### PTT #### [employer] [address] [place] [address] Roadside Mechanic: SHAMAR Cunninghamhloride [Moles/Vol]96 mmol/PIjb34-706AwxilBethesda North HospitalComment on above:Performed By: #### PTT #### [facility] [address] [place] [address] Roadside Mechanic: Joey Tuttle MDCO2 [Moles/Vol]15 mmol/KSmm32-80ZynrrBethesda North HospitalComment on above:Performed By: #### PTT #### [facility] HospitalManaged [facility] [address] [place] [address] Roadside Mechanic: SHAMAR Cunninghamreatinine [Mass/Vol]6.8 mg/dLCritically high 0.7-1.2MEncino Hospital Medical CenterComment on above:Result Comment: Previous Alert Value ReportedPerformed By: #### PTT #### [facility] [address] [place] [address] Roadside Mechanic: Joey Tuttle MDGlucose [Mass/Vol]326 mg/wUYxzg20-78MwkgxPico Rivera Medical CenterComment on above:Performed By: #### PTT #### [facility] HospitalManaged [facility] [address] [place] [address] Roadside Mechanic: Joey Tuttle MDPotassium [Moles/Vol]4.5 mmol/LNormal3.7-5.3 [facility] HospitalComment on above:Result Comment: Specimen hemolysis has exceeded the interference as defined by Tristan. Value may be falsely increased. Suggest recollection if clinically indicated.Performed By: #### PTT #### [facility] [address] [place], [place] [phone] Roadside Mechanic: SUNG Cunninghamodium [Moles/Vol]131 mmol/ODqc146-326HhsgyBethesda North HospitalComment on above:Performed By: #### PTT #### [facility] [address] [place] [address] Roadside Mechanic: Joey Tuttle MDUrea nitrogen [Mass/Vol]53 mg/dLHigh6-20[facility] HospitalComment on above:Performed By: #### PTT #### [facility] [address] [place], [place] [id number] Roadside Mechanic: SHAMAR Cunninghamdouglas 88-12-0891Ptbuogncoxf distribution width (RBC) [Ratio]19.9 %High11.8 - 14.4 %[facility] Memorial HospitalHematocrit (Bld) [Volume fraction]31 %Low40.7 - 50.3 %[facility] HospitalHemoglobin (Bld) [Mass/Vol]9.5 g/dLLow13.0 - 17.0 g/dLBon [facility] CenterInterpretation and review of laboratory resultsAbnormalBon [facility] North HospitalH (RBC) [Entitic mass]28.3 pg25.2 - 33.5 pgBon [facility] HospitalHC (RBC) [Mass/Vol]30.6 g/dL 28.4 - 34.8 g/dLBon [facility] HospitalV (RBC) [Entitic vol]92.3 fL82.6 - 102.9 fLRiverside Shore Memorial HospitalNucleated RBC/100 WBC (Bld) [Ratio]0 %0.0 per 100 WBCRiverside Shore Memorial HospitalPlatelet mean volume (Bld) [Entitic vol]9.9 fL8.1 - 13.5 fLBon Secours Mercy HealthPlatelets (Bld) [#/Vol]213 10*3/uLBon [facility] Medical CenterRBC (Bld) [#/Vol]3.36 10*6/uLLow4.21 - 5.77 m/uLRiverside Shore Memorial HospitalWBC other (Bld) [#/Vol]8Bon [facility] Erythrocyte distribution width (RBC) [Ratio]19.9 %High11.8-14.4[facility] Systemcy [facility] CenterComment on above:Performed By: #### GLYHGB, FEBC, JUDD, BMP, CBC #### [facility] [address] [place] [address] [phone] Roadside Mechanic: Joey Tuttle MDHematocrit (Bld) [Volume fraction]31.0 %Low 40.7-50.3Mercy Mercy Medical CenterComment on above:Performed By: #### GLYHGB, FEBC, JUDD, BMP, CBC #### [facility] [address] [place] [address] Roadside Mechanic: Joey Tuttle MDHemoglobin (Bld) [Mass/Vol]9.5 g/dLLow13.0-17.0 [facility] HospitalComment on above:Performed By: #### GLYHGB, FEBC, JUDD, BMP, CBC #### [facility] [address] [place] [address] [phone] Roadside Mechanic: CLEMENTE Cunningham (RBC) [Entitic mass]28.3 kqKvksnq83.2-33.5 [facility] HospitalComment on above:Performed By: #### GLYHGB, FEBC, JUDD, BMP, CBC #### [facility] [address] [place] [address] [phone] Roadside Mechanic: CLEMENTE CunninghamC (RBC) [Mass/Vol]30.6 g/dBAjcfjl40.4-34.8 [facility] HospitalComment on above:Performed By: #### GLYHGB, FEBC, JUDD, BMP, CBC #### [facility] [address] [place] [address] Roadside Mechanic: JAMEY Cunningham (RBC) [Entitic vol]92.3 eFCdzqtz07.6-102.9 [facility] HospitalComment on above:Performed By: #### GLYHGB, FEBC, JUDD, BMP, CBC #### [facility] [address] [place] [address] Roadside Mechanic: LINO Cunningham Automated0.0 per 100 WBCNormal0.0[facility] HospitalComment on above:Performed By: #### GLYHGB, FEBC, JUDD, BMP, CBC #### [facility] [address] [place] [address] Roadside Mechanic: Baldev Cunningham mean volume (Bld) [Entitic vol]9.9 fL Normal8.1-13.5[facility] HospitalComment on above:Performed By: #### GLYHGB, FEBC, JUDD, BMP, CBC #### [facility] [address] [place] [address] Roadside Mechanic: Seble Cunningham (Bld) [#/Vol]213 10*3/xWYvnfpl597-313 [facility] HospitalComment on above:Performed By: #### GLYHGB, FEBC, JUDD, BMP, CBC #### [facility] [address] [place] [address] Roadside Mechanic: JACKIE CunninghamBC (Bld) [#/Vol]3.36 10*6/uLLow4.21-5.77[facility] HospitalComment on above:Performed By: #### GLYHGB, FEBC, JUDD, BMP, CBC #### [facility] [address] [place] [address] Roadside Mechanic: Joey Madoff, MDWBC (Bld) [#/Vol]8.0 10*3/uLNormal3.5-11.3[facility]cy Medical CenterComment on above:Performed By: #### BELKIS FEBC, JUDD, BMP, CBC #### [facility] [address] [place] [address] [phone] Roadside Mechanic: Joey Tuttle MDGlucose,Whole Bloodon 78-12-3585Kodcggv [Mass/Vol]303 mg/kGJrgv96-706AwgesBethesda North HospitalGlucose [Mass/Vol] 310 mg/jEQecf85-825JmhkcBethesda North HospitalGlucose [Mass/Vol]318 mg/dL Olnt73-128LwxbmBethesda North HospitalGlucose [Mass/Vol]305 mg/qSQvmq76-871 [facility] HospitalGlucose [Mass/Vol]267 mg/bOQgct84-801EypoxBethesda North HospitalHemoglobin A1Con 25-36-4416Tretimh [Mass/Vol]214 mg/dL Premier HealthComment on above:Result Comment: The ADA and AACC recommend providing the estimated average glucose result to permit better patient understanding of their HBA1c result.Performed By: #### STEPHANIE TAMAYO, JUDD, BMP, CBC #### [facility] [address] [place] [address] [phone] Roadside Mechanic: Joey Tuttle MDHbA1c (Bld) [Mass fraction]9.1 %High4.0-6.0[facility] HospitalComment on above:Performed By: #### BELKIS FEBC, JUDD, BMP, CBC #### [facility] [address] [place] [address] [phone] Roadside Mechanic: Joey Tuttle MDHemoglobin A1con 42-24-2417Mfeuyqy glucose Estimated from glycated hemoglobin (Bld) [Mass/Vol]214 mg/dLBon [facility] CenterComment on above:The ADA and AACC recommend providing the estimated average glucose result to permit better patient understanding of their HBA1c result. HbA1c (Bld) [Mass fraction]9.1 %High4.0 - 6.0 %Bon [facility] Interpretation and review of laboratory resultsAbnormalBon [facility] HospitalIron Binding Cap.on 02-11-2025% Fe Jlzjrridzg45 %Normal 20-55[facility] HospitalComment on above:Performed By: #### GLYHGB, FEBC, JUDD, BMP, CBC #### [facility] [address] [place] [address] Roadside Mechanic: Richard Cunninghamtal Fe Binding Nka519 ug/nMZpu374-586MosxrBethesda North HospitalComment on above:Performed By: #### GLYHGB, FEBC, JUDD, BMP, CBC #### [facility]Managed [facility] [address] [place] [address] Roadside Mechanic: Sruthi Cunningham [Mass/Vol]47 ug/oZUla89-009NzkvlBethesda North HospitalComment on above:Performed By: #### GLYHGB, FEBC, JUDD, BMP, CBC #### [facility] HospitalManaged [facility] [address] [place] [address] [phone] Roadside Mechanic: Joey Tuttle MDUnbound Fe Bind Mcw821 ug/uZWrdcmm598-155FczgdBethesda North HospitalComment on above:Performed By: #### GLYHGB, FEBC, JUDD, BMP, CBC #### [facility] HospitalManaged [facility] [address] [place] [address] Roadside Mechanic: Sruthi Cunningham and TIBCon 16-91-3893Wligyerjimtchd and review of laboratory resultsAbnormalBon Secours Martin Memorial HospitalIron [Mass/Vol]47 ug/dLLow61 - 157 ug/dLBon SecCorey HospitalIron binding capacity [Mass/Vol] 210 ug/tESpo795 - 450 ug/dLBon SecCorey HospitalIron saturation [Mass fraction]22 %20 - 55 %Bon [facility] CenterUIBC163 ug/dL112 - 347 ug/dLBon SecAscension Columbia Saint Mary's HospitalNo Panel Informationon 02-11-2025 Interpretation and review of laboratory resultsAbnormInova Alexandria HospitalPO Glucose Fingerstickon 23-44-2253Mmcedmo [Mass/Vol] 303 mg/fOPdze76 - 110 mg/dLBon [facility] CenterInterpretation and review of laboratory resultsAbnormRiverside [facility] Hospital Glucose [Mass/Vol]310 mg/oBIyof10 - 110 mg/dLBon [facility] Interpretation and review of laboratory resultsAbnormInova Alexandria HospitalGlucose [Mass/Vol]318 mg/yMTrra62 - 110 mg/dLBon [facility] CenterInterpretation and review of laboratory resultsAbnormRiverside Tappahannock HospitalGlucose [Mass/Vol]305 mg/oSAgbo74 - 110 mg/dLBon [facility] CenterInterpretation and review of laboratory results AbnormalBon [facility] HospitalGlucose [Mass/Vol]267 mg/vXOase57 - 110 mg/dLBon [facility] CenterInterpretation and review of laboratory resultsAbnormRiverside Tappahannock Hospital Phosphoruson 97-18-4799Xjzhcsvse [Mass/Vol]5.8 mg/dLHigh2.5 - 4.5 mg/dLBon [facility] CenterPhosphorus, Inorg.on 52-97-6583Ukffibveba, Inorg.5.8 mg/dL High2.5-4.5[facility] Health Systemcy [facility] CenterComment on above:Performed By: #### GLYHGB, FEBC, JUDD, BMP, CBC #### [facility] [address] [place] [address] Roadside Mechanic: Justin Cunningham 97-71-6527lCMY Coag (Bld) [Time]62.3 s [facility] CarePlex HospitalComment on above: IV Heparin Therapy Range: 66.0-92.0 sec Interpretation and review of laboratory resultsAbnoMadison Community HospitalaPTT Coag (Bld) [Time]62.3 sHigh23.0-36.5[facility] HospitalComment on above:Result Comment: IV Heparin Therapy Range: 66.0-92.0 secPerformed By: #### PTT ####[facility] HospitalC3 [place] [address] Lab Director: Joey Tuttle MDaPTT Coag (Bld) [Time]40.2 sHighBon [facility] CenterCommymichigan medical center [place] on above: IV Heparin Therapy Range: 66.0-92.0 sec Interpretation and review of laboratory resultsAbnormalBon [facility] Bon [facility] CenteraPTT Coag (Bld) [Time]40.2 sHigh23.0-36.5[facility] HospitalComment on above:Result Comment: IV Heparin Therapy Range: 66.0-92.0 secPerformed By: #### GLYHGB, FEBC, JUDD, BMP, CBC #### [facility] HospitalManaged [facility] [address] [place] [address] Roadside Mechanic: Joey Tuttle MDaPTT Coag (Bld) [Time]35.6 sBon [facility] CenterCommymichigan medical center [place] on above: IV Heparin Therapy Range: 66.0-92.0 sec Bon [facility] CenteraPTT Coag (Bld) [Time]35.6 aCvpjdw59.0-36.5[facility] HospitalComment on above:Result Comment: IV Heparin Therapy Range: 66.0-92.0 secPerformed By: #### GS #### [facility] HospitalManaged [facility] [address] [place] [address] Roadside Mechanic: Joey Tuttle MDBasic Metab w/rfx MGon 76-96-6897Kapzx gap [Moles/Vol]17 mmol/LHigh9-16[facility] HospitalComment on above: Performed By: #### GS #### [facility] [address] [place] [address] Roadside Mechanic: SHAMAR Cunninghamalcium [Mass/Vol]9.0 mg/dLNormal8.6-10.4[facility] HospitalComment on above:Performed By: #### GS #### [facility] [address] [place] [address] Roadside Mechanic: SHAMAR Cunninghamhloride [Moles/Vol]98 mmol/IPywyjw41-894FbwkuBethesda North HospitalComment on above:Performed By: #### GS #### [facility] [address] [place] [address] Roadside Mechanic: Joey Tuttle MDCO2 [Moles/Vol]19 mmol/SYtd47-63BsqsgBethesda North HospitalComment on above:Performed By: #### GS #### [facility] [employer] [address] [place] [address] Roadside Mechanic: SHAMAR Cunninghamreatinine [Mass/Vol]6.3 mg/dLCritically high 0.7-1.2MEncino Hospital Medical CenterComment on above:Result Comment: Previous Alert Value ReportedPerformed By: #### GS #### [place] [address] Roadside Mechanic: Joey Tuttle MDGFR/1.73 sq M.predicted among non-blacks MDRD (S/P/Bld) [Vol rate/Area]10 mL/min/{1.73_m2}Low>60Bethesda North HospitalComment on above:Result Comment: These results are [...] tubular secretion.Performed By: #### GS #### [facility] [address] [address] Roadside Mechanic: Joey Tuttle MDGlucose [Mass/Vol]258 mg/oTDaty43-40Jvoge Mercy Medical CenterComment on above:Performed By: #### GS #### [facility] [address] [place] [address] Roadside Mechanic: LEYDA Cunninghamotassium [Moles/Vol]4.3 mmol/LNormal3.7-5.3 [facility] North HospitalComment on above:Performed By: #### GS #### [facility] [address] [place] [address] Roadside Mechanic: Joey Tuttle MDSodium [Moles/Vol]134 mmol/ISkr384-879SjxlkBethesda North HospitalComment on above:Performed By: #### GS #### [facility] [place] [address] Roadside Mechanic: Joey Tuttle MDUrea nitrogen [Mass/Vol]56 mg/dLHigh6-20Bet[facility] North HospitalComment on above:Performed By: #### GS #### [facility] [address] [place] [address] Roadside Mechanic: Joey Tuttle MDBacardinal hill rehabilitation center Metabolic Panel w/ Reflex to MGon [id number] gap [Moles/Vol]17 mmol/LHigh9 - 16 mmol/LBon [facility] GoNogging HealthCalcium [Mass/Vol]9 mg/dL8.6 - 10.4 mg/dLBon Secours Cerebrex HealthChloride [Moles/Vol]98 mmol/L98 - 107 mmol/LBon [facility] GoNogging HealthCO2 [Moles/Vol]19 mmol/LLow20 - 31 mmol/LBon [facility] GoNogging HealthCreatinine [Mass/Vol]6.3 mg/dL Critically high0.7 - 1.2 mg/dLBon Secours GoNoggingy HealthComment on above:Previous Alert Value ReportedMalka Rojas Filt Zdds44Yag- PINFBon [facility] Comment on above: These results are not [...] that affects renal tubular secretion. Glucose [Mass/Vol]258 mg/wSPewt26 - 99 mg/dLBon [facility] Medical CenterPotassium [Moles/Vol]4.3 mmol/L3.7 - 5.3 mmol/LBon [facility] Medical CenterSodium [Moles/Vol] 134 mmol/AHyb696 - 145 mmol/LBon [facility] Medical CenterUrea nitrogen [Mass/Vol]56 mg/dLHigh6 - 20 mg/dLBon [facility] Medical CenterCBCon 83-43-4261Zwwrfqdrcmb distribution width (RBC) [Ratio]20 %High11.8 - 14.4 %[facility] Hematocrit (Bld) [Volume fraction]31.9 %Low40.7 - 50.3 %[facility] Hemoglobin (Bld) [Mass/Vol]9.8 g/dLLow13.0 - 17.0 g/dLBon [facility] Interpretation and review of laboratory resultsAbnormalRiverside Shore Memorial Hospital MCH (RBC) [Entitic mass]28.3 pg25.2 - 33.5 pgRiverside Shore Memorial HospitalMCHC (RBC) [Mass/Vol]30.7 g/dL28.4 - 34.8 g/dLBon [facility] Medical CenterMCV (RBC) [Entitic vol]92.2 fL82.6 - 102.9 fLRiverside Shore Memorial HospitalNucleated RBC/100 WBC (Bld) [Ratio]0 %0.0 per 100 WBCRiverside Shore Memorial HospitalPlatelet mean volume (Bld) [Entitic vol]9.6 fL8.1 - 13.5 fLRiverside Shore Memorial HospitalPlatelets (Bld) [#/Vol] 212 10*3/uLBon [facility] Medical CenterRBC (Bld) [#/Vol]3.46 10*6/uLLow4.21 - 5.77 m/uLRiverside Shore Memorial HospitalWBC other (Bld) [#/Vol]8.3Bon [facility] Avera HealthErythrocyte distribution width (RBC) [Ratio]20.0 %High 11.8-14.4Bethesda North HospitalComment on above:Performed By: #### GS #### [address] [address] Roadside Mechanic: Joey Tuttle MDHematocrit (Bld) [Volume fraction]31.9 %Low 40.7-50.3MEncino Hospital Medical CenterComment on above:Performed By: #### GS #### [address] [address] Roadside Mechanic: Joey Tuttle MDHemoglobin (Bld) [Mass/Vol]9.8 g/dLLow13.0-17.0 [facility] North HospitalComment on above:Performed By: #### GS #### [address] [address] Roadside Mechanic: ALIYAH CunninghamCH (RBC) [Entitic mass]28.3 yeLmtjwy11.2-33.5 [facility] North HospitalComment on above:Performed By: #### GS #### [address] [address] Roadside Mechanic: ALIYAH CunninghamCHC (RBC) [Mass/Vol]30.7 g/uDKuzuim67.4-34.8 [facility] HospitalComment on above:Performed By: #### GS #### [address] [address] Roadside Mechanic: ALIYAH CunninghamCV (RBC) [Entitic vol]92.2 zCFbybaz94.6-102.9 [facility] North HospitalComment on above:Performed By: #### GS #### [address] [address] Roadside Mechanic: Joey Tuttle MDNRBC Automated0.0 per 100 WBCNormal0.0Bethesda North HospitalComment on above:Performed By: #### GS #### [facility] [address] [place] [address] Roadside Mechanic: Austen Cunninghamtepayton mean volume (Bld) [Entitic vol]9.6 fL Normal8.1-13.5Bethesda North HospitalComment on above:Performed By: #### GS #### [facility] [address] [place] [address] Roadside Mechanic: Austen Cunninghamteboaz (Bld) [#/Vol]212 10*3/jOTwyctp678-542 [facility] North HospitalComment on above:Performed By: #### GS #### [facility] [employer] [address] [place] [address] Roadside Mechanic: JACKIE CunninghamBC (Bld) [#/Vol]3.46 10*6/uLLow4.21-5.77Bet[facility] North HospitalComment on above:Performed By: #### GS #### [address] [address] Roadside Mechanic: Joey Tuttle MDWBC (Bld) [#/Vol]8.3 10*3/uLNormal3.5-11.3MEncino Hospital Medical CenterComment on above:Performed By: #### GS #### [facility] [employer] [address] [place] [address] Roadside Mechanic: Joey Tuttle MDGlucose,Whole Bloodon 95-73-4610Qjeonju [Mass/Vol]231 mg/sLWrxc60-367LdpmkBethesda North HospitalGlucose [Mass/Vol] 193 mg/zLNwaq19-523CvhxzBethesda North HospitalGlucose [Mass/Vol]189 mg/dL Wcnh00-089NalqrBethesda North HospitalGlucose [Mass/Vol]308 mg/wWRyul61-188 [facility] HospitalGlucose [Mass/Vol]232 mg/dZKuhu26-996GzqsgNorthBay VacaValley HospitalLipid Panelon 00-96-9261Vhhbaijlvzt [Mass/Vol]96 mg/dL0 - 199 mg/dLBon [facility] Medical CenterComment on above: Cholesterol Guidelines: <200 Desirable 200-240 Borderline >240 Undesirable Cholesterol in HDL [Mass/Vol]35 mg/dLLow40 - PINF mg/dLBon [facility] Bon[facility]Darg Comment on above: HDL Guidelines: <40 Undesirable 40-59 Borderline >59 Desirable Cholesterol in LDL [Mass/Vol]45 mg/dL0 - 100 mg/dLBon [facility] [employer] BonzerDarg Comment on above: LDL Guidelines: <100 Desirable 100-129 Near to/above Desirable 130-159 Borderline >159 Undesirable Direct (measured) LDL and calculated LDL are not interchangeable tests. Cholesterol in VLDL [Mass/Vol]16 mg/dL1 - 30 mg/dLBon [facility] BonzerDarg Cholesterol.total/Cholesterol in HDL [Mass ratio]2.7 {ratio}Bon [facility] CenterTriglyceride [Mass/Vol]80 mg/dLNINF - 150 mg/dLBon [facility] BonzerDarg Comment on above: Triglyceride Guidelines: <150 Desirable 150-199 Borderline 200-499 High >499 Very high Based on AHA Guidelines for fasting triglyceride, August 2012. Lipid Profileon 87-33-8084Luanpstqvcp [Mass/Vol]96 mg/dLNormal0-199Bethes[facility] North HospitalComment on above:Result Comment: Cholesterol Guidelines: <200 Desirable 200-240 Borderline >240 UndesirablePerformed By: #### GLYHGB, FEBC, JUDD, BMP, CBC #### [facility] [address] [place] [id number] Roadside Mechanic: SHAMAR Cunninghamholesterol in HDL [Mass/Vol]35 mg/dLLow>40Bethesda North HospitalComment on above:Result Comment: HDL Guidelines: <40 Undesirable 40-59 Borderline >59 DesirablePerformed By: #### GLYHGB, FEBC, JUDD, BMP, CBC #### [facility] [address] [place] [address] [id number] Roadside Mechanic: SHAMAR Cunninghamholesterol in LDL [Mass/Vol]45 mg/dLNormal0-100 [facility] HospitalComment on above:Result Comment: LDL Guidelines: <100 Desirable 100-129 Near to/above Desirable 130-159 Borderline >159 Undesirable Direct (measured) LDL and calculated LDL are not interchangeable tests.Performed By: #### GLYHGB, FEBC, JUDD, BMP, CBC #### [facility] [address] [place] [phone] Roadside Mechanic: SHAMAR Cunninghamholesterol in VLDL [Mass/Vol]16 mg/dLNormal1-30 [facility] HospitalComment on above:Performed By: #### GLYHGB, FEBC, JUDD, BMP, CBC #### [facility] [address] [place] [address] Roadside Mechanic: SHAMAR Cunninghamholesteromargaret.total/Cholesterol in HDL [Mass ratio]2.7 {ratio}NormalBethesda North HospitalComment on above: Performed By: #### GLYHGB, FEBC, JUDD, BMP, CBC #### [facility] [address] [place] [address] Roadside Mechanic: Joey Tuttle MDTriglyceride [Mass/Vol]80 mg/dLNormal<150Bethesda North HospitalComment on above:Result Comment: Triglyceride Guidelines: <150 Desirable 150-199 Borderline 200-499 High >499 Very high Based on AHA Guidelines for fasting triglyceride, August 2012.Performed By: #### GLYHGB, FEBC, JUDD, BMP, CBC #### [facility] [address] [place] [address] Roadside Mechanic: Martin Cunninghamgnesiumon 91-79-1901Dnzbdkaaj [Mass/Vol]2.5 mg/dL1.6 - 2.6 mg/dLBon [facility] Medical CenterMagnesium [Mass/Vol]2.5 mg/dLNormal 1.6-2.6Mercy Mercy Medical CenterComment on above:Performed By: #### GLYHGB, FEBC, JUDD, BMP, CBC #### [facility] [address] [place] [address] Roadside Mechanic: Joey Tuttle MDNo Panel Informationon 34-33-0355Entldnrpoleutz and review of laboratory resultsAbnoBrookings Health System Glucose Fingerstickon 78-08-7503Vpycjvk [Mass/Vol]231 mg/dLHigh 75 - 110 mg/dLBon [facility] CenterInterpretation and review of laboratory resultsAbnormalDickenson Community HospitalGlucose [Mass/Vol]193 mg/oOYvgc70 - 110 mg/dLBon [facility] CenterInterpretation and review of laboratory resultsAbnormalDickenson Community HospitalGlucose [Mass/Vol]189 mg/wOHsrp57 - 110 mg/dLBon [facility] Interpretation and review of laboratory resultsAbnormalLifepoint HospitalsGlucose [Mass/Vol]308 mg/hJGcsx35 - 110 mg/dLBon [facility] CenterInterpretation and review of laboratory resultsAbnormalDickenson Community HospitalGlucose [Mass/Vol]232 mg/iIQyys11 - 110 mg/dLBon [facility] CenterInterpretation and review of laboratory results AbnormalBon [facility] Indian HospitalXR CHEST (SINGLE VIEW FRONTAL)on 06-35-4888OB CHEST (SINGLE VIEW FRONTAL)EXAMINATION: ONE XRAY VIEW [...] Signed by: Karin Coronado MD 02/10/25 Final resultNormalMerNorthBay VacaValley HospitalMild cardiomegaly and mild vascular congestion. PN RIS [...] IMPRESSION: Mild cardiomegaly and mild vascular congestion. [facility] HospitalElemental TechnologiesRiverside Doctors' Hospital WilliamsburgRadiology Study observation (narrative)[facility] LocoMobiXR CHEST (SINGLE VIEW FRONTAL)Ordered By: Karin Coronado on [id number] [facility] [place]_ Work Phone: APTTon [id number] Coag (Bld) [Time]50 sHighBon [facility] CenterComment on above: IV Heparin Therapy Range: 66.0-92.0 sec aPTT Coag (Bld) [Time]50.0 sHigh23.0-36.5Bet[facility] North HospitalComment on above:Result Comment: IV Heparin Therapy Range: 66.0-92.0 secPerformed By: #### GS #### [facility] [address] [place], [place] [id number] Roadside Mechanic: Seth Cunninghami-Xa, Unfractionated Heparinon 02-09-2025 Anti-XA Unfrac Heparin>2.00IU/LBon [facility] Medical CenterWishery Martin Memorial HospitalComment on above: This test has not been validated or calibrated for therapies other than unfractionated heparin. Interpretation of the result in relation to other therapies must be done with caution and within clinical context. CBCon 59-50-1482Vlthkfzcojl distribution width (RBC) [Ratio]20.2 %High11.8 - 14.4 %[facility] HospitalHematocrit (Bld) [Volume fraction]33 %Low40.7 - 50.3 %[facility] HospitalHemoglobin (Bld) [Mass/Vol]10.2 g/dLLow13.0 - 17.0 g/dLBon [facility] CenterInterpretation and review of laboratory results AbnormalBon [facility] North HospitalH (RBC) [Entitic mass]28.4 pg25.2 - 33.5 pgSentara CarePlex HospitalHC (RBC) [Mass/Vol]30.9 g/dL28.4 - 34.8 g/dLBon [facility] North HospitalV (RBC) [Entitic vol]91.9 fL82.6 - 102.9 fLRiverside Shore Memorial HospitalNucleated RBC/100 WBC (Bld) [Ratio]0 %0.0 per 100 WBCBon [facility] Medical CenterPlatelet mean volume (Bld) [Entitic vol]9.7 fL8.1 - 13.5 fLWellmont Lonesome Pine Mt. View Hospital HealthPlatelets (Bld) [#/Vol]236 10*3/uLBon [facility] Medical CenterRBC (Bld) [#/Vol]3.59 10*6/uLLow4.21 - 5.77 m/uLRiverside Shore Memorial HospitalWBC other (Bld) [#/Vol]9Bon [facility] Indian HospitalErythrocyte distribution width (RBC) [Ratio]20.2 %High11.8-14.4Mercy Mercy Medical CenterComment on above:Performed By: #### GS #### [facility] [address] [place] [address] Roadside Mechanic: Joey Tuttle MDHematocrit (Bld) [Volume fraction]33.0 %Low 40.7-50.3Mercy Mercy Medical CenterComment on above:Performed By: #### GS #### [employer] [address] [place] [address] Roadside Mechanic: Joey Tuttle MDHemoglobin (Bld) [Mass/Vol]10.2 g/dLLow13.0-17.0 [facility] HospitalComment on above:Performed By: #### GS #### [address] [address] Roadside Mechanic: ALIYAH CunninghamCH (RBC) [Entitic mass]28.4 jdDhvlgt50.2-33.5 [facility] HospitalComment on above:Performed By: #### GS #### [address] [address] Roadside Mechanic: ALIYAH CunninghamCHC (RBC) [Mass/Vol]30.9 g/yFQsqyzp58.4-34.8 [facility] HospitalComment on above:Performed By: #### GS #### [place] [address] Roadside Mechanic: ALIYAH CunninghamCV (RBC) [Entitic vol]91.9 rLClzcih12.6-102.9 [facility] HospitalComment on above:Performed By: #### GS #### [address] [address] Roadside Mechanic: Joey Tuttle MDNRBC Automated0.0 per 100 WBCNormal0.0Bet[facility] North HospitalComment on above:Performed By: #### GS #### [address] [address] Roadside Mechanic: Austen Cunninghamtelet mean volume (Bld) [Entitic vol]9.7 fL Normal8.1-13.5[facility] North HospitalComment on above:Performed By: #### GS #### [address] [address] Roadside Mechanic: LEYDA Cunninghamlatelets (Bld) [#/Vol]236 10*3/wYGgthyp544-495 [facility] HospitalComment on above:Performed By: #### GS #### [facility] [place] [address] Roadside Mechanic: Joey Tuttle MDRBC (Bld) [#/Vol]3.59 10*6/uLLow4.21-5.77Mercy Mercy Medical CenterComment on above:Performed By: #### GS #### [facility] [address] [place] [address] Roadside Mechanic: Joey Tuttle MDWBC (Bld) [#/Vol]9.0 10*3/uLNormal3.5-11.3Mercy Mercy Medical CenterComment on above:Performed By: #### GS #### [address] [address] Roadside Mechanic: SHAMAR Cunninghamreatinineon 46-73-5839Tuubokexvq [Mass/Vol]6.3 mg/dLCritically high0.7 - 1.2 mg/dLBon [facility] CenterEst, Glom Filt Rate10 Low- PINFBon [facility] Medical CenterComment on above: These results are not intended [...] that affects renal tubular secretion. Creatinine w/GFRon 86-13-1610Oecbjvmlik [Mass/Vol]6.3 mg/dLCritically high 0.7-1.2Mercy Mercy Medical CenterComment on above:Performed By: #### ALMA ROSENG ####[address] [address] Lab Director: Joey Tuttle MDGFR/1.73 sq M.predicted among non-blacks MDRD (S/P/Bld) [Vol rate/Area]10 mL/min/{1.73_m2}Low>60[facility] HospitalComment on above:Result Comment: These results are [...] tubular secretion.Performed By: #### TROPI, CREG ####[facility] [address] [place], [place] [address] Lab Director: Joey Tuttle MDGlucose,Whole Bloodon 41-76-5662Cxlozpr [Mass/Vol]285 mg/dL Dlei34-686UeltaBethesda North HospitalGlucose [Mass/Vol]222 mg/uZFcla14-410 [facility] HospitalHeparin Anti-Xaon 28-97-2620Opbktkm Anti-Xa>2.00 NormalBethesda North HospitalComment on above:Result Comment: This test has not been validated or calibrated for therapies other than unfractionated heparin. Interpretation of the result in relation to other therapies must be done with caution and within clinical context.Performed By: #### GS #### [facility] [address] [place], [place] [address] Roadside Mechanic: Joey Tuttle MDNo Panel Informationon 60-78-8071Jwldhxgjqwofqt and review of laboratory resultsAbnormalRiverside Walter Reed HospitalBedford EnergyInterpretation and review of laboratory resultsAbnormalDickenson Community HospitalPOC Glucose Fingerstickon 85-25-3664Kkrelzn [Mass/Vol]285 mg/wINybe93 - 110 mg/dLBon [facility] [place]_Interpretation and review of laboratory resultsAbnormalDickenson Community HospitalGlucose [Mass/Vol]222 mg/sCRciw10 - 110 mg/dLBon [facility] [place]_ Interpretation and review of laboratory resultsAbnoMadison Community HospitalPTon 06-06-3034EAE Coag (PPP) [Relative time]1.3 {INR} NormalBethesda North HospitalCommymichigan medical center sag[place] on above:Result Comment: Therapeutic Range: Moderate Anticoagulant Intensity: INR = 2.0-3.0 High Anticoagulant Intensity: INR = 2.5-3.5Performed By: #### GS #### [facility]Managed [facility] [address] [place], [place] [id number] Roadside Mechanic: LEYDA CunninghamT Coag (PPP) [Time]16.1 sHigh11.7-14.9[facility] HospitalComment on above:Performed By: #### GS #### [facility] HospitalManaged [facility] [place], [place] [id number] Roadside Mechanic: Casey Cunninghamime-INRon 41-13-4791YSZ Coag (PPP) [Relative time]1.3 {INR}[facility] HospitalComment on above: Therapeutic Range: Moderate Anticoagulant Intensity: INR = 2.0-3.0 High Anticoagulant Intensity: INR = 2.5-3.5 PT Coag (PPP) [Time]16.1 sHighBon [facility] Centeroponinon 02-09-2025 Interpretation and review of laboratory resultsAbInova Alexandria Hospital Troponin I.cardiac High sensitivity method [Mass/Vol]2122 ng/LCritically high0 - 22 ng/LBon [facility] CenterCommymichigan medical center [place] on above:High Sensitivity Troponin values cannot be compared with other Troponin methodologies. Previous Alert Value Reported [facility] HospitalTroponin, High Acix6391 ng/LCritically high0-22Bet[facility] North HospitalCommymichigan medical center [place] on above:Result Comment: High Sensitivity Troponin values cannot be compared with other Troponin methodologies. Previous Alert Value ReportedPerformed By: #### TROPI ####[facility] HospitalManaged by QUfkprttqovbf[address] [place], [place] [id number] Lab Director: Francesco Cunningham I.cardiac High sensitivity method [Mass/Vol]1968 ng/LCritically high0 - 22 ng/L [facility] HospitalCommymichigan medical center [place] on above:High Sensitivity Troponin values cannot be compared with other Troponin methodologies.Troponin, High Yrrm1712 ng/L Critically high0-22[facility] North HospitalCommymichigan medical center [place] on above:Result Comment: High Sensitivity Troponin values cannot be compared with other Troponin methodologies.Performed By: #### TROPI, CREG ####[facility] [place], [place] [id number] Lab Director: Zeus Cunningham 75-57-3244Sgnrslbrnsyz A527 ng/mLWebster County Memorial Hospital0-187[facility] on above:Result Comment: (NOTE) INTERPRETIVE INFORMATION: Chromogranin A, Serum This test is performed using the AsthmatrackerS CGA II Kryptor kit. Results obtained with [...] 14 days prior to testing. Performed by [email or web address], [address] [place] [address] [email or web address], Han Carr MD, Lab. Director TYLER Number: [id number] By: #### GLYHGB #### [facility] [address] [place], [place] [id number] Roadside Mechanic: Joey Tuttle MD #### TANKGA #### [facility] [address] [place] [address] Roadside Mechanic: Han Carr MD #### CP, CDP #### [facility] [address] [place], [place] [id number] Roadside Mechanic: Nacho Reaves MDHemoglobin A1Con 17-78-9530Enrsafm [Mass/Vol]237 mg/dLNormMain Campus Medical CenterCommymichigan medical center [place] on above:Result Comment: The ADA and AACC recommend providing the estimated average glucose result to permit better patient understanding of their HBA1c result.Performed By: #### GLYHGB #### [facility] [address] [place] [address] Roadside Mechanic: Joey Tuttle MD #### ACHRGA #### [facility] [address] [place] [address] Roadside Mechanic: Han Carr MD #### CP, CDP #### [facility] [address] [place], [place] 8809[address] Roadside Mechanic: Nacho Reaves MDHbA1c (Bld) [Mass fraction]9.9 %High4.0-6.0Wilson Memorial HospitalCommymichigan medical center [place] on above:Performed By: #### GLYHGB #### [facility] [address] [place] [address] Roadside Mechanic: Joey Tuttle MD #### ACHRGA #### [facility] [address] [place] [address] Roadside Mechanic: Han Carr MD #### CP, CDP #### [facility] [address] [place], [place] [address]0004[address] Roadside Mechanic: SHAMAR MckeonBC with Auto Differentialon 66-90-4229Lkcgeqzsj (Bld) [#/Vol]0.02 10*3/uLBon Secours Martin Memorial HospitalBasophils/100 WBC (Bld)0 %0 - 2 %[facility] HospitalEosinophils (Bld) [#/Vol]0.36 10*3/uLBon Secours Martin Memorial HospitalEosinophils/100 WBC (Bld)5 %0 - 5 %[facility] HospitalErythrocyte distribution width (RBC) [Ratio]17.0 %High12.1 - 15.2 %[facility] Hematocrit (Bld) [Volume fraction]29.6 %Low41.0 - 53.0 %[facility] Hemoglobin (Bld) [Mass/Vol]9.2 g/dLLow13.5 - 17.5 g/dLBon [facility] Immature granulocytes (Bld) [#/Vol]0.02 10*3/uLBon [facility] CenterImmature granulocytes/100 WBC (Bld)0 %0 - 5 %[facility] HospitalInterpretation and review of laboratory resultsAbnormalRiverside Shore Memorial HospitalLymphocytes/100 WBC (Bld)8 %Low13 - 44 %[facility] HospitalLymphocytes/100 WBC (Bld)0.66 %Low [facility] CarePlex HospitalH (RBC) [Entitic mass]25.8 pgLow26.0 - 34.0 pgBon [facility] HospitalHC (RBC) [Mass/Vol]31.1 g/dL31.0 - 37.0 g/dLBon [facility] North HospitalV (RBC) [Entitic vol]82.9 fL80.0 - 100.0 fLRiverside Shore Memorial HospitalMonocytes/100 WBC (Bld)7 %5 - 9 %[facility] HospitalMonocytes/100 WBC (Bld)0.53 %[facility] HospitalNeutrophils/100 WBC (Bld)80 %High39 - 75 %[facility] HospitalPlatelet mean volume (Bld) [Entitic vol]9.0 fL6.0 - 12.0 fL [facility] HospitalPlatelets (Bld) [#/Vol]282 10*3/uLBon [facility] Medical CenterRBC (Bld) [#/Vol]3.57 10*6/uLLow4.50 - 5.90 m/uLRiverside Shore Memorial Hospital Segmented neutrophils/100 WBC (Bld)6.41 %Bon [facility] other (Bld) [#/Vol]8.0Bon [facility] with Diffon 83-93-0779Bfs. Basophil0.02 k/uLNormal0.00-0.20Wilson Memorial HospitalComment on above:Performed By: #### GLYHGB #### [facility] [address] [place] [address] Roadside Mechanic: Joey Tuttle MD #### ACHRGA #### [facility] [address] [place] [address] Roadside Mechanic: Han Carr MD #### CP, CDP #### [facility] [address] [place] [address] Roadside Mechanic: Fifi Mckeon.Imm.Granulocyte0.02 k/uLNormal0.00-0.30[facility] Memorial HospitalComment on above:Performed By: #### GLYHGB #### [facility] [address] [place] [address] Roadside Mechanic: Joey Tuttle MD #### ACHRGA #### [facility] [address] [place], [place] [phone] Roadside Mechanic: Han Carr MD #### CP, CDP #### [facility] [address] [place] [address] Roadside Mechanic: Fifi Mckeon.Neutrophil (Seg)6.41 k/uLNormal2.1-6.5[facility] Memorial HospitalComment on above:Performed By: #### GLYHGB #### [address] [address] Roadside Mechanic: Joey Tuttle MD #### ACHRGA #### [facility] [address] [place] [address] Roadside Mechanic: Han Carr MD #### CP, CDP #### [facility] [address] [place] [address] [address]side Mechanic: Nacho Reaves MDBasophils/100 WBC (Bld)0 %Normal0-2Mercy Potomac HospitalComment on above:Performed By: #### GLYHGB #### [facility] [address] [place] [address] Roadside Mechanic: Joey Tuttle MD #### ACHRGA #### [facility] [address] [place] [address] Roadside Mechanic: Han Carr MD #### CP, CDP #### [facility] [address] [place] [address] Roadside Mechanic: Nacho Reaves MDEosinophils (Bld) [#/Vol]0.36 10*3/uLNormal 0.00-0.40MerHolzer Health System HospitalComment on above:Performed By: #### GLYHGB #### [facility] [address] [place] [address] Roadside Mechanic: Joey Tuttle MD #### ACHRGA #### [facility] [address] [place], [place] [id number] Roadside Mechanic: Han Carr MD #### CP, CDP #### [facility] [address] [place] [address] Roadside Mechanic: Nacho Reaves MDEosinophils/100 WBC (Bld)5 %Normal0-5Wilson Memorial HospitalComment on above:Performed By: #### GLYHGB #### [facility] [address] [place] [address] Roadside Mechanic: Joey Tuttle MD #### ACHRGA #### [facility] [address] [place], [place] [id number] Roadside Mechanic: Han Carr MD #### CP, CDP #### [facility] [address] [place], [place] [id number] Roadside Mechanic: Nacho Reaves MDErythrocyte distribution width (RBC) [Ratio]17.0 % High12.1-15.2[facility] General HospitalComment on above:Performed By: #### GLYHGB #### [facility] [address] [place], [place] [id number] Roadside Mechanic: Joey Tuttle MD #### ACHRGA #### [facility] [address] [place], [place] [id number] Roadside Mechanic: Han Carr MD #### CP, CDP #### [facility] [address] [place] [address] Roadside Mechanic: Nacho Reaves MDHematocrit (Bld) [Volume fraction]29.6 %Low 41.0-53.0Wilson Memorial HospitalComment on above:Performed By: #### GLYHGB #### [facility] [address] [place] [address] Roadside Mechanic: Joey Tuttle MD #### ACHRGA #### [facility] [address] [place], [place] [id number] Roadside Mechanic: Han Carr MD #### CP, CDP #### [facility] [address] [place], [place] [id number] Roadside Mechanic: Nacho Reaves MDHemoglobin (Bld) [Mass/Vol]9.2 g/dLLow13.5-17.5 [facility] HospitalComment on above:Performed By: #### GLYHGB #### [address] [address] Roadside Mechanic: Joey Tuttle MD #### ACHRGA #### [facility] [address] [place], [place] [id number] Roadside Mechanic: Han Carr MD #### CP, CDP #### [facility] [address] [place] [address] Roadside Mechanic: Nacho Reaves MDImmature granulocytes/100 WBC (Bld)0 %Normal0-5 Wilson [facility] HospitalComment on above:Performed By: #### GLYHGB #### [facility] [address] [place] [address] Roadside Mechanic: Joey Tuttle MD #### ACHRGA #### [facility] [address] [place] [address] Roadside Mechanic: Han Carr MD #### CP, CDP #### [facility] [address] [place] [address] Roadside Mechanic: Nacho Reaves MDLymphocytes (Bld) [#/Vol]0.66 10*3/uLLow1.00-4.80 [facility] on above:Performed By: #### GLYHGB #### [facility] [address] [place] [address] Roadside Mechanic: Joey Tuttle MD #### ACHRGA #### [facility] [address] [place], [place] [id number] Roadside Mechanic: Han Carr MD #### CP, CDP #### [facility] [address] [place] [address] Roadside Mechanic: Nacho Reaves MDLymphocytes/100 WBC (Bld)8 %Qtk36-66SedubWilson Memorial HospitalCommymichigan medical center sag[place] on above:Performed By: #### GLYHGB #### [facility] [address] [place] [address] Roadside Mechanic: Joey Tuttle MD #### ACHRGA #### [facility] [address] [place] [address] Roadside Mechanic: Han Carr MD #### CP, CDP #### [facility] [address] [place], [place] [id number] Roadside Mechanic: ALIYAH MckeonCH (RBC) [Entitic mass]25.8 pgLow26.0-34.0Wilson Memorial HospitalComment on above:Performed By: #### GLYHGB #### [facility] [address] [place], [place] [id number] Roadside Mechanic: Joey Tuttle MD #### ACHRGA #### [facility] [address] [place], [place] [id number] Roadside Mechanic: Han Carr MD #### CP, CDP #### [facility] [address] [place], [place] [id number] Roadside Mechanic: CLEMENTE MckeonC (RBC) [Mass/Vol]31.1 g/nHUvmnwe03.0-37.0Wilson Memorial HospitalComment on above:Performed By: #### GLYHGB #### [facility] [address] [place] [address] Roadside Mechanic: Joey Tuttle MD #### ACHRGA #### [facility] [address] [place], [place] [id number] Roadside Mechanic: Han Carr MD #### CP, CDP #### [facility] [address] [place], [place] [address] Roadside Mechanic: JAMEY Mckeon (RBC) [Entitic vol]82.9 yRZsizln05.0-100.0 Wilson Memorial HospitalComment on above:Performed By: #### GLYHGB #### [facility] [address] [place] [address] Roadside Mechanic: Joey Tuttle MD #### ACHRGA #### [facility] [address] [place], [place] [id number] Roadside Mechanic: Han Carr MD #### CP, CDP #### [facility] [address] [place] [address] Roadside Mechanic: Nacho Reaves MDMonocytes (Bld) [#/Vol]0.53 10*3/uLNormal0.00-1.00 Wilson [facility] HospitalComment on above:Performed By: #### GLYHGB #### [facility] [address] [place] [address] Roadside Mechanic: Joey Tuttle MD #### ACHRGA #### [facility] [address] [place] [address] Roadside Mechanic: Han Carr MD #### CP, CDP #### [facility] [address] [place] [address] Roadside Mechanic: Nacho Reaves MDMonocytes/100 WBC (Bld)7 %Normal5-9Wilson Memorial HospitalComment on above:Performed By: #### GLYHGB #### [facility] [address] [place] [address] Roadside Mechanic: Joey Tuttle MD #### ACHRGA #### [facility] [address] [place] [address] Roadside Mechanic: Han Carr MD #### CP, CDP #### [facility] [address] [place] [address] Roadside Mechanic: Nacho Reaves MDNeutrophil (Seg)80 %Wgti81-14ObqeeWilson Memorial HospitalComment on above:Performed By: #### GLYHGB #### [facility] [address] [place] [address] Roadside Mechanic: Joey Tuttle MD #### ACHRGA #### [facility] [address] [place] [address] Roadside Mechanic: Han Carr MD #### CP, CDP #### [facility] [address] [place], [place] [id number] Roadside Mechanic: Baldev Mckeon mean volume (Bld) [Entitic vol]9.0 fL Normal6.0-12.0Wilson Memorial HospitalComment on above:Performed By: #### GLYHGB #### [facility] [address] [place] [address] Roadside Mechanic: Joey Tuttle MD #### ACHRGA #### [facility] [address] [place] [address] Roadside Mechanic: Han Carr MD #### CP, CDP #### [facility] [address] [place] [address] Roadside Mechanic: Seble Mckeon (Bld) [#/Vol]282 10*3/cZVinqjt022-884 [facility] HospitalComment on above:Performed By: #### GLYHGB #### [facility] [address] [place] [address] Roadside Mechanic: Joey Tuttle MD #### ACHRGA #### [facility] [address] [place] [address] Roadside Mechanic: Han Carr MD #### CP, CDP #### [facility] [address] [place] [address] Roadside Mechanic: RUTH cMkeon (Bld) [#/Vol]3.57 10*6/uLLow4.50-5.90[facility] on above:Performed By: #### GLYHGB #### [facility] [address] [place] [address] Roadside Mechanic: Joey Tuttle MD #### ACHRGA #### [facility] [address] [place] [address] Roadside Mechanic: Han Carr MD #### CP, CDP #### [facility] [address] [place], [place] [id number] Roadside Mechanic: Nacho Reaves MDMONTEFIORE [facility] (Bld) [#/Vol]8.0 10*3/uLNormal3.5-11.0Wilson Memorial HospitalComment on above:Performed By: #### GLYHGB #### [facility] [address] [place] [address] Roadside Mechanic: Joey Tuttle MD #### ACHRGA #### [facility] [address] [place], [place] [id number] Roadside Mechanic: Han Carr MD #### CP, CDP #### [facility] [address] [place], [place] 24[address]290 Roadside Mechanic: SHAMAR Mckeonbrigham city community hospital Metabolic Profon 35-97-7139Mybjyzv [Mass/Vol] 3.6 g/dLNormal3.5-5.2MWexner Medical CenterComment on above:Performed By: #### GLYHGB #### [facility] [address] [place] [address] Roadside Mechanic: Joey Tuttle MD #### ACHRGA #### [facility] [address] [place], [place] [id number] Roadside Mechanic: Han Carr MD #### CP, CDP #### [facility] [address] [place] [address] Roadside Mechanic: Willis Mckeon Sqfy425 U/FJyxw87-783GmmrxWilson Memorial HospitalComment on above:Performed By: #### GLYHGB #### [facility] [address] [place] [address] Roadside Mechanic: Joey Tuttle MD #### ACHRGA #### [facility] [address] [place], [place] [id number] Roadside Mechanic: Han Carr MD #### CP, CDP #### [facility] [address] [place] [address] Roadside Mechanic: Nacho Reaves MDALT [Catalytic activity/Vol]9 U/LNormal5-41Wilson Memorial HospitalComment on above:Performed By: #### GLYHGB #### [facility] [address] [place] [address] Roadside Mechanic: Joey Tuttle MD #### ACHRGA #### [facility] [address] [place], [place] [id number] Roadside Mechanic: Han Carr MD #### CP, CDP #### [facility] [address] [place] [address] Roadside Mechanic: Nacho Reaves MDAnion gap [Moles/Vol]19 mmol/LHigh9-17Wilson Memorial HospitalComment on above:Performed By: #### GLYHGB #### [facility] [address] [place] [address] Roadside Mechanic: Joey Tuttle MD #### ACHRGA #### [facility] [address] [place], [place] [id number] Roadside Mechanic: Han Carr MD #### CP, CDP #### [facility] [address] [place], [place] 510[address] Roadside Mechanic: Nacho Reaves MDAST [Catalytic activity/Vol]10 U/LNormal<40Wilson Memorial HospitalComment on above:Performed By: #### GLYHGB #### [facility] [address] [place] [address] Roadside Mechanic: Joey Tuttle MD #### ACHRGA #### [facility] [address] [place], [place] [id number] Roadside Mechanic: Han Carr MD #### CP, CDP #### [facility] [address] [place] [address] Roadside Mechanic: Nacho Reaves MDBilirubin [Mass/Vol]0.3 mg/dLNormal0.3-1.2MWexner Medical CenterComment on above:Performed By: #### GLYHGB #### [facility] [address] [place] [address] Roadside Mechanic: Joey Tuttle MD #### ACHRGA #### [facility] [address] [place], [place] [id number] Roadside Mechanic: Han Carr MD #### CP, CDP #### [facility] [address] [place] [address] Roadside Mechanic: Nacho Reaves MDBUN/CRE Rukog9Uby3-73JeudeWilson Memorial HospitalComment on above:Performed By: #### GLYHGB #### [facility] [address] [place] [address] Roadside Mechanic: Joey Tuttle MD #### ACHRGA #### [facility] [address] [place], [place] [id number] Roadside Mechanic: Han Carr MD #### CP, CDP #### [facility] [address] [place] [address] Roadside Mechanic: SHAMAR Mckeonalcium [Mass/Vol]9.1 mg/dLNormal8.6-10.4Wilson Memorial HospitalComment on above:Performed By: #### GLYHGB #### [facility] [address] [place] [address] Roadside Mechanic: Joey Tuttle MD #### ACHRGA #### [facility] [address] [place], [place] [id number] Roadside Mechanic: Han Carr MD #### CP, CDP #### [facility] [address] [place] [address] Roadside Mechanic: SHAMAR Mckeonhloride [Moles/Vol]93 mmol/JSxh24-240JbttrWilson Memorial HospitalComment on above:Performed By: #### GLYHGB #### [facility] [address] [place] [address] Roadside Mechanic: Joey Tuttle MD #### ACHRGA #### [facility] [address] [place], [place] [id number] Roadside Mechanic: Han Carr MD #### CP, CDP #### [facility] [address] [place], [place] 3369[address] Roadside Mechanic: Nacho Reaves MDCO2 [Moles/Vol]21 mmol/BDubwqh49-11BufybWilson Memorial HospitalComment on above:Performed By: #### GLYHGB #### [facility] [address] [place] [address] Roadside Mechanic: Joey Tuttle MD #### ACHRGA #### [facility] [address] [place], [place] [address] Roadside Mechanic: Han Carr MD #### CP, CDP #### [facility] [address] [place] [address] Roadside Mechanic: SHAMAR Mckeonreatinine [Mass/Vol]6.6 mg/dLCritically high 0.7-1.2MWexner Medical CenterComment on above:Performed By: #### GLYHGB #### [facility] [address] [place] [address] Roadside Mechanic: Joey Tuttle MD #### ACHRGA #### [facility] [address] [place], [place] [id number] Roadside Mechanic: Han Carr MD #### CP, CDP #### [facility] [address] [place], [place] [phone] Roadside Mechanic: Nacho Reaves MDGFR/1.73 sq M.predicted among non-blacks MDRD (S/P/Bld) [Vol rate/Area]9 mL/min/{1.73_m2}Low>60Wilson Memorial HospitalComment on above:Result Comment: These results [...] renal tubular secretion.Performed By: #### GLYHGB #### [address] [address] Roadside Mechanic: Joey Tuttle MD #### ACHRGA #### [facility] [address] [place], [place] [id number] Roadside Mechanic: Han Carr MD #### CP, CDP #### [facility] [address] [place], [place] [address]44[address] Roadside Mechanic: Nacho Reaves MDGlucose [Mass/Vol]268 mg/hNIsgd92-05CyubaWexner Medical CenterComment on above:Performed By: #### GLYHGB #### [address] [address] Roadside Mechanic: Joey Tuttle MD #### ACHRGA #### [facility] [address] [place], [place] [id number] Roadside Mechanic: Han Carr MD #### CP, CDP #### [facility] [address] [place], [place] 2240[address] Roadside Mechanic: LEYDA Mckeonotassium [Moles/Vol]4.6 mmol/LNormal3.7-5.3[facility] General HospitalComment on above:Performed By: #### GLYHGB #### [address] [address] Roadside Mechanic: Joey Tuttle MD #### ACHRGA #### [facility] [address] [place], [place] [id number] Roadside Mechanic: Han Carr MD #### CP, CDP #### [facility] [address] [place] [address] Roadside Mechanic: LEYDA Mckeonrotein [Mass/Vol]7.3 g/dLNormal6.4-8.3Mmercy health [address] rita's medical centery Neshoba County General HospitalComment on above:Performed By: #### GLYHGB #### [facility] [address] [place] [address] Roadside Mechanic: Joey Tuttle MD #### ACHRGA #### [facility] [address] [place], [place] [id number] Roadside Mechanic: Han Carr MD #### CP, CDP #### [facility] [address] [place] [address] Roadside Mechanic: SUNG Mckeonodium [Moles/Vol]133 mmol/VWfq432-719DvjolWilson Memorial HospitalComment on above:Performed By: #### GLYHGB #### [facility] [address] [place] [address] Roadside Mechanic: Joey Tuttle MD #### ACHRGA #### [facility] [address] [place], [place] [id number] Roadside Mechanic: Han Carr MD #### CP, CDP #### [facility] [address] [place], [place] [phone] Roadside Mechanic: Nacho Reaves MDUrea nitrogen [Mass/Vol]49 mg/dLHigh6-20Wilson Memorial HospitalComment on above:Performed By: #### GLYHGB #### [facility] [address] [place] [address] Roadside Mechanic: Joey Tuttle MD #### ACHRGA #### [facility] [address] [place] [address] Roadside Mechanic: Han Carr MD #### CP, TIFFANY #### [facility] [address] [place] [address] Roadside Mechanic: Nacho Reaves [facility] CITYomprehensive Metabolic Panelon 61-70-4334Wnmymcx [Mass/Vol]3.6 g/dL3.5 - 5.2 g/dLBon Adena Regional Medical CenterALP [Catalytic activity/Vol]171 U/LHigh40 - 129 U/LBon Adena Regional Medical CenterALT [Catalytic activity/Vol]9 U/L5 - 41 U/LBon [facility]ena Regional Medical CenterAnion gap [Moles/Vol]19 mmol/LHigh9 - 17 mmol/LBon Adena Regional Medical CenterAST [Catalytic activity/Vol]10 U/LNINF - 40 U/LBon Adena Regional Medical CenterBilirubin [Mass/Vol]0.3 mg/dL0.3 - 1.2 mg/dLBon Adena Regional Medical CenterCalcium [Mass/Vol]9.1 mg/dL8.6 - 10.4 mg/dLBon Ad[facility] Regional Medical CenterChloride [Moles/Vol]93 mmol/LLow98 - 107 mmol/LBon [facility]ena Regional Medical CenterCO2 [Moles/Vol]21 mmol/L20 - 31 mmol/LBon [facility] Creatinine [Mass/Vol]6.6 mg/dLCritically high0.7 - 1.2 mg/dLBon [facility] Regional Medical CenterEst, Glom Filt Tsoy4Jsb- PINFBon Adena Regional Medical CenterComment on above: These results are not intended [...] that affects renal tubular secretion. Glucose [Mass/Vol]268 mg/uSFggt38 - 99 mg/dLBon [facility] Interpretation and review of laboratory resultsAbnormalRussell County Medical Centery Health Potassium [Moles/Vol]4.6 mmol/L3.7 - 5.3 mmol/LBon [facility] Regional Medical CenterProtein [Mass/Vol]7.3 g/dL6.4 - 8.3 g/dLBon [facility] Regional Medical CenterSodium [Moles/Vol]133 mmol/ZMbs056 - 144 mmol/LBon [facility] Regional Medical CenterUrea nitrogen [Mass/Vol]49 mg/dLHigh6 - 20 mg/dLBon [facility] Regional Medical CenterUrea nitrogen/Creatinine [Mass ratio]7 mg/mgLow9 - 20Bon [facility] Dakot[facility] HealthCHLORIDE (POC)on 48-21-3678Lpdamtcu [Moles/Vol]100 mmol/L98 - 107 mmol/LBon Adena Regional Medical CenterCreatinine W/GFR Point of Careon 78-00-0594Ojterdjxwc [Mass/Vol]5.1 mg/dL Critically high0.51 - 1.19 mg/dLBon Ad[facility] Regional Medical CentereGFR, KIE74Vai- PINFBon Adena Regional Medical CenterComment on above: These results are not intended [...] renal tubular secretion. Hemoglobin and hematocrit, bloodon 79-03-3045Ecdoqvooog (Bld) [Volume fraction] 27 %Low41 - 53 %[facility] HospitalHemoglobin (Bld) [Mass/Vol]9.2 g/dLLow 13.5 - 17.5 g/dLBon Ad[facility] Regional Medical CenterNo Panel Informationon 08-29-2024 Interpretation and review of laboratory resultsAbnormInova Alexandria HospitalPOC Glucose Fingerstickon 70-01-5410Deliufm [Mass/Vol] 275 mg/zYZhhy94 - 110 mg/dLBon Ad[facility] Regional Medical CenterInterpretation and review of laboratory resultsAbnormRiverside Tappahannock Hospital Glucose [Mass/Vol]262 mg/zMJfvv12 - 110 mg/dLBon [facility] Interpretation and review of laboratory resultsAbnormalBon [facility] CenterPOCT Glucoseon 72-74-1104Exzfxoj [Mass/Vol]343 mg/dLHigh 74 - 100 mg/dLBon German HospitalCT urea (BUN)on 93-50-2214Bxva nitrogen [Mass/Vol]39 mg/dLHigh8 - 26 mg/dLBon [facility] Regional Medical CenterPOTASSIUM (POC)on 89-31-4200Mwjzazzww [Moles/Vol]4.0 mmol/L3.5 - 4.5 mmol/LBon Adena Regional Medical CenterSODIUM (POC)on 52-37-9770Grjxep [Moles/Vol]135 mmol/NCva282 - 146 mmol/L [facility] HospitalCBC Auto Differentialon 68-59-5541Qwaigjsoi (Bld) [#/Vol]0.01 10*3/uLOhioHealthBasophils/100 WBC (Bld)0.1 %OhioHealthEosinophils (Bld) [#/Vol]0.18 10*3/uLOhioHealthEosinophils/100 WBC (Bld)2.5 %[facility] Erythrocyte distribution width (RBC) [Entitic vol]18.3 %High11.6 - 14.8 % [facility] HospitalHematocrit (Bld) [Volume fraction]26.4 %Low41.0 - 53.0 %[facility] Hemoglobin (Bld) [Mass/Vol]8.0 g/dLLow13.5 - 17.5 g/dLOhioHealthImmature granulocytes (Bld) [#/Vol]0.03 10*3/uLOhioHealthImmature granulocytes/100 WBC (Bld)0.40 %[facility] HospitalComment on above:The IG parameter is the [...] OhioHealthWBC (Bld) [#/Vol]7.07 10*3/uLOhioHealthOhioHealthComprehensive metabolic 2000 panelon 99-94-2108Wlhlpto [Mass/Vol]2.9 g/dLLow3.2 - 5.2 g/dL [facility]HealthALP [Catalytic [...] using the 2020 CKD-EPI creatinine equation.Glucose [Mass/Vol]344 mg/oDBdtp21 - 99 mg/dLOhioHealthHCO3 [Moles/Vol] 24 mmol/L21 - 32 mmol/LOhioHealthInterpretation and review of laboratory results AbnormalOhioHealthPotassium [Moles/Vol]4.0 mmol/L3.5 - 5.1 mmol/LOhioHealth Protein [Mass/Vol]5.5 g/dLLow6.0 - 8.0 g/dLOhioHealthSodium [Moles/Vol]128 mmol/YEal550 - 145 mmol/LOhioHealthUrea nitrogen [Mass/Vol]23 mg/dL8 - 25 mg/dL OhioHealthUrea nitrogen/Creatinine [Mass ratio]6.8 mg/mgLow10.0 - 20.0[facility] Services has implemented the eGFR calculation approach that does not have a coefficient for race that conforms to the NKF-ASN Task Force Recommendations.[facility] HospitalOhioHealthGlucose (Bld) [Mass/Vol]on 06-22-2024 Glucose [Mass/Vol]454 mg/dLCritically high65 - 99 mg/dLOhioHealthInterpretation and review of laboratory resultsAbnormalOhioHealthCritical result acted upon time of test. Test performed at bedside.OhioHealthOhioHealthGlucose [Mass/Vol] 456 mg/dLCritically high65 - 99 mg/dLOhioHealthGlucose [Mass/Vol]342 mg/pFCdds25 - 99 mg/dLOhioHealthInterpretation and review of laboratory resultsAbnormal OhioOhio Valley Surgical HospitalOhioHealthACT Coag (Bld)on 20-95-8261Varcwz activated time Qn (Bld)275 secondsOhioHealthOhioHealthAPTT Heparin Coverageon 61-36-6409nAZA Coag (Bld) [Time]Critically highOhioHealthInterpretation and review of laboratory results AbnormalOhioHealthTherapeutic range for APTT's is 68 - 104 secondsSelect Medical Specialty Hospital - Southeast OhioaPTT Coag (Bld) [Time]83 sHighOhioHealthInterpretation and review of laboratory resultsAbnormalOhioHealthTherapeutic range for APTT's is 68 - 104 secondsOhDayton VA Medical CenterCBC Auto Differentialon 87-30-7032Eqtqkguqo (Bld) [#/Vol]0.02 10*3/uLOhioHealthBasophils/100 WBC (Bld)0.2 %OhioHealthEosinophils (Bld) [#/Vol]0.26 10*3/uLOhioHealthEosinophils/100 WBC (Bld)3.1 %[facility] Erythrocyte distribution width (RBC) [Entitic vol]18.4 %High11.6 - 14.8 % [facility] HospitalHematocrit (Bld) [Volume fraction]28.6 %Low41.0 - 53.0 %[facility] Hemoglobin (Bld) [Mass/Vol]8.7 g/dLLow13.5 - 17.5 g/dLOhioHealthImmature granulocytes (Bld) [#/Vol]0.05 10*3/uLOhioHealthImmature granulocytes/100 WBC (Bld)0.60 %[facility] HospitalComment on above:The IG parameter is the percentage of metamyelocytes, myelocytes and promyelocytes. An immature granulocyte count (IG) of 1% or more suggests the possibility of infection, an IG count of 3% is very likely related to an infection.Interpretation and review of laboratory results AbnormalOhioHealthLymphocytes (Bld) [#/Vol]0.79 10*3/uLLowOhioHealth Lymphocytes/100 WBC (Bld)9.5 %[facility] HospitalMCH (RBC) [Entitic mass]25.9 pgLow26.0 - 34.0 [...] [#/Vol]3.36 10*6/uLLow OhioHealthWBC (Bld) [#/Vol]8.30 10*3/uLOhioHealthOhioHealthCardiac Catheterizationon 93-23-4789Uhlaulfiei: Severe 3 vessel coronary artery disease Patent [...] normal. Appropriate use criteria Indication for PCI: NSTEMI/UA.So Protect Me CVOhioHealthRadiology Study observation (narrative)New JerseyHealthComprehensive metabolic 1999 panelOrdered By: Lv Christianson on 34-75-9136Odnfpsf [Mass/Vol]3.1 g/dLLow3.2 - 5.2 g/dLOhioHealthALP [Catalytic activity/Vol]173 [...] the 2020 CKD-EPI creatinine equation. Glucose [Mass/Vol]301 mg/lMOgmq05 - 99 mg/dLOhioHealthHCO3 [Moles/Vol]22 mmol/L 21 - 32 mmol/LOhioHealthInterpretation and review of laboratory resultsAbnormal OhioHealthPotassium [Moles/Vol]4.5 mmol/L3.5 - 5.1 mmol/LOhioHealthProtein [Mass/Vol]6.0 g/dL6.0 - 8.0 g/dLOhioHealthSodium [Moles/Vol]126 mmol/FDfl114 - 145 mmol/LOhioHealthUrea nitrogen [Mass/Vol]40 mg/dLHigh8 - 25 mg/dLOhioHealth Urea nitrogen/Creatinine [Mass ratio]7.7 mg/mgLow10.0 - 20.0OhioHealthOhioHealth Laboratory Services has implemented the eGFR calculation approach that does not have a coefficient for race that conforms to the NKF-ASN Task Force Recommendations.[facility] 81-26-1718Kbregrx Info Name: LORENZO AMATO Age: 54 years : 1970 Gender: Male Ht: 175 cm Wt: 139 kg BSA: 2.67 m2 HR: 85 bpm BP: 141 / 74 mmHg Heart Rhythm: Sinus Rhythm Technical Quality: Fair Exam Date: 06/21/2024 1:43 PM Patient Status: Inpatient Sales Host: Sherice Owens RDCS Exam Type: ECHOCARDIOGRAM LIMITED Study Info Indications I31.3 - Pericardial effusion (noninflammatory) Referring Physician: GRACIE MILLER ; [id number] BMI: 45.34 kg/m2 Summary 1. A Limited [...] Date: 06/21/2024 1:43 PM Patient Status: Inpatient Sales Host: Sherice Owens KARAN Exam Type: ECHOCARDIOGRAM LIMITED Study Info Indications I31.3 - Pericardial effusion (noninflammatory) Referring Physician: GRACIE MILLER ; [phone] BMI: 45.34 kg/m2 Summary 1. A Limited [...] on 06/21/2024 02:23 PM [facility]HealthOhioHealthGlucose (Bld) [Mass/Vol]on 58-08-7697Gyllrlu [Mass/Vol]204 mg/cIJfua68 - 99 mg/dLOhioHealthInterpretation and review of laboratory results AbnormalOhioHealthOhioHealthGlucose [Mass/Vol]334 mg/aUKakj04 - 99 mg/dL OhioHealthInterpretation and review of laboratory resultsAbnormalOhioHealth New JerseyHealthHemodialysis inpatienton 30-04-1167UbmeaHeather Granger RN 06/21/2024 8:10 PM Hemodialysis tx complete. Patient hypotensive with fluid removal goals. Dr. Miller updated and orded 1000ml's ns to be given during the remainder of tx. Patient tolerated tx well. +1000 UF Pre weight 132.3kg Post weight 133kg Tx start 1543 Tx complete-194 Post tx vitals-130/66 t-98.6 p-83 rr-18OhioHealthOhioHealthAPTT Heparin Coverage Ordered By: Mer Faith on 30-31-8728lBVG Coag (Bld) [Time]53 sHighOhioHealth Interpretation and review of laboratory resultsAbnormalOhioHealthTherapeutic range for APTT's is 68 - 104 secondsOhioHealthOhioHealthAPTT Heparin Coverage Ordered By: Marylou Mak on 84-04-5600dDNC Coag (Bld) [Time]41 sHighOhioHealth Interpretation and review of laboratory resultsAbnormalOhioHealthTherapeutic range for APTT's is 68 - 104 secondsOhioHealthOhioHealthCBC Auto Differentialon 75-58-6562Wqpcfayny (Bld) [#/Vol]0.02 10*3/uLOhioHealthBasophils/100 WBC (Bld) 0.3 %OhioHealthEosinophils [...] (RBC) [Mass/Vol]30.4 g/dLLow31.0 - 37.0 g/dL [facility] HospitalMCV (RBC) [Entitic vol]85.7 fL80.0 - 100.0 fLOhioHealthMonocytes (Bld) [#/Vol]1.19 10*3/uLHighOhioHealthMonocytes/100 WBC (Bld)15.4 %[facility] Neutrophils (Bld) [#/Vol]5.36 10*3/uLOhioHealthNeutrophils/100 WBC (Bld)69.5 % OhioHealthNucleated RBC (Bld) [#/Vol]0.00 10*3/uLOhioHealthNucleated RBC/100 WBC (Bld) [Ratio]0.0 %[facility] HospitalPlatelet mean volume (Bld) [Entitic vol]10.1 fL9.4 - 12.4 fLOhioHealthPlatelets (Bld) [#/Vol]148 10*3/uLLowOhioHealthRBC (Bld) [#/Vol]3.15 10*6/uLLowOhioHealthWBC (Bld) [#/Vol]7.71 10*3/uLOhioHealth OhioHealthCBC panel Auto (Bld)on 56-58-8910Mnmfpmhyday distribution width (RBC) [Entitic vol]18.4 %High11.6 - 14.8 %OhioHealthHematocrit (Bld) [Volume fraction] 30.6 %Low41.0 - 53.0 %OhioHealthHemoglobin (Bld) [Mass/Vol]9.1 g/dLLow13.5 - 17.5 g/dLOhioHealthInterpretation and review of laboratory resultsAbnormal [facility] HospitalMCH (RBC) [Entitic mass]25.9 pgLow26.0 - 34.0 [...] using the 2020 CKD-EPI creatinine equation.Glucose [Mass/Vol]311 mg/vVKvkw06 - 99 mg/dLOhioHealthHCO3 [Moles/Vol]25 mmol/L21 - 32 mmol/LOhioHealth Interpretation and review of laboratory resultsAbnormalOhioHealthPotassium [Moles/Vol]4.0 mmol/L3.5 - 5.1 mmol/LOhioHealthProtein [Mass/Vol]6.1 g/dL6.0 - 8.0 g/dLOhioHealthSodium [Moles/Vol]132 mmol/LDkl652 - 145 mmol/LOhioHealthUrea nitrogen [Mass/Vol]29 mg/dLHigh8 - 25 mg/dLOhioHealthUrea nitrogen/Creatinine [Mass ratio]6.3 mg/mgLow10.0 - 20.0[facility] has implemented the eGFR calculation approach that does not have a coefficient for race that conforms to the NKF-ASN Task Force Recommendations.[facility] OhioHealthGlucose (Bld) [Mass/Vol]on 34-49-2598Twclafb [Mass/Vol]325 mg/kDQagk73 - 99 mg/dLOhioHealthInterpretation and review of laboratory resultsAbnormal OhioOhio Valley Surgical HospitalOhioHealthGlucose [Mass/Vol]320 mg/lZQrtw29 - 99 mg/dLOhioHealth Interpretation and review of laboratory resultsAbAppleton [facility] Glucose [Mass/Vol]288 mg/aVCgyb51 - 99 mg/dLOhioHealthInterpretation and review of laboratory resultsAbAppleton Municipal HospitalCBC Auto Differentialon 34-87-4228Expjetmij (Bld) [#/Vol]0.02 10*3/uLOhioHealthBasophils/100 WBC (Bld) 0.3 %OhioHealthEosinophils (Bld) [#/Vol]0.28 10*3/uLOhioHealthEosinophils/100 WBC (Bld)3.6 %OhioOhio Valley Surgical HospitalErythrocyte distribution width (RBC) [Entitic vol]17.5 % High11.6 [...] (Bld) [#/Vol]0.76 10*3/uLLow OhioHealthLymphocytes/100 WBC (Bld)9.7 %[facility] HospitalMCH (RBC) [Entitic mass]26.0 pg26.0 - 34.0 pgOhHealthMCHC (RBC) [Mass/Vol]30.0 g/dLLow31.0 - 37.0 g/dL [facility] HospitalMCV (RBC) [Entitic vol]86.8 fL80.0 - 100.0 fLOhioHealthMonocytes (Bld) [#/Vol]0.90 10*3/uLOhioHealthMonocytes/100 WBC (Bld)11.5 %New JerseyHealthNeutrophils (Bld) [#/Vol]5.84 10*3/uLOhioHealthNeutrophils/100 WBC (Bld)74.4 %[facility] Nucleated RBC (Bld) [#/Vol]0.00 10*3/uLOhioHealthNucleated RBC/100 WBC (Bld) [Ratio]0.0 %[facility] HospitalPlatelet mean volume (Bld) [Entitic vol]9.6 fL9.4 - 12.4 fLOhioHealthPlatelets (Bld) [#/Vol]171 10*3/uLOhioHealthRBC (Bld) [#/Vol]3.19 10*6/uLLowOhioHealthWBC (Bld) [#/Vol]7.84 10*3/uLOhioHealthOhioHealth Comprehensive metabolic 2000 panelon 09-23-8520Aedkxwt [Mass/Vol]3.1 g/dLLow3.2 - 5.2 g/dLOhioHealthALP [Catalytic activity/Vol]162 U/LHigh40 - 150 U/L OhioHealthALT [Catalytic activity/Vol]11 U/L0-50 U/LOhioHealthAnion gap [Moles/Vol]16 mmol/L10 - 20 mmol/LOhioHealthAST [Catalytic activity/Vol]16 U/L0- 50 U/LOhioHealthBilirubin [Mass/Vol]0.3 mg/dL0.0 - 1.3 mg/dLOhioHealthCalcium [Mass/Vol]8.5 mg/dL8.4 - 10.2 mg/dLOhioHealthChloride [Moles/Vol]97 mmol/LLow98 - 108 mmol/LOhioHealthCreatinine [Mass/Vol]5.14 mg/dLHigh0.50 - 1.30 mg/dL OhioHealthGFR/1.73 sq M.predicted CKD-EPI (S/P/Bld) [Vol rate/Area]12Low- PINF New JerseyHealthComment on above:Estimated GFR was calculated using the 2020 CKD-EPI creatinine equation.Glucose [Mass/Vol]225 mg/zRKxsf53 - 99 mg/dLOhioHealthHCO3 [Moles/Vol]25 mmol/L21 - 32 mmol/LOhioHealthInterpretation and review of laboratory resultsAbnormalOhioHealthPotassium [Moles/Vol]4.5 mmol/L3.5 - 5.1 mmol/LOhioHealthProtein [Mass/Vol]6.2 g/dL6.0 - 8.0 g/dLOhioHealthSodium [Moles/Vol]133 mmol/IDbt052 - 145 mmol/LOhioHealthUrea nitrogen [Mass/Vol]35 mg/dLHigh8 - 25 mg/dLOhioHealthUrea nitrogen/Creatinine [Mass ratio]6.8 mg/mgLow 10.0 - 20.0OhioAdena [facility] CenterioHealth [facility] has implemented the eGFR calculation approach that does not have a coefficient for race that conforms to the NKF-ASN Task Force Recommendations.[facility] HospitalioHealthHemodialysis inpatienton 84-73-3297Kcbyy, Dana M, RN 06/19/2024 1:43 PM Hemodialysis tx complete Hypotensive at times corrected with goal adjustments and NS bolus UF 2100 Pre tx wt-132.4kg Post tx wt-129.4kg Post tx vitals-136/69 t-98.6 p-78 rr-18OhioHealthOhioHealthCBC Auto Differential on 42-62-9998Ffrvzbfjm (Bld) [#/Vol]0.03 10*3/uLOhioHealthBasophils/100 WBC (Bld)0.4 %OhioHealthEosinophils (Bld) [...] using the 2020 CKD-EPI creatinine equation.Glucose [Mass/Vol]240 mg/kZSrlc72 - 99 mg/dLOhioHealthHCO3 [Moles/Vol]23 mmol/L21 - 32 mmol/L [facility] HospitalInterpretation and review of laboratory resultsAbnormalOhioHealth Potassium [Moles/Vol]4.1 mmol/L3.5 - 5.1 mmol/LOhioHealthProtein [Mass/Vol]6.2 g/dL6.0 - 8.0 g/dLOhioHealthSodium [Moles/Vol]133 mmol/YXiz480 - 145 mmol/L OhioHealthUrea nitrogen [Mass/Vol]29 mg/dLHigh8 - 25 mg/dLOhioHealthUrea nitrogen/Creatinine [Mass ratio]6.9 mg/mgLow10.0 - 20.0OhioHealthOhioHealth Laboratory Services has implemented the eGFR calculation approach that does not have a coefficient for race that conforms to the NKF-ASN Task Force Recommendations.[facility] Auto Differentialon 46-99-4476Zxbfcuuxo (Bld) [#/Vol]0.03 10*3/uLOhioHealthBasophils/100 WBC (Bld)0.4 %[facility] Eosinophils (Bld) [#/Vol]0.33 10*3/uLOhioHealthEosinophils/100 WBC (Bld)4.0 % [facility] HospitalErythrocyte distribution width (RBC) [Entitic vol]17.7 %High11.6 - 14.8 %[facility] HospitalHematocrit (Bld) [Volume fraction]24.5 %Low41.0 - 53.0 % [facility] HospitalHemoglobin (Bld) [Mass/Vol]7.3 g/dLLow13.5 - 17.5 g/dLNew JerseyHealth Immature granulocytes (Bld) [#/Vol]0.03 10*3/uLOhioHealthImmature granulocytes/100 WBC (Bld)0.40 %[facility] HospitalComment on above:The IG parameter is the percentage of metamyelocytes, myelocytes and promyelocytes. An immature gran ulocyte count (IG) of 1% or more suggests the possibility of infection, an IG count of 3% is very likely related to an infection.Interpretation and review of laboratory resultsAbnormalOhioHealthLymphocytes (Bld) [#/Vol]0.90 10*3/uL OhioHealthLymphocytes/100 WBC (Bld)11.0 %[facility] HospitalMCH (RBC) [Entitic mass]26.1 pg26.0 - 34.0 pgOhioHealthMCHC (RBC) [Mass/Vol]29.8 g/dLLow31.0 - 37.0 g/dL [facility] HospitalMCV (RBC) [Entitic vol]87.5 fL80.0 - 100.0 fLOhioHealthMonocytes (Bld) [#/Vol]0.96 10*3/uLHighOhioHealthMonocytes/100 WBC (Bld)11.8 %[facility] Neutrophils (Bld) [#/Vol]5.91 10*3/uLOhioHealthNeutrophils/100 WBC (Bld)72.4 % OhioHealthComment on above:Peripheral smear reviewed manuallyNucleated RBC (Bld) [#/Vol]0.00 10*3/uLOhioHealthNucleated RBC/100 WBC (Bld) [Ratio]0.0 %[facility] Platelet mean volume (Bld) [Entitic vol]9.3 fLLow9.4 - 12.4 fLOhioHealth Platelets (Bld) [#/Vol]196 10*3/uLOhioHealthRBC (Bld) [#/Vol]2.80 10*6/uLLow OhioHealthWBC (Bld) [#/Vol]8.16 10*3/uLOhioHealthCBC and Diff Morphologyon 10-33-3278Ovazdqpfb LM Ql (Bld)NormalNormalOhioHealthPolychromasia LM Ql (Bld) ModerateOhioHealthRBC [...] left curvature of the lumbar spine with vrwn-ta-jzkjembn degenerative disc disease. Osteitispubis is noted. Elroy [...] left curvature of the lumbar spine with jocq-qo-xwieldte degenerative disc disease. Osteitispubis is noted. IMPRESSION: [...] varicosities are noted. MPH/mjr Workstation ID: [id number] New JerseyHealthCT Abdomen and Pelvis WO contrastOrdered By: Elroy Roper on 19-73-2393MgrwOjmtur Work Phone: Comprehensive metabolic 2000 panelon 09-41-1487Udyfxei [Mass/Vol]3.0 g/dLLow3.2 - 5.2 g/dLOhioHealthALP [Catalytic activity/Vol]155 [...] using the 2020 CKD-EPI creatinine equation.Glucose [Mass/Vol]276 mg/gRUcsa94 - 99 mg/dLOhioHealthHCO3 [Moles/Vol]22 mmol/L21 - 32 mmol/LOhioHealth Interpretation and review of laboratory resultsAbnormalOhioHealthPotassium [Moles/Vol]4.2 mmol/L3.5 - 5.1 mmol/LOhioHealthProtein [Mass/Vol]5.7 g/dLLow6.0 - 8.0 g/dLOhioHealthSodium [Moles/Vol]131 mmol/IHng115 - 145 mmol/LOhioHealth Urea nitrogen [Mass/Vol]36 mg/dLHigh8 - 25 mg/dLOhioHealthUrea nitrogen/Creatinine [Mass ratio]7.5 mg/mgLow10.0 - 20.0[facility] has implemented the eGFR calculation approach that does not have a coefficient for race that conforms to the NKF-ASN Task Force Recommendations.[facility] HospitalioHealthHemodialysis inpatienton 08-59-4516RibquHeather Granger RN 06/17/2024 2:50 PM Hemodialysis tx complete without complications over 3hrs using a 3k bath Tx start-08:23 Tx complete-11:24 Pre tx wt-135.1kg Post tx wt-132.6kg UF 2.5kg Post tx vitals-131/74 t-98.2 p-70 r-18 OhioOhio Valley Surgical HospitalOhioHealthNo Panel Informationon 21-97-9105FrvlYmrlrbCZNG Heparin CoverageOrdered By: Giles Dooley on 13-42-8499yTFR Coag (Bld) [Time]70 sHigh [facility] HospitalInterpretation and review of laboratory resultsAbnormalOhioHeal Therapeutic range for APTT's is 68 - 104 secondsAshtabula County Medical CenterCBC Auto Differentialon 19-27-4575Rzgnlkrrr (Bld) [#/Vol]0.02 10*3/uLScioHealth Basophils/100 WBC (Bld)0.3 %OhioHealthEosinophils (Bld) [#/Vol]0.37 10*3/uL OhioHealthEosinophils/100 WBC (Bld)4.7 %[facility] HospitalErythrocyte distribution width (RBC) [Entitic vol]18.2 %High11.6 [...] 10*6/uLLowOhioHealthWBC (Bld) [#/Vol]7.82 10*3/uLOhioHealthOhioHealthComprehensive metabolic 2000 panelon 21-07-2110Boznwbs [Mass/Vol]3.1 g/dLLow3.2 - 5.2 g/dLOhioHealthALP [Catalytic activity/Vol]158 [...] using the 2020 CKD-EPI creatinine equation.Glucose [Mass/Vol]173 mg/hVTbnd07 - 99 mg/dLOhioHealthHCO3 [Moles/Vol]21 mmol/L21 - 32 mmol/L OhioHealthPotassium [Moles/Vol]4.2 mmol/L3.5 - 5.1 mmol/LOhioHealthProtein [Mass/Vol]5.9 g/dLLow6.0 - 8.0 g/dLOhioHealthSodium [Moles/Vol]136 mmol/L135 - 145 mmol/LOhioHealthUrea nitrogen [Mass/Vol]45 mg/dLHigh8 - 25 mg/dLOhioHealth Urea nitrogen/Creatinine [Mass ratio]8.4 mg/mgLow10.0 - 20.0OhioHealthOhioHealth Laboratory Services has implemented the eGFR calculation approach that does not have a coefficient for race that conforms to the NKF-ASN Task Force Recommendations.[facility] HospitalEchocardiogram complete w contrastOrdered By: Rui Vasquez on 52-58-2528Ksfphm valve area2.95039ghHhxzDrtkyv Work Phone: AV mean [phone] Work Phone: AV peak gradient9.1636mmHgOhioHealth Work Phone: [phone] %[facility] Work Phone: [facility] Work Phone: Echocardiogram complete w contraston 49-83-0320Vojmzoi Info Name: LORENZO AMATO Age: 54 years : 1970 Gender: Male Ht: 175 cm Wt: 139 kg BSA: 2.67 m2 HR: 74 bpm BP: 163 / 83 mmHg Heart Rhythm: Sinus Rhythm Technical Quality: Technically difficult Exam Date: 06/16/2024 10:12 AM Patient Status: Inpatient Sales Host: Sherice Owens [facility] Exam Type: ECHOCARDIOGRAM COMPLETE W CONTRAST Study Info Indications I50.20 - Unspecified systolic (congestive) heart failure Referring Physician: GRACIE MILLER ; [phone] BMI: 45.34 kg/m2 Summary 1. Mildly enlarged [...] Date: 06/16/2024 10:12 AM Patient Status: Inpatient Sales Host: Sherice Owens [facility] Exam Type: ECHOCARDIOGRAM COMPLETE W CONTRAST Study Info Indications I50.20 - Unspecified systolic (congestive) heart failure Referring Physician: GRACIE MILLER ; [id number] BMI: 45.34 kg/m2 Summary 1. Mildly enlarged [...] Peak Gradient 8 m (more content not included)...[facility] Hospitalgnesiumon 20-31-5316Wddgmslvd [Mass/Vol]1.9 mg/dL1.6 - 2.4 mg/dLOhioHealthMagnesium [Mass/Vol]on 25-47-4993Rzofivnmsvdgvl and review of laboratory resultsNormal OhioHealthNo Panel Informationon 47-68-2474Gjqgpnzcsucezn and review of laboratory resultsAbnormalOhioHealthOhioHealthPhosphoruson 96-55-9836Jdytcknqz [Mass/Vol]6.0 mg/dLHigh2.7 - 4.5 mg/dLOhioHealthVR Dialysis Cath Insert Tunnelon 06-16-2024 Tunneled dialysis catheter placement under fluoroscopic guidance. The catheter is available for immediate use. Moderate conscious sedation,20 minutes CONTACT INFORMATION: Dariusz Modi MD, PhD [facility], [place] [address] (O) [phone] (F) [phone] Workstation ID: [id number] Dariusz Tinsley MD - 06/16/2024 PROCEDURES: ULTRASOUND-GUIDED ACCESS OF RIGHT INTERNAL JUGULAR VEIN. TUNNELED DIALYSIS CATHETER PLACEMENT UNDER FLUOROSCOPIC GUIDANCE MODERATE CONSCIOUS SEDATION, 20 MINUTES HISTORY/CLINICAL DATA: End stage renal disease. The patient needs dialysis access. COMPARISON: None. SUPERVISOR PROCESS TESTING(S): Dariusz Modi MD, PhD ESTIMATED BLOOD LOSS: [...] well without immediate complication. Catheter: 23 cm [email or web address] tunneled dialysis catheter IMPRESSION: Tunneled dialysis catheter placement under fluoroscopic guidance. The catheter is available for immediate use. Moderate conscious sedation,20 minutes CONTACT INFORMATION: Dariusz Modi MD, PhD [facility], [place] [address] (O) [phone] (F) [phone] Workstation ID: [id number] [facility] HospitalOhioHealthRadiology Study observation (narrative)[facility] Auto Differentialon 50-39-6920Rzplwmlnz (Bld) [#/Vol]0.03 10*3/uLOhioHealth Basophils/100 WBC (Bld)0.3 %OhioHealthEosinophils (Bld) [#/Vol]0.36 10*3/uL OhioHealthEosinophils/100 WBC (Bld)3.8 %OhioOhio Valley Surgical HospitalErythrocyte distribution width (RBC) [Entitic vol]18.1 %High11.6 - [...] [#/Vol]9.48 10*3/uLOhioHealthOhioHealthCT Abdomen and Pelvis WO contraston 61-00-5308Wkqwidqop Study observation (narrative)OhioHealthComprehensive metabolic 2000 panelon 72-26-9694Owpihqj [Mass/Vol]3.6 g/dL3.2 - 5.2 g/dL OhioHealthALP [Catalytic [...] the 2020 CKD-EPI creatinine equation. Glucose [Mass/Vol]193 mg/tWMedn42 - 99 mg/dLOhioHealthHCO3 [Moles/Vol]22 mmol/L 21 - 32 mmol/LOhioHealthPotassium [Moles/Vol]5.0 mmol/L3.5 - 5.1 mmol/L OhioHealthProtein [Mass/Vol]7.2 g/dL6.0 - 8.0 g/dLOhioHealthSodium [Moles/Vol] 138 mmol/L135 - 145 mmol/LOhioHealthUrea nitrogen [Mass/Vol]44 mg/dLHigh8 - 25 mg/dLOhioHealthUrea nitrogen/Creatinine [Mass ratio]8.6 mg/mgLow10.0 - 20.0 [facility] has implemented the eGFR calculation approach that does not have a coefficient for race that conforms to the NKF-ASN Task Force Recommendations.OhioOhio Valley Surgical HospitalINR Coag (PPP) [Relative time]on 06-15-2024 Interpretation and review of laboratory resultsAbnormalOUC HealththPT Coag (PPP) [Time]15.6 sHighOhioHealthDuring the induction phase of oral anticoagulation, the INR may not reflect the anticoagulation status of the patient. Therapeutic ranges for INR's are: Most clinical situations: INR 2.0-3.0 Mechanical Prosthetic Valve: INR 2.5-3.5 Critical: INR >5.0OhioHealthOhioHealthMagnesiumon 39-03-9783Dtaeyrhpx [Mass/Vol] 2.0 mg/dL1.6 - 2.4 mg/dLOhioHealthMagnesium [Mass/Vol]on 06-15-2024 Interpretation and review of laboratory resultsNormalOhioHealthNo Panel Informationon 89-58-4131Pbcjuhybkbvcuw and review of laboratory resultsAbnormal OhioHealthOhioHealthPT/INRon 15-20-2776OBJ Coag (PPP) [Relative time]1.2 {INR} High0.8 - 1.1OhioHealthPhosphoruson 12-98-3251Grxoikpjg [Mass/Vol]5.9 mg/dLHigh 2.7 - 4.5 mg/dLOhioHealthCBCon 76-05-3404Bkmjvviingv distribution width (RBC) [Ratio]17.3 %High12.1 - 15.2 %[facility] DAYTONHematocrit (Bld) [Volume fraction]35.4 %Low41.0 - 53.0 %[facility] DAYTONHemoglobin (Bld) [Mass/Vol]11.2 g/dLLow13.5 - 17.5 g/dLBON [facility] HEALTHInterpretation and review of laboratory resultsAbnormalBON GALION COMMUNITY HOSPITALH (RBC) [Entitic mass]25.6 pgLow26.0 - 34.0 pgBON GALION COMMUNITY HOSPITALHC (RBC) [Mass/Vol]31.6 g/dL31.0 - 37.0 g/dLBON SECHIGHLAND DISTRICT HOSPITALV (RBC) [Entitic vol]80.8 fL80.0 - 100.0 fLBON SECDOCTORS HOSPITALPlatelet mean volume (Bld) [Entitic vol]9.0 fL 6.0 - 12.0 fLBON SECOCHSNER MEDICAL CENTER HEALTHPlatelets (Bld) [#/Vol]300 10*3/uLBON SECDOCTORS HOSPITALRBC (Bld) [#/Vol]4.38 10*6/uLLow4.50 - 5.90 m/uLBON ACC[facility] HOSPITAL DAYTONWBC other (Bld) [#/Vol]9.4BON SECDOCTORS HOSPITALBON SECDOCTORS HOSPITALRenal Function Panelon 22-63-9325Gceyitr [Mass/Vol]3.5 g/dL3.5 - 5.2 g/dL [facility] DAYTONAnion gap [Moles/Vol]16 mmol/L9 - 17 mmol/LBON SECDOCTORS HOSPITALCalcium [Mass/Vol]9.6 mg/dL8.6 - 10.4 mg/dLB[facility] Chloride [Moles/Vol]102 mmol/L98 - 107 mmol/LBON [facility] DAYTONCO2 [Moles/Vol]17 mmol/LLow20 - 31 mmol/LB[facility] DAYTONCreatinine [Mass/Vol]4.8 mg/dLHigh0.7 - 1.2 mg/dLBON [facility] ChoisrGFR/1.73 sq M.predicted MDRD (S/P/Bld) [Vol rate/Area]14 mL/min/{1.73_m2}Low- PINFBON [facility]ESS HOSPITAL DAYTONComment on above: These results are not intended [...] that affects renal tubular secretion. Glucose [Mass/Vol]101 mg/yMRcjq03 - 99 mg/dLBON [facility] Choisr Interpretation and review of laboratory resultsAbnormalBON [facility] Choisr Phosphate [Mass/Vol]6.4 mg/dLHigh2.5 - 4.5 mg/dLBON [facility] Choisr Potassium [Moles/Vol]5.0 mmol/L3.7 - 5.3 mmol/LBON [facility]ITAL DAYTONSodium [Moles/Vol]135 mmol/L135 - 144 mmol/LBON [facility] ChoisrUrea nitrogen [Mass/Vol]5 mg/dLLow6 - 20 mg/dLBON [facility] ChoisrUrea nitrogen/Creatinine [Mass ratio]1 mg/mgLow9 - 20B[facility] DAYTONB[facility] DAYTONCBC with Auto Differentialon 37-15-2697Bvqxochw Eos #0.20BON K[facility] HOSPITALScheduleThing Absolute Lymph #1.30[facility] HEALTHAbsolute [place] #0.70B[facility] SECOCHSNER MEDICAL CENTER HEALTHBasophils (Bld) [#/Vol]0.00 10*3/uLBON [facility] HEALTHBasophils/100 WBC (Bld)0 %0 - 2 %[facility] HEALTHDifferential TypeYESBON SECOURS BLANCHARD VALLEY HEALTH SYSTEMEosinophils/100 WBC (Bld)2 %0 - 5 %[facility] DAYTONHematocrit (Bld) [Volume fraction]35.0 %Low41 - 53 %[facility] DAYTONHemoglobin (Bld) [Mass/Vol]11.6 g/dLLow13.5 - 17.5 g/dLB[facility] Interpretation and review of laboratory resultsAbnormalB[facility] Lymphocytes/100 WBC (Bld)17 %13 - 44 %[facility]OSPITALH (RBC) [Entitic mass]28.0 pg26 - 34 pgBON SECHIGHLAND DISTRICT HOSPITALHC (RBC) [Mass/Vol]33.2 g/dL31 - 37 g/dLBON SECHIGHLAND DISTRICT HOSPITALV (RBC) [Entitic vol]84.6 fL80 - 100 fLBON [facility] HOSPITAL DAYTONMonocytes/100 WBC (Bld)9 %5 - 9 %[facility] Platelet distribution width (Bld) [Ratio]15.6 %High12.1 - 15.2 %[facility] HOSPITALPlatelets (Bld) [#/Vol]230 10*3/uLBON SECOCHSNER MEDICAL CENTER HEALTHRBC (Bld) [#/Vol]4.13 10*6/uLLow4.5 - 5.9 m/uLBON [facility]ITAL DAYTONSegmented neutrophils/100 WBC (Bld)72 %39 - 75 %B[facility] DAYTONSegs Absolute5.50 BON SECDOCTORS HOSPITALWBC (Bld) [#/Vol]7.6 10*3/uLBON [facility]OURS [facility] BELLIN PSYCHIATRIC CENTERComprehensive Metabolic Panelon 19-11-9966Isdksaf [Mass/Vol] 3.5 g/dL3.5 - 5.2 g/dLBON ACCESS HOSPITAL DAYTONALP [Catalytic activity/Vol]118 U/L40 - 129 U/LBON SECOURS WolfGIS HEALTHALT [Catalytic activity/Vol]18 U/L5 - 41 U/LBON SECOURS MERCScheduleThingAnion gap [Moles/Vol]11 mmol/L9 - 17 mmol/LBON SECOURS MERCY HEALTHAST [Catalytic activity/Vol]18 U/LNINF - 40 U/LBON SECOURS PlaytabaseBilirubin [Mass/Vol]0.3 mg/dL0.3 - 1.2 mg/dLBON SECOURS Playtabase Calcium [Mass/Vol]9.6 mg/dL8.6 - 10.4 mg/dLBON SECOURS MERCY HEALTHChloride [Moles/Vol]102 mmol/L98 - 107 mmol/LBON SECOURS WolfGIS HEALTHCO2 [Moles/Vol]21 mmol/L20 - 31 mmol/LBON SECOURS PlaytabaseCreatinine [Mass/Vol]3.55 mg/dLHigh 0.70 - 1.20 mg/dLBON SECOURS PlaytabaseGFR/1.73 sq M.predicted MDRD (S/P/Bld) [Vol rate/Area]20 mL/min/{1.73_m2}Low- PINFBON [facility]IL[facility] WESTEnerG2Comment on above: These results are not intended [...] that affects renal tubular secretion. Glucose [Mass/Vol]211 mg/rWTuus17 - 99 mg/dLBON [facility] WESTEnerG2 Interpretation and review of laboratory resultsAbnormalBON SECOURS Playtabase Potassium [Moles/Vol]4.7 mmol/L3.7 - 5.3 mmol/LBON SECOURS WolfGIS HEALTHProtein [Mass/Vol]6.9 g/dL6.4 - 8.3 g/dLBON SECEnerG2Sodium [Moles/Vol]134 mmol/OBwf239 - 144 mmol/LBON SECOURS PlaytabaseUrea nitrogen [Mass/Vol]46 mg/dLHigh6 - 20 mg/dLBON SECEnerG2Urea nitrogen/Creatinine (Bld) [Mass ratio]139 - 20BON [facility] WESTPyreg [facility] CENTERMagnesiumon [id number] [Mass/Vol]1.9 mg/dL1.6 - 2.6 mg/dLBON [facility] WESTPyreg [facility]ENTERNo Panel Informationon [id number] [facility] WESTPerformance Lab [place]Prezto [facility] CENTERPatient Fasting?on [id number] Fasting? yesBON K[facility]OUND[facility] HOSPITALPrezto [facility] CENTERBON K[facility] HOSPITALPrezto [facility] MEDICAL CENTERTSH with Reflexon 03-22-2023 TSH Qn3.43 m[IU]/LBON [facility] WESTPyreg [facility]ICAL CENTERXR CHEST (2 VW)on 03-22-2023 No acute cardiopulmonary abnormality. Dorsal degenerative changes are present. [facility] CONSOLIDATEDEXAM: XR CHEST (2 VW) HISTORY: Hypertension I 10. Coronary artery disease I 25.10 COMPARISON: Chest 03/17/2022 TECHNIQUE: PA and lateral views with 3 images FINDINGS: Heart size satisfactory. No mediastinal widening seen. Central vasculature symmetrical and satisfactory. Lung paula are expanded without infiltration, consolidation, edema, or effusion. Dorsal arthrosis and anterior longitudinal ligament calcification is present. [facility] Dunia Kulkarni, DO - 03/22/2023 EXAM: XR [...] cardiopulmonary abnormality. Dorsal degenerative changes are present. [employer] Work Phone: radiology Study observation (narrative)[employer] Work Phone: XR CHEST (2 VW)Ordered By: Dunia Carreon on 03-22-2023 [employer] Data Control Work Phone: cbc with Auto Differentialon [id number] Eos # 0.20BON QuinticAbsolute Lymph #1.30BON QuinticAbsolute [place] #0.50[facility] HEALTHBasophils (Bld) [#/Vol]0.00 10*3/uLBON [facility] HEALTHBasophils/100 WBC (Bld)0 %0 - 2 %[facility] HEALTH Differential TypeYESBON SECOURS [facility]ALTH SYSTEMEosinophils/100 WBC (Bld)2 %0 - 5 % [facility]ALTH SYSTEMHematocrit (Bld) [Volume fraction]37.2 %Low41 - 53 %BON SECDOCTORS HOSPITALHemoglobin (Bld) [Mass/Vol]12.4 g/dLLow13.5 - 17.5 g/dLBON [facility] HEALTHInterpretation and review of laboratory resultsAbnormalBON SECOURS [facility] HEALTH SYSTEMLymphocytes/100 WBC (Bld)12 %Low13 - 44 %BON SECHIGHLAND DISTRICT HOSPITALH (RBC) [Entitic mass]28.2 pg26 - 34 pgBON SECOURS [facility] CAMPUSHC (RBC) [Mass/Vol]33.3 g/dL31 - 37 g/dLBON SECHIGHLAND DISTRICT HOSPITALV (RBC) [Entitic vol]84.6 fL80 - 100 fLBON SECOURS [facility]ARD VALLEY HEALTH SYSTEMMonocytes/100 WBC (Bld)5 %5 - 9 % B[facility] SECOCHSN[facility] HEALTHPlatelet distribution width (Bld) [Ratio]15.3 %High12.1 - 15.2 %[facility] HEALTHPlatelets (Bld) [#/Vol]286 10*3/uLBON [facility] HEALTHRBC (Bld) [#/Vol]4.40 10*6/uLLow4.5 - 5.9 m/uLBON SECDOCTORS HOSPITALSegmented neutrophils/100 WBC (Bld)81 %High39 - 75 %[facility] HEALTHSegs Absolute8.70HighBON [facility] HEALTHWBC (Bld) [#/Vol]10.7 10*3/uL [facility] HEALTHComprehensive Metabolic Panelon [id number] [Mass/Vol]3.7 g/dL3.5 - 5.2 g/dLBON [facility] HEALTHALP [Catalytic activity/Vol]125 U/L40 - 129 U/LBON SECOURS QlikaY HEALTHALT [Catalytic activity/Vol]17 U/L5 - 41 U/LBON SEC[facility] QlikaY HEALTHAnion gap [Moles/Vol]13 mmol/L9 - 17 mmol/LBON SECOURS QlikaY HEALTHAST [Catalytic activity/Vol]19 U/LNINF - 40 U/LBON SECOURS WolfGIS HEALTHBilirubin [Mass/Vol]0.5 mg/dL0.3 - 1.2 mg/dLBON SECOURS QlikaY HEALTHCalcium [Mass/Vol]9.3 mg/dL8.6 - 10.4 mg/dLBON [facility]CY HEALTHChloride [Moles/Vol]97 mmol/LLow98 - 107 mmol/LBON SECOURS WolfGIS HEALTHCO2 [Moles/Vol]22 mmol/L20 - 31 mmol/LBON SEC[facility] WolfGIS HEALTHCreatinine [Mass/Vol]3.26 mg/dLHigh0.70 - 1.20 mg/dLBON SECOURS PlaytabaseGFR/1.73 sq M.predicted MDRD (S/P/Bld) [Vol rate/Area]22 mL/min/{1.73_m2}Low- PINFBON [facility] WESTEnerG2Comment on above: These results are not intended [...] that affects renal tubular secretion. Glucose [Mass/Vol]231 mg/iXUqhi83 - 99 mg/dLBON [facility] WESTEnerG2 Interpretation and review of laboratory resultsAbnormalBON SECOURS Playtabase Potassium [Moles/Vol]5.0 mmol/L3.7 - 5.3 mmol/LBON SECOURS WolfGIS HEALTHProtein [Mass/Vol]6.9 g/dL6.4 - 8.3 g/dLBON SECEnerG2Sodium [Moles/Vol]132 mmol/RVrh934 - 144 mmol/LBON SECOURS PlaytabaseUrea nitrogen [Mass/Vol]35 mg/dLHigh6 - 20 mg/dLBON SECOURS PlaytabaseUrea nitrogen/Creatinine (Bld) [Mass ratio]119 - 20BON [facility]ENTERPTH, Intact on [id number] and review of laboratory resultsAbnormStafford Hospital Iktpwv338.1 pg/dTWxix73.0 - 72.0 pg/mLBON [facility] Comment on above:SAMPLES FROM PATIENTS ROUTINELY RECEIVING HIGH DOSE BIOTIN THERAPY MAY SHOW FALSELY DEPRESSED RESULTS. ADDITIONAL INFORMATION MAY BE REQUIRED FOR DIAGNOSIS. [facility] HOSPITALCreatinine, Random Urineon 09-63-3729Ipoxessozb, Ur55.2 mg/dL39.0 - 259.0 mg/dLBON [facility] Hemoglobin and Hematocriton 60-57-2193Syxnofqwmo (Bld) [Volume fraction]38.0 % Low41 - 53 %[facility] HOSPITALHemoglobin (Bld) [Mass/Vol]12.5 g/dLLow13.5 - 17.5 g/dLBON [facility] DAYTONInterpretation and review of laboratory resultsAbnormalCARILION ROANOKE COMMUNITY HOSPITALMagnesiumon 80-70-4946Tokcgsoll [Mass/Vol]2.0 mg/dL1.6 - 2.6 mg/dLBON [facility] DAYTONNo Panel Informationon [id number] [facility] DAYTONProtein, urine, randomon 66-64-5789Hlslgke (U) [Mass/Vol]517 mg/dLBON [facility] DAYTONComment on above:No normal range established.[facility] HOSPITALRenal Function Panelon 79-89-1989Praejll [Mass/Vol]3.5 g/dL3.5 - 5.2 g/dLBON [facility] DAYTONAnion gap [Moles/Vol]10 mmol/L9 - 17 mmol/LBON [facility] DAYTONCalcium [Mass/Vol] 9.0 mg/dL8.6 - 10.4 mg/dLBON [facility] DAYTONChloride [Moles/Vol]98 mmol/L98 - 107 mmol/LBON [facility] DAYTONCO2 [Moles/Vol]25 mmol/L20 - 31 mmol/LBON [facility] HEALTHCreatinine [Mass/Vol]3.11 mg/dLHigh0.70 - 1.20 mg/dLBON SECOURS WolfGIS HEALTHGFR/1.73 sq M.predicted MDRD (S/P/Bld) [Vol rate/Area]23 mL/min/{1.73_m2}Low- PINFBON [facility] PlaytabaseComment on above: Effective Aug 17, 2022 These [...] that affects renal tubular secretion. Glucose [Mass/Vol]234 mg/zMIfsp89 - 99 mg/dLBON K[facility] HOSPITALScheduleThing Interpretation and review of laboratory resultsAbnormalBON K[facility]OUNDATION HOSPITALScheduleThing Phosphate [Mass/Vol]3.9 mg/dL2.5 - 4.5 mg/dLBON SECOURS WolfGIS HEALTHPotassium [Moles/Vol]4.9 mmol/L3.7 - 5.3 mmol/LBON SECOURS WolfGIS HEALTHSodium [Moles/Vol] 133 mmol/QBel719 - 144 mmol/LBON SECOURS CENTERVILLEPrezto HEALTHUrea nitrogen (BldV) [Mass/Vol]27 mg/dLHigh6 - 20 mg/dLBON SECEnerG2Urea nitrogen/Creatinine (Bld) [Mass ratio]99 - 20BON QuinticBasic Metabolic Panelon 86-47-7112Opcqj gap [Moles/Vol]12 mmol/L9 - 17 mmol/LBON SECPyreg HEALTHCalcium [Mass/Vol]8.8 mg/dL8.6 - 10.4 mg/dLBON SECOURS WolfGIS HEALTHChloride [Moles/Vol]100 mmol/L98 - 107 mmol/LBON SECOURS WolfGIS HEALTHCO2 [Moles/Vol]20 mmol/L20 - 31 mmol/LBON SEC[facility] WolfGIS HEALTHCreatinine [Mass/Vol] 3.02 mg/dLHigh0.70 - 1.20 mg/dLBON SECPyreg HEALTHGFR/1.73 sq M.predicted MDRD (S/P/Bld) [Vol rate/Area]24 mL/min/{1.73_m2}Low- PINFBON SECEnerG2Comment on above: Effective Aug 17, 2022 These [...] that affects renal tubular secretion. Glucose [Mass/Vol]260 mg/zUAngz32 - 99 mg/dLBON Quintic Interpretation and review of laboratory resultsAbnormalBON [facility] WESTEnerG2 Potassium [Moles/Vol]4.7 mmol/L3.7 - 5.3 mmol/LBON SECEnerG2Sodium [Moles/Vol]132 mmol/SXul337 - 144 mmol/LBON SECEnerG2Urea nitrogen (BldV) [Mass/Vol]32 mg/dLHigh6 - 20 mg/dLBON SECEnerG2Urea nitrogen/Creatinine (Bld) [Mass ratio]119 - 20BON SECOURS PlaytabaseBON [facility] WESTPyreg [facility] MEDICAL CENTERCBC with Auto Differentialon [id number] Eos #0.20[facility] ChoisrAbsolute Lymph #1.40B[facility] HEALTHAbsolute [place] # 0.60[facility] PlaytabaseBasophils (Bld) [#/Vol]0.00 10*3/uLBON SECOURS MERCPrezto HEALTHBasophils/100 WBC (Bld)0 %0 - 2 %B[facility] QlikaY HEALTHDifferential TypeYESBON SECOURS WolfGIS HEALTHEosinophils/100 WBC (Bld)2 %0 - 5 %[facility] PlaytabaseHematocrit (Bld) [Volume fraction]40.5 %Low41 - 53 %[facility] QlikaY HEALTHHemoglobin (Bld) [Mass/Vol]13.6 g/dL13.5 - 17.5 g/dLBON SECPyreg HEALTHInterpretation and review of laboratory resultsAbnormalBON SECEnerG2Lymphocytes/100 WBC (Bld)16 %13 - 44 %B[facility] CENTERVILLEY HEALTHMCH (RBC) [Entitic mass]29.0 pg26 - 34 pgBON SECOURS CENTERVILLEY HEALTHMCHC (RBC) [Mass/Vol]33.7 g/dL31 - 37 g/dLBON SECOURS CENTERVILLEY HEALTHMCV (RBC) [Entitic vol] 86.2 fL80 - 100 fLBON [facility]RS [facility] HEALTHMonocytes/100 WBC (Bld)7 %5 - 9 %[facility] HEALTHPlatelet distribution width (Bld) [Ratio]14.3 %12.1 - 15.2 % [facility] HEALTHPlatelets (Bld) [#/Vol]273 10*3/uLBON [facility] HEALTHRBC (Bld) [#/Vol]4.71 10*6/uL4.5 - 5.9 m/uLBON SECOCHSNER [facility] HEALTH Segmented neutrophils/100 WBC (Bld)75 %39 - 75 %B[facility]ERV[facility] HEALTHSegs Absolute6.70HighBON [facility] HEALTHWBC (Bld) [#/Vol]9.0 10*3/uLBON [facility] HEALTHBON [facility] HEALTHComprehensive Metabolic Panelon 08-11-2022 Albumin [Mass/Vol]3.3 g/dLLow3.5 - 5.2 g/dLBON SECOURS CENTERVILLEY HEALTHALP (Bld) [Catalytic activity/Vol]121 U/L40 - 129 U/LBON [facility]ENTERV[facility] HEALTHALT [Catalytic activity/Vol]19 U/L5 - 41 U/LBON [facility] HEALTHAnion gap [Moles/Vol]13 mmol/L9 - 17 mmol/LBON [facility]RS CENTERVILLEY HEALTHAST [Catalytic activity/Vol]18 U/LNINF - 40 U/LBON [facility] HEALTHBilirubin [Mass/Vol]0.3 mg/dL0.3 - 1.2 mg/dLBON [facility]RS [facility] HEALTHCalcium [Mass/Vol]9.1 mg/dL8.6 - 10.4 mg/dLBON [facility] HEALTHChloride [Moles/Vol]100 mmol/L98 - 107 mmol/L [facility] HEALTHCO2 [Moles/Vol]21 mmol/L20 - 31 mmol/LBON [facility] HEALTHCreatinine [Mass/Vol]2.85 mg/dLHigh0.7 - 1.2 mg/dLBON [facility] Free PSA/Total PSA [Mass fraction]6.8 g/dL6.4 - 8.3 g/dLBON [facility] GFR Clunqqpk93 mL/aucNbj17 - PINF mL/minCARILION STONEWALL JACKSON HOSPITALGFR Non- Gqgxqqxy82 mL/deaDlx48 - PINF mL/minCARILION STONEWALL JACKSON HOSPITALGFR/1.73 sq M.predicted MDRD (S/P/Bld) [Vol rate/Area][facility] HOSPITALComment on above:Average GFR for 50-59 years old: 93 mL/min/1.73sq m Chronic Kidney Disease: <60 mL/min/1.73sq m Kidney failure: <15 mL/min/1.73sq m eGFR calculated using average adult body mass. Additional eGFR calculator available at: http://www.MoveEZ/multiple_crcl_2011.htm Glucose [Mass/Vol]165 mg/eIYnnw88 - 99 mg/dLBON [facility] Interpretation and review of laboratory resultsAbnormalCARILION [facility] Potassium [Moles/Vol]4.5 mmol/L3.7 - 5.3 mmol/LBON [facility] DAYTONSodium [Moles/Vol]134 mmol/JYbg864 - 144 mmol/LBON [facility] DAYTONUrea nitrogen (BldV) [Mass/Vol]29 mg/dLHigh6 - 20 mg/dLBON [facility] DAYTONUrea nitrogen/Creatinine (Bld) [Mass ratio]109 - 20BON [facility] HEALTH CENTERLipid Panelon 28-33-5046Iafaonqtndf [Mass/Vol]142 mg/dLNINF - 200 mg/dLBON [facility] DAYTONComment on above: Cholesterol Guidelines: <200 Desirable 200-240 Borderline >240 Undesirable Cholesterol in HDL [Mass/Vol]34 mg/dLLow40 - PINF mg/dLBON [facility] Comment on above: HDL Guidelines: <40 Undesirable 40-59 Borderline >59 Desirable Cholesterol in LDL [Mass/Vol]65 mg/dL0 - 130 mg/dLBON Quintic Comment on above: LDL Guidelines: <100 Desirable 100-129 Near to/above Desirable 130-159 Borderline >159 Undesirable Direct (measured) LDL and calculated LDL are not interchangeable tests. Cholesterol.total/Cholesterol in HDL [Mass ratio]4.2 {ratio}NINF - 5BON [facility] WESTEnerG2Interpretation and review of laboratory resultsAbnormSelect Medical Specialty Hospital - Columbus SouthEnerG2Triglyceride [Mass/Vol]216 mg/dLHighNINF - 150 mg/dLBON [facility] WESTEnerG2Comment on above: Triglyceride Guidelines: <150 Desirable 150-199 Borderline 200-499 High >499 Very high Based on AHA Guidelines for fasting triglyceride, August 2012. [facility] QuinticBasic Metabolic Panel, Fastingon 51-34-4721Eqgve gap [Moles/Vol]10 mmol/L9 - 17 mmol/LBON [facility] WESTEnerG2Calcium [Mass/Vol]9.1 mg/dL8.6 - 10.4 mg/dLBON [facility] WESTEnerG2Chloride [Moles/Vol]103 mmol/L98 - 107 mmol/LBON [facility] WESTEnerG2CO2 [Moles/Vol]23 mmol/L20 - 31 mmol/LBON [facility] WESTEnerG2Creatinine [Mass/Vol]2.65 mg/dLHigh0.7 - 1.2 mg/dLBON [facility] WESTEnerG2GFR Mxphdzcf72 mL/tynThg56 - PINF mL/minBANNER GOLDFIELD [facility] QuinticGFR Non- Ruywbqcq36 mL/lkkQbu70 - PINF mL/minBON QuinticGFR/1.73 sq M.predicted MDRD (S/P/Bld) [Vol rate/Area][facility] QuinticComment on above:Average GFR for 50-59 years old: 93 mL/min/1.73sq m Chronic Kidney Disease: <60 mL/min/1.73sq m Kidney failure: <15 mL/min/1.73sq m eGFR calculated using average adult body mass. Additional eGFR calculator available at: http://www.MoveEZ/multiple_crcl_2012.htm Glucose [Mass/Vol]220 mg/mDGgyy32 - 99 mg/dLBON Quintic Interpretation and review of laboratory resultsAbnormalCARILION [facility] Potassium [Moles/Vol]4.5 mmol/L3.7 - 5.3 mmol/LBON [facility] DAYTONSodium [Moles/Vol]136 mmol/L135 - 144 mmol/LBON [facility] DAYTONUrea nitrogen (BldV) [Mass/Vol]31 mg/dLHigh6 - 20 mg/dLBON [facility] DAYTONUrea nitrogen/Creatinine (Bld) [Mass ratio]129 - 20CAR[facility] HOSPITALVitamin D 25 Hydroxyon 60-23-6495Dxxjylzgrlbjqn and review of laboratory resultsAbnormRiverside Walter Reed HospitalVit D, 25-Lgjargz38.4 ng/mL Low>29.9BVirginia Hospital Centerment on above: Reference Range: Vitamin D status Range Deficiency <20 ng/mL Mild Deficiency 20-30 ng/mL Sufficiency 30-100 ng/mL Toxicity >100 ng/mL [facility] HOSPITALHemoglobin and Hematocriton 30-89-1557Zudlpaxqwi (Bld) [Volume fraction]40.0 %Low41 - 53 %[facility] HOSPITALHemoglobin (Bld) [Mass/Vol]13.3 g/dLLow13.5 - 17.5 g/dLBON [facility] DAYTONInterpretation and review of laboratory resultsAbnormalCARILION ROANOKE COMMUNITY HOSPITALMagnesiumon 17-40-7938Upizswyay [Mass/Vol]1.8 mg/dL1.6 - 2.6 mg/dLBON [facility] DAYTONNo Panel Informationon [id number] [facility] PTH, Intacton 77-14-3067Eoe Fgbalf64.29 pg/mL15.0 - 65.0 pg/mLCARILION STONEWALL JACKSON HOSPITALComment on above:SAMPLES FROM PATIENTS ROUTINELY RECEIVING HIGH DOSE BIOTIN THERAPY MAY SHOW FALSELY DEPRESSED RESULTS. ADDITIONAL INFORMATION MAY BE REQUIRED FOR DIAGNOSIS. [facility] HOSPITALRenal Function Panelon [id number] [Mass/Vol]3.6 g/dL3.5 - 5.2 g/dLBON [facility] DAYTONAnion gap [Moles/Vol]12 mmol/L9 - 17 mmol/LBON [facility] DAYTONCalcium [Mass/Vol]9.5 mg/dL8.6 - 10.4 mg/dLBON [facility] HEALTHChloride [Moles/Vol]99 mmol/L98 - 107 mmol/LBON [facility] DAYTONCO2 [Moles/Vol]21 mmol/L20 - 31 mmol/LBON [facility] Creatinine [Mass/Vol]2.59 mg/dLHigh0.70 - 1.20 mg/dLBON [facility] DAYTONGFR Fkjvcvkf87 mL/minLow>60BON SECOCHSN[facility]ENTER HEALTHGFR Non- 26 mL/minLow>60BON [facility] DAYTONGFR/1.73 sq M.predicted MDRD (S/P/Bld) [Vol rate/Area][facility] HOSPITALComment on above:Average GFR for 50-59 years old: 93 mL/min/1.73sq m Chronic Kidney Disease: <60 mL/min/1.73sq m Kidney failure: <15 mL/min/1.73sq m eGFR calculated using average adult body mass. Additional eGFR calculator available at: http://www.MoveEZ/multiple_crcl_2012.htm Glucose [Mass/Vol]299 mg/fJMhpt21 - 99 mg/dLBON [facility] Interpretation and review of laboratory resultsAbnormalBON [facility] Phosphate [Mass/Vol]4.2 mg/dL2.5 - 4.5 mg/dLBON [facility] DAYTONPotassium [Moles/Vol]4.8 mmol/L3.7 - 5.3 mmol/LBON [facility] DAYTONSodium [Moles/Vol] 132 mmol/ZVhz319 - 144 mmol/LBON [facility] DAYTONUrea nitrogen (BldV) [Mass/Vol]32 mg/dLHigh6 - 20 mg/dLBON [facility] DAYTONUrea nitrogen/Creatinine (Bld) [Mass ratio]12CARIL[facility] STONEWALL JACKSON HOSPITALLipid Panelon 10-61-4822Xhqwifhqrsv [Mass/Vol]168 mg/dL<200Mercy HealthComment on above: Cholesterol Guidelines: <200 Desirable 200-240 Borderline >240 Undesirable Cholesterol in HDL [Mass/Vol]34 mg/dLLow>40Mercy HealthComment on above: HDL Guidelines: <40 Undesirable 40-59 Borderline >59 Desirable Cholesterol in LDL [Mass/Vol]93 mg/dL0 - 130 mg/dLMartin Memorial HospitalComment on above: LDL Guidelines: <100 Desirable 100-129 Near to/above Desirable 130-159 Borderline >159 Undesirable Direct (measured) LDL and calculated LDL are not interchangeable tests. Cholesterol.total/Cholesterol in HDL [Mass ratio]4.9 {ratio}<5[facility] Interpretation and review of laboratory resultsAbnormalMartin Memorial HospitalTriglyceride [Mass/Vol]205 mg/dLHigh<150Mercy HealthComment on above: Triglyceride Guidelines: <150 Desirable 150-199 Borderline 200-499 High >499 Very high Based on AHA Guidelines for fasting triglyceride, August 2012. [facility] HospitalBUN & Creatinineon 58-54-3198Dctzfqxtxz [Mass/Vol]2.51 mg/dLHigh0.70 - 1.20 mg/dLMccullough-Hyde Memorial Hospital HealthGFR Tioilvrp41 mL/minLow>60Mercy HealthGFR Non- Ahrdnvva14 mL/minLow>60Mercy HealthGFR/1.73 sq M.predicted MDRD (S/P/Bld) [Vol rate/Area][facility] HospitalComment on above:Average GFR for 50-59 years old: 93 mL/min/1.73sq m Chronic Kidney Disease: <60 mL/min/1.73sq m Kidney failure: <15 mL/min/1.73sq m eGFR calculated using average adult body mass. Additional eGFR calculator available at: http://www.MoveEZ/multiple_crcl_2011.htm Interpretation and review of laboratory resultsAbnormAlleghany Health HealthUrea nitrogen (BldV) [Mass/Vol]33 mg/dLHigh6 - 20 mg/dLMartin Memorial HospitalBasic Metabolic Panel, Fastingon 94-51-7062Ryvrq gap [Moles/Vol]13 mmol/L9 - 17 mmol/LMercy Health Calcium [Mass/Vol]9.4 mg/dL8.6 - 10.4 mg/dLMccullough-Hyde Memorial Hospital HealthChloride [Moles/Vol]100 mmol/L98 - 107 mmol/LMercy HealthCO2 [Moles/Vol]23 mmol/L20 - 31 mmol/LMercy HealthCreatinine [Mass/Vol]2.51 mg/dLHigh0.70 - 1.20 mg/dLMercy HealthGFR Mpbhezrq71 mL/minLow>60Mercy HealthGFR Non- Qsmuohcf66 mL/minLow >60Mercy HealthGFR/1.73 sq M.predicted MDRD (S/P/Bld) [Vol rate/Area][facility] HospitalComment on above:Average GFR for 50-59 years old: 93 mL/min/1.73sq m Chronic Kidney Disease: <60 mL/min/1.73sq m Kidney failure: <15 mL/min/1.73sq m eGFR calculated using average adult body mass. Additional eGFR calculator available at: http://www.MoveEZ/multiple_crcl_2011.htm Glucose [Mass/Vol]204 mg/zJTxgq98 - 99 mg/dLMccullough-Hyde Memorial Hospital HealthInterpretation and review of laboratory resultsAbnormalMccullough-Hyde Memorial Hospital HealthPotassium [Moles/Vol]5.3 mmol/L 3.7 - 5.3 mmol/LMercy HealthSodium [Moles/Vol]136 mmol/L135 - 144 mmol/LMercy HealthUrea nitrogen (BldV) [Mass/Vol]33 mg/dLHigh6 - 20 mg/dLMer HealthUrea nitrogen/Creatinine (Bld) [Mass ratio]13[facility] Auto Differentialon 61-06-7898Mzwbdylt Eos #0.20Mer HealthAbsolute Lymph #1.00Mer HealthAbsolute [place] #0.60Mercy HealthBasophils (Bld) [#/Vol]0.00 10*3/uLMer HealthBasophils/100 WBC (Bld)0 %0 - 2 %[facility] HealthDifferential TypeYESMercy HealthEosinophils/100 WBC (Bld)2 %0 - 5 %[facility] HealthHematocrit (Bld) [Volume fraction]42.8 %41 - 53 %[facility] HospitalHemoglobin.gastrointestinal spec 1 Ql (Stl) 14.1 g/dL13.5 - 17.5 g/dLMartin Memorial HospitalInterpretation and review of laboratory resultsAbnormFulton County Health CenterLymphocytes/100 WBC (Bld)13 %13 - 44 %[facility] Memorial HospitalMCH (RBC) [Entitic mass]28.5 pg26 - 34 pgUniversity Hospitals Geauga Medical CenterHC (RBC) [Mass/Vol]33.0 g/dL 31 - 37 g/dLUniversity Hospitals Geauga Medical CenterV (RBC) [Entitic vol]86.3 fL80 - 100 fLMartin Memorial Hospital Monocytes/100 WBC (Bld)7 %5 - 9 %[facility] HospitalPlatelet distribution width (Bld) [Ratio]15.5 %High12.1 - 15.2 %[facility] HealthPlatelets (Bld) [#/Vol]240 10*3/uL [facility] HealthRBC (Bld) [#/Vol]4.95 10*6/uL4.5 - 5.9 m/uLMartin Memorial HospitalSegmented neutrophils/100 WBC (Bld)78 %High39 - 75 %[facility] Memorial HospitalSegs Absolute6.30Martin Memorial HospitalWBC (Bld) [#/Vol]8.1 10*3/uLBellin Health's Bellin Memorial HospitalCBC with Auto Differentialon [id number] Eos #0.20Martin Memorial HospitalAbsolute Lymph #1.00Martin Memorial HospitalAbsolute [place] #0.60[facility] HospitalBasophils (Bld) [#/Vol]0.00 10*3/uLMartin Memorial HospitalBasophils/100 WBC (Bld)0 %0 - 2 %[facility] HospitalDifferential TypeYESMerc HealthEosinophils/100 WBC (Bld)2 %0 - 5 %[facility] HospitalHematocrit (Bld) [Volume fraction]42.8 %41 - 53 %[facility] HospitalHemoglobin.gastrointestinal spec 1 Ql (Stl) 14.1 g/dL13.5 - 17.5 g/dLMartin Memorial HospitalInterpretation and review of laboratory resultsAbnormalMartin Memorial HospitalLymphocytes/100 WBC (Bld)13 %13 - 44 %[facility]aug[facility] Medical CenterH (RBC) [Entitic mass]28.5 pg26 - 34 pgUniversity Hospitals Geauga Medical CenterHC (RBC) [Mass/Vol]33.0 g/dL 31 - 37 g/dLUniversity Hospitals Geauga Medical CenterV (RBC) [Entitic vol]86.3 fL80 - 100 fLMartin Memorial Hospital Monocytes/100 WBC (Bld)7 %5 - 9 %[facility] HealthPlatelet distribution width (Bld) [Ratio]15.5 %High12.1 - 15.2 %[facility] HealthPlatelets (Bld) [#/Vol]240 10*3/uL [facility] HealthRBC (Bld) [#/Vol]4.95 10*6/uL4.5 - 5.9 m/uLMercy HealthSegmented neutrophils/100 WBC (Bld)78 %High39 - 75 %[facility] HealthSegs Absolute6.30Mercy HealthWBC (Bld) [#/Vol]8.1 10*3/uLMercy HealthMercy HealthCalciumon 03-17-2022 Calcium [Mass/Vol]9.4 mg/dL8.6 - 10.4 mg/dLMccullough-Hyde Memorial Hospital HealthComprehensive Metabolic Panelon [id number] [Mass/Vol]3.8 g/dL3.5 - 5.2 g/dLUniversity Hospitals Health Systemcy HealthALP (Bld) [Catalytic activity/Vol]110 U/L40 - 129 [...] [Mass fraction]7.0 g/dL6.4 - 8.3 g/dLMercy HealthGFR Whuwkbqx57 mL/minLow>60Mercy HealthGFR Non- Wlgsqpls42 mL/minLow>60Mercy HealthGFR/1.73 sq M.predicted MDRD (S/P/Bld) [Vol rate/Area][facility] HospitalComment on above:Average GFR for 50-59 years old: 93 mL/min/1.73sq m Chronic Kidney Disease: <60 mL/min/1.73sq m Kidney failure: <15 mL/min/1.73sq m eGFR calculated using average adult body mass. Additional eGFR calculator available at: http://[email or web address]/multiple_crcl_2012.htm Glucose [Mass/Vol]204 mg/fRAflz23 - 99 mg/dLMercy HealthInterpretation and review of [...] [Mass fraction]7.0 g/dL6.4 - 8.3 g/dLMercy HealthGFR Ugrpwtzh70 mL/minLow>60[facility] HealthGFR Non- Jhdycvpw44 mL/minLow >60Mer[facility] HealthGFR/1.73 sq M.predicted MDRD (S/P/Bld) [Vol rate/Area][facility] HospitalComment on above:Average GFR for 50-59 years old: 93 mL/min/1.73sq m Chronic Kidney Disease: <60 mL/min/1.73sq m Kidney failure: <15 mL/min/1.73sq m eGFR calculated using average adult body mass. Additional eGFR calculator available at: http://www.[employer]/multiple_crcl_2012.htm Glucose [Mass/Vol]204 mg/jYOtja10 - 99 mg/dLMccullough-Hyde Memorial Hospital HealthInterpretation and review of laboratory resultsAbnormalMccullough-[facility] HealthPotassium [Moles/Vol]5.3 mmol/L 3.7 - 5.3 mmol/LMercy HealthSodium [Moles/Vol]136 mmol/L135 - 144 mmol/LMercy HealthUrea nitrogen (BldV) [Mass/Vol]33 mg/dLHigh6 - 20 mg/dLMccullough-Hyde [facility] Hospital HealthUrea nitrogen/Creatinine (Bld) [Mass ratio]13[facility] HospitalElectrolyte Panelon [id number] gap [Moles/Vol]13 mmol/L9 - 17 mmol/LMercy HealthChloride [Moles/Vol]100 mmol/L98 - 107 mmol/LMercy HealthCO2 [Moles/Vol]23 mmol/L20 - 31 mmol/LMercy HealthPotassium [Moles/Vol]5.3 mmol/L3.7 - 5.3 mmol/LMercy Health Sodium [Moles/Vol]136 mmol/L135 - 144 mmol/LMercy HealthMagnesiumon 03-17-2022 Magnesium [Mass/Vol]1.9 mg/dL1.6 - 2.6 mg/dLMartin Memorial HospitalNo Panel Informationon [id number] HealthMerNerd Attack HealthPatient Fasting?on [id number] Fasting? yes[facility] HealthPatient Fasting?yes[facility] HealthTSHon [id number] Qn4.78 m[IU]/LMercy HealthXR CHEST (2 VW)on 03-17-2022 No acute change. MHPN RIS CONSOLIDATEDEXAM: XR CHEST (2 VW) HISTORY: Reason for exam:->shortness of breath. COMPARISON: 09/28/2019. TECHNIQUE: Two views chest, three images. FINDINGS: Heart size upper normal, stable. The lungs are clear. No evidence of metastatic disease. [facility] Cornelius Amos Jr., MD - 03/17/2022 EXAM: XR CHEST (2 VW) HISTORY: Reason for exam:->shortness of breath. COMPARISON: 09/28/2019. TECHNIQUE: Two views chest, three images. FINDINGS: Heart size upper normal, stable. The lungs are clear. No evidence of metastatic disease. IMPRESSION: No acute change. Infogram Phone: radiology Study observation (narrative)Infogram Phone: XR CHEST (2 VW)Ordered By: Cornelius Mcmullen on 03-17-2022 Infogram Phone: Hemoglobin and Hematocriton [phone] (Bld) [Volume fraction]42.8 %41 - 53 %[place]_Hemoglobin.gastrointestinal spec 1 Ql (Stl)14.3 g/dL13.5 - 17.5 g/dLMercy HealthMercy HealthMagnesiumon 01-16-2022 Magnesium [Mass/Vol]1.9 mg/dL1.6 - 2.6 mg/dLMercy HealthNo Panel Informationon [id number] HealthProtein / creatinine ratio, urineon 08-93-0356Dbfoelfsje, Ur58.8 mg/dL39.0 - 259.0 mg/dLMerNerd Attack HealthInterpretation and review of laboratory resultsAbnormalMercy HealthProtein (U) [Mass/Vol]780 mg/dLMercy HealthComment on above:No normal range established.Urine Total Protein Creatinine Ratio13.27HighMercy HealthMercy HealthRenal Function Panelon 35-12-2322Oebtdxe [Mass/Vol]4 g/dL3.5 - 5.2 g/dLMercy HealthAnion gap [Moles/Vol]12 mmol/L9 - 17 mmol/LMercy HealthCalcium [Mass/Vol]9.5 mg/dL8.6 - 10.4 mg/dLMercy HealthChloride [Moles/Vol]100 mmol/L98 - 107 mmol/LMercy Health CO2 [Moles/Vol]25 mmol/L20 - 31 mmol/LMercy HealthCreatinine [Mass/Vol]2.61 mg/dLHigh0.70 - 1.20 mg/dLMercy HealthGFR Xhcioaqo23 mL/minLow>60Mercy HealthGFR Non- Nnpgqwjl06 mL/minLow>60Mercy HealthGFR/1.73 sq M.predicted MDRD (S/P/Bld) [Vol rate/Area][facility] HospitalComment on above:Average GFR for 50- 59 years old: 93 mL/min/1.73sq m Chronic Kidney Disease: <60 mL/min/1.73sq m Kidney failure: <15 mL/min/1.73sq m eGFR calculated using average adult body mass. Additional eGFR calculator available at: http://www.MoveEZ/multiple_crcl_2011.htm Glucose [Mass/Vol]163 mg/lDQnjh77 - 99 mg/dLMccullough-Hyde [facility] HealthInterpretation and review of laboratory resultsAbnormalMer HealthPhosphate [Mass/Vol]4.4 mg/dL2.5 - 4.5 mg/dLMercy HealthPotassium [Moles/Vol]4.5 mmol/L3.7 - 5.3 mmol/LMercy HealthSodium [Moles/Vol]137 mmol/L135 - 144 mmol/LMercy HealthUrea nitrogen (BldV) [Mass/Vol]33 mg/dLHigh6 - 20 mg/dLMercy HealthUrea nitrogen/Creatinine (Bld) [Mass ratio]13Martin [facility] HospitalBasic Metabolic Panelon [id number] gap [Moles/Vol]13 mmol/L9 - 17 mmol/LMercy HealthCalcium [Mass/Vol]9.3 mg/dL8.6 - 10.4 mg/dLMercy HealthChloride [Moles/Vol]97 mmol/LLow98 - 107 mmol/LMercy HealthCO2 [Moles/Vol]23 mmol/L20 - 31 mmol/LMercy HealthCreatinine [Mass/Vol] 2.39 mg/dLHigh0.70 - 1.20 mg/dLMercy HealthGFR Upcsoung57 mL/minLow>60 [facility] HealthGFR Non- Hpvultmp38 mL/minLow>60Mer HealthGFR/1.73 sq M.predicted MDRD (S/P/Bld) [Vol rate/Area][facility] HospitalComment on above:Average GFR for 50-59 years old: 93 mL/min/1.73sq m Chronic Kidney Disease: <60 mL/min/1.73sq m Kidney failure: <15 mL/min/1.73sq m eGFR calculated using average adult body mass. Additional eGFR calculator available at: http://www.MoveEZ/multiple_crcl_2012.htm GFR/1.73 sq M.predicted MDRD (S/P/Bld) [Vol rate/Area]NOT REPORTEDMartin Memorial Hospital Glucose [Mass/Vol]199 mg/kAObow54 - 99 mg/dLMartin Memorial HospitalInterpretation and review of laboratory resultsAbnormalMartin Memorial HospitalPotassium [Moles/Vol]4.7 mmol/L 3.7 - 5.3 mmol/LMerc HealthSodium [Moles/Vol]133 mmol/ZVqh694 - 144 mmol/LMercy HealthUrea nitrogen (BldV) [Mass/Vol]23 mg/dLHigh6 - 20 mg/dLMartin Memorial HospitalUrea nitrogen/Creatinine (Bld) [Mass ratio]10[facility] HospitalCreatinine, Random UrineOrdered By: Gracie Miller on 76-16-9962Hgsrpxufex, Ur166.4 mg/dL 39.0 - 259.0 mg/dLUniversity Hospitals Health SystemDetectent Work Phone: [facility] SystemDetectent Work Phone: Hemoglobin and Hematocrit, BloodOrdered By: Gracie Miller on 54-48-0960Xziwtdzsvk (Bld) [Volume fraction]43.1 %41 - 53 %[facility] BonzerDarg Work Phone: Hemoglobin.gastrointestinal spec 1 Ql (Stl)14.6 g/dL 13.5 - 17.5 g/dLUniversity Hospitals Health SystemDetectent Work Phone: [facility] SystemDetectent Work Phone: MagnesiumOrdered By: Gracie Miller on 07-25-2021 Magnesium [Mass/Vol]2.0 mg/dL1.6 - 2.6 mg/dLInfogram Phone: No Panel InformationOrdered By: Gracie Miller on 25-26-9908Jjnwk Health Work Phone: pTH, IntactOrdered By: Gracie Miller on 07-25-2021 Pth Jvqcod65.41 pg/mL15.0 - 65.0 pg/mLUniversity Hospitals Health SystemSigma Pharmaceuticals Phone: comment on above:SAMPLES FROM PATIENTS ROUTINELY RECEIVING HIGH DOSE BIOTIN THERAPY MAY SHOW FALSELY DEPRESSED RESULTS. ADDITIONAL INFORMATION MAY BE REQUIRED FOR DIAGNOSIS. Infogram Phone: renal Function PanelOrdered By: Gracie Miller on 38-22-2836Newbhmb [Mass/Vol]3.4 g/dLLow3.5 - 5.2 g/dLUniversity Hospitals Health SystemSigma Pharmaceuticals Phone: anion gap [Moles/Vol]10 mmol/L9 - 17 mmol/LMAuraSense Therapeutics Phone: calcium [Mass/Vol]9.3 mg/dL8.6 - 10.4 mg/dLInfogram Phone: chloride [Moles/Vol]101 mmol/L98 - 107 mmol/LMercy [employer] Phone: cO2 [Moles/Vol]25 mmol/L20 - 31 mmol/LMVitalea Sciencey [employer] Phone: creatinine [Mass/Vol]2.35 mg/dLHigh0.70 - 1.20 mg/dL Infogram Phone: GFR Zqrggffy71 mL/minLow>60MerSigma Pharmaceuticals Phone: GFR Non- Zaovacqx28 mL/minLow>60MerSigma Pharmaceuticals Phone: GFR/1.73 sq M.predicted MDRD (S/P/Bld) [Vol rate/Area] [facility] HospitalInternet America, Inc. Phone: comment on above:Average GFR for 50-59 years old: 93 mL/min/1.73sq m Chronic Kidney Disease: <60 mL/min/1.73sq m Kidney failure: <15 mL/min/1.73sq m eGFR calculated using average adult body mass. Additional eGFR calculator available at: http://www.MoveEZ/multiple_crcl_2012.htm GFR/1.73 sq M.predicted MDRD (S/P/Bld) [Vol rate/Area]NOT REPORTEDUniversity Hospitals Health SystemSigma Pharmaceuticals Phone: Glucose [Mass/Vol]152 mg/zYLgye17 - 99 mg/dLUniversity Hospitals Health SystemSigma Pharmaceuticals Phone: Interpretation and review of laboratory results AbnormalUniversity Hospitals Health SystemSigma Pharmaceuticals Phone: phosphate [Mass/Vol]4.2 mg/dL2.5 - 4.5 mg/dLUniversity Hospitals Health SystemSigma Pharmaceuticals Phone: potassium [Moles/Vol]4.7 mmol/L3.7 - 5.3 mmol/LMkettering health greene memorial [employer] Phone: sodium [Moles/Vol]136 mmol/L135 - 144 mmol/LMmer[address] health [address] rita's medical centerInternet America, Inc. Phone: Urea nitrogen (BldV) [Mass/Vol]27 mg/dLHigh6 - 20 mg/dLUniversity Hospitals Health SystemSigma Pharmaceuticals Phone: Urea nitrogen/Creatinine (Bld) [Mass ratio]11[facility] SystemSigma Pharmaceuticals Phone: cBC Auto DifferentialOrdered By: Trevor Serna on 88-99-7636Sqqbzkij Eos #0.20[facility] SystemSigma Pharmaceuticals Phone: absolute Immature GranulocyteNOT REPORTEDUniversity Hospitals Health SystemSigma Pharmaceuticals Phone: absolute Lymph #1.30[facility] SystemSigma Pharmaceuticals Phone: absolute [place] #0.60[facility] SystemSigma Pharmaceuticals Phone: basophils (Bld) [#/Vol]0.00 10*3/uLUniversity Hospitals Health SystemSigma Pharmaceuticals Phone: basophils/100 WBC (Bld)0 %0 - 2 %Infogram Phone: differential TypeYESMercInternet America, Inc. Phone: eosinophils/100 WBC (Bld)2 %0 - 5 %Infogram Phone: Hematocrit (Bld) [Volume fraction]43.0 %41 - 53 %Infogram Phone: Hemoglobin.gastrointestinal spec 1 Ql (Stl)14.4 g/dL 13.5 - 17.5 g/dLUniversity Hospitals Health SystemSigma Pharmaceuticals Phone: Immature GranulocytesNOT REPORTED0 %Infogram Phone: Interpretation and review of laboratory results AbnormalUniversity Hospitals Health SystemSigma Pharmaceuticals Phone: lymphocytes/100 WBC (Bld)15 %13 - 44 %Infogram Phone: MCH (RBC) [Entitic mass]28.9 pg26 - 34 pgUniversity Hospitals Health SystemSigma Pharmaceuticals Phone: MCHC (RBC) [Mass/Vol]33.4 g/dL31 - 37 g/dLUniversity Hospitals Health SystemSigma Pharmaceuticals Phone: MCV (RBC) [Entitic vol]86.5 fL80 - 100 fLUniversity Hospitals Health SystemSigma Pharmaceuticals Phone: Monocytes/100 WBC (Bld)6 %5 - 9 %Infogram Phone: NRBC AutomatedNOT REPORTEDper 100 WBCInfogram Phone: platelet distribution width (Bld) [Ratio]14.4 %12.1 - 15.2 %Infogram Phone: platelet EstimateNOT REPORTEDMerDetectent Work Phone: platelet mean volume (Bld) [Entitic vol]NOT REPORTED 6.0 - 12.0 fLSemblee_ Work Phone: Platelets (Bld) [#/Vol]257 10*3/uLSemblee_ Work Phone: [phone] (Bld) [#/Vol]4.98 10*6/uL4.5 - 5.9 m/uLUniversity Hospitals Health SystemDetectent Work Phone: RBC (Bld) [#/Vol]NOT REPORTEDUniversity Hospitals Health SystemDetectent Work Phone: Eegmented neutrophils/100 WBC (Bld)77 %High39 - 75 % Infogram Phone: Qegs Absolute6.70HighUniversity Hospitals Health SystemSigma Pharmaceuticals Phone: WBC (Bld) [#/Vol]8.8 10*3/[employer]_ Work Phone: WBC (Bld) [#/Vol]NOT REPORTEDUniversity Hospitals Health SystemSigma Pharmaceuticals Phone: [facility] SystemSigma Pharmaceuticals Phone: comprehensive Metabolic PanelOrdered By: Trevor Kumari on [phone] [Mass/Vol]3.7 g/dL3.5 - 5.2 g/dLUniversity Hospitals Health SystemSigma Pharmaceuticals Phone: albumin/Globulin RatioNOT REPORTEDUniversity Hospitals Health SystemSigma Pharmaceuticals Phone: aLP (Bld) [Catalytic activity/Vol]100 U/L40 - 129 U/L [facility] HospitalBedford Energy Work Phone: aLT [Catalytic activity/Vol]15 U/L5 - 41 U/LMAuraSense Therapeutics Phone: anion gap [Moles/Vol]9 mmol/L9 - 17 mmol/LMPeek Kids Work Phone: aST [Catalytic activity/Vol]17 U/L<40MerSigma Pharmaceuticals Phone: bilirubin [Mass/Vol]0.47 mg/dL0.30 - 1.20 mg/dLUniversity Hospitals Health SystemSigma Pharmaceuticals Phone: calcium [Mass/Vol]9.2 mg/dL8.6 - 10.4 mg/dLUniversity Hospitals Health SystemSigma Pharmaceuticals Phone: chloride [Moles/Vol]100 mmol/L98 - 107 mmol/LMmer[address]. rita's medical centerBedford Energy Work Phone: TO2 [Moles/Vol]25 mmol/L20 - 31 mmol/LMmercy health st. rita's medical centery [employer]agenesis Phone: Oreatinine [Mass/Vol]2.04 mg/dLHigh0.70 - 1.20 mg/dL [facility] HospitalInternet America, Inc. Phone: Free PSA/Total PSA [Mass fraction]7.2 g/dL6.4 - 8.3 g/dLUniversity Hospitals Health SystemSigma Pharmaceuticals Phone: GFR Uffibmbs79 mL/minLow>60[facility] SystemSigma Pharmaceuticals Phone: GFR Non- Yiaefswn43 mL/minLow>60[facility] SystemSigma Pharmaceuticals Phone: GFR/1.73 sq M.predicted MDRD (S/P/Bld) [Vol rate/Area] [facility] HospitalInternet America, Inc. Phone: comment on above:Average GFR for 50-59 years old: 93 mL/min/1.73sq m Chronic Kidney Disease: <60 mL/min/1.73sq m Kidney failure: <15 mL/min/1.73sq m eGFR calculated using average adult body mass. Additional eGFR calculator available at: http://www.Langhar.My-Apps/multiple_crcl_2012.htm GFR/1.73 sq M.predicted MDRD (S/P/Bld) [Vol rate/Area]NOT REPORTEDUniversity Hospitals Health SystemSigma Pharmaceuticals Phone: Glucose [Mass/Vol]137 mg/yRKizq01 - 99 mg/dLUniversity Hospitals Health SystemSigma Pharmaceuticals Phone: Interpretation and review of laboratory results AbnormalUniversity Hospitals Health SystemSigma Pharmaceuticals Phone: potassium [Moles/Vol]4.7 mmol/L3.7 - 5.3 mmol/LMmercy health st. rita's medical centery Phagenesis Phone: sodium [Moles/Vol]134 mmol/ZUti180 - 144 mmol/LMmer[address] health [address] rita's medical centery Phagenesis Phone: Urea nitrogen (BldV) [Mass/Vol]27 mg/dLHigh6 - 20 mg/dLUniversity Hospitals Health SystemSigma Pharmaceuticals Phone: Urea nitrogen/Creatinine (Bld) [Mass ratio]13[facility] SystemSigma Pharmaceuticals Phone: [facility] SystemSigma Pharmaceuticals Phone: albuminon 12-05-9451Engicly [Mass/Vol]3.8 g/dL3.5 - 5.2 g/dLUniversity Hospitals Health SystemSigma Pharmaceuticals Phone: bUN & Creatinineon 16-35-6263Nfclqszsqx [Mass/Vol]1.99 mg/dLHigh0.70 - 1.20 mg/dLMccullough-[facility] [employer] Phone: GFR Hhodgwgk76 mL/minLow>60[facility] SystemSigma Pharmaceuticals Phone: GFR Non- Efddafxg84 mL/minLow>60[facility] SystemSigma Pharmaceuticals Phone: GFR/1.73 sq M predicted among non-blacks MDRD (S/P/Bld) [Vol rate/Area][facility] HospitalInternet America, Inc. Phone: comment on above:Average GFR for 50-59 years old: 93 mL/min/1.73sq m Chronic Kidney Disease: <60 mL/min/1.73sq m Kidney failure: <15 mL/min/1.73sq m eGFR calculated using average adult body mass. Additional eGFR calculator available at: http://www.Langhar.My-Apps/multiple_crcl_2012.htm GFR/1.73 sq M predicted among non-blacks MDRD (S/P/Bld) [Vol rate/Area]NOT REPORTEDUniversity Hospitals Health SystemSigma Pharmaceuticals Phone: Interpretation and review of laboratory results AbnormalUniversity Hospitals Health SystemSigma Pharmaceuticals Phone: Urea nitrogen [Mass/Vol]26 mg/dLHigh6 - 20 mg/dLUniversity Hospitals Health SystemSigma Pharmaceuticals Phone: basic Metabolic Panelon 96-64-3371Wpszk gap [Moles/Vol]9 mmol/L9 - 17 mmol/LMmercy health st. rita's medical centerInternet America, Inc. Phone: bun/Cre Ywnvx02HpdtySigma Pharmaceuticals Phone: calcium [Mass/Vol]8.7 mg/dL8.6 - 10.4 mg/dLUniversity Hospitals Health SystemSigma Pharmaceuticals Phone: chloride [Moles/Vol]101 mmol/L98 - 107 mmol/LMmer[address] rita's medical centery [employer] Phone: cO2 [Moles/Vol]25 mmol/L20 - 31 mmol/LMAuraSense Therapeutics Phone: creatinine [Mass/Vol]1.99 mg/dLHigh0.70 - 1.20 mg/dL [facility] HospitalInternet America, Inc. Phone: GFR Oovwgyxn38 mL/minLow>60[facility] SystemSigma Pharmaceuticals Phone: GFR Non- Fqwrawwn87 mL/minLow>60[facility] SystemSigma Pharmaceuticals Phone: GFR/1.73 sq M predicted among non-blacks MDRD (S/P/Bld) [Vol rate/Area]NOT REPORTEDUniversity Hospitals Health SystemSigma Pharmaceuticals Phone: GFR/1.73 sq M predicted among non-blacks MDRD (S/P/Bld) [Vol rate/Area]Infogram Phone: comment on above:Average GFR for 50-59 years old: 93 mL/min/1.73sq m Chronic Kidney Disease: <60 mL/min/1.73sq m Kidney failure: <15 mL/min/1.73sq m eGFR calculated using average adult body mass. Additional eGFR calculator available at: http://www.MoveEZ/multiple_crcl_2012.htm Glucose [Mass/Vol]200 mg/sYVurw61 - 99 mg/dLMccullough-[facility] [employer] Phone: Interpretation and review of laboratory results AbnormalMccullough-Hyde Memorial Hospital [employer] Phone: Ootassium [Moles/Vol]4.5 mmol/L3.7 - 5.3 mmol/LMercy BonzerDarg Work Phone: Oodium [Moles/Vol]135 mmol/L135 - 144 mmol/LMercy BonzerDarg Work Phone: Urea nitrogen [Mass/Vol]25 mg/dLHigh6 - 20 mg/dLMccullough-Hy[facility] [employer] Phone: Dalciumon 61-54-1471Bwysifw [Mass/Vol]8.7 mg/dL8.6 - 10.4 mg/dLMccullough-[facility] [employer] Phone: cortisol Totalon 09-47-3427Gucazxou25.6 ug/dL2.7 - 18.4 ug/dLMccullough-[facility] [employer] Phone: comment on above: Cortisol Reference Range: AM 6.0-18.4 PM 2.7-10.5 Cortisol Collection Rxba4Tckjk [employer] Phone: Sreatinine, Random Urineon 96-37-8431Ftolpspgwy, Ur 76.6 mg/dL39.0 - 259.0 mg/dLMccullough-Hy[facility] [employer] Phone: Slectrolyte Panelon 66-00-0788Sbxfy gap [Moles/Vol]10 mmol/L9 - 17 mmol/LMercy BonzerDarg Work Phone: Yhloride [Moles/Vol]101 mmol/L98 - 107 mmol/LMercy [employer] Phone: TO2 [Moles/Vol]24 mmol/L20 - 31 mmol/LMercy BonzerDarg Work Phone: Potassium [Moles/Vol]4.5 mmol/L3.7 - 5.3 mmol/LMmercy health st[facility] rita's medical centery Phagenesis Phone: sodium [Moles/Vol]135 mmol/L135 - 144 mmol/LMmer[facility] [address] rita's medical centery Ph[employer] Phone: Hemoglobin A1Con 68-70-8096Nnxibdy [Mass/Vol]278 mg/dL [facility] HospitalInternet America, Inc. Phone: comment on above:The ADA and AACC recommend providing the estimated average glucose result to permit better patient understanding of their HBA1c result. HbA1c (Bld) [Mass fraction]11.3 %High4.0 - 6.0 %Infogram Phone: Interpretation and review of laboratory results AbnormalUniversity Hospitals Health SystemSigma Pharmaceuticals Phone: Hemoglobin and Hematocrit, Bloodon 01-28-2021 Hematocrit (Bld) [Volume fraction]44.8 %41 - 53 %[facility] HospitalInternet America, Inc. Phone: Hemoglobin (Bld) [Mass/Vol]15.1 g/dL13.5 - 17.5 g/dL [facility] HospitalInternet America, Inc. Phone: Magnesiumon 83-03-9281Wbbosntpe [Mass/Vol]1.7 mg/dL1.6 - 2.6 mg/dLUniversity Hospitals Health SystemSigma Pharmaceuticals Phone: pTH, Intacton 20-14-0830Iajeuccvgdjisg and review of laboratory resultsAbnormalUniversity Hospitals Health SystemSigma Pharmaceuticals Phone: pth Nvihqx89.47 pg/qLZsov74.0 - 65.0 pg/mLUniversity Hospitals Health SystemSigma Pharmaceuticals Phone: comment on above:SAMPLES FROM PATIENTS ROUTINELY RECEIVING HIGH DOSE BIOTIN THERAPY MAY SHOW FALSELY DEPRESSED RESULTS. ADDITIONAL INFORMATION MAY BE REQUIRED FOR DIAGNOSIS. Phosphoruson 23-69-2337Wcguhjbbx [Mass/Vol]3.9 mg/dL2.5 - 4.5 mg/dLUniversity Hospitals Health SystemSigma Pharmaceuticals Phone: protein, urine, randomon 41-88-9973Gqxzahg (U) [Mass/Vol]847 mg/dLUniversity Hospitals Health SystemSigma Pharmaceuticals Phone: comment on above:No normal range established.Vitamin D 25 Hydroxyon 13-63-1431Mvdgvirznbrgln and review of laboratory resultsAbnormal [facility] HospitalInternet America, Inc. Phone: Vit D, 25-Hydroxy<5.0Low30.0 - 100.0 ng/mLUniversity Hospitals Health SystemSigma Pharmaceuticals Phone: comment on above: Reference Range: Vitamin D status Range Deficiency <20 ng/mL Mild Deficiency 20-30 ng/mL Sufficiency 30-100 ng/mL Toxicity >100 ng/mL Comprehensive Metabolic Panelon 93-07-1647Zwyeawp [Mass/Vol]3.9 g/dL3.5 - 5.2 g/dLMercy Health- [place], KYAlbumin/Globulin [Mass ratio]NOT REPORTEDMercy Health- [place], KYALP [Catalytic activity/Vol]120 U/L40 - 129 U/LMercy Health- [place], KYALT [Catalytic activity/Vol]16 U/L5 - 41 U/LMercy Health- [place], KYAnion gap [Moles/Vol]11 mmol/L9 - 17 mmol/LMercy Health- [place], KYAST [Catalytic activity/Vol]14 U/L<40[facility]- [place], KYBilirubin Ql (U)0.42 mg/dL0.3 - 1.2 mg/dLMercy Health- [place], KYBun/Cre Pswhk91Qhkjp Health- [place], KYCalcium [Mass/Vol] 9.2 mg/dL8.6 - 10.4 mg/dLMercy Health- [place], KYChloride [Moles/Vol]96 mmol/LLow98 - 107 mmol/LMercy Health- [place], KYCO2 [Moles/Vol]26 mmol/L20 - 31 mmol/LMercy Health- [place], KYCreatinine [Mass/Vol]1.99 mg/dLHigh0.7 - 1.2 mg/dLMercy Health- [place], KYGFR Fnseeoxx61 mL/minLow>60[facility]- [place], KYGFR Non- Lxcnaazv33 mL/minLow>60[facility]- [place], KYGFR/1.73 sq M predicted among non- blacks MDRD (S/P/Bld) [Vol rate/Area][facility], ALComment on above: Average GFR for 50-59 years old: 93 mL/min/1.73sq m Chronic Kidney Disease: <60 mL/min/1.73sq m Kidney failure: <15 mL/min/1.73sq m eGFR calculated using average adult body mass. Additional eGFR calculator available at: http://www.MoveEZ/multiple_crcl_2012.htm GFR/1.73 sq M predicted among non-blacks MDRD (S/P/Bld) [Vol rate/Area]NOT REPORTED[facility], ALGlucose [Mass/Vol]338 mg/mIWtnt32 - 99 mg/dLMetroHealth [facility], ALInterpretation and review of laboratory resultsAbnoProvidence Hospital, KYPotassium [Moles/Vol]5.1 mmol/L3.7 - 5.3 mmol/LMKettering [facility] Hospital, KYProtein [Mass/Vol]6.7 g/dL6.4 - 8.3 g/dLMet[facility]Health [facility], KYSodium [Moles/Vol] 133 mmol/GEnf965 - 144 mmol/LMKettering Memorial Hospital, KYUrea nitrogen [Mass/Vol]23 mg/dLHigh6 - 20 mg/dLMet[facility]Health [facility], ALHemoglobin A1Con 65-59-6315Ajwvyig [Mass/Vol]306 mg/dLMetroHealth [facility], MALINIComment on above:The ADA and AACC recommend providing the estimated average glucose result to permit better patient understanding of their HBA1c result. HbA1c (Bld) [Mass fraction]12.3 %High4 - 6 %[facility], KYInterpretation and review of laboratory resultsAbnoProvidence Hospital, ALLipid Panelon 33-91-4237Eutijcilawj [Mass/Vol]162 mg/dL<200[facility] ALComment on above: Cholesterol Guidelines: <200 Desirable 200-240 Borderline >240 Undesirable Cholesterol in HDL [Mass/Vol]32 mg/dLLow>40[facility], ALComment on above: HDL Guidelines: <40 Undesirable 40-59 Borderline >59 Desirable Cholesterol in LDL [Mass/Vol]73 mg/dL0 - 130 mg/dLMet[facility]Health [facility], ALComment on above: LDL Guidelines: <100 Desirable 100-129 Near to/above Desirable 130-159 Borderline >159 Undesirable Direct (measured) LDL and calculated LDL are not interchangeable tests. Cholesterol in VLDL [Mass/Vol]NOT REPORTEDHigh1 - 30 mg/dLMet[facility]Health [facility], [place] Cholesterol.total/Cholesterol in HDL [Mass ratio]5.1 {ratio}High<5[facility], ALInterpretation and review of laboratory resultsAbnoProvidence Hospital, ALTriglyceride [Mass/Vol]283 mg/dLHigh<150[facility], ALComment on above: Triglyceride Guidelines: <150 Desirable 150-199 Borderline 200-499 High >499 Very high Based on AHA Guidelines for fasting triglyceride, August 2012. Patient Fasting?on 70-32-3219Jyxhcvv Fasting?yesMet[facility], ALCB Auto Differentialon 40-05-3574Yqnbdzyja (Bld) [#/Vol]0.00 10*3/[facility], [place] Basophils/100 WBC (Bld)0 %0 - 2 %[facility], ALDifferential TypeYESMKettering Memorial Hospital, MALINIEosinophils (Bld) [#/Vol]0.20 10*3/[facility], [place] Eosinophils/100 WBC (Bld)2 %0 - 5 %[facility], ALErythrocyte distribution width (RBC) [Ratio]13.9 %12.1 - 15.2 %[facility], ALHematocrit (Bld) [Volume fraction]46.8 %41 - 53 %[facility], ALHemoglobin (Bld) [Mass/Vol] 15.8 g/dL13.5 - 17.5 g/dLMetroHealth [facility], ALInterpretation and review of laboratory resultsAbnoProvidence Hospital, ALLymphocytes (Bld) [#/Vol]1.30 10*3/[facility], KYLymphocytes/100 WBC (Bld)15 %13 - 44 %[facility], ALMCH (RBC) [Entitic mass]29.2 pg26 - 34 pgMccullough-Hyde Memorial Hospital Health- [place], KYMCHC (RBC) [Mass/Vol]33.7 g/dL31 - 37 g/dLMccullough-Hyde [facility] Hospital Health- [place], KYMCV (RBC) [Entitic vol]86.7 fL80 - 100 fLMccullough-Hyde Memorial Hospital Health- [place], KYMonocytes (Bld) [#/Vol]0.50 10*3/uLMccullough-Hyde Memorial Hospital Health- [place], KYMonocytes/100 WBC (Bld)6 %5 - 9 %[facility]- [place], KYPlatelet mean volume (Bld) [Entitic vol]NOT REPORTED6 - 12 fLMccullough-Hyde Memorial Hospital Health- [place], KYPlatelets (Bld) [#/Vol]252 10*3/uLMccullough-Hyde Memorial Hospital Health- [place], KYPlatelets (Bld) [#/Vol]NOT REPORTED [facility]- [place], KYRBC (Bld) [#/Vol]5.41 10*6/uL4.5 - 5.9 m/uLMccullough-Hyde Memorial Hospital Health- [place], KYRBC morphology finding Nom (Bld)NOT REPORTEDMccullough-Hyde Memorial Hospital Health- [place], KYSegmented neutrophils/100 WBC (Bld)77 %High39 - 75 %[facility]- [place], KYSegs Absolute6.30 [facility]- [place], KYWBC (Bld) [#/Vol]NOT REPORTEDper 100 WBCMccullough-Hyde Memorial Hospital Health- [place], [place] WBC (Bld) [#/Vol]8.3 10*3/uLMccullough-Hyde Memorial Hospital Health- [place], KYWBC MorphologyNOT REPORTEDMccullough-Hyde [facility] Hospital Health- [place], KYComprehensive Metabolic Panelon [id number] [Mass/Vol]3.7 g/dL3.5 - 5.2 g/dLMccullough-Hyde [facility] Hospital Health- [place], KYAlbumin/Globulin [Mass ratio]NOT REPORTED [facility]- [place], KYALP [Catalytic activity/Vol]117 U/L40 - 129 U/LMercy Health- [place], KYALT [Catalytic activity/Vol]18 U/L5 - 41 U/LMercy Health- [place], KYAnion gap [Moles/Vol]9 mmol/L9 - 17 mmol/LMercy Health- [place], KYAST [Catalytic activity/Vol] 15 U/L<40[facility]- [place], KYBilirubin Ql (U)0.37 mg/dL0.3 - 1.2 mg/dLMet[facility]Health [facility], KYBun/Cre Qfepx35JpwqmMetroHealth [facility], KYCalcium [Mass/Vol]9.7 mg/dL8.6 - 10.4 mg/dLMetroHealth [facility], KYChloride [Moles/Vol]98 mmol/L98 - 107 mmol/L [facility], KYCO2 [Moles/Vol]26 mmol/L20 - 31 mmol/LMKettering Memorial Hospital, [place] Creatinine [Mass/Vol]1.99 mg/dLHigh0.7 - 1.2 mg/dLMet[facility]Health [facility], KYGFR Rkczqkac54 mL/minLow>60[facility], KYGFR Non- Fhjpalve67 mL/minLow>60[facility], KYGFR/1.73 sq M predicted among non-blacks MDRD (S/P/Bld) [Vol rate/Area][facility], KYComment on above:Average GFR for 50-59 years old: 93 mL/min/1.73sq m Chronic Kidney Disease: <60 mL/min/1.73sq m Kidney failure: <15 mL/min/1.73sq m eGFR calculated using average adult body mass. Additional eGFR calculator available at: http://www.MoveEZ/multiple_crcl_2012.htm GFR/1.73 sq M predicted among non-blacks MDRD (S/P/Bld) [Vol rate/Area]NOT REPORTEDMet[facility]Health [facility], KYGlucose [Mass/Vol]300 mg/qZGaqm99 - 99 mg/dLMetroHealth [facility], KYInterpretation and review of laboratory resultsAbnormalMetroHealth [facility], KYPotassium [Moles/Vol]4.5 mmol/L3.7 - 5.3 mmol/LMKettering Memorial Hospital, KYProtein [Mass/Vol]6.9 g/dL6.4 - 8.3 g/dLMet[facility]Health [facility], KYSodium [Moles/Vol] 133 mmol/CZyz723 - 144 mmol/LMKettering Memorial Hospital, KYUrea nitrogen [Mass/Vol]26 mg/dLHigh6 - 20 mg/dLMet[facility]Health [facility], KYOtheron [id number] granulocytes (Bld) [#/Vol]NOT REPORTEDMet[facility]Health [facility], KYCBC Auto Differentialon 07-10-2020 Basophils (Bld) [#/Vol]0.00 10*3/[facility] [place], KYBasophils/100 WBC (Bld)0 %0 - 2 %[facility], KYDifferential TypeYESMKettering Memorial Hospital, KYEosinophils (Bld) [#/Vol]0.20 10*3/[facility] [place], KYEosinophils/100 WBC (Bld)2 %0 - 5 % [facility], KYErythrocyte distribution width (RBC) [Ratio]14.5 %12.1 - 15.2 %[facility], KYHematocrit (Bld) [Volume fraction]46.9 %41 - 53 %[facility], KYHemoglobin (Bld) [Mass/Vol]15.8 g/dL13.5 - 17.5 g/dLMet[facility]Health [facility], KYInterpretation and review of laboratory resultsAbnormalMetroHealth [facility], KYLymphocytes (Bld) [#/Vol]1.20 10*3/[facility] [place], KYLymphocytes/100 WBC (Bld)14 %13 - 44 %[facility], KYMCH (RBC) [Entitic mass]29.3 pg26 - 34 pg [facility], KYMCHC (RBC) [Mass/Vol]33.7 g/dL31 - 37 g/dLMet[facility]Health [facility], KYMCV (RBC) [Entitic vol]86.9 fL80 - 100 [facility], KYMonocytes (Bld) [#/Vol]0.50 10*3/[facility], KYMonocytes/100 WBC (Bld)6 %5 - 9 %[facility], KYPlatelet mean volume (Bld) [Entitic vol]NOT REPORTED6 - 12 fLMetroHealth [facility] Heights Medical Center, KYPlatelets (Bld) [#/Vol]NOT REPORTED[facility], KYPlatelets (Bld) [#/Vol]242 10*3/uLMercy Health- [place], KYRBC (Bld) [#/Vol]5.40 10*6/uL4.5 - 5.9 m/uLMercy Health- [place], KYRBC morphology finding Nom (Bld)NOT REPORTEDMercy Health- [place], KYSegmented neutrophils/100 WBC (Bld)78 %High39 - 75 %[facility] [place], KYSegs Absolute6.50[facility] [place], KYWBC (Bld) [#/Vol]NOT REPORTEDper 100 WBCMercy Health- [place], KYWBC (Bld) [#/Vol]8.4 10*3/uLMercy Health- [place], KYWBC MorphologyNOT REPORTEDMercy Health- [place], KYComprehensive Metabolic Panelon [id number] [Mass/Vol]3.9 g/dL3.5 - 5.2 g/dLMercy Health- [place], [...] mg/dLHigh0.7 - 1.2 mg/dLMercy Health- [place], KYGFR Bvlxjahd63 mL/minLow>60 [facility] [place], KYGFR Non- Aqelgwut59 mL/minLow>60[facility] [place], [place] GFR/1.73 sq M predicted among non-blacks MDRD (S/P/Bld) [Vol rate/Area]NOT REPORTEDMet[facility]Health [facility], KYGFR/1.73 sq M predicted among non-blacks MDRD (S/P/Bld) [Vol rate/Area][facility], ALComment on above:Average GFR for 50-59 years old: 93 mL/min/1.73sq m Chronic Kidney Disease: <60 mL/min/1.73sq m Kidney failure: <15 mL/min/1.73sq m eGFR calculated using average adult body mass. Additional eGFR calculator available at: http://www.MoveEZ/multiple_crcl_2012.htm Glucose [Mass/Vol]267 mg/vSWwyl85 - 99 mg/dLMet[facility]Health [facility], ALInterpretation and review of laboratory resultsAbnormalMet[facility]Health [facility], KYPotassium [Moles/Vol]4.8 mmol/L3.7 - 5.3 mmol/LMKettering Memorial Hospital, KYProtein [Mass/Vol]7.1 g/dL6.4 - 8.3 g/dLMet[facility]Health [facility], KYSodium [Moles/Vol]135 mmol/L135 - 144 mmol/LMKettering Memorial Hospital, KYUrea nitrogen [Mass/Vol]22 mg/dLHigh6 - 20 mg/dLMet[facility]Health [facility], ALOtheron 95-91-2676Hgwcdysa granulocytes (Bld) [#/Vol]NOT REPORTED0 %[facility], ALAlbuminon 78-85-4993Lmgkdbf [Mass/Vol]3.9 g/dL3.5 - 5.2 g/dLMet[facility]Health [facility], ALBUN & Creatinineon 06-82-1608Rsqvwfjmbr [Mass/Vol]1.74 mg/dLHigh0.7 - 1.2 mg/dLMet[facility]Health [facility], KYGFR Yhzrdjen91 mL/minLow>60 [facility], KYGFR Non- Snqtuiwm99 mL/minLow>60[facility], [place] GFR/1.73 sq M predicted among non-blacks MDRD (S/P/Bld) [Vol rate/Area]NOT REPORTED[facility], ALGFR/1.73 sq M predicted among non-blacks MDRD (S/P/Bld) [Vol rate/Area][place], KYComment on above:Average GFR for 50-59 years old: 93 mL/min/1.73sq m Chronic Kidney Disease: <60 mL/min/1.73sq m Kidney failure: <15 mL/min/1.73sq m eGFR calculated using average adult body mass. Additional eGFR calculator available at: http://www.MoveEZ/multiple_crcl_2011.htm Interpretation and review of laboratory resultsAbnoProvidence Hospital, ALUrea nitrogen [Mass/Vol]26 mg/dLHigh6 - 20 mg/dLMet[facility]Health [facility], ALCBC Auto Differentialon 27-04-1029Gjlgysupy (Bld) [#/Vol]0.00 10*3/uLMetroHealth [facility], [place] Basophils/100 WBC (Bld)0 %0 - 2 %[place], KYDifferential TypeYESMKettering Memorial Hospital, ALEosinophils (Bld) [#/Vol]0.10 10*3/uLMetroHealth [facility], [place] Eosinophils/100 WBC (Bld)2 %0 - 5 %[place], KYErythrocyte distribution width (RBC) [Ratio]14.6 %12.1 - 15.2 %[place], KYHematocrit (Bld) [Volume fraction]47.8 %41 - 53 %[place], KYHemoglobin (Bld) [Mass/Vol] 15.5 g/dL13.5 - 17.5 g/dLEagle [place], KYInterpretation and review of laboratory resultsAbnoProvidence Hospital, ALLymphocytes (Bld) [#/Vol]0.90 10*3/uLLowMetroHealth [facility] Center, ALLymphocytes/100 WBC (Bld)13 %13 - 44 %[facility], ALMCH (RBC) [Entitic mass]28.6 pg26 - 34 pgMetroHealth [facility], ALMCHC (RBC) [Mass/Vol]32.5 g/dL31 - 37 g/dLMercy Health- [place], KYMCV (RBC) [Entitic vol] 88.0 fL80 - 100 fLMccullough-Hyde [facility]- [place], KYMonocytes (Bld) [#/Vol]0.40 10*3/uLMccullough-Hyde [facility]- [place], KYMonocytes/100 WBC (Bld)6 %5 - 9 %[facility] [place], KYPlatelet mean volume (Bld) [Entitic vol]NOT REPORTED6 - 12 fLMartin Memorial Hospital- [place], KYPlatelets (Bld) [#/Vol]240 10*3/[facility]- [place], KYPlatelets (Bld) [#/Vol]NOT REPORTED [facility] [place], KYRBC (Bld) [#/Vol]5.43 10*6/uL4.5 - 5.9 m/[facility]- [place], KYRBC morphology finding Nom (Bld)NOT REPORTEDMartin [facility]- [place], KYSegmented neutrophils/100 WBC (Bld)79 %High39 - 75 %[facility]- [place], KYSegs Absolute5.40 [facility] [place], KYWBC (Bld) [#/Vol]NOT REPORTEDper 100 WBCMartin Memorial Hospital- [place], [place] WBC (Bld) [#/Vol]6.9 10*3/[facility]- [place], KYWBC MorphologyNOT REPORTEDMartin [facility]- [place], KYCalciumon 43-19-8607Nfoelhl [Mass/Vol]9.9 mg/dL8.6 - 10.4 mg/dL [facility] [place], KYComprehensive Metabolic Panelon 04-05-4043Sydjwac [Mass/Vol] 3.9 g/dL3.5 - 5.2 g/dLMartin [facility]- [place], KYAlbumin/Globulin [Mass ratio]NOT REPORTEDMartin [facility]- [place], KYALP [Catalytic activity/Vol]95 U/L40 - 129 U/LMCleveland Clinic Eucl[facility]- [place], KYALT [Catalytic activity/Vol]15 U/L5 - 41 U/LMCleveland Clinic Eucl[facility] Hospital- [place], [place] Anion gap [Moles/Vol]11 mmol/L9 - 17 mmol/LMkettering health [facility]- [place], KYAST [Catalytic activity/Vol]13 U/L<40[facility]- [place], KYBilirubin Ql (U)0.36 mg/dL0.3 - 1.2 mg/dLMercy [facility]- [place], KYBun/Cre Cgwgt79ZvxgpMetroHealth [facility], KYCalcium [Mass/Vol] 9.9 mg/dL8.6 - 10.4 mg/dLMet[facility]Health [facility], KYChloride [Moles/Vol]99 mmol/L98 - 107 mmol/LMOhio [facility] [place], KYCO2 [Moles/Vol]26 mmol/L20 - 31 mmol/LMCleveland Clinic Euclid Hospital- [place], KYCreatinine [Mass/Vol]1.74 mg/dLHigh0.7 - 1.2 mg/dLMet[facility]Health [facility], KYGFR Zhuscwkj68 mL/minLow>60[facility], KYGFR Non- Arriqjal64 mL/minLow>60[facility], KYGFR/1.73 sq M predicted among non- blacks MDRD (S/P/Bld) [Vol rate/Area][facility], KYComment on above: Average GFR for 50-59 years old: 93 mL/min/1.73sq m Chronic Kidney Disease: <60 mL/min/1.73sq m Kidney failure: <15 mL/min/1.73sq m eGFR calculated using average adult body mass. Additional eGFR calculator available at: http://www.MoveEZ/multiple_crcl_2012.htm GFR/1.73 sq M predicted among non-blacks MDRD (S/P/Bld) [Vol rate/Area]NOT REPORTED[facility], KYGlucose [Mass/Vol]297 mg/gXVqot07 - 99 mg/dLMet[facility]Health [facility], KYInterpretation and review of laboratory resultsAbnormalMet[facility]Health [facility], KYPotassium [Moles/Vol]4.5 mmol/L3.7 - 5.3 mmol/LMCleveland Clinic [facility]ucl[facility]- [place], KYProtein [Mass/Vol]7.4 g/dL6.4 - 8.3 g/dLMet[facility], KYSodium [Moles/Vol] 136 mmol/L135 - 144 mmol/LMKettering Memorial Hospital, KYUrea nitrogen [Mass/Vol]26 mg/dL High6 - 20 mg/dLMet[facility]Health [facility], KYCreatinine, Random Urineon 04-03-2020 Creatinine, Ur138.8 mg/dL39 - 259 mg/dLMccullough-Hy[facility]- [place], KYElectrolyte Panelon 41-97-8437Mwzoe gap [Moles/Vol]11 mmol/L9 - 17 mmol/LMercy Health- [place], [place] Chloride [Moles/Vol]99 mmol/L98 - 107 mmol/LMercy Health- [place], KYCO2 [Moles/Vol] 26 mmol/L20 - 31 mmol/LMercy Health- [place], KYPotassium [Moles/Vol]4.5 mmol/L3.7 - 5.3 mmol/LMer[facility]- [place], KYSodium [Moles/Vol]136 mmol/L135 - 144 mmol/LMercy Health- [place], KYHemoglobin and Hematocrit, Bloodon 40-55-7984Gregsddhwa (Bld) [Volume fraction]47.8 %41 - 53 %[facility]- [place], KYHemoglobin (Bld) [Mass/Vol] 15.5 g/dL13.5 - 17.5 g/dLMccullough-Hyde [facility]- [place], KYMagnesiumon 59-42-2567Syjctvlli [Mass/Vol]2.0 mg/dL1.6 - 2.6 mg/dLMartin [facility]- [place], KYOtheron 04-41-4405Vjixmrjr granulocytes (Bld) [#/Vol]NOT REPORTEDMartin [facility]- [place], ALPTH, Intacton 53-63-1601Zxh Rvkvww85.56 pg/mL15 - 65 pg/mLMartin [facility] Hospital- [place], KYComment on above:SAMPLES FROM PATIENTS ROUTINELY RECEIVING HIGH DOSE BIOTIN THERAPY MAY SHOW FALSELY DEPRESSED RESULTS. ADDITIONAL INFORMATION MAY BE REQUIRED FOR DIAGNOSIS. Phosphoruson 69-08-2795Uwvguitzr [Mass/Vol]3.9 mg/dL2.5 - 4.5 mg/dLMartin [facility]- [place], KYProtein, urine, randomon 29-52-2757Jviyubg (U) [Mass/Vol]1450 mg/dLMartin [facility]- [place], ALComment on above:No normal range established.Vitamin D 25 Hydroxy on 37-71-7992Jvnkaswazbuobr and review of laboratory resultsAbnormalMartin [facility] Hospital- [place], ALVit D, 25-Cwbhopa81.4 ng/mLLow30 - 100 ng/mLMartin [facility]- [place], [place] Comment on above: Reference Range: Vitamin D status Range Deficiency <20 ng/mL Mild Deficiency 20-30 ng/mL Sufficiency 30-100 ng/mL Toxicity >100 ng/mL BUN & Creatinineon 29-90-2555Pqsrluupzp [Mass/Vol]1.91 mg/dLHigh0.7 - 1.2 mg/dL [facility]- [place], KYGFR Rbjujjmz81 mL/minLow>60[facility] [place], KYGFR Non- Kmluxgpa47 mL/minLow>60[facility] [place], KYGFR/1.73 sq M predicted among non-blacks MDRD (S/P/Bld) [Vol rate/Area]NOT REPORTEDMccullough-Hy[facility]- [place], [place] GFR/1.73 sq M predicted among non-blacks MDRD (S/P/Bld) [Vol rate/Area][facility]- [place], KYComment on above:Average GFR for 50-59 years old: 93 mL/min/1.73sq m Chronic Kidney Disease: <60 mL/min/1.73sq m Kidney failure: <15 mL/min/1.73sq m eGFR calculated using average adult body mass. Additional eGFR calculator available at: http://www.MoveEZ/multiple_crcl_2012.htm Urea nitrogen [Mass/Vol]23 mg/dLHigh6 - 20 mg/dLMccullough-Hyde [facility]- [place], KYCalciumon 70-19-7765Mqbihjk [Mass/Vol]10.0 mg/dL8.6 - 10.4 mg/dLMccullough-Hyde [facility]- [place], [place] Electrolyte Panelon 28-27-6618Cgvcj gap [Moles/Vol]11 mmol/L9 - 17 mmol/LMercy Health- [place], KYChloride [Moles/Vol]99 mmol/L98 - 107 mmol/LMercy Health- [place], [place] CO2 [Moles/Vol]24 mmol/L20 - 31 mmol/LMercy [facility]- [place], KYPotassium [Moles/Vol] 4.9 mmol/L3.7 - 5.3 mmol/LMer[facility]- [place], KYSodium [Moles/Vol]134 mmol/ADfq842 - 144 mmol/LMer[facility]- [place], KYOtheron 81-59-3319Fciadvwbuemzpj and review of laboratory resultsAbnormalMercy Health- [place], KYAPTTon 24-60-9077xRQF Coag (Bld) [Time]58.6 [facility], KYInterpretation and review of laboratory resultsAbnoProvidence Hospital, ALaPTT Coag (Bld) [Time]40.4 [facility], KYInterpretation and review of laboratory resultsAbnoProvidence Hospital, ALBasic Metabolic Panelon 55-48-8825Kojrr gap [Moles/Vol]14 mmol/L9 - 17 mmol/L [facility], KYBun/Cre RatioNOT REPORTEDMet[facility], KYCalcium [Mass/Vol]8.5 mg/dLLow8.6 - 10.4 mg/dLMet[facility]Health [facility], KYChloride [Moles/Vol]99 mmol/L98 - 107 mmol/LMKettering Memorial Hospital, KYCO2 [Moles/Vol]23 mmol/L20 - 31 mmol/L [facility], KYCreatinine [Mass/Vol]1.61 mg/dLHigh0.7 - 1.2 mg/dLMet[facility]Health [facility], KYGFR Msgytpae89 mL/minLow>60[facility], KYGFR Non- Vtfgzwrm75 mL/minLow>60[facility], KYGFR/1.73 sq M predicted among non-blacks MDRD (S/P/Bld) [Vol rate/Area]NOT REPORTED[facility], [place] GFR/1.73 sq M predicted among non-blacks MDRD (S/P/Bld) [Vol rate/Area][facility], KYComment on above:Average GFR for 50-59 years old: 93 mL/min/1.73sq m Chronic Kidney Disease: <60 mL/min/1.73sq m Kidney failure: <15 mL/min/1.73sq m eGFR calculated using average adult body mass. Additional eGFR calculator available at: http://www.MoveEZ/multiple_crcl_2012.htm Glucose [Mass/Vol]177 mg/aNPmbf42 - 99 mg/dLMet[facility]Health [facility], KYInterpretation and review of laboratory resultsAbnoProvidence Hospital, KYPotassium [Moles/Vol]4.3 mmol/L3.7 - 5.3 mmol/[facility], KYSodium [Moles/Vol]136 mmol/L135 - 144 mmol/[facility], KYUrea nitrogen [Mass/Vol]21 mg/dLHigh6 - 20 mg/dLMet[facility]Health [facility], KYPOC Glucose Fingerstickon 57-69-0005Gtsjibx [Mass/Vol]231 mg/uVJvnf94 - 110 mg/dLMet[facility]Health [facility], KYInterpretation and review of laboratory resultsAbProMedica Memorial Hospital, KYGlucose [Mass/Vol]220 mg/qMJiwq20 - 110 mg/dLMet[facility]Health [facility], KYInterpretation and review of laboratory resultsAbProMedica Memorial Hospital, ALAPTTon 96-87-7486aDFG Coag (Bld) [Time]40.4 [facility], KYInterpretation and review of laboratory resultsAbProMedica Memorial Hospital, ALaPTT Coag (Bld) [Time]71.5 [facility], KYInterpretation and review of laboratory resultsAbProMedica Memorial Hospital, KYBasic Metabolic Panelon 72-84-6653Mipfb gap [Moles/Vol]14 mmol/L9 - 17 mmol/L [facility], KYBun/Cre RatioNOT REPORTEDMet[facility], KYCalcium [Mass/Vol]8.7 mg/dL8.6 - 10.4 mg/dLMet[facility]Health [facility], KYChloride [Moles/Vol]100 mmol/L98 - 107 mmol/[facility], KYCO2 [Moles/Vol]22 mmol/L20 - 31 mmol/L [facility], KYCreatinine [Mass/Vol]1.79 mg/dLHigh0.7 - 1.2 mg/dLMet[facility]Health [facility], KYGFR Naalwpjq72 mL/minLow>60[facility], KYGFR Non- Deuzvddj39 mL/minLow>60[facility], KYGFR/1.73 sq M predicted among non-blacks MDRD (S/P/Bld) [Vol rate/Area][facility], KYComment on above: Average GFR for 50-59 years old: 93 mL/min/1.73sq m Chronic Kidney Disease: <60 mL/min/1.73sq m Kidney failure: <15 mL/min/1.73sq m eGFR calculated using average adult body mass. Additional eGFR calculator available at: http://www.MoveEZ/multiple_crcl_2012.htm GFR/1.73 sq M predicted among non-blacks MDRD (S/P/Bld) [Vol rate/Area]NOT REPORTED[facility], KYGlucose [Mass/Vol]208 mg/eCMitu46 - 99 mg/dLMet[facility]Health [facility], KYInterpretation and review of laboratory resultsAbnormalMet[facility]Health [facility], KYPotassium [Moles/Vol]4.2 mmol/L3.7 - 5.3 mmol/LMKettering Memorial Hospital, KYSodium [Moles/Vol]136 mmol/L135 - 144 mmol/LM[address] [facility] [place], KYUrea nitrogen [Mass/Vol]24 mg/dLHigh6 - 20 mg/dLMet[facility]Health [facility], KYCardiac Catheterizationon 42-17-0709Lryuolt Interventional Report Demographics Patient LM Nash Date of Study 10/06/2019 Name Date of 1970 Gender Male Age 49 year(s) Race Room [id number]^[facility]^[place] Height: 69 inch, 175.26 cm Number Corporate [id number] Weight: 275 pounds, 124.7 ID # kg Patient [id number] BSA: 2.37 m^2 BMI: 40.61 Acct # kg/m^2 MR # [id number] Performing Joslyn Tucker Physician Referring # Physician [...] as Moderate Risk (B). Devices used - [employer] Prowater 190 cm. Number of passes: 1. [...] P.O. 180 mg. Contrast Material: - Optiray [id number] ml Fluoroscopy Time: Diagnostic: 6:36 minutes. Total: [...] assessed as CCS III according to the Kyrgyz clinical classification. Hemodynamics Condition: Baseline Room Air Estimated: 317.58 Shunts Oxygen Values O2 Gukitkzz906.76O2 Csingwjxgux247.58[facility]- WYJeff Mhpn Incoming Cardio Results From [facility]/ - 10/06/2019 10:00 AM EST Cardiac Interventional Report Demographics Patient LM Nash Date of Study 10/06/2019 Name Date of 1970 Gender Male Age 49 year(s) Race Room [id number]^KEITH^[place] Height: 69 inch, 175.26 cm Number Corporate [id number] Weight: 275 pounds, 124.7 ID # kg Patient [id number] BSA: 2.37 m^2 BMI: 40.61 Acct # kg/m^2 MR # [id number] Performing Joslyn Tucker Physician Referring # Physician [...] P.O. 180 mg. Contrast Material: - Optiray [id number] ml Fluoroscopy Time: Diagnostic: 6:36 minutes. Total: [...] assessed as CCS III according to the Kyrgyz clinical classification. Hemodynamics Condition: Baseline Room Air Estimated: 317.58 Shunts Oxygen Values O2 Cwgerrby842.76O2 Avmdhdvwwjx578.58 [facility], ALPOC Glucose Fingerstickon 45-63-0544Wlwdvwi [Mass/Vol]221 mg/hBTolf73 - 110 mg/dLMet[facility]Health [facility], KYInterpretation and review of laboratory resultsAbnormOhioHealth Doctors Hospital, KYGlucose [Mass/Vol]189 mg/iIFbtu33 - 110 mg/dLMet[facility]Health [facility], KYInterpretation and review of laboratory results AbnormalMet[facility]Health [facility], KYGlucose [Mass/Vol]131 mg/rNOwov91 - 110 mg/dLMet[facility]Health [facility], KYInterpretation and review of laboratory resultsAbnoProvidence Hospital, KYPlatelet counton 32-39-7273Icmamqbau (Bld) [#/Vol]213 10*3/uLMetroHealth [facility], KYAPTTon 39-48-4033qGAL Coag (Bld) [Time]67.9 [facility], KYInterpretation and review of laboratory resultsAbProMedica Memorial Hospital, KYBasic Metabolic Panelon 33-58-8602Wbefm gap [Moles/Vol]10 mmol/L9 - 17 mmol/L [facility], KYBun/Cre RatioNOT REPORTEDMet[facility]Health [facility], KYCalcium [Mass/Vol]8.6 mg/dL8.6 - 10.4 mg/dLMet[facility]Health [facility], KYChloride [Moles/Vol]102 mmol/L98 - 107 mmol/LMKettering Memorial Hospital, KYCO2 [Moles/Vol]25 mmol/L20 - 31 mmol/L [facility], KYCreatinine [Mass/Vol]1.78 mg/dLHigh0.7 - 1.2 mg/dLMet[facility]Health [facility], KYGFR Oluugwip65 mL/minLow>60[facility], KYGFR Non- Gehrhqlu99 mL/minLow>60[facility], ALGFR/1.73 sq M predicted among non-blacks MDRD (S/P/Bld) [Vol rate/Area][facility], ALComment on above: Average GFR for 50-59 years old: 93 mL/min/1.73sq m Chronic Kidney Disease: <60 mL/min/1.73sq m Kidney failure: <15 mL/min/1.73sq m eGFR calculated using average adult body mass. Additional eGFR calculator available at: http://www.MoveEZ/multiple_crcl_2012.htm GFR/1.73 sq M predicted among non-blacks MDRD (S/P/Bld) [Vol rate/Area]NOT REPORTED[facility], ALGlucose [Mass/Vol]188 mg/tTIkta64 - 99 mg/dLMet[facility]Health [facility], ALInterpretation and review of laboratory resultsAbnoProvidence Hospital, KYPotassium [Moles/Vol]4.2 mmol/L3.7 - 5.3 mmol/LMKettering [facility], KYSodium [Moles/Vol]137 mmol/L135 - 144 mmol/LMKettering Memorial Hospital, KYUrea nitrogen [Mass/Vol]23 mg/dLHigh6 - 20 mg/dLMet[facility]Health [facility], ALPOC Glucose Fingerstickon 03-21-7607Ixwzieg [Mass/Vol]228 mg/mMRppz81 - 110 mg/dLMet[facility]Health [facility], [place] Interpretation and review of laboratory resultsAbnoProvidence Hospital, [place] Glucose [Mass/Vol]148 mg/dHYvva56 - 110 mg/dLMet[facility]Health [facility], ALInterpretation and review of laboratory resultsAbnoProvidence Hospital, ALGlucose [Mass/Vol] 188 mg/uDSmqt57 - 110 mg/dLMet[facility]Health [facility], ALInterpretation and review of laboratory resultsAbProMedica Memorial Hospital, ALGlucose [Mass/Vol]132 mg/mYKrtx07 - 110 mg/dLMet[facility]Health [facility], ALInterpretation and review of laboratory results AbnormalMetroHealth [facility], ALAPTEncompass Health [facility] 91-80-5751oYBR Coag (Bld) [Time]63.9 [facility], KYInterpretation and review of laboratory resultsAbnoProvidence Hospital, KYaPTT Coag (Bld) [Time]66.0 [facility], [place] Interpretation and review of laboratory resultsAbnoProvidence Hospital, ALaPTT Coag (Bld) [Time]73.3 [facility], KYInterpretation and review of laboratory resultsAbnoProvidence Hospital, ALBasic Metabolic Panelon 10-04-2019 Anion gap [Moles/Vol]11 mmol/L9 - 17 mmol/LMKettering Memorial Hospital, KYBun/Cre RatioNOT REPORTEDMet[facility], KYCalcium [Mass/Vol]8.7 mg/dL8.6 - 10.4 mg/dLMet[facility]Health [facility], KYChloride [Moles/Vol]103 mmol/L98 - 107 mmol/[facility], [place] CO2 [Moles/Vol]24 mmol/L20 - 31 mmol/[facility], KYCreatinine [Mass/Vol] 1.54 mg/dLHigh0.7 - 1.2 mg/dLMet[facility]Health [facility], KYGFR Pxnrtzje89 mL/min Low>60[facility], KYGFR Non- Vyutakig68 mL/minLow>60[facility], KYGFR/1.73 sq M predicted among non-blacks MDRD (S/P/Bld) [Vol rate/Area]NOT REPORTED[facility], KYGFR/1.73 sq M predicted among non-blacks MDRD (S/P/Bld) [Vol rate/Area][facility] [place], [place]Comment on above:Average GFR for 50-59 years old: 93 mL/min/1.73sq m Chronic Kidney Disease: <60 mL/min/1.73sq m Kidney failure: <15 mL/min/1.73sq m eGFR calculated using average adult body mass. Additional eGFR calculator available at: http://www.Langhar.My-Apps/multiple_crcl_2012.htm Glucose [Mass/Vol]143 mg/zXSqyl71 - 99 mg/dLMetroHealth [facility], KYInterpretation and review of laboratory resultsAbnoProvidence Hospital, KYPotassium [Moles/Vol]4.0 mmol/L3.7 - 5.3 mmol/[facility], KYSodium [Moles/Vol]138 mmol/L135 - 144 mmol/[facility], KYUrea nitrogen [Mass/Vol]20 mg/dL6 - 20 mg/dLMetroHealth [facility], KYPOC Glucose Fingerstickon 69-08-8650Uvirjjf [Mass/Vol] 223 mg/pUKmhs58 - 110 mg/dLMetroHealth [facility], KYInterpretation and review of laboratory resultsAbnoProvidence Hospital, KYGlucose [Mass/Vol]183 mg/rEExos00 - 110 mg/dLMetroHealth [facility], KYInterpretation and review of laboratory results AbnormalMetroHealth [facility], KYGlucose [Mass/Vol]85 mg/dL75 - 110 mg/dLMetroHealth [facility], KYGlucose [Mass/Vol]95 mg/dL75 - 110 mg/dLMetroHealth [facility], [place] Glucose [Mass/Vol]64 mg/dLLow75 - 110 mg/dLMetroHealth [facility], KYInterpretation and review of laboratory resultsAbnoProvidence Hospital, ALPlatelet counton 48-08-6301Ibvwdbxhu (Bld) [#/Vol]234 10*3/[facility], ALAPTTon 54-83-4091gOGQ Coag (Bld) [Time]55.5 [facility], KYInterpretation and review of laboratory resultsAbnoProvidence Hospital, ALaPTT Coag (Bld) [Time] 40.1 [facility] [place], KYInterpretation and review of laboratory results AbnormalMetroHealth [facility], ALaPTT Coag (Bld) [Time]48.9 [facility] [place], [place] Interpretation and review of laboratory resultsAbnoProvidence Hospital, ALaPTT Coag (Bld) [Time]27.3 [facility], KYBasic Metabolic Panelon 10-03-2019 Anion gap [Moles/Vol]11 mmol/L9 - 17 mmol/LMKettering Memorial Hospital, KYBun/Cre RatioNOT REPORTEDMetroHealth [facility], KYCalcium [Mass/Vol]8.6 mg/dL8.6 - 10.4 mg/dLMetroHealth [facility], KYChloride [Moles/Vol]103 mmol/L98 - 107 mmol/LMKettering Memorial Hospital, [place] CO2 [Moles/Vol]25 mmol/L20 - 31 mmol/LMKettering Memorial Hospital, KYCreatinine [Mass/Vol] 1.5 mg/dLHigh0.7 - 1.2 mg/dLMetroHealth [facility], KYGFR >60>60 mL/minMetroHealth Cleveland Heights [facility], KYGFR Non- Pdwlhqdu30 mL/minLow>60[facility], KYGFR/1.73 sq M predicted among non-blacks MDRD (S/P/Bld) [Vol rate/Area]NOT REPORTEDMet[facility]Health [facility], KYGFR/1.73 sq M predicted among non-blacks MDRD (S/P/Bld) [Vol rate/Area][facility], KYComment on above:Average GFR for 50-59 years old: 93 mL/min/1.73sq m Chronic Kidney Disease: <60 mL/min/1.73sq m Kidney failure: <15 mL/min/1.73sq m eGFR calculated using average adult body mass. Additional eGFR calculator available at: http://www.MoveEZ/multiple_crcl_2011.htm Glucose [Mass/Vol]109 mg/mUYayt58 - 99 mg/dLMetroHealth [facility], KYInterpretation and review of laboratory resultsAbnormalMetroHealth [facility], KYPotassium [Moles/Vol]4.3 mmol/L3.7 - 5.3 mmol/LMKettering Memorial Hospital, KYSodium [Moles/Vol]139 mmol/L135 - 144 mmol/LMKettering Memorial Hospital, KYUrea nitrogen [Mass/Vol]18 mg/dL6 - 20 mg/dLMetroHealth [facility], KYHemoglobin A1Con 91-90-6482Adrbuip [Mass/Vol]171 mg/dL [facility], KYComment on above:The ADA and AACC recommend providing the estimated average glucose result to permit better patient understanding of their HBA1c result. HbA1c (Bld) [Mass fraction]7.6 %High4 - 6 %[facility], KYInterpretation and review of laboratory resultsAbnoProvidence Hospital, KYPOC Glucose Fingerstickon 19-60-5489Ljdnkse [Mass/Vol]215 mg/lZIttk86 - 110 mg/dLMetroHealth [facility], KYInterpretation and review of laboratory resultsAbnoProvidence Hospital, KYGlucose [Mass/Vol]194 mg/cHDadc36 - 110 mg/dLMetroHealth [facility], [place] Interpretation and review of laboratory resultsAbnoProvidence Hospital, [place] Glucose [Mass/Vol]95 mg/dL75 - 110 mg/dLMetroHealth [facility], KYGlucose [Mass/Vol] 101 mg/dL75 - 110 mg/dLMetroHealth [facility] Heights [facility], KYVL DUP CAROTID BILATERALon 10-03-2019 Elvis, Mhpn Incoming Cardio Results From Cpacs/Ge - 10/03/2019 10:00 PM EST [facility] Vascular Carotid Procedure Patient Name LM Date of Study 10/03/2019 LORENZO Nash Date of 1970 Gender Male Age 49 year(s) Race Room Number 2007 Height: 69 inch, 175.26 cm Corporate ID [id number] Weight: 288 pounds, 130.6 kg # Patient Acct [id number] BSA: 2.41 m^2 BMI: 42.53 kg/m^2 # MR # [id number] Sales Host Tamra Mcbride T Interpreting Physician Nalini Stone [...] 2006 Height:69 inch, 175.26 cm Corporate ID [id number] Weight: 288 pounds, 130.6 kg # Patient Acct [id number] BSA:2.41 m^2 BMI: 42.53 kg/m^2 # MR # [id number] Sales Host Tamra Mcbride Deniz Interpreting Physician Nalini Stone Referring Referring Physician VINNIE aEson Nurse Practitioner Procedure Type of Study: Cerebral: [...] the left side. - Additional Measurements:ICAPSV/CCAPSV 0.9.ICAEDV/CCAEDV 2.24.[facility] LOWER EXTREMITY VENOUS BILATERALon 25-72-9078BsgcxWadley Regional Medical Center Vascular Lower Extremities DVT Study Procedure Patient Name LM Date ofStudy 10/03/2019 LORENZO Nash Date of 1970 Gender Male Age 49 year(s) Race Room Number 2006 Height: 69 inch, 175.26 cm Corporate ID [id number] Weight: 288 pounds, 130.6 kg # Patient Acct [id number] BSA: 2.41 m^2 BMI: 42.53 kg/m^2 # MR # [id number] Sales Host Tamra Mcbride RVT Interpreting Physician Nalini Stone [...] !Phasic ! ! ! +--- + +------+ +[facility]- Jeff KAMINSKI Mhpn Incoming Cardio Results From [facility] - 10/03/2019 10:06 PM [facility] Vascular Lower Extremities DVT Study Procedure Patient Name LM Date of Study 10/03/2019 LORENZO Nash Date of 1970 Gender Male Age 49 year(s) Race Room Number 2007 Height: 69 inch, 175.26 cm Corporate ID [id number] Weight: 288 pounds, 130.6 kg # Patient Acct [id number] BSA: 2.41 m^2 BMI: 42.53 kg/m^2 # MR # [id number] Sales Host Tamra Mcbride RVT Interpreting Physician Nalini Stone [...] ! ! ! + + +------+ + [place]_- [place], MicroCoalVL VEIN MAPPING LOWER BILATERALon [id number] Regional Medical Center Vascular Lower Extremity Vein Mapping Procedure Patient Name LM Date of Study 10/03/2019 LORENZO Nash Date of 1970 Gender Male Age 49 year(s) Race Room Number 2007 Height: 69 inch, 175.26 cm Corporate ID [id number] Weight: 288 pounds, 130.6 kg # Patient Acct [id number] BSA: 2.41 m^2 BMI: 42.53 kg/m^2 # MR # [id number] Sales Host Tamra Mcbride RVT Interpreting Physician Nalini Stone [...] ! ! !0.26 ! ! + ++--------+-----+----+--------+-----+ [facility] Jeff KAMINSKI Mhpn Incoming Cardio Results From Cpa/Ge - 10/03/2019 10:09 PM [facility] Vascular Lower Extremity Vein Mapping Procedure Patient Name LM Date of Study 10/03/2019 LORENZO Nash Date of 1970 Gender Male Age 49 year(s) Race Room Number 2006 Height: 69 inch, 175.26 cm Corporate ID [id number] Weight: 288 pounds, 130.6 kg # Patient Acct [id number] BSA: 2.41 m^2 BMI: 42.53 kg/m^2 # MR # [id number] Sales Host Tamra Mcbride RVT Interpreting Physician Nalini Stone [...] ! !0.26 ! ! + ++--------+-----+----+--------+----- + [facility] BonzerDargPIKE COUNTY MEM[facility], [facility] [id number] Coag (Bld) [Time]29.2 [facility] Centeradflyer [place], ALaPTT Coag (Bld) [Time]72.3 [facility], ALInterpretation and review of laboratory resultsAbnormalMetroHealth [facility], ALBasic Metabolic Panelon [id number] gap [Moles/Vol]11 mmol/L9 - 17 mmol/LMmer[facility] [address] [facility]ita[facility] medical centery Health- [place], KYBun/Cre RatioNOT REPORTEDMerMultiCare Health- [place], KYCalcium [Mass/Vol]8.9 mg/dL8.6 - 10.4 mg/dLMartin Memorial Hospital- [place], KYChloride [Moles/Vol]103 mmol/L98 - 107 mmol/LM[address] rita's medical centery Health- [place], KYCO2 [Moles/Vol]26 mmol/L20 - 31 mmol/LMercy Health- [place], [place] Creatinine [Mass/Vol]1.71 mg/dLHigh0.7 - 1.2 mg/dLMccullough-Hyde Memorial Hospital Health- [place], KYGFR Pehecncs69 mL/minLow>60[facility]- [place], KYGFR Non- Impfelne62 mL/minLow>60[facility]- [place], KYGFR/1.73 sq M predicted among non-blacks MDRD (S/P/Bld) [Vol rate/Area][facility] [place], ALComment on above:Average GFR for 50-59 years old: 93 mL/min/1.73sq m Chronic Kidney Disease: <60 mL/min/1.73sq m Kidney failure: <15 mL/min/1.73sq m eGFR calculated using average adult body mass. Additional eGFR calculator available at: http://www.MoveEZ/multiple_crcl_2012.htm GFR/1.73 sq M predicted among non-blacks MDRD (S/P/Bld) [Vol rate/Area]NOT REPORTEDMet[facility]Health [facility], KYGlucose [Mass/Vol]71 mg/dL70 - 99 mg/dLMetroHealth [facility], KYInterpretation and review of laboratory resultsAbnormalMetroHealth [facility], KYPotassium [Moles/Vol]4.5 mmol/L3.7 - 5.3 mmol/LMCleveland Clinic Euclid Hospital- [place], KYSodium [Moles/Vol]140 mmol/L135 - 144 mmol/LMOhio Valley Surgical Hospital [place], KYUrea nitrogen [Mass/Vol]21 mg/dLHigh6 - 20 mg/dLMetroHealth [facility], KYCBC Auto Differentialon [id number] (Bld) [#/Vol]0.03 10*3/uLEast [facility] [place], KYBasophils/100 WBC (Bld)0 %0 - 2 %[facility], KYDifferential TypeNOT REPORTEDMet[facility]Health [facility], KYEosinophils (Bld) [#/Vol]0.17 10*3/uLMartin Memorial Hospital- [place], [place] Eosinophils/100 WBC (Bld)2 %1 - 4 %[facility], KYErythrocyte distribution width (RBC) [Ratio]16.5 %High11.8 - 14.4 %[facility], KYHematocrit (Bld) [Volume fraction]38.5 %Low40.7 - 50.3 %[facility], KYHemoglobin (Bld) [Mass/Vol]11.6 g/dLLow13 - 17 g/dLMetroHealth [facility], KYImmature granulocytes (Bld) [#/Vol]10*3/uLMartin Memorial Hospital- [place], KYImmature granulocytes (Bld) [#/Vol]0 %0 [facility], KYInterpretation and review of laboratory resultsAbnormOhioHealth Doctors Hospital, KYLymphocytes (Bld) [#/Vol]1.78 10*3/[facility], [place] Lymphocytes/100 WBC (Bld)22 %Low24 - 43 %[facility], ALMCH (RBC) [Entitic mass]28.0 pg25.2 - 33.5 pgMetroHealth [facility], ALMCHC (RBC) [Mass/Vol]30.1 g/dL28.4 - 34.8 g/dLMet[facility]Health [facility], ALMCV (RBC) [Entitic vol]93.0 fL82.6 - 102.9 fL [facility], KYMonocytes (Bld) [#/Vol]0.55 10*3/[facility], [place] Monocytes/100 WBC (Bld)7 %3 - 12 %[facility], ALPlatelet mean volume (Bld) [Entitic vol]9.7 fL8.1 - 13.5 fLMetroHealth Cleveland Heights Medical Center, KYPlatelets (Bld) [#/Vol]246 10*3/[facility], KYPlatelets (Bld) [#/Vol]NOT REPORTEDEagle [place], KYRBC (Bld) [#/Vol]4.14 10*6/uLLow4.21 - 5.77 m/[facility], ALRBC morphology finding Nom (Bld)ANISOCYTOSIS PRESENTMetroHealth [facility] Center, ALSegmented neutrophils/100 WBC (Bld)69 %High36 - 65 %[facility], ALSegs Absolute5.67 [facility], KYWBC (Bld) [#/Vol]8.2 10*3/[facility], KYWBC (Bld) [#/Vol]0.0 10*3/uL0.0 per 100 WBCMetroHealth [facility] Heights [facility] Center, ALWBC MorphologyNOT REPORTED [facility], ALCardiac Catheterizationon [id number], Mhpn Incoming Cardio Results From Cpacs/Ge - 10/02/2019 1:17 PM EST Cardiac Diagnostic Report Demographics Patient LM Nash Date of Study 10/02/2019 Name Date of 1970 Gender Male Age 49 year(s) Race Room [id number]^CHINEDU^JESSIE Height: 69 inch, 175.26 cm Number Corporate [id number] Weight: 288 pounds, 130.6 kg ID # Patient [id number] BSA: 2.41 m^2 BMI: 42.53 kg/m^2 Acct # MR # [id number] Performing Jessie Che Physician Referring # Physician [...] Left coronary angiography. Contrast Material: - Optiray 59214 ml Fluoroscopy Time: Diagnostic: 2:15 minutes. Total: [...] assessed as CCS III according to the Kyrgyz clinical classification. Hemodynamics Condition: Baseline Room Air Estimated: 317.39Heart Rate: 102 bpm Pressure +-----+ + !Site !Pressure ! +-----+ + !AO !116/59 (87) ! +-----+ + !LV !122/1 ,8 ! +-----+ + Shunts Oxygen Values O2 Ooghhlisbpt792.39 [place]_ [employer], Aireon Diagnostic Report Demographics Patient LM Nash Date of Study 10/02/2019 Name Date of1970 Gender Male Age 49 year(s) Race Room [id number]^ZURDO Height: 69 inch, 175.26 cm Number Corporate [id number] Weight: 288 pounds, 130.6 kg ID # Patient [id number] BSA: 2.41m^2 BMI: 42.53 kg/m^2 Acct # MR # [id number] Performing Jessie Che Physician Referring # Physician [...] coronary angiography. Co ntrast Material: - Optiray 73247 ml Fluoroscopy Time: Diagnostic: 2:15 minutes. Total: [...] assessed as CCS III according to the Kyrgyz clinical classification. Hemodynamics Condition: Baseline Room Air Estimated: 317.39Heart Rate: 102 bpm Pressure +-----+ + !Site !Pressure ! + -----+ + !AO !116/59 (87) ! +---- -+ + !LV !122/1 ,8 ! +-----+----- + Shunts Oxygen Values O2 Eybdujirlkl470.39[facility], ALPO Glucose Fingerstickon 06-51-3412Hjxvfwe [Mass/Vol]142 mg/fVKdxf95 - 110 mg/dLMetroHealth [facility], [place] Interpretation and review of laboratory resultsAbnoProvidence Hospital, [place] Glucose [Mass/Vol]60 mg/dLLow75 - 110 mg/dLMet[facility]Health [facility], KYInterpretation and review of laboratory resultsAbProMedica Memorial Hospital, KYGlucose [Mass/Vol]91 mg/dL75 - 110 mg/dLMetroHealth [facility], KYAPTTon [id number] Coag (Bld) [Time] 51.9 [facility], KYInterpretation and review of laboratory results AbnormalMetroHealth [facility], KYaPTT Coag (Bld) [Time]54.0 [facility], [place] Interpretation and review of laboratory resultsAbnoProvidence Hospital, KYaPTT Coag (Bld) [Time]38.7 [facility], KYInterpretation and review of laboratory resultsAbProMedica Memorial Hospital, ALBasic Metabolic Panelon 10-01-2019 Anion gap [Moles/Vol]9 mmol/L9 - 17 mmol/LMCleveland Clinic Euclid Hospital- [place], KYBun/Cre RatioNOT REPORTEDMartin Memorial Hospital- [place], KYCalcium [Mass/Vol]8.8 mg/dL8.6 - 10.4 mg/dLMetroHealth [facility], KYChloride [Moles/Vol]100 mmol/L98 - 107 mmol/LMCleveland Clinic Euclid Hospital- [place], [place] CO2 [Moles/Vol]26 mmol/L20 - 31 mmol/LMCleveland Clinic Euclid Hospital- [place], KYCreatinine [Mass/Vol] 1.77 mg/dLHigh0.7 - 1.2 mg/dLMet[facility]Health [facility], KYGFR Dxhbczlg02 mL/min Low>60[facility], KYGFR Non- Zzxkhedl54 mL/minLow>60[facility], KYGFR/1.73 sq M predicted among non-blacks MDRD (S/P/Bld) [Vol rate/Area]NOT REPORTEDMet[facility], KYGFR/1.73 sq M predicted among non-blacks MDRD (S/P/Bld) [Vol rate/Area][facility], KYComment on above:Average GFR for 50-59 years old: 93 mL/min/1.73sq m Chronic Kidney Disease: <60 mL/min/1.73sq m Kidney failure: <15 mL/min/1.73sq m eGFR calculated using average adult body mass. Additional eGFR calculator available at: http://www.MoveEZ/multiple_crcl_2011.htm Glucose [Mass/Vol]167 mg/fJAipf86 - 99 mg/dLMet[facility]Health [facility], KYInterpretation and review of laboratory resultsAbnormOhioHealth Doctors Hospital, KYPotassium [Moles/Vol]5.0 mmol/L3.7 - 5.3 mmol/[facility], KYSodium [Moles/Vol]135 mmol/L135 - 144 mmol/[facility], KYUrea nitrogen [Mass/Vol]20 mg/dL6 - 20 mg/dLMetroHealth [facility], KYPOC Glucose Fingerstickon 48-35-1460Mexpbrg [Mass/Vol] 146 mg/oVYwdc15 - 110 mg/dLMetroHealth [facility], KYInterpretation and review of laboratory resultsAbnormOhioHealth Doctors Hospital, KYGlucose [Mass/Vol]151 mg/fXYaur52 - 110 mg/dLMet[facility]Health [facility], KYInterpretation and review of laboratory results AbnormalMetroHealth [facility], KYGlucose [Mass/Vol]83 mg/dL75 - 110 mg/dLMetroHealth [facility], KYAPTTon 30-69-8714kSXO Coag (Bld) [Time]27.2 [place], [place] aPTT Coag (Bld) [Time]24.4 [place], KYCBCon 97-06-2636Mcfmvqrbxnn distribution width (RBC) [Ratio]16.9 %High11.8 - 14.4 %[place], [place] Hematocrit (Bld) [Volume fraction]38.2 %Low40.7 - 50.3 %[place], [place] Hemoglobin (Bld) [Mass/Vol]11.6 g/dLLow13 - 17 g/dLEagle [place], [place] Interpretation and review of laboratory resultsAbnoDuncanville, KYMCH (RBC) [Entitic mass]28.3 pg25.2 - 33.5 pgEagle Grove, KYMCHC (RBC) [Mass/Vol]30.4 g/dL28.4 - 34.8 g/dLEagle [place], KYMCV (RBC) [Entitic vol] 93.2 fL82.6 - 102.9 fLEagle [place], KYPlatelet mean volume (Bld) [Entitic vol]9.4 fL8.1 - 13.5 fLEagle [place], KYPlatelets (Bld) [#/Vol]259 10*3/uL [place], KYRBC (Bld) [#/Vol]4.10 10*6/uLLow4.21 - 5.77 m/[facility], ALWBC (Bld) [#/Vol]6.2 10*3/uLMetroHealth [facility] Heights [facility] Center, ALWBC (Bld) [#/Vol] 0.0 10*3/uL0.0 per 100 WBCEagle Grove, KYErythrocyte distribution width (RBC) [Ratio]17.0 %High11.8 - 14.4 %[place], KYHematocrit (Bld) [Volume fraction]35.0 %Low40.7 - 50.3 %[place], KYHemoglobin (Bld) [Mass/Vol] 10.5 g/dLLow13 - 17 g/dLEagle [place], KYInterpretation and review of laboratory resultsAbnoDuncanville, KYMCH (RBC) [Entitic mass]28.1 pg 25.2 - 33.5 pgMccullough-Hyde Memorial Hospital Health- [place], KYMCHC (RBC) [Mass/Vol]30.0 g/dL28.4 - 34.8 g/dL [facility] Health- [place], KYMCV (RBC) [Entitic vol]93.6 fL82.6 - 102.9 fLMccullough-Hyde Memorial Hospital Health- [place], KYPlatelet mean volume (Bld) [Entitic vol]9.8 fL8.1 - 13.5 fLMccullough-Hyde Memorial Hospital Health- [place], KYPlatelets (Bld) [#/Vol]259 10*3/uLMccullough-Hyde Memorial Hospital Health- [place], KYRBC (Bld) [#/Vol] 3.74 10*6/uLLow4.21 - 5.77 m/uLMccullough-Hyde Memorial Hospital Health- [place], KYWBC (Bld) [#/Vol]0.0 10*3/uL 0.0 per 100 WBCMccullough-Hyde Memorial Hospital Health- [place], KYWBC (Bld) [#/Vol]6.6 10*3/uLMccullough-Hyde Memorial Hospital Health- [place], KYComprehensive Metabolic Panel w/ Reflex to MGon 20-17-4269Vmkadal [Mass/Vol] 3.1 g/dLLow3.5 - 5.2 g/dLMccullough-Hyde [facility] Health- [place], KYAlbumin/Globulin [Mass ratio]1.3 {ratio}[facility]- [place], KYALP [Catalytic activity/Vol]70 U/L40 - 129 U/LMkettering health greene memorial [facility]- [place], KYALT [Catalytic activity/Vol]8 U/L5 - 41 U/LMkettering health greene [facility]- [place], [place] Anion gap [Moles/Vol]10 mmol/L9 - 17 mmol/LMmer[facility] [address] centery [facility]- [place], KYAST [Catalytic activity/Vol]9 U/L<40[facility]- [place], KYBilirubin Ql (U)0.31 mg/dL0.3 - 1.2 mg/dLMccullough-Hyde [facility]- [place], KYBun/Cre RatioNOT REPORTEDMer Health- [place], KYCalcium [Mass/Vol]8.5 mg/dLLow8.6 - 10.4 mg/dLMccullough-Hyde [facility]- [place], KYChloride [Moles/Vol] 102 mmol/L98 - 107 mmol/LMkettering health greene memorial Health- [place], KYCO2 [Moles/Vol]25 mmol/L20 - 31 mmol/[facility], KYCreatinine [Mass/Vol]1.71 mg/dLHigh0.7 - 1.2 mg/dL [facility], KYGFR Prxocwlq15 mL/minLow>60[facility], KYGFR Non- Nrhsgmlg83 mL/minLow>60[facility], KYGFR/1.73 sq M predicted among non-blacks MDRD (S/P/Bld) [Vol rate/Area][facility], KYComment on above:Average GFR for 50-59 years old: 93 mL/min/1.73sq m Chronic Kidney Disease: <60 mL/min/1.73sq m Kidney failure: <15 mL/min/1.73sq m eGFR calculated using average adult body mass. Additional eGFR calculator available at: http://www.MoveEZ/MessageGears_crcl_2012.htm GFR/1.73 sq M predicted among non-blacks MDRD (S/P/Bld) [Vol rate/Area]NOT REPORTEDMet[facility]Health [facility], KYGlucose [Mass/Vol]158 mg/fUYbhj63 - 99 mg/dLMetroHealth [facility], KYPotassium [Moles/Vol]4.3 mmol/L3.7 - 5.3 mmol/[facility], KYProtein [Mass/Vol]5.4 g/dLLow6.4 - 8.3 g/dLMetroHealth [facility], KYSodium [Moles/Vol]137 mmol/L135 - 144 mmol/[facility], KYUrea nitrogen [Mass/Vol]20 mg/dL6 - 20 mg/dLMetroHealth [facility], KYLipid panel - fastingon 15-64-3136Vwnvxycimmf [Mass/Vol]113 mg/dL<200[facility], ALComment on above: Cholesterol Guidelines: <200 Desirable 200-240 Borderline >240 Undesirable Cholesterol in HDL [Mass/Vol]27 mg/dLLow>40[facility], ALComment on above: HDL Guidelines: <40 Undesirable 40-59 Borderline >59 Desirable Cholesterol in LDL [Mass/Vol]55 mg/dL0 - 130 mg/dLMetroHealth [facility], KYComment on above: LDL Guidelines: <100 Desirable 100-129 Near to/above Desirable 130-159 Borderline >159 Undesirable Direct (measured) LDL and calculated LDL are not interchangeable tests. Cholesterol in VLDL [Mass/Vol]NOT REPORTEDHigh1 - 30 mg/dLMetroHealth [facility], [place] Cholesterol.total/Cholesterol in HDL [Mass ratio]4.2 {ratio}<5[facility], ALTriglyceride [Mass/Vol]153 mg/dLHigh<150[facility], ALComment on above: Triglyceride Guidelines: <150 Desirable 150-199 Borderline 200-499 High >499 Very high Based on AHA Guidelines for fasting triglyceride, August 2012. Magnesiumon 60-81-9710Exzkwgnxy [Mass/Vol]1.9 mg/dL1.6 - 2.6 mg/dLMetroHealth [facility], KYOtheron 05-71-2792Cekumekojbkfof and review of laboratory resultsAbPeoples Hospital, ALPOC Glucose Fingerstickon 60-93-7292Ucbhokq [Mass/Vol]250 mg/fQLmrv06 - 110 mg/dLMetroHealth [facility], KYInterpretation and review of laboratory resultsAbProMedica Memorial Hospital, KYGlucose [Mass/Vol]162 mg/yARzif68 - 110 mg/dLMet[facility]Health [facility], KYInterpretation and review of laboratory results AbnormalMet[facility]Health [facility], KYGlucose [Mass/Vol]126 mg/xLGmyq18 - 110 mg/dLMetroHealth [facility], KYInterpretation and review of laboratory resultsAbnoProvidence Hospital, ALBasic Metabolic Panel w/ Reflex to MGon 21-58-9141Euuia gap [Moles/Vol]11 mmol/L9 - 17 mmol/LMKettering Memorial Hospital, KYBun/Cre Pilet77HokllMetroHealth [facility], KYCalcium [Mass/Vol]9.3 mg/dL8.6 - 10.4 mg/dLMetroHealth [facility], [place] Chloride [Moles/Vol]103 mmol/L98 - 107 mmol/LMKettering Memorial Hospital, KYCO2 [Moles/Vol] 24 mmol/L20 - 31 mmol/LMKettering Memorial Hospital, KYCreatinine [Mass/Vol]1.88 mg/dLHigh 0.7 - 1.2 mg/dLMartin [facility]- [place], KYGFR Voedbjwg49 mL/minLow>60[facility]- [place], KYGFR Non- Ennavcwf35 mL/minLow>60[facility]- [place], [place] GFR/1.73 sq M predicted among non-blacks MDRD (S/P/Bld) [Vol rate/Area]NOT REPORTEDMet[facility]Health [facility], KYGFR/1.73 sq M predicted among non-blacks MDRD (S/P/Bld) [Vol rate/Area][facility], KYComment on above:Average GFR for 50-59 years old: 93 mL/min/1.73sq m Chronic Kidney Disease: <60 mL/min/1.73sq m Kidney failure: <15 mL/min/1.73sq m eGFR calculated using average adult body mass. Additional eGFR calculator available at: http://www.MoveEZ/multiple_crcl_2012.htm Glucose [Mass/Vol]151 mg/nQTkay22 - 99 mg/dLMetroHealth [facility], KYInterpretation and review of laboratory resultsAbnormalMartin Memorial Hospital- [place], KYPotassium [Moles/Vol]4.3 mmol/L3.7 - 5.3 mmol/LMCleveland Clinic Eucl[facility]- [place], KYSodium [Moles/Vol]138 mmol/L135 - 144 mmol/LMCleveland Clinic Euclid [facility]- [place], KYUrea nitrogen [Mass/Vol]23 mg/dLHigh6 - 20 mg/dLMetroHealth [facility] Heights [facility], KYEKG 12 Leadon 81-91-3310Hfbdcd Idqv14GOLFhash Health- [place], KYP Kyjg20uogkbpaUkhos Health- [place], KYP-R Izmuhfga949 [facility]- [place], KYQ-T Pmchrqcm230 [facility]- [place], KYQRS Ernrsvme065 [facility]- [place], KYQTc Calculation (Elizabeth)457 [facility]- [place], KYR Bhob52nqzqjrcFrwhn Health- [place], KYT Iwhm40qdsntqgSjliq Health- [place], KYVentricular Gzob08IFGNglne Health- [place], KYEdi, Mhpn Incoming Ekg Results From [facility] - 09/29/2019 6:57 AM EST Normal sinus rhythm Possible Inferior infarct , age undetermined Abnormal ECG When compared with ECG of 27-OCT-2018 12:03, No significant change was foundMetroHealth [facility] Heights [facility], KYNormal sinus rhythm Possible Inferior infarct , age undetermined Abnormal ECG When compared with ECG of 27-OCT-2018 12:03, No significant change was foundMetroHealth [facility], KYGlucose, Whole Bloodon [id number] [Mass/Vol]185 mg/lOVvjo88 - 99 mg/dLMetroHealth [facility], KYInterpretation and review of laboratory resultsAbnoDuncanville, KYGlucose [Mass/Vol]124 mg/kRNafv96 - 99 mg/dLMetroHealth [facility], [place] Interpretation and review of laboratory resultsAbnoProvidence Hospital, KYNM Cardiac Stress Test Nuclear Imagingon 14-27-9936Yxdecxrbm exam is complete. No Radiologist dictation. Please follow up with ordering provider.[facility], MALINIPOC Glucose Fingerstickon 69-77-0063Fycbbrj [Mass/Vol]290 mg/iUKcpn67 - 110 mg/dLMetroHealth [facility] Heights [facility], MALINIInterpretation and review of laboratory resultsAbnoal [facility], KYTroponinon [id number] I.cardiac [Mass/Vol]NOT REPORTEDMetroHealth [facility], MALINICatenin T.cardiac [Mass/Vol]NOT REPORTED<0.03 ng/mL [facility], MALINICatenin, High Uxgmvbookmk81 ng/L0 - 22 ng/LMKettering Memorial Hospital, KYComment on above: High Sensitivity Troponin values cannot be compared with other Troponin methodologies. Patients with high levels of Biotin oral intake (i.e >5mg/day) may have falsely decreased Troponin levels. Samples collected within 8 hours of biotin intake may require additional information for diagnosis. Troponin I.cardiac [Mass/Vol]NOT REPORTEDMetroHealth [facility], ALCatenin T.cardiac [Mass/Vol]NOT REPORTED<0.03 ng/mLMetroHealth [facility], ALTroponin, High Sensitivity 21 ng/L0 - 22 ng/LMKettering Memorial Hospital, KYComment on above: High Sensitivity Troponin values cannot be compared with other Troponin methodologies. Patients with high levels of Biotin oral intake (i.e >5mg/day) may have falsely decreased Troponin levels. Samples collected within 8 hours of biotin intake may require additional information for diagnosis. Troponin I.cardiac [Mass/Vol][facility] Hospitalment on above:Reference Range: <0.03 Within reference range. 0.03-0.09 Possible myocardial damage. Repeat at appropriate intervals to rule out chronic elevation. >= 0.10 Indicative of myocardial damage. Patients with high levels of Biotin oral intake (i.e >5mg/day) may have falsely decreased Troponin T levels. Samples collected within 8 hours of biotin intake may require additional information for diagnosis. Troponin T.cardiac [Mass/Vol]ug/L<0.03 ng/mLEagle Grove, KYComment on above:Troponin T results cannot be compared to Troponin-I results.Troponin, High SensitivityNOT REPORTED0 - 22 ng/LMAnnville, KYAPTEncompass Health Rehabilitation [facility] 30-00-3507dAGT Coag (Bld) [Time]25.3 sMAnnville, KYComment on above: PTT Therapeutic Range: 61.7-88.4 Therapeutic range corresponds to plasma heparin levels of 0.3-0.7 U/mL. Brain Natriuretic Peptideon 07-39-3669Eywemvbtftl peptide B (Bld) [Mass/Vol]Pro- BNP Reference Range:[facility] on above: Rule Out: <300 Fuller Zone: Age <50 300-450 Age 50-75 300-900 Age >75 300-1800 Usually represents mild to moderate HF but other cardiopulmonary causes cannot be ruled out. Rule In: Age <50 >450 Age 50-75 >900 Age >75 >1800 Natriuretic peptide B (Bld) [Mass/Vol]1160 pg/mLHigh<300[place], [place] Comment on above:Pro-BNP results cannot be compared to BNP results.CBCon 90-81-7583Zjzzyzrfhgs distribution width (RBC) [Ratio]18.6 %High12.1 - 15.2 % [place], KYHematocrit (Bld) [Volume fraction]38.9 %Low41 - 53 %[place], KYHemoglobin (Bld) [Mass/Vol]12.7 g/dLLow13.5 - 17.5 g/dLEagle Grove, KYInterpretation and review of laboratory resultsAbnormFulton County Health Center- [place], KYMCH (RBC) [Entitic mass]28.4 pg26 - 34 pgMetroHealth [facility] Heights Medical Center, KYMCHC (RBC) [Mass/Vol]32.6 g/dL31 - 37 g/dLMetroHealth [facility] Heights [facility], KYMCV (RBC) [Entitic vol] 87.2 fL80 - 100 [facility], KYPlatelet mean volume (Bld) [Entitic vol] NOT REPORTED6 - 12 fLMetroHealth Cleveland Heights Medical Center, KYPlatelets (Bld) [#/Vol]326 10*3/[facility], KYRBC (Bld) [#/Vol]4.46 10*6/uLLow4.5 - 5.9 m/[facility], KYWBC (Bld) [#/Vol]6.4 10*3/[facility], KYWBC (Bld) [#/Vol]NOT REPORTED per 100 WBCMetroHealth Cleveland Heights Medical Center, ALCBC Auto Differentialon 39-23-2938Gcqlalacl (Bld) [#/Vol]0.00 10*3/[facility], KYBasophils/100 WBC (Bld)0 %0 - 2 %[facility], KYDifferential TypeYESMKettering Memorial Hospital, KYEosinophils (Bld) [#/Vol] 0.10 10*3/[facility], KYEosinophils/100 WBC (Bld)1 %0 - 5 %[facility], KYErythrocyte distribution width (RBC) [Ratio]18.2 %High12.1 - 15.2 %[facility], KYHematocrit (Bld) [Volume fraction]38.6 %Low41 - 53 %[facility], KYHemoglobin (Bld) [Mass/Vol]12.7 g/dLLow13.5 - 17.5 g/dLMetroHealth [facility], ALInterpretation and review of laboratory resultsAbnoProvidence Hospital, [place] Lymphocytes (Bld) [#/Vol]0.80 10*3/[facility], KYLymphocytes/100 WBC (Bld)11 %Low13 - 44 %[facility]- [place], MALINIMCH (RBC) [Entitic mass]28.7 pg26 - 34 pgMartin Memorial Hospital- [place], MALINIMCHC (RBC) [Mass/Vol]32.8 g/dL31 - 37 g/dLMartin [facility]- [place], MALINIMCV (RBC) [Entitic vol]87.5 fL80 - 100 fLMartin Memorial Hospital- [place], MALINIMonocytes (Bld) [#/Vol]0.40 10*3/uLMartin Memorial Hospital- [place], KYMonocytes/100 WBC (Bld)5 %5 - 9 % [facility]- [place], MALINIPlatelet mean volume (Bld) [Entitic vol]NOT REPORTED6 - 12 fLMartin Memorial Hospital- [place], MALINIPlatelets (Bld) [#/Vol]NOT REPORTEDMartin [facility]- [place], MALINI Platelets (Bld) [#/Vol]318 10*3/uLMartin [facility] Hospital- [place], KYRBC (Bld) [#/Vol]4.41 10*6/uLLow4.5 - 5.9 m/uLMartin Memorial Hospital- [place], MALINIRBC morphology finding Nom (Bld)NOT REPORTEDMartin [facility]- [place], MALINISegmented neutrophils/100 WBC (Bld)83 %High39 - 75 % [facility]- [place], MALINISegs Absolute5.80[facility]- [place], MALINIWBC (Bld) [#/Vol]7.0 10*3/uLMartin [facility] Hospital- [place], KYWBC (Bld) [#/Vol]NOT REPORTEDper 100 WBCMartin Memorial Hospital- [place], MALINIWBC MorphologyNOT REPORTEDMartin [facility] Hospital- [place], MALINIComprehensive Metabolic Panelon 04-79-7746Ahlxbyv [Mass/Vol]4.1 g/dL3.5 - 5.2 g/dLMartin [facility]- [place], [place] Albumin/Globulin [Mass ratio]NOT REPORTEDMartin Memorial Hospital- [place], KYALP [Catalytic activity/Vol]99 U/L40 - 129 U/LMCleveland Clinic Euclid [facility]- [place], KYALT [Catalytic activity/Vol] 12 U/L5 - 41 U/LMCleveland Clinic Euclid Hospital- [place], MALINIAnion gap [Moles/Vol]12 mmol/L9 - 17 mmol/L [facility]- [place], KYAST [Catalytic activity/Vol]12 U/L<40[facility]- [place], [place] Bilirubin Ql (U)0.60 mg/dL0.3 - 1.2 mg/dLMartin [facility]- [place], KYBun/Cre Ratio14 [facility]- [place], KYCalcium [Mass/Vol]10.3 mg/dL8.6 - 10.4 mg/dLEast [facility] [place], KYChloride [Moles/Vol]97 mmol/LLow98 - 107 mmol/LMCleveland Clinic Euclid [facility]- [place], KYCO2 [Moles/Vol]27 mmol/L20 - 31 mmol/LMCleveland Clinic Euclid Hospital- [place], KYCreatinine [Mass/Vol]1.74 mg/dLHigh0.7 - 1.2 mg/dLMetroHealth [facility], KYGFR Xzwbatip31 mL/minLow>60 [facility]- [place], KYGFR Non- Etpdiwof32 mL/minLow>60[facility], [place] GFR/1.73 sq M predicted among non-blacks MDRD (S/P/Bld) [Vol rate/Area]NOT REPORTEDMetroHealth [facility], KYGFR/1.73 sq M predicted among non-blacks MDRD (S/P/Bld) [Vol rate/Area][facility], KYComment on above:Average GFR for 50-59 years old: 93 mL/min/1.73sq m Chronic Kidney Disease: <60 mL/min/1.73sq m Kidney failure: <15 mL/min/1.73sq m eGFR calculated using average adult body mass. Additional eGFR calculator available at: http://www.Langhar.My-Apps/multiple_crcl_2011.htm Glucose [Mass/Vol]210 mg/gKAlcy64 - 99 mg/dLMetroHealth [facility], KYPotassium [Moles/Vol]4.9 mmol/L3.7 - 5.3 mmol/LMCleveland Clinic Eucl[facility] Hospital- [place], KYProtein [Mass/Vol]7.6 g/dL6.4 - 8.3 g/dLMetroHealth [facility], KYSodium [Moles/Vol]136 mmol/L135 - 144 mmol/LMCleveland Clinic Euclid Hospital- [place], KYUrea nitrogen [Mass/Vol]25 mg/dLHigh6 - 20 mg/dLMetroHealth [facility], KYComprehensive Metabolic Panel w/ Reflex to MGon 06-30-6711Pourmfr [Mass/Vol]4 g/dL3.5 - 5.2 g/dLMetroHealth [facility], KYAlbumin/Globulin [Mass ratio] NOT REPORTEDMet[facility]Health [facility], KYALP [Catalytic activity/Vol]106 U/L40 - 129 U/L [facility], KYALT [Catalytic activity/Vol]12 U/L5 - 41 U/LMKettering Memorial Hospital, KYAnion gap [Moles/Vol]14 mmol/L9 - 17 mmol/LMKettering Memorial Hospital, KYAST [Catalytic activity/Vol]13 U/L<40[facility], KYBilirubin Ql (U)0.65 mg/dL 0.3 - 1.2 mg/dLMet[facility]Health [facility], KYBun/Cre Ahqcv29OadlmMetroHealth [facility], KYCalcium [Mass/Vol]9.9 mg/dL8.6 - 10.4 mg/dLMet[facility]Health [facility], KYChloride [Moles/Vol]96 mmol/LLow98 - 107 mmol/LMKettering Memorial Hospital, KYCO2 [Moles/Vol]23 mmol/L20 - 31 mmol/LMKettering Memorial Hospital, KYCreatinine [Mass/Vol]1.75 mg/dLHigh0.7 - 1.2 mg/dL [facility], KYGFR Qoyyzshp62 mL/minLow>60[facility], KYGFR Non- Ltirfhcf10 mL/minLow>60[facility], KYGFR/1.73 sq M predicted among non-blacks MDRD (S/P/Bld) [Vol rate/Area]NOT REPORTEDMet[facility]Health [facility], [place] GFR/1.73 sq M predicted among non-blacks MDRD (S/P/Bld) [Vol rate/Area][facility], KYComment on above:Average GFR for 50-59 years old: 93 mL/min/1.73sq m Chronic Kidney Disease: <60 mL/min/1.73sq m Kidney failure: <15 mL/min/1.73sq m eGFR calculated using average adult body mass. Additional eGFR calculator available at: http://www.MoveEZ/multiple_crcl_2012.htm Glucose [Mass/Vol]367 mg/dLCritically high70 - 99 mg/dLMetroHealth [facility], [place] Potassium [Moles/Vol]4.4 mmol/L3.7 - 5.3 mmol/LMkettering health [facility]- [place], KYProtein [Mass/Vol]7.5 g/dL6.4 - 8.3 g/dLEast [facility] [place], KYSodium [Moles/Vol]133 mmol/L Ael728 - 144 mmol/LMOhio [facility] Surgical [facility] [place], KYUrea nitrogen [Mass/Vol]25 mg/dLHigh6 - 20 mg/dLMetroHealth [facility], KYD-Dimer, Quantitativeon 04-78-4545O-Dimer, Quant4.73 HighMetroHealth [facility] Heights [facility] Center, KYComment on above: Elevated levels of D [...] of 98%). Interpretation and review of laboratory resultsAbnormalMetroHealth [facility] Heights [facility], KYECHO Complete 2D W Doppler W Coloron 86-92-5225Hxz, Mhpn Incoming Cardio Results From [facility]/ - 09/28/2019 4:58 PM EST [facility] Transthoracic Echocardiography Report (TTE) Patient Name LM Date of Study 09/28/2019 LORENZO Nash Date of 1970 Gender Male Age 49 year(s) Race Room Number 0259 Height: 65 inch, 165.1 cm Corporate ID [id number] Weight: 285 pounds, 129.3 kg # Patient Acct [id number] BSA: 2.3 m^2 BMI: 47.42 # kg/m^2 MR # [id number] Sales Host Agnes Champion RT Interpreting Physician Clark Bojorquez Fellow Referring Nurse Practitioner Interpreting Referring Physician Lion Carlson Type of Study TTE procedure:2D Echocardiogram, Color Doppler, Doppler, M-Mode. Procedure Date Date: 09/28/2019 Start: 01:09 PM Study Location: [facility] Indications:Chest pain. Patient Status: Inpatient Height: [...] Peak Gradient: 3.86 mmHg Peak TR Gradient: 5.685941 mmHg Estimated RA Pressure: 5 mmHg Estimated PASP: 10.[address] [facility] Transthoracic Echocardiography Report (TTE) Patient Name LM Date of Study09/28/2019 LORENZO Nash Date of 1970 Gender Male Age 49 year(s) Race Room Number 0259 Height: 65 inch, 165.1 cm Corporate ID [id number] Weight: 285 pounds, 129.3 kg # Patient Acct [id number] BSA: 2.3 m^2 BMI: 47.42 # kg/m^2 MR # [id number] Sales Host RT Andrea Interpreting Physician Clark Bojorquez Fellow Referring Nurse Practitioner Interpreting Referring Physician Lion Carlson Type of Study TTE procedure:2D Echocardiogram, Color Doppler, Doppler, M-Mode. Procedure Date Date: 09/28/2019 Start: 01:09 PM Study Location: [facility] Indications:Chest pain. Patient Status: Inpatient Height: [...] effusion Signature - Electronically signed by RT Andrea(Saad)(M)(CT)([facility])(Sales Host) on 09/28/2019 02:41 PM FINDINGS Left Atrium [...] Peak Gradient: 3.86 mmHg Peak TR Gradient: 5.360411 mmHg Estimated RA Pressure: 5 mmHg Estimated PASP: 10.57 mmHgE[place], [place] Glucose, Whole Bloodon 10-80-8404Rgtqbkd [Mass/Vol]230 mg/rMCqar49 - 99 mg/dL [place], KYInterpretation and review of laboratory resultsAbnoDuncanville, KYGlucose [Mass/Vol]119 mg/ePBroe70 - 99 mg/dLEagle [place], [place] Interpretation and review of laboratory resultsAbWaldron, [place] Glucose [Mass/Vol]214 mg/dRLrqy09 - 99 mg/dLMetroHealth [facility] Center, ALInterpretation and review of laboratory resultsAbWaldron, KYGlucose [Mass/Vol] 272 mg/cAIybc79 - 99 mg/dLMetroHealth [facility], ALInterpretation and review of laboratory resultsAbWaldron, KYHemoglobin A1Con 76-16-8846Gxzutmv [Mass/Vol]186 mg/dLEagle Grove, KYComment on above:The ADA and AACC recommend providing the estimated average glucose result to permit better patient understanding of their HBA1c result. HbA1c (Bld) [Mass fraction]8.1 %High4.8 - 5.9 %[place], [place] Interpretation and review of laboratory resultsAbWaldron, KYLipid Panelon 08-84-1679Idhaolgoxsl [Mass/Vol]139 mg/dL<200[place], KYComment on above: Cholesterol Guidelines: <200 Desirable 200-240 Borderline >240 Undesirable Cholesterol in HDL [Mass/Vol]36 mg/dLLow>40[facility], ALComment on above: HDL Guidelines: <40 Undesirable 40-59 Borderline >59 Desirable Cholesterol in LDL [Mass/Vol]54 mg/dL0 - 130 mg/dLMetroHealth [facility] Heights [facility] Center, ALComment on above: LDL Guidelines: <100 Desirable 100-129 Near to/above Desirable 130-159 Borderline >159 Undesirable Direct (measured) LDL and calculated LDL are not interchangeable tests. Cholesterol in VLDL [Mass/Vol]NOT REPORTEDHigh1 - 30 mg/dLMetroHealth [facility], [place] Cholesterol.total/Cholesterol in HDL [Mass ratio]3.9 {ratio}<5[facility], ALTriglyceride [Mass/Vol]245 mg/dLHigh<150[facility], ALComment on above: Triglyceride Guidelines: <150 Desirable 150-199 Borderline 200-499 High >499 Very high Based on AHA Guidelines for fasting triglyceride, August 2012. Microscopic Urinalysison 59-88-1161Knzqaujrb, UANOT REPORTEDNoneMey Health- [place], KYBacteria, UANOT REPORTEDNoneMey Health- [place], KYCasts UANOT REPORTED/LPF [facility]- [place], KYCrystals UANOT REPORTEDNone /HPFMercy Health- [place], [place] Epithelial Cells UANOT REPORTED/HPFMercy Health- [place], KYMucus, UANOT REPORTEDNone [facility]- [place], KYOther Observations UANOT REPORTEDNOT REQ.[facility]- [place], KYRBC (U) [#/Vol]0 TO 2[facility]- [place], KYRenal Epithelial, UrineNOT REPORTED0 /HPFMercy Health- [place], KYTrichomonas, UANOT REPORTEDNoneMercy Health- [place], KYWBC, UANOT REPORTED0 /HPFMercy Health- [place], KYYeast, UANOT REPORTEDNoneMercy Health- [place], [place]-[facility]- [place], KYOtheron 80-75-9175Eifkhtydzdgrvb and review of laboratory resultsAbnoVidant Pungo Hospital [facility]- [place], ALImmature granulocytes (Bld) [#/Vol]NOT REPORTEDMccullough-Hyde [facility]- [place], ALInterpretation and review of laboratory resultsAbnormalMetroHealth [facility], MALINIPatient Fasting?on 57-66-0159Aijsmbf Fasting? yesMetroHealth [facility] Heights Medical CenterMALINIProtime-INRon 69-07-3878PMZ Coag (PPP) [Relative time]1.0 {INR}[facility] CenterMALINIRay County Memorial Hospitalbryan on above: * THERAPY INDICATIONS * REFERENCE RANGES Pts not on anti-coagulants 1.0 - 1.5 INR Low risk pts on anti-coagulants 2.0 - 3.0 INR High risk pts on anti-coagulants 2.5 - 3.5 INR Prevention of atrial thrombo-embolism 3.0 - 4.5 INR PT Coag (PPP) [Time]9.7 [facility] HospitalDinoraninon 11-05-1731Aunnzsst I.cardiac [Mass/Vol][facility] on above:Reference Range: <0.03 Within reference range. 0.03-0.09 Possible myocardial damage. Repeat at appropriate intervals to rule out chronic elevation. >= 0.10 Indicative of myocardial damage. Patients with high levels of Biotin oral intake (i.e >5mg/day) may have falsely decreased Troponin T levels. Samples collected within 8 hours of biotin intake may require additional information for diagnosis. Troponin T.cardiac [Mass/Vol]ug/L<0.03 ng/mLHarrington Memorial Hospital on above:Troponin T results cannot be compared to Troponin-I results.Troponin, High SensitivityNOT REPORTED0 - 22 ng/[place], KYCatenin I.cardiac [Mass/Vol][facility] on above:Reference Range: <0.03 Within reference range. 0.03-0.09 Possible myocardial damage. Repeat at appropriate intervals to rule out chronic elevation. >= 0.10 Indicative of myocardial damage. Patients with high levels of Biotin oral intake (i.e >5mg/day) may have falsely decreased Troponin T levels. Samples collected within 8 hours of biotin intake may require additional information for diagnosis. Troponin T.cardiac [Mass/Vol]ug/L<0.03 ng/mLHarrington Memorial Hospital on above:Troponin T results cannot be compared to Troponin-I results.Troponin, High SensitivityNOT REPORTED0 - 22 ng/LMercy Health- [place], KYTroponin I.cardiac [Mass/Vol][facility], KYComment on above:Reference Range: <0.03 Within reference range. 0.03-0.09 Possible myocardial damage. Repeat at appropriate intervals to rule out chronic elevation. >= 0.10 Indicative of myocardial damage. Patients with high levels of Biotin oral intake (i.e >5mg/day) may have falsely decreased Troponin T levels. Samples collected within 8 hours of biotin intake may require additional information for diagnosis. Troponin T.cardiac [Mass/Vol]ug/L<0.03 ng/mLMet[facility]Health [facility], KYComment on above:Troponin T results cannot be compared to Troponin-I results.Troponin, High SensitivityNOT REPORTED0 - 22 ng/LMKettering Memorial Hospital, KYUrinalysis, reflex to microscopicon 85-27-1483Snvxzzynx UrineNegativeNEGATIVEMartin Memorial Hospital- [place], [place] Color, UAYELLOWYELLOWMartin Memorial Hospital- [place], KYGlucose, Eb9041 mg/dLAbnormalNEGATIVE [facility], KYInterpretation and review of laboratory resultsAbnormalMccullough-[facility]- [place], KYKetones Ql (U)NegativeNEGATIVEMccullough-Hyde Memorial Hospital [facility]- [place], KYLeukocyte esterase Test strip Ql (U)NegativeNEGATIVEMartin Memorial Hospital- [place], KYNitrite, Urine NegativeNEGATIVEMccullough-Hyde Memorial [facility]- [place], KYpH, UA6.0MerMultiCare [facility]- [place], KYProtein (U) [Mass/Vol]3+AbnormalNEGATIVEMccullough-Hyde Memorial Hospital [facility]- [place], KYSpecific [place], UA1.020MerMulti[facility]- [place], KYTurbidity UACLEARCLEARMerMultiCare Health- [place], KYUrinalysis CommentsMerMultiCare Health- [place], KYUrine HgbTRACEAbnormalNEGATIVEMartin Memorial Hospital- [place], KYUrobilinogen, UrineNormalNormalMartin [facility]- [place], KYXR CHEST PORTABLEon 97-66-6115EIGZ: XR CHEST PORTABLE HISTORY: Reason for exam:->cp Chest pain. COMPARISON: CT chest 09/03/2019 showed a T4 fracture and a large lateral left chest wall hematoma. Chest x-ray 10/10/2016. TECHNIQUE: AP portable chest 1038 hours. FINDINGS: Heart size upper normal unchanged. Lungs clear. Bony thorax normal.[facility], KYNegative portable chest.[facility], KYEdi, Mhpn Incoming Radiant Results From [employer] - 09/28/2019 11:11 AM EST EXAM: XR CHEST PORTABLE HISTORY: Reason for exam:->cp Chest pain. COMPARISON: CT chest 09/03/2019 showed a T4 fracture and a large lateral left chest wall hematoma. Chest x-ray 10/10/2016. TECHNIQUE: AP portable chest 1038 hours. FINDINGS: Heart size upper normal unchanged. Lungs clear. Bony thorax normal. IMPRESSION: Negative portable chest. [facility], ALCBC Auto Differentialon 39-07-0180Mnvyeuyid (Bld) [#/Vol] 0.00 10*3/[facility], KYBasophils/100 WBC (Bld)0 %0 - 2 %[facility], ALDifferential TypeYESMKettering Memorial Hospital, KYEosinophils (Bld) [#/Vol]0.20 10*3/[facility], KYEosinophils/100 WBC (Bld)3 %0 - 5 %[facility], ALErythrocyte distribution width (RBC) [Ratio]17.7 %High12.1 - 15.2 %[facility], ALHematocrit (Bld) [Volume fraction]26.7 %Low41 - 53 %[facility], ALHemoglobin (Bld) [Mass/Vol]8.8 g/dLLow13.5 - 17.5 g/dLMetroHealth [facility], [place] Interpretation and review of laboratory resultsAbnormalMetroHealth [facility], [place] Lymphocytes (Bld) [#/Vol]1.10 10*3/[facility], KYLymphocytes/100 WBC (Bld)13 %13 - 44 %[facility], KYMCH (RBC) [Entitic mass]28.3 pg26 - 34 pg [facility], KYMCHC (RBC) [Mass/Vol]32.8 g/dL31 - 37 g/dLMetroHealth [facility] Heights [facility] Center, KYMCV (RBC) [Entitic vol]86.2 fL80 - 100 fLMetroHealth Cleveland Heights Medical Center, KYMonocytes (Bld) [#/Vol]0.60 10*3/uLMercy Health- [place], KYMonocytes/100 WBC (Bld)6 %5 - 9 %[facility]- [place], KYPlatelet mean volume (Bld) [Entitic vol]NOT REPORTED6 - 12 fLMercy Health- [place], KYPlatelets (Bld) [#/Vol]NOT REPORTEDMercy Health- [place], KYPlatelets (Bld) [#/Vol]466 10*3/uLHighMercy Health- [place], KYRBC (Bld) [#/Vol]3.10 10*6/uLLow 4.5 - 5.9 m/uLUniversity Hospitals Health Systemcy Health- [place], KYRBC morphology finding Nom (Bld)NOT REPORTED [facility]- [place], KYSegmented neutrophils/100 WBC (Bld)78 %High39 - 75 %[facility]- [place], KYSegs Absolute6.90HighUniversity Hospitals Health Systemcy Health- [place], KYWBC (Bld) [#/Vol]8.9 10*3/uLUniversity Hospitals Health Systemcy [facility]- [place], KYWBC (Bld) [#/Vol]NOT REPORTEDper 100 WBCUniversity Hospitals Health Systemcy Health- [place], KYWBC MorphologyNOT REPORTEDUniversity Hospitals Health Systemcy [facility]- [place], KYComprehensive Metabolic Panelon [id number] [Mass/Vol]3.2 g/dLLow3.5 - 5.2 g/dLUniversity Hospitals Health Systemcy [facility]- [place], KYAlbumin/Globulin [Mass ratio]NOT REPORTEDMccullough[facility]- [place], KYALP [Catalytic activity/Vol]90 U/L40 - 129 U/LMercy Health- [place], KYALT [Catalytic activity/Vol] 21 U/L5 - 41 U/LMercy Health- [place], KYAnion gap [Moles/Vol]14 mmol/L9 - 17 mmol/L [facility]- [place], KYAST [Catalytic activity/Vol]14 U/L<40[facility] [place], [place] Bilirubin Ql (U)0.68 mg/dL0.3 - 1.2 mg/dLMercy [facility]- [place], KYBun/Cre Ratio15 [facility] [place], KYCalcium [Mass/Vol]9.6 mg/dL8.6 - 10.4 mg/dLUniversity Hospitals Health Systemcy [facility]- [place], KYChloride [Moles/Vol]98 mmol/L98 - 107 mmol/LMercy Health- [place], ALCO2 [Moles/Vol]22 mmol/L20 - 31 mmol/[facility], ALCreatinine [Mass/Vol]1.85 mg/dLHigh0.7 - 1.2 mg/dLMet[facility]Health [facility], KYGFR Cvxsnotx69 mL/minLow>60 [facility], KYGFR Non- Zxxtkhak73 mL/minLow>60[facility], [place] GFR/1.73 sq M predicted among non-blacks MDRD (S/P/Bld) [Vol rate/Area]NOT REPORTEDMet[facility]Health [facility], ALGFR/1.73 sq M predicted among non-blacks MDRD (S/P/Bld) [Vol rate/Area][facility], ALComment on above:Average GFR for 50-59 years old: 93 mL/min/1.73sq m Chronic Kidney Disease: <60 mL/min/1.73sq m Kidney failure: <15 mL/min/1.73sq m eGFR calculated using average adult body mass. Additional eGFR calculator available at: http://www.MoveEZ/multiple_crcl_2012.htm Glucose [Mass/Vol]392 mg/dLCritically high70 - 99 mg/dLEagle [place], [place] Interpretation and review of laboratory resultsAbnormOhioHealth Doctors Hospital, [place] Potassium [Moles/Vol]4.2 mmol/L3.7 - 5.3 mmol/[facility], ALProtein [Mass/Vol]7.1 g/dL6.4 - 8.3 g/dLMetroHealth [facility], ALSodium [Moles/Vol]134 mmol/L Nth776 - 144 mmol/[facility], ALUrea nitrogen [Mass/Vol]27 mg/dLHigh6 - 20 mg/dLEagle [place], KYHemoglobin and Hematocrit, Bloodon 09-12-2019 Hematocrit (Bld) [Volume fraction]26.7 %Low41 - 53 %[place], [place] Hemoglobin (Bld) [Mass/Vol]8.8 g/dLLow13.5 - 17.5 g/dLEagle [place], [place] Interpretation and review of laboratory resultsAbnoChildren's Hospital of Columbus KYOther on [id number] granulocytes (Bld) [#/Vol]NOT REPORTED0 %[facility], ALBASI METABOLIC PANELon [id number] gap [Moles/Vol]10 mmol/L9 - 17 mmol/L [facility]- [place], KYBun/Cre RatioNOT REPORTEDMartin [facility]- [place], KYCalcium [Mass/Vol]8.9 mg/dL8.6 - 10.4 mg/dLMetroHealth [facility], KYChloride [Moles/Vol]100 mmol/L98 - 107 mmol/LMCleveland Clinic [facility]- [place], KYCO2 [Moles/Vol]25 mmol/L20 - 31 mmol/L [facility], KYCreatinine [Mass/Vol]1.61 mg/dLHigh0.7 - 1.2 mg/dLMetroHealth [facility], KYGFR Qapjkzxr84 mL/minLow>60[facility]- [place], KYGFR Non- Lesxecmb55 mL/minLow>60[facility], KYGFR/1.73 sq M predicted among non-blacks MDRD (S/P/Bld) [Vol rate/Area][facility], KYComment on above: Average GFR for 50-59 years old: 93 mL/min/1.73sq m Chronic Kidney Disease: <60 mL/min/1.73sq m Kidney failure: <15 mL/min/1.73sq m eGFR calculated using average adult body mass. Additional eGFR calculator available at: http://www.Langhar.My-Apps/multiple_crcl_2011.htm GFR/1.73 sq M predicted among non-blacks MDRD (S/P/Bld) [Vol rate/Area]NOT REPORTEDMet[facility]Health [facility], KYGlucose [Mass/Vol]102 mg/sODewb86 - 99 mg/dLMetroHealth [facility], KYInterpretation and review of laboratory resultsAbnormFulton County Health Center- [place], KYPotassium [Moles/Vol]4.0 mmol/L3.7 - 5.3 mmol/LMCleveland Clinic Euclid [facility]- [place], KYSodium [Moles/Vol]135 mmol/L135 - 144 mmol/LMCleveland Clinic Euclid Hospital- [place], KYUrea nitrogen [Mass/Vol]22 mg/dLHigh6 - 20 mg/dLMetroHealth [facility], KYCBC Auto Differentialon [id number] (Bld) [#/Vol]0.03 10*3/[facility]- [place], KYBasophils/100 WBC (Bld)0 %0 - 2 %[facility], KYDifferential TypeNOT REPORTEDMartin [facility]- [place], KYEosinophils (Bld) [#/Vol]0.17 10*3/[facility] [place], [place] Eosinophils/100 WBC (Bld)2 %1 - 4 %[facility]- [place], KYErythrocyte distribution width (RBC) [Ratio]17.1 %High11.8 - 14.4 %[facility], KYHematocrit (Bld) [Volume fraction]29.4 %Low40.7 - 50.3 %[facility], KYHemoglobin (Bld) [Mass/Vol]8.7 g/dLLow13 - 17 g/dLMetroHealth [facility], KYImmature granulocytes (Bld) [#/Vol]1 %Xaod5HwglcEast [facility] City Hospital [place], KYImmature granulocytes (Bld) [#/Vol]0.12 10*3/[facility]- [place], KYInterpretation and review of laboratory results AbnormalMetroHealth [facility], KYLymphocytes (Bld) [#/Vol]1.32 10*3/[facility]- [place], KYLymphocytes/100 WBC (Bld)13 %Low24 - 43 %[facility], KYMCH (RBC) [Entitic mass]27.9 pg25.2 - 33.5 pgMetroHealth [facility], KYMCHC (RBC) [Mass/Vol]29.6 g/dL28.4 - 34.8 g/dLEast [facility] [place], KYMCV (RBC) [Entitic vol]94.2 fL82.6 - 102.9 fLMetroHealth Cleveland Heights Medical Center, KYMonocytes (Bld) [#/Vol]0.69 10*3/uLMartin Memorial Hospital- [place], KYMonocytes/100 WBC (Bld)7 %3 - 12 %[facility], KYPlatelet mean volume (Bld) [Entitic vol]10.0 fL8.1 - 13.5 fLMetroHealth [facility] Heights [facility] Center, ALPlatelets (Bld) [#/Vol]NOT REPORTEDMet[facility], ALPlatelets (Bld) [#/Vol]397 10*3/uLMetroHealth [facility], ALRBC (Bld) [#/Vol]3.12 10*6/uLLow4.21 - 5.77 m/uLMetroHealth [facility], ALRB morphology finding Nom (Bld)ANISOCYTOSIS PRESENTEagle Grove, [place] Segmented neutrophils/100 WBC (Bld)77 %High36 - 65 %[facility], ALSegs Absolute7.67[facility], ALWBC (Bld) [#/Vol]0.0 10*3/uL0.0 per 100 WBCMetroHealth [facility] Heights Medical Center, ALWBC (Bld) [#/Vol]10.0 10*3/uLMetroHealth [facility], ALWBC Morphology NOT REPORTEDMet[facility], ALHemoglobin and Hematocrit, Bloodon 09-09-2019 Hematocrit (Bld) [Volume fraction]24.6 %Low40.7 - 50.3 %[place], [place] Hemoglobin (Bld) [Mass/Vol]7.5 g/dLLow13 - 17 g/dLE[place], [place] Interpretation and review of laboratory resultsAbnormalEagle [place], KYPO Glucose Fingerstickon 24-74-8747Cdohohg [Mass/Vol]105 mg/dL75 - 110 mg/dLEagle [place], KYBasic Metabolic Panelon 12-56-9249Kjrfr gap [Moles/Vol]16 mmol/L9 - 17 mmol/LMKettering Memorial Hospital, ALBun/Cre RatioNOT REPORTEDMet[facility]Health [facility], [place] Calcium [Mass/Vol]8.7 mg/dL8.6 - 10.4 mg/dLMet[facility]Health [facility], ALChloride [Moles/Vol]103 mmol/L98 - 107 mmol/LMKettering Memorial Hospital, ALCO2 [Moles/Vol]20 mmol/L 20 - 31 mmol/LMKettering Memorial Hospital, ALCreatinine [Mass/Vol]1.86 mg/dLHigh0.7 - 1.2 mg/dLEagle [place], KYGFR Ltkrumsf64 mL/minLow>60[place], [place] GFR Non- Gjrzarcx61 mL/minLow>60[facility], ALGFR/1.73 sq M predicted among non-blacks MDRD (S/P/Bld) [Vol rate/Area]NOT REPORTEDMet[facility], ALGFR/1.73 sq M predicted among non-blacks MDRD (S/P/Bld) [Vol rate/Area][place], KYComment on above:Average GFR for 50-59 years old: 93 mL/min/1.73sq m Chronic Kidney Disease: <60 mL/min/1.73sq m Kidney failure: <15 mL/min/1.73sq m eGFR calculated using average adult body mass. Additional eGFR calculator available at: http://www.MoveEZ/multiple_crcl_2012.htm Glucose [Mass/Vol]186 mg/bJQyfa14 - 99 mg/dLEagle [place], KYInterpretation and review of laboratory resultsAbnoDuncanville, KYPotassium [Moles/Vol]4.8 mmol/L3.7 - 5.3 mmol/LMAnnville, KYSodium [Moles/Vol]139 mmol/L135 - 144 mmol/LMAnnville, KYUrea nitrogen [Mass/Vol]22 mg/dLHigh6 - 20 mg/dLE[place], KYHemoglobin and Hematocrit, Bloodon 09-08-2019 Hematocrit (Bld) [Volume fraction]24.2 %Low40.7 - 50.3 %[place], [place] Hemoglobin (Bld) [Mass/Vol]7.4 g/dLLow13 - 17 g/dLE[place], [place] Interpretation and review of laboratory resultsAbnoDuncanville, [place] Hematocrit (Bld) [Volume fraction]25.4 %Low40.7 - 50.3 %[place], [place] Hemoglobin (Bld) [Mass/Vol]7.6 g/dLLow13 - 17 g/dLE[place], [place] Interpretation and review of laboratory resultsAbProMedica Memorial Hospital, [place] Hematocrit (Bld) [Volume fraction]25.1 %Low40.7 - 50.3 %[facility], [place] Hemoglobin (Bld) [Mass/Vol]7.7 g/dLLow13 - 17 g/dLMet[facility]Health [facility], [place] Interpretation and review of laboratory resultsAbnoProvidence Hospital, ALPO Glucose Fingerstickon [id number] [Mass/Vol]189 mg/nOOaof04 - 110 mg/dL [facility], ALInterpretation and review of laboratory resultsAbnoProvidence Hospital, ALGlucose [Mass/Vol]228 mg/iHYvag15 - 110 mg/dLMet[facility]Health [facility], [place] Interpretation and review of laboratory resultsAbnoProvidence Hospital, [place] Glucose [Mass/Vol]184 mg/jQNxne60 - 110 mg/dLMet[facility]Health [facility], ALInterpretation and review of laboratory resultsAbProMedica Memorial Hospital, ALGlucose [Mass/Vol] 158 mg/rYLnnq34 - 110 mg/dLMet[facility]Health [facility], ALInterpretation and review of laboratory resultsAbProMedica Memorial Hospital, ALTYPE AND SCREENon [id number]/Rh NegativeMet[facility]Health [facility], ALArm Band NumberBE [id number] [facility], ALBlood product type Nom (BPU)Leukocyte Reduced Red CellMetroHealth [facility], ALCrossmatch ResultCOMPATIBLEMet[facility]Health [facility], ALDispense StatusTRANSFUSEDMKettering Memorial Hospital, ALExpiration Date09/07/2019[facility], ALTransfusion StatusOK TO TRANSFUSE [facility], KYUnit Ekevlod9IimeaMetroHealth [facility], ALUnit [id number] [facility], ALBasi Metabolic Panel w/ Reflex to MGon [id number] gap [Moles/Vol]11 mmol/L9 - 17 mmol/LMKettering Memorial Hospital, KYBun/Cre RatioNOT REPORTED [facility], ALCalcium [Mass/Vol]8.8 mg/dL8.6 - 10.4 mg/dLMet[facility]Health [facility], ALChloride [Moles/Vol]103 mmol/L98 - 107 mmol/[facility]- [place], KYCO2 [Moles/Vol]23 mmol/L20 - 31 mmol/LMkettering health greene [facility]- [place], KYCreatinine [Mass/Vol]1.82 mg/dLHigh0.7 - 1.2 mg/dLMet[facility]Health [facility], KYGFR Vrpcohjs32 mL/minLow>60 [facility] [place], KYGFR Non- Bsxbtnqj40 mL/minLow>60[facility] [place], [place] GFR/1.73 sq M predicted among non-blacks MDRD (S/P/Bld) [Vol rate/Area]NOT REPORTEDMet[facility]Health [facility], KYGFR/1.73 sq M predicted among non-blacks MDRD (S/P/Bld) [Vol rate/Area][facility], KYComment on above:Average GFR for 50-59 years old: 93 mL/min/1.73sq m Chronic Kidney Disease: <60 mL/min/1.73sq m Kidney failure: <15 mL/min/1.73sq m eGFR calculated using average adult body mass. Additional eGFR calculator available at: http://www.MoveEZ/multiple_crcl_2012.htm Glucose [Mass/Vol]163 mg/kPAytu98 - 99 mg/dLMet[facility]Health [facility], KYInterpretation and review of laboratory resultsAbnormalMet[facility]Health [facility], KYPotassium [Moles/Vol]4.8 mmol/L3.7 - 5.3 mmol/[facility]- [place], KYSodium [Moles/Vol]137 mmol/L135 - 144 mmol/[facility]- [place], KYUrea nitrogen [Mass/Vol]24 mg/dLHigh6 - 20 mg/dLMet[facility]Health [facility], KYCBC Auto Differentialon 97-12-0593Srpluqhgt (Bld) [#/Vol]0.03 10*3/[facility] [place], KYBasophils/100 WBC (Bld)0 %0 - 2 %[facility], KYDifferential TypeNOT REPORTEDMet[facility], KYEosinophils (Bld) [#/Vol]0.16 10*3/uLEast [facility] [place], KYEosinophils/100 WBC (Bld)2 %1 - 4 %[facility], ALErythrocyte distribution width (RBC) [Ratio]16.4 %High11.8 - 14.4 %[facility], MALINIHematocrit (Bld) [Volume fraction]23.2 %Low40.7 - 50.3 % [facility], ALHemoglobin (Bld) [Mass/Vol]6.9 g/dLCritically low13 - 17 g/dLMet[facility]Health [facility], ALImmature granulocytes (Bld) [#/Vol]1 %Yvqp9GhgjbMetroHealth [facility], ALImmature granulocytes (Bld) [#/Vol]0.07 10*3/[facility], [place] Interpretation and review of laboratory resultsAbnormalMetroHealth [facility], [place] Lymphocytes (Bld) [#/Vol]1.37 10*3/[facility], ALLymphocytes/100 WBC (Bld)14 %Low24 - 43 %[facility], ALMCH (RBC) [Entitic mass]27.0 pg25.2 - 33.5 pgMetroHealth [facility], ALMCHC (RBC) [Mass/Vol]29.7 g/dL28.4 - 34.8 g/dLEagle [place], KYMCV (RBC) [Entitic vol]90.6 fL82.6 - 102.9 fLE[place], [place] Monocytes (Bld) [#/Vol]0.84 10*3/[facility], MALINIMonocytes/100 WBC (Bld)8 %3 - 12 %[facility], MALINIPlatelet mean volume (Bld) [Entitic vol]10.3 fL8.1 - 13.5 fLMetroHealth [facility] Heights Medical Center, KYPlatelets (Bld) [#/Vol]291 10*3/[facility], KYPlatelets (Bld) [#/Vol]NOT REPORTED[facility], ALRBC (Bld) [#/Vol]2.56 10*6/uLLow4.21 - 5.77 m/[facility], ALRBC morphology finding Nom (Bld) ANISOCYTOSIS PRESENTMet[facility]Health [facility], KYSegmented neutrophils/100 WBC (Bld)75 % High36 - 65 %[facility], KYSegs Absolute7.54[facility], KYWBC (Bld) [#/Vol]10.0 10*3/uLMetroHealth [facility], KYWBC (Bld) [#/Vol]0.2 10*3/uLHigh0.0 per 100 WBCMetroHealth [facility] Center, KYWBC MorphologyNOT REPORTEDMet[facility], [place] Hemoglobin and Hematocrit, Bloodon [id number] (Bld) [Volume fraction] 25.8 %Low40.7 - 50.3 %[facility], KYHemoglobin (Bld) [Mass/Vol]7.6 g/dLLow 13 - 17 g/dLMet[facility]Health [facility], KYInterpretation and review of laboratory results AbnormalMet[facility]Health [facility], ALHematocrit (Bld) [Volume fraction]23.5 %Low40.7 - 50.3 %[facility], KYHemoglobin (Bld) [Mass/Vol]7.1 g/dLLow13 - 17 g/dL [facility], KYInterpretation and review of laboratory resultsAbProMedica Memorial Hospital, ALPO Glucose Fingerstickon 64-50-0302Buedwpz [Mass/Vol]248 mg/dL High75 - 110 mg/dLMet[facility]Health [facility], KYInterpretation and review of laboratory resultsAbWaldron, KYGlucose [Mass/Vol]197 mg/mZXmas09 - 110 mg/dL [facility], KYInterpretation and review of laboratory resultsAbProMedica Memorial Hospital, ALGlucose [Mass/Vol]253 mg/fHBqfn67 - 110 mg/dLMet[facility]Health [facility], [place] Interpretation and review of laboratory resultsAbProMedica Memorial Hospital, [place] Glucose [Mass/Vol]269 mg/jBEnxr82 - 110 mg/dLMet[facility]Health [facility], ALInterpretation and review of laboratory resultsAbProMedica Memorial Hospital, ALGlucose [Mass/Vol] 155 mg/jMQdct17 - 110 mg/dLMet[facility]Health [facility], KYInterpretation and review of laboratory resultsAbnormalMet[facility]Health [facility], KYBasi Metabolic Panel w/ Reflex to MGon 01-53-0432Nyhgg gap [Moles/Vol]12 mmol/L9 - 17 mmol/LMCleveland Clinic Eucl[facility] Hospital- [place], [place] Bun/Cre RatioNOT REPORTEDMet[facility], KYCalcium [Mass/Vol]8.8 mg/dL8.6 - 10.4 mg/dLMet[facility]Health [facility], KYChloride [Moles/Vol]101 mmol/L98 - 107 mmol/LMKettering Memorial Hospital, KYCO2 [Moles/Vol]22 mmol/L20 - 31 mmol/LMKettering Memorial Hospital, [place] Creatinine [Mass/Vol]1.87 mg/dLHigh0.7 - 1.2 mg/dLMet[facility]Health [facility], KYGFR Mrbayywo23 mL/minLow>60[facility], KYGFR Non- Nsfyysgu49 mL/minLow>60[facility], KYGFR/1.73 sq M predicted among non-blacks MDRD (S/P/Bld) [Vol rate/Area]NOT REPORTED[facility], KYGFR/1.73 sq M predicted among non-blacks MDRD (S/P/Bld) [Vol rate/Area][facility], KYComment on above:Average GFR for 50-59 years old: 93 mL/min/1.73sq m Chronic Kidney Disease: <60 mL/min/1.73sq m Kidney failure: <15 mL/min/1.73sq m eGFR calculated using average adult body mass. Additional eGFR calculator available at: http://www.Langhar.My-Apps/multiple_crcl_2011.htm Glucose [Mass/Vol]173 mg/tYFtpm47 - 99 mg/dLMetroHealth [facility], KYInterpretation and review of laboratory resultsAbnormOhioHealth Doctors Hospital, KYPotassium [Moles/Vol]4.4 mmol/L3.7 - 5.3 mmol/LMKettering Memorial Hospital, KYSodium [Moles/Vol]135 mmol/L135 - 144 mmol/LMKettering Memorial Hospital, KYUrea nitrogen [Mass/Vol]28 mg/dLHigh6 - 20 mg/dLMetroHealth [facility], KYCBC Auto Differentialon [id number] (Bld) [#/Vol]10*3/[facility]- [place], KYBasophils/100 WBC (Bld)0 %0 - 2 %[facility], KYDifferential TypeNOT REPORTEDEast [facility] [place], KYEosinophils (Bld) [#/Vol]0.10 10*3/[facility]- [place], KYEosinophils/100 WBC (Bld)1 %1 - 4 %[facility], KYErythrocyte distribution width (RBC) [Ratio]16.3 %High11.8 - 14.4 %[facility], KYHematocrit (Bld) [Volume fraction]24.2 %Low40.7 - 50.3 % [facility]- [place], ALHemoglobin (Bld) [Mass/Vol]7.3 g/dLLow13 - 17 g/dLMetroHealth [facility], ALImmature granulocytes (Bld) [#/Vol]1 %Tyaz[address] [place] [address], [place] Immature granulocytes (Bld) [#/Vol]0.07 10*3/[facility]- [place], MALINI Interpretation and review of laboratory resultsAbnormOhioHealth Doctors Hospital, [place] Lymphocytes (Bld) [#/Vol]1.37 10*3/[facility]- [place], KYLymphocytes/100 WBC (Bld)11 %Low24 - 43 %[facility], ALMCH (RBC) [Entitic mass]27.2 pg25.2 - 33.5 pgMetroHealth [facility], ALMCHC (RBC) [Mass/Vol]30.2 g/dL28.4 - 34.8 g/dLMet[facility]Health [facility], KYMCV (RBC) [Entitic vol]90.3 fL82.6 - 102.9 fLMetroHealth [facility] Center, [place] Monocytes (Bld) [#/Vol]1.00 10*3/[facility]- [place], KYMonocytes/100 WBC (Bld)8 %3 - 12 %[facility], KYPlatelet mean volume (Bld) [Entitic vol]10.3 fL8.1 - 13.5 fLMetroHealth [facility] Heights [facility], KYPlatelets (Bld) [#/Vol]287 10*3/uLMetroHealth [facility], MALINIPlatelets (Bld) [#/Vol]NOT REPORTED[facility], ALRBC (Bld) [#/Vol]2.68 10*6/uLLow4.21 - 5.77 m/uLMetroHealth [facility], ALRBC morphology finding Nom (Bld) ANISOCYTOSIS PRESENTMetroHealth [facility], ALSegmented neutrophils/100 WBC (Bld)79 % High36 - 65 %[facility], ALSegs Absolute9.47HighMetroHealth [facility], ALWBC (Bld) [#/Vol]0.0 10*3/uL0.0 per 100 WBCMetroHealth [facility] Heights [facility] Center, ALWBC (Bld) [#/Vol]12.0 10*3/uLHighMetroHealth [facility], ALWBC MorphologyNOT REPORTEDMet[facility], [place] Hemoglobin and Hematocrit, Bloodon [id number] (Bld) [Volume fraction] 24.5 %Low40.7 - 50.3 %[place], KYHemoglobin (Bld) [Mass/Vol]7.2 g/dLLow 13 - 17 g/dLMetroHealth [facility], ALInterpretation and review of laboratory results AbnormalEagle [place], KYPO Glucose Fingerstickon [id number] [Mass/Vol]222 mg/cZXaea56 - 110 mg/dLMetroHealth [facility], ALInterpretation and review of laboratory resultsAbnormAurelia, KYGlucose [Mass/Vol]239 mg/aYMbck77 - 110 mg/dLMet[facility]Health [facility], ALInterpretation and review of laboratory resultsAbnormAurelia, KYGlucose [Mass/Vol]171 mg/wTPztj82 - 110 mg/dLMet[facility]Health [facility], ALInterpretation and review of laboratory results AbnormalE[place], KYBasic Metabolic Panel w/ Reflex to MGon 09-05-2019 Anion gap [Moles/Vol]11 mmol/L9 - 17 mmol/LMKettering Memorial Hospital, ALBun/Cre RatioNOT REPORTEDMet[facility]Health [facility], ALCalcium [Mass/Vol]8.7 mg/dL8.6 - 10.4 mg/dL[facility]- [place], KYChloride [Moles/Vol]98 mmol/L98 - 107 mmol/LMercy Health- [place], [place] CO2 [Moles/Vol]24 mmol/L20 - 31 mmol/LMercy Health- [place], KYCreatinine [Mass/Vol] 2.29 mg/dLHigh0.7 - 1.2 mg/dLUniversity [facility]als [facility] Systemcy [facility]- [place], KYGFR Vfqzsxrl55 mL/min Low>60[facility]- [place], KYGFR Non- Vavgconc70 mL/minLow>60[facility]- [place], KYGFR/1.73 sq M predicted among non-blacks MDRD (S/P/Bld) [Vol rate/Area] [facility]- [place], KYComment on above:Average GFR for 50-59 years old: 93 mL/min/1.73sq m Chronic Kidney Disease: <60 mL/min/1.73sq m Kidney failure: <15 mL/min/1.73sq m eGFR calculated using average adult body mass. Additional eGFR calculator available at: http://www.MoveEZ/multiple_crcl_2012.htm GFR/1.73 sq M predicted among non-blacks MDRD (S/P/Bld) [Vol rate/Area]NOT REPORTED[facility]- [place], KYGlucose [Mass/Vol]254 mg/bSDzfp70 - 99 mg/dLMartin [facility]- [place], KYInterpretation and review of laboratory resultsAbnormalMerMultiCare Health- [place], KYPotassium [Moles/Vol]4.8 mmol/L3.7 - 5.3 mmol/LMmer[facility] health [address] [facility] centery [facility]- [place], KYSodium [Moles/Vol]133 mmol/JGgo825 - 144 mmol/LMercy Health- [place], KYUrea nitrogen [Mass/Vol]30 mg/dLHigh6 - 20 mg/dLMccullough-Hyde [facility]- [place], KYAnion gap [Moles/Vol]13 mmol/L9 - 17 mmol/LMercy Health- [place], KYBun/Cre RatioNOT REPORTED [facility]- [place], KYCalcium [Mass/Vol]8.6 mg/dL8.6 - 10.4 mg/dLMccullough-Hyde [facility]- [place], KYChloride [Moles/Vol]98 mmol/L98 - 107 mmol/LMKettering Memorial Hospital, KYCO2 [Moles/Vol]22 mmol/L20 - [address] [place], KYCreatinine [Mass/Vol]2.42 mg/dLHigh0.7 - 1.2 mg/dLMetroHealth [facility], KYGFR Bhtreoin04 mL/minLow>60 [facility], KYGFR Non- Njhercyn12 mL/minLow>60[facility], [place] GFR/1.73 sq M predicted among non-blacks MDRD (S/P/Bld) [Vol rate/Area]NOT REPORTEDMet[facility]Health [facility], KYGFR/1.73 sq M predicted among non-blacks MDRD (S/P/Bld) [Vol rate/Area][facility], KYComment on above:Average GFR for 50-59 years old: 93 mL/min/1.73sq m Chronic Kidney Disease: <60 mL/min/1.73sq m Kidney failure: <15 mL/min/1.73sq m eGFR calculated using average adult body mass. Additional eGFR calculator available at: http://www.MoveEZ/multiple_crcl_2012.htm Glucose [Mass/Vol]242 mg/qCCegy17 - 99 mg/dLMetroHealth [facility], KYInterpretation and review of laboratory resultsAbnormalMetroHealth [facility], KYPotassium [Moles/Vol]4.3 mmol/L3.7 - 5.3 mmol/[facility], KYSodium [Moles/Vol]133 mmol/HSjb058 - 144 mmol/[facility], KYUrea nitrogen [Mass/Vol]29 mg/dL High6 - 20 mg/dLMetroHealth Cleveland Heights Medical Center, KYCBCon [id number] distribution width (RBC) [Ratio]16.1 %High11.8 - 14.4 %[facility], KYHematocrit (Bld) [Volume fraction]26.4 %Low40.7 - 50.3 %[facility], KYHemoglobin (Bld) [Mass/Vol]8.2 g/dLLow13 - 17 g/dLMetroHealth Cleveland Heights [facility], KYInterpretation and review of laboratory resultsAbnormOhioHealth Doctors Hospital, ALMCH (RBC) [Entitic mass]27.1 pg 25.2 - 33.5 pgMetroHealth [facility], ALMCHC (RBC) [Mass/Vol]31.1 g/dL28.4 - 34.8 g/dL [facility], ALMCV (RBC) [Entitic vol]87.1 fL82.6 - 102.9 fLMetroHealth Cleveland Heights Medical Center, ALPlatelet mean volume (Bld) [Entitic vol]10.2 fL8.1 - 13.5 fLMetroHealth Cleveland Heights Medical Center, ALPlatelets (Bld) [#/Vol]308 10*3/uLMetroHealth [facility], ALRBC (Bld) [#/Vol] 3.03 10*6/uLLow4.21 - 5.77 m/[facility], ALWBC (Bld) [#/Vol]11.4 10*3/uL HighMetroHealth Cleveland Heights Medical Center, ALWBC (Bld) [#/Vol]0.0 10*3/uL0.0 per 100 WBCMetroHealth Cleveland Heights Medical Center, ALFerritinon [id number] [Mass/Vol]62 ug/L30 - 400 ug/LMKettering Memorial Hospital, ALHemoglobin and Hematocrit, Bloodon [id number] (Bld) [Volume fraction]25.3 %Low40.7 - 50.3 %[place], KYHemoglobin (Bld) [Mass/Vol] 7.7 g/dLLow13 - 17 g/dLMetroHealth [facility] Heights [facility], KYInterpretation and review of laboratory resultsAbnormOhioHealth Doctors Hospital, KYHematocrit (Bld) [Volume fraction] 24.6 %Low40.7 - 50.3 %[facility], ALHemoglobin (Bld) [Mass/Vol]7.6 g/dLLow 13 - 17 g/dLMetroHealth [facility] Heights [facility], KYInterpretation and review of laboratory results AbnormalMetroHealth [facility], MALINIHematocrit (Bld) [Volume fraction]28.6 %Low40.7 - 50.3 %[facility], KYHemoglobin (Bld) [Mass/Vol]8.8 g/dLLow13 - 17 g/dL [facility], KYInterpretation and review of laboratory resultsAbnoProvidence Hospital, KYIron and TIBCon 13-32-0166Ougccjdmfpxquh and review of laboratory resultsAbnoProvidence Hospital, KYIron [Mass/Vol]36 ug/dLLow59 - 158 ug/dL [facility], KYIron Drdyhgxunj17 %Low20 - 55 %[facility], HDWLEZ949 ug/bJPdw188 - 450 ug/dLMet[facility]Health [facility], VFADAX903 ug/dL112 - 347 ug/dLMet[facility]Health [facility], KYPOC Glucose Fingerstickon 46-08-6637Fjvjezv [Mass/Vol]205 mg/dL High75 - 110 mg/dLMetroHealth [facility], KYInterpretation and review of laboratory resultsAbProMedica Memorial Hospital, KYGlucose [Mass/Vol]254 mg/rJBjkz72 - 110 mg/dL [facility], KYInterpretation and review of laboratory resultsAbnoProvidence Hospital, KYGlucose [Mass/Vol]242 mg/lTVdjt57 - 110 mg/dLMetroHealth [facility], [place] Interpretation and review of laboratory resultsAbnoProvidence Hospital, [place] Glucose [Mass/Vol]227 mg/tPUafh10 - 110 mg/dLMetroHealth [facility], KYInterpretation and review of laboratory resultsAbProMedica Memorial Hospital, KYGlucose [Mass/Vol] 198 mg/cIXaya36 - 110 mg/dLMetroHealth [facility], KYInterpretation and review of laboratory resultsAbProMedica Memorial Hospital, KYProtime-INRon [id number] Coag (PPP) [Relative time]0.9 {INR}[facility], KYComment on above: Therapeutic Range: Moderate Anticoagulant Intensity: INR = 2.0-3.0 High Anticoagulant Intensity: INR = 2.5-3.5 PT Coag (PPP) [Time]10.1 sMKettering Memorial Hospital, KYCBCon 45-02-1072Ktuqqbhqeza distribution width (RBC) [Ratio]16.1 %High12.1 - 15.2 %[facility], [place] Hematocrit (Bld) [Volume fraction]35.8 %Low41 - 53 %[facility], [place] Hemoglobin (Bld) [Mass/Vol]11.7 g/dLLow13.5 - 17.5 g/dLMetroHealth [facility], AL Interpretation and review of laboratory resultsAbnoProvidence Hospital, ALMCH (RBC) [Entitic mass]27.3 pg26 - 34 pgMetroHealth [facility], ALMCHC (RBC) [Mass/Vol] 32.7 g/dL31 - 37 g/dLMetroHealth [facility] Heights [facility], ALMCV (RBC) [Entitic vol]83.3 fL80 - 100 [facility], ALPlatelet mean volume (Bld) [Entitic vol]NOT REPORTED6 - 12 [facility], ALPlatelets (Bld) [#/Vol]326 10*3/[facility], ALRBC (Bld) [#/Vol]4.29 10*6/uLLow4.5 - 5.9 m/[facility], KYWBC (Bld) [#/Vol] 13.7 10*3/uLHenry County Hospital, KYWBC (Bld) [#/Vol]NOT REPORTEDper 100 WBC [facility], ALHemoglobin and Hematocrit, Bloodon [id number] (Bld) [Volume fraction]31.8 %Low40.7 - 50.3 %[facility], MALINIHemoglobin (Bld) [Mass/Vol]10.1 g/dLLow13 - 17 g/dLMetroHealth [facility] Heights [facility], ALInterpretation and review of laboratory resultsAbnoProvidence Hospital, KYHematocrit (Bld) [Volume fraction]30.0 %Low40.7 - 50.3 %[facility], ALHemoglobin (Bld) [Mass/Vol] 9.5 g/dLLow13 - 17 g/dLMetroHealth [facility] Heights [facility], ALInterpretation and review of laboratory resultsAbProMedica Memorial Hospital, ALMicroscopic Urinalysison 33-17-4186Bmxxlcghp, UANOT REPORTEDNoneMercy Health- [place], KYBacteria, UAFEW AbnormalNoneMey Health- [place], KYCasts UAHYALINEMer Health- [place], KYCasts UA10 TO 20[facility]- [place], KYCrystals UANOT REPORTEDNone /HPFMer Health- [place], [place] Epithelial Cells UA2 TO 5[facility]- [place], KYInterpretation and review of laboratory resultsAbnormalMccullough-Hyde Memorial Hospital [facility]- [place], KYMucus, UA2+AbnormalNoneMey Health- [place], KYOther Observations UANOT REPORTEDNOT REQ.[facility]- [place], KYRBC (U) [#/Vol]2 TO 5[facility]- [place], KYRenal Epithelial, UrineNOT REPORTED0 /HPF [facility]- [place], KYTrichomonas, UANOT REPORTEDNoneMeselect medical [facility]- [place], KYWBC, UA2 TO 5[facility]- [place], KYYeast, UANOT REPORTEDNoneMey Health- [place], KY-[facility]- [place], KYOtheron . Nondisplaced fracture of the right T4 anterior inferior endplate with associated osteophyte. No further fractures of the spine. 2. Large 19+ centimeter hematoma of the posterior lateral left chest wall, deep to the musculature as above. Correlate with hemoglobin and hematocrit levels. IV contrast not utilized to assess for any active extravasation. 3. Moderate calcific coronary arterial disease.[facility], KYEdi, Mhpn Incoming Radiant Results From IOCS/Adomik - 09/04/2019 12:05 AM EDT EXAMINATION: CT [...] extravasation. 3. Moderate calcific coronary arterial disease. [facility], KYEXAMINATION: CT THORACIC SPINE WO CONTRAST, CT [...] No obvious bony neural foraminal or centralcanal stenosis.[facility], ALPO Glucose Fingerstickon 09-10-8415Afwsnwp [Mass/Vol]205 mg/wEEefd04 - 110 mg/dLMetroHealth [facility], ALInterpretation and review of laboratory resultsAbnoProvidence Hospital, ALGlucose [Mass/Vol]192 mg/xVWfko32 - 110 mg/dLMet[facility]Health [facility], KYInterpretation and review of laboratory resultsAbnoProvidence Hospital, ALGlucose [Mass/Vol]255 mg/dYYzbc32 - 110 mg/dLMetroHealth [facility], KYInterpretation and review of laboratory results AbnormalE[place], KYGlucose [Mass/Vol]258 mg/cDDfrs33 - 110 mg/dLMetroHealth [facility] Heights [facility], ALInterpretation and review of laboratory resultsAbnoDuncanville, KYPlatelet function teston [id number]/EPI Clos Pbch01DjpazMetroHealth [facility] Center, ALCollagen Adenosine-5'-Diphosphate (Adp) Ftan13Rnsco[address] [place] [address], [place] Platelet Function InterpNormal platelet function. If patient clinical history/Physical examination is positive for a bleeding diathesis, recommend repeat testing and/or additional primary hemostasis and/or coagulation studies. [facility], ALComment on above: PFA results on patients treated with Plavix (clopidogrel) have not been established. TROP/MYOGLOBINon [id number] and review of laboratory results AbnormalE[place], KYMyoglobin [Mass/Vol]89 ng/iUVxuy73 - 72 ng/mLMetroHealth [facility] Center, ALTroponin I.cardiac [Mass/Vol]NOT REPORTEDMet[facility]Health [facility], [place] Troponin T.cardiac [Mass/Vol]NOT REPORTED<0.03 ng/mLMet[facility]Health [facility], [place] Troponin, High Fnmfimhucfs27 ng/L0 - 22 ng/LMCleveland Clinic Euclid Hospital- [place], KYComment on above: High Sensitivity Troponin values cannot be compared with other Troponin methodologies. Patients with high levels of Biotin oral intake (i.e >5mg/day) may have falsely decreased Troponin levels. Samples collected within 8 hours of biotin intake may require additional information for diagnosis. TYPE AND SCREENon [id number]/RhNegativeMetroHealth [facility], KYArm Band NumberNEI [facility]- [place], KYExpiration Date09/07/2019[facility], KYTrauma Panelon 29-09-9279Izkdv TestNOT REPORTEDEast [facility] [place], KYAnion gap [Moles/Vol]13 mmol/L9 - 17 mmol/LM[address] rita's medical centery [facility]- [place], KYaPTT Coag (Bld) [Time]28.5 sMKettering Memorial Hospital, KYaPTT Coag (Bld) [Time]37.0 [facility], ALBlood Bank SpecimenBILL FOR SERVICES PERFORMEDMetroHealth [facility], ALCarboxyhemoglobin1.4 %0 - 5 %[facility], KYComment on above: Reference Range: Non-Smokers 0-2% Average Smoker 2-4% Heavy Smoker <10% Chloride [Moles/Vol]96 mmol/LLow98 - 107 mmol/LMCleveland Clinic Euclid Hospital- [place], KYCO2 [Moles/Vol]21 mmol/L20 - 31 mmol/LMCleveland Clinic Euclid Hospital- [place], KYCreatinine [Mass/Vol]1.64 mg/dLHigh0.7 - 1.2 mg/dLEast [facility] [place], KYErythrocyte distribution width (RBC) [Ratio]15.4 %High11.8 - 14.4 %[facility]- [place], KYEthanol [Mass/Vol]mg/dL<10 mg/dLMartin Memorial Hospital- [place], KYEthanol percent<0.010<0.010 %[facility]- [place], KYFIO2 TRAUMAMartin Memorial Hospital- [place], KYGFR Yedfcglb74 mL/minLow>60[facility]- [place], KYGFR Non- Dmtauhul94 mL/minLow>60[facility], MALINIGFR/1.73 sq M predicted among non-blacks MDRD (S/P/Bld) [Vol rate/Area][facility] AL Comment on above:Average GFR for 50-59 years old: 93 mL/min/1.73sq m Chronic Kidney Disease: <60 mL/min/1.73sq m Kidney failure: <15 mL/min/1.73sq m eGFR calculated using average adult body mass. Additional eGFR calculator available at: http://www.MoveEZ/multiple_crcl_2012.htm GFR/1.73 sq M predicted among non-blacks MDRD (S/P/Bld) [Vol rate/Area]NOT REPORTEDMet[facility] ALGlucose [Mass/Vol]224 mg/jMHuut13 - 99 mg/dLMet[facility]Health [facility], ALhCG QualPT IS MALENEGATIVEMetroHealth [facility] Heights Medical Center, MALINIHCO3, Bcqatv22.5 mmol/LLow24 - 30 mmol/LMKettering Memorial Hospital, MALIINHematocrit (Bld) [Volume fraction] 35.9 %Low40.7 - 50.3 %[facility] CenterMALINIHemoglobin (Bld) [Mass/Vol]11.4 g/dL Low13 - 17 g/dLMetroHealth [facility], MALINIINR Coag (PPP) [Relative time]1.0 {INR}[facility], MALINIComment on above: Therapeutic Range: Moderate Anticoagulant Intensity: INR = 2.0-3.0 High Anticoagulant Intensity: INR = 2.5-3.5 Interpretation and review of laboratory resultsAbnormalMetroHealth [facility], [facility] (RBC) [Entitic mass]27.3 pg25.2 - 33.5 pgMetroHealth [facility], [facility]HC (RBC) [Mass/Vol]31.8 g/dL28.4 - 34.8 g/dLMetroHealth [facility], [facility]V (RBC) [Entitic vol] 85.9 fL82.6 - 102.9 fLMetroHealth [facility] Heights Medical Center, MALINIMethemoglobinNOT REPORTED0 - 1.5 % [facility], MALINIModeNOT REPORTEDMercy Health- [place], KYNegative Base Excess, Ven1.4 mmol/L0 - 2 mmol/LMercy Health- [place], KYNOTIFICATIONNOT REPORTEDMercy Health- [place], KYNOTIFICATION TIMENOT REPORTEDMercy Health- [place], KYO2 Device/Flow/% NOT REPORTEDMercy Health- [place], KYOxygen saturation in Blood68.3 %60 - 85 %[facility]- [place], KYOxyhemoglobinNOT YGRLWSCA32 - 98 %[facility]- [place], KYpCO2, Marek [...] KYSet RateNOT REPORTEDMercy Health- [place], KYSodium [Moles/Vol]130 mmol/YRdi124 - 144 mmol/LMercy Health- [place], KYText for RespiratoryNOT REPORTED [facility]- [place], KYTotal HbNOT KYHRLWPC34 - 16 g/dlMercy Health- [place], KYTotal RateNOT REPORTEDMercy Health- [place], KYUrea nitrogen [Mass/Vol]16 mg/dL6 - 20 mg/dL [facility]- [place], KYVTNOT REPORTEDMercy Health- [place], KYWBC (Bld) [#/Vol]15.3 10*3/uLHighMercy Health- [place], KYWBC (Bld) [#/Vol]0.0 10*3/uL0.0 per 100 WBCMerMultiCare Health- [place], KYUrinalysison 68-85-1367Ccebjbfne UrineNegativeNEGATIVEMerMultiCare Health- [place], KYColor, UAYELLOWYELLOWMer Health- [place], KYGlucose, Ur2+Abnormal NEGATIVEMartin Memorial Hospital- [place], KYInterpretation and review of laboratory results AbnormalMer Health- [place], KYKetones Ql (U)TRACEAbnormalNEGATIVEMercy Health- [place], KYLeukocyte esterase Test strip Ql (U)NegativeNEGATIVEMccullough-Hyde Memorial Hospital Health- [place], [place] Nitrite, UrineNegativeNEGATIVEMer Health- [place], KYpH, UA5.5[facility]- [place], [place] Protein (U) [Mass/Vol]4+AbnormalNEGATIVEMccullough-Hyde Memorial Hospital [facility]- [place], KYSpecific [place], UA 1.035HighMerMultiCare Health- [place], KYTurbidity UACLEARCLEARMartin [facility]- [place], [place] Urinalysis CommentsNOT REPORTEDMccullough-Hyde Memorial [facility]- [place], KYUrine HgbNegativeNEGATIVE [facility]- [place], KYUrobilinogen, UrineNormalNormalMartin [facility]- [place], KYUrine Drug Screenon [phone] Screen, UrNegativeNEGATIVEMartin Memorial Hospital- [place], KYComment on above: (Positive cutoff 1000 ng/mL) Barbiturate Screen, UrNegativeNEGATIVEMercy Health- [place], KYComment on above: (Positive cutoff 200 ng/mL) Benzodiazepine Screen, UrineNegativeNEGATIVEMercy Health- [place], KYComment on above: (Positive cutoff 200 ng/mL) Buprenorphine UrineNOT REPORTEDNEGATIVEMartin Memorial Hospital- [place], KYCannabinoid Scrn, Ur NegativeNEGATIVEMer Health- [place], KYComment on above: (Positive cutoff 50 ng/mL) Cocaine Metabolite, UrineNegativeNEGATIVEUniversity Hospitals Health Systemcy Health- [place], KYComment on above: (Positive cutoff [...] urine, limitations of testing or timing of collection.GoNoggingy Health- [place], KYComment on above:Testing for legal purposes should be confirmed by another method. To request confirmation of test result, please call the lab within 7 days of sample submission. Tricyclic Antidepressants, UrineNOT REPORTEDNEGATIVEMercy Health- [place], KYAPTTon [phone] Coag (Bld) [Time]31.[address] [facility] centery [facility]- [place], KYComment on above: PTT Therapeutic Range: 61.7-88.4 Therapeutic range corresponds to plasma heparin levels of 0.3-0.7 U/mL. CBC Auto Differentialon [id number] (Bld) [#/Vol]0.00 10*3/uLMercy Health- [place], KYBasophils/100 WBC (Bld)0 %0 - 2 %[facility]- [place], KYDifferential TypeYESMercy Health- [place], KYEosinophils (Bld) [#/Vol]0.10 10*3/uLMercy Health- [place], KYEosinophils/100 WBC (Bld)1 %0 - 5 %[facility]- [place], KYErythrocyte distribution width (RBC) [Ratio]16.9 %High12.1 - 15.2 %[facility] [place], [place] Hematocrit (Bld) [Volume fraction]36.8 %Low41 - 53 %[place], [place] Hemoglobin (Bld) [Mass/Vol]12.4 g/dLLow13.5 - 17.5 g/dLEagle [place], [place] Interpretation and review of laboratory resultsAbnormalE[place], [place] Lymphocytes (Bld) [#/Vol]1.20 10*3/uLMetroHealth Cleveland Heights Medical Center ALLymphocytes/100 WBC (Bld)9 %Low13 - 44 %[facility], [facility] (RBC) [Entitic mass]27.8 pg26 - 34 pgMetroHealth [facility], ALMCHC (RBC) [Mass/Vol]33.5 g/dL31 - 37 g/dLMetroHealth [facility] Heights [facility], ALMCV (RBC) [Entitic vol]82.8 fL80 - 100 fLMetroHealth Cleveland Heights Medical Center ALMonocytes (Bld) [#/Vol]0.60 10*3/uLMetroHealth [facility], ALMonocytes/100 WBC (Bld)4 %Low5 - 9 %[facility] ALPlatelet mean volume (Bld) [Entitic vol]NOT REPORTED6 - 12 fLMetroHealth Cleveland Heights Medical Center, ALPlatelets (Bld) [#/Vol]292 10*3/[place], [place] Platelets (Bld) [#/Vol]NOT REPORTEDMet[facility]Health [facility], ALRBC (Bld) [#/Vol]4.45 10*6/uLLow4.5 - 5.9 m/[facility], ALRB morphology finding Nom (Bld)NOT REPORTEDEagle [place], KYSegmented neutrophils/100 WBC (Bld)86 %High39 - 75 % [facility], ALSegs Iclkuawo78.70HighMetroHealth [facility] Heights [facility], ALWBC (Bld) [#/Vol] 13.6 10*3/uLHenry County Hospital, ALWBC (Bld) [#/Vol]NOT REPORTEDper 100 WBC [facility], ALWBC MorphologyNOT REPORTEDE[place], KYComprehensive Metabolic Panel w/ Reflex to MGon [id number] [Mass/Vol]4 g/dL3.5 - 5.2 g/dLMccullough-Hyde Memorial [facility]- [place], KYAlbumin/Globulin [Mass ratio]NOT REPORTEDMartin [facility]- [place], KYALP [Catalytic activity/Vol]89 U/L40 - 129 U/LMkettering health greene memorial [facility]- [place], KYALT [Catalytic activity/Vol]14 U/L5 - 41 U/LMkettering health greene memorial [facility]- [place], KYAnion gap [Moles/Vol]13 mmol/L9 - 17 mmol/LMercy Health- [place], KYAST [Catalytic activity/Vol]14 U/L<40Mccull[facility]- [place], KYBilirubin Ql (U)0.25 mg/dLLow0.3 - 1.2 mg/dLMccullough-Hyde Memorial [facility]- [place], KYBun/Cre Yacqc06Fdkky Health- [place], KYCalcium [Mass/Vol] 9.9 mg/dL8.6 - 10.4 mg/dLMartin [facility]- [place], KYChloride [Moles/Vol]98 mmol/L98 - 107 mmol/LMkettering health greene memorial [facility]- [place], KYCO2 [Moles/Vol]23 mmol/L20 - 31 mmol/LMkettering health greene memorial [facility]- [place], KYCreatinine [Mass/Vol]1.89 mg/dLHigh0.7 - 1.2 mg/dLMartin [facility]- [place], KYGFR Fkyldvcl10 mL/minLow>60[facility]- [place], KYGFR Non- Moddpgxt68 mL/minLow>60[facility]- [place], KYGFR/1.73 sq M predicted among non- blacks MDRD (S/P/Bld) [Vol rate/Area][facility], KYComment on above: Average GFR for 50-59 years old: 93 mL/min/1.73sq m Chronic Kidney Disease: <60 mL/min/1.73sq m Kidney failure: <15 mL/min/1.73sq m eGFR calculated using average adult body mass. Additional eGFR calculator available at: http://www.Langhar.My-Apps/multiple_crcl_2012.htm GFR/1.73 sq M predicted among non-blacks MDRD (S/P/Bld) [Vol rate/Area]NOT REPORTEDMet[facility]Health [facility], KYGlucose [Mass/Vol]271 mg/hMMcvh59 - 99 mg/dLMartin Memorial Hospital- [place], KYInterpretation and review of laboratory resultsAbnormalMetroHealth [facility], KYPotassium [Moles/Vol]4.0 mmol/L3.7 - 5.3 mmol/LMKettering Memorial Hospital, KYProtein [Mass/Vol]7.2 g/dL6.4 - 8.3 g/dLMetroHealth [facility], KYSodium [Moles/Vol] 134 mmol/NRjw972 - 144 mmol/LMKettering Memorial Hospital, KYUrea nitrogen [Mass/Vol]18 mg/dL6 - 20 mg/dLMetroHealth [facility] Heights [facility] Center, ALLactic Acidon [id number] [Moles/Vol] 1.2 mmol/L0.5 - 2.2 mmol/LMKettering Memorial Hospital, ALOtheron 88-91-5547Pkleuwjr granulocytes (Bld) [#/Vol]NOT REPORTEDMet[facility]Health [facility], ALProtime-INRon 72-46-1231TKF Coag (PPP) [Relative time]1.0 {INR}[facility], ALComment on above: * THERAPY INDICATIONS * REFERENCE RANGES Pts not on anti-coagulants 1.0 - 1.5 INR Low risk pts on anti-coagulants 2.0 - 3.0 INR High risk pts on anti-coagulants 2.5 - 3.5 INR Prevention of atrial thrombo-embolism 3.0 - 4.5 INR PT Coag (PPP) [Time]9.9 sMKettering Memorial Hospital, ALAlbuminon 80-78-1879Vixhhox [Mass/Vol]4.1 g/dL3.5 - 5.2 g/dLMetroHealth [facility] Center, ALBUN & Creatinineon 97-55-5519Fwwrzouqdm [Mass/Vol]1.97 mg/dLHigh0.7 - 1.2 mg/dLMetroHealth [facility], [place] GFR Vfkdhemu45 mL/minLow>60[facility], ALGFR Non- 36 mL/minLow>60[facility], KYGFR/1.73 sq M predicted among non-blacks MDRD (S/P/Bld) [Vol rate/Area]NOT REPORTEDMet[facility]Health [facility], ALGFR/1.73 sq M predicted among non-blacks MDRD (S/P/Bld) [Vol rate/Area][facility], [place] Comment on above:Average GFR for 50-59 years old: 93 mL/min/1.73sq m Chronic Kidney Disease: <60 mL/min/1.73sq m Kidney failure: <15 mL/min/1.73sq m eGFR calculated using average adult body mass. Additional eGFR calculator available at: http://www.MoveEZ/multiple_crcl_2012.htm Interpretation and review of laboratory resultsAbnormFulton County Health Center- [place], KYUrea nitrogen [Mass/Vol]23 mg/dLHigh6 - 20 mg/dLEast [facility] [place], KYCalciumon 35-22-0085Pezaclg [Mass/Vol]10.3 mg/dL8.6 - 10.4 mg/dLMartin [facility]- [place], [place] Electrolyte Panelon 90-67-4238Qkiuh gap [Moles/Vol]12 mmol/L9 - 17 mmol/LMercy Health- [place], KYChloride [Moles/Vol]99 mmol/L98 - 107 mmol/LMercy Health- [place], [place] CO2 [Moles/Vol]26 mmol/L20 - 31 mmol/LMercy Health- [place], KYPotassium [Moles/Vol] 4.7 mmol/L3.7 - 5.3 mmol/LMercy Health- [place], KYSodium [Moles/Vol]137 mmol/L135 - 144 mmol/LMercy Health- [place], KYMagnesiumon 08-81-3328Iiazztxfo [Mass/Vol]2.0 mg/dL1.6 - 2.6 mg/dLMartin [facility]- [place], KYPTH, Intacton 03-71-2865Bmv Ncpuse55.52 pg/mL15 - 65 pg/mLMetroHealth Cleveland Heights [facility] Center, KYComment on above:SAMPLES FROM PATIENTS ROUTINELY RECEIVING HIGH DOSE BIOTIN THERAPY MAY SHOW FALSELY DEPRESSED RESULTS. ADDITIONAL INFORMATION MAY BE REQUIRED FOR DIAGNOSIS. Phosphoruson 92-32-5357Ericecfcd [Mass/Vol]3.9 mg/dL2.5 - 4.5 mg/dLMetroHealth [facility], ALVitamin D 25 Hydroxyon 79-70-7224Llhunmtfyoddgz and review of laboratory resultsAbnormFulton County Health Center- [place], KYVit D, 25-Hydroxy8.5 ng/mLLow30 - 100 ng/mL [facility]- [place], KYComment on above: Reference Range: Vitamin D status Range Deficiency <20 ng/mL Mild Deficiency 20-30 ng/mL Sufficiency 30-100 ng/mL Toxicity >100 ng/mL Comprehensive Metabolic Panelon [id number] [Mass/Vol]3.7 g/dL3.5 - 5.2 g/dLMercy Health- [place], KYAlbumin/Globulin [Mass ratio]NOT REPORTEDMercy Health- [place], KYALP [Catalytic activity/Vol]78 U/L40 - 129 U/LMercy Health- [place], KYALT [Catalytic activity/Vol]18 U/L5 - 41 U/LMercy Health- [place], KYAnion gap [Moles/Vol]11 mmol/L9 - 17 mmol/LMercy Health- [place], KYAST [Catalytic activity/Vol]14 U/L<40[facility]- [place], KYBilirubin Ql (U)0.25 mg/dLLow0.3 - 1.2 mg/dLMercy Health- [place], KYBun/Cre Jahcx31Xwgyl Health- [place], KYCalcium [Mass/Vol] 10.0 mg/dL8.6 - 10.4 mg/dLMercy Health- [place], KYChloride [Moles/Vol]102 mmol/L98 - 107 mmol/LMercy [facility]- [place], KYCO2 [Moles/Vol]23 mmol/L20 - 31 mmol/LMercy [facility]- [place], KYCreatinine [Mass/Vol]1.64 mg/dLHigh0.7 - 1.2 mg/dLMercy Health- [place], KYGFR Zfsicqhu51 mL/minLow>60[facility]- [place], KYGFR Non- Zdnfwwvd08 mL/minLow>60[facility]- [place], KYGFR/1.73 sq M predicted among non- blacks MDRD (S/P/Bld) [Vol rate/Area]NOT REPORTEDMercy Health- [place], KYGFR/1.73 sq M predicted among non-blacks MDRD (S/P/Bld) [Vol rate/Area][facility] [place], [place] Comment on above:Average GFR for 50-59 years old: 93 mL/min/1.73sq m Chronic Kidney Disease: <60 mL/min/1.73sq m Kidney failure: <15 mL/min/1.73sq m eGFR calculated using average adult body mass. Additional eGFR calculator available at: [email or web address] Glucose [Mass/Vol]216 mg/iWLkkj70 - 99 mg/dLMetroHealth Cleveland [facility], ALPotassium [Moles/Vol]4.5 mmol/L3.7 - 5.3 mmol/LMKettering Memorial Hospital, KYProtein [Mass/Vol]7.4 g/dL6.4 - 8.3 g/dLMetroHealth [facility], KYSodium [Moles/Vol]136 mmol/L135 - 144 mmol/LMKettering Memorial Hospital, KYUrea nitrogen [Mass/Vol]17 mg/dL6 - 20 mg/dLMetroHealth Cleveland Heights [facility], ALHemoglobin A1Con 84-19-4881Ezhuknf [Mass/Vol]246 mg/dLMetroHealth [facility], ALComment on above:The ADA and AACC recommend providing the estimated average glucose result to permit better patient understanding of their HBA1c result. HbA1c (Bld) [Mass fraction]10.2 %High4.8 - 5.9 %[facility], [place] Interpretation and review of laboratory resultsAbnormalEagle [place], [place]YLDL Cholesterol, Directon 39-44-9619Dakdsxwcwqn in LDL [Mass/Vol]76 mg/dL<100[facility], ALLipid Panelon 20-16-8569Jjzfjmtemyw [Mass/Vol]163 mg/dL<200[facility], ALComment on above: Cholesterol Guidelines: <200 Desirable 200-240 Borderline >240 Undesirable Cholesterol in HDL [Mass/Vol]27 mg/dLLow>40[facility], ALComment on above: HDL Guidelines: <40 Undesirable 40-59 Borderline >59 Desirable Cholesterol in LDL [Mass/Vol]0 - 130 mg/dLEagle Grove, KYComment on above: Calculation not valid for Triglyceride value greater than 400 mg/dL. Direct LDL reflexed LDL Guidelines: <100 Desirable 100-129 Near to/above Desirable 130-159 Borderline >159 Undesirable Direct (measured) LDL and calculated LDL are not interchangeable tests. Cholesterol in VLDL [Mass/Vol]1 - 30 mg/dLEagle Grove, [place] Cholesterol.total/Cholesterol in HDL [Mass ratio]6 {ratio}High<5[place], KYTriglyceride [Mass/Vol]531 mg/dLHigh<150[place], KYComment on above: Triglyceride Guidelines: <150 Desirable 150-199 Borderline 200-499 High >499 Very high Based on AHA Guidelines for fasting triglyceride, August 2012. Otheron 50-12-7120Zagvgehoijqpus and review of laboratory resultsAbnormalEagle Grove, KYPatient Fasting?on 74-24-2524Djaqwqn Fasting?YESE[place] Vital Signs Date TimeVital SignValuePerforming DrsoellbaHtpvajje20-54-4433 17:53-0400Body uyoapvmqwzv24.8 [degF]Chasenolaade Borjajohn Hicks, DO Work Phone: [facility]04-02-2025 17:53-0400Diastolic blood kwsxckuw35 mm[Hg]Chasenoladae Constantino Kurt, DO Work Phone: [facility]04-[facility]-2025 17:53-0400Systolic blood wcnwdtyb761 mm[Hg]Marciaade Dougie Hicks, DO Work Phone: [facility]04-02-2025 17:00-0400Heart rate71 /Ramone Constantino I, DO Work Phone: [facility]04-02-2025 17:00-0400 Respiratory rate22 /Ramone Constantino I, DO Work Phone: [facility]04-02-2025 17:00-7057UyO3% (BldA) [Mass fraction]98 %Marciaade Dougie Hicks, DO Work Phone: [facility]04-02-2025 06:00-0400Body mass index (BMI) [Ratio]44.5 kg/a0Ddaqamxq Dougie Hicks, DO Work Phone: [facility]04-02-2025 06:00-0400Body rwzvyw211.7 kgMotawana Constantino I, DO Work Phone: [facility]03-31-2025 18:30-0400Body ncyzow368.3 cmMotawana Constantino I, DO Work Phone: [facility]10-15-2024 10:15-0400Diastolic blood cylndqvw57 mm[Hg]Nacho Montiel MD Work Phone: [facility]10-15-2024 10:15-0400Heart rate71 /Maria Teresa Montiel MD Work Phone: [facility]10-15-2024 10:15-0400 Respiratory rate18 /Maria Teresa Montiel MD Work Phone: [facility]10-15-2024 10:15-5824DwZ7% (BldA) [Mass fraction]92 %Nacho Montiel MD Work Phone: [facility]10-15-2024 10:15-0400Systolic blood pwpqygkc64 mm[Hg]Nacho Montiel MD Work Phone: [facility]10-15-2024 10:02-0400Body wcevjiiaqnd54.8 [degF]Nacho Montiel MD Work Phone: [facility]08-08-2024 10:39-0400Body mass index (BMI) [Ratio]42.34 kg/k5HslobnTapan Rudolph MD Work Phone: 1(377) [phone]nnulc79-27-7000 10:39-0400Body guzcuu875.05 kg Tapan Rudolph MD Work Phone: 1(404) [phone]dglro54-87-6324 10:00-0400Heart rate97 /minTapan Rudolph MD Work Phone: 1(909) [phone]impeh68-29-7561 07:10-0400Body xpgriurapoe01.5 [degF]Tapan Rudolph MD Work Phone: 1(319) [phone]rersw99-65-7856 07:10-0400Diastolic blood nhwimsug06 mm[Hg]Tapan Rudolph MD Work Phone: 1(252) [phone]olmuc63-69-8025 07:10-0400Respiratory rate16 /min Tapan Rudolph MD Work Phone: 1(468) [phone]glgpq83-08-1582 07:10-3800QeN6% (BldA) [Mass fraction]96 %Tapan Rudolph MD Work Phone: 1(297) [phone]lnuuo37-54-2304 07:10-0400Systolic blood pressure 150 mm[Hg]Tapan Rudolph MD Work Phone: 1(474) [phone]hricm69-71-7584 18:10-0400Body jtgpaf692.3 cm Tapan Rudolph MD Work Phone: 1(436) [phone]ahize43-90-4583 14:57-0400Body mass index (BMI) [Ratio]45.04 kg/j1ElzdcdBrian Arevalo MD Work Phone: 1(792) [phone]vunqz28-54-0393 14:57-0400Body ftbrip376.35 kg Brian Arevalo MD Work Phone: 1(296) [phone]jcfph41-77-2020 14:57-0400Diastolic blood mm[Hg]Brian Arevalo MD Work Phone: 1(794) [phone]kwuor71-78-3445 14:57-0400Heart rate72 /minBrian Arevalo MD Work Phone: 1(264) [phone]ixtiz70-19-4294 14:57-0400Systolic blood pressure 131 mm[Hg]Brian Arevalo MD Work Phone: 1(562) [phone]ubqnv61-94-4413 13:39-0400Body ygglss764.3 cm Brian Arevalo MD Work Phone: 1(169) [phone]zmsmm02-31-0000 13:39-0400Body mass index (BMI) [Ratio]45.06 kg/g7HasucnBrian Arevalo MD Work Phone: 1(287) [phone]uodvw73-34-3660 13:39-0400Body jjwarb197.39 kg Brian Arevalo MD Work Phone: 1(654) [phone]cbezv64-92-0018 13:39-0400Diastolic blood mqsggubi64 mm[Hg]Brian Arevalo MD Work Phone: 1(804) [phone]xpuca21-65-3646 13:39-0400Heart rate73 /minBrian Arevalo MD Work Phone: 1(684) [phone]juwsy40-62-3894 13:39-3544ViP8% (BldA) [Mass fraction]95 %Brian Arevalo MD Work Phone: 1(234) [phone]xegdb79-12-7780 13:39-0400Systolic blood pressure 169 mm[Hg]Brian Arevalo MD Work Phone: 1(832) [phone]ybmkw94-50-8318 14:04-0400Body ghftyc579.3 cm Brian Arevalo MD Work Phone: 1(806) [phone]nvufi71-98-9907 14:04-0400Body mass index (BMI) [Ratio]45.04 kg/l4RmutuzBrian Arevalo MD Work Phone: 1(902) [phone]arpxx53-92-9191 14:04-0400Body .35 kg Brian Arevalo MD Work Phone: 1(293) [phone]zcpwd74-67-6275 14:04-0400Diastolic blood iwefesyk82 mm[Hg]Brian Arevalo MD Work Phone: 1(599) [phone]axkrc24-37-5896 14:04-0400Heart rate76 /minBrian Arevalo MD Work Phone: 1(726) [phone]pcxrx25-03-5816 14:04-0400Respiratory rate16 /min Brian Arevalo MD Work Phone: 1(891) [phone]tnyvb25-88-0270 14:04-4350ZjX8% (BldA) [Mass fraction]95 %Brian Arevalo MD Work Phone: 1(885) [phone]czfuz99-13-7602 14:04-0400Systolic blood pressure 134 mm[Hg]Brian Arevalo MD Work Phone: 1(687) [phone]ssfnk65-32-5029 13:00-0400Body fwlmomoqykk61.91 [degF][address] Work Phone: 1(243) [phone] 13:00-0400Diastolic blood qxdgcabc67 mm[Hg] [address] Work Phone: 1(623) 472-638407-14-2021 13:00-0400Heart rate73 /min[address] Work Phone: 1(735) 176-958007-14-2021 13:00-0400Respiratory rate18 /min[address] Work Phone: 1(485) 932-402107-14-2021 13:00-0400Systolic blood leajroeh970 mm[Hg] [address] Work Phone: 1(374) 811-420201-20-2021 13:08-0500Body Fizdnqjynws94.01 [degF][address], TT91-36-1875 13:08-0500BP Pqvpsjmjm48 mm[Hg][address], OQ45-23-1996 13:08-0500BP Irwhncjz195 mm[Hg][address], [place] 12-04-2020 13:08-0500Pulse (Heart Rate)76 /min[address] 12-04-2020 13:08-0500Respiratory Rate16 /min[address], AG55-79-8715 13:20-0500Body Tesxbmaimoz72.01 [degF][address], GY90-26-6396 13:20-0500BP Wakblbesr50 mm[Hg][address], PE28-22-5182 13:20-0500BP Jnuczzfy583 mm[Hg][address], GY94-11-1680 13:20-0500Pulse (Heart Rate)79 /minMwh [address] [place] [address], HM49-28-4624 13:20-0500Respiratory Rate16 /minMwh [address] [place] [address], TT28-15-7980 11:34-0400Body Nhlgjhselja95.2 [degF][address], VX80-12-4676 11:34-0400BP Quzpcyrdn32 mm[Hg][address], OS61-63-2367 11:34-0400BP Jpekswyx547 mm[Hg][address], BQ24-65-2185 11:34-0400Pulse (Heart Rate)76 /minMwh [address] [place] [address], [place] 09-05-2020 11:34-0400Respiratory Rate16 /min[address], WV96-93-2730 13:07-0400Body Hjhrkbpveev93.7 [degF][address], TY30-36-5864 13:07-0400BP Wrenmmbfp03 mm[Hg][address], NB50-87-7165 13:07-0400BP Uwewpvcn614 mm[Hg][address], NJ66-42-9220 13:07-0400Pulse (Heart Rate)68 /minMwh [address] [place] [address], YL91-41-1028 13:07-0400Respiratory Rate18 /minM[address], HI94-81-0583 13:52-0400Body Lapkvqbrbtj93.3 [degF][address], AG57-57-5745 13:52-0400BP Wdleykzoa15 mm[Hg][address], LF88-80-6983 13:52-0400BP Vvoayqko091 mm[Hg][address], QP56-70-9779 13:52-0400Pulse (Heart Rate)72 /minMwh [address] [place] [address], [place] 07-10-2020 13:52-0400Respiratory Rate18 /minM[address], FL62-67-6228 13:21-0400Body Nmquqyojpls38.01 [degF][address], FN96-11-6313 13:21-0400BP Xtojdakev47 mm[Hg][address], MP86-75-6773 13:21-0400BP Gfqovjhd915 mm[Hg][address], FA21-11-7696 13:21-0400Pulse (Heart Rate)66 /minM[address], QN71-56-6846 13:21-0400Respiratory Rate16 /min[address], PH12-96-8784 13:03-0400Body Sywtwovmnyb42 [degF][address], JR22-41-9682 13:03-0400BP Zfiftosix07 mm[Hg][address], IE80-54-8666 13:03-0400BP Aciaucil266 mm[Hg][address], [place] 05-13-2020 13:03-0400Pulse (Heart Rate)72 /min[address], [place] 05-13-2020 13:03-0400Respiratory Rate16 /min[address], DN06-98-2892 12:00-0500P[facility] ([facility] Rate)[facility] WE23-70-3783 11:16-0500Body Qaanoouygss58.1 [degF][facility], SV93-69-9357 11:16-0500BP Nklugckox72 mm[Hg][facility], QY71-33-4145 11:16-0500BP Ommgkypq412 mm[Hg][facility], QP18-14-8507 11:16-0500Pulse Vkeyrifu28 %[facility], EY48-90-8293 11:16-0500Respiratory Rate18 /[facility], XO60-06-4168 06:30-0500BMI (Body Mass Index)42.03 kg/x5TbwhtzzfTrego, [place] 10-07-2019 06:30-0500Body yzcnob692.09 kgTrego, [place] 09-29-2019 18:40-6146Nveved050.3 cmVirender [facility], HM13-94-8115 15:45-0500Body Ewulapxunex56.01 [degF][facility], [place] 09-29-2019 15:45-0500BP Ktzqrtede25 mm[Hg][facility], [place] 09-29-2019 15:45-0500BP Ncnezgcr439 mm[Hg][facility], [place] 09-29-2019 15:45-0500Pulse (Heart Rate)74 /[facility], DZ11-07-9465 15:45-0500Pulse Bgrmlzjd66 %[facility], [place] 09-29-2019 15:45-0500Respiratory Rate20 /[facility], IA02-43-9902 10:11-3179Ppubzj052.3 [facility], [place] 09-29-2019 05:10-0500BMI (Body Mass Index)42.29 kg/v2JbdvvgixAdena [facility], MV93-08-5648 05:10-0500Body iqftat482.91 kgAdena [facility], DU91-08-5744 08:32-0400Body Tqkbzrbbtjn49.8 [degF]Mami Molina [facility], GE69-33-2932 08:32-0400BP Rlocnvcyy77 mm[Hg]Mami Molina [facility], LW58-38-9359 08:32-0400BP Wyboweoj507 mm[Hg]Mami Molina [facility], TQ23-38-5745 08:32-0400Pulse (Heart Rate)92 /minSouravace NaomiK[facility]tering [facility], VT05-33-7857 08:32-0400Pulse Lbdabfsy38 %Mami Molina [facility], PK63-96-9578 08:32-0400Respiratory Rate20 /minSouravace Jesse [facility], MI24-59-3655 11:15-0400BMI (Body Mass Index)43.71 kg/m2 [address] [facility] medical centergayathri [facility], QM69-29-2321 11:15-0400Body hmsoxz435.26 kg Mami Salg[address] rita's medical centergayathri [facility], LI34-24-0115 11:15-4198Lbroil199.3 cmCdiogo GlaserMagruder Hospitalgayathri [facility], LQ86-50-6831 03:56-0400Respiratory rateNOT REPORTED [facility], BN88-75-9873 01:38-0400Pulse Hwnezhwj685 % Mami [facility], FY63-31-8418 01:38-0400Respiratory Rate18 /min [facility], RZ40-71-2028 00:45-0400BP Bbembwlcu10 mm[Hg] [facility], JB59-67-6940 00:45-0400BP Vvehbzam398 mm[Hg] [facility], GJ67-67-8207 23:19-0400Pulse (Heart Rate)84 /minChjamieace [facility], CT57-94-4437 21:46-0400Body Uzravghtljr94.4 [degF]Mami [facility], [place] Encounters Encounter DateEncounter TypeCare ProviderFacilityStart: 09-26-2025 End: 67-63-7678Cnpcrm OnlyJessy Byrne [facility] Heart & Vascular PhysiciansComment on above:S/P TAVR (transcatheter aortic valve replacement) (Primary Dx)Start: 09-25-2025 End: 64-24-0466Omwcgocukeedm Rosalinda Byrne [facility] Heart & Vascular PhysiciansStart: 34-59-9775Flsqtrgfpf and management of inpatientATISH P Holzer Hospitaltart: 08-22-2025 End: 42-78-9198fdnftqghgjFZPIB R ALCoshocton Regional Medical Centertart: 07-17-2025 End: 35-79-8523ucpudvmbosEFJCH R ALCoshocton Regional Medical Centertart: 07-17-2025 End: 15-30-4257Tcpeijxjfw hospital visit by physicianM Med Onc 1MWHZ MED ONCComment on above:Carcinoid tumor of stomach, unspecified whether malignant (HCC) (Primary Dx)Start: 06-14-2025 End: 57-39-1324tlgsyospekUMPNT BACKMercy Willard HospitalStart: 06-14-2025 End: 65-74-2704Yqjytmmnnr hospital visit by physicianSt[facility] Rm 1MBERTR[facility] MED ONCComment on above:Carcinoid tumor of stomach, unspecified whether malignant (HCC) (Primary Dx)Primary osteoarthritis of both kneesStart: 04-30-2025 End: 34-91-6320novdsaxhiaITDQ BRINDA ALIMercy Cucumber HospitalStart: 04-30-2025 End: 27-47-4367Nwbfxrfzau [facility] 2 [facility] Cardiac RehabComment on above:ArrivedStart: 04-27-2025 End: 19-49-0398uyyzcxptonINWLB [facility] HospitalStart: 04-27-2025 End: 90-06-2258Vlufqfpnpe hospital visit by physicianSt. [facility] Med Onc 1MBERTRAND CHAFFEE [facility]OSPITAL MED ONCComment on above:Carcinoid tumor of stomach, unspecified whether malignant (HCC) (Primary Dx)Start: 04-23-2025 End: 06-50-8506xebhmcniouJMWPMCiara Michelle [facility] HospitalStart: 04-23-2025 End: 35-60-1681Tbnbcxfmqe hospital [facility] by physicianSt. [facility] 2 [facility] LABComment on above:Malignant carcinoid tumor of stomach (HCC); Carcinoid tumor of stomach, unspecified whether malignant (HCC); Malignant neoplasm metastatic to liver (HCC); Poorly controlled type 2 diabetes mellitus with complication (HCC)ArrivedStart: 04-16-2025 End: 09-41-7810ixtygmsogbHIWH BRINDA ALIMercy Cucumber HospitalStart: 04-16-2025 End: 98-25-3520Isbuygetwa hospital visit by physicianSt. [facility] Rm 2 [facility] Cardiac RehabComment on above:ArrivedStart: 04-11-2025 End: 29-99-7868oznungklmoTNLJ BRINDA ALIMercy Cucumber HospitalStart: 04-11-2025 End: 77-92-3523Lrburieupp hospital visit by physicianSt. [facility] Cardiop[facility] Rm 2 MTHZ Cardiac RehabComment on above:ArrivedStart: 04-03-2025 End: 81-91-0927udcxazygzzRMKL BRINDAAlegent Health [facility] HospitalStart: 04-03-2025 End: 05-91-5486Knsfmysicw hospital visit by physicianNewton [facility] RoomLENOX [facility]ILL [facility] Cardiac RehabComment on above:ArrivedStart: 03-22-2025 End: 39-08-5916cnpoazzvpzIPAKL [facility] HospitalStart: 03-22-2025 End: 56-05-8628Elfsklrnwo hospital visit by physicianSt. [facility] Med Onc 1MWHZ MED ONCComment on above:Carcinoid tumor of stomach, unspecified whether malignant (HCC) (Primary Dx)Start: 02-22-2025 End: 33-95-7748oozlczrjisOTPGC BACKMercy Willard HospitalStart: 02-22-2025 End: 13-71-1704Lkvjskkdah hospital visit by physicianSt. [facility] Med Onc 1MWHZ LaboratoryComment on above:Poorly controlled type 2 diabetes mellitus with complication (HCC)Carcinoid tumor of stomach, unspecified whether malignant (HCC)Start: 02-09-2025 End: 15-42-4830Azobgstaws and management of inpatientArtawana Constantino DO Work Phone: stvz Car 1- SICUComment on above:NSTEMI (non-ST elevated myocardial infarction) (HCC) (Primary Dx); Coronary artery disease with angina pectoris, unspecified vessel or lesion type, unspecified whether muscogee or transplanted heartStart: 01-10-2025 End: 90-79-0949wnlbbhjvveOKYLF [facility] HospitalStart: 01-10-2025 End: 21-85-8425Kalxyozqwd hospital visit by physicianSt. [facility] Med Onc 1MWHZ MED ONCComment on above:ArrivedStart: 12-13-2024 End: 09-80-0190zotrtcupinBYMQCCiara Michelle [facility] HospitalStart: 12-13-2024 End: 70-39-1351Fgwuxymwdk hospital visit by physicianSt. [facility] Med [facility]c Rm 1MZ MED ONCComment on above:Carcinoid tumor of stomach, unspecified whether malignant (Primary Dx)Start: 11-13-2024 End: 44-45-6269kzeyqskyjtRMJNL Saad Michelle [facility] HospitalStart: 11-13-2024 End: 74-34-6389Nkwbwhdnvc hospital visit by physicianSt. [facility] Med Onc 1MZ MED ONCComment on above:Carcinoid tumor of stomach, unspecified whether malignant (Primary Dx)Start: 10-19-2024 End: 15-05-7610odcfemzwzyFCQDCharissa Pederson [facility] HospitalStart: 10-19-2024 End: 99-28-5545Lyarmyhtbd hospital visit by physicianAbdirizak Oro MD Work Phone: mwhz LaboratoryComment on above:Poorly controlled type 2 diabetes mellitus with complication (HCC); Other iron deficiency anemia; Carcinoid tumor of stomach, unspecified whether malignant; Malignant neoplasm metastatic to liver (HCC)Vitamin D deficiency; Mixed hyperlipidemia; Coronary artery disease involving muscogee coronary artery of 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 angina pectoris; Benign essential HTN; SOB (shortness of breath)Start: 10-10-2024 End: 34-84-1776fdbrjkphnhIHUQL Saad STOVER-Yarely [facility] HospitalStart: 10-10-2024 End: 61-56-2180Kdkmyxfikk hospital visit by physicianSt. [facility] Med Onc 1MZ MED ONCComment on above:Carcinoid tumor of stomach, unspecified whether malignant (Primary Dx)Start: 09-06-2024 End: 36-75-3339ipltxnxzvbDLRPU Saad STOVERYarely [facility] HospitalStart: 08-29-2024 End: 29-79-6829Rwqemeabrb hospital visit by physicianNacho Montiel MD Work Phone: stvz CVORStart: 06-27-2024 End: 11-20-0717Acjpufspiztsc procedureNess LaiKettering Health [facility] Campus Cardio Pulmonary RehabComment on above:Phase II Cardiac RehabStart: 06-21-2024 End: 49-76-4652PjozlmWneajf Weekley [facility] Heart & Vascular Physicians Comment on above:Medication RefillStart: 06-15-2024 End: 73-73-3855Foulwwcccj and management of inpatientHuchelsieein Maida Palacios DO Work Phone: [phone] [place] [address] Intermediate Care UnitStart: 06-12-2024 End: 74-05-6421Zipejo outpatient visit 10 Monty Arevalo MD Work Phone: [facility] Surgical SpecialistsComment on above:ESRF (end stage renal failure) (HCC) (Primary Dx)Start: 06-12-2024 End: 90-76-5502lvjcnxxpmyVEECV BACKOhio Health AmbulatoryStart: 06-07-2024 End: 38-29-9598Vfwyqjrqkg hospital visit by physicianSt. [facility] Op Treatment Appling 1MWHZ OP NursingComment on above:Carcinoid tumor of stomach, unspecified whether malignant (Primary Dx)Start: 49-74-7474Rtzjzivofcnsv examination Favian Arevalo MD Work Phone: [place] JerseyHealthStart: 05-04-2024 End: 68-82-6318Xqpkoqywcd hospital visit by physicianSt. [facility] Med Onc Rm 1MWHZ MED ONCComment on above:Canceled (Other)Start: 05-01-2024 End: 88-16-2907Lelmrp outpatient visit 25 minutesBrian Arevalo MD Work Phone: [facility] Surgical SpecialistsComment on above:ESRF (end stage renal failure) (HCC) (Primary Dx)Start: 05-01-2024 End: 20-53-4752trozvcdzrnOKDJF BACKOhio Health AmbulatoryStart: 03-27-2024 End: 05-62-8914Lopsii outpatient new 45 Margaret Miller MD Work Phone: [facility] Surgical SpecialistsComment on above:GIST, non-malignant (Primary Dx)Start: 03-27-2024 End: 06-51-7166gryjwzmqfsZHXKU [facility] AmbulatoryStart: 03-22-2024 Transcrida Miller MD Work Phone: [facility] Surgical SpecialistsComment on above:End stage renal disease (HCC) (Primary Dx)Start: 03-03-2024 End: 72-30-7558Rgrdwjtvhy hospital visit by physicianSt. [facility] Med Onc [address] MED ONCComment on above:Carcinoid tumor of stomach, unspecified whether malignant (Primary Dx)Start: 01-13-2024 End: 00-38-6005Bsdowntvgv hospital visit by physicianSt. [facility] Med Onc [address] MED ONCComment on above:Carcinoid tumor of stomach, unspecified whether malignant (Primary Dx)Start: 50-67-0278grrfoidwefYUSOOQARELegacy Health Ambulatory Start: 12-03-2023 End: 67-80-3738Pwjmohmfka hospital visit by Florence Carlson MD Work Phone: MWHZ LaboratoryStart: 25-40-1070bhwfhvubwuUOQOJCSXSLegacy Health AmbulatoryStart: 07-14-2023 End: 45-12-0865Bqbhtjqzgg hospital visit by physicianSt. [facility] [address] MED ONCComment on above:Carcinoid tumor of stomach, unspecified whether malignant (Primary Dx)Start: 07-13-2023 End: 95-56-5534Tcqbwhglcn hospital visit by physicianSt. [facility] [address] MED ONCComment on above:Canceled (Patient)Start: 05-13-2023 End: 02-71-8723Zgaklkiwji hospital visit by physicianSt. [facility] [address] MED ONCComment on above:Carcinoid tumor of stomach, unspecified whether malignant (Primary Dx)Start: 05-05-2023 End: 97-17-3906Ioswqumtep hospital visit by physicianSt. [facility] ONCStart: 03-22-2023 End: 25-90-9338Avjdrmunom hospital [facility] by physicianSt. [facility] Additional Xray At Mw [facility] LaboratoryComment on above:Vitamin D deficiency; Mixed hyperlipidemia; Coronary artery disease involving muscogee coronary artery of 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 angina pectoris; Benign essential HTNStart: 03-08-2023 End: 23-05-5282Aatsbxkglx hospital visit by physicianSt. [facility] [address] LaboratoryComment on above:Carcinoid tumor of stomach, unspecified whether malignant; Poorly controlled type 2 diabetes mellitus with complication (HCC)Carcinoid tumor of stomach, unspecified whether malignant (Primary Dx)Start: 03-03-2023 End: 20-10-7316Kjybkpgvoe hospital visit by physicianSt. [facility] [address] MED ONCComment on above:Canceled (Patient)Start: 02-03-2023 End: 99-96-6549Wrmtuvnuxa hospital visit by physicianSt. [facility] [address] MED ONCComment on above:Carcinoid tumor of stomach, unspecified whether malignant (Primary Dx)Start: 01-05-2023 End: 88-05-3836Duyfrfoihu [facility] [address] MED ONCComment on above:Carcinoid tumor of stomach, unspecified whether malignant (Primary Dx)Start: 12-08-2022 End: 58-58-8492Xrfofsgqsu hospital [facility] by physician[facility] [address] LaboratoryComment on above:Carcinoid tumor of stomach, unspecified whether malignant (Primary Dx)Start: 11-12-2022 End: 14-07-2763Yzsxiazmac [facility] [address] MED ONCComment on above:Carcinoid tumor of stomach, unspecified whether malignant (Primary Dx)Poorly controlled type 2 diabetes mellitus with complication (HCC) Controlled type 2 diabetes mellitus without complication, with long-term current use of insulin (HCC)Start: 08-11-2022 End: 90-59-7140Cehrvpdcmu [facility] by physician[facility] [address] LaboratoryComment on above:Mixed hyperlipidemiaMalignant carcinoid tumor of stomach (HCC)Carcinoid tumor of stomach, unspecified whether malignant (Primary Dx)Start: 07-14-2022 End: 29-78-5635Pxoyypaogp hospital visit by Florence Carlson MD Work Phone: [facility] LaboratoryComment on above: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)Start: 07-10-2022 End: 86-17-8467Jrikkzmdkr [facility] [address] MED ONCStart: 06-09-2022 End: 21-51-7420Bkyfokkpao [facility]St[facility] [address] MED ONCComment on above:Canceled (Patient preference)Start: 05-25-2022 End: 19-79-9856Rseqehsyut hospital visit by Florence Carlson MD Work Phone: mWHZ LaboratoryStart: 2022 End: 68-71-9450Umypiukkxq [facility] by physician[facility] [address] MED ONCComment on above:Carcinoid tumor of stomach, unspecified whether malignant (Primary Dx)Start: 04-14-2022 End: 04-68-5800Qidimvcian [facility] physicianSt[facility] [address] MED ONCComment on above:Carcinoid tumor of stomach, unspecified whether malignant (Primary Dx)Start: 03-17-2022 End: 86-63-7843Jlwzfwzcoh [facility] [address] LaboratoryComment on above: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); Vitamin D deficiency; Mixed hyperlipidemia; Coronary artery disease involving muscogee coronary artery of 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 angina pectoris; Fatigue, unspecified type; Shortness of breath; NABOR (obstructive sleep apnea); Benign essential HTNCarcinoid tumor of stomach, unspecified whether malignant (Primary Dx)Vitamin D deficiency; Mixed hyperlipidemia; Coronary artery disease involving muscogee coronary artery of 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 angina pectoris; Fatigue, unspecified type; Shortness of breath; NABOR (obstructive sleep apnea); Benign essential HTNStart: 01-19-2022 End: 23-95-1284Jhgtgfwxkz [facility] [address] MED ONCComment on above:Carcinoid tumor of stomach, unspecified whether malignant (Primary Dx)Start: 01-16-2022 End: 56-50-4207Udgejnnurn hospital visit by Florence Carlson MD Work Phone: mZ LaboratoryStart: 12-22-2021 End: 88-84-7588Txjoxvecic [facility] by physicianSt[facility] [address] MED ONCComment on above:Carcinoid tumor of stomach, unspecified whether malignant (Primary Dx)Start: 10-22-2021 End: 35-17-3398Hkmvdeeihv hospital visit by Florence Carlson MD Work Phone: mS LaboratoryComment on above: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)Start: 09-23-2021 End: 52-55-7678Ppwttgqaxs hospital visit by physicianM Med Onc 1MZ MED ONCComment on above:Carcinoid tumor of stomach, unspecified whether malignant (Primary Dx)Start: 07-28-2021 End: 44-89-7486Wgffqdmyxg hospital visit by physicianM Med Onc 1MZ MED ONCComment on above:Carcinoid tumor of stomach, unspecified whether malignant (Primary Dx)Start: 07-25-2021 End: 92-22-2051Riyqqsmniv hospital visit by Florence Carlson MD Work Phone: mwhz LaboratoryStart: 05-28-2021 End: 39-54-3671Bgryhdhwpw hospital visit by physicianM Med Onc 1MZ MED ONCComment on above:Carcinoid tumor of stomach, unspecified whether malignant (Primary Dx)Start: 04-25-2021 End: 87-96-9019Kymsvczybr hospital visit by physicianM Med Onc 1MZ MED ONCComment on above:Carcinoid tumor of stomach, unspecified whether malignant (Primary Dx)Carcinoid tumor of stomach, unspecified whether malignant; 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)Start: 03-28-2021 End: 63-49-9391Cmdajumwwa hospital visit by physicianM Med Onc 1MZ MED ONCComment on above:Carcinoid tumor of stomach, unspecified whether malignant (Primary Dx)Start: 02-26-2021 End: 17-65-3352Fnxrjavflb hospital visit by physicianM Med Onc 1MZ MED ONCComment on above:Carcinoid tumor of stomach, unspecified whether malignant (Primary Dx)Start: 01-29-2021 End: 72-53-9754Ugkalpebnf hospital visit by physicianM Med Onc 1MZ MED ONCComment on above:Carcinoid tumor of stomach, unspecified whether malignant (Primary Dx)Start: 01-28-2021 End: 12-13-7553Ekxvrnkjgf [facility] Comment on above: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)Start: 01-01-2021 End: 83-21-6964Durzmpebev [facility] by physicianSt[facility] MED ONCComment on above:Carcinoid tumor of stomach, unspecified whether malignant (Primary Dx)Start: 12-04-2020 End: 10-33-3109Rcxkgphdyb hospital [facility] by physicianSt[facility] [address] MED ONCComment on above:Carcinoid tumor of stomach, unspecified whether malignant (Primary Dx)Start: 11-04-2020 End: 69-80-5023Vwfdygsnic hospital [facility] by physicianSt[facility] [address] MED ONCComment on above:Carcinoid tumor of stomach, unspecified whether malignant (Primary Dx)Start: 10-28-2020 End: 37-22-5265Wmhzlkmpsb [facility] Comment on above:Mixed hyperlipidemia; 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); Benign essential HTNStart: 10-04-2020 End: 29-74-8275Liuscapbkp hospital [facility] by physicianSt[facility] [address] MED ONCComment on above:Carcinoid tumor of stomach, unspecified whether malignant Start: 09-18-2020 End: 41-66-4741Tudzpkvhfx hospital visit by [facility] Laboratory Comment on above:Carcinoid tumor of stomach, unspecified whether malignantStart: 09-05-2020 End: 98-55-9286Kywudiossu [facility] by physicianSt[facility] [address] MED ONCComment on above:Carcinoid tumor of stomach, unspecified whether malignant (Primary Dx)Start: 08-07-2020 End: 64-24-4825Xfvolgrlqb hospital visit by physicianSt[facility] [address] MED ONCComment on above:Carcinoid tumor of stomach, unspecified whether malignant (Primary Dx)Start: 07-10-2020 End: 05-54-3853Ylorlkhtfz hospital [facility] by physicianSt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 1MZ MED ONCComment on above:Carcinoid tumor of stomach, unspecified whether malignant (Primary Dx)Start: 05-13-2020 End: 03-30-8242Zgedwfccpr hospital visit by physicianSt[facility] Rm 1MZ MED ONCComment on above:Carcinoid tumor of stomach, unspecified whether malignant (Primary Dx)Start: 04-12-2020 End: 29-32-9263Pjnbzlaida hospital visit by physicianSt[facility] 1MZ MED ONCComment on above:Carcinoid tumor of stomach, unspecified whether malignant (Primary Dx)Start: 04-03-2020 End: 10-15-9755Tslgtvldgr [facility] Laboratory Comment on above:Carcinoid tumor of stomach, unspecified whether malignantStart: 03-21-2020 End: 14-21-8292Tbvducwrdo hospital [facility] by physicianSt[facility]hab Ursys7TVNK CARDIAC REHABComment on above:Canceled (Other)Start: 03-11-2020 End: 31-52-5260Rwfjzaptbl hospital [facility] by physicianSt[facility] 1MZ MED ONCComment on above:Carcinoid tumor of stomach, unspecified whether malignant Start: 02-12-2020 End: 06-30-6051Rtrfywwnwf [facility] physicianSt[facility] Card [facility]hab Jybmx9AZFI CARDIAC REHABComment on above:Canceled (Other)Start: 02-09-2020 End: 73-12-2842Pyclyntfuu hospital visit by physicianSt[facility] Med [facility]c [address] MED ONCComment on above:Carcinoid tumor of stomach, unspecified whether malignant (Primary Dx)Start: 01-15-2020 End: 03-00-2797Ycbdrkvwtq [facility] physicianSt[facility] Card [facility]hab Fimeo3NGDB CARDIAC REHABComment on above:Canceled (Patient)Start: 01-12-2020 End: 19-80-7144Yfcncsywpt hospital [facility] by physicianSt[facility] 1MZ MED ONCComment on above:Carcinoid tumor of stomach, unspecified whether malignant (Primary Dx)ArrivedStart: 01-01-2020 End: 12-02-7127Huhborrgxi hospital visit by physicianStefano Banks CARDIAC REHABComment on above:ArrivedStart: 12-18-2019 End: 51-70-5532Kayvopffvk hospital visit by physicianStefano Banks CARDIAC REHABComment on above:ArrivedStart: 12-11-2019 End: 55-96-2037Xeietplfqi hospital visit by physicianStefano PlazaSherrie MED ONCComment on above:Carcinoid tumor of stomach, unspecified whether malignant (Primary Dx) Start: 12-08-2019 End: 91-08-7138Hkcychtqhd hospital visit by physicianStefano Banks CARDIAC REHABComment on above:ArrivedStart: 11-29-2019 End: 25-07-0077Ctolomxvlq hospital visit by physicianStefano Banks CARDIAC REHABComment on above:ArrivedStart: 11-20-2019 End: 57-63-1388Cehwrkhrip hospital visit by physicianStefano Banks CARDIAC REHABComment on above:ArrivedStart: 11-13-2019 End: 64-55-3326Usqfnrovfu hospital visit by physicianStefano PlazaSherrie MED ONCComment on above:Carcinoid tumor of stomach, unspecified whether malignant (Primary Dx) Start: 11-03-2019 End: 75-63-8084Rqxolkubow hospital visit by physicianStefano Banks CARDIAC REHABComment on above:ArrivedStart: 10-20-2019 End: 84-47-7445Dryfkimyko hospital visit by physicianLion Poon Laboratory Start: 10-17-2019 End: 94-32-7458Amhxpdoshi hospital visit by physicianfady Card Rehab Jean-Paul CARDIAC REHABComment on above:ArrivedStart: 10-16-2019 End: 34-29-9836Ikhaeciijx hospital visit by physicianfady Med Onc Rm [facility] MED ONCComment on above:Carcinoid tumor of stomach, unspecified whether malignant (Primary Dx)Start: 09-29-2019 End: 92-81-1647Zkzogntenk and management of inpatientVirender José Manuel Pino Work Phone: stvz CAR 2Comment on above:Coronary artery disease involving muscogee coronary artery of 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 angina pectoris (Pr imary Dx); Uncontrolled type 2 diabetes mellitus with hyperosmolarity without coma, with long-term current useof insulin (HCC); Coronary artery disease, occlusiveStart: 09-28-2019 End: 32-81-5057Jcbnpsvhm department patient visitPraeli Rodriges Work Phone: [facility] MED SURG TELEMETRYComment on above:Chest pain, unspecified type (Primary Dx); HyperglycemiaStart: 09-28-2019 End: 68-30-1682Wzscjjqrxg [facility] Comment on above:Benign essential HTN; Uncontrolled type 2 diabetes mellitus with hyperosmolarity without coma, with long-term current useof insulin (HCC); Mixed hyperlipidemia; Anemia due to other cause, not classifiedStart: 09-18-2019 End: 78-72-1839Mrihbemwpy [facility] MED ONCComment on above:Carcinoid tumor of stomach, unspecified whether malignant (Primary Dx)Start: 09-12-2019 End: 84-65-2352Maxdzietdk [facility] physician[facility] Laboratory Comment on above:Carcinoid tumor of stomachStart: 09-04-2019 End: 19-96-9376Kurucoxbhc and management of inpatientChcarmina Molina Work Phone: stvz 4C Onc/Med SurgComment on above:Hematoma (Primary Dx); CKD (chronic kidney disease) stage 3, GFR 30-59 ml/min ([facility]); REJI (acute kidney injury) ([facility])Start: 09-03-2019 End: 42-89-3093Nnzrcmnfz department patient visitChcarmina Bria Daniela Work Phone: [facility] EDComment on above:Hematoma (Primary Dx); Closed fracture of fourth thoracic vertebra, unspecified fracture morphology, initial encounter ([facility]); Chronic renal failure, stage 3 (moderate) ([facility]); Acute blood loss anemiaStart: 08-29-2019 End: 19-84-6129Yxyzoaidhf [facility] Start: 08-18-2019 End: 65-06-4307Bceashapwm [facility] by physicianSt[facility] 1MWHZ MED ONCComment on above:Carcinoid tumor of stomach, unspecified whether malignant (Primary Dx)Start: 06-28-2019 End: 34-50-6838Pbiyxlvssb hospital visit by Florence [facility]sonK[facility] Laboratory Comment on above:Benign essential HTN; CKD (chronic kidney disease) stage 3, GFR 30-59 ml/min (HCC); Mixed hyperlipidemia; Uncontrolled type 2 diabetes mellitus with hyperosmolarity without coma, with long-term current useof insulin (HCC) Procedures DateProcedureProcedure DetailPerforming ClinicianStart: 00-06-1436Ngjsiizlaw exam knee complete 4/more viewsLion Carlson MD Work Phone: start: 16-28-0222Iqfpprohqbkbx metabolic panelAdestee Serna MD Work Phone: Start: 03-85-8243Xhbjh metabolic panel calcium total Charles Nowak MD Work Phone: Start: 61-92-4880Vnypjnm blood reagent stripSyed Brinda Bey MD Work Phone: Start: 74-01-4327Omm routine ecg w/least 12 lds w/i&r Mak Brinda Bey MD Work Phone: Start: 02-14-2025 End: 77-48-9396Xxadx count hemoglobinSyed Brinda Bey MD Work Phone: Start: 78-39-7337Dilqahwk screenMohammad Dougie I, DO Work Phone: Start: 24-12-6020Gplchah blood reagent stripSyed Brinda Bey MD Work Phone: Start: 70-96-4177Rnfoz metabolic panel calcium total Zee Gonzales [employer] Work Phone: Start: 02-13-2025 End: 42-09-6235Pfwvftj blood reagent stripSyed Brinda Bey MD Work Phone: Start: 51-33-0634Ospfvco blood reagent stripSyed Brinda Bey MD Work Phone: Start: 02-13-2025 End: 78-04-0476Xnmchgeyvak of packed red blood cellsGrey Chacon MD Work Phone: start: 02-13-2025 End: 22-36-0928Rkpqs metabolic panel calcium totalSi Bre RICHARDSON Work Phone: Start: 52-60-4864Mej routine ecg w/least 12 lds i&r onlySyed Brinda Bey MD Work Phone: Start: 26-72-4679Agpnpegebygs of left ventricular assist deviceSyed Brinda Bey MD Work Phone: Start: 35-37-7059Vmzuvmqxhtwm coronary intervention Mak Brinda Bey MD Work Phone: Start: 85-09-7969MURYA BANK SPECIMENMosophy Perez MD Work Phone: Start: 78-45-5944Rdljz typing serologic Freddy Chacon MD Work Phone: start: 02-13-2025 End: 59-53-0468Virpclbctoazcq time partial plasma/whole bloodSyed Brinda Bey MD Work Phone: Start: 16-57-6890Jeqgxmd blood reagent stripMosophy Perez MD Work Phone: Start: 74-63-7207Cblva metabolic panel calcium total Zee Janet [employer] Work Phone: Start: 02-13-2025 End: 19-14-2450Eirbufsxkoglcf time partial plasma/whole bloodSyed Brinda Bey MD Work Phone: Start: 04-94-0747Atgzbxw blood reagent Carol Aguilar MD Work Phone: Start: 61-82-8476UCYXMJZJS ID DOCUMENTTania Aguilar MD Work Phone: Start: 90-76-6776Eqzw count misc body fluids w/differential countTania Aguilar MD Work Phone: Start: 51-20-4035Kar prim src gram/giemsa stain bct fungi/cellTania Aguilar MD Work Phone: Start: 51-06-0906OJH w or wo Gay reece MD Work Phone: Start: 34-04-2376Qdxajmi blood reagent Carol Aguilar MD Work Phone: Start: 11-67-6761Eezvwnlqtvhq coronary intervention Jm Bernabe [employer] Work Phone: Start: 04-28-3478Vruelpq blood reagent Carol Aguilar MD Work Phone: Start: 02-12-2025 End: 26-86-4717Dbnye metabolic panel calcium totalJessica Janet [employer] Work Phone: Start: 38-65-7594Objpipp blood reagent Carol Aguilar MD Work Phone: Start: 20-13-6775Zgpscigzcapnrh time partial plasma/whole bloodTania Aguilar MD Work Phone: Start: 61-40-4585Xlgoyqc blood reagent Carol Aguilar MD Work Phone: Start: 88-44-6282Niccseu blood reagent Carol Aguilar MD Work Phone: Start: 10-85-2562Blnuuru blood reagent Carol Aguilar MD Work Phone: Start: 27-12-5091Qrtunkk blood reagent Carol Aguilar MD Work Phone: Start: 19-84-3971Kyfym metabolic panel calcium total Cynthia Miester [employer] Work Phone: Start: 48-88-8214Aputiqfjseucqa time partial plasma/whole bloodTania Aguilar MD Work Phone: Start: 04-82-7257Ifktrgr blood reagent Carol Aguilar MD Work Phone: Start: 57-33-3038Bhatfsa blood reagent Carol Aguilar MD Work Phone: Start: 33-59-0151Avigtsp blood reagent stripTania Aguilar MD Work Phone: Start: 12-02-6938Ckmdrlknplifhv time partial plasma/whole bloodTania Aguilar MD Work Phone: Start: 41-49-7398Rhjwecw blood reagent Carol Aguilar MD Work Phone: Start: 08-30-2503Qpz routine ecg w/least 12 lds i&r onlyTania Aguilar MD Work Phone: Start: 19-28-4802Fmatigw blood reagent Carol Aguilar MD Work Phone: Start: 50-43-4080Vqxxhlrxmw exam chest single view Cynthiaazar Magana [employer] Work Phone: Start: 02-10-2025 End: 51-05-1932Bou routine ecg w/least 12 lds i&r onlyAimee Izzy [employer] Work Phone: Start: 49-32-4179Ueywe of magnesiumJanice Lexy Calfee [employer] Work Phone: Start: 64-29-8354XALQM METABOLIC PANEL W/ REFLEX TO MG FOR LOW KJanice Lexy Calfee [employer] Work Phone: Start: 14-56-2945Eolfw panelJanice Lexy Calfee [employer] Work Phone: Start: 76-84-0053IXWL-XA, HEPARINAimee Miester [employer] Work Phone: Start: 02-09-2025 End: 42-93-5020Qjdyn count complete automatedAimee Miester [employer] Work Phone: Start: 02-09-2025 End: 79-38-9279Jnrakzblwg bloodJanannie Preciado [employer] Work Phone: Start: 65-61-9325Yurkrlwcmcryz metabolic panelTrevor Serna MD Work Phone: Start: 91-27-2102Rwyxeyk blood reagent stripDaviade Montiel MD Work Phone: Start: 31-03-6368Mhfazyoi [Moles/volume] in Serum or PlasmaDacandice Montiel MD Work Phone: Start: 82-22-4007ZBZEUOPMPN W/GFR POINT OF CAREDaviade Montiel MD Work Phone: Start: 08-29-2024 End: 09-15-4471Qccf bld gluc mntr dev cleared fda spec home useDavid Angel Montiel MD Work Phone: Start: 70-36-2235Mvmusqxrt [Moles/volume] in Serum or PlasmaDacandice Montiel MD Work Phone: Start: 75-84-5085Yatjnp [Moles/volume] in Serum or PlasmaDacandice Montiel MD Work Phone: Start: 06-22-2024 End: 33-08-3510Qrvmjrv measurementShady Geris DO Work Phone: Start: 02-59-5649Jhnfmwl measurementShady Geris DO Work Phone: Start: 87-04-4772Uatjcgsxpsnwq metabolic panelShady Geris DO Work Phone: Start: 14-92-3672Dsnvxsy measurementShady Geris DO Work Phone: Start: 90-28-0425GLWVJKRQPNOT INPATIENTSboni Miller MD Work Phone: Start: 88-15-1985Sefwkwzfjlewcb time partial plasma/whole bloodEdita Feliciano MD Work Phone: Start: 99-88-5505Onduang measurementShady Geris DO Work Phone: Start: 72-60-5754Bpsy transthorc r-t 2d w/wo m-mode rec f-up/lmtdAmaritza Singh MD Work Phone: Start: 83-92-3136Qof trluml coronary stent w/angio one art/Annmarie Barahona MD Work Phone: Start: 37-78-1436Xfxbxswmhyu time activatedGeneric [facility] Work Phone: Start: 18-12-5385Heumpmaogkaoi metabolic panelShady Geris DO Work Phone: Start: 26-82-6253Bzyhqdoemxvfcr time partial plasma/whole bloodEdita Feliciano MD Work Phone: Start: 46-04-5226Neoxejjxxyzllg time partial plasma/whole bloodEdita Feliciano MD Work Phone: Start: 53-48-2012Iugsrdh measurementGeneric [facility] Work Phone: Start: 06-18-2131Ycteu count complete automatedLatisha Ronel Enciso CNP Work Phone: Start: 86-26-6849Lcvkobl measurementGeneric [facility] Work Phone: Start: 12-61-5875Thtbyic measurementGeneric [facility] Work Phone: Start: 06-96-5373Jmtearczrbwyp metabolic panelShady Geris DO Work Phone: Start: 41-92-3926OVMWBTIGBIAN INPATIENTSunil Gwen Fletcher MD Work Phone: Start: 66-86-1916Gtdphenavhvpp metabolic panelShady Geris DO Work Phone: Start: 97-66-4826Pbeqzjxqvrpcf metabolic panelShady Geris DO Work Phone: Start: 23-88-9145VYXGIUCYLSUO INPATIENTSboni Miller MD Work Phone: Start: 01-36-9436Vocstiwoybeby metabolic panelShady Geris DO Work Phone: Start: 07-61-3379Rce blood cell morphologyShady Geris DO Work Phone: Start: 11-42-8380ZE IR DIALYSIS CATHETER INSERTION TUNNELEDFred Reed Modi MD Work Phone: Start: 17-25-3001PJT w or wo fol wcon,DopplerSunil Gwen Fletcher MD Work Phone: Start: 40-41-6224Iicdhfsgxjruu metabolic panelShady Geris DO Work Phone: Start: 51-38-5548Ky abdomen & pelvis w/o contrast materialShady Geris DO Work Phone: Start: 05-38-6821Nyslrwhfflq timeHussein Maida Palacios DO Work Phone: Start: 79-96-5585Bguwoogqxqaxj metabolic panelHussein Maida Palacios DO Work Phone: Start: 12-40-0342Nbxzbr-up visitFollow-upBRIAN UPtart: 61-84-5656WFHABDMC LAB SCANPirobi Arevalo MD Work Phone: Start: 41-80-2228Qxljr function panelSboni Miller MD Work Phone: Start: 89-11-2537Gchsnebtjf exam chest 2 viewsGreg Carline Oro MD Work Phone: Start: 96-27-0119Knvpxzlorhcjl metabolic panelAbdirizak Oro MD Work Phone: Start: 32-57-3948EQFXZIB FASTING?Abdirizak Oro MD Work Phone: Start: 67-47-5728Dfhecqlkfmqpg metabolic panelTrevor Serna MD Work Phone: Start: 52-83-1074Aaevb function panelSboni Miller MD Work Phone: Start: 77-92-8261Tdhzp albumin quantitativeBilly Aldo RICHARDSON Work Phone: start: 46-82-7237Oibcb metabolic panel calcium total Charles Nowak MD Work Phone: Start: 19-58-4788Bmpxt panelBilkimberly Carlson MD Work Phone: start: 25-84-5745Hncvfndlpresj metabolic panelTrevor Serna MD Work Phone: Start: 88-88-9437Hbtzw metabolic panel calcium total Charles Nowak MD Work Phone: Start: 41-46-7000Ztaph function panelSboni Miller MD Work Phone: Start: 47-49-1785Dgxgewlyqd exam chest 2 viewsAbdirizak Oro MD Work Phone: Start: 63-05-3653Jft routine ecg w/least 12 lds w/i&r Abdirizak Oro MD Work Phone: Start: 03-17-2022 End: 89-38-1482Mdsmkdfivqj panelSboni Miller MD Work Phone: Start: 03-56-7566Pexdo panelAbdirizak Oro MD Work Phone: Start: 03-17-2022 End: 40-32-3235SHVDTVH FASTING?Abdirizak Oro MD Work Phone: Start: 61-21-0864Xxxmz function panelSboni Miller MD Work Phone: Start: 60-29-5231Nvkxc metabolic panel calcium total Charles Gabriella RICHARDSON Work Phone: Start: 85-49-4700Pybaz function panelSboni Miller MD Work Phone: [phone]: 98-18-1416Fphszshxwvecc metabolic panelTrevor Serna MD Work Phone: Start: 67-26-924936 hydroxy includes fractions if performedSwapna Gabeon license of [facility] Work Phone: Start: 17-22-8406Mnkjjpa serum plasma/whole blood Gracie Gabeortonvilleaurea Work Phone: Start: 22-43-5689Pildy of magnesiumSwapna Gabeortonvilleaurea Work Phone: Start: 66-27-4512Odypf of parathormoneSwaa Gabeortonvilleaurea Work Phone: Start: 95-61-6340Bdnff of phosphorus inorganicapna Gabeon license of [facility] Work Phone: Start: 67-65-9766Dkwiq of urea nitrogen quantitative Gracie Gabeortonvilleaurea Work Phone: Start: 42-70-7181Oueru metabolic panel calcium total Charles Gabriella Work Phone: Start: 73-63-8441Ygvhb count hemoglobinSwapna Pepperna Work Phone: Start: 51-86-2303Gkttuzq totalSwapna Gabeortonvillena Work Phone: Start: 71-87-6226Pnzyoogp totalAnant Gabriella Work Phone: Start: 35-02-6612Zcyhuhwszi other sourceSwaa Gabeortonvillena Work Phone: [phone]: 85-95-4918Oimvdhrxgiu panelSbanner [facility] Gabeortonvilleaurea Work Phone: Start: 25-40-4998Dgpysipfjp glycosylated b9eCyojc Gabriella Work Phone: Start: 85-17-6736Evmupvf total xcpt refractometry urineGracie Miller Work Phone: Start: 51-64-2360Nartbdqdqmmfm metabolic panelBilly Back Work Phone: start: 08-41-1181Zzjootovkg glycosylated p2aRgpng Back Work Phone: start: 75-14-8717Tynbl panelBilly Back Work Phone: start: 22-94-8932SPAKBQW FASTING?Lion Back Work Phone: start: 77-98-0192Gzjlv count complete auto&auto difrntl wbcTrevor Serna Work Phone: Start: 20-66-6747Gbrdglvupliva metabolic panelTrevor Serna Work Phone: Start: 37-95-1928Kznhn count complete auto&auto difrntl wbcAdestee Serna Work Phone: Start: 35-54-1301Ryfaickvmtyve metabolic panelAdestee Serna Work Phone: Start: 32-29-6674Icxgw count complete auto&auto difrntl wbcTrevor Serna Work Phone: Start: 13-05-6299Fxbmbizwnwbjg metabolic panelTrevor Serna Work Phone: Start: 22-38-292625 hydroxy includes fractions if performedGracie Miller Work Phone: Start: 46-40-4852Jchhgnm serum plasma/whole blood Gracie Miller Work Phone: Start: 52-68-6837Aiesu of magnesiumSwmaru Miller Work Phone: Start: 78-02-6593Xtxkh of parathormoneSwapna Angela Work Phone: Start: 05-13-0007Atysx of phosphorus inorganicGracie Miller Work Phone: Start: 93-38-0838Dmjyv of urea nitrogen quantitative Gracie Miller Work Phone: Start: 07-09-1242Mnsjq count hemoglobinGracie Miller Work Phone: Start: 80-28-4768Fryphlv totalMarcialapaurea Miller Work Phone: Start: 49-42-2875Lxqicrqdkk other sourceSwaa Angela Work Phone: Start: 05-38-3985Kihjnvimdvf panelSboni Miller Work Phone: Start: 05-41-6382Vuvvyiu total xcpt refractometry urinemaru Miller Work Phone: Start: 16-45-8948CKZSQLE PHASE IIHpf ScanningStart: 47-42-4066SSWFAEZ PHASE IIHpf ScanningStart: 35-05-0397Wpfho of urea nitrogen quantitativeGracie Miller Work Phone: Start: 76-47-3336Pnemuef totalGracie Miller Work Phone: Start: 45-35-5952Fagzxvmmmxl panelSboni Miller Work Phone: Start: 15-24-4445Jsreetn blood reagent stripRadha Killian Murphy Work Phone: Start: 53-91-3339Vwkyovt blood reagent stripSuni Murphy Work Phone: Start: 16-59-4225Kwuorwppqjyuif time partial plasma/whole bloodShereen Louka Work Phone: Start: 80-17-1337Bdjos metabolic panel calcium total Mobasser Reji Work Phone: Start: 64-39-4405Wcnsqrejdxjmcq time partial plasma/whole bloodSherejose guadalupe Lewis Work Phone: Start: 29-81-2150Pdwxnkcggdsyra time partial plasma/whole bloodJessie Che Work Phone: Start: 43-86-4438Povvktq blood reagent stripSherejose guadalupe Lewis Work Phone: Start: 96-34-0672Rhzoqsf blood reagent stripSalisson Lewis Work Phone: Start: 76-21-0350Eyksuzc blood reagent stripSalisson Lewis Work Phone: Start: 10-06-2019 End: 64-79-4751TPUM LAB REPORTHpf ScanningStart: 40-45-7879XOXJAERVJK CARDIAC MARKETING UNDERWRITER PROCEDUREElibulmarodamaryjane Aly Work Phone: Start: 44-99-0791Vwjpz metabolic panel calcium total Mobasser Reji Work Phone: Start: 38-03-0311Rewfs count platelet automated Mobasser Reji Work Phone: Start: 64-47-3830Lihzpvzbldxnll time partial plasma/whole bloodVirender K Odette Work Phone: Start: 63-08-0231Mcqymho blood reagent stripVirender K Odette Work Phone: Start: 62-17-4478Irjtyva blood reagent stripVirender K Odette Work Phone: Start: 93-37-2130Gyxymte blood reagent stripVirender K Odette Work Phone: Start: 74-54-6263Jkowlag blood reagent stripVirender K Odette Work Phone: Start: 60-20-2558Txvyu metabolic panel calcium total Mobasser Reji Work Phone: Start: 26-17-7011Rdklfvczpfwyss time partial plasma/whole bloodMobasser Reji Work Phone: Start: 66-02-2070Kuhhmso blood reagent stripVirender K Odette Work Phone: Start: 24-55-3943Ggqrueygjruqog time partial plasma/whole bloodVirender K Odette Work Phone: Start: 60-33-3858Phrldvm blood reagent stripVirender K Odette Work Phone: Start: 86-66-8317Wvmlfxlyamaqpr time partial plasma/whole bloodVirender K Odette Work Phone: Start: 76-47-1505Mugngcl blood reagent stripVirender K Odette Work Phone: Start: 10-04-2019 End: 55-27-4134Stzgiqd blood reagent stripVirender K Odette Work Phone: Start: 19-41-5051Puipl metabolic panel calcium total Daily [employer] Work Phone: Start: 78-95-8431Keoqo count platelet automated [employer] Work Phone: Start: 20-08-1734Jlaxnioupyyfxs time partial plasma/whole bloodMobasser Reji Work Phone: Start: 41-35-2307Uflkjbseihygsz time partial plasma/whole bloodVirender K Odette Work Phone: Start: 35-14-3037Swhshwd blood reagent stripVirender K Odette Work Phone: Start: 86-77-8675Bvvyier blood reagent stripVirender K Odette Work Phone: Start: 98-31-5162Rddtysqdzxmksz time partial plasma/whole bloodVirender K Odette Work Phone: Start: 42-30-2253Gzbmkfh blood reagent stripVirender K Odette Work Phone: Start: 87-45-7239Xyetmt scan extracranial art compl bi studyAdam Bria Reynoso Work Phone: Start: 38-43-3316Eqg-scan xtr veins complete bilateral studyDaniel Dibardino Work Phone: Start: 85-36-9612Pgu-scan xtr veins unilateral/limited studyZbigniew Reynoso Work Phone: Start: 78-39-9893Nnakn metabolic panel calcium total Mobasser Reji Work Phone: Start: 65-06-2436Friyhszhghofjo time partial plasma/whole bloodVirender K Odette Work Phone: Start: 03-51-8417Knjoclo blood reagent stripVirender K Odette Work Phone: Start: 95-39-7869Euxbfvi blood reagent stripVirender K Odette Work Phone: Start: 90-96-9467Ejcuzzp blood reagent stripVirender K Odette Work Phone: Start: 79-80-2226Stbdrkezopnfux time partial plasma/whole bloodMobasser Reji Work Phone: Start: 10-02-2019 End: 75-75-2616TSLV LAB REPORTHpf ScanningStart: 54-25-0719TDVUDIIXYF CARDIAC MARKETING UNDERWRITER PROCEDUREAmedann Che Work Phone: Start: 99-42-8783Uyngiem blood reagent stripVirender K Odette Work Phone: Start: 21-42-5337Ornqm metabolic panel calcium total BlasProvidence Mission Hospitalmood Work Phone: Start: 37-16-2650Oyceb count complete auto&auto difrntl wbcAdnan R Al-Ho Work Phone: Start: 82-30-5115Diaqapcvjgcigu time partial plasma/whole bloodVirender K Odette Work Phone: Start: 90-61-2866Zdqwgysrjcfjhf time partial plasma/whole bloodVirender K Odette Work Phone: Start: 01-44-5989Icnepccdceqrbc time partial plasma/whole bloodVirender K Odette Work Phone: Start: 19-49-6659Kqbvnvh blood reagent stripVirender K Odette Work Phone: Start: 84-56-0489Ifshn metabolic panel calcium total Mobasser Reji Work Phone: Start: 72-63-5933Ginalzbmisxdry time partial plasma/whole bloodVirender K Odette Work Phone: Start: 57-49-9374Huyzcwb blood reagent stripVirender K Odette Work Phone: Start: 11-35-3708Tvejydl blood reagent stripVirender K Odette Work Phone: Start: 74-46-3964Nuoycoknel glycosylated a2jKhggw R Al-Ho Work Phone: Start: 86-26-5976Axfvsnbvqejttf time partial plasma/whole bloodAdestee R Al-Ho Work Phone: Start: 57-21-3043Wvtveqjamhuava time partial plasma/whole bloodRaza Camilla Work Phone: Start: 81-86-8474Ysudfzp blood reagent stripVirender K Odette Work Phone: Start: 66-87-2006Bhvngbr blood reagent stripVirender K Odette Work Phone: Start: 94-05-2011Goewr count complete automatedOwais Lenard Work Phone: Start: 98-78-0407Krjfuqkbbbudjn time partial plasma/whole bloodOwais Lenard Work Phone: Start: 88-66-2942Btmmsgg blood reagent stripVirender K Odette Work Phone: Start: 11-21-4674Mdyxk of magnesiumDeng Bahena Work Phone: Start: 08-02-3951Jbajr count complete auto&auto difrntl wbcDeng Bahena Work Phone: Start: 19-77-6029Zxhsu count complete automatedDeng Bahena Work Phone: Start: 74-17-2813Nwwrh panelDeng Bahena Work Phone: Start: 28-56-9923Ywaxv of troponin quantitativeDeng Bahena Work Phone: Start: 94-35-7260Ufeysai blood reagent stripVirravi Pino Work Phone: Start: 52-77-5846Ccbnh of troponin quantitativeDeng Bahena Work Phone: Start: 10-05-5753TCONQ OXIMETRY SPOT CHECKDeng Bahena Work Phone: Start: 30-94-4968Xsiq bld gluc mntr dev cleared fda spec home useBilly Back Work Phone: start: 15-96-6447Whwhxwzuyt spect multiple studiesGreg S [facility] Hospital [facility] Southadeola Work Phone: Start: 43-53-4098Oatl bld gluc mntr dev cleared fda spec home useBilly Back Work Phone: start: 16-14-8601ECTMI METABOLIC PANEL W/ REFLEX TO MG FOR LOW KBilly Back Work Phone: start: 87-49-0337Dxmrb of troponin quantitativeBilly Back Work Phone: start: 26-91-6320Bxwc bld gluc mntr dev cleared fda spec home useBilly Back Work Phone: start: 57-05-5448Ddoed of troponin quantitativeBilly Back Work Phone: start: 95-49-9694Nfjq bld gluc mntr dev cleared fda spec home useBilly Back Work Phone: start: 01-52-7609Cwzg tthrc r-t 2d w/wom-mode compl spec&colr dBilly Back Work Phone: start: 99-90-7476Eecuhcqzxm microscopic onlyPrashant Zahira Work Phone: Start: 18-66-2618Psqjr dip stick/tablet rgnt auto w/o microscopyPrashant Zahira Work Phone: Start: 30-09-6656Zijfj of troponin quantitative [employer] Work Phone: Start: 09-28-2019 End: 25-63-8428Xbja bld gluc mntr dev cleared fda spec home useCompumatrix Work Phone: Start: 38-91-9481Fughnqgevo exam chest single view [employer] Work Phone: Start: 52-36-7056Chprw of troponin quantitative [employer] Work Phone: Start: 08-08-7446Ubnij count complete auto&auto difrntl wbcCompumatrix Work Phone: Start: 53-78-1586Gjwlgj dgradj products d-dimer quantitativeCompumatrix Work Phone: Start: 13-65-1025Squayfijhpi peptidePraCrunchfish Work Phone: Start: 55-07-1648Mhmypqazyrt timePrasSaveUpdeniz [employer] Work Phone: Start: 94-99-8892Motwcnhtbvmdxz time partial plasma/whole bloodCompumatrix Work Phone: Start: 15-06-4661Tpl routine ecg w/least 12 lds w/i&r [employer] Work Phone: Start: 63-62-3589LGW REPORTHpf ScanningStart: 55-90-0612Ylzvu count complete automatedBilly Back Work Phone: start: 71-66-0698Vaakpbpcjprcg metabolic panelBilly Back Work Phone: start: 06-27-9402Hkjeirubxu glycosylated d7lEgoaa Back Work Phone: start: 43-43-1566Tjrjf panelBilly Back Work Phone: start: 48-65-9365PYXOVFE FASTING?Lion Back Work Phone: start: 21-94-7539Ezigt count hemoglobinMalissa D Delgrosso Work Phone: Start: 38-68-4982Cwrqw count complete auto&auto difrntl wbcMohammad A Al-Nsitalia Work Phone: Start: 22-50-0076Yzlidjjzeqrdx metabolic panelMohammad A Al-Nsitalia Work Phone: Start: 84-30-5912Znhbq count complete auto&auto difrntl wbcMahmud Al Furgani Work Phone: Start: 23-46-6238Pzhbhky blood reagent stripMahmud Al Etkagani Work Phone: Start: 61-58-8233Ojdmx metabolic panel calcium total Stacy Hakam Work Phone: Start: 65-60-5709Qagpk count hemoglobinMalissa D Delgrosso Work Phone: Start: 98-78-0887Uravlgu blood reagent stripLaila Hakam Work Phone: Start: 71-57-7051Allxe count hemoglobinMalissa D Delgrosso Work Phone: Start: 30-51-6321Wmgjalz blood reagent stripLaila Hakam Work Phone: Start: 83-00-3941Usjjhqu blood reagent stripLaila Hakam Work Phone: Start: 69-34-2022Hdcttecy screenChristina EllisStart: 23-73-3121Aampmts blood reagent stripLaila Hakam Work Phone: Start: 96-88-8972Ldvbc metabolic panel calcium total Amy D Delgrosso Work Phone: Start: 36-40-6195Wzcjj count hemoglobinMalissa D Delgrosso Work Phone: Start: 34-31-5241Qkvtl count hemoglobinMalissa D Delgrosso Work Phone: Start: 29-24-7160Vymzccx blood reagent stripStacy Vitale Work Phone: Start: 85-84-9061Vfkgs count hemoglobinMalissa D Delgrosso Work Phone: Start: 79-81-4431DBRGDXAWZ RED BLOOD CELLSArmani Figueroa Work Phone: Start: 52-88-9451Pcuwukl blood reagent stripStacy Vitale Work Phone: Start: 09-07-2019 End: 52-22-7355Sfkcgqa blood reagent stripStacy Vitale Work Phone: Start: 26-92-6713SIHTC METABOLIC PANEL W/ REFLEX TO MG FOR LOW KStanley J Orlop Work Phone: Start: 79-25-2685Jozlo count complete auto&auto difrntl wbcStanley J Orlop Work Phone: Start: 82-85-1345Comgv count hemoglobinMalissa D Delgrosso Work Phone: Start: 03-20-0606Nipulcn blood reagent stripStacy Vitale Work Phone: Start: 96-46-4033Idzfc count hemoglobinMalissa D Delgrosso Work Phone: Start: 24-71-6733Iimxnsb blood reagent stripStanley J Orlop Work Phone: Start: 84-17-3985Xohklyv blood reagent stripStanley J Orlop Work Phone: Start: 63-71-2082Tiiwedo blood reagent stripStanley J Orlop Work Phone: Start: 05-61-8327WUCCN METABOLIC PANEL W/ REFLEX TO MG FOR LOW KStanley J Orlop Work Phone: Start: 76-17-6286Qqqkf count complete auto&auto difrntl wbcStanley J Orlop Work Phone: Start: 68-71-9452Jypbk count hemoglobinMalissa D Delgrosso Work Phone: Start: 77-68-6161Fblbyvp blood reagent stripStanley J Orlop Work Phone: Start: 49-39-7040Emlervx blood reagent stripStanley J Orlop Work Phone: Start: 78-08-1337Gevek count hemoglobinMalissa D Delgrosso Work Phone: Start: 65-01-8190VJLUP METABOLIC PANEL W/ REFLEX TO MG FOR LOW KStanley J Orlop Work Phone: Start: 32-71-2989Eogutyz blood reagent stripStanley J Orlop Work Phone: Start: 50-28-6146Vfouzop blood reagent stripStanley J Orlop Work Phone: Start: 39-67-7653Skxgh of ferritinTequila Mota Work Phone: Start: 69-47-3500OCGRH METABOLIC PANEL W/ REFLEX TO MG FOR LOW KLinda Bria Mota Work Phone: Start: 67-24-4908Zuvwm count complete automatedTequila Mota Work Phone: Start: 82-07-0432Fghl binding capacityTequila Mota Work Phone: Start: 99-93-7588Ibefvjuukia timeTequila Mota Work Phone: Start: 63-85-5685Bunmr count hemoglobinStanley J Orlop Work Phone: Start: 75-74-1917Dvdaxct blood reagent stripStanley J Orlop Work Phone: Start: 78-62-2094Mlqwrsa blood reagent stripStanley J Orlop Work Phone: Start: 62-90-8517Tdqk screen class list aChristina Saad Molina Work Phone: Start: 51-44-2090Ibjhtlhokj microscopic onlyChristina R Molina Work Phone: Start: 47-04-2980Iirsi dip stick/tablet rgnt auto w/o microscopyChristina R Molina Work Phone: Start: 51-05-9804Bnchw count hemoglobinStanley J Orlop Work Phone: Start: 18-02-2055Jnqsjkx blood reagent stripStanley J Orlop Work Phone: Start: 08-06-6066Oshcswo blood reagent stripStanley J Orlop Work Phone: Start: 21-70-6622Evjsglo blood reagent stripStanley J Orlop Work Phone: Start: 61-95-7730Dbnqu count hemoglobinMalissa D Delgrosso Work Phone: Start: 11-37-6369Ykgviugy aggregation in vitro each agentChino Muller Work Phone: Start: 64-83-1679Gzoft typing serologic aboChristina R Jesse Work Phone: Start: 36-17-4642ZOJNVJ PANELChrisace R Jesse Work Phone: Start: 46-83-0394AQQX/MYOGLOBINChristina R Molina Work Phone: Start: 55-41-9204Pxdkbirn screenChrisace Burristart: 97-54-9495Pfzfb typing serologic Noemy Suarez Work Phone: Start: 32-92-7793Mvfun count complete automated Mami Suarez Work Phone: Start: 12-28-2964Vc thoracic spine w/o contrast materialChcarmina Suarez Work Phone: Start: 44-99-5079Xi thorax w/o contrast material Mami Suarez Work Phone: Start: 83-87-6424Lflchuf [Moles/Vol]Mami Suarez Work Phone: Start: 55-13-9892Hquwr count complete auto&auto difrntl wbcChcarmina Suarez Work Phone: Start: 83-89-8522Lupcgyytyck timeChcarmina Suarez Work Phone: Start: 48-34-0444Umhnmiwrqmdorh time partial plasma/whole bloodChcarmina Suarez Work Phone: Start: 12-43-295644 hydroxy includes fractions if performedSwapaurea Miller Work Phone: Start: 28-20-5732Qczpldg serum plasma/whole blood Gracie dermSearchtabatha Work Phone: Start: 31-67-4976Cusnl of magnesiumSwaurea dermSearchtabatha Work Phone: Start: 75-98-4952Khpvu of parathormoneSwaa Angela Work Phone: Start: 19-03-9678Kkggt of phosphorus inorganicOrange County Community Hospitalaurea dermSearchtabatha Work Phone: Start: 03-35-2566Vmwgv of urea nitrogen quantitative Gracie Angela Work Phone: Start: 19-42-0449Ooculaa totalPingeraurea dermSearchtabatha Work Phone: Start: 28-79-9849Yhigyqodtsz panelSwaa Angela Work Phone: Start: 30-91-9986Yhrkziqaihkms metabolic panelBilly Back Work Phone: start: 52-72-2630Fmygbflgri glycosylated m0hFbjnx Back Work Phone: start: 65-61-3681Pjnez panelBilly Back Work Phone: start: 70-71-2340Rfguyddioef direct measurement ldl cholesterolBilly Back Work Phone: start: 98-80-4411XYZAPSD FASTING?Lion Back Work Phone: start: 62-49-6062Nkbebzutejnj [Mass/volume] in Urine by Test stripBrian Arevalo MD Work Phone: Plan of Treatment DateCare ActivityDetailAuthorStart: 24-31-0665Huomxwyummzh Vaccine: Ped or At- Risk (3 of 3 - PPSV23 or PCV20)Pneumococcal Vaccine: Ped or At-Risk (3 of 3 - PPSV23 or PCV20)[facility]HealthStart: 36-80-3545Xtdyzupsxr screening using PHQ-9 (Patient Health Questionnaire 9) scoreDepression Screening/Follow-Up (PHQ-2/9) [facility]HealthStart: 07-29-2026 End: 33-24-8452RhmojacnxstifxzoTuuzvhfywwnnng complete Echocardiography Routine S/P TAVR (transcatheter aortic valve replacement) Expected: 07/29/2026, Expires: 12/13/2026OhioHealthComment on above:Expected: 07/29/2026, Expires: 12/13/2026 Start: 02-47-5574zLKV DiabeteseGFR DiabetesOhioHealthStart: 81-79-3157hWEK DiabeteseGFR DiabetesScioHealthStart: 00-17-8885Wgamgjfqdl ScreenDepression ScreenBon [facility] CenterStart: 43-24-3412Xjlxrdmyfg A1c iwmzrobqqlxK2R [facility] HospitalStart: 11-06-2025 End: 34-66-2432Gnzzauh encounter okpqiwhxx83/23/2025 1:30 PM EST Office Visit [facility] [address] [place] [address], 3rd floor [place] [address] Melba Singh MD [address] [place] [phone] [facility] PhysiciansStart: 10-31-2025 End: 36-75-4891Ezaisll encounter procedureMERCER [facility] Part of Day Kimball HospitalComment on above:follow up labsStart: 10-26-2025 End: 29-40-2235UartodtsspeylmwfIifvpoaqmuljsm complete Echocardiography Routine S/P TAVR (transcatheter aortic valve replacement) Expected: 10/26/2025, Expires: 11/26/2026[facility] Work Phone: Comment on above:Expected: 10/26/2025, Expires: 11/26/2026Start: 10-01-2025 End: 21-83-9158Tdeztoa encounter procedureMerMUSC Health Kershaw Medical CenterCommymichigan medical center [facility] on above:AWVStart: 09-26-2025 End: 37-22-4116Ktltfaswon ytnawzjsagjj14/12/2025 11:01 AM EST Anesthesia Event [facility] [address] [place] [address] Nacho Pierce MD [address] [place] [address] [facility] LabStart: 09-26-2025 End: 96-72-0773Yyhodyydhy and management of wnumpwznf46/12/2025 11:01 AM EST - 09/26/2025 12:02 PM EST Surgery [facility] [address] [place] [address] Melba Singh MD [address] [place] [address] Transcatheter Aortic Valve ReplacementMedina Hospital [facility] Comment on above:Transcatheter Aortic Valve ReplacementStart: 09-17-2025 End: 49-03-1947Nstgkwb encounter idhasebvd17/03/2025 2:30 PM EST Office Visit [address] [address] Lion Carlson MD [address] [place] [address] AWVMFormerly [facility] HospitalCommymichigan medical [facility] [place] on above:AWV Start: 09-11-2025 End: 06-71-9901Hvxocap encounter ffeudthoz17/28/2025 10:00 AM EDT Office Visit [facility] [address] [place] [address] [address] [place] [address] Charles Nowak MD [address] [facility] [address] [place] [phone] Return in about 3 months (around 09/07/2025).[facility] EndoCommymichigan medical center [facility] on above:Return in about 3 months (around 09/07/2025).Start: 08-30-2025 End: 84-19-8389Kfeebow encounter rqekbpsgz28/16/2025 10:30 AM EDT Office Visit [facility] [address] [facility], [id number] Lion Carlson MD [address] [place] [address] Return in about 6 months (around 08/29/2025).[facility] on above:Return in about 6 months (around 08/29/2025).Start: 16-58-9887Thiczb Wellness Visit (Medicare)Annual Wellness Visit (Medicare)Bon [facility]: 26-84-3581Ecxocwelva Screen Depression ScreenBon [facility]: 08-27-2025 End: 13-73-7774Aazyjsi encounter ocepggmcj44/13/2025 2:00 PM EDT Appointment [facility] [address] [place], [place] [phone] KX after 26 session, BSMTHZ Cardiac RehabComment on above:KX after 26 session, BSStart: 08-22-2025 End: 78-95-5087Bfmbwms encounter imrxlzvng04/08/2025 2:00 PM EDT Appointment [facility] [address] [place] [address] KX after 26 session, BSMTHZ Cardiac RehabComment on above:KX after 26 session, BSStart: 08-20-2025 End: 24-78-9358Uinzqnv encounter rljqsmpny99/06/2025 2:00 PM EDT Appointment [facility] [address] [place] [address] KX after 26 session, BSMTHZ Cardiac RehabComment on above:KX after 26 session, BSStart: 08-15-2025 End: 74-69-1979Vfyjkah encounter bsxyvywft54/01/2025 2:00 PM EDT Appointment [facility] [address] [place] [address] KX after 26 session, BSMTHZ Cardiac RehabComment on above:KX after 26 session, BSStart: 08-14-2025 End: 87-27-9792Oqifafb encounter pftyjdiyt24/30/2025 1:00 PM EDT Appointment [facility] [address] [place] [place] [address] SandostatinMWHZ MED ONCComment on above:SandostatinStart: 08-13-2025 End: 36-93-4746Kxqspfm encounter rbzwisznk66/29/2025 2:00 PM EDT Appointment [facility] [address] [place] [phone] KX after 26 session, BSMTHZ Cardiac RehabComment on above:KX after 26 session, BSStart: 08-08-2025 End: 64-57-3097Jqlitjv encounter uehonbrrl02/24/2025 2:00 PM EDT Appointment [facility] [address] [place] [address] KX after 26 session, BSMTHZ Cardiac RehabComment on above:KX after 26 session, BSStart: 08-06-2025 End: 40-04-2345Izyjfal encounter /22/2025 2:00 PM EDT Appointment [facility] [address] [place] [address] KX after 26 session, BSMTHZ Cardiac RehabComment on above:KX after 26 session, BSStart: 08-01-2025 End: 57-31-1565Jzgpblm encounter carzdqnkt27/17/2025 2:00 PM EDT Appointment [facility] [address] [place] [address] KX after 26 session, BSMTHZ Cardiac RehabComment on above:KX after 26 session, BSStart: 07-30-2025 End: 90-83-2268Gtevhvd encounter wesqlpyml80/15/2025 2:00 PM EDT Appointment [facility] [address] [place] [address] KX after 26 session, BSMTHZ Cardiac RehabComment on above:KX after 26 session, BSStart: 07-25-2025 End: 13-63-3196Znzgzna encounter qxixqfexl09/10/2025 2:00 PM EDT Appointment [facility] [address] [place] [address] KX after 26 session, BSMTHZ Cardiac RehabComment on above:KX after 26 session, BSStart: 07-23-2025 End: 03-42-5963Njubykv encounter bzahmbcrq85/08/2025 2:00 PM EDT Appointment [facility] [address] [place] [phone] KX after 26 session, BSMTHZ Cardiac RehabComment on above:KX after 26 session, BSStart: 07-18-2025 End: 86-16-9828Plgujnx encounter fovdjtgaj99/03/2025 2:00 PM EDT Appointment [facility] [address] [place] [phone] KX after 26 session, BSMTHZ Cardiac RehabComment on above:KX after 26 session, BSStart: 32-91-6323ATDVD-19 Vaccine ( season)COVID-19 Vaccine ( season)[facility] JerseyHealthStart: 74-91-7905LKIEF-19 Vaccine ( season)COVID-19 Vaccine ( season)[facility] HospitalStart: 36-23-5406Anphhgolj vaccinationInfluenza Vaccine (#1)[facility]HealthStart: 07-16-2025 End: 44-86-9712Uqoubsx encounter kcywptrwf11/01/2025 2:00 PM EDT Appointment [facility] [address] [place] [phone] KX after 26 session, BSMTHZ Cardiac RehabComment on above:KX after 26 session, BSStart: 07-12-2025 End: 42-53-4659Qraflee encounter flrybgrbb67/28/2025 12:00 PM EDT Appointment [facility] [address] [place] [address] SandostatinMWHZ MED ONCComment on above:SandostatinStart: 07-11-2025 End: 49-37-9654Htqflbz encounter pjoksvbdk76/27/2025 2:00 PM EDT [facility]ment [facility] [facility] Card[facility] Rehab [address] [place] [address] KX after 26 session, BSMTHZ Cardiac RehabComment on above:KX after 26 session, BSStart: 07-09-2025 End: 95-42-2464Dxilall encounter bzyosnivn78/25/2025 2:00 PM EDT Appointment [facility] Cardiac Rehab [address] [place] [address] KX after 26 session, BSMTHZ Cardiac RehabComment on above:KX after 26 session, BSStart: 07-04-2025 End: 39-93-7464Snwrepx encounter rcohngtbp31/20/2025 2:00 PM EDT Appointment [facility] Cardiac Rehab [address] [place] [address] KX after 26 session, BSMTHZ Cardiac RehabComment on above:KX after 26 session, BSStart: 07-02-2025 End: 71-97-7703Qfhdwxm encounter yjhcxzart14/18/2025 2:00 PM EDT Appointment [facility] Cardiac Rehab [address] [place] [address] KX after 26 session, BSMTHZ Cardiac RehabComment on above:KX after 26 session, BSStart: 06-27-2025 End: 74-90-9270Okznyum encounter zrynwctez31/13/2025 2:00 PM EDT Appointment [facility] Cardiac Rehab [address] [place] [address], [place] [address] KX after 26 session, BSMTHZ Cardiac RehabComment on above:KX after 26 session, BSStart: 06-25-2025 End: 52-45-4371Xrqppyq encounter dvomxqlqs43/11/2025 2:00 PM EDT Appointment [facility] Cardiac Rehab [address] [place] [address], [place] [address] KX after 26 session, BSMTHZ Cardiac RehabComment on above:KX after 26 session, BSStart: 06-20-2025 End: 98-39-8777Atyqlmf encounter tdraqcyti51/06/2025 2:00 PM EDT Appointment [facility] Cardiac Rehab [address] [place] [address] KX after 26 session, BSMTHZ Cardiac RehabComment on above:KX after 26 session, BSStart: 06-18-2025 End: 57-59-0291Iqqfonl encounter urfnfarsm17/04/2025 2:00 PM EDT Appointment [facility] Cardiac Rehab [address] [place] [address] KX after 26 session, BSMTHZ Cardiac RehabComment on above:KX after 26 session, BSStart: 76-20-4018Yuavdymqr vaccinationFlu vaccine (#1)[facility] CenterStart: 06-13-2025 End: 43-88-3731Jarzdpe encounter pbddxxgty25/30/2025 2:00 PM EDT Appointment [facility] Cardiac Rehab [address] [place] [address] KX after 26 session, BSMTHZ Cardiac RehabComment on above:KX after 26 session, BSStart: 06-11-2025 End: 20-45-7472Nkxbely encounter bppwaahak69/28/2025 2:00 PM EDT Appointment [facility] Cardiac Rehab [address] [place] [address] KX after 26 session, BSMTHZ Cardiac RehabComment on above:KX after 26 session, BSStart: 06-07-2025 End: 52-58-7098Zhbzlzo encounter elvkjfbad22/24/2025 11:15 AM EDT Office Visit [facility] Endo [address] [place] [address] [place] [address] Charles Nowak MD [address] [facility] [address] [place] [address] 3 [facility] EndoComment on above:3 monthStart: 06-06-2025 End: 64-84-2806Glploni encounter /23/2025 2:00 PM EDT Appointment [facility] Cardiac Rehab [address] [place] [address] KX after 26 session, BSMTHZ Cardiac RehabComment on above:KX after 26 session, BSStart: 06-04-2025 End: 60-71-7847Hibzuyu encounter bbcnwgvak85/21/2025 2:00 PM EDT Appointment [facility] Cardiac Rehab [address] [place] [address] KX after 26 session, BSMTHZ Cardiac RehabComment on above:KX after 26 session, BSStart: 06-01-2025 End: 55-32-7820Hfkrrgm encounter arpqmqoxi15/18/2025 11:00 AM EDT Office Visit [facility] [place] [address] [place], [place] [phone] Mak Bey MD [address] [place] [address] [facility] Environmental Health Manager Cone HealthComment on above:3mStart: 05-30-2025 End: 84-53-5784Szcggqc encounter qlpicvicn98/16/2025 2:00 PM EDT Appointment [facility] Cardiac Rehab [address] [place] [address] KX after 26 session, BSMTHZ Cardiac RehabComment on above:KX after 26 session, BSStart: 05-28-2025 End: 92-86-8624Uysomrv encounter procedureMTHZ Cardiac RehabComment on above:KX after 26 session, BSSandostatinStart: 05-23-2025 End: 22-26-5933Cjlnxba encounter nxkmozqim65/09/2025 2:00 PM EDT Appointment [facility] Cardiac Rehab [address] [place] [address] KX after 26 session, BSMTHZ Cardiac RehabComment on above:KX after 26 session, BSStart: 05-21-2025 End: 24-27-0317Fpmebgj encounter aysnepuah06/07/2025 2:00 PM EDT Appointment [facility] Cardiac Rehab [address] [place] [address] KX after 26 session, BSMTHZ Cardiac RehabComment on above:KX after 26 session, BSStart: 05-16-2025 End: 70-39-5090Tcmlhqo encounter qghlrsuxu69/02/2025 2:00 PM EDT Appointment [facility] Cardiac Rehab [address] [place] [address] KX after 26 session, BSMTHZ Cardiac RehabComment on above:KX after 26 session, BSStart: 05-14-2025 End: 17-35-8158Agwfmzv encounter hbmaczhay08/30/2025 2:00 PM EDT Appointment [facility] Cardiac Rehab [address] [place] [address] KX after 26 session, BSMTHZ Cardiac RehabComment on above:KX after 26 session, BSStart: 05-09-2025 End: 61-86-0518Dzcdmkm encounter wuxkpefgq75/25/2025 2:00 PM EDT Appointment [facility] Cardiac Rehab [address] [place] [address] KX after 26 session, BSMTHZ Cardiac RehabComment on above:KX after 26 session, BSStart: 05-07-2025 End: 93-76-2070Eanntes encounter vxsceftwl23/23/2025 2:00 PM EDT Appointment [facility] Cardiac Rehab [address] [place] [address] KX after 26 session, BSMTHZ Cardiac RehabComment on above:KX after 26 session, BSStart: 05-03-2025 End: 10-81-6453Ynjqezt encounter bxzqlauah41/19/2025 1:00 PM EDT Appointment [facility] Cardiac Rehab [address] [place] [address] KX after 26 session, BSMTHZ Cardiac RehabComment on above:KX after 26 session, BSStart: 05-02-2025 End: 69-50-6330Jrqtvyl encounter tagvxrfqb69/18/2025 2:00 PM EDT Appointment [facility] Cardiac Rehab [address] [place] [address] KX after 26 session, BSMTHZ Cardiac RehabComment on above:KX after 26 session, BSStart: 04-30-2025 End: 10-03-0397Sbdwcvy encounter mbeizxhys53/16/2025 2:00 PM EDT [facility] [address] [place] [address] KX after 26 session, BSMTHZ Cardiac RehabComment on above:KX after 26 session, BSStart: 04-25-2025 End: 33-34-9801Msxsjwj encounter procedureMERCER [facility] Part of Day Kimball HospitalComment on above:-neuroendocrine tumorKX after 26 session, BSSandostatinStart: 04-23-2025 End: 55-46-7296Rikmeyi encounter kvlebpndq79/09/2025 2:00 PM EDT Appointment [facility] Cardiac Rehab [address] [place] [address] KX after 26 session, BSMTHZ Cardiac RehabComment on above:KX after 26 session, BSStart: 04-19-2025 End: 49-80-9947Reozmxk encounter iqdwbiizq13/05/2025 1:00 PM EDT Appointment [facility] [address] [place] [address] SandostatinMWHZ MED ONCComment on above:SandostatinStart: 04-18-2025 End: 92-27-0379Yfivpdi encounter zhrjgziav33/04/2025 2:00 PM EDT Appointment [facility] Cardiac Rehab [address] [place] [address] KX after 26 session, BSMTHZ Cardiac RehabComment on above:KX after 26 session, BSStart: 04-16-2025 End: 73-51-1535Vislzld encounter jelejthjq24/02/2025 2:00 PM EDT Appointment [facility] Cardiac Rehab [address] [place] [address] KX after 26 session, BSMTHZ Cardiac RehabComment on above:KX after 26 session, BSStart: 04-03-2025 End: 16-94-6660Yirqlbs encounter gehltduwp82/20/2025 12:30 PM EDT Appointment [facility] Cardiac Rehab [address] [place] [address] NEEDS RECURRING ACCOUNT AND STICKERSMTHZ Cardiac RehabComment on above:NEEDS RECURRING ACCOUNT AND STICKERSStart: 03-22-2025 End: 64-38-0795Zuqfjth encounter jwdndjsoh24/08/2025 1:00 PM EDT Appointment [facility] [address] [facility] [address] SandostatinMWHZ MED ONCComment on above:SandostatinStart: 03-21-2025 End: 02-70-7774Vpbvnhq encounter whumuiuej89/07/2025 10:30 AM EDT Office Visit [facility] Video Game Creator [address] [facility] [address] Abdirizak Oro MD [address] [place] [address] 6 month f/u lab/ekgMercy Cardiology SpecialistComment on above:6 month f/u lab/ekgStart: 61-34-8012Ijsiieqhiz MonitoringDepression MonitoringBON SECOURS BLANCHARD VALLEY HEALTH SYSTEMStart: 03-08-2025 End: 95-35-2901Xknlitb encounter qbfleqqkz57/24/2025 11:00 AM EDT Office Visit [facility] Endo [address] [place] [address] [address] [place] [address] Charles Nowak MD [address] [facility] [address] [place] [address] 3 monthPromedica Defiance Regional Hospitalain EndoComment on above:3 monthStart: 03-01-2025 End: 47-55-3208Klmjvgj encounter wtqzyfrzt28/17/2025 2:45 PM EDT Office Visit [facility] [place] [address], [address] [place] [address] Radha Hernandez, LATHE PULLER - PASSPORT SUPPORT ASSOCIATE [address] [place] [address] stent hosp f/u [facility] Health Manager - LebecComment on above:stent hosp f/uStart: 02-27-2025 End: 56-86-9826Dbnmxwa encounter procedureMerMUSC Health Kershaw Medical CenterComment on above:6 mo6 mo- A1c6 mo- A1c- richard for nov needs R/sStart: 02-07-2025 End: 82-90-3247Ycjumnl encounter dpibumfsr96/26/2025 12:00 PM EDT Appointment [facility] [address] [place] [address] SandostatinMWHZ MED ONCComment on above:SandostatinStart: 01-10-2025 End: 97-02-3651Rnjcxfl encounter tjbryulho19/26/2025 11:00 AM EST Appointment [facility] [address] [place] [address] SandostatinMWHZ MED ONCComment on above:SandostatinStart: 12-11-2024 End: 68-58-8495Yfpjnbr encounter /27/2025 1:00 PM EST Appointment [facility] [address] [place] [address] SandostatinMWHZ MED ONCComment on above:SandostatinStart: 12-01-2024 End: 93-06-9268Hbyyxcx encounter procedurePromedica Defiance Regional Hospitalain EndoComment on above:3 monthsStart: 11-17-2024 End: 59-96-7609Nkkxpuh encounter zshyxmddg86/03/2025 10:30 AM EST Office Visit [facility] [place] [address] [address] [address] [place] [address] Nacho Montiel MD [address] [address] [address] [place] [address] folllow-up to evaluate fistulaSelect [facility] Heart and Vascular InstituteComment on above: folllow-up to evaluate fistulaStart: 11-13-2024 End: 94-32-1655Auuyjwm encounter yrjftasdg64/30/2024 1:00 PM EST Appointment [facility] [address] [facility] [place] [address] SandostatinMWHZ MED ONCComment on above:SandostatinStart: 10-27-2024 End: 41-89-0873Cgvmptj encounter /13/2024 1:15 PM EST Office [facility] [address] [place] [address] Charles Nowak MD [address] [place] [address] 3 months[facility] EndoComment on above:3 months Start: 10-25-2024 End: 41-42-5648Sgbvgfk encounter pmfyehqaf06/11/2024 3:15 PM EST Office Visit [facility] Part of [address] [address] Trevor Serna MD [address] [place] [address] -neuroendocrine tumorMERCER COUNTY COMM[facility] Part of Day Kimball HospitalComment on above:-neuroendocrine tumorStart: 10-23-2024 End: 25-53-5352Zkpzqwk encounter mylxawjzf17/09/2024 1:15 PM EST Procedure visit [facility] [address] [place] [address] Nacho Montiel MD [address] [address] [address] [place], [place] [address] CVC REMOVAL juggular cathSt. Andres Heart and VascularComment on above:CVC REMOVAL juggular cathStart: 10-20-2024 End: 89-93-6698Xayvypk encounter xebptpoiy21/06/2024 1:00 PM EST Appointment [facility] Non-Invasive Cardiology [address] [place] [address] Abdirizak Oro MD [address] [place] [address] epic/spouse/ladonnaMercy Critical Access Hospitalard Non-Invasive CardiologyComment on above:epic/spouse/ladonnaStart: 09-28-2024 End: 52-71-3492Eqllfpa encounter otuwkphem65/14/2024 2:00 PM EST Office Visit [facility] [address] [place] [address] Lion Carlson MD [address] [place] [address] 6 moMercUnion Medical CenterCommymichigan medical center [place] on above:6 moStart: 09-20-2024 End: 91-08-9593Qjtdqnh encounter pyeeactgh56/06/2024 8:30 AM EST Office Visit [facility] Video Game Creator [address] [place] [phone] Abdirizak Oro MD [address] [place] [address] f/u appt stenting Dr. Singh @ [facility]--pt hasn't been doing cardiac rehab--has been doing diaylsis 3 x week [facility] Cardiology SpecialistComment on above:f/u appt stenting Dr. Singh @ [facility]--pt hasn't been doing cardiac rehab--has been doing diaylsis 3 x week Start: 09-04-2024 End: 48-19-9092Tzmkwwv encounter ujwachrst20/21/2024 1:00 PM EDT Appointment [facility] [address] [place] [address] SandostatinMWHZ MED ONCComment on above:SandostatinStart: 08-28-2024 End: 01-98-6181Fverpkk encounter cidlqclog32/14/2024 2:15 PM EDT Office Visit [facility] [address] [place] [address] Lion Carlson MD [address] [place] [address] AWLoring HospitalCommymichigan medical center [place] on above:AWV Start: 71-75-0018Mrthtxowud A1c juyqsgdednbP9NXjwfEtqbvtGaovc: 07-27-2024 End: 66-25-0591Tvxhbjz encounter hpvauyhtu78/12/2024 1:45 PM EDT Office Visit [facility] Endo [address] [place] [address] Charles Nowak MD [address] [place] [address] 3 month[facility] EndoComment on above:3 monthStart: 16-23-0314OUFZG-19 Vaccine ( season)COVID-19 Vaccine ( season)[facility] CenterStart: 09-63-5303ZUIVL-19 Vaccine ()COVID-19 Vaccine ( season)[facility] CenterStart: 07-10-2018Dmpnogwoa vaccinationOhioHealthStart: 07-05-2024 End: 79-22-8356Rnzlfsv encounter jhxicujzb40/21/2024 1:00 PM EDT Appointment [facility] OP Nursing [address] [place] [address] ZlmmavbtvomRELH OP NursingComment on above:SandostatinStart: 06-22-2024 End: 30-41-2236Jxnyyvk encounter binbdxaaz71/08/2024 12:00 PM EDT Office Visit [facility] Video Game Creator [address] [place] [address] Abdirizak Oro MD [address] [place] [address] 6 week follow up after possibly starting dialysisMccullough-[facility] Hospital Cardiology SpecialistComment on above:6 week follow up after possibly starting dialysisStart: 65-26-2408Rqpyjzftl vaccinationCARILION STONEWALL JACKSON HOSPITALStart: 05-22-2024 End: 49-42-3638Oxvohpj encounter /08/2024 11:45 AM EDT Office Visit [facility] Surgical Specialists [facility] [address] Medical Office Building, [address]th [place] [address] Brian Arevalo MD [facility] [address] [facility] 5[address] [place] [address] [facility] Surgical SpecialistsStart: 99-30-0699Frvboepagh hospital visit by qcxngdoya65/05/2024 Hospital Encounter [facility] [address] [place] [phone] Brian Arevalo MD [address] [facility] [address]th [place] [address] [facility] PeriopStart: 2024 End: 12-70-6981Esywseooz to rostlbhvimcwk77/28/2024 8:30 AM EDT Clinical Support [facility] Preadmission Testing [address] [place] [address] Brian Arevalo MD [address] [facility] [address] [place] [address] Discharge Disposition: Home [facility] Preadmission TestingStart: 05-11-2024 End: 86-40-6244Daacgtq encounter bwatwygsf97/27/2024 2:00 PM EDT Appointment [facility] MED ONC [address] [place] [address] SandostatinMWHZ MED ONCComment on above:SandostatinStart: 04-26-2024 End: 87-67-7618Szcmxxt encounter yxwyrbncu38/12/2024 11:30 AM EDT Office Visit [facility] Endo [address] [place] [address] Charles Nowak MD [address] [place] [address] 3 [facility] EndoComment on above:3 monthStart: 04-17-2024 End: 10-10-4674Zatahhd encounter opoggaigl46/03/2024 1:15 PM EDT Office Visit [facility] Surgical Specialists [address] Medical OfficeBuilding, 5th [place] [address] Brian Arevalo MD [address] [facility] [place] [address] [facility] Surgical SpecialistsStart: 04-03-2024 End: 99-91-7497Mdewzub encounter stknyvieh78/20/2024 2:00 PM EDT Appointment [facility] MED ONC [address] [place] [address] SandostatinMWHZ MED ONCComment on above:SandostatinStart: 03-27-2024 End: 43-27-5587Gmxwutp encounter ofypftjep46/13/2024 1:45 PM EDT Office Visit [facility] Surgical Specialists [address] [facility] Medical OfficeBuilding, 5th [place] [address] Gracie Miller MD [address] [place] [address] Brian Arevalo MD [address] [facility]jac[facility] [address] [facility] [address] [place] [address] [facility] Surgical SpecialistsStart: 03-22-2024 End: 33-85-3054Gkqyvqu encounter procedureMERCER COUNTY [facility] Part of Day Kimball HospitalComment on above:neuroendocrine tumorStart: 03-20-2024 End: 98-38-7909Yizwhqv encounter procedureMccullough-[facility]de [facility] Hospital Cardiology SpecialistComment on above:1 year follow up labs ekg cxrStart: 03-17-2024 End: 45-74-7144Tjwmytc encounter huzkznavm29/03/2024 2:15 PM EDT Office Visit [address] [phone] Lion Carlson MD [address] [place] [address] 6 m check up- Colon CA ScreeningUnityPoint Health-Saint Luke'sCommymichigan medical center [place] on above:6 m check up- Colon CA ScreeningStart: 03-03-2024 End: 55-78-2752Zqiqisz encounter qwpmkenbh90/19/2024 1:15 PM EDT Office Visit [address] [address] Lion Carlson MD [address] [place] [address] 6 m check up- Schedule AWV- Colon CA ScreeningMer Primary Care of HelmvilleCommymichigan medical center [place] on above:6 m check up- Schedule AWV- Colon CA ScreeningStart: 06-59-4745Mqitnugede ScreenDepression ScreenBON ACCESS HOSPITAL DAYTONStart: 01-24-2024 End: 25-17-4045Fvizeje encounter vuvttsfor21/11/2024 11:45 AM EDT Office Visit [facility] Endo [address] [place] [address] Charles Nowak MD [address] [place] [address] F/U DM,r/s from no show appt on 10/22/2023 w/ptMDetwiler [facility] Hospital EndoComment on above:F/U DM,r/s from no show appt on 10/22/2023 w/ptStart: 01-03-2024 End: 61-77-5921Tsedzug encounter xehkyqtsj19/19/2024 1:00 PM EST Appointment [facility] [address] [place] [address] SandostatinMWHZ MED ONCComment on above:SandostatinStart: 72-54-6298Qgkbzy Wellness Visit (Medicare)Annual Wellness Visit (Medicare)[facility]ITALStart: 09-22-2023 End: 14-30-2926Mqmmqkt encounter admphqgfj30/08/2023 Office Visit Oncology Trevor Davidson MD [address] [place] [address] [facility] Part of [facility]tart: 09-02-2023 End: 85-91-9817Xxiogfd encounter pgkctlrem58/19/2023 Office Visit Family Medicine Lion Carlson MD [address] [place] [address] [facility]: 17-38-8462Wcavpgprps ScreenDepression ScreenBON [facility]: 07-16-2023 End: 78-08-3509Kuzisvl encounter hhqeqhout95/01/2023 Office Visit Endocrinology Charles Nowak MD [address] [place] [address] [facility] EndoStart: 42-81-8417DSJAH-19 Vaccine ( season)COVID-19 Vaccine ( season)[facility] HospitalStart: 07-16-2023 COVID-19 Vaccine ( season)COVID-19 Vaccine ( season) [facility] Systemart: 75-88-0893YQWWO-19 Vaccine ( season)COVID-19 Vaccine ( season)[facility]: 60-80-6864Jdazup Wellness Visit (AWV)Annual Wellness Visit (AWV)[facility]: 06-15-2023 Influenza vaccinationFlu vaccine (#1)[facility]: 06-10-2023 End: 20-05-8330Wmiqgqh encounter gdbvotuhw76/27/2023 Appointment Infusion TherapyMWHZ MED ONCStart: 06-08-2023 End: 12-15-9273Jpgjncr encounter giquyiovr04/25/2023 Office Visit Endocrinology Charles Nowak MD [address] [place] [address] [facility] EndoStart: 05-13-2023 End: 00-73-6132Wttmnob encounter wlkicvbpy02/29/2023 Appointment Infusion TherapyMWHZ MED ONCStart: 04-05-2023 End: 97-68-5585Emmlhis encounter ttililuck41/22/2023 Appointment Infusion TherapyMWHZ MED ONCStart: 03-25-2023 End: 29-87-1486Cboaoge encounter lzrpbebaf51/11/2023 Office Visit Cardiology Abdirizak Oro MD [address] [place] [address] [facility] Cardiology SpecialistStart: 13-40-4322Gkjujuazvb measurementCreatinineMercy HealthStart: 59-26-4988Hwuztjwab [Moles/volume] in Serum or PlasmaPotassiumMercy HealthStart: 03-10-2023 End: 18-35-2857Pgzsujt encounter omlyletzp07/26/2023 Office Visit Oncology Yoel- Trevor Kumari MD [address] [place] [address] [facility] Part of [facility] Hospitaltart: 03-09-2023 End: 74-56-2159Jucbskm encounter xkpzxiuse76/25/2023 Office Visit Endocrinology Charles Nowak MD [address] [facility] [place], [place] [address] [facility] EndoStart: 12-39-8709Besvju Wellness Visit (AWV)Annual Wellness Visit (AWV)[facility]Start: 03-08-2023 End: 31-80-0875Nqxmozm encounter raruvyons17/24/2023 Appointment Infusion TherapyMWHZ MED ONCStart: 03-03-2023 End: 85-12-0278Uwjdqux encounter /19/2023 Appointment Infusion TherapyMWHZ MED ONCStart: 00-29-4109Wfrplx Wellness Visit (AWV)Annual Wellness Visit (AWV)[facility]Start: 02-23-2023 End: 16-53-9793Yvfkhzv encounter ckpqbbicy10/11/2023 Office Visit Family Medicine Lion Cralson MD [address] [place] [address] [facility] Care [facility] HospitalStart: 83-13-5717Whrodzqobe ScreenDepression ScreenMercy HealthStart: 02-02-2023 End: 93-89-1657Cslyvfd encounter afpjmxsqd74/21/2023 Appointment Infusion TherapyMWHZ MED ONCStart: 88-88-1620Bsqqpxaapo measurementCreatinine monitoring [facility] HospitalStart: 96-64-0644Gcexnhajg monitoringPotassium monitoringMartin Memorial HospitalStart: 01-12-2023 End: 22-97-4370Awpjqnbpp qlwrfrafa70/28/2023 [facility]: 01-05-2023 End: 12-37-0843Gzchypw encounter gfsxqqbli72/21/2023 Appointment Infusion TherapyMWHZ MED ONCStart: 12-21-2022 End: 21-44-5077Mrisbitsa gavekfcui34/06/2023 Scheduled [facility]Start: 12-15-2022 End: 57-56-4423Qwygleh encounter lirhqgqaa71/31/2023 Office Visit Endocrinology Charles Nowak MD [address] [place] [address] [facility] EndoStart: 12-10-2022 End: 03-00-1530Rvdcbvc encounter xicxjhusa01/26/2023 Appointment Infusion TherapyMWHZ MED ONCStart: 11-27-2022 End: 05-42-1475Yhgztse encounter ebxriwjfk45/13/2023 Office Visit Endocrinology Charles Nowak MD [address] [place] [address] [facility] EndoStart: 39-79-2320Oiwuihdxnu measurementCreatinine monitoringMartin Memorial HospitalStart: 98-48-3930Lluvkcmbn monitoringPotassium monitoringMartin Memorial HospitalStart: 09-08-2022 End: 76-18-0851Wpmpsqb encounter cuxzianzr58/25/2022 Appointment Infusion TherapyMWHZ MED ONCStart: 08-26-2022 End: 86-32-2300Slhyytu encounter /12/2022 Office Visit Oncology Trevor Davidson MD [address] [place] [address] [facility]: 08-25-2022 End: 29-17-3084Rrkksbf encounter sdmgvefbk43/11/2022 Office Visit Family Medicine Lion Carlson MD [address] [place] [address] [facility]: 08[facility]12-2022 End: 74-11-0775Bllxeds encounter ysjpvuhwc12/28/2022 Office Visit Endocrinology Charles Nowak MD [address] [place] [address] [facility] EndoStart: 08-11-2022 End: 16-21-8897Hpgjszr encounter chtubejnt79/27/2022 Appointment Infusion TherapyMWHZ MED ONCStart: 32-13-4161Zhtgbnptmc measurementCreatinine monitoring [facility] HospitalStart: 36-88-5634Hjuokluoo monitoringPotassium monitoringMartin Memorial HospitalStart: 27-64-9176Bwsdxupwc vaccinationFlu vaccine (#1)[facility]: 06-30-2022 End: 77-72-9508Sytnsfk encounter oxdlbkdlt43/16/2022 Office Visit Endocrinology Charles Nowak MD [address] [place] [address] [facility] EndoStart: 57-52-8194Bnesxdgwqr A1c xpvlinfzcldM9V test (Diabetic or Prediabetic)[facility]: 06-15-2022 Influenza vaccinationFlu vaccine (#1)[facility]: 06-12-2022 End: 70-58-0648Cidskwx encounter mqvdhkoyk60/29/2022 Appointment Infusion TherapyMWHZ MED ONCStart: 06-09-2022 End: 00-14-9923Wnteaoo encounter nlovjkjza43/26/2022 Appointment Infusion TherapyMWHZ MED ONCStart: 2022 End: 08-91-1857Punliej encounter zsjrshtze14/28/2022 Appointment Infusion TherapyMWHZ MED ONCStart: 78-11-7000Wluvoqevtj measurementCreatinine monitoring [facility] Work Phone: start: 20-84-6414Dptoiuynn monitoringPotqueen of the valley hospital monitoringMccullough-[facility] [employer] Work Phone: start: 04-14-2022 End: 12-37-5934Ewrylin encounter pbjqlfdeb03/31/2022 Appointment Infusion TherapyMWHZ MED ONCStart: 76-54-4613Mqoeycul foot examinationDiabetic foot exam [facility] HospitalInternet [facility] [employer] Phone: start: 03-31-2022 End: 78-23-5225Cdmimjt encounter rxwnnrfku09/17/2022 Office Visit Endocrinology Charles Nowak MD [address] [place], [place] [address] [facility] EndoStart: 03-26-2022 End: 76-91-5970Uuestjo encounter tbogjhzfo27/12/2022 Office Visit Cardiology Abdirizak Oro MD [address] [place] [address] [facility] Cardiology SpecialistStart: 03-25-2022 End: 50-79-7750Zciswgr encounter vapqgqhua57/11/2022 Office Visit Oncology Yoel- Trevor Kumari MD [address] [place], [place] [address] [facility]: 02-27-2022 End: 67-69-7133Cioqeoy encounter qkwelkipl39/15/2022 Office Visit Endocrinology Charles Nowak MD [address] [place] [address] [facility] EndoStart: 02-16-2022 End: 83-65-7946Klprymh encounter /04/2022 Appointment Infusion TherapyMWHZ MED ONCStart: 02-05-2022 End: 91-19-0564Rgjzjcq encounter wnhwdugse62/24/2022 Office Visit Family Medicine Lion Carlson MD [address] [place] [address] [facility]: 12-83-4818Qacluwtcia ScreenDepression ScreenMccullough-Hyde Memorial Hospital HealthStart: 74-44-2063Xsfhewfjjm measurement Creatinine monitoringMercy Health Work Phone: start: 73-45-7640Evuqvzxlc monitoringPotassium monitoringMercy Health Work Phone: start: 01-19-2022 End: 39-99-9309Muaiqyd encounter tsuifdsml76/07/2022 Appointment Infusion TherapyMWHZ MED ONCStart: 11-21-2021 End: 06-18-7285Iatgijd encounter ljzivcxvv70/07/2022 Appointment Infusion TherapyMZ MED ONCStart: 11-19-2021 End: 54-00-5905Bflghpy encounter fyabbyked94/05/2022 Office Visit Oncology Trevor Davidson MD [address] [place] [address] [facility]: 53-37-5134Dkiiqpubch measurementCreatinine monitoringMccullough-Hyde Memorial Hospital Health- [place], [place]: 43-87-8874Ypvqc panelLipid screenMetroHealth [facility], [facility]: 08-75-5582Ajhpijwlp monitoringPotassium monitoringMetroHealth [facility] Heights [facility] Center, [facility] Centerart: 10-24-2021 End: 23-15-5405Nyfmdry encounter dmvyduapv38/10/2021 Office Visit Endocrinology Charles Nowak MD [address] [place] [address] [facility] EndoStart: 35-93-5714Viikiz Wellness Visit (AWV)Annual Wellness Visit (AWV)[facility]: 10-21-2021 End: 86-85-2566Udvqwoo encounter nztyzndxn86/07/2021 Appointment Infusion TherapyMBERTRAND CHAFFEE [facility]OSPITAL MED ONCStart: 10-02-2021 End: 98-63-0838Xrwevye encounter procedureMERCER [facility]: 09-26-2021 End: 33-60-1481Xjpjons encounter procedureSelect [facility] EndoStart: 08-56-7692Hcdwlwwozp measurementCreatinine monitoringMetroHealth [facility] Center, KYStart: 50-80-7211Emadcjwih monitoringPotassium monitoringMetroHealth [facility], KYStart: 08-25-2021 End: 71-82-3007Xikqsip encounter ntadgznua28/11/2021 Appointment Infusion TherapyMWHZ MED ONCStart: 08-07-2021 End: 49-69-6641Dtjcia Visit08/07/2021 Office Visit Family Medicine BackLion MD [address] [place], [place] [address] [facility]'sStart: 07-28-2021 End: 72-90-5584Lbfzbgj encounter dvrujzfni94/13/2021 Appointment Infusion TherapyMZ [facility] ONCStart: 45-20-0395Ftzgqounb vaccinationFlu vaccine (#1)[facility] Work Phone: start: 40-21-3341Nxvazjusrv measurementCreatinine monitoringMetroHealth [facility], KYStart: 88-92-4537Cxrebtufb monitoringPotassium monitoringMetroHealth [facility], KYStart: 06-10-2021 End: 01-23-0302Ggzdzgm encounter hloecrrco42/27/2021 Office Visit Endocrinology Charles Nowak MD [address] [facility] [place] [id number] [facility] EndoStart: 05-28-2021 End: 95-27-7362Mfkqdrz encounter opepzvqbn36/14/2021 Appointment Infusion TherapyMWHZ [facility] ONCStart: 55-26-1899Nwlxwz TherapyStatin TherapyMetroHealth [facility] Medical Center, KYStart: 05-07-2021 End: 84-24-2199Bbrver Visit05/07/2021 Office Visit Oncology Trevor Serna MD [address] [place] [address] NKBLLMERCER COUNTY COMM[facility]: 99-43-3796TkT5e (Bld) [Mass fraction]A1C test (Diabetic or Prediabetic)Infogram Phone: start: 66-04-5525Sufghmeryb A1c jnzhkkmkidoI4I test (Diabetic or Prediabetic)Infogram Phone: start: 04-25-2021 End: 86-75-3789Vecnknq encounter twdhukpxd15/11/2021 Appointment Infusion TherapyMWHZ MED ONCStart: 48-39-2268Zzqrbprwra measurementCreatinine monitoring [place], [place]Start: 42-09-1214Vxvbe panelLipid screenE[place], [place] Start: 01-23-9254Gbdrbwqzo monitoringPotassium [place] Start: 85-33-3736WSLOI-19 Vaccine (3 - Inadvertent risk 4-dose series)COVID-19 Vaccine (3 - Inadvertent risk 4-dose series)[facility] HospitalStart: 77-31-9518SRPKZ- 19 Vaccine (3 - Mixed Product risk series)COVID-19 Vaccine (3 - Mixed Product risk series)[facility]: 75-28-3365TTLFY-19 Vaccine (3 - Moderna risk 3-dose series)COVID-19 Vaccine (3 - Moderna risk 3-dose series) [facility] [employer] Phone: start: 59-93-2431QXZLR-19 Vaccine (3 - Moderna risk 4- dose series)COVID-19 Vaccine (3 - Moderna risk 4-dose series)[facility] HospitalStart: 04-08-2021 End: 29-84-5349Hmcdqkr encounter kdzlahaat47/25/2021 Office Visit Endocrinology Charles Nowak MD [address] [place] [address] [phone] [facility] EndoStart: 04-07-2021 End: 56-82-7784Lztvnv Visit04/07/2021 Office Visit Endocrinology Charles Nowak MD [address] [place] [address] [phone] [facility] EndoStart: 03-26-2021 End: 97-53-7349Hxsvprlgwxr48/12/2021 Appointment Infusion TherapyMWHZ MED ONC Start: 46-19-9966YMBOS-19 Vaccine (2 - Moderna 2-dose series)COVID-19 Vaccine (2 - Moderna 2-dose series)[facility] Work Phone: start: 02-26-2021 End: 45-12-5709Dosmnbazcla85/14/2021 Appointment Infusion TherapyMWHZ MED ONC Start: 02-06-2021 End: 15-02-0666Zaokhp Visit02/06/2021 Office Visit Endocrinology Charles Nowak MD [address] [place] [address] [phone] [facility] EndoStart: 01-30-2021 End: 60-08-3714Jnpmxy VisitUnityPoint Health-Saint Luke'sStgainesville: 01-29-2021 End: 63-11-9611Wubkrttewgw32/17/2021 Appointment Infusion TherapyMWHZ MED ONC Start: 47-95-6925ZvT3f (Bld) [Mass fraction]A1C test (Diabetic or Prediabetic) [facility] KYStart: 01-09-2021 End: 25-54-4518Bnqiqo Visit01/09/2021 Office Visit Endocrinology Charles Nowak MD [address] [place] [address] [phone] [facility] Specialty PhysiciansStart: 01-01-2021 End: 12-55-2103Lsauopqrnfu39/17/2021 Appointment Infusion TherapyMWHZ MED ONC Start: 12-05-2020 End: 12-15-6552Wnhgmf Visit12/05/2020 Office Visit Endocrinology Charles Nowak MD [address] [place] [address] [phone] [facility] Specialty PhysiciansStart: 12-02-2020 End: 59-43-0788Ixhfmbyswjv08/18/2021 Appointment Infusion TherapyMWHZ MED ONC Start: 11-28-2020 End: 73-21-0152Yeowtj Visit11/28/2020 Office Visit Oncology Trevor Serna MD [address] [place] [address] THTXXMERCER [facility]: 11-13-2020 End: 10-78-7600Amxsc Only11/13/2020 Nurse Only [facility]: 11-04-2020 End: 38-52-2215Kdidqujksjl62/21/2020 Appointment Infusion TherapyMWHZ MED ONC Start: 11-01-2020 End: 58-35-3893Xilkghylfad52/18/2020 Appointment Infusion TherapyMWHZ MED ONC Start: 10-31-2020 End: 19-09-6583Rfjvey Visit10/31/2020 Office Visit Family Lion Cornejo MD [address] [place] [address] [phone] [facility]: 10-23-2020 End: 83-61-4894Rayera Visit10/23/2020 Office Visit Oncology Trevor Serna MD [address] [place] [address] EZFZLMERCER [facility] 10-22-2020 End: 78-94-4584Bbqwnu Visit10/22/2020 Office Visit Lion Knowles MD [address] [place] [address] [phone] [facility]: 33-58-3064Zxckzadisq measurementCreatinine monitoringA[facility]: 87-16-1577Esktzasrdv monitoringCreatinine monitoringMartin [facility] Hospital Work Phone: start: 49-63-1415Ekzhekwawgnv 0-64 years Vaccine (3 - PPSV23 if available, else PCV20)Pneumococcal 0-64 years Vaccine (3 - PPSV23 if available, else PCV20)ALEXUS GARCIA [facility]: 22-22-8355Rodbrbylxxad 0-64 years Vaccine (3 - PPSV23 or PCV20)Pneumococcal 0-64 years Vaccine (3 - PPSV23 or PCV20)[facility]: 67-75-3100Sanzdpton monitoringPotassium monitoring [facility] Work Phone: start: 33-75-4131AhK7o (Bld) [Mass fraction]A1C test (Diabetic or Prediabetic)[facility], [facility]: 40-08-3838Ralftckyat monitoringCreatinine monitoringMetroHealth [facility], [facility]: 55-54-7319Gzwwqdefg monitoringPotassium monitoringMet[facility]Health [facility], [facility]: 41-32-0108Zssbrwundv monitoringCreatinine [facility], [facility] Centerart: 09-23-8818Xjmwysxbl monitoringPotassium [facility], [facility]: 10-03-2020 End: 51-96-8097Hjloeqpmsxv82/19/2020 Appointment Infusion TherapyMWHZ MED ONC Start: 71-55-7910B3T test (Diabetic or Prediabetic)A1C test (Diabetic or Prediabetic)[facility], [facility] Centerart: 74-04-8950EvR8t (Bld) [Mass fraction]A1C test (Diabetic or Prediabetic)[facility], [facility]: 40-17-1211Wjjni panel Lipid screenMetroHealth [facility], [facility]: 46-44-5479Hmlja screenLipid screenMetroHealth [facility], [facility] Centerart: 17-70-1089T6R test (Diabetic or Prediabetic)A1C test (Diabetic or Prediabetic)[facility], [facility]: 56-58-0441Fhearsuliv monitoringCreatinine [facility], [facility] Centerart: 02-00-0632Zierr screen Lipid screenMetroHealth [facility], [facility] Centerart: 36-32-8269Fsjoiizuo monitoringPotassium [facility], [facility]: 09-25-2020 End: 03-89-4066Xyimsy Visit09/25/2020 Office Visit Oncology Trevor Serna MD [address] [place] [address] [place] [address] ONCOLOGY SPECIALISTS [facility]: 94-46-8343Lvzzvgsesc monitoring Creatinine monitoringMetroHealth [facility], KYStart: 55-04-9911Dwibtzbhz monitoring Potassium monitoringMetroHealth [facility], KYStart: 09-11-2020 End: 83-19-9276Sigbip Visit09/11/2020 Office Visit Oncology Trevor Serna MD [address] [place], [place] [address] [phone] COUNTY [facility]: 46-37-7507Hmbfhoyemm monitoring Creatinine monitoringMetroHealth [facility], ALStart: 95-43-5904Qahfkfgel monitoring Potassium monitoringMetroHealth [facility], KYStart: 09-04-2020 End: 88-06-3770Vlgtibrmsqi70/21/2020 Appointment Infusion TherapyMWHZ MED ONC Start: 84-11-2133Dpqqdcwjbl monitoringCreatinine monitoringEast [facility] [place], [place] Start: 15-77-2911Fvrsckpkh monitoringPotassium monitoringMetroHealth [facility], [place] Start: 08-14-2020 End: 46-14-5268Cxzzej Visit08/14/2020 Office Visit Oncology Trevor Serna MD [address] [place], [place] [address] [phone] COUNTY COMM[facility]: 08-07-2020 End: 21-28-0875Ngovusekkvg30/23/2020 Appointment Infusion TherapyMWHZ MED ONC Start: 91-27-7721Fxmdesjlf vaccinationFlu vaccine (#1)[facility]: 07-12-2020 End: 90-13-8087Wdrpub Visit07/12/2020 Office Visit Family Medicine Lion Carlson MD [address] [place] [address] [phone] [facility]: 74-48-1060WoR9v (Bld) [Mass fraction]A1C test (Diabetic or Prediabetic)[facility]: 07-08-2020 End: 82-77-4451Ictjcfkuqhg03/24/2020 Appointment Infusion TherapyMWHZ MED ONC Start: 75-49-0923Zexxqnxpwt monitoringCreatinine monitoringMercy Health- [place], [place] Start: 00-17-9550Ilscy screenLipid screenEast [facility] Hospital [place], KYStart: 06-28-2020 Potassium monitoringPotassium monitoringEast [facility] Hospital [place], [place]Start: 06-10-2020 End: 88-64-5690Mowwplckxsd44/27/2020 Appointment Infusion TherapyMWHZ MED ONC Start: 61-25-1701Ozcklcmjax monitoringCreatinine monitoringMartin [facility]- [place], [place] Start: 30-74-0732Sorwomqpt monitoringPotassium monitoringMartin [facility]- [place], [place] Start: 05-10-2020 End: 94-28-1440Lsghyzhliax19/26/2020 Appointment Infusion TherapyMWHZ MED ONC Start: 04-12-2020 End: 23-41-5290Yfomsdwoydb26/29/2020 Appointment Infusion TherapyMWHZ MED ONC Start: 04-11-2020 End: 79-92-4357Vmobya Visit04/11/2020 Office Visit Family Medicine Lion Carlson MD [address] [place] [address] [phone] [facility]: 04-10-2020 End: 85-45-3721Abdagk Visit04/10/2020 Office Visit Oncology Yoel-Trevor Kumari MD [address] [place] [address] WFREHMERCER [facility]: 61-10-6019Pcmcv screenLipid screen [facility], KYStart: 03-08-2020 End: 75-42-5755XbxaqkejczaHXPR MED ONCStart: 02-12-2020 End: 29-09-1588LundcfahpwmNOFY CARDIAC REHABComment on above:Canceled (Other) Start: 02-09-2020 End: 09-52-5712TobdriqvfmePLQA CARDIAC REHABStart: 02-07-2020 End: 46-12-8798Sjsjbcvrknx88/25/2020 Appointment Cardiac RehabilitationMZ CARDIAC REHABStart: 02-05-2020 End: 21-38-4386Bwennoormrw23/23/2020 [facility]ointment [facility] RehabilitationMBERTR[facility] CARDIAC REHABStart: 02-02-2020 End: 36-11-3684Egjpdkqcjjk93/20/2020 Appointment Card[facility] RehabilitationMBERTR[facility] CARDIAC REHABStart: 01-31-2020 End: 13-26-4250BdxtukxbfqrPKXH CARDIAC REHABStart: 01-29-2020 End: 21-68-0426Rjasqdjgjyd10/16/2020 Appointment Cardiac RehabilitationMZ CARDIAC REHABStart: 01-26-2020 End: 89-57-0585Igrpflzqclw04/13/2020 Appointment Cardiac RehabilitationMZ CARDIAC REHABStart: 01-24-2020 End: 31-83-5232Nmzecttswui17/11/2020 Appointment Cardiac RehabilitationMZ CARDIAC REHABStart: 01-22-2020 End: 96-20-6000Buwtjvqcjno65/09/2020 Appointment Cardiac RehabilitationMZ CARDIAC REHABStart: 01-19-2020 End: 24-81-2806VegsdjuqllmVAFU CARDIAC REHABStart: 01-17-2020 End: 72-40-4359Zuoynojykux63/04/2020 Appointment [facility] RehabilitationMBERTR[facility] CARDIAC REHABStart: 01-15-2020 End: 69-95-5588Yyzqnedkszz38/02/2020 Appointment [facility] RehabilitationMBERTR[facility] CARDIAC REHABStart: 01-12-2020 End: 57-80-1612Jysqpjcrgim35/28/2020 Appointment [facility] RehabilitationMBERTR[facility] CARDIAC REHABStart: 01-10-2020 End: 46-37-2651Vnzhkexmbri14/26/2020 Appointment Cardiac RehabilitationMZ CARDIAC REHABStart: 01-08-2020 End: 06-32-7835FoaacwmlepdLGXY CARDIAC REHABStart: 01-05-2020 End: 58-19-4173Lsseuldgklx19/21/2020 Appointment [facility] RehabilitationMBERTR[facility] CARDIAC REHABStart: 01-03-2020 End: 33-67-5172Bznvsohegmt58/19/2020 Appointment Cardiac RehabilitationMZ CARDIAC REHABStart: 01-01-2020 End: 21-79-2611Xmtrxbyavoa26/17/2020 Appointment Cardiac RehabilitationMZ CARDIAC REHABStart: 12-29-2019 End: 67-14-2579Jurbjngnttk15/14/2020 Appointment Cardiac RehabilitationMZ CARDIAC REHABStart: 12-27-2019 End: 22-77-4868Mvoeokoszyo51/12/2020 Appointment [facility] RehabilitationMBERTR[facility] CARDIAC REHABStart: 12-25-2019 End: 45-25-3006Gyibvleatxq45/10/2020 Appointment Card[facility] RehabilitationMBERTR[facility] CARDIAC REHABStart: 12-22-2019 End: 39-86-4178Xsqxiucdtkm75/07/2020 Appointment Card[facility] RehabilitationMBERTR[facility] CARDIAC REHABStart: 12-20-2019 End: 37-23-7528DdyrchhiillYFFF CARDIAC REHABStart: 12-18-2019 End: 13-46-4447Lbpfytnbyss43/03/2020 Appointment Cardiac RehabilitationMAIMONID[facility] CARDIAC REHABStart: 83-24-4544Bzlddlwlneqx 0-64 years Vaccine (3 of 3 - PPSV23 or PCV20)Pneumococcal 0-64 years Vaccine (3 of 3 - PPSV23 or PCV20)[facility]: 45-06-3163Emdfpojxgxrk 0-64 years Vaccine (3 of 3 - PPSV23) Pneumococcal 0-64 years Vaccine (3 of 3 - PPSV23)[facility]: 14-84-3196Ujryqvzwruhf 0-64 years Vaccine (3 of 4 - PPSV23)Pneumococcal 0-64 years Vaccine (3 of 4 - PPSV23)[facility]: 43-01-8854Ubfdirobukbo 50+ years Vaccine (3 of 3 - PCV20 or PCV21)Pneumococcal 50+ years Vaccine (3 of 3 - PCV20 or PCV21)[facility]: 85-60-8404Oplqriueayso 50+ years Vaccine (3 of 3 - PPSV23, PCV20 or PCV21)Pneumococcal 50+ years Vaccine (3 of 3 - PPSV23, PCV20 or PCV21)[facility]: 83-39-9847Lyhobhpnggsv Vaccine: 50+ Years (3 of 3 - PCV20 or PCV21)Pneumococcal Vaccine: 50+ Years (3 of 3 - PCV20 or PCV21)[facility]: 12-15-2019 End: 55-81-4398Qhowlaozapj91/31/2020 Appointment Cardiac RehabilitationMAIMONID[facility] CARDIAC REHABStart: 12-13-2019 End: 27-11-8610Kokzen VisitTiffin [facility] SpringsStart: 12-11-2019 End: 72-91-1157JsknaocldcePOUR CARDIAC REHABStart: 12-08-2019 End: 21-88-1364Ejbxppcetxc23/24/2020 Appointment Cardiac RehabilitationMZ CARDIAC REHABStart: 12-06-2019 End: 94-17-5378Umvukbynwwy05/22/2020 Appointment Cardiac RehabilitationMZ CARDIAC REHABStart: 12-04-2019 End: 77-60-1741Jtfczcxyzra13/20/2020 Appointment Cardiac RehabilitationMZ CARDIAC REHABStart: 12-01-2019 End: 67-66-7157Qmqkovoxcqt22/17/2020 Appointment Cardiac RehabilitationMZ CARDIAC REHABStart: 11-29-2019 End: 95-79-7341Tpbgunxcmjd25/15/2020 Appointment Cardiac RehabilitationMZ CARDIAC REHABStart: 11-27-2019 End: 66-10-6261Rfeyqyrukbt09/13/2020 Appointment Cardiac RehabilitationMZ CARDIAC REHABStart: 11-24-2019 End: 09-84-9220Epcfafqeexx55/10/2020 Appointment Cardiac RehabilitationMZ CARDIAC REHABStart: 11-22-2019 End: 13-22-5924Mvayzypxmmj23/08/2020 Appointment Cardiac RehabilitationMZ CARDIAC REHABStart: 11-20-2019 End: 64-95-1890Bgpuyfffxan61/06/2020 Appointment Cardiac RehabilitationMZ CARDIAC REHABStart: 11-17-2019 End: 63-44-1855Lbuesgcdgba34/03/2020 Appointment Cardiac RehabilitationMZ CARDIAC REHABStart: 11-13-2019 End: 43-86-3834MzmftxkkmokMKFO MED ONCStart: 11-10-2019 End: 20-60-0394Oapziclinzi63/27/2019 Appointment Cardiac RehabilitationMZ CARDIAC REHABStart: 11-06-2019 End: 55-61-7539Urmzhhyicqg85/23/2019 Appointment Cardiac RehabilitationMZ CARDIAC REHABStart: 11-03-2019 End: 92-37-8565Ypxzesjgjxb03/20/2019 Appointment Cardiac RehabilitationMZ CARDIAC REHABStart: 11-01-2019 End: 64-81-7882Goqvilbdxpf53/18/2019 Appointment Cardiac RehabilitationMZ CARDIAC REHABStart: 10-30-2019 End: 91-78-5026Tjqyvnoajzd70/16/2019 Appointment Cardiac RehabilitationMWHZ CARDIAC REHABStart: 10-27-2019 End: 70-58-7601Sfshmitljbz64/13/2019 Appointment Cardiac RehabilitationMWHZ CARDIAC REHABStart: 10-25-2019 End: 88-14-5846Zftoft VisitTiffin [facility]Start: 10-23-2019 End: 54-50-0413Uvvosvnafat38/09/2019 Appointment Cardiac RehabilitationMWHZ CARDIAC REHABStart: 10-20-2019 End: 26-46-3656Oyqgix Visit10/20/2019 Office Visit Lion Knowles MD [address] [place] [address] [phone] [facility]: 10-18-2019 End: 06-50-7936Rysjmshzzgo06/04/2019 Appointment Cardiac Rehabilitation Ananda Campos RNMWHZ CARDIAC REHABStart: 14-47-9077Bzflilhy Tmrfpflrg68/03/2019 Hospital Encounter Cardiac RehabilitationMWHZ CARDIAC REHABStart: 10-16-2019 End: 53-57-7652Ksjndcjewwn75/02/2019 Appointment Infusion TherapyMWHZ MED ONC Start: 09-29-2019 End: 52-70-0247Nvhags Visit09/29/2019 Office Visit Lion Knowles MD [address] [place] [address] [phone] [facility]: 41-95-2161L0L test (Diabetic or Prediabetic)A1C test (Diabetic or Prediabetic)[facility] CenterMALINIStart: 09-15-2019 End: 22-12-0621Lrtoz metabolic 2000 panelBasic Metabolic Panel Lab Routine CKD (chronic kidney disease) stage 3, GFR 30-59 ml/min (HCC) REJI (acute kidney injury) (HCC) Expected: 09/15/2019, Expires: 09/08/2020[place], [place] Comment on above:Expected: 09/15/2019, Expires: 09/08/2020Start: 09-15-2019 End: 55-27-9316Hqjictftium59/01/2019 Appointment Infusion [facility] Start: 09-13-2019 End: 14-81-3652Xhgthk Visit09/13/2019 Office Visit Oncology Trevor Serna MD [address] [phone] [facility]istsStart: 09-12-2019 End: 74-27-0933UWG With Auto DifferentialCBC With Auto Differential Lab Routine Hematoma Expected: 09/12/2019, Expires: 09/08/2020[facility] on above:Expected: 09/12/2019, Expires: 09/08/2020Start: 92-73-4144Bybepppmi vaccinationFlu vaccine (#1)[place]: [place]2019 End: 68-36-5969Afkvozklvqh15/30/2019 Appointment Infusion TherapyM[facility] Start: 06-30-2019 End: 71-89-4643Upbxju Visit06/30/2019 Office Visit Family Medicine Lion Cralson MD [address] [place] [address] [phone] [facility] HospitalStart: 90-21-3979R3U test (Diabetic or Prediabetic)A1C test (Diabetic or Prediabetic)[place], [place] Administration of herpes zoster vaccineZoster Vaccines (1 of 2)[facility]HealthStart: 10-43-6868Dlfya Cancer Screen FIT/FOBTColon Cancer Screen FIT/FOBTEagle [place], [place]Start: 01-80-6616MCX Vaccines (1 - Risk 50-74 years 1-dose series)RSV Vaccines (1 - Risk 50-74 years 1-dose series)[facility]HealthStart: 2019 Screening for malignant neoplasm of colonOhioHealthStart: 16-29-0914Udrzinbs Vaccine (1 of 2)Shingles Vaccine (1 of 2)[facility]: 11-26-2018[object Object]Diabetic foot examEagle [place], [place]Start: 72-04-6156Nbqlcytn foot examinationDiabetic foot examEagle [place], [place]Start: 02-90-9832Akqhmuke retinal examDiabetic retinal examAultman Hospital: 08-26-2015 Pneumococcal 0-64 years Vaccine (2 of 3 - PCV13)Pneumococcal 0-64 years Vaccine (2 of 3 - PCV13)[facility]: 29-82-9863Nfvrifdt microalbuminuria testDiabetic microalbuminuria testAultman Hospital: 06-27-8646Iystv screening for proteinUrine MicroalbuminOhSumma Health: 92-81-8919Nrqxvhngo B vaccine (1 of 3 - Risk Dialysis 4-dose series)Hepatitis B vaccine (1 of 3 - Risk Dialysis 4-dose series)[facility]: 85-68-2833TWuI/Tdap/Td vaccine (1 - Tdap)DTaP/Tdap/Td vaccine (1 - Tdap)[facility]: 1988 Hepatitis B vaccinationHepatitis B Vaccines (1 of 3 - 19+ 3-dose series) [facility]: 59-53-5896Lachqqfty B Vaccine (1 of 3 - Risk 3-dose series) Hepatitis B Vaccine (1 of 3 - Risk 3-dose series)[facility]: 1988 Shingles vaccine (1 of 2)Shingles vaccine (1 of 2)[facility]: 61-84-9066Whlkxceabgg for diphtheria, pertussis, and tetanus Tetanus/Diphtheria/Pertussis (1 - Tdap)[facility] HospitalStgaines[place]: 01-83-0374Cayqwocbh C screeningHepatitis C ScreeningOhioLong Island Community Hospitalart: 84-83-7119BCAGO-19 Vaccine (1) COVID-19 Vaccine (1)[facility] Work Phone: start: 54-31-2790AQM screenHIV screenAultman Hospital: 61-51-8686DOH screeningHighland District Hospital: 19-16-6291Agjoolgxjz screening using PHQ-9 (Patient Health Questionnaire 9) scoreOhioOhio Valley Surgical HospitalStart: 1980 DTaP/Tdap/Td vaccine (1 - Tdap)DTaP/Tdap/Td vaccine (1 - Tdap)[facility]: 91-73-6676Xaoiqhsu foot examinationDiabetic Foot ExamOhioLong Island Community Hospitalart: 24-55-1603Kxyzlnba screeningDiabetic Eye ExamOhioHealthStart: 17-05-2487Fkrru screening for proteinUrine (micro)albumin/creatinine ratio - DiabetesOhioHealth [facility] Start: 93-49-4365Teidgep and physical examination, annual for health maintenance Wellness VisitOhioHealthStart: 06-28-1972Medicare Wellness VisitMedicare Wellness VisitOhioHealthStart: 43-42-6809Freaedh-mumps-rubella vaccinationMMR Vaccines (1 of 1 - Standard series)[facility]HealthStart: 74-97-9834Cozswmgjj B vaccine (1 of 3 - 3-dose series)Hepatitis B vaccine (1 of 3 - 3-dose series)[facility]ITALStart: 78-33-2754Yewovewbn C screeningHepatitis C screen [facility], [place]Start: 01-08-5055Gtaduidk specific antigen measurementPSA LevelScioHealthStart: 41-73-5438Fqmapewht for malignant neoplasm of colon New JerseyHealthStart: 65-83-8279Locrlfo vaccinationTetanus: Every 10yrsOhioHeal End: lead ECGECG 12 Lead ECG Routine Once for 1 Occurrences starting 06/21/2024 until 06/21/2024[facility] Work Phone: Comment on above:Once for 1 Occurrences starting 06/21/2024 until 06/21/2024asic metabolic 2000 [facility], [place]Comment on above:Daily until discontinued starting 09/09/2019, 1 completedDaily until discontinued starting 10/02/2019, 6 completedDaily until discontinued starting 10/01/2019, 1 completed End: 35-66-3050Hyvms metabolic 2000 panel - Serum or PlasmaBasic metabolic panel Lab Routine ESRF (end stage renal failure) (HCC) 1 Occurrences starting 2023 until 05/11/2025[facility] Work Phone: comment on above:1 Occurrences starting 05/11/2024 until 05/11/2025 End: 17-45-0859Dcezx glucose - POCTBlood glucose - POCT Point of Care Testing Routine One Time for 1 Occurrences starting 08/29/2024 until 08/29/2024on SportID HealthComment on above:One Time for 1 Occurrences starting 08/29/2024 until 08/29/2024 End: 72-81-5864Lrkjb Occult Stool Screen #1Blood Occult Stool Screen #1 Lab Routine One Time for 1 Occurrences starting 02/09/2025 until 02/09/2025on SportID HealthComment on above:One Time for 1 Occurrences starting 02/09/2025 until 02/09/2025 End: 49-86-1202LIIWIFX PHASE IICARDIAC PHASE II Card Rehab One Time for 1 Occurrences starting 04/16/2025 until 04/16/2025on SportID HealthComment on above:One Time for 1 Occurrences starting 04/16/2025 until 04/16/2025 End: 99-10-6871DJQDTYR PHASE IICARDIAC PHASE II Card Rehab One Time for 1 Occurrences starting 04/23/2025 until 04/23/2025on SportID HealthComment on above:One Time for 1 Occurrences starting 04/23/2025 until 04/23/2025 End: 55-81-2065OFFBNHP PHASE IICARDIAC PHASE II Card Rehab One Time for 1 Occurrences starting 04/30/2025 until 04/30/2025on LocoMobiComment on above:One Time for 1 Occurrences starting 04/30/2025 until 04/30/2025ardiac Stress Test- W PharmCardiac Stress Test- W Pharm Cardiac Services Routine 09/29/2019 2:00 PM [employer], [employer] End: 31-77-1112ZQH Auto DifferentialCBC Auto Differential Lab Routine Tomorrow AM for 3 Occurrences starting 09/09/2019 until 09/11/2019, 1 completedUniversity Hospitals Health SystemAnybots, MicroCoalComment on above:Tomorrow AM for 3 Occurrences starting 09/09/2019 until 09/11/2019, 1 completed End: 61-98-6642JBH panel - Blood by Automated countCBC Lab Routine ESRF (end stage renal failure) (HCC) 1 Occurrences starting 05/11/2024 until 05/11/2025 New JerseyHealthComment on above:1 Occurrences starting 05/11/2024 until 05/11/2025 End: 62-58-1091PKD panel - Blood by Automated countCBC Lab Routine Every Other Day for 10 Days starting 02/11/2025 until 02/19/2025, 2 completedBon [facility] Semblee_Comment on above:Every Other Day for 10 Days starting 02/11/2025 until 02/19/2025, 2 completed End: 29-99-7295Ilzyfuxsqegt AChromogranin A Lab Routine Carcinoid tumor of stomach 1 Occurrences starting 09/12/2019 until 09/12/2019[facility], [place] Comment on above:1 Occurrences starting 09/12/2019 until 09/12/2019Chromogranin AMK[facility], [place] End: 12-10-2524Peojocfgognd AChromogranin A Lab Routine Carcinoid tumor of stomach, unspecified whether malignant 1 Occurrences starting 04/03/2020 until 04/03/2020[facility], ALComment on above:1 Occurrences starting 04/03/2020 until 04/03/2020 End: 55-28-5382Araxzxsallri AChromogranin A Lab Routine Carcinoid tumor of stomach, 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) 1 Occurrences starting 07/10/2020 until 07/10/2020[facility] [place] Comment on above:1 Occurrences starting 07/10/2020 until 07/10/2020 End: 71-49-2149Rzaahajknnqg AChromogranin A Lab STAT Carcinoid tumor of stomach, unspecified whether malignant 1 Occurrences starting 09/18/2020 until 09/18/2020 [facility], ALComment on above:1 Occurrences starting 09/18/2020 until 09/18/2020 End: 29-40-5963Ilomgilpdnkf AChromogranin A Lab Routine Carcinoid tumor of stomach, 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) 1 Occurrences starting 04/25/2021 until 04/25/2021[facility] SystemSigma Pharmaceuticals Phone: comment on above:1 Occurrences starting 04/25/2021 until 04/25/2021 End: 98-45-1743Lyrphxxpxvfj [facility] [employer] Phone: combksy on above:1 Occurrences starting 03/17/2022 until 03/17/2022 End: 49-72-0952Mfuqgvfdaxxq ABON [employer] Work Phone: comment on above:1 Occurrences starting 08/11/2022 until 08/11/2022 End: 76-25-8888Zqqetxwrueou RDN [employer] Work Phone: comdujs on above:1 Occurrences starting 03/08/2023 until 03/08/2023 End: 80-95-9399Oomzngixxzif [facility] LocoMobiComment on above:1 Occurrences starting 10/19/2024 until 10/19/2024 End: 14-75-9241Irkwukntqpva [facility] LocoMobiComment on above:1 Occurrences starting 04/23/2025 until 04/23/2025ontinuous Ambulatory Peritoneal Dialysis (CAPD)Continuous Ambulatory Peritoneal Dialysis (CAPD) Dialysis Routine Daily until discontinued fitklbav91/30/2025on [employer] Phone: Comment on above:Daily until discontinued starting 02/11/2025ontinuous pulse oximetryPulse oximetry, continuous Respiratory Care Routine Every 4hr until discontinued starting 02/09/2025on [employer] Comment on above:Every 4hr until discontinued starting 02/09/2025PAPCPAP Respiratory Care Routine As Needed until discontinued starting 09/28/2019[facility] SystemAny[facility], MALINIComment on above:As Needed until discontinued starting 09/28/2019 End: 93-32-1409Nijbnhzdsr (U) [Mass/Vol]Creatinine, Random Urine Lab Routine Once for 1 Occurrences starting 08/29/2019 until 08/29/2019[facility] SystemAny[facility], MALINI Comment on above:Once for 1 Occurrences starting 08/29/2019 until 08/29/2019 Creatinine (U) [Mass/Vol]Creatinine, Random Urine Lab Routine 08/29/2019 2:31 PM [employer], MALINI End: 26-05-8318Idzxtsclou [Mass/volume] in UrineBON [employer] Work Phone: Comment on above:Once for 1 Occurrences starting 05/25/2022 until 05/25/2022 End: 95-06-3595RW Abdomen and Pelvis W contrast IVCT Abdomen Pelvis With Contrast Imaging Routine GIST, non-malignant 1 Occurrences starting 03/27/2024 until 03/27/2025OhioBonzerDarg Work Phone: comment on above:1 Occurrences starting 03/27/2024 until 03/27/2025 End: 94-77-0686Btzn (TTE) complete (PRN contrast/bubble/strain/3D)[facility] [employer] Work Phone: Comment on above:1 Occurrences starting 10/19/2024 until 10/19/2024EKG 12 leadEKG 12 lead ECG Routine As Needed until discontinued starting 09/29/2019[facility] BonzerDargPIKE [facility], [place]Comment on above:As Needed until discontinued starting 09/29/2019EKG 12 leadEKG 12 lead ECG Routine Vitamin D deficiency Mixed hyperlipidemia Coronary artery disease involvingnative coronary artery of 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 angina pectoris Fatigue, unspecified type Shortness of breath NABOR (obstructive sleep apnea) Benign essential HTN 03/17/2022 12:19 PM EDDiversied [employer] And [employer] Work Phone: EKG 12 LeadEKG 12 Lead ECG Routine 02/14/2025 12:08 PM EDTBon [employer] Work Phone: EKA 12 lead - PRN for Chest Pain or symptoms of ACSBon [employer]Com[employer] Live on above:As Needed for 1 Occurrences starting 02/09/2025s Needed for 999 Occurrences starting 02/09/2025Glucose [Mass/volume] in Serum or PlasmaPOCT Glucose Point of Care Testing STAT As Needed until discontinued starting 02/09/2025 [employer] Work Phone: comment on above:As Needed until discontinued starting 02/09/2025Glucose [Mass/volume] in Serum or PlasmaPOCT Glucose Point of Care Testing Routine 4X Daily (AC & HS) until discontinued starting 02/10/2025 [employer] on above:4X Daily (AC & HS) until discontinued starting 02/10/2025Glucose [Mass/volume] in Serum or PlasmaBon [employer] on above:4X Daily (AC & HS) until discontinued starting 02/10/2025 As Needed until discontinued starting 02/10/2025 End: 77-26-7421Jzppnmeavd A1c/Hemoglobin.total in [employer] Work Phone: comtdxw on above:1 Occurrences starting 10/22/2021 until 10/22/2021 End: 79-41-3371Saexhlqunt A1c/Hemoglobin.total in [employer] Work Phone: comgcrp on above:Once for 1 Occurrences starting 03/17/2022 until 03/17/2022 End: 58-95-1837Lcpiazubvr A1c/Hemoglobin.total in [employer] Work Phone: comdxmc on above:1 Occurrences starting 07/14/2022 until 07/14/2022 End: 05-30-9092Eukarxddgs A1c/Hemoglobin.total in [employer] Work Phone: comlfpm on above:1 Occurrences starting 11/12/2022 until 11/12/2022 End: 56-99-0074Fotzkcypue A1c/Hemoglobin.total in [employer] Work Phone: combztj on above:1 Occurrences starting 03/08/2023 until 03/08/2023 End: 35-68-8006Lefursdetu A1c/Hemoglobin.total in HW Comment on above:1 Occurrences starting 10/19/2024 until 10/19/2024 End: 40-09-1699Idscgimwev A1c/Hemoglobin.total in HW Comment on above:1 Occurrences starting 02/22/2025 until 02/22/2025 End: 87-18-4371Rtxldydogh and HematocritHemoglobin and Hematocrit Lab Routine Post Transfusion Post Transfusion Post Transfustion until discontinued starting 02/13/2025 LocoMobiComment on above:Post Transfusion Post Transfusion Post Transfustion until discontinued starting 02/13/2025Hemoglobin and Hematocrit, [employer]- [place], [place]Comment on above:Every 8hr until discontinued starting 09/04/2019, 10 completedEvery 8hr until discontinued starting 09/04/2019, 2 completedPost Transfusion Post Transfusion Post Transfustion for 1 Occurrences starting 09/07/2019 End: 14-16-9779Ibxgjizvg B Surface AntigenBANNER GOLDFIELD [facility] [employer] Phone: Comment on above:Once for 1 Occurrences starting 06/07/2024 until 06/07/2024Home BIPAP or CPAPHome BIPAP or CPAP Respiratory Care Routine Daily until discontinued starting 09/04/2019[facility] SystemAny[facility], MicroCoalComment on above:Daily until discontinued starting 09/04/2019Home BIPAP or CPAPHome BIPAP or CPAP Respiratory Care Routine QHS until discontinued starting 5Bon LocoMobiComment on above:QHS until discontinued starting 02/09/2025Initiate Oxygen Therapy ProtocolUniversity Hospitals Health SystemAnybots, MicroCoalComment on above:Daily until discontinued starting 09/04/2019Daily until discontinued starting 09/28/2019Daily until discontinued starting 10/02/2019Daily until discontinued starting 10/06/2019 End: 87-24-0454CMXBEAXE PACU OXYGEN THERAPY PROTOCOLInitiate PACU Oxygen Therapy Protocol Respiratory Care Routine Continuous until discontinued starting 08/29/2024on LocoMobiComment on above:Continuous until discontinued starting 08/29/2024Laps insertion tunneled intraperitoneal catheterINSERTION CATHETER PERITONEAL LAPAROSCOPIC ESRF (end stage renal failure) ([facility] Main OR End: 78-47-8758Lswzj [facility] [employer] Phone: comment on above:1 Occurrences starting 03/22/2023 until 03/22/2023 End: 60-25-8837Jrubkihhjvrs / Creatinine Urine RatioMicroalbumin / Creatinine Urine Ratio Lab Routine Controlled type 2 diabetes mellitus without compli cation, with long-term current use of insulin ([facility]) 1 Occurrences starting 11/12/2022 until 11/12/2022ON [employer] Phone: comgsqj on above:1 Occurrences starting 11/12/2022 until 11/12/2022Microalbumin, UrMicroalbumin, Ur Lab Routine 11/12/2022 1:04 PM [facility]Ad[facility] Phone: End: 47-99-5593Pvkel Cannula OxygenNasal Cannula Oxygen Respiratory Care Routine As Needed until discontinued starting 09/28/2019[facility] SystemAnybots, [place]Comment on above:As Needed until discontinued starting 09/28/2019 End: 95-35-5784OL Cardiac Stress Test Nuclear ImagingNM Cardiac Stress Test Nuclear Imaging Imaging Routine Once for 1 Occurrences starting 09/28/2019 until 09/28/2019[facility] SystemAny[facility]ots, [place]Comment on above:Once for 1 Occurrences starting 09/28/2019 until 09/28/2019 End: 31-94-7823Rvchjs therapy [Minimum Data Set]Initiate Oxygen Therapy Protocol Respiratory Care Routine Carcinoid tumor of stomach, unspecified whether malignant As Needed until discontinued starting 06/07/2024 [employer] Phone: Comment on above:As Needed until discontinued starting 06/07/2024Oxygen therapy [Minimum Data Set]Initiate Oxygen Therapy Protocol Respiratory Care Routine As Needed until discontinued starting 08/29/2024 [employer] Phone: Comment on above:As Needed until discontinued starting 08/29/2024Oxygen therapy [Minimum Data Set]Initiate Oxygen Therapy Protocol Respiratory Care Routine As Needed until discontinued starting 08/29/2024 [employer] Phone: Comment on above:As Needed until discontinued starting 08/29/2024Oxygen therapy [Minimum Data Set]Initiate Oxygen Therapy Protocol Respiratory Care Routine As Needed until discontinued starting 02/09/2025 LocoMobiComment on above:As Needed until discontinued starting 02/09/2025Oxygen therapy [Minimum Data Set]Initiate Oxygen Therapy Protocol Respiratory Care Routine As Needed until discontinued starting 02/13/2025 [employer] Phone: Comment on above:As Needed until discontinued starting 02/13/2025Platelets (Bld) [#/Vol]Platelet count Lab Routine Every Other Day until discontinued starting 10/02/2019, 2 completedUniversity Hospitals Health SystemAnybots, MicroCoalComment on above:Every Other Day until discontinued starting 10/02/2019, 2 completed End: 59-74-1163DCT CHEM8 INCLUDES CALC. ANION GAPPOC CHEM8 INCLUDES CALC. ANION GAP Point of Care Testing STAT One Time for 1 Occurrences starting 08/29/2024 until 08/29/2024 SecJZ Clothing and Cosplay DesignRay County Memorial Hospitalment on above:One Time for 1 Occurrences starting 08/29/2024 until 4POCT GlucoseMccullough-Hyde [facility] Hospital CancerGuide [facility] WYMALINI Comment on above:As Needed until discontinued starting 09/04/20194X Daily (AC & HS) until discontinued starting 09/28/2019As Needed until discontinued starting 09/28/20194X Daily (AC & HS) until discontinued starting 10/01/2019As Needed until discontinued starting 10/01/2019 End: 74-77-6662PBYP glucosePOCT glucose Point of Care Testing STAT One Time for 1 Occurrences starting 09/28/2019 until 09/28/2019[facility] BurtElif on above:One Time for 1 Occurrences starting 09/28/2019 until 09/28/2019 End: 51-69-3256YXMBGCV RBC (CROSSMATCH), 1 UnitsPREPARE RBC (CROSSMATCH), 1 Units Blood Bank Non-Stat Once for 1 Occurrences starting 09/07/2019 until 09/07/2019[facility] WYElif on above:Once for 1 Occurrences starting 09/07/2019 until 09/07/2019 End: 48-55-8944XPWWYMI RBC (CROSSMATCH), 1 UnitsPREPARE RBC (CROSSMATCH), 1 Units Blood Bank Routine Once for 1 Occurrences starting 02/13/2025 until 02/13/2025on [facility] [employer] Phone: comment on above:Once for 1 Occurrences starting 02/13/2025 until 02/13/2025 End: 19-86-1440Gyfrzzo / creatinine ratio, urineBON KAISER FOUNDATION HOSPITALScheduleThingCombryan on above:Once for 1 Occurrences starting 12/03/2023 until 12/03/2023 End: 98-65-1150Gofcbhy, urine, randomProtein, urine, random Lab Routine Once for 1 Occurrences starting 08/29/2019 until 08/29/2019[facility] WYElif on above:Once for 1 Occurrences starting 08/29/2019 until 08/29/2019Protein, urine, randomMetroHealth Cleveland Heights Medical CenterMALINI End: 12-31-4479Joeigzg, urine, randomProtein, urine, random Lab Routine Once for 1 Occurrences starting 07/25/2021 until 07/25/2021[employer] Work Phone: comment on above:Once for 1 Occurrences starting 07/25/2021 until 07/25/2021 End: 03-50-3929Vcbbxzi, urine, randomBON [employer] Work Phone: comment on above:Once for 1 Occurrences starting 05/25/2022 until 05/25/2022 End: 28-86-9134III, Sancta Maria HospitalDetectent Work Phone: Comment on above:Once for 1 Occurrences starting 01/16/2022 until 01/16/2022 End: 89-37-2350YWP, [employer] Work Phone: Comment on above:Once for 1 Occurrences starting 12/03/2023 until 4Pulse Oximetry Spot CheckPulse Oximetry Spot Check Respiratory Care Routine As Needed until discontinued starting 09/04/2019[facility] BonzerDargPIKE COUNTY [facility]IAL [facility], [place]Comment on above:As Needed until discontinued starting 09/04/2019 End: 94-97-4913Sgolzgr D 25 HydroxyVitamin D 25 Hydroxy Lab Routine Once for 1 Occurrences starting 07/25/2021 until 07/25/2021[employer] Phone: comment on above:Once for 1 Occurrences starting 07/25/2021 until 07/25/2021Vitamin D 25 HydroxyVitamin D 25 Hydroxy Lab Routine 07/25/2021 2:42 PM [facility] [employer]zerDarg Work Phone: End: 10-93-0505Ulldfmc D 25 HydroxyMercy BonzerDarg Work Phone: comment on above:Once for 1 Occurrences starting 01/16/2022 until 01/16/2022 End: 94-14-6679Tixaoho D 25 HydroxyMercy BonzerDarg Work Phone: Comment on above:1 Occurrences starting 03/17/2022 until 03/17/2022 End: 69-46-6960Kngcrhr D 25 HydroxyBON [employer] Work Phone: Comment on above:Once for 1 Occurrences starting 12/08/2022 until 12/08/2022 End: 38-29-0202Dqkgewx D 25 HydroxyBON [facility] [employer] Work Phone: Comment on above:1 Occurrences starting 03/22/2023 until 03/22/2023 End: 04-59-2900Aujhcqg D 25 HydroxyBON [facility] DAYTONComment on above:Once for 1 Occurrences starting 12/03/2023 until 12/03/2023 Immunizations Immunization DateImmunizationNotesCare IldanqawJijktyhj76-16-3625pqbpuslrq, injectable, madin shaylee canine kidney, preservative freeDavid Tiana RICHARDSON Work Phone: Bon [facility] CenterCvkfes38-38-7074sycxccepm virus vaccine, unspecified formulationJessy Byrne EGQmlxYakbtl40-84-0032 Influenza, injectable, Madin Shaylee Canine Kidney, preservative free, quadrivalentMwh 1BON [facility] Work Phone: [phone]c virus vaccine, unspecified formulationBrian Arevalo MD Work Phone: [phone]hxqxc03-82-0161Fezubhjpr, injectable, Madin Shaylee Canine Kidney, preservative free, quadrivalentMwh 1Mkettering health [facility] Work Phone: [phone]-34, MODERNA BLUE border, Primary or Immunocompromised, (age 12y+), IM, 100 mcg/0.5mLBilly Back Work Phone: bon [facility] DAYTONOFVXUZ93-67-7876HUYPO-21, [place] Vaccine, Vaccine UnspecifiedBilly Back MD Work Phone: [facility] Work Phone: [phone]-92, MODERNA BLUE border, Primary or Immunocompromised, (age 12y+), IM, 100 mcg/0.5mLBilly Back Work Phone: bon [facility] DAYTONOXDEMU82-71-8835OHMKC-84, [place] Vaccine, Vaccine UnspecifiedBilly Back Work Phone: [facility] Work Phone: [phone]n, injectable, quadrivalent, preservative freeMwh [address] [place] [address], EB02-97-3173osdmtclbc, injectable, quadrivalent, preservative freePearl River County Hospitally [facility], YN48-94-1296 pneumococcal conjugate vaccine, 13 valentKettering Health [place], [place] 92-37-0816qqawptyhd, injectable, quadrivalent, preservative freeMain Campus Medical CenterDauxgd16-04-3909iipbyqjbk, injectable, quadrivalent, preservative freeBilly [facility], IW31-62-2779tggtewxow, injectable, quadrivalent, preservative freeKettering Health [place], OE73-08-5527hfaxqdada virus vaccine, unspecified formulationKettering Health [place], VJ09-97-7907zudcixnde virus vaccine, unspecified formulationMain Campus Medical CenterPgkrkz04-40-4441woqhwpnipjcq polysaccharide vaccine, 23 valentKettering Health [place], GK60-10-5376 influenza virus vaccine, unspecified formulationKettering Health [place], [place] NEGATED: Highlighted row has not occurred!16-31-4654veuzhcjcf, injectable, quadrivalent, preservative freeMwh [address] Anderson StreetComment on above:Deferred: - patient stated he wants it prior to being discharge, not before surgery NEGATED: Highlighted row has not occurred!46-35-1662ubyjhvbtj, injectable, quadrivalent, preservative freeChristina J.W. Ruby Memorial HospitalComment on above: Deferred: - states he will get it at his PCP office next week Payers DatePayer CategoryPayerPolicy [id number] Care (unspecified)[facility] [place] CHO[place] [address].2.840.100920.1.13.385.2.7.9.022664.625.30676-37-8994Ojdvwli 1.2.840.310966.1.13.385.2.7.3.178[id number] 1.2.840.443820.1.13.239.2.7.3.867595.12855-94-0817DhoxtbzAHOJBVE [employer] [facility] xxxxxxxxxxxx 2016-Present [phone] [address] [place] [address]nptjszgvbkyt 1.2.840.250408.1.13.239.2.7.3.196433.29848-28-3264LoroxkbIPVOLZS [employer] [facility] [id number] 2016-Present [phone] [address] [place] [id number] 1.2.840.653978.1.13.239.2.7.3.635[id number] 1.2.840.823577.1.13.239.2.7.3.19600[id number] 1.2.840.340018.1.13.239.2.7.3.413829.315 2015MedicareMEDICARE MEDICARE PART A AND B xxxxxxxxxxx 2014-Present [phone] [place], [place] [address]tipmirneyrg 1.2.840.569274.1.13.239.2.7.3.396320.315 2015Medicare MEDICARE MEDICARE PART A AND B [id number] 2014-Present [phone] [address] [place], [id number] 1.2.840.245175.1.13.239.2.7.3.549696.315 2006Medicare1.2.840.109089.1.13.385.2.7.3.649085.315 2006Medicare [id number] 1.2.840.201700.1.13.239.2.7.3.057[id number] 2.0.1.683682.3.57[id number] 2.0.1.925062.3.579.[id number] 2.0.1.536229.3.57[id number] 2.0.1.488996.3.57[id number] 2.0.1.946406.3.57[id number] 2.0.1.473231.3.57[id number] 2.840.1.454438.3.579.[id number] 2.0.1.429020.3.57[id number] 2.0.1.748622.3.579.[id number] 2.0.1.763661.3.579.2.[id number] 2.16840.1.683336.3.579.[id number] 2.840.1.558653.3.579.[id number] 2.840.1.887349.3.579.2.8[id number] 2.840.1.212253.3.579.2.62620-29-0845Wvvymiy86994296 2.840.1.363018.3.57[id number] 2..1.680453.3.579.2.[id number] 2..1.475455.3.579.[id number] 2.0.1.933946.3.579.2.34417-02-1506Kmujebe39094307 2.0.1.780647.3.57[id number] 2.840.1.978508.3.579.2.97959-84-1976Hlrxoou14749929 2..1.140310.3.57[id number] 2.840.1.771088.3.579.2.69698-10-3970Eogmfah70769439 2.0.1.284658.3.57[id number] 2.840.1.427586.3.579.[id number] 2.840.1.485000.3.579.2.61912-70-0420Dnythza28638444 2.840.1.604938.3.579.2.84519-12-2300Aygzjpl630193940 2..840.1.252216.3.579.[id number] 2..840.1.652438.3.579.2.903 Social History DateTypeDetailFacilityStart: 06-14-2019 End: 06-36-6451Tvhuzax smoking status NHISNever smokerE[place] History of tobacco useChews TobaccoAultman Hospital: 06-14-2019 End: 54-87-8795Aczihev intakeNoAultman Hospital: 81-99-4904Yctrtor Commentcouple times/yearAultman Hospital: 85-89-7692Uge Assigned At BirthNot on fileAultman Hospital: 09-28-2019 End: 62-14-0597Acnbras intakeCurrent non-drinker of alcohol (finding)[facility]: 04-11-2020 End: 60-56-5620Ucqgqor use and exposureFormer userAultman Hospital: 10-31-2020 End: 38-50-4432Rkgsryz SDOH Vtwvbceuc9BxwpmAultman Hospital: 10-31-2020 End: 23-38-4787Qyskmxs SDOH Food Iepkv7CsstnAultman Hospital: 10-31-2020 End: 53-13-7242Vofnyig SDOH Transport Dwe8KkpzaAultman Hospital: 12-05-2022 End: 86-56-1699Woqgesbu to SARS-CoV-2 (event)Not sureAultman Hospital: 22-61-2520Lrqhvbs SDOH Alcohol Std Ssedsf9MLU [facility]: 11-21-2023 End: 52-99-5008Lufqhzk of Social functionBON ACCESS HOSPITAL DAYTONHow often to you have a drink containing alcohol?NeverBON [facility]ESS HOSPITAL DAYTONHow many standard drinks containing alcohol do you have on a typical day?Patient does not drinkBON QuinticHow hard is it for you to pay for the very basics like food, housing, medical care, and heatingNot very hardBON JOSE Playtabase(I/We) worried whether (my/our) food would run out before (I/we) got money to buy more.Never trueBON JOSE QlikaGayathri ChoisrAt any time in the past 12 months, were you homeless or living in mcfp [including now]?NoBON JOSE WolfGIS [facility] CENTERTobacco smoking status NHISTobacco smoking consumption unknown [facility]Start: 36-24-8690Jfdcrzk use and exposureUser of smokeless tobacco [facility]Start: 03-27-2024 End: 10-93-7431Eaeefaw intakeEx-drinker (finding)[facility]Start: 03-27-2024 Alcohol Commentdid drank occassionally in pastOhioHealthStart: 64-59-2869Bhn assigned at birthMalUnited States Air Force [facility] [employer] [facility] HospitalStart: 22-84-1401Ewmadi identity Identifies as male gender (finding)Alexus SportID [facility] HospitalStart: 07-29-2024 Sexual orientationHeterosexual (finding)Alexus SportID [facility] HospitalStart: 75-89-9723PprAyzl (finding)Alexus LocoMobiNEGATED: Highlighted row Start: NINFHistory of tobacco usePassive smokerDignity Health [facility] LocoMobi Medical Equipment Procedure CodeEquipment CodeEquipment Original TextEquipment IdentifierDates1 each by In Vitro route 4 times daily As needed.[id number]: 24-41-7642Hxh as directed with insulin pen needles, up to 5x/[id number]: 03-06-2019 End: 38-10-3713Npx as directed to test up to 4 times [id number]: 03-06-2019 End: each by In Vitro route 3 times daily As needed. Please dispense 3 boxes of 100.780469831Ppfpk: each by Does not apply route 4 times daily Use four times daily with insulin.[id number]: box by Does not apply route 3 times [id number]: each by In Vitro route 3 times daily As needed. Please dispense 3 boxes of 100.2570414989Ivivh: each by In Vitro route 3 times daily As needed. Please dispense 3 boxes of 100.9361537000Nbuft: each by In Vitro route 3 times daily As needed. Please dispense 3 boxes of 100.1119372276Icpjg: each by In Vitro route 3 times daily As needed. Please dispense 3 boxes of 100. [id number]: 87-56-0808Ljc Cath 62cm 2cuff Curl Peritoneal - [id number]_impStart: 13-80-1895Ulx 14.5fr 28cm Cath Std Hemodialysis Glidepath - [id number]_ovdVcwjy: 30-34-5815Hfzct 2.50 X 28 Synergy Xd Mr - [id number]_eceUofzb: 71-37-5425Gpdjf 2.75 X 08 Synergy Xd Mr - [id number]_zkvEzjfr: 07-56-8367Hapgk 4.00 X 28 Synergy Megatron Mr - [id number]_iwlLmkco: each by In Vitro route 3 times daily As needed. Please dispense 3 boxes of 100.7938990067Louho: 48-93-0999Xbldp Coronary Rl [place] Rx 3.5x30 Mm Zotarolimus Elut - [id number] ()[id number]()410316(10)[id number], 3960581_imp FDAStart: 10-81-6086Onfqu Coronary Rl [place] Rx 2x30 Mm Zotarolimus Elut - [id number] ()[id number](17)649667(10)[id number], 3960594_imp FDAStart: 27-96-4196Duusd Coronary W[place]rop Stillmore Rx 2.5x26 Mm Zotarolimus Elut - [id number]()[id number](17)330919(10)[id number], 3960600_imp FDA Start: 28-75-5344Zifml Coronary W[place]rop Stillmore Rx 4x22 Mm Zotarolimus Elut - [id number]()[id number](17)587282(10)[id number], 3960618_imp FDA Start: 51-85-0315Vmfyq Coronary Winthrop Stillmore Rx 4x18 Mm Zotarolimus Elute - [id number]()[id number](17)506136(10)[id number], 3960642_imp FDA Start: 08-90-6109Ohp Catheter Pump Insertion Intracardiac Impella Cp - [id number]()[id number](10)[id number], 3960480_[facility] FDAStart: each by In Vitro route 3 times daily As needed. Please dispense 3 boxes of 100. [id number]: box by Does not apply route 3 times [id number] Start: 29-84-5436Lsfpczi Perclose Prostyle - [id number]_xnaXegnn: 09-26-2025 Goals DatePatient GoalDesired Activity/StatePersonal health goalComment [...] intake. [facility]; focus on improving diet/carbohydrate controlled. Barriers: lack of motivation and stress Plan for overcoming my barriers: Get support from my and kids. Confidence: 04/24 Anticipated Goal Completion Date: 62182Kdmxzsh on above:I will follow Diabetic diet more [...] Notes 11-20-2019 to 09-27-2025 Note Date & UgfeJtvxKduneviw22-84-9288 NoteDate of admission: 09/19/2025 Admission diagnosis: Hyponatremia [...] on insulin pump. History of Present Illness: oLrenzo Amato is a 55 y.o. year old male with hx of anemia, CAD, depression, diabetes mellitus, GERD, dyslipidemia, hypertension, MS, morbid obesity, NABOR, presented to [facility] on 09/19/2025 with abdominal pain and concern for cellulitis by nephrology. Patient reports bilateral flank/low abdomen pain. Denies CP, SOB, Nausea or vomiting. Reports fatigue. Patient had hypoglycemic event this AM with BG of 36. His insulin pump was held at that time. DM type: 2, diagnosed in approx 2003. Home regimen: (managed by Dr. Nowak, [employer] KAMINSKI) Medtronic insulin pump with smartguard [...] in place MS (multiple sclerosis) Myocardial infarction ([facility]) 09/2006 NSTEMI (non-ST elevated myocardial infarction) ([facility]) 02/13/2025 ali / impella/pci / - [facility] Obesity NABOR (obstructive sleep apnea) wears CPAP Proteinuria Rash Stage 5 chronic kidney disease (HCC) not on dialysis...MANAGER BANQUET: Dr. Gracie Miller Venous embolism lungs and legs Vitamin D deficiency Past Surgical History: Procedure Laterality Date APPENDECTOMY CARDIAC CATHETERIZATION N/A 06/21/2024 Procedure: Coronary Angiogram; Surgeon: Melba Singh MD; Location: [facility] MARKETING UNDERWRITER; Service: Cardiovascular CARDIAC CATHETERIZATION N/A 06/21/2024 Procedure: Angioplasy w/Stent- Coronary; Surgeon: Melba Singh MD; Location: [facility] MARKETING UNDERWRITER; Service: Cardiovascular CARDIAC CATHETERIZATION N/A 06/21/2024 Procedure: Angioplasty - Intravascular Lithotripsy - Coronary; Surgeon: Melba Singh MD; Location: [employer] UNDERWRITER; Service: Cardiovascular CARDIAC CATHETERIZATION N/A 09/21/2025 Procedure: Left and Right Heart Cath; Surgeon: Warren Jean MD; Location: [facility] MARKETING UNDERWRITER; Service: Cardiovascular; Laterality: N/A; Please note: RUE fistula CARDIAC CATHETERIZATION N/A 09/21/2025 Procedure: Coronary Angiogram; Surgeon: Warren Jean MD; Location: [facility] MARKETING UNDERWRITER; Service: Cardiovascular; Laterality: N/A; COLONOSCOPY last was [...] IVC FILTER PLACEMENT 2012 for Blood clots [place] L HRT CATH W/NJX L VENTRICULOGRAPHY IMG S&I N/A 06/21/2024 Procedure: Left Heart Cath; Surgeon: Melba Singh MD; Location: [employer] UNDERWRITER; Service: Cardiovascular [place] LAPS INSERTION TUNNELED INTRAPERITONEAL CATHETER N/A 05/19/2024 PD cath, [facility].....Dr. Brian Arevalo TATTOO TEETH EXTRACTION TRANSFUSION BLOOD PRODUCT VASECTOMY Social History[1] Family History Problem Relation Age of Onset Uterine cancer Mother Heart disease Father Diabetes Maternal Aunt Rheum arthritis Brother Coronary artery disease Brother Diabetes type I [facility] MEDS: Current Medications[2] ALLERGIES: Allergies[3] Review of Systems: As per subjective. Physical Exam: Vitals: BP (!) 92/56 (more content not included)...[facility] 09-26-2025 NoteArterial Catheter Insertion Procedure Note Patient Name: Lorenzo Amato Admit Date: [id number] MR #: [id number] : 1970 Sedation Plan: No Sedation [place] Protocol: 1. Pre-procedure verification: - Correct patient, [...] None AUTHENTICATED BY JOSE WELCH ON 09/26/2025 17:07:53[facility] 09-26-2025 NoteProcedure Laterality Anesthesia Transcatheter Aortic [...] complexity,Blake Ríos MD was utilized as my surgery assistant Recommendations: Continue medical therapy Aggressive HD for [...] PM AUTHENTICATED BY MELBA SINGH, ON 09/26/2025 14:14:[address] [place] [address] 09-26-2025 NoteNEPHROLOGY PROGRESS NOTE [facility] Patient Name: Lorenzo Amato Admit Date: [id number] MR #: [id number] : 1970 Perpetual Assessment: Lorenzo Amato is [...] -Continue to hold Entresto, metoprolol for now -[facility] in January 2025 showed severe multivessel [...] AV fistula with t (more content not included)...[facility] 09-26-2025 NoteHMS PROGRESS NOTE Patient name: Lorenzo Amato Date of : 1970 Assessment and plan Lorenzo Amato is a 54 y.o. male patient of Lion Carlson MD with history of anemia, CAD, depression, diabetes mellitus, GERD, dyslipidemia, hypertension, MS, morbid obesity, NABOR, presented to [facility] on 09/19/2025 with abdominal pain and [...] affect AUTHENTICATED BY JEANE NAZARIO ON 09/26/2025 09:51:21[facility] 09-26-2025 NoteDate of admission: 09/19/2025 Admission diagnosis: Hyponatremia [E87.1] Anemia of chronic disease [D63.8] ESRD (end stage renal disease) (HCC) [N18.6] Abdominal wall cellulitis [L03.311] Abdominal pain, unspecified abdominal location [R10.9] No admission procedures for hospital encounter. Referring Provider: Gracie Miller MD Attending provider: [facility], Generic Primary Care Provider: Lion Carlson MD Chief Complaint/Reason for Consult: Hyperglycemia/DM management on insulin pump. History of Present Illness: Lorenzo Amato is a 55 y.o. year old male with hx of anemia, CAD, depression, diabetes mellitus, GERD, dyslipidemia, hypertension, MS, morbid obesity, NABOR, presented to [facility] on 09/19/2025 with abdominal pain and concern for cellulitis by nephrology. Patient reports bilateral flank/low abdomen pain. Denies CP, SOB, Nausea or vomiting. Reports fatigue. Patient had hypoglycemic event this AM with BG of 36. His insulin pump was held at that time. DM type: 2, diagnosed in approx 2003. Home regimen: (managed by Dr. Nowak, [facility]) Medtronic insulin pump with [email or web address] Settings: Basal rates: 0000: 14 u/hr. Sensitivity: [...] (HCC) 02/13/2025 ali / impella/pci / - [facility] Obesity NABOR (obstructive sleep apnea) wears CPAP Proteinuria Rash Stage 5 chronic kidney disease (HCC) not on dialysis...MANAGER BANQUET: Dr. Gracie Miller Venous embolism lungs and legs Vitamin D deficiency Past Surgical History: Procedure Laterality Date APPENDECTOMY CARDIAC CATHETERIZATION N/A 06/21/2024 Procedure: Coronary Angiogram; Surgeon: Melba Singh MD; Location: [facility] UNDERWRITER; Service: Cardiovascular CARDIAC CATHETERIZATION N/A 06/21/2024 Procedure: Angioplasy w/Stent- Coronary; Surgeon: Melba Singh MD; Location: [facility] MARKETING UNDERWRITER; Service: Cardiovascular CARDIAC CATHETERIZATION N/A 06/21/2024 Procedure: Angioplasty - Intravascular Lithotripsy - Coronary; Surgeon: Melba Singh MD; Location: [employer] MARKETING UNDERWRITER; Service: Cardiovascular CARDIAC CATHETERIZATION N/A 09/21/2025 Procedure: Left and Right Heart Cath; Surgeon: Warren Jean MD; Location: [employer] MARKETING UNDERWRITER; Service: Cardiovascular; Laterality: N/A; Please note: RUE fistula CARDIAC CATHETERIZATION N/A 09/21/2025 Procedure: Coronary Angiogram; Surgeon: Warren Jean MD; Location: [employer] MARKETING UNDERWRITER; Service: Cardiovascular; Laterality: N/A; COLONOSCOPY last was 2014, polyps, done in [place], 2 procdures CORONARY ANGIOPLASTY WITH STENT PLACEMENT has had 2 surgeries, 2019 most recent CV IR INTERVENTIONAL RADIOLOGY N/A 06/16/2024 Procedure: VR Dialysis Cath Insert Tunnel; Surgeon: Dariusz Modi MD; Location: IR LAB; Service: Interventional Radiology; Laterality: N/A; ESOPHAGOGASTRODUODENOSCOPY last was done in [place], gastic tumor, INSULIN PUMP AND GLUCOSE SENSOR IR IVC FILTER PLACEMENT 2012 for Blood clots [place] L HRT CATH W/NJX L VENTRICULOGRAPHY IMG S&I N/A 06/21/2024 Procedure: Left Heart Cath; Surgeon: Melba Singh MD; Location: [facility] MARKETING UNDERWRITER; Service: Cardiovascular [place] LAPS INSERTION TUNNELED INTRAPERITONEAL CATHETER N/A 05/19/2024 PD cath, [facility].....Dr. Brian Arevalo TATTOO TEETH EXTRACTION TRANSFUSION BLOOD PRODUCT VASECTOMY Social History[1] Family History Problem Relation Age of Onset Uterine cancer Mother Heart disease Father Diabetes Maternal Aunt Rheum arthritis Brother Coronary artery disease Brother Diabetes type I [facility] MEDS: Current Medications[2] ALLERGIES: Allergies[3] Review of Systems: As per subjective. Physical Exam: Vitals: BP (!) 92/59 Pulse 96 Temp 97.4 degrees F (36 (more content not included)...[facility]11-12-2025 Note09/26/25 Lorenzo Amato Provider: Zee Miranda PA-C, Service: Cardiothoracic Surgery CPT: 87982 ASSESSMENT : 55-year-old male with significant past [...] need for emergency surgery, need for pacemaker, [place], stroke, or cardiac arrest/. Patient voiced understanding and agreed to proceed. Calcified sever aortic stenosis Acute on chronic HFrEF Severe muscogee CAD Myocardial infarction: 09/2006 & 02/13/25 S/P [...] 25 09/24/2025 AST 50 (more content not included)...[facility]11-11-2025 NoteNEPHROLOGY PROGRESS NOTE [facility] Patient Name: Lorenzo Amato Admit Date: [id number] MR #: [id number] : 1970 Perpetual Assessment: Lorenzo Amato is [...] -Continue to hold Entresto, metoprolol for now -[facility] in January 2025 showed severe multivessel [...] 09/25/25 12:41 PM: Laboratory (more content not included)...[facility]11-11-2025 NoteHMS PROGRESS NOTE Patient name: Lorenzo Amato Date of : 1970 Assessment and plan Lorenzo Amato is a 54 y.o. male patient of Lion Carlson MD with history of anemia, CAD, depression, diabetes mellitus, GERD, dyslipidemia, hypertension, MS, morbid obesity, NABOR, presented to [facility] on 09/19/2025 with abdominal pain and [...] affect AUTHENTICATED BY JEANE NAZARIO ON 09/25/2025 11:51:[address] [place] [address] 09-25-2025 NoteOHCOMM[facility] NOTE CARDIOVASCULAR [...] inferior. Prolonged QT 4 and 72 ms. [place] interval 222 ms.): 09/24/25 OBJECTIVES BP (!) [...] lower abdomen, left forearm. Jm Tellez, MSN, LATHE PULLER, PASSPORT SUPPORT ASSOCIATE Interventional Cardiology/Structural Heart Disease Team [facility] AUTHENTICATED BY JM TELLEZ, ON 09/25/2025 16:51:20[facility] 09-25-2025 History of Present illness Narrative* Jessy Byrne, ALEJANDRO - 09/25/2025 11:11 AM EST [facility] note-pt noted to have positive antibodies on type and screen completed 09/24/25. Spoke with Bailey in blood bank, who reports they have 2 units of PRBCs ready for tavr procedure tomorrow. documented in this [id number] NoteGeneral Cardiology Inpatient Follow-up Heart & Vascular [facility] 09/25/2025 Hali Harley CNP [facility] Patient: Lorenzo Amato Date of : 1970 (55 y.o.) PCP: Lion Carlson MD Primary teacher music: Cecy Assessment/Plan: CARDIOVASCULAR & METABOLIC PROBLEMS LFLG [...] control. His volume status is managed by wiring technician. He remains hypervolemic, but clinically improving on [...] dictation software was used Hali Harley, MSN, LATHE PULLER, SECURITY AND COMPLIANCE ANALYST-C, STEAM SHOVEL ENGINEER, ECG-BC General Cardiology [facility] [1] Current Facility-Administered Medications Medication Dose Route Frequency Provide (more content not included)...[facility]11-11-2025 NoteDate of admission: 09/19/2025 Admission diagnosis: Hyponatremia [E87.1] Anemia of chronic disease [D63.8] ESRD (end stage renal disease) (HCC) [N18.6] Abdominal wall cellulitis [L03.311] Abdominal pain, unspecified abdominal location [R10.9] No admission procedures for hospital encounter. Referring Provider: Gracie Miller MD Attending provider: [facility], Generic Primary Care Provider: Lion Carlson MD Chief Complaint/Reason for Consult: Hyperglycemia/DM management on insulin pump. History of Present Illness: Lorenzo Amato is a 55 y.o. year old male with hx of anemia, CAD, depression, diabetes mellitus, GERD, dyslipidemia, hypertension, MS, morbid obesity, NABOR, presented to [facility] on 09/19/2025 with abdominal pain and concern for cellulitis by nephrology. Patient reports bilateral flank/low abdomen pain. Denies CP, SOB, Nausea or vomiting. Reports fatigue. Patient had hypoglycemic event this AM with BG of 36. His insulin pump was held at that time. DM type: 2, diagnosed in approx 2003. Home regimen: (managed by Dr. Nowak, [employer] [facility]AM[facility]) Medtronic insulin pump with [email or web address] Settings: Basal rates: 0000: 14 u/hr. Sensitivity: [...] 5 chronic kidney disease (HCC) not on dialysis...MANAGER BANQUET: Dr. Gracie Miller Venous embolism lungs and legs Vitamin D deficiency Past Surgical History: Procedure Laterality Date APPENDECTOMY CARDIAC CATHETERIZATION N/A 06/21/2024 Procedure: Coronary Angiogram; Surgeon: Melba Singh MD; Location: [facility] MARKETING UNDERWRITER; Service: Cardiovascular CARDIAC CATHETERIZATION N/A 06/21/2024 Procedure: Angioplasy w/Stent- Coronary; Surgeon: Melba Singh MD; Location: [facility]BR[facility] MARKETING UNDERWRITER; Service: Cardiovascular CARDIAC CATHETERIZATION N/A 06/21/2024 Procedure: Angioplasty - Intravascular Lithotripsy - Coronary; Surgeon: Melba Singh MD; Location: HYBRID MARKETING UNDERWRITER; Service: Cardiovascular CARDIAC CATHETERIZATION N/A 09/21/2025 Procedure: Left and Right Heart Cath; Surgeon: Warren Jean MD; Location: HYBRID MARKETING UNDERWRITER; Service: Cardiovascular; Laterality: N/A; Please note: RUE fistula CARDIAC CATHETERIZATION N/A 09/21/2025 Procedure: Coronary Angiogram; Surgeon: Warren Jean MD; Location: [facility] MARKETING UNDERWRITER; Service: Cardiovascular; Laterality: N/A; COLONOSCOPY last was 2014, polyps, done in [place], 2 procdures CORONARY ANGIOPLASTY WITH STENT PLACEMENT has had 2 surgeries, 2019 most recent CV IR INTERVENTIONAL RADIOLOGY N/A 06/16/2024 Procedure: VR Dialysis Cath Insert Tunnel; Surgeon: Dariusz Modi MD; Location: IR LAB; Service: Interventional Radiology; Laterality: N/A; ESOPHAGOGASTRODUODENOSCOPY last was done in [place], gastic tumor, INSULIN PUMP AND GLUCOSE SENSOR IR IVC FILTER PLACEMENT 2012 for Blood clots [place] L HRT CATH W/NJX L VENTRICULOGRAPHY IMG S&I N/A 06/21/2024 Procedure: Left Heart Cath; Surgeon: Melba Singh MD; Location: HYBRID MARKETING UNDERWRITER; Service: Cardiovascular [place] LAPS INSERTION TUNNELED INTRAPERITONEAL CATHETER N/A 05/19/2024 PD cath, [facility].....Dr. Brian Arevalo TATTOO TEETH EXTRACTION TRANSFUSION BLOOD PRODUCT VASECTOMY Social History[1] Family History Problem Relation Age of Onset Uterine cancer Mother Heart disease Father Diabetes Maternal Aunt Rheum arthritis Brother Coronary artery disease Brother Diabetes type I Grandson [facility] MEDS: Current Medications[2] ALLERGIES: Allergies[3] Review of [...] kg/m ., Wt Readings (more content not included)...[facility]11-10-2025 NoteHMS PROGRESS NOTE Patient name: Lorenzo Amato Date of : 1970 Assessment and plan Lorenzo Amato is a 54 y.o. male patient of Lion Carlson MD with history of anemia, CAD, depression, diabetes mellitus, GERD, dyslipidemia, hypertension, MS, morbid obesity, NABOR, presented to [facility] on 09/19/2025 with abdominal pain and [...] affect AUTHENTICATED BY YURI REAL, ON 09/24/2025 16:07:24[facility] 09-24-2025 NoteNEPHROLOGY PROGRESS NOTE [facility] Patient Name: Lorenzo Amato Admit Date: [id number] MR #: [id number] : 1970 Perpetual Assessment: Lorenzo Amato is [...] -Continue to hold Entresto, metoprolol for now -[facility] in January 2025 showed severe multivessel [...] busPIRone 15 mg Oral (more content not included)...[facility]11-10-2025 NoteGeneral Cardiology Inpatient Follow-up Heart & Vascular [facility] 09/24/2025 Hali Harley, MARIA EUGENIA [facility] Patient: Lorenzo Amato Date of : 1970 (55 y.o.) PCP: Lion Carlson MD Primary teacher music: Cecy Assessment/Plan: CARDIOVASCULAR & METABOLIC PROBLEMS LFLG [...] dialysis. His volume status is managed by wiring technician. He remains hypervolemic. Blood pressures soft to [...] dictation software was used Hali Harley, MSN, LATHE PULLER, SECURITY AND COMPLIANCE ANALYST-C, STEAM SHOVEL ENGINEER, ECG-BC General Cardiology [facility] [1] Current Facility-Administered Medications Medication Dose Route Frequency Provider Last Rate Last Admin acetaminophen (TYLENOL) tablet 975 mg 975 mg Oral Q8H [place] (more content not included)...[facility]11-10-2025 NoteDate of admission: 09/19/2025 Admission diagnosis: Hyponatremia [E87.1] Anemia of chronic disease [D63.8] ESRD (end stage renal disease) (HCC) [N18.6] Abdominal wall cellulitis [L03.311] Abdominal pain, unspecified abdominal location [R10.9] No admission procedures for hospital encounter. Referring Provider: Gracie Miller MD Attending provider: [facility], Generic Primary Care Provider: Lion Carlson MD Chief Complaint/Reason for Consult: Hyperglycemia/DM management on insulin pump. History of Present Illness: Lorenzo Amato is a 55 y.o. year old male with hx of anemia, CAD, depression, diabetes mellitus, GERD, dyslipidemia, hypertension, MS, morbid obesity, NABOR, presented to [facility] on 09/19/2025 with abdominal pain and concern for cellulitis by nephrology. Patient reports bilateral flank/low abdomen pain. Denies CP, SOB, Nausea or vomiting. Reports fatigue. Patient had hypoglycemic event this AM with BG of 36. His insulin pump was held at that time. DM type: 2, diagnosed in approx 2003. Home regimen: (managed by Dr. Nowak, [employer] [place]) Medtronic insulin pump with [employer] Settings: Basal rates: 0000: 14 u/hr. Sensitivity: [...] 5 chronic kidney disease (HCC) not on dialysis...MANAGER BANQUET: Dr. Gracie Miller Venous embolism lungs and legs Vitamin D deficiency Past Surgical History: Procedure Laterality Date APPENDECTOMY CARDIAC CATHETERIZATION N/A 06/21/2024 Procedure: Coronary Angiogram; Surgeon: Melba Singh MD; Location: [employer]BR[employer] MARKETING UNDERWRITER; Service: Cardiovascular CARDIAC CATHETERIZATION N/A 06/21/2024 Procedure: Angioplasy w/Stent- Coronary; Surgeon: Melba Singh MD; Location: HYBRID MARKETING UNDERWRITER; Service: Cardiovascular CARDIAC CATHETERIZATION N/A 06/21/2024 Procedure: Angioplasty - Intravascular Lithotripsy - Coronary; Surgeon: Melba Singh MD; Location: HYBRID MARKETING UNDERWRITER; Service: Cardiovascular CARDIAC CATHETERIZATION N/A 09/21/2025 Procedure: Left and Right Heart Cath; Surgeon: Warren Jean MD; Location: [facility]BRID MARKETING UNDERWRITER; Service: Cardiovascular; Laterality: N/A; Please note: RUE fistula CARDIAC CATHETERIZATION N/A 09/21/2025 Procedure: Coronary Angiogram; Surgeon: Warren Jean MD; Location: [facility] MARKETING UNDERWRITER; Service: Cardiovascular; Laterality: N/A; COLONOSCOPY last was 2014, polyps, done in [place], 2 procdures CORONARY ANGIOPLASTY WITH STENT PLACEMENT has had 2 surgeries, 2019 most recent CV IR INTERVENTIONAL RADIOLOGY N/A 06/16/2024 Procedure: VR Dialysis Cath Insert Tunnel; Surgeon: Dariusz Modi MD; Location: IR LAB; Service: Interventional Radiology; Laterality: N/A; ESOPHAGOGASTRODUODENOSCOPY last was done in [place], gastic tumor, INSULIN PUMP AND GLUCOSE SENSOR IR IVC FILTER PLACEMENT 2012 for Blood clots [place] L HRT CATH W/NJX L VENTRICULOGRAPHY IMG S&I N/A 06/21/2024 Procedure: Left Heart Cath; Surgeon: Melba Singh MD; Location: HYBRID MARKETING UNDERWRITER; Service: Cardiovascular [place] LAPS INSERTION TUNNELED INTRAPERITONEAL CATHETER N/A 05/19/2024 PD cath, [facility].....Dr. Brian Arevalo TATTOPj TEETH EXTRACTION TRANSFUSION BLOOD PRODUCT VASECTOMY Social History[1] Family History Problem Relation Age of Onset Uterine cancer Mother Heart disease Father Diabetes Maternal Aunt Rheum arthritis Brother Coronary artery disease Brother Diabetes type I Grandson [facility] MEDS: Current Medications[2] ALLERGIES: Allergies[3] Review of [...] kg (305 lb) Vit (more content not included)...[facility]11-09-2025 NoteHMS PROGRESS NOTE Patient name: Lorenzo Amato Date of : 1970 Assessment and plan Lorenzo Amato is a 54 y.o. 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 His volume status is managed by wiring technician. He remains hypervolemic. blood pressures soft to [...] dictation software was used Tomasa Toro MSN, LATHE PULLER, ANP-C [1] Current Facility-Administered Medications Medication Dose [...] (CYMBALTA) DR capsule 6 (more content not included)...[facility]11-09-2025 NoteNEPHROLOGY PROGRESS NOTE [facility] Patient Name: Lorenzo Amato Admit Date: [id number] MR #: [id number] : 1970 Perpetual Assessment: Lorenzo Amato is [...] decompensated heart failure from severe aortic stenosis. [facility] 09/22- elevated left and right heart filling [...] -Continue to hold Entresto, metoprolol for now -[facility] in January 2025 showed severe multivessel [...] pushes to minimize fluid intake -Will give GNEARO Subjective: No events overnight. Long discussion with [...] 129.4 kg (285 l (more content not included)...[facility] 09-23-2025 NoteDate of admission: 09/19/2025 Admission diagnosis: Hyponatremia [E87.1] Anemia of chronic disease [D63.8] ESRD (end stage renal disease) (HCC) [N18.6] Abdominal wall cellulitis [L03.311] Abdominal pain, unspecified abdominal location [R10.9] No admission procedures for hospital encounter. Referring Provider: Gracie Miller MD Attending provider: [facility], Generic Primary Care Provider: Lion Carlson MD Chief Complaint/Reason for Consult: Hyperglycemia/DM management on insulin pump. History of Present Illness: Lorenzo Amato is a 55 y.o. year old male with hx of anemia, CAD, depression, diabetes mellitus, GERD, dyslipidemia, hypertension, MS, morbid obesity, NABOR, presented to [facility] on 09/19/2025 with abdominal pain and concern for cellulitis by nephrology. Patient reports bilateral flank/low abdomen pain. Denies CP, SOB, Nausea or vomiting. Reports fatigue. Patient had hypoglycemic event this AM with BG of 36. His insulin pump was held at that time. DM type: 2, diagnosed in approx 2003. Home regimen: (managed by Dr. Nowak, [employer] [place]) Medtronic insulin pump with [employer] Settings: Basal rates: 0000: 14 u/hr. Sensitivity: [...] 5 chronic kidney disease (HCC) not on dialysis...MANAGER BANQUET: Dr. Graice Miller Venous embolism lungs and legs Vitamin D deficiency Past Surgical History: Procedure Laterality Date APPENDECTOMY CARDIAC CATHETERIZATION N/A 06/21/2024 Procedure: Coronary Angiogram; Surgeon: Melba Singh MD; Location: HYBRID MARKETING UNDERWRITER; Service: Cardiovascular CARDIAC CATHETERIZATION N/A 06/21/2024 Procedure: Angioplasy w/Stent- Coronary; Surgeon: Melba Singh MD; Location: [facility] MARKETING UNDERWRITER; Service: Cardiovascular CARDIAC CATHETERIZATION N/A 06/21/2024 Procedure: Angioplasty - Intravascular Lithotripsy - Coronary; Surgeon: Melba Singh MD; Location: [facility] MARKETING UNDERWRITER; Service: Cardiovascular COLONOSCOPY last was 2014, polyps, done in [place], 2 procdures CORONARY ANGIOPLASTY WITH STENT PLACEMENT has had 2 surgeries, 2019 most recent CV IR INTERVENTIONAL RADIOLOGY N/A 06/16/2024 Procedure: VR Dialysis Cath Insert Tunnel; Surgeon: Dariusz Modi MD; Location: IR LAB; Service: Interventional Radiology; Laterality: N/A; ESOPHAGOGASTRODUODENOSCOPY last was done in [place], gastic tumor, INSULIN PUMP AND GLUCOSE SENSOR IR IVC FILTER PLACEMENT 2012 for Blood clots [place] L HRT CATH W/NJX L VENTRICULOGRAPHY IMG S&I N/A 06/21/2024 Procedure: Left Heart Cath; Surgeon: Melba Singh MD; Location: HYBRID MARKETING UNDERWRITER; Service: Cardiovascular [place] LAPS INSERTION TUNNELED INTRAPERITONEAL CATHETER N/A 05/19/2024 PD cath, ESRF.....Dr. Brian Nikole TATTOO TEETH EXTRACTION TRANSFUSION BLOOD PRODUCT VASECTOMY Social History[1] Family History Problem Relation Age of Onset Uterine cancer Mother Heart disease Father Diabetes Maternal Aunt Rheum arthritis Brother Coronary artery disease Brother Diabetes type I [facility] MEDS: Current Medications[2] ALLERGIES: Allergies[3] Review of [...] 09/23/2025 BUN 55 (H) (more content not included)...[facility]11-08-2025 Note NEPHROLOGY PROGRESS NOTE [facility] Patient Name: Lorenzo Amato Admit Date: [id number] MR #: [id number] : 1970 Perpetual Assessment: Lorenzo Amato is [...] -Continue to hold Entresto, metoprolol for now -[facility] in January 2025 showed severe multivessel [...] oriented x 3 Ski (more content not included)...[facility]11-08-2025 NoteDate of admission: 09/19/2025 Admission diagnosis: Hyponatremia [E87.1] Anemia of chronic disease [D63.8] ESRD (end stage renal disease) (HCC) [N18.6] Abdominal wall cellulitis [L03.311] Abdominal pain, unspecified abdominal location [R10.9] No admission procedures for hospital encounter. Referring Provider: Gracie Miller MD Attending provider: [facility], Generic Primary Care Provider: Lion Carlson MD Chief Complaint/Reason for Consult: Hyperglycemia/DM management on insulin pump. History of Present Illness: Lorenzo Amato is a 55 y.o. year old male with hx of anemia, CAD, depression, diabetes mellitus, GERD, dyslipidemia, hypertension, MS, morbid obesity, NABOR, presented to [facility] on 09/19/2025 with abdominal pain and concern for cellulitis by nephrology. Patient reports bilateral flank/low abdomen pain. Denies CP, SOB, Nausea or vomiting. Reports fatigue. Patient had hypoglycemic event this AM with BG of 36. His insulin pump was held at that time. DM type: 2, diagnosed in approx 2003. Home regimen: (managed by Dr. Nowak, [employer] [place]) Medtronic insulin pump with [email or web address] Settings: Basal rates: 0000: 14 u/hr. Sensitivity: [...] 5 chronic kidney disease (HCC) not on dialysis...MANAGER BANQUET: Dr. Gracie Miller Venous embolism lungs and legs Vitamin D deficiency Past Surgical History: Procedure Laterality Date APPENDECTOMY CARDIAC CATHETERIZATION N/A 06/21/2024 Procedure: Coronary Angiogram; Surgeon: Melba Singh MD; Location: HYBRID MARKETING UNDERWRITER; Service: Cardiovascular CARDIAC CATHETERIZATION N/A 06/21/2024 Procedure: Angioplasy w/Stent- Coronary; Surgeon: Melba Singh MD; Location: HYBRID MARKETING UNDERWRITER; Service: Cardiovascular CARDIAC CATHETERIZATION N/A 06/21/2024 Procedure: Angioplasty - Intravascular Lithotripsy - Coronary; Surgeon: Melba Singh MD; Location: HYBRID MARKETING UNDERWRITER; Service: Cardiovascular COLONOSCOPY last was 2014, polyps, done in [place], 2 procdures CORONARY ANGIOPLASTY WITH STENT PLACEMENT has had 2 surgeries, 2019 most recent CV IR INTERVENTIONAL RADIOLOGY N/A 06/16/2024 Procedure: VR Dialysis Cath Insert Tunnel; Surgeon: Dariusz Modi MD; Location: IR LAB; Service: Interventional Radiology; Laterality: N/A; ESOPHAGOGASTRODUODENOSCOPY last was done in [place], gastic tumor, INSULIN PUMP AND GLUCOSE SENSOR IR IVC FILTER PLACEMENT 2012 for Blood clots [place] L HRT CATH W/NJX L VENTRICULOGRAPHY IMG S&I N/A 06/21/2024 Procedure: Left Heart Cath; Surgeon: Melba Singh MD; Location: HYBRID MARKETING UNDERWRITER; Service: Cardiovascular [place] LAPS INSERTION TUNNELED INTRAPERITONEAL CATHETER N/A 05/19/2024 PD cath, ESR[facility].....Dr. Brian Arevalo TATTOO TEETH EXTRACTION TRANSFUSION BLOOD PRODUCT VASECTOMY Social History[1] Family History Problem Relation Age of Onset Uterine cancer Mother Heart disease Father Diabetes Maternal Aunt Rheum arthritis Brother Coronary artery disease Brother Diabetes [facility] I [facility] MEDS: Current Medications[2] ALLERGIES: Allergies[3] Review of [...] 09/22/2025 BUN 57 (H) (more content not included)...[facility]11-08-2025 NoteHMS PROGRESS NOTE Patient name: Lorenzo Amato Date of : 1970 Assessment and plan Lorenzo Amato is a 54 y.o. male patient of Lino Carlson MD with history of anemia, CAD, depression, diabetes mellitus, GERD, dyslipidemia, hypertension, MS, morbid obesity, NABOR, presented to [facility] on 09/19/2025 with abdominal pain and [...] affect AUTHENTICATED BY YURI REAL, ON 09/22/2025 16:32:04[facility] 09-21-2025 NoteStructural Heart Progress Note Cath [...] MRCP, FACC Interventional Cardiology/Structural Heart Disease [facility] AUTHENTICATED BY MELBA SINGH, ON 09/21/2025 17:18:15[facility] 09-21-2025 NoteHMS PROGRESS NOTE Patient name: Lorenzo Amato Date of : 1970 Assessment and plan Lorenzo Amato is a 54 y.o. male patient of Lion Carlson MD with history of anemia, CAD, depression, diabetes mellitus, GERD, dyslipidemia, hypertension, MS, morbid obesity, NABOR, presented to [facility] on 09/19/2025 with abdominal pain and [...] affect AUTHENTICATED BY YURI REAL, ON 09/21/2025 15:12:[address] [place] [address] 09-21-2025 NoteNEPHROLOGY PROGRESS NOTE [facility] Patient Name: Lorenzo Amato Admit Date: [id number] MR #: [id number] : 1970 Perpetual Assessment: Lorenzo Amato is [...] found to have moderate to severe AAS. [facility] planned for today. TAVR depending upon [...] g/dL 8.2* 8.7* 8.9* (more content not included)...[facility] 09-21-2025 [facility] GENER[facility] C[facility] PROGRESS NOTE Name: Loernzo Amato Age: 55 y.o. 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 His volume status is managed by wiring technician. He is currently hypervolemic. Resting rate is [...] 2 times da (more content not included)... [facility]11-07-2025 NoteDate of admission: 09/19/2025 Admission diagnosis: Hyponatremia [E87.1] Anemia of chronic disease [D63.8] ESRD (end stage renal disease) (HCC) [N18.6] Abdominal wall cellulitis [L03.311] Abdominal pain, unspecified abdominal location [R10.9] No admission procedures for hospital encounter. Referring Provider: Gracie Miller MD Attending provider: [facility] Primary Care Provider: Lion Carlson MD Chief Complaint/Reason for Consult: Hyperglycemia/DM management on insulin pump. History of Present Illness: Lorenzo Amato is a 55 y.o. year old male with hx of anemia, CAD, depression, diabetes mellitus, GERD, dyslipidemia, hypertension, MS, morbid obesity, NABOR, presented to [facility] on 09/19/2025 with abdominal pain and concern for cellulitis by nephrology. Patient reports bilateral flank/low abdomen pain. Denies CP, SOB, Nausea or vomiting. Reports fatigue. Patient had hypoglycemic event this AM with BG of 36. His insulin pump was held at that time. DM type: 2, diagnosed in approx 2003. Home regimen: (managed by Dr. Nowak, [employer] [place]) Medtronic insulin pump with [email or web address] Settings: Basal rates: 0000: 14 u/hr. Sensitivity: [...] 5 chronic kidney disease (HCC) not on dialysis...MANAGER BANQUET: Dr. Gracie Miller Venous embolism lungs and legs Vitamin D deficiency Past Surgical History: Procedure Laterality Date APPENDECTOMY CARDIAC CATHETERIZATION N/A 06/21/2024 Procedure: Coronary Angiogram; Surgeon: Melba Singh MD; Location: [facility] MARKETING UNDERWRITER; Service: Cardiovascular CARDIAC CATHETERIZATION N/A 06/21/2024 Procedure: Angioplasy w/Stent- Coronary; Surgeon: Melba Singh MD; Location: [facility] HYBRID MARKETING UNDERWRITER; Service: Cardiovascular CARDIAC CATHETERIZATION N/A 06/21/2024 Procedure: Angioplasty - Intravascular Lithotripsy - Coronary; Surgeon: Melba Singh MD; Location: HYBRID MARKETING UNDERWRITER; Service: Cardiovascular COLONOSCOPY last was 2014, polyps, done in [place], 2 procdures CORONARY ANGIOPLASTY WITH STENT PLACEMENT has had 2 surgeries, 2019 most recent CV IR INTERVENTIONAL RADIOLOGY N/A 06/16/2024 Procedure: VR Dialysis Cath Insert Tunnel; Surgeon: Dariusz Modi MD; Location: IR LAB; Service: Interventional Radiology; Laterality: N/A; ESOPHAGOGASTRODUODENOSCOPY last was done in [place], gastic tumor, INSULIN PUMP AND GLUCOSE SENSOR IR IVC FILTER PLACEMENT 2012 for Blood clots [place] L HRT CATH W/NJX L VENTRICULOGRAPHY IMG S&I N/A 06/21/2024 Procedure: Left Heart Cath; Surgeon: Melba Singh MD; Location: HYBRID MARKETING UNDERWRITER; Service: Cardiovascular [place] LAPS INSERTION TUNNELED INTRAPERITONEAL CATHETER N/A 05/19/2024 PD cath, [facility].....Dr. Brian Arevalo TATTOO TEETH EXTRACTION TRANSFUSION BLOOD PRODUCT VASECTOMY Social History[1] Family History Problem Relation Age of Onset Uterine cancer Mother Heart disease Father Diabetes Maternal Aunt Rheum arthritis Brother Coronary artery disease Brother Diabetes type I Grandson [facility] MEDS: Current Medications[2] ALLERGIES: Allergies[3] Review of [...] 61 (H) 09/21/2025 CREAT (more content not included)...[facility]11-06-2025 NoteHMS PROGRESS NOTE Patient name: Lorenzo Amato Date of : 1970 Assessment and plan Lorenzo Amato is a 54 y.o. male patient of Lion Carlson MD with history of anemia, CAD, depression, diabetes mellitus, GERD, dyslipidemia, hypertension, MS, morbid obesity, NABOR, presented to [facility] on 09/19/2025 with abdominal pain and [...] with PD for now adjusted by nephrology [facility] in January 2025 showed severe multivessel [...] affect AUTHENTICATED BY YURI REAL, ON 09/20/2025 19:41:04[facility] 09-20-2025 NoteNEPHROLOGY PROGRESS NOTE [facility] Patient Name: Lorenzo Amato Admit Date: [id number] MR #: [id number] : 1970 Perpetual Assessment: Lorenzo Amato is [...] 3. Hypotension Hold Entresto, metoprolol for now [facility] in January 2025 showed severe multivessel [...] created by dictation via voice recognition software ([employer]). The completed note was reviewed for accuracy. However, there may be subtle errors that were not found during the review. If such errors are discovered, or if there are any questions or concerns regarding the recommendations/plan of care, please contact the author of the note prior to undertaking the recommendations/plan of care. AUTHENTICATED BY DELROY FLETCHER ON 09/20/2025 12:57:12[facility]11-06-2025 [facility] TRAUMA and [facility] DAILY PROGRESS NOTE ASSESSMENT [...] full AUTHENTICATED BY LINO OLIVARES, ON 09/20/2025 09:48:12[facility] 09-19-2025 NotePLEASANT UNITY TRAUMA & [facility] SURGICAL HISTORY & PHYSICAL/CONSULTATION [...] disease on peritoneal dialysis who presented to [facility] after his wiring technician was concerned for abdominal wall cellulitis. CT [...] 5 chronic kidney disease (HCC) not on dialysis...MANAGER BANQUET: Dr. Gracie Miller Venous embolism lungs and legs Vitamin D deficiency Past Surgical History: Procedure Laterality Date APPENDECTOMY CARDIAC CATHETERIZATION N/A 06/21/2024 Procedure: Coronary Angiogram; Surgeon: Melba Singh MD; Location: HYBRID MARKETING UNDERWRITER; Service: Cardiovascular CARDIAC CATHETERIZATION N/A 06/21/2024 Procedure: Angioplasy w/Stent- Coronary; Surgeon: Melba Singh MD; Location: HYBRID MARKETING UNDERWRITER; Service: Cardiovascular CARDIAC CATHETERIZATION N/A 06/21/2024 Procedure: Angioplasty - Intravascular Lithotripsy - Coronary; Surgeon: Melba Singh MD; Location: HYBRID MARKETING UNDERWRITER; Service: Cardiovascular COLONOSCOPY last was 2014, polyps, done in [place], 2 procdures CORONARY ANGIOPLASTY WITH STENT PLACEMENT has had 2 surgeries, 2019 most recent CV IR INTERVENTIONAL RADIOLOGY N/A 06/16/2024 Procedure: VR Dialysis Cath Insert Tunnel; Surgeon: Dariusz Modi MD; Location: IR LAB; Service: Interventional Radiology; Laterality: N/A; ESOPHAGOGASTRODUODENOSCOPY last was done in [place], gastic tumor, INSULIN PUMP AND GLUCOSE SENSOR IR IVC FILTER PLACEMENT 2012 for Blood clots [place] L HRT CATH W/NJX L VENTRICULOGRAPHY IMG S&I N/A 06/21/2024 Procedure: Left Heart Cath; Surgeon: Melba Singh MD; Location: HYBRID MARKETING UNDERWRITER; Service: Cardiovascular [place] LAPS INSERTION TUNNELED INTRAPERITONEAL CATHETER N/A 05/19/2024 [...] of clotting or bleedi (more content not included)...[facility] 09-19-2025 NoteHMS HISTORY AND PHYSICAL -- [facility] Patient name: Lorenzo Amato Date of : 1970 Admission date: 09/19/2025 Physicians: Lion Carlson MD (Family); Gracie Miller MD (Referring) Lorenzo Amato is a 54 y.o. male patient of Lion Carlson MD with history of anemia, CAD, depression, diabetes mellitus, GERD, dyslipidemia, hypertension, MS, morbid obesity, NABOR, presented to [facility] on 09/19/2025 with abdominal pain and [...] 5 chronic kidney disease (HCC) not on dialysis...MANAGER BANQUET: Dr. Gracie Miller Venous embolism lungs and legs Vitamin D deficiency Past surgical history Past Surgical History: Procedure Laterality Date APPENDECTOMY CARDIAC CATHETERIZATION N/A 06/21/2024 Procedure: Coronary Angiogram; Surgeon: Melba Singh MD; Location: HYBRID MARKETING UNDERWRITER; Service: Cardiovascular CARDIAC CATHETERIZATION N/A 06/21/2024 Procedure: Angioplasy w/Stent- Coronary; Surgeon: Melba Singh MD; Location: HYBRID MARKETING UNDERWRITER; Service: Cardiovascular CARDIAC CATHETERIZATION N/A 06/21/2024 Procedure: Angioplasty - Intravascular Lithotripsy - Coronary; Surgeon: Melba Singh MD; Location: HYBRID MARKETING UNDERWRITER; Service: Cardiovascular COLONOSCOPY last was 2014, polyps, [...] IVC FILTER PLACEMENT 2012 for Blood clots [place] L HRT CATH W/NJX L VENTRICULOGRAPHY IMG S&I N/A 06/21/2024 Procedure: Left Heart Cath; Surgeon: Melba Singh MD; Location: HYBRID MARKETING UNDERWRITER; Service: Cardiovascular (more content not included)...[facility]11-05-2025 NoteNEPHROLOGY CONSULTATION NOTE [facility] Patient Name: Lorenzo Amato MR #: [id number] : 1970 Requesting provider: Hospitalist Reason for [...] 5 chronic kidney disease (HCC) not on dialysis...MANAGER BANQUET: Dr. Gracie Miller Venous embolism lungs and legs Vitamin D deficiency Past Surgical History: Procedure Laterality Date APPENDECTOMY CARDIAC CATHETERIZATION N/A 06/21/2024 Procedure: Coronary Angiogram; Surgeon: Melba Singh MD; Location: HYBRID MARKETING UNDERWRITER; Service: Cardiovascular CARDIAC CATHETERIZATION N/A 06/21/2024 Procedure: Angioplasy w/Stent- Coronary; Surgeon: Melba Singh MD; Location: HYBRID MARKETING UNDERWRITER; Service: Cardiovascular CARDIAC CATHETERIZATION N/A 06/21/2024 Procedure: Angioplasty - Intravascular Lithotripsy - Coronary; Surgeon: Melba Singh MD; Location: HYBRID MARKETING UNDERWRITER; Service: Cardiovascular COLONOSCOPY last was 2015, polyps, done in [place], 2 procdures CORONARY ANGIOPLASTY WITH STENT PLACEMENT has had 2 surgeries, 2019 most recent CV IR INTERVENTIONAL RADIOLOGY N/A 06/16/2024 Procedure: VR Dialysis Cath Insert Tunnel; Surgeon: Dariusz Modi MD; Location: IR LAB; Service: Interventional Radiology; Laterality: N/A; ESOPHAGOGASTRODUODENOSCOPY last was done in [place], gastic tumor, INSULIN PUMP AND GLUCOSE SENSOR IR IVC FILTER PLACEMENT 2012 for Blood clots [place] HRT CATH W/NJX L VENTRICULOGRAPHY IMG S&I N/A 06/21/2024 Procedure: Left Heart Cath; Surgeon: Melba Singh MD; Location: HYBRID MARKETING UNDERWRITER; Service: Cardiovascular [place] LAPS INSERTION TUNNELED INTRAPERITONEAL CATHETER N/A 05/19/2024 PD cath, [facility].....Dr. Brian Arevalo TATTOO TEETH EXTRACTION TRANSFUSION BLOOD PRODUCT VASECTOMY Family History: Family History Problem Relation Age of Onset Uterine cancer Mother Heart disea (more content not included)...[facility]05-20-2025 History of Present illness Narrative* Alyson [...] Initial History and Assessment Lorenzo Amato 1970 [id number] 04/03/2025 Primary Diagnosis: PCI Date of event/procedure: 02/13/2025 Participated in cardiac rehab program before: [x] Yes: During Covid at [facility]. KX after 26 sessions. [] No Living Will: [x] Yes [] No On File: [x] Yes [] No [] N/A: Older Verison Durable Power of Land Leasing Information Clerk: [x] Yes [] No Medical History Past [...] of blood transfusion Hypercholesteremia Hypertension Liver metastases NJ (myocardial infarction) (HCC) MS (multiple sclerosis) (HCC) [...] pump and sensor Have you seen a business services associate or paraeducator? [] Yes [] No BMI <= 35? [...] 12-Lead EKG - Date: 03/01/2025 VR- 79 KY- 200 QRS- 104 QT/QTc- 400/458 Normal Sinus [...] Artery Has proximal 100% occlusion with robust xwjf-cq-ssxbs collaterals Ejection Fraction- 36% (02/12/2025) Pulmonary- Breath [...] dizziness at <5 METs or during recovery NJ or cardiac surgery complicated by cardiogenic shock, [...] resting or exercise induced complex dysrhythmias Uncomplicate NJ, CABG, angioplasty, atherectomy, or stent Normal hemodynamic [...] healthy body weight over the program utilizing business services associate recommendations, as well as moderating nutritional intake, [...] Rehabilitation Physician Order Form Lorenzo Amato 1970 [id number] 04/03/2025 Procedure/Code: Phase 2 Cardiac Rehabilitation/72587 Diagnosis/Code: PCI / Z95.5 Onset/Procedure Date: 02/13/2025 [...] 8:38 PM EDT documented in this encounterBon [facility] History of Present illness Narrative* Augusta Olson [...] Admission Dx: NSTEMI (non-ST elevated myocardial infarction) ([facility]) [I21.4] CAD in muscogee artery [I25.10] Reason for Consult: management recommendations [...] of blood transfusion, Hypercholesteremia, Hypertension, Liver metastases, NJ (myocardial infarction) (HCC), MS (multiple sclerosis) (HCC), [...] Yes Myron Styles MD epoetin santino (EPOGEN;PROCRIT) 55054 UNIT/ML injection Inject 1 mL into the [...] Serna MD vitamin D (ERGOCALCIFEROL) 1.25 MG (44508 UT) CAPS capsule Take 1 capsule by [...] as needed for Dizziness 10/30/24 Jyotsna Her, LATHE PULLER - PASSPORT SUPPORT ASSOCIATE calcitRIOL (ROCALTROL) 0.5 MCG capsule TAKE 1 [...] mL IV syringe 1,000 mg IntraVENous Q24H Rene Monroy MD 1,000 mg at 02/13/25 2145 [...] IntraPERitoneal 4x Daily Zee Gonzales APRN - COMPANY PILOT 2,500 mL at 02/14/25 0901 sodium chloride flush 0.9 % injection 5-40 mL 5-40 mL IntraVENous 2 times per day Kanwal Preciado APRN - PASSPORT SUPPORT ASSOCIATE 10 mL at 02/14/25 0828 sodium chloride [...] mg 0.4 mg SubLINGual Q5 Min PRN Kanwal Preciado APRN - CNP morphine injection 4 mg 4 mg IntraVENous Once PRN Kanwal Preciado APRN - CNP atorvastatin (LIPITOR) tablet 80 mg 80 mg Oral Nightly Cynthia Magana LATHE PULLER - COMPANY PILOT 80 mg at 02/13/25 2039 busPIRone (BUSPAR) tablet 15 mg 15 mg Oral TID [facility] 15 mg at 02/14/25 0825 furosemide (LASIX) tablet 80 mg 80 mg Oral BID [facility] 80 mg at 02/14/25 0824 meclizine (ANTIVERT) tablet 25 mg 25 mg Oral TID PRN MowyattCynthia APRN - NP metoprolol succinate (TOPROL XL) extended release tablet 100 mg 100 mg Oral BID [facility] LATHE PULLER - COMPANY PILOT 100 mg at 02/14/25 1002 pantoprazole (PROTONIX) tablet 40 mg 40 mg Oral BID [facility] PILOT 40 mg at 02/14/25 0824 heparin (porcine) injection 4,000 Units 4,000 Units IntraVENous PRN [facility] LATHE PULLER - COMPANY PILOT 4,000Units at 02/13/25 0049 heparin (porcine) injection 2,000 Units 2,000 Units IntraVENous PRN [facility] COMPANY PILOT 2,000Units at 02/11/25 0037 gentamicin (GARAMYCIN) 0.1 [...] Hospital Problems Diagnosis Date Noted CAD in muscogee artery [I25.10] 02/13/2025 Priority: High NSTEMI (non-ST [...] (HCC) [D3A.092] 05/25/2013 Liver metastases [C78.7] 05/25/2013 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 Mcguire or in our [place] office upon discharge. Sandostatin administration will need to be rescheduled. Oncology nurse navigator is consulted. Final recommendations to follow after discussing with the attending physician, Dr. Serna Discussed with patient and Nurse. Thank you for asking us to see this patient. Ayesha Wharton APRN - MARIA EUGENIA [facility] Hematology/Oncology 02/14/2025 Attending Physician Statement I have [...] June, hypertension, NABOR on CPAP presents from [facility] with sudden onset chest pressure radiating to his left arm and associated with nausea, diaphoresis, shortness of breath. Pain relieved with sublingual nitroglycerin. Troponin 1900,repeat 2100. Patient was started on heparin drip and admitted for NSTEMI. Transferred to [facility] for cardiology evaluation. Nephrology consulted for management [...] mouth 2 times daily epoetin santino (EPOGEN;PROCRIT) 33088 UNIT/ML injection, Inject 1 mL into the [...] times daily. vitamin D (ERGOCALCIFEROL) 1.25 MG (39395 UT) CAPS capsule, Take 1 capsule by mouth once a week Insulin Pen Needle 31G X 8 MM MISC, 1 each by Does not apply route 4 times daily Use four times daily with insulin. sennosides-docusate sodium (SENOKOT-S) 8.6-50 MG tablet, Take 2 tablets by mouth 2 times daily as needed for Constipation blood glucose test strips (Ligandal NO CODING BLOOD GLUC) strip, 1 each [...] Input/Output: I/O last 3 completed shifts: In: 64472.4 [P.O.:600; I.V.:1.4; Blood:350; Other:9700] Out: 69212 [Urine:620; Other:68225; Blood:200]. Patient Vitals for the past 96 [...] Herminia Gonzales APRN-[facility] Attending Physician Statement I have discussed the care of Lorenzo Amato, including pertinent history and exam findings with theNP. I have reviewed the singer elements of all parts of the encounter with the resident/fellow. I haveseen and examined the patient with the COMPANY PILOT. I agree with the assessment, plan and orders as documented by the COMPANY PILOT. My medical decision making is as follows: Seen and examined at bedside, can go home and continue his home prescription of PT, he has gotten between 100 to 300 cc of UF since yesterday. Xenia Underwood MD * Guillermo Ortiz MD - 02/14/2025 5:07 AM EDT Images from the original note were not included. [place] Environmental Health Manager Progress Note Date: 02/14/2025 Patient name: Lorenzo Amato Date of admission: 02/09/2025 5:43 PM Date of : 1970 PCP: Lion Carlson MD Reason for Admission: NSTEMI (non-ST elevated myocardial infarction) (HCC) [I21.4] CAD in muscogee artery [I25.10] Subjective: Clinical Changes /Abnormalities: No [...] tricuspid and mitral regurgitation although suboptimal image [facility] 02/12/25: Conclusion Ultrasound-guided right common femoral [...] reading. The pre-interventional distal flow is normal (ADVID 3).. Left Anterior Descending Dist LAD lesion, [...] no complications. Supplies used: CATH BLLN ANGIO 3.17B96YB SC EUPHORA RX Angioplasty Angioplasty using a standard balloon was performed prior to stent deployment. Lesion complication(s): no complications. Supplies used: CATH BLLN ANGIO 3.10D93HP SC EUPHORA RX Angioplasty Angioplasty using a standard balloon was performed prior to stent deployment. Lesion complication(s): no complications. Supplies used: CATH BLLN ANGIO 3.78K49GJ SC EUPHORA RX Angioplasty Angioplasty using a standard balloon was performed prior to stent deployment. Lesion complication(s): no complications. Supplies used: CATH BLLN ANGIO 3.76X56AH SC EUPHORA RX Stent A single stent [...] to monitor. Kuldeep Tripp MD. Cardiovascular Fellow, [facility], [place], [place]. Attending Physician Statement I have discussed the case of Lorenzo Amato including pertinent history and exam findings with the student/resident/fellow. I have seen and examined the patient and the singer elements of the encounter have been performed by me. I agree with the assessment, plan and orders as documented by the resident With changes made to the note. . [place] Environmental Health Manager [phone] * Allyson Cazares - 02/13/2025 9:42 PM EDT Spiritual Health History and Assessment/Progress Note [facility] (P) Post-Procedural, Name: Lorenzo Amato Age: 54 y.o. Sex: male Language: Iraqi Sabianist: Anglican NSTEMI (non-ST elevated myocardial infarction) (HCC) Date: 02/14/2025 Total Time Calculated: (P) 17 min Spiritual Assessment continued in [facility] CAR 1- SICU Referral/Consult From: (P) Family, Other channel sales director Encounter Overview/Reason: (P) Post-Procedural Service Provided For: (P) Patient Narrative: Global Project Manager made follow-up visit to patient, per other channel sales director referral. Patient was sitting up in hospital bed, when channel sales director visited. Per patient, he underwent a heart cath today and had stents placed. Patient confirmed that his spouse just left the unit to rest at [facility]. Patient thanked channel sales director for visit. Chaplains can make follow-up visit, per request. Chaplains can be reached 07/06 via [employer]. Ivana, Belief, Meaning: Patient has beliefs or [...] Perez MD - 02/13/2025 8:[address] [facility]PATIENT SERVICE [facility] Progress Note 02/13/2025 8:47 PM Name: Lorenzo Amato Acct: [id number] Room: [address] [place] [address] IP Day: 4 Admit Date: 02/09/2025 5:43 [...] consistent with NSTEMI she was transferred to [facility] for cardiology evaluation and management. Patient is [...] disease), GERD (gastroesophageal reflux disease), GI bleed, [place] filter in place, History of blood transfusion, Hypercholesteremia, Hypertension, Liver metastases, NJ (myocardial infarction) (HCC), MS (multiple sclerosis) (HCC), [...] * (Principal) NSTEMI (non-ST elevated myocardial infarction) ([facility]) 02/09/2025 Yes CAD in muscogee artery 02/13/2025 Yes NABOR (obstructive sleep apnea) 02/09/2025 Yes Overview Signed 01/10/2013 1:38 PM by Yessenia Kim CPAP Mixed hyperlipidemia 02/09/2025 Yes Benign essential HTN 02/09/2025 Yes GERD (gastroesophageal reflux disease) 02/09/2025 Yes alf current use of anticoagulant therapy 02/09/2025 Yes [...] Amaro RN - 02/13/2025 5:45 PM EDT Bridal Stylist Sales Consultant gave report to ALEJANDRO Mejía with SICU. * Augusta Hutchinson RN - 02/13/2025 1:00 PM EDT Patient admitted, consent signed and questions answered. Patient ready for procedure. Call light toreach with side rails up 2 of 2. Right groin hair clipped with song writer and Cristina present. Family at bedside with patient. * Radha Hernandez APRN - [facility] EUGENIA - 02/13/2025 12:01 PM EDT Images from the original note were not included. 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 [facility] [employer] [phone] * Allyson Cazares - 02/12/2025 8:51 PM EDT Spiritual Health History and Assessment/Progress Note [facility] Spiritual/Emotional Needs, Pre-Op, Name: Lorenzo Amato Age: 54 y.o. Sex: male Language: Iraqi Sabianist: Anglican NSTEMI (non-ST elevated myocardial infarction) (HCC) Date: 02/13/2025 Total Time Calculated: (P) 27 min Spiritual Assessment began in [facility] 5C STEPDOWN Referral/Consult From: (P) Nurse, Patient Encounter Overview/Reason: Spiritual/Emotional Needs, Pre-Op Service Provided For: (P) Patient and family together Narrative: Global Project Manager visited with patient per nurse referral, indicating that patient expressed desire for channel sales director visit. Global Project Manager introduced herself to patient and to his spouse, who was present in room. Per patient and family, he is hospitalized often at [facility] and has become close with the channel sales director there. Patient and spouse shared about the difficult year they have had, including the oftheir son, taking his three children into their care and patient's health issues. Patient is expected to undergo a heart cath and possibly open heart surgery during this hospitalization. Patient and spouse were tearful and expressed gratitude for channel sales director's visit. Global Project Manager provided support and offered prayer in room. [...] RN - 02/12/2025 4:23 PM EDT CTS COMPANY PILOT at bedside. Perfect served Dr. Donald about PD cath issue, he will address. * Jennifer Duffy RN - 02/12/2025 3:07 PM EDT Pt returned from chemistry lab instructor, laying flat, site C/D/I rt femoral site. Family at bedside. Stat echo with TTE ordered, since he has to lay flat, I asked Elizabeth from echo to come to bedside , because he's supposed to lay for 2 hours. Will let cardiology know. * Tania Aguilar MD - 02/12/2025 2:[address] [facility]PATIENT SERVICE [facility] Progress Note 02/12/2025 2:59 PM Name: Lorenzo Amato Acct: [id number] Room: 0547/0547-01 IP Day: 3 Admit Date: 02/09/2025 5:43 PM PCP: Lion Carlson MD Code Status: Full Code Subjective: Interval History Status: not changed. Denies chest pain or shortness of breath. Has been afebrile. Patient with history of coronary artery disease status post PTCA and multiple stents placements in the past [facility] that was relieved by nitro. Troponin was elevated and his diagnosis was consistent with NSTEMI she was transferred to [facility] for cardiology evaluation and management. 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 Continue PO Plavix, statin, Tropol & Heparin gtt Volume management per nephrology/HD appreciate assistance Of note, patient stated that if he has multivessel CAD on cardiac cath, he does not want bypass surgery and would like stents only. Npo for cath today Echo pending [employer] [phone] * Ángela Jordan RN - 02/12/2025 9:07 [...] review transfer in from another facility for [facility] realated health issues. Patient has history of [...] insulin pump communication log sheet at bedside Bridal Stylist Sales Consultant rounded at about 9: 15 am and [...] family are from over 1 hour away. Bridal Stylist Sales Consultant explained metro policy that patient must have [...] needs please call out patient office - [phone] ÁNGELA JORDAN RN * Rene Monroy MD [...] drip and admitted for NSTEMI. Transferred to [facility] for cardiology evaluation. Nephrology consulted for management [...] mouth 2 times daily epoetin santino (EPOGEN;PROCRIT) 96033 UNIT/ML injection, Inject 1 mL into the [...] times daily. vitamin D (ERGOCALCIFEROL) 1.25 MG (07491 UT) CAPS capsule, Take 1 capsule by mouth once a week Insulin Pen Needle 31G X 8 MM MISC, 1 each by Does not apply route 4 times daily Use four times daily with insulin. sennosides-docusate sodium (SENOKOT-S) 8.6-50 MG tablet, Take 2 tablets by mouth 2 times daily as needed for Constipation blood glucose test strips (PeeplePassIGY NO CODING BLOOD GLUC) strip, 1 each [...] Input/Output: I/O last 3 completed shifts: In: 12026.3 [P.O.:870; I.V.:521.3; Other:89217] Out: 87150 [Urine:2375; Other:20241]. Patient Vitals for the past 96 hrs [...] Spring Ivory MD PGY-2, Internal Medicine Resident [facility] [place] 02/12/2025, 8:20 AM Attending Physician Statement I [...] Aguilar MD - 02/11/2025 11:[address] [facility]PATIENT SERV[facility] Progress Note 02/11/2025 11:54 AM Name: Lorenzo Amato Acct: [id number] Room: 0547/0547-01 Day: 2 Admit Date: 02/09/2025 [...] consistent with NSTEMI she was transferred to [facility] for cardiology evaluation and management. Patient is [...] disease), GERD (gastroesophageal reflux disease), GI bleed, [place] filter in place, History of blood transfusion, Hypercholesteremia, Hypertension, Liver metastases, NJ (myocardial infarction) (HCC), MS (multiple sclerosis) (HCC), [...] 02/11/2025 1005 Gross per 24 hour Intake 20853.29 ml Output 43941 ml Net 1006.29 ml Labs: Hematology: Recent [...] Yes GERD (gastroesophageal reflux disease) 02/09/2025 Yes 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 02/09/2025 Yes [...] MD 02/11/2025 11:54 AM * Jm Bernabe, LATHE PULLER - PASSPORT SUPPORT ASSOCIATE - 02/11/2025 11:40 AM EDT Images from the original note were not included. [place] Environmental Health Manager Progress Note Date: 02/11/2025 Patient name: Lorenzo [...] Vitamin D deficiency GERD (gastroesophageal reflux disease) alf current use of anticoagulant therapy Carcinoid tumor [...] (HCC) Chronic renal disease, stage III (HCC) [826381] Type 2 diabetes mellitus with hyperglycemia Type [...] only. Npo for cath tomorrow Echo pending [employer] Environmental Health Manager [employer]. [phone] * Carrie Sharp MD - 02/11/2025 11:16 [...] drip and admitted for NSTEMI. Transferred to [facility] for cardiology evaluation. Nephrology consulted for management [...] mouth 2 times daily epoetin santino (EPOGEN;PROCRIT) 66132 UNIT/ML injection, Inject 1 mL into the [...] times daily. vitamin D (ERGOCALCIFEROL) 1.25 MG (02173 UT) CAPS capsule, Take 1 capsule by [...] Input/Output: I/O last 3 completed shifts: In: 49256.2 [P.O.:480; I.V.:260.2; Other:42647] Out: 18759 [Urine:1650; Other:57343]. Patient Vitals for the past 96 hrs [...] PM Urine Sodium: No components found for: DESIREE Urine Potassium: Lab Results Component Value Date/Time [...] diet/TF. Avoid nephrotoxic drugs/contrast exposure. Herminia Gonzales APRN-PASSPORT SUPPORT ASSOCIATE [facility] Patient seen on CAPD with nurse practitioner [...] significant decreased residual renal function 2. Acute qfq-GP-qldabylmf NJ presenting as chest pain the patient was [...] Mg RN - 02/11/2025 10:06 AM EDT Bridal Stylist Sales Consultant called to room. Pt out of insulin for his insulin pump. Bridal Stylist Sales Consultant notified provider regarding sliding scale. Pt removed [...] Aguilar MD - 02/10/2025 11:[address] [facility]PATIENT SERV[facility] Progress Note 02/10/2025 11:11 AM Name: Lorenzo Amato Acct: [id number] Room: [facility] Day: 1 Admit Date: 02/09/2025 5:43 PM PCP: Lion Carlson MD Code Status: Full Code Subjective: Interval History Status: not changed. Denies chest pain or shortness of breath. Has been afebrile. Patient with history of coronary artery disease status post PTCA and multiple stents placements in the past who presented to [facility] facility with chest pain yesterday that was relieved by nitro. Troponin was elevated and his diagnosis was consistent with NSTEMI she was transferred to [facility] for cardiology evaluation and management. 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 Glucose pump and monitor. Bridal Stylist Sales Consultant added to pt LDA. Bridal Stylist Sales Consultant notified provider regarding orders for insulin infusion pump. Claudia Mg, RN * Flip Morrissey RN - 02/09/2025 6:32 PM EDT Bridal Stylist Sales Consultant took critical lab of creatinine 6.3 and trops 1,968. Bridal Stylist Sales Consultant notified primary RN Yesika. * Carmen Leung [...] 02/09/2025 6:29 PM documented in this [facility]Bon [facility] Hospital Discharge instructions* Discharge Instructions* Kuldeep Tripp MD - 02/14/2025 4:13 PM EDT Please take aspirin, Plavix and Eliquis for 2 weeks. Stop aspirin after 2 weeks and continue takingPlavix and Eliquis continuously. Follow-up with cardiology in 2 weeks time. * Attachments The following attachments cannot be sent through Care Everywhere. * Blood Transfusions: General Info (Iraqi) documented in this encounterBon [facility] Hospital Discharge instructions* Discharge Instructions* Naa Flood [...] medications unless otherwise instructed. [facility] History of Present illness Narrative* Avani Herman RN - 08/29/2024 10:24 AM EDT NAsal trumpet removed at 10:08 * Avani Herman RN - 08/29/2024 10:10 AM EDT Received post AV fistula creation procedure to [facility] room 5. Assessment obtained. Restrictions reviewed with [...] prep site right arm documented in [facility] History of Present illness Narrative* Ness Hardin RN - 06/27/2024 6:49 AM EDT Pt has been referred to Phase II Cardiac Rehab 06/21/24 s/p PCI. Pt would like to do his CR at [facility]. Referral faxed. documented in this [id number] Note* Plan of Care - Radha Acevedo [...] maximum level of psychosocial functioning Outcome: Completed [id number] Miscellaneous Notes* Plan of Care - Radha [...] 9:27 AM EDT Cardiology Progress Note [facility] and Vascular Physicians Cardiology Sign-Off [...] referred to phase II cardiac rehab. This COMPANY PILOT discussed Cardiac Rehabilitation with the patient. Subjects [...] hypertension, MS, morbid obesity, NABOR, presented to [facility] on 06/15/2024 with groin swelling. Patient presented to the ER with lower extremityswelling with bilateral groin swelling for the last several days. He was seen by his wiring technician and was advised for admission for dialysis. [...] 13:34 194/94-19-82- 100 percent with 3L/NNC 13:40 182/06-72-03-106-100 percent with 3L/NC 19:85939/68-16-70-97.3-99 percent with 4L/NC EKG:none orders WEIGHT:(307 lb [...] ntains abnormal data Comprehensive Metabolic Panel Order: [id number] Status: Final result Visible to patient: Yes [...] of bilateral groin pain after starting PD [employer] on board, for inpatient HD IR was [...] determine Thank you, Naa OLIVEIRA, RN Clinical Weather Strip Mechanic [phone] (cell) After business hours you may contact Elvia Schmitt at [phone] (Weekdays until 10 PM and weekends 8 [...] AM EDT POC initiated documented in this [id number] History of Present illness Narrative* Pily Gloria, [...] swelling. Pt with ESRD, recently started onPD OFFICE HELPER CLERICAL. Will be discharging on HD per chart [...] 5 chronic kidney disease (HCC) not on dialysis...MANAGER BANQUET: Dr. Gracie Miller Venous embolism lungs and legs Vitamin D deficiency Past Surgical History: Procedure Laterality Date APPENDECTOMY CARDIAC CATHETERIZATION N/A 06/21/2024 Procedure: Coronary Angiogram; Surgeon: Melba Singh MD; Location: [facility]; Service:Cardiovascular CARDIAC CATHETERIZATION N/A 06/21/2024 Procedure: Angioplasy w/Stent- Coronary; Surgeon: Melba Singh MD; Location: [facility]; Service: Cardiovascular CARDIAC CATHETERIZATION N/A 06/21/2024 Procedure: Angioplasty - Intravascular Lithotripsy - Coronary; Surgeon: Melba Singh MD; Location: [facility] MARKETING UNDERWRITER; Service: Cardiovascular COLONOSCOPY last was 2014, polyps, done in [place], 2 procdures CORONARY ANGIOPLASTY WITH STENT PLACEMENT has had 2 surgeries, 2019 most recent ESOPHAGOGASTRODUODENOSCOPY last was done in [place], gastic tumor, INSULIN PUMP AND GLUCOSE SENSOR IR IVC FILTER PLACEMENT 2012 for Blood clots [place] INSJ INTRAPERITONEAL CATHETER W/IMG GUID N/A 06/16/2024 Procedure: VR Dialysis Cath Insert Tunnel; Surgeon: Dariusz Modi MD; Location: IR LAB;Service: Interventional Radiology [place] L HRT CATH W/NJX L VENTRICULOGRAPHY IMG S&I N/A 06/21/2024 Procedure: Left Heart Cath; Surgeon: Melba Singh MD; Location: [facility] UNDERWRITER; Service: Cardiovascular [place] LAPS INSERTION TUNNELED INTRAPERITONEAL CATHETER N/A 05/19/2024 [...] No Nutrition Related Allergies noted Cultural or Zoroastrianism Dietary Needs :No Cultural or Zoroastrianism Dietary needs noted Patient/family comments: see education [...] Pily Gloria RDN, LD, CLC Dietitian Office: [phone] * Gracie Miller MD - 06/22/2024 10:14 AM EDT [facility]PHROLOGY PROGR[facility] Patient Name: Lorenzo Amato Admit Date: 8001219 MR #: [id number] : 1970 Perpetual Assessment: Lorenzo Amato is [...] the outpatient setting. -Next HD tomorrow at [facility] -PD catheter we flushed today at [facility] I have discussed with the patient [...] arrangements for outpatient hemodialysis that here in [facility] with Dr Fletcher. While on hemodialysis [...] I discussed this with the outpatient clinical radio station manager of a [facility] and she will contact the oncologist 4. [...] Systolic heart failure with EF 32% - [facility] 06/21: S/p PCI intervention to LAD [...] during this hospitalization -Follows with endocrinology in [place] in the outpatient setting Subjective: Patient has been cleared by cardiology for discharge. We discussed the plan of outpatient nephrology care and I coordinated [place] [facility] [place] hospital discharge Review of Systems: [...] created by dictation via voice recognition software ([employer]). The completed note was reviewed for accuracy. [...] Feliciano MD - 06/21/2024 3:02 PM EDT [facility] PROGRESS NOTE Assessment and Plan Lorenzo Amato is a 54 y.o. male patient of Lion Carlson MD with history of anemia, CAD, depression, diabetes mellitus, GERD, dyslipidemia, hypertension, MS, morbid obesity, NABOR, presented to [facility] on 06/15/2024 with groin swelling. Anasarca [...] Lorenzo Amato Admit Date: 8001219 MR #: [id number] : 1970 Perpetual Assessment: Lorenzo Amato is [...] arrangements for outpatient hemodialysis that here in [facility] with Dr Fletcher. While hemodialysis he [...] I discussed this with the outpatient clinical radio station manager of a [facility] and she will contact the oncologist 4. [...] during this hospitalization -Follows with endocrinology in [place] in the outpatient setting Subjective: Multiple family members at bedside. Patient reports no events overnight. Discussed with cardiology PASSPORT SUPPORT ASSOCIATE the patient does not want CABG if [...] created by dictation via voice recognition software ([employer]). The completed note was reviewed for accuracy. [...] cath today. Not medically ready to discharge. [facility] will continue to follow. Assessment and Background Information: * Charmaine Sanderson CNP - 06/21/2024 10:25 AM EDT Images from the original note were not included. Patient ID: Patient Name: Lorenzo Amato Admit Date: 06/15/2024 MR #: [id number] : 1970 Current location: 2111 Physicians: Lion [...] basal rate. He follows with endocrinology in [facility]. Na: 131; Creat: 4.83; eGFR: 13. CBC: [...] at the bedside. They report that his toe laster instructed him to take a set dose [...] settings. Patient plans to follow up with toe laster in [place] May consider U-500 in pump to aid [...] blood tests - >4 times daily with [employer] sensor. Complications of diabetes include: Retinopathy: Negative [...] 5 chronic kidney disease (HCC) not on dialysis...MANAGER BANQUET: Dr. Gracie Miller Venous embolism lungs and legs Vitamin D deficiency Past Surgical History: Procedure Laterality Date APPENDECTOMY COLONOSCOPY last was 2014, polyps, done in [place], 2 procdures CORONARY ANGIOPLASTY WITH STENT PLACEMENT has had 2 surgeries, 2019 most recent ESOPHAGOGASTRODUODENOSCOPY last was done in [place], gastic tumor, INSULIN PUMP AND GLUCOSE SENSOR IR IVC FILTER PLACEMENT 2012 for Blood clots [place] INSJ INTRAPERITONEAL CATHETER W/IMG GUID N/A 06/16/2024 Procedure: VR Dialysis Cath Insert Tunnel; Surgeon: Dariusz Modi MD; Location: IR LAB;Service: Interventional Radiology [place] LAPS INSERTION TUNNELED INTRAPERITONEAL CATHETER N/A 05/19/2024 [...] Feliciano MD - 06/20/2024 3:06 PM EDT [facility] PROGRESS NOTE Assessment and Plan Lorenzo Amato is a 54 y.o. male patient of Lion Carlson MD with history of anemia, CAD, depression, diabetes mellitus, GERD, dyslipidemia, hypertension, MS, morbid obesity, NABOR, presented to [facility] on 06/15/2024 with groin swelling. Anasarca [...] Status: Patient will need to be at [facility] at 3:00pm. Will update patient. Assessment and Background Information: * Gracie Miller MD - 06/20/2024 10:26 AM EDT NEPHROLOGY [facility] Patient Name: Lorenzo Amato Admit Date: 8001219 MR #: [id number] : 1970 Perpetual Assessment: Lorenzo Amato is [...] arrangements for outpatient hemodialysis that here in [facility] with Dr Fletcher. While hemodialysis he [...] I discussed this with the outpatient clinical radio station manager of a [facility] and she will contact the oncologist 4. [...] reports no events overnight. Discussed with cardiology PASSPORT SUPPORT ASSOCIATE and plans for left heart catheterization since [...] created by dictation via voice recognition software ([employer]). The completed note was reviewed for accuracy. [...] Lorenzo Amato Admit Date: 06/15/2024 MR #: [id number] : 1970 Current location: 2111 Physicians: Lion Carlson MD (Family); Ananda Gerber [facility],PharmD (Referring) Reason for consult: Type 2 diabetes [...] basal rate. He follows with endocrinology in [facility]. Na: 131; Creat: 4.83; eGFR: 13. CBC: [...] settings. Patient plans to follow up with toe laster in [place] May consider U-500 in pump to aid [...] blood tests - >4 times daily with Genalyte sensor. Complications of diabetes include: Retinopathy: Negative [...] 5 chronic kidney disease (HCC) not on dialysis...MANAGER BANQUET: Dr. Gracie Miller Venous embolism lungs and legs Vitamin D deficiency Past Surgical History: Procedure Laterality Date APPENDECTOMY COLONOSCOPY last was 2014, polyps, done in [place], 2 procdures CORONARY ANGIOPLASTY WITH STENT PLACEMENT has had 2 surgeries, 2019 most recent ESOPHAGOGASTRODUODENOSCOPY last was done in [place], gastic tumor, INSULIN PUMP AND GLUCOSE SENSOR IR IVC FILTER PLACEMENT 2012 for Blood clots [place] INSJ INTRAPERITONEAL CATHETER W/IMG GUID N/A 06/16/2024 Procedure: VR Dialysis Cath Insert Tunnel; Surgeon: Dariusz Modi MD; Location: IR LAB;Service: Interventional Radiology [place] LAPS INSERTION TUNNELED INTRAPERITONEAL CATHETER N/A 05/19/2024 [...] Lorenzo Amato Admit Date: 8001219 MR #: [id number] : 1970 Perpetual Assessment: Lorenzo Amato is [...] arrangements for outpatient hemodialysis that here in [facility] [place] [facility] with Dr Fletcher. While hemodialysis he will [...] I discussed this with the outpatient clinical radio station manager of a [facility] and she will contact the oncologist 4. [...] created by dictation via voice recognition software ([employer]). The completed note was reviewed for accuracy. [...] Lorenzo Amato Admit Date: 8001219 MR #: [id number] : 1970 Perpetual Assessment: Lorenzo Amato is [...] to make arrangements for outpatient dialysis at [facility] due to where patient lives. Once he [...] created by dictation via voice recognition software ([employer]). The completed note was reviewed for accuracy. [...] Patient received OP HD chair time at [facility] at 4:00pm under Dr. Fletcher. Assessment and Background Information: * Edita Feliciano MD - 06/19/2024 10:16 AM EDT [facility] PROGRESS NOTE Assessment and Plan Lorenzo Amato is a 54 y.o. male patient of Lion Carlson MD with history of anemia, CAD, depression, diabetes mellitus, GERD, dyslipidemia, hypertension, MS, morbid obesity, NABOR, presented to [facility] on 06/15/2024 with groin swelling. Anasarca [...] Lorenzo Amato Admit Date: 06/15/2024 MR #: [id number] : 1970 Current location: [facility] Physicians: Lion Carlson MD (Family); Ananda Gerber [facility],PharmD (Referring) Reason for consult: Type 2 diabetes [...] basal rate. He follows with endocrinology in [facility]. Na: 131; Creat: 4.83; eGFR: 13. CBC: [...] settings. Patient plans to follow up with toe laster in [place] May consider U-500 in pump to aid [...] units/h. He followswith Dr. Hubert Nowak MD [facility] endocrinology. His last visit with their office was 04/26 when his hemoglobin A1c was 9.0%. Patient has taken Insulin for >5 years, started a pump in 2019. . Currently the patient is receiving insulin via pump with outpatient settings. Blood sugar levels since admission have been ranging from 104-276 mg/dL. Current monitoring regimen: home blood tests - >4 times daily with Genalyte sensor. Complications of diabetes include: Retinopathy: Negative [...] 5 chronic kidney disease (HCC) not on dialysis...MANAGER BANQUET: Dr. Gracie Miller Venous embolism lungs and legs Vitamin D deficiency Past Surgical History: Procedure Laterality Date APPENDECTOMY COLONOSCOPY last was 2014, polyps, done in [place], 2 procdures CORONARY ANGIOPLASTY WITH STENT PLACEMENT has had 2 surgeries, 2019 most recent ESOPHAGOGASTRODUODENOSCOPY last was done in [place], gastic tumor, INSULIN PUMP AND GLUCOSE SENSOR IR IVC FILTER PLACEMENT 2012 for Blood clots [place] LAPS INSERTION TUNNELED INTRAPERITONEAL CATHETER N/A 05/19/2024 [...] Cifuentes MD - 06/18/2024 4:19 PM EDT [facility] PROGRESS NOTE Assessment and Plan Lorenzo Amato is a 54 y.o. male patient of Lion Carlson MD with history of anemia, CAD, depression, diabetes mellitus, GERD, dyslipidemia, hypertension, MS, morbid obesity, NABOR, presented to [facility] on 06/15/2024 with groin swelling. Anasarca [...] dysfunction. Pt follows with Dr. Farris at [facility] and has appt 06/22/24. 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 MS Morbid obesity NABOR BMI 45.04 Lifestyle [...] Lorenzo Amato Admit Date: 8001219 MR #: [id number] : 1970 Perpetual Assessment: Lorenzo Amato is [...] to make arrangements for outpatient dialysis at [facility] due to where patient lives. Once he [...] created by dictation via voice recognition software ([employer]). The completed note was reviewed for accuracy. [...] Lorenzo Amato Admit Date: 8001219 MR #: [id number] : 1970 Perpetual Assessment: Lorenzo Amato is [...] to make arrangements for outpatient dialysis at [facility] due to where patient lives. Once he [...] created by dictation via voice recognition software ([employer]). The completed note was reviewed for accuracy. [...] Lorenzo Amato Admit Date: 06/15/2024 MR #: [id number] : 1970 Current location: 2111 Physicians: Lion [...] basal rate. He follows with endocrinology in [facility]. Na: 131; Creat: 4.83; eGFR: 13. CBC: [...] settings. Patient plans to follow up with toe laster in [place] May consider U-500 in pump to aid [...] units/h. He followswith Dr. Hubert Nowak MD [facility] endocrinology. His last visit with their office was 04/26 last when his hemoglobin A1c was 9.0%. Patient has taken Insulin for >5 years, started a pump in 2019. . Currently the patient is receiving insulin via pump with outpatient settings. Blood sugar levels since admission have been ranging from 104-276 mg/dL. Current monitoring regimen: home blood tests - >4 times daily with Genalyte sensor. Complications of diabetes include: Retinopathy: Negative [...] 5 chronic kidney disease (HCC) not on dialysis...MANAGER BANQUET: Dr. Gracie Miller Venous embolism lungs and legs Vitamin D deficiency Past Surgical History: Procedure Laterality Date APPENDECTOMY COLONOSCOPY last was 2014, polyps, done in [place], 2 procdures CORONARY ANGIOPLASTY WITH STENT PLACEMENT has had 2 surgeries, 2019 most recent ESOPHAGOGASTRODUODENOSCOPY last was done in [place], gastic tumor, INSULIN PUMP AND GLUCOSE SENSOR IR IVC FILTER PLACEMENT 2012 for Blood clots [place] LAPS INSERTION TUNNELED INTRAPERITONEAL CATHETER N/A 05/19/2024 [...] Lorenzo Amato Admit Date: 8001219 MR #: [id number] : 1970 Perpetual Assessment: Lorenzo Amato is [...] consulted to make arrangements foroutpatient dialysis at [facility] due to where patient lives. Once he [...] created by dictation via voice recognition software ([employer]). The completed note was reviewed for accuracy. [...] Lorenzo Amato Admit Date: 8001219 MR #: [id number] : 1970 Perpetual Assessment: Lorenzo Amato is [...] to make arrangements for outpatient dialysis at [facility] due to where patient lives. Once he [...] created by dictation via voice recognition software ([employer]). The completed note was reviewed for accuracy. However, there may be subtle errors that were not found during the review. If such errors are discovered, or if there are any questions or concerns regarding the recommendations/plan of care, please contact the author of the note prior to undertaking the recommendations/plan of care. * Liana Cifuentes MD - 06/17/2024 10:05 AM EDT [facility] PROGRESS NOTE Assessment and Plan Lorenzo Amato is a 54 y.o. male patient of Lion Carlson MD with history of anemia, CAD, depression, diabetes mellitus, GERD, dyslipidemia, hypertension, MS, morbid obesity, NABOR, presented to [facility] on 06/15/2024 with groin swelling. Anasarca [...] Lorenzo Amato Admit Date: 8001219 MR #: [id number] : 1970 Perpetual Assessment: Lorenzo Amato is [...] to make arrangements for outpatient dialysis at [facility] due to where patient lives. Once he [...] created by dictation via voice recognition software ([employer]). The completed note was reviewed for accuracy. However, there may be subtle errors that were not found during the review. If such errors are discovered, or if there are any questions or concerns regarding the recommendations/plan of care, please contact the author of the note prior to undertaking the recommendations/plan of care. * Mark Vasquez MD - 06/16/2024 10:16 AM EDT [facility] PROGRESS NOTE Assessment and Plan Lorenzo Amato is a 54 y.o. male patient of Lion Carlson MD with history of anemia, CAD, depression, diabetes mellitus, GERD, dyslipidemia, hypertension, MS, morbid obesity, NABOR, presented to [facility] on 06/15/2024 with groin swelling. Anasarca [...] normal mood and affect documented in this [id number] Hospital course Narrative* Tapan Rudolph MD - 06/22/2024 10:08 AM EDT [facility] DISCHARGE SUMMARY -- [facility] Lorenzo Amato Admitted: 06/15/2024 Discharge Date: 06/22/24 PCP Handoff Recommended Outpatient Testing Follow-up with cardiology and PCP Results Pending At Discharge None Clinical Summary Lorenzo Amato is a 54 y.o. male patient of Lion Carlson MD with history of anemia, CAD, depression, diabetes mellitus, GERD, dyslipidemia, hypertension, MS, morbid obesity, NABOR, presented to [facility] on 06/15/2024 with groin swelling. Anasarca [...] on 06/22/24, 10:08 AM documented in this [id number] Note* Sign Off Note - Jm Tellez CNP - 06/22/2024 9:27 AM EDT Cardiology Progress Note [facility] Cardiology Sign-Off [...] referred to phase II cardiac rehab. This [employer] discussed Cardiac Rehabilitation with the patient. Subjects [...] Imaging: Lab Review Today's available lab reviewed. [id number] Note* Plan of Care - Isi Longoria [...] level of psychosocial functioning Outcome: Partially Met [id number] Procedure note* Heather Granger RN - 06/21/2024 8:07 PM EDT Associated Order(s): HEMODIALYSIS INPATIENT Hemodialysis tx complete. Patient hypotensive with fluid removal goals. Dr. Miller updated and orded 1000ml's ns to be given during the remainder of tx. Patient tolerated tx well. +1000 UF Pre weight 132.3kg Post weight 133kg Tx start 1543 Tx complete-1945 Post tx vitals-130/66 t-98.6 p-83 rr-18 [id number] Procedure note* Heather Granger RN - 06/21/2024 [...] EDT Vascular & Interventional Radiology Provided By [facility] FOR HEALTHCARE PROVIDER USE ONLY: Interventional Radiology Department @ [facility]: [phone] Interventional Radiology Department @ [facility]: [phone] Interventional Radiology Department @ : [phone] 07/06 VIR physician contact: [phone] Weekday/weekend VIR nurse practitioner contact @ [facility]: [phone] FOR PATIENT AND PROVIDERS: [facility]: [phone] [email or web address] HISTORY: Renal failure PROCEDURE: Tunneled dialysis catheter [...] uvula, hard and soft palates are visualized [place] Protocol: Pre-Procedural verification: Correct patient, correct site and correct procedure confirmed. H&P or interval update complete and in medical record. Informed consent form completed and signed. Radiology images, labs and pathology reviewed with appropriate identifiers (when applicable). Site Marking: N/A Time Out: PERFORMED Complications: None Full report to follow documented in this [id number] Note* Quick Note - Roslyn Enciso CNP - 06/21/2024 4:07 PM EDT Patient with TR band intact to right radial, no bleeding or hematoma noted, pulse palpable, currently receiving HD, patient denies any chest pain or SOB. All questions and concerns addressed. Vital signs stable. [facility] Work Phone: 1(134) 517-702108-07-2024 Procedure note* Melba Singh MD - 06/21/2024 [...] associated with this study. Documented by Melba Snigh MD - 06/21/2024 1:56 PM [id number] Note* Quick Note - Roslyn Enciso CNP - 06/21/2024 8:50 AM EDT Patient to remain n.p.o. for cardiac cath planned later today, updated nephrology, okay to do hemodialysis after cardiac cath is completed. Continue IV heparin drip. Patient and family members updated on tentative time of 2:30 PM, all questions and concerns addressed. Primary RN updated on plan. [id number] Note* Quick Note - Rsolyn Enciso CNP - 06/20/2024 8:45 AM EDT [...] for history of DVT/PE. Primary RN updated. [id number] Procedure note* Heather Granger RN - 06/19/2024 1:39 PM EDT Associated Order(s): HEMODIALYSIS INPATIENT Hemodialysis tx complete Hypotensive at times corrected with goal adjustments and NS bolus UF 2100 Pre tx wt-132.4kg Post tx wt-129.4kg Post tx vitals-136/69 t-98.6 p-78 rr-18 [id number] Hospital Discharge instructions* Discharge Instructions* Christa Alex RN - 06/19/2024 1:22 PM EDT [facility] Post Cardiac Catheterization Discharge Instructions Wrist Site Care: Leave Bandage in place the night of your catheterization. Watch for any bleeding or oozing from thesite. If this occurs, lie flat and place direct pressure on the bandage for 20 minutes. If bleedingreoccurs call [phone]. Remove your bandage the following morning and [...] shower 24 hours after the procedure. Call [phone] if you notice any of the following: [...] coverage and need prescription assistance, please call [phone]. Next office visit: 06/22/2024 at 12pm with [...] AM EDT Please follow up with your toe laster for insulin pump and diabetes management. Encourage you to enter the carbohydrate grams for the food you eat into your insulin pump so that you get meal bolus insulin with the carbohydrates. You may consider discussing with your toe laster if seeing a dietitian would be helpful to help with carbohydrate counting. * Attachments The following attachments cannot be sent through Care Everywhere. * Heart Failure (Ira[place]) * Renal Disease: End-Stage Diet ([place]) documented in this [id number] Consult note* Anita Barahona MD - 06/19/2024 11:58 AM EDTAssociated Order(s): IP CONSULT TO CARDIOLOGY General Cardiology Inpatient Cardiology Consult Note Heart & Vascular [facility] 06/15/2024 Anita Barahona MD [address] [facility] [id number] CARDIOLOGY CONSULT NOTE Patient Name: Lorenzo Amato Admit Date: 8001219 MR #: [id number] : 1970 Physicians: Lion Carlson MD (Family) [...] would prefer to talk to his primary teacher music Dr. Talbert prior to agreeing to any procedure The following Vizient risk variables were noted and present on admission: Admitted with these risk variables:Chronic Kidney Disease and Fluid Overload. Please see assessmentand plan for further details. Thank you for this interesting clinical case. We will continue to follow along unless otherwise noted. Anita Barahona MD, [facility] Cardiovascular Medicine [facility] History [...] 5 chronic kidney disease (HCC) not on dialysis...MANAGER BANQUET: Dr. Gracie Miller Venous embolism lungs and legs Vitamin D deficiency Past Surgical History: Procedure Laterality Date APPENDECTOMY COLONOSCOPY last was 2014, polyps, done in [place], 2 procdures CORONARY ANGIOPLASTY WITH STENT PLACEMENT has had 2 surgeries, 2019 most recent ESOPHAGOGASTRODUODENOSCOPY last was done in [place], gastic tumor, INSULIN PUMP AND GLUCOSE SENSOR IR IVC FILTER PLACEMENT 2012 for Blood clots [place] LAPS INSERTION TUNNELED INTRAPERITONEAL CATHETER N/A 05/19/2024 [...] Resource Strain: Low Risk (03/17/2024) Received from [facility] Overall Financial Resource Strain (CARDIA) [...] Units, 50,000 Units, Oral, Weekly, Sherman Zelaya, furosemide (LASIX) injection 60 mg, 60 mg, Intravenous, Q12H [facility], Gracie Miller MD, 60 mg at 06/19/24542 [...] 09/29/2019 at 10:57 a.m. Telemetry: NSR [facility] Work Phone: 1(435) 980-500708-05-2024 Consult note* Anita Barahona MD - 06/19/2024 11:58 AM EDTAssociated Order(s): IP CONSULT TO CARDIOLOGY General Cardiology Inpatient Cardiology Consult Note Heart & Vascular [facility] 06/15/2024 Anita Barahona MD [address] [place] [phone] CARDIOLOGY CONSULT NOTE Patient Name: Lorenzo Amato Admit Date: [id number] MR #: [id number] : 1970 Physicians: Lion Carlson MD (Family) [...] would prefer to talk to his primary teacher music Dr. Talbert prior to agreeing to any procedure The following Vizient risk variables were noted and present on admission: Admitted with these risk variables:Chronic Kidney Disease and Fluid Overload. Please see assessmentand plan for further details. Thank you for this interesting clinical case. We will continue to follow along unless otherwise noted. Anita Barahona MD, [facility] Cardiovascular Medicine [facility] Heart and Vascular Physician Group History [...] 5 chronic kidney disease (HCC) not on dialysis...MANAGER BANQUET: Dr. Gracie Miller Venous embolism lungs and legs Vitamin D deficiency Past Surgical History: Procedure Laterality Date APPENDECTOMY COLONOSCOPY last was 2014, polyps, done in [place], 2 procdures CORONARY ANGIOPLASTY WITH STENT PLACEMENT has had 2 surgeries, 2019 most recent ESOPHAGOGASTRODUODENOSCOPY last was done in [place], gastic tumor, INSULIN PUMP AND GLUCOSE SENSOR IR IVC FILTER PLACEMENT 2012 for Blood clots [place] LAPS INSERTION TUNNELED INTRAPERITONEAL CATHETER N/A 05/19/2024 [...] Resource Strain: Low Risk (03/17/2024) Received from [facility] Overall Financial Resource Strain (CARDIA) Difficulty [...] injection 60 mg, 60 mg, Intravenous, Q12H [facility], Gracie Miller MD, 60 mg at 06/19/24 [...] Lorenzo Amato Admit Date: 06/15/2024 MR #: [id number] : 1970 Current location: 2111 Physicians: Lion [...] basal rate. He follows with endocrinology in [facility]. Na: 131; Creat: 4.83; eGFR: 13. CBC: WBC: 8.16; Hgb: 7.3; Hct: 24.5; Plt: 196. Blood Glucoses: 06/16: 173---xxx---104---183 06/17: 276 Plan: 1. Rx changes: none Continue current pump settings. Patient plans to follow up with toe laster in [place] May consider U-500 in pump to aid [...] units/h. He followswith Dr. Hubert Nowak MD [facility] endocrinology. His last visit with their office was 04/26 when his hemoglobin A1c was 9.0%. Patient has taken Insulin for >5 years, started a pump in 2019. . Currently the patient is receiving insulin via pump with outpatient settings. Blood sugar levels since admission have been ranging from 104-276 mg/dL. Current monitoring regimen: home blood tests - >4 times daily with Genalyte sensor. Complications of diabetes include: Retinopathy: Negative [...] 5 chronic kidney disease (HCC) not on dialysis...MANAGER BANQUET: Dr. Gracie Miller Venous embolism lungs and legs Vitamin D deficiency Past Surgical History: Procedure Laterality Date APPENDECTOMY COLONOSCOPY last was 2014, polyps, done in [place], 2 procdures CORONARY ANGIOPLASTY WITH STENT PLACEMENT has had 2 surgeries, 2019 most recent ESOPHAGOGASTRODUODENOSCOPY last was done in [place], gastic tumor, INSULIN PUMP AND GLUCOSE SENSOR IR IVC FILTER PLACEMENT 2012 for Blood clots [place] LAPS INSERTION TUNNELED INTRAPERITONEAL CATHETER N/A 05/19/2024 [...] will continue to follow up with his toe laster in [place]. * Lay Clark MSW LSW - 06/16/2024 2:28 PM EDTAssociated Order(s): IP CONSULT TO CARE MANAGEMENT Care Management Consult Note Date: 06/16/2024 Time: 2:28 PM Patient Name: Lorenzo Amato Date of : 1970 Reason for Consult: Discharge Plan: Discharging Transportation Plan: Discharge Plan Status: Worker consulted to arrange OP HD schedule. Referral sent to [facility] for [facility] on [facility] under Dr. Fletcher. Assessment and Background Information: Living Arrangements: Spouse/significant other Support Systems: Spouse/significant other Assistance Needed: none Type of Residence: Private residence Prior to Admission Home Care Services: No * Mica Olivera PA-C - 06/16/2024 9:07 AM EDTAssociated Order(s): IP CONSULT TO INTERVENTIONAL RADIOLOGY Vascular & Interventional Radiology Provided By [facility] (Diagnostic Radiology, Interventional and Neurointerventional Radiology and Vascular Medicine) Interventional Radiology Department @ : [phone] 07/06 VIR physician contact: [phone]) Weekday VIR RICHARD contact @ [facility]: [phone] [facility]: [phone] www.[email or web address] [facility] [employer] INSTALLER SUPERVISOR DIRECTORY The consult was reviewed. The patient's chart was reviewed. The patient's H&P was reviewed. Lorenzo Amato is a 54 y.o. male patient of Lion Carlson MD with history of anemia, CAD, depression, diabetes mellitus, GERD, dyslipidemia, hypertension, MS, morbid obesity, NABOR, presented to [facility] on 06/15/2024 with groin swelling. Groin swelling bilaterally Anasarca ESRD on PD Patient started PD 4 days ago today presented complaining of bilateral groin pain after starting PD [employer] on board, for inpatient HD IR was [...] TBD by the VIR control desk @ [phone], once pertinent labs and anticoagulant medications have [...] dilation, stone removal) Venous interventions: intrathoracic and SUPERVISOR LUMP ROOM intervention PT/INR < 1.5 - 1.8 (if [...] ASSOCIATES Patient Name: Lorenzo Amato MR #: [id number] : 1970 Requesting physician: ER physician Reason [...] next 3 to 4 weeks. Recommend holding [facility] for now for tunneled dialysis catheter [...] 5 chronic kidney disease (HCC) not on dialysis...MANAGER BANQUET: Dr. Gracie Miller Venous embolism lungs and legs Vitamin D deficiency Past Surgical History: Procedure Laterality Date APPENDECTOMY COLONOSCOPY last was 2014, polyps, done in [place], 2 procdures CORONARY ANGIOPLASTY WITH STENT PLACEMENT has had 2 surgeries, 2019 most recent ESOPHAGOGASTRODUODENOSCOPY last was done in [place], gastic tumor, INSULIN PUMP AND GLUCOSE SENSOR IR IVC FILTER PLACEMENT 2012 for Blood clots [place] LAPS INSERTION TUNNELED INTRAPERITONEAL CATHETER N/A 05/19/2024 [...] Resource Strain: Low Risk (03/17/2024) Received from [facility] Overall Financial Resource Strain (CARDIA) Difficulty of Paying Living Expenses: Not very hard Food Insecurity: No Food Insecurity (03/17/2024) Received from [facility] Hunger Vital Sign Worried About Running Out of Food in the Last Year: Never true Ran Out of Food in the Last Year: Never true Transportation Needs: Unknown (03/17/2024) Received from [facility] PRAPARE - Transportation Lack of Transportation (Non-Medical): No Housing Stability: Unknown (03/17/2024) Received from [facility] Housing Stability Vital Sign In the last 12 months, was there a time when you did not have a steady place to sleep or slept in [facility] (including now)?: No [] Unable to [...] I have reviewed Progress Notes in the [facility] EHR and [facility]. [x] I have interpreted/reviewed lab tests and radiography data in the [facility] EHR. [x] I have discussed the case with the primary service. [x] I have ordered appropriate tests/labs Comments: Thank you for allowing us to participate in the care of this patient. We will continue to follow. Please call if questions or concerns arise. Potential limitations of the note: Parts of this note were created by dictation via voice recognition software ([employer]). The completed note was reviewed for accuracy. However, there may be subtle errors that were not found during the review. If such errors are discovered, or if there are any questions or concerns regarding the recommendations/plan of care, please contact the author of the note prior to undertaking the recommendations/plan of care. documented in this [id number] Note* Plan of Care - Herbie Mejia RN - 06/18/2024 9:31 PM EDT POC reviewed and continued [id number] Procedure note* Heather Granger RN - 06/17/2024 2:47 PM EDT Associated Order(s): HEMODIALYSIS INPATIENT Hemodialysis tx complete without complications over 3hrs using a 3k bath Tx start-08:23 Tx complete-11:24 Pre tx wt-135.1kg Post tx wt-132.6kg UF 2.5kg Post tx vitals-131/74 t-98.2 p-70 r-18 [id number] Consult note* Nick Watson, MARIA EUGENIA - 06/17/2024 6:22 AM EDTAssociated Order(s): IP CONSULT TO ENDOCRINOLOGY Patient ID: Patient Name: Lorenzo Amato Admit Date: 06/15/2024 MR #: [id number] : 1970 Current location: 2111 Physicians: Lion [...] basal rate. He follows with endocrinology in [facility]. Na: 131; Creat: 4.83; eGFR: 13. CBC: WBC: 8.16; Hgb: 7.3; Hct: 24.5; Plt: 196. Blood Glucoses: 06/16: 173---xxx---104---183 06/17: 276 Plan: 1. Rx changes: none Continue current pump settings. Patient plans to follow up with toe laster in [place] May consider U-500 in pump to aid [...] units/h. He followswith Dr. Hubert Nowak MD [facility] endocrinology. His last visit with their office was 04/26 when his hemoglobin A1c was 9.0%. Patient has taken Insulin for >5 years, started a pump in 2019. . Currently the patient is receiving insulin via pump with outpatient settings. Blood sugar levels since admission have been ranging from 104-276 mg/dL. Current monitoring regimen: home blood tests - >4 times daily with Genalyte sensor. Complications of diabetes include: Retinopathy: Negative [...] 5 chronic kidney disease (HCC) not on dialysis...MANAGER BANQUET: Dr. Gracie Miller Venous embolism lungs and legs Vitamin D deficiency Past Surgical History: Procedure Laterality Date APPENDECTOMY COLONOSCOPY last was 2014, polyps, done in [place], 2 procdures CORONARY ANGIOPLASTY WITH STENT PLACEMENT has had 2 surgeries, 2019 most recent ESOPHAGOGASTRODUODENOSCOPY last was done in [place], gastic tumor, INSULIN PUMP AND GLUCOSE SENSOR IR IVC FILTER PLACEMENT 2012 for Blood clots [place] LAPS INSERTION TUNNELED INTRAPERITONEAL CATHETER N/A 05/19/2024 [...] will continue to follow up with his toe laster in [place]. [id number] Note* Utilization Review - Rosina Leiva RN - 06/16/2024 7:50 PM EDT [facility] Utilization Review Notes HISTORY OF PRESENT ILLNESS:54 y.o. male patient of Lion Carlson MD with history of anemia, CAD, depression, diabetes mellitus, GERD, dyslipidemia, hypertension, MS, morbid obesity, NABOR, presented to [facility] on 06/15/2024 with groin swelling. Patient presented to the ER with lower extremityswelling with bilateral groin swelling for the last several days. He was seen by his wiring technician and was advised for admission for dialysis. [...] 13:34 194/94-19-82- 100 percent with 3L/NNC 13:40 182/42-77-13-106-100 percent with 3L/NC 19:60826/68-16-70-97.3-99 percent with 4L/NC EKG:none orders WEIGHT:(307 lb [...] ntains abnormal data Comprehensive Metabolic Panel Order: [id number] Status: Final result Visible to patient: Yes [...] of bilateral groin pain after starting PD [employer] on board, for inpatient HD IR was [...] ready for use DISPO:arrange OP HD schedule. [id number] Note* CDI Query - Mark Vasquez MD [...] determine Thank you, Naa OLIVEIRA, RN Clinical Weather Strip Mechanic [phone] (cell) After business hours you may contact Elvia Schmitt at [phone] (Weekdays until 10 PM and weekends 8 AM - 10 PM) [id number] Note* Plan of Care - Mis Neri [...] level of psychosocial functioning Outcome: Partially Met [id number] NotePROCEDURES: ULTRASOUND-GUIDED ACCESS OF RIGHT INTERNAL JUGULAR VEIN. TUNNELED DIALYSIS CATHETER PLACEMENT UNDER FLUOROSCOPIC GUIDANCE MODERATE CONSCIOUS SEDATION, 20 MINUTES HISTORY/CLINICAL DATA: End stage renal disease. The patient needs dialysis access. COMPARISON: None. SUPERVISOR PROCESS TESTING(S): Dariusz Modi MD, PhD ESTIMATED BLOOD LOSS: [...] without immediate complication. Catheter: 23 cm Med In[employer] tunneled dialysis catheter [id number] Consult note* Lay Clark MSW LSW - [...] Prior to Admission Home Care Services: No [id number] Procedure note* Dariusz Modi MD - 06/16/2024 2:00 PM EDT Vascular & Interventional Radiology Provided By [facility] FOR HEALTHCARE PROVIDER USE ONLY: Interventional Radiology Department @ [facility]: [phone] Interventional Radiology Department @ [facility]: [phone] Interventional Radiology Department @ : [phone] 07/06 VIR physician contact: [phone]) Weekday/weekend VIR nurse practitioner contact @ [facility]: [phone] FOR PATIENT AND PROVIDERS: [facility]: [phone] www.[email or web address] HISTORY: Renal failure PROCEDURE: Tunneled dialysis catheter [...] uvula, hard and soft palates are visualized [place] Protocol: Pre-Procedural verification: Correct patient, correct site and correct procedure confirmed. H&P or interval update complete and in medical record. Informed consent form completed and signed. Radiology images, labs and pathology reviewed with appropriate identifiers (when applicable). Site Marking: N/A Time Out: PERFORMED Complications: None Full report to follow [id number] History and physical note* Dariusz Modi MD - 06/16/2024 1:32 PM EDT Vascular & Interventional Radiology Provided By [facility] FOR PROVIDER USE ONLY: [facility] Interventional Radiology: [phone] [facility] Interventional Radiology: [phone] [facility] Interventional Radiology: [phone] 07/06 VIR physician contact: [phone]) Weekday/weekend VIR advanced practice provider at [facility]: [phone] FOR PATIENT AND PROVIDERS: [facility]: [phone] [email or web address] PRE PROCEDURE INTERVAL HISTORY AND PHYSICAL: Patient Name: Lorenzo Amato Admit Date: [id number] MR #: [id number] : 1970 Physicians: Lion Carlson MD (Family) [...] 5 chronic kidney disease (HCC) not on dialysis...MANAGER BANQUET: Dr. Gracie Miller Venous embolism lungs and legs Vitamin D deficiency Past Surgical History: Procedure Laterality Date APPENDECTOMY COLONOSCOPY last was 2014, polyps, done in [place], 2 procdures CORONARY ANGIOPLASTY WITH STENT PLACEMENT has had 2 surgeries, 2019 most recent ESOPHAGOGASTRODUODENOSCOPY last was done in [place], gastic tumor, INSULIN PUMP AND GLUCOSE SENSOR IR IVC FILTER PLACEMENT 2012 for Blood clots [place] LAPS INSERTION TUNNELED INTRAPERITONEAL CATHETER N/A 05/19/2024 [...] with HD catheter, as requested. Other: N/A [facility] Work Phone: 1(690) 548-382508-02-2024 History and physical note* Dariusz Modi MD - 06/16/2024 1:32 PM EDT Vascular & Interventional Radiology Provided By [facility] FOR PROVIDER USE ONLY: [facility] Interventional Radiology: [phone] [place] Interventional Radiology: [phone] [facility] Interventional Radiology: [phone] 07/06 VIR physician contact: [phone]) Weekday/weekend VIR advanced practice provider at [facility]: [phone] FOR PATIENT AND PROVIDERS: [facility]: [phone] [email or web address] PRE PROCEDURE INTERVAL HISTORY AND PHYSICAL: Patient Name: Lorenzo Amato Admit Date: [id number] MR #: [id number] : 1970 Physicians: Lion Carlson MD (Family) [...] 5 chronic kidney disease (HCC) not on dialysis...MANAGER BANQUET: Dr. Gracie Miller Venous embolism lungs and legs Vitamin D deficiency Past Surgical History: Procedure Laterality Date APPENDECTOMY COLONOSCOPY last was 2014, polyps, done in [place], 2 procdures CORONARY ANGIOPLASTY WITH STENT PLACEMENT has had 2 surgeries, 2019 most recent ESOPHAGOGASTRODUODENOSCOPY last was done in [place], gastic tumor, INSULIN PUMP AND GLUCOSE SENSOR IR IVC FILTER PLACEMENT 2012 for Blood clots [place] LAPS INSERTION TUNNELED INTRAPERITONEAL CATHETER N/A 05/19/2024 [...] Zelaya DO - 06/15/2024 5:09 PM EDT [facility] [place] [facility] -- [facility] Patient Name: Lorenzo Amato : 1970 MR #: [id number] Admit Date: 06/15/2024 Physicians: Lion Carlson MD (Family); Gracie Miller MD (Referring) Lorenzo Amato is a 54 y.o. male patient of Lion Carlson MD with history of anemia, CAD, depression, diabetes mellitus, GERD, dyslipidemia, hypertension, MS, morbid obesity, NABOR, presented to [facility] on 06/15/2024 with groin swelling. Groin swelling bilaterally Anasarca ESRD on PD Patient started PD 4 days ago today presented complaining of bilateral groin pain after starting PD [employer] on board, for inpatient HD IR was [...] [facility] no Quality Measures DVT [...] hypertension, MS, morbid obesity, NABOR, presented to [facility] on 06/15/2024 with groin swelling. Patient presented to the ER with lower extremity swellingwith bilateral groin swelling for the last several days. He was seen by his wiring technician and was advised for admission for dialysis. [...] 5 chronic kidney disease (HCC) not on dialysis...MANAGER BANQUET: Dr. Gracie Miller Venous embolism lungs and legs Vitamin D deficiency Past Surgical History Past Surgical History: Procedure Laterality Date APPENDECTOMY COLONOSCOPY last was 2014, polyps, done in [place], 2 procdures CORONARY ANGIOPLASTY WITH STENT PLACEMENT has had 2 surgeries, 2019 most recent ESOPHAGOGASTRODUODENOSCOPY last was done in [place], gastic tumor, INSULIN PUMP AND GLUCOSE SENSOR IR IVC FILTER PLACEMENT 2012 for Blood clots [place] LAPS INSERTION TUNNELED INTRAPERITONEAL CATHETER N/A 05/19/2024 [...] normal mood and affect documented in this [id number] Consult note* Mica Olivera PA-C - 06/16/2024 9:07 AM EDTAssociated Order(s): IP CONSULT TO INTERVENTIONAL RADIOLOGY Vascular & Interventional Radiology Provided By [facility] (Diagnostic Radiology, Interventional and Neurointerventional Radiology and Vascular Medicine) Interventional Radiology Department @ : [phone] 07/06 VIR physician contact: [phone]) day VIR RICHARD contact @ [facility]: [phone] [facility]: [phone] www.[employer] [facility] [employer] INST[employer]ER SUPERVISOR DIRECTORY The consult was reviewed. The patient's chart was reviewed. The patient's H&P was reviewed. Lorenzo Amato is a 54 y.o. male patient of Lion Carlson MD with history of anemia, CAD, depression, diabetes mellitus, GERD, dyslipidemia, hypertension, MS, morbid obesity, NABOR, presented to [facility] on 06/15/2024 with groin swelling. Groin swelling bilaterally Anasarca ESRD on PD Patient started PD 4 days ago today presented complaining of bilateral groin pain after starting PD [employer] on board, for inpatient HD IR was [...] TBD by the VIR control desk @ [phone], once pertinent labs and anticoagulant medications have [...] dilation, stone removal) Venous interventions: intrathoracic and SUPERVISOR LUMP ROOM intervention PT/INR < 1.5 - 1.8 (if [...] to balance bleeding vs. thrombotic risks. [facility] Work Phone: 1(843) 794-908908-02-2024 Note* Plan of Care - Talia Beckford RN - 06/16/2024 5:37 AM EDT POC initiated [id number] Emergency department Note* Ernestina Navarro RN - 06/15/2024 7:52 PM EDT IV NURSE CART SIDE AT THIS TIME. [id number] Emergency department Note* Ernestina Navarro RN - [...] pt is stage 5. Pt moved to [place], [place] so continues to drive to [place]. * Arleen Lockhart RN - 06/15/2024 5:24 PM EDT Bed: 19 Expected date: Expected time: Means of arrival: Comments: NEXT * Deng Palacios DO - 06/15/2024 4:58 PM EDT [facility] EMERGENCY DEPARTMENT ATTENDING NOTE: NAME: Lorenzo Amato CSN: [id number] 54 y.o. PCP: Lion Carlson MD History: [...] fluid in his groin region extremities. The wiring technician was bedside and request that the patient [...] 5 chronic kidney disease (HCC) not on dialysis...MANAGER BANQUET: Dr. Gracie Miller Venous embolism lungs and legs Vitamin D deficiency PMSx: Past Surgical History: Procedure Laterality Date APPENDECTOMY COLONOSCOPY last was 2015, polyps, done in [place], 2 procdures CORONARY ANGIOPLASTY WITH STENT PLACEMENT has had 2 surgeries, 2019 most recent ESOPHAGOGASTRODUODENOSCOPY last was done in [place], gastic tumor, INSULIN PUMP AND GLUCOSE SENSOR IR IVC FILTER PLACEMENT 2012 for Blood clots [place] LAPS INSERTION TUNNELED INTRAPERITONEAL CATHETER N/A 05/19/2024 [...] Resource Strain: Low Risk (03/17/2024) Received from [facility] Overall Financial Resource Strain (CARDIA) Difficulty of Paying Living Expenses: Not very hard Food Insecurity: No Food Insecurity (03/17/2024) Received from [facility] Hunger Vital Sign Worried About Running Out of Food in the Last Year: Never true Ran Out of Food in the Last Year: Never true Transportation Needs: Unknown (03/17/2024) Received from [facility] PRAPARE - Transportation Lack of Transportation (Non-Medical): No Housing Stability: Unknown (03/17/2024) Received from [facility] Housing Stability Vital Sign In the last 12 months, was there a time when you did not have a steady place to sleep or slept in [facility] (including now)?: No MEDs: Previous Medications [...] Procedure Abnormality Status --------- ------ CBC Auto Differential[[id number]] Please view results for these tests on [...] Date Noted ESRF (end stage renal failure) ([facility]) 05/01/2024 Essential hypertension 03/09/2013 CAD (coronary artery disease) 10/01/2011 Diabetes mellitus ([facility]) 03/09/2013 Generalized anxiety disorder 02/14/2016 GERD (gastroesophageal reflux disease) 02/04/2012 Mixed hyperlipidemia 10/01/2011 NABOR (obstructive sleep apnea) 10/01/2011 Neuroendocrine tumor 2024 Presence of IVC filter 2024 MS (multiple sclerosis) ([facility]) 2024 Preop examination 2024 Resolved Ambulatory Problems Diagnosis Date Noted No Resolved Ambulatory Problems Past Medical History: Diagnosis Date Anemia Arthritis Coronary artery disease COVID Depression with anxiety Diabetes mellitus, type 2 ([facility]) Dyspnea on exertion Gastric tumor Hyperlipidemia Hypertension [...] fluid in his groin region extremities. The wiring technician was bedside and request that the patient [...] Deng Palacios DO, DO ED Attending Physician [facility] EMERGENCY DEPARTMENT Deng Palacios DO 06/15/24 1659 [...] IN TO BEEN EVALUATED. documented in this [id number] Emergency department Note* Ernestina Navarro RN - 06/15/2024 7:51 PM EDT REPORT GIVEN TO UNIT NURSE AT THIS TIME BY ALEJANDRO LOZANO. [id number] Emergency department Note* Ernestina Navarro RN - 06/15/2024 7:39 PM EDT Hourly rounding assessment completed on the patient. [x] Patient updated on plan of care [x] All comfort needs addressed [x] Patient updated on duration of visit All questions answered, patient denies further needs. Call light within reach. US IV nurse called at this time to obtain US IV. [id number] Emergency department Note* Bailey Santillan RN - 06/15/2024 6:30 PM EDT Iv attempt x5 unsuccessful by diff staff. [id number] Emergency department Triage note* Bailey Santillan RN [...] pt is stage 5. Pt moved to [place], [place] so continues to drive to [place]. [id number] Emergency department Note* Arleen Lockhart RN - 06/15/2024 5:24 PM EDT Bed: 19 Expected date: Expected time: Means of arrival: Comments: NEXT [id number] Consult note* Delroy Fletcher MD - 06/15/2024 5:14 PM EDTAssociated Order(s): IP CONSULT TO NEPHROLOGY NEPHROLOGY CONSULTATION NOTE [facility] Patient Name: Lorenzo Amato MR #: [id number] : 1970 Requesting physician: ER physician Reason [...] 5 chronic kidney disease (HCC) not on dialysis...MANAGER BANQUET: Dr. Gracie Miller Venous embolism lungs and legs Vitamin D deficiency Past Surgical History: Procedure Laterality Date APPENDECTOMY COLONOSCOPY last was 2015, polyps, done in [place], 2 procdures CORONARY ANGIOPLASTY WITH STENT PLACEMENT has had 2 surgeries, 2019 most recent ESOPHAGOGASTRODUODENOSCOPY last was done in [place], gastic tumor, INSULIN PUMP AND GLUCOSE SENSOR IR IVC FILTER PLACEMENT 2012 for Blood clots [place] LAPS INSERTION TUNNELED INTRAPERITONEAL CATHETER N/A 05/19/2024 [...] Resource Strain: Low Risk (03/17/2024) Received from [facility] Overall Financial Resource Strain (CARDIA) Difficulty of Paying Living Expenses: Not very hard Food Insecurity: No Food Insecurity (03/17/2024) Received from [facility] Hunger Vital Sign Worried About Running Out of Food in the Last Year: Never true Ran Out of Food in the Last Year: Never true Transportation Needs: Unknown (03/17/2024) Received from [facility] PRAPARE - Transportation Lack of Transportation (Non-Medical): No Housing Stability: Unknown (03/17/2024) Received from [facility] Housing Stability Vital Sign In the [...] I have reviewed Progress Notes in the [facility] EHR and CareEverywhere. [x] I have interpreted/reviewed lab tests and radiography data in the [facility] E[facility]. [x] I have discussed the case with the primary service. [x] I have ordered appropriate tests/labs Comments: Thank you for allowing us to participate in the care of this patient. We will continue to follow. Please call if questions or concerns arise. Potential limitations of the note: Parts of this note were created by dictation via voice recognition software ([employer]). The completed note was reviewed for accuracy. However, there may be subtle errors that were not found during the review. If such errors are discovered, or if there are any questions or concerns regarding the recommendations/plan of care, please contact the author of the note prior to undertaking the recommendations/plan of care. [id number] History and physical note* Sherman Zelaya DO - 06/15/2024 5:09 PM EDT [facility] Patient Name: Lorenzo Amato : 1970 MR #: [id number] Admit Date: 06/15/2024 Physicians: Lion Carlson MD (Family); Gracie Miller MD (Referring) Lorenzo Amato is a 54 y.o. male patient of Lion Carlson MD with history of anemia, CAD, depression, diabetes mellitus, GERD, dyslipidemia, hypertension, MS, morbid obesity, NABOR, presented to [facility] on 06/15/2024 with groin swelling. Groin swelling bilaterally Anasarca ESRD on PD Patient started PD 4 days ago today presented complaining of bilateral groin pain after starting PD [employer] on board, for inpatient HD IR was [...] hypertension, MS, morbid obesity, NABOR, presented to [facility] on 06/15/2024 with groin swelling. Patient presented to the ER with lower extremity swellingwith bilateral groin swelling for the last several days. He was seen by his wiring technician and was advised for admission for dialysis. [...] 5 chronic kidney disease (HCC) not on dialysis...MANAGER BANQUET: Dr. Gracie Miller Venous embolism lungs and legs Vitamin D deficiency Past Surgical History Past Surgical History: Procedure Laterality Date APPENDECTOMY COLONOSCOPY last was 2014, polyps, done in [place], 2 procdures CORONARY ANGIOPLASTY WITH STENT PLACEMENT has had 2 surgeries, 2019 most recent ESOPHAGOGASTRODUODENOSCOPY last was done in [place], gastic tumor, INSULIN PUMP AND GLUCOSE SENSOR IR IVC FILTER PLACEMENT 2012 for Blood clots [place] LAPS INSERTION TUNNELED INTRAPERITONEAL CATHETER N/A 05/19/2024 [...] normal coloration Psych: normal mood and affect [id number] Physician Emergency department Note* Deng Palacios DO - 06/15/2024 4:58 PM EDT [facility] EMERGENCY DEPARTMENT ATTENDING NOTE: NAME: Lorenzo Amato CSN: [id number] 54 y.o. PCP: Lion Carlson MD History: [...] fluid in his groin region extremities. The wiring technician was bedside and request that the patient [...] 5 chronic kidney disease (HCC) not on dialysis...MANAGER BANQUET: Dr. Gracie Miller Venous embolism lungs and legs Vitamin D deficiency PMSx: Past Surgical History: Procedure Laterality Date APPENDECTOMY COLONOSCOPY last was 2014, polyps, done in [place], 2 procdures CORONARY ANGIOPLASTY WITH STENT PLACEMENT has had 2 surgeries, 2019 most recent ESOPHAGOGASTRODUODENOSCOPY last was done in [place], gastic tumor, INSULIN PUMP AND GLUCOSE SENSOR IR IVC FILTER PLACEMENT 2012 for Blood clots [place] LAPS INSERTION TUNNELED INTRAPERITONEAL CATHETER N/A 05/19/2024 [...] Resource Strain: Low Risk (03/17/2024) Received from [facility] Overall Financial Resource Strain (CARDIA) Difficulty of Paying Living Expenses: Not very hard Food Insecurity: No Food Insecurity (03/17/2024) Received from [facility] Hunger Vital Sign Worried About Running Out of Food in the Last Year: Never true Ran Out of Food in the Last Year: Never true Transportation Needs: Unknown (03/17/2024) Received from [facility] PRAPARE - Transportation Lack of Transportation (Non-Medical): No Housing Stability: Unknown (03/17/2024) Received from [facility] Housing Stability Vital Sign In the last 12 months, was there a time when you did not have a steady place to sleep or slept in [facility] (including now)?: No MEDs: Previous Medications [...] Procedure Abnormality Status --------- ------ CBC Auto Differential[[id number]] Please view results for these tests on [...] Date Noted ESRF (end stage renal failure) ([facility]) 05/01/2024 Essential hypertension 03/09/2013 CAD (coronary artery disease) 10/01/2011 Diabetes mellitus ([facility]) 03/09/2013 Generalized anxiety disorder 02/14/2016 GERD (gastroesophageal reflux disease) 02/04/2012 Mixed hyperlipidemia 10/01/2011 NABOR (obstructive sleep apnea) 10/01/2011 Neuroendocrine tumor 2024 Presence of IVC filter 2024 MS (multiple sclerosis) ([facility]) 2024 Preop examination 2024 Resolved Ambulatory Problems Diagnosis Date Noted No Resolved Ambulatory Problems Past Medical History: Diagnosis Date Anemia Arthritis Coronary artery disease COVID Depression with anxiety Diabetes mellitus, type 2 ([facility]) Dyspnea on exertion Gastric tumor Hyperlipidemia Hypertension Obesity Proteinuria Rash Stage 5 chronic kidney disease ([facility]) Venous embolism Vitamin D deficiency ED MEDICATIONS [...] fluid in his groin region extremities. The wiring technician was bedside and request that the patient [...] Deng Palacios DO, DO ED Attending Physician [facility] EMERGENCY DEPARTMENT Deng Palacios DO 06/15/24 1659 [id number] Emergency department Triage note* Chaka Vogt, ALEJANDRO - 06/15/2024 3:23 PM EDT PATIENT PRESENTS TO THE ED FROM HOME FOR RIGHT SIDED GROIN SWELLING HE HAS BEEN TRAINING FOR AT HOME PERITONEAL DIALYSIS. AFTER PLACING IN FLUID TODAY, PATIENT FELT SWELLING ON THE RIGHT SIDE OF HIS GRAIN. DR. MILLER RECOMMENDED HE COME IN TO BEEN EVALUATED. [id number] NoteOFFICE VISIT REASON FOR VISIT F/u after lap PD cath insertion. Subjective No complaints. Vitals BP 131/68 Pulse 72 Wt (!) 138.3 kg (305 lb) BMI 45.04 kg/m Exam Alert, NAD, cooperative, in a wheelchair. Abd: incisions healing well. Labs, Imaging, Pathology Assessment / Plan / Follow-up Renal failure. Doing well after PD catheter insertion. F/u PRN. AUTHENTICATED BY BRIAN AREVALO, ON 06/12/2024 17:00:[address] [place] [address] Ambulatory 06-12-2024 History of Present illness Narrative* [...] catheter insertion. F/u PRN. documented in this [id number] Note* Addendum Note - Brian Arevalo MD - 05/11/2024 5:10 PM EDTAddended by: BRIAN AREVALO on: 05/11/2024 05:10 PM Modules accepted: Orders [id number] Note* Addendum Note - Brian Arevalo MD - 05/11/2024 5:10 PM EDTAddended by: BRIAN AREVALO on: 05/11/2024 05:10 PM Modules accepted: Orders [id number] Miscellaneous Notes* Addendum Note - Brian Arevalo MD - 05/11/2024 5:10 PM EDTAddended by: BRIAN AREVALO on: 05/11/2024 05:10 PM Modules accepted: Orders documented in this [id number] NoteOFFICE VISIT REASON FOR VISIT F/u after [...] Discussion with Oncology and Nephrology as above. [employer] AUTHENTICATED BY BRIAN AREVALO, ON 05/01/2024 14:00:[address] [place] [address] Ambulatory 05-01-2024 History of Present illness Narrative* [...] Discussion with Oncology and Nephrology as above. [employer] Lif[employer] documented in this [id number] History of Present illness Narrative* Brian Arevalo [...] Discussion with Oncology and Nephrology as above. [employer]ened Lifestyle documented in this [id number] History of Present illness Narrative* Brian Arevalo [...] years and most of it is at [place] / [place]. I could not find anything recently on [...] 5 chronic kidney disease (HCC) not on dialysis...MANAGER BANQUET: Dr. Gracie Miller Venous embolism lungs and legs Vitamin D deficiency Past Surgical History: Procedure Laterality Date APPENDECTOMY COLONOSCOPY last was 2014, polyps, done in [place], 2 procdures CORONARY ANGIOPLASTY WITH STENT PLACEMENT has had 2 surgeries, 2019 most recent ESOPHAGOGASTRODUODENOSCOPY last was done in [place], gastic tumor, INSULIN PUMP AND GLUCOSE SENSOR [...] Answered [x] Location [] [facility] [] [facility] ORDERS / F/U F/u after CT scan [employer] Lifestyle PROBLEMS ADDRESSED & THEIR COMPLEXITY New undiagnosed [...] CT scan and review Care Everywhere from [facility] and from [facility] Enlightened Lifestyle documented in this [id number] NotePATIENT: Lorenzo Amato : 1970 AGE: 53 [...] years and most of it is at [place] / [place]. I could not find anything recently on [...] 5 chronic kidney disease (HCC) not on dialysis...MANAGER BANQUET: Dr. Gracie Miller Venous embolism lungs and legs Vitamin D deficiency Past Surgical History: Procedure Laterality Date APPENDECTOMY COLONOSCOPY last was 2014, polyps, done in [place], 2 procdures CORONARY ANGIOPLASTY WITH STENT PLACEMENT has had 2 surgeries, 2019 most recent ESOPHAGOGASTRODUODENOSCOPY last was done in [place], gastic tumor, INSULIN PUMP AND GLUCOSE SENSOR [...] Questions Answered [x] Location [] [facility] [] [facility] (more content not included)...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 Exercise Target Goal: -Individual Exercise [...] Prep [] Relapse Intervention: [] Psych Consult/social media coordinator [x] Uses stress management skills [] Physician [...] Staff JOSHUA BARRERA RRT documented in this encounterInfogram Phone: evaluation note* Diagnosis Carcinoid tumor of stomach, unspecified whether malignant- Primary documented in this encounter [employer]: evaluation note* Diagnosis Carcinoid tumor of stomach, unspecified whether malignant- Primary documented in this encounter [employer]: evaluation note* Diagnosis Carcinoid tumor of stomach, 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 documented in this encounter [employer]: evaluation note* Diagnosis Carcinoid tumor of stomach, unspecified whether malignant- Primary documented in this encounter [employer]: evaluation note* Diagnosis Carcinoid tumor of stomach, unspecified whether malignant- Primary documented in this encounter [employer]: evaluation note* Diagnosis 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) Type II or unspecified type diabetes mellitus with renal manifestations, uncontrolled documented in this encounter [employer]: [id number] note* Diagnosis Carcinoid tumor of stomach, unspecified whether malignant- Primary documented in this encounter [employer]: evaluation note* Diagnosis Carcinoid tumor of stomach, unspecified whether malignant- Primary documented in this encounter [employer]: evaluation note* Diagnosis Carcinoid tumor of stomach, unspecified whether malignant- Primary documented in this encounter [employer]: evaluation note* Diagnosis 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 documented in this encounter [employer]: evaluation note* Diagnosis 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) Type II or unspecified type diabetes mellitus with renal manifestations, uncontrolled Vitamin D deficiency Unspecified vitamin D deficiency Mixed hyperlipidemia Coronary artery disease involving [place] coronary artery of 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 angina pectoris Fatigue, unspecified type Shortness of breath NABOR (obstructive sleep apnea) Obstructive sleep apnea (adult) (pediatric) Benign essential HTN Essential hypertension, benign documented in this encounter [employer]: evaluation note* Diagnosis Carcinoid tumor of stomach, unspecified whether malignant- Primary documented in this encounter [employer]: evaluation note* Diagnosis Vitamin D deficiency Unspecified vitamin D deficiency Mixed hyperlipidemia Coronary artery disease involving [place] coronary artery of 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 angina pectoris Fatigue, unspecified type Shortness of breath NABOR (obstructive sleep apnea) Obstructive sleep apnea (adult) (pediatric) Benign essential HTN Essential hypertension, benign documented in this encounter [employer]: evaluation note* Diagnosis Vitamin D deficiency Unspecified vitamin D deficiency Mixed hyperlipidemia Coronary artery disease involving [place] coronary artery of 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 angina pectoris Fatigue, unspecified type Shortness of breath NABOR (obstructive sleep apnea) Obstructive sleep apnea (adult) (pediatric) Benign essential HTN Essential hypertension, benign documented in this encounter [employer]: evaluation note* Diagnosis Carcinoid tumor of stomach, unspecified whether malignant- Primary documented in this encounter [employer]: evaluation note* Diagnosis 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) Type II or unspecified type diabetes mellitus with renal manifestations, uncontrolled documented in this encounter [employer]: evaluation note* Diagnosis Mixed hyperlipidemia documented in this encounter [employer]: evaluation note* Diagnosis 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 documented in this encounter [employer]: evaluation note* Diagnosis Carcinoid tumor of stomach, unspecified whether malignant- Primary documented in this encounter [employer] Phone: evalxpentg note* Diagnosis Poorly controlled type 2 diabetes mellitus with complication (HCC) Type II or unspecified type diabetes mellitus with unspecified complication, not stated as uncontrolled documented in this encounter [employer]: evaluation note* Diagnosis Controlled type 2 diabetes mellitus without complication, with long-term current use of insulin (HCC) documented in this encounter [employer]: evaluation note* Diagnosis Carcinoid tumor of stomach, unspecified whether malignant- Primary documented in this encounter [employer]: evaluation note* Diagnosis Carcinoid tumor of stomach, unspecified whether malignant Poorly controlled type 2 diabetes mellitus with complication (HCC) Type II or unspecified type diabetes mellitus with unspecified complication, not stated as uncontrolled documented in this encounter [employer]: evaluation note* Diagnosis Carcinoid tumor of stomach, unspecified whether malignant- Primary documented in this encounter [employer]: evaluation note* Diagnosis Vitamin D deficiency Unspecified vitamin D deficiency Mixed hyperlipidemia Coronary artery disease involving mus[place] coronary artery of 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 angina pectoris Benign essential HTN Essential hypertension, benign documented in this encounter [employer]: evaluation note* Diagnosis Vitamin D deficiency Unspecified vitamin D deficiency Mixed hyperlipidemia Coronary artery disease involving [place] coronary artery of 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 angina pectoris Benign essential HTN Essential hypertension, benign documented in this encounter [employer]: evaluation note* Diagnosis Carcinoid tumor of stomach, unspecified whether malignant- Primary documented in this encounter [employer] [facility]Corrid[facility] Pharmaceuticalssaint francis healthcare note* Diagnosis Carcinoid tumor of stomach, unspecified whether malignant- Primary documented in this encounter [facility] [employer] [facility]* Diagnosis End stage renal disease (HCC)- Primary End stage renal disease documented [facility] this encounter [facility]* Diagnosis GIST, non-malignant- Primary Other benign neoplasm of connective and other soft tissue of abdomen documented in this encounter [facility]* Diagnosis ESRF (end stage renal failure) (HCC)- Primary End stage renal disease documented in this encounter [facility] note* Diagnosis ESRF (end stage renal failure) (HCC)- Primary End stage renal disease documented in this encounter [facility]* Diagnosis ESRF (end stage renal failure) (HCC)- Primary End stage renal disease documented in this encounter [facility] note* Diagnosis Carcinoid tumor of stomach, unspecified whether malignant- Primary documented in this encounter [facility]* Diagnosis ESRF (end stage renal failure) (HCC)- Primary End stage renal disease documented in this encounter [facility] note* Diagnosis Groin swelling- Primary Abdominal or pelvic swelling, mass or lump, unspecified site Fluid retention Fluid overload S/P PTCA (percutaneous transluminal coronary angioplasty) Postsurgical percutaneous transluminal coronary angioplasty status documented in this encounter [facility] note* Diagnosis Carcinoid tumor of stomach, unspecified whether malignant- Primary documented in this encounter [facility] HospitalEvalus[facility] note* Diagnosis Poorly controlled type 2 diabetes mellitus with complication (HCC) Type II or unspecified type diabetes mellitus with unspecified complication, not stated as uncontrolled Other iron deficiency anemia Carcinoid tumor of stomach, 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) Secondary malignant neoplasm of liver documented in this encounter [facility] HospitalEvalusaint [facility] note* Diagnosis Vitamin D deficiency Unspecified vitamin D deficiency Mixed hyperlipidemia Coronary artery disease involving mus[place] coronary artery of 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 angina pectoris Benign essential HTN Essential hypertension, benign SOB (shortness of breath) Shortness of breath documented in this encounter [facility] HospitalEvalusaint [facility] note* Diagnosis Carcinoid tumor of stomach, unspecified whether malignant- Primary documented in this encounter [facility] HospitalC[facility] [employer] [facility]Evalus[facility]* Diagnosis Carcinoid tumor of stomach, unspecified whether malignant- Primary documented in this encounter [facility]* Diagnosis NSTEMI (non-ST elevated myocardial infarction) (HCC)- Primary Acute myocardial infarction, subendocardial infarction, episode of care unspecified NSTEMI (non-ST elevated myocardial infarction) (HCC) Acute myocardial infarction, subendocardial infarction, episode of care unspecified Coronary artery disease with angina pectoris, unspecified vessel or lesion type, unspecified whether muscogee or transplanted heart Carcinoid tumor of stomach [...] hyperlipidemia Morbid obesity due to excess calories NBAOR (obstructive sleep apnea) Obstructive sleep apnea (adult) (pediatric) Type 2 diabetes mellitus with hyperglycemia Type II or unspecified type diabetes mellitus without mention of complication, not stated as uncontrolled 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 dialysis 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 NSTEMI (non-ST elevated myocardial infarction) (HCC) Acute myocardial infarction, subendocardial infarction, episode of care unspecified NSTEMI (non-ST elevated myocardial infarction) (HCC) Acute myocardial infarction, subendocardial infarction, episode of care unspecified Coronary artery disease with angina pectoris, unspecified vessel or lesion type, unspecified whether mus[place] or transplanted heart documented in this encounter [facility]Eth[facility] Electricat[facility] health note* Diagnosis Poorly controlled type 2 diabetes mellitus with complication (HCC) Type II or unspecified type diabetes mellitus with unspecified complication, not stated as uncontrolled documented in this encounter [facility]Ethical [facility]* Diagnosis Carcinoid tumor of stomach, unspecified whether malignant (HCC) [facility] Diagnosis Benign essential HTN- Primary Essential hypertension, benign Multiple sclerosis (HCC) Multiple sclerosis CAD in muscogee artery Coronary atherosclerosis of muscogee coronary artery CKD (chronic kidney disease) stage [...] malignant (HCC)- Primary [facility] Diagnosis Benign essential HTN- Primary Essential hypertension, benign Multiple sclerosis (HCC) Multiple sclerosis CAD in muscogee artery Coronary atherosclerosis of muscogee coronary artery CKD (chronic kidney disease) stage [...] stated as uncontrolled documented in this encounter [facility]* Diagnosis Benign essential HTN- Primary Essential hypertension, benign Multiple sclerosis (HCC) Multiple sclerosis CAD in muscogee artery Coronary atherosclerosis of muscogee coronary artery CKD (chronic kidney disease) stage [...] malignant (HCC)- Primary documented in this encounter [employer] note* Diagnosis Benign essential HTN- Primary Essential hypertension, benign Multiple sclerosis (HCC) Multiple sclerosis CAD in muscogee artery Coronary atherosclerosis of muscogee coronary artery CKD (chronic kidney disease) stage [...] malignant (HCC)- Primary documented in this encounter [facility]* Diagnosis Benign essential HTN- Primary Essential hypertension, benign Multiple sclerosis (HCC) Multiple sclerosis CAD in muscogee artery Coronary atherosclerosis of muscogee coronary artery CKD (chronic kidney disease) stage 4, GFR 15-29 ml/min ([facility]) Chronic kidney disease, Stage IV (severe) Mixed hyperlipidemia Gastroesophageal reflux disease without esophagitis Esophageal reflux Vitamin D deficiency Unspecified vitamin D deficiency NABOR (obstructive sleep apnea) Obstructive sleep apnea (adult) (pediatric) NSTEMI (non-ST elevated myocardial infarction) (HCC) Acute myocardial infarction, subendocardial infarction, episode of care unspecified Primary osteoarthritis of both knees Primary localized osteoarthrosis, lower leg documented in this encounter [facility] note* Diagnosis Benign essential HTN- Primary Essential hypertension, benign Multiple sclerosis (HCC) Multiple sclerosis CAD in muscogee artery Coronary atherosclerosis of muscogee coronary artery CKD (chronic kidney disease) stage 4, GFR 15-29 ml/min ([facility]) Chronic kidney disease, Stage IV (severe) Mixed hyperlipidemia Gastroesophageal reflux disease without esophagitis Esophageal reflux Vitamin D deficiency Unspecified vitamin D deficiency NABOR (obstructive sleep apnea) Obstructive sleep apnea (adult) (pediatric) NSTEMI (non-ST elevated myocardial infarction) (HCC) Acute myocardial infarction, subendocardial infarction, episode of care unspecified Carcinoid tumor of stomach, unspecified whether malignant (HCC)- Primary documented in this encounter [facility] note* Diagnosis Gastroesophageal reflux disease, unspecified [...] type, unspecified whether angina present, unspecified whether muscogee or transplanted heart MS (multiple sclerosis) Multiple sclerosis Preop examination Unspecified pre-operative examination S/P TAVR (transcatheter aortic valve replacement)- Primary documented in this encounter [facility] Discharge instructions* Attachments The following attachments cannot be sent through Care Everywhere. * Blood Transfusions: [facility] ([place] Attachments The following attachments cannot be sent through Care Everywhere. * Blood Transfusions: General Info (Iraqi) [facility]* Attachments The following attachments cannot be sent through Care Everywhere. * Blood Transfusions: General Info (Iraqi) [facility]* Attachments The following attachments cannot be sent through Care Everywhere. * Blood Transfusions: General Info (Iraqi) [facility]* Attachments The following attachments cannot be sent through Care Everywhere. * Blood Transfusions: [facility] Info (Iraqi) [facility] Consultation (Routine) - Pending ReviewSpecialtyDiagnoses / ProceduresReferred By ContactReferred To ContactGeneral Surgery Diagnoses End stage renal disease (HCC) Gracie Miller MD [address] [place] [address] [facility] [facility] Office Building, 5th [place] [address] Referral IDStatusReasonStart DateExpiration DateVisits RequestedVisits [id number] Review Specialty Services Required/Patient's Best Interest / [facility] for visit Narrative* Treatment Plan (Routine)StatusReason SpecialtyDiagnoses / ProceduresReferred By ContactReferred To Contact Authorized Diagnoses Carcinoid tumor of stomach, unspecified whether malignant Procedures Maria Teresa Gómez MD [address] [place] [address] [facility] [address] [place] [address] [facility] Phone: reason for visit Narrative* Treatment Plan and Therapy Plan (Routine) - AuthorizedSpecialtyDiagnoses / ProceduresReferred By Contact Referred To Contact Diagnoses Carcinoid tumor of stomach, unspecified whether malignant Procedures Maria Teresa Gómez MD [address] [place] [address] [facility] [address] [place], [place] [phone] Referral IDStatusReasonStart DateExpiration DateVisits RequestedVisits [id number]/1/20178/20/[id number] [facility] Phone: reason for visit Narrative* Treatment Plan and Therapy Plan (Routine) - AuthorizedSpecialtyDiagnoses / ProceduresReferred By Contact Referred To Contact Diagnoses Carcinoid tumor of stomach, unspecified whether malignant Procedures Maria Teresa Gómez MD [address] [place] [address] [facility] [address] [place] [address] Referral IDStatusReasonStart DateExpiration DateVisits RequestedVisits [id number]/1/20178/[id number] [facility] Phone: reason for visit Narrative* Treatment Plan (Routine) StatusReasonSpecialtyDiagnoses / ProceduresReferred By ContactReferred To ContactAuthorized Diagnoses Carcinoid tumor of stomach, unspecified whether malignant Procedures Maria Teresa Gómez MD [address] [address] [facility] [address] [place] [address] [facility] Phone: reason for visit Narrative* Treatment Plan and Therapy Plan (Routine) - AuthorizedSpecialtyDiagnoses / ProceduresReferred By Contact Referred To Contact Diagnoses Carcinoid tumor of stomach, unspecified whether malignant Procedures Maria Teresa Gómez MD [address] [place] [address] [facility] [address] [place] [address] Referral IDStatusReasonStart DateExpiration DateVisits RequestedVisits [id number]/1/20178/20/[id number] ALEXUS GARCIA [facility] for visit Narrative* Treatment Plan and Therapy Plan (Routine) - AuthorizedSpecialtyDiagnoses / ProceduresReferred By Contact Referred To Contact Diagnoses Carcinoid tumor of stomach, unspecified whether malignant Procedures [place] OCTREOTIDE INJECTION, DEPOT Trevor Serna MD [address] [place] [address] [facility] [address] [place] [address] Referral IDStatusReasonStart DateExpiration DateVisits RequestedVisits [id number]/3/202311/2/20241010 [facility] for visit Narrative* Treatment Plan and Therapy Plan (Routine) - OpenSpecialtyDiagnoses / ProceduresReferred By Contact Referred To Contact Diagnoses Carcinoid tumor of stomach, unspecified whether malignant Procedures [place] OCTREOTIDE INJECTION, DEPOT Trevor Serna MD [address] [place] [address] [facility] [address] [place] [address] Referral IDStatusReasonStart DateExpiration DateVisits RequestedVisits [id number]/3/202311/2/20241010 [facility] for visit Narrative* Treatment Plan and Therapy Plan (Routine) - OpenSpecialtyDiagnoses / ProceduresReferred By Contact Referred To Contact Diagnoses Carcinoid tumor of stomach, unspecified whether malignant (HCC) Procedures [place] OCTREOTIDE INJECTION, DEPOT Trevor Serna MD [address] [place] [address] [facility] [address] [place] [address] Referral IDStatusReasonStart DateExpiration DateVisits RequestedVisits [id number]/3/202311/2/20241010 [facility] for visit Narrative* Auth/CertSpecialtyDiagnoses / ProceduresReferred By ContactReferred To Contact Diagnoses NSTEMI (non-ST elevated myocardial infarction) (HCC) NTEMI, Elevated troponin Maria Teresa Constantino I, DO [address] [place] [address] Phone: tel: fax: [facility] [address] [place] [address] Referral IDStatusReasonStart DateExpiration DateVisits RequestedVisits [id number] [facility] for visit Narrative* Treatment Plan and Therapy Plan (Routine) - OpenSpecialtyDiagnoses / ProceduresReferred By Contact Referred To Contact Diagnoses Carcinoid tumor of stomach, unspecified whether malignant (HCC) Procedures [place] OCTREOTIDE INJECTION, DEPOT Trevor Serna MD [address] [place] [address] Phone: tel: [facility] [address] [place] [address] Phone: tel: Referral IDStatusReasonStgainesville DateExpiration DateVisits RequestedVisits [id number] [facility] for visit Narrative* Eval and Treat (Routine) - OpenSpecialtyDiagnoses / ProceduresReferred By ContactReferred To Contact Cardiac Rehabilitation Diagnoses S/P primary angioplasty with coronary stent Mak Bey MD [address] [place], [place] [address] Phone: tel: fax: [facility] [address] [place] [address] Phone: tel: Referral IDStatusReasonStgainesville DateExpiration DateVisits RequestedVisits [id number] Specialty Services Required [facility] for visit Narrative* Treatment Plan and Therapy Plan (Routine) - Pending ReviewSpecialtyDiagnoses / ProceduresReferred By ContactReferred To Contact Diagnoses Carcinoid tumor of stomach, unspecified whether malignant (HCC) Procedures [place] OCTREOTIDE INJECTION, DEPOT Trevor Serna MD [address] [place] [address] Phone: tel: [facility] [address] [place] [address] Phone: tel: Referral IDStatRelucySttacos DateExpiration DateVisits RequestedVisits [id number] Obouut23 [facility] Assessments Diagnosis Benign essential HTN Essential [...] (HCC) Malignant neoplasm of stomach, unspecified site alf current use of anticoagulant therapy History of [...] useof insulin (HCC) Coronary artery disease involving muscogee coronary artery of 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 angina pectoris Gastric carcinoma (HCC) [...] embolism (HCC) Other pulmonary embolism and infarction alf current use of anticoagulant therapy Liver metastases [...] Will2018 1:25 PMLiving WillPower of AttorneyPower of Land Leasing Information Clerk 06/26/2013 1:20 PMPower of Attorney2018 1:30 PMHealthcare [...] PM ACP-Power of Attorney2018 1:30 PMHealthcare POADNR Zksxeuvqiizeg88/2/2016 2:24 PMTypeDate RecordedPatient RepresentativeExplanationACP-Advance Directive ACP-Advance Directive06/26/2013 1:20 PMACP-Advance Directive2018 1:25 PM Living WillACP-Power of AttorneyACP-Power of Attorney06/26/2013 1:20 PMACP-Power of Attorney2018 1:30 PMHealthcare POADNR Qowexrnweywuo22/2/2016 2:24 PMCode StatusDate ActivatedDate InactivatedCommentsFull Code09/29/2019 4:18 PMDNR-CCA 09/28/2019 3:51 PM09/29/2019 4:18 PMCode StatusDate ActivatedDate Inactivated CommentsFull Code10/06/2019 10:28 AMTypeDate RecordedPatient Money Examiner ExplanationACP-Advance DirectiveACP-Advance Directive06/26/2013 1:20 PMACP- Advance Directive2018 1:25 PMLiving WillACP-Do Not Poatprsskgi32/2/2016 2:24 PMACP-Power of AttorneyACP-Power of Attorney06/26/2013 1:20 PMACP-Power of Attorney2018 1:30 PMHealthcare POATypeDate RecordedPatient Money Examiner ExplanationACP-Advance DirectiveACP-Power of AttorneyACP-Advance Directive 2018 1:25 PMLiving WillACP-Power of Attorney2018 1:30 PMHealthcare POA ACP-Do Not Cnilokjpuvl37/2/2016 2:24 PMACP-Advance Directive06/26/2013 1:20 PM ACP-Power of Attorney06/26/2013 1:20 PMTypeDate RecordedPatient Money Examiner ExplanationACP-Advance DirectiveACP-Power of AttorneyACP-Advance Directive 2018 1:25 PMLiving WillACP-Power of Attorney2018 1:30 PMHealthcare POA ACP-Do Not Rfvksjokowc62/2/2016 2:24 PMACP-Advance Directive06/26/2013 1:20 PM ACP-Power of Attorney06/26/2013 1:20 PMTypeDate RecordedPatient Money Examiner ExplanationACP-Advance Directive2018 1:25 PMLiving WillACP-Power of Attorney2018 1:30 PMHealthcare POAACP-Advance Directive06/26/2013 1:20 PM ACP-Power of Attorney06/26/2013 1:20 PMTypeDate RecordedPatient Money Examiner ExplanationACP-Advance Directive2018 1:25 PMLiving WillACP-Power of Attorney2018 [...] ActivatedDate InactivatedComments06/21/2024 1:49 PM06/22/2024 1:47 PMDate ActivatedDate QsebhaaikznDjmtbkhq58/15/2024 7:23 AMDate ActivatedDate JvqdizazhaxNgnxltty97/14/2024 2:42 PM10 7:01 AMDate ActivatedDate HssfdtvjwevFphpzxyn68/22/2019 10:28 AM10/07/2019 5:37 PMDate ActivatedDate ZqhidguajvhGpliazns32/18/2019 1:47 PM10/06/2019 10:28 AMDate ActivatedDate ByjvbcoybdaHbrjxacw88/16/2019 4:28 AM10/02/2019 1:47 PMNameRelationship Healthcare Agent RelationshipCommunicationLaaugusto Fraser HicksSpousePrimary Decision Maker* * * Marylou R AstonChildSecondary Decision Maker* Date ActivatedDate RtmjjsufkmtPxbhenoz64/15/2024 7:23 AM08/29/2024 8:32 PMName RelationshipHealthcare Agent RelationshipCommunicationLadonaurea BalderasksSpouse Primary Decision Maker* * * Marylou Nash AstonChildSecondary Decision Maker* Date ActivatedDate LijmxubypqbNryhnjpa18/15/2024 7:23 AM08/29/2024 8:32 PMDate ActivatedDate ZynuivcgyjyYsfqthpu37/14/2024 2:42 PM10 7:01 AMDate ActivatedDate TludtlhsakkAfpsumdl62/22/2019 10:28 AM10/07/2019 5:37 PMDate ActivatedDate YtkapcrjdtjVxzsdpez99/18/2019 1:47 PM10/06/2019 10:28 AMDate ActivatedDate EqmnnqlcakoIhhnkvbk32/16/2019 4:28 AM10/02/2019 1:47 PMName RelationshipHealthcare Agent RelationshipCommunicationLaaugusto [...] Maker* Date ActivatedDate InactivatedComments02/09/2025 5:45 PMDate ActivatedDate TtraqhhnzikHabhciez40/15/2024 7:23 AM08/29/2024 8:32 PMDate ActivatedDate GvncvgktttmJicjntmo23/14/2024 2:42 PM10 7:01 AMDate ActivatedDate FjkueecqofqHrggqxxf83/22/2019 10:28 AM10/07/2019 5:37 PMDate ActivatedDate HxzcmjcenkkXcvxvuhz08/18/2019 1:47 PM10/06/2019 10:28 AMNameRelationship Healthcare Agent RelationshipCommunicationSergio GallagherPrimary Decision Maker* * * Marylou ClancyChildSecondary Decision Maker* Date ActivatedDate InactivatedComments02/09/2025 5:45 PM4 8:39 PMDate ActivatedDate DecwxetuxckQpyfceng66/15/2024 7:23 AM08/29/2024 8:32 PMDate ActivatedDate JdjxfbjevknXcfkouqw07/14/2024 2:42 PM10 7:01 AMDate ActivatedDate JlzrzclhzosKkudvela92/22/2019 10:28 AM10/07/2019 5:37 PMDate ActivatedDate AfoaojmbhcmOrrmxvms90/18/2019 1:47 PM10/06/2019 10:28 AMName RelationshipHealthcare Agent RelationshipCommunicationLaaugusto [...] Marylou Nash LoganChildSecondary Decision Maker* Date ActivatedDate SmxhusmirrfPjtjnqzz96/9/2025 9:09 AMDate ActivatedDate NoqjqbjdabxKojnnfps55/5/2025 5:02 PM09/23/2025 9:09 AMDate ActivatedDate InactivatedComments06/21/2024 1:49 PM06/22/2024 1:47 PMDate ActivatedDate InactivatedComments06/15/2024 5:15 PM06/21/2024 1:49 PMDate ActivatedDate WtkqjijixqiGruniwro90/9/2025 9:09 AMDate ActivatedDate InactivatedComments 09/19/2025 5:02 PM09/23/2025 9:09 AMDate ActivatedDate InactivatedComments06/21/2024 1:49 PM06/22/2024 1:47 PMDate ActivatedDate InactivatedComments06/15/2024 5:15 PM 06/21/2024 1:49 PM Hospital Course * Maurizio Velazco MD - 09/09/2019 11:[address] 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 [phone] Schedule an appointment as soon as possible for a visit in 1 week Maria Teresa Mcguire MD [address] [phone] Go to As scheduled Lion Carlson MD [address] [phone] In 1 week David Chan MD [address] [facility] [address] Requiring Further Evaluation/Follow Up POST HOSPITALIZATION/Incidental [...] EVERY 28 DAYS vitamin D 1.25 MG (90604 UT) Caps capsule Commonly known as: ERGOCALCIFEROL Take 1 capsule by mouth once a week STOP taking these medications enoxaparin 150 MG/ML injection Commonly known as: LOVENOX losartan 25 MG tablet Commonly known as: COZAAR Where to Get Your Medications These medications were sent to [facility], [address] - [phone] - F [phone] [place] [address] apixaban 5 MG Tabs tablet ferrous sulfate [...] MD 09/09/2019 11:[address] Lion Carlson MD for the opportunity to be [...] your doctor if you can take an pglu-eqi-ktpngjo medicine. Do not take two or more [...] Where can you learn more? Go to [email or web address] and sign in to your [employer] account. Enter P911 in the Search Health Information box to learn more about Hematoma: Care Instructions. If you do not have an account, please click on the Sign Up Now link. Current as of: August 07, 2018 Content Version: [id number] [employer]. Care instructions adapted under license by [employer]_. If youhave questions about a medical condition or this instruction, always ask your healthcare professional. [employer] disclaims any warranty or liability for your use of this information. documented in this encounter* Instructions* Lion Carlson MD - 09/29/2019 Discharge Instructions Admission Date: 09/28/2019 Discharge Date: 09/29/19 Disposition: Cyr Activity: As tolerated Diet: Diabetic Discharge Medication: Lorenzo Amato Home Medication Instructions BEA:[id number] Printed on:09/29/19 0554 Medication Information apixaban (ELIQUIS) 5 MG TABS tablet Take 1 tablet by mouth 2 times daily atorvastatin (LIPITOR) 80 MG tablet TAKE 1 TABLET BY MOUTH ONE TIME DAILY Blood Glucose Monitoring Suppl (Ligandal AUTOCODE BLOOD GLUCOSE) w/Device KIT Use as directed to test up to 4 times daily blood glucose test strips (Ligandal NO CODING BLOOD GLUC) strip 1 each [...] capsule by mouth daily vitamin D (ERGOCALCIFEROL) 40333 units CAPS capsule Take 1 capsule by [...] Agent's Name Healthcare Agent's Phone Number 09/29/19 [phone] Yes, patient has an advance directive for healthcare treatment Living will;Durable power of personal injury attorney for health care -- Healthcare power of personal injury attorney sergio [phone] Admitting Physician: Tunde Pino MD PCP: Lion Carlson MD Discharging Nurse: Discharging Hospital Unit/Room#: Discharging Unit Phone Number: Emergency Contact: Extended Emergency Contact Information Primary Emergency Contact: Sergio Amato Address[facility] [address] [address] [facility] [place] Relation: Spouse Secondary Emergency Contact: [place] [address] [facility] [place] Relation: Parent Past Surgical History: Past [...] older Afluria) 10/19/2016, 08/26/2017, 09/02/2018 Pneumococcal Polysaccharide (Fhzcjapuz99) 08/26/2014 Active Problems: Patient Active Problem List Diagnosis Code Multiple sclerosis (HCC) G35 CAD (coronary artery disease) I25.10 Iron deficiency anemia D50.9 NABOR (obstructive sleep apnea) G47.33 Mixed hyperlipidemia E78.2 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) E11.22, E11.65 Benign essential HTN I10 Vitamin D deficiency E55.9 GERD (gastroesophageal reflux disease) K21.9 Pulmonary embolism (HCC) I26.99 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 Z79.01 Carcinoid [...] MENTAL STATUS:} IV Access: { DERRICK IV ACCESS:558425974} Nursing Mobility/ADLs: Walking {CHP DME ADLs:306341704} Transfer {CHP DME ADLs:287813503} Bathing {CHP DME ADLs:788411908} Dressing {CHP DME ADLs:397049544} Toileting {CHP DME ADLs:331150764} Feeding {CHP DME ADLs:712824999} Animal Cop {P DME ADLs:260514506} Med Delivery { DERRICK MED Delivery:732492254} Wound Care Documentation and Therapy: Elimination: Continence: Bowel: {YES / NO:} Bladder: {YES / NO:} Urinary Catheter: {Urinary Catheter:186111360} Colostomy/Ileostomy/Ileal Conduit: {YES / NO:} Date of Last BM: Intake/Output Summary (Last 24 hours) at 10/07/2019 1212 Last data filed at 10/07/2019 0938 Gross per 24 hour Intake 1911 ml Output Net 1911 ml I/O last 3 completed shifts: In: 1900 [I.V.:1900] Out: - Safety Concerns: { DERRICK Safety Concerns:674201852} Impairments/Disabilities: { DERRICK Impairments/Disabilities:033385969} Nutrition Therapy: Current Nutrition Therapy: { DERRICK Diet List:094556707} Routes of Feeding: {CHP DME Other Feedings:838766478} Liquids: {Cleat Thrower liquid thickness:90065} Daily Fluid Restriction: {CHP DME Yes amt example:989526401} Last Modified Barium Swallow with Video (Video Swallowing Test): {Done Not Done Date:} Treatments at the Time of Hospital Discharge: Respiratory Treatments: Oxygen Therapy: {Therapy; copd oxygen:90523} Ventilator: {[facility] Vent List:060322352} Rehab Therapies: {THERAPEUTIC INTERVENTION:6138157660} Weight Bearing Status/Restrictions: { CC Weight Bearin} Other Medical Equipment (for information only, NOT a DME order): {EQUIPMENT:387423781} Other Treatments: Patient's personal belongings (please select all that are sent with patient): {CHP DME Belongings:882044055} RN SIGNATURE: {Esignature:527572943} CASE MANAGEMENT/SOCIAL WORK SECTION Inpatient Status Date: Readmission Risk Assessment Score: Readmission Risk Risk of Unplanned Readmission: 39 Discharging to Facility/ Agency Name: Address: Phone: Fax: Dialysis Facility (if applicable) Name: Address: Dialysis Schedule: Phone: Fax: [facility] Home Demonstration Agent/Medical Care Evaluation Specialist signature: {Esignature:739822561} PHYSICIAN SECTION Prognosis: {Prognosis:9513787943} Condition at Discharge: { Patient Condition:170011989} Rehab Potential (if transferring to Rehab): {Prognosis:5835259525} Recommended Labs or Other Treatments After Discharge: Physician Certification: I certify the above information and transfer of Lorenzo Amato is necessary for the continuing treatment of the diagnosis listed and that he requires {Admit to Appropriate Level of Care:31577} for {GREATER/LESS:858491541} 30 days. Update Admission H&P: {CHP DME Changes in HandP:449316888} PHYSICIAN SIGNATURE: {Esignature:515292157} * Attachments The following attachments cannot be sent through Care Everywhere. * PCI (Percutaneous Coronary Intervention): Post-op (Iraqi) documented in this encounter History of Present [...] in place, Hypercholesteremia, Hypertension, Liver metastases (HCC), [place] (myocardial infarction) (HCC), MS (multiple sclerosis) (HCC), [...] 03/06/19 Lion Carlson MD vitamin D (ERGOCALCIFEROL) 05904 units CAPS capsule Take 1 capsule by mouth once a week 03/06/19 Lion Carlson MD Blood Glucose Monitoring Suppl (Ligandal AUTOCODE BLOOD GLUCOSE) w/Device KIT Use as directed to test up to 4 times daily 03/06/19 MD JUDITH Patel LANCETS 28G MISC Use as directed to test up to 4 times daily 03/06/19 Lion Carlson MD blood glucose test strips (Ligandal NO CODING BLOOD GLUC) strip 1 each [...] 5 mg 5 mg Oral BID Stacy iVtale MD 5 mg at 09/08/19 1408 tamsulosin [...] Units 100 Units Subcutaneous QAM Kanwal Preciado, LATHE PULLER - PASSPORT SUPPORT ASSOCIATE 100 Units at 09/08/19 0833 fentaNYL (SUBLIMAZE) injection 50 mcg 50 mcg Intravenous Once Lexa M Brzycki, DO acetaminophen (TYLENOL) tablet 650 mg 650 mg Oral Q4H PRN WEST Olivares CNP nicotine (NICODERM CQ) 21 MG/24HR 1 patch 1 patch Transdermal Daily PRN WEST Olivares CNP ondansetron (ZOFRAN) injection 4 mg 4 mg Intravenous Q6H PRN WETS Olivares CNP 4 mg at 09/04/19 1511 polyethylene glycol (GLYCOLAX) packet 17 g 17 g Oral Daily PRN Tequila Mota APRN - PASSPORT SUPPORT ASSOCIATE 17 g at 09/06/19 1011 sodium chloride [...] Oral Q6H PRN Tequila Mota APRN - PASSPORT SUPPORT ASSOCIATE 0.5 mg at 09/08/19 0634 Allergies: Toradol [...] NEGATIVE Ketones, Urine TRACE (A) NEGATIVE Specific [place], UA 1.035 (H) 1.005 - 1.030 Urine [...] # 1.37 1.10 - 3.70 k/uL Absolute [place] # 1.00 0.10 - 1.20 k/uL Absolute [...] # 1.37 1.10 - 3.70 k/uL Absolute [place] # 0.84 0.10 - 1.20 k/uL Absolute [...] Expiration Date 09/07/2019 Arm Band Number BE [id number] ABO/Rh AB NEGATIVE Antibody Screen NEGATIVE Unit Number [id number] Product Code Leukocyte Reduced Red Cell Unit [...] (HCC) [N18.3] Gastric carcinoma (HCC) [C16.9] 10/11/2016 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 [Z79.01] Uncontrolled [...] in place, Hypercholesteremia, Hypertension, Liver metastases (HCC), NJ (myocardial infarction) (HCC), MS (multiple sclerosis) (HCC), [...] Ambulation Assistance: Independent Transfer Assistance: Independent Active Fall Internship: Yes Mode of Transportation: Truck Occupation: On [...] 09/08/2019 3:34 PM EDT Physical Therapy Facility/Department: [address] ONC/MED SURG Initial Assessment NAME: Lorenzo [...] Depression, DVT (deep venous thrombosis) (HCC), GIbleed, [place] filter in place, Hypercholesteremia, Hypertension, Liver metastases (HCC), NJ (myocardial infarction) (HCC), MS (multiple sclerosis) (HCC), [...] Ambulation Assistance: Independent Transfer Assistance: Independent Active Fall Internship: Yes Mode of Transportation: Truck Occupation: On [...] Supine: (DIANNE- 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 09/04/2019 Yes Gastric carcinoma (HCC) (Chronic) 09/04/2019 Yes CKD (chronic kidney disease) stage 3, GFR 30-59 ml/min (HCC) 09/04/2019 Yes History of pulmonary embolus (PE) 09/04/2019 Yes Hematoma 09/04/2019 Yes Acute blood loss anemia 09/05/2019 Yes REIJ (acute kidney injury) (HCC) 09/05/2019 No Acute [...] Depression, DVT (deep venousthrombosis) (HCC), GI bleed, [place] filter in place, Hypercholesteremia, Hypertension, Liver metastases (HCC), NJ (myocardial infarction) (HCC), MS (multiple sclerosis) (HCC), [...] CAPSULE BY MOUTH ONE TIME A DAY 04/11/19iLon Carlson MD furosemide (LASIX) 20 MG tablet [...] 03/06/19 Lion Carlson MD vitamin D (ERGOCALCIFEROL) 05694 units CAPS capsule Take 1 capsule by mouth once a week 03/06/19 Lion Carlson MD Blood Glucose Monitoring Suppl (Tidal Wave TechnologyGayathri AUTOCODE BLOOD GLUCOSE) w/Device KIT Use as directed to test up to 4 times daily 03/06/19 MD JUDITH Patel LANCETS 28G MISC Use as directed to test up to 4 times daily 03/06/19 Lion Carlson MD blood glucose test strips (Tidal Wave TechnologyGayathri NO CODING BLOOD GLUC) strip 1 each [...] 100 Units Subcutaneous QABria Preciado APRN - PASSPORT SUPPORT ASSOCIATE 100 Units at 09/06/19 0853 fentaNYL (SUBLIMAZE) [...] tablet 100 mg 100 mg Oral BID Cehng J Orlop, DO 100 mg at 09/06/192115 [...] 0.5 mg Oral Q6H PRN Tequila Mota LATHE PULLER - PASSPORT SUPPORT ASSOCIATE Allergies: Toradol [ketorolac tromethamine] and Lisinopril Social [...] NEGATIVE Ketones, Urine TRACE (A) NEGATIVE Specific [place], UA 1.035 (H) 1.005 - 1.030 Urine [...] # 1.37 1.10 - 3.70 k/uL Absolute [place] # 1.00 0.10 - 1.20 k/uL Absolute [...] # 1.37 1.10 - 3.70 k/uL Absolute [place] # 0.84 0.10 - 1.20 k/uL Absolute [...] Expiration Date 09/07/2019 Arm Band Number BE [id number] ABO/Rh AB NEGATIVE Antibody Screen NEGATIVE IMAGING [...] (HCC) [N18.3] Gastric carcinoma (HCC) [C16.9] 10/11/2016 alf current use of anticoagulant therapy [Z79.01] Uncontrolled [...] in place, Hypercholesteremia, Hypertension, Liver metastases (HCC), NJ (myocardial infarction) (HCC), MS (multiple sclerosis) (HCC), [...] 03/06/19 Lion Carlson MD vitamin D (ERGOCALCIFEROL) 78243 units CAPS capsule Take 1 capsule by mouth once a week 03/06/19 Lion Carlson MD Blood Glucose Monitoring Suppl (Ligandal AUTOCODE BLOOD GLUCOSE) w/Device KIT Use as directed to test up to 4 times daily 03/06/19 MD JUDITH Patel LANCETS 28G MISC Use as directed to test up to 4 times daily 03/06/19 Lion Carlson MD blood glucose test strips (Ligandal NO CODING BLOOD GLUC) strip 1 each [...] mL Intravenous 2 times per day WEST OlivaresPASSPORT SUPPORT ASSOCIATE 10 mL at 09/04/19 2148 sodium chloride [...] 0.5 mg Oral Q6H PRN Tequila Mota, LATHE PULLER - PASSPORT SUPPORT ASSOCIATE Allergies: Toradol [ketorolac tromethamine] and Lisinopril Social [...] NEGATIVE Ketones, Urine TRACE (A) NEGATIVE Specific [place], UA 1.035 (H) 1.005 - 1.030 Urine [...] # 1.37 1.10 - 3.70 k/uL Absolute [place] # 1.00 0.10 - 1.20 k/uL Absolute [...] Expiration Date 09/07/2019 Arm Band Number BE [id number] ABO/Rh AB NEGATIVE Antibody Screen NEGATIVE IMAGING [...] (HCC) [N18.3] Gastric carcinoma (HCC) [C16.9] 10/11/2016 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PATIENT SERV[facility] Note 09/06/2019 11:59 AM Name: Lorenzo Amato Acct: [id number] Room: 0449/0449-01 IP Day: 2 Admit Date: [...] Depression, DVT (deep venousthrombosis) (HCC), GI bleed, [place] filter in place, Hypercholesteremia, Hypertension, Liver metastases (HCC), NJ (myocardial infarction) (HCC), MS (multiple sclerosis) (HCC), [...] 09/04/2019 Yes Benign essential HTN 09/04/2019 Yes alf current use of anticoagulant therapy 09/04/2019 Yes [...] GERD (gastroesophageal reflux disease) Pulmonary embolism (HCC) alf current use of anticoagulant therapy Carcinoid tumor [...] Depression, DVT (deep venousthrombosis) (HCC), GI bleed, [place] filter in place, Hypercholesteremia, Hypertension, Liver metastases (HCC), NJ (myocardial infarction) (HCC), MS (multiple sclerosis) (HCC), [...] 03/06/19 Lion Carlson MD vitamin D (ERGOCALCIFEROL) 50910 units CAPS capsule Take 1 capsule by mouth once a week 03/06/19 Lion Carlson MD Blood Glucose Monitoring Suppl (Ligandal AUTOCODE BLOOD GLUCOSE) w/Device KIT Use as directed to test up to 4 times daily 03/06/19 MD JUDITH Patel LANCETS 28G MISC Use as directed to test up to 4 times daily 03/06/19 Lion Carlson MD blood glucose test strips (Ligandal NO CODING BLOOD GLUC) strip 1 each [...] Oral Q6H PRN Tequila Mota APRN - PASSPORT SUPPORT ASSOCIATE Allergies: Toradol [ketorolac tromethamine] and Lisinopril Social [...] NEGATIVE Ketones, Urine TRACE (A) NEGATIVE Specific [place], UA 1.035 (H) 1.005 - 1.030 Urine [...] Expiration Date 09/07/2019 Arm Band Number BE [id number] ABO/Rh AB NEGATIVE Antibody Screen NEGATIVE IMAGING [...] (HCC) [N18.3] Gastric carcinoma (HCC) [C16.9] 10/11/2016 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PATIENT SERV[facility] Note 09/05/2019 9:32 AM Name: Lorenzo Amato Acct: [id number] Room: 0449/0449-01 IP Day: 1 Admit Date: [...] Depression, DVT (deep venousthrombosis) (HCC), GI bleed, [place] filter in place, Hypercholesteremia, Hypertension, Liver metastases (HCC), NJ (myocardial infarction) (HCC), MS (multiple sclerosis) (HCC), [...] 09/04/2019 Yes Benign essential HTN 09/04/2019 Yes alf current use of anticoagulant therapy 09/04/2019 Yes [...] years ago Hypercholesteremia Hypertension Liver metastases (HCC) NJ (myocardial infarction) (HCC) MS (multiple sclerosis) (HCC) [...] GERD (gastroesophageal reflux disease) Pulmonary embolism (HCC) alf current use of anticoagulant therapy Carcinoid tumor [...] Attending Note I have reviewed the above [facility] note(s) and I either performed the singer [...] Rehabilitation Physician Order Form Lorenzo Amato 1970 [id number] 10/17/2019 [x] Phase 2 ECG Monitored Cardiac Rehabilitation [] NJ [x] PTCA with/without stents [] CABG [] [...] Initial History and Assessment Lorenzo Amato 1970 [id number] 10/17/2019 Primary Diagnosis: PERCUTANEOUS CORONARY INTERVENTION Living Will: [x] Yes [] No On File: [x] Yes [] No [] N/A Durable Power of Land Leasing Information Clerk: [x] Yes [] No Medical History Past Medical History: Diagnosis Date Anemia Arthritis CAD (coronary artery disease) Chronic kidney disease CKD (chronic kidney disease) Depression Disease of blood and blood forming organ DVT (deep venous thrombosis) (HCC) GERD (gastroesophageal reflux disease) GERD (gastroesophageal reflux disease) GI bleed [place] filter in place 2 years ago History of blood transfusion Hypercholesteremia Hypertension Liver metastases (HCC) NJ (myocardial infarction) (HCC) MS (multiple sclerosis) (HCC) [...] living? *If greater than 5 symptoms listed, social work coordinator notified. Cardiac Rehab Pre - Test 1. [...] bruits. Monitor rhythm- SINUS RYTHM VR- 80 [place]- .20 QRS- .12 QT- .40 Ejection Fraction- [...] day documented in this encounter* Joshua Barrera, PROTOTYPE MACHINIST - 12/18/2019 1:00 PM EST Phase II [...] at least 2 occasions Education: [x] Equipment [place] [x] Self pulse [x] Proper use weights/therabands [x] S/S to report [x] Low Na Diet [x] Warm up/ Cool down [x] BP Medication [x] RPE Scale [x] Understand BP [x] Ex Safety [x] coding support specialist class-Home Exercise Target Goal: -Individual Exercise [...] Prep [] Relapse Intervention: [] Psych Consult/social media coordinator [x] Uses stress management skills [] Physician [...] Physician Changes/Comments: Cardiac Rehab Staff JOSHUA BARRERA RIBBON HAND documented in this encounter* Joshua Barrera, RUMA [...] at least 2 occasions Education: [x] Equipment [place] [x] Self pulse [x] Proper use weights/therabands [x] S/S to report [x] Low Na Diet [x] Warm up/ Cool down [x] BP Medication [x] RPE Scale [x] Understand BP [x] Ex Safety [x] coding support specialist class-Home Exercise Target Goal: -Individual Exercise [...] Prep [] Relapse Intervention: [] Psych Consult/social media coordinator [x] Uses stress management skills [] Physician [...] Physician Changes/Comments: Cardiac Rehab Staff JOSHUA BARRERA RIBBON HAND documented in this encounter* Joshua Barrera RCP [...] living? *If greater than 5 symptoms listed, social work coordinator notified. Education: [] Education Goals met Target [...] Physician Changes/Comments: Cardiac Rehab Staff JOSHUA BARRERA, RIBBON HAND documented in this encounter* Joshua Barrera, [facility] - 02/12/2020 1:00 PM EDT This rehabilitation patient has been placed on hold effective 02/05/2020 due to cardiopulmonary rehabilitation department at [facility] is imposing a mandated closure related to the Covid-19 threat. Individualized treatment plans for each patient will be updated and restored uponreopening of cardiopulmonary rehabilitation. documented in this encounter* Eli Shaikh RN - 09/29/2019 5:41 PM EST Report called to [facility] at [facility]. * Eli Shaikh RN - 09/29/2019 5:00 PM EST [facility] Emergency transport here and report given. Pt leaves per cart with personal belongingsin stable condition. * Blanca Haskins RN - 09/29/2019 3:09 PM EST [facility] Emergency Transport called, ETA 45 - 60 minutes. * Eli Shaikh RN - 09/29/2019 2:45 PM EST [facility] calls and states that their ETA is [phone]. * Blanca Haskins RN - 09/29/2019 2:30 PM EST Sourav, nursing malt liquors sales supervisor at [employer] given okay to arrange transportation for patient. [...] positive and they are being transferred to [facility]. Pt is upset with this and he [...] cost. Plan for pt to transfer to [facility] at this time. Pt and spouse plan [...] [x] Home when able -possible transfer to [facility] for cardiac cath [] Swing Bed [] [...] a living will or durable power of personal injury attorney for healthcare? yes If yes do we have a copy on file? yes Do you or your family have any questions or concerns we haven't already discussed? Denies Bridal Stylist Sales Consultant and pt and family work together to complete assessment. * Abdirizak Oro MD - 09/29/2019 10:37 AM EST Cardiology His myoview was markedly abnormal. I feel there is a fairly large area of proximal anterior lateralischemia. Appears to have inferior wall scar, which correlates with his known previous inf-lateral NJ in 2005. However, appears to be significantly different than in 2011. I view of his history, and lack of symptoms prior to his previous NJ, would consider transferring to [facility] for possible cath. Have discussed [...] 5. Fluid Accumulation-No significant fluid accumulation, 6. Security Operations Specialist Strength-Not measured Nutrition Risk Level: Low, Moderate [...] 4.9% decline in last month (questionable intention) [place] Body Wt: 160 lb (72.6 kg), % [place] Body 179% BMI Classification: BMI > or [...] Labs, Weight, I&O, Patient/Family Education Contact Number: [phone] * Eli Shaikh RN - 09/29/2019 9:30 [...] Rosario RN - 10/07/2019 2:56 PM EST Bridal Stylist Sales Consultant went over stent card & booklet. Patient has with discharge paperwork * Mei Del Rosario RN - 10/07/2019 2:54 PM EST Meds to beds delivered only the one medication ticagrelor (Brilinta) to the patient's room and the patient has the medication with him * Kemar Ponce DO - 10/07/2019 11:01 AM EST [place] Environmental Health Manager Progress Note Date: 10/07/2019 Patient name: Lorenzo [...] cardiac cath. Follow up in 2 weeks. [employer] Environmental Health Manager [employer]. [phone] * Tim Saldana MD - 10/07/2019 8:44 [...] up to 5x/day Blood Glucose Monitoring Suppl (Ligandal AUTOCODE BLOOD GLUCOSE) w/Device KIT, Use as directed to test up to 4 times daily [place] LANCETS 28G MISC, Use as directed to test up to 4 times daily blood glucose test strips (Ligandal NO CODING BLOOD GLUC) strip, 1 each [...] Patient was instructed to contact his primary wiring technician in [place] to be seen in 2-3 weeks post discharge. Nutrition Please ensure that patient is on a renal diet/TF. Avoid nephrotoxic drugs/contrast exposure. We will continue to follow along with you. Tim Saldana MD [facility] * Trevor Serna MD - 10/06/2019 2:44 [...] blood transfusion, Hypercholesteremia, Hypertension, Liver metastases (HCC), NJ (myocardial infarction) (HCC), MS (multiple sclerosis) (HCC), [...] Lion Carlson MD Blood Glucose Monitoring Suppl (Tidal Wave TechnologyGayathri AUTOCODE BLOOD GLUCOSE) w/Device KIT Use as directed to test up to 4 times daily 03/06/19 MD JUDITH Patel LANCETS 28G MISC Use as directed to test up to 4 times daily 03/06/19 Lion Carlson MD blood glucose test strips (Ligandal NO CODING BLOOD GLUC) strip 1 each [...] 250 mL infusion 12 Units/kg/hr Intravenous Continuous iJm Mendoza MD 21.8 mL/hr at 10/06/19 1851 16.654 Units/kg/hr at 10/06/19 1851 sodium chloride flush 0.9 % injection 10 mL 10 mL Intravenous 2 times per day Jim Mendoza MD sodium chloride flush 0.9 % injection 10 mL 10 mL Intravenous PRN Jim Mendoza MD ticagrelor (BRILINTA) tablet 90 mg 90 mg Oral BID Jim Mendzoa MD acetylcysteine (MUCOMYST) 20 % solution 600 [...] vial 100 Units 100 Units Subcutaneous BID iJm Mendoza MD 50 Units at 10/03/192136 [Held [...] [C78.7] 05/25/2013 Pulmonary embolism (HCC) [I26.99] 09/07/2012 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 [Z79.01] GERD [...] to follow. We will see him in [place]. Discussed with patient and his and Nurse. [...] up to 5x/day Blood Glucose Monitoring Suppl (Ligandal AUTOCODE BLOOD GLUCOSE) w/Device KIT, Use as directed to test up to 4 times daily Ligandal LANCETS 28G MISC, Use as directed to test up to 4 times daily blood glucose test strips (Ligandal NO CODING BLOOD GLUC) strip, 1 each [...] you. Mino Pino MD [facility] This note is created with the assistance [...] 5. Fluid Accumulation-No significant fluid accumulation, 6. Security Operations Specialist Strength-Not measured Nutrition Risk Level: High Nutrient Needs: Estimated Daily Total Kcal: 1.3-1.4 ~>3373-2310 kcals/d Estimated Daily Protein (g): 1.5 gm/kg [...] wt loss x 8 mo per EMR [place] Body Wt: 160 lb (72.6 kg), % [place] Body 178% adm/ideal BMI Classification: BMI > [...] Lewis MD - 10/06/2019 8:[address] [facility] 10/06/2019 8:41 AM Name: Lorenzo Amato Acct: [id number] Room: IP Day: 7 Admit Date: 09/29/2019 [...] symptoms. Of note-- patient had history of NJ in 2005 with stent placement to LAD which presented with only symptom of left arm pain. He had stress test completed at [facility] which revealed multiple abnormalities consistent with high [...] GERD (gastroes ophageal reflux disease), GI bleed, [place] filter in place, History of blood transfusion, Hypercholesteremia, Hypertension, Liver metastases (HCC), NJ (myocardial infarction) (HCC), MS (multiple sclerosis) (HCC), [...] 09/30/2019 Yes Pulmonary embolism (HCC) 09/30/2019 Yes alf current use of anticoagulant therapy 09/30/2019 Yes [...] not a candidate for CABG: S/P another [facility] 10/06 with TIFFANIE to LAD and [...] GERD (gastroes ophageal reflux disease), GI bleed, [place] filter in place, History of blood transfusion, Hypercholesteremia, Hypertension, Liver metastases (HCC), NJ (myocardial infarction) (HCC), MS (multiple sclerosis) (HCC), [...] Lion Carlson MD Blood Glucose Monitoring Suppl (Ligandal AUTOCODE BLOOD GLUCOSE) w/Device KIT Use as directed to test up to 4 times daily 03/06/19 MD JUDITH Patel LANCETS 28G MISC Use as directed to test up to 4 times daily 03/06/19 Lion Carlson MD blood glucose test strips (Ligandal NO CODING BLOOD GLUC) strip 1 each [...] capsule 0.4 mg 0.4 mg Oral Daily Jmi Mendoza MD 0.4 mg at 10/05/19 09 [...] [C78.7] 05/25/2013 Pulmonary embolism (HCC) [I26.99] 09/07/2012 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 [Z79.01] GERD [...] contextual diversion. * Augusta Aly APRN - PASSPORT SUPPORT ASSOCIATE - 10/05/2019 2:05 PM EST [place] Environmental Health Manager Progress Note Date: 10/05/2019 Patient name: Lorenzo [...] GERD (gastroesophageal reflux disease) Pulmonary embolism (HCC) alf current use of anticoagulant therapy Carcinoid tumor [...] to be resumed after cardiac cath. [employer] Environmental [employer] [phone] * Mino Pino MD - 10/05/2019 1:21 [...] up to 5x/day Blood Glucose Monitoring Suppl (Ligandal AUTOCODE BLOOD GLUCOSE) w/Device KIT, Use as directed to test up to 4 times daily Ligandal LANCETS 28G MISC, Use as directed to test up to 4 times daily blood glucose test strips (Ligandal NO CODING BLOOD GLUC) strip, 1 each [...] you. Mino Pino MD [facility] This note is created with the assistance of a speech-recognition program. While intending to generate a document that actually reflects the content of the visit, no guarantees can be provided that every mistake has been identified and corrected by editing. * Tunde Pino MD - 10/05/2019 8:[address] [facility] Note 10/05/2019 8:34 AM Name: Lorenzo Amato Acct: [id number] Room: IP Day: 6 Admit Date: 09/29/2019 [...] symptoms. Of note-- patient had history of [place] in 2005 with stent placement to LAD which presented with only symptom of left arm pain. He had stress test completed at [facility] which revealed multiple abnormalities consistent with high risk CAD. Patient subsequently had ECHO: and found to have reduced EF: 36% and left ventricular hypertrophy along with Diastolic Dysfunction. Given these findings--[facility]. [...] GERD (gastroes ophageal reflux disease), GI bleed, [place] filter in place, History of blood transfusion, Hypercholesteremia, Hypertension, Liver metastases (HCC), NJ (myocardial infarction) (HCC), MS (multiple sclerosis) (HCC), [...] 09/30/2019 Yes Pulmonary embolism (HCC) 09/30/2019 Yes 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 09/30/2019 Yes [...] with questions. * Augusta Aly APRN - PASSPORT SUPPORT ASSOCIATE - 10/04/2019 1:13 PM EST [place] Environmental Health Manager Progress Note Date: 10/04/2019 Patient name: Lorenzo [...] GERD (gastroesophageal reflux disease) Pulmonary embolism (HCC) alf current use of anticoagulant therapy Carcinoid tumor [...] 1-2 to discuss with pt and family. [place] Environmental Health Manager [facility]. [phone] * Trevor Serna MD - 10/04/2019 12:56 PM EST [...] GERD (gastroes ophageal reflux disease), GI bleed, [place] filter in place, History of blood transfusion, Hypercholesteremia, Hypertension, Liver metastases (HCC), NJ (myocardial infarction) (HCC), MS (multiple sclerosis) (HCC), [...] Lion Carlson MD Blood Glucose Monitoring Suppl (Ligandal AUTOCODE BLOOD GLUCOSE) w/Device KIT Use as directed to test up to 4 times daily 03/06/19 MD JUDITH Patel LANCETS 28G MISC Use as directed to test up to 4 times daily 03/06/19 Lion Carlson MD blood glucose test strips (Ligandal NO CODING BLOOD GLUC) strip 1 each [...] mg 1 mg Intravenous Once Nuria Hassan, LATHE PULLER - MARIA EUGENIA insulin lispro (HUMALOG) injection vial 6 Units 6 Units Subcutaneous TID AC Jim Mendoza MD 6 Units at 10/04/19 1657 glucose (GLUTOSE) 40 % oral gel 15 g 15 g Oral PRN Jmi Mendoza MD dextrose 50 % IV solution 12.5 g Intravenous PRN Jim Mendoza MD glucagon (rDNA) injection 1 mg 1 mg Intramuscular PRN Jim eMndoza MD dextrose 5 % solution 100 mL/hr [...] [C78.7] 05/25/2013 Pulmonary embolism (HCC) [I26.99] 09/07/2012 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 [Z79.01] GERD [...] Pino MD - 10/04/2019 8:[address] [facility]-PATIENT [facility]ICE [facility] Progress Note 10/04/2019 8:36 AM Name: Lorenzo Amato Acct: [id number] Room: IP Day: 5 Admit Date: 09/29/2019 [...] symptoms. Of note-- patient had history of NJ in 2005 with stent placement to LAD which presented with only symptom of left arm pain. He had stress test completed at [facility] which revealed multiple abnormalities consistent with high risk CAD. Patient subsequently had ECHO: and found to have reduced EF: 36% and left ventricular hypertrophy along with Diastolic Dysfunction. Given these findings[facility]. [...] blood transfusion, Hypercholesteremia, Hypertension, Liver metastases (HCC), NJ (myocardial infarction) (HCC), MS (multiple sclerosis) (HCC), [...] 09/30/2019 Yes Pulmonary embolism (HCC) 09/30/2019 Yes alf current use of anticoagulant therapy 09/30/2019 Yes [...] Pino MD - 10/03/2019 3:[address] [facility]-PATIENT SERVICE [facility] Progress Note 10/03/2019 3:48 PM Name: Lorenzo Amato Acct: [id number] Room: IP Day: 4 Admit Date: 09/29/2019 [...] symptoms. Of note-- patient had history of NJ in 2005 with stent placement to LAD which presented with only symptom of left arm pain. He had stress test completed at [facility] which revealed multiple abnormalities consistent with high [...] Continuous Infusions: heparin (porcine) 18 Units/kg/hr (10/03/19 1941) dextrose PRN Meds: sodium chloride flush, acetaminophen, [...] blood forming organ, DVT (deep venous thrombosis) ([facility]), GERD (gastroesophageal reflux disease), GERD (gastroes ophageal reflux disease), GI bleed, [place] filter in place, History of blood transfusion, Hypercholesteremia, Hypertension, Liver metastases (HCC), NJ (myocardial infarction) (HCC), MS (multiple sclerosis) (HCC), [...] 09/30/2019 Yes Pulmonary embolism (HCC) 09/30/2019 Yes alf current use of anticoagulant therapy 09/30/2019 Yes [...] blood transfusion, Hypercholesteremia, Hypertension, Liver metastases (HCC), NJ (myocardial infarction) (HCC), MS (multiple sclerosis) (HCC), [...] mg 1 mg Intravenous Once Nuria Hassan, LATHE PULLER - PASSPORT SUPPORT ASSOCIATE insulin lispro (HUMALOG) injection vial 6 Units [...] [C78.7] 05/25/2013 Pulmonary embolism (HCC) [I26.99] 09/07/2012 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 [Z79.01] GERD [...] EUGENIA - 10/03/2019 11:20 AM EST [facility] Progress Note Date: 10/03/2019 Patient name: Lorenzo [...] GERD (gastroesophageal reflux disease) Pulmonary embolism (HCC) alf current use of anticoagulant therapy Carcinoid tumor [...] Will await CTS recommendations for CABG Bryson Environmental Health Manager [facility]. [phone] * Carrie Sharp MD - 10/03/2019 10:38 [...] GERD (gastroes ophageal reflux disease), GI bleed, [place] filter in place, History of blood transfusion, Hypercholesteremia, Hypertension, Liver metastases (HCC), NJ (myocardial infarction) (HCC), MS (multiple sclerosis) (HCC), [...] Lion Carlson MD blood glucose test strips (PeeplePassANIBAL NO CODING BLOOD GLUC) strip 1 each [...] [C78.7] 05/25/2013 Pulmonary embolism (HCC) [I26.99] 09/07/2012 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 [Z79.01] GERD [...] Shabazz OT - 10/02/2019 11:53 AM EST [facility] Occupational Therapy Not Seen Note DATE: [...] to call with questions. * Augusta Aly, LATHE PULLER - PASSPORT SUPPORT ASSOCIATE - 10/02/2019 9:49 AM EST [facility] Progress Note Date: 10/02/2019 Patient name: Lorenzo [...] GERD (gastroesophageal reflux disease) Pulmonary embolism (HCC) alf current use of anticoagulant therapy Carcinoid tumor [...] dialysis, anesthesia complications requiring intubation, infection, CVA, NJ, and even . Patient verbalized understanding and agreed toproceed with the procedure understanding the above risks and alternatives to the procedure. 7. IF PCI NEEDED, WILL PROCEED WITH BMS PER DR. SAMPSON 8. Will order 1 time dose of xanax prior to cardiac cath, once consent obtained. [place] Environmental Health Manager [facility]. [phone] * Leila Reed RCP - 10/02/2019 8:59 [...] 8:09 AM EST [facility] IN-PATIENT [facility] 10/02/2019 8:09 AM Name: Lorenzo Amato Acct: [id number] Room: IP Day: 3 Admit Date: 09/29/2019 [...] symptoms. Of note-- patient had history of NJ in 2005 with stent placement to LAD which presented with only symptom of left arm pain. He had stress test completed at [facility] which revealed multiple abnormalities consistent with high [...] GERD (gastroes ophageal reflux disease), GI bleed, [place] filter in place, History of blood transfusion, Hypercholesteremia, Hypertension, Liver metastases (HCC), NJ (myocardial infarction) (HCC), MS (multiple sclerosis) (HCC), [...] 09/30/2019 Yes Pulmonary embolism (HCC) 09/30/2019 Yes alf current use of anticoagulant therapy 09/30/2019 Yes [...] blood transfusion, Hypercholesteremia, Hypertension, Liver metastases (HCC), NJ (myocardial infarction) (HCC), MS (multiple sclerosis) (HCC), [...] Lion Carlson MD Blood Glucose Monitoring Suppl (PeeplePassANIBAL AUTOCODE BLOOD GLUCOSE) w/Device KIT Use as directed to test up to 4 times daily 03/06/19 MD JUDITH Patel LANCETS 28G MISC Use as directed to test up to 4 times daily 03/06/19 Lion Carlson MD blood glucose test strips (Tidal Wave TechnologyGayathri NO CODING BLOOD GLUC) strip 1 each [...] 100 mg 100 mg Oral BID Deng Bahena PA-C 100 mg at 10/01/19 0835 pantoprazole [...] [C78.7] 05/25/2013 Pulmonary embolism (HCC) [I26.99] 09/07/2012 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 [Z79.01] GERD [...] MD - 10/01/2019 10:51 AM EST [facility] Manager Progress Note Date: 10/01/2019 Patient name: Lorenzo [...] Infusions: dextrose heparin (porcine) 18 Units/kg/hr (10/01/19 6346) CBC: Recent Labs 09/30/19 0444 09/30/19 1256 [...] dialysis, anesthesia complications requiring intubation, infection, CVA, NJ, and even . Patient verbalized understanding and agreed toproceed with the procedure understanding the above risks and alternatives to the procedure. Thank you for allowing us to participate in Lorenzo Amato's care. Will follow with you Electronically signed on 10/01/19 at 10:51 AM by: Tyrell Weinberg MD Fellow, Cardiovascular Diseases [facility] Attending Physician Statement I have discussed [...] Pino MD - 10/01/2019 7:[address] [facility] IN-PATIENT SERVICE [facility] Progress Note 10/01/2019 7:35 AM Name: Lorenzo Amato Acct: [id number] Room: IP Day: 2 Admit Date: 09/29/2019 [...] symptoms. Of note-- patient had history of NJ in 2005 with stent placement to LAD which presented with only symptom of left arm pain. He had stress test completed at [facility] which revealed multiple abnormalities consistent with high [...] blood transfusion, Hypercholesteremia, Hypertension, Liver metastases (HCC), NJ (myocardial infarction) (HCC), MS (multiple sclerosis) (HCC), [...] 09/30/2019 Yes Pulmonary embolism (HCC) 09/30/2019 Yes 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 09/30/2019 Yes [...] further needs. Agustín Saenz, PT * Tunde iPno MD - 09/30/2019 9:[address] [facility] IN-PATIENT SERVICE [facility] Progress Note 09/30/2019 9:45 AM Name: Lorenzo Amato Acct: [id number] Room: IP Day: 1 Admit Date: 09/29/2019 [...] symptoms. Of note-- patient had history of NJ in 2005 with stent placement to LAD which presented with only symptom of left arm pain. He had stress test completed at [facility] which revealed multiple abnormalities consistent with high [...] blood transfusion, Hypercholesteremia, Hypertension, Liver metastases (HCC), NJ (myocardial infarction) (HCC), MS (multiple sclerosis) (HCC), [...] 09/30/2019 Yes Pulmonary embolism (HCC) 09/30/2019 Yes 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 09/30/2019 Yes [...] Cardiac Rehabilitation Diagnoses Coronary artery disease involving muscogee coronary artery of 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 angina pectoris Coronary artery disease, occlusive Stvz Car [address] [place] [address] [facility] [address] [place] [address] Scheduling Instructions [facility]iac [facility] [address] [place] [address] [phone] SpecialtyDiagnoses / ProceduresReferred By ContactReferred To ContactCardiology Diagnoses Vitamin D deficiency Mixed hyperlipidemia Coronary artery disease involving muscogee coronary artery of 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 angina pectoris Fatigue, unspecified type Shortness of breath NABRO (obstructive sleep apnea) Benign essential HTN Procedures EKG 12 lead Abdirizak Oro MD [address] [place] [address] Referral IDStatusReasonTyler DateExpiration DateVisits RequestedVisits [id number]/2/20225/[id number] / ProceduresReferred By ContactReferred To ContactRadiology Diagnoses GIST, non-malignant Procedures CT Abdomen Pelvis With Contrast Brian Arevalo MD [address] [address] Referral IDStatusChildren[facility] DateExpiration DateVisits RequestedVisits [id number] /[id number] / ProceduresReferred By ContactReferred To ContactCardiac Rehabilitation Diagnoses S/P PTCA (percutaneous transluminal coronary angioplasty) Melba Singh MD [address] [place] [address] Cardio Pulm [address] [place] [phone] Referral IDStatusReasonStart DateExpiration DateVisits RequestedVisits [id number]/20248/[id number] / Procedures Referred By ContactReferred To Contact Diagnoses Vitamin D deficiency Mixed hyperlipidemia Coronary artery disease involving muscogee coronary artery of 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 angina pectoris Benign essential HTN SOB (shortness of breath) Procedures Echo (TTE) complete (PRN contrast/bubble/strain/3D) [place] ECHO TTHRC R-T 2D W/WOM-MODE COMPL SPEC&COLR D [place] TTE W OR WO FOL WCON,DOPPLER Abdirizak Oro MD [address] [place] [address] Referral IDStatusReasonStart DateExpiration DateVisits RequestedVisits [id number]/6/202411/ Summary Purpose Family History No Family History Records FoundNo Family History Records FoundNo Family History Records FoundNo Family History Records FoundNo Family History Records FoundNo Family History Records Found Additional Source Comments Reason for Visit (unrecogniz ed section and content) StatusReasonSpecialtyDiagnoses / ProceduresReferred By ContactReferred To ContactAuthorized Diagnoses Carcinoid tumor of stomach, unspecified whether malignant Procedures SandMaria Teresa Moore MD [address] [address] [facility] [address] [place] [address] ReasonCommentsTraumatx from [place], fracture,StatusReasonSpecialtyDiagnoses / ProceduresReferred By ContactReferred To Contact Diagnoses Subcutaneous hematoma Cheng Vicente DO [address] [facility], [address] [place] [address] [facility] StatusReasonSpecialtyDiagnoses / ProceduresReferred By ContactReferred To ContactAuthorized Diagnoses Carcinoid tumor of stomach, unspecified whether malignant Procedures SandMaria Teresa Moore A, MD [address] [place] [address] [facility] [address] [place] [address] ReasonCommentsChest Painchest tightness started today. Was [facility] for hematoma to his back.StatusReasonSpecialtyDiagnoses / ProceduresReferred By ContactReferred To Contact Diagnoses Chest pain Back, MD Lion [address] [place] [address] [facility] StatusReasonSpecialtyDiagnoses / ProceduresReferred By ContactReferred To Contact Diagnoses Coronary artery disease, occlusive Chest pain and abnormal stress test Tunde Pino MD [address] [facility] [address] [place] [address] [facility] ReasonCommentsOtherlt scapular region spontaneous hemotoma while pumpiong gas AnxietyReasonCommentsConsultPD cath placementSpecialtyDiagnoses / Procedures Referred By ContactReferred To ContactGeneral Surgery Diagnoses End stage renal disease (HCC) Gracie Miller MD [address] [place] [address] [facility] Gles[facility] [address] [facility] [address]th [place] [address] Referral IDStatusReasonStart DateExpiration DateVisits RequestedVisits [id number] Review Specialty Services Required/Patient's Best Interest [id number]-ofDn cath placementReasonComments Follow-upPD cath insertionReasonOnset DateCommentsMedication Zvtiul7406/21/2024 ReasonCommentsGroin SwellingSpecialtyDiagnoses / ProceduresReferred By Contact Referred To Contact Diagnoses Fluid retention Groin swelling r/o peritoneal leak Referral IDStatusReasonStart DateExpiration DateVisits RequestedVisits [id number] DateCommentsPhase II Cardiac Rehab06/27/2024 SpecialtyDiagnoses / ProceduresReferred By ContactReferred To Contact Diagnoses End stage renal disease (HCC) End stage renal disease (HCC) [N18.6] Procedures [place] INTRO CATH DIALYSIS CIRCUIT DX ANGRPH FLUOR S&I [place] ARVEN ANAST OPN UPR ARM CEPHALIC VEIN TRPOS [place] CRTJ ARVEN FSTL XCP DIR ARVEN ANAST NONAUTOG GRF UPPER EXTREMITY AV FISTULA VS. AV GRAFT CREATION UPPER EXTREMITY AV FISTULA VS. 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 Benign essential HTN SOB (shortness of breath) Procedures Echo (TTE) complete (PRN contrast/bubble/strain/3D) [place] ECHO TTHRC R-T 2D W/WOM-MODE COMPL SPEC&COLR D [place] TTE W OR WO FOL WCON,DOPPLER Abdirizak Oro MD [address] [place] [address] Referral IDStatusReasonStart DateExpiration DateVisits RequestedVisits [id number]/6/202411/6/202511 Care Teams (unrecognized sec tion and content) Team MemberRelationshipSpecialtyStart DateEnd Date Back, MD Lion [address] [place] [address] PCP - General06/08/13Team MemberRelationshipSpecialtyStart DateEnd Date Back, MD Lion [address] [place] [address] PCP - General7/Team MemberRelationshipSpecialtyStart DateEnd Date Back, MD Lion [address] [place] [address] PCP - General7/2513Team MemberRelationshipSpecialtyStart DateEnd Date Back, MD Lion [address] [place] [address] PCP - General7/25Team MemberRelationshipSpecialtyStart DateEnd Date Back, MD Lion [address] [place] [address] PCP - General7/Team MemberRelationshipSpecialtyStart DateEnd Date Back, MD Lion [address] [place] [address] PCP - General7/25Team MemberRelationshipSpecialtyStart DateEnd Date Back, MD Lion [address] [place] [address] PCP - General7/2513Team MemberRelationshipSpecialtyStart DateEnd Date Back, MD Lion [address] [place] [address] PCP - General7/2513Team MemberRelationshipSpecialtyStart DateEnd Date Back, MD Lion [address] [id number] PCP - General7/2513Team MemberRelationshipSpecialtyStart DateEnd Date Back, MD Lion [address] [id number] PCP - General7/25Team MemberRelationshipSpecialtyStart DateEnd Date Back, MD Lion [address] [id number] PCP - General7/2513Team MemberRelationshipSpecialtyStart DateEnd Date Back, MD Lion [address] [id number] PCP - General7/2513Team MemberRelationshipSpecialtyStart DateEnd Date Back, MD Lion [address] [id number] PCP - General7/2513Team MemberRelationshipSpecialtyStart DateEnd Date Back, MD Lion [address] [id number] PCP - General7/2513Team MemberRelationshipSpecialtyStart DateEnd Date Back, MD Lion [address] [id number] PCP - General7/2513Team MemberRelationshipSpecialtyStart DateEnd Date Back, MD Lion [address] [id number] PCP - General7/2513Team MemberRelationshipSpecialtyStart DateEnd Date Back, MD Lion [address] [id number] PCP - General7/25/13Team MemberRelationshipSpecialtyStart DateEnd Date Back, MD Lion [address] [id number] PCP - General7/2513Team MemberRelationshipSpecialtyStart DateEnd Date Back, MD Lion [address] [id number] PCP - General06/08/13Team MemberRelationshipSpecialtyStart DateEnd Date Back, MD Lion [address] [facility], [id number] PCP - General06/08/13Team MemberRelationshipSpecialtyStart DateEnd Date Back, MD Lion [address] [facility], [id number] PCP - General06/08/13Team MemberRelationshipSpecialtyStart DateEnd Date Back, MD Lion [address] [facility], [place] [address] PCP - General06/08/13Team MemberRelationshipSpecialtyStart DateEnd Date Back, MD Lion [address] [id number] PCP - GeneralInternal Medicine03/22/24 Gracie Miller MD [address] [place] [address] Referring PhysicianNephrology03/22/24Team MemberRelationshipSpecialtyStart DateEnd Date Back, MD Lion [address] [id number] PCP - GeneralInternal Medicine03/22/24 Gracie Miller MD [address] [place] [address] Referring PhysicianNephrology03/22/24Team MemberRelationshipSpecialtyStart DateEnd Date Back, MD Lion [address] [place] [address] PCP - GeneralInternal Medicine03/22/24 Gracie Miller MD [address] [place] [address] Referring PhysicianNephrology03/22/24Team MemberRelationshipSpecialtyStart DateEnd Date Back, MD Lion [address] [place] [address] PCP - General06/08/13Te MemberRelationshipSpecialtyStart DateEnd Date Back, MD Lion [address] [place] [address] PCP - GeneralInternal Medicine03/22/24 Gracie Miller MD [address] [place] [address] Referring PhysicianNephrology03/22/24Team MemberRelationshipSpecialtyStart DateEnd Date Back, MD Lion [address] [place] [address] PCP - GeneralInternal Medicine03/22/24 Gracie Miller MD [address] [place] [address] Referring PhysicianNephrology03/22/24Team MemberRelationshipSpecialtyStart DateEnd Date Back, MD Lion [address] [place] [address] PCP - General06/08/13Team MemberRelationshipSpecialtyStart DateEnd Date Back, MD Lion [address] [place] [address] PCP - General06/08/13Team MemberRelationshipSpecialtyStart DateEnd Date Back, MD Lion [address] [id number] PCP - GeneralInternal Medicine03/22/24 Gracie Miller MD [address] [place] [address] Referring PhysicianNephrology03/22/24Team MemberRelationshipSpecialtyStart DateEnd Date Back, MD Lion [address] [place], [place] [id number] PCP - GeneralInternal Medicine03/22/24 Gracie Miller MD [address] [place] [address] Referring PhysicianNephrology03/22/24Team MemberRelationshipSpecialtyStart DateEnd Date Back, MD Lion [address] [id number] PCP - GeneralInternal Medicine03/22/24 Gracie Miller MD [address] [place] [address] Referring PhysicianNephrology03/22/24Team MemberRelationshipSpecialtyStart DateEnd Date Back, MD Lion [address] [place] [address] PCP - GeneralInternal Medicine03/22/24 Gracie Miller MD [address] [place] [address] Referring PhysicianNephrology03/22/24Team MemberRelationshipSpecialtyStart DateEnd Date Back, MD Lion [address] [place] [address] PCP - General06/08/13Team MemberRelationshipSpecialtyStart DateEnd Date Back, MD Lion [address] [place] [address] PCP - General06/08/13Team MemberRelationshipSpecialtyStart DateEnd Date Back, MD Lion [address] [place] [address] PCP - General06/08/13Team MemberRelationshipSpecialtyStart DateEnd Date Back, MD Lion [address] [place] [address] PCP - General06/08/13Team MemberRelationshipSpecialtyStart DateEnd Date Back, MD Lion [address] [place] [address] PCP - General06/08/13Team MemberRelationshipSpecialtyStart DateEnd Date Back, MD Lion [address] [place] [address] PCP - General06/08/13Team MemberRelationshipSpecialtyStart DateEnd Date Back, MD Lion [address] [facility], [id number] PCP - General7/2513Team MemberRelationshipSpecialtyStart DateEnd Date Back, MD Lion [address] [facility] [place] [address] PCP - General7/2513Team MemberRelationshipSpecialtyStart DateEnd Date Back, MD Lion [address] [facility], [id number] PCP - General7/2513Team MemberRelationshipSpecialtyStart DateEnd Date Back, MD Lion [address] [facility], [id number] PCP - General7/2513Team MemberRelationshipSpecialtyStart DateEnd Date Back, MD Lion [address] [facility], [id number] PCP - General7/2513Team MemberRelationshipSpecialtyStart DateEnd Date Back, MD Lion [address] [facility], [id number] PCP - General7/2513Team MemberRelationshipSpecialtyStart DateEnd Date Back, MD Lion [address] [facility], [id number] PCP - General7/25/13Team MemberRelationshipSpecialtyStart DateEnd Date Back, MD Lion [address] [facility], [id number] PCP - General7/25/13Team MemberRelationshipSpecialtyStart DateEnd Date Back, MD Lion [address] [place] [address] PCP - General06/08/13Team MemberRelationshipSpecialtyStart DateEnd Date Back, MD Lion [address] [place] [address] PCP - General06/08/13Team MemberRelationshipSpecialtyStart DateEnd Date Back, MD Lion [address] [place] [address] PCP - General06/08/13Team MemberRelationshipSpecialtyStart DateEnd Date Back, MD Lion [address] [place] [address] PCP - General06/08/13Team MemberRelationshipSpecialtyStart DateEnd Date Back, MD Lion [address] [place] [address] PCP - General06/08/13Team MemberRelationshipSpecialtyStart DateEnd Date Back, MD Lion [address] [place] [address] PCP - GeneralInternal Medicine03/22/24 Gracie Miller MD [facility] [place] [place] [address] Referring PhysicianNephrology03/22/24Team MemberRelationshipSpecialtyStart DateEnd Date Back, MD Lion [address] [place] [address] PCP - GeneralInternal Medicine03/22/24 Gracie Miller MD [address] [place] [address] Referring PhysicianNephrology03/22/24 (unrecognized sect ion and content) No Status Records FoundNo Status Records FoundNo Status Records FoundNo Status Records FoundNo Status Records FoundNo Status Records Found INFORMATION SOURCE (unrecogn ized section and content) DATE CREATED AUTHOR 12/05/2023 [facility] DATE CREATED AUTHOR AUTHOR'S ORGANIZ ATION 06/14/2024 [facility] DATE CREATED AUTHOR AUTHOR'S ORGANIZ ATION 06/22/2025 [facility] DATE CREATED AUTHOR AUTHOR'S ORGANIZ ATION 08/24/2025 [facility] DATE CREATED AUTHOR AUTHOR'S ORGANIZ ATION 09/01/2025 [facility] DATE CREATED AUTHOR AUTHOR'S ORGANIZ ATION 09/27/2025 [facility] Scheduled Active and Recently Administ ered [...] Beckford RN) * 1100 (Restarted - Provider: Tlaia Beckford RN) * 1102 (Paused - Provider: [...] Beckford RN) * 1313 (Restarted - Provider: Talai Beckford RN) * 1324 (Paused - Provider: [...] (Given - Provider: Kyung Herman APRN - COKE CRUSHER OPERATOR) lidocaine PF 1 % injection (CANCELED) PRN, [...] 75 mg, Oral, DAILY, First dose on [place] 02/15/25 at 0900, Until Discontinued dianeal lo-nader [...] give peritoneal dose send patient empty to chemistry lab instructor.) * 1850 (Not Given - Provider: Valeria [...] NPO) * 220 (Given - Provider: Jermaine Nesbitt, RN) * 0831 (Given - Provider: [...] No bolus. Decrease infusion by 1 units/kg/hr. [id number] secs No bolus. Decrease infusion by 2units/kg/hr. [...] Duffy RN - Comment: pt went to chemistry lab instructor with hep gtt on, cameback with it [...] No bolus. Decrease infusion by 1 units/kg/hr. [id number] secs No bolus. Decrease infusion by 2 [...] resume rate. 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, physician(cardiology)re-ordered heparin gtt [...] RN - Comment: FOR [facility] PROCEDURE) Medication Order02/12/[id number]//12/2024 0.9 % sodium chloride infusion IntraVENous, at [...] for injection by adding 1 mL of welt beater-supplied sterile diluent or sterile water for injection [...] BE BASED ON THE PRIMARY CLINICAL RECORDS. [employer] provides no warranty or guarantee of the accuracy or completeness of information in this document.
[2025-10-01 19:07] LABS: Lactate/Lactic Acid 6.0 mmol/L (0.4-2.0)
[2025-10-01] MEDS: MIDODRINE HCL 5 MG TABLET 10 MG PO (19:14)
[2025-10-01] MEDS: PIPERACILLIN SODIUM/TAZOBACTAM 4.5 GM in 0.9 % SODIUM CHLORIDE 50 ML IV (19:14)
[2025-10-01 19:18] LABS: Basophils Abs Manual 0.00 10^3/uL (0.00-0.10); Basophils Percent Manual 0.0 % (0.2-2.0); Eosinophils Absolute Manual 0.16 10^3/uL (0.00-0.70); Eosinophils Percent Manual 1.0 % (0.9-7.0); Lymphocytes Absolute Manual 0.33 10^3/uL (1.20-3.80); Lymphocytes Percent Manual 2.0 % (20.5-60.0); Monocytes Absolute Manual 1.68 10^3/uL (0.30-0.80); Monocytes Percent Manual 10.0 % (1.7-12.0); Segmented Neut Absolute Manual 14.61 10^3/uL (1.4-6.5); Segmented Neutrophils % Manual 87.0 (43.0-75.0)
[2025-10-01 22:03] LABS: Lactate/Lactic Acid 3.0 mmol/L (0.4-2.0)
[2025-10-01] MEDS: HYDROCODONE/ACET 5-325 MG TABLET 1 TAB PO (22:18)
--- NOTE | 2025-10-01 22:40 | PC.NURSE ---
This RN has spent a great deal of time with this patient and his . I have been in the room assisting the patient with repositioning multiple times, I have been listening to his medical history with his , I have gone over his results with her from this visit. Dr. Briceño has been in the room and gone over his extensive medical history. I have checked manual blood pressures and blood sugars to ensure appropriate care. Gone over his medication list with his , ensured he was able to have his home evening medications administered by her. Patient's did drain his peritoneal dialysis fluid here in the ED- she reported to me that she got out the exact amount that she put in at home. She wanted me to ask Dr. Briceño if he wanted to culture any of this fluid, he stated that he did not want to at this time, so patient's discarded of the entire amount of fluid. Patient has been very uncomfortable and restless during his entire stay in the ED, Dr. Briceño was asked for pain medication for the patient, and due to his low BP's, the patient was given one [place] 5-325 in order to keep his BP from dropping any lower. IV fluids are maintained at 100 ml/hr.
[2025-10-02] VITALS (70 sets, daily range): BP systolic 71–104; BP diastolic 34–67; PULSE 93–112; O2SAT 71–99
== END 2025-10-02 08:51 | disposition short-term general hospital (02) ==
PROVIDERS: Emergency Medicine; Emergency Provider Internal Medicine; PCP Internal Medicine
DX: L03.311 Cellulitis of abdominal wall (principal); R53.1 Weakness; I95.9 Hypotension, unspecified; E87.20 Acidosis, unspecified; R79.89 Other specified abnormal findings of blood chemistry; Z99.2 Dependence on renal dialysis; S31.109A Unspecified open wound of abdominal wall, unspecified quadrant without penetration into peritoneal cavity, initial encounter; Z95.2 Presence of prosthetic heart valve; I25.10 Atherosclerotic heart disease of native coronary artery without angina pectoris; I25.2 Old myocardial infarction; E11.9 Type 2 diabetes mellitus without complications
CPT/HCPCS: 36415; 71045; 80053; 83605; 84484; 85007; 85025; 85027; 85610; 85652; 86140; 87040; 93005; 96361; 96365; 96366; 99285; J2543